=== PATIENT | male | born 1960 | race Hispanic/Latino ===

== ENCOUNTER 2017-10-28 05:05 | Emergency (ER) | payer OTHER ==
--- OUTSIDE RECORDS SUMMARY | 2017-10-28 05:07 | XMS REPORT | Clinical Summary ---
:[address] [facility] Address [address] [place] [address] Phone Care Team Providers Name Role Phone Unavailable Primary Care Provider Unavailable Allergies No Known Allergies Current Medications Prescription Sig. Disp. Refills Start Date End Date Status levothyroxine Take 50 mcg by Active (SYNTHROID, mouth Every LEVOTHROID) 50 MCG morning on an tablet empty stomach. atorvastatin Take 1 tablet (20 30 tablet 0 10/01/2016 10/01/2017 (LIPITOR) 20 MG mg total) by mouth tablet nightly. budesonide Take 2 mLs (0.5 mg 60 mL 0 10/01/2016 10/01/2017 (PULMICORT) 0.5 mg/2 total) by mL nebulizer nebulization 2 solution (two) times daily. bumetanide (BUMEX) 2 Take 1 tablet (2 30 tablet 0 10/01/2016 10/01/2017 MG tablet mg total) by mouth daily. ipratropium-albutero Take 3 mLs by 90 ampule 0 10/01/2016 09/26/2017 l (DUO-NEB) 0.5 mg-3 nebulization 4 mg(2.5 mg base)/3 mL (four) times daily nebulizer solution for 360 days. carvedilol (COREG) Take 1 tablet 60 tablet 0 10/01/2016 10/01/2017 3.125 MG tablet (3.125 mg total) by mouth 2 (two) times daily with breakfast and dinner. Active Problems Problem Noted Date CHF (congestive heart failure), NYHA class III, acute on chronic, 10/03/2016 diastolic (HCC) Hypotension 09/24/2016 Hypovolemia 09/24/2016 TR (tricuspid regurgitation) 09/23/2016 Right ventricular dysfunction 09/23/2016 Acute pulmonary insufficiency following thoracic surgery (HCC) 09/23/2016 Acute blood loss as cause of postoperative anemia 09/23/2016 S/P tricuspid valve replacement 09/23/2016 Pulmonary hyperinflation 09/11/2016 Pulmonary regurgitation 09/11/2016 Tricuspid regurgitation 09/11/2016 Thrombocytopenia (HCC) 09/06/2016 Acute congestive heart failure (HCC) 09/06/2016 Community acquired bacterial pneumonia 09/06/2016 Acute respiratory insufficiency 09/06/2016 Acute kidney injury (HCC) 09/06/2016 Hyperkalemia 09/06/2016 Atrial fibrillation (HCC) 09/06/2016 Macrocytic anemia 09/06/2016 Coronary artery disease involving [place] heart without angina pectoris 2016 Non morbid obesity 09/06/2016 Chest pain, unspecified type 09/05/2016 Social History Tobacco Use Types Packs/Day Years Used Date Unknown If Ever Smoked Alcohol Use Drinks/Week oz/Week Comments Yes Sex Assigned at Date Recorded Not on file Last Filed Vital Signs Not on file Plan of Treatment Not on file Implants Implanted Type Area Senior Materials Scientist Device Expiration Model / Identifier Date Serial / Lot Patch Vasc [place] 1.65mm 1x6in [id number] - [id number] Graft/Patc N/A: [id number] / Implanted: Qty: 1 on 09/23/2016 by Adam Sullivan MD Chest BARD: PERIPHERAL / VASC [id number] Valve Mitrl [place] Ii 33mm - [id number] Valves N/A: [employer]:STRUCT 02/17 [id number] / Implanted: Qty: 1 on 09/23/2016 by Adam Sullivan MD Chest URAL HEART [id number] / Results ARRYTHMIA IMPLANT REPORT - SCAN (03/05/2017 7:40 AM)Only the most recent of2 resultswithin the time period is included.after 10/27/2016
--- OUTSIDE RECORDS SUMMARY | 2017-10-28 05:12 | XMS REPORT ---
:1960 Author Organization [facility] Address [address] [place] [address] Dr. Powers [address] [place] [id number] Care Team Providers Name Role Phone INGAABILIO Unavailable Unavailable Problems This patient has no known problems. Allergies, Adverse Reactions, Alerts This patient has no known allergies or adverse reactions. Medications This patient has no known medications. Results Test Description Test Time Test Comments Text Results Atomic Results Result Comments POCT-GLUCOSE METER 2016-10-03 12:36:00 Test Item Value Reference Range Comments POC-GLUCOSE METER (BEAKER) (test 121 mg/dL 70-110 TESTED AT [address] amik=8627) [facility] [address] POCT-GLUCOSE [id number] 12:00:00 Test Item Value Reference Range Comments POC-GLUCOSE METER (BEAKER) 118 mg/dL 70-110 TESTED AT [address] (test gzfb=1152) [facility] [address] CBC W/PLT COUNT & AUTO [id number] 11:55:00 Test Item Value Reference Range Comments WHITE BLOOD CELL COUNT (BEAKER) (test ijjf=852) 8.9 K/ L 4.0-10.0 RED BLOOD CELL COUNT (BEAKER) (test yvoz=805) 2.79 M/ L 4.20-5.80 HEMOGLOBIN (BEAKER) (test vwjo=123) 9.2 GM/DL 13.0-16.8 HEMATOCRIT (BEAKER) (test ztvw=492) 27.1 % 40.0-50.0 MEAN CORPUSCULAR VOLUME (BEAKER) (test knpi=171) 97.1 fL 82.0-98.0 MEAN CORPUSCULAR HEMOGLOBIN (BEAKER) (test 33.1 pg 27.0-33.0 vodi=609) MEAN CORPUSCULAR HEMOGLOBIN CONC (BEAKER) (test 34.1 GM/DL 32.0-36.0 ddor=022) RED CELL DISTRIBUTION WIDTH (BEAKER) (test 15.5 % 10.3-14.2 ogwe=800) PLATELET COUNT (BEAKER) (test jswl=710) 29 K/CU MM 150-430 MEAN PLATELET VOLUME (BEAKER) (test zhks=027) 9.4 fL 6.5-10.5 NUCLEATED RED BLOOD CELLS (BEAKER) (test 0 /100 WBC 0-0 xspp=677) NEUTROPHILS RELATIVE PERCENT (BEAKER) (test 87 % yglq=944) LYMPHOCYTES RELATIVE PERCENT (BEAKER) (test 5 % mwmp=817) MONOCYTES RELATIVE PERCENT (BEAKER) (test 8 % mbmh=709) EOSINOPHILS RELATIVE PERCENT (BEAKER) (test 1 % drrx=898) BASOPHILS RELATIVE PERCENT (BEAKER) (test 0 % rmlo=930) NEUTROPHILS ABSOLUTE COUNT (BEAKER) (test 7.73 K/ L 1.80-8.00 tjch=319) LYMPHOCYTES ABSOLUTE COUNT (BEAKER) (test 0.42 K/ L 1.48-4.50 vkdo=295) MONOCYTES ABSOLUTE COUNT (BEAKER) (test eovh=406) 0.73 K/ L 0.00-1.30 EOSINOPHILS ABSOLUTE COUNT (BEAKER) (test 0.05 K/ L 0.00-0.50 hhyl=332) BASOPHILS ABSOLUTE COUNT (BEAKER) (test boxp=580) 0.00 K/ L 0.00-0.20 0.00POCT-GLUCOSE [id number] 07:54:00 Test Item Value Reference Range Comments POC-GLUCOSE METER (BEAKER) 94 mg/dL 70-110 TESTED AT [address] (test qyns=6408) [facility] [address] POCT-GLUCOSE [id number] 22:14:00 Test Item Value Reference Range Comments POC-GLUCOSE METER (BEAKER) 221 mg/dL 70-110 TESTED AT [address] (test tuce=1124) [facility] [address] POCT-GLUCOSE [id number] 18:29:00 Test Item Value Reference Range Comments POC-GLUCOSE METER (BEAKER) 144 mg/dL 70-110 TESTED AT [address] (test gvkj=6991) [facility] [address] POCT-GLUCOSE [id number] 12:57:00 Test Item Value Reference Range Comments POC-GLUCOSE METER (BEAKER) 195 mg/dL 70-[address] [facility] [address] [facility] (test euye=7184) [place] [address] CBC W/PLT COUNT & AUTO [id number] 08:36:00 Test Item Value Reference Range Comments WHITE BLOOD CELL COUNT (BEAKER) (test nehv=248) 11.1 K/ L 4.0-10.0 RED BLOOD CELL COUNT (BEAKER) (test ygha=293) 2.68 M/ L 4.20-5.80 HEMOGLOBIN (BEAKER) (test xgse=363) 9.0 GM/DL 13.0-16.8 HEMATOCRIT (BEAKER) (test uszf=588) 26.5 % 40.0-50.0 MEAN CORPUSCULAR VOLUME (BEAKER) (test mdmx=627) 98.7 fL 82.0-98.0 MEAN CORPUSCULAR HEMOGLOBIN (BEAKER) (test 33.5 pg 27.0-33.0 fejd=868) MEAN CORPUSCULAR HEMOGLOBIN CONC (BEAKER) (test 34.0 GM/DL 32.0-36.0 yhkj=054) RED CELL DISTRIBUTION WIDTH (BEAKER) (test 15.3 % 10.3-14.2 qsha=838) PLATELET COUNT (BEAKER) (test ievx=653) 30 K/CU MM 150-430 MEAN PLATELET VOLUME (BEAKER) (test ljlm=614) 8.7 fL 6.5-10.5 NUCLEATED RED BLOOD CELLS (BEAKER) (test 0 /100 WBC 0-0 scfg=146) NEUTROPHILS RELATIVE PERCENT (BEAKER) (test 85 % fgzt=189) LYMPHOCYTES RELATIVE PERCENT (BEAKER) (test 5 % pffn=973) MONOCYTES RELATIVE PERCENT (BEAKER) (test 9 % cvks=376) EOSINOPHILS RELATIVE PERCENT (BEAKER) (test 0 % kjzo=213) BASOPHILS RELATIVE PERCENT (BEAKER) (test 0 % bmjn=727) NEUTROPHILS ABSOLUTE COUNT (BEAKER) (test 9.48 K/ L 1.80-8.00 jqdb=688) LYMPHOCYTES ABSOLUTE COUNT (BEAKER) (test 0.56 K/ L 1.48-4.50 xqnj=554) MONOCYTES ABSOLUTE COUNT (BEAKER) (test kzeh=209) 1.05 K/ L 0.00-1.30 EOSINOPHILS ABSOLUTE COUNT (BEAKER) (test 0.05 K/ L 0.00-0.50 qflq=444) BASOPHILS ABSOLUTE COUNT (BEAKER) (test uegj=779) 0.00 K/ L 0.00-0.20 0.00POCT-GLUCOSE [id number] 08:26:00 Test Item Value Reference Range Comments POC-GLUCOSE METER (BEAKER) 107 mg/dL 70-[address] [facility] [address] [facility] (test hflw=1356) [place] [address] PROTHROMBIN [id number] 05:20:00 Test Item Value Reference Range Comments PROTIME (BEAKER) (test kojy=187) 17.0 seconds 11.7-14.7 INR (BEAKER) (test wgmz=947) 1.4 <=5.9 RECOMMENDED COUMADIN/WARFARIN INR THERAPY RANGESSTANDARD DOSE: 2.0 - 3.0 Includes: PROPHYLAXIS forvenous thrombosis, systemic embolization; TREATMENT for venous thrombosis and/or pulmonary embolus.HIGH RISK: Target INR is 2.5-3.5 for patients with mechanical heart valves.[id number] 05:20:00 Test Item Value Reference Range Comments PARTIAL THROMBOPLASTIN TIME (BEAKER) (test 27.8 seconds 22.5-36.0 jcfb=653) [id number] 05:20:00 Test Item Value Reference Range Comments FIBRINOGEN LEVEL (BEAKER) (test okwg=459) 183 mg/dl 225-434 B-TYPE NATRIURETIC FACTOR (BNP)2016-09-30 05:11:00 Test Item Value Reference Range Comments B-TYPE NATRIURETIC PEPTIDE (BEAKER) (test 256 pg/mL 0-100 pmou=686) BASIC METABOLIC [id number] 05:09:00 Test Item Value Reference Range Comments SODIUM (BEAKER) (test 133 meq/L 136-145 znks=053) POTASSIUM (BEAKER) (test 3.5 meq/L 3.5-5.1 fxtr=556) CHLORIDE (BEAKER) (test 93 meq/L 98-107 dgpt=046) CO2 (BEAKER) (test 30 meq/L 22-29 mefc=126) BLOOD UREA NITROGEN 40 mg/dL 7-21 (BEAKER) (test clfo=559) CREATININE (BEAKER) (test 0.85 mg/dL 0.57-1.25 chah=210) GLUCOSE RANDOM (BEAKER) 143 mg/dL 70-105 (test xpbe=457) CALCIUM (BEAKER) (test 8.5 mg/dL 8.4-10.2 idvg=680) EGFR (BEAKER) (test mL/min/1.73 sq m INSUFFICIENT CLINICAL DATA vweh=6814) TO CALCULATE ESTIMATED GFR. POCT-GLUCOSE [id number] 21:25:00 Test Item Value Reference Range Comments POC-GLUCOSE METER (BEAKER) 139 mg/dL 70-110 TESTED AT [address] (test cyqx=2001) [facility] [address] POCT-GLUCOSE [id number] 17:50:00 Test Item Value Reference Range Comments POC-GLUCOSE METER (BEAKER) 173 mg/dL 70-110 TESTED AT [address] (test nkzc=0233) [facility] [address] POCT-GLUCOSE [id number] 08:56:00 Test Item Value Reference Range Comments POC-GLUCOSE METER (BEAKER) 155 mg/dL 70-110 TESTED AT [address] (test limm=7544) [facility] [address] CBC W/PLT COUNT & AUTO [id number] 04:54:00 Test Item Value Reference Range Comments WHITE BLOOD CELL COUNT (BEAKER) (test wafp=735) 8.7 K/ L 4.0-10.0 RED BLOOD CELL COUNT (BEAKER) (test vypl=979) 2.72 M/ L 4.20-5.80 HEMOGLOBIN (BEAKER) (test anur=622) 9.4 GM/DL 13.0-16.8 HEMATOCRIT (BEAKER) (test kwhw=253) 27.0 % 40.0-50.0 MEAN CORPUSCULAR VOLUME (BEAKER) (test dkyr=171) 99.4 fL 82.0-98.0 MEAN CORPUSCULAR HEMOGLOBIN (BEAKER) (test 34.6 pg 27.0-33.0 ltgi=423) MEAN CORPUSCULAR HEMOGLOBIN CONC (BEAKER) (test 34.8 GM/DL 32.0-36.0 ahqz=711) RED CELL DISTRIBUTION WIDTH (BEAKER) (test 15.3 % 10.3-14.2 gbme=478) PLATELET COUNT (BEAKER) (test kpvg=439) 24 K/CU MM 150-430 MEAN PLATELET VOLUME (BEAKER) (test bpzb=620) 9.9 fL 6.5-10.5 NUCLEATED RED BLOOD CELLS (BEAKER) (test 0 /100 WBC 0-0 jhwr=041) NEUTROPHILS RELATIVE PERCENT (BEAKER) (test 89 % xgfu=813) LYMPHOCYTES RELATIVE PERCENT (BEAKER) (test 4 % xadi=994) MONOCYTES RELATIVE PERCENT (BEAKER) (test 8 % tjep=028) EOSINOPHILS RELATIVE PERCENT (BEAKER) (test 0 % iunt=129) BASOPHILS RELATIVE PERCENT (BEAKER) (test 0 % xpmf=742) NEUTROPHILS ABSOLUTE COUNT (BEAKER) (test 7.72 K/ L 1.80-8.00 nmow=297) LYMPHOCYTES ABSOLUTE COUNT (BEAKER) (test 0.31 K/ L 1.48-4.50 zjqw=282) MONOCYTES ABSOLUTE COUNT (BEAKER) (test wuhd=240) 0.68 K/ L 0.00-1.30 EOSINOPHILS ABSOLUTE COUNT (BEAKER) (test 0.02 K/ L 0.00-0.50 vnbj=290) BASOPHILS ABSOLUTE COUNT (BEAKER) (test zbtn=672) 0.00 K/ L 0.00-0.20 0.00POCT-GLUCOSE [id number] 22:11:00 Test Item Value Reference Range Comments POC-GLUCOSE METER (BEAKER) 295 mg/dL 70-110 TESTED AT [address] (test qfum=8042) [facility] [address] POCT-GLUCOSE [id number] 16:50:00 Test Item Value Reference Range Comments POC-GLUCOSE METER (BEAKER) 149 mg/dL 70-110 TESTED AT [address] (test zhnn=4630) [facility] [address] [id number] 15:04:00 Test Item Value Reference Range Comments POTASSIUM (BEAKER) (test yree=891) 4.0 meq/L 3.5-5.1 [id number] 15:04:00 Test Item Value Reference Range Comments MAGNESIUM (BEAKER) (test xjbm=254) 2.7 mg/dL 1.6-2.6 POCT-GLUCOSE [id number] 12:34:00 Test Item Value Reference Range Comments POC-GLUCOSE METER (BEAKER) 128 mg/dL 70-110 TESTED AT [address] (test iipe=1299) [facility] [address] POCT-GLUCOSE [id number] 11:39:00 Test Item Value Reference Range Comments POC-GLUCOSE METER (BEAKER) 120 mg/dL 70-110 TESTED AT [address] (test zmiq=0473) [place] [id number] POCT-GLUCOSE [id number] 07:51:00 Test Item Value Reference Range Comments POC-GLUCOSE METER (BEAKER) 87 mg/dL 70-110 TESTED AT [address] (test kgep=7504) [facility] [address] BLOOD GAS, [id number] 05:59:00 Test Item Value Reference Range Comments PH ARTERIAL (BEAKER) (test imxu=101) 7.41 7.35-7.45 PCO2 ARTERIAL (BEAKER) (test opvh=383) 60 mmHg 35-45 PO2 ARTERIAL (BEAKER) (test tlmr=881) 179 mmHg 80-90 O2 SATURATION ARTERIAL (BEAKER) (test xppq=145) 99.2 % 96.0-97.0 HCO3 ARTERIAL (BEAKER) (test rowp=243) 38 mmol/L 21-29 BASE EXCESS ARTERIAL (BEAKER) (test auxx=599) 11.6 mmol/L -2.0-3.0 PATIENT TEMPERATURE (BEAKER) (test xhry=4148) 36.5 C FIO2 (BEAKER) (test lydq=1880) 50.0 % CBC W/PLT COUNT & AUTO [id number] 05:40:00 Test Item Value Reference Range Comments WHITE BLOOD CELL COUNT (BEAKER) (test plpv=477) 9.1 K/ L 4.0-10.0 RED BLOOD CELL COUNT (BEAKER) (test nmev=577) 2.62 M/ L 4.20-5.80 HEMOGLOBIN (BEAKER) (test sibe=105) 8.7 GM/DL 13.0-16.8 HEMATOCRIT (BEAKER) (test hsld=041) 25.9 % 40.0-50.0 MEAN CORPUSCULAR VOLUME (BEAKER) (test ntfl=953) 98.8 fL 82.0-98.0 MEAN CORPUSCULAR HEMOGLOBIN (BEAKER) (test 33.0 pg 27.0-33.0 lzlt=773) MEAN CORPUSCULAR HEMOGLOBIN CONC (BEAKER) (test 33.4 GM/DL 32.0-36.0 xmth=676) RED CELL DISTRIBUTION WIDTH (BEAKER) (test 15.9 % 10.3-14.2 jsyw=731) PLATELET COUNT (BEAKER) (test lelk=285) 30 K/CU MM 150-430 MEAN PLATELET VOLUME (BEAKER) (test lnla=890) 9.4 fL 6.5-10.5 NUCLEATED RED BLOOD CELLS (BEAKER) (test 0 /100 WBC 0-0 hwlc=264) NEUTROPHILS RELATIVE PERCENT (BEAKER) (test 87 % ytvs=279) LYMPHOCYTES RELATIVE PERCENT (BEAKER) (test 4 % iekz=532) MONOCYTES RELATIVE PERCENT (BEAKER) (test 9 % krdm=674) EOSINOPHILS RELATIVE PERCENT (BEAKER) (test 0 % ajcv=915) BASOPHILS RELATIVE PERCENT (BEAKER) (test 0 % bbro=429) NEUTROPHILS ABSOLUTE COUNT (BEAKER) (test 7.93 K/ L 1.80-8.00 bcbf=248) LYMPHOCYTES ABSOLUTE COUNT (BEAKER) (test 0.32 K/ L 1.48-4.50 niid=106) MONOCYTES ABSOLUTE COUNT (BEAKER) (test gudj=124) 0.81 K/ L 0.00-1.30 EOSINOPHILS ABSOLUTE COUNT (BEAKER) (test 0.01 K/ L 0.00-0.50 soiv=790) BASOPHILS ABSOLUTE COUNT (BEAKER) (test tyvj=086) 0.01 K/ L 0.00-0.20 0.00BASI METABOLIC [id number] 04:53:00 Test Item Value Reference Range Comments SODIUM (BEAKER) (test 135 meq/L 136-145 zxax=932) POTASSIUM (BEAKER) (test 4.2 meq/L 3.5-5.1 rbds=486) CHLORIDE (BEAKER) (test 92 meq/L 98-107 aytq=749) CO2 (BEAKER) (test 36 meq/L 22-29 xtuq=644) BLOOD UREA NITROGEN 48 mg/dL 7-21 (BEAKER) (test cagk=588) CREATININE (BEAKER) (test 0.89 mg/dL 0.57-1.25 mfst=501) GLUCOSE RANDOM (BEAKER) 105 mg/dL 70-105 (test mifa=275) CALCIUM (BEAKER) (test 8.4 mg/dL 8.4-10.2 haqh=434) EGFR (BEAKER) (test mL/min/1.73 sq m INSUFFICIENT CLINICAL DATA txyc=4322) TO CALCULATE ESTIMATED GFR. Check Serum Magnesium level 2 hours after IV magnesium replacement.[id number] 04:43:00 Test Item Value Reference Range Comments POTASSIUM (BEAKER) (test clgg=085) 4.2 meq/L 3.5-5.1 Check Serum Magnesium level 2 hours after IV magnesium replacement.[id number] -[id number] 04:43:00 Test Item Value Reference Range Comments MAGNESIUM (BEAKER) (test bkom=371) 2.5 mg/dL 1.6-2.6 Check Serum Magnesium level 2 hours after IV magnesium replacement.HEPATIC FUNCTION [id number] 04:43:00 Test Item Value Reference Range Comments TOTAL PROTEIN (BEAKER) (test pvxk=829) 6.4 gm/dL 6.0-8.3 ALBUMIN (BEAKER) (test rlzl=7102) 3.4 g/dL 3.5-5.0 BILIRUBIN TOTAL (BEAKER) (test lncb=658) 1.6 mg/dL 0.2-1.2 BILIRUBIN DIRECT (BEAKER) (test dgqb=224) 0.9 mg/dL 0.1-0.5 ALKALINE PHOSPHATASE (BEAKER) (test ltom=875) 100 U/L 40-150 AST (SGOT) (BEAKER) (test rfna=669) 27 U/L 5-34 ALT (SGPT) (BEAKER) (test lzmg=206) 27 U/L 6-55 Check Serum Magnesium level 2 hours after IV magnesium replacement.PROTHROMBIN [id number] 04:33:00 Test Item Value Reference Range Comments PROTIME (BEAKER) (test crbl=378) 16.6 seconds 11.7-14.7 INR (BEAKER) (test jtvg=089) 1.4 <=5.9 RECOMMENDED COUMADIN/WARFARIN INR THERAPY RANGESSTANDARD DOSE: 2.0 - 3.0 Includes: PROPHYLAXIS forvenous thrombosis, systemic embolization; TREATMENT for venous thrombosis and/or pulmonary embolus.HIGH RISK: Target INR is 2.5-3.5 for patients with mechanical heart valves.[id number] 01:32:00 Test Item Value Reference Range Comments POTASSIUM (BEAKER) (test zdxp=976) 4.0 meq/L 3.5-5.1 Check Serum Magnesium level 2 hours after IV magnesium replacement.[id number] -04-09 01:32:00 Test Item Value Reference Range Comments MAGNESIUM (BEAKER) (test omey=764) 2.6 mg/dL 1.6-2.6 Check Serum Magnesium level 2 hours after IV magnesium replacement.POCT-GLUCOSE [id number] 01:04:00 Test Item Value Reference Range Comments POC-GLUCOSE METER (BEAKER) 142 mg/dL 70-110 TESTED AT [address] (test quev=3349) [place] [address] [id number] 18:48:00 Test Item Value Reference Range Comments POTASSIUM (BEAKER) (test yhqw=478) 4.5 meq/L 3.5-5.1 Check Serum Magnesium level 2 hours after IV magnesium replacement.[id number] -04-08 18:48:00 Test Item Value Reference Range Comments MAGNESIUM (BEAKER) (test vglm=092) 2.5 mg/dL 1.6-2.6 Check Serum Magnesium level 2 hours after IV magnesium replacement.CALCIUM, [id number] 18:33:00 Test Item Value Reference Range Comments CALCIUM IONIZED (BEAKER) (test boyh=815) 1.13 mmol/L 1.12-1.27 PH, BLOOD (BEAKER) (test swba=2113) 7.39 Check serum Ionized Calcium level after 4 hours after IV Calcium replacement.POCT-GLUCOSE [id number] 17:19:00 Test Item Value Reference Range Comments POC-GLUCOSE METER (BEAKER) 169 mg/dL 70-110 TESTED AT [address] (test dnmq=9852) [place] [address] [id number] 13:12:00 Test Item Value Reference Range Comments POTASSIUM (BEAKER) (test kmva=347) 3.6 meq/L 3.5-5.1 Check Serum Magnesium level 2 hours after IV magnesium replacement.[id number] -04-08 13:12:00 Test Item Value Reference Range Comments MAGNESIUM (BEAKER) (test wnxk=825) 2.1 mg/dL 1.6-2.6 Check Serum Magnesium level 2 hours after IV magnesium replacement.POCT-GLUCOSE [id number] 12:25:00 Test Item Value Reference Range Comments POC-GLUCOSE METER (BEAKER) 149 mg/dL 70-110 TESTED AT [address] (test rzfi=8704) [place] [address] CALCIUM, [id number] 12:12:00 Test Item Value Reference Range Comments CALCIUM IONIZED (BEAKER) (test tbbp=309) 1.07 mmol/L 1.12-1.27 PH, BLOOD (BEAKER) (test hqck=5119) 7.40 Check serum Ionized Calcium level after 4 hours after IV Calcium replacement.POCT-GLUCOSE [id number] 07:51:00 Test Item Value Reference Range Comments POC-GLUCOSE METER (BEAKER) 92 mg/dL 70-110 TESTED AT [address] (test uazd=8923) [place] [id number] BLOOD GAS, [id number] 05:03:00 Test Item Value Reference Range Comments PH ARTERIAL (BEAKER) (test hten=075) 7.47 7.35-7.45 PCO2 ARTERIAL (BEAKER) (test wiwc=789) 58 mmHg 35-45 PO2 ARTERIAL (BEAKER) (test wzyk=056) 186 mmHg 80-90 O2 SATURATION ARTERIAL (BEAKER) (test advz=731) 99.3 % 96.0-97.0 HCO3 ARTERIAL (BEAKER) (test ykgc=196) 41 mmol/L 21-29 BASE EXCESS ARTERIAL (BEAKER) (test yyei=268) 15.6 mmol/L -2.0-3.0 PATIENT TEMPERATURE (BEAKER) (test rgmi=4121) 37.0 C FIO2 (BEAKER) (test mhar=3378) 50.0 % CBC W/PLT COUNT & AUTO [id number] 04:18:00 Test Item Value Reference Range Comments WHITE BLOOD CELL COUNT (BEAKER) (test dczr=035) 11.8 K/ L 4.0-10.0 RED BLOOD CELL COUNT (BEAKER) (test oakp=816) 2.65 M/ L 4.20-5.80 HEMOGLOBIN (BEAKER) (test wrui=438) 8.7 GM/DL 13.0-16.8 HEMATOCRIT (BEAKER) (test kivh=203) 26.2 % 40.0-50.0 MEAN CORPUSCULAR VOLUME (BEAKER) (test gnka=887) 98.7 fL 82.0-98.0 MEAN CORPUSCULAR HEMOGLOBIN (BEAKER) (test 32.8 pg 27.0-33.0 ukcc=974) MEAN CORPUSCULAR HEMOGLOBIN CONC (BEAKER) (test 33.2 GM/DL 32.0-36.0 jjqj=197) RED CELL DISTRIBUTION WIDTH (BEAKER) (test 15.7 % 10.3-14.2 tnus=608) PLATELET COUNT (BEAKER) (test czpa=357) 42 K/CU MM 150-430 MEAN PLATELET VOLUME (BEAKER) (test yevj=738) 8.2 fL 6.5-10.5 NUCLEATED RED BLOOD CELLS (BEAKER) (test 0 /100 WBC 0-0 vgga=243) NEUTROPHILS RELATIVE PERCENT (BEAKER) (test 90 % llxu=095) LYMPHOCYTES RELATIVE PERCENT (BEAKER) (test 3 % wfrt=374) MONOCYTES RELATIVE PERCENT (BEAKER) (test 8 % irru=079) EOSINOPHILS RELATIVE PERCENT (BEAKER) (test 0 % cvmd=574) BASOPHILS RELATIVE PERCENT (BEAKER) (test 0 % uhjo=155) NEUTROPHILS ABSOLUTE COUNT (BEAKER) (test 10.60 K/ L 1.80-8.00 utlp=102) LYMPHOCYTES ABSOLUTE COUNT (BEAKER) (test 0.32 K/ L 1.48-4.50 ssbc=725) MONOCYTES ABSOLUTE COUNT (BEAKER) (test rdxd=180) 0.91 K/ L 0.00-1.30 EOSINOPHILS ABSOLUTE COUNT (BEAKER) (test 0.01 K/ L 0.00-0.50 fayi=179) BASOPHILS ABSOLUTE COUNT (BEAKER) (test colg=780) 0.00 K/ L 0.00-0.20 0.00BASI METABOLIC [id number] 04:12:00 Test Item Value Reference Range Comments SODIUM (BEAKER) (test 139 meq/L 136-145 ysmx=010) POTASSIUM (BEAKER) (test 3.9 meq/L 3.5-5.1 dukg=985) CHLORIDE (BEAKER) (test 92 meq/L 98-107 yepv=950) CO2 (BEAKER) (test 39 meq/L 22-29 lxlt=269) BLOOD UREA NITROGEN 44 mg/dL 7-21 (BEAKER) (test outx=617) CREATININE (BEAKER) (test 0.95 mg/dL 0.57-1.25 dbmw=607) GLUCOSE RANDOM (BEAKER) 104 mg/dL 70-105 (test vccm=765) CALCIUM (BEAKER) (test 8.7 mg/dL 8.4-10.2 kesn=575) EGFR (BEAKER) (test mL/min/1.73 sq m INSUFFICIENT CLINICAL DATA klzb=4173) TO CALCULATE ESTIMATED GFR. [id number] 04:04:00 Test Item Value Reference Range Comments POTASSIUM (BEAKER) (test ovwf=539) 3.9 meq/L 3.5-5.1 [id number] 04:04:00 Test Item Value Reference Range Comments MAGNESIUM (BEAKER) (test pzmz=204) 2.4 mg/dL 1.6-2.6 HEPATIC FUNCTION [id number] 04:04:00 Test Item Value Reference Range Comments TOTAL PROTEIN (BEAKER) (test xale=949) 6.6 gm/dL 6.0-8.3 ALBUMIN (BEAKER) (test kzag=4750) 3.5 g/dL 3.5-5.0 BILIRUBIN TOTAL (BEAKER) (test qwqz=262) 1.7 mg/dL 0.2-1.2 BILIRUBIN DIRECT (BEAKER) (test eabh=806) 0.9 mg/dL 0.1-0.5 ALKALINE PHOSPHATASE (BEAKER) (test nfdx=686) 98 U/L 40-150 AST (SGOT) (BEAKER) (test rdrg=571) 33 U/L 5-34 ALT (SGPT) (BEAKER) (test jjgz=882) 26 U/L 6-55 PROTHROMBIN [id number] 03:49:00 Test Item Value Reference Range Comments PROTIME (BEAKER) (test kihi=589) 16.3 seconds 11.7-14.7 INR (BEAKER) (test mbhl=843) 1.3 <=5.9 RECOMMENDED COUMADIN/WARFARIN INR THERAPY RANGESSTANDARD DOSE: 2.0 - 3.0 Includes: PROPHYLAXIS forvenous thrombosis, systemic embolization; TREATMENT for venous thrombosis and/or pulmonary embolus.HIGH RISK: Target INR is 2.5-3.5 for patients with mechanical heart valves.BASIC METABOLIC [id number] 00:47: 00 Test Item Value Reference Range Comments SODIUM (BEAKER) (test 137 meq/L 136-145 dlko=256) POTASSIUM (BEAKER) (test 4.0 meq/L 3.5-5.1 ympj=028) CHLORIDE (BEAKER) (test 93 meq/L 98-107 cmfx=283) CO2 (BEAKER) (test 36 meq/L 22-29 yxjy=569) BLOOD UREA NITROGEN 45 mg/dL 7-21 (BEAKER) (test rjrf=102) CREATININE (BEAKER) (test 1.03 mg/dL 0.57-1.25 omoj=142) GLUCOSE RANDOM (BEAKER) 146 mg/dL 70-105 (test lmct=042) CALCIUM (BEAKER) (test 7.9 mg/dL 8.4-10.2 dymn=371) EGFR (BEAKER) (test mL/min/1.73 sq m INSUFFICIENT CLINICAL DATA mrpj=3205) TO CALCULATE ESTIMATED GFR. Check Serum Magnesium level 2 hours after IV magnesium replacement.CBC W/PLT COUNT & AUTO [id number] 00:10:00 Test Item Value Reference Range Comments WHITE BLOOD CELL COUNT (BEAKER) (test gmko=723) 11.3 K/ L 4.0-10.0 RED BLOOD CELL COUNT (BEAKER) (test lsem=472) 2.58 M/ L 4.20-5.80 HEMOGLOBIN (BEAKER) (test ivnr=707) 8.5 GM/DL 13.0-16.8 HEMATOCRIT (BEAKER) (test mgru=960) 25.5 % 40.0-50.0 MEAN CORPUSCULAR VOLUME (BEAKER) (test lrpe=886) 99.0 fL 82.0-98.0 MEAN CORPUSCULAR HEMOGLOBIN (BEAKER) (test 32.9 pg 27.0-33.0 aatx=040) MEAN CORPUSCULAR HEMOGLOBIN CONC (BEAKER) (test 33.3 GM/DL 32.0-36.0 rcvo=589) RED CELL DISTRIBUTION WIDTH (BEAKER) (test 15.6 % 10.3-14.2 hptn=209) PLATELET COUNT (BEAKER) (test afzp=577) 40 K/CU MM 150-430 MEAN PLATELET VOLUME (BEAKER) (test lqlf=860) 8.4 fL 6.5-10.5 NUCLEATED RED BLOOD CELLS (BEAKER) (test 0 /100 WBC 0-0 aanl=084) NEUTROPHILS RELATIVE PERCENT (BEAKER) (test 90 % cjmh=857) LYMPHOCYTES RELATIVE PERCENT (BEAKER) (test 2 % ftos=755) MONOCYTES RELATIVE PERCENT (BEAKER) (test 7 % uvyf=142) EOSINOPHILS RELATIVE PERCENT (BEAKER) (test 0 % bbaw=904) BASOPHILS RELATIVE PERCENT (BEAKER) (test 1 % zvrh=719) NEUTROPHILS ABSOLUTE COUNT (BEAKER) (test 10.20 K/ L 1.80-8.00 fsky=507) LYMPHOCYTES ABSOLUTE COUNT (BEAKER) (test 0.19 K/ L 1.48-4.50 yntv=781) MONOCYTES ABSOLUTE COUNT (BEAKER) (test ruch=527) 0.83 K/ L 0.00-1.30 EOSINOPHILS ABSOLUTE COUNT (BEAKER) (test 0.01 K/ L 0.00-0.50 biio=766) BASOPHILS ABSOLUTE COUNT (BEAKER) (test vcan=029) 0.07 K/ L 0.00-0.20 0.00CALCIUM, [id number] 00:07:00 Test Item Value Reference Range Comments CALCIUM IONIZED (BEAKER) (test lceo=734) 1.06 mmol/L 1.12-1.27 PH, BLOOD (BEAKER) (test skjc=5445) 7.38 [id number] 23:53:00 Test Item Value Reference Range Comments POTASSIUM (BEAKER) (test kcfp=848) 4.1 meq/L 3.5-5.1 Check Serum Magnesium level 2 hours after IV magnesium replacement.[id number] -[id number] 23:53:00 Test Item Value Reference Range Comments MAGNESIUM (BEAKER) (test ipql=782) 2.0 mg/dL 1.6-2.6 Check Serum Magnesium level 2 hours after IV magnesium replacement.POCT-GLUCOSE [id number] 22:39:00 Test Item Value Reference Range Comments POC-GLUCOSE METER (BEAKER) 209 mg/dL 70-[address] [facility] [address] [facility] (test nfaq=4767) [facility] [address] POCT-GLUCOSE [id number] 20:00:00 Test Item Value Reference Range Comments POC-GLUCOSE METER (BEAKER) 168 mg/dL 70-[address] [facility] [address] (test fclm=4758) [facility] [address] [id number] 18:48:00 Test Item Value Reference Range Comments POTASSIUM (BEAKER) (test lelh=913) 3.9 meq/L 3.5-5.1 Check Serum Magnesium level 2 hours after IV magnesium replacement.[id number] 18:48:00 Test Item Value Reference Range Comments MAGNESIUM (BEAKER) (test aabe=481) 2.2 mg/dL 1.6-2.6 Check Serum Magnesium level 2 hours after IV magnesium replacement.[id number] -04-07 12:21:00 Test Item Value Reference Range Comments POTASSIUM (BEAKER) (test mpwz=784) 3.5 meq/L 3.5-5.1 Check Serum Magnesium level 2 hours after IV magnesium replacement.[id number] -04-07 12:21:00 Test Item Value Reference Range Comments MAGNESIUM (BEAKER) (test chnp=374) 2.2 mg/dL 1.6-2.6 Check Serum Magnesium level 2 hours after IV magnesium replacement.LACTATE DEHYDROGENASE (LDH)2016-09-26 12:08:00 Test Item Value Reference Range Comments LACTATE DEHYDROGENASE (BEAKER) (test sgoq=658) 291 U/L 125-220 [id number] 12:06:00 Test Item Value Reference Range Comments D-DIMER QUANTITATIVE (BEAKER) (test kjvl=531) 9.38 MG/L FEU <0.50 Intended Use: The D-Dimer Assay can be used to aid in the diagnosis of Deep Vein Thrombosis (DVT) and Pulmonary Embolism Disease (PED).In patients with low pre-test probability, various studies concerning STA Liatest D-dimer test have reported that with a cutoff value of 0.50 MG/L FEU, the Negative Predictive Value (NPV) regarding the exclusion of thrombosis is within 95-100% range.[id number] 11:51:00 Test Item Value Reference Range Comments FIBRINOGEN LEVEL (BEAKER) (test geiu=878) 247 mg/dl 225-434 BLOOD GAS, [id number] 11:39:00 Test Item Value Reference Range Comments PH ARTERIAL (BEAKER) (test vwbc=806) 7.44 7.35-7.45 PCO2 ARTERIAL (BEAKER) (test sixz=961) 55 mmHg 35-45 PO2 ARTERIAL (BEAKER) (test qmct=312) 101 mmHg 80-90 O2 SATURATION ARTERIAL (BEAKER) (test coge=960) 97.8 % 96.0-97.0 HCO3 ARTERIAL (BEAKER) (test lrdo=860) 37 mmol/L 21-29 BASE EXCESS ARTERIAL (BEAKER) (test yciv=985) 11.2 mmol/L -2.0-3.0 PATIENT TEMPERATURE (BEAKER) (test cpfc=2435) 36.5 C FIO2 (BEAKER) (test hehf=1554) 36.0 % HEMOGLOBIN [id number] 08:13:00 Test Item Value Reference Range Comments HEMOGLOBIN A1C (BEAKER) (test hwjr=171) 5.5 % 4.3-6.1 BLOOD GAS, [id number] 07:04:00 Test Item Value Reference Range Comments PH ARTERIAL (BEAKER) (test gptn=752) 7.38 7.35-7.45 PCO2 ARTERIAL (BEAKER) (test hhsx=028) 60 mmHg 35-45 PO2 ARTERIAL (BEAKER) (test lycq=626) 293 mmHg 80-90 O2 SATURATION ARTERIAL (BEAKER) (test tyie=776) 99.6 % 96.0-97.0 HCO3 ARTERIAL (BEAKER) (test ivpz=633) 35 mmol/L 21-29 BASE EXCESS ARTERIAL (BEAKER) (test wsrl=298) 7.9 mmol/L -2.0-3.0 PATIENT TEMPERATURE (BEAKER) (test swdu=4224) 36.5 C FIO2 (BEAKER) (test yciw=5931) 60.0 % OXYGEN SATURATION, [id number] 06:13:00 Test Item Value Reference Range Comments O2 SATURATION (MEASURED) (BEAKER) (test uolk=2886) 89.5 % [id number] 05:30:00 Test Item Value Reference Range Comments MAGNESIUM (BEAKER) (test idbi=713) 2.1 mg/dL 1.6-2.6 HEPATIC FUNCTION [id number] 05:30:00 Test Item Value Reference Range Comments TOTAL PROTEIN (BEAKER) (test semf=805) 6.4 gm/dL 6.0-8.3 ALBUMIN (BEAKER) (test dfpg=2512) 3.5 g/dL 3.5-5.0 BILIRUBIN TOTAL (BEAKER) (test jxvm=973) 1.6 mg/dL 0.2-1.2 BILIRUBIN DIRECT (BEAKER) (test agel=749) 0.9 mg/dL 0.1-0.5 ALKALINE PHOSPHATASE (BEAKER) (test nwkz=473) 86 U/L 40-150 AST (SGOT) (BEAKER) (test ddbk=919) 38 U/L 5-34 ALT (SGPT) (BEAKER) (test hoex=359) 29 U/L 6-55 BASIC METABOLIC [id number] 05:30:00 Test Item Value Reference Range Comments SODIUM (BEAKER) (test 138 meq/L 136-145 pwaj=917) POTASSIUM (BEAKER) (test 4.1 meq/L 3.5-5.1 tklp=309) CHLORIDE (BEAKER) (test 98 meq/L 98-107 zado=361) CO2 (BEAKER) (test 31 meq/L 22-29 ffsi=218) BLOOD UREA NITROGEN 46 mg/dL 7-21 (BEAKER) (test fdnf=697) CREATININE (BEAKER) (test 1.06 mg/dL 0.57-1.25 pcrd=486) GLUCOSE RANDOM (BEAKER) 128 mg/dL 70-105 (test pmof=616) CALCIUM (BEAKER) (test 8.1 mg/dL 8.4-10.2 slhy=139) EGFR (BEAKER) (test mL/min/1.73 sq m INSUFFICIENT CLINICAL DATA ionz=4423) TO CALCULATE ESTIMATED GFR. CBC W/PLT COUNT & AUTO [id number] 05:18:00 Test Item Value Reference Range Comments WHITE BLOOD CELL COUNT (BEAKER) (test tkyh=628) 13.3 K/ L 4.0-10.0 RED BLOOD CELL COUNT (BEAKER) (test uvra=949) 2.68 M/ L 4.20-5.80 HEMOGLOBIN (BEAKER) (test gbmm=301) 8.6 GM/DL 13.0-16.8 HEMATOCRIT (BEAKER) (test vkxn=938) 26.3 % 40.0-50.0 MEAN CORPUSCULAR VOLUME (BEAKER) (test lfzv=008) 98.1 fL 82.0-98.0 MEAN CORPUSCULAR HEMOGLOBIN (BEAKER) (test 32.2 pg 27.0-33.0 vnes=305) MEAN CORPUSCULAR HEMOGLOBIN CONC (BEAKER) (test 32.8 GM/DL 32.0-36.0 fjgm=820) RED CELL DISTRIBUTION WIDTH (BEAKER) (test 15.5 % 10.3-14.2 lgpj=202) PLATELET COUNT (BEAKER) (test lxzq=173) 40 K/CU MM 150-430 MEAN PLATELET VOLUME (BEAKER) (test vims=794) 8.7 fL 6.5-10.5 NUCLEATED RED BLOOD CELLS (BEAKER) (test 0 /100 WBC 0-0 fttn=652) NEUTROPHILS RELATIVE PERCENT (BEAKER) (test 91 % dmza=772) LYMPHOCYTES RELATIVE PERCENT (BEAKER) (test 2 % swcn=708) MONOCYTES RELATIVE PERCENT (BEAKER) (test 7 % qbig=855) EOSINOPHILS RELATIVE PERCENT (BEAKER) (test 0 % enfy=655) BASOPHILS RELATIVE PERCENT (BEAKER) (test 0 % iorv=838) NEUTROPHILS ABSOLUTE COUNT (BEAKER) (test 12.10 K/ L 1.80-8.00 fqof=302) LYMPHOCYTES ABSOLUTE COUNT (BEAKER) (test 0.31 K/ L 1.48-4.50 wepm=150) MONOCYTES ABSOLUTE COUNT (BEAKER) (test hrex=254) 0.87 K/ L 0.00-1.30 EOSINOPHILS ABSOLUTE COUNT (BEAKER) (test 0.01 K/ L 0.00-0.50 oder=596) BASOPHILS ABSOLUTE COUNT (BEAKER) (test ciuo=350) 0.00 K/ L 0.00-0.20 0.00PROTHROMBIN [id number] 05:07:00 Test Item Value Reference Range Comments PROTIME (BEAKER) (test vcbh=852) 16.7 seconds 11.7-14.7 INR (BEAKER) (test zvhq=140) 1.4 <=5.9 RECOMMENDED COUMADIN/WARFARIN INR THERAPY RANGESSTANDARD DOSE: 2.0 - 3.0 Includes: PROPHYLAXIS forvenous thrombosis, systemic embolization; TREATMENT for venous thrombosis and/or pulmonary embolus.HIGH RISK: Target INR is 2.5-3.5 for patients with mechanical heart valves.BLOOD GAS, [id number] 23:30:00 Test Item Value Reference Range Comments PH ARTERIAL (BEAKER) (test xqab=554) 7.33 7.35-7.45 PCO2 ARTERIAL (BEAKER) (test asto=898) 60 mmHg 35-45 PO2 ARTERIAL (BEAKER) (test qnqu=662) 169 mmHg 80-90 O2 SATURATION ARTERIAL (BEAKER) (test vyck=478) 99.0 % 96.0-97.0 HCO3 ARTERIAL (BEAKER) (test zkjq=670) 31 mmol/L 21-29 BASE EXCESS ARTERIAL (BEAKER) (test ghcn=025) 4.2 mmol/L -2.0-3.0 PATIENT TEMPERATURE (BEAKER) (test oeqd=7276) 36.5 C FIO2 (BEAKER) (test fmji=8043) 36.0 % POTASSIUM-STAT [id number] 23:07:00 Test Item Value Reference Range Comments POTASSIUM (BEAKER) (test wugp=529) 4.3 meq/L 3.6-5.5 SODIUM NA-STAT [id number] 23:07:00 Test Item Value Reference Range Comments SODIUM (BEAKER) (test maat=007) 134 meq/L 135-148 HGB/HCT (H&H) - STAT [id number] 23:07:00 Test Item Value Reference Range Comments HEMOGLOBIN (BEAKER) (test bhgs=218) 9.5 g/dL 13.0-16.8 HEMATOCRIT (BEAKER) (test qwfa=017) 28.0 % 40.0-50.0 CALCIUM, [id number] 23:06:00 Test Item Value Reference Range Comments CALCIUM IONIZED (BEAKER) (test cghy=501) 1.15 mmol/L 1.12-1.27 PH, BLOOD (BEAKER) (test prvt=1835) 7.28 POCT-GLUCOSE [id number] 21:58:00 Test Item Value Reference Range Comments POC-GLUCOSE METER (BEAKER) 202 mg/dL 70-110 TESTED AT [address] (test fgoq=1043) [facility] [address] POCT-GLUCOSE [id number] 16:44:00 Test Item Value Reference Range Comments POC-GLUCOSE METER (BEAKER) 220 mg/dL 70-110 TESTED AT [address] (test hbkm=6106) [facility] [address] PERIPHERAL BLOOD SMEAR - HOLD [id number] 16:10:00 Test Item Value Reference Range Comments PERIPHERAL SMEAR SAVE (BEAKER) (test lnlq=8130) saved POCT-GLUCOSE [id number] 11:01:00 Test Item Value Reference Range Comments POC-GLUCOSE METER (BEAKER) 152 mg/dL 70-[address] [facility] [address] [facility] (test fcsm=3325) [facility] [address] POCT-GLUCOSE [id number] 07:16:00 Test Item Value Reference Range Comments POC-GLUCOSE METER (BEAKER) 125 mg/dL 70-110 TESTED AT [address] (test ihxw=0939) [facility] [address] BASIC METABOLIC [id number] 03:47:00 Test Item Value Reference Range Comments SODIUM (BEAKER) (test 136 meq/L 136-145 timj=699) POTASSIUM (BEAKER) (test 4.0 meq/L 3.5-5.1 hfbm=353) CHLORIDE (BEAKER) (test 101 meq/L 98-107 pbpd=699) CO2 (BEAKER) (test 27 meq/L 22-29 lnfh=053) BLOOD UREA NITROGEN 46 mg/dL 7-21 (BEAKER) (test ozso=669) CREATININE (BEAKER) (test 1.28 mg/dL 0.57-1.25 rfhc=766) GLUCOSE RANDOM (BEAKER) 133 mg/dL 70-105 (test kasr=318) CALCIUM (BEAKER) (test 8.4 mg/dL 8.4-10.2 trqq=075) EGFR (BEAKER) (test mL/min/1.73 sq m INSUFFICIENT CLINICAL DATA exqb=3919) TO CALCULATE ESTIMATED GFR. [id number] 03:46:00 Test Item Value Reference Range Comments MAGNESIUM (BEAKER) (test bkxs=201) 2.2 mg/dL 1.6-2.6 HEPATIC FUNCTION [id number] 03:46:00 Test Item Value Reference Range Comments TOTAL PROTEIN (BEAKER) (test hpzf=490) 6.0 gm/dL 6.0-8.3 ALBUMIN (BEAKER) (test ljjt=1112) 3.4 g/dL 3.5-5.0 BILIRUBIN TOTAL (BEAKER) (test awgq=747) 1.7 mg/dL 0.2-1.2 BILIRUBIN DIRECT (BEAKER) (test utrl=126) 1.0 mg/dL 0.1-0.5 ALKALINE PHOSPHATASE (BEAKER) (test snmt=244) 72 U/L 40-150 AST (SGOT) (BEAKER) (test wrus=170) 46 U/L 5-34 ALT (SGPT) (BEAKER) (test rify=240) 32 U/L 6-55 [id number] 03:45:00 Test Item Value Reference Range Comments PARTIAL THROMBOPLASTIN TIME (BEAKER) (test 34.2 seconds 22.5-36.0 qccx=091) PROTHROMBIN [id number] 03:44:00 Test Item Value Reference Range Comments PROTIME (BEAKER) (test gfic=046) 18.3 seconds 11.7-14.7 INR (BEAKER) (test hgvs=464) 1.5 <=5.9 RECOMMENDED COUMADIN/WARFARIN INR THERAPY RANGESSTANDARD DOSE: 2.0 - 3.0 Includes: PROPHYLAXIS forvenous thrombosis, systemic embolization; TREATMENT for venous thrombosis and/or pulmonary embolus.HIGH RISK: Target INR is 2.5-3.5 for patients with mechanical heart valves.CBC W/PLT COUNT & AUTO [id number] 03:42:00 Test Item Value Reference Range Comments WHITE BLOOD CELL COUNT (BEAKER) (test srjl=462) 17.8 K/ L 4.0-10.0 RED BLOOD CELL COUNT (BEAKER) (test txok=621) 2.81 M/ L 4.20-5.80 HEMOGLOBIN (BEAKER) (test dmpw=301) 8.9 GM/DL 13.0-16.8 HEMATOCRIT (BEAKER) (test bikf=842) 27.4 % 40.0-50.0 MEAN CORPUSCULAR VOLUME (BEAKER) (test acch=455) 97.5 fL 82.0-98.0 MEAN CORPUSCULAR HEMOGLOBIN (BEAKER) (test 31.7 pg 27.0-33.0 jvjk=480) MEAN CORPUSCULAR HEMOGLOBIN CONC (BEAKER) (test 32.6 GM/DL 32.0-36.0 msbn=408) RED CELL DISTRIBUTION WIDTH (BEAKER) (test 14.8 % 10.3-14.2 roxi=997) PLATELET COUNT (BEAKER) (test raxj=487) 56 K/CU MM 150-430 MEAN PLATELET VOLUME (BEAKER) (test kanq=452) 8.6 fL 6.5-10.5 NUCLEATED RED BLOOD CELLS (BEAKER) (test 0 /100 WBC 0-0 jxno=674) NEUTROPHILS RELATIVE PERCENT (BEAKER) (test 89 % qzqz=718) LYMPHOCYTES RELATIVE PERCENT (BEAKER) (test 3 % jdcj=580) MONOCYTES RELATIVE PERCENT (BEAKER) (test 8 % indj=394) EOSINOPHILS RELATIVE PERCENT (BEAKER) (test 0 % zotc=801) BASOPHILS RELATIVE PERCENT (BEAKER) (test 0 % smxm=402) NEUTROPHILS ABSOLUTE COUNT (BEAKER) (test 15.90 K/ L 1.80-8.00 tlfi=068) LYMPHOCYTES ABSOLUTE COUNT (BEAKER) (test 0.51 K/ L 1.48-4.50 sonb=469) MONOCYTES ABSOLUTE COUNT (BEAKER) (test jocl=951) 1.38 K/ L 0.00-1.30 EOSINOPHILS ABSOLUTE COUNT (BEAKER) (test 0.01 K/ L 0.00-0.50 jhho=688) BASOPHILS ABSOLUTE COUNT (BEAKER) (test kros=040) 0.00 K/ L 0.00-0.20 0.00OXYGEN SATURATION, [id number] 03:33:00 Test Item Value Reference Range Comments O2 SATURATION (MEASURED) (BEAKER) (test gzid=9311) 68.8 % POCT-GLUCOSE [id number] 21:40:00 Test Item Value Reference Range Comments POC-GLUCOSE METER (BEAKER) 181 mg/dL 70-110 TESTED AT [address] (test ypyb=3797) [facility] [address] BASIC METABOLIC [id number] 21:06:00 Test Item Value Reference Range Comments SODIUM (BEAKER) (test 136 meq/L 136-145 hocd=664) POTASSIUM (BEAKER) (test 4.1 meq/L 3.5-5.1 rtpj=265) CHLORIDE (BEAKER) (test 102 meq/L 98-107 yvuw=271) CO2 (BEAKER) (test 22 meq/L 22-29 wtoc=374) BLOOD UREA NITROGEN 40 mg/dL 7-21 (BEAKER) (test wwxq=138) CREATININE (BEAKER) (test 1.38 mg/dL 0.57-1.25 hhgn=457) GLUCOSE RANDOM (BEAKER) 207 mg/dL 70-105 (test lrwc=511) CALCIUM (BEAKER) (test 8.6 mg/dL 8.4-10.2 zxfx=740) EGFR (BEAKER) (test mL/min/1.73 sq m INSUFFICIENT CLINICAL DATA hjuz=3185) TO CALCULATE ESTIMATED GFR. [id number] 21:04:00 Test Item Value Reference Range Comments PHOSPHORUS (BEAKER) (test fjlk=919) 5.4 mg/dL 2.3-4.7 [id number] 21:04:00 Test Item Value Reference Range Comments MAGNESIUM (BEAKER) (test yidr=222) 2.2 mg/dL 1.6-2.6 CALCIUM, [id number] 20:47:00 Test Item Value Reference Range Comments CALCIUM IONIZED (BEAKER) (test btcd=223) 1.13 mmol/L 1.12-1.27 PH, BLOOD (BEAKER) (test wvqq=3122) 7.38 POCT-GLUCOSE [id number] 17:51:00 Test Item Value Reference Range Comments POC-GLUCOSE METER (BEAKER) 173 mg/dL 70-110 TESTED AT [address] (test ytqm=7897) [facility] [address] LACTIC ACID, ARTERIAL, WHOLE [id number] 13:02:00 Test Item Value Reference Range Comments LACTATE BLOOD ARTERIAL (2) 1.4 mmol/L 0.5-2.2 Specimen slightly hemolyzed (BEAKER) (test jgjb=5395) Effective 10/24/2015: Units/Reference Range ChangeNew: 0.5-2.2 mmol/L Previous: 5 -20 mg/dLSpecimen slightly ictericOXYGEN SATURATION, [id number] 07:40:00 Test Item Value Reference Range Comments O2 SATURATION (MEASURED) (BEAKER) (test fopg=1702) 71.2 % BLOOD GAS, [id number] 07:39:00 Test Item Value Reference Range Comments PH ARTERIAL (BEAKER) (test koam=557) 7.42 7.35-7.45 PCO2 ARTERIAL (BEAKER) (test iyzu=410) 42 mmHg 35-45 PO2 ARTERIAL (BEAKER) (test mryb=306) 126 mmHg 80-90 O2 SATURATION ARTERIAL (BEAKER) (test dxey=267) 98.6 % 96.0-97.0 HCO3 ARTERIAL (BEAKER) (test jont=860) 27 mmol/L 21-29 BASE EXCESS ARTERIAL (BEAKER) (test hnfs=720) 1.8 mmol/L -2.0-3.0 PATIENT TEMPERATURE (BEAKER) (test ujcs=1082) 36.3 C FIO2 (BEAKER) (test vpjk=5692) 36.0 % [id number] 05:56:00 Test Item Value Reference Range Comments ACTIVATED CLOTTING TIME 131 sec TESTED AT [address] [facility] (test elcd=231) [place] [id number] 05:56:00 Test Item Value Reference Range Comments ACTIVATED CLOTTING TIME > sec OUTSIDE MEASURING RANGETESTED AT ([facility]) (test opfo=319) [place] [address] [id number] 05:56:00 Test Item Value Reference Range Comments ACTIVATED CLOTTING TIME 441 sec TESTED AT [address] [facility] (test gttl=985) [place] [address] [id number] 05:56:00 Test Item Value Reference Range Comments ACTIVATED CLOTTING TIME 533 sec TESTED AT [address] [facility] (test kxlz=006) [place] [address] [id number] 05:56:00 Test Item Value Reference Range Comments ACTIVATED CLOTTING TIME 528 sec TESTED AT [address] [facility] (test ejmv=368) [place] [address] [id number] 05:56:00 Test Item Value Reference Range Comments ACTIVATED CLOTTING TIME 415 sec TESTED AT [address] [facility] (test mzfe=486) [place] [address] [id number] 05:56:00 Test Item Value Reference Range Comments ACTIVATED CLOTTING TIME 301 sec TESTED AT [address] [facility] (test gatx=358) [place] [address] POCT-GLUCOSE [id number] 05:45:00 Test Item Value Reference Range Comments POC-GLUCOSE METER (BEAKER) 116 mg/dL 70-[address] [facility] [address] [facility] (test gnut=8664) [facility] [address] BASIC METABOLIC [id number] 02:50:00 Test Item Value Reference Range Comments SODIUM (BEAKER) (test 139 meq/L 136-145 cqgd=585) POTASSIUM (BEAKER) (test 4.5 meq/L 3.5-5.1 hiih=732) CHLORIDE (BEAKER) (test 105 meq/L 98-107 jouu=841) CO2 (BEAKER) (test 23 meq/L 22-29 rtob=299) BLOOD UREA NITROGEN 42 mg/dL 7-21 (BEAKER) (test pgdn=994) CREATININE (BEAKER) (test 1.28 mg/dL 0.57-1.25 ozxo=888) GLUCOSE RANDOM (BEAKER) 121 mg/dL 70-105 (test bgpf=298) CALCIUM (BEAKER) (test 9.3 mg/dL 8.4-10.2 uwoy=909) EGFR (BEAKER) (test mL/min/1.73 sq m INSUFFICIENT CLINICAL DATA pejf=4564) TO CALCULATE ESTIMATED GFR. Specimen slightly ictericHEPATIC FUNCTION [id number] 02:42:00 Test Item Value Reference Range Comments TOTAL PROTEIN (BEAKER) (test nqjf=570) 5.8 gm/dL 6.0-8.3 ALBUMIN (BEAKER) (test tile=7025) 3.3 g/dL 3.5-5.0 BILIRUBIN TOTAL (BEAKER) (test helh=238) 2.2 mg/dL 0.2-1.2 BILIRUBIN DIRECT (BEAKER) (test vcim=403) 1.2 mg/dL 0.1-0.5 ALKALINE PHOSPHATASE (BEAKER) (test kwcj=169) 67 U/L 40-150 AST (SGOT) (BEAKER) (test ktgl=911) 49 U/L 5-34 ALT (SGPT) (BEAKER) (test nfcj=208) 30 U/L 6-55 Specimen slightly ictericCBC W/PLT COUNT & AUTO [id number] 02:34 :00 Test Item Value Reference Range Comments WHITE BLOOD CELL COUNT (BEAKER) (test rfyp=767) 23.7 K/ L 4.0-10.0 RED BLOOD CELL COUNT (BEAKER) (test onnz=413) 3.08 M/ L 4.20-5.80 HEMOGLOBIN (BEAKER) (test qfna=199) 9.7 GM/DL 13.0-16.8 HEMATOCRIT (BEAKER) (test huwv=016) 30.0 % 40.0-50.0 MEAN CORPUSCULAR VOLUME (BEAKER) (test tjic=447) 97.4 fL 82.0-98.0 MEAN CORPUSCULAR HEMOGLOBIN (BEAKER) (test 31.4 pg 27.0-33.0 gzym=791) MEAN CORPUSCULAR HEMOGLOBIN CONC (BEAKER) (test 32.2 GM/DL 32.0-36.0 lerd=868) RED CELL DISTRIBUTION WIDTH (BEAKER) (test 15.4 % 10.3-14.2 wlnc=889) PLATELET COUNT (BEAKER) (test bsbh=522) 128 K/CU MM 150-430 MEAN PLATELET VOLUME (BEAKER) (test tigx=600) 7.7 fL 6.5-10.5 NUCLEATED RED BLOOD CELLS (BEAKER) (test 0 /100 WBC 0-0 pnaj=184) NEUTROPHILS RELATIVE PERCENT (BEAKER) (test 87 % ypac=386) LYMPHOCYTES RELATIVE PERCENT (BEAKER) (test 3 % yxtc=684) MONOCYTES RELATIVE PERCENT (BEAKER) (test 9 % wyax=423) EOSINOPHILS RELATIVE PERCENT (BEAKER) (test 0 % nbat=794) BASOPHILS RELATIVE PERCENT (BEAKER) (test 1 % wicm=565) NEUTROPHILS ABSOLUTE COUNT (BEAKER) (test 20.70 K/ L 1.80-8.00 rmtc=805) LYMPHOCYTES ABSOLUTE COUNT (BEAKER) (test 0.71 K/ L 1.48-4.50 xuop=505) MONOCYTES ABSOLUTE COUNT (BEAKER) (test 2.09 K/ L 0.00-1.30 eplv=962) EOSINOPHILS ABSOLUTE COUNT (BEAKER) (test 0.02 K/ L 0.00-0.50 tdgd=457) BASOPHILS ABSOLUTE COUNT (BEAKER) (test 0.12 K/ L 0.00-0.20 xqmf=097) [id number] 02:27:00 Test Item Value Reference Range Comments FIBRINOGEN LEVEL (BEAKER) (test xlda=757) 225 mg/dl 225-434 [id number] 02:27:00 Test Item Value Reference Range Comments PARTIAL THROMBOPLASTIN TIME (BEAKER) (test 33.6 seconds 22.5-36.0 lrii=344) PROTHROMBIN [id number] 02:26:00 Test Item Value Reference Range Comments PROTIME (BEAKER) (test ohuj=904) 18.3 seconds 11.7-14.7 INR (BEAKER) (test xbss=222) 1.5 <=5.9 RECOMMENDED COUMADIN/WARFARIN INR THERAPY RANGESSTANDARD DOSE: 2.0 - 3.0 Includes: PROPHYLAXIS forvenous thrombosis, systemic embolization; TREATMENT for venous thrombosis and/or pulmonary embolus.HIGH RISK: Target INR is 2.5-3.5 for patients with mechanical heart valves.[id number] 00:45:00 Test Item Value Reference Range Comments MAGNESIUM (BEAKER) (test pajz=301) 2.4 mg/dL 1.6-2.6 POCT-GLUCOSE [id number] 00:03:00 Test Item Value Reference Range Comments POC-GLUCOSE METER (BEAKER) 136 mg/dL 70-110 TESTED AT [address] (test bjcc=6021) [place] [id number] POCT-GLUCOSE [id number] 22:33:00 Test Item Value Reference Range Comments POC-GLUCOSE METER (BEAKER) 136 mg/dL 70-110 TESTED AT [address] (test qptl=4726) [place] [id number] (MANUAL DIFFERENTIAL)[id number] 22:03:00 Test Item Value Reference Range Comments NEUTROPHILS - REL (DIFF) (BEAKER) (test 85 % bnit=6727) LYMPHOCYTES - REL (DIFF) (BEAKER) (test 5 % wrtf=9023) MONOCYTES - REL (DIFF) (BEAKER) (test hftt=5637) 7 % BANDS - REL (DIFF) (BEAKER) (test cesz=1050) 3 % 0-10 NEUTROPHILS - ABS (DIFF) (BEAKER) (test 24.06 K/ L 1.80-8.00 bygf=3718) LYMPHOCYTES - ABS (DIFF) (BEAKER) (test 1.42 K/ L 1.48-4.50 tsnz=7316) MONOCYTES - ABS (DIFF) (BEAKER) (test lfuz=1499) 1.98 K/ L 0.00-1.30 BANDS-ABS (DIFF) (BEAKER) (test veoo=8290) 0.8 K/ L 0.0-0.8 TOTAL COUNTED (BEAKER) (test sxpk=8391) 100 BANDS + SEGMENTED NEUTROPHILS (BEAKER) (test 24.90 rszf=3753) WBC MORPHOLOGY (BEAKER) (test vvfg=013) Normal PLT MORPHOLOGY (BEAKER) (test ryhv=122) Normal RBC MORPHOLOGY (BEAKER) (test defb=747) Normal CBC W/PLT COUNT & AUTO [id number] 22:02:00 Test Item Value Reference Range Comments WHITE BLOOD CELL COUNT (BEAKER) (test bair=125) 28.3 K/ L 4.0-10.0 RED BLOOD CELL COUNT (BEAKER) (test kxsg=401) 3.35 M/ L 4.20-5.80 HEMOGLOBIN (BEAKER) (test lfma=709) 10.5 GM/DL 13.0-16.8 HEMATOCRIT (BEAKER) (test tgku=409) 32.3 % 40.0-50.0 MEAN CORPUSCULAR VOLUME (BEAKER) (test lvpq=007) 96.6 fL 82.0-98.0 MEAN CORPUSCULAR HEMOGLOBIN (BEAKER) (test 31.3 pg 27.0-33.0 ifkq=446) MEAN CORPUSCULAR HEMOGLOBIN CONC (BEAKER) (test 32.4 GM/DL 32.0-36.0 ktfz=415) RED CELL DISTRIBUTION WIDTH (BEAKER) (test 14.9 % 10.3-14.2 huhg=324) PLATELET COUNT (BEAKER) (test hdqr=327) 139 K/CU MM 150-430 MEAN PLATELET VOLUME (BEAKER) (test mufp=513) 7.9 fL 6.5-10.5 NUCLEATED RED BLOOD CELLS (BEAKER) (test 0 /100 WBC 0-0 yded=174) 0.000.550.000.000.000.00LACTIC ACID, ARTERIAL, WHOLE [id number] 21:40:00 Test Item Value Reference Range Comments LACTATE BLOOD ARTERIAL (2) (BEAKER) (test 1.3 mmol/L 0.5-2.2 vxcw=4574) Effective 10/24/2015: Units/Reference Range ChangeNew: 0.5-2.2 mmol/L Previous: 5 -20 mg/dLSpecimen slightly ictericPROTHROMBIN TIME/[id number] 21:34:00 Test Item Value Reference Range Comments PROTIME (BEAKER) (test gzbo=893) 18.7 seconds 11.7-14.7 INR (BEAKER) (test uerd=485) 1.6 <=5.9 RECOMMENDED COUMADIN/WARFARIN INR THERAPY RANGESSTANDARD DOSE: 2.0 - 3.0 Includes: PROPHYLAXIS forvenous thrombosis, systemic embolization; TREATMENT for venous thrombosis and/or pulmonary embolus.HIGH RISK: Target INR is 2.5-3.5 for patients with mechanical heart valves.[id number] 21:34:00 Test Item Value Reference Range Comments PARTIAL THROMBOPLASTIN TIME (BEAKER) (test 34.3 seconds 22.5-36.0 qxln=134) [id number] 21:28:00 Test Item Value Reference Range Comments POTASSIUM (BEAKER) (test upzk=362) 4.6 meq/L 3.5-5.1 POCT-GLUCOSE [id number] 21:27:00 Test Item Value Reference Range Comments POC-GLUCOSE METER (BEAKER) 150 mg/dL 70-110 TESTED AT [address] (test hgxt=3211) [facility] [id number] BLOOD GAS, [id number] 21:17:00 Test Item Value Reference Range Comments PH ARTERIAL (BEAKER) (test mcyn=916) 7.38 7.35-7.45 PCO2 ARTERIAL (BEAKER) (test cwss=710) 49 mmHg 35-45 PO2 ARTERIAL (BEAKER) (test mjcu=143) 102 mmHg 80-90 O2 SATURATION ARTERIAL (BEAKER) (test ztax=263) 97.5 % 96.0-97.0 HCO3 ARTERIAL (BEAKER) (test lunt=992) 28 mmol/L 21-29 BASE EXCESS ARTERIAL (BEAKER) (test vnnu=697) 2.5 mmol/L -2.0-3.0 PATIENT TEMPERATURE (BEAKER) (test pssr=2224) 37.1 C FIO2 (BEAKER) (test xgfd=3053) 40.0 % 30 minutes s/p bipap [id number] 20:29:00 Test Item Value Reference Range Comments POTASSIUM (BEAKER) (test yhqe=582) 4.6 meq/L 3.5-5.1 Check Serum Potassium level 2 hours after oral potassium replacement completed or 30 min after intravenous potassium replacement.BLOOD GAS, [id number] 20:06:00 Test Item Value Reference Range Comments PH ARTERIAL (BEAKER) (test rtjc=731) 7.28 7.35-7.45 PCO2 ARTERIAL (BEAKER) (test vphq=556) 67 mmHg 35-45 PO2 ARTERIAL (BEAKER) (test wutt=841) 80 mmHg 80-90 O2 SATURATION ARTERIAL (BEAKER) (test gava=789) 94.0 % 96.0-97.0 HCO3 ARTERIAL (BEAKER) (test zbzs=463) 31 mmol/L 21-29 BASE EXCESS ARTERIAL (BEAKER) (test ovtb=205) 2.8 mmol/L -2.0-3.0 PATIENT TEMPERATURE (BEAKER) (test uuyv=8696) 37.0 C FIO2 (BEAKER) (test ilkh=8409) 36.0 % POTASSIUM-STAT [id number] 17:23:00 Test Item Value Reference Range Comments POTASSIUM (BEAKER) (test rutm=030) 4.2 meq/L 3.6-5.5 GLUCOSE-STAT [id number] 17:23:00 Test Item Value Reference Range Comments GLUCOSE RANDOM (BEAKER) (test gprx=442) 133 mg/dL 70-110 BLOOD GAS, [id number] 17:23:00 Test Item Value Reference Range Comments PH ARTERIAL (BEAKER) (test sxvb=890) 7.44 7.35-7.45 PCO2 ARTERIAL (BEAKER) (test kzoa=730) 42 mmHg 35-45 PO2 ARTERIAL (BEAKER) (test menu=860) 107 mmHg 80-90 O2 SATURATION ARTERIAL (BEAKER) (test vekf=620) 98.1 % 96.0-97.0 HCO3 ARTERIAL (BEAKER) (test ldgh=706) 28 mmol/L 21-29 BASE EXCESS ARTERIAL (BEAKER) (test pcfy=542) 3.3 mmol/L -2.0-3.0 PATIENT TEMPERATURE (BEAKER) (test svpq=0899) 36.4 C FIO2 (BEAKER) (test nsrf=4149) 40.0 % CBC W/PLT COUNT & AUTO [id number] 14:50:00 Test Item Value Reference Range Comments WHITE BLOOD CELL COUNT (BEAKER) (test jjxz=634) 31.6 K/ L 4.0-10.0 RED BLOOD CELL COUNT (BEAKER) (test ypln=101) 3.12 M/ L 4.20-5.80 HEMOGLOBIN (BEAKER) (test ptmk=806) 10.6 GM/DL 13.0-16.8 HEMATOCRIT (BEAKER) (test rxqs=388) 30.0 % 40.0-50.0 MEAN CORPUSCULAR VOLUME (BEAKER) (test uxpc=058) 96.3 fL 82.0-98.0 MEAN CORPUSCULAR HEMOGLOBIN (BEAKER) (test 33.9 pg 27.0-33.0 jfto=285) MEAN CORPUSCULAR HEMOGLOBIN CONC (BEAKER) (test 35.2 GM/DL 32.0-36.0 eggs=891) RED CELL DISTRIBUTION WIDTH (BEAKER) (test 14.6 % 10.3-14.2 shwe=452) PLATELET COUNT (BEAKER) (test zhcx=355) 124 K/CU MM 150-430 MEAN PLATELET VOLUME (BEAKER) (test zzae=385) 7.8 fL 6.5-10.5 NUCLEATED RED BLOOD CELLS (BEAKER) (test 0 /100 WBC 0-0 vyrm=822) 0.000.550.000.000.680.000.000.000.00(MANUAL DIFFERENTIAL)2016-09-23 14:50:00 Test Item Value Reference Range Comments NEUTROPHILS - REL (DIFF) (BEAKER) (test 86 % imay=9440) LYMPHOCYTES - REL (DIFF) (BEAKER) (test 1 % jimi=1942) MONOCYTES - REL (DIFF) (BEAKER) (test qnfx=2334) 1 % BANDS - REL (DIFF) (BEAKER) (test gbwt=0253) 11 % 0-10 ATYPICAL LYMPHOCYTE - REL (DIFF) (BEAKER) (test 1 % 0-0 ezdl=009) NEUTROPHILS - ABS (DIFF) (BEAKER) (test 27.18 K/ L 1.80-8.00 pjvo=6093) LYMPHOCYTES - ABS (DIFF) (BEAKER) (test 0.32 K/ L 1.48-4.50 aies=4947) MONOCYTES - ABS (DIFF) (BEAKER) (test krbg=1399) 0.32 K/ L 0.00-1.30 BANDS-ABS (DIFF) (BEAKER) (test vler=7572) 3.5 K/ L 0.0-0.8 ATYPICAL LYMPHOCYTES - ABS (DIFF) (BEAKER) (test 0.32 K/ L 0.00-0.00 pauu=501) TOTAL COUNTED (BEAKER) (test xqxj=8469) 100 BANDS + SEGMENTED NEUTROPHILS (BEAKER) (test 30.65 yjdy=0095) WBC MORPHOLOGY (BEAKER) (test wgnl=262) Normal PLT MORPHOLOGY (BEAKER) (test nkpp=285) Normal RBC MORPHOLOGY (BEAKER) (test ftam=093) Normal [id number] 13:33:00 Test Item Value Reference Range Comments FIBRINOGEN LEVEL (BEAKER) (test mnql=430) 204 mg/dl 225-434 [id number] 13:33:00 Test Item Value Reference Range Comments PARTIAL THROMBOPLASTIN TIME (BEAKER) (test 37.7 seconds 22.5-36.0 rqeu=108) PROTHROMBIN [id number] 13:32:00 Test Item Value Reference Range Comments PROTIME (BEAKER) (test pajn=946) 20.5 seconds 11.7-14.7 INR (BEAKER) (test ozad=807) 1.8 <=5.9 RECOMMENDED COUMADIN/WARFARIN INR THERAPY RANGESSTANDARD DOSE: 2.0 - 3.0 Includes: PROPHYLAXIS forvenous thrombosis, systemic embolization; TREATMENT for venous thrombosis and/or pulmonary embolus.HIGH RISK: Target INR is 2.5-3.5 for patients with mechanical heart valves.CALCIUM, [id number] 13:15:00 Test Item Value Reference Range Comments CALCIUM IONIZED (BEAKER) (test kone=229) 1.32 mmol/L 1.12-1.27 PH, BLOOD (BEAKER) (test gevu=1412) 7.42 [id number] 13:13:00 Test Item Value Reference Range Comments MAGNESIUM (BEAKER) (test vecu=582) 2.7 mg/dL 1.6-2.6 LACTIC ACID, ARTERIAL, WHOLE [id number] 13:12:00 Test Item Value Reference Range Comments LACTATE BLOOD ARTERIAL (2) (BEAKER) (test 1.7 mmol/L 0.5-2.2 dnwa=3240) Effective 10/24/2015: Units/Reference Range ChangeNew: 0.5-2.2 mmol/L Previous: 5 -20 mg/dLBLOOD GAS, [id number] 13:08:00 Test Item Value Reference Range Comments PH ARTERIAL (BEAKER) (test xrxx=191) 7.45 7.35-7.45 PCO2 ARTERIAL (BEAKER) (test pnkc=457) 42 mmHg 35-45 PO2 ARTERIAL (BEAKER) (test wxdg=477) 97 mmHg 80-90 O2 SATURATION ARTERIAL (BEAKER) (test epez=510) 98.0 % 96.0-97.0 HCO3 ARTERIAL (BEAKER) (test wfbf=945) 29 mmol/L 21-29 BASE EXCESS ARTERIAL (BEAKER) (test umqb=746) 3.6 mmol/L -2.0-3.0 PATIENT TEMPERATURE (BEAKER) (test tsnr=0318) 34.9 C FIO2 (BEAKER) (test lytn=4662) 60.0 % SODIUM NA-STAT [id number] 13:08:00 Test Item Value Reference Range Comments SODIUM (BEAKER) (test fbxf=442) 133 meq/L 135-148 POTASSIUM-STAT [id number] 13:08:00 Test Item Value Reference Range Comments POTASSIUM (BEAKER) (test znvw=709) 3.1 meq/L 3.6-5.5 GLUCOSE-STAT [id number] 13:08:00 Test Item Value Reference Range Comments GLUCOSE RANDOM (BEAKER) (test zomi=010) 139 mg/dL 70-110 OXYGEN SATURATION, [id number] 13:05:00 Test Item Value Reference Range Comments O2 SATURATION (MEASURED) (BEAKER) (test zimi=1193) 76.5 % [id number] 12:00:00 Test Item Value Reference Range Comments FIBRINOGEN LEVEL (BEAKER) (test emlu=076) 118 mg/dl 225-434 PLATELET [id number] 11:59:00 Test Item Value Reference Range Comments PLATELET COUNT (BEAKER) (test nsyy=650) 129 K/CU MM 150-430 [id number] 11:55:00 Test Item Value Reference Range Comments PARTIAL THROMBOPLASTIN TIME (BEAKER) (test 47.7 seconds 22.5-36.0 urcb=297) CALCIUM, [id number] 11:54:00 Test Item Value Reference Range Comments CALCIUM IONIZED (BEAKER) (test pvrf=474) 1.13 mmol/L 1.12-1.27 PH, BLOOD (BEAKER) (test ccgr=6296) 7.44 PROTHROMBIN [id number] 11:54:00 Test Item Value Reference Range Comments PROTIME (BEAKER) (test tmyz=190) 26.0 seconds 11.7-14.7 INR (BEAKER) (test gyvs=479) 2.4 <=5.9 RECOMMENDED COUMADIN/WARFARIN INR THERAPY RANGESSTANDARD DOSE: 2.0 - 3.0 Includes: PROPHYLAXIS forvenous thrombosis, systemic embolization; TREATMENT for venous thrombosis and/or pulmonary embolus.HIGH RISK: Target INR is 2.5-3.5 for patients with mechanical heart valves.BLOOD GAS, [id number] 11:53:00 Test Item Value Reference Range Comments PH ARTERIAL (BEAKER) (test exke=379) 7.45 7.35-7.45 PCO2 ARTERIAL (BEAKER) (test lmvl=097) 40 mmHg 35-45 PO2 ARTERIAL (BEAKER) (test tivq=323) 263 mmHg 80-90 O2 SATURATION ARTERIAL (BEAKER) (test dfzm=195) 99.6 % 96.0-97.0 HCO3 ARTERIAL (BEAKER) (test emxz=730) 28 mmol/L 21-29 BASE EXCESS ARTERIAL (BEAKER) (test kity=965) 3.2 mmol/L -2.0-3.0 PATIENT TEMPERATURE (BEAKER) (test pvgy=3084) 36.0 C FIO2 (BEAKER) (test rlkn=9409) 100.0 % GLUCOSE-STAT [id number] 11:53:00 Test Item Value Reference Range Comments GLUCOSE RANDOM (BEAKER) (test byyc=032) 158 mg/dL 70-110 POTASSIUM-STAT [id number] 11:53:00 Test Item Value Reference Range Comments POTASSIUM (BEAKER) (test vfzc=737) 3.0 meq/L 3.6-5.5 HGB/HCT (H&H) - STAT [id number] 11:53:00 Test Item Value Reference Range Comments HEMOGLOBIN (BEAKER) (test zjwi=396) 8.6 g/dL 13.0-16.8 HEMATOCRIT (BEAKER) (test szje=034) 25.0 % 40.0-50.0 SODIUM NA-STAT [id number] 11:52:00 Test Item Value Reference Range Comments SODIUM (BEAKER) (test epoj=652) 135 meq/L 135-148 BLOOD GAS, [id number] 11:26:00 Test Item Value Reference Range Comments PH ARTERIAL (BEAKER) (test icrc=314) 7.37 7.35-7.45 PCO2 ARTERIAL (BEAKER) (test qblx=392) 48 mmHg 35-45 PO2 ARTERIAL (BEAKER) (test qyir=371) 76 mmHg 80-90 O2 SATURATION ARTERIAL (BEAKER) (test fwbg=064) 95.5 % 96.0-97.0 HCO3 ARTERIAL (BEAKER) (test xwyx=906) 27 mmol/L 21-29 BASE EXCESS ARTERIAL (BEAKER) (test bmnq=255) 0.9 mmol/L -2.0-3.0 PATIENT TEMPERATURE (BEAKER) (test amoz=7061) 35.6 C FIO2 (BEAKER) (test jozx=5355) 100.0 % SODIUM NA-STAT [id number] 11:26:00 Test Item Value Reference Range Comments SODIUM (BEAKER) (test remg=218) 133 meq/L 135-148 POTASSIUM-STAT [id number] 11:26:00 Test Item Value Reference Range Comments POTASSIUM (BEAKER) (test vwmy=732) 3.1 meq/L 3.6-5.5 GLUCOSE-STAT [id number] 11:26:00 Test Item Value Reference Range Comments GLUCOSE RANDOM (BEAKER) (test wgsc=936) 158 mg/dL 70-110 HGB/HCT (H&H) - STAT [id number] 11:26:00 Test Item Value Reference Range Comments HEMOGLOBIN (BEAKER) (test remn=002) 8.3 g/dL 13.0-16.8 HEMATOCRIT (BEAKER) (test kzdj=270) 24.0 % 40.0-50.0 CALCIUM, [id number] 11:26:00 Test Item Value Reference Range Comments CALCIUM IONIZED (BEAKER) (test mixb=801) 0.86 mmol/L 1.12-1.27 PH, BLOOD (BEAKER) (test dlsv=5547) 7.35 [id number] 11:01:00 Test Item Value Reference Range Comments FIBRINOGEN LEVEL (BEAKER) (test ayat=967) 99 mg/dl 225-434 PROTHROMBIN [id number] 10:50:00 Test Item Value Reference Range Comments PROTIME (BEAKER) (test cids=960) 46.0 seconds 11.7-14.7 INR (BEAKER) (test glwq=986) 4.9 <=5.9 RECOMMENDED COUMADIN/WARFARIN INR THERAPY RANGESSTANDARD DOSE: 2.0 - 3.0 Includes: PROPHYLAXIS forvenous thrombosis, systemic embolization; TREATMENT for venous thrombosis and/or pulmonary embolus.HIGH RISK: Target INR is 2.5-3.5 for patients with mechanical heart valves.PLATELET [id number] 10:47:00 Test Item Value Reference Range Comments PLATELET COUNT (BEAKER) (test nxds=062) 104 K/CU MM 150-430 BLOOD GAS, [id number] 10:30:00 Test Item Value Reference Range Comments PH ARTERIAL (BEAKER) (test ttwd=244) 7.53 7.35-7.45 PCO2 ARTERIAL (BEAKER) (test lxgu=202) 37 mmHg 35-45 PO2 ARTERIAL (BEAKER) (test mqyu=489) 256 mmHg 80-90 O2 SATURATION ARTERIAL (BEAKER) (test ouhd=437) 99.7 % 96.0-97.0 HCO3 ARTERIAL (BEAKER) (test lzxy=135) 31 mmol/L 21-29 BASE EXCESS ARTERIAL (BEAKER) (test bvxg=793) 7.0 mmol/L -2.0-3.0 PATIENT TEMPERATURE (BEAKER) (test eiig=1846) 33.4 C FIO2 (BEAKER) (test prcb=5022) 65.0 % SODIUM NA-STAT [id number] 10:30:00 Test Item Value Reference Range Comments SODIUM (BEAKER) (test nvza=147) 131 meq/L 135-148 POTASSIUM-STAT [id number] 10:30:00 Test Item Value Reference Range Comments POTASSIUM (BEAKER) (test rybz=732) 3.3 meq/L 3.6-5.5 GLUCOSE-STAT [id number] 10:30:00 Test Item Value Reference Range Comments GLUCOSE RANDOM (BEAKER) (test cajg=541) 122 mg/dL 70-110 HGB/HCT (H&H) - STAT [id number] 10:30:00 Test Item Value Reference Range Comments HEMOGLOBIN (BEAKER) (test rblr=675) 9.8 g/dL 13.0-16.8 HEMATOCRIT (BEAKER) (test ioae=024) 29.0 % 40.0-50.0 GLUCOSE-STAT [id number] 09:54:00 Test Item Value Reference Range Comments GLUCOSE RANDOM (BEAKER) (test vxuf=434) 114 mg/dL 70-110 SODIUM NA-STAT [id number] 09:54:00 Test Item Value Reference Range Comments SODIUM (BEAKER) (test eegp=909) 134 meq/L 135-148 POTASSIUM-STAT [id number] 09:54:00 Test Item Value Reference Range Comments POTASSIUM (BEAKER) (test fwds=157) 3.2 meq/L 3.6-5.5 HGB/HCT (H&H) - STAT [id number] 09:54:00 Test Item Value Reference Range Comments HEMOGLOBIN (BEAKER) (test adet=461) 10.2 g/dL 13.0-16.8 HEMATOCRIT (BEAKER) (test cfcw=115) 30.0 % 40.0-50.0 BLOOD GAS, [id number] 09:53:00 Test Item Value Reference Range Comments PH ARTERIAL (BEAKER) (test tnmg=996) 7.58 7.35-7.45 PCO2 ARTERIAL (BEAKER) (test dyum=720) 32 mmHg 35-45 PO2 ARTERIAL (BEAKER) (test auvx=253) 306 mmHg 80-90 O2 SATURATION ARTERIAL (BEAKER) (test djfy=768) 99.8 % 96.0-97.0 HCO3 ARTERIAL (BEAKER) (test xfxf=158) 30 mmol/L 21-29 BASE EXCESS ARTERIAL (BEAKER) (test xsbb=991) 6.7 mmol/L -2.0-3.0 PATIENT TEMPERATURE (BEAKER) (test qhla=1251) 33.4 C FIO2 (BEAKER) (test hxwb=5807) 70.0 % BLOOD GAS, [id number] 09:35:00 Test Item Value Reference Range Comments PH ARTERIAL (BEAKER) (test rztp=693) 7.62 7.35-7.45 PCO2 ARTERIAL (BEAKER) (test vlfa=591) 28 mmHg 35-45 PO2 ARTERIAL (BEAKER) (test xulq=296) 345 mmHg 80-90 O2 SATURATION ARTERIAL (BEAKER) (test tepg=908) 99.8 % 96.0-97.0 HCO3 ARTERIAL (BEAKER) (test sccu=911) 29 mmol/L 21-29 BASE EXCESS ARTERIAL (BEAKER) (test qmqn=023) 6.6 mmol/L -2.0-3.0 PATIENT TEMPERATURE (BEAKER) (test bfkg=1099) 34.5 C FIO2 (BEAKER) (test pxso=0538) 80.0 % POTASSIUM-STAT [id number] 09:33:00 Test Item Value Reference Range Comments POTASSIUM (BEAKER) (test raba=220) 3.2 meq/L 3.6-5.5 SODIUM NA-STAT [id number] 09:33:00 Test Item Value Reference Range Comments SODIUM (BEAKER) (test gneh=873) 131 meq/L 135-148 HGB/HCT (H&H) - STAT [id number] 09:33:00 Test Item Value Reference Range Comments HEMOGLOBIN (BEAKER) (test dcko=123) 9.2 g/dL 13.0-16.8 HEMATOCRIT (BEAKER) (test gaml=828) 27.0 % 40.0-50.0 GLUCOSE-STAT [id number] 09:32:00 Test Item Value Reference Range Comments GLUCOSE RANDOM (BEAKER) (test qbcn=670) 92 mg/dL 70-110 CALCIUM, [id number] 08:33:00 Test Item Value Reference Range Comments CALCIUM IONIZED (BEAKER) (test tviu=869) 1.03 mmol/L 1.12-1.27 PH, BLOOD (BEAKER) (test hkts=7719) 7.54 GLUCOSE-STAT [id number] 08:32:00 Test Item Value Reference Range Comments GLUCOSE RANDOM (BEAKER) (test pzlp=545) 81 mg/dL 70-110 BLOOD GAS, [id number] 08:32:00 Test Item Value Reference Range Comments PH ARTERIAL (BEAKER) (test ilws=888) 7.54 7.35-7.45 PCO2 ARTERIAL (BEAKER) (test cbch=946) 39 mmHg 35-45 PO2 ARTERIAL (BEAKER) (test grub=112) 113 mmHg 80-90 O2 SATURATION ARTERIAL (BEAKER) (test dllm=959) 98.6 % 96.0-97.0 HCO3 ARTERIAL (BEAKER) (test pxes=913) 33 mmol/L 21-29 BASE EXCESS ARTERIAL (BEAKER) (test xjwv=758) 9.5 mmol/L -2.0-3.0 PATIENT TEMPERATURE (BEAKER) (test welu=0609) 37.0 C FIO2 (BEAKER) (test xkvn=4840) 28.0 % SODIUM NA-STAT [id number] 08:32:00 Test Item Value Reference Range Comments SODIUM (BEAKER) (test mpqm=596) 133 meq/L 135-148 POTASSIUM-STAT [id number] 08:32:00 Test Item Value Reference Range Comments POTASSIUM (BEAKER) (test mydr=275) 2.9 meq/L 3.6-5.5 HGB/HCT (H&H) - STAT [id number] 08:32:00 Test Item Value Reference Range Comments HEMOGLOBIN (BEAKER) (test gons=405) 10.8 g/dL 13.0-16.8 HEMATOCRIT (BEAKER) (test uptj=411) 32.0 % 40.0-50.0 POCT-GLUCOSE [id number] 06:20:00 Test Item Value Reference Range Comments POC-GLUCOSE METER (BEAKER) 107 mg/dL 70-[address] [facility] [address] [facility] (test aokl=5440) [facility] [address] BASIC METABOLIC [id number] 05:13:00 Test Item Value Reference Range Comments SODIUM (BEAKER) (test 134 meq/L 136-145 jnpu=945) POTASSIUM (BEAKER) (test 3.7 meq/L 3.5-5.1 lere=428) CHLORIDE (BEAKER) (test 95 meq/L 98-107 tvcb=493) CO2 (BEAKER) (test 30 meq/L 22-29 klre=980) BLOOD UREA NITROGEN 45 mg/dL 7-21 (BEAKER) (test ucan=136) CREATININE (BEAKER) (test 0.90 mg/dL 0.57-1.25 atqp=363) GLUCOSE RANDOM (BEAKER) 97 mg/dL 70-105 (test vpus=339) CALCIUM (BEAKER) (test 8.5 mg/dL 8.4-10.2 cymc=826) EGFR (BEAKER) (test mL/min/1.73 sq m INSUFFICIENT CLINICAL DATA uvgk=6197) TO CALCULATE ESTIMATED GFR. [id number] 05:12:00 Test Item Value Reference Range Comments FIBRINOGEN LEVEL (BEAKER) (test lgkc=861) 116 mg/dl 225-434 HEPATIC FUNCTION [id number] 05:12:00 Test Item Value Reference Range Comments TOTAL PROTEIN (BEAKER) (test sfnu=108) 6.7 gm/dL 6.0-8.3 ALBUMIN (BEAKER) (test vdwg=1786) 3.6 g/dL 3.5-5.0 BILIRUBIN TOTAL (BEAKER) (test uivo=341) 1.5 mg/dL 0.2-1.2 BILIRUBIN DIRECT (BEAKER) (test acdf=796) 0.8 mg/dL 0.1-0.5 ALKALINE PHOSPHATASE (BEAKER) (test swlu=989) 85 U/L 40-150 AST (SGOT) (BEAKER) (test dopr=879) 35 U/L 5-34 ALT (SGPT) (BEAKER) (test ioph=186) 28 U/L 6-55 [id number] 05:07:00 Test Item Value Reference Range Comments PARTIAL THROMBOPLASTIN TIME (BEAKER) (test 28.7 seconds 22.5-36.0 wzxz=880) PROTHROMBIN TIME/[id number] 05:06:00 Test Item Value Reference Range Comments PROTIME (BEAKER) (test udfd=683) 19.1 seconds 11.7-14.7 INR (BEAKER) (test rbyy=631) 1.6 <=5.9 RECOMMENDED COUMADIN/WARFARIN INR THERAPY RANGESSTANDARD DOSE: 2.0 - 3.0 Includes: PROPHYLAXIS forvenous thrombosis, systemic embolization; TREATMENT for venous thrombosis and/or pulmonary embolus.HIGH RISK: Target INR is 2.5-3.5 for patients with mechanical heart valves.CBC W/PLT COUNT & AUTO [id number] 04:52:00 Test Item Value Reference Range Comments WHITE BLOOD CELL COUNT (BEAKER) (test vlft=041) 9.7 K/ L 4.0-10.0 RED BLOOD CELL COUNT (BEAKER) (test xyrx=806) 3.27 M/ L 4.20-5.80 HEMOGLOBIN (BEAKER) (test olgp=497) 10.4 GM/DL 13.0-16.8 HEMATOCRIT (BEAKER) (test dgzl=655) 31.5 % 40.0-50.0 MEAN CORPUSCULAR VOLUME (BEAKER) (test kxpo=341) 96.3 fL 82.0-98.0 MEAN CORPUSCULAR HEMOGLOBIN (BEAKER) (test 31.7 pg 27.0-33.0 mcqr=734) MEAN CORPUSCULAR HEMOGLOBIN CONC (BEAKER) (test 32.9 GM/DL 32.0-36.0 vthd=362) RED CELL DISTRIBUTION WIDTH (BEAKER) (test 15.0 % 10.3-14.2 ffrv=530) PLATELET COUNT (BEAKER) (test xyui=446) 74 K/CU MM 150-430 MEAN PLATELET VOLUME (BEAKER) (test nyxb=518) 8.9 fL 6.5-10.5 NUCLEATED RED BLOOD CELLS (BEAKER) (test 0 /100 WBC 0-0 ngar=643) NEUTROPHILS RELATIVE PERCENT (BEAKER) (test 87 % dzss=318) LYMPHOCYTES RELATIVE PERCENT (BEAKER) (test 5 % yhxw=690) MONOCYTES RELATIVE PERCENT (BEAKER) (test 8 % svnv=729) EOSINOPHILS RELATIVE PERCENT (BEAKER) (test 0 % icyb=516) BASOPHILS RELATIVE PERCENT (BEAKER) (test 1 % meji=997) NEUTROPHILS ABSOLUTE COUNT (BEAKER) (test 8.37 K/ L 1.80-8.00 mvjq=668) LYMPHOCYTES ABSOLUTE COUNT (BEAKER) (test 0.44 K/ L 1.48-4.50 jxci=012) MONOCYTES ABSOLUTE COUNT (BEAKER) (test qktj=630) 0.73 K/ L 0.00-1.30 EOSINOPHILS ABSOLUTE COUNT (BEAKER) (test 0.01 K/ L 0.00-0.50 bwxm=429) BASOPHILS ABSOLUTE COUNT (BEAKER) (test mbzs=095) 0.11 K/ L 0.00-0.20 0.00POCT-GLUCOSE [id number] 21:29:00 Test Item Value Reference Range Comments POC-GLUCOSE METER (BEAKER) 202 mg/dL 70-110 TESTED AT [address] (test gfjc=4951) [place] [address] URINALYSIS W/ [id number] 19:29:00 Test Item Value Reference Range Comments COLOR (BEAKER) (test mxor=642) Light Yellow CLARITY (BEAKER) (test plif=763) Clear SPECIFIC GRAVITY UA (BEAKER) (test lpmw=786) 1.006 1.001-1.035 PH UA (BEAKER) (test uvfv=853) 6.5 5.0-8.0 PROTEIN UA (BEAKER) (test hpjr=639) Negative Negative GLUCOSE UA (BEAKER) (test jtwp=624) Negative Negative KETONES UA (BEAKER) (test zwub=199) Negative Negative BILIRUBIN UA (BEAKER) (test ukmz=481) Negative Negative BLOOD UA (BEAKER) (test xqax=851) Negative Negative NITRITE UA (BEAKER) (test ulus=002) Negative Negative LEUKOCYTE ESTERASE UA (BEAKER) (test nyno=039) Negative Negative UROBILINOGEN UA (BEAKER) (test vyna=776) 0.2 mg/dL 0.2-1.0 RBC UA (BEAKER) (test pftb=820) 0 /HPF WBC UA (BEAKER) (test jpmm=956) < /HPF SOURCE(BEAKER) (test bqcg=5709) Urine, Voided POCT-GLUCOSE [id number] 17:33:00 Test Item Value Reference Range Comments POC-GLUCOSE METER (BEAKER) 180 mg/dL 70-110 TESTED AT [address] (test uwwj=1409) [place] [id number] BASIC METABOLIC [id number] 15:09:00 Test Item Value Reference Range Comments SODIUM (BEAKER) (test 137 meq/L 136-145 zmba=972) POTASSIUM (BEAKER) (test 3.7 meq/L 3.5-5.1 Specimen slightly mrwt=147) hemolyzed CHLORIDE (BEAKER) (test 93 meq/L 98-107 hmmg=482) CO2 (BEAKER) (test 34 meq/L 22-29 vbhw=364) BLOOD UREA NITROGEN 45 mg/dL 7-21 (BEAKER) (test ibpn=879) CREATININE (BEAKER) (test 1.10 mg/dL 0.57-1.25 Specimen slightly dbxm=982) hemolyzed GLUCOSE RANDOM (BEAKER) 109 mg/dL 70-105 (test glcu=556) CALCIUM (BEAKER) (test 9.1 mg/dL 8.4-10.2 yetx=766) EGFR (BEAKER) (test mL/min/1.73 sq m INSUFFICIENT CLINICAL DATA ctef=4284) TO CALCULATE ESTIMATED GFR. [id number] 15:07:00 Test Item Value Reference Range Comments MAGNESIUM (BEAKER) (test 2.3 mg/dL 1.6-2.6 Specimen slightly hemolyzed pvni=015) POCT-GLUCOSE [id number] 12:13:00 Test Item Value Reference Range Comments POC-GLUCOSE METER (BEAKER) 116 mg/dL 70-[address] [facility] [address] [place] [address] (test dodp=8051) [facility] [address] BASIC METABOLIC [id number] 05:50:00 Test Item Value Reference Range Comments SODIUM (BEAKER) (test 134 meq/L 136-145 ilbt=698) POTASSIUM (BEAKER) (test 3.8 meq/L 3.5-5.1 opas=913) CHLORIDE (BEAKER) (test 95 meq/L 98-107 jcwg=365) CO2 (BEAKER) (test 29 meq/L 22-29 bqnm=407) BLOOD UREA NITROGEN 48 mg/dL 7-21 (BEAKER) (test szjb=718) CREATININE (BEAKER) (test 1.02 mg/dL 0.57-1.25 mcmw=077) GLUCOSE RANDOM (BEAKER) 99 mg/dL 70-105 (test fqdp=394) CALCIUM (BEAKER) (test 8.4 mg/dL 8.4-10.2 xhgd=371) EGFR (BEAKER) (test mL/min/1.73 sq m INSUFFICIENT CLINICAL DATA cybq=5806) TO CALCULATE ESTIMATED GFR. LACTATE DEHYDROGENASE (LDH)2016-09-22 05:49:00 Test Item Value Reference Range Comments LACTATE DEHYDROGENASE (BEAKER) (test zlrg=030) 220 U/L 125-220 HEPATIC FUNCTION [id number] 05:49:00 Test Item Value Reference Range Comments TOTAL PROTEIN (BEAKER) (test cfko=511) 6.8 gm/dL 6.0-8.3 ALBUMIN (BEAKER) (test atkz=2864) 3.7 g/dL 3.5-5.0 BILIRUBIN TOTAL (BEAKER) (test unwg=366) 1.3 mg/dL 0.2-1.2 BILIRUBIN DIRECT (BEAKER) (test imog=059) 0.7 mg/dL 0.1-0.5 ALKALINE PHOSPHATASE (BEAKER) (test ksai=330) 83 U/L 40-150 AST (SGOT) (BEAKER) (test uctc=782) 30 U/L 5-34 ALT (SGPT) (BEAKER) (test qdhp=021) 25 U/L 6-55 [id number] 05:32:00 Test Item Value Reference Range Comments D-DIMER QUANTITATIVE (BEAKER) (test akql=483) 5.86 MG/L FEU <0.50 Intended Use: The D-Dimer Assay can be used to aid in the diagnosis of Deep Vein Thrombosis (DVT) and Pulmonary Embolism Disease (PED).In patients with low pre-test probability, various studies concerning STA Liatest D-dimer test have reported that with a cutoff value of 0.50 MG/L FEU, the Negative Predictive Value (NPV) regarding the exclusion of thrombosis is within 95-100% range.[id number] 05:27:00 Test Item Value Reference Range Comments FIBRINOGEN LEVEL (BEAKER) (test lsac=940) 117 mg/dl 225-434 CBC W/PLT COUNT & AUTO [id number] 05:23:00 Test Item Value Reference Range Comments WHITE BLOOD CELL COUNT (BEAKER) (test odai=408) 8.9 K/ L 4.0-10.0 RED BLOOD CELL COUNT (BEAKER) (test vhyo=443) 3.34 M/ L 4.20-5.80 HEMOGLOBIN (BEAKER) (test yzmu=954) 10.7 GM/DL 13.0-16.8 HEMATOCRIT (BEAKER) (test erea=927) 32.1 % 40.0-50.0 MEAN CORPUSCULAR VOLUME (BEAKER) (test wtet=728) 96.2 fL 82.0-98.0 MEAN CORPUSCULAR HEMOGLOBIN (BEAKER) (test 32.0 pg 27.0-33.0 aggr=372) MEAN CORPUSCULAR HEMOGLOBIN CONC (BEAKER) (test 33.3 GM/DL 32.0-36.0 uqpd=999) RED CELL DISTRIBUTION WIDTH (BEAKER) (test 15.1 % 10.3-14.2 wrdo=260) PLATELET COUNT (BEAKER) (test sgvh=011) 85 K/CU MM 150-430 MEAN PLATELET VOLUME (BEAKER) (test ayts=758) 8.4 fL 6.5-10.5 NUCLEATED RED BLOOD CELLS (BEAKER) (test 0 /100 WBC 0-0 jbiu=192) NEUTROPHILS RELATIVE PERCENT (BEAKER) (test 86 % gamw=122) LYMPHOCYTES RELATIVE PERCENT (BEAKER) (test 5 % ofqu=723) MONOCYTES RELATIVE PERCENT (BEAKER) (test 8 % rxhg=065) EOSINOPHILS RELATIVE PERCENT (BEAKER) (test 0 % zezm=725) BASOPHILS RELATIVE PERCENT (BEAKER) (test 1 % xxxd=146) NEUTROPHILS ABSOLUTE COUNT (BEAKER) (test 7.64 K/ L 1.80-8.00 bavc=910) LYMPHOCYTES ABSOLUTE COUNT (BEAKER) (test 0.45 K/ L 1.48-4.50 eewc=807) MONOCYTES ABSOLUTE COUNT (BEAKER) (test uyiy=617) 0.70 K/ L 0.00-1.30 EOSINOPHILS ABSOLUTE COUNT (BEAKER) (test 0.01 K/ L 0.00-0.50 xqco=397) BASOPHILS ABSOLUTE COUNT (BEAKER) (test xrzt=691) 0.05 K/ L 0.00-0.20 0.00PT/[id number] 05:22:00 Test Item Value Reference Range Comments PROTIME (BEAKER) (test ffca=450) 18.9 seconds 11.7-14.7 INR (BEAKER) (test dfbs=692) 1.6 <=5.9 PARTIAL THROMBOPLASTIN TIME (BEAKER) (test 29.2 seconds 22.5-36.0 kxqc=033) RECOMMENDED COUMADIN/WARFARIN INR THERAPY RANGESSTANDARD DOSE: 2.0 - 3.0 Includes: PROPHYLAXIS forvenous thrombosis, systemic embolization; TREATMENT for venous thrombosis and/or pulmonary embolus.HIGH RISK: Target INR is 2.5-3.5 for patients with mechanical heart valves.THROMBIN [id number] 05:22:00 Test Item Value Reference Range Comments THROMBIN TIME (BEAKER) (test uscc=774) 18.6 secs 13.8-20.0 PROTHROMBIN [id number] 05:21:00 Test Item Value Reference Range Comments PROTIME (BEAKER) (test nqxd=936) 18.9 seconds 11.7-14.7 INR (BEAKER) (test krkd=074) 1.6 <=5.9 RECOMMENDED COUMADIN/WARFARIN INR THERAPY RANGESSTANDARD DOSE: 2.0 - 3.0 Includes: PROPHYLAXIS forvenous thrombosis, systemic embolization; TREATMENT for venous thrombosis and/or pulmonary embolus.HIGH RISK: Target INR is 2.5-3.5 for patients with mechanical heart valves.POCT-GLUCOSE [id number] 05:20:00 Test Item Value Reference Range Comments POC-GLUCOSE METER (BEAKER) 97 mg/dL 70-110 TESTED AT [address] (test xwcf=9628) [place] [address] POCT-GLUCOSE [id number] 21:11:00 Test Item Value Reference Range Comments POC-GLUCOSE METER (BEAKER) 180 mg/dL 70-110 TESTED AT [address] (test bjho=9041) [place] [address] POCT-GLUCOSE [id number] 17:58:00 Test Item Value Reference Range Comments POC-GLUCOSE METER (BEAKER) 121 mg/dL 70-110 TESTED AT [address] (test myam=0356) [place] [address] POCT-GLUCOSE [id number] 13:45:00 Test Item Value Reference Range Comments POC-GLUCOSE METER (BEAKER) 111 mg/dL 70-110 TESTED AT [address] (test escm=8769) [place] [address] BASIC METABOLIC [id number] 05:37:00 Test Item Value Reference Range Comments SODIUM (BEAKER) (test 137 meq/L 136-145 hvti=890) POTASSIUM (BEAKER) (test 3.7 meq/L 3.5-5.1 bezh=349) CHLORIDE (BEAKER) (test 97 meq/L 98-107 dhjy=339) CO2 (BEAKER) (test 31 meq/L 22-29 uxqk=807) BLOOD UREA NITROGEN 49 mg/dL 7-21 (BEAKER) (test qplj=210) CREATININE (BEAKER) (test 0.92 mg/dL 0.57-1.25 krji=428) GLUCOSE RANDOM (BEAKER) 105 mg/dL 70-105 (test oxyi=839) CALCIUM (BEAKER) (test 8.4 mg/dL 8.4-10.2 txul=683) EGFR (BEAKER) (test mL/min/1.73 sq m INSUFFICIENT CLINICAL DATA ejyr=8942) TO CALCULATE ESTIMATED GFR. BUN AND [id number] 05:37:00 Test Item Value Reference Range Comments BLOOD UREA NITROGEN 49 mg/dL 7-21 (BEAKER) (test mgzy=199) CREATININE (BEAKER) (test 0.92 mg/dL 0.57-1.25 brvs=021) EGFR (BEAKER) (test mL/min/1.73 sq m INSUFFICIENT CLINICAL DATA usii=1022) TO CALCULATE ESTIMATED GFR. [id number] 05:28:00 Test Item Value Reference Range Comments MAGNESIUM (BEAKER) (test qjtj=234) 2.2 mg/dL 1.6-2.6 HEPATIC FUNCTION [id number] 05:28:00 Test Item Value Reference Range Comments TOTAL PROTEIN (BEAKER) (test bmhf=797) 6.6 gm/dL 6.0-8.3 ALBUMIN (BEAKER) (test hqow=1638) 3.5 g/dL 3.5-5.0 BILIRUBIN TOTAL (BEAKER) (test ayfx=796) 1.3 mg/dL 0.2-1.2 BILIRUBIN DIRECT (BEAKER) (test llxd=390) 0.7 mg/dL 0.1-0.5 ALKALINE PHOSPHATASE (BEAKER) (test ithf=019) 82 U/L 40-150 AST (SGOT) (BEAKER) (test kdps=904) 30 U/L 5-34 ALT (SGPT) (BEAKER) (test iqtu=067) 22 U/L 6-55 CBC W/PLT COUNT & AUTO [id number] 05:19:00 Test Item Value Reference Range Comments WHITE BLOOD CELL COUNT (BEAKER) (test bbxa=314) 7.8 K/ L 4.0-10.0 RED BLOOD CELL COUNT (BEAKER) (test zjne=862) 3.35 M/ L 4.20-5.80 HEMOGLOBIN (BEAKER) (test kvdz=600) 10.5 GM/DL 13.0-16.8 HEMATOCRIT (BEAKER) (test ucmn=580) 32.3 % 40.0-50.0 MEAN CORPUSCULAR VOLUME (BEAKER) (test bvcz=938) 96.6 fL 82.0-98.0 MEAN CORPUSCULAR HEMOGLOBIN (BEAKER) (test 31.4 pg 27.0-33.0 rdyx=739) MEAN CORPUSCULAR HEMOGLOBIN CONC (BEAKER) (test 32.6 GM/DL 32.0-36.0 qhty=994) RED CELL DISTRIBUTION WIDTH (BEAKER) (test 14.2 % 10.3-14.2 htud=353) PLATELET COUNT (BEAKER) (test gjig=553) 70 K/CU MM 150-430 MEAN PLATELET VOLUME (BEAKER) (test cikk=247) 9.0 fL 6.5-10.5 NUCLEATED RED BLOOD CELLS (BEAKER) (test 0 /100 WBC 0-0 hizg=780) NEUTROPHILS RELATIVE PERCENT (BEAKER) (test 85 % rupg=043) LYMPHOCYTES RELATIVE PERCENT (BEAKER) (test 6 % vxlr=331) MONOCYTES RELATIVE PERCENT (BEAKER) (test 9 % rjcb=857) EOSINOPHILS RELATIVE PERCENT (BEAKER) (test 0 % yemv=974) BASOPHILS RELATIVE PERCENT (BEAKER) (test 0 % exua=573) NEUTROPHILS ABSOLUTE COUNT (BEAKER) (test 6.62 K/ L 1.80-8.00 efmo=882) LYMPHOCYTES ABSOLUTE COUNT (BEAKER) (test 0.46 K/ L 1.48-4.50 udib=517) MONOCYTES ABSOLUTE COUNT (BEAKER) (test xytg=231) 0.68 K/ L 0.00-1.30 EOSINOPHILS ABSOLUTE COUNT (BEAKER) (test 0.01 K/ L 0.00-0.50 atoe=571) BASOPHILS ABSOLUTE COUNT (BEAKER) (test dhiw=103) 0.03 K/ L 0.00-0.20 [id number] 05:11:00 Test Item Value Reference Range Comments FIBRINOGEN LEVEL (BEAKER) (test ypso=974) 111 mg/dl 225-434 PROTHROMBIN [id number] 05:05:00 Test Item Value Reference Range Comments PROTIME (BEAKER) (test kkcp=439) 18.7 seconds 11.7-14.7 INR (BEAKER) (test bmsd=246) 1.6 <=5.9 RECOMMENDED COUMADIN/WARFARIN INR THERAPY RANGESSTANDARD DOSE: 2.0 - 3.0 Includes: PROPHYLAXIS forvenous thrombosis, systemic embolization; TREATMENT for venous thrombosis and/or pulmonary embolus.HIGH RISK: Target INR is 2.5-3.5 for patients with mechanical heart valves.POCT-GLUCOSE [id number] 23:17:00 Test Item Value Reference Range Comments POC-GLUCOSE METER (BEAKER) 154 mg/dL 70-110 TESTED AT [address] (test jupa=0512) [place] [address] POCT-GLUCOSE [id number] 18:07:00 Test Item Value Reference Range Comments POC-GLUCOSE METER (BEAKER) 172 mg/dL 70-110 TESTED AT [address] (test nzim=6544) [place] [id number] POCT-GLUCOSE [id number] 13:53:00 Test Item Value Reference Range Comments POC-GLUCOSE METER (BEAKER) 106 mg/dL 70-110 TESTED AT [address] (test zxbh=9497) [place] [id number] POCT-GLUCOSE [id number] 10:31:00 Test Item Value Reference Range Comments POC-GLUCOSE METER (BEAKER) 129 mg/dL 70-110 TESTED AT [address] (test hqud=0149) [place] [id number] CBC W/PLT COUNT & AUTO [id number] 07:13:00 Test Item Value Reference Range Comments WHITE BLOOD CELL COUNT (BEAKER) (test acyw=702) 7.3 K/ L 4.0-10.0 RED BLOOD CELL COUNT (BEAKER) (test znao=910) 3.32 M/ L 4.20-5.80 HEMOGLOBIN (BEAKER) (test pzoi=019) 10.8 GM/DL 13.0-16.8 HEMATOCRIT (BEAKER) (test rryq=200) 32.3 % 40.0-50.0 MEAN CORPUSCULAR VOLUME (BEAKER) (test lssu=446) 97.4 fL 82.0-98.0 MEAN CORPUSCULAR HEMOGLOBIN (BEAKER) (test 32.5 pg 27.0-33.0 foot=342) MEAN CORPUSCULAR HEMOGLOBIN CONC (BEAKER) (test 33.4 GM/DL 32.0-36.0 nery=675) RED CELL DISTRIBUTION WIDTH (BEAKER) (test 14.7 % 10.3-14.2 xdra=635) PLATELET COUNT (BEAKER) (test gntq=211) 72 K/CU MM 150-430 MEAN PLATELET VOLUME (BEAKER) (test exww=757) 9.2 fL 6.5-10.5 NUCLEATED RED BLOOD CELLS (BEAKER) (test 0 /100 WBC 0-0 lgum=825) NEUTROPHILS RELATIVE PERCENT (BEAKER) (test 81 % qnqg=506) LYMPHOCYTES RELATIVE PERCENT (BEAKER) (test 8 % srfn=850) MONOCYTES RELATIVE PERCENT (BEAKER) (test 11 % zizh=480) EOSINOPHILS RELATIVE PERCENT (BEAKER) (test 0 % opnb=714) BASOPHILS RELATIVE PERCENT (BEAKER) (test 0 % xvoe=256) NEUTROPHILS ABSOLUTE COUNT (BEAKER) (test 5.91 K/ L 1.80-8.00 nhhx=390) LYMPHOCYTES ABSOLUTE COUNT (BEAKER) (test 0.60 K/ L 1.48-4.50 jbjc=806) MONOCYTES ABSOLUTE COUNT (BEAKER) (test opoh=074) 0.77 K/ L 0.00-1.30 EOSINOPHILS ABSOLUTE COUNT (BEAKER) (test 0.03 K/ L 0.00-0.50 kofj=749) BASOPHILS ABSOLUTE COUNT (BEAKER) (test mvge=650) 0.02 K/ L 0.00-0.20 0.00BASI METABOLIC [id number] 07:10:00 Test Item Value Reference Range Comments SODIUM (BEAKER) (test 136 meq/L 136-145 haty=683) POTASSIUM (BEAKER) (test 3.7 meq/L 3.5-5.1 abaa=058) CHLORIDE (BEAKER) (test 96 meq/L 98-107 rptt=358) CO2 (BEAKER) (test 30 meq/L 22-29 lesq=989) BLOOD UREA NITROGEN 52 mg/dL 7-21 (BEAKER) (test rgiw=015) CREATININE (BEAKER) (test 0.91 mg/dL 0.57-1.25 tccq=967) GLUCOSE RANDOM (BEAKER) 94 mg/dL 70-105 (test jrak=353) CALCIUM (BEAKER) (test 8.6 mg/dL 8.4-10.2 fbui=384) EGFR (BEAKER) (test mL/min/1.73 sq m INSUFFICIENT CLINICAL DATA kpxd=3142) TO CALCULATE ESTIMATED GFR. HEPATIC FUNCTION [id number] 07:09:00 Test Item Value Reference Range Comments TOTAL PROTEIN (BEAKER) (test jdsu=878) 6.8 gm/dL 6.0-8.3 ALBUMIN (BEAKER) (test kkez=3353) 3.5 g/dL 3.5-5.0 BILIRUBIN TOTAL (BEAKER) (test dvln=512) 1.3 mg/dL 0.2-1.2 BILIRUBIN DIRECT (BEAKER) (test yiac=287) 0.7 mg/dL 0.1-0.5 ALKALINE PHOSPHATASE (BEAKER) (test ifmw=009) 84 U/L 40-150 AST (SGOT) (BEAKER) (test cbep=837) 31 U/L 5-34 ALT (SGPT) (BEAKER) (test hflz=022) 23 U/L 6-55 [id number] 06:49:00 Test Item Value Reference Range Comments FIBRINOGEN LEVEL (BEAKER) (test osiw=711) 108 mg/dl 225-434 PROTHROMBIN [id number] 06:43:00 Test Item Value Reference Range Comments PROTIME (BEAKER) (test fpzi=776) 18.5 seconds 11.7-14.7 INR (BEAKER) (test himu=290) 1.5 <=5.9 RECOMMENDED COUMADIN/WARFARIN INR THERAPY RANGESSTANDARD DOSE: 2.0 - 3.0 Includes: PROPHYLAXIS forvenous thrombosis, systemic embolization; TREATMENT for venous thrombosis and/or pulmonary embolus.HIGH RISK: Target INR is 2.5-3.5 for patients with mechanical heart valves.POCT-GLUCOSE [id number] 22:20:00 Test Item Value Reference Range Comments POC-GLUCOSE METER (BEAKER) 188 mg/dL 70-[address] [facility] [address] [facility] (test ngmt=5968) [facility] [address] POCT-GLUCOSE [id number] 17:20:00 Test Item Value Reference Range Comments POC-GLUCOSE METER (BEAKER) 182 mg/dL 70-110 TESTED AT [place] [id number] [facility] (test mgdb=2764) [facility] [address] CBC W/PLT COUNT & AUTO [id number] 14:51:00 Test Item Value Reference Range Comments WHITE BLOOD CELL COUNT (BEAKER) (test vxrc=236) 7.6 K/ L 4.0-10.0 RED BLOOD CELL COUNT (BEAKER) (test azdb=443) 3.30 M/ L 4.20-5.80 HEMOGLOBIN (BEAKER) (test hzus=283) 10.4 GM/DL 13.0-16.8 HEMATOCRIT (BEAKER) (test umwi=893) 31.9 % 40.0-50.0 MEAN CORPUSCULAR VOLUME (BEAKER) (test ylcm=391) 96.9 fL 82.0-98.0 MEAN CORPUSCULAR HEMOGLOBIN (BEAKER) (test 31.5 pg 27.0-33.0 ziwp=367) MEAN CORPUSCULAR HEMOGLOBIN CONC (BEAKER) (test 32.5 GM/DL 32.0-36.0 uxib=099) RED CELL DISTRIBUTION WIDTH (BEAKER) (test 13.9 % 10.3-14.2 rven=678) PLATELET COUNT (BEAKER) (test pkji=286) 56 K/CU MM 150-430 MEAN PLATELET VOLUME (BEAKER) (test linz=050) 9.4 fL 6.5-10.5 NUCLEATED RED BLOOD CELLS (BEAKER) (test 0 /100 WBC 0-0 ceqf=892) NEUTROPHILS RELATIVE PERCENT (BEAKER) (test 83 % tbdj=595) LYMPHOCYTES RELATIVE PERCENT (BEAKER) (test 7 % tdoz=589) MONOCYTES RELATIVE PERCENT (BEAKER) (test 10 % bdwl=662) EOSINOPHILS RELATIVE PERCENT (BEAKER) (test 0 % ozdt=975) BASOPHILS RELATIVE PERCENT (BEAKER) (test 0 % dtdz=535) NEUTROPHILS ABSOLUTE COUNT (BEAKER) (test 6.31 K/ L 1.80-8.00 ezzq=855) LYMPHOCYTES ABSOLUTE COUNT (BEAKER) (test 0.50 K/ L 1.48-4.50 awcx=864) MONOCYTES ABSOLUTE COUNT (BEAKER) (test rbch=521) 0.77 K/ L 0.00-1.30 EOSINOPHILS ABSOLUTE COUNT (BEAKER) (test 0.01 K/ L 0.00-0.50 glxg=683) BASOPHILS ABSOLUTE COUNT (BEAKER) (test gnnj=437) 0.00 K/ L 0.00-0.20 0.00(MANUAL DIFFERENTIAL)[id number] 14:51:00 Test Item Value Reference Range Comments TOTAL COUNTED (BEAKER) (test gmjk=9002) WBC MORPHOLOGY (BEAKER) (test sfwu=885) Normal PLT MORPHOLOGY (BEAKER) (test epki=690) Normal RBC MORPHOLOGY (BEAKER) (test cfyg=557) Normal POCT-GLUCOSE [id number] 12:28:00 Test Item Value Reference Range Comments POC-GLUCOSE METER (BEAKER) 132 mg/dL 70-110 TESTED AT [address] (test bzni=7326) [place] [id number] POCT-GLUCOSE [id number] 08:32:00 Test Item Value Reference Range Comments POC-GLUCOSE METER (BEAKER) 91 mg/dL 70-110 TESTED AT [address] (test mybc=9942) [place] [id number] 07:04:00 Test Item Value Reference Range Comments FIBRINOGEN LEVEL (BEAKER) (test moby=111) 113 mg/dl 225-434 BASIC METABOLIC [id number] 05:26:00 Test Item Value Reference Range Comments SODIUM (BEAKER) (test 137 meq/L 136-145 mbje=533) POTASSIUM (BEAKER) (test 3.4 meq/L 3.5-5.1 myxt=434) CHLORIDE (BEAKER) (test 96 meq/L 98-107 orlw=265) CO2 (BEAKER) (test 31 meq/L 22-29 eoyf=754) BLOOD UREA NITROGEN 54 mg/dL 7-21 (BEAKER) (test pjmd=401) CREATININE (BEAKER) (test 0.98 mg/dL 0.57-1.25 hcmp=021) GLUCOSE RANDOM (BEAKER) 105 mg/dL 70-105 (test ywzg=221) CALCIUM (BEAKER) (test 8.6 mg/dL 8.4-10.2 ccgx=955) EGFR (BEAKER) (test mL/min/1.73 sq m INSUFFICIENT CLINICAL DATA swmc=6315) TO CALCULATE ESTIMATED GFR. PROTHROMBIN [id number] 05:23:00 Test Item Value Reference Range Comments PROTIME (BEAKER) (test wrdn=664) 19.5 seconds 11.7-14.7 INR (BEAKER) (test pggq=855) 1.7 <=5.9 RECOMMENDED COUMADIN/WARFARIN INR THERAPY RANGESSTANDARD DOSE: 2.0 - 3.0 Includes: PROPHYLAXIS forvenous thrombosis, systemic embolization; TREATMENT for venous thrombosis and/or pulmonary embolus.HIGH RISK: Target INR is 2.5-3.5 for patients with mechanical heart valves.HEPATIC FUNCTION [id number] 05:22 :00 Test Item Value Reference Range Comments TOTAL PROTEIN (BEAKER) (test wwme=476) 6.8 gm/dL 6.0-8.3 ALBUMIN (BEAKER) (test bynh=7781) 3.6 g/dL 3.5-5.0 BILIRUBIN TOTAL (BEAKER) (test demx=781) 1.1 mg/dL 0.2-1.2 BILIRUBIN DIRECT (BEAKER) (test cggg=519) 0.7 mg/dL 0.1-0.5 ALKALINE PHOSPHATASE (BEAKER) (test nxzy=430) 87 U/L 40-150 AST (SGOT) (BEAKER) (test gqnt=286) 29 U/L 5-34 ALT (SGPT) (BEAKER) (test jziz=705) 21 U/L 6-55 POCT-GLUCOSE [id number] 22:46:00 Test Item Value Reference Range Comments POC-GLUCOSE METER (BEAKER) 130 mg/dL 70-110 TESTED AT [address] (test pbqd=9138) [facility] [address] POCT-GLUCOSE [id number] 16:56:00 Test Item Value Reference Range Comments POC-GLUCOSE METER (BEAKER) 164 mg/dL 70-110 TESTED AT [address] (test ndqg=2450) [facility] [address] RESPIRATORY PANEL [id number] 15:39:00 Test Item Value Reference Range Comments HUMAN METAPNEUMOVIRUS (BEAKER) (test Not detected Not detected, Inconclusive lhgp=5794) RHINOVIRUS (BEAKER) (test viwi=1654) Not detected Not detected, Inconclusive INFLUENZA A (BEAKER) (test Not detected Not detected, Inconclusive kiry=3618) INFLUENZA A SUBTYPE H1 (BEAKER) Not detected Not detected, Inconclusive (test tcek=8415) INFLUENZA A SUBTYPE H3 (BEAKER) Not detected Not detected, Inconclusive (test smwd=2892) INFLUENZA A SUBTYPE H1-2009 (BEAKER) Not detected Not detected, Inconclusive (test difu=2435) INFLUENZA B (BEAKER) (test Not detected Not detected, Inconclusive asvy=4458) RESPIRATORY SYNCYTIAL VIRUS (BEAKER) Not detected Not detected, Inconclusive (test tpzl=2323) PARAINFLUENZA VIRUS 1 (BEAKER) (test Not detected Not detected, Inconclusive hjmg=8458) PARAINFLUENZA VIRUS 2 (BEAKER) (test Not detected Not detected, Inconclusive gqij=9771) PARAINFLUENZA VIRUS 3 (BEAKER) (test Not detected Not detected, Inconclusive eozu=4500) PARAINFLUENZA VIRUS 4 (BEAKER) (test Not detected Not detected, Inconclusive sfiy=4960) ADENOVIRUS (BEAKER) (test fyxy=1228) Not detected Not detected, Inconclusive CORONAVIRUS 229E (BEAKER) (test Not detected Not detected, Inconclusive mqkz=6450) CORONAVIRUS HKU1 (BEAKER) (test Not detected Not detected, Inconclusive zyfy=6263) CORONAVIRUS NL63 (BEAKER) (test Not detected Not detected, Inconclusive ldwp=3031) CORONAVIRUS OC43 (BEAKER) (test Not detected Not detected, Inconclusive hkha=7720) BORDETELLA PERTUSSIS (BEAKER) (test Not detected Not detected, Inconclusive mazn=5693) CHLAMYDOPHILA PNEUMONIAE (BEAKER) Not detected Not detected, Inconclusive (test upzi=2534) MYCOPLASMA PNEUMONIAE (BEAKER) (test Not detected Not detected, Inconclusive huem=2749) POCT-GLUCOSE [id number] 12:22:00 Test Item Value Reference Range Comments POC-GLUCOSE METER (BEAKER) 113 mg/dL 70-[address] [facility] [address] [place] (test kdaj=4242) [facility] [address] POCT-GLUCOSE [id number] 08:24:00 Test Item Value Reference Range Comments POC-GLUCOSE METER (BEAKER) 96 mg/dL 70-[address] [facility] [address] [place] (test gmuc=6312) [facility] [address] BASIC METABOLIC [id number] 07:27:00 Test Item Value Reference Range Comments SODIUM (BEAKER) (test 140 meq/L 136-145 bsvr=193) POTASSIUM (BEAKER) (test 3.4 meq/L 3.5-5.1 ioqq=830) CHLORIDE (BEAKER) (test 95 meq/L 98-107 maie=055) CO2 (BEAKER) (test 34 meq/L 22-29 ucps=383) BLOOD UREA NITROGEN 54 mg/dL 7-21 (BEAKER) (test eedz=387) CREATININE (BEAKER) (test 1.23 mg/dL 0.57-1.25 hwol=759) GLUCOSE RANDOM (BEAKER) 98 mg/dL 70-105 (test ofra=987) CALCIUM (BEAKER) (test 9.3 mg/dL 8.4-10.2 nswu=662) EGFR (BEAKER) (test mL/min/1.73 sq m INSUFFICIENT CLINICAL DATA mond=6870) TO CALCULATE ESTIMATED GFR. BASIC METABOLIC [id number] 07:21:00 Test Item Value Reference Range Comments SODIUM (BEAKER) (test 139 meq/L 136-145 qhdx=582) POTASSIUM (BEAKER) (test 3.4 meq/L 3.5-5.1 Specimen slightly grxx=003) hemolyzed CHLORIDE (BEAKER) (test 95 meq/L 98-107 agie=259) CO2 (BEAKER) (test 35 meq/L 22-29 vrrm=906) BLOOD UREA NITROGEN 55 mg/dL 7-21 (BEAKER) (test qjxe=559) CREATININE (BEAKER) (test 1.17 mg/dL 0.57-1.25 Specimen slightly ohqp=865) hemolyzed GLUCOSE RANDOM (BEAKER) 97 mg/dL 70-105 (test hybi=949) CALCIUM (BEAKER) (test 9.2 mg/dL 8.4-10.2 yqun=651) EGFR (BEAKER) (test mL/min/1.73 sq m INSUFFICIENT CLINICAL DATA kwux=7143) TO CALCULATE ESTIMATED GFR. HEPATIC FUNCTION [id number] 07:15:00 Test Item Value Reference Range Comments TOTAL PROTEIN (BEAKER) (test 8.0 gm/dL 6.0-8.3 Specimen slightly hemolyzed rrfw=947) ALBUMIN (BEAKER) (test 4.2 g/dL 3.5-5.0 Specimen slightly hemolyzed ewbp=1714) BILIRUBIN TOTAL (BEAKER) (test 1.3 mg/dL 0.2-1.2 Specimen slightly hemolyzed nisq=498) BILIRUBIN DIRECT (BEAKER) (test 0.7 mg/dL 0.1-0.5 Specimen slightly hemolyzed tcwq=790) ALKALINE PHOSPHATASE (BEAKER) 99 U/L 40-150 (test xent=091) AST (SGOT) (BEAKER) (test 35 U/L 5-34 Specimen slightly hemolyzed ofsl=071) ALT (SGPT) (BEAKER) (test 24 U/L 6-55 Specimen slightly hemolyzed pnqe=186) [id number] 07:08:00 Test Item Value Reference Range Comments FIBRINOGEN LEVEL (BEAKER) (test vemh=930) 124 mg/dl 225-434 CBC W/PLT COUNT & AUTO [id number] 07:06:00 Test Item Value Reference Range Comments WHITE BLOOD CELL COUNT (BEAKER) (test aygr=150) 8.4 K/ L 4.0-10.0 RED BLOOD CELL COUNT (BEAKER) (test zgvv=271) 3.60 M/ L 4.20-5.80 HEMOGLOBIN (BEAKER) (test szvz=185) 11.5 GM/DL 13.0-16.8 HEMATOCRIT (BEAKER) (test imqy=962) 35.8 % 40.0-50.0 MEAN CORPUSCULAR VOLUME (BEAKER) (test ywpb=598) 99.4 fL 82.0-98.0 MEAN CORPUSCULAR HEMOGLOBIN (BEAKER) (test 32.0 pg 27.0-33.0 fjau=858) MEAN CORPUSCULAR HEMOGLOBIN CONC (BEAKER) (test 32.2 GM/DL 32.0-36.0 wiit=854) RED CELL DISTRIBUTION WIDTH (BEAKER) (test 14.5 % 10.3-14.2 fxgx=358) PLATELET COUNT (BEAKER) (test ozdv=063) 57 K/CU MM 150-430 MEAN PLATELET VOLUME (BEAKER) (test adqd=687) 10.0 fL 6.5-10.5 NUCLEATED RED BLOOD CELLS (BEAKER) (test 0 /100 WBC 0-0 dswy=082) NEUTROPHILS RELATIVE PERCENT (BEAKER) (test 87 % goqv=581) LYMPHOCYTES RELATIVE PERCENT (BEAKER) (test 4 % fczg=726) MONOCYTES RELATIVE PERCENT (BEAKER) (test 9 % lnzk=506) EOSINOPHILS RELATIVE PERCENT (BEAKER) (test 0 % umyc=850) BASOPHILS RELATIVE PERCENT (BEAKER) (test 0 % wvqp=189) NEUTROPHILS ABSOLUTE COUNT (BEAKER) (test 7.25 K/ L 1.80-8.00 rjia=200) LYMPHOCYTES ABSOLUTE COUNT (BEAKER) (test 0.34 K/ L 1.48-4.50 biyn=381) MONOCYTES ABSOLUTE COUNT (BEAKER) (test xwte=185) 0.77 K/ L 0.00-1.30 EOSINOPHILS ABSOLUTE COUNT (BEAKER) (test 0.01 K/ L 0.00-0.50 zcvh=672) BASOPHILS ABSOLUTE COUNT (BEAKER) (test fpmo=664) 0.00 K/ L 0.00-0.20 PROTHROMBIN [id number] 07:03:00 Test Item Value Reference Range Comments PROTIME (BEAKER) (test pcrf=695) 18.6 seconds 11.7-14.7 INR (BEAKER) (test orzk=258) 1.6 <=5.9 RECOMMENDED COUMADIN/WARFARIN INR THERAPY RANGESSTANDARD DOSE: 2.0 - 3.0 Includes: PROPHYLAXIS forvenous thrombosis, systemic embolization; TREATMENT for venous thrombosis and/or pulmonary embolus.HIGH RISK: Target INR is 2.5-3.5 for patients with mechanical heart valves.POCT-GLUCOSE [id number] 21:23:00 Test Item Value Reference Range Comments POC-GLUCOSE METER (BEAKER) 197 mg/dL 70-110 TESTED AT [address] (test fsbz=3835) [facility] [address] POCT-GLUCOSE [id number] 18:30:00 Test Item Value Reference Range Comments POC-GLUCOSE METER (BEAKER) 147 mg/dL 70-110 TESTED AT [address] (test vlxc=6993) [facility] [address] POCT-GLUCOSE [id number] 13:46:00 Test Item Value Reference Range Comments POC-GLUCOSE METER (BEAKER) 113 mg/dL 70-[address] [facility] [address] [facility] (test yrjj=0915) [facility] [address] POCT-GLUCOSE [id number] 07:49:00 Test Item Value Reference Range Comments POC-GLUCOSE METER (BEAKER) 134 mg/dL 70-[address] [facility] [address] [facility] (test mfvh=1717) [facility] [address] PERIPHERAL BLOOD SMEAR - HOLD [id number] 06:35:00 Test Item Value Reference Range Comments PERIPHERAL SMEAR SAVE (BEAKER) (test lwdb=2311) saved BASIC METABOLIC [id number] 05:44:00 Test Item Value Reference Range Comments SODIUM (BEAKER) (test 141 meq/L 136-145 qyye=856) POTASSIUM (BEAKER) (test 3.6 meq/L 3.5-5.1 foda=205) CHLORIDE (BEAKER) (test 99 meq/L 98-107 vttw=582) CO2 (BEAKER) (test 31 meq/L 22-29 klaj=904) BLOOD UREA NITROGEN 59 mg/dL 7-21 (BEAKER) (test vnas=262) CREATININE (BEAKER) (test 1.09 mg/dL 0.57-1.25 nudy=991) GLUCOSE RANDOM (BEAKER) 133 mg/dL 70-105 (test dgvs=388) CALCIUM (BEAKER) (test 8.6 mg/dL 8.4-10.2 vlct=283) EGFR (BEAKER) (test mL/min/1.73 sq m INSUFFICIENT CLINICAL DATA kuno=6339) TO CALCULATE ESTIMATED GFR. CBC W/PLT COUNT & AUTO [id number] 05:41:00 Test Item Value Reference Range Comments WHITE BLOOD CELL COUNT (BEAKER) (test rkli=595) 5.8 K/ L 4.0-10.0 RED BLOOD CELL COUNT (BEAKER) (test gwmd=390) 3.13 M/ L 4.20-5.80 HEMOGLOBIN (BEAKER) (test vsep=098) 9.8 GM/DL 13.0-16.8 HEMATOCRIT (BEAKER) (test nooi=745) 30.7 % 40.0-50.0 MEAN CORPUSCULAR VOLUME (BEAKER) (test zkjs=739) 98.4 fL 82.0-98.0 MEAN CORPUSCULAR HEMOGLOBIN (BEAKER) (test 31.3 pg 27.0-33.0 apky=868) MEAN CORPUSCULAR HEMOGLOBIN CONC (BEAKER) (test 31.9 GM/DL 32.0-36.0 mcxu=690) RED CELL DISTRIBUTION WIDTH (BEAKER) (test 13.7 % 10.3-14.2 fjfc=224) PLATELET COUNT (BEAKER) (test rlja=013) 52 K/CU MM 150-430 MEAN PLATELET VOLUME (BEAKER) (test fbhd=931) 9.1 fL 6.5-10.5 NUCLEATED RED BLOOD CELLS (BEAKER) (test 0 /100 WBC 0-0 jxsl=921) NEUTROPHILS RELATIVE PERCENT (BEAKER) (test 92 % vaeh=947) LYMPHOCYTES RELATIVE PERCENT (BEAKER) (test 3 % pdaf=913) MONOCYTES RELATIVE PERCENT (BEAKER) (test 4 % ewhm=176) EOSINOPHILS RELATIVE PERCENT (BEAKER) (test 0 % rkxt=466) BASOPHILS RELATIVE PERCENT (BEAKER) (test 0 % ygyf=761) NEUTROPHILS ABSOLUTE COUNT (BEAKER) (test 5.33 K/ L 1.80-8.00 wwpk=629) LYMPHOCYTES ABSOLUTE COUNT (BEAKER) (test 0.19 K/ L 1.48-4.50 yjgm=082) MONOCYTES ABSOLUTE COUNT (BEAKER) (test hhiv=435) 0.24 K/ L 0.00-1.30 EOSINOPHILS ABSOLUTE COUNT (BEAKER) (test 0.01 K/ L 0.00-0.50 jcjg=619) BASOPHILS ABSOLUTE COUNT (BEAKER) (test mmxm=893) 0.03 K/ L 0.00-0.20 [id number] 05:37:00 Test Item Value Reference Range Comments FIBRINOGEN LEVEL (BEAKER) (test uglb=063) 117 mg/dl 225-434 HEPATIC FUNCTION [id number] 05:34:00 Test Item Value Reference Range Comments TOTAL PROTEIN (BEAKER) (test tnwa=609) 6.9 gm/dL 6.0-8.3 ALBUMIN (BEAKER) (test dukx=7364) 3.6 g/dL 3.5-5.0 BILIRUBIN TOTAL (BEAKER) (test fjiv=659) 0.9 mg/dL 0.2-1.2 BILIRUBIN DIRECT (BEAKER) (test ehpb=496) 0.6 mg/dL 0.1-0.5 ALKALINE PHOSPHATASE (BEAKER) (test ufni=852) 86 U/L 40-150 AST (SGOT) (BEAKER) (test jlor=485) 30 U/L 5-34 ALT (SGPT) (BEAKER) (test dlca=601) 20 U/L 6-55 PROTHROMBIN [id number] 05:32:00 Test Item Value Reference Range Comments PROTIME (BEAKER) (test ziow=060) 19.3 seconds 11.7-14.7 INR (BEAKER) (test ovfy=828) 1.6 <=5.9 RECOMMENDED COUMADIN/WARFARIN INR THERAPY RANGESSTANDARD DOSE: 2.0 - 3.0 Includes: PROPHYLAXIS forvenous thrombosis, systemic embolization; TREATMENT for venous thrombosis and/or pulmonary embolus.HIGH RISK: Target INR is 2.5-3.5 for patients with mechanical heart valves.POCT-GLUCOSE [id number] 23:16:00 Test Item Value Reference Range Comments POC-GLUCOSE METER (BEAKER) 221 mg/dL 70-110 TESTED AT [address] (test oohr=9223) [place] [id number] POCT-GLUCOSE [id number] 16:13:00 Test Item Value Reference Range Comments POC-GLUCOSE METER (BEAKER) 117 mg/dL 70-110 TESTED AT [address] (test siba=2765) [place] [id number] POCT-GLUCOSE [id number] 12:52:00 Test Item Value Reference Range Comments POC-GLUCOSE METER ([facility]) 91 mg/dL 70-110 TESTED AT [address] (test twjo=5639) [place] [id number] CBC W/PLT COUNT & AUTO [id number] 06:44:00 Test Item Value Reference Range Comments WHITE BLOOD CELL COUNT (BEAKER) (test mbee=207) 6.9 K/ L 4.0-10.0 RED BLOOD CELL COUNT (BEAKER) (test mdtn=378) 3.13 M/ L 4.20-5.80 HEMOGLOBIN (BEAKER) (test mwus=253) 9.9 GM/DL 13.0-16.8 HEMATOCRIT (BEAKER) (test evnw=821) 30.8 % 40.0-50.0 MEAN CORPUSCULAR VOLUME (BEAKER) (test ofqt=821) 98.6 fL 82.0-98.0 MEAN CORPUSCULAR HEMOGLOBIN (BEAKER) (test 31.7 pg 27.0-33.0 wvzx=676) MEAN CORPUSCULAR HEMOGLOBIN CONC (BEAKER) (test 32.1 GM/DL 32.0-36.0 goyf=014) RED CELL DISTRIBUTION WIDTH (BEAKER) (test 13.8 % 10.3-14.2 gnyj=930) PLATELET COUNT (BEAKER) (test muhc=288) 43 K/CU MM 150-430 MEAN PLATELET VOLUME (BEAKER) (test xlcj=059) 9.5 fL 6.5-10.5 NUCLEATED RED BLOOD CELLS (BEAKER) (test 0 /100 WBC 0-0 bich=691) NEUTROPHILS RELATIVE PERCENT (BEAKER) (test 84 % pzsj=954) LYMPHOCYTES RELATIVE PERCENT (BEAKER) (test 5 % uvwu=248) MONOCYTES RELATIVE PERCENT (BEAKER) (test 11 % ywrm=728) EOSINOPHILS RELATIVE PERCENT (BEAKER) (test 0 % ureg=584) BASOPHILS RELATIVE PERCENT (BEAKER) (test 0 % dmaw=568) NEUTROPHILS ABSOLUTE COUNT (BEAKER) (test 5.73 K/ L 1.80-8.00 ogou=102) LYMPHOCYTES ABSOLUTE COUNT (BEAKER) (test 0.34 K/ L 1.48-4.50 cbci=288) MONOCYTES ABSOLUTE COUNT (BEAKER) (test dlvh=030) 0.77 K/ L 0.00-1.30 EOSINOPHILS ABSOLUTE COUNT (BEAKER) (test 0.01 K/ L 0.00-0.50 jebf=570) BASOPHILS ABSOLUTE COUNT (BEAKER) (test iexi=587) 0.00 K/ L 0.00-0.20 0.00BASI METABOLIC [id number] 06:21:00 Test Item Value Reference Range Comments SODIUM (BEAKER) (test 141 meq/L 136-145 tged=954) POTASSIUM (BEAKER) (test 3.6 meq/L 3.5-5.1 ivwm=556) CHLORIDE (BEAKER) (test 98 meq/L 98-107 veyd=230) CO2 (BEAKER) (test 31 meq/L 22-29 gstp=345) BLOOD UREA NITROGEN 60 mg/dL 7-21 (BEAKER) (test ienh=594) CREATININE (BEAKER) (test 1.06 mg/dL 0.57-1.25 cgkn=160) GLUCOSE RANDOM (BEAKER) 88 mg/dL 70-105 (test rqyv=715) CALCIUM (BEAKER) (test 9.3 mg/dL 8.4-10.2 qhws=654) EGFR (BEAKER) (test mL/min/1.73 sq m INSUFFICIENT CLINICAL DATA vxhc=9520) TO CALCULATE ESTIMATED GFR. [id number] 06:20:00 Test Item Value Reference Range Comments FIBRINOGEN LEVEL (BEAKER) (test uozg=285) 128 mg/dl 225-434 HEPATIC FUNCTION [id number] 06:18:00 Test Item Value Reference Range Comments TOTAL PROTEIN (BEAKER) (test vipt=143) 7.7 gm/dL 6.0-8.3 ALBUMIN (BEAKER) (test oawz=5926) 4.1 g/dL 3.5-5.0 BILIRUBIN TOTAL (BEAKER) (test txez=380) 1.0 mg/dL 0.2-1.2 BILIRUBIN DIRECT (BEAKER) (test jqfw=238) 0.6 mg/dL 0.1-0.5 ALKALINE PHOSPHATASE (BEAKER) (test ysxk=257) 89 U/L 40-150 AST (SGOT) (BEAKER) (test myxb=200) 30 U/L 5-34 ALT (SGPT) (BEAKER) (test nmfq=174) 17 U/L 6-55 PROTHROMBIN [id number] 06:15:00 Test Item Value Reference Range Comments PROTIME (BEAKER) (test labd=920) 19.5 seconds 11.7-14.7 INR (BEAKER) (test uxqp=719) 1.7 <=5.9 RECOMMENDED COUMADIN/WARFARIN INR THERAPY RANGESSTANDARD DOSE: 2.0 - 3.0 Includes: PROPHYLAXIS forvenous thrombosis, systemic embolization; TREATMENT for venous thrombosis and/or pulmonary embolus.HIGH RISK: Target INR is 2.5-3.5 for patients with mechanical heart valves.POCT-GLUCOSE [id number] 21:14:00 Test Item Value Reference Range Comments POC-GLUCOSE METER (BEAKER) 133 mg/dL 70-110 TESTED AT [address] (test fhbl=8418) [facility] [address] POCT-GLUCOSE [id number] 17:48:00 Test Item Value Reference Range Comments POC-GLUCOSE METER (BEAKER) 236 mg/dL 70-[address] [facility] [address] [facility] (test movy=4095) [facility] [address] POCT-GLUCOSE [id number] 08:18:00 Test Item Value Reference Range Comments POC-GLUCOSE METER (BEAKER) 86 mg/dL 70-110 TESTED AT [place] [id number] [facility] (test zhjp=7500) [facility] [address] BASIC METABOLIC [id number] 05:37:00 Test Item Value Reference Range Comments SODIUM (BEAKER) (test 140 meq/L 136-145 pgvb=065) POTASSIUM (BEAKER) (test 3.8 meq/L 3.5-5.1 hpso=310) CHLORIDE (BEAKER) (test 96 meq/L 98-107 esjl=876) CO2 (BEAKER) (test 32 meq/L 22-29 rais=644) BLOOD UREA NITROGEN 64 mg/dL 7-21 (BEAKER) (test rgve=004) CREATININE (BEAKER) (test 1.25 mg/dL 0.57-1.25 rbiz=997) GLUCOSE RANDOM (BEAKER) 129 mg/dL 70-105 (test fbls=978) CALCIUM (BEAKER) (test 9.4 mg/dL 8.4-10.2 fkpq=958) EGFR (BEAKER) (test mL/min/1.73 sq m INSUFFICIENT CLINICAL DATA rtwk=3799) TO CALCULATE ESTIMATED GFR. HEPATIC FUNCTION [id number] 05:30:00 Test Item Value Reference Range Comments TOTAL PROTEIN (BEAKER) (test tezo=448) 8.2 gm/dL 6.0-8.3 ALBUMIN (BEAKER) (test euqi=8314) 4.3 g/dL 3.5-5.0 BILIRUBIN TOTAL (BEAKER) (test tooa=529) 1.0 mg/dL 0.2-1.2 BILIRUBIN DIRECT (BEAKER) (test qhuq=469) 0.6 mg/dL 0.1-0.5 ALKALINE PHOSPHATASE (BEAKER) (test jnla=849) 92 U/L 40-150 AST (SGOT) (BEAKER) (test bsxh=399) 27 U/L 5-34 ALT (SGPT) (BEAKER) (test azby=167) 18 U/L 6-55 [id number] 05:29:00 Test Item Value Reference Range Comments PHOSPHORUS (BEAKER) (test kgdi=041) 4.6 mg/dL 2.3-4.7 [id number] 05:29:00 Test Item Value Reference Range Comments MAGNESIUM (BEAKER) (test napz=667) 2.3 mg/dL 1.6-2.6 [id number] 05:00:00 Test Item Value Reference Range Comments FIBRINOGEN LEVEL (BEAKER) (test rqrz=564) 139 mg/dl 225-434 [id number] 04:55:00 Test Item Value Reference Range Comments PARTIAL THROMBOPLASTIN TIME (BEAKER) (test 29.7 seconds 22.5-36.0 xyjm=223) PROTHROMBIN [id number] 04:54:00 Test Item Value Reference Range Comments PROTIME (BEAKER) (test lhzh=814) 18.8 seconds 11.7-14.7 INR (BEAKER) (test gogz=932) 1.6 <=5.9 RECOMMENDED COUMADIN/WARFARIN INR THERAPY RANGESSTANDARD DOSE: 2.0 - 3.0 Includes: PROPHYLAXIS forvenous thrombosis, systemic embolization; TREATMENT for venous thrombosis and/or pulmonary embolus.HIGH RISK: Target INR is 2.5-3.5 for patients with mechanical heart valves.CBC W/PLT COUNT & AUTO [id number] 04:52:00 Test Item Value Reference Range Comments WHITE BLOOD CELL COUNT (BEAKER) (test nauo=084) 6.9 K/ L 4.0-10.0 RED BLOOD CELL COUNT (BEAKER) (test redp=903) 3.13 M/ L 4.20-5.80 HEMOGLOBIN (BEAKER) (test wbyk=126) 10.1 GM/DL 13.0-16.8 HEMATOCRIT (BEAKER) (test dnlf=351) 30.7 % 40.0-50.0 MEAN CORPUSCULAR VOLUME (BEAKER) (test ytpm=278) 98.1 fL 82.0-98.0 MEAN CORPUSCULAR HEMOGLOBIN (BEAKER) (test 32.2 pg 27.0-33.0 qklu=352) MEAN CORPUSCULAR HEMOGLOBIN CONC (BEAKER) (test 32.8 GM/DL 32.0-36.0 mpxt=271) RED CELL DISTRIBUTION WIDTH (BEAKER) (test 13.8 % 10.3-14.2 fqek=371) PLATELET COUNT (BEAKER) (test yxkv=995) 67 K/CU MM 150-430 MEAN PLATELET VOLUME (BEAKER) (test sgrn=720) 7.6 fL 6.5-10.5 NUCLEATED RED BLOOD CELLS (BEAKER) (test 0 /100 WBC 0-0 xpli=999) NEUTROPHILS RELATIVE PERCENT (BEAKER) (test 87 % rsos=771) LYMPHOCYTES RELATIVE PERCENT (BEAKER) (test 5 % acfz=177) MONOCYTES RELATIVE PERCENT (BEAKER) (test 8 % ffpw=520) EOSINOPHILS RELATIVE PERCENT (BEAKER) (test 0 % jnfr=814) BASOPHILS RELATIVE PERCENT (BEAKER) (test 0 % qkhw=709) NEUTROPHILS ABSOLUTE COUNT (BEAKER) (test 6.02 K/ L 1.80-8.00 jpqd=045) LYMPHOCYTES ABSOLUTE COUNT (BEAKER) (test 0.32 K/ L 1.48-4.50 rsiu=981) MONOCYTES ABSOLUTE COUNT (BEAKER) (test vrmj=468) 0.56 K/ L 0.00-1.30 EOSINOPHILS ABSOLUTE COUNT (BEAKER) (test 0.01 K/ L 0.00-0.50 ilsw=720) BASOPHILS ABSOLUTE COUNT (BEAKER) (test uujd=586) 0.00 K/ L 0.00-0.20 0.00POCT-GLUCOSE [id number] 21:17:00 Test Item Value Reference Range Comments POC-GLUCOSE METER (BEAKER) 191 mg/dL 70-110 TESTED AT [address] (test neii=0007) [facility] [address] POCT-GLUCOSE [id number] 17:29:00 Test Item Value Reference Range Comments POC-GLUCOSE METER (BEAKER) 161 mg/dL 70-110 TESTED AT [address] (test tapv=1329) [facility] [address] POCT-GLUCOSE [id number] 11:48:00 Test Item Value Reference Range Comments POC-GLUCOSE METER (BEAKER) 103 mg/dL 70-110 TESTED AT [address] (test qwkw=3615) [facility] [address] POCT-GLUCOSE [id number] 07:43:00 Test Item Value Reference Range Comments POC-GLUCOSE METER (BEAKER) 100 mg/dL 70-[address] [facility] [address] [facility] (test uoxu=8579) [facility] [address] BASIC METABOLIC [id number] 04:34:00 Test Item Value Reference Range Comments SODIUM (BEAKER) (test 139 meq/L 136-145 wcdt=662) POTASSIUM (BEAKER) (test 3.5 meq/L 3.5-5.1 shkd=696) CHLORIDE (BEAKER) (test 94 meq/L 98-107 huzv=974) CO2 (BEAKER) (test 33 meq/L 22-29 ibnp=794) BLOOD UREA NITROGEN 64 mg/dL 7-21 (BEAKER) (test zumv=079) CREATININE (BEAKER) (test 1.16 mg/dL 0.57-1.25 bcmh=602) GLUCOSE RANDOM (BEAKER) 122 mg/dL 70-105 (test zlbu=223) CALCIUM (BEAKER) (test 9.2 mg/dL 8.4-10.2 zkkf=055) EGFR (BEAKER) (test mL/min/1.73 sq m INSUFFICIENT CLINICAL DATA ikcf=8656) TO CALCULATE ESTIMATED GFR. [id number] 04:33:00 Test Item Value Reference Range Comments MAGNESIUM (BEAKER) (test vnau=316) 2.2 mg/dL 1.6-2.6 [id number] 04:33:00 Test Item Value Reference Range Comments PHOSPHORUS (BEAKER) (test rbts=425) 3.8 mg/dL 2.3-4.7 HEPATIC FUNCTION [id number] 04:33:00 Test Item Value Reference Range Comments TOTAL PROTEIN (BEAKER) (test ruya=805) 7.7 gm/dL 6.0-8.3 ALBUMIN (BEAKER) (test atmz=0526) 4.2 g/dL 3.5-5.0 BILIRUBIN TOTAL (BEAKER) (test rvyg=037) 0.9 mg/dL 0.2-1.2 BILIRUBIN DIRECT (BEAKER) (test qlgy=061) 0.6 mg/dL 0.1-0.5 ALKALINE PHOSPHATASE (BEAKER) (test pxsx=929) 87 U/L 40-150 AST (SGOT) (BEAKER) (test ulsk=395) 26 U/L 5-34 ALT (SGPT) (BEAKER) (test irhv=019) 15 U/L 6-55 [id number] 04:30:00 Test Item Value Reference Range Comments FIBRINOGEN LEVEL (BEAKER) (test qxel=950) 137 mg/dl 225-434 [id number] 04:25:00 Test Item Value Reference Range Comments PARTIAL THROMBOPLASTIN TIME (BEAKER) (test 30.2 seconds 22.5-36.0 qjbz=752) PROTHROMBIN [id number] 04:24:00 Test Item Value Reference Range Comments PROTIME (BEAKER) (test jsyp=791) 19.5 seconds 11.7-14.7 INR (BEAKER) (test ysei=462) 1.7 <=5.9 RECOMMENDED COUMADIN/WARFARIN INR THERAPY RANGESSTANDARD DOSE: 2.0 - 3.0 Includes: PROPHYLAXIS forvenous thrombosis, systemic embolization; TREATMENT for venous thrombosis and/or pulmonary embolus.HIGH RISK: Target INR is 2.5-3.5 for patients with mechanical heart valves.CBC W/PLT COUNT & AUTO [id number] 04:19:00 Test Item Value Reference Range Comments WHITE BLOOD CELL COUNT (BEAKER) (test xsko=954) 6.9 K/ L 4.0-10.0 RED BLOOD CELL COUNT (BEAKER) (test sorw=395) 2.95 M/ L 4.20-5.80 HEMOGLOBIN (BEAKER) (test dvjt=901) 9.7 GM/DL 13.0-16.8 HEMATOCRIT (BEAKER) (test cquj=080) 28.9 % 40.0-50.0 MEAN CORPUSCULAR VOLUME (BEAKER) (test pgyr=479) 98.1 fL 82.0-98.0 MEAN CORPUSCULAR HEMOGLOBIN (BEAKER) (test 32.7 pg 27.0-33.0 yjpp=072) MEAN CORPUSCULAR HEMOGLOBIN CONC (BEAKER) (test 33.4 GM/DL 32.0-36.0 cmjl=218) RED CELL DISTRIBUTION WIDTH (BEAKER) (test 14.4 % 10.3-14.2 brzm=340) PLATELET COUNT (BEAKER) (test lxgv=603) 65 K/CU MM 150-430 MEAN PLATELET VOLUME (BEAKER) (test cdzo=211) 8.4 fL 6.5-10.5 NUCLEATED RED BLOOD CELLS (BEAKER) (test 0 /100 WBC 0-0 bpqm=921) NEUTROPHILS RELATIVE PERCENT (BEAKER) (test 85 % ccqq=715) LYMPHOCYTES RELATIVE PERCENT (BEAKER) (test 6 % pldm=091) MONOCYTES RELATIVE PERCENT (BEAKER) (test 9 % zinw=437) EOSINOPHILS RELATIVE PERCENT (BEAKER) (test 0 % roox=533) BASOPHILS RELATIVE PERCENT (BEAKER) (test 0 % ypfu=254) NEUTROPHILS ABSOLUTE COUNT (BEAKER) (test 5.83 K/ L 1.80-8.00 ibip=654) LYMPHOCYTES ABSOLUTE COUNT (BEAKER) (test 0.38 K/ L 1.48-4.50 lbsj=710) MONOCYTES ABSOLUTE COUNT (BEAKER) (test ryji=518) 0.65 K/ L 0.00-1.30 EOSINOPHILS ABSOLUTE COUNT (BEAKER) (test 0.02 K/ L 0.00-0.50 ncha=349) BASOPHILS ABSOLUTE COUNT (BEAKER) (test uikn=656) 0.02 K/ L 0.00-0.20 0.00POCT-GLUCOSE [id number] 17:17:00 Test Item Value Reference Range Comments POC-GLUCOSE METER (BEAKER) 149 mg/dL 70-110 TESTED AT [address] (test ytrb=3934) [place] [id number] POCT-GLUCOSE [id number] 13:08:00 Test Item Value Reference Range Comments POC-GLUCOSE METER (BEAKER) 106 mg/dL 70-110 TESTED AT [address] (test helu=9103) [place] [id number] CBC W/PLT COUNT & AUTO [id number] 08:13:00 Test Item Value Reference Range Comments WHITE BLOOD CELL COUNT (BEAKER) 5.5 K/ L 4.0-10.0 (test vxfu=163) RED BLOOD CELL COUNT (BEAKER) 2.95 M/ L 4.20-5.80 (test qzzg=268) HEMOGLOBIN (BEAKER) (test 9.5 GM/DL 13.0-16.8 boxr=374) HEMATOCRIT (BEAKER) (test 29.1 % 40.0-50.0 detd=914) MEAN CORPUSCULAR VOLUME 98.4 fL 82.0-98.0 (BEAKER) (test rhnd=722) MEAN CORPUSCULAR HEMOGLOBIN 32.2 pg 27.0-33.0 (BEAKER) (test gveg=664) MEAN CORPUSCULAR HEMOGLOBIN 32.8 GM/DL 32.0-36.0 CONC (BEAKER) (test ctwn=324) RED CELL DISTRIBUTION WIDTH 13.8 % 10.3-14.2 (BEAKER) (test ikyx=323) PLATELET COUNT (BEAKER) (test K/CU MM 150-430 plt clumps, see manual plt owqe=034) count MEAN PLATELET VOLUME (BEAKER) 9.2 fL 6.5-10.5 (test xpzb=126) NUCLEATED RED BLOOD CELLS 0 /100 WBC 0-0 (BEAKER) (test siug=392) NEUTROPHILS RELATIVE PERCENT 85 % (BEAKER) (test bihr=940) LYMPHOCYTES RELATIVE PERCENT 4 % (BEAKER) (test odpr=844) MONOCYTES RELATIVE PERCENT 10 % (BEAKER) (test ytdo=485) EOSINOPHILS RELATIVE PERCENT 0 % (BEAKER) (test yuug=493) BASOPHILS RELATIVE PERCENT 0 % (BEAKER) (test qlsh=685) NEUTROPHILS ABSOLUTE COUNT 4.72 K/ L 1.80-8.00 (BEAKER) (test ioww=439) LYMPHOCYTES ABSOLUTE COUNT 0.23 K/ L 1.48-4.50 (BEAKER) (test jjly=416) MONOCYTES ABSOLUTE COUNT 0.57 K/ L 0.00-1.30 (BEAKER) (test sozl=064) EOSINOPHILS ABSOLUTE COUNT 0.01 K/ L 0.00-0.50 (BEAKER) (test wdqr=515) BASOPHILS ABSOLUTE COUNT 0.01 K/ L 0.00-0.20 (BEAKER) (test obwr=154) 0.00(MANUAL DIFFERENTIAL)2016-09-13 08:13:00 Test Item Value Reference Range Comments TOTAL COUNTED (BEAKER) (test qkol=7277) WBC MORPHOLOGY (BEAKER) (test gthe=243) Normal LARGE PLT(BEAKER) (test beip=6408) Present CLUMPED PLATELETS (BEAKER) (test qtwe=306) Present ANISOCYTOSIS (BEAKER) (test bkqw=977) 1+ few HYPOCHROMIA (BEAKER) (test pfkj=105) 1+ few MACROCYTES (BEAKER) (test kmhr=437) 1+ few OVALOCYTES (BEAKER) (test yjoz=506) 1+ few POIKILOCYTES (BEAKER) (test fmnk=699) 1+ few PLATELET COUNT BY MANUAL [id number] 08:13:00 Test Item Value Reference Range Comments PLATELET COUNT MANUAL (BEAKER) (test jxty=8262) 60 K/CU MM 150-430 POCT-GLUCOSE [id number] 07:37:00 Test Item Value Reference Range Comments POC-GLUCOSE METER (BEAKER) 113 mg/dL 70-[address] [facility] [address] [facility] (test uuvf=0636) [facility] [address] BASIC METABOLIC [id number] 06:17:00 Test Item Value Reference Range Comments SODIUM (BEAKER) (test 141 meq/L 136-145 fqle=490) POTASSIUM (BEAKER) (test 3.7 meq/L 3.5-5.1 xhbr=597) CHLORIDE (BEAKER) (test 98 meq/L 98-107 lhbb=278) CO2 (BEAKER) (test 33 meq/L 22-29 tsva=189) BLOOD UREA NITROGEN 65 mg/dL 7-21 (BEAKER) (test xppg=653) CREATININE (BEAKER) (test 1.15 mg/dL 0.57-1.25 dxpr=851) GLUCOSE RANDOM (BEAKER) 115 mg/dL 70-105 (test ddjl=397) CALCIUM (BEAKER) (test 9.0 mg/dL 8.4-10.2 lfvc=655) EGFR (BEAKER) (test mL/min/1.73 sq m INSUFFICIENT CLINICAL DATA btfy=2150) TO CALCULATE ESTIMATED GFR. [id number] 05:59:00 Test Item Value Reference Range Comments FIBRINOGEN LEVEL (BEAKER) (test udqs=395) 157 mg/dl 225-434 [id number] 05:53:00 Test Item Value Reference Range Comments PARTIAL THROMBOPLASTIN TIME (BEAKER) (test 31.2 seconds 22.5-36.0 conn=131) PROTHROMBIN [id number] 05:52:00 Test Item Value Reference Range Comments PROTIME (BEAKER) (test vzpp=561) 20.3 seconds 11.7-14.7 INR (BEAKER) (test ucmj=428) 1.7 <=5.9 RECOMMENDED COUMADIN/WARFARIN INR THERAPY RANGESSTANDARD DOSE: 2.0 - 3.0 Includes: PROPHYLAXIS forvenous thrombosis, systemic embolization; TREATMENT for venous thrombosis and/or pulmonary embolus.HIGH RISK: Target INR is 2.5-3.5 for patients with mechanical heart valves.POCT-GLUCOSE [id number] 21:09:00 Test Item Value Reference Range Comments POC-GLUCOSE METER (BEAKER) 233 mg/dL 70-110 TESTED AT [address] (test wjmf=8807) [place] [address] POCT-GLUCOSE [id number] 13:03:00 Test Item Value Reference Range Comments POC-GLUCOSE METER (BEAKER) 93 mg/dL 70-110 TESTED AT [address] (test ikpk=0980) [place] [address] BASIC METABOLIC [id number] 07:06:00 Test Item Value Reference Range Comments SODIUM (BEAKER) (test 140 meq/L 136-145 pjpv=644) POTASSIUM (BEAKER) (test 4.0 meq/L 3.5-5.1 mxfw=968) CHLORIDE (BEAKER) (test 99 meq/L 98-107 spcg=980) CO2 (BEAKER) (test 29 meq/L 22-29 shrk=221) BLOOD UREA NITROGEN 66 mg/dL 7-21 (BEAKER) (test eqlc=257) CREATININE (BEAKER) (test 1.28 mg/dL 0.57-1.25 buji=392) GLUCOSE RANDOM (BEAKER) 108 mg/dL 70-105 (test yrgm=712) CALCIUM (BEAKER) (test 8.9 mg/dL 8.4-10.2 bzxa=503) EGFR (BEAKER) (test mL/min/1.73 sq m INSUFFICIENT CLINICAL DATA twyn=7745) TO CALCULATE ESTIMATED GFR. B-TYPE NATRIURETIC FACTOR (BNP)2016-09-12 07:04:00 Test Item Value Reference Range Comments B-TYPE NATRIURETIC PEPTIDE (BEAKER) (test 323 pg/mL 0-100 yoom=770) CBC W/PLT COUNT & AUTO [id number] 07:02:00 Test Item Value Reference Range Comments WHITE BLOOD CELL COUNT (BEAKER) (test ovuf=050) 6.2 K/ L 4.0-10.0 RED BLOOD CELL COUNT (BEAKER) (test stbs=361) 2.82 M/ L 4.20-5.80 HEMOGLOBIN (BEAKER) (test vafi=529) 9.2 GM/DL 13.0-16.8 HEMATOCRIT (BEAKER) (test sunm=274) 27.9 % 40.0-50.0 MEAN CORPUSCULAR VOLUME (BEAKER) (test uwow=043) 98.7 fL 82.0-98.0 MEAN CORPUSCULAR HEMOGLOBIN (BEAKER) (test 32.7 pg 27.0-33.0 jnnd=405) MEAN CORPUSCULAR HEMOGLOBIN CONC (BEAKER) (test 33.2 GM/DL 32.0-36.0 wpnr=393) RED CELL DISTRIBUTION WIDTH (BEAKER) (test 13.8 % 10.3-14.2 udtw=150) PLATELET COUNT (BEAKER) (test njny=422) 52 K/CU MM 150-430 MEAN PLATELET VOLUME (BEAKER) (test iocr=784) 8.6 fL 6.5-10.5 NUCLEATED RED BLOOD CELLS (BEAKER) (test 0 /100 WBC 0-0 iubv=034) NEUTROPHILS RELATIVE PERCENT (BEAKER) (test 85 % ymio=128) LYMPHOCYTES RELATIVE PERCENT (BEAKER) (test 4 % suui=063) MONOCYTES RELATIVE PERCENT (BEAKER) (test 10 % xpre=106) EOSINOPHILS RELATIVE PERCENT (BEAKER) (test 0 % menw=903) BASOPHILS RELATIVE PERCENT (BEAKER) (test 1 % vxkk=753) NEUTROPHILS ABSOLUTE COUNT (BEAKER) (test 5.26 K/ L 1.80-8.00 tdwg=826) LYMPHOCYTES ABSOLUTE COUNT (BEAKER) (test 0.24 K/ L 1.48-4.50 hhve=257) MONOCYTES ABSOLUTE COUNT (BEAKER) (test yyif=191) 0.61 K/ L 0.00-1.30 EOSINOPHILS ABSOLUTE COUNT (BEAKER) (test 0.01 K/ L 0.00-0.50 aezk=204) BASOPHILS ABSOLUTE COUNT (BEAKER) (test nfiu=512) 0.06 K/ L 0.00-0.20 [id number] 06:59:00 Test Item Value Reference Range Comments FIBRINOGEN LEVEL (BEAKER) (test mdzb=101) 150 mg/dl 225-434 [id number] 06:55:00 Test Item Value Reference Range Comments PARTIAL THROMBOPLASTIN TIME (BEAKER) (test 32.2 seconds 22.5-36.0 djzg=852) PROTHROMBIN [id number] 06:52:00 Test Item Value Reference Range Comments PROTIME (BEAKER) (test tqiv=760) 20.2 seconds 11.7-14.7 INR (BEAKER) (test mknk=862) 1.7 <=5.9 RECOMMENDED COUMADIN/WARFARIN INR THERAPY RANGESSTANDARD DOSE: 2.0 - 3.0 Includes: PROPHYLAXIS forvenous thrombosis, systemic embolization; TREATMENT for venous thrombosis and/or pulmonary embolus.HIGH RISK: Target INR is 2.5-3.5 for patients with mechanical heart valves.POCT-GLUCOSE [id number] 21:59:00 Test Item Value Reference Range Comments POC-GLUCOSE METER ([facility]) 168 mg/dL 70-110 TESTED AT [address] (test xlge=8989) [place] [address] BODY FLUID CULTURE + GRAM [id number] 14:32:00 Test Item Value Reference Range Comments CULTURE (BEAKER) (test jpfe=8234) No growth GRAM STAIN RESULT (BEAKER) (test 2+ WBCs ylug=6709) GRAM STAIN RESULT ([facility]) (test No organisms seen omlg=22038) POCT-GLUCOSE [id number] 11:29:00 Test Item Value Reference Range Comments POC-GLUCOSE METER ([facility]) 94 mg/dL 70-110 TESTED AT [address] (test rjnm=0770) [place] [id number] CBC W/PLT COUNT & AUTO [id number] 09:59:00 Test Item Value Reference Range Comments WHITE BLOOD CELL COUNT (BEAKER) (test jsyz=659) 7.6 K/ L 4.0-10.0 RED BLOOD CELL COUNT (BEAKER) (test tpir=207) 3.23 M/ L 4.20-5.80 HEMOGLOBIN (BEAKER) (test hzco=777) 9.5 GM/DL 13.0-16.8 HEMATOCRIT (BEAKER) (test jmbr=151) 31.9 % 40.0-50.0 MEAN CORPUSCULAR VOLUME (BEAKER) (test jbcn=331) 98.6 fL 82.0-98.0 MEAN CORPUSCULAR HEMOGLOBIN (BEAKER) (test 29.5 pg 27.0-33.0 ogrq=635) MEAN CORPUSCULAR HEMOGLOBIN CONC (BEAKER) (test 29.9 GM/DL 32.0-36.0 mezl=131) RED CELL DISTRIBUTION WIDTH (BEAKER) (test 13.8 % 10.3-14.2 knua=833) PLATELET COUNT (BEAKER) (test iwcx=055) 33 K/CU MM 150-430 MEAN PLATELET VOLUME (BEAKER) (test zxxt=408) 9.9 fL 6.5-10.5 NUCLEATED RED BLOOD CELLS (BEAKER) (test 0 /100 WBC 0-0 bktz=717) NEUTROPHILS RELATIVE PERCENT (BEAKER) (test 86 % ozwk=383) LYMPHOCYTES RELATIVE PERCENT (BEAKER) (test 4 % vgts=049) MONOCYTES RELATIVE PERCENT (BEAKER) (test 10 % ndlu=325) EOSINOPHILS RELATIVE PERCENT (BEAKER) (test 0 % jpgk=841) BASOPHILS RELATIVE PERCENT (BEAKER) (test 1 % wvae=042) NEUTROPHILS ABSOLUTE COUNT (BEAKER) (test 6.55 K/ L 1.80-8.00 xjrb=583) LYMPHOCYTES ABSOLUTE COUNT (BEAKER) (test 0.27 K/ L 1.48-4.50 utio=997) MONOCYTES ABSOLUTE COUNT (BEAKER) (test kfye=194) 0.76 K/ L 0.00-1.30 EOSINOPHILS ABSOLUTE COUNT (BEAKER) (test 0.01 K/ L 0.00-0.50 moqu=525) BASOPHILS ABSOLUTE COUNT (BEAKER) (test kltl=455) 0.05 K/ L 0.00-0.20 [id number].00(MANUAL DIFFERENTIAL)2016-09-11 09:59:00 Test Item Value Reference Range Comments TOTAL COUNTED (BEAKER) (test nmzi=6449) POCT-GLUCOSE [id number] 08:02:00 Test Item Value Reference Range Comments POC-GLUCOSE METER (BEAKER) 173 mg/dL 70-[address] [facility] [address] (test sunc=5595) [facility] [address] BLOOD [id number] 06:00:00 Test Item Value Reference Range Comments CULTURE (BEAKER) (test qsmq=3124) No growth in 5 days BLOOD [id number] 06:00:00 Test Item Value Reference Range Comments CULTURE (BEAKER) (test xwwu=8437) No growth in 5 days BASIC METABOLIC [id number] 05:16:00 Test Item Value Reference Range Comments SODIUM (BEAKER) (test 137 meq/L 136-145 eqgf=748) POTASSIUM (BEAKER) (test 4.3 meq/L 3.5-5.1 ggsp=022) CHLORIDE (BEAKER) (test 100 meq/L 98-107 ysrf=734) CO2 (BEAKER) (test 28 meq/L 22-29 ykvs=945) BLOOD UREA NITROGEN 63 mg/dL 7-21 (BEAKER) (test hnwo=643) CREATININE (BEAKER) (test 1.35 mg/dL 0.57-1.25 jmgh=682) GLUCOSE RANDOM (BEAKER) 107 mg/dL 70-105 (test pvxo=643) CALCIUM (BEAKER) (test 8.8 mg/dL 8.4-10.2 jwen=869) EGFR (BEAKER) (test mL/min/1.73 sq m INSUFFICIENT CLINICAL DATA aejk=1330) TO CALCULATE ESTIMATED GFR. [id number] 05:05:00 Test Item Value Reference Range Comments FIBRINOGEN LEVEL (BEAKER) (test icjs=051) 182 mg/dl 225-434 PROTHROMBIN [id number] 05:04:00 Test Item Value Reference Range Comments PROTIME (BEAKER) (test elwv=118) 19.1 seconds 11.7-14.7 INR (BEAKER) (test yqoc=560) 1.6 <=5.9 RECOMMENDED COUMADIN/WARFARIN INR THERAPY RANGESSTANDARD DOSE: 2.0 - 3.0 Includes: PROPHYLAXIS forvenous thrombosis, systemic embolization; TREATMENT for venous thrombosis and/or pulmonary embolus.HIGH RISK: Target INR is 2.5-3.5 for patients with mechanical heart valves.[id number] 05:04:00 Test Item Value Reference Range Comments PARTIAL THROMBOPLASTIN TIME (BEAKER) (test 31.5 seconds 22.5-36.0 odmm=978) POCT-GLUCOSE [id number] 21:44:00 Test Item Value Reference Range Comments POC-GLUCOSE METER (BEAKER) 167 mg/dL 70-110 TESTED AT [address] (test mqbv=3075) [place] [id number] POCT-GLUCOSE [id number] 18:07:00 Test Item Value Reference Range Comments POC-GLUCOSE METER (BEAKER) 159 mg/dL 70-110 TESTED AT [address] (test bmxh=4497) [place] [id number] POCT-GLUCOSE [id number] 11:58:00 Test Item Value Reference Range Comments POC-GLUCOSE METER (BEAKER) 153 mg/dL 70-110 TESTED AT [address] (test srbc=6849) [facility] [address] CBC W/PLT COUNT & AUTO [id number] 09:13:00 Test Item Value Reference Range Comments WHITE BLOOD CELL COUNT (BEAKER) (test lqdz=780) 7.7 K/ L 4.0-10.0 RED BLOOD CELL COUNT (BEAKER) (test twxy=523) 2.97 M/ L 4.20-5.80 HEMOGLOBIN (BEAKER) (test fbqo=582) 9.7 GM/DL 13.0-16.8 HEMATOCRIT (BEAKER) (test qpyc=335) 29.2 % 40.0-50.0 MEAN CORPUSCULAR VOLUME (BEAKER) (test cxgl=122) 98.1 fL 82.0-98.0 MEAN CORPUSCULAR HEMOGLOBIN (BEAKER) (test 32.6 pg 27.0-33.0 mfmn=432) MEAN CORPUSCULAR HEMOGLOBIN CONC (BEAKER) (test 33.2 GM/DL 32.0-36.0 tvcu=418) RED CELL DISTRIBUTION WIDTH (BEAKER) (test 13.7 % 10.3-14.2 qmta=853) PLATELET COUNT (BEAKER) (test vbjy=254) 25 K/CU MM 150-430 MEAN PLATELET VOLUME (BEAKER) (test nlut=211) 10.2 fL 6.5-10.5 NUCLEATED RED BLOOD CELLS (BEAKER) (test 0 /100 WBC 0-0 ovyv=397) NEUTROPHILS RELATIVE PERCENT (BEAKER) (test 86 % dzwe=253) LYMPHOCYTES RELATIVE PERCENT (BEAKER) (test 4 % rzmi=898) MONOCYTES RELATIVE PERCENT (BEAKER) (test 10 % avqd=178) EOSINOPHILS RELATIVE PERCENT (BEAKER) (test 0 % qdiv=842) BASOPHILS RELATIVE PERCENT (BEAKER) (test 0 % yhtj=030) NEUTROPHILS ABSOLUTE COUNT (BEAKER) (test 6.61 K/ L 1.80-8.00 sjzd=239) LYMPHOCYTES ABSOLUTE COUNT (BEAKER) (test 0.29 K/ L 1.48-4.50 mkjx=728) MONOCYTES ABSOLUTE COUNT (BEAKER) (test pats=537) 0.77 K/ L 0.00-1.30 EOSINOPHILS ABSOLUTE COUNT (BEAKER) (test 0.01 K/ L 0.00-0.50 teqr=176) BASOPHILS ABSOLUTE COUNT (BEAKER) (test fzhu=234) 0.00 K/ L 0.00-0.20 0.00POCT-GLUCOSE [id number] 08:17:00 Test Item Value Reference Range Comments POC-GLUCOSE METER (BEAKER) 110 mg/dL 70-[address] [facility] [address] [facility] (test cggf=5553) [facility] [address] BASIC METABOLIC [id number] 07:06:00 Test Item Value Reference Range Comments SODIUM (BEAKER) (test 135 meq/L 136-145 hvok=365) POTASSIUM (BEAKER) (test 4.6 meq/L 3.5-5.1 wrbz=431) CHLORIDE (BEAKER) (test 101 meq/L 98-107 bwce=756) CO2 (BEAKER) (test 26 meq/L 22-29 oggt=527) BLOOD UREA NITROGEN 57 mg/dL 7-21 (BEAKER) (test kqgd=863) CREATININE (BEAKER) (test 1.69 mg/dL 0.57-1.25 uttj=136) GLUCOSE RANDOM (BEAKER) 121 mg/dL 70-105 (test jazm=005) CALCIUM (BEAKER) (test 8.3 mg/dL 8.4-10.2 vpqf=248) EGFR (BEAKER) (test mL/min/1.73 sq m INSUFFICIENT CLINICAL DATA vydo=8786) TO CALCULATE ESTIMATED GFR. [id number] 06:52:00 Test Item Value Reference Range Comments FIBRINOGEN LEVEL (BEAKER) (test fyxi=080) 203 mg/dl 225-434 [id number] 06:52:00 Test Item Value Reference Range Comments PARTIAL THROMBOPLASTIN TIME (BEAKER) (test 32.6 seconds 22.5-36.0 rvup=270) PROTHROMBIN [id number] 06:51:00 Test Item Value Reference Range Comments PROTIME (BEAKER) (test qrip=746) 19.8 seconds 11.7-14.7 INR (BEAKER) (test phym=252) 1.7 <=5.9 RECOMMENDED COUMADIN/WARFARIN INR THERAPY RANGESSTANDARD DOSE: 2.0 - 3.0 Includes: PROPHYLAXIS forvenous thrombosis, systemic embolization; TREATMENT for venous thrombosis and/or pulmonary embolus.HIGH RISK: Target INR is 2.5-3.5 for patients with mechanical heart valves.POCT-GLUCOSE [id number] 21:51:00 Test Item Value Reference Range Comments POC-GLUCOSE METER (BEAKER) 157 mg/dL 70-110 TESTED AT [address] (test qmwa=5556) [place] [address] POCT-GLUCOSE [id number] 16:53:00 Test Item Value Reference Range Comments POC-GLUCOSE METER (BEAKER) 154 mg/dL 70-110 TESTED AT [address] (test ckhx=8490) [place] [address] POCT-GLUCOSE [id number] 12:31:00 Test Item Value Reference Range Comments POC-GLUCOSE METER (BEAKER) 190 mg/dL 70-110 TESTED AT [address] (test ardm=3996) [place] [address] CBC W/PLT COUNT & AUTO [id number] 09:48:00 Test Item Value Reference Range Comments WHITE BLOOD CELL COUNT (BEAKER) (test vcev=198) 4.1 K/ L 4.0-10.0 RED BLOOD CELL COUNT (BEAKER) (test hhxk=810) 3.24 M/ L 4.20-5.80 HEMOGLOBIN (BEAKER) (test gkam=870) 9.8 GM/DL 13.0-16.8 HEMATOCRIT (BEAKER) (test uvge=835) 32.2 % 40.0-50.0 MEAN CORPUSCULAR VOLUME (BEAKER) (test jsnq=310) 99.5 fL 82.0-98.0 MEAN CORPUSCULAR HEMOGLOBIN (BEAKER) (test 30.4 pg 27.0-33.0 ibhn=373) MEAN CORPUSCULAR HEMOGLOBIN CONC (BEAKER) (test 30.5 GM/DL 32.0-36.0 edfw=479) RED CELL DISTRIBUTION WIDTH (BEAKER) (test 13.8 % 10.3-14.2 oyyz=335) PLATELET COUNT (BEAKER) (test dnml=337) 28 K/CU MM 150-430 MEAN PLATELET VOLUME (BEAKER) (test zsqc=822) 9.7 fL 6.5-10.5 NUCLEATED RED BLOOD CELLS (BEAKER) (test 0 /100 WBC 0-0 bzux=223) NEUTROPHILS RELATIVE PERCENT (BEAKER) (test 90 % jytc=178) LYMPHOCYTES RELATIVE PERCENT (BEAKER) (test 6 % uiab=206) MONOCYTES RELATIVE PERCENT (BEAKER) (test 3 % msfb=756) EOSINOPHILS RELATIVE PERCENT (BEAKER) (test 0 % ulxv=610) BASOPHILS RELATIVE PERCENT (BEAKER) (test 0 % xlec=529) NEUTROPHILS ABSOLUTE COUNT (BEAKER) (test 3.64 K/ L 1.80-8.00 pyvm=738) LYMPHOCYTES ABSOLUTE COUNT (BEAKER) (test 0.26 K/ L 1.48-4.50 kryi=368) MONOCYTES ABSOLUTE COUNT (BEAKER) (test edwn=959) 0.14 K/ L 0.00-1.30 EOSINOPHILS ABSOLUTE COUNT (BEAKER) (test 0.01 K/ L 0.00-0.50 tpsb=713) BASOPHILS ABSOLUTE COUNT (BEAKER) (test wcuj=400) 0.01 K/ L 0.00-0.20 0.00POCT-GLUCOSE [id number] 08:39:00 Test Item Value Reference Range Comments POC-GLUCOSE METER (BEAKER) 146 mg/dL 70-[address] [facility] [address] [facility] (test iube=2524) [facility] [address] HEMOGLOBIN AND [id number] 06:53:00 Test Item Value Reference Range Comments HEMOGLOBIN (BEAKER) (test cadm=105) 9.6 GM/DL 13.0-16.8 HEMATOCRIT (BEAKER) (test vifp=402) 30.0 % 40.0-50.0 HEPATITIS PANEL, [id number] 05:20:00 Test Item Value Reference Range Comments HEPATITIS A IGM ANTIBODY (BEAKER) (test Nonreactive Nonreactive omlw=857) HEPATITIS B CORE IGM ANTIBODY (BEAKER) (test Nonreactive Nonreactive dfcl=440) HEPATITIS C ANTIBODY (BEAKER) (test blyw=290) Nonreactive Nonreactive HEPATITIS B SURFACE ANTIGEN (2) (BEAKER) (test Nonreactive Nonreactive oabv=7541) ALPHA FETOPROTEIN (AFP), TUMOR [id number] 05:20:00 Test Item Value Reference Range Comments ALPHA-FETOPROTEIN (BEAKER) (test jooi=3903) < ng/mL <10.0 Effective 05/09/2014: Reference Range ChangeNew: <10.0 Previous: 0.0- [id number] 05:10:00 Test Item Value Reference Range Comments PREALBUMIN (BEAKER) (test 9 mg/dL 14-45 Specimen slightly hemolyzed twni=160) IMMUNOGLOBULIN G (IGG)2016-09-09 05:10:00 Test Item Value Reference Range Comments IMMUNOGLOBULIN G (IGG) (BEAKER) (test idig=835) 2488 mg/dL 540-1822 BASIC METABOLIC [id number] 04:56:00 Test Item Value Reference Range Comments SODIUM (BEAKER) (test 133 meq/L 136-145 naob=477) POTASSIUM (BEAKER) (test 5.2 meq/L 3.5-5.1 jagv=163) CHLORIDE (BEAKER) (test 99 meq/L 98-107 roni=963) CO2 (BEAKER) (test 25 meq/L 22-29 elku=725) BLOOD UREA NITROGEN 47 mg/dL 7-21 (BEAKER) (test wnaj=602) CREATININE (BEAKER) (test 2.09 mg/dL 0.57-1.25 gctj=520) GLUCOSE RANDOM (BEAKER) 128 mg/dL 70-105 (test bmwp=049) CALCIUM (BEAKER) (test 8.3 mg/dL 8.4-10.2 kijf=036) EGFR (BEAKER) (test mL/min/1.73 sq m INSUFFICIENT CLINICAL DATA qvbc=6648) TO CALCULATE ESTIMATED GFR. [id number] 04:50:00 Test Item Value Reference Range Comments PARTIAL THROMBOPLASTIN TIME (BEAKER) (test 34.4 seconds 22.5-36.0 jxoa=485) PROTHROMBIN [id number] 04:49:00 Test Item Value Reference Range Comments PROTIME (BEAKER) (test pmrr=471) 18.4 seconds 11.7-14.7 INR (BEAKER) (test yqmh=635) 1.5 <=5.9 RECOMMENDED COUMADIN/WARFARIN INR THERAPY RANGESSTANDARD DOSE: 2.0 - 3.0 Includes: PROPHYLAXIS forvenous thrombosis, systemic embolization; TREATMENT for venous thrombosis and/or pulmonary embolus.HIGH RISK: Target INR is 2.5-3.5 for patients with mechanical heart valves.[id number] 04:49:00 Test Item Value Reference Range Comments FIBRINOGEN LEVEL (BEAKER) (test lsxo=166) 265 mg/dl 225-434 HEMOGLOBIN AND [id number] 01:12:00 Test Item Value Reference Range Comments HEMOGLOBIN (BEAKER) (test kxpm=289) 9.8 GM/DL 13.0-16.8 HEMATOCRIT (BEAKER) (test tfdm=000) 30.6 % 40.0-50.0 POCT-GLUCOSE [id number] 21:55:00 Test Item Value Reference Range Comments POC-GLUCOSE METER (BEAKER) 108 mg/dL 70-[address] [facility] [address] [facility] (test jibs=5451) [facility] [address] BODY FLUID CELL COUNT WITH [id number] 19:27:00 Test Item Value Reference Range Comments APPEARANCE FLUID (BEAKER) (test wabx=279) Cloudy Clear COLOR FLUID (BEAKER) (test ynbi=613) Niru Colorless, Straw RBC FLUID (BEAKER) (test ocgw=041) 6800 /cu mm <=1 ADJUSTED WBC FLUID (BEAKER) (test qgzx=5282) 283 /cu mm <=5 LINING CELLS (BEAKER) (test vubl=8299) 0 /cu mm <=1 NEUTROPHILS FLUID (BEAKER) (test kvit=2904) 6 % LYMPHS FLUID (BEAKER) (test hjkk=250) 12 % MONO/MACROPHAGE FLUID (BEAKER) (test ekba=213) 82 % EOSINOPHILS FLUID (BEAKER) (test bpnc=980) 0 % BASO FLUID (BEAKER) (test xqeu=332) 0 % CONTAINER BODY FLUID (BEAKER) (test yaox=3363) EDTA Tube LACTATE DEHYDROGENASE (LDH), BODY [id number] 18:24:00 Test Item Value Reference Range Comments LACTATE DEHYDROGENASE FLUID (BEAKER) (test vpnq=618) 118 U/L Absence of reference range indicates that normals have not been defined.Assay performance has not been validated for this type of specimen.POCT-GLUCOSE [id number] 18:18:00 Test Item Value Reference Range Comments POC-GLUCOSE METER (BEAKER) 137 mg/dL 70-[address] [facility] [address] [facility] (test hkbx=2880) [facility] [address] ALBUMIN, BODY [id number] 18:06:00 Test Item Value Reference Range Comments ALBUMIN FLUID (BEAKER) (test yrxx=754) 1.7 gm/dL Reference Range: No Normals Assay performance has not been validated for this type of specimen.DIL[facility] (DRVV)2016-09-08 16:28:00 Test Item Value Reference Range Comments PROTIME (BEAKER) (test dujk=491) 18.3 seconds 11.7-14.7 INR (BEAKER) (test afnv=490) 1.6 <=5.9 PARTIAL THROMBOPLASTIN TIME 36.3 seconds 22.5-36.0 (BEAKER) (test uldb=660) DRVV INTERPRETATION (BEAKER) Normal DRVV Results (test jmhw=0195) [id number] (BEAKER) Carolina Mahan MD (test fayk=4835) (electronic signature) DRVV SCREEN RATIO (BEAKER) (test 1.14 <1.20 oxhf=2870) Effective 10/25/2013: Test Method ChangeDRVV Screen Ratio, DRVV 1/1 Screen Ratio, DRVV Confirm Ratio,DRVV Normalized Ratio Reference Range: <1.2Protime Reference Range ChangeNew: 11.7-14.7 Previous: 9.8-12.0PTT Reference Range ChangeNew: 22.5-36.0 Previous: 25.8-34.5ALPHA FETOPROTEIN (AFP), TUMOR [id number] 16:23:00 Test Item Value Reference Range Comments ALPHA-FETOPROTEIN (BEAKER) (test btku=0388) 2.0 ng/mL <10.0 Effective 05/09/2014: Reference Range ChangeNew: <10.0 Previous: 0.0- 8.0CBC W/PLT COUNT & AUTO [id number] 15:34:00 Test Item Value Reference Range Comments WHITE BLOOD CELL COUNT (BEAKER) (test mjar=008) 5.4 K/ L 4.0-10.0 RED BLOOD CELL COUNT (BEAKER) (test uwhm=533) 3.02 M/ L 4.20-5.80 HEMOGLOBIN (BEAKER) (test ebhd=422) 9.8 GM/DL 13.0-16.8 HEMATOCRIT (BEAKER) (test ydco=933) 30.0 % 40.0-50.0 MEAN CORPUSCULAR VOLUME (BEAKER) (test bwqh=641) 99.4 fL 82.0-98.0 MEAN CORPUSCULAR HEMOGLOBIN (BEAKER) (test 32.4 pg 27.0-33.0 wsmp=696) MEAN CORPUSCULAR HEMOGLOBIN CONC (BEAKER) (test 32.6 GM/DL 32.0-36.0 fqjw=719) RED CELL DISTRIBUTION WIDTH (BEAKER) (test 13.6 % 10.3-14.2 fgbu=542) PLATELET COUNT (BEAKER) (test nldu=253) 46 K/CU MM 150-430 MEAN PLATELET VOLUME (BEAKER) (test qzod=580) 7.7 fL 6.5-10.5 NUCLEATED RED BLOOD CELLS (BEAKER) (test 0 /100 WBC 0-0 kzej=814) NEUTROPHILS RELATIVE PERCENT (BEAKER) (test 78 % akla=285) LYMPHOCYTES RELATIVE PERCENT (BEAKER) (test 6 % vuim=076) MONOCYTES RELATIVE PERCENT (BEAKER) (test 14 % fwlz=056) EOSINOPHILS RELATIVE PERCENT (BEAKER) (test 2 % znno=289) BASOPHILS RELATIVE PERCENT (BEAKER) (test 0 % gcwt=576) NEUTROPHILS ABSOLUTE COUNT (BEAKER) (test 4.20 K/ L 1.80-8.00 lysg=929) LYMPHOCYTES ABSOLUTE COUNT (BEAKER) (test 0.33 K/ L 1.48-4.50 zowj=620) MONOCYTES ABSOLUTE COUNT (BEAKER) (test eool=113) 0.74 K/ L 0.00-1.30 EOSINOPHILS ABSOLUTE COUNT (BEAKER) (test 0.09 K/ L 0.00-0.50 izic=012) BASOPHILS ABSOLUTE COUNT (BEAKER) (test qnui=193) 0.02 K/ L 0.00-0.20 0.00ANTI-NUCLEAR ANTIBODY (ANNEL)2016-09-08 15:18:00 Test Item Value Reference Range Comments ANTI-NUCLEAR ANTIBODY (ANNEL) (BEAKER) (test Negative Negative rwsb=658) EQUAL MIX, NORMAL [id number] 14:55:00 Test Item Value Reference Range Comments PROTIME (BEAKER) (test fwdc=662) 18.3 seconds 11.7-14.7 PARTIAL THROMBOPLASTIN TIME (BEAKER) (test 36.3 seconds 22.5-36.0 scza=080) PT 1/1 MIX (BEAKER) (test knim=2087) 14.6 SECS 11.7-14.7 PTT 1/1 MIX (BEAKER) (test muxo=8091) 33.9 SECS 22.5-36.0 THROMBIN [id number] 14:55:00 Test Item Value Reference Range Comments THROMBIN TIME (BEAKER) (test axvr=765) 17.4 secs 13.8-20.0 IMMUNOFIXATION ELECTROPHORESIS (TEJAL)2016-09-08 13:53:00 Test Item Value Reference Range Comments IMMUNOGLOBULIN G (IGG) (BEAKER) 2100 mg/dL 540-1822 (test oeja=249) IMMUNOGLOBULIN A (IGA) (BEAKER) 450 mg/dL 63-484 (test rqtn=182) IMMUNOGLOBULIN M (IGM) (BEAKER) 126 mg/dL 22-293 (test sggw=499) SERUM TEJAL ID (BEAKER) (test No monoclonal bands detected. wepw=5114) Polyclonal distribution of normal immunoglobulins. [id number] ([facility] Carolina Mahan MD (test ghdo=4016) (electronic signature) PROTEIN ELECTROPHORESIS, [id number] 13:27:00 Test Item Value Reference Range Comments ALBUMIN FRACTION (BEAKER) 3.2 g/dL 3.5-5.5 (test jwxq=712) ALPHA 1 FRACTION (BEAKER) 0.3 g/dL 0.2-0.4 (test ahpy=048) ALPHA 2 FRACTION (BEAKER) 0.5 g/dL 0.5-0.9 (test gccq=956) BETA FRACTION (BEAKER) (test 1.0 g/dL 0.6-1.1 ychp=505) GAMMA GLOBULIN FRACTION 2.0 g/dL 0.7-1.7 (BEAKER) (test czww=090) INTERPRETATION-119 (BEAKER) Slight polyclonal increase in (test lufp=0106) gamma globulins, suggesting chronic inflammatory state. No monoclonal bands detected. [id number] Carolina Mahan MD (BEAKER) (test fxkk=3155) (electronic signature) PROTEIN TOTAL SERUM, SPEP 7.0 gm/dL 6.0-8.3 (BEAKER) (test dftp=1263) POCT-GLUCOSE [id number] 12:17:00 Test Item Value Reference Range Comments POC-GLUCOSE METER (BEAKER) 117 mg/dL 70-[address] [facility] [address] [facility] (test tmoe=1493) [facility] [address] CARDIOLIPIN ANTIBODIES, IGG AND [id number] 12:04:00 Test Item Value Reference Range Comments ANTICARDIOLIPIN IGG ANTIBODY (BEAKER) (test < GPL vytm=661) ANTICARDIOLIPIN IGM ANTIBODY (BEAKER) (test 0.9 MPL feiu=543) Anticardiolipin IgG Result Interpretation: NEG: <20 GPL; U/ml POS: & gt;/=20 GPL; U/mlAnticardiolipin IgM Result Interpretation: NEG: <20 MPL ; U/ml POS: >/=20 MPL; U/mlOSMOLALITY, [id number] 10:20:00 Test Item Value Reference Range Comments OSMOLALITY URINE (BEAKER) (test ktou=153) 313 mOsm/kg 40-1400 EOSINOPHIL SMEAR, [id number] 10:10:00 Test Item Value Reference Range Comments EOSINOPHIL SMEAR, URINE (BEAKER) Rare EOS=less than 5% WBCs No EOS seen (test uyjh=7913) seen are EOS CREATININE, RANDOM [id number] 08:12:00 Test Item Value Reference Range Comments CREATININE URINE (BEAKER) (test rwza=120) 136.1 mg/dL Reference Range: No NormalsPROTEIN, RANDOM [id number] 08:12:00 Test Item Value Reference Range Comments PROTEIN, URINE (BEAKER) (test khfz=6653) 157 mg/dL 0-14 SODIUM, RANDOM [id number] 08:12:00 Test Item Value Reference Range Comments SODIUM URINE (BEAKER) (test jkzu=302) 53 meq/L Reference Range: No NormalsURINALYSIS W/ [id number] 08:12:00 Test Item Value Reference Range Comments COLOR (BEAKER) (test xkbd=536) Light Yellow CLARITY (BEAKER) (test evvo=681) Hazy SPECIFIC GRAVITY UA (BEAKER) (test blog=480) 1.005 1.001-1.035 PH UA (BEAKER) (test aeji=706) 5.0 5.0-8.0 PROTEIN UA (BEAKER) (test zmhu=053) Negative Negative GLUCOSE UA (BEAKER) (test gikt=880) 70 mg/dL Negative KETONES UA (BEAKER) (test ghnv=069) Negative Negative BILIRUBIN UA (BEAKER) (test tpar=912) Negative Negative BLOOD UA (BEAKER) (test cnxo=701) Large Negative NITRITE UA (BEAKER) (test mogq=180) Negative Negative LEUKOCYTE ESTERASE UA (BEAKER) (test lkbu=742) Trace Negative UROBILINOGEN UA (BEAKER) (test lmsd=197) 0.2 mg/dL 0.2-1.0 RBC UA (BEAKER) (test aawg=319) > /HPF WBC UA (BEAKER) (test nzmu=613) 117 /HPF HYALINE CASTS (BEAKER) (test vrpm=758) 32 /LPF YEAST (BEAKER) (test geln=8634) Many SOURCE(BEAKER) (test vpvy=9440) BASIC METABOLIC [id number] 04:45:00 Test Item Value Reference Range Comments SODIUM (BEAKER) (test 133 meq/L 136-145 fvta=215) POTASSIUM (BEAKER) (test 5.0 meq/L 3.5-5.1 pvcf=819) CHLORIDE (BEAKER) (test 99 meq/L 98-107 vawp=871) CO2 (BEAKER) (test 23 meq/L 22-29 kjtt=829) BLOOD UREA NITROGEN 44 mg/dL 7-21 (BEAKER) (test djok=728) CREATININE (BEAKER) (test 2.91 mg/dL 0.57-1.25 hkwn=354) GLUCOSE RANDOM (BEAKER) 98 mg/dL 70-105 (test tqph=176) CALCIUM (BEAKER) (test 8.3 mg/dL 8.4-10.2 xzto=959) EGFR (BEAKER) (test mL/min/1.73 sq m INSUFFICIENT CLINICAL DATA pbtb=9722) TO CALCULATE ESTIMATED GFR. PROTHROMBIN [id number] 04:30:00 Test Item Value Reference Range Comments PROTIME (BEAKER) (test vkww=304) 21.7 seconds 11.7-14.7 INR (BEAKER) (test mjni=839) 1.9 <=5.9 RECOMMENDED COUMADIN/WARFARIN INR THERAPY RANGESSTANDARD DOSE: 2.0 - 3.0 Includes: PROPHYLAXIS forvenous thrombosis, systemic embolization; TREATMENT for venous thrombosis and/or pulmonary embolus.HIGH RISK: Target INR is 2.5-3.5 for patients with mechanical heart valves.[id number] 04:30:00 Test Item Value Reference Range Comments PARTIAL THROMBOPLASTIN TIME (BEAKER) (test 35.9 seconds 22.5-36.0 kpfg=862) [id number] 04:30:00 Test Item Value Reference Range Comments FIBRINOGEN LEVEL (BEAKER) (test nvzu=276) 216 mg/dl 225-434 CBC W/PLT COUNT & AUTO [id number] 04:29:00 Test Item Value Reference Range Comments WHITE BLOOD CELL COUNT (BEAKER) (test kfqs=788) 4.9 K/ L 4.0-10.0 RED BLOOD CELL COUNT (BEAKER) (test scvx=917) 3.05 M/ L 4.20-5.80 HEMOGLOBIN (BEAKER) (test zfvl=182) 10.0 GM/DL 13.0-16.8 HEMATOCRIT (BEAKER) (test devs=171) 30.8 % 40.0-50.0 MEAN CORPUSCULAR VOLUME (BEAKER) (test txij=541) 101.0 fL 82.0-98.0 MEAN CORPUSCULAR HEMOGLOBIN (BEAKER) (test 32.7 pg 27.0-33.0 jbqy=000) MEAN CORPUSCULAR HEMOGLOBIN CONC (BEAKER) (test 32.4 GM/DL 32.0-36.0 vryg=747) RED CELL DISTRIBUTION WIDTH (BEAKER) (test 14.3 % 10.3-14.2 rwis=101) PLATELET COUNT (BEAKER) (test xvwd=247) 13 K/CU MM 150-430 MEAN PLATELET VOLUME (BEAKER) (test zbvc=466) 11.2 fL 6.5-10.5 NUCLEATED RED BLOOD CELLS (BEAKER) (test 0 /100 WBC 0-0 ciho=742) NEUTROPHILS RELATIVE PERCENT (BEAKER) (test 75 % lskh=387) LYMPHOCYTES RELATIVE PERCENT (BEAKER) (test 8 % kbwl=536) MONOCYTES RELATIVE PERCENT (BEAKER) (test 14 % kisj=146) EOSINOPHILS RELATIVE PERCENT (BEAKER) (test 3 % kxiv=290) BASOPHILS RELATIVE PERCENT (BEAKER) (test 0 % cnvy=242) NEUTROPHILS ABSOLUTE COUNT (BEAKER) (test 3.66 K/ L 1.80-8.00 ycsv=803) LYMPHOCYTES ABSOLUTE COUNT (BEAKER) (test 0.41 K/ L 1.48-4.50 nnyn=314) MONOCYTES ABSOLUTE COUNT (BEAKER) (test cydy=990) 0.70 K/ L 0.00-1.30 EOSINOPHILS ABSOLUTE COUNT (BEAKER) (test 0.13 K/ L 0.00-0.50 trhz=035) BASOPHILS ABSOLUTE COUNT (BEAKER) (test ynhb=704) 0.01 K/ L 0.00-0.20 0.00HEPATITIS A ANTIBODY, [id number] 01:44:00 Test Item Value Reference Range Comments HEPATITIS A IGG ANTIBODY (BEAKER) (test mjou=8695) Reactive Nonreactive HEPATITIS B SURFACE [id number] 01:41:00 Test Item Value Reference Range Comments HEPATITIS B SURFACE ANTIGEN (2) (BEAKER) (test Nonreactive Nonreactive xuuu=1902) HEPATITIS B SURFACE [id number] 01:41:00 Test Item Value Reference Range Comments HEPATITIS B SURFACE ANTIBODY (BEAKER) (test 205.5 mIU/mL <8.0 qqkn=343) HEPATITIS C [id number] 01:41:00 Test Item Value Reference Range Comments HEPATITIS C ANTIBODY (BEAKER) (test amgb=617) Nonreactive Nonreactive HIV-1 ANTIGEN WITH HIV-1/2 [id number] 01:41:00 Test Item Value Reference Range Comments HIV-1 ANTIGEN WITH HIV 1\T\2 ANTIBODY (2) Nonreactive Nonreactive (BEAKER) (test pgpd=9107) POCT-GLUCOSE [id number] 22:22:00 Test Item Value Reference Range Comments POC-GLUCOSE METER (BEAKER) 106 mg/dL 70-[address] [facility] [address] [facility] (test nwmo=5667) [place] [address] CBC W/PLT COUNT & AUTO [id number] 18:31:00 Test Item Value Reference Range Comments WHITE BLOOD CELL COUNT (BEAKER) (test edlm=924) 5.4 K/ L 4.0-10.0 RED BLOOD CELL COUNT (BEAKER) (test dlke=623) 3.16 M/ L 4.20-5.80 HEMOGLOBIN (BEAKER) (test lfmd=542) 10.3 GM/DL 13.0-16.8 HEMATOCRIT (BEAKER) (test fpzr=901) 32.1 % 40.0-50.0 MEAN CORPUSCULAR VOLUME (BEAKER) (test dimc=655) 102.0 fL 82.0-98.0 MEAN CORPUSCULAR HEMOGLOBIN (BEAKER) (test 32.5 pg 27.0-33.0 oicq=578) MEAN CORPUSCULAR HEMOGLOBIN CONC (BEAKER) (test 32.0 GM/DL 32.0-36.0 gphh=304) RED CELL DISTRIBUTION WIDTH (BEAKER) (test 14.2 % 10.3-14.2 wzwf=043) PLATELET COUNT (BEAKER) (test wfus=630) 26 K/CU MM 150-430 MEAN PLATELET VOLUME (BEAKER) (test fwhd=965) 8.7 fL 6.5-10.5 NUCLEATED RED BLOOD CELLS (BEAKER) (test 0 /100 WBC 0-0 xbwx=430) NEUTROPHILS RELATIVE PERCENT (BEAKER) (test 81 % ktpm=271) LYMPHOCYTES RELATIVE PERCENT (BEAKER) (test 5 % hzfq=399) MONOCYTES RELATIVE PERCENT (BEAKER) (test 11 % lxex=408) EOSINOPHILS RELATIVE PERCENT (BEAKER) (test 3 % wfnc=883) BASOPHILS RELATIVE PERCENT (BEAKER) (test 0 % pifo=355) NEUTROPHILS ABSOLUTE COUNT (BEAKER) (test 4.37 K/ L 1.80-8.00 nhcb=464) LYMPHOCYTES ABSOLUTE COUNT (BEAKER) (test 0.29 K/ L 1.48-4.50 auuv=562) MONOCYTES ABSOLUTE COUNT (BEAKER) (test twqg=255) 0.60 K/ L 0.00-1.30 EOSINOPHILS ABSOLUTE COUNT (BEAKER) (test 0.15 K/ L 0.00-0.50 kcav=015) BASOPHILS ABSOLUTE COUNT (BEAKER) (test pahs=041) 0.01 K/ L 0.00-0.20 0.00POCT-GLUCOSE [id number] 18:27:00 Test Item Value Reference Range Comments POC-GLUCOSE METER (BEAKER) 112 mg/dL 70-[address] [facility] [address] [facility] (test pnor=2743) [facility] [address] HEPATIC FUNCTION [id number] 16:29:00 Test Item Value Reference Range Comments TOTAL PROTEIN (BEAKER) (test fcpw=727) 7.7 gm/dL 6.0-8.3 ALBUMIN (BEAKER) (test fjuj=8386) 3.2 g/dL 3.5-5.0 BILIRUBIN TOTAL (BEAKER) (test sgzp=908) 1.0 mg/dL 0.2-1.2 BILIRUBIN DIRECT (BEAKER) (test bnbx=281) 0.7 mg/dL 0.1-0.5 ALKALINE PHOSPHATASE (BEAKER) (test fqlw=884) 148 U/L 40-150 AST (SGOT) (BEAKER) (test kbuz=360) 26 U/L 5-34 ALT (SGPT) (BEAKER) (test qutm=189) 12 U/L 6-55 CBC (HEMOGRAM ONLY)2016-09-07 15:34:00 Test Item Value Reference Range Comments WHITE BLOOD CELL COUNT (BEAKER) (test nfwp=308) 4.3 K/ L 4.0-10.0 RED BLOOD CELL COUNT (BEAKER) (test jysr=053) 3.26 M/ L 4.20-5.80 HEMOGLOBIN (BEAKER) (test zruw=501) 10.5 GM/DL 13.0-16.8 HEMATOCRIT (BEAKER) (test xwbd=078) 33.0 % 40.0-50.0 MEAN CORPUSCULAR VOLUME (BEAKER) (test xkjw=085) 102.0 fL 82.0-98.0 MEAN CORPUSCULAR HEMOGLOBIN (BEAKER) (test 32.3 pg 27.0-33.0 qodg=753) MEAN CORPUSCULAR HEMOGLOBIN CONC (BEAKER) (test 31.8 GM/DL 32.0-36.0 xein=227) RED CELL DISTRIBUTION WIDTH (BEAKER) (test 13.7 % 10.3-14.2 ydjc=047) PLATELET COUNT (BEAKER) (test iacb=972) 9 K/CU MM 150-430 MEAN PLATELET VOLUME (BEAKER) (test figt=598) 12.6 fL 6.5-10.5 NUCLEATED RED BLOOD CELLS (BEAKER) (test 0 /100 WBC 0-0 rucn=371) [id number] 14:58:00 Test Item Value Reference Range Comments PROSTATE SPECIFIC ANTIGEN (BEAKER) (test jups=724) 0.2 ng/mL 0.0-4.0 CHLORIDE, RANDOM [id number] 14:10:00 Test Item Value Reference Range Comments CHLORIDE URINE (BEAKER) (test bgqj=091) 27 meq/L Reference Range: No NormalsCREATININE, RANDOM [id number] 14:10:00 Test Item Value Reference Range Comments CREATININE URINE (BEAKER) (test nydg=454) 192.5 mg/dL Reference Range: No NormalsPROTEIN, RANDOM [id number] 14:10:00 Test Item Value Reference Range Comments PROTEIN, URINE (BEAKER) (test wcpw=5773) 72 mg/dL 0-14 SODIUM, RANDOM [id number] 14:10:00 Test Item Value Reference Range Comments SODIUM URINE (BEAKER) (test cfup=867) 28 meq/L Reference Range: No NormalsOSMOLALITY, [id number] 13:51:00 Test Item Value Reference Range Comments OSMOLALITY URINE (BEAKER) (test etyf=150) 307 mOsm/kg 40-1400 [id number] 05:52:00 Test Item Value Reference Range Comments FERRITIN (BEAKER) (test zsht=327) 159 ng/mL 5-275 Effective 05/09/2014: Reference Range ChangeNew: Male 5-275 Previous: Male 22-322 Female 5-275 Female 10-291VITAMIN B12 AND [id number] 05:52:00 Test Item Value Reference Range Comments VITAMIN B12 (BEAKER) (test acsz=172) 1060 pg/mL 213-816 FOLATE (BEAKER) (test bbkt=556) 6.4 ng/mL >=7.0 Effective 05/09/2014: Folate Reference Range ChangeNew: >=7.0 Previous: & gt;=5.4IRON, TIBC, % SAT. (WITHOUT FERRITIN)2016-09-07 05:28:00 Test Item Value Reference Range Comments IRON (BEAKER) (test vcac=411) 48 ug/dL 40-160 TOTAL IRON BINDING CAPACITY (BEAKER) (test 340 ug/dL 250-450 ryxv=485) IRON % SATURATION (2) (BEAKER) (test tste=4837) 14 % 20-55 BASIC METABOLIC [id number] 04:51:00 Test Item Value Reference Range Comments SODIUM (BEAKER) (test 135 meq/L 136-145 uasp=899) POTASSIUM (BEAKER) (test 5.3 meq/L 3.5-5.1 stqu=006) CHLORIDE (BEAKER) (test 101 meq/L 98-107 hcov=085) CO2 (BEAKER) (test 23 meq/L 22-29 zprb=399) BLOOD UREA NITROGEN 38 mg/dL 7-21 (BEAKER) (test tfvw=305) CREATININE (BEAKER) (test 2.76 mg/dL 0.57-1.25 aamr=872) GLUCOSE RANDOM (BEAKER) 109 mg/dL 70-105 (test lmvn=104) CALCIUM (BEAKER) (test 8.2 mg/dL 8.4-10.2 iyeb=465) EGFR (BEAKER) (test mL/min/1.73 sq m INSUFFICIENT CLINICAL DATA ysag=5712) TO CALCULATE ESTIMATED GFR. CBC W/PLT COUNT & AUTO [id number] 04:28:00 Test Item Value Reference Range Comments WHITE BLOOD CELL COUNT (BEAKER) (test lqxr=183) 4.6 K/ L 4.0-10.0 RED BLOOD CELL COUNT (BEAKER) (test oafi=784) 3.08 M/ L 4.20-5.80 HEMOGLOBIN (BEAKER) (test sntp=929) 10.0 GM/DL 13.0-16.8 HEMATOCRIT (BEAKER) (test chtw=478) 31.4 % 40.0-50.0 MEAN CORPUSCULAR VOLUME (BEAKER) (test icig=377) 102.0 fL 82.0-98.0 MEAN CORPUSCULAR HEMOGLOBIN (BEAKER) (test 32.5 pg 27.0-33.0 musx=516) MEAN CORPUSCULAR HEMOGLOBIN CONC (BEAKER) (test 31.9 GM/DL 32.0-36.0 muaj=356) RED CELL DISTRIBUTION WIDTH (BEAKER) (test 13.6 % 10.3-14.2 hxfl=564) PLATELET COUNT (BEAKER) (test fhwb=502) 12 K/CU MM 150-430 MEAN PLATELET VOLUME (BEAKER) (test ehpv=415) 11.8 fL 6.5-10.5 NUCLEATED RED BLOOD CELLS (BEAKER) (test 0 /100 WBC 0-0 uywj=492) NEUTROPHILS RELATIVE PERCENT (BEAKER) (test 70 % fqwy=760) LYMPHOCYTES RELATIVE PERCENT (BEAKER) (test 11 % gdgn=890) MONOCYTES RELATIVE PERCENT (BEAKER) (test 15 % inbr=012) EOSINOPHILS RELATIVE PERCENT (BEAKER) (test 4 % bkob=115) BASOPHILS RELATIVE PERCENT (BEAKER) (test 0 % jazo=664) NEUTROPHILS ABSOLUTE COUNT (BEAKER) (test 3.19 K/ L 1.80-8.00 pnxp=645) LYMPHOCYTES ABSOLUTE COUNT (BEAKER) (test 0.49 K/ L 1.48-4.50 roqx=050) MONOCYTES ABSOLUTE COUNT (BEAKER) (test ssed=517) 0.70 K/ L 0.00-1.30 EOSINOPHILS ABSOLUTE COUNT (BEAKER) (test 0.17 K/ L 0.00-0.50 byym=232) BASOPHILS ABSOLUTE COUNT (BEAKER) (test lzoy=056) 0.00 K/ L 0.00-0.20 0.00PROTHROMBIN TIME/[id number] 04:16:00 Test Item Value Reference Range Comments PROTIME (BEAKER) (test hunw=953) 20.8 seconds 11.7-14.7 INR (BEAKER) (test zrpd=863) 1.8 <=5.9 RECOMMENDED COUMADIN/WARFARIN INR THERAPY RANGESSTANDARD DOSE: 2.0 - 3.0 Includes: PROPHYLAXIS forvenous thrombosis, systemic embolization; TREATMENT for venous thrombosis and/or pulmonary embolus.HIGH RISK: Target INR is 2.5-3.5 for patients with mechanical heart valves.[id number] 04:16:00 Test Item Value Reference Range Comments PARTIAL THROMBOPLASTIN TIME (BEAKER) (test 39.2 seconds 22.5-36.0 qieq=993) VITAMIN B12 AND [id number] 16:41:00 Test Item Value Reference Range Comments VITAMIN B12 (BEAKER) (test uufm=268) 860 pg/mL 213-816 FOLATE (BEAKER) (test hhtw=287) 8.0 ng/mL >=7.0 Effective 05/09/2014: Folate Reference Range ChangeNew: >=7.0 Previous: & gt;=[id number] 15:47:00 Test Item Value Reference Range Comments FERRITIN (BEAKER) (test tmhx=686) 148 ng/mL 5-275 Effective 05/09/2014: Reference Range ChangeNew: Male 5-275 Previous: Male 22-322 Female 5-275 Female 10-291HEPATITIS B [id number] 14:54:00 Test Item Value Reference Range Comments HEPATITIS B CORE TOTAL ANTIBODY (BEAKER) (test Nonreactive Nonreactive feya=421) HEPATITIS B SURFACE ANTIBODY (BEAKER) (test < mIU/mL <8.0 ereq=207) HEPATITIS B SURFACE ANTIGEN (2) (BEAKER) (test Nonreactive Nonreactive toiu=4273) HEPATITIS C [id number] 14:14:00 Test Item Value Reference Range Comments HEPATITIS C ANTIBODY (BEAKER) (test mbzq=110) Nonreactive Nonreactive HIV-1 ANTIGEN WITH HIV-1/2 [id number] 13:54:00 Test Item Value Reference Range Comments HIV-1 ANTIGEN WITH HIV 1\T\2 ANTIBODY (2) Nonreactive Nonreactive (BEAKER) (test rmvd=5840) [id number] 13:39:00 Test Item Value Reference Range Comments D-DIMER QUANTITATIVE (BEAKER) (test aalg=852) 8.70 MG/L FEU <0.50 Intended Use: The D-Dimer Assay can be used to aid in the diagnosis of Deep Vein Thrombosis (DVT) and Pulmonary Embolism Disease (PED).In patients with low pre-test probability, various studies concerning STA Liatest D-dimer test have reported that with a cutoff value of 0.50 MG/L FEU, the Negative Predictive Value (NPV) regarding the exclusion of thrombosis is within 95-100% range.URIC [id number] 13:31:00 Test Item Value Reference Range Comments URIC ACID (BEAKER) (test jjzh=251) 10.2 mg/dL 2.6-7.2 LACTATE DEHYDROGENASE (LDH)2016-09-06 13:31:00 Test Item Value Reference Range Comments LACTATE DEHYDROGENASE (BEAKER) (test mahp=717) 199 U/L 125-220 [id number] 13:30:00 Test Item Value Reference Range Comments FIBRINOGEN LEVEL (BEAKER) (test jszz=046) 281 mg/dl 225-434 RAPID DRUG SCREEN, [id number] 12:15:00 Test Item Value Reference Range Comments BARBITURATE URINE (BEAKER) (test zsew=793) Negative Negative BENZODIAZEPINE SCREEN URINE (BEAKER) (test Negative Negative jpqa=005) COCAINE (METAB.) SCREEN (BEAKER) (test xobj=8072) Negative Negative METHADONE SCREEN (BEAKER) (test avgu=3461) Negative Negative OPIATE SCREEN URINE (BEAKER) (test mrrk=300) Positive Negative CANNABINOID SCREEN URINE (BEAKER) (test tuum=266) Negative Negative AMPH/METHAMPH SCREEN (BEAKER) (test ehuo=3728) Negative Negative PHENCYCLIDINE SCREEN URINE (BEAKER) (test jwvd=300) Negative Negative OXYCODONE SCREEN URINE (BEAKER) (test nmpf=2788) Negative Negative DRUG CUTOFF CONC.Cocaine 300 ng/mL Cannabinoid 50 ng/mL Benzodiazepine 200 ng/mLBarbiturate 200 ng/ mLPhencyclidine 25 ng/mLOpiate 300 ng/mLMethadone 300 ng/mLAmphetamine/ 1000 ng/mL MethamphetamineOxycodone 300 ng/mLURINALYSIS W/ [id number] 11:30:00 Test Item Value Reference Range Comments COLOR (BEAKER) (test cbtr=683) Yellow CLARITY (BEAKER) (test aeze=731) Hazy SPECIFIC GRAVITY UA (BEAKER) (test xgun=256) 1.011 1.001-1.035 PH UA (BEAKER) (test nqro=982) 5.0 5.0-8.0 PROTEIN UA (BEAKER) (test yrlx=077) 70 mg/dL Negative GLUCOSE UA (BEAKER) (test fxbb=901) Negative Negative KETONES UA (BEAKER) (test tmgw=509) Negative Negative BILIRUBIN UA (BEAKER) (test odbo=480) Negative Negative BLOOD UA (BEAKER) (test bpta=240) Negative Negative NITRITE UA (BEAKER) (test mhet=186) Negative Negative LEUKOCYTE ESTERASE UA (BEAKER) (test kiyr=349) Negative Negative UROBILINOGEN UA (BEAKER) (test fwuq=794) 2.0 mg/dL 0.2-1.0 RBC UA (BEAKER) (test zlds=929) < /HPF WBC UA (BEAKER) (test ujht=727) 2 /HPF BACTERIA (BEAKER) (test tntr=457) Occasional MUCUS (BEAKER) (test anyp=4189) Rare SQUAMOUS EPITHELIAL (BEAKER) (test gcdg=346) 1 /HPF HYALINE CASTS (BEAKER) (test ujkg=233) 135 /LPF CASTS (BEAKER) (test edtp=6328) 8 /LPF SOURCE(BEAKER) (test uxaf=4327) Urine, Voided PLATELET [id number] 09:02:00 Test Item Value Reference Range Comments PLATELET COUNT (BEAKER) (test fwat=973) 11 K/CU MM 150-430 POCT-GLUCOSE [id number] 08:00:00 Test Item Value Reference Range Comments POC-GLUCOSE METER (BEAKER) 92 mg/dL 70-110 TESTED AT [address] (test tvcl=4898) [facility] [address] CBC W/PLT COUNT & AUTO [id number] 07:24:00 Test Item Value Reference Range Comments WHITE BLOOD CELL COUNT (BEAKER) (test smyn=052) 5.2 K/ L 4.0-10.0 RED BLOOD CELL COUNT (BEAKER) (test fcik=840) 3.48 M/ L 4.20-5.80 HEMOGLOBIN (BEAKER) (test atgu=120) 10.8 GM/DL 13.0-16.8 HEMATOCRIT (BEAKER) (test qpki=470) 34.6 % 40.0-50.0 MEAN CORPUSCULAR VOLUME (BEAKER) (test exfa=387) 99.4 fL 82.0-98.0 MEAN CORPUSCULAR HEMOGLOBIN (BEAKER) (test 30.9 pg 27.0-33.0 fsbc=832) MEAN CORPUSCULAR HEMOGLOBIN CONC (BEAKER) (test 31.1 GM/DL 32.0-36.0 xdhp=967) RED CELL DISTRIBUTION WIDTH (BEAKER) (test 14.3 % 10.3-14.2 jzwn=965) PLATELET COUNT (BEAKER) (test sdld=093) 9 K/CU MM 150-430 MEAN PLATELET VOLUME (BEAKER) (test eqve=659) 10.7 fL 6.5-10.5 NUCLEATED RED BLOOD CELLS (BEAKER) (test 0 /100 WBC 0-0 wivd=534) NEUTROPHILS RELATIVE PERCENT (BEAKER) (test 76 % lygs=714) LYMPHOCYTES RELATIVE PERCENT (BEAKER) (test 8 % azrd=620) MONOCYTES RELATIVE PERCENT (BEAKER) (test 13 % dxkq=350) EOSINOPHILS RELATIVE PERCENT (BEAKER) (test 3 % ryvn=606) BASOPHILS RELATIVE PERCENT (BEAKER) (test 0 % opah=838) NEUTROPHILS ABSOLUTE COUNT (BEAKER) (test 3.95 K/ L 1.80-8.00 fbzc=004) LYMPHOCYTES ABSOLUTE COUNT (BEAKER) (test 0.42 K/ L 1.48-4.50 sfuw=240) MONOCYTES ABSOLUTE COUNT (BEAKER) (test abwg=164) 0.67 K/ L 0.00-1.30 EOSINOPHILS ABSOLUTE COUNT (BEAKER) (test 0.14 K/ L 0.00-0.50 wumh=382) BASOPHILS ABSOLUTE COUNT (BEAKER) (test xfde=937) 0.00 K/ L 0.00-0.20 0.00BASIC METABOLIC [id number] 06:16:00 Test Item Value Reference Range Comments SODIUM (BEAKER) (test 134 meq/L 136-145 jqkk=723) POTASSIUM (BEAKER) (test 5.2 meq/L 3.5-5.1 qgcz=760) CHLORIDE (BEAKER) (test 100 meq/L 98-107 orrz=575) CO2 (BEAKER) (test 24 meq/L 22-29 aouj=158) BLOOD UREA NITROGEN 31 mg/dL 7-21 (BEAKER) (test yxde=184) CREATININE (BEAKER) (test 1.54 mg/dL 0.57-1.25 lsrq=923) GLUCOSE RANDOM (BEAKER) 99 mg/dL 70-105 (test mhyw=082) CALCIUM (BEAKER) (test 8.7 mg/dL 8.4-10.2 azob=511) EGFR (BEAKER) (test mL/min/1.73 sq m INSUFFICIENT CLINICAL DATA ufqu=5794) TO CALCULATE ESTIMATED GFR. CREATINE KINASE (CK), TOTAL AND [id number] 06:14:00 Test Item Value Reference Range Comments CREATINE KINASE TOTAL (BEAKER) (test uhha=218) 67 U/L 29-200 CREATINE KINASE-MB (BEAKER) (test uhna=519) 1.9 ng/mL 0.0-6.6 CREATINE KINASE-MB INDEX (BEAKER) (test klfj=655) 2.8 % Effective 05/09/2014: CK-MB Reference Range ChangeNew: 0.0-6.6 Previous: 0.0- 4.9CK-MB Reference Range:<6.7 Normal6.7-10.0 Borderline>10.0 AbnormalTROPONIN [id number] 06:14:00 Test Item Value Reference Range Comments TROPONIN I (BEAKER) (test zymj=155) 0.02 ng/mL 0.00-0.03 Effective 05/09/2014: Reference Range ChangeNew: 0.00-0.03 Previous 0.00- 0.15Troponin I (TnI) levels must be interpreted in the context of the presenting symptoms and the clinical findings. Elevated TnI levels indicate myocardial damage, but are not specific for ischemic heart disease. Elevated TnI levels are seen in patients with other cardiac conditions (including myocarditis and congestive heartfailure), and slight TnI elevations occur in patients with other conditions, including sepsis, renalfailure, acidosis, acute neurological disease, and persistent tachyarrhythmia.[id number] 05:40:00 Test Item Value Reference Range Comments PARTIAL THROMBOPLASTIN TIME (BEAKER) (test 35.1 seconds 22.5-36.0 cyox=623) PROTHROMBIN [id number] 05:39:00 Test Item Value Reference Range Comments PROTIME (BEAKER) (test wuto=913) 18.1 seconds 11.7-14.7 INR (BEAKER) (test gbfs=355) 1.5 <=5.9 RECOMMENDED COUMADIN/WARFARIN INR THERAPY RANGESSTANDARD DOSE: 2.0 - 3.0 Includes: PROPHYLAXIS forvenous thrombosis, systemic embolization; TREATMENT for venous thrombosis and/or pulmonary embolus.HIGH RISK: Target INR is 2.5-3.5 for patients with mechanical heart valves.T4, [id number] 03:16:00 Test Item Value Reference Range Comments FREE T4 (BEAKER) (test wgox=926) 1.45 ng/dL 0.70-1.48 TSH/FREE T4 IF [id number] 02:21:00 Test Item Value Reference Range Comments THYROID STIMULATING HORMONE (BEAKER) (test 6.77 uIU/mL 0.35-4.94 xkjn=128) CREATINE KINASE (CK), TOTAL AND [id number] 01:14:00 Test Item Value Reference Range Comments CREATINE KINASE TOTAL (BEAKER) (test kdfd=893) 76 U/L 29-200 CREATINE KINASE-MB (BEAKER) (test vezw=154) 1.7 ng/mL 0.0-6.6 CREATINE KINASE-MB INDEX (BEAKER) (test fyjm=557) 2.2 % Effective 05/09/2014: CK-MB Reference Range ChangeNew: 0.0-6.6 Previous: 0.0- 4.9CK-MB Reference Range:<6.7 Normal6.7-10.0 Borderline>10.0 AbnormalTROPONIN [id number] 01:14:00 Test Item Value Reference Range Comments TROPONIN I (BEAKER) (test bqhj=192) 0.02 ng/mL 0.00-0.03 Effective 05/09/2014: Reference Range ChangeNew: 0.00-0.03 Previous 0.00- 0.15Troponin I (TnI) levels must be interpreted in the context of the presenting symptoms and the clinical findings. Elevated TnI levels indicate myocardial damage, but are not specific for ischemic heart disease. Elevated TnI levels are seen in patients with other cardiac conditions (including myocarditis and congestive heartfailure), and slight TnI elevations occur in patients with other conditions, including sepsis, renalfailure, acidosis, acute neurological disease, and persistent tachyarrhythmia.LIPID [id number] 01:08 :00 Test Item Value Reference Range Comments TRIGLYCERIDES (BEAKER) (test xtjp=144) 82 mg/dL CHOLESTEROL (BEAKER) (test alkl=529) 145 mg/dL HDL CHOLESTEROL (BEAKER) (test dvfb=694) 49 mg/dL LDL CHOLESTEROL CALCULATED (BEAKER) (test 80 mg/dL azai=223) Triglyceride Reference Range: Low Risk <150 Borderline 150- 199 High Risk 200-499 Very High Risk >=500Cholesterol Reference Range: Low Risk <200 Borderline 200-239 High Risk > 240HDL Cholesterol Reference Range: Low Risk >=60 High Risk <40LDL Cholesterol Reference Range: Optimal <100 Near Optimal 100-129 Borderline 130-159 High 160-189 Very High >=190 Specimen slightly ictericDIGOXIN [id number] 18:22:00 Test Item Value Reference Range Comments DIGOXIN LEVEL (BEAKER) (test smll=833) 0.8 ng/mL 0.8-2.0 CREATINE KINASE (CK), TOTAL AND [id number] 17:51:00 Test Item Value Reference Range Comments CREATINE KINASE TOTAL (BEAKER) (test fdwb=693) 78 U/L 29-200 CREATINE KINASE-MB (BEAKER) (test xxmg=916) 1.9 ng/mL 0.0-6.6 CREATINE KINASE-MB INDEX (BEAKER) (test ssgr=037) 2.4 % Effective 05/09/2014: CK-MB Reference Range ChangeNew: 0.0-6.6 Previous: 0.0- 4.9CK-MB Reference Range:<6.7 Normal6.7-10.0 Borderline>10.0 AbnormalTROPONIN [id number] 17:51:00 Test Item Value Reference Range Comments TROPONIN I (BEAKER) (test czmb=312) 0.03 ng/mL 0.00-0.03 Effective 05/09/2014: Reference Range ChangeNew: 0.00-0.03 Previous 0.00- 0.15Troponin I (TnI) levels must be interpreted in the context of the presenting symptoms and the clinical findings. Elevated TnI levels indicate myocardial damage, but are not specific for ischemic heart disease. Elevated TnI levels are seen in patients with other cardiac conditions (including myocarditis and congestive heartfailure), and slight TnI elevations occur in patients with other conditions, including sepsis, renalfailure, acidosis, acute neurological disease, and persistent tachyarrhythmia.B-TYPE NATRIURETIC FACTOR ( BNP)2016-09-05 17:51:00 Test Item Value Reference Range Comments B-TYPE NATRIURETIC PEPTIDE (BEAKER) (test 334 pg/mL 0-100 zckr=330) BASIC METABOLIC [id number] 17:49:00 Test Item Value Reference Range Comments SODIUM (BEAKER) (test 136 meq/L 136-145 fbhz=015) POTASSIUM (BEAKER) (test 5.4 meq/L 3.5-5.1 hail=180) CHLORIDE (BEAKER) (test 101 meq/L 98-107 ovzv=791) CO2 (BEAKER) (test 27 meq/L 22-29 awue=895) BLOOD UREA NITROGEN 26 mg/dL 7-21 (BEAKER) (test khqf=075) CREATININE (BEAKER) (test 1.10 mg/dL 0.57-1.25 xqot=770) GLUCOSE RANDOM (BEAKER) 105 mg/dL 70-105 (test luqm=740) CALCIUM (BEAKER) (test 8.9 mg/dL 8.4-10.2 gkpp=301) EGFR (BEAKER) (test mL/min/1.73 sq m INSUFFICIENT CLINICAL DATA brwa=5483) TO CALCULATE ESTIMATED GFR. [id number] 17:45:00 Test Item Value Reference Range Comments LIPASE (BEAKER) (test qqqv=493) 43 U/L 8-78 ALT (SGPT)2016-09-05 17:45:00 Test Item Value Reference Range Comments ALT (SGPT) (BEAKER) (test vcex=325) 14 U/L 6-55 AST (SGOT)2016-09-05 17:45:00 Test Item Value Reference Range Comments AST (SGOT) (BEAKER) (test ykic=025) 33 U/L 5-34 BILIRUBIN, ADULT [id number] 17:45:00 Test Item Value Reference Range Comments BILIRUBIN TOTAL (BEAKER) (test uhek=989) 2.0 mg/dL 0.2-1.2 PROTHROMBIN TIME/[id number] 17:38:00 Test Item Value Reference Range Comments PROTIME (BEAKER) (test ntae=242) 20.2 seconds 11.7-14.7 INR (BEAKER) (test ykwk=188) 1.7 <=5.9 RECOMMENDED COUMADIN/WARFARIN INR THERAPY RANGESSTANDARD DOSE: 2.0 - 3.0 Includes: PROPHYLAXIS forvenous thrombosis, systemic embolization; TREATMENT for venous thrombosis and/or pulmonary embolus.HIGH RISK: Target INR is 2.5-3.5 for patients with mechanical heart valves.CBC W/PLT COUNT & AUTO [id number] 17:35:00 Test Item Value Reference Range Comments WHITE BLOOD CELL COUNT (BEAKER) (test svjs=362) 5.9 K/ L 4.0-10.0 RED BLOOD CELL COUNT (BEAKER) (test ixzc=423) 3.49 M/ L 4.20-5.80 HEMOGLOBIN (BEAKER) (test fxqc=108) 11.2 GM/DL 13.0-16.8 HEMATOCRIT (BEAKER) (test jtkw=327) 34.4 % 40.0-50.0 MEAN CORPUSCULAR VOLUME (BEAKER) (test taqv=936) 98.8 fL 82.0-98.0 MEAN CORPUSCULAR HEMOGLOBIN (BEAKER) (test 32.2 pg 27.0-33.0 ersh=695) MEAN CORPUSCULAR HEMOGLOBIN CONC (BEAKER) (test 32.6 GM/DL 32.0-36.0 wiou=833) RED CELL DISTRIBUTION WIDTH (BEAKER) (test 13.7 % 10.3-14.2 vkcb=898) PLATELET COUNT (BEAKER) (test nwwi=417) 28 K/CU MM 150-430 MEAN PLATELET VOLUME (BEAKER) (test yfjl=020) 9.0 fL 6.5-10.5 NUCLEATED RED BLOOD CELLS (BEAKER) (test 0 /100 WBC 0-0 krxo=114) NEUTROPHILS RELATIVE PERCENT (BEAKER) (test 78 % ccwc=388) LYMPHOCYTES RELATIVE PERCENT (BEAKER) (test 8 % dhra=047) MONOCYTES RELATIVE PERCENT (BEAKER) (test 10 % welw=285) EOSINOPHILS RELATIVE PERCENT (BEAKER) (test 4 % fsgn=655) BASOPHILS RELATIVE PERCENT (BEAKER) (test 0 % zdar=132) NEUTROPHILS ABSOLUTE COUNT (BEAKER) (test 4.58 K/ L 1.80-8.00 iumt=850) LYMPHOCYTES ABSOLUTE COUNT (BEAKER) (test 0.45 K/ L 1.48-4.50 vruu=231) MONOCYTES ABSOLUTE COUNT (BEAKER) (test fnim=749) 0.61 K/ L 0.00-1.30 EOSINOPHILS ABSOLUTE COUNT (BEAKER) (test 0.23 K/ L 0.00-0.50 xgap=036) BASOPHILS ABSOLUTE COUNT (BEAKER) (test mtsk=725) 0.02 K/ L 0.00-0.20 0.00
[2017-10-28 05:49] LABS: Absolute Lymphocytes (CBC) 0.6 K/uL (0.7-4.9); Absolute Monocytes 0.7 K/uL (0.1-1.3); Absolute Neutrophil 2.7 K/uL (1.8-8.0); Basophils % 0.4 % (0-1.3); Eosinophils % 3.5 % (0-4.4); Lymphocytes % 13.4 % (15.3-44.8); MCH 26.8 pg (27.0-35.0); MPV 8.2 fL (7.6-11.3); Monocytes % 17.1 % (3.3-12.3); RBC Red Blood Cell Count 3.44 M/uL (4.33-5.43)
[2017-10-28 06:04] LABS: Bilirubin Direct 0.4 mg/dL (0-0.2); Bilirubin Total 0.8 mg/dL (0.3-1.2); Magnesium 2.5 mg/dL (1.8-2.5); Protein, Total 8.2 g/dL (6.0-8.3)
[2017-10-28 06:06] LABS: CKMB Creatine Kinase MB 5.1 ng/ml (0.3-4.0)
[2017-10-28 06:10] LABS: Protime INR 5.98
[2017-10-28 06:12] LABS: Potassium 5.6 mEq/L (3.6-5.0)
[2017-10-28 06:20] LABS: Blood Morphology Comment NOT SEEN (NOT SEEN); Platelet Estimate ADEQ; Urine White Blood Cell Casts OK
[2017-10-28] MEDS ORDERED: SOD POLYSTYREN SUL 15 GM/60 ML UCUP ONE (07:02)
[2017-10-28] MEDS ORDERED: DERMABOND SKIN ADHESIVE TOP ONE (07:41)
--- NOTE | 2017-10-28 08:16 | RAD REPORT ---
EXAM DESCRIPTION: Margaret Single View10/28/2017 5:52 am CLINICAL HISTORY: Shortness of breath COMPARISON: July 2017 FINDINGS: The left base is hazy. The right lung appears clear The lungs appear clear of acute infil trate. The heart is normal size The heart is markedly enlarged. Pacemaker leads in place IMPRESSION: The left base is hazy which could be secondary to a small pleural effusion/atelectasis/i nfiltrate
--- NOTE | 2017-10-28 08:39 | EDPHYS ---
Physician Documentation [facility] Name: Gatito Gunn Age: 57 yrs Sex: Male : 1960 Arrival Date: 10/28/2017 Time: 05:07 Bed 8 Private MD: ED Physician Adam Ayala HPI: 10/28 06:30 This 57 yrs old Male presents to ER via EMS with complaints of Wound Check. pm1 06:30 Patient presents to the ER with complaints of laceration to left lower leg. Patient was pm1 sitting in his recliner and had some difficulty getting out. Cut his left lower leg on the edge of the recliner. Patient had a chronic would in the same area and was concerned that he might have injured that same chronic wound. Patient without any other complaints. Historical: - Allergies: 05:15 No Known Allergies; aa1 - Home Meds: 05:16 digoxin 250 mcg Oral tab 1 tab once daily [Active]; warfarin 2.5 mg Oral tab 1 tab once bb daily [Active]; levothyroxine 125 mcg oral tab 1 tab once daily [Active]; trazodone 50 mg Oral tab 1 tab daily [Active]; spironolactone 50 mg Oral tab 1 tab 2 times per day [Active]; erythromycin 5 mg/gram (0.5 %) Opht oint 4 times per day [Active]; furosemide 40 mg Oral tab 1 tab once daily [Active]; atorvastatin 20 mg oral tab 1 tab once daily [Active]; carvedilol 12.5 mg oral tab 1 tab daily [Active]; Santyl 250 unit/gram Topical oint once daily [Active]; lactulose 10 gram/15 mL (15 mL) Oral soln 15 mL once daily [Active]; acetaminophen-codeine 300-30 mg Oral tab 1 tab every 6 hours [Active]; - PMHx: 05:15 Atrial Fib; CHF; Cirrhosis; High Cholesterol; Hypertension; Myocardial infarction; aa1 Pacemaker; Renal Disease; Liver Failure; - PSHx: 05:15 Heart Surgery; aa1 - Immunization history:: Flu vaccine is not up to date. - Social history:: Smoking status: Patient/guardian denies using tobacco. ROS: 06:30 Constitutional: Negative for fever, chills, and weight loss, Eyes: Negative for injury, pm1 pain, redness, and discharge, ENT: Negative for injury, pain, and discharge, Neck: Negative for injury, pain, and swelling, Cardiovascular: Negative for chest pain, palpitations, and edema. 06:30 Abdomen/GI: Negative for abdominal pain, nausea, vomiting, diarrhea, and constipation, Back: Negative for injury and pain, : Negative for injury, bleeding, discharge, and swelling, MS/Extremity: Negative for injury and deformity, Skin: Negative for injury, rash, and discoloration, Neuro: Negative for headache, weakness, numbness, tingling, and seizure. 06:30 Respiratory: Positive for Baseline shortness of breath, Negative for cough, sputum production, wheezing. Exam: 06:30 Constitutional: This is a well developed, well nourished patient who is awake, alert, pm1 and in no acute distress. Head/Face: Normocephalic, atraumatic. Eyes: Pupils equal round and reactive to light, extra-ocular motions intact. Lids and lashes normal. Conjunctiva and sclera are non-icteric and not injected. Cornea within normal limits. Periorbital areas with no swelling, redness, or edema. bilateral exothalmos ENT: Nares patent. No nasal discharge, no septal abnormalities noted. Tympanic membranes are normal and external auditory canals are clear. Oropharynx with no redness, swelling, or masses, exudates, or evidence of obstruction, uvula midline. Mucous membranes moist. Neck: Trachea midline, no thyromegaly or masses palpated, and no cervical lymphadenopathy. Supple, full range of motion without nuchal rigidity, or vertebral point tenderness. No Meningismus. Chest/axilla: Normal chest wall appearance and motion. Nontender with no deformity. No lesions are appreciated. Cardiovascular: Regular rate and rhythm with a normal S1 and S2. No gallops, murmurs, or rubs. No pulse deficits. Respiratory: Lungs have equal breath sounds bilaterally, clear to auscultation and percussion. No rales, rhonchi or wheezes noted. No increased work of breathing, no retractions or nasal flaring. 06:30 Back: No spinal tenderness. No costovertebral tenderness. Full range of motion. 06:30 MS/ Extremity: Pulses equal, no cyanosis. Neurovascular intact. Full, normal range of motion. 06:30 Cardiovascular: Edema: pedal edema, 2+. 06:30 Abdomen/GI: Bowel sounds: normal, Palpation: abdomen is soft and non-tender, mass, is not appreciated, rebound tenderness, is not appreciated. 06:30 Skin: injury, is not appreciated, laceration(s), the wound is approximately 2 cm(s), of the lateral aspect of left calf, that can be described as Skin tear. 06:30 Neuro: Orientation: is normal, Mentation: is normal, Motor: moves all fours. Vital Signs: 05:15 BP 120 / 77; Pulse 65; Resp 20; Temp 97.5; Pulse Ox 99% on 3 lpm NC; Weight 76.66 kg; aa1 Height 5 ft. 3 in. (160.02 cm); Pain 7/10; 06:06 BP 120 / 75; Pulse 64; Resp 18; Pulse Ox 97% ; Pain 7/10; mg2 06:34 BP 111 / 80; Pulse 63; Resp 24; Pulse Ox 98% on R/A; tl2 08:19 BP 116 / 72; Pulse 69 MON; Resp 17 S; Pulse Ox 96% on R/A; sg 05:15 Body Mass Index 29.94 (76.66 kg, 160.02 cm) aa1 Laceration: 08:18 Wound Repair of 2cm ( 0.8in ) subcutaneous laceration to lateral aspect of left calf. pm1 Skin tear. Distal neuro/vascular/tendon intact. Wound prep: Extensive cleansing by nurse, Wound irrigation by nurse, Wound explored extensively, Copious irrigation. Skin closed with 1-0 Adhesive skin closure using simple sutures and sterile technique. Dressed with 4x4's. Patient tolerated well. MDM: 06:04 Patient medically screened. pm1 08:25 ED course: Discussed case with attending physician and patient determined not to not pm1 have conditions that require admission. Patient presented with complaints of skin tear to ER. Patient's hyperkalemia addressed with Kayexalate. Patient's renal function at baseline and warfarin can be held and managed outpatient by hydraulic riveter. Patient with cardiology appointment at 1000 today. 08:30 ED course: patient instructed to hold his Coumadin level and to follow up with his pm1 hydraulic riveter for further management of Coumadin and INR. Patient's wound repaired without any signs of bleeding. Patient has appointment with his hydraulic riveter at 1000 today. 08:36 Data reviewed: vital signs. Data interpreted: Pulse oximetry: on room air is 96 %. pm1 Interpretation: normal. Counseling: I had a detailed discussion with the patient and/or guardian regarding: the historical points, exam findings, and any diagnostic results supporting the discharge/admit diagnosis, lab results, radiology results, the need for outpatient follow up, to return to the emergency department if symptoms worsen or persist or if there are any questions or concerns that arise at home. 10/28 05:32 Order name: Basic Metabolic Panel; Complete Time: 06:17 tl2 10/28 05:32 Order name: BNP; Complete Time: 06:17 tl2 10/28 05:32 Order name: CBC with Diff; Complete Time: 06:34 tl2 10/28 05:32 Order name: Ckmb; Complete Time: 06:17 tl2 10/28 05:32 Order name: CPK; Complete Time: 06:17 tl2 10/28 05:32 Order name: LFT's; Complete Time: 06:17 tl2 10/28 05:32 Order name: Magnesium; Complete Time: 06:17 tl2 10/28 05:32 Order name: PT-INR; Complete Time: 06:17 tl2 10/28 05:32 Order name: Ptt, Activated; Complete Time: 06:17 tl2 10/28 05:32 Order name: Troponin (emerg Dept Use Only); Complete Time: 06:04 tl2 10/28 05:32 Order name: XRAY Chest (1 view); Complete Time: 08:18 tl2 10/28 06:20 Order name: CBC Smear Scan; Complete Time: 06:34 EDMS 10/28 06:44 Order name: Digoxin; Complete Time: 08:19 pm1 10/28 05:32 Order name: EKG; Complete Time: 05:32 tl2 10/28 05:32 Order name: Cardiac monitoring; Complete Time: 05:32 tl2 10/28 05:32 Order name: EKG - Nurse/Tech; Complete Time: 06:24 tl2 10/28 05:32 Order name: IV Saline Lock; Complete Time: 05:32 tl2 10/28 05:32 Order name: Labs collected and sent; Complete Time: 05:32 tl2 10/28 05:32 Order name: O2 Per Protocol; Complete Time: 05:33 tl2 10/28 05:32 Order name: O2 Sat Monitoring; Complete Time: 05:33 tl2 10/28 07:29 Order name: Dermabond; Complete Time: 08:00 pm1 10/28 07:29 Order name: Wound Care; Complete Time: 08:00 pm1 Administered Medications: 07:20 Drug: Kayexalate 30 grams Route: PO; sg Disposition: 10/28/17 08:38 Discharged to Home. Impression: Laceration without foreign body, left lower leg, Abnormal coagulation profile - Elevated INR, Hyperkalemia. - Condition is Stable. - Discharge Instructions: Hyperkalemia, Laceration Care, Adult. - Medication Reconciliation Form, Thank You Letter form. - Follow up: Emergency Department; When: As needed; Reason: Worsening of condition. Follow up: Private Physician; When: 2 - 3 days; Reason: Recheck today's complaints, Continuance of care, Re-evaluation by your physician. - Problem is new. - Symptoms have improved. - Notes: Stop taking your coumadin and follow up with your hydraulic riveter today for plans to repeat labs and reinitiations of your coumadin management Addendum: 11/07/2017 18:58 Co-signature as Attending Physician, Adam Ayala MD. p medhat Signatures: Dispatcher [employer] Jorge Kinsey RN RN sg Lenore Adamson RN RN aa1 Adam Ayala MD MD pkl Marcela Lloyd RN RN bb Pankaj Mcnair, SUPERVISOR [employer] SUPERVISOR [employer] pm1 Meenu Guerra RN RN tl2 Corrections: (The following items were deleted from the chart) 10/28 09:11 08:38 10/28/2017 08:38 Discharged to Home. Impression: Laceration without foreign body, sg left lower leg; Abnormal coagulation profile - Elevated INR; Hyperkalemia. Condition is Stable. Forms are Medication Reconciliation Form, Thank You Letter, Antibiotic Education, Prescription Opioid Use. Follow up: Emergency Department; When: As needed; Reason: Worsening of condition. Follow up: Private Physician; When: 2 - 3 days; Reason: Recheck today's complaints, Continuance of care, Re-evaluation by your physician. Problem is new. Symptoms have improved. pm1
--- NOTE | 2017-10-28 08:39 | ER ---
Nurse's Notes [facility] Name: Gatito Gunn Age: 57 yrs Sex: Male : 1960 Arrival Date: 10/28/2017 Time: 05:07 Bed 8 Private MD: Diagnosis: Laceration without foreign body, left lower leg;Abnormal coagulation profile-Elevated INR;Hyperkalemia Presentation: 10/28 05:11 Presenting complaint: Patient states: he has had swelling in his BLE for several months aa1 and has had a wound on his LLE as a result since April and today he scraped it on a chair and reopened it. BLE markedly swollen with weeping noted. Transition of care: patient was not received from another setting of care. Onset of symptoms was April 2017. Initial Sepsis Screen: Does the patient meet any 2 criteria? No. Patient's initial sepsis screen is negative. Does the patient have a suspected source of infection? Yes: Skin breakdown/wound. Care prior to arrival: None. 05:11 Method Of Arrival: EMS: [facility] aa1 05:11 Acuity: LAURO 2 aa1 Historical: - Allergies: 05:15 No Known Allergies; aa1 - Home Meds: 05:16 digoxin 250 mcg Oral tab 1 tab once daily [Active]; warfarin 2.5 mg Oral tab 1 tab once bb daily [Active]; levothyroxine 125 mcg oral tab 1 tab once daily [Active]; trazodone 50 mg Oral tab 1 tab daily [Active]; spironolactone 50 mg Oral tab 1 tab 2 times per day [Active]; erythromycin 5 mg/gram (0.5 %) Opht oint 4 times per day [Active]; furosemide 40 mg Oral tab 1 tab once daily [Active]; atorvastatin 20 mg oral tab 1 tab once daily [Active]; carvedilol 12.5 mg oral tab 1 tab daily [Active]; Santyl 250 unit/gram Topical oint once daily [Active]; lactulose 10 gram/15 mL (15 mL) Oral soln 15 mL once daily [Active]; acetaminophen-codeine 300-30 mg Oral tab 1 tab every 6 hours [Active]; - PMHx: 05:15 Atrial Fib; CHF; Cirrhosis; High Cholesterol; Hypertension; Myocardial infarction; aa1 Pacemaker; Renal Disease; Liver Failure; - PSHx: 05:15 Heart Surgery; aa1 - Immunization history:: Flu vaccine is not up to date. - Social history:: Smoking status: Patient/guardian denies using tobacco. Screenin:16 Abuse screen: Denies threats or abuse. Denies injuries from another. Nutritional aa1 screening: No deficits noted. Tuberculosis screening: No symptoms or risk factors identified. Fall Risk Gait- Weak (10 pts.). Assessment: 05:16 General: Appears in no apparent distress. comfortable, ill, Behavior is calm, aa1 cooperative, appropriate for age. Pain: Complains of pain in left leg Pain currently is 7 out of 10 on a pain scale. Neuro: Level of Consciousness is awake, alert, obeys commands, Oriented to person, place, time, situation. Cardiovascular: Heart tones S1 S2 present Edema is 4+ to left midcalf, left ankle, right midcalf and right ankle pitting to left midcalf, left ankle, left foot, right midcalf, right ankle and right foot. Respiratory: Airway is patent Respiratory effort is even, unlabored, Respiratory pattern is regular, symmetrical. GI: Abdomen is noted to have ascites. : No signs and/or symptoms were reported regarding the genitourinary system. EENT: No signs and/or symptoms were reported regarding the EENT system. Derm: Skin is thin, Skin is dry, Skin temperature is warm Wound noted left leg. Musculoskeletal: Circulation, motion, and sensation intact. Capillary refill < 3 seconds. 06:10 Reassessment: Critical lab values PT 79.1, INR 5.98, K 5.6. Given to PUBLIC DEFENDER. tl2 07:00 Reassessment: Patient appears in no apparent distress at this time. Patient and/or sg family updated on plan of care and expected duration. Pain level reassessed. Patient is alert, oriented x 3, equal unlabored respirations, skin warm/dry/pink. 08:04 Reassessment: Pankaj HAMILTON at bedside for woundcare and skin tear repair. sg Vital Signs: 05:15 BP 120 / 77; Pulse 65; Resp 20; Temp 97.5; Pulse Ox 99% on 3 lpm NC; Weight 76.66 kg; aa1 Height 5 ft. 3 in. (160.02 cm); Pain 7/10; 06:06 BP 120 / 75; Pulse 64; Resp 18; Pulse Ox 97% ; Pain 7/10; mg2 06:34 BP 111 / 80; Pulse 63; Resp 24; Pulse Ox 98% on R/A; tl2 08:19 BP 116 / 72; Pulse 69 MON; Resp 17 S; Pulse Ox 96% on R/A; sg 05:15 Body Mass Index 29.94 (76.66 kg, 160.02 cm) aa1 ED Course: 05:07 Patient arrived in ED. tl2 05:13 Triage completed. aa1 05:15 Arm band placed on right wrist. Patient placed in an exam room, on a stretcher. aa1 05:16 Patient has correct armband on for positive identification. Placed in gown. Bed in low aa1 position. Call light in reach. Side rails up X2. site monitor on. Pulse ox on. NIBP on. 05:16 Oxygen administration via nasal cannula \T\ 3L/min O2 via pt is on continuous O2 at home. aa1 05:22 Inserted saline lock: 20 gauge in right antecubital area, using aseptic technique. tl2 Blood collected. 05:49 X-ray completed. Portable x-ray completed in exam room. Patient tolerated procedure kw well. 05:50 XRAY Chest (1 view) In Process Unspecified. EDMS 06:01 Pankaj Mcnair NP is PHCP. pm1 06:01 Adam Ayala MD is Attending Physician. pm1 06:24 Dressings: non-adherent dressing x 2 lateral aspect of left calf and left estrella Tegaderm aa1 X 2; lateral aspect of left calf and left estrella THOMAS wrap x 1. 08:00 Jorge Arguelles, FAISAL is Primary Nurse. sg 08:00 Wound care: to thomas wrap removed, dressing bloody, dressing removed, skin tear noted to sg left calf, small amount of bleeding noted located on lateral aspect of left calf was cleaned with with betadine, hibicleanse, NS solution, Patient tolerated well. 08:45 Dressings: non-adherent dressing x 2 left estrella and lateral aspect of left calf Tegaderm sg X 2; lateral aspect of left calf and left estrella. 09:00 No provider procedures requiring assistance completed. IV discontinued, intact, sg bleeding controlled, No redness/swelling at site. Pressure dressing applied. Administered Medications: 07:20 Drug: Kayexalate 30 grams Route: PO; sg Outcome: 08:38 Discharge ordered by . pm1 09:00 Discharged to home via wheelchair, with family. sg 09:00 Condition: stable 09:00 Discharge instructions given to patient, Instructed on discharge instructions, follow up and referral plans. wound care, Demonstrated understanding of instructions, follow-up care, wound care. 09:11 Patient left the ED. sg Signatures: Dispatcher [employer] EDMS Jorge Arguelles RN RN sg Lenore Adamson RN RN aa1 Marcela Lloyd RN RN bb Whitley, Kimberlee kw Marinas, Patrick, NP PUBLIC DEFENDER pm1 Meenu Guerra RN RN tl2 Alex Ibarra RN RN mg2 Corrections: (The following items were deleted from the chart) 06:13 06:10 Reassessment: Critical lab values PT 79.1 INR 5.98. Given to PUBLIC DEFENDER tl2 tl2
[2017-10-28 09:17] VITALS: TEMP 97.5
[2017-10-28 09:20] VITALS: BP 116/72; O2SAT 96
--- NOTE | 2017-10-28 11:59 | EKG ---
Test Date: 2017-10-28 Test Time: 05:38:15 [facility]: DIETER MEASUREMENT RESULTS: Intervals: Rate: 66 [place]: QRSD: 116 QT: 430 QTc: 450 [place]: P: [place]: QRS: 69 T: -41 INTERPRETIVE STATEMENTS: Atrial fibrillation Inferior infarct, age undetermined ST & T wave abnormality, consider anterolateral ischemia Incomplete right bundle branch block Abnormal ECG Compared to ECG 06/07/2017 17:10:42 Myocardial infarct finding still present Electronically Signed On 10-28-17 11:59:46 CDT by Bal Khan
== END 2017-10-28 09:11 | disposition home or self-care (01) ==
LOC: ER 05:05
PROC: 0JQP0ZZ Repair Left Lower Leg Subcutaneous Tissue and Fascia, Open Approach (ICD-10-PCS; principal; 2017-10-28)
PROC: 0JQP0ZZ Repair Left Lower Leg Subcutaneous Tissue and Fascia, Open Approach (ICD-10-PCS; 2017-10-28)
DX: S81.812A Laceration without foreign body, left lower leg, initial encounter (principal); E87.5 Hyperkalemia; R79.1 Abnormal coagulation profile; W26.8XXA Contact with other sharp object(s), not elsewhere classified, initial encounter; Y93.89 Activity, other specified; Y92.009 Unspecified place in unspecified non-institutional (private) residence as the place of occurrence of the external cause; Z79.01 Long term (current) use of anticoagulants; Z95.0 Presence of cardiac pacemaker; I10 Essential (primary) hypertension; I25.2 Old myocardial infarction; E78.00 Pure hypercholesterolemia, unspecified; I50.9 Heart failure, unspecified; I48.91 Unspecified atrial fibrillation
CPT/HCPCS: 36415; 71045; 80048; 80076; 80162; 82550; 82553; 83735; 83880; 84484; 85025; 85610; 85730; 93005; 99285

== ENCOUNTER 2017-10-30 11:20 | Emergency (ER) | payer OTHER ==
--- OUTSIDE RECORDS SUMMARY | 2017-10-30 11:22 | XMS REPORT | Clinical Summary ---
:1960 Author Organization [facility] Address [address] [place] [address] Phone Care Team Providers Name Role Phone [...] Macrocytic anemia 09/06/2016 Coronary artery disease involving [place] heart without angina pectoris 2016 Non morbid obesity 09/06/2016 Chest pain, unspecified type 09/05/2016 Social History Tobacco Use Types Packs/Day Years Used Date Unknown If Ever Smoked Alcohol Use Drinks/Week oz/Week Comments Yes Sex Assigned at Date Recorded Not on file Last Filed Vital Signs Not on file Plan of Treatment Not on file Implants Implanted Type Area Grip Boss Device Expiration Model / Identifier Date Serial / Lot Patch Vasc [place] 1.65mm 1x6in [id number] - [id number] Graft/Patc N/A: [id number] / Implanted: Qty: 1 on 09/23/2016 by Adam Sullivan MD Chest BARD: PERIPHERAL / VASC [id number] Valve Mitrl De Leon Ii 33mm - [id number] Valves N/A: [employer]:STRUCT 02/17 [id number] / Implanted: Qty: 1 on 09/23/2016 by Adam Sullivan MD Chest URAL HEART [id number] / Results ARRYTHMIA IMPLANT REPORT - SCAN (03/05/2017 7:40 AM)Only the most recent of2 resultswithin the time period is included.after 10/29/2016
--- OUTSIDE RECORDS SUMMARY | 2017-10-30 11:28 | XMS REPORT ---
:1960 Author Organization [facility] Address [address] [place] [address] Dr. Powers [address] [place] [id number] Care Team Providers Name Role Phone INGAABILIO [...] (BEAKER) (test 121 mg/dL 70-110 TESTED AT [address] pwxx=1369) [facility] [address] POCT-GLUCOSE [id number] 12:00:00 Test Item Value Reference Range Comments POC-GLUCOSE METER (BEAKER) 118 mg/dL 70-110 TESTED AT [address] (test jmhs=1553) [facility] [address] CBC W/PLT COUNT & AUTO [id number] 11:55:00 Test Item Value Reference Range Comments WHITE BLOOD CELL COUNT (BEAKER) (test bvwy=999) 8.9 K/ L 4.0-10.0 RED BLOOD CELL COUNT (BEAKER) (test qinc=121) 2.79 M/ L 4.20-5.80 HEMOGLOBIN (BEAKER) (test pgtz=015) 9.2 GM/DL 13.0-16.8 HEMATOCRIT (BEAKER) (test ljyu=336) 27.1 % 40.0-50.0 MEAN CORPUSCULAR VOLUME (BEAKER) (test opzk=960) 97.1 fL 82.0-98.0 MEAN CORPUSCULAR HEMOGLOBIN (BEAKER) (test 33.1 pg 27.0-33.0 ryaj=046) MEAN CORPUSCULAR HEMOGLOBIN CONC (BEAKER) (test 34.1 GM/DL 32.0-36.0 ngal=568) RED CELL DISTRIBUTION WIDTH (BEAKER) (test 15.5 % 10.3-14.2 ujbs=773) PLATELET COUNT (BEAKER) (test elzs=256) 29 K/CU MM 150-430 MEAN PLATELET VOLUME (BEAKER) (test kxpa=601) 9.4 fL 6.5-10.5 NUCLEATED RED BLOOD CELLS (BEAKER) (test 0 /100 WBC 0-0 xqdy=833) NEUTROPHILS RELATIVE PERCENT (BEAKER) (test 87 % xixa=371) LYMPHOCYTES RELATIVE PERCENT (BEAKER) (test 5 % hvwj=927) MONOCYTES RELATIVE PERCENT (BEAKER) (test 8 % rflt=903) EOSINOPHILS RELATIVE PERCENT (BEAKER) (test 1 % jpns=184) BASOPHILS RELATIVE PERCENT (BEAKER) (test 0 % ybjt=347) NEUTROPHILS ABSOLUTE COUNT (BEAKER) (test 7.73 K/ L 1.80-8.00 efhe=681) LYMPHOCYTES ABSOLUTE COUNT (BEAKER) (test 0.42 K/ L 1.48-4.50 qewf=149) MONOCYTES ABSOLUTE COUNT (BEAKER) (test nbsx=487) 0.73 K/ L 0.00-1.30 EOSINOPHILS ABSOLUTE COUNT (BEAKER) (test 0.05 K/ L 0.00-0.50 faji=613) BASOPHILS ABSOLUTE COUNT (BEAKER) (test aygj=813) 0.00 K/ L 0.00-0.20 0.00POCT-GLUCOSE [id number] 07:54:00 Test Item Value Reference Range Comments POC-GLUCOSE METER (BEAKER) 94 mg/dL 70-110 TESTED AT [address] (test cinh=9527) [facility] [address] POCT-GLUCOSE [id number] 22:14:00 Test Item Value Reference Range Comments POC-GLUCOSE METER (BEAKER) 221 mg/dL 70-110 TESTED AT [address] (test vnsz=8251) [facility] [address] POCT-GLUCOSE [id number] 18:29:00 Test Item Value Reference Range Comments POC-GLUCOSE METER (BEAKER) 144 mg/dL 70-110 TESTED AT [address] (test kktm=5642) [facility] [address] POCT-GLUCOSE [id number] 12:57:00 Test Item Value Reference Range Comments POC-GLUCOSE METER (BEAKER) 195 mg/dL 70-110 TESTED AT [facility] [address] [facility] (test wgtn=0544) [place] [address] CBC W/PLT COUNT & AUTO [id number] 08:36:00 Test Item Value Reference Range Comments WHITE BLOOD CELL COUNT (BEAKER) (test hzla=532) 11.1 K/ L 4.0-10.0 RED BLOOD CELL COUNT (BEAKER) (test dmes=639) 2.68 M/ L 4.20-5.80 HEMOGLOBIN (BEAKER) (test shtz=740) 9.0 GM/DL 13.0-16.8 HEMATOCRIT (BEAKER) (test kmfh=715) 26.5 % 40.0-50.0 MEAN CORPUSCULAR VOLUME (BEAKER) (test hegt=577) 98.7 fL 82.0-98.0 MEAN CORPUSCULAR HEMOGLOBIN (BEAKER) (test 33.5 pg 27.0-33.0 rdiq=384) MEAN CORPUSCULAR HEMOGLOBIN CONC (BEAKER) (test 34.0 GM/DL 32.0-36.0 lgtx=560) RED CELL DISTRIBUTION WIDTH (BEAKER) (test 15.3 % 10.3-14.2 rhgl=245) PLATELET COUNT (BEAKER) (test hjst=835) 30 K/CU MM 150-430 MEAN PLATELET VOLUME (BEAKER) (test ggqd=726) 8.7 fL 6.5-10.5 NUCLEATED RED BLOOD CELLS (BEAKER) (test 0 /100 WBC 0-0 gwei=798) NEUTROPHILS RELATIVE PERCENT (BEAKER) (test 85 % iduj=461) LYMPHOCYTES RELATIVE PERCENT (BEAKER) (test 5 % kngq=996) MONOCYTES RELATIVE PERCENT (BEAKER) (test 9 % ewan=331) EOSINOPHILS RELATIVE PERCENT (BEAKER) (test 0 % dzcl=426) BASOPHILS RELATIVE PERCENT (BEAKER) (test 0 % fbai=854) NEUTROPHILS ABSOLUTE COUNT (BEAKER) (test 9.48 K/ L 1.80-8.00 hutg=608) LYMPHOCYTES ABSOLUTE COUNT (BEAKER) (test 0.56 K/ L 1.48-4.50 btsm=076) MONOCYTES ABSOLUTE COUNT (BEAKER) (test kwin=797) 1.05 K/ L 0.00-1.30 EOSINOPHILS ABSOLUTE COUNT (BEAKER) (test 0.05 K/ L 0.00-0.50 wnsq=756) BASOPHILS ABSOLUTE COUNT (BEAKER) (test xbku=574) 0.00 K/ L 0.00-0.20 0.00POCT-GLUCOSE [id number] 08:26:00 Test Item Value Reference Range Comments POC-GLUCOSE METER (BEAKER) 107 mg/dL 70-110 TESTED AT [facility] [address] [facility] (test knms=6093) [place] [address] PROTHROMBIN [id number] 05:20:00 Test Item Value Reference Range Comments PROTIME (BEAKER) (test tcxb=997) 17.0 seconds 11.7-14.7 INR (BEAKER) (test pvpp=866) 1.4 <=5.9 RECOMMENDED COUMADIN/WARFARIN INR THERAPY RANGESSTANDARD DOSE: 2.0 - 3.0 Includes: PROPHYLAXIS forvenous thrombosis, systemic embolization; TREATMENT for venous thrombosis and/or pulmonary embolus.HIGH RISK: Target INR is 2.5-3.5 for patients with mechanical heart valves.[id number] 05:20:00 Test Item Value Reference Range Comments PARTIAL THROMBOPLASTIN TIME (BEAKER) (test 27.8 seconds 22.5-36.0 erra=652) [id number] 05:20:00 Test Item Value Reference Range Comments FIBRINOGEN LEVEL (BEAKER) (test xfeg=533) 183 mg/dl 225-434 B-TYPE NATRIURETIC FACTOR (BNP)2016-09-30 05:11:00 Test Item Value Reference Range Comments B-TYPE NATRIURETIC PEPTIDE (BEAKER) (test 256 pg/mL 0-100 jtvy=369) BASIC METABOLIC [id number] 05:09:00 Test Item Value Reference Range Comments SODIUM (BEAKER) (test 133 meq/L 136-145 hpag=861) POTASSIUM (BEAKER) (test 3.5 meq/L 3.5-5.1 pwaw=589) CHLORIDE (BEAKER) (test 93 meq/L 98-107 xbmm=036) CO2 (BEAKER) (test 30 meq/L 22-29 epah=067) BLOOD UREA NITROGEN 40 mg/dL 7-21 (BEAKER) (test piwv=236) CREATININE (BEAKER) (test 0.85 mg/dL 0.57-1.25 yvrv=071) GLUCOSE RANDOM (BEAKER) 143 mg/dL 70-105 (test cbuq=039) CALCIUM (BEAKER) (test 8.5 mg/dL 8.4-10.2 jhbv=540) EGFR (BEAKER) (test mL/min/1.73 sq m INSUFFICIENT CLINICAL DATA arvd=5025) TO CALCULATE ESTIMATED GFR. POCT-GLUCOSE [id number] 21:25:00 Test Item Value Reference Range Comments POC-GLUCOSE METER (BEAKER) 139 mg/dL 70-110 TESTED AT [address] (test jcxi=7964) [facility] [address] POCT-GLUCOSE [id number] 17:50:00 Test Item Value Reference Range Comments POC-GLUCOSE METER (BEAKER) 173 mg/dL 70-110 TESTED AT [address] (test tqwp=8793) [facility] [address] POCT-GLUCOSE [id number] 08:56:00 Test Item Value Reference Range Comments POC-GLUCOSE METER (BEAKER) 155 mg/dL 70-110 TESTED AT [address] (test fzww=5342) [facility] [address] CBC W/PLT COUNT & AUTO [id number] 04:54:00 Test Item Value Reference Range Comments WHITE BLOOD CELL COUNT (BEAKER) (test pgej=850) 8.7 K/ L 4.0-10.0 RED BLOOD CELL COUNT (BEAKER) (test uesi=874) 2.72 M/ L 4.20-5.80 HEMOGLOBIN (BEAKER) (test vgdl=235) 9.4 GM/DL 13.0-16.8 HEMATOCRIT (BEAKER) (test zhac=866) 27.0 % 40.0-50.0 MEAN CORPUSCULAR VOLUME (BEAKER) (test nnxv=400) 99.4 fL 82.0-98.0 MEAN CORPUSCULAR HEMOGLOBIN (BEAKER) (test 34.6 pg 27.0-33.0 fuyi=836) MEAN CORPUSCULAR HEMOGLOBIN CONC (BEAKER) (test 34.8 GM/DL 32.0-36.0 aved=889) RED CELL DISTRIBUTION WIDTH (BEAKER) (test 15.3 % 10.3-14.2 unoj=381) PLATELET COUNT (BEAKER) (test wrxz=301) 24 K/CU MM 150-430 MEAN PLATELET VOLUME (BEAKER) (test sopq=814) 9.9 fL 6.5-10.5 NUCLEATED RED BLOOD CELLS (BEAKER) (test 0 /100 WBC 0-0 bbjt=097) NEUTROPHILS RELATIVE PERCENT (BEAKER) (test 89 % rkrr=083) LYMPHOCYTES RELATIVE PERCENT (BEAKER) (test 4 % unkf=974) MONOCYTES RELATIVE PERCENT (BEAKER) (test 8 % elct=990) EOSINOPHILS RELATIVE PERCENT (BEAKER) (test 0 % avbq=505) BASOPHILS RELATIVE PERCENT (BEAKER) (test 0 % pfjv=504) NEUTROPHILS ABSOLUTE COUNT (BEAKER) (test 7.72 K/ L 1.80-8.00 fmrt=191) LYMPHOCYTES ABSOLUTE COUNT (BEAKER) (test 0.31 K/ L 1.48-4.50 bhkc=376) MONOCYTES ABSOLUTE COUNT (BEAKER) (test hdeb=857) 0.68 K/ L 0.00-1.30 EOSINOPHILS ABSOLUTE COUNT (BEAKER) (test 0.02 K/ L 0.00-0.50 cwfb=094) BASOPHILS ABSOLUTE COUNT (BEAKER) (test uuwq=892) 0.00 K/ L 0.00-0.20 0.00POCT-GLUCOSE [id number] 22:11:00 Test Item Value Reference Range Comments POC-GLUCOSE METER (BEAKER) 295 mg/dL 70-110 TESTED AT [address] (test uqol=8136) [facility] [address] POCT-GLUCOSE [id number] 16:50:00 Test Item Value Reference Range Comments POC-GLUCOSE METER (BEAKER) 149 mg/dL 70-110 TESTED AT [address] (test afmc=6212) [facility] [address] [id number] 15:04:00 Test Item Value Reference Range Comments POTASSIUM (BEAKER) (test lnxq=824) 4.0 meq/L 3.5-5.1 [id number] 15:04:00 Test Item Value Reference Range Comments MAGNESIUM (BEAKER) (test czqv=684) 2.7 mg/dL 1.6-2.6 POCT-GLUCOSE [id number] 12:34:00 Test Item Value Reference Range Comments POC-GLUCOSE METER (BEAKER) 128 mg/dL 70-110 TESTED AT [address] (test jopu=2031) [facility] [address] POCT-GLUCOSE [id number] 11:39:00 Test Item Value Reference Range Comments POC-GLUCOSE METER (BEAKER) 120 mg/dL 70-110 TESTED AT [address] (test xron=6771) [place] [address] POCT-GLUCOSE [id number] 07:51:00 Test Item Value Reference Range Comments POC-GLUCOSE METER (BEAKER) 87 mg/dL 70-110 TESTED AT [address] (test rrcj=3845) [facility] [address] BLOOD GAS, [id number] 05:59:00 Test Item Value Reference Range Comments PH ARTERIAL (BEAKER) (test bauy=446) 7.41 7.35-7.45 PCO2 ARTERIAL (BEAKER) (test kkln=904) 60 mmHg 35-45 PO2 ARTERIAL (BEAKER) (test otvz=349) 179 mmHg 80-90 O2 SATURATION ARTERIAL (BEAKER) (test cxav=768) 99.2 % 96.0-97.0 HCO3 ARTERIAL (BEAKER) (test mkyd=248) 38 mmol/L 21-29 BASE EXCESS ARTERIAL (BEAKER) (test qnhi=044) 11.6 mmol/L -2.0-3.0 PATIENT TEMPERATURE (BEAKER) (test bocy=7840) 36.5 C FIO2 (BEAKER) (test qaxt=2335) 50.0 % CBC W/PLT COUNT & AUTO [id number] 05:40:00 Test Item Value Reference Range Comments WHITE BLOOD CELL COUNT (BEAKER) (test clph=208) 9.1 K/ L 4.0-10.0 RED BLOOD CELL COUNT (BEAKER) (test bbqg=158) 2.62 M/ L 4.20-5.80 HEMOGLOBIN (BEAKER) (test wfif=926) 8.7 GM/DL 13.0-16.8 HEMATOCRIT (BEAKER) (test ctsd=666) 25.9 % 40.0-50.0 MEAN CORPUSCULAR VOLUME (BEAKER) (test kyft=210) 98.8 fL 82.0-98.0 MEAN CORPUSCULAR HEMOGLOBIN (BEAKER) (test 33.0 pg 27.0-33.0 akhe=497) MEAN CORPUSCULAR HEMOGLOBIN CONC (BEAKER) (test 33.4 GM/DL 32.0-36.0 rsjd=367) RED CELL DISTRIBUTION WIDTH (BEAKER) (test 15.9 % 10.3-14.2 vtqc=372) PLATELET COUNT (BEAKER) (test jmnp=214) 30 K/CU MM 150-430 MEAN PLATELET VOLUME (BEAKER) (test zzit=689) 9.4 fL 6.5-10.5 NUCLEATED RED BLOOD CELLS (BEAKER) (test 0 /100 WBC 0-0 vciz=479) NEUTROPHILS RELATIVE PERCENT (BEAKER) (test 87 % ossn=391) LYMPHOCYTES RELATIVE PERCENT (BEAKER) (test 4 % xkft=845) MONOCYTES RELATIVE PERCENT (BEAKER) (test 9 % culg=386) EOSINOPHILS RELATIVE PERCENT (BEAKER) (test 0 % ghug=685) BASOPHILS RELATIVE PERCENT (BEAKER) (test 0 % lgby=116) NEUTROPHILS ABSOLUTE COUNT (BEAKER) (test 7.93 K/ L 1.80-8.00 yuzu=839) LYMPHOCYTES ABSOLUTE COUNT (BEAKER) (test 0.32 K/ L 1.48-4.50 rzoy=126) MONOCYTES ABSOLUTE COUNT (BEAKER) (test iahe=988) 0.81 K/ L 0.00-1.30 EOSINOPHILS ABSOLUTE COUNT (BEAKER) (test 0.01 K/ L 0.00-0.50 vgrc=899) BASOPHILS ABSOLUTE COUNT (BEAKER) (test tmer=216) 0.01 K/ L 0.00-0.20 0.00BASI METABOLIC [id number] 04:53:00 Test Item Value Reference Range Comments SODIUM (BEAKER) (test 135 meq/L 136-145 hcfo=515) POTASSIUM (BEAKER) (test 4.2 meq/L 3.5-5.1 xiws=618) CHLORIDE (BEAKER) (test 92 meq/L 98-107 hsaj=894) CO2 (BEAKER) (test 36 meq/L 22-29 icuj=361) BLOOD UREA NITROGEN 48 mg/dL 7-21 (BEAKER) (test wzem=530) CREATININE (BEAKER) (test 0.89 mg/dL 0.57-1.25 vuak=785) GLUCOSE RANDOM (BEAKER) 105 mg/dL 70-105 (test ditg=890) CALCIUM (BEAKER) (test 8.4 mg/dL 8.4-10.2 gjdk=823) EGFR (BEAKER) (test mL/min/1.73 sq m INSUFFICIENT CLINICAL DATA ciyi=6610) TO CALCULATE ESTIMATED GFR. Check Serum Magnesium level 2 hours after IV magnesium replacement.[id number] 04:43:00 Test Item Value Reference Range Comments POTASSIUM (BEAKER) (test vjko=906) 4.2 meq/L 3.5-5.1 Check Serum Magnesium level 2 hours after IV magnesium replacement.[id number] -[id number] 04:43:00 Test Item Value Reference Range Comments MAGNESIUM (BEAKER) (test zadg=416) 2.5 mg/dL 1.6-2.6 Check Serum Magnesium level 2 hours after IV magnesium replacement.HEPATIC FUNCTION [id number] 04:43:00 Test Item Value Reference Range Comments TOTAL PROTEIN (BEAKER) (test revu=494) 6.4 gm/dL 6.0-8.3 ALBUMIN (BEAKER) (test xpge=6832) 3.4 g/dL 3.5-5.0 BILIRUBIN TOTAL (BEAKER) (test pkvh=154) 1.6 mg/dL 0.2-1.2 BILIRUBIN DIRECT (BEAKER) (test rupp=485) 0.9 mg/dL 0.1-0.5 ALKALINE PHOSPHATASE (BEAKER) (test oadc=716) 100 U/L 40-150 AST (SGOT) (BEAKER) (test skjd=112) 27 U/L 5-34 ALT (SGPT) (BEAKER) (test lvos=544) 27 U/L 6-55 Check Serum Magnesium level 2 hours after IV magnesium replacement.PROTHROMBIN [id number] 04:33:00 Test Item Value Reference Range Comments PROTIME (BEAKER) (test oksp=263) 16.6 seconds 11.7-14.7 INR (BEAKER) (test ftem=437) 1.4 <=5.9 RECOMMENDED COUMADIN/WARFARIN INR THERAPY RANGESSTANDARD DOSE: 2.0 - 3.0 Includes: PROPHYLAXIS forvenous thrombosis, systemic embolization; TREATMENT for venous thrombosis and/or pulmonary embolus.HIGH RISK: Target INR is 2.5-3.5 for patients with mechanical heart valves.[id number] 01:32:00 Test Item Value Reference Range Comments POTASSIUM (BEAKER) (test oops=428) 4.0 meq/L 3.5-5.1 Check Serum Magnesium level 2 hours after IV magnesium replacement.[id number] -[id number] 01:32:00 Test Item Value Reference Range Comments MAGNESIUM (BEAKER) (test zbqs=467) 2.6 mg/dL 1.6-2.6 Check Serum Magnesium level 2 hours after IV magnesium replacement.POCT-GLUCOSE [id number] 01:04:00 Test Item Value Reference Range Comments POC-GLUCOSE METER (BEAKER) 142 mg/dL 70-110 TESTED AT [address] (test kcvg=0330) [place] [address] [id number] 18:48:00 Test Item Value Reference Range Comments POTASSIUM (BEAKER) (test yswd=892) 4.5 meq/L 3.5-5.1 Check Serum Magnesium level 2 hours after IV magnesium replacement.[id number] -[id number] 18:48:00 Test Item Value Reference Range Comments MAGNESIUM (BEAKER) (test ckaj=240) 2.5 mg/dL 1.6-2.6 Check Serum Magnesium level 2 hours after IV magnesium replacement.CALCIUM, [id number] 18:33:00 Test Item Value Reference Range Comments CALCIUM IONIZED (BEAKER) (test uqpm=085) 1.13 mmol/L 1.12-1.27 PH, BLOOD (BEAKER) (test hfpz=7350) 7.39 Check serum Ionized Calcium level after 4 hours after IV Calcium replacement.POCT-GLUCOSE [id number] 17:19:00 Test Item Value Reference Range Comments POC-GLUCOSE METER (BEAKER) 169 mg/dL 70-110 TESTED AT [address] (test bexk=8648) [place] [address] [id number] 13:12:00 Test Item Value Reference Range Comments POTASSIUM (BEAKER) (test olew=199) 3.6 meq/L 3.5-5.1 Check Serum Magnesium level 2 hours after IV magnesium replacement.[id number] -04-08 13:12:00 Test Item Value Reference Range Comments MAGNESIUM (BEAKER) (test jjdf=718) 2.1 mg/dL 1.6-2.6 Check Serum Magnesium level 2 hours after IV magnesium replacement.POCT-GLUCOSE [id number] 12:25:00 Test Item Value Reference Range Comments POC-GLUCOSE METER (BEAKER) 149 mg/dL 70-110 TESTED AT [address] (test xpaf=0448) [place] [address] CALCIUM, [id number] 12:12:00 Test Item Value Reference Range Comments CALCIUM IONIZED (BEAKER) (test fnaj=826) 1.07 mmol/L 1.12-1.27 PH, BLOOD (BEAKER) (test ytyb=1552) 7.40 Check serum Ionized Calcium level after 4 hours after IV Calcium replacement.POCT-GLUCOSE [id number] 07:51:00 Test Item Value Reference Range Comments POC-GLUCOSE METER (BEAKER) 92 mg/dL 70-110 TESTED AT [address] (test qxpf=8333) [place] [id number] BLOOD GAS, [id number] 05:03:00 Test Item Value Reference Range Comments PH ARTERIAL (BEAKER) (test ovkl=764) 7.47 7.35-7.45 PCO2 ARTERIAL (BEAKER) (test rbxc=826) 58 mmHg 35-45 PO2 ARTERIAL (BEAKER) (test uqls=402) 186 mmHg 80-90 O2 SATURATION ARTERIAL (BEAKER) (test dpvt=311) 99.3 % 96.0-97.0 HCO3 ARTERIAL (BEAKER) (test smla=440) 41 mmol/L 21-29 BASE EXCESS ARTERIAL (BEAKER) (test lgqk=080) 15.6 mmol/L -2.0-3.0 PATIENT TEMPERATURE (BEAKER) (test ahpr=2463) 37.0 C FIO2 (BEAKER) (test ijcy=3753) 50.0 % CBC W/PLT COUNT & AUTO [id number] 04:18:00 Test Item Value Reference Range Comments WHITE BLOOD CELL COUNT (BEAKER) (test sgfh=116) 11.8 K/ L 4.0-10.0 RED BLOOD CELL COUNT (BEAKER) (test dtfz=670) 2.65 M/ L 4.20-5.80 HEMOGLOBIN (BEAKER) (test wndu=796) 8.7 GM/DL 13.0-16.8 HEMATOCRIT (BEAKER) (test vfbo=176) 26.2 % 40.0-50.0 MEAN CORPUSCULAR VOLUME (BEAKER) (test nosn=735) 98.7 fL 82.0-98.0 MEAN CORPUSCULAR HEMOGLOBIN (BEAKER) (test 32.8 pg 27.0-33.0 cund=235) MEAN CORPUSCULAR HEMOGLOBIN CONC (BEAKER) (test 33.2 GM/DL 32.0-36.0 vjlg=989) RED CELL DISTRIBUTION WIDTH (BEAKER) (test 15.7 % 10.3-14.2 agwe=923) PLATELET COUNT (BEAKER) (test atkp=123) 42 K/CU MM 150-430 MEAN PLATELET VOLUME (BEAKER) (test yxjg=316) 8.2 fL 6.5-10.5 NUCLEATED RED BLOOD CELLS (BEAKER) (test 0 /100 WBC 0-0 sose=629) NEUTROPHILS RELATIVE PERCENT (BEAKER) (test 90 % cwjo=048) LYMPHOCYTES RELATIVE PERCENT (BEAKER) (test 3 % vota=321) MONOCYTES RELATIVE PERCENT (BEAKER) (test 8 % pxpk=051) EOSINOPHILS RELATIVE PERCENT (BEAKER) (test 0 % akuu=082) BASOPHILS RELATIVE PERCENT (BEAKER) (test 0 % lzih=592) NEUTROPHILS ABSOLUTE COUNT (BEAKER) (test 10.60 K/ L 1.80-8.00 jxuc=246) LYMPHOCYTES ABSOLUTE COUNT (BEAKER) (test 0.32 K/ L 1.48-4.50 bblb=760) MONOCYTES ABSOLUTE COUNT (BEAKER) (test fapo=630) 0.91 K/ L 0.00-1.30 EOSINOPHILS ABSOLUTE COUNT (BEAKER) (test 0.01 K/ L 0.00-0.50 kiuz=445) BASOPHILS ABSOLUTE COUNT (BEAKER) (test lhgc=896) 0.00 K/ L 0.00-0.20 0.00BASI METABOLIC [id number] 04:12:00 Test Item Value Reference Range Comments SODIUM (BEAKER) (test 139 meq/L 136-145 wcqc=617) POTASSIUM (BEAKER) (test 3.9 meq/L 3.5-5.1 xgwr=808) CHLORIDE (BEAKER) (test 92 meq/L 98-107 efsm=405) CO2 (BEAKER) (test 39 meq/L 22-29 hfzw=906) BLOOD UREA NITROGEN 44 mg/dL 7-21 (BEAKER) (test yffq=827) CREATININE (BEAKER) (test 0.95 mg/dL 0.57-1.25 negn=363) GLUCOSE RANDOM (BEAKER) 104 mg/dL 70-105 (test vtxl=091) CALCIUM (BEAKER) (test 8.7 mg/dL 8.4-10.2 hyox=546) EGFR (BEAKER) (test mL/min/1.73 sq m INSUFFICIENT CLINICAL DATA cqox=3272) TO CALCULATE ESTIMATED GFR. [id number] 04:04:00 Test Item Value Reference Range Comments POTASSIUM (BEAKER) (test dyso=579) 3.9 meq/L 3.5-5.1 [id number] 04:04:00 Test Item Value Reference Range Comments MAGNESIUM (BEAKER) (test exzm=048) 2.4 mg/dL 1.6-2.6 HEPATIC FUNCTION [id number] 04:04:00 Test Item Value Reference Range Comments TOTAL PROTEIN (BEAKER) (test fohz=007) 6.6 gm/dL 6.0-8.3 ALBUMIN (BEAKER) (test zyjt=3799) 3.5 g/dL 3.5-5.0 BILIRUBIN TOTAL (BEAKER) (test xubx=176) 1.7 mg/dL 0.2-1.2 BILIRUBIN DIRECT (BEAKER) (test pfvr=842) 0.9 mg/dL 0.1-0.5 ALKALINE PHOSPHATASE (BEAKER) (test lrht=283) 98 U/L 40-150 AST (SGOT) (BEAKER) (test eosf=874) 33 U/L 5-34 ALT (SGPT) (BEAKER) (test yrll=582) 26 U/L 6-55 PROTHROMBIN [id number] 03:49:00 Test Item Value Reference Range Comments PROTIME (BEAKER) (test cyws=086) 16.3 seconds 11.7-14.7 INR (BEAKER) (test ldie=991) 1.3 <=5.9 RECOMMENDED COUMADIN/WARFARIN INR THERAPY RANGESSTANDARD DOSE: 2.0 - 3.0 Includes: PROPHYLAXIS forvenous thrombosis, systemic embolization; TREATMENT for venous thrombosis and/or pulmonary embolus.HIGH RISK: Target INR is 2.5-3.5 for patients with mechanical heart valves.BASIC METABOLIC [id number] 00:47: 00 Test Item Value Reference Range Comments SODIUM (BEAKER) (test 137 meq/L 136-145 xabu=928) POTASSIUM (BEAKER) (test 4.0 meq/L 3.5-5.1 ngei=354) CHLORIDE (BEAKER) (test 93 meq/L 98-107 bgyv=404) CO2 (BEAKER) (test 36 meq/L 22-29 hqbx=226) BLOOD UREA NITROGEN 45 mg/dL 7-21 (BEAKER) (test ysyk=493) CREATININE (BEAKER) (test 1.03 mg/dL 0.57-1.25 lxvb=741) GLUCOSE RANDOM (BEAKER) 146 mg/dL 70-105 (test rqcd=104) CALCIUM (BEAKER) (test 7.9 mg/dL 8.4-10.2 gqkl=362) EGFR (BEAKER) (test mL/min/1.73 sq m INSUFFICIENT CLINICAL DATA ufrt=7857) TO CALCULATE ESTIMATED GFR. Check Serum Magnesium level 2 hours after IV magnesium replacement.CBC W/PLT COUNT & AUTO [id number] 00:10:00 Test Item Value Reference Range Comments WHITE BLOOD CELL COUNT (BEAKER) (test qkpp=106) 11.3 K/ L 4.0-10.0 RED BLOOD CELL COUNT (BEAKER) (test jnux=862) 2.58 M/ L 4.20-5.80 HEMOGLOBIN (BEAKER) (test luxk=749) 8.5 GM/DL 13.0-16.8 HEMATOCRIT (BEAKER) (test jxod=340) 25.5 % 40.0-50.0 MEAN CORPUSCULAR VOLUME (BEAKER) (test onph=289) 99.0 fL 82.0-98.0 MEAN CORPUSCULAR HEMOGLOBIN (BEAKER) (test 32.9 pg 27.0-33.0 ftnl=675) MEAN CORPUSCULAR HEMOGLOBIN CONC (BEAKER) (test 33.3 GM/DL 32.0-36.0 nwmr=294) RED CELL DISTRIBUTION WIDTH (BEAKER) (test 15.6 % 10.3-14.2 zqzu=816) PLATELET COUNT (BEAKER) (test fqff=481) 40 K/CU MM 150-430 MEAN PLATELET VOLUME (BEAKER) (test yklm=328) 8.4 fL 6.5-10.5 NUCLEATED RED BLOOD CELLS (BEAKER) (test 0 /100 WBC 0-0 xtok=536) NEUTROPHILS RELATIVE PERCENT (BEAKER) (test 90 % udye=466) LYMPHOCYTES RELATIVE PERCENT (BEAKER) (test 2 % sufv=438) MONOCYTES RELATIVE PERCENT (BEAKER) (test 7 % gieg=689) EOSINOPHILS RELATIVE PERCENT (BEAKER) (test 0 % juuu=690) BASOPHILS RELATIVE PERCENT (BEAKER) (test 1 % ugah=381) NEUTROPHILS ABSOLUTE COUNT (BEAKER) (test 10.20 K/ L 1.80-8.00 xtum=534) LYMPHOCYTES ABSOLUTE COUNT (BEAKER) (test 0.19 K/ L 1.48-4.50 zjcx=518) MONOCYTES ABSOLUTE COUNT (BEAKER) (test pmfp=356) 0.83 K/ L 0.00-1.30 EOSINOPHILS ABSOLUTE COUNT (BEAKER) (test 0.01 K/ L 0.00-0.50 hqfd=682) BASOPHILS ABSOLUTE COUNT (BEAKER) (test wxny=570) 0.07 K/ L 0.00-0.20 0.00CALCIUM, [id number] 00:07:00 Test Item Value Reference Range Comments CALCIUM IONIZED (BEAKER) (test kysu=878) 1.06 mmol/L 1.12-1.27 PH, BLOOD (BEAKER) (test sosh=8386) 7.38 [id number] 23:53:00 Test Item Value Reference Range Comments POTASSIUM (BEAKER) (test ddts=509) 4.1 meq/L 3.5-5.1 Check Serum Magnesium level 2 hours after IV magnesium replacement.[id number] -04-07 23:53:00 Test Item Value Reference Range Comments MAGNESIUM (BEAKER) (test bcgl=915) 2.0 mg/dL 1.6-2.6 Check Serum Magnesium level 2 hours after IV magnesium replacement.POCT-GLUCOSE [id number] 22:39:00 Test Item Value Reference Range Comments POC-GLUCOSE METER (BEAKER) 209 mg/dL 70-110 TESTED AT [facility] [address] [facility] (test wwte=9219) [facility] [address] POCT-GLUCOSE [id number] 20:00:00 Test Item Value Reference Range Comments POC-GLUCOSE METER (BEAKER) 168 mg/dL 70-110 TESTED AT [facility] [address] (test bpwx=4194) [facility] [address] [id number] 18:48:00 Test Item Value Reference Range Comments POTASSIUM (BEAKER) (test zhbq=119) 3.9 meq/L 3.5-5.1 Check Serum Magnesium level 2 hours after IV magnesium replacement.[id number] 18:48:00 Test Item Value Reference Range Comments MAGNESIUM (BEAKER) (test jyyv=641) 2.2 mg/dL 1.6-2.6 Check Serum Magnesium level 2 hours after IV magnesium replacement.[id number] -[id number] 12:21:00 Test Item Value Reference Range Comments POTASSIUM (BEAKER) (test cmdh=317) 3.5 meq/L 3.5-5.1 Check Serum Magnesium level 2 hours after IV magnesium replacement.[id number] -[id number] 12:21:00 Test Item Value Reference Range Comments MAGNESIUM (BEAKER) (test hrlc=884) 2.2 mg/dL 1.6-2.6 Check Serum Magnesium level 2 hours after IV magnesium replacement.LACTATE DEHYDROGENASE (LDH)2016-09-26 12:08:00 Test Item Value Reference Range Comments LACTATE DEHYDROGENASE (BEAKER) (test xiot=941) 291 U/L 125-220 [id number] 12:06:00 Test Item Value Reference Range Comments D-DIMER QUANTITATIVE (BEAKER) (test ydkm=137) 9.38 MG/L FEU <0.50 Intended Use: The D-Dimer Assay can be used to aid in the diagnosis of Deep Vein Thrombosis (DVT) and Pulmonary Embolism Disease (PED).In patients with low pre-test probability, various studies concerning STA Liatest D-dimer test have reported that with a cutoff value of 0.50 MG/L FEU, the Negative Predictive Value (NPV) regarding the exclusion of thrombosis is within 95-100% range.[id number] 11:51:00 Test Item Value Reference Range Comments FIBRINOGEN LEVEL (BEAKER) (test ojoj=809) 247 mg/dl 225-434 BLOOD GAS, [id number] 11:39:00 Test Item Value Reference Range Comments PH ARTERIAL (BEAKER) (test vgpx=831) 7.44 7.35-7.45 PCO2 ARTERIAL (BEAKER) (test bzik=223) 55 mmHg 35-45 PO2 ARTERIAL (BEAKER) (test wnoc=489) 101 mmHg 80-90 O2 SATURATION ARTERIAL (BEAKER) (test snve=818) 97.8 % 96.0-97.0 HCO3 ARTERIAL (BEAKER) (test nykq=977) 37 mmol/L 21-29 BASE EXCESS ARTERIAL (BEAKER) (test gotx=320) 11.2 mmol/L -2.0-3.0 PATIENT TEMPERATURE (BEAKER) (test qlyo=0840) 36.5 C FIO2 (BEAKER) (test cxba=0149) 36.0 % HEMOGLOBIN [id number] 08:13:00 Test Item Value Reference Range Comments HEMOGLOBIN A1C (BEAKER) (test iiqn=867) 5.5 % 4.3-6.1 BLOOD GAS, [id number] 07:04:00 Test Item Value Reference Range Comments PH ARTERIAL (BEAKER) (test nykj=393) 7.38 7.35-7.45 PCO2 ARTERIAL (BEAKER) (test cgmp=620) 60 mmHg 35-45 PO2 ARTERIAL (BEAKER) (test yrcy=852) 293 mmHg 80-90 O2 SATURATION ARTERIAL (BEAKER) (test xcvl=679) 99.6 % 96.0-97.0 HCO3 ARTERIAL (BEAKER) (test ushy=530) 35 mmol/L 21-29 BASE EXCESS ARTERIAL (BEAKER) (test lhwq=997) 7.9 mmol/L -2.0-3.0 PATIENT TEMPERATURE (BEAKER) (test hxww=4158) 36.5 C FIO2 (BEAKER) (test lpda=4259) 60.0 % OXYGEN SATURATION, [id number] 06:13:00 Test Item Value Reference Range Comments O2 SATURATION (MEASURED) (BEAKER) (test ycfe=9938) 89.5 % [id number] 05:30:00 Test Item Value Reference Range Comments MAGNESIUM (BEAKER) (test nxep=052) 2.1 mg/dL 1.6-2.6 HEPATIC FUNCTION [id number] 05:30:00 Test Item Value Reference Range Comments TOTAL PROTEIN (BEAKER) (test vabj=364) 6.4 gm/dL 6.0-8.3 ALBUMIN (BEAKER) (test vhip=7993) 3.5 g/dL 3.5-5.0 BILIRUBIN TOTAL (BEAKER) (test jznc=434) 1.6 mg/dL 0.2-1.2 BILIRUBIN DIRECT (BEAKER) (test zdxa=295) 0.9 mg/dL 0.1-0.5 ALKALINE PHOSPHATASE (BEAKER) (test jcqg=833) 86 U/L 40-150 AST (SGOT) (BEAKER) (test efpt=657) 38 U/L 5-34 ALT (SGPT) (BEAKER) (test ymxh=008) 29 U/L 6-55 BASIC METABOLIC [id number] 05:30:00 Test Item Value Reference Range Comments SODIUM (BEAKER) (test 138 meq/L 136-145 gviw=650) POTASSIUM (BEAKER) (test 4.1 meq/L 3.5-5.1 zrpe=268) CHLORIDE (BEAKER) (test 98 meq/L 98-107 tkcg=285) CO2 (BEAKER) (test 31 meq/L 22-29 payo=166) BLOOD UREA NITROGEN 46 mg/dL 7-21 (BEAKER) (test zutz=326) CREATININE (BEAKER) (test 1.06 mg/dL 0.57-1.25 exev=809) GLUCOSE RANDOM (BEAKER) 128 mg/dL 70-105 (test qgka=346) CALCIUM (BEAKER) (test 8.1 mg/dL 8.4-10.2 nfcq=911) EGFR (BEAKER) (test mL/min/1.73 sq m INSUFFICIENT CLINICAL DATA avul=2725) TO CALCULATE ESTIMATED GFR. CBC W/PLT COUNT & AUTO [id number] 05:18:00 Test Item Value Reference Range Comments WHITE BLOOD CELL COUNT (BEAKER) (test qobc=540) 13.3 K/ L 4.0-10.0 RED BLOOD CELL COUNT (BEAKER) (test ghlp=498) 2.68 M/ L 4.20-5.80 HEMOGLOBIN (BEAKER) (test cytk=498) 8.6 GM/DL 13.0-16.8 HEMATOCRIT (BEAKER) (test uhgt=275) 26.3 % 40.0-50.0 MEAN CORPUSCULAR VOLUME (BEAKER) (test uglv=819) 98.1 fL 82.0-98.0 MEAN CORPUSCULAR HEMOGLOBIN (BEAKER) (test 32.2 pg 27.0-33.0 nshc=145) MEAN CORPUSCULAR HEMOGLOBIN CONC (BEAKER) (test 32.8 GM/DL 32.0-36.0 hpbl=529) RED CELL DISTRIBUTION WIDTH (BEAKER) (test 15.5 % 10.3-14.2 amzq=984) PLATELET COUNT (BEAKER) (test qjcs=260) 40 K/CU MM 150-430 MEAN PLATELET VOLUME (BEAKER) (test ugec=267) 8.7 fL 6.5-10.5 NUCLEATED RED BLOOD CELLS (BEAKER) (test 0 /100 WBC 0-0 qyma=893) NEUTROPHILS RELATIVE PERCENT (BEAKER) (test 91 % kswg=456) LYMPHOCYTES RELATIVE PERCENT (BEAKER) (test 2 % kyph=771) MONOCYTES RELATIVE PERCENT (BEAKER) (test 7 % hvvs=700) EOSINOPHILS RELATIVE PERCENT (BEAKER) (test 0 % slyo=467) BASOPHILS RELATIVE PERCENT (BEAKER) (test 0 % xizp=090) NEUTROPHILS ABSOLUTE COUNT (BEAKER) (test 12.10 K/ L 1.80-8.00 mots=198) LYMPHOCYTES ABSOLUTE COUNT (BEAKER) (test 0.31 K/ L 1.48-4.50 syue=892) MONOCYTES ABSOLUTE COUNT (BEAKER) (test unfw=957) 0.87 K/ L 0.00-1.30 EOSINOPHILS ABSOLUTE COUNT (BEAKER) (test 0.01 K/ L 0.00-0.50 dpyq=373) BASOPHILS ABSOLUTE COUNT (BEAKER) (test kjzi=153) 0.00 K/ L 0.00-0.20 0.00PROTHROMBIN [id number] 05:07:00 Test Item Value Reference Range Comments PROTIME (BEAKER) (test egsc=718) 16.7 seconds 11.7-14.7 INR (BEAKER) (test wzmd=709) 1.4 <=5.9 RECOMMENDED COUMADIN/WARFARIN INR THERAPY RANGESSTANDARD DOSE: 2.0 - 3.0 Includes: PROPHYLAXIS forvenous thrombosis, systemic embolization; TREATMENT for venous thrombosis and/or pulmonary embolus.HIGH RISK: Target INR is 2.5-3.5 for patients with mechanical heart valves.BLOOD GAS, [id number] 23:30:00 Test Item Value Reference Range Comments PH ARTERIAL (BEAKER) (test xenj=652) 7.33 7.35-7.45 PCO2 ARTERIAL (BEAKER) (test nzyh=164) 60 mmHg 35-45 PO2 ARTERIAL (BEAKER) (test qcud=040) 169 mmHg 80-90 O2 SATURATION ARTERIAL (BEAKER) (test ijgs=191) 99.0 % 96.0-97.0 HCO3 ARTERIAL (BEAKER) (test nklf=625) 31 mmol/L 21-29 BASE EXCESS ARTERIAL (BEAKER) (test pbdi=267) 4.2 mmol/L -2.0-3.0 PATIENT TEMPERATURE (BEAKER) (test epjw=5090) 36.5 C FIO2 (BEAKER) (test ayey=1322) 36.0 % POTASSIUM-STAT [id number] 23:07:00 Test Item Value Reference Range Comments POTASSIUM (BEAKER) (test qoeq=860) 4.3 meq/L 3.6-5.5 SODIUM NA-STAT [id number] 23:07:00 Test Item Value Reference Range Comments SODIUM (BEAKER) (test ynlq=571) 134 meq/L 135-148 HGB/HCT (H&H) - STAT [id number] 23:07:00 Test Item Value Reference Range Comments HEMOGLOBIN (BEAKER) (test sulh=255) 9.5 g/dL 13.0-16.8 HEMATOCRIT (BEAKER) (test dinr=687) 28.0 % 40.0-50.0 CALCIUM, [id number] 23:06:00 Test Item Value Reference Range Comments CALCIUM IONIZED (BEAKER) (test ejll=223) 1.15 mmol/L 1.12-1.27 PH, BLOOD (BEAKER) (test zxzr=4618) 7.28 POCT-GLUCOSE [id number] 21:58:00 Test Item Value Reference Range Comments POC-GLUCOSE METER (BEAKER) 202 mg/dL 70-110 TESTED AT [address] (test kbws=7211) [facility] [address] POCT-GLUCOSE [id number] 16:44:00 Test Item Value Reference Range Comments POC-GLUCOSE METER (BEAKER) 220 mg/dL 70-110 TESTED AT [address] (test arct=0007) [facility] [address] PERIPHERAL BLOOD SMEAR - HOLD [id number] 16:10:00 Test Item Value Reference Range Comments PERIPHERAL SMEAR SAVE (BEAKER) (test haws=0691) saved POCT-GLUCOSE [id number] 11:01:00 Test Item Value Reference Range Comments POC-GLUCOSE METER (BEAKER) 152 mg/dL 70-110 TESTED AT [facility] [address] [facility] (test lhut=1290) [facility] [address] POCT-GLUCOSE [id number] 07:16:00 Test Item Value Reference Range Comments POC-GLUCOSE METER (BEAKER) 125 mg/dL 70-110 TESTED AT [address] (test dvft=4650) [facility] [address] BASIC METABOLIC [id number] 03:47:00 Test Item Value Reference Range Comments SODIUM (BEAKER) (test 136 meq/L 136-145 nmzb=385) POTASSIUM (BEAKER) (test 4.0 meq/L 3.5-5.1 euds=211) CHLORIDE (BEAKER) (test 101 meq/L 98-107 ohrp=218) CO2 (BEAKER) (test 27 meq/L 22-29 wmif=700) BLOOD UREA NITROGEN 46 mg/dL 7-21 (BEAKER) (test lyxo=019) CREATININE (BEAKER) (test 1.28 mg/dL 0.57-1.25 ahji=904) GLUCOSE RANDOM (BEAKER) 133 mg/dL 70-105 (test ehqb=576) CALCIUM (BEAKER) (test 8.4 mg/dL 8.4-10.2 esin=683) EGFR (BEAKER) (test mL/min/1.73 sq m INSUFFICIENT CLINICAL DATA riav=8138) TO CALCULATE ESTIMATED GFR. [id number] 03:46:00 Test Item Value Reference Range Comments MAGNESIUM (BEAKER) (test xeiu=407) 2.2 mg/dL 1.6-2.6 HEPATIC FUNCTION [id number] 03:46:00 Test Item Value Reference Range Comments TOTAL PROTEIN (BEAKER) (test yvvi=696) 6.0 gm/dL 6.0-8.3 ALBUMIN (BEAKER) (test jnei=1275) 3.4 g/dL 3.5-5.0 BILIRUBIN TOTAL (BEAKER) (test owze=523) 1.7 mg/dL 0.2-1.2 BILIRUBIN DIRECT (BEAKER) (test nand=972) 1.0 mg/dL 0.1-0.5 ALKALINE PHOSPHATASE (BEAKER) (test galj=362) 72 U/L 40-150 AST (SGOT) (BEAKER) (test zdcc=924) 46 U/L 5-34 ALT (SGPT) (BEAKER) (test inaz=449) 32 U/L 6-55 [id number] 03:45:00 Test Item Value Reference Range Comments PARTIAL THROMBOPLASTIN TIME (BEAKER) (test 34.2 seconds 22.5-36.0 qjak=345) PROTHROMBIN [id number] 03:44:00 Test Item Value Reference Range Comments PROTIME (BEAKER) (test nlvg=140) 18.3 seconds 11.7-14.7 INR (BEAKER) (test zlqc=860) 1.5 <=5.9 RECOMMENDED COUMADIN/WARFARIN INR THERAPY RANGESSTANDARD DOSE: 2.0 - 3.0 Includes: PROPHYLAXIS forvenous thrombosis, systemic embolization; TREATMENT for venous thrombosis and/or pulmonary embolus.HIGH RISK: Target INR is 2.5-3.5 for patients with mechanical heart valves.CBC W/PLT COUNT & AUTO [id number] 03:42:00 Test Item Value Reference Range Comments WHITE BLOOD CELL COUNT (BEAKER) (test rklp=388) 17.8 K/ L 4.0-10.0 RED BLOOD CELL COUNT (BEAKER) (test pndg=139) 2.81 M/ L 4.20-5.80 HEMOGLOBIN (BEAKER) (test kkei=167) 8.9 GM/DL 13.0-16.8 HEMATOCRIT (BEAKER) (test vmdv=140) 27.4 % 40.0-50.0 MEAN CORPUSCULAR VOLUME (BEAKER) (test brsf=000) 97.5 fL 82.0-98.0 MEAN CORPUSCULAR HEMOGLOBIN (BEAKER) (test 31.7 pg 27.0-33.0 tblc=677) MEAN CORPUSCULAR HEMOGLOBIN CONC (BEAKER) (test 32.6 GM/DL 32.0-36.0 etgg=097) RED CELL DISTRIBUTION WIDTH (BEAKER) (test 14.8 % 10.3-14.2 auyf=552) PLATELET COUNT (BEAKER) (test lcfj=086) 56 K/CU MM 150-430 MEAN PLATELET VOLUME (BEAKER) (test rvjf=730) 8.6 fL 6.5-10.5 NUCLEATED RED BLOOD CELLS (BEAKER) (test 0 /100 WBC 0-0 wwyo=716) NEUTROPHILS RELATIVE PERCENT (BEAKER) (test 89 % dupr=225) LYMPHOCYTES RELATIVE PERCENT (BEAKER) (test 3 % utiw=679) MONOCYTES RELATIVE PERCENT (BEAKER) (test 8 % exaz=270) EOSINOPHILS RELATIVE PERCENT (BEAKER) (test 0 % pxfn=755) BASOPHILS RELATIVE PERCENT (BEAKER) (test 0 % usyi=414) NEUTROPHILS ABSOLUTE COUNT (BEAKER) (test 15.90 K/ L 1.80-8.00 jbac=043) LYMPHOCYTES ABSOLUTE COUNT (BEAKER) (test 0.51 K/ L 1.48-4.50 dqxn=147) MONOCYTES ABSOLUTE COUNT (BEAKER) (test walf=418) 1.38 K/ L 0.00-1.30 EOSINOPHILS ABSOLUTE COUNT (BEAKER) (test 0.01 K/ L 0.00-0.50 mttz=080) BASOPHILS ABSOLUTE COUNT (BEAKER) (test atjj=630) 0.00 K/ L 0.00-0.20 0.00OXYGEN SATURATION, [id number] 03:33:00 Test Item Value Reference Range Comments O2 SATURATION (MEASURED) (BEAKER) (test kugk=0123) 68.8 % POCT-GLUCOSE [id number] 21:40:00 Test Item Value Reference Range Comments POC-GLUCOSE METER (BEAKER) 181 mg/dL 70-110 TESTED AT [address] (test trwp=7150) [facility] [address] BASIC METABOLIC [id number] 21:06:00 Test Item Value Reference Range Comments SODIUM (BEAKER) (test 136 meq/L 136-145 bxzz=921) POTASSIUM (BEAKER) (test 4.1 meq/L 3.5-5.1 sbux=959) CHLORIDE (BEAKER) (test 102 meq/L 98-107 qreb=370) CO2 (BEAKER) (test 22 meq/L 22-29 zukf=192) BLOOD UREA NITROGEN 40 mg/dL 7-21 (BEAKER) (test qpua=435) CREATININE (BEAKER) (test 1.38 mg/dL 0.57-1.25 lsgy=465) GLUCOSE RANDOM (BEAKER) 207 mg/dL 70-105 (test szty=703) CALCIUM (BEAKER) (test 8.6 mg/dL 8.4-10.2 htsh=338) EGFR (BEAKER) (test mL/min/1.73 sq m INSUFFICIENT CLINICAL DATA pidw=8630) TO CALCULATE ESTIMATED GFR. [id number] 21:04:00 Test Item Value Reference Range Comments PHOSPHORUS (BEAKER) (test mjks=309) 5.4 mg/dL 2.3-4.7 [id number] 21:04:00 Test Item Value Reference Range Comments MAGNESIUM (BEAKER) (test sswd=811) 2.2 mg/dL 1.6-2.6 CALCIUM, [id number] 20:47:00 Test Item Value Reference Range Comments CALCIUM IONIZED (BEAKER) (test eqqb=645) 1.13 mmol/L 1.12-1.27 PH, BLOOD (BEAKER) (test ujpx=5343) 7.38 POCT-GLUCOSE [id number] 17:51:00 Test Item Value Reference Range Comments POC-GLUCOSE METER (BEAKER) 173 mg/dL 70-110 TESTED AT [address] (test sssi=0762) [facility] [address] LACTIC ACID, ARTERIAL, WHOLE [id number] 13:02:00 Test Item Value Reference Range Comments LACTATE BLOOD ARTERIAL (2) 1.4 mmol/L 0.5-2.2 Specimen slightly hemolyzed (BEAKER) (test slsw=8658) Effective 10/24/2015: Units/Reference Range ChangeNew: 0.5-2.2 mmol/L Previous: 5 -20 mg/dLSpecimen slightly ictericOXYGEN SATURATION, [id number] 07:40:00 Test Item Value Reference Range Comments O2 SATURATION (MEASURED) (BEAKER) (test tgde=5141) 71.2 % BLOOD GAS, [id number] 07:39:00 Test Item Value Reference Range Comments PH ARTERIAL (BEAKER) (test hrls=223) 7.42 7.35-7.45 PCO2 ARTERIAL (BEAKER) (test ighj=176) 42 mmHg 35-45 PO2 ARTERIAL (BEAKER) (test qdmh=132) 126 mmHg 80-90 O2 SATURATION ARTERIAL (BEAKER) (test jgan=126) 98.6 % 96.0-97.0 HCO3 ARTERIAL (BEAKER) (test egzf=395) 27 mmol/L 21-29 BASE EXCESS ARTERIAL (BEAKER) (test awak=828) 1.8 mmol/L -2.0-3.0 PATIENT TEMPERATURE (BEAKER) (test lypq=0261) 36.3 C FIO2 (BEAKER) (test rzgn=6230) 36.0 % [id number] 05:56:00 Test Item Value Reference Range Comments ACTIVATED CLOTTING TIME 131 sec TESTED AT [address] ([facility]) (test gqnc=241) [place] [id number] 05:56:00 Test Item Value Reference Range Comments ACTIVATED CLOTTING TIME > sec OUTSIDE MEASURING RANGETESTED AT ([facility]) (test mces=450) [place] [address] [id number] 05:56:00 Test Item Value Reference Range Comments ACTIVATED CLOTTING TIME 441 sec TESTED AT [address] ([facility]) (test etam=532) [place] [address] [id number] 05:56:00 Test Item Value Reference Range Comments ACTIVATED CLOTTING TIME 533 sec TESTED AT [address] ([facility]) (test dxjj=182) [place] [address] [id number] 05:56:00 Test Item Value Reference Range Comments ACTIVATED CLOTTING TIME 528 sec TESTED AT [address] ([facility]) (test ebbk=880) [place] [address] [id number] 05:56:00 Test Item Value Reference Range Comments ACTIVATED CLOTTING TIME 415 sec TESTED AT [address] ([facility]) (test jjqb=860) [place] [address] [id number] 05:56:00 Test Item Value Reference Range Comments ACTIVATED CLOTTING TIME 301 sec TESTED AT [address] ([facility]) (test qvbk=915) [place] [address] POCT-GLUCOSE [id number] 05:45:00 Test Item Value Reference Range Comments POC-GLUCOSE METER (BEAKER) 116 mg/dL 70-110 TESTED AT [facility] [address] [facility] (test blse=5333) [facility] [address] BASIC METABOLIC [id number] 02:50:00 Test Item Value Reference Range Comments SODIUM (BEAKER) (test 139 meq/L 136-145 ghlo=032) POTASSIUM (BEAKER) (test 4.5 meq/L 3.5-5.1 uriu=492) CHLORIDE (BEAKER) (test 105 meq/L 98-107 ktgz=409) CO2 (BEAKER) (test 23 meq/L 22-29 xcrk=056) BLOOD UREA NITROGEN 42 mg/dL 7-21 (BEAKER) (test zceq=451) CREATININE (BEAKER) (test 1.28 mg/dL 0.57-1.25 khri=251) GLUCOSE RANDOM (BEAKER) 121 mg/dL 70-105 (test fwei=312) CALCIUM (BEAKER) (test 9.3 mg/dL 8.4-10.2 abwd=643) EGFR (BEAKER) (test mL/min/1.73 sq m INSUFFICIENT CLINICAL DATA jsxk=4695) TO CALCULATE ESTIMATED GFR. Specimen slightly ictericHEPATIC FUNCTION [id number] 02:42:00 Test Item Value Reference Range Comments TOTAL PROTEIN (BEAKER) (test uzmm=957) 5.8 gm/dL 6.0-8.3 ALBUMIN (BEAKER) (test zfth=7845) 3.3 g/dL 3.5-5.0 BILIRUBIN TOTAL (BEAKER) (test jcem=239) 2.2 mg/dL 0.2-1.2 BILIRUBIN DIRECT (BEAKER) (test ufor=724) 1.2 mg/dL 0.1-0.5 ALKALINE PHOSPHATASE (BEAKER) (test iubu=369) 67 U/L 40-150 AST (SGOT) (BEAKER) (test ivpo=014) 49 U/L 5-34 ALT (SGPT) (BEAKER) (test tetd=771) 30 U/L 6-55 Specimen slightly ictericCBC W/PLT COUNT & AUTO [id number] 02:34 :00 Test Item Value Reference Range Comments WHITE BLOOD CELL COUNT (BEAKER) (test hegf=429) 23.7 K/ L 4.0-10.0 RED BLOOD CELL COUNT (BEAKER) (test ctwh=715) 3.08 M/ L 4.20-5.80 HEMOGLOBIN (BEAKER) (test lide=247) 9.7 GM/DL 13.0-16.8 HEMATOCRIT (BEAKER) (test dhyw=296) 30.0 % 40.0-50.0 MEAN CORPUSCULAR VOLUME (BEAKER) (test omww=235) 97.4 fL 82.0-98.0 MEAN CORPUSCULAR HEMOGLOBIN (BEAKER) (test 31.4 pg 27.0-33.0 vces=501) MEAN CORPUSCULAR HEMOGLOBIN CONC (BEAKER) (test 32.2 GM/DL 32.0-36.0 yldj=837) RED CELL DISTRIBUTION WIDTH (BEAKER) (test 15.4 % 10.3-14.2 mdfi=562) PLATELET COUNT (BEAKER) (test fecc=239) 128 K/CU MM 150-430 MEAN PLATELET VOLUME (BEAKER) (test cxmw=186) 7.7 fL 6.5-10.5 NUCLEATED RED BLOOD CELLS (BEAKER) (test 0 /100 WBC 0-0 bpuw=032) NEUTROPHILS RELATIVE PERCENT (BEAKER) (test 87 % aojx=975) LYMPHOCYTES RELATIVE PERCENT (BEAKER) (test 3 % hjzk=292) MONOCYTES RELATIVE PERCENT (BEAKER) (test 9 % dqhn=399) EOSINOPHILS RELATIVE PERCENT (BEAKER) (test 0 % pelb=610) BASOPHILS RELATIVE PERCENT (BEAKER) (test 1 % viud=856) NEUTROPHILS ABSOLUTE COUNT (BEAKER) (test 20.70 K/ L 1.80-8.00 hqhs=645) LYMPHOCYTES ABSOLUTE COUNT (BEAKER) (test 0.71 K/ L 1.48-4.50 weet=908) MONOCYTES ABSOLUTE COUNT (BEAKER) (test 2.09 K/ L 0.00-1.30 miry=641) EOSINOPHILS ABSOLUTE COUNT (BEAKER) (test 0.02 K/ L 0.00-0.50 bgud=873) BASOPHILS ABSOLUTE COUNT (BEAKER) (test 0.12 K/ L 0.00-0.20 wdps=474) [id number] 02:27:00 Test Item Value Reference Range Comments FIBRINOGEN LEVEL (BEAKER) (test raud=368) 225 mg/dl 225-434 [id number] 02:27:00 Test Item Value Reference Range Comments PARTIAL THROMBOPLASTIN TIME (BEAKER) (test 33.6 seconds 22.5-36.0 gpyo=203) PROTHROMBIN [id number] 02:26:00 Test Item Value Reference Range Comments PROTIME (BEAKER) (test ffem=855) 18.3 seconds 11.7-14.7 INR (BEAKER) (test hwse=059) 1.5 <=5.9 RECOMMENDED COUMADIN/WARFARIN INR THERAPY RANGESSTANDARD DOSE: 2.0 - 3.0 Includes: PROPHYLAXIS forvenous thrombosis, systemic embolization; TREATMENT for venous thrombosis and/or pulmonary embolus.HIGH RISK: Target INR is 2.5-3.5 for patients with mechanical heart valves.[id number] 00:45:00 Test Item Value Reference Range Comments MAGNESIUM (BEAKER) (test yigf=465) 2.4 mg/dL 1.6-2.6 POCT-GLUCOSE [id number] 00:03:00 Test Item Value Reference Range Comments POC-GLUCOSE METER (BEAKER) 136 mg/dL 70-110 TESTED AT [address] (test yfha=2360) [place] [id number] POCT-GLUCOSE [id number] 22:33:00 Test Item Value Reference Range Comments POC-GLUCOSE METER (BEAKER) 136 mg/dL 70-110 TESTED AT [address] (test hvvf=8206) [place] [address] (MANUAL DIFFERENTIAL)[id number] 22:03:00 Test Item Value Reference Range Comments NEUTROPHILS - REL (DIFF) (BEAKER) (test 85 % qtsk=2237) LYMPHOCYTES - REL (DIFF) (BEAKER) (test 5 % lvrs=9542) MONOCYTES - REL (DIFF) (BEAKER) (test byfi=4009) 7 % BANDS - REL (DIFF) (BEAKER) (test xwsq=1665) 3 % 0-10 NEUTROPHILS - ABS (DIFF) (BEAKER) (test 24.06 K/ L 1.80-8.00 owcu=9002) LYMPHOCYTES - ABS (DIFF) (BEAKER) (test 1.42 K/ L 1.48-4.50 pooq=9515) MONOCYTES - ABS (DIFF) (BEAKER) (test dtem=3045) 1.98 K/ L 0.00-1.30 BANDS-ABS (DIFF) (BEAKER) (test exay=7930) 0.8 K/ L 0.0-0.8 TOTAL COUNTED (BEAKER) (test xank=4459) 100 BANDS + SEGMENTED NEUTROPHILS (BEAKER) (test 24.90 vowz=2747) WBC MORPHOLOGY (BEAKER) (test shtv=822) Normal PLT MORPHOLOGY (BEAKER) (test iech=216) Normal RBC MORPHOLOGY (BEAKER) (test qczs=540) Normal CBC W/PLT COUNT & AUTO [id number] 22:02:00 Test Item Value Reference Range Comments WHITE BLOOD CELL COUNT (BEAKER) (test yrhg=158) 28.3 K/ L 4.0-10.0 RED BLOOD CELL COUNT (BEAKER) (test eemu=012) 3.35 M/ L 4.20-5.80 HEMOGLOBIN (BEAKER) (test mlam=689) 10.5 GM/DL 13.0-16.8 HEMATOCRIT (BEAKER) (test tysu=113) 32.3 % 40.0-50.0 MEAN CORPUSCULAR VOLUME (BEAKER) (test dagl=991) 96.6 fL 82.0-98.0 MEAN CORPUSCULAR HEMOGLOBIN (BEAKER) (test 31.3 pg 27.0-33.0 umye=329) MEAN CORPUSCULAR HEMOGLOBIN CONC (BEAKER) (test 32.4 GM/DL 32.0-36.0 jmbf=034) RED CELL DISTRIBUTION WIDTH (BEAKER) (test 14.9 % 10.3-14.2 vxqi=292) PLATELET COUNT (BEAKER) (test gzgj=122) 139 K/CU MM 150-430 MEAN PLATELET VOLUME (BEAKER) (test zvif=945) 7.9 fL 6.5-10.5 NUCLEATED RED BLOOD CELLS (BEAKER) (test 0 /100 WBC 0-0 rsms=494) 0.000.550.000.000.000.00LACTIC ACID, ARTERIAL, WHOLE [id number] 21:40:00 Test Item Value Reference Range Comments LACTATE BLOOD ARTERIAL (2) (BEAKER) (test 1.3 mmol/L 0.5-2.2 rsry=8038) Effective 10/24/2015: Units/Reference Range ChangeNew: 0.5-2.2 mmol/L Previous: 5 -20 mg/dLSpecimen slightly ictericPROTHROMBIN TIME/[id number] 21:34:00 Test Item Value Reference Range Comments PROTIME (BEAKER) (test uhnc=325) 18.7 seconds 11.7-14.7 INR (BEAKER) (test zkcm=599) 1.6 <=5.9 RECOMMENDED COUMADIN/WARFARIN INR THERAPY RANGESSTANDARD DOSE: 2.0 - 3.0 Includes: PROPHYLAXIS forvenous thrombosis, systemic embolization; TREATMENT for venous thrombosis and/or pulmonary embolus.HIGH RISK: Target INR is 2.5-3.5 for patients with mechanical heart valves.[id number] 21:34:00 Test Item Value Reference Range Comments PARTIAL THROMBOPLASTIN TIME (BEAKER) (test 34.3 seconds 22.5-36.0 efyc=412) [id number] 21:28:00 Test Item Value Reference Range Comments POTASSIUM (BEAKER) (test vakp=449) 4.6 meq/L 3.5-5.1 POCT-GLUCOSE [id number] 21:27:00 Test Item Value Reference Range Comments POC-GLUCOSE METER (BEAKER) 150 mg/dL 70-110 [address]ED AT [address] (test jqtj=1657) [facility] [address] BLOOD GAS, [id number] 21:17:00 Test Item Value Reference Range Comments PH ARTERIAL (BEAKER) (test pkrs=134) 7.38 7.35-7.45 PCO2 ARTERIAL (BEAKER) (test osrk=835) 49 mmHg 35-45 PO2 ARTERIAL (BEAKER) (test rumm=155) 102 mmHg 80-90 O2 SATURATION ARTERIAL (BEAKER) (test ophp=320) 97.5 % 96.0-97.0 HCO3 ARTERIAL (BEAKER) (test nxwt=036) 28 mmol/L 21-29 BASE EXCESS ARTERIAL (BEAKER) (test yalz=746) 2.5 mmol/L -2.0-3.0 PATIENT TEMPERATURE (BEAKER) (test deso=3845) 37.1 C FIO2 (BEAKER) (test jxmg=2818) 40.0 % 30 minutes s/p bipap [id number] 20:29:00 Test Item Value Reference Range Comments POTASSIUM (BEAKER) (test xeto=167) 4.6 meq/L 3.5-5.1 Check Serum Potassium level 2 hours after oral potassium replacement completed or 30 min after intravenous potassium replacement.BLOOD GAS, [id number] 20:06:00 Test Item Value Reference Range Comments PH ARTERIAL (BEAKER) (test ggik=523) 7.28 7.35-7.45 PCO2 ARTERIAL (BEAKER) (test sbvi=167) 67 mmHg 35-45 PO2 ARTERIAL (BEAKER) (test qeph=448) 80 mmHg 80-90 O2 SATURATION ARTERIAL (BEAKER) (test ktaq=192) 94.0 % 96.0-97.0 HCO3 ARTERIAL (BEAKER) (test qyhg=863) 31 mmol/L 21-29 BASE EXCESS ARTERIAL (BEAKER) (test jubq=584) 2.8 mmol/L -2.0-3.0 PATIENT TEMPERATURE (BEAKER) (test oapv=3135) 37.0 C FIO2 (BEAKER) (test qfvv=1783) 36.0 % POTASSIUM-STAT [id number] 17:23:00 Test Item Value Reference Range Comments POTASSIUM (BEAKER) (test cczy=152) 4.2 meq/L 3.6-5.5 GLUCOSE-STAT [id number] 17:23:00 Test Item Value Reference Range Comments GLUCOSE RANDOM (BEAKER) (test mapj=678) 133 mg/dL 70-110 BLOOD GAS, [id number] 17:23:00 Test Item Value Reference Range Comments PH ARTERIAL (BEAKER) (test ptta=353) 7.44 7.35-7.45 PCO2 ARTERIAL (BEAKER) (test qfhh=407) 42 mmHg 35-45 PO2 ARTERIAL (BEAKER) (test fwwp=704) 107 mmHg 80-90 O2 SATURATION ARTERIAL (BEAKER) (test cizg=991) 98.1 % 96.0-97.0 HCO3 ARTERIAL (BEAKER) (test hoxz=909) 28 mmol/L 21-29 BASE EXCESS ARTERIAL (BEAKER) (test ekvg=632) 3.3 mmol/L -2.0-3.0 PATIENT TEMPERATURE (BEAKER) (test cedm=4472) 36.4 C FIO2 (BEAKER) (test sqeh=0761) 40.0 % CBC W/PLT COUNT & AUTO [id number] 14:50:00 Test Item Value Reference Range Comments WHITE BLOOD CELL COUNT (BEAKER) (test yfyq=477) 31.6 K/ L 4.0-10.0 RED BLOOD CELL COUNT (BEAKER) (test fipw=564) 3.12 M/ L 4.20-5.80 HEMOGLOBIN (BEAKER) (test bdpw=181) 10.6 GM/DL 13.0-16.8 HEMATOCRIT (BEAKER) (test cfpt=308) 30.0 % 40.0-50.0 MEAN CORPUSCULAR VOLUME (BEAKER) (test eocf=712) 96.3 fL 82.0-98.0 MEAN CORPUSCULAR HEMOGLOBIN (BEAKER) (test 33.9 pg 27.0-33.0 jlsy=136) MEAN CORPUSCULAR HEMOGLOBIN CONC (BEAKER) (test 35.2 GM/DL 32.0-36.0 zmpb=908) RED CELL DISTRIBUTION WIDTH (BEAKER) (test 14.6 % 10.3-14.2 kdet=085) PLATELET COUNT (BEAKER) (test lpfg=883) 124 K/CU MM 150-430 MEAN PLATELET VOLUME (BEAKER) (test bwir=770) 7.8 fL 6.5-10.5 NUCLEATED RED BLOOD CELLS (BEAKER) (test 0 /100 WBC 0-0 kcie=133) 0.000.550.000.000.680.000.000.000.00(MANUAL DIFFERENTIAL)2016-09-23 14:50:00 Test Item Value Reference Range Comments NEUTROPHILS - REL (DIFF) (BEAKER) (test 86 % wmxa=0962) LYMPHOCYTES - REL (DIFF) (BEAKER) (test 1 % oess=9213) MONOCYTES - REL (DIFF) (BEAKER) (test iill=0248) 1 % BANDS - REL (DIFF) (BEAKER) (test ojjs=0954) 11 % 0-10 ATYPICAL LYMPHOCYTE - REL (DIFF) (BEAKER) (test 1 % 0-0 dwss=684) NEUTROPHILS - ABS (DIFF) (BEAKER) (test 27.18 K/ L 1.80-8.00 ghpr=2706) LYMPHOCYTES - ABS (DIFF) (BEAKER) (test 0.32 K/ L 1.48-4.50 nfod=7889) MONOCYTES - ABS (DIFF) (BEAKER) (test cuxr=1159) 0.32 K/ L 0.00-1.30 BANDS-ABS (DIFF) (BEAKER) (test vpur=1290) 3.5 K/ L 0.0-0.8 ATYPICAL LYMPHOCYTES - ABS (DIFF) (BEAKER) (test 0.32 K/ L 0.00-0.00 xdkh=173) TOTAL COUNTED (BEAKER) (test ztrj=8248) 100 BANDS + SEGMENTED NEUTROPHILS (BEAKER) (test 30.65 necf=4539) WBC MORPHOLOGY (BEAKER) (test uqwb=131) Normal PLT MORPHOLOGY (BEAKER) (test lzsx=928) Normal RBC MORPHOLOGY (BEAKER) (test npiw=787) Normal [id number] 13:33:00 Test Item Value Reference Range Comments FIBRINOGEN LEVEL (BEAKER) (test qzjc=583) 204 mg/dl 225-434 [id number] 13:33:00 Test Item Value Reference Range Comments PARTIAL THROMBOPLASTIN TIME (BEAKER) (test 37.7 seconds 22.5-36.0 swva=275) PROTHROMBIN [id number] 13:32:00 Test Item Value Reference Range Comments PROTIME (BEAKER) (test xphy=725) 20.5 seconds 11.7-14.7 INR (BEAKER) (test rdjj=440) 1.8 <=5.9 RECOMMENDED COUMADIN/WARFARIN INR THERAPY RANGESSTANDARD DOSE: 2.0 - 3.0 Includes: PROPHYLAXIS forvenous thrombosis, systemic embolization; TREATMENT for venous thrombosis and/or pulmonary embolus.HIGH RISK: Target INR is 2.5-3.5 for patients with mechanical heart valves.CALCIUM, [id number] 13:15:00 Test Item Value Reference Range Comments CALCIUM IONIZED (BEAKER) (test vckl=060) 1.32 mmol/L 1.12-1.27 PH, BLOOD (BEAKER) (test xfiw=8681) 7.42 [id number] 13:13:00 Test Item Value Reference Range Comments MAGNESIUM (BEAKER) (test hrpk=596) 2.7 mg/dL 1.6-2.6 LACTIC ACID, ARTERIAL, WHOLE [id number] 13:12:00 Test Item Value Reference Range Comments LACTATE BLOOD ARTERIAL (2) (BEAKER) (test 1.7 mmol/L 0.5-2.2 hayq=8795) Effective 10/24/2015: Units/Reference Range ChangeNew: 0.5-2.2 mmol/L Previous: 5 -20 mg/dLBLOOD GAS, [id number] 13:08:00 Test Item Value Reference Range Comments PH ARTERIAL (BEAKER) (test gqnl=647) 7.45 7.35-7.45 PCO2 ARTERIAL (BEAKER) (test gaiv=284) 42 mmHg 35-45 PO2 ARTERIAL (BEAKER) (test tdwr=803) 97 mmHg 80-90 O2 SATURATION ARTERIAL (BEAKER) (test gwgf=558) 98.0 % 96.0-97.0 HCO3 ARTERIAL (BEAKER) (test kgek=519) 29 mmol/L 21-29 BASE EXCESS ARTERIAL (BEAKER) (test yxou=326) 3.6 mmol/L -2.0-3.0 PATIENT TEMPERATURE (BEAKER) (test rsba=4736) 34.9 C FIO2 (BEAKER) (test kavd=9355) 60.0 % SODIUM NA-STAT [id number] 13:08:00 Test Item Value Reference Range Comments SODIUM (BEAKER) (test udyu=030) 133 meq/L 135-148 POTASSIUM-STAT [id number] 13:08:00 Test Item Value Reference Range Comments POTASSIUM (BEAKER) (test wbvi=359) 3.1 meq/L 3.6-5.5 GLUCOSE-STAT [id number] 13:08:00 Test Item Value Reference Range Comments GLUCOSE RANDOM (BEAKER) (test asif=067) 139 mg/dL 70-110 OXYGEN SATURATION, [id number] 13:05:00 Test Item Value Reference Range Comments O2 SATURATION (MEASURED) (BEAKER) (test kwur=7299) 76.5 % [id number] 12:00:00 Test Item Value Reference Range Comments FIBRINOGEN LEVEL (BEAKER) (test jkul=262) 118 mg/dl 225-434 PLATELET [id number] 11:59:00 Test Item Value Reference Range Comments PLATELET COUNT (BEAKER) (test vcvb=506) 129 K/CU MM 150-430 [id number] 11:55:00 Test Item Value Reference Range Comments PARTIAL THROMBOPLASTIN TIME (BEAKER) (test 47.7 seconds 22.5-36.0 cgwi=293) CALCIUM, [id number] 11:54:00 Test Item Value Reference Range Comments CALCIUM IONIZED (BEAKER) (test rkum=517) 1.13 mmol/L 1.12-1.27 PH, BLOOD (BEAKER) (test fjwz=4059) 7.44 PROTHROMBIN [id number] 11:54:00 Test Item Value Reference Range Comments PROTIME (BEAKER) (test sdvq=890) 26.0 seconds 11.7-14.7 INR (BEAKER) (test dczw=638) 2.4 <=5.9 RECOMMENDED COUMADIN/WARFARIN INR THERAPY RANGESSTANDARD DOSE: 2.0 - 3.0 Includes: PROPHYLAXIS forvenous thrombosis, systemic embolization; TREATMENT for venous thrombosis and/or pulmonary embolus.HIGH RISK: Target INR is 2.5-3.5 for patients with mechanical heart valves.BLOOD GAS, [id number] 11:53:00 Test Item Value Reference Range Comments PH ARTERIAL (BEAKER) (test jlox=362) 7.45 7.35-7.45 PCO2 ARTERIAL (BEAKER) (test daqn=945) 40 mmHg 35-45 PO2 ARTERIAL (BEAKER) (test ugir=074) 263 mmHg 80-90 O2 SATURATION ARTERIAL (BEAKER) (test ojnf=178) 99.6 % 96.0-97.0 HCO3 ARTERIAL (BEAKER) (test fdkx=232) 28 mmol/L 21-29 BASE EXCESS ARTERIAL (BEAKER) (test rsop=315) 3.2 mmol/L -2.0-3.0 PATIENT TEMPERATURE (BEAKER) (test gobk=2177) 36.0 C FIO2 (BEAKER) (test jwoi=9763) 100.0 % GLUCOSE-STAT [id number] 11:53:00 Test Item Value Reference Range Comments GLUCOSE RANDOM (BEAKER) (test wati=742) 158 mg/dL 70-110 POTASSIUM-STAT [id number] 11:53:00 Test Item Value Reference Range Comments POTASSIUM (BEAKER) (test rwwj=064) 3.0 meq/L 3.6-5.5 HGB/HCT (H&H) - STAT [id number] 11:53:00 Test Item Value Reference Range Comments HEMOGLOBIN (BEAKER) (test rqqp=079) 8.6 g/dL 13.0-16.8 HEMATOCRIT (BEAKER) (test roon=218) 25.0 % 40.0-50.0 SODIUM NA-STAT [id number] 11:52:00 Test Item Value Reference Range Comments SODIUM (BEAKER) (test yzbs=195) 135 meq/L 135-148 BLOOD GAS, [id number] 11:26:00 Test Item Value Reference Range Comments PH ARTERIAL (BEAKER) (test kjas=236) 7.37 7.35-7.45 PCO2 ARTERIAL (BEAKER) (test ccvp=003) 48 mmHg 35-45 PO2 ARTERIAL (BEAKER) (test ypyy=582) 76 mmHg 80-90 O2 SATURATION ARTERIAL (BEAKER) (test evqm=548) 95.5 % 96.0-97.0 HCO3 ARTERIAL (BEAKER) (test mduo=187) 27 mmol/L 21-29 BASE EXCESS ARTERIAL (BEAKER) (test xegi=044) 0.9 mmol/L -2.0-3.0 PATIENT TEMPERATURE (BEAKER) (test hmru=3593) 35.6 C FIO2 (BEAKER) (test kzwj=6861) 100.0 % SODIUM NA-STAT [id number] 11:26:00 Test Item Value Reference Range Comments SODIUM (BEAKER) (test zrgx=449) 133 meq/L 135-148 POTASSIUM-STAT [id number] 11:26:00 Test Item Value Reference Range Comments POTASSIUM (BEAKER) (test yozb=654) 3.1 meq/L 3.6-5.5 GLUCOSE-STAT [id number] 11:26:00 Test Item Value Reference Range Comments GLUCOSE RANDOM (BEAKER) (test gxxo=557) 158 mg/dL 70-110 HGB/HCT (H&H) - STAT [id number] 11:26:00 Test Item Value Reference Range Comments HEMOGLOBIN (BEAKER) (test robn=936) 8.3 g/dL 13.0-16.8 HEMATOCRIT (BEAKER) (test bmiq=294) 24.0 % 40.0-50.0 CALCIUM, [id number] 11:26:00 Test Item Value Reference Range Comments CALCIUM IONIZED (BEAKER) (test lycb=063) 0.86 mmol/L 1.12-1.27 PH, BLOOD (BEAKER) (test avbl=1962) 7.35 [id number] 11:01:00 Test Item Value Reference Range Comments FIBRINOGEN LEVEL (BEAKER) (test pzrv=018) 99 mg/dl 225-434 PROTHROMBIN [id number] 10:50:00 Test Item Value Reference Range Comments PROTIME (BEAKER) (test xtmg=105) 46.0 seconds 11.7-14.7 INR (BEAKER) (test jiun=801) 4.9 <=5.9 RECOMMENDED COUMADIN/WARFARIN INR THERAPY RANGESSTANDARD DOSE: 2.0 - 3.0 Includes: PROPHYLAXIS forvenous thrombosis, systemic embolization; TREATMENT for venous thrombosis and/or pulmonary embolus.HIGH RISK: Target INR is 2.5-3.5 for patients with mechanical heart valves.PLATELET [id number] 10:47:00 Test Item Value Reference Range Comments PLATELET COUNT (BEAKER) (test ytfu=053) 104 K/CU MM 150-430 BLOOD GAS, [id number] 10:30:00 Test Item Value Reference Range Comments PH ARTERIAL (BEAKER) (test qomv=761) 7.53 7.35-7.45 PCO2 ARTERIAL (BEAKER) (test fxgp=563) 37 mmHg 35-45 PO2 ARTERIAL (BEAKER) (test aepj=422) 256 mmHg 80-90 O2 SATURATION ARTERIAL (BEAKER) (test linc=124) 99.7 % 96.0-97.0 HCO3 ARTERIAL (BEAKER) (test eqsi=759) 31 mmol/L 21-29 BASE EXCESS ARTERIAL (BEAKER) (test tovw=428) 7.0 mmol/L -2.0-3.0 PATIENT TEMPERATURE (BEAKER) (test kozw=7636) 33.4 C FIO2 (BEAKER) (test kdrn=0115) 65.0 % SODIUM NA-STAT [id number] 10:30:00 Test Item Value Reference Range Comments SODIUM (BEAKER) (test akub=761) 131 meq/L 135-148 POTASSIUM-STAT [id number] 10:30:00 Test Item Value Reference Range Comments POTASSIUM (BEAKER) (test onem=095) 3.3 meq/L 3.6-5.5 GLUCOSE-STAT [id number] 10:30:00 Test Item Value Reference Range Comments GLUCOSE RANDOM (BEAKER) (test ipqb=717) 122 mg/dL 70-110 HGB/HCT (H&H) - STAT [id number] 10:30:00 Test Item Value Reference Range Comments HEMOGLOBIN (BEAKER) (test ttrx=984) 9.8 g/dL 13.0-16.8 HEMATOCRIT (BEAKER) (test jefz=306) 29.0 % 40.0-50.0 GLUCOSE-STAT [id number] 09:54:00 Test Item Value Reference Range Comments GLUCOSE RANDOM (BEAKER) (test plxf=354) 114 mg/dL 70-110 SODIUM NA-STAT [id number] 09:54:00 Test Item Value Reference Range Comments SODIUM (BEAKER) (test vuqh=208) 134 meq/L 135-148 POTASSIUM-STAT [id number] 09:54:00 Test Item Value Reference Range Comments POTASSIUM (BEAKER) (test jhbw=189) 3.2 meq/L 3.6-5.5 HGB/HCT (H&H) - STAT [id number] 09:54:00 Test Item Value Reference Range Comments HEMOGLOBIN (BEAKER) (test qboz=115) 10.2 g/dL 13.0-16.8 HEMATOCRIT (BEAKER) (test bhhb=492) 30.0 % 40.0-50.0 BLOOD GAS, [id number] 09:53:00 Test Item Value Reference Range Comments PH ARTERIAL (BEAKER) (test ghoh=278) 7.58 7.35-7.45 PCO2 ARTERIAL (BEAKER) (test rlwm=042) 32 mmHg 35-45 PO2 ARTERIAL (BEAKER) (test ktpv=263) 306 mmHg 80-90 O2 SATURATION ARTERIAL (BEAKER) (test qffl=837) 99.8 % 96.0-97.0 HCO3 ARTERIAL (BEAKER) (test inmq=003) 30 mmol/L 21-29 BASE EXCESS ARTERIAL (BEAKER) (test oztw=556) 6.7 mmol/L -2.0-3.0 PATIENT TEMPERATURE (BEAKER) (test dxnm=3356) 33.4 C FIO2 (BEAKER) (test ehww=7172) 70.0 % BLOOD GAS, [id number] 09:35:00 Test Item Value Reference Range Comments PH ARTERIAL (BEAKER) (test thst=365) 7.62 7.35-7.45 PCO2 ARTERIAL (BEAKER) (test judk=969) 28 mmHg 35-45 PO2 ARTERIAL (BEAKER) (test vlim=931) 345 mmHg 80-90 O2 SATURATION ARTERIAL (BEAKER) (test ngod=915) 99.8 % 96.0-97.0 HCO3 ARTERIAL (BEAKER) (test osuv=957) 29 mmol/L 21-29 BASE EXCESS ARTERIAL (BEAKER) (test vlbt=439) 6.6 mmol/L -2.0-3.0 PATIENT TEMPERATURE (BEAKER) (test dcbm=8145) 34.5 C FIO2 (BEAKER) (test rvnj=0518) 80.0 % POTASSIUM-STAT [id number] 09:33:00 Test Item Value Reference Range Comments POTASSIUM (BEAKER) (test uvwn=309) 3.2 meq/L 3.6-5.5 SODIUM NA-STAT [id number] 09:33:00 Test Item Value Reference Range Comments SODIUM (BEAKER) (test unod=066) 131 meq/L 135-148 HGB/HCT (H&H) - STAT [id number] 09:33:00 Test Item Value Reference Range Comments HEMOGLOBIN (BEAKER) (test ukdn=597) 9.2 g/dL 13.0-16.8 HEMATOCRIT (BEAKER) (test fogb=362) 27.0 % 40.0-50.0 GLUCOSE-STAT [id number] 09:32:00 Test Item Value Reference Range Comments GLUCOSE RANDOM (BEAKER) (test mkwe=590) 92 mg/dL 70-110 CALCIUM, [id number] 08:33:00 Test Item Value Reference Range Comments CALCIUM IONIZED (BEAKER) (test zuoe=746) 1.03 mmol/L 1.12-1.27 PH, BLOOD (BEAKER) (test psxq=6074) 7.54 GLUCOSE-STAT [id number] 08:32:00 Test Item Value Reference Range Comments GLUCOSE RANDOM (BEAKER) (test zwiq=383) 81 mg/dL 70-110 BLOOD GAS, [id number] 08:32:00 Test Item Value Reference Range Comments PH ARTERIAL (BEAKER) (test rusa=507) 7.54 7.35-7.45 PCO2 ARTERIAL (BEAKER) (test ujwk=716) 39 mmHg 35-45 PO2 ARTERIAL (BEAKER) (test xclr=853) 113 mmHg 80-90 O2 SATURATION ARTERIAL (BEAKER) (test pojh=320) 98.6 % 96.0-97.0 HCO3 ARTERIAL (BEAKER) (test nvkn=564) 33 mmol/L 21-29 BASE EXCESS ARTERIAL (BEAKER) (test gkvc=291) 9.5 mmol/L -2.0-3.0 PATIENT TEMPERATURE (BEAKER) (test qbec=0749) 37.0 C FIO2 (BEAKER) (test bgcg=5927) 28.0 % SODIUM NA-STAT [id number] 08:32:00 Test Item Value Reference Range Comments SODIUM (BEAKER) (test abwp=506) 133 meq/L 135-148 POTASSIUM-STAT [id number] 08:32:00 Test Item Value Reference Range Comments POTASSIUM (BEAKER) (test hpri=707) 2.9 meq/L 3.6-5.5 HGB/HCT (H&H) - STAT [id number] 08:32:00 Test Item Value Reference Range Comments HEMOGLOBIN (BEAKER) (test lrqq=619) 10.8 g/dL 13.0-16.8 HEMATOCRIT (BEAKER) (test xypk=069) 32.0 % 40.0-50.0 POCT-GLUCOSE [id number] 06:20:00 Test Item Value Reference Range Comments POC-GLUCOSE METER (BEAKER) 107 mg/dL 70-110 TESTED AT [facility] [address] [facility] (test ufru=7367) [facility] [address] BASIC METABOLIC [id number] 05:13:00 Test Item Value Reference Range Comments SODIUM (BEAKER) (test 134 meq/L 136-145 avgh=030) POTASSIUM (BEAKER) (test 3.7 meq/L 3.5-5.1 erpb=200) CHLORIDE (BEAKER) (test 95 meq/L 98-107 jwrb=866) CO2 (BEAKER) (test 30 meq/L 22-29 peil=696) BLOOD UREA NITROGEN 45 mg/dL 7-21 (BEAKER) (test fwrl=396) CREATININE (BEAKER) (test 0.90 mg/dL 0.57-1.25 ngjk=558) GLUCOSE RANDOM (BEAKER) 97 mg/dL 70-105 (test ucww=948) CALCIUM (BEAKER) (test 8.5 mg/dL 8.4-10.2 jghw=716) EGFR (BEAKER) (test mL/min/1.73 sq m INSUFFICIENT CLINICAL DATA jsoh=6912) TO CALCULATE ESTIMATED GFR. [id number] 05:12:00 Test Item Value Reference Range Comments FIBRINOGEN LEVEL (BEAKER) (test uqgg=615) 116 mg/dl 225-434 HEPATIC FUNCTION [id number] 05:12:00 Test Item Value Reference Range Comments TOTAL PROTEIN (BEAKER) (test vnob=573) 6.7 gm/dL 6.0-8.3 ALBUMIN (BEAKER) (test laln=5497) 3.6 g/dL 3.5-5.0 BILIRUBIN TOTAL (BEAKER) (test bghz=189) 1.5 mg/dL 0.2-1.2 BILIRUBIN DIRECT (BEAKER) (test lotv=079) 0.8 mg/dL 0.1-0.5 ALKALINE PHOSPHATASE (BEAKER) (test djxv=991) 85 U/L 40-150 AST (SGOT) (BEAKER) (test oici=192) 35 U/L 5-34 ALT (SGPT) (BEAKER) (test cbok=413) 28 U/L 6-55 [id number] 05:07:00 Test Item Value Reference Range Comments PARTIAL THROMBOPLASTIN TIME (BEAKER) (test 28.7 seconds 22.5-36.0 amly=263) PROTHROMBIN [id number] 05:06:00 Test Item Value Reference Range Comments PROTIME (BEAKER) (test fggi=472) 19.1 seconds 11.7-14.7 INR (BEAKER) (test bxgv=076) 1.6 <=5.9 RECOMMENDED COUMADIN/WARFARIN INR THERAPY RANGESSTANDARD DOSE: 2.0 - 3.0 Includes: PROPHYLAXIS forvenous thrombosis, systemic embolization; TREATMENT for venous thrombosis and/or pulmonary embolus.HIGH RISK: Target INR is 2.5-3.5 for patients with mechanical heart valves.CBC W/PLT COUNT & AUTO [id number] 04:52:00 Test Item Value Reference Range Comments WHITE BLOOD CELL COUNT (BEAKER) (test pydv=203) 9.7 K/ L 4.0-10.0 RED BLOOD CELL COUNT (BEAKER) (test qmby=713) 3.27 M/ L 4.20-5.80 HEMOGLOBIN (BEAKER) (test peuv=506) 10.4 GM/DL 13.0-16.8 HEMATOCRIT (BEAKER) (test vhdm=546) 31.5 % 40.0-50.0 MEAN CORPUSCULAR VOLUME (BEAKER) (test mivi=860) 96.3 fL 82.0-98.0 MEAN CORPUSCULAR HEMOGLOBIN (BEAKER) (test 31.7 pg 27.0-33.0 fzdg=679) MEAN CORPUSCULAR HEMOGLOBIN CONC (BEAKER) (test 32.9 GM/DL 32.0-36.0 tjiu=252) RED CELL DISTRIBUTION WIDTH (BEAKER) (test 15.0 % 10.3-14.2 xrth=780) PLATELET COUNT (BEAKER) (test zicr=718) 74 K/CU MM 150-430 MEAN PLATELET VOLUME (BEAKER) (test iuhh=197) 8.9 fL 6.5-10.5 NUCLEATED RED BLOOD CELLS (BEAKER) (test 0 /100 WBC 0-0 wpdx=296) NEUTROPHILS RELATIVE PERCENT (BEAKER) (test 87 % rrwv=321) LYMPHOCYTES RELATIVE PERCENT (BEAKER) (test 5 % mpge=178) MONOCYTES RELATIVE PERCENT (BEAKER) (test 8 % omep=775) EOSINOPHILS RELATIVE PERCENT (BEAKER) (test 0 % cihg=946) BASOPHILS RELATIVE PERCENT (BEAKER) (test 1 % hxsy=356) NEUTROPHILS ABSOLUTE COUNT (BEAKER) (test 8.37 K/ L 1.80-8.00 qyxp=393) LYMPHOCYTES ABSOLUTE COUNT (BEAKER) (test 0.44 K/ L 1.48-4.50 nppe=847) MONOCYTES ABSOLUTE COUNT (BEAKER) (test ieos=733) 0.73 K/ L 0.00-1.30 EOSINOPHILS ABSOLUTE COUNT (BEAKER) (test 0.01 K/ L 0.00-0.50 qgxo=403) BASOPHILS ABSOLUTE COUNT (BEAKER) (test bqyd=366) 0.11 K/ L 0.00-0.20 0.00POCT-GLUCOSE [id number] 21:29:00 Test Item Value Reference Range Comments POC-GLUCOSE METER (BEAKER) 202 mg/dL 70-110 TESTED AT [address] (test rnyn=1981) [place] [address] URINALYSIS W/ [id number] 19:29:00 Test Item Value Reference Range Comments COLOR (BEAKER) (test oqrd=498) Light Yellow CLARITY (BEAKER) (test lbgg=336) Clear SPECIFIC GRAVITY UA (BEAKER) (test vtel=551) 1.006 1.001-1.035 PH UA (BEAKER) (test lbqf=678) 6.5 5.0-8.0 PROTEIN UA (BEAKER) (test tvco=995) Negative Negative GLUCOSE UA (BEAKER) (test uagk=671) Negative Negative KETONES UA (BEAKER) (test xcll=677) Negative Negative BILIRUBIN UA (BEAKER) (test kycs=691) Negative Negative BLOOD UA (BEAKER) (test plor=247) Negative Negative NITRITE UA (BEAKER) (test kjpq=161) Negative Negative LEUKOCYTE ESTERASE UA (BEAKER) (test nhwl=021) Negative Negative UROBILINOGEN UA (BEAKER) (test qsey=762) 0.2 mg/dL 0.2-1.0 RBC UA (BEAKER) (test cqro=758) 0 /HPF WBC UA (BEAKER) (test chyj=797) < /HPF SOURCE(BEAKER) (test izlj=2978) Urine, Voided POCT-GLUCOSE [id number] 17:33:00 Test Item Value Reference Range Comments POC-GLUCOSE METER (BEAKER) 180 mg/dL 70-110 TESTED AT [address] (test jxer=5050) [place] [id number] BASIC METABOLIC [id number] 15:09:00 Test Item Value Reference Range Comments SODIUM (BEAKER) (test 137 meq/L 136-145 ykfu=252) POTASSIUM (BEAKER) (test 3.7 meq/L 3.5-5.1 Specimen slightly slrg=862) hemolyzed CHLORIDE (BEAKER) (test 93 meq/L 98-107 bvzg=659) CO2 (BEAKER) (test 34 meq/L 22-29 ccne=814) BLOOD UREA NITROGEN 45 mg/dL 7-21 (BEAKER) (test zxlo=598) CREATININE (BEAKER) (test 1.10 mg/dL 0.57-1.25 Specimen slightly xkac=631) hemolyzed GLUCOSE RANDOM (BEAKER) 109 mg/dL 70-105 (test klme=265) CALCIUM (BEAKER) (test 9.1 mg/dL 8.4-10.2 iivq=752) EGFR (BEAKER) (test mL/min/1.73 sq m INSUFFICIENT CLINICAL DATA kopi=9058) TO CALCULATE ESTIMATED GFR. [id number] 15:07:00 Test Item Value Reference Range Comments MAGNESIUM (BEAKER) (test 2.3 mg/dL 1.6-2.6 Specimen slightly hemolyzed xmvp=037) POCT-GLUCOSE [id number] 12:13:00 Test Item Value Reference Range Comments POC-GLUCOSE METER (BEAKER) 116 mg/dL 70-110 TESTED AT [facility] [address] [place] [address] (test okxn=1461) [facility] [address] BASIC METABOLIC [id number] 05:50:00 Test Item Value Reference Range Comments SODIUM (BEAKER) (test 134 meq/L 136-145 qgla=616) POTASSIUM (BEAKER) (test 3.8 meq/L 3.5-5.1 digu=137) CHLORIDE (BEAKER) (test 95 meq/L 98-107 lfcu=558) CO2 (BEAKER) (test 29 meq/L 22-29 kmvt=287) BLOOD UREA NITROGEN 48 mg/dL 7-21 (BEAKER) (test pciv=778) CREATININE (BEAKER) (test 1.02 mg/dL 0.57-1.25 reuz=945) GLUCOSE RANDOM (BEAKER) 99 mg/dL 70-105 (test nreg=307) CALCIUM (BEAKER) (test 8.4 mg/dL 8.4-10.2 cvgk=743) EGFR (BEAKER) (test mL/min/1.73 sq m INSUFFICIENT CLINICAL DATA fkna=3515) TO CALCULATE ESTIMATED GFR. LACTATE DEHYDROGENASE (LDH)2016-09-22 05:49:00 Test Item Value Reference Range Comments LACTATE DEHYDROGENASE (BEAKER) (test vcju=096) 220 U/L 125-220 HEPATIC FUNCTION [id number] 05:49:00 Test Item Value Reference Range Comments TOTAL PROTEIN (BEAKER) (test zqxu=690) 6.8 gm/dL 6.0-8.3 ALBUMIN (BEAKER) (test xgwq=8599) 3.7 g/dL 3.5-5.0 BILIRUBIN TOTAL (BEAKER) (test kiuw=093) 1.3 mg/dL 0.2-1.2 BILIRUBIN DIRECT (BEAKER) (test nogq=656) 0.7 mg/dL 0.1-0.5 ALKALINE PHOSPHATASE (BEAKER) (test xnvr=281) 83 U/L 40-150 AST (SGOT) (BEAKER) (test ldtj=073) 30 U/L 5-34 ALT (SGPT) (BEAKER) (test niih=784) 25 U/L 6-55 [id number] 05:32:00 Test Item Value Reference Range Comments D-DIMER QUANTITATIVE (BEAKER) (test febx=164) 5.86 MG/L FEU <0.50 Intended Use: The D-Dimer Assay can be used to aid in the diagnosis of Deep Vein Thrombosis (DVT) and Pulmonary Embolism Disease (PED).In patients with low pre-test probability, various studies concerning STA Liatest D-dimer test have reported that with a cutoff value of 0.50 MG/L FEU, the Negative Predictive Value (NPV) regarding the exclusion of thrombosis is within 95-100% range.[id number] 05:27:00 Test Item Value Reference Range Comments FIBRINOGEN LEVEL (BEAKER) (test rmln=203) 117 mg/dl 225-434 CBC W/PLT COUNT & AUTO [id number] 05:23:00 Test Item Value Reference Range Comments WHITE BLOOD CELL COUNT (BEAKER) (test kvrt=305) 8.9 K/ L 4.0-10.0 RED BLOOD CELL COUNT (BEAKER) (test oujb=779) 3.34 M/ L 4.20-5.80 HEMOGLOBIN (BEAKER) (test hxzi=089) 10.7 GM/DL 13.0-16.8 HEMATOCRIT (BEAKER) (test sger=461) 32.1 % 40.0-50.0 MEAN CORPUSCULAR VOLUME (BEAKER) (test olxz=808) 96.2 fL 82.0-98.0 MEAN CORPUSCULAR HEMOGLOBIN (BEAKER) (test 32.0 pg 27.0-33.0 avvk=897) MEAN CORPUSCULAR HEMOGLOBIN CONC (BEAKER) (test 33.3 GM/DL 32.0-36.0 zurx=577) RED CELL DISTRIBUTION WIDTH (BEAKER) (test 15.1 % 10.3-14.2 rhku=996) PLATELET COUNT (BEAKER) (test srcn=749) 85 K/CU MM 150-430 MEAN PLATELET VOLUME (BEAKER) (test etym=132) 8.4 fL 6.5-10.5 NUCLEATED RED BLOOD CELLS (BEAKER) (test 0 /100 WBC 0-0 bcnz=636) NEUTROPHILS RELATIVE PERCENT (BEAKER) (test 86 % tufn=791) LYMPHOCYTES RELATIVE PERCENT (BEAKER) (test 5 % njjv=605) MONOCYTES RELATIVE PERCENT (BEAKER) (test 8 % rzej=965) EOSINOPHILS RELATIVE PERCENT (BEAKER) (test 0 % ylfo=222) BASOPHILS RELATIVE PERCENT (BEAKER) (test 1 % hjst=901) NEUTROPHILS ABSOLUTE COUNT (BEAKER) (test 7.64 K/ L 1.80-8.00 zxlb=074) LYMPHOCYTES ABSOLUTE COUNT (BEAKER) (test 0.45 K/ L 1.48-4.50 jxfa=248) MONOCYTES ABSOLUTE COUNT (BEAKER) (test opny=321) 0.70 K/ L 0.00-1.30 EOSINOPHILS ABSOLUTE COUNT (BEAKER) (test 0.01 K/ L 0.00-0.50 nssr=052) BASOPHILS ABSOLUTE COUNT (BEAKER) (test kjja=253) 0.05 K/ L 0.00-0.20 0.00PT/[id number] 05:22:00 Test Item Value Reference Range Comments PROTIME (BEAKER) (test ddyw=600) 18.9 seconds 11.7-14.7 INR (BEAKER) (test hckb=669) 1.6 <=5.9 PARTIAL THROMBOPLASTIN TIME (BEAKER) (test 29.2 seconds 22.5-36.0 zufc=829) RECOMMENDED COUMADIN/WARFARIN INR THERAPY RANGESSTANDARD DOSE: 2.0 - 3.0 Includes: PROPHYLAXIS forvenous thrombosis, systemic embolization; TREATMENT for venous thrombosis and/or pulmonary embolus.HIGH RISK: Target INR is 2.5-3.5 for patients with mechanical heart valves.THROMBIN [id number] 05:22:00 Test Item Value Reference Range Comments THROMBIN TIME (BEAKER) (test yfam=698) 18.6 secs 13.8-20.0 PROTHROMBIN [id number] 05:21:00 Test Item Value Reference Range Comments PROTIME (BEAKER) (test ekow=913) 18.9 seconds 11.7-14.7 INR (BEAKER) (test diyu=602) 1.6 <=5.9 RECOMMENDED COUMADIN/WARFARIN INR THERAPY RANGESSTANDARD DOSE: 2.0 - 3.0 Includes: PROPHYLAXIS forvenous thrombosis, systemic embolization; TREATMENT for venous thrombosis and/or pulmonary embolus.HIGH RISK: Target INR is 2.5-3.5 for patients with mechanical heart valves.POCT-GLUCOSE [id number] 05:20:00 Test Item Value Reference Range Comments POC-GLUCOSE METER (BEAKER) 97 mg/dL 70-110 TESTED AT [address] (test ekgx=8168) [place] [address] POCT-GLUCOSE [id number] 21:11:00 Test Item Value Reference Range Comments POC-GLUCOSE METER (BEAKER) 180 mg/dL 70-110 TESTED AT [address] (test xipa=9571) [place] [address] POCT-GLUCOSE [id number] 17:58:00 Test Item Value Reference Range Comments POC-GLUCOSE METER (BEAKER) 121 mg/dL 70-110 TESTED AT [address] (test hben=9922) [place] [address] POCT-GLUCOSE [id number] 13:45:00 Test Item Value Reference Range Comments POC-GLUCOSE METER (BEAKER) 111 mg/dL 70-110 TESTED AT [address] (test pijr=8435) [place] [address] BASIC METABOLIC [id number] 05:37:00 Test Item Value Reference Range Comments SODIUM (BEAKER) (test 137 meq/L 136-145 rygd=158) POTASSIUM (BEAKER) (test 3.7 meq/L 3.5-5.1 watg=924) CHLORIDE (BEAKER) (test 97 meq/L 98-107 uuao=310) CO2 (BEAKER) (test 31 meq/L 22-29 izri=340) BLOOD UREA NITROGEN 49 mg/dL 7-21 (BEAKER) (test nloa=016) CREATININE (BEAKER) (test 0.92 mg/dL 0.57-1.25 xkdp=321) GLUCOSE RANDOM (BEAKER) 105 mg/dL 70-105 (test duqr=133) CALCIUM (BEAKER) (test 8.4 mg/dL 8.4-10.2 bgdu=505) EGFR (BEAKER) (test mL/min/1.73 sq m INSUFFICIENT CLINICAL DATA qdhd=5913) TO CALCULATE ESTIMATED GFR. BUN AND [id number] 05:37:00 Test Item Value Reference Range Comments BLOOD UREA NITROGEN 49 mg/dL 7-21 (BEAKER) (test rbiz=893) CREATININE (BEAKER) (test 0.92 mg/dL 0.57-1.25 fxmo=692) EGFR (BEAKER) (test mL/min/1.73 sq m INSUFFICIENT CLINICAL DATA fjnr=8228) TO CALCULATE ESTIMATED GFR. [id number] 05:28:00 Test Item Value Reference Range Comments MAGNESIUM (BEAKER) (test xdqf=169) 2.2 mg/dL 1.6-2.6 HEPATIC FUNCTION [id number] 05:28:00 Test Item Value Reference Range Comments TOTAL PROTEIN (BEAKER) (test tgvf=418) 6.6 gm/dL 6.0-8.3 ALBUMIN (BEAKER) (test hbqp=6528) 3.5 g/dL 3.5-5.0 BILIRUBIN TOTAL (BEAKER) (test dsed=424) 1.3 mg/dL 0.2-1.2 BILIRUBIN DIRECT (BEAKER) (test uqxz=155) 0.7 mg/dL 0.1-0.5 ALKALINE PHOSPHATASE (BEAKER) (test scbt=511) 82 U/L 40-150 AST (SGOT) (BEAKER) (test mfcf=120) 30 U/L 5-34 ALT (SGPT) (BEAKER) (test dfwz=270) 22 U/L 6-55 CBC W/PLT COUNT & AUTO [id number] 05:19:00 Test Item Value Reference Range Comments WHITE BLOOD CELL COUNT (BEAKER) (test fcqp=126) 7.8 K/ L 4.0-10.0 RED BLOOD CELL COUNT (BEAKER) (test bufm=487) 3.35 M/ L 4.20-5.80 HEMOGLOBIN (BEAKER) (test feme=241) 10.5 GM/DL 13.0-16.8 HEMATOCRIT (BEAKER) (test yqoi=477) 32.3 % 40.0-50.0 MEAN CORPUSCULAR VOLUME (BEAKER) (test xhws=501) 96.6 fL 82.0-98.0 MEAN CORPUSCULAR HEMOGLOBIN (BEAKER) (test 31.4 pg 27.0-33.0 mgqq=498) MEAN CORPUSCULAR HEMOGLOBIN CONC (BEAKER) (test 32.6 GM/DL 32.0-36.0 savo=179) RED CELL DISTRIBUTION WIDTH (BEAKER) (test 14.2 % 10.3-14.2 vwgf=363) PLATELET COUNT (BEAKER) (test naqe=618) 70 K/CU MM 150-430 MEAN PLATELET VOLUME (BEAKER) (test haui=109) 9.0 fL 6.5-10.5 NUCLEATED RED BLOOD CELLS (BEAKER) (test 0 /100 WBC 0-0 akmh=460) NEUTROPHILS RELATIVE PERCENT (BEAKER) (test 85 % jffn=574) LYMPHOCYTES RELATIVE PERCENT (BEAKER) (test 6 % jrcg=420) MONOCYTES RELATIVE PERCENT (BEAKER) (test 9 % gvww=229) EOSINOPHILS RELATIVE PERCENT (BEAKER) (test 0 % gijh=084) BASOPHILS RELATIVE PERCENT (BEAKER) (test 0 % gwud=680) NEUTROPHILS ABSOLUTE COUNT (BEAKER) (test 6.62 K/ L 1.80-8.00 gnwp=670) LYMPHOCYTES ABSOLUTE COUNT (BEAKER) (test 0.46 K/ L 1.48-4.50 gpdi=553) MONOCYTES ABSOLUTE COUNT (BEAKER) (test ctjk=866) 0.68 K/ L 0.00-1.30 EOSINOPHILS ABSOLUTE COUNT (BEAKER) (test 0.01 K/ L 0.00-0.50 bmdf=659) BASOPHILS ABSOLUTE COUNT (BEAKER) (test expu=127) 0.03 K/ L 0.00-0.20 [id number] 05:11:00 Test Item Value Reference Range Comments FIBRINOGEN LEVEL (BEAKER) (test wnmj=538) 111 mg/dl 225-434 PROTHROMBIN [id number] 05:05:00 Test Item Value Reference Range Comments PROTIME (BEAKER) (test sthj=980) 18.7 seconds 11.7-14.7 INR (BEAKER) (test bawf=703) 1.6 <=5.9 RECOMMENDED COUMADIN/WARFARIN INR THERAPY RANGESSTANDARD DOSE: 2.0 - 3.0 Includes: PROPHYLAXIS forvenous thrombosis, systemic embolization; TREATMENT for venous thrombosis and/or pulmonary embolus.HIGH RISK: Target INR is 2.5-3.5 for patients with mechanical heart valves.POCT-GLUCOSE [id number] 23:17:00 Test Item Value Reference Range Comments POC-GLUCOSE METER (BEAKER) 154 mg/dL 70-110 TESTED AT [address] (test dpew=2422) [place] [address] POCT-GLUCOSE [id number] 18:07:00 Test Item Value Reference Range Comments POC-GLUCOSE METER (BEAKER) 172 mg/dL 70-110 TESTED AT [address] (test tkjh=3324) [place] [id number] POCT-GLUCOSE [id number] 13:53:00 Test Item Value Reference Range Comments POC-GLUCOSE METER (BEAKER) 106 mg/dL 70-110 TESTED AT [address] (test sbwh=9080) [place] [id number] POCT-GLUCOSE [id number] 10:31:00 Test Item Value Reference Range Comments POC-GLUCOSE METER (BEAKER) 129 mg/dL 70-110 TESTED AT [address] (test rlhc=5788) [place] [id number] CBC W/PLT COUNT & AUTO [id number] 07:13:00 Test Item Value Reference Range Comments WHITE BLOOD CELL COUNT (BEAKER) (test fsht=725) 7.3 K/ L 4.0-10.0 RED BLOOD CELL COUNT (BEAKER) (test qhks=809) 3.32 M/ L 4.20-5.80 HEMOGLOBIN (BEAKER) (test kgzq=630) 10.8 GM/DL 13.0-16.8 HEMATOCRIT (BEAKER) (test ityr=375) 32.3 % 40.0-50.0 MEAN CORPUSCULAR VOLUME (BEAKER) (test tfrv=858) 97.4 fL 82.0-98.0 MEAN CORPUSCULAR HEMOGLOBIN (BEAKER) (test 32.5 pg 27.0-33.0 ezdh=916) MEAN CORPUSCULAR HEMOGLOBIN CONC (BEAKER) (test 33.4 GM/DL 32.0-36.0 xcrk=093) RED CELL DISTRIBUTION WIDTH (BEAKER) (test 14.7 % 10.3-14.2 eurf=317) PLATELET COUNT (BEAKER) (test amht=017) 72 K/CU MM 150-430 MEAN PLATELET VOLUME (BEAKER) (test qwjt=876) 9.2 fL 6.5-10.5 NUCLEATED RED BLOOD CELLS (BEAKER) (test 0 /100 WBC 0-0 rjsj=904) NEUTROPHILS RELATIVE PERCENT (BEAKER) (test 81 % ffol=908) LYMPHOCYTES RELATIVE PERCENT (BEAKER) (test 8 % xldd=054) MONOCYTES RELATIVE PERCENT (BEAKER) (test 11 % qmrc=790) EOSINOPHILS RELATIVE PERCENT (BEAKER) (test 0 % seaq=389) BASOPHILS RELATIVE PERCENT (BEAKER) (test 0 % cekb=799) NEUTROPHILS ABSOLUTE COUNT (BEAKER) (test 5.91 K/ L 1.80-8.00 vjwj=187) LYMPHOCYTES ABSOLUTE COUNT (BEAKER) (test 0.60 K/ L 1.48-4.50 egfz=133) MONOCYTES ABSOLUTE COUNT (BEAKER) (test wvnm=095) 0.77 K/ L 0.00-1.30 EOSINOPHILS ABSOLUTE COUNT (BEAKER) (test 0.03 K/ L 0.00-0.50 osda=785) BASOPHILS ABSOLUTE COUNT (BEAKER) (test rbgw=026) 0.02 K/ L 0.00-0.20 0.00BASI METABOLIC [id number] 07:10:00 Test Item Value Reference Range Comments SODIUM (BEAKER) (test 136 meq/L 136-145 djbu=607) POTASSIUM (BEAKER) (test 3.7 meq/L 3.5-5.1 rzhr=342) CHLORIDE (BEAKER) (test 96 meq/L 98-107 hlck=550) CO2 (BEAKER) (test 30 meq/L 22-29 evns=889) BLOOD UREA NITROGEN 52 mg/dL 7-21 (BEAKER) (test ghaw=889) CREATININE (BEAKER) (test 0.91 mg/dL 0.57-1.25 xcsx=065) GLUCOSE RANDOM (BEAKER) 94 mg/dL 70-105 (test tnpa=128) CALCIUM (BEAKER) (test 8.6 mg/dL 8.4-10.2 ojtw=060) EGFR (BEAKER) (test mL/min/1.73 sq m INSUFFICIENT CLINICAL DATA jqdx=2364) TO CALCULATE ESTIMATED GFR. HEPATIC FUNCTION [id number] 07:09:00 Test Item Value Reference Range Comments TOTAL PROTEIN (BEAKER) (test nidg=757) 6.8 gm/dL 6.0-8.3 ALBUMIN (BEAKER) (test uhfh=5073) 3.5 g/dL 3.5-5.0 BILIRUBIN TOTAL (BEAKER) (test tugt=285) 1.3 mg/dL 0.2-1.2 BILIRUBIN DIRECT (BEAKER) (test xlsd=483) 0.7 mg/dL 0.1-0.5 ALKALINE PHOSPHATASE (BEAKER) (test udlp=743) 84 U/L 40-150 AST (SGOT) (BEAKER) (test xxtu=150) 31 U/L 5-34 ALT (SGPT) (BEAKER) (test bqer=667) 23 U/L 6-55 [id number] 06:49:00 Test Item Value Reference Range Comments FIBRINOGEN LEVEL (BEAKER) (test essa=701) 108 mg/dl 225-434 PROTHROMBIN [id number] 06:43:00 Test Item Value Reference Range Comments PROTIME (BEAKER) (test qamu=420) 18.5 seconds 11.7-14.7 INR (BEAKER) (test bwgw=263) 1.5 <=5.9 RECOMMENDED COUMADIN/WARFARIN INR THERAPY RANGESSTANDARD DOSE: 2.0 - 3.0 Includes: PROPHYLAXIS forvenous thrombosis, systemic embolization; TREATMENT for venous thrombosis and/or pulmonary embolus.HIGH RISK: Target INR is 2.5-3.5 for patients with mechanical heart valves.POCT-GLUCOSE [id number] 22:20:00 Test Item Value Reference Range Comments POC-GLUCOSE METER (BEAKER) 188 mg/dL 70-110 TESTED AT [facility] [address] [facility] (test vzar=2888) [facility] [address] POCT-GLUCOSE [id number] 17:20:00 Test Item Value Reference Range Comments POC-GLUCOSE METER (BEAKER) 182 mg/dL 70-110 TESTED AT [place] [id number] [facility] (test brkq=4324) [facility] [address] CBC W/PLT COUNT & AUTO [id number] 14:51:00 Test Item Value Reference Range Comments WHITE BLOOD CELL COUNT (BEAKER) (test uctv=938) 7.6 K/ L 4.0-10.0 RED BLOOD CELL COUNT (BEAKER) (test zehr=599) 3.30 M/ L 4.20-5.80 HEMOGLOBIN (BEAKER) (test hmkq=233) 10.4 GM/DL 13.0-16.8 HEMATOCRIT (BEAKER) (test tadm=107) 31.9 % 40.0-50.0 MEAN CORPUSCULAR VOLUME (BEAKER) (test oocc=987) 96.9 fL 82.0-98.0 MEAN CORPUSCULAR HEMOGLOBIN (BEAKER) (test 31.5 pg 27.0-33.0 bofh=616) MEAN CORPUSCULAR HEMOGLOBIN CONC (BEAKER) (test 32.5 GM/DL 32.0-36.0 gvmt=340) RED CELL DISTRIBUTION WIDTH (BEAKER) (test 13.9 % 10.3-14.2 gobj=516) PLATELET COUNT (BEAKER) (test rlck=758) 56 K/CU MM 150-430 MEAN PLATELET VOLUME (BEAKER) (test htyk=137) 9.4 fL 6.5-10.5 NUCLEATED RED BLOOD CELLS (BEAKER) (test 0 /100 WBC 0-0 ipqv=054) NEUTROPHILS RELATIVE PERCENT (BEAKER) (test 83 % cikn=304) LYMPHOCYTES RELATIVE PERCENT (BEAKER) (test 7 % itcd=434) MONOCYTES RELATIVE PERCENT (BEAKER) (test 10 % lzmd=178) EOSINOPHILS RELATIVE PERCENT (BEAKER) (test 0 % fmbw=750) BASOPHILS RELATIVE PERCENT (BEAKER) (test 0 % keml=015) NEUTROPHILS ABSOLUTE COUNT (BEAKER) (test 6.31 K/ L 1.80-8.00 jjya=207) LYMPHOCYTES ABSOLUTE COUNT (BEAKER) (test 0.50 K/ L 1.48-4.50 cbyw=244) MONOCYTES ABSOLUTE COUNT (BEAKER) (test sfry=255) 0.77 K/ L 0.00-1.30 EOSINOPHILS ABSOLUTE COUNT (BEAKER) (test 0.01 K/ L 0.00-0.50 pvmr=443) BASOPHILS ABSOLUTE COUNT (BEAKER) (test agcy=177) 0.00 K/ L 0.00-0.20 0.00(MANUAL DIFFERENTIAL)2016-09-19 14:51:00 Test Item Value Reference Range Comments TOTAL COUNTED (BEAKER) (test znlq=0815) WBC MORPHOLOGY (BEAKER) (test buwa=310) Normal PLT MORPHOLOGY (BEAKER) (test bbhn=888) Normal RBC MORPHOLOGY (BEAKER) (test xami=563) Normal POCT-GLUCOSE [id number] 12:28:00 Test Item Value Reference Range Comments POC-GLUCOSE METER (BEAKER) 132 mg/dL 70-110 TESTED AT [address] (test ihtb=4111) [place] [id number] POCT-GLUCOSE [id number] 08:32:00 Test Item Value Reference Range Comments POC-GLUCOSE METER (BEAKER) 91 mg/dL 70-110 TESTED AT [address] (test sybt=5208) [place] [address] [id number] 07:04:00 Test Item Value Reference Range Comments FIBRINOGEN LEVEL (BEAKER) (test okwg=020) 113 mg/dl 225-434 BASIC METABOLIC [id number] 05:26:00 Test Item Value Reference Range Comments SODIUM (BEAKER) (test 137 meq/L 136-145 gsdq=150) POTASSIUM (BEAKER) (test 3.4 meq/L 3.5-5.1 qyou=223) CHLORIDE (BEAKER) (test 96 meq/L 98-107 wzum=979) CO2 (BEAKER) (test 31 meq/L 22-29 axpl=092) BLOOD UREA NITROGEN 54 mg/dL 7-21 (BEAKER) (test spjw=862) CREATININE (BEAKER) (test 0.98 mg/dL 0.57-1.25 uqod=411) GLUCOSE RANDOM (BEAKER) 105 mg/dL 70-105 (test xvwd=868) CALCIUM (BEAKER) (test 8.6 mg/dL 8.4-10.2 uqkh=760) EGFR (BEAKER) (test mL/min/1.73 sq m INSUFFICIENT CLINICAL DATA fyca=0056) TO CALCULATE ESTIMATED GFR. PROTHROMBIN [id number] 05:23:00 Test Item Value Reference Range Comments PROTIME (BEAKER) (test idvo=666) 19.5 seconds 11.7-14.7 INR (BEAKER) (test gdvi=325) 1.7 <=5.9 RECOMMENDED COUMADIN/WARFARIN INR THERAPY RANGESSTANDARD DOSE: 2.0 - 3.0 Includes: PROPHYLAXIS forvenous thrombosis, systemic embolization; TREATMENT for venous thrombosis and/or pulmonary embolus.HIGH RISK: Target INR is 2.5-3.5 for patients with mechanical heart valves.HEPATIC FUNCTION [id number] 05:22 :00 Test Item Value Reference Range Comments TOTAL PROTEIN (BEAKER) (test fdms=018) 6.8 gm/dL 6.0-8.3 ALBUMIN (BEAKER) (test lmor=9427) 3.6 g/dL 3.5-5.0 BILIRUBIN TOTAL (BEAKER) (test ofac=751) 1.1 mg/dL 0.2-1.2 BILIRUBIN DIRECT (BEAKER) (test xofo=595) 0.7 mg/dL 0.1-0.5 ALKALINE PHOSPHATASE (BEAKER) (test zstf=235) 87 U/L 40-150 AST (SGOT) (BEAKER) (test pzeh=622) 29 U/L 5-34 ALT (SGPT) (BEAKER) (test imnx=711) 21 U/L 6-55 POCT-GLUCOSE [id number] 22:46:00 Test Item Value Reference Range Comments POC-GLUCOSE METER (BEAKER) 130 mg/dL 70-110 TESTED AT [address] (test ubdt=3535) [facility] [address] POCT-GLUCOSE [id number] 16:56:00 Test Item Value Reference Range Comments POC-GLUCOSE METER (BEAKER) 164 mg/dL 70-110 TESTED AT [address] (test bexi=3649) [facility] [address] RESPIRATORY PANEL [id number] 15:39:00 Test Item Value Reference Range Comments HUMAN METAPNEUMOVIRUS (BEAKER) (test Not detected Not detected, Inconclusive onhj=9501) RHINOVIRUS (BEAKER) (test clhs=3946) Not detected Not detected, Inconclusive INFLUENZA A (BEAKER) (test Not detected Not detected, Inconclusive irqq=3017) INFLUENZA A SUBTYPE H1 (BEAKER) Not detected Not detected, Inconclusive (test qedi=7730) INFLUENZA A SUBTYPE H3 (BEAKER) Not detected Not detected, Inconclusive (test uflp=7282) INFLUENZA A SUBTYPE H1-2009 (BEAKER) Not detected Not detected, Inconclusive (test esiu=7399) INFLUENZA B (BEAKER) (test Not detected Not detected, Inconclusive keqc=7930) RESPIRATORY SYNCYTIAL VIRUS (BEAKER) Not detected Not detected, Inconclusive (test dbxb=3710) PARAINFLUENZA VIRUS 1 (BEAKER) (test Not detected Not detected, Inconclusive ajwf=7882) PARAINFLUENZA VIRUS 2 (BEAKER) (test Not detected Not detected, Inconclusive dnhc=0538) PARAINFLUENZA VIRUS 3 (BEAKER) (test Not detected Not detected, Inconclusive umgu=0193) PARAINFLUENZA VIRUS 4 (BEAKER) (test Not detected Not detected, Inconclusive kujp=3533) ADENOVIRUS (BEAKER) (test tnoq=1084) Not detected Not detected, Inconclusive CORONAVIRUS 229E (BEAKER) (test Not detected Not detected, Inconclusive ouyx=6959) CORONAVIRUS HKU1 (BEAKER) (test Not detected Not detected, Inconclusive yybj=5474) CORONAVIRUS NL63 (BEAKER) (test Not detected Not detected, Inconclusive vzhe=3724) CORONAVIRUS OC43 (BEAKER) (test Not detected Not detected, Inconclusive klvk=9556) BORDETELLA PERTUSSIS (BEAKER) (test Not detected Not detected, Inconclusive rsvz=5415) CHLAMYDOPHILA PNEUMONIAE (BEAKER) Not detected Not detected, Inconclusive (test wmvu=4848) MYCOPLASMA PNEUMONIAE (BEAKER) (test Not detected Not detected, Inconclusive elvc=2840) POCT-GLUCOSE [id number] 12:22:00 Test Item Value Reference Range Comments POC-GLUCOSE METER (BEAKER) 113 mg/dL 70-110 TESTED AT [facility] [address] (test kfqq=0540) [facility] [address] POCT-GLUCOSE [id number] 08:24:00 Test Item Value Reference Range Comments POC-GLUCOSE METER (BEAKER) 96 mg/dL 70-110 TESTED AT [facility] [address] (test qdou=8961) [facility] [address] BASIC METABOLIC [id number] 07:27:00 Test Item Value Reference Range Comments SODIUM (BEAKER) (test 140 meq/L 136-145 kfjb=111) POTASSIUM (BEAKER) (test 3.4 meq/L 3.5-5.1 rzaa=717) CHLORIDE (BEAKER) (test 95 meq/L 98-107 xcgd=615) CO2 (BEAKER) (test 34 meq/L 22-29 jqeb=082) BLOOD UREA NITROGEN 54 mg/dL 7-21 (BEAKER) (test puht=781) CREATININE (BEAKER) (test 1.23 mg/dL 0.57-1.25 jtnl=476) GLUCOSE RANDOM (BEAKER) 98 mg/dL 70-105 (test zqcp=509) CALCIUM (BEAKER) (test 9.3 mg/dL 8.4-10.2 yreu=555) EGFR (BEAKER) (test mL/min/1.73 sq m INSUFFICIENT CLINICAL DATA teft=0271) TO CALCULATE ESTIMATED GFR. BASIC METABOLIC [id number] 07:21:00 Test Item Value Reference Range Comments SODIUM (BEAKER) (test 139 meq/L 136-145 ssxk=444) POTASSIUM (BEAKER) (test 3.4 meq/L 3.5-5.1 Specimen slightly eovm=491) hemolyzed CHLORIDE (BEAKER) (test 95 meq/L 98-107 tlpg=203) CO2 (BEAKER) (test 35 meq/L 22-29 hxla=161) BLOOD UREA NITROGEN 55 mg/dL 7-21 (BEAKER) (test yivi=098) CREATININE (BEAKER) (test 1.17 mg/dL 0.57-1.25 Specimen slightly bmdg=677) hemolyzed GLUCOSE RANDOM (BEAKER) 97 mg/dL 70-105 (test cxmi=935) CALCIUM (BEAKER) (test 9.2 mg/dL 8.4-10.2 wtyj=694) EGFR (BEAKER) (test mL/min/1.73 sq m INSUFFICIENT CLINICAL DATA zbao=6703) TO CALCULATE ESTIMATED GFR. HEPATIC FUNCTION [id number] 07:15:00 Test Item Value Reference Range Comments TOTAL PROTEIN (BEAKER) (test 8.0 gm/dL 6.0-8.3 Specimen slightly hemolyzed aihe=718) ALBUMIN (BEAKER) (test 4.2 g/dL 3.5-5.0 Specimen slightly hemolyzed blns=7513) BILIRUBIN TOTAL (BEAKER) (test 1.3 mg/dL 0.2-1.2 Specimen slightly hemolyzed qvaw=069) BILIRUBIN DIRECT (BEAKER) (test 0.7 mg/dL 0.1-0.5 Specimen slightly hemolyzed vuel=532) ALKALINE PHOSPHATASE (BEAKER) 99 U/L 40-150 (test elrg=963) AST (SGOT) (BEAKER) (test 35 U/L 5-34 Specimen slightly hemolyzed jbsc=999) ALT (SGPT) (BEAKER) (test 24 U/L 6-55 Specimen slightly hemolyzed fccw=669) [id number] 07:08:00 Test Item Value Reference Range Comments FIBRINOGEN LEVEL (BEAKER) (test zjkq=427) 124 mg/dl 225-434 CBC W/PLT COUNT & AUTO [id number] 07:06:00 Test Item Value Reference Range Comments WHITE BLOOD CELL COUNT (BEAKER) (test teig=771) 8.4 K/ L 4.0-10.0 RED BLOOD CELL COUNT (BEAKER) (test yisu=106) 3.60 M/ L 4.20-5.80 HEMOGLOBIN (BEAKER) (test ihap=027) 11.5 GM/DL 13.0-16.8 HEMATOCRIT (BEAKER) (test ygsc=071) 35.8 % 40.0-50.0 MEAN CORPUSCULAR VOLUME (BEAKER) (test jgbf=035) 99.4 fL 82.0-98.0 MEAN CORPUSCULAR HEMOGLOBIN (BEAKER) (test 32.0 pg 27.0-33.0 gwot=266) MEAN CORPUSCULAR HEMOGLOBIN CONC (BEAKER) (test 32.2 GM/DL 32.0-36.0 nzbq=111) RED CELL DISTRIBUTION WIDTH (BEAKER) (test 14.5 % 10.3-14.2 jmqr=684) PLATELET COUNT (BEAKER) (test fhpg=449) 57 K/CU MM 150-430 MEAN PLATELET VOLUME (BEAKER) (test okea=263) 10.0 fL 6.5-10.5 NUCLEATED RED BLOOD CELLS (BEAKER) (test 0 /100 WBC 0-0 uepv=223) NEUTROPHILS RELATIVE PERCENT (BEAKER) (test 87 % skxy=493) LYMPHOCYTES RELATIVE PERCENT (BEAKER) (test 4 % vnal=757) MONOCYTES RELATIVE PERCENT (BEAKER) (test 9 % tmbe=172) EOSINOPHILS RELATIVE PERCENT (BEAKER) (test 0 % ygqk=789) BASOPHILS RELATIVE PERCENT (BEAKER) (test 0 % hzvi=793) NEUTROPHILS ABSOLUTE COUNT (BEAKER) (test 7.25 K/ L 1.80-8.00 bmnc=121) LYMPHOCYTES ABSOLUTE COUNT (BEAKER) (test 0.34 K/ L 1.48-4.50 daxy=242) MONOCYTES ABSOLUTE COUNT (BEAKER) (test lvsn=484) 0.77 K/ L 0.00-1.30 EOSINOPHILS ABSOLUTE COUNT (BEAKER) (test 0.01 K/ L 0.00-0.50 rfeh=984) BASOPHILS ABSOLUTE COUNT (BEAKER) (test vxvm=068) 0.00 K/ L 0.00-0.20 PROTHROMBIN [id number] 07:03:00 Test Item Value Reference Range Comments PROTIME (BEAKER) (test yxvn=068) 18.6 seconds 11.7-14.7 INR (BEAKER) (test htce=226) 1.6 <=5.9 RECOMMENDED COUMADIN/WARFARIN INR THERAPY RANGESSTANDARD DOSE: 2.0 - 3.0 Includes: PROPHYLAXIS forvenous thrombosis, systemic embolization; TREATMENT for venous thrombosis and/or pulmonary embolus.HIGH RISK: Target INR is 2.5-3.5 for patients with mechanical heart valves.POCT-GLUCOSE [id number] 21:23:00 Test Item Value Reference Range Comments POC-GLUCOSE METER (BEAKER) 197 mg/dL 70-110 TESTED AT [address] (test ejav=6969) [facility] [address] POCT-GLUCOSE [id number] 18:30:00 Test Item Value Reference Range Comments POC-GLUCOSE METER (BEAKER) 147 mg/dL 70-110 TESTED AT [address] (test mmpq=6677) [facility] [address] POCT-GLUCOSE [id number] 13:46:00 Test Item Value Reference Range Comments POC-GLUCOSE METER (BEAKER) 113 mg/dL 70-110 TESTED AT [facility] [address] [facility] (test wvfa=7404) [facility] [address] POCT-GLUCOSE [id number] 07:49:00 Test Item Value Reference Range Comments POC-GLUCOSE METER (BEAKER) 134 mg/dL 70-110 TESTED AT [facility] [address] [facility] (test fazj=8123) [facility] [address] PERIPHERAL BLOOD SMEAR - HOLD [id number] 06:35:00 Test Item Value Reference Range Comments PERIPHERAL SMEAR SAVE (BEAKER) (test wpuo=3025) saved BASIC METABOLIC [id number] 05:44:00 Test Item Value Reference Range Comments SODIUM (BEAKER) (test 141 meq/L 136-145 zprr=113) POTASSIUM (BEAKER) (test 3.6 meq/L 3.5-5.1 lyhb=922) CHLORIDE (BEAKER) (test 99 meq/L 98-107 oqda=351) CO2 (BEAKER) (test 31 meq/L 22-29 zccy=153) BLOOD UREA NITROGEN 59 mg/dL 7-21 (BEAKER) (test uewr=129) CREATININE (BEAKER) (test 1.09 mg/dL 0.57-1.25 muyw=130) GLUCOSE RANDOM (BEAKER) 133 mg/dL 70-105 (test hahy=186) CALCIUM (BEAKER) (test 8.6 mg/dL 8.4-10.2 mlng=214) EGFR (BEAKER) (test mL/min/1.73 sq m INSUFFICIENT CLINICAL DATA glbq=4153) TO CALCULATE ESTIMATED GFR. CBC W/PLT COUNT & AUTO [id number] 05:41:00 Test Item Value Reference Range Comments WHITE BLOOD CELL COUNT (BEAKER) (test sqsq=705) 5.8 K/ L 4.0-10.0 RED BLOOD CELL COUNT (BEAKER) (test txnt=259) 3.13 M/ L 4.20-5.80 HEMOGLOBIN (BEAKER) (test ihdz=549) 9.8 GM/DL 13.0-16.8 HEMATOCRIT (BEAKER) (test tmzb=839) 30.7 % 40.0-50.0 MEAN CORPUSCULAR VOLUME (BEAKER) (test umdn=263) 98.4 fL 82.0-98.0 MEAN CORPUSCULAR HEMOGLOBIN (BEAKER) (test 31.3 pg 27.0-33.0 mloa=445) MEAN CORPUSCULAR HEMOGLOBIN CONC (BEAKER) (test 31.9 GM/DL 32.0-36.0 byho=268) RED CELL DISTRIBUTION WIDTH (BEAKER) (test 13.7 % 10.3-14.2 fneq=538) PLATELET COUNT (BEAKER) (test zcyz=328) 52 K/CU MM 150-430 MEAN PLATELET VOLUME (BEAKER) (test lqwm=704) 9.1 fL 6.5-10.5 NUCLEATED RED BLOOD CELLS (BEAKER) (test 0 /100 WBC 0-0 tojj=407) NEUTROPHILS RELATIVE PERCENT (BEAKER) (test 92 % foxk=042) LYMPHOCYTES RELATIVE PERCENT (BEAKER) (test 3 % vhkc=206) MONOCYTES RELATIVE PERCENT (BEAKER) (test 4 % grcd=814) EOSINOPHILS RELATIVE PERCENT (BEAKER) (test 0 % zpuv=100) BASOPHILS RELATIVE PERCENT (BEAKER) (test 0 % ljlm=130) NEUTROPHILS ABSOLUTE COUNT (BEAKER) (test 5.33 K/ L 1.80-8.00 szbq=069) LYMPHOCYTES ABSOLUTE COUNT (BEAKER) (test 0.19 K/ L 1.48-4.50 txmu=006) MONOCYTES ABSOLUTE COUNT (BEAKER) (test qqzh=787) 0.24 K/ L 0.00-1.30 EOSINOPHILS ABSOLUTE COUNT (BEAKER) (test 0.01 K/ L 0.00-0.50 jwrr=362) BASOPHILS ABSOLUTE COUNT (BEAKER) (test cbpb=190) 0.03 K/ L 0.00-0.20 [id number] 05:37:00 Test Item Value Reference Range Comments FIBRINOGEN LEVEL (BEAKER) (test tfzz=796) 117 mg/dl 225-434 HEPATIC FUNCTION [id number] 05:34:00 Test Item Value Reference Range Comments TOTAL PROTEIN (BEAKER) (test qbat=680) 6.9 gm/dL 6.0-8.3 ALBUMIN (BEAKER) (test mahw=4060) 3.6 g/dL 3.5-5.0 BILIRUBIN TOTAL (BEAKER) (test siit=823) 0.9 mg/dL 0.2-1.2 BILIRUBIN DIRECT (BEAKER) (test cxpk=132) 0.6 mg/dL 0.1-0.5 ALKALINE PHOSPHATASE (BEAKER) (test frth=213) 86 U/L 40-150 AST (SGOT) (BEAKER) (test lgdt=963) 30 U/L 5-34 ALT (SGPT) (BEAKER) (test gtfn=824) 20 U/L 6-55 PROTHROMBIN [id number] 05:32:00 Test Item Value Reference Range Comments PROTIME (BEAKER) (test zkqz=225) 19.3 seconds 11.7-14.7 INR (BEAKER) (test ajdl=982) 1.6 <=5.9 RECOMMENDED COUMADIN/WARFARIN INR THERAPY RANGESSTANDARD DOSE: 2.0 - 3.0 Includes: PROPHYLAXIS forvenous thrombosis, systemic embolization; TREATMENT for venous thrombosis and/or pulmonary embolus.HIGH RISK: Target INR is 2.5-3.5 for patients with mechanical heart valves.POCT-GLUCOSE [id number] 23:16:00 Test Item Value Reference Range Comments POC-GLUCOSE METER (BEAKER) 221 mg/dL 70-110 TESTED AT [address] (test fqus=7136) [place] [id number] POCT-GLUCOSE [id number] 16:13:00 Test Item Value Reference Range Comments POC-GLUCOSE METER (BEAKER) 117 mg/dL 70-110 TESTED AT [address] (test mvpu=1374) [place] [id number] POCT-GLUCOSE [id number] 12:52:00 Test Item Value Reference Range Comments POC-GLUCOSE METER ([facility]) 91 mg/dL 70-110 TESTED AT [address] (test hdhc=9149) [place] [id number] CBC W/PLT COUNT & AUTO [id number] 06:44:00 Test Item Value Reference Range Comments WHITE BLOOD CELL COUNT (BEAKER) (test ovfj=129) 6.9 K/ L 4.0-10.0 RED BLOOD CELL COUNT (BEAKER) (test uafz=209) 3.13 M/ L 4.20-5.80 HEMOGLOBIN (BEAKER) (test cklq=405) 9.9 GM/DL 13.0-16.8 HEMATOCRIT (BEAKER) (test tvos=941) 30.8 % 40.0-50.0 MEAN CORPUSCULAR VOLUME (BEAKER) (test tqhc=924) 98.6 fL 82.0-98.0 MEAN CORPUSCULAR HEMOGLOBIN (BEAKER) (test 31.7 pg 27.0-33.0 bzgr=922) MEAN CORPUSCULAR HEMOGLOBIN CONC (BEAKER) (test 32.1 GM/DL 32.0-36.0 hkbr=679) RED CELL DISTRIBUTION WIDTH (BEAKER) (test 13.8 % 10.3-14.2 skgu=063) PLATELET COUNT (BEAKER) (test hoxv=388) 43 K/CU MM 150-430 MEAN PLATELET VOLUME (BEAKER) (test pfhg=577) 9.5 fL 6.5-10.5 NUCLEATED RED BLOOD CELLS (BEAKER) (test 0 /100 WBC 0-0 idgz=904) NEUTROPHILS RELATIVE PERCENT (BEAKER) (test 84 % xttv=382) LYMPHOCYTES RELATIVE PERCENT (BEAKER) (test 5 % xfzb=140) MONOCYTES RELATIVE PERCENT (BEAKER) (test 11 % hciy=298) EOSINOPHILS RELATIVE PERCENT (BEAKER) (test 0 % oklq=336) BASOPHILS RELATIVE PERCENT (BEAKER) (test 0 % wpwk=061) NEUTROPHILS ABSOLUTE COUNT (BEAKER) (test 5.73 K/ L 1.80-8.00 rmvv=166) LYMPHOCYTES ABSOLUTE COUNT (BEAKER) (test 0.34 K/ L 1.48-4.50 rnxp=595) MONOCYTES ABSOLUTE COUNT (BEAKER) (test agzx=659) 0.77 K/ L 0.00-1.30 EOSINOPHILS ABSOLUTE COUNT (BEAKER) (test 0.01 K/ L 0.00-0.50 bwts=418) BASOPHILS ABSOLUTE COUNT (BEAKER) (test iunt=593) 0.00 K/ L 0.00-0.20 0.00BASI METABOLIC [id number] 06:21:00 Test Item Value Reference Range Comments SODIUM (BEAKER) (test 141 meq/L 136-145 tksn=879) POTASSIUM (BEAKER) (test 3.6 meq/L 3.5-5.1 dsdc=677) CHLORIDE (BEAKER) (test 98 meq/L 98-107 qurt=108) CO2 (BEAKER) (test 31 meq/L 22-29 ttad=936) BLOOD UREA NITROGEN 60 mg/dL 7-21 (BEAKER) (test pezy=171) CREATININE (BEAKER) (test 1.06 mg/dL 0.57-1.25 fhax=667) GLUCOSE RANDOM (BEAKER) 88 mg/dL 70-105 (test vglo=788) CALCIUM (BEAKER) (test 9.3 mg/dL 8.4-10.2 alhp=060) EGFR (BEAKER) (test mL/min/1.73 sq m INSUFFICIENT CLINICAL DATA qdev=5846) TO CALCULATE ESTIMATED GFR. [id number] 06:20:00 Test Item Value Reference Range Comments FIBRINOGEN LEVEL (BEAKER) (test tjyd=184) 128 mg/dl 225-434 HEPATIC FUNCTION [id number] 06:18:00 Test Item Value Reference Range Comments TOTAL PROTEIN (BEAKER) (test gfxr=138) 7.7 gm/dL 6.0-8.3 ALBUMIN (BEAKER) (test gxrw=3635) 4.1 g/dL 3.5-5.0 BILIRUBIN TOTAL (BEAKER) (test ehbq=209) 1.0 mg/dL 0.2-1.2 BILIRUBIN DIRECT (BEAKER) (test aclh=945) 0.6 mg/dL 0.1-0.5 ALKALINE PHOSPHATASE (BEAKER) (test uygf=228) 89 U/L 40-150 AST (SGOT) (BEAKER) (test rbxx=380) 30 U/L 5-34 ALT (SGPT) (BEAKER) (test qdby=782) 17 U/L 6-55 PROTHROMBIN [id number] 06:15:00 Test Item Value Reference Range Comments PROTIME (BEAKER) (test cjka=858) 19.5 seconds 11.7-14.7 INR (BEAKER) (test tepz=469) 1.7 <=5.9 RECOMMENDED COUMADIN/WARFARIN INR THERAPY RANGESSTANDARD DOSE: 2.0 - 3.0 Includes: PROPHYLAXIS forvenous thrombosis, systemic embolization; TREATMENT for venous thrombosis and/or pulmonary embolus.HIGH RISK: Target INR is 2.5-3.5 for patients with mechanical heart valves.POCT-GLUCOSE [id number] 21:14:00 Test Item Value Reference Range Comments POC-GLUCOSE METER (BEAKER) 133 mg/dL 70-110 TESTED AT [address] (test lqpc=7436) [facility] [address] POCT-GLUCOSE [id number] 17:48:00 Test Item Value Reference Range Comments POC-GLUCOSE METER (BEAKER) 236 mg/dL 70-110 TESTED AT [facility] [address] [facility] (test vjmj=1456) [facility] [address] POCT-GLUCOSE [id number] 08:18:00 Test Item Value Reference Range Comments POC-GLUCOSE METER (BEAKER) 86 mg/dL 70-110 TESTED AT [place] [id number] [facility] (test uhqg=6735) [facility] [address] BASIC METABOLIC [id number] 05:37:00 Test Item Value Reference Range Comments SODIUM (BEAKER) (test 140 meq/L 136-145 xczu=636) POTASSIUM (BEAKER) (test 3.8 meq/L 3.5-5.1 esoo=797) CHLORIDE (BEAKER) (test 96 meq/L 98-107 chty=947) CO2 (BEAKER) (test 32 meq/L 22-29 jewl=231) BLOOD UREA NITROGEN 64 mg/dL 7-21 (BEAKER) (test spck=886) CREATININE (BEAKER) (test 1.25 mg/dL 0.57-1.25 qrry=384) GLUCOSE RANDOM (BEAKER) 129 mg/dL 70-105 (test lhbf=468) CALCIUM (BEAKER) (test 9.4 mg/dL 8.4-10.2 udyr=436) EGFR (BEAKER) (test mL/min/1.73 sq m INSUFFICIENT CLINICAL DATA inkp=2191) TO CALCULATE ESTIMATED GFR. HEPATIC FUNCTION [id number] 05:30:00 Test Item Value Reference Range Comments TOTAL PROTEIN (BEAKER) (test qmtd=244) 8.2 gm/dL 6.0-8.3 ALBUMIN (BEAKER) (test obug=8637) 4.3 g/dL 3.5-5.0 BILIRUBIN TOTAL (BEAKER) (test ewus=765) 1.0 mg/dL 0.2-1.2 BILIRUBIN DIRECT (BEAKER) (test vzlp=752) 0.6 mg/dL 0.1-0.5 ALKALINE PHOSPHATASE (BEAKER) (test pjex=137) 92 U/L 40-150 AST (SGOT) (BEAKER) (test vwux=166) 27 U/L 5-34 ALT (SGPT) (BEAKER) (test ysmr=008) 18 U/L 6-55 [id number] 05:29:00 Test Item Value Reference Range Comments PHOSPHORUS (BEAKER) (test jbdo=265) 4.6 mg/dL 2.3-4.7 [id number] 05:29:00 Test Item Value Reference Range Comments MAGNESIUM (BEAKER) (test pckj=218) 2.3 mg/dL 1.6-2.6 [id number] 05:00:00 Test Item Value Reference Range Comments FIBRINOGEN LEVEL (BEAKER) (test puyb=455) 139 mg/dl 225-434 [id number] 04:55:00 Test Item Value Reference Range Comments PARTIAL THROMBOPLASTIN TIME (BEAKER) (test 29.7 seconds 22.5-36.0 wxld=688) PROTHROMBIN TIME/[id number] 04:54:00 Test Item Value Reference Range Comments PROTIME (BEAKER) (test wpcz=388) 18.8 seconds 11.7-14.7 INR (BEAKER) (test vdvt=221) 1.6 <=5.9 RECOMMENDED COUMADIN/WARFARIN INR THERAPY RANGESSTANDARD DOSE: 2.0 - 3.0 Includes: PROPHYLAXIS forvenous thrombosis, systemic embolization; TREATMENT for venous thrombosis and/or pulmonary embolus.HIGH RISK: Target INR is 2.5-3.5 for patients with mechanical heart valves.CBC W/PLT COUNT & AUTO [id number] 04:52:00 Test Item Value Reference Range Comments WHITE BLOOD CELL COUNT (BEAKER) (test emws=943) 6.9 K/ L 4.0-10.0 RED BLOOD CELL COUNT (BEAKER) (test lgkz=767) 3.13 M/ L 4.20-5.80 HEMOGLOBIN (BEAKER) (test zeng=813) 10.1 GM/DL 13.0-16.8 HEMATOCRIT (BEAKER) (test qbur=381) 30.7 % 40.0-50.0 MEAN CORPUSCULAR VOLUME (BEAKER) (test iaqc=278) 98.1 fL 82.0-98.0 MEAN CORPUSCULAR HEMOGLOBIN (BEAKER) (test 32.2 pg 27.0-33.0 erxj=659) MEAN CORPUSCULAR HEMOGLOBIN CONC (BEAKER) (test 32.8 GM/DL 32.0-36.0 lbkr=636) RED CELL DISTRIBUTION WIDTH (BEAKER) (test 13.8 % 10.3-14.2 pgdk=320) PLATELET COUNT (BEAKER) (test riub=402) 67 K/CU MM 150-430 MEAN PLATELET VOLUME (BEAKER) (test ngqa=408) 7.6 fL 6.5-10.5 NUCLEATED RED BLOOD CELLS (BEAKER) (test 0 /100 WBC 0-0 lkzo=283) NEUTROPHILS RELATIVE PERCENT (BEAKER) (test 87 % cskq=180) LYMPHOCYTES RELATIVE PERCENT (BEAKER) (test 5 % hqkm=838) MONOCYTES RELATIVE PERCENT (BEAKER) (test 8 % rgjo=517) EOSINOPHILS RELATIVE PERCENT (BEAKER) (test 0 % uqax=382) BASOPHILS RELATIVE PERCENT (BEAKER) (test 0 % krxt=329) NEUTROPHILS ABSOLUTE COUNT (BEAKER) (test 6.02 K/ L 1.80-8.00 kelm=269) LYMPHOCYTES ABSOLUTE COUNT (BEAKER) (test 0.32 K/ L 1.48-4.50 cxzv=307) MONOCYTES ABSOLUTE COUNT (BEAKER) (test srpa=676) 0.56 K/ L 0.00-1.30 EOSINOPHILS ABSOLUTE COUNT (BEAKER) (test 0.01 K/ L 0.00-0.50 gjpe=381) BASOPHILS ABSOLUTE COUNT (BEAKER) (test qqgt=432) 0.00 K/ L 0.00-0.20 0.00POCT-GLUCOSE [id number] 21:17:00 Test Item Value Reference Range Comments POC-GLUCOSE METER (BEAKER) 191 mg/dL 70-110 TESTED AT [address] (test snfa=4257) [facility] [address] POCT-GLUCOSE [id number] 17:29:00 Test Item Value Reference Range Comments POC-GLUCOSE METER (BEAKER) 161 mg/dL 70-110 TESTED AT [address] (test zmef=7518) [facility] [address] POCT-GLUCOSE [id number] 11:48:00 Test Item Value Reference Range Comments POC-GLUCOSE METER (BEAKER) 103 mg/dL 70-110 TESTED AT [address] (test qpfa=5749) [facility] [address] POCT-GLUCOSE [id number] 07:43:00 Test Item Value Reference Range Comments POC-GLUCOSE METER (BEAKER) 100 mg/dL 70-110 TESTED AT [facility] [address] [facility] (test euzp=0878) [facility] [address] BASIC METABOLIC [id number] 04:34:00 Test Item Value Reference Range Comments SODIUM (BEAKER) (test 139 meq/L 136-145 pnur=132) POTASSIUM (BEAKER) (test 3.5 meq/L 3.5-5.1 dtbq=932) CHLORIDE (BEAKER) (test 94 meq/L 98-107 kjnx=542) CO2 (BEAKER) (test 33 meq/L 22-29 zagd=359) BLOOD UREA NITROGEN 64 mg/dL 7-21 (BEAKER) (test wtgy=919) CREATININE (BEAKER) (test 1.16 mg/dL 0.57-1.25 xech=555) GLUCOSE RANDOM (BEAKER) 122 mg/dL 70-105 (test ethp=240) CALCIUM (BEAKER) (test 9.2 mg/dL 8.4-10.2 gluv=390) EGFR (BEAKER) (test mL/min/1.73 sq m INSUFFICIENT CLINICAL DATA gnlq=3121) TO CALCULATE ESTIMATED GFR. [id number] 04:33:00 Test Item Value Reference Range Comments MAGNESIUM (BEAKER) (test tuip=935) 2.2 mg/dL 1.6-2.6 [id number] 04:33:00 Test Item Value Reference Range Comments PHOSPHORUS (BEAKER) (test eizv=048) 3.8 mg/dL 2.3-4.7 HEPATIC FUNCTION [id number] 04:33:00 Test Item Value Reference Range Comments TOTAL PROTEIN (BEAKER) (test aznb=339) 7.7 gm/dL 6.0-8.3 ALBUMIN (BEAKER) (test mqvv=3758) 4.2 g/dL 3.5-5.0 BILIRUBIN TOTAL (BEAKER) (test xcwx=497) 0.9 mg/dL 0.2-1.2 BILIRUBIN DIRECT (BEAKER) (test srtf=644) 0.6 mg/dL 0.1-0.5 ALKALINE PHOSPHATASE (BEAKER) (test ergd=641) 87 U/L 40-150 AST (SGOT) (BEAKER) (test ayxa=469) 26 U/L 5-34 ALT (SGPT) (BEAKER) (test msok=701) 15 U/L 6-55 [id number] 04:30:00 Test Item Value Reference Range Comments FIBRINOGEN LEVEL (BEAKER) (test kpwu=295) 137 mg/dl 225-434 [id number] 04:25:00 Test Item Value Reference Range Comments PARTIAL THROMBOPLASTIN TIME (BEAKER) (test 30.2 seconds 22.5-36.0 wnya=835) PROTHROMBIN [id number] 04:24:00 Test Item Value Reference Range Comments PROTIME (BEAKER) (test kmur=449) 19.5 seconds 11.7-14.7 INR (BEAKER) (test nhbk=803) 1.7 <=5.9 RECOMMENDED COUMADIN/WARFARIN INR THERAPY RANGESSTANDARD DOSE: 2.0 - 3.0 Includes: PROPHYLAXIS forvenous thrombosis, systemic embolization; TREATMENT for venous thrombosis and/or pulmonary embolus.HIGH RISK: Target INR is 2.5-3.5 for patients with mechanical heart valves.CBC W/PLT COUNT & AUTO [id number] 04:19:00 Test Item Value Reference Range Comments WHITE BLOOD CELL COUNT (BEAKER) (test wczc=257) 6.9 K/ L 4.0-10.0 RED BLOOD CELL COUNT (BEAKER) (test myrb=263) 2.95 M/ L 4.20-5.80 HEMOGLOBIN (BEAKER) (test zfgo=659) 9.7 GM/DL 13.0-16.8 HEMATOCRIT (BEAKER) (test vuzk=880) 28.9 % 40.0-50.0 MEAN CORPUSCULAR VOLUME (BEAKER) (test qivs=647) 98.1 fL 82.0-98.0 MEAN CORPUSCULAR HEMOGLOBIN (BEAKER) (test 32.7 pg 27.0-33.0 fokc=553) MEAN CORPUSCULAR HEMOGLOBIN CONC (BEAKER) (test 33.4 GM/DL 32.0-36.0 treb=827) RED CELL DISTRIBUTION WIDTH (BEAKER) (test 14.4 % 10.3-14.2 jrtr=779) PLATELET COUNT (BEAKER) (test dkkx=341) 65 K/CU MM 150-430 MEAN PLATELET VOLUME (BEAKER) (test oyku=784) 8.4 fL 6.5-10.5 NUCLEATED RED BLOOD CELLS (BEAKER) (test 0 /100 WBC 0-0 ofye=094) NEUTROPHILS RELATIVE PERCENT (BEAKER) (test 85 % xhrl=824) LYMPHOCYTES RELATIVE PERCENT (BEAKER) (test 6 % pjir=281) MONOCYTES RELATIVE PERCENT (BEAKER) (test 9 % eprs=415) EOSINOPHILS RELATIVE PERCENT (BEAKER) (test 0 % biom=821) BASOPHILS RELATIVE PERCENT (BEAKER) (test 0 % byon=583) NEUTROPHILS ABSOLUTE COUNT (BEAKER) (test 5.83 K/ L 1.80-8.00 sqqp=833) LYMPHOCYTES ABSOLUTE COUNT (BEAKER) (test 0.38 K/ L 1.48-4.50 oypx=849) MONOCYTES ABSOLUTE COUNT (BEAKER) (test nfal=488) 0.65 K/ L 0.00-1.30 EOSINOPHILS ABSOLUTE COUNT (BEAKER) (test 0.02 K/ L 0.00-0.50 xqlt=552) BASOPHILS ABSOLUTE COUNT (BEAKER) (test wocn=299) 0.02 K/ L 0.00-0.20 0.00POCT-GLUCOSE [id number] 17:17:00 Test Item Value Reference Range Comments POC-GLUCOSE METER (BEAKER) 149 mg/dL 70-110 TESTED AT [address] (test okej=8119) [place] [id number] POCT-GLUCOSE [id number] 13:08:00 Test Item Value Reference Range Comments POC-GLUCOSE METER (BEAKER) 106 mg/dL 70-110 TESTED AT [address] (test cezk=7339) [place] [id number] CBC W/PLT COUNT & AUTO [id number] 08:13:00 Test Item Value Reference Range Comments WHITE BLOOD CELL COUNT (BEAKER) 5.5 K/ L 4.0-10.0 (test dnbi=657) RED BLOOD CELL COUNT (BEAKER) 2.95 M/ L 4.20-5.80 (test jezu=994) HEMOGLOBIN (BEAKER) (test 9.5 GM/DL 13.0-16.8 jvva=525) HEMATOCRIT (BEAKER) (test 29.1 % 40.0-50.0 esnc=392) MEAN CORPUSCULAR VOLUME 98.4 fL 82.0-98.0 (BEAKER) (test adst=998) MEAN CORPUSCULAR HEMOGLOBIN 32.2 pg 27.0-33.0 (BEAKER) (test dffr=045) MEAN CORPUSCULAR HEMOGLOBIN 32.8 GM/DL 32.0-36.0 CONC (BEAKER) (test odle=583) RED CELL DISTRIBUTION WIDTH 13.8 % 10.3-14.2 (BEAKER) (test nfmg=676) PLATELET COUNT (BEAKER) (test K/CU MM 150-430 plt clumps, see manual plt snbo=723) count MEAN PLATELET VOLUME (BEAKER) 9.2 fL 6.5-10.5 (test tyut=462) NUCLEATED RED BLOOD CELLS 0 /100 WBC 0-0 (BEAKER) (test csjr=710) NEUTROPHILS RELATIVE PERCENT 85 % (BEAKER) (test ofbo=503) LYMPHOCYTES RELATIVE PERCENT 4 % (BEAKER) (test mjrt=657) MONOCYTES RELATIVE PERCENT 10 % (BEAKER) (test bjee=651) EOSINOPHILS RELATIVE PERCENT 0 % (BEAKER) (test sdur=106) BASOPHILS RELATIVE PERCENT 0 % (BEAKER) (test nvsz=375) NEUTROPHILS ABSOLUTE COUNT 4.72 K/ L 1.80-8.00 (BEAKER) (test jbao=778) LYMPHOCYTES ABSOLUTE COUNT 0.23 K/ L 1.48-4.50 (BEAKER) (test bwgh=345) MONOCYTES ABSOLUTE COUNT 0.57 K/ L 0.00-1.30 (BEAKER) (test nagk=844) EOSINOPHILS ABSOLUTE COUNT 0.01 K/ L 0.00-0.50 (BEAKER) (test edeu=699) BASOPHILS ABSOLUTE COUNT 0.01 K/ L 0.00-0.20 (BEAKER) (test qtbx=613) 0.00(MANUAL DIFFERENTIAL)2016-09-13 08:13:00 Test Item Value Reference Range Comments TOTAL COUNTED (BEAKER) (test ovvm=8354) WBC MORPHOLOGY (BEAKER) (test nfio=214) Normal LARGE PLT(BEAKER) (test whko=9652) Present CLUMPED PLATELETS (BEAKER) (test gkuc=723) Present ANISOCYTOSIS (BEAKER) (test kkse=098) 1+ few HYPOCHROMIA (BEAKER) (test kqls=068) 1+ few MACROCYTES (BEAKER) (test fedc=008) 1+ few OVALOCYTES (BEAKER) (test kuxg=625) 1+ few POIKILOCYTES (BEAKER) (test oaso=203) 1+ few PLATELET COUNT BY MANUAL [id number] 08:13:00 Test Item Value Reference Range Comments PLATELET COUNT MANUAL (BEAKER) (test hlul=4486) 60 K/CU MM 150-430 POCT-GLUCOSE [id number] 07:37:00 Test Item Value Reference Range Comments POC-GLUCOSE METER (BEAKER) 113 mg/dL 70-110 TESTED AT [facility] [address] [facility] (test rgbh=3741) [facility] [address] BASIC METABOLIC [id number] 06:17:00 Test Item Value Reference Range Comments SODIUM (BEAKER) (test 141 meq/L 136-145 qjet=972) POTASSIUM (BEAKER) (test 3.7 meq/L 3.5-5.1 sokv=668) CHLORIDE (BEAKER) (test 98 meq/L 98-107 vcxk=970) CO2 (BEAKER) (test 33 meq/L 22-29 pjeb=574) BLOOD UREA NITROGEN 65 mg/dL 7-21 (BEAKER) (test xxcy=265) CREATININE (BEAKER) (test 1.15 mg/dL 0.57-1.25 lerx=562) GLUCOSE RANDOM (BEAKER) 115 mg/dL 70-105 (test nhzp=822) CALCIUM (BEAKER) (test 9.0 mg/dL 8.4-10.2 xtwc=635) EGFR (BEAKER) (test mL/min/1.73 sq m INSUFFICIENT CLINICAL DATA bzfv=9011) TO CALCULATE ESTIMATED GFR. [id number] 05:59:00 Test Item Value Reference Range Comments FIBRINOGEN LEVEL (BEAKER) (test yhzd=003) 157 mg/dl 225-434 [id number] 05:53:00 Test Item Value Reference Range Comments PARTIAL THROMBOPLASTIN TIME (BEAKER) (test 31.2 seconds 22.5-36.0 igdt=690) PROTHROMBIN [id number] 05:52:00 Test Item Value Reference Range Comments PROTIME (BEAKER) (test cmuu=647) 20.3 seconds 11.7-14.7 INR (BEAKER) (test cecz=117) 1.7 <=5.9 RECOMMENDED COUMADIN/WARFARIN INR THERAPY RANGESSTANDARD DOSE: 2.0 - 3.0 Includes: PROPHYLAXIS forvenous thrombosis, systemic embolization; TREATMENT for venous thrombosis and/or pulmonary embolus.HIGH RISK: Target INR is 2.5-3.5 for patients with mechanical heart valves.POCT-GLUCOSE [id number] 21:09:00 Test Item Value Reference Range Comments POC-GLUCOSE METER (BEAKER) 233 mg/dL 70-110 TESTED AT [address] (test kpcg=0980) [place] [address] POCT-GLUCOSE [id number] 13:03:00 Test Item Value Reference Range Comments POC-GLUCOSE METER (BEAKER) 93 mg/dL 70-110 TESTED AT [address] (test xfuq=2744) [place] [address] BASIC METABOLIC [id number] 07:06:00 Test Item Value Reference Range Comments SODIUM (BEAKER) (test 140 meq/L 136-145 oood=066) POTASSIUM (BEAKER) (test 4.0 meq/L 3.5-5.1 phhu=233) CHLORIDE (BEAKER) (test 99 meq/L 98-107 rhph=562) CO2 (BEAKER) (test 29 meq/L 22-29 ajrc=639) BLOOD UREA NITROGEN 66 mg/dL 7-21 (BEAKER) (test npjl=958) CREATININE (BEAKER) (test 1.28 mg/dL 0.57-1.25 czhq=979) GLUCOSE RANDOM (BEAKER) 108 mg/dL 70-105 (test xigk=411) CALCIUM (BEAKER) (test 8.9 mg/dL 8.4-10.2 nogt=707) EGFR (BEAKER) (test mL/min/1.73 sq m INSUFFICIENT CLINICAL DATA dcwp=7564) TO CALCULATE ESTIMATED GFR. B-TYPE NATRIURETIC FACTOR (BNP)2016-09-12 07:04:00 Test Item Value Reference Range Comments B-TYPE NATRIURETIC PEPTIDE (BEAKER) (test 323 pg/mL 0-100 ekqi=025) CBC W/PLT COUNT & AUTO [id number] 07:02:00 Test Item Value Reference Range Comments WHITE BLOOD CELL COUNT (BEAKER) (test chbl=926) 6.2 K/ L 4.0-10.0 RED BLOOD CELL COUNT (BEAKER) (test iuvf=220) 2.82 M/ L 4.20-5.80 HEMOGLOBIN (BEAKER) (test htlx=207) 9.2 GM/DL 13.0-16.8 HEMATOCRIT (BEAKER) (test kann=777) 27.9 % 40.0-50.0 MEAN CORPUSCULAR VOLUME (BEAKER) (test lpof=983) 98.7 fL 82.0-98.0 MEAN CORPUSCULAR HEMOGLOBIN (BEAKER) (test 32.7 pg 27.0-33.0 mrtd=965) MEAN CORPUSCULAR HEMOGLOBIN CONC (BEAKER) (test 33.2 GM/DL 32.0-36.0 byyi=683) RED CELL DISTRIBUTION WIDTH (BEAKER) (test 13.8 % 10.3-14.2 dumv=360) PLATELET COUNT (BEAKER) (test thwy=438) 52 K/CU MM 150-430 MEAN PLATELET VOLUME (BEAKER) (test cjof=509) 8.6 fL 6.5-10.5 NUCLEATED RED BLOOD CELLS (BEAKER) (test 0 /100 WBC 0-0 wsye=009) NEUTROPHILS RELATIVE PERCENT (BEAKER) (test 85 % utjl=738) LYMPHOCYTES RELATIVE PERCENT (BEAKER) (test 4 % qxvo=353) MONOCYTES RELATIVE PERCENT (BEAKER) (test 10 % ldua=453) EOSINOPHILS RELATIVE PERCENT (BEAKER) (test 0 % umqo=794) BASOPHILS RELATIVE PERCENT (BEAKER) (test 1 % cbio=433) NEUTROPHILS ABSOLUTE COUNT (BEAKER) (test 5.26 K/ L 1.80-8.00 yrdh=120) LYMPHOCYTES ABSOLUTE COUNT (BEAKER) (test 0.24 K/ L 1.48-4.50 qrvn=179) MONOCYTES ABSOLUTE COUNT (BEAKER) (test vwmc=554) 0.61 K/ L 0.00-1.30 EOSINOPHILS ABSOLUTE COUNT (BEAKER) (test 0.01 K/ L 0.00-0.50 yluu=166) BASOPHILS ABSOLUTE COUNT (BEAKER) (test qbui=145) 0.06 K/ L 0.00-0.20 [id number] 06:59:00 Test Item Value Reference Range Comments FIBRINOGEN LEVEL (BEAKER) (test exor=893) 150 mg/dl 225-434 [id number] 06:55:00 Test Item Value Reference Range Comments PARTIAL THROMBOPLASTIN TIME (BEAKER) (test 32.2 seconds 22.5-36.0 duco=564) PROTHROMBIN [id number] 06:52:00 Test Item Value Reference Range Comments PROTIME (BEAKER) (test imot=746) 20.2 seconds 11.7-14.7 INR (BEAKER) (test ghjp=684) 1.7 <=5.9 RECOMMENDED COUMADIN/WARFARIN INR THERAPY RANGESSTANDARD DOSE: 2.0 - 3.0 Includes: PROPHYLAXIS forvenous thrombosis, systemic embolization; TREATMENT for venous thrombosis and/or pulmonary embolus.HIGH RISK: Target INR is 2.5-3.5 for patients with mechanical heart valves.POCT-GLUCOSE [id number] 21:59:00 Test Item Value Reference Range Comments POC-GLUCOSE METER ([facility]) 168 mg/dL 70-110 TESTED AT [address] (test llbq=9814) [place] [address] BODY FLUID CULTURE + GRAM [id number] 14:32:00 Test Item Value Reference Range Comments CULTURE (BEAKER) (test hfzd=3748) No growth GRAM STAIN RESULT (BEAKER) (test 2+ WBCs ysfu=3146) GRAM STAIN RESULT ([facility]) (test No organisms seen rfxn=67642) POCT-GLUCOSE [id number] 11:29:00 Test Item Value Reference Range Comments POC-GLUCOSE METER ([facility]) 94 mg/dL 70-110 TESTED AT [address] (test shgi=3988) [place] [id number] CBC W/PLT COUNT & AUTO [id number] 09:59:00 Test Item Value Reference Range Comments WHITE BLOOD CELL COUNT (BEAKER) (test kiyv=134) 7.6 K/ L 4.0-10.0 RED BLOOD CELL COUNT (BEAKER) (test kfwv=524) 3.23 M/ L 4.20-5.80 HEMOGLOBIN (BEAKER) (test ikzi=672) 9.5 GM/DL 13.0-16.8 HEMATOCRIT (BEAKER) (test nebu=648) 31.9 % 40.0-50.0 MEAN CORPUSCULAR VOLUME (BEAKER) (test hjod=787) 98.6 fL 82.0-98.0 MEAN CORPUSCULAR HEMOGLOBIN (BEAKER) (test 29.5 pg 27.0-33.0 jzfr=631) MEAN CORPUSCULAR HEMOGLOBIN CONC (BEAKER) (test 29.9 GM/DL 32.0-36.0 dyeo=949) RED CELL DISTRIBUTION WIDTH (BEAKER) (test 13.8 % 10.3-14.2 fmri=080) PLATELET COUNT (BEAKER) (test njll=255) 33 K/CU MM 150-430 MEAN PLATELET VOLUME (BEAKER) (test oehr=157) 9.9 fL 6.5-10.5 NUCLEATED RED BLOOD CELLS (BEAKER) (test 0 /100 WBC 0-0 lkqo=187) NEUTROPHILS RELATIVE PERCENT (BEAKER) (test 86 % cypy=725) LYMPHOCYTES RELATIVE PERCENT (BEAKER) (test 4 % rjxk=121) MONOCYTES RELATIVE PERCENT (BEAKER) (test 10 % avky=494) EOSINOPHILS RELATIVE PERCENT (BEAKER) (test 0 % huxp=865) BASOPHILS RELATIVE PERCENT (BEAKER) (test 1 % tnep=744) NEUTROPHILS ABSOLUTE COUNT (BEAKER) (test 6.55 K/ L 1.80-8.00 mymp=063) LYMPHOCYTES ABSOLUTE COUNT (BEAKER) (test 0.27 K/ L 1.48-4.50 didh=048) MONOCYTES ABSOLUTE COUNT (BEAKER) (test xjfs=287) 0.76 K/ L 0.00-1.30 EOSINOPHILS ABSOLUTE COUNT (BEAKER) (test 0.01 K/ L 0.00-0.50 ydbn=322) BASOPHILS ABSOLUTE COUNT (BEAKER) (test qrmc=755) 0.05 K/ L 0.00-0.20 0.000.730.900.000.000.000.000.000.000.000.000.000.000.000.000.000.000.00(MANUAL DIFFERENTIAL)2016-09-11 09:59:00 Test Item Value Reference Range Comments TOTAL COUNTED (BEAKER) (test eoro=7627) POCT-GLUCOSE [id number] 08:02:00 Test Item Value Reference Range Comments POC-GLUCOSE METER (BEAKER) 173 mg/dL 70-110 TESTED AT [facility] [address] (test xino=9123) [facility] [address] BLOOD [id number] 06:00:00 Test Item Value Reference Range Comments CULTURE (BEAKER) (test dwyk=8401) No growth in 5 days BLOOD [id number] 06:00:00 Test Item Value Reference Range Comments CULTURE (BEAKER) (test tmps=1477) No growth in 5 days BASIC METABOLIC [id number] 05:16:00 Test Item Value Reference Range Comments SODIUM (BEAKER) (test 137 meq/L 136-145 xsgm=732) POTASSIUM (BEAKER) (test 4.3 meq/L 3.5-5.1 hypq=335) CHLORIDE (BEAKER) (test 100 meq/L 98-107 ncvg=121) CO2 (BEAKER) (test 28 meq/L 22-29 insl=770) BLOOD UREA NITROGEN 63 mg/dL 7-21 (BEAKER) (test lidx=014) CREATININE (BEAKER) (test 1.35 mg/dL 0.57-1.25 lwei=313) GLUCOSE RANDOM (BEAKER) 107 mg/dL 70-105 (test fyus=106) CALCIUM (BEAKER) (test 8.8 mg/dL 8.4-10.2 nitd=513) EGFR (BEAKER) (test mL/min/1.73 sq m INSUFFICIENT CLINICAL DATA dvza=3038) TO CALCULATE ESTIMATED GFR. [id number] 05:05:00 Test Item Value Reference Range Comments FIBRINOGEN LEVEL (BEAKER) (test zxqv=440) 182 mg/dl 225-434 PROTHROMBIN [id number] 05:04:00 Test Item Value Reference Range Comments PROTIME (BEAKER) (test qloh=158) 19.1 seconds 11.7-14.7 INR (BEAKER) (test zaew=130) 1.6 <=5.9 RECOMMENDED COUMADIN/WARFARIN INR THERAPY RANGESSTANDARD DOSE: 2.0 - 3.0 Includes: PROPHYLAXIS forvenous thrombosis, systemic embolization; TREATMENT for venous thrombosis and/or pulmonary embolus.HIGH RISK: Target INR is 2.5-3.5 for patients with mechanical heart valves.[id number] 05:04:00 Test Item Value Reference Range Comments PARTIAL THROMBOPLASTIN TIME (BEAKER) (test 31.5 seconds 22.5-36.0 xuni=737) POCT-GLUCOSE [id number] 21:44:00 Test Item Value Reference Range Comments POC-GLUCOSE METER (BEAKER) 167 mg/dL 70-110 TESTED AT [address] (test wgce=7366) [place] [id number] POCT-GLUCOSE [id number] 18:07:00 Test Item Value Reference Range Comments POC-GLUCOSE METER (BEAKER) 159 mg/dL 70-110 TESTED AT [address] (test qouc=1007) [place] [id number] POCT-GLUCOSE [id number] 11:58:00 Test Item Value Reference Range Comments POC-GLUCOSE METER (BEAKER) 153 mg/dL 70-110 TESTED AT [address] (test gpjv=0817) [facility] [address] CBC W/PLT COUNT & AUTO [id number] 09:13:00 Test Item Value Reference Range Comments WHITE BLOOD CELL COUNT (BEAKER) (test acvx=319) 7.7 K/ L 4.0-10.0 RED BLOOD CELL COUNT (BEAKER) (test hrwo=249) 2.97 M/ L 4.20-5.80 HEMOGLOBIN (BEAKER) (test yjye=375) 9.7 GM/DL 13.0-16.8 HEMATOCRIT (BEAKER) (test hpxx=599) 29.2 % 40.0-50.0 MEAN CORPUSCULAR VOLUME (BEAKER) (test bdqz=150) 98.1 fL 82.0-98.0 MEAN CORPUSCULAR HEMOGLOBIN (BEAKER) (test 32.6 pg 27.0-33.0 mfta=295) MEAN CORPUSCULAR HEMOGLOBIN CONC (BEAKER) (test 33.2 GM/DL 32.0-36.0 nbrh=580) RED CELL DISTRIBUTION WIDTH (BEAKER) (test 13.7 % 10.3-14.2 dvll=498) PLATELET COUNT (BEAKER) (test mcto=020) 25 K/CU MM 150-430 MEAN PLATELET VOLUME (BEAKER) (test gnbz=845) 10.2 fL 6.5-10.5 NUCLEATED RED BLOOD CELLS (BEAKER) (test 0 /100 WBC 0-0 myre=263) NEUTROPHILS RELATIVE PERCENT (BEAKER) (test 86 % ykul=020) LYMPHOCYTES RELATIVE PERCENT (BEAKER) (test 4 % eykf=970) MONOCYTES RELATIVE PERCENT (BEAKER) (test 10 % bwph=427) EOSINOPHILS RELATIVE PERCENT (BEAKER) (test 0 % iekj=833) BASOPHILS RELATIVE PERCENT (BEAKER) (test 0 % euzm=217) NEUTROPHILS ABSOLUTE COUNT (BEAKER) (test 6.61 K/ L 1.80-8.00 exlt=798) LYMPHOCYTES ABSOLUTE COUNT (BEAKER) (test 0.29 K/ L 1.48-4.50 hady=516) MONOCYTES ABSOLUTE COUNT (BEAKER) (test pjbp=430) 0.77 K/ L 0.00-1.30 EOSINOPHILS ABSOLUTE COUNT (BEAKER) (test 0.01 K/ L 0.00-0.50 cbwa=663) BASOPHILS ABSOLUTE COUNT (BEAKER) (test uiuo=160) 0.00 K/ L 0.00-0.20 0.00POCT-GLUCOSE [id number] 08:17:00 Test Item Value Reference Range Comments POC-GLUCOSE METER (BEAKER) 110 mg/dL 70-110 TESTED AT [facility] [address] [facility] (test cnky=8152) [facility] [address] BASIC METABOLIC [id number] 07:06:00 Test Item Value Reference Range Comments SODIUM (BEAKER) (test 135 meq/L 136-145 whje=226) POTASSIUM (BEAKER) (test 4.6 meq/L 3.5-5.1 svzg=107) CHLORIDE (BEAKER) (test 101 meq/L 98-107 altu=591) CO2 (BEAKER) (test 26 meq/L 22-29 vsyf=872) BLOOD UREA NITROGEN 57 mg/dL 7-21 (BEAKER) (test wdvx=017) CREATININE (BEAKER) (test 1.69 mg/dL 0.57-1.25 lvzu=748) GLUCOSE RANDOM (BEAKER) 121 mg/dL 70-105 (test gnjc=259) CALCIUM (BEAKER) (test 8.3 mg/dL 8.4-10.2 fhfw=867) EGFR (BEAKER) (test mL/min/1.73 sq m INSUFFICIENT CLINICAL DATA khxd=6119) TO CALCULATE ESTIMATED GFR. [id number] 06:52:00 Test Item Value Reference Range Comments FIBRINOGEN LEVEL (BEAKER) (test wozc=665) 203 mg/dl 225-434 [id number] 06:52:00 Test Item Value Reference Range Comments PARTIAL THROMBOPLASTIN TIME (BEAKER) (test 32.6 seconds 22.5-36.0 afyx=890) PROTHROMBIN [id number] 06:51:00 Test Item Value Reference Range Comments PROTIME (BEAKER) (test digi=382) 19.8 seconds 11.7-14.7 INR (BEAKER) (test tvzv=757) 1.7 <=5.9 RECOMMENDED COUMADIN/WARFARIN INR THERAPY RANGESSTANDARD DOSE: 2.0 - 3.0 Includes: PROPHYLAXIS forvenous thrombosis, systemic embolization; TREATMENT for venous thrombosis and/or pulmonary embolus.HIGH RISK: Target INR is 2.5-3.5 for patients with mechanical heart valves.POCT-GLUCOSE [id number] 21:51:00 Test Item Value Reference Range Comments POC-GLUCOSE METER (BEAKER) 157 mg/dL 70-110 TESTED AT [address] (test ycqo=3668) [place] [address] POCT-GLUCOSE [id number] 16:53:00 Test Item Value Reference Range Comments POC-GLUCOSE METER (BEAKER) 154 mg/dL 70-110 TESTED AT [address] (test sbqs=5123) [place] [address] POCT-GLUCOSE [id number] 12:31:00 Test Item Value Reference Range Comments POC-GLUCOSE METER (BEAKER) 190 mg/dL 70-110 TESTED AT [address] (test kkqm=1823) [place] [address] CBC W/PLT COUNT & AUTO [id number] 09:48:00 Test Item Value Reference Range Comments WHITE BLOOD CELL COUNT (BEAKER) (test fhwk=386) 4.1 K/ L 4.0-10.0 RED BLOOD CELL COUNT (BEAKER) (test qrid=177) 3.24 M/ L 4.20-5.80 HEMOGLOBIN (BEAKER) (test kvlk=640) 9.8 GM/DL 13.0-16.8 HEMATOCRIT (BEAKER) (test urko=804) 32.2 % 40.0-50.0 MEAN CORPUSCULAR VOLUME (BEAKER) (test ggbz=007) 99.5 fL 82.0-98.0 MEAN CORPUSCULAR HEMOGLOBIN (BEAKER) (test 30.4 pg 27.0-33.0 uhqw=497) MEAN CORPUSCULAR HEMOGLOBIN CONC (BEAKER) (test 30.5 GM/DL 32.0-36.0 panl=674) RED CELL DISTRIBUTION WIDTH (BEAKER) (test 13.8 % 10.3-14.2 psoc=963) PLATELET COUNT (BEAKER) (test epxr=655) 28 K/CU MM 150-430 MEAN PLATELET VOLUME (BEAKER) (test nftq=963) 9.7 fL 6.5-10.5 NUCLEATED RED BLOOD CELLS (BEAKER) (test 0 /100 WBC 0-0 iyrn=126) NEUTROPHILS RELATIVE PERCENT (BEAKER) (test 90 % vfsr=679) LYMPHOCYTES RELATIVE PERCENT (BEAKER) (test 6 % obfb=553) MONOCYTES RELATIVE PERCENT (BEAKER) (test 3 % jklo=831) EOSINOPHILS RELATIVE PERCENT (BEAKER) (test 0 % dmmb=311) BASOPHILS RELATIVE PERCENT (BEAKER) (test 0 % bvdf=183) NEUTROPHILS ABSOLUTE COUNT (BEAKER) (test 3.64 K/ L 1.80-8.00 lvhn=082) LYMPHOCYTES ABSOLUTE COUNT (BEAKER) (test 0.26 K/ L 1.48-4.50 qzed=498) MONOCYTES ABSOLUTE COUNT (BEAKER) (test wmxu=539) 0.14 K/ L 0.00-1.30 EOSINOPHILS ABSOLUTE COUNT (BEAKER) (test 0.01 K/ L 0.00-0.50 rbug=481) BASOPHILS ABSOLUTE COUNT (BEAKER) (test ymfo=500) 0.01 K/ L 0.00-0.20 0.00POCT-GLUCOSE [id number] 08:39:00 Test Item Value Reference Range Comments POC-GLUCOSE METER (BEAKER) 146 mg/dL 70-110 TESTED AT [facility] [address] [facility] (test thgm=3874) [facility] [address] HEMOGLOBIN AND [id number] 06:53:00 Test Item Value Reference Range Comments HEMOGLOBIN (BEAKER) (test mtky=693) 9.6 GM/DL 13.0-16.8 HEMATOCRIT (BEAKER) (test xubk=035) 30.0 % 40.0-50.0 HEPATITIS PANEL, [id number] 05:20:00 Test Item Value Reference Range Comments HEPATITIS A IGM ANTIBODY (BEAKER) (test Nonreactive Nonreactive pajl=027) HEPATITIS B CORE IGM ANTIBODY (BEAKER) (test Nonreactive Nonreactive bdaz=983) HEPATITIS C ANTIBODY (BEAKER) (test ycug=104) Nonreactive Nonreactive HEPATITIS B SURFACE ANTIGEN (2) (BEAKER) (test Nonreactive Nonreactive punm=2264) ALPHA FETOPROTEIN (AFP), TUMOR [id number] 05:20:00 Test Item Value Reference Range Comments ALPHA-FETOPROTEIN (BEAKER) (test cykf=5057) < ng/mL <10.0 Effective 05/09/2014: Reference Range ChangeNew: <10.0 Previous: 0.0- [id number] 05:10:00 Test Item Value Reference Range Comments PREALBUMIN (BEAKER) (test 9 mg/dL 14-45 Specimen slightly hemolyzed bqzl=114) IMMUNOGLOBULIN G (IGG)2016-09-09 05:10:00 Test Item Value Reference Range Comments IMMUNOGLOBULIN G (IGG) (BEAKER) (test jlyq=720) 2488 mg/dL 540-1822 BASIC METABOLIC [id number] 04:56:00 Test Item Value Reference Range Comments SODIUM (BEAKER) (test 133 meq/L 136-145 xydw=085) POTASSIUM (BEAKER) (test 5.2 meq/L 3.5-5.1 jhmi=460) CHLORIDE (BEAKER) (test 99 meq/L 98-107 zwef=480) CO2 (BEAKER) (test 25 meq/L 22-29 hulx=078) BLOOD UREA NITROGEN 47 mg/dL 7-21 (BEAKER) (test pvmb=235) CREATININE (BEAKER) (test 2.09 mg/dL 0.57-1.25 qggc=148) GLUCOSE RANDOM (BEAKER) 128 mg/dL 70-105 (test kyqd=067) CALCIUM (BEAKER) (test 8.3 mg/dL 8.4-10.2 emnb=500) EGFR (BEAKER) (test mL/min/1.73 sq m INSUFFICIENT CLINICAL DATA khlx=2047) TO CALCULATE ESTIMATED GFR. [id number] 04:50:00 Test Item Value Reference Range Comments PARTIAL THROMBOPLASTIN TIME (BEAKER) (test 34.4 seconds 22.5-36.0 fefr=763) PROTHROMBIN TIME/[id number] 04:49:00 Test Item Value Reference Range Comments PROTIME (BEAKER) (test dujd=812) 18.4 seconds 11.7-14.7 INR (BEAKER) (test drhu=600) 1.5 <=5.9 RECOMMENDED COUMADIN/WARFARIN INR THERAPY RANGESSTANDARD DOSE: 2.0 - 3.0 Includes: PROPHYLAXIS forvenous thrombosis, systemic embolization; TREATMENT for venous thrombosis and/or pulmonary embolus.HIGH RISK: Target INR is 2.5-3.5 for patients with mechanical heart valves.[id number] 04:49:00 Test Item Value Reference Range Comments FIBRINOGEN LEVEL (BEAKER) (test urng=559) 265 mg/dl 225-434 HEMOGLOBIN AND [id number] 01:12:00 Test Item Value Reference Range Comments HEMOGLOBIN (BEAKER) (test mtwc=014) 9.8 GM/DL 13.0-16.8 HEMATOCRIT (BEAKER) (test fxet=670) 30.6 % 40.0-50.0 POCT-GLUCOSE [id number] 21:55:00 Test Item Value Reference Range Comments POC-GLUCOSE METER (BEAKER) 108 mg/dL 70-110 TESTED AT [facility] [address] [facility] (test ocmy=3956) [facility] [address] BODY FLUID CELL COUNT WITH [id number] 19:27:00 Test Item Value Reference Range Comments APPEARANCE FLUID (BEAKER) (test xxag=289) Cloudy Clear COLOR FLUID (BEAKER) (test hvti=386) Niru Colorless, Straw RBC FLUID (BEAKER) (test ufop=032) 6800 /cu mm <=1 ADJUSTED WBC FLUID (BEAKER) (test vjap=8296) 283 /cu mm <=5 LINING CELLS (BEAKER) (test vvbz=7865) 0 /cu mm <=1 NEUTROPHILS FLUID (BEAKER) (test tkjv=3074) 6 % LYMPHS FLUID (BEAKER) (test kggu=989) 12 % MONO/MACROPHAGE FLUID (BEAKER) (test oikg=546) 82 % EOSINOPHILS FLUID (BEAKER) (test goff=988) 0 % BASO FLUID (BEAKER) (test awbr=579) 0 % CONTAINER BODY FLUID (BEAKER) (test ozsz=6921) EDTA Tube LACTATE DEHYDROGENASE (LDH), BODY [id number] 18:24:00 Test Item Value Reference Range Comments LACTATE DEHYDROGENASE FLUID (BEAKER) (test ltmw=096) 118 U/L Absence of reference range indicates that normals have not been defined.Assay performance has not been validated for this type of specimen.POCT-GLUCOSE [id number] 18:18:00 Test Item Value Reference Range Comments POC-GLUCOSE METER (BEAKER) 137 mg/dL 70-110 TESTED AT [facility] [address] [facility] (test frvd=9587) [facility] [address] ALBUMIN, BODY [id number] 18:06:00 Test Item Value Reference Range Comments ALBUMIN FLUID (BEAKER) (test gjvy=234) 1.7 gm/dL Reference Range: No Normals Assay performance has not been validated for this type of specimen.[facility] (DRVV)2016-09-08 16:28:00 Test Item Value Reference Range Comments PROTIME (BEAKER) (test shav=959) 18.3 seconds 11.7-14.7 INR (BEAKER) (test emol=273) 1.6 <=5.9 PARTIAL THROMBOPLASTIN TIME 36.3 seconds 22.5-36.0 (BEAKER) (test usyz=252) DRVV INTERPRETATION (BEAKER) Normal DRVV Results (test ohsi=9793) FDLE-ZEQUMFXKCCW-786 (BEAKER) Carolina Mahan MD (test cnee=5396) (electronic signature) DRVV SCREEN RATIO (BEAKER) (test 1.14 <1.20 crfg=5292) Effective 10/25/2013: Test Method ChangeDRVV Screen Ratio, DRVV 1/1 Screen Ratio, DRVV Confirm Ratio,DRVV Normalized Ratio Reference Range: <1.2Protime Reference Range ChangeNew: 11.7-14.7 Previous: 9.8-12.0PTT Reference Range ChangeNew: 22.5-36.0 Previous: 25.8-34.5ALPHA FETOPROTEIN (AFP), TUMOR [id number] 16:23:00 Test Item Value Reference Range Comments ALPHA-FETOPROTEIN (BEAKER) (test zstj=8260) 2.0 ng/mL <10.0 Effective 05/09/2014: Reference Range ChangeNew: <10.0 Previous: 0.0- 8.0CBC W/PLT COUNT & AUTO [id number] 15:34:00 Test Item Value Reference Range Comments WHITE BLOOD CELL COUNT (BEAKER) (test hrhf=964) 5.4 K/ L 4.0-10.0 RED BLOOD CELL COUNT (BEAKER) (test npap=343) 3.02 M/ L 4.20-5.80 HEMOGLOBIN (BEAKER) (test rmix=978) 9.8 GM/DL 13.0-16.8 HEMATOCRIT (BEAKER) (test fnrc=506) 30.0 % 40.0-50.0 MEAN CORPUSCULAR VOLUME (BEAKER) (test chev=280) 99.4 fL 82.0-98.0 MEAN CORPUSCULAR HEMOGLOBIN (BEAKER) (test 32.4 pg 27.0-33.0 dfle=970) MEAN CORPUSCULAR HEMOGLOBIN CONC (BEAKER) (test 32.6 GM/DL 32.0-36.0 vmvx=330) RED CELL DISTRIBUTION WIDTH (BEAKER) (test 13.6 % 10.3-14.2 goyi=543) PLATELET COUNT (BEAKER) (test fjdo=199) 46 K/CU MM 150-430 MEAN PLATELET VOLUME (BEAKER) (test sobd=275) 7.7 fL 6.5-10.5 NUCLEATED RED BLOOD CELLS (BEAKER) (test 0 /100 WBC 0-0 ylew=834) NEUTROPHILS RELATIVE PERCENT (BEAKER) (test 78 % ljju=218) LYMPHOCYTES RELATIVE PERCENT (BEAKER) (test 6 % ixhc=871) MONOCYTES RELATIVE PERCENT (BEAKER) (test 14 % vsiv=834) EOSINOPHILS RELATIVE PERCENT (BEAKER) (test 2 % kejt=020) BASOPHILS RELATIVE PERCENT (BEAKER) (test 0 % xhib=854) NEUTROPHILS ABSOLUTE COUNT (BEAKER) (test 4.20 K/ L 1.80-8.00 xxff=681) LYMPHOCYTES ABSOLUTE COUNT (BEAKER) (test 0.33 K/ L 1.48-4.50 kgnl=170) MONOCYTES ABSOLUTE COUNT (BEAKER) (test wsmk=981) 0.74 K/ L 0.00-1.30 EOSINOPHILS ABSOLUTE COUNT (BEAKER) (test 0.09 K/ L 0.00-0.50 azpm=010) BASOPHILS ABSOLUTE COUNT (BEAKER) (test iktk=649) 0.02 K/ L 0.00-0.20 0.00ANTI-NUCLEAR ANTIBODY (ANNEL)2016-09-08 15:18:00 Test Item Value Reference Range Comments ANTI-NUCLEAR ANTIBODY (ANNEL) (BEAKER) (test Negative Negative heli=894) EQUAL MIX, NORMAL [id number] 14:55:00 Test Item Value Reference Range Comments PROTIME (BEAKER) (test xmwf=050) 18.3 seconds 11.7-14.7 PARTIAL THROMBOPLASTIN TIME (BEAKER) (test 36.3 seconds 22.5-36.0 vrai=078) PT 1/1 MIX (BEAKER) (test qnvb=8601) 14.6 SECS 11.7-14.7 PTT 1/1 MIX (BEAKER) (test ewqo=5132) 33.9 SECS 22.5-36.0 THROMBIN [id number] 14:55:00 Test Item Value Reference Range Comments THROMBIN TIME (BEAKER) (test qdry=706) 17.4 secs 13.8-20.0 IMMUNOFIXATION ELECTROPHORESIS (TEJAL)2016-09-08 13:53:00 Test Item Value Reference Range Comments IMMUNOGLOBULIN G (IGG) (BEAKER) 2100 mg/dL 540-1822 (test qkxj=373) IMMUNOGLOBULIN A (IGA) (BEAKER) 450 mg/dL 63-484 (test vvnm=548) IMMUNOGLOBULIN M (IGM) (BEAKER) 126 mg/dL 22-293 (test ahnh=348) SERUM TEJAL ID (BEAKER) (test No monoclonal bands detected. cgxr=7139) Polyclonal distribution of normal immunoglobulins. [id number]-[id number]-[id number] ([facility]) Carolina Mahan MD (test qhyz=2420) (electronic signature) PROTEIN ELECTROPHORESIS, [id number] 13:27:00 Test Item Value Reference Range Comments ALBUMIN FRACTION (BEAKER) 3.2 g/dL 3.5-5.5 (test xnyi=517) ALPHA 1 FRACTION (BEAKER) 0.3 g/dL 0.2-0.4 (test blrh=045) ALPHA 2 FRACTION (BEAKER) 0.5 g/dL 0.5-0.9 (test dyas=233) BETA FRACTION (BEAKER) (test 1.0 g/dL 0.6-1.1 fynk=646) GAMMA GLOBULIN FRACTION 2.0 g/dL 0.7-1.7 (BEAKER) (test xovw=667) INTERPRETATION-119 (BEAKER) Slight polyclonal increase in (test nrtn=8942) gamma globulins, suggesting chronic inflammatory state. No monoclonal bands detected. [id number] Carolina Mahan MD (BEAKER) (test pazy=7047) (electronic signature) PROTEIN TOTAL SERUM, SPEP 7.0 gm/dL 6.0-8.3 (BEAKER) (test wmfn=1668) POCT-GLUCOSE [id number] 12:17:00 Test Item Value Reference Range Comments POC-GLUCOSE METER (BEAKER) 117 mg/dL 70-110 TESTED AT [facility] [address] [facility] (test npko=2596) [facility] [address] CARDIOLIPIN ANTIBODIES, IGG AND [id number] 12:04:00 Test Item Value Reference Range Comments ANTICARDIOLIPIN IGG ANTIBODY (BEAKER) (test < GPL lhgj=062) ANTICARDIOLIPIN IGM ANTIBODY (BEAKER) (test 0.9 MPL zbks=325) Anticardiolipin IgG Result Interpretation: NEG: <20 GPL; U/ml POS: & gt;/=20 GPL; U/mlAnticardiolipin IgM Result Interpretation: NEG: <20 MPL ; U/ml POS: >/=20 MPL; U/mlOSMOLALITY, [id number] 10:20:00 Test Item Value Reference Range Comments OSMOLALITY URINE (BEAKER) (test qzix=468) 313 mOsm/kg 40-1400 EOSINOPHIL SMEAR, [id number] 10:10:00 Test Item Value Reference Range Comments EOSINOPHIL SMEAR, URINE (BEAKER) Rare EOS=less than 5% WBCs No EOS seen (test fahl=4573) seen are EOS CREATININE, RANDOM [id number] 08:12:00 Test Item Value Reference Range Comments CREATININE URINE (BEAKER) (test fwye=002) 136.1 mg/dL Reference Range: No NormalsPROTEIN, RANDOM [id number] 08:12:00 Test Item Value Reference Range Comments PROTEIN, URINE (BEAKER) (test qdvz=2445) 157 mg/dL 0-14 SODIUM, RANDOM [id number] 08:12:00 Test Item Value Reference Range Comments SODIUM URINE (BEAKER) (test mgjg=851) 53 meq/L Reference Range: No NormalsURINALYSIS W/ [id number] 08:12:00 Test Item Value Reference Range Comments COLOR (BEAKER) (test ccfr=539) Light Yellow CLARITY (BEAKER) (test natt=429) Hazy SPECIFIC GRAVITY UA (BEAKER) (test bmyg=827) 1.005 1.001-1.035 PH UA (BEAKER) (test xbir=248) 5.0 5.0-8.0 PROTEIN UA (BEAKER) (test uvby=555) Negative Negative GLUCOSE UA (BEAKER) (test cqme=377) 70 mg/dL Negative KETONES UA (BEAKER) (test xxdy=742) Negative Negative BILIRUBIN UA (BEAKER) (test jykl=753) Negative Negative BLOOD UA (BEAKER) (test zfxw=453) Large Negative NITRITE UA (BEAKER) (test njjp=407) Negative Negative LEUKOCYTE ESTERASE UA (BEAKER) (test kdib=515) Trace Negative UROBILINOGEN UA (BEAKER) (test kuio=124) 0.2 mg/dL 0.2-1.0 RBC UA (BEAKER) (test fhow=828) > /HPF WBC UA (BEAKER) (test yhkd=334) 117 /HPF HYALINE CASTS (BEAKER) (test zdys=494) 32 /LPF YEAST (BEAKER) (test pbbw=8341) Many SOURCE(BEAKER) (test cfic=1921) BASIC METABOLIC [id number] 04:45:00 Test Item Value Reference Range Comments SODIUM (BEAKER) (test 133 meq/L 136-145 xlie=863) POTASSIUM (BEAKER) (test 5.0 meq/L 3.5-5.1 yowd=290) CHLORIDE (BEAKER) (test 99 meq/L 98-107 tvja=258) CO2 (BEAKER) (test 23 meq/L 22-29 rlzp=134) BLOOD UREA NITROGEN 44 mg/dL 7-21 (BEAKER) (test rzdj=089) CREATININE (BEAKER) (test 2.91 mg/dL 0.57-1.25 gymh=995) GLUCOSE RANDOM (BEAKER) 98 mg/dL 70-105 (test djwi=270) CALCIUM (BEAKER) (test 8.3 mg/dL 8.4-10.2 lgtv=319) EGFR (BEAKER) (test mL/min/1.73 sq m INSUFFICIENT CLINICAL DATA zgvu=4524) TO CALCULATE ESTIMATED GFR. PROTHROMBIN [id number] 04:30:00 Test Item Value Reference Range Comments PROTIME (BEAKER) (test uodn=407) 21.7 seconds 11.7-14.7 INR (BEAKER) (test vyjk=646) 1.9 <=5.9 RECOMMENDED COUMADIN/WARFARIN INR THERAPY RANGESSTANDARD DOSE: 2.0 - 3.0 Includes: PROPHYLAXIS forvenous thrombosis, systemic embolization; TREATMENT for venous thrombosis and/or pulmonary embolus.HIGH RISK: Target INR is 2.5-3.5 for patients with mechanical heart valves.[id number] 04:30:00 Test Item Value Reference Range Comments PARTIAL THROMBOPLASTIN TIME (BEAKER) (test 35.9 seconds 22.5-36.0 blfg=939) [id number] 04:30:00 Test Item Value Reference Range Comments FIBRINOGEN LEVEL (BEAKER) (test vojr=101) 216 mg/dl 225-434 CBC W/PLT COUNT & AUTO [id number] 04:29:00 Test Item Value Reference Range Comments WHITE BLOOD CELL COUNT (BEAKER) (test ckrg=298) 4.9 K/ L 4.0-10.0 RED BLOOD CELL COUNT (BEAKER) (test nsjg=105) 3.05 M/ L 4.20-5.80 HEMOGLOBIN (BEAKER) (test akrj=036) 10.0 GM/DL 13.0-16.8 HEMATOCRIT (BEAKER) (test nijf=690) 30.8 % 40.0-50.0 MEAN CORPUSCULAR VOLUME (BEAKER) (test cogl=110) 101.0 fL 82.0-98.0 MEAN CORPUSCULAR HEMOGLOBIN (BEAKER) (test 32.7 pg 27.0-33.0 hzrh=234) MEAN CORPUSCULAR HEMOGLOBIN CONC (BEAKER) (test 32.4 GM/DL 32.0-36.0 euhx=760) RED CELL DISTRIBUTION WIDTH (BEAKER) (test 14.3 % 10.3-14.2 pukt=558) PLATELET COUNT (BEAKER) (test qevk=472) 13 K/CU MM 150-430 MEAN PLATELET VOLUME (BEAKER) (test ntii=790) 11.2 fL 6.5-10.5 NUCLEATED RED BLOOD CELLS (BEAKER) (test 0 /100 WBC 0-0 ftpw=637) NEUTROPHILS RELATIVE PERCENT (BEAKER) (test 75 % voga=245) LYMPHOCYTES RELATIVE PERCENT (BEAKER) (test 8 % pbeh=800) MONOCYTES RELATIVE PERCENT (BEAKER) (test 14 % hasr=305) EOSINOPHILS RELATIVE PERCENT (BEAKER) (test 3 % gcfj=770) BASOPHILS RELATIVE PERCENT (BEAKER) (test 0 % vrxu=697) NEUTROPHILS ABSOLUTE COUNT (BEAKER) (test 3.66 K/ L 1.80-8.00 mydw=674) LYMPHOCYTES ABSOLUTE COUNT (BEAKER) (test 0.41 K/ L 1.48-4.50 ndys=184) MONOCYTES ABSOLUTE COUNT (BEAKER) (test dyka=496) 0.70 K/ L 0.00-1.30 EOSINOPHILS ABSOLUTE COUNT (BEAKER) (test 0.13 K/ L 0.00-0.50 pqyj=234) BASOPHILS ABSOLUTE COUNT (BEAKER) (test hrvp=888) 0.01 K/ L 0.00-0.20 0.00HEPATITIS A ANTIBODY, [id number] 01:44:00 Test Item Value Reference Range Comments HEPATITIS A IGG ANTIBODY (BEAKER) (test vbzu=8947) Reactive Nonreactive HEPATITIS B SURFACE [id number] 01:41:00 Test Item Value Reference Range Comments HEPATITIS B SURFACE ANTIGEN (2) (BEAKER) (test Nonreactive Nonreactive czou=3876) HEPATITIS B SURFACE [id number] 01:41:00 Test Item Value Reference Range Comments HEPATITIS B SURFACE ANTIBODY (BEAKER) (test 205.5 mIU/mL <8.0 qrbq=573) HEPATITIS C [id number] 01:41:00 Test Item Value Reference Range Comments HEPATITIS C ANTIBODY (BEAKER) (test okst=288) Nonreactive Nonreactive HIV-1 ANTIGEN WITH HIV-1/2 [id number] 01:41:00 Test Item Value Reference Range Comments HIV-1 ANTIGEN WITH HIV 1\T\2 ANTIBODY (2) Nonreactive Nonreactive (BEAKER) (test sask=6287) POCT-GLUCOSE [id number] 22:22:00 Test Item Value Reference Range Comments POC-GLUCOSE METER (BEAKER) 106 mg/dL 70-110 TESTED AT [facility] [address] [facility] (test loii=0003) [place] [address] CBC W/PLT COUNT & AUTO [id number] 18:31:00 Test Item Value Reference Range Comments WHITE BLOOD CELL COUNT (BEAKER) (test hjam=474) 5.4 K/ L 4.0-10.0 RED BLOOD CELL COUNT (BEAKER) (test gyrv=840) 3.16 M/ L 4.20-5.80 HEMOGLOBIN (BEAKER) (test iypm=167) 10.3 GM/DL 13.0-16.8 HEMATOCRIT (BEAKER) (test hhbf=919) 32.1 % 40.0-50.0 MEAN CORPUSCULAR VOLUME (BEAKER) (test vwib=142) 102.0 fL 82.0-98.0 MEAN CORPUSCULAR HEMOGLOBIN (BEAKER) (test 32.5 pg 27.0-33.0 yxqy=709) MEAN CORPUSCULAR HEMOGLOBIN CONC (BEAKER) (test 32.0 GM/DL 32.0-36.0 shsb=529) RED CELL DISTRIBUTION WIDTH (BEAKER) (test 14.2 % 10.3-14.2 bivb=216) PLATELET COUNT (BEAKER) (test pphn=475) 26 K/CU MM 150-430 MEAN PLATELET VOLUME (BEAKER) (test vryk=008) 8.7 fL 6.5-10.5 NUCLEATED RED BLOOD CELLS (BEAKER) (test 0 /100 WBC 0-0 iqww=196) NEUTROPHILS RELATIVE PERCENT (BEAKER) (test 81 % evhw=495) LYMPHOCYTES RELATIVE PERCENT (BEAKER) (test 5 % njsv=977) MONOCYTES RELATIVE PERCENT (BEAKER) (test 11 % wcyj=613) EOSINOPHILS RELATIVE PERCENT (BEAKER) (test 3 % zgpe=774) BASOPHILS RELATIVE PERCENT (BEAKER) (test 0 % mdsu=148) NEUTROPHILS ABSOLUTE COUNT (BEAKER) (test 4.37 K/ L 1.80-8.00 owkk=314) LYMPHOCYTES ABSOLUTE COUNT (BEAKER) (test 0.29 K/ L 1.48-4.50 ncni=800) MONOCYTES ABSOLUTE COUNT (BEAKER) (test vcjj=430) 0.60 K/ L 0.00-1.30 EOSINOPHILS ABSOLUTE COUNT (BEAKER) (test 0.15 K/ L 0.00-0.50 cpql=966) BASOPHILS ABSOLUTE COUNT (BEAKER) (test dbyu=600) 0.01 K/ L 0.00-0.20 0.00POCT-GLUCOSE [id number] 18:27:00 Test Item Value Reference Range Comments POC-GLUCOSE METER (BEAKER) 112 mg/dL 70-110 TESTED AT [facility] [address] [facility] (test posh=7785) [facility] [address] HEPATIC FUNCTION [id number] 16:29:00 Test Item Value Reference Range Comments TOTAL PROTEIN (BEAKER) (test zfir=090) 7.7 gm/dL 6.0-8.3 ALBUMIN (BEAKER) (test bpum=8679) 3.2 g/dL 3.5-5.0 BILIRUBIN TOTAL (BEAKER) (test pvti=227) 1.0 mg/dL 0.2-1.2 BILIRUBIN DIRECT (BEAKER) (test ggdf=307) 0.7 mg/dL 0.1-0.5 ALKALINE PHOSPHATASE (BEAKER) (test fghx=893) 148 U/L 40-150 AST (SGOT) (BEAKER) (test zgtm=114) 26 U/L 5-34 ALT (SGPT) (BEAKER) (test rubb=446) 12 U/L 6-55 CBC (HEMOGRAM ONLY)2016-09-07 15:34:00 Test Item Value Reference Range Comments WHITE BLOOD CELL COUNT (BEAKER) (test kzpr=085) 4.3 K/ L 4.0-10.0 RED BLOOD CELL COUNT (BEAKER) (test bfkh=659) 3.26 M/ L 4.20-5.80 HEMOGLOBIN (BEAKER) (test gnnw=376) 10.5 GM/DL 13.0-16.8 HEMATOCRIT (BEAKER) (test gdih=471) 33.0 % 40.0-50.0 MEAN CORPUSCULAR VOLUME (BEAKER) (test awtu=811) 102.0 fL 82.0-98.0 MEAN CORPUSCULAR HEMOGLOBIN (BEAKER) (test 32.3 pg 27.0-33.0 gsez=367) MEAN CORPUSCULAR HEMOGLOBIN CONC (BEAKER) (test 31.8 GM/DL 32.0-36.0 npfg=193) RED CELL DISTRIBUTION WIDTH (BEAKER) (test 13.7 % 10.3-14.2 wrfg=026) PLATELET COUNT (BEAKER) (test cmov=530) 9 K/CU MM 150-430 MEAN PLATELET VOLUME (BEAKER) (test jtby=298) 12.6 fL 6.5-10.5 NUCLEATED RED BLOOD CELLS (BEAKER) (test 0 /100 WBC 0-0 ppni=055) [id number] 14:58:00 Test Item Value Reference Range Comments PROSTATE SPECIFIC ANTIGEN (BEAKER) (test pejj=376) 0.2 ng/mL 0.0-4.0 CHLORIDE, RANDOM [id number] 14:10:00 Test Item Value Reference Range Comments CHLORIDE URINE (BEAKER) (test clek=579) 27 meq/L Reference Range: No NormalsCREATININE, RANDOM [id number] 14:10:00 Test Item Value Reference Range Comments CREATININE URINE (BEAKER) (test pnyq=993) 192.5 mg/dL Reference Range: No NormalsPROTEIN, RANDOM [id number] 14:10:00 Test Item Value Reference Range Comments PROTEIN, URINE (BEAKER) (test jwrt=4990) 72 mg/dL 0-14 SODIUM, RANDOM [id number] 14:10:00 Test Item Value Reference Range Comments SODIUM URINE (BEAKER) (test bylf=627) 28 meq/L Reference Range: No NormalsOSMOLALITY, [id number] 13:51:00 Test Item Value Reference Range Comments OSMOLALITY URINE (BEAKER) (test jcup=757) 307 mOsm/kg 40-1400 [id number] 05:52:00 Test Item Value Reference Range Comments FERRITIN (BEAKER) (test lpqg=639) 159 ng/mL 5-275 Effective 05/09/2014: Reference Range ChangeNew: Male 5-275 Previous: Male 22-322 Female 5-275 Female 10-291VITAMIN B12 AND [id number] 05:52:00 Test Item Value Reference Range Comments VITAMIN B12 (BEAKER) (test adcp=532) 1060 pg/mL 213-816 FOLATE (BEAKER) (test fsas=385) 6.4 ng/mL >=7.0 Effective 05/09/2014: Folate Reference Range ChangeNew: >=7.0 Previous: & gt;=5.4IRON, TIBC, % SAT. (WITHOUT FERRITIN)2016-09-07 05:28:00 Test Item Value Reference Range Comments IRON (BEAKER) (test hzxo=726) 48 ug/dL 40-160 TOTAL IRON BINDING CAPACITY (BEAKER) (test 340 ug/dL 250-450 ovso=532) IRON % SATURATION (2) (BEAKER) (test wdua=5436) 14 % 20-55 BASIC METABOLIC [id number] 04:51:00 Test Item Value Reference Range Comments SODIUM (BEAKER) (test 135 meq/L 136-145 mjyu=923) POTASSIUM (BEAKER) (test 5.3 meq/L 3.5-5.1 pwrz=808) CHLORIDE (BEAKER) (test 101 meq/L 98-107 jgby=103) CO2 (BEAKER) (test 23 meq/L 22-29 pmja=032) BLOOD UREA NITROGEN 38 mg/dL 7-21 (BEAKER) (test qnes=534) CREATININE (BEAKER) (test 2.76 mg/dL 0.57-1.25 btog=158) GLUCOSE RANDOM (BEAKER) 109 mg/dL 70-105 (test awgl=931) CALCIUM (BEAKER) (test 8.2 mg/dL 8.4-10.2 lizj=704) EGFR (BEAKER) (test mL/min/1.73 sq m INSUFFICIENT CLINICAL DATA zuss=9450) TO CALCULATE ESTIMATED GFR. CBC W/PLT COUNT & AUTO [id number] 04:28:00 Test Item Value Reference Range Comments WHITE BLOOD CELL COUNT (BEAKER) (test xugh=945) 4.6 K/ L 4.0-10.0 RED BLOOD CELL COUNT (BEAKER) (test ouge=088) 3.08 M/ L 4.20-5.80 HEMOGLOBIN (BEAKER) (test orem=929) 10.0 GM/DL 13.0-16.8 HEMATOCRIT (BEAKER) (test quhk=982) 31.4 % 40.0-50.0 MEAN CORPUSCULAR VOLUME (BEAKER) (test mfbk=620) 102.0 fL 82.0-98.0 MEAN CORPUSCULAR HEMOGLOBIN (BEAKER) (test 32.5 pg 27.0-33.0 xvea=849) MEAN CORPUSCULAR HEMOGLOBIN CONC (BEAKER) (test 31.9 GM/DL 32.0-36.0 nbsu=832) RED CELL DISTRIBUTION WIDTH (BEAKER) (test 13.6 % 10.3-14.2 ilpf=493) PLATELET COUNT (BEAKER) (test ligu=975) 12 K/CU MM 150-430 MEAN PLATELET VOLUME (BEAKER) (test kwwu=466) 11.8 fL 6.5-10.5 NUCLEATED RED BLOOD CELLS (BEAKER) (test 0 /100 WBC 0-0 eanf=325) NEUTROPHILS RELATIVE PERCENT (BEAKER) (test 70 % oldd=225) LYMPHOCYTES RELATIVE PERCENT (BEAKER) (test 11 % wyom=438) MONOCYTES RELATIVE PERCENT (BEAKER) (test 15 % wfpv=916) EOSINOPHILS RELATIVE PERCENT (BEAKER) (test 4 % zltv=852) BASOPHILS RELATIVE PERCENT (BEAKER) (test 0 % apkz=059) NEUTROPHILS ABSOLUTE COUNT (BEAKER) (test 3.19 K/ L 1.80-8.00 gglw=957) LYMPHOCYTES ABSOLUTE COUNT (BEAKER) (test 0.49 K/ L 1.48-4.50 qavm=361) MONOCYTES ABSOLUTE COUNT (BEAKER) (test awyr=875) 0.70 K/ L 0.00-1.30 EOSINOPHILS ABSOLUTE COUNT (BEAKER) (test 0.17 K/ L 0.00-0.50 tqdr=089) BASOPHILS ABSOLUTE COUNT (BEAKER) (test riet=358) 0.00 K/ L 0.00-0.20 0.00PROTHROMBIN [id number] 04:16:00 Test Item Value Reference Range Comments PROTIME (BEAKER) (test bzce=390) 20.8 seconds 11.7-14.7 INR (BEAKER) (test vboi=438) 1.8 <=5.9 RECOMMENDED COUMADIN/WARFARIN INR THERAPY RANGESSTANDARD DOSE: 2.0 - 3.0 Includes: PROPHYLAXIS forvenous thrombosis, systemic embolization; TREATMENT for venous thrombosis and/or pulmonary embolus.HIGH RISK: Target INR is 2.5-3.5 for patients with mechanical heart valves.[id number] 04:16:00 Test Item Value Reference Range Comments PARTIAL THROMBOPLASTIN TIME (BEAKER) (test 39.2 seconds 22.5-36.0 snev=875) VITAMIN B12 AND [id number] 16:41:00 Test Item Value Reference Range Comments VITAMIN B12 (BEAKER) (test eytw=004) 860 pg/mL 213-816 FOLATE (BEAKER) (test uaxc=776) 8.0 ng/mL >=7.0 Effective 05/09/2014: Folate Reference Range ChangeNew: >=7.0 Previous: & gt;=[id number] 15:47:00 Test Item Value Reference Range Comments FERRITIN (BEAKER) (test ffmd=451) 148 ng/mL 5-275 Effective 05/09/2014: Reference Range ChangeNew: Male 5-275 Previous: Male 22-322 Female 5-275 Female 10-291HEPATITIS B [id number] 14:54:00 Test Item Value Reference Range Comments HEPATITIS B CORE TOTAL ANTIBODY (BEAKER) (test Nonreactive Nonreactive hhrz=438) HEPATITIS B SURFACE ANTIBODY (BEAKER) (test < mIU/mL <8.0 seot=781) HEPATITIS B SURFACE ANTIGEN (2) (BEAKER) (test Nonreactive Nonreactive iyyn=4995) HEPATITIS C [id number] 14:14:00 Test Item Value Reference Range Comments HEPATITIS C ANTIBODY (BEAKER) (test hvjj=904) Nonreactive Nonreactive HIV-1 ANTIGEN WITH HIV-1/2 [id number] 13:54:00 Test Item Value Reference Range Comments HIV-1 ANTIGEN WITH HIV 1\T\2 ANTIBODY (2) Nonreactive Nonreactive (BEAKER) (test zqnn=9176) [id number] 13:39:00 Test Item Value Reference Range Comments D-DIMER QUANTITATIVE (BEAKER) (test gulk=257) 8.70 MG/L FEU <0.50 Intended Use: The [...] exclusion of thrombosis is within 95-100% range.URIC [id number] 13:31:00 Test Item Value Reference Range Comments URIC ACID (BEAKER) (test hspc=282) 10.2 mg/dL 2.6-7.2 LACTATE DEHYDROGENASE (LDH)2016-09-06 13:31:00 Test Item Value Reference Range Comments LACTATE DEHYDROGENASE (BEAKER) (test tspr=499) 199 U/L 125-220 [id number] 13:30:00 Test Item Value Reference Range Comments FIBRINOGEN LEVEL (BEAKER) (test njyy=149) 281 mg/dl 225-434 RAPID DRUG SCREEN, [id number] 12:15:00 Test Item Value Reference Range Comments BARBITURATE URINE (BEAKER) (test tnlr=664) Negative Negative BENZODIAZEPINE SCREEN URINE (BEAKER) (test Negative Negative xnbq=737) COCAINE (METAB.) SCREEN (BEAKER) (test gmwu=2425) Negative Negative METHADONE SCREEN (BEAKER) (test yjaq=4201) Negative Negative OPIATE SCREEN URINE (BEAKER) (test dllj=128) Positive Negative CANNABINOID SCREEN URINE (BEAKER) (test bkgo=871) Negative Negative AMPH/METHAMPH SCREEN (BEAKER) (test cuvx=7573) Negative Negative PHENCYCLIDINE SCREEN URINE (BEAKER) (test uult=159) Negative Negative OXYCODONE SCREEN URINE (BEAKER) (test detj=7259) Negative Negative DRUG CUTOFF CONC.Cocaine 300 ng/mL Cannabinoid 50 ng/mL Benzodiazepine 200 ng/mLBarbiturate 200 ng/ mLPhencyclidine 25 ng/mLOpiate 300 ng/mLMethadone 300 ng/mLAmphetamine/ 1000 ng/mL MethamphetamineOxycodone 300 ng/mLURINALYSIS W/ [id number] 11:30:00 Test Item Value Reference Range Comments COLOR (BEAKER) (test gqxb=262) Yellow CLARITY (BEAKER) (test etnr=362) Hazy SPECIFIC GRAVITY UA (BEAKER) (test skwp=761) 1.011 1.001-1.035 PH UA (BEAKER) (test ytni=058) 5.0 5.0-8.0 PROTEIN UA (BEAKER) (test kxnz=898) 70 mg/dL Negative GLUCOSE UA (BEAKER) (test kqmd=533) Negative Negative KETONES UA (BEAKER) (test zcbo=755) Negative Negative BILIRUBIN UA (BEAKER) (test mfte=768) Negative Negative BLOOD UA (BEAKER) (test qhdb=270) Negative Negative NITRITE UA (BEAKER) (test exfm=857) Negative Negative LEUKOCYTE ESTERASE UA (BEAKER) (test dnpz=139) Negative Negative UROBILINOGEN UA (BEAKER) (test jzzh=363) 2.0 mg/dL 0.2-1.0 RBC UA (BEAKER) (test ffbp=062) < /HPF WBC UA (BEAKER) (test zgrk=981) 2 /HPF BACTERIA (BEAKER) (test ckkj=047) Occasional MUCUS (BEAKER) (test budg=9220) Rare SQUAMOUS EPITHELIAL (BEAKER) (test nrzv=301) 1 /HPF HYALINE CASTS (BEAKER) (test oigh=199) 135 /LPF CASTS (BEAKER) (test bngq=6802) 8 /LPF SOURCE(BEAKER) (test pvsc=9439) Urine, Voided PLATELET [id number] 09:02:00 Test Item Value Reference Range Comments PLATELET COUNT (BEAKER) (test yvqt=265) 11 K/CU MM 150-430 POCT-GLUCOSE [id number] 08:00:00 Test Item Value Reference Range Comments POC-GLUCOSE METER (BEAKER) 92 mg/dL 70-110 TESTED AT [address] (test kpvj=0061) [facility] [address] CBC W/PLT COUNT & AUTO [id number] 07:24:00 Test Item Value Reference Range Comments WHITE BLOOD CELL COUNT (BEAKER) (test feen=425) 5.2 K/ L 4.0-10.0 RED BLOOD CELL COUNT (BEAKER) (test nefk=978) 3.48 M/ L 4.20-5.80 HEMOGLOBIN (BEAKER) (test qprg=433) 10.8 GM/DL 13.0-16.8 HEMATOCRIT (BEAKER) (test qdbq=066) 34.6 % 40.0-50.0 MEAN CORPUSCULAR VOLUME (BEAKER) (test plxi=286) 99.4 fL 82.0-98.0 MEAN CORPUSCULAR HEMOGLOBIN (BEAKER) (test 30.9 pg 27.0-33.0 hhfg=420) MEAN CORPUSCULAR HEMOGLOBIN CONC (BEAKER) (test 31.1 GM/DL 32.0-36.0 qcbn=464) RED CELL DISTRIBUTION WIDTH (BEAKER) (test 14.3 % 10.3-14.2 feta=761) PLATELET COUNT (BEAKER) (test foms=436) 9 K/CU MM 150-430 MEAN PLATELET VOLUME (BEAKER) (test gost=464) 10.7 fL 6.5-10.5 NUCLEATED RED BLOOD CELLS (BEAKER) (test 0 /100 WBC 0-0 akjv=266) NEUTROPHILS RELATIVE PERCENT (BEAKER) (test 76 % mpnu=658) LYMPHOCYTES RELATIVE PERCENT (BEAKER) (test 8 % vnag=814) MONOCYTES RELATIVE PERCENT (BEAKER) (test 13 % bvzh=540) EOSINOPHILS RELATIVE PERCENT (BEAKER) (test 3 % zcmn=976) BASOPHILS RELATIVE PERCENT (BEAKER) (test 0 % wgso=581) NEUTROPHILS ABSOLUTE COUNT (BEAKER) (test 3.95 K/ L 1.80-8.00 ipre=920) LYMPHOCYTES ABSOLUTE COUNT (BEAKER) (test 0.42 K/ L 1.48-4.50 xlcw=032) MONOCYTES ABSOLUTE COUNT (BEAKER) (test ddbk=932) 0.67 K/ L 0.00-1.30 EOSINOPHILS ABSOLUTE COUNT (BEAKER) (test 0.14 K/ L 0.00-0.50 dtwf=989) BASOPHILS ABSOLUTE COUNT (BEAKER) (test hojz=256) 0.00 K/ L 0.00-0.20 0.00BASIC METABOLIC [id number] 06:16:00 Test Item Value Reference Range Comments SODIUM (BEAKER) (test 134 meq/L 136-145 ryex=031) POTASSIUM (BEAKER) (test 5.2 meq/L 3.5-5.1 trec=601) CHLORIDE (BEAKER) (test 100 meq/L 98-107 mfuv=294) CO2 (BEAKER) (test 24 meq/L 22-29 yunc=755) BLOOD UREA NITROGEN 31 mg/dL 7-21 (BEAKER) (test gjio=222) CREATININE (BEAKER) (test 1.54 mg/dL 0.57-1.25 fjdw=938) GLUCOSE RANDOM (BEAKER) 99 mg/dL 70-105 (test uimd=463) CALCIUM (BEAKER) (test 8.7 mg/dL 8.4-10.2 ircw=777) EGFR (BEAKER) (test mL/min/1.73 sq m INSUFFICIENT CLINICAL DATA xkdl=4846) TO CALCULATE ESTIMATED GFR. CREATINE KINASE (CK), TOTAL AND [id number] 06:14:00 Test Item Value Reference Range Comments CREATINE KINASE TOTAL (BEAKER) (test pvzg=662) 67 U/L 29-200 CREATINE KINASE-MB (BEAKER) (test qwuh=174) 1.9 ng/mL 0.0-6.6 CREATINE KINASE-MB INDEX (BEAKER) (test tqht=870) 2.8 % Effective 05/09/2014: CK-MB Reference Range ChangeNew: 0.0-6.6 Previous: 0.0- 4.9CK-MB Reference Range:<6.7 Normal6.7-10.0 Borderline>10.0 AbnormalTROPONIN [id number] 06:14:00 Test Item Value Reference Range Comments TROPONIN I (BEAKER) (test qmgf=436) 0.02 ng/mL 0.00-0.03 Effective 05/09/2014: Reference Range [...] renalfailure, acidosis, acute neurological disease, and persistent tachyarrhythmia.[id number] 05:40:00 Test Item Value Reference Range Comments PARTIAL THROMBOPLASTIN TIME (BEAKER) (test 35.1 seconds 22.5-36.0 zzus=587) PROTHROMBIN TIME/[id number] 05:39:00 Test Item Value Reference Range Comments PROTIME (BEAKER) (test umnl=071) 18.1 seconds 11.7-14.7 INR (BEAKER) (test yoag=654) 1.5 <=5.9 RECOMMENDED COUMADIN/WARFARIN INR THERAPY RANGESSTANDARD DOSE: 2.0 - 3.0 Includes: PROPHYLAXIS forvenous thrombosis, systemic embolization; TREATMENT for venous thrombosis and/or pulmonary embolus.HIGH RISK: Target INR is 2.5-3.5 for patients with mechanical heart valves.T4, [id number] 03:16:00 Test Item Value Reference Range Comments FREE T4 (BEAKER) (test ietr=539) 1.45 ng/dL 0.70-1.48 TSH/FREE T4 IF [id number] 02:21:00 Test Item Value Reference Range Comments THYROID STIMULATING HORMONE (BEAKER) (test 6.77 uIU/mL 0.35-4.94 yyla=698) CREATINE KINASE (CK), TOTAL AND [id number] 01:14:00 Test Item Value Reference Range Comments CREATINE KINASE TOTAL (BEAKER) (test xjsp=519) 76 U/L 29-200 CREATINE KINASE-MB (BEAKER) (test qfbl=727) 1.7 ng/mL 0.0-6.6 CREATINE KINASE-MB INDEX (BEAKER) (test eigl=950) 2.2 % Effective 05/09/2014: CK-MB Reference Range ChangeNew: 0.0-6.6 Previous: 0.0- 4.9CK-MB Reference Range:<6.7 Normal6.7-10.0 Borderline>10.0 AbnormalTROPONIN [id number] 01:14:00 Test Item Value Reference Range Comments TROPONIN I (BEAKER) (test uagn=397) 0.02 ng/mL 0.00-0.03 Effective 05/09/2014: Reference Range [...] acidosis, acute neurological disease, and persistent tachyarrhythmia.LIPID [id number] 01:08 :00 Test Item Value Reference Range Comments TRIGLYCERIDES (BEAKER) (test zvqe=106) 82 mg/dL CHOLESTEROL (BEAKER) (test btbh=097) 145 mg/dL HDL CHOLESTEROL (BEAKER) (test vdlo=591) 49 mg/dL LDL CHOLESTEROL CALCULATED (BEAKER) (test 80 mg/dL fjpu=445) Triglyceride Reference Range: Low Risk <150 Borderline 150- 199 High Risk 200-499 Very High Risk >=500Cholesterol Reference Range: Low Risk <200 Borderline 200-239 High Risk > 240HDL Cholesterol Reference Range: Low Risk >=60 High Risk <40LDL Cholesterol Reference Range: Optimal <100 Near Optimal 100-129 Borderline 130-159 High 160-189 Very High >=190 Specimen slightly ictericDIGOXIN [id number] 18:22:00 Test Item Value Reference Range Comments DIGOXIN LEVEL (BEAKER) (test thji=839) 0.8 ng/mL 0.8-2.0 CREATINE KINASE (CK), TOTAL AND [id number] 17:51:00 Test Item Value Reference Range Comments CREATINE KINASE TOTAL (BEAKER) (test drpd=195) 78 U/L 29-200 CREATINE KINASE-MB (BEAKER) (test flgl=237) 1.9 ng/mL 0.0-6.6 CREATINE KINASE-MB INDEX (BEAKER) (test buwo=369) 2.4 % Effective 05/09/2014: CK-MB Reference Range ChangeNew: 0.0-6.6 Previous: 0.0- 4.9CK-MB Reference Range:<6.7 Normal6.7-10.0 Borderline>10.0 AbnormalTROPONIN [id number] 17:51:00 Test Item Value Reference Range Comments TROPONIN I (BEAKER) (test mofw=233) 0.03 ng/mL 0.00-0.03 Effective 05/09/2014: Reference Range [...] NATRIURETIC PEPTIDE (BEAKER) (test 334 pg/mL 0-100 onzj=153) BASIC METABOLIC [id number] 17:49:00 Test Item Value Reference Range Comments SODIUM (BEAKER) (test 136 meq/L 136-145 eoml=583) POTASSIUM (BEAKER) (test 5.4 meq/L 3.5-5.1 ziil=556) CHLORIDE (BEAKER) (test 101 meq/L 98-107 txgj=666) CO2 (BEAKER) (test 27 meq/L 22-29 irou=855) BLOOD UREA NITROGEN 26 mg/dL 7-21 (BEAKER) (test vwlf=455) CREATININE (BEAKER) (test 1.10 mg/dL 0.57-1.25 otnl=513) GLUCOSE RANDOM (BEAKER) 105 mg/dL 70-105 (test bcrl=749) CALCIUM (BEAKER) (test 8.9 mg/dL 8.4-10.2 retc=666) EGFR (BEAKER) (test mL/min/1.73 sq m INSUFFICIENT CLINICAL DATA hina=3120) TO CALCULATE ESTIMATED GFR. [id number] 17:45:00 Test Item Value Reference Range Comments LIPASE (BEAKER) (test qhxu=890) 43 U/L 8-78 ALT (SGPT)2016-09-05 17:45:00 Test Item Value Reference Range Comments ALT (SGPT) (BEAKER) (test jojh=573) 14 U/L 6-55 AST (SGOT)2016-09-05 17:45:00 Test Item Value Reference Range Comments AST (SGOT) (BEAKER) (test jsse=497) 33 U/L 5-34 BILIRUBIN, ADULT [id number] 17:45:00 Test Item Value Reference Range Comments BILIRUBIN TOTAL (BEAKER) (test iwgs=446) 2.0 mg/dL 0.2-1.2 PROTHROMBIN TIME/[id number] 17:38:00 Test Item Value Reference Range Comments PROTIME (BEAKER) (test zjwx=816) 20.2 seconds 11.7-14.7 INR (BEAKER) (test wavc=778) 1.7 <=5.9 RECOMMENDED COUMADIN/WARFARIN INR THERAPY RANGESSTANDARD DOSE: 2.0 - 3.0 Includes: PROPHYLAXIS forvenous thrombosis, systemic embolization; TREATMENT for venous thrombosis and/or pulmonary embolus.HIGH RISK: Target INR is 2.5-3.5 for patients with mechanical heart valves.CBC W/PLT COUNT & AUTO [id number] 17:35:00 Test Item Value Reference Range Comments WHITE BLOOD CELL COUNT (BEAKER) (test xkyq=541) 5.9 K/ L 4.0-10.0 RED BLOOD CELL COUNT (BEAKER) (test gkvb=951) 3.49 M/ L 4.20-5.80 HEMOGLOBIN (BEAKER) (test yrct=492) 11.2 GM/DL 13.0-16.8 HEMATOCRIT (BEAKER) (test rreb=702) 34.4 % 40.0-50.0 MEAN CORPUSCULAR VOLUME (BEAKER) (test bbmj=002) 98.8 fL 82.0-98.0 MEAN CORPUSCULAR HEMOGLOBIN (BEAKER) (test 32.2 pg 27.0-33.0 ihtv=168) MEAN CORPUSCULAR HEMOGLOBIN CONC (BEAKER) (test 32.6 GM/DL 32.0-36.0 aaix=627) RED CELL DISTRIBUTION WIDTH (BEAKER) (test 13.7 % 10.3-14.2 lman=373) PLATELET COUNT (BEAKER) (test kxux=638) 28 K/CU MM 150-430 MEAN PLATELET VOLUME (BEAKER) (test adlc=573) 9.0 fL 6.5-10.5 NUCLEATED RED BLOOD CELLS (BEAKER) (test 0 /100 WBC 0-0 arhf=295) NEUTROPHILS RELATIVE PERCENT (BEAKER) (test 78 % ebcw=470) LYMPHOCYTES RELATIVE PERCENT (BEAKER) (test 8 % uhxk=856) MONOCYTES RELATIVE PERCENT (BEAKER) (test 10 % wsmh=010) EOSINOPHILS RELATIVE PERCENT (BEAKER) (test 4 % zgmr=055) BASOPHILS RELATIVE PERCENT (BEAKER) (test 0 % lgzm=726) NEUTROPHILS ABSOLUTE COUNT (BEAKER) (test 4.58 K/ L 1.80-8.00 whxw=737) LYMPHOCYTES ABSOLUTE COUNT (BEAKER) (test 0.45 K/ L 1.48-4.50 oyrx=418) MONOCYTES ABSOLUTE COUNT (BEAKER) (test uryf=893) 0.61 K/ L 0.00-1.30 EOSINOPHILS ABSOLUTE COUNT (BEAKER) (test 0.23 K/ L 0.00-0.50 cero=469) BASOPHILS ABSOLUTE COUNT (BEAKER) (test obym=910) 0.02 K/ L 0.00-0.20 0.00
--- NOTE | 2017-10-30 12:57 | EDPHYS ---
Physician Documentation [facility] Name: Gatito Gunn Age: 57 yrs Sex: Male : 1960 Arrival Date: 10/30/2017 Time: 11:27 Bed 17 Private MD: ED Physician Ezekiel Garza HPI: 10/30 12:21 This 57 yrs old Male presents to ER via EMS with complaints of open wound left jr8 leg. 12:21 The patient presents with a laceration. The complaints affect the lateral aspect of jr8 left calf. Onset: The symptoms/episode began/occurred acutely, 2 day(s) ago. Severity of symptoms: At their worst the symptoms were mild, in the emergency department the symptoms are unchanged. The patient has not experienced similar symptoms in the past. The patient has been recently seen by a physician:. Patient cut leg and was seen yesterday for bleeding. History of cirrhosis and was on coumadin. Had dressing done yesterday. Today came back for continued bleeding . Historical: - Allergies: 11:32 No Known Allergies; em - Home Meds: 11:32 acetaminophen-codeine 300-30 mg Oral tab 1 tab every 6 hours [Active]; atorvastatin 20 em mg Oral tab 1 tab once daily [Active]; carvedilol 12.5 mg Oral tab 1 tab daily [Active]; digoxin 250 mcg Oral tab 1 tab once daily [Active]; erythromycin 5 mg/gram (0.5 %) Opht oint 4 times per day [Active]; 11:33 furosemide 40 mg Oral tab 1 tab once daily [Active]; lactulose 10 gram/15 mL (15 mL) em Oral soln 15 mL once daily [Active]; levothyroxine 125 mcg tab 1 tab once daily [Active]; Santyl 250 unit/gram Topical oint once daily [Active]; spironolactone 50 mg Oral tab 1 tab 2 times per day [Active]; trazodone 50 mg Oral tab 1 tab daily [Active]; warfarin 2.5 mg Oral tab 1 tab once daily [Active]; - PMHx: 11:32 liver failure; em - PSHx: 11:32 CABG; em - Immunization history:: Adult Immunizations up to date. - Social history:: Smoking status: Patient/guardian denies using tobacco. ROS: 12:21 Eyes: Negative for injury, pain, redness, and discharge, ENT: Negative for injury, jr8 pain, and discharge, Neck: Negative for injury, pain, and swelling, Cardiovascular: Negative for chest pain, palpitations, and edema, Respiratory: Negative for shortness of breath, cough, wheezing, and pleuritic chest pain, Abdomen/GI: Negative for abdominal pain, nausea, vomiting, diarrhea, and constipation, Back: Negative for injury and pain, MS/Extremity: Negative for injury and deformity, Neuro: Negative for headache, weakness, numbness, tingling, and seizure. 12:21 Skin: Positive for laceration(s), of the left leg. Exam: 12:21 Eyes: Pupils equal round and reactive to light, extra-ocular motions intact. Lids and jr8 lashes normal. Conjunctiva and sclera are non-icteric and not injected. Cornea within normal limits. Periorbital areas with no swelling, redness, or edema. ENT: Nares patent. No nasal discharge, no septal abnormalities noted. Tympanic membranes are normal and external auditory canals are clear. Oropharynx with no redness, swelling, or masses, exudates, or evidence of obstruction, uvula midline. Mucous membranes moist. Neck: Trachea midline, no thyromegaly or masses palpated, and no cervical lymphadenopathy. Supple, full range of motion without nuchal rigidity, or vertebral point tenderness. No Meningismus. Respiratory: Lungs have equal breath sounds bilaterally, clear to auscultation and percussion. No rales, rhonchi or wheezes noted. No increased work of breathing, no retractions or nasal flaring. Abdomen/GI: Soft, non-tender, with normal bowel sounds. No distension or tympany. No guarding or rebound. No evidence of tenderness throughout. Back: No spinal tenderness. No costovertebral tenderness. Full range of motion. MS/ Extremity: Pulses equal, no cyanosis. Neurovascular intact. Full, normal range of motion. Neuro: Awake and alert, GCS 15, oriented to person, place, time, and situation. Cranial nerves II-XII grossly intact. Motor strength 5/5 in all extremities. Sensory grossly intact. Cerebellar exam normal. Normal gait. 12:21 Cardiovascular: Rate: normal, Rhythm: regular, Pulses: Pulses are 2+ in right radial artery and left radial artery. Heart sounds: normal, normal S1and S2, no S3 or S4, no murmur, no rub, no gallop, Edema: 3+ edema to level of left midcalf, left ankle, left foot, right midcalf, right ankle and right foot. 12:21 Skin: Patient has approximately 2 cm laceration irregular shaped note to lateral leg. mild oozing noted. Clot formation around wound intact . Vital Signs: 11:34 BP 107 / 72; Pulse 67; Resp 16; Temp 97.6; Pulse Ox 95% on 2 lpm NC; Weight 80.29 kg; em Height 5 ft. 5 in. (165.10 cm); Pain 7/10; 12:30 BP 104 / 69; Pulse 68; Resp 18; Pulse Ox 97% on 2 lpm NC; em 11:34 Body Mass Index 29.45 (80.29 kg, 165.10 cm) em MDM: 11:39 Patient medically screened. [facility] 12:56 Data reviewed: vital signs, nurses notes, and as a result, I will discharge patient. jr8 Data interpreted: Pulse oximetry: on room air is 95 %. Interpretation: normal. Counseling: I had a detailed discussion with the patient and/or guardian regarding: the historical points, exam findings, and any diagnostic results supporting the discharge/admit diagnosis, the need for outpatient follow up, a family practitioner, to return to the emergency department if symptoms worsen or persist or if there are any questions or concerns that arise at home. ED course: Patient to f/u with home health for dressing changes. To come back if worse . Administered Medications: No medications were administered Disposition: 10/30/17 12:56 Discharged to Home. Impression: Open wound of lower leg. - Condition is Stable. - Discharge Instructions: Wound Care, [id number]. - Medication Reconciliation Form, Thank You Letter, Antibiotic Education, Prescription Opioid Use form. - Follow up: Private Physician; When: 2 - 3 days; Reason: Wound Recheck, Recheck today's complaints, Continuance of care, Re-evaluation by your physician. - Problem is new. - Symptoms have improved. Addendum: 11/02/2017 08:27 Co-signature as Attending Physician, Ezekiel Garza MD I agree with the assessment and c reece plan of care. Signatures: Ezekiel Garza MD MD cha Munoz, Edgar, INDUSTRIAL ENGINEERING MANAGER INDUSTRIAL ENGINEERING MANAGER em Vega Han PA PA jr8 Corrections: (The following items were deleted from the chart) 10/30 14:13 12:56 10/30/2017 12:56 Discharged to Home. Impression: Open wound of lower leg. em Condition is Stable. Forms are Medication Reconciliation Form, Thank You Letter, Antibiotic Education, Prescription Opioid Use. Follow up: Private Physician; When: 2 - 3 days; Reason: Wound Recheck, Recheck today's complaints, Continuance of care, Re-evaluation by your physician. Problem is new. Symptoms have improved. jr8
--- NOTE | 2017-10-30 12:57 | ER ---
Nurse's Notes [facility] Name: Gatito Gunn Age: 57 yrs Sex: Male : 1960 Arrival Date: 10/30/2017 Time: 11:27 Bed 17 Private MD: Diagnosis: Open wound of lower leg Presentation: 10/30 11:28 Presenting complaint: EMS states: called out for LLE wound that was bleeding after em brushing it on the couch, pt reports being here 2 days ago for the same thing and "they didn't do anything," also was to stop taking warfarin. Transition of care: patient was not received from another setting of care. Onset of symptoms was October 28, 2017. Care prior to arrival: None. 11:28 Method Of Arrival: EMS: [facility] em 11:28 Acuity: LAURO 4 iw 14:10 Initial Sepsis Screen: Does the patient meet any 2 criteria? No. Patient's initial em sepsis screen is negative. Does the patient have a suspected source of infection? No. Patient's initial sepsis screen is negative. Historical: - Allergies: 11:32 No Known Allergies; em - Home Meds: 11:32 acetaminophen-codeine 300-30 mg Oral tab 1 tab every 6 hours [Active]; atorvastatin 20 em mg Oral tab 1 tab once daily [Active]; carvedilol 12.5 mg Oral tab 1 tab daily [Active]; digoxin 250 mcg Oral tab 1 tab once daily [Active]; erythromycin 5 mg/gram (0.5 %) Opht oint 4 times per day [Active]; 11:33 furosemide 40 mg Oral tab 1 tab once daily [Active]; lactulose 10 gram/15 mL (15 mL) em Oral soln 15 mL once daily [Active]; levothyroxine 125 mcg tab 1 tab once daily [Active]; Santyl 250 unit/gram Topical oint once daily [Active]; spironolactone 50 mg Oral tab 1 tab 2 times per day [Active]; trazodone 50 mg Oral tab 1 tab daily [Active]; warfarin 2.5 mg Oral tab 1 tab once daily [Active]; - PMHx: 11:32 liver failure; em - PSHx: 11:32 CABG; em - Immunization history:: Adult Immunizations up to date. - Social history:: Smoking status: Patient/guardian denies using tobacco. Screenin:35 Abuse screen: Denies threats or abuse. Nutritional screening: No deficits noted. em Tuberculosis screening: No symptoms or risk factors identified. Fall Risk None identified. Assessment: 11:51 General: Appears in no apparent distress. uncomfortable, Behavior is calm, cooperative. em Pain: Complains of pain in lateral aspect of left calf Pain currently is 7 out of 10 on a pain scale. Neuro: Level of Consciousness is awake, alert, obeys commands, Oriented to person, place, time, situation, Denies dizziness, headache. Cardiovascular: Denies chest pain, shortness of breath, Heart tones S1 S2 present Capillary refill < 3 seconds Patient's skin is warm and dry. Cardiovascular: Edema is 3+ to left midcalf, left ankle, left foot, right midcalf, right ankle and right foot pitting to left midcalf, left ankle, left foot, right midcalf, right ankle and right foot. Respiratory: Airway is patent Respiratory effort is even, unlabored, Respiratory pattern is regular, symmetrical, Breath sounds are clear bilaterally. GI: Abdomen is round distended, Bowel sounds present X 4 quads. Abd is rigid X 4 quads. Patient currently denies nausea, vomiting. : No signs and/or symptoms were reported regarding the genitourinary system. EENT: No signs and/or symptoms were reported regarding the EENT system. Derm: Skin is intact. Musculoskeletal: Capillary refill is > 3 seconds, in bilateral toes. Range of motion: intact in all extremities. 12:05 Reassessment: Patient appears in no apparent distress at this time. I agree with the iw above assessment by Boubacar Barlow LVN. 12:30 Reassessment: Patient appears in no apparent distress at this time. Patient and/or em family updated on plan of care and expected duration. Pain level reassessed. Patient is alert, oriented x 3, equal unlabored respirations, skin warm/dry/pink. placed surgi seal on would with sterile 4 x 4's and wrapped with Kerlix, pt tolerated well Patient states feeling better. 13:15 Reassessment: Patient appears in no apparent distress at this time. pt discharged, em awaiting for pt transport to arrive. Vital Signs: 11:34 BP 107 / 72; Pulse 67; Resp 16; Temp 97.6; Pulse Ox 95% on 2 lpm NC; Weight 80.29 kg; em Height 5 ft. 5 in. (165.10 cm); Pain 7/10; 12:30 BP 104 / 69; Pulse 68; Resp 18; Pulse Ox 97% on 2 lpm NC; em 11:34 Body Mass Index 29.45 (80.29 kg, 165.10 cm) em ED Course: 11:27 Patient arrived in ED. em 11:35 Patient has correct armband on for positive identification. Call light in reach. Side em rails up X2. 11:35 Arm band placed on. em 11:39 Vega Han PA is PHCP. jr8 11:39 Ezekiel Garza MD is Attending Physician. jr8 11:50 Boubacar Barlow LVN is Primary Nurse. em 12:30 No provider procedures requiring assistance completed. em 12:30 Patient did not have IV access during this emergency room visit. em 12:30 Wound care: to laceration located on lateral aspect of left calf was cleaned with em Hibiclens, irrigated with normal saline, dressed with 4X4s, Kerlix, surgi seal. 14:12 Triage completed. iw Administered Medications: No medications were administered Outcome: 12:56 Discharge ordered by . jrGigi 14:10 Discharged to home via wheelchair. em 14:10 Condition: good 14:10 Discharge instructions given to patient, family, Instructed on discharge instructions, follow up and referral plans. Demonstrated understanding of instructions, follow-up care. 14:13 Patient left the ED. em Signatures: Boubacar Barlow LVN LVN em Reyna Wheeler RN RN iw Vega Han PA PA jr8 Corrections: (The following items were deleted from the chart) 11:34 11:28 Presenting complaint: EMS states: called out for LLE wound that was bleeding em after brushing it on the couch, pt reports being here 2 days ago for the same thing and "they didn't do anything" em 14:10 12:46 Reassessment: Patient appears in no apparent distress at this time. pt em discharged, awaiting for pt transport to arrive em
[2017-10-30 14:20] VITALS: TEMP 97.6
[2017-10-30 14:21] VITALS: BP 104/69; O2SAT 97
== END 2017-10-30 14:13 | disposition home or self-care (01) ==
LOC: ER 11:20
DX: S81.812D Laceration without foreign body, left lower leg, subsequent encounter (principal); K72.90 Hepatic failure, unspecified without coma; Z95.1 Presence of aortocoronary bypass graft
CPT/HCPCS: 99283

== ENCOUNTER 2017-11-02 11:26 | Emergency (ER) | payer OTHER ==
[2017-11-02] MEDS ORDERED: ETOMIDATE 20 MG/10 ML VIAL IV ONE (11:27)
--- OUTSIDE RECORDS SUMMARY | 2017-11-02 11:29 | XMS REPORT | Clinical Summary ---
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 2016 Non morbid obesity 09/06/2016 Chest pain, unspecified type 09/05/2016 Social History Tobacco Use Types Packs/Day Years Used Date Unknown If Ever Smoked Alcohol Use Drinks/Week oz/Week Comments Yes Sex Assigned at Date Recorded Not on file Last Filed Vital Signs Not on file Plan of Treatment Not on file Implants Implanted Type Area Cyanide Case Hardener Device Expiration Model / Identifier Date Serial / Lot Patch Vasc [place] 1.65mm 1x6in [id number] - [id number] Graft/Patc N/A: [id number] / Implanted: Qty: 1 on 09/23/2016 by Adam Sullivan MD Chest BARD: PERIPHERAL / VASC [id number] Valve Mitrl De Leon Ii 33mm - [id number] Valves N/A: [employer]:STRUCT 02/17 [id number] / Implanted: Qty: 1 on 09/23/2016 by Adam Sullivan MD Chest URAL HEART [id number] / Results ARRYTHMIA IMPLANT REPORT - SCAN (03/05/2017 7:40 AM)Only the most recent of2 resultswithin the time period is included.after 11/01/2016
--- OUTSIDE RECORDS SUMMARY | 2017-11-02 11:34 | XMS REPORT ---
:1960 Author Organization [facility] Address [address] [place] [address] Dr. Powers [address] [place] [id number] Care Team Providers Name Role Phone INGAABILIO [...] (BEAKER) (test 121 mg/dL 70-110 TESTED AT [address] zjdd=7499) [facility] [address] POCT-GLUCOSE [id number] 12:00:00 Test Item Value Reference Range Comments POC-GLUCOSE METER (BEAKER) 118 mg/dL 70-110 TESTED AT [address] (test tevr=6848) [facility] [address] CBC W/PLT COUNT & AUTO [id number] 11:55:00 Test Item Value Reference Range Comments WHITE BLOOD CELL COUNT (BEAKER) (test lsra=983) 8.9 K/ L 4.0-10.0 RED BLOOD CELL COUNT (BEAKER) (test nonu=189) 2.79 M/ L 4.20-5.80 HEMOGLOBIN (BEAKER) (test jhkz=412) 9.2 GM/DL 13.0-16.8 HEMATOCRIT (BEAKER) (test iolu=125) 27.1 % 40.0-50.0 MEAN CORPUSCULAR VOLUME (BEAKER) (test pacn=262) 97.1 fL 82.0-98.0 MEAN CORPUSCULAR HEMOGLOBIN (BEAKER) (test 33.1 pg 27.0-33.0 xysp=122) MEAN CORPUSCULAR HEMOGLOBIN CONC (BEAKER) (test 34.1 GM/DL 32.0-36.0 djcn=397) RED CELL DISTRIBUTION WIDTH (BEAKER) (test 15.5 % 10.3-14.2 ujps=887) PLATELET COUNT (BEAKER) (test ahuf=737) 29 K/CU MM 150-430 MEAN PLATELET VOLUME (BEAKER) (test znxu=319) 9.4 fL 6.5-10.5 NUCLEATED RED BLOOD CELLS (BEAKER) (test 0 /100 WBC 0-0 lksd=244) NEUTROPHILS RELATIVE PERCENT (BEAKER) (test 87 % wdcr=538) LYMPHOCYTES RELATIVE PERCENT (BEAKER) (test 5 % tjmc=125) MONOCYTES RELATIVE PERCENT (BEAKER) (test 8 % roet=689) EOSINOPHILS RELATIVE PERCENT (BEAKER) (test 1 % xuvv=531) BASOPHILS RELATIVE PERCENT (BEAKER) (test 0 % svxo=137) NEUTROPHILS ABSOLUTE COUNT (BEAKER) (test 7.73 K/ L 1.80-8.00 vnwj=971) LYMPHOCYTES ABSOLUTE COUNT (BEAKER) (test 0.42 K/ L 1.48-4.50 ktcy=004) MONOCYTES ABSOLUTE COUNT (BEAKER) (test uxav=684) 0.73 K/ L 0.00-1.30 EOSINOPHILS ABSOLUTE COUNT (BEAKER) (test 0.05 K/ L 0.00-0.50 mjjf=245) BASOPHILS ABSOLUTE COUNT (BEAKER) (test nmir=641) 0.00 K/ L 0.00-0.20 0.00POCT-GLUCOSE [id number] 07:54:00 Test Item Value Reference Range Comments POC-GLUCOSE METER (BEAKER) 94 mg/dL 70-110 TESTED AT [address] (test sabo=4866) [facility] [address] POCT-GLUCOSE [id number] 22:14:00 Test Item Value Reference Range Comments POC-GLUCOSE METER (BEAKER) 221 mg/dL 70-110 TESTED AT [address] (test idna=9297) [facility] [address] POCT-GLUCOSE [id number] 18:29:00 Test Item Value Reference Range Comments POC-GLUCOSE METER (BEAKER) 144 mg/dL 70-110 TESTED AT [address] (test eewy=5991) [facility] [address] POCT-GLUCOSE [id number] 12:57:00 Test Item Value Reference Range Comments POC-GLUCOSE METER (BEAKER) 195 mg/dL 70-[address] [facility] [address] [facility] (test jurd=7581) [place] [address] CBC W/PLT COUNT & AUTO [id number] 08:36:00 Test Item Value Reference Range Comments WHITE BLOOD CELL COUNT (BEAKER) (test rman=378) 11.1 K/ L 4.0-10.0 RED BLOOD CELL COUNT (BEAKER) (test rgri=810) 2.68 M/ L 4.20-5.80 HEMOGLOBIN (BEAKER) (test sbxg=178) 9.0 GM/DL 13.0-16.8 HEMATOCRIT (BEAKER) (test ywqu=563) 26.5 % 40.0-50.0 MEAN CORPUSCULAR VOLUME (BEAKER) (test ofpp=675) 98.7 fL 82.0-98.0 MEAN CORPUSCULAR HEMOGLOBIN (BEAKER) (test 33.5 pg 27.0-33.0 njnv=992) MEAN CORPUSCULAR HEMOGLOBIN CONC (BEAKER) (test 34.0 GM/DL 32.0-36.0 gxbw=581) RED CELL DISTRIBUTION WIDTH (BEAKER) (test 15.3 % 10.3-14.2 ivrc=507) PLATELET COUNT (BEAKER) (test dxbl=098) 30 K/CU MM 150-430 MEAN PLATELET VOLUME (BEAKER) (test bmcs=400) 8.7 fL 6.5-10.5 NUCLEATED RED BLOOD CELLS (BEAKER) (test 0 /100 WBC 0-0 jqyk=940) NEUTROPHILS RELATIVE PERCENT (BEAKER) (test 85 % ucrb=179) LYMPHOCYTES RELATIVE PERCENT (BEAKER) (test 5 % etmm=374) MONOCYTES RELATIVE PERCENT (BEAKER) (test 9 % scqa=534) EOSINOPHILS RELATIVE PERCENT (BEAKER) (test 0 % cofb=890) BASOPHILS RELATIVE PERCENT (BEAKER) (test 0 % ufhy=635) NEUTROPHILS ABSOLUTE COUNT (BEAKER) (test 9.48 K/ L 1.80-8.00 kxnr=005) LYMPHOCYTES ABSOLUTE COUNT (BEAKER) (test 0.56 K/ L 1.48-4.50 puxh=887) MONOCYTES ABSOLUTE COUNT (BEAKER) (test cjms=419) 1.05 K/ L 0.00-1.30 EOSINOPHILS ABSOLUTE COUNT (BEAKER) (test 0.05 K/ L 0.00-0.50 rsry=001) BASOPHILS ABSOLUTE COUNT (BEAKER) (test jhez=389) 0.00 K/ L 0.00-0.20 0.00POCT-GLUCOSE [id number] 08:26:00 Test Item Value Reference Range Comments POC-GLUCOSE METER (BEAKER) 107 mg/dL 70-[address] [facility] [address] [facility] (test fsfo=6632) [place] [address] PROTHROMBIN [id number] 05:20:00 Test Item Value Reference Range Comments PROTIME (BEAKER) (test ekft=866) 17.0 seconds 11.7-14.7 INR (BEAKER) (test mxqd=318) 1.4 <=5.9 RECOMMENDED COUMADIN/WARFARIN INR THERAPY RANGESSTANDARD DOSE: 2.0 - 3.0 Includes: PROPHYLAXIS forvenous thrombosis, systemic embolization; TREATMENT for venous thrombosis and/or pulmonary embolus.HIGH RISK: Target INR is 2.5-3.5 for patients with mechanical heart valves.[id number] 05:20:00 Test Item Value Reference Range Comments PARTIAL THROMBOPLASTIN TIME (BEAKER) (test 27.8 seconds 22.5-36.0 buhu=916) [id number] 05:20:00 Test Item Value Reference Range Comments FIBRINOGEN LEVEL (BEAKER) (test ckab=700) 183 mg/dl 225-434 B-TYPE NATRIURETIC FACTOR (BNP)2016-09-30 05:11:00 Test Item Value Reference Range Comments B-TYPE NATRIURETIC PEPTIDE (BEAKER) (test 256 pg/mL 0-100 azmg=807) BASIC METABOLIC [id number] 05:09:00 Test Item Value Reference Range Comments SODIUM (BEAKER) (test 133 meq/L 136-145 jiwh=028) POTASSIUM (BEAKER) (test 3.5 meq/L 3.5-5.1 ztxz=767) CHLORIDE (BEAKER) (test 93 meq/L 98-107 xakn=812) CO2 (BEAKER) (test 30 meq/L 22-29 zozw=268) BLOOD UREA NITROGEN 40 mg/dL 7-21 (BEAKER) (test gcvz=670) CREATININE (BEAKER) (test 0.85 mg/dL 0.57-1.25 akdw=703) GLUCOSE RANDOM (BEAKER) 143 mg/dL 70-105 (test hkxs=676) CALCIUM (BEAKER) (test 8.5 mg/dL 8.4-10.2 yvvd=241) EGFR (BEAKER) (test mL/min/1.73 sq m INSUFFICIENT CLINICAL DATA jbpg=4937) TO CALCULATE ESTIMATED GFR. POCT-GLUCOSE [id number] 21:25:00 Test Item Value Reference Range Comments POC-GLUCOSE METER (BEAKER) 139 mg/dL 70-110 TESTED AT [address] (test ckpe=7319) [facility] [address] POCT-GLUCOSE [id number] 17:50:00 Test Item Value Reference Range Comments POC-GLUCOSE METER (BEAKER) 173 mg/dL 70-110 TESTED AT [address] (test fbrv=5387) [facility] [address] POCT-GLUCOSE [id number] 08:56:00 Test Item Value Reference Range Comments POC-GLUCOSE METER (BEAKER) 155 mg/dL 70-110 TESTED AT [address] (test fwhj=0316) [facility] [address] CBC W/PLT COUNT & AUTO [id number] 04:54:00 Test Item Value Reference Range Comments WHITE BLOOD CELL COUNT (BEAKER) (test xgka=047) 8.7 K/ L 4.0-10.0 RED BLOOD CELL COUNT (BEAKER) (test wlfx=989) 2.72 M/ L 4.20-5.80 HEMOGLOBIN (BEAKER) (test jdlx=213) 9.4 GM/DL 13.0-16.8 HEMATOCRIT (BEAKER) (test vgdw=994) 27.0 % 40.0-50.0 MEAN CORPUSCULAR VOLUME (BEAKER) (test cnmh=911) 99.4 fL 82.0-98.0 MEAN CORPUSCULAR HEMOGLOBIN (BEAKER) (test 34.6 pg 27.0-33.0 senv=310) MEAN CORPUSCULAR HEMOGLOBIN CONC (BEAKER) (test 34.8 GM/DL 32.0-36.0 rwhy=577) RED CELL DISTRIBUTION WIDTH (BEAKER) (test 15.3 % 10.3-14.2 gscx=045) PLATELET COUNT (BEAKER) (test wvhl=450) 24 K/CU MM 150-430 MEAN PLATELET VOLUME (BEAKER) (test piyu=546) 9.9 fL 6.5-10.5 NUCLEATED RED BLOOD CELLS (BEAKER) (test 0 /100 WBC 0-0 svaf=701) NEUTROPHILS RELATIVE PERCENT (BEAKER) (test 89 % mzdv=589) LYMPHOCYTES RELATIVE PERCENT (BEAKER) (test 4 % dvca=079) MONOCYTES RELATIVE PERCENT (BEAKER) (test 8 % rvht=167) EOSINOPHILS RELATIVE PERCENT (BEAKER) (test 0 % fetn=939) BASOPHILS RELATIVE PERCENT (BEAKER) (test 0 % jfjv=553) NEUTROPHILS ABSOLUTE COUNT (BEAKER) (test 7.72 K/ L 1.80-8.00 smct=664) LYMPHOCYTES ABSOLUTE COUNT (BEAKER) (test 0.31 K/ L 1.48-4.50 kqfo=139) MONOCYTES ABSOLUTE COUNT (BEAKER) (test sweh=155) 0.68 K/ L 0.00-1.30 EOSINOPHILS ABSOLUTE COUNT (BEAKER) (test 0.02 K/ L 0.00-0.50 yooi=739) BASOPHILS ABSOLUTE COUNT (BEAKER) (test zrca=462) 0.00 K/ L 0.00-0.20 0.00POCT-GLUCOSE [id number] 22:11:00 Test Item Value Reference Range Comments POC-GLUCOSE METER (BEAKER) 295 mg/dL 70-110 TESTED AT [address] (test veld=7053) [facility] [address] POCT-GLUCOSE [id number] 16:50:00 Test Item Value Reference Range Comments POC-GLUCOSE METER (BEAKER) 149 mg/dL 70-110 TESTED AT [address] (test kdyq=2846) [facility] [address] [id number] 15:04:00 Test Item Value Reference Range Comments POTASSIUM (BEAKER) (test cviy=762) 4.0 meq/L 3.5-5.1 [id number] 15:04:00 Test Item Value Reference Range Comments MAGNESIUM (BEAKER) (test iioa=403) 2.7 mg/dL 1.6-2.6 POCT-GLUCOSE [id number] 12:34:00 Test Item Value Reference Range Comments POC-GLUCOSE METER (BEAKER) 128 mg/dL 70-110 TESTED AT [address] (test hwgu=1939) [facility] [address] POCT-GLUCOSE [id number] 11:39:00 Test Item Value Reference Range Comments POC-GLUCOSE METER (BEAKER) 120 mg/dL 70-110 TESTED AT [address] (test qfsr=4577) [place] [id number] POCT-GLUCOSE [id number] 07:51:00 Test Item Value Reference Range Comments POC-GLUCOSE METER (BEAKER) 87 mg/dL 70-110 TESTED AT [address] (test rwoe=0825) [facility] [address] BLOOD GAS, [id number] 05:59:00 Test Item Value Reference Range Comments PH ARTERIAL (BEAKER) (test brrf=841) 7.41 7.35-7.45 PCO2 ARTERIAL (BEAKER) (test gqaq=504) 60 mmHg 35-45 PO2 ARTERIAL (BEAKER) (test mtfn=927) 179 mmHg 80-90 O2 SATURATION ARTERIAL (BEAKER) (test mjmd=840) 99.2 % 96.0-97.0 HCO3 ARTERIAL (BEAKER) (test bvtc=837) 38 mmol/L 21-29 BASE EXCESS ARTERIAL (BEAKER) (test xvsq=065) 11.6 mmol/L -2.0-3.0 PATIENT TEMPERATURE (BEAKER) (test uivi=3941) 36.5 C FIO2 (BEAKER) (test eweb=3243) 50.0 % CBC W/PLT COUNT & AUTO [id number] 05:40:00 Test Item Value Reference Range Comments WHITE BLOOD CELL COUNT (BEAKER) (test gzxt=701) 9.1 K/ L 4.0-10.0 RED BLOOD CELL COUNT (BEAKER) (test njkf=103) 2.62 M/ L 4.20-5.80 HEMOGLOBIN (BEAKER) (test yiar=580) 8.7 GM/DL 13.0-16.8 HEMATOCRIT (BEAKER) (test icav=871) 25.9 % 40.0-50.0 MEAN CORPUSCULAR VOLUME (BEAKER) (test cftz=183) 98.8 fL 82.0-98.0 MEAN CORPUSCULAR HEMOGLOBIN (BEAKER) (test 33.0 pg 27.0-33.0 zvgc=829) MEAN CORPUSCULAR HEMOGLOBIN CONC (BEAKER) (test 33.4 GM/DL 32.0-36.0 wgcc=548) RED CELL DISTRIBUTION WIDTH (BEAKER) (test 15.9 % 10.3-14.2 mgwl=899) PLATELET COUNT (BEAKER) (test vnpc=025) 30 K/CU MM 150-430 MEAN PLATELET VOLUME (BEAKER) (test syhb=463) 9.4 fL 6.5-10.5 NUCLEATED RED BLOOD CELLS (BEAKER) (test 0 /100 WBC 0-0 mkcs=471) NEUTROPHILS RELATIVE PERCENT (BEAKER) (test 87 % pafq=866) LYMPHOCYTES RELATIVE PERCENT (BEAKER) (test 4 % iaba=384) MONOCYTES RELATIVE PERCENT (BEAKER) (test 9 % lzva=241) EOSINOPHILS RELATIVE PERCENT (BEAKER) (test 0 % bbgp=040) BASOPHILS RELATIVE PERCENT (BEAKER) (test 0 % cimv=363) NEUTROPHILS ABSOLUTE COUNT (BEAKER) (test 7.93 K/ L 1.80-8.00 rwfh=553) LYMPHOCYTES ABSOLUTE COUNT (BEAKER) (test 0.32 K/ L 1.48-4.50 iuay=712) MONOCYTES ABSOLUTE COUNT (BEAKER) (test ujjm=073) 0.81 K/ L 0.00-1.30 EOSINOPHILS ABSOLUTE COUNT (BEAKER) (test 0.01 K/ L 0.00-0.50 uiff=255) BASOPHILS ABSOLUTE COUNT (BEAKER) (test lblh=960) 0.01 K/ L 0.00-0.20 0.00BASI METABOLIC [id number] 04:53:00 Test Item Value Reference Range Comments SODIUM (BEAKER) (test 135 meq/L 136-145 ugyh=962) POTASSIUM (BEAKER) (test 4.2 meq/L 3.5-5.1 bmcw=244) CHLORIDE (BEAKER) (test 92 meq/L 98-107 lcth=951) CO2 (BEAKER) (test 36 meq/L 22-29 wege=475) BLOOD UREA NITROGEN 48 mg/dL 7-21 (BEAKER) (test qzqn=097) CREATININE (BEAKER) (test 0.89 mg/dL 0.57-1.25 lbsa=308) GLUCOSE RANDOM (BEAKER) 105 mg/dL 70-105 (test myod=672) CALCIUM (BEAKER) (test 8.4 mg/dL 8.4-10.2 urxb=508) EGFR (BEAKER) (test mL/min/1.73 sq m INSUFFICIENT CLINICAL DATA evne=7084) TO CALCULATE ESTIMATED GFR. Check Serum Magnesium level 2 hours after IV magnesium replacement.[id number] -[id number] 04:43:00 Test Item Value Reference Range Comments POTASSIUM (BEAKER) (test dfuj=721) 4.2 meq/L 3.5-5.1 Check Serum Magnesium level 2 hours after IV magnesium replacement.[id number] -[id number] 04:43:00 Test Item Value Reference Range Comments MAGNESIUM (BEAKER) (test rrkk=838) 2.5 mg/dL 1.6-2.6 Check Serum Magnesium level 2 hours after IV magnesium replacement.HEPATIC FUNCTION [id number] 04:43:00 Test Item Value Reference Range Comments TOTAL PROTEIN (BEAKER) (test dwqb=347) 6.4 gm/dL 6.0-8.3 ALBUMIN (BEAKER) (test rwtb=3894) 3.4 g/dL 3.5-5.0 BILIRUBIN TOTAL (BEAKER) (test slex=686) 1.6 mg/dL 0.2-1.2 BILIRUBIN DIRECT (BEAKER) (test xeeh=316) 0.9 mg/dL 0.1-0.5 ALKALINE PHOSPHATASE (BEAKER) (test snuf=127) 100 U/L 40-150 AST (SGOT) (BEAKER) (test nrfw=656) 27 U/L 5-34 ALT (SGPT) (BEAKER) (test wimw=664) 27 U/L 6-55 Check Serum Magnesium level 2 hours after IV magnesium replacement.PROTHROMBIN [id number] 04:33:00 Test Item Value Reference Range Comments PROTIME (BEAKER) (test aool=417) 16.6 seconds 11.7-14.7 INR (BEAKER) (test jtzy=925) 1.4 <=5.9 RECOMMENDED COUMADIN/WARFARIN INR THERAPY RANGESSTANDARD DOSE: 2.0 - 3.0 Includes: PROPHYLAXIS forvenous thrombosis, systemic embolization; TREATMENT for venous thrombosis and/or pulmonary embolus.HIGH RISK: Target INR is 2.5-3.5 for patients with mechanical heart valves.[id number] 01:32:00 Test Item Value Reference Range Comments POTASSIUM (BEAKER) (test kkgu=931) 4.0 meq/L 3.5-5.1 Check Serum Magnesium level 2 hours after IV magnesium replacement.[id number] -04-09 01:32:00 Test Item Value Reference Range Comments MAGNESIUM (BEAKER) (test cumm=377) 2.6 mg/dL 1.6-2.6 Check Serum Magnesium level 2 hours after IV magnesium replacement.POCT-GLUCOSE [id number] 01:04:00 Test Item Value Reference Range Comments POC-GLUCOSE METER (BEAKER) 142 mg/dL 70-110 TESTED AT [address] (test xyga=1559) [place] [address] [id number] 18:48:00 Test Item Value Reference Range Comments POTASSIUM (BEAKER) (test kuho=870) 4.5 meq/L 3.5-5.1 Check Serum Magnesium level 2 hours after IV magnesium replacement.[id number] -04-08 18:48:00 Test Item Value Reference Range Comments MAGNESIUM (BEAKER) (test vlyb=401) 2.5 mg/dL 1.6-2.6 Check Serum Magnesium level 2 hours after IV magnesium replacement.CALCIUM, [id number] 18:33:00 Test Item Value Reference Range Comments CALCIUM IONIZED (BEAKER) (test etnj=787) 1.13 mmol/L 1.12-1.27 PH, BLOOD (BEAKER) (test zmfk=7175) 7.39 Check serum Ionized Calcium level after 4 hours after IV Calcium replacement.POCT-GLUCOSE [id number] 17:19:00 Test Item Value Reference Range Comments POC-GLUCOSE METER (BEAKER) 169 mg/dL 70-110 TESTED AT [address] (test xtlz=4122) [place] [address] [id number] 13:12:00 Test Item Value Reference Range Comments POTASSIUM (BEAKER) (test olsc=023) 3.6 meq/L 3.5-5.1 Check Serum Magnesium level 2 hours after IV magnesium replacement.[id number] -[id number] 13:12:00 Test Item Value Reference Range Comments MAGNESIUM (BEAKER) (test ufju=742) 2.1 mg/dL 1.6-2.6 Check Serum Magnesium level 2 hours after IV magnesium replacement.POCT-GLUCOSE [id number] 12:25:00 Test Item Value Reference Range Comments POC-GLUCOSE METER (BEAKER) 149 mg/dL 70-110 TESTED AT [address] (test jffk=2800) [place] [address] CALCIUM, [id number] 12:12:00 Test Item Value Reference Range Comments CALCIUM IONIZED (BEAKER) (test koad=152) 1.07 mmol/L 1.12-1.27 PH, BLOOD (BEAKER) (test xeyd=4777) 7.40 Check serum Ionized Calcium level after 4 hours after IV Calcium replacement.POCT-GLUCOSE [id number] 07:51:00 Test Item Value Reference Range Comments POC-GLUCOSE METER (BEAKER) 92 mg/dL 70-110 TESTED AT [address] (test byer=7356) [place] [id number] BLOOD GAS, [id number] 05:03:00 Test Item Value Reference Range Comments PH ARTERIAL (BEAKER) (test jkit=290) 7.47 7.35-7.45 PCO2 ARTERIAL (BEAKER) (test cwkc=725) 58 mmHg 35-45 PO2 ARTERIAL (BEAKER) (test hzcw=662) 186 mmHg 80-90 O2 SATURATION ARTERIAL (BEAKER) (test dbas=598) 99.3 % 96.0-97.0 HCO3 ARTERIAL (BEAKER) (test hwez=093) 41 mmol/L 21-29 BASE EXCESS ARTERIAL (BEAKER) (test nkyv=277) 15.6 mmol/L -2.0-3.0 PATIENT TEMPERATURE (BEAKER) (test dnfd=3012) 37.0 C FIO2 (BEAKER) (test qukv=8810) 50.0 % CBC W/PLT COUNT & AUTO [id number] 04:18:00 Test Item Value Reference Range Comments WHITE BLOOD CELL COUNT (BEAKER) (test lmoq=542) 11.8 K/ L 4.0-10.0 RED BLOOD CELL COUNT (BEAKER) (test cahw=745) 2.65 M/ L 4.20-5.80 HEMOGLOBIN (BEAKER) (test prnb=240) 8.7 GM/DL 13.0-16.8 HEMATOCRIT (BEAKER) (test cafg=858) 26.2 % 40.0-50.0 MEAN CORPUSCULAR VOLUME (BEAKER) (test olpy=529) 98.7 fL 82.0-98.0 MEAN CORPUSCULAR HEMOGLOBIN (BEAKER) (test 32.8 pg 27.0-33.0 xaaw=831) MEAN CORPUSCULAR HEMOGLOBIN CONC (BEAKER) (test 33.2 GM/DL 32.0-36.0 cpnj=183) RED CELL DISTRIBUTION WIDTH (BEAKER) (test 15.7 % 10.3-14.2 zxnk=493) PLATELET COUNT (BEAKER) (test qzfm=934) 42 K/CU MM 150-430 MEAN PLATELET VOLUME (BEAKER) (test mxlk=145) 8.2 fL 6.5-10.5 NUCLEATED RED BLOOD CELLS (BEAKER) (test 0 /100 WBC 0-0 shdp=241) NEUTROPHILS RELATIVE PERCENT (BEAKER) (test 90 % aarm=282) LYMPHOCYTES RELATIVE PERCENT (BEAKER) (test 3 % wwez=942) MONOCYTES RELATIVE PERCENT (BEAKER) (test 8 % fywj=624) EOSINOPHILS RELATIVE PERCENT (BEAKER) (test 0 % pvpj=855) BASOPHILS RELATIVE PERCENT (BEAKER) (test 0 % dtib=186) NEUTROPHILS ABSOLUTE COUNT (BEAKER) (test 10.60 K/ L 1.80-8.00 zewp=433) LYMPHOCYTES ABSOLUTE COUNT (BEAKER) (test 0.32 K/ L 1.48-4.50 vrji=105) MONOCYTES ABSOLUTE COUNT (BEAKER) (test xhpx=521) 0.91 K/ L 0.00-1.30 EOSINOPHILS ABSOLUTE COUNT (BEAKER) (test 0.01 K/ L 0.00-0.50 fwzs=564) BASOPHILS ABSOLUTE COUNT (BEAKER) (test ausl=448) 0.00 K/ L 0.00-0.20 0.00BASI METABOLIC [id number] 04:12:00 Test Item Value Reference Range Comments SODIUM (BEAKER) (test 139 meq/L 136-145 bonu=924) POTASSIUM (BEAKER) (test 3.9 meq/L 3.5-5.1 yopv=695) CHLORIDE (BEAKER) (test 92 meq/L 98-107 ktlk=769) CO2 (BEAKER) (test 39 meq/L 22-29 tktg=159) BLOOD UREA NITROGEN 44 mg/dL 7-21 (BEAKER) (test qtfy=841) CREATININE (BEAKER) (test 0.95 mg/dL 0.57-1.25 yfcs=228) GLUCOSE RANDOM (BEAKER) 104 mg/dL 70-105 (test jjzn=184) CALCIUM (BEAKER) (test 8.7 mg/dL 8.4-10.2 rlmr=401) EGFR (BEAKER) (test mL/min/1.73 sq m INSUFFICIENT CLINICAL DATA rudm=2288) TO CALCULATE ESTIMATED GFR. [id number] 04:04:00 Test Item Value Reference Range Comments POTASSIUM (BEAKER) (test htry=348) 3.9 meq/L 3.5-5.1 [id number] 04:04:00 Test Item Value Reference Range Comments MAGNESIUM (BEAKER) (test eceb=679) 2.4 mg/dL 1.6-2.6 HEPATIC FUNCTION [id number] 04:04:00 Test Item Value Reference Range Comments TOTAL PROTEIN (BEAKER) (test osjf=777) 6.6 gm/dL 6.0-8.3 ALBUMIN (BEAKER) (test sutv=0301) 3.5 g/dL 3.5-5.0 BILIRUBIN TOTAL (BEAKER) (test xdog=919) 1.7 mg/dL 0.2-1.2 BILIRUBIN DIRECT (BEAKER) (test xcvv=995) 0.9 mg/dL 0.1-0.5 ALKALINE PHOSPHATASE (BEAKER) (test bspy=529) 98 U/L 40-150 AST (SGOT) (BEAKER) (test ngbl=330) 33 U/L 5-34 ALT (SGPT) (BEAKER) (test foiu=002) 26 U/L 6-55 PROTHROMBIN [id number] 03:49:00 Test Item Value Reference Range Comments PROTIME (BEAKER) (test ezzi=956) 16.3 seconds 11.7-14.7 INR (BEAKER) (test wogp=826) 1.3 <=5.9 RECOMMENDED COUMADIN/WARFARIN INR THERAPY RANGESSTANDARD DOSE: 2.0 - 3.0 Includes: PROPHYLAXIS forvenous thrombosis, systemic embolization; TREATMENT for venous thrombosis and/or pulmonary embolus.HIGH RISK: Target INR is 2.5-3.5 for patients with mechanical heart valves.BASIC METABOLIC [id number] 00:47: 00 Test Item Value Reference Range Comments SODIUM (BEAKER) (test 137 meq/L 136-145 yorb=947) POTASSIUM (BEAKER) (test 4.0 meq/L 3.5-5.1 ouip=785) CHLORIDE (BEAKER) (test 93 meq/L 98-107 cacc=939) CO2 (BEAKER) (test 36 meq/L 22-29 vlix=798) BLOOD UREA NITROGEN 45 mg/dL 7-21 (BEAKER) (test khgm=593) CREATININE (BEAKER) (test 1.03 mg/dL 0.57-1.25 dqxl=796) GLUCOSE RANDOM (BEAKER) 146 mg/dL 70-105 (test wwpk=726) CALCIUM (BEAKER) (test 7.9 mg/dL 8.4-10.2 vvif=876) EGFR (BEAKER) (test mL/min/1.73 sq m INSUFFICIENT CLINICAL DATA rmwm=4870) TO CALCULATE ESTIMATED GFR. Check Serum Magnesium level 2 hours after IV magnesium replacement.CBC W/PLT COUNT & AUTO [id number] 00:10:00 Test Item Value Reference Range Comments WHITE BLOOD CELL COUNT (BEAKER) (test nioh=554) 11.3 K/ L 4.0-10.0 RED BLOOD CELL COUNT (BEAKER) (test gxsd=297) 2.58 M/ L 4.20-5.80 HEMOGLOBIN (BEAKER) (test dhmn=242) 8.5 GM/DL 13.0-16.8 HEMATOCRIT (BEAKER) (test bycn=466) 25.5 % 40.0-50.0 MEAN CORPUSCULAR VOLUME (BEAKER) (test kjfh=599) 99.0 fL 82.0-98.0 MEAN CORPUSCULAR HEMOGLOBIN (BEAKER) (test 32.9 pg 27.0-33.0 vmsx=579) MEAN CORPUSCULAR HEMOGLOBIN CONC (BEAKER) (test 33.3 GM/DL 32.0-36.0 dsva=039) RED CELL DISTRIBUTION WIDTH (BEAKER) (test 15.6 % 10.3-14.2 maxb=409) PLATELET COUNT (BEAKER) (test qlgv=225) 40 K/CU MM 150-430 MEAN PLATELET VOLUME (BEAKER) (test toug=803) 8.4 fL 6.5-10.5 NUCLEATED RED BLOOD CELLS (BEAKER) (test 0 /100 WBC 0-0 pxtr=798) NEUTROPHILS RELATIVE PERCENT (BEAKER) (test 90 % omur=850) LYMPHOCYTES RELATIVE PERCENT (BEAKER) (test 2 % yeyo=538) MONOCYTES RELATIVE PERCENT (BEAKER) (test 7 % gfjj=620) EOSINOPHILS RELATIVE PERCENT (BEAKER) (test 0 % graw=291) BASOPHILS RELATIVE PERCENT (BEAKER) (test 1 % ugqo=810) NEUTROPHILS ABSOLUTE COUNT (BEAKER) (test 10.20 K/ L 1.80-8.00 ojaa=188) LYMPHOCYTES ABSOLUTE COUNT (BEAKER) (test 0.19 K/ L 1.48-4.50 lihk=801) MONOCYTES ABSOLUTE COUNT (BEAKER) (test kmil=092) 0.83 K/ L 0.00-1.30 EOSINOPHILS ABSOLUTE COUNT (BEAKER) (test 0.01 K/ L 0.00-0.50 etbj=856) BASOPHILS ABSOLUTE COUNT (BEAKER) (test kvtm=661) 0.07 K/ L 0.00-0.20 0.00CALCIUM, [id number] 00:07:00 Test Item Value Reference Range Comments CALCIUM IONIZED (BEAKER) (test frtj=032) 1.06 mmol/L 1.12-1.27 PH, BLOOD (BEAKER) (test sana=7858) 7.38 [id number] 23:53:00 Test Item Value Reference Range Comments POTASSIUM (BEAKER) (test enlg=291) 4.1 meq/L 3.5-5.1 Check Serum Magnesium level 2 hours after IV magnesium replacement.[id number] -[id number] 23:53:00 Test Item Value Reference Range Comments MAGNESIUM (BEAKER) (test cjbf=829) 2.0 mg/dL 1.6-2.6 Check Serum Magnesium level 2 hours after IV magnesium replacement.POCT-GLUCOSE [id number] 22:39:00 Test Item Value Reference Range Comments POC-GLUCOSE METER (BEAKER) 209 mg/dL 70-[address] [facility] [address] (test nvoq=3168) [facility] [address] POCT-GLUCOSE [id number] 20:00:00 Test Item Value Reference Range Comments POC-GLUCOSE METER (BEAKER) 168 mg/dL 70-[address] [facility] [address] (test gpgt=1994) [facility] [address] [id number] 18:48:00 Test Item Value Reference Range Comments POTASSIUM (BEAKER) (test bhzi=952) 3.9 meq/L 3.5-5.1 Check Serum Magnesium level 2 hours after IV magnesium replacement.[id number] 18:48:00 Test Item Value Reference Range Comments MAGNESIUM (BEAKER) (test yksx=670) 2.2 mg/dL 1.6-2.6 Check Serum Magnesium level 2 hours after IV magnesium replacement.[id number] -04-07 12:21:00 Test Item Value Reference Range Comments POTASSIUM (BEAKER) (test sxff=839) 3.5 meq/L 3.5-5.1 Check Serum Magnesium level 2 hours after IV magnesium replacement.[id number] -04-07 12:21:00 Test Item Value Reference Range Comments MAGNESIUM (BEAKER) (test iyyx=838) 2.2 mg/dL 1.6-2.6 Check Serum Magnesium level 2 hours after IV magnesium replacement.LACTATE DEHYDROGENASE (LDH)2016-09-26 12:08:00 Test Item Value Reference Range Comments LACTATE DEHYDROGENASE (BEAKER) (test ectw=920) 291 U/L 125-220 [id number] 12:06:00 Test Item Value Reference Range Comments D-DIMER QUANTITATIVE (BEAKER) (test xsou=947) 9.38 MG/L FEU <0.50 Intended Use: The D-Dimer Assay can be used to aid in the diagnosis of Deep Vein Thrombosis (DVT) and Pulmonary Embolism Disease (PED).In patients with low pre-test probability, various studies concerning STA Liatest D-dimer test have reported that with a cutoff value of 0.50 MG/L FEU, the Negative Predictive Value (NPV) regarding the exclusion of thrombosis is within 95-100% range.[id number] 11:51:00 Test Item Value Reference Range Comments FIBRINOGEN LEVEL (BEAKER) (test ugmw=089) 247 mg/dl 225-434 BLOOD GAS, [id number] 11:39:00 Test Item Value Reference Range Comments PH ARTERIAL (BEAKER) (test kkkj=327) 7.44 7.35-7.45 PCO2 ARTERIAL (BEAKER) (test kkio=722) 55 mmHg 35-45 PO2 ARTERIAL (BEAKER) (test bzkq=470) 101 mmHg 80-90 O2 SATURATION ARTERIAL (BEAKER) (test qdhi=688) 97.8 % 96.0-97.0 HCO3 ARTERIAL (BEAKER) (test xpiq=288) 37 mmol/L 21-29 BASE EXCESS ARTERIAL (BEAKER) (test klhg=758) 11.2 mmol/L -2.0-3.0 PATIENT TEMPERATURE (BEAKER) (test ftfs=7049) 36.5 C FIO2 (BEAKER) (test vkzp=4480) 36.0 % HEMOGLOBIN [id number] 08:13:00 Test Item Value Reference Range Comments HEMOGLOBIN A1C (BEAKER) (test txgd=511) 5.5 % 4.3-6.1 BLOOD GAS, [id number] 07:04:00 Test Item Value Reference Range Comments PH ARTERIAL (BEAKER) (test nkhn=013) 7.38 7.35-7.45 PCO2 ARTERIAL (BEAKER) (test fnxy=555) 60 mmHg 35-45 PO2 ARTERIAL (BEAKER) (test wvwq=057) 293 mmHg 80-90 O2 SATURATION ARTERIAL (BEAKER) (test tifn=325) 99.6 % 96.0-97.0 HCO3 ARTERIAL (BEAKER) (test lqzn=344) 35 mmol/L 21-29 BASE EXCESS ARTERIAL (BEAKER) (test rrgu=549) 7.9 mmol/L -2.0-3.0 PATIENT TEMPERATURE (BEAKER) (test rzfs=6214) 36.5 C FIO2 (BEAKER) (test pcjm=0978) 60.0 % OXYGEN SATURATION, [id number] 06:13:00 Test Item Value Reference Range Comments O2 SATURATION (MEASURED) (BEAKER) (test byrt=8852) 89.5 % [id number] 05:30:00 Test Item Value Reference Range Comments MAGNESIUM (BEAKER) (test yxlm=499) 2.1 mg/dL 1.6-2.6 HEPATIC FUNCTION [id number] 05:30:00 Test Item Value Reference Range Comments TOTAL PROTEIN (BEAKER) (test wlhr=023) 6.4 gm/dL 6.0-8.3 ALBUMIN (BEAKER) (test beyc=3705) 3.5 g/dL 3.5-5.0 BILIRUBIN TOTAL (BEAKER) (test zooq=605) 1.6 mg/dL 0.2-1.2 BILIRUBIN DIRECT (BEAKER) (test uvhf=427) 0.9 mg/dL 0.1-0.5 ALKALINE PHOSPHATASE (BEAKER) (test mtrp=022) 86 U/L 40-150 AST (SGOT) (BEAKER) (test pqhp=806) 38 U/L 5-34 ALT (SGPT) (BEAKER) (test rxeq=111) 29 U/L 6-55 BASIC METABOLIC [id number] 05:30:00 Test Item Value Reference Range Comments SODIUM (BEAKER) (test 138 meq/L 136-145 bshw=915) POTASSIUM (BEAKER) (test 4.1 meq/L 3.5-5.1 aoqh=422) CHLORIDE (BEAKER) (test 98 meq/L 98-107 wyhr=730) CO2 (BEAKER) (test 31 meq/L 22-29 zqir=001) BLOOD UREA NITROGEN 46 mg/dL 7-21 (BEAKER) (test dnjr=063) CREATININE (BEAKER) (test 1.06 mg/dL 0.57-1.25 xewf=543) GLUCOSE RANDOM (BEAKER) 128 mg/dL 70-105 (test nfay=994) CALCIUM (BEAKER) (test 8.1 mg/dL 8.4-10.2 vfiv=488) EGFR (BEAKER) (test mL/min/1.73 sq m INSUFFICIENT CLINICAL DATA rzzf=0195) TO CALCULATE ESTIMATED GFR. CBC W/PLT COUNT & AUTO [id number] 05:18:00 Test Item Value Reference Range Comments WHITE BLOOD CELL COUNT (BEAKER) (test fdxd=653) 13.3 K/ L 4.0-10.0 RED BLOOD CELL COUNT (BEAKER) (test ltsd=995) 2.68 M/ L 4.20-5.80 HEMOGLOBIN (BEAKER) (test vjge=337) 8.6 GM/DL 13.0-16.8 HEMATOCRIT (BEAKER) (test yttc=145) 26.3 % 40.0-50.0 MEAN CORPUSCULAR VOLUME (BEAKER) (test sgrp=978) 98.1 fL 82.0-98.0 MEAN CORPUSCULAR HEMOGLOBIN (BEAKER) (test 32.2 pg 27.0-33.0 zhaf=475) MEAN CORPUSCULAR HEMOGLOBIN CONC (BEAKER) (test 32.8 GM/DL 32.0-36.0 iykw=696) RED CELL DISTRIBUTION WIDTH (BEAKER) (test 15.5 % 10.3-14.2 kpzw=499) PLATELET COUNT (BEAKER) (test tzqx=583) 40 K/CU MM 150-430 MEAN PLATELET VOLUME (BEAKER) (test efiw=465) 8.7 fL 6.5-10.5 NUCLEATED RED BLOOD CELLS (BEAKER) (test 0 /100 WBC 0-0 kgsb=074) NEUTROPHILS RELATIVE PERCENT (BEAKER) (test 91 % boir=830) LYMPHOCYTES RELATIVE PERCENT (BEAKER) (test 2 % fylg=383) MONOCYTES RELATIVE PERCENT (BEAKER) (test 7 % cdkf=454) EOSINOPHILS RELATIVE PERCENT (BEAKER) (test 0 % ppdu=650) BASOPHILS RELATIVE PERCENT (BEAKER) (test 0 % epnk=570) NEUTROPHILS ABSOLUTE COUNT (BEAKER) (test 12.10 K/ L 1.80-8.00 durs=020) LYMPHOCYTES ABSOLUTE COUNT (BEAKER) (test 0.31 K/ L 1.48-4.50 pkky=874) MONOCYTES ABSOLUTE COUNT (BEAKER) (test twvw=801) 0.87 K/ L 0.00-1.30 EOSINOPHILS ABSOLUTE COUNT (BEAKER) (test 0.01 K/ L 0.00-0.50 ktpu=521) BASOPHILS ABSOLUTE COUNT (BEAKER) (test ppbt=950) 0.00 K/ L 0.00-0.20 0.00PROTHROMBIN [id number] 05:07:00 Test Item Value Reference Range Comments PROTIME (BEAKER) (test sktv=204) 16.7 seconds 11.7-14.7 INR (BEAKER) (test nfqa=624) 1.4 <=5.9 RECOMMENDED COUMADIN/WARFARIN INR THERAPY RANGESSTANDARD DOSE: 2.0 - 3.0 Includes: PROPHYLAXIS forvenous thrombosis, systemic embolization; TREATMENT for venous thrombosis and/or pulmonary embolus.HIGH RISK: Target INR is 2.5-3.5 for patients with mechanical heart valves.BLOOD GAS, [id number] 23:30:00 Test Item Value Reference Range Comments PH ARTERIAL (BEAKER) (test rbhl=646) 7.33 7.35-7.45 PCO2 ARTERIAL (BEAKER) (test chio=887) 60 mmHg 35-45 PO2 ARTERIAL (BEAKER) (test mffa=522) 169 mmHg 80-90 O2 SATURATION ARTERIAL (BEAKER) (test dxly=421) 99.0 % 96.0-97.0 HCO3 ARTERIAL (BEAKER) (test pooj=962) 31 mmol/L 21-29 BASE EXCESS ARTERIAL (BEAKER) (test sljm=025) 4.2 mmol/L -2.0-3.0 PATIENT TEMPERATURE (BEAKER) (test bcqh=1515) 36.5 C FIO2 (BEAKER) (test syty=9391) 36.0 % POTASSIUM-STAT [id number] 23:07:00 Test Item Value Reference Range Comments POTASSIUM (BEAKER) (test onif=463) 4.3 meq/L 3.6-5.5 SODIUM NA-STAT [id number] 23:07:00 Test Item Value Reference Range Comments SODIUM (BEAKER) (test kndk=589) 134 meq/L 135-148 HGB/HCT (H&H) - STAT [id number] 23:07:00 Test Item Value Reference Range Comments HEMOGLOBIN (BEAKER) (test rxcg=847) 9.5 g/dL 13.0-16.8 HEMATOCRIT (BEAKER) (test xjth=423) 28.0 % 40.0-50.0 CALCIUM, [id number] 23:06:00 Test Item Value Reference Range Comments CALCIUM IONIZED (BEAKER) (test inuj=472) 1.15 mmol/L 1.12-1.27 PH, BLOOD (BEAKER) (test cbhc=3744) 7.28 POCT-GLUCOSE [id number] 21:58:00 Test Item Value Reference Range Comments POC-GLUCOSE METER (BEAKER) 202 mg/dL 70-110 TESTED AT [address] (test elqk=3262) [facility] [address] POCT-GLUCOSE [id number] 16:44:00 Test Item Value Reference Range Comments POC-GLUCOSE METER (BEAKER) 220 mg/dL 70-110 TESTED AT [address] (test xtya=2227) [facility] [address] PERIPHERAL BLOOD SMEAR - HOLD [id number] 16:10:00 Test Item Value Reference Range Comments PERIPHERAL SMEAR SAVE (BEAKER) (test lzmg=9740) saved POCT-GLUCOSE [id number] 11:01:00 Test Item Value Reference Range Comments POC-GLUCOSE METER (BEAKER) 152 mg/dL 70-[address] [facility] [address] (test yobz=6451) [facility] [address] POCT-GLUCOSE [id number] 07:16:00 Test Item Value Reference Range Comments POC-GLUCOSE METER (BEAKER) 125 mg/dL 70-110 TESTED AT [address] (test djcn=2130) [facility] [address] BASIC METABOLIC [id number] 03:47:00 Test Item Value Reference Range Comments SODIUM (BEAKER) (test 136 meq/L 136-145 zjwa=370) POTASSIUM (BEAKER) (test 4.0 meq/L 3.5-5.1 uvyv=141) CHLORIDE (BEAKER) (test 101 meq/L 98-107 ffzv=995) CO2 (BEAKER) (test 27 meq/L 22-29 fjfj=124) BLOOD UREA NITROGEN 46 mg/dL 7-21 (BEAKER) (test uhpc=140) CREATININE (BEAKER) (test 1.28 mg/dL 0.57-1.25 omti=577) GLUCOSE RANDOM (BEAKER) 133 mg/dL 70-105 (test jayz=994) CALCIUM (BEAKER) (test 8.4 mg/dL 8.4-10.2 hyfa=122) EGFR (BEAKER) (test mL/min/1.73 sq m INSUFFICIENT CLINICAL DATA psyq=1771) TO CALCULATE ESTIMATED GFR. [id number] 03:46:00 Test Item Value Reference Range Comments MAGNESIUM (BEAKER) (test tqhf=095) 2.2 mg/dL 1.6-2.6 HEPATIC FUNCTION [id number] 03:46:00 Test Item Value Reference Range Comments TOTAL PROTEIN (BEAKER) (test hrts=419) 6.0 gm/dL 6.0-8.3 ALBUMIN (BEAKER) (test csvm=2179) 3.4 g/dL 3.5-5.0 BILIRUBIN TOTAL (BEAKER) (test xxnt=575) 1.7 mg/dL 0.2-1.2 BILIRUBIN DIRECT (BEAKER) (test gnpc=412) 1.0 mg/dL 0.1-0.5 ALKALINE PHOSPHATASE (BEAKER) (test mgvd=930) 72 U/L 40-150 AST (SGOT) (BEAKER) (test gwdz=992) 46 U/L 5-34 ALT (SGPT) (BEAKER) (test pkjm=363) 32 U/L 6-55 [id number] 03:45:00 Test Item Value Reference Range Comments PARTIAL THROMBOPLASTIN TIME (BEAKER) (test 34.2 seconds 22.5-36.0 evpw=448) PROTHROMBIN [id number] 03:44:00 Test Item Value Reference Range Comments PROTIME (BEAKER) (test borf=282) 18.3 seconds 11.7-14.7 INR (BEAKER) (test fhzm=785) 1.5 <=5.9 RECOMMENDED COUMADIN/WARFARIN INR THERAPY RANGESSTANDARD DOSE: 2.0 - 3.0 Includes: PROPHYLAXIS forvenous thrombosis, systemic embolization; TREATMENT for venous thrombosis and/or pulmonary embolus.HIGH RISK: Target INR is 2.5-3.5 for patients with mechanical heart valves.CBC W/PLT COUNT & AUTO [id number] 03:42:00 Test Item Value Reference Range Comments WHITE BLOOD CELL COUNT (BEAKER) (test rykf=689) 17.8 K/ L 4.0-10.0 RED BLOOD CELL COUNT (BEAKER) (test xpxf=937) 2.81 M/ L 4.20-5.80 HEMOGLOBIN (BEAKER) (test vjpw=886) 8.9 GM/DL 13.0-16.8 HEMATOCRIT (BEAKER) (test jird=540) 27.4 % 40.0-50.0 MEAN CORPUSCULAR VOLUME (BEAKER) (test ewli=467) 97.5 fL 82.0-98.0 MEAN CORPUSCULAR HEMOGLOBIN (BEAKER) (test 31.7 pg 27.0-33.0 epjv=287) MEAN CORPUSCULAR HEMOGLOBIN CONC (BEAKER) (test 32.6 GM/DL 32.0-36.0 kgga=635) RED CELL DISTRIBUTION WIDTH (BEAKER) (test 14.8 % 10.3-14.2 drfo=893) PLATELET COUNT (BEAKER) (test oxkx=388) 56 K/CU MM 150-430 MEAN PLATELET VOLUME (BEAKER) (test oyqc=265) 8.6 fL 6.5-10.5 NUCLEATED RED BLOOD CELLS (BEAKER) (test 0 /100 WBC 0-0 jolk=520) NEUTROPHILS RELATIVE PERCENT (BEAKER) (test 89 % fufh=340) LYMPHOCYTES RELATIVE PERCENT (BEAKER) (test 3 % vhld=510) MONOCYTES RELATIVE PERCENT (BEAKER) (test 8 % oagh=132) EOSINOPHILS RELATIVE PERCENT (BEAKER) (test 0 % poll=874) BASOPHILS RELATIVE PERCENT (BEAKER) (test 0 % nztc=088) NEUTROPHILS ABSOLUTE COUNT (BEAKER) (test 15.90 K/ L 1.80-8.00 qmmd=845) LYMPHOCYTES ABSOLUTE COUNT (BEAKER) (test 0.51 K/ L 1.48-4.50 pped=931) MONOCYTES ABSOLUTE COUNT (BEAKER) (test pfsx=363) 1.38 K/ L 0.00-1.30 EOSINOPHILS ABSOLUTE COUNT (BEAKER) (test 0.01 K/ L 0.00-0.50 sttr=211) BASOPHILS ABSOLUTE COUNT (BEAKER) (test fogw=951) 0.00 K/ L 0.00-0.20 0.00OXYGEN SATURATION, [id number] 03:33:00 Test Item Value Reference Range Comments O2 SATURATION (MEASURED) (BEAKER) (test fbdm=0200) 68.8 % POCT-GLUCOSE [id number] 21:40:00 Test Item Value Reference Range Comments POC-GLUCOSE METER (BEAKER) 181 mg/dL 70-110 TESTED AT [address] (test pjxd=2706) [facility] [address] BASIC METABOLIC [id number] 21:06:00 Test Item Value Reference Range Comments SODIUM (BEAKER) (test 136 meq/L 136-145 mtbh=133) POTASSIUM (BEAKER) (test 4.1 meq/L 3.5-5.1 sjcz=564) CHLORIDE (BEAKER) (test 102 meq/L 98-107 tsxy=105) CO2 (BEAKER) (test 22 meq/L 22-29 qcgl=061) BLOOD UREA NITROGEN 40 mg/dL 7-21 (BEAKER) (test dvxz=071) CREATININE (BEAKER) (test 1.38 mg/dL 0.57-1.25 cfol=306) GLUCOSE RANDOM (BEAKER) 207 mg/dL 70-105 (test ymbv=601) CALCIUM (BEAKER) (test 8.6 mg/dL 8.4-10.2 xlka=205) EGFR (BEAKER) (test mL/min/1.73 sq m INSUFFICIENT CLINICAL DATA rvof=5587) TO CALCULATE ESTIMATED GFR. [id number] 21:04:00 Test Item Value Reference Range Comments PHOSPHORUS (BEAKER) (test tony=780) 5.4 mg/dL 2.3-4.7 [id number] 21:04:00 Test Item Value Reference Range Comments MAGNESIUM (BEAKER) (test ddzn=276) 2.2 mg/dL 1.6-2.6 CALCIUM, [id number] 20:47:00 Test Item Value Reference Range Comments CALCIUM IONIZED (BEAKER) (test ocsq=372) 1.13 mmol/L 1.12-1.27 PH, BLOOD (BEAKER) (test wgkg=2168) 7.38 POCT-GLUCOSE [id number] 17:51:00 Test Item Value Reference Range Comments POC-GLUCOSE METER (BEAKER) 173 mg/dL 70-110 TESTED AT [address] (test usfr=2097) [facility] [address] LACTIC ACID, ARTERIAL, WHOLE [id number] 13:02:00 Test Item Value Reference Range Comments LACTATE BLOOD ARTERIAL (2) 1.4 mmol/L 0.5-2.2 Specimen slightly hemolyzed (BEAKER) (test bait=0847) Effective 10/24/2015: Units/Reference Range ChangeNew: 0.5-2.2 mmol/L Previous: 5 -20 mg/dLSpecimen slightly ictericOXYGEN SATURATION, [id number] 07:40:00 Test Item Value Reference Range Comments O2 SATURATION (MEASURED) (BEAKER) (test vmbt=9561) 71.2 % BLOOD GAS, [id number] 07:39:00 Test Item Value Reference Range Comments PH ARTERIAL (BEAKER) (test vkbe=878) 7.42 7.35-7.45 PCO2 ARTERIAL (BEAKER) (test ikrn=064) 42 mmHg 35-45 PO2 ARTERIAL (BEAKER) (test npzq=964) 126 mmHg 80-90 O2 SATURATION ARTERIAL (BEAKER) (test hvem=339) 98.6 % 96.0-97.0 HCO3 ARTERIAL (BEAKER) (test glpl=870) 27 mmol/L 21-29 BASE EXCESS ARTERIAL (BEAKER) (test dext=686) 1.8 mmol/L -2.0-3.0 PATIENT TEMPERATURE (BEAKER) (test lfsq=9507) 36.3 C FIO2 (BEAKER) (test zmlz=2274) 36.0 % [id number] 05:56:00 Test Item Value Reference Range Comments ACTIVATED CLOTTING TIME 131 sec TESTED AT [address] [facility] (test tlji=685) [place] [id number] 05:56:00 Test Item Value Reference Range Comments ACTIVATED CLOTTING TIME > sec OUTSIDE MEASURING RANGETESTED AT ([facility]) (test wupj=588) [place] [address] [id number] 05:56:00 Test Item Value Reference Range Comments ACTIVATED CLOTTING TIME 441 sec TESTED AT [address] [facility] (test dsdd=547) [place] [address] [id number] 05:56:00 Test Item Value Reference Range Comments ACTIVATED CLOTTING TIME 533 sec TESTED AT [address] [facility] (test acjr=234) [place] [address] [id number] 05:56:00 Test Item Value Reference Range Comments ACTIVATED CLOTTING TIME 528 sec TESTED AT [address] [facility] (test nubj=855) [place] [address] [id number] 05:56:00 Test Item Value Reference Range Comments ACTIVATED CLOTTING TIME 415 sec TESTED AT [address] [facility] (test noxm=287) [place] [address] [id number] 05:56:00 Test Item Value Reference Range Comments ACTIVATED CLOTTING TIME 301 sec TESTED AT [address] [facility] (test czdh=697) [place] [address] POCT-GLUCOSE [id number] 05:45:00 Test Item Value Reference Range Comments POC-GLUCOSE METER (BEAKER) 116 mg/dL 70-[address] [facility] [address] (test mbqc=5080) [facility] [address] BASIC METABOLIC [id number] 02:50:00 Test Item Value Reference Range Comments SODIUM (BEAKER) (test 139 meq/L 136-145 bnuy=494) POTASSIUM (BEAKER) (test 4.5 meq/L 3.5-5.1 oppc=925) CHLORIDE (BEAKER) (test 105 meq/L 98-107 cobj=628) CO2 (BEAKER) (test 23 meq/L 22-29 bcyd=323) BLOOD UREA NITROGEN 42 mg/dL 7-21 (BEAKER) (test dysh=124) CREATININE (BEAKER) (test 1.28 mg/dL 0.57-1.25 fbvt=954) GLUCOSE RANDOM (BEAKER) 121 mg/dL 70-105 (test jujn=878) CALCIUM (BEAKER) (test 9.3 mg/dL 8.4-10.2 pjcg=958) EGFR (BEAKER) (test mL/min/1.73 sq m INSUFFICIENT CLINICAL DATA shvh=4169) TO CALCULATE ESTIMATED GFR. Specimen slightly ictericHEPATIC FUNCTION [id number] 02:42:00 Test Item Value Reference Range Comments TOTAL PROTEIN (BEAKER) (test ddkc=806) 5.8 gm/dL 6.0-8.3 ALBUMIN (BEAKER) (test qohr=5452) 3.3 g/dL 3.5-5.0 BILIRUBIN TOTAL (BEAKER) (test ifas=557) 2.2 mg/dL 0.2-1.2 BILIRUBIN DIRECT (BEAKER) (test fvgn=638) 1.2 mg/dL 0.1-0.5 ALKALINE PHOSPHATASE (BEAKER) (test vszv=372) 67 U/L 40-150 AST (SGOT) (BEAKER) (test cdlj=092) 49 U/L 5-34 ALT (SGPT) (BEAKER) (test lbda=764) 30 U/L 6-55 Specimen slightly ictericCBC W/PLT COUNT & AUTO [id number] 02:34 :00 Test Item Value Reference Range Comments WHITE BLOOD CELL COUNT (BEAKER) (test erzr=623) 23.7 K/ L 4.0-10.0 RED BLOOD CELL COUNT (BEAKER) (test wtjk=375) 3.08 M/ L 4.20-5.80 HEMOGLOBIN (BEAKER) (test orqr=054) 9.7 GM/DL 13.0-16.8 HEMATOCRIT (BEAKER) (test ceen=204) 30.0 % 40.0-50.0 MEAN CORPUSCULAR VOLUME (BEAKER) (test knfr=665) 97.4 fL 82.0-98.0 MEAN CORPUSCULAR HEMOGLOBIN (BEAKER) (test 31.4 pg 27.0-33.0 cati=827) MEAN CORPUSCULAR HEMOGLOBIN CONC (BEAKER) (test 32.2 GM/DL 32.0-36.0 dorq=127) RED CELL DISTRIBUTION WIDTH (BEAKER) (test 15.4 % 10.3-14.2 xmcx=895) PLATELET COUNT (BEAKER) (test gtki=641) 128 K/CU MM 150-430 MEAN PLATELET VOLUME (BEAKER) (test uumt=650) 7.7 fL 6.5-10.5 NUCLEATED RED BLOOD CELLS (BEAKER) (test 0 /100 WBC 0-0 taxz=833) NEUTROPHILS RELATIVE PERCENT (BEAKER) (test 87 % nnxz=919) LYMPHOCYTES RELATIVE PERCENT (BEAKER) (test 3 % uutt=417) MONOCYTES RELATIVE PERCENT (BEAKER) (test 9 % otkf=281) EOSINOPHILS RELATIVE PERCENT (BEAKER) (test 0 % pidy=485) BASOPHILS RELATIVE PERCENT (BEAKER) (test 1 % tljw=076) NEUTROPHILS ABSOLUTE COUNT (BEAKER) (test 20.70 K/ L 1.80-8.00 nkxg=347) LYMPHOCYTES ABSOLUTE COUNT (BEAKER) (test 0.71 K/ L 1.48-4.50 grer=896) MONOCYTES ABSOLUTE COUNT (BEAKER) (test 2.09 K/ L 0.00-1.30 squs=468) EOSINOPHILS ABSOLUTE COUNT (BEAKER) (test 0.02 K/ L 0.00-0.50 wyfb=924) BASOPHILS ABSOLUTE COUNT (BEAKER) (test 0.12 K/ L 0.00-0.20 erba=073) [id number] 02:27:00 Test Item Value Reference Range Comments FIBRINOGEN LEVEL (BEAKER) (test sjkh=947) 225 mg/dl 225-434 [id number] 02:27:00 Test Item Value Reference Range Comments PARTIAL THROMBOPLASTIN TIME (BEAKER) (test 33.6 seconds 22.5-36.0 pvsh=637) PROTHROMBIN [id number] 02:26:00 Test Item Value Reference Range Comments PROTIME (BEAKER) (test ckdi=334) 18.3 seconds 11.7-14.7 INR (BEAKER) (test cizs=637) 1.5 <=5.9 RECOMMENDED COUMADIN/WARFARIN INR THERAPY RANGESSTANDARD DOSE: 2.0 - 3.0 Includes: PROPHYLAXIS forvenous thrombosis, systemic embolization; TREATMENT for venous thrombosis and/or pulmonary embolus.HIGH RISK: Target INR is 2.5-3.5 for patients with mechanical heart valves.[id number] 00:45:00 Test Item Value Reference Range Comments MAGNESIUM (BEAKER) (test vplp=869) 2.4 mg/dL 1.6-2.6 POCT-GLUCOSE [id number] 00:03:00 Test Item Value Reference Range Comments POC-GLUCOSE METER (BEAKER) 136 mg/dL 70-110 TESTED AT [address] (test llrp=7438) [place] [id number] POCT-GLUCOSE [id number] 22:33:00 Test Item Value Reference Range Comments POC-GLUCOSE METER (BEAKER) 136 mg/dL 70-110 TESTED AT [address] (test jspx=7317) [place] [address] (MANUAL DIFFERENTIAL)[id number] 22:03:00 Test Item Value Reference Range Comments NEUTROPHILS - REL (DIFF) (BEAKER) (test 85 % xwom=0217) LYMPHOCYTES - REL (DIFF) (BEAKER) (test 5 % aaos=2052) MONOCYTES - REL (DIFF) (BEAKER) (test nnfl=1308) 7 % BANDS - REL (DIFF) (BEAKER) (test qeoq=9982) 3 % 0-10 NEUTROPHILS - ABS (DIFF) (BEAKER) (test 24.06 K/ L 1.80-8.00 dnce=3269) LYMPHOCYTES - ABS (DIFF) (BEAKER) (test 1.42 K/ L 1.48-4.50 hwqw=8819) MONOCYTES - ABS (DIFF) (BEAKER) (test lomc=4449) 1.98 K/ L 0.00-1.30 BANDS-ABS (DIFF) (BEAKER) (test lbgl=4131) 0.8 K/ L 0.0-0.8 TOTAL COUNTED (BEAKER) (test shqp=8406) 100 BANDS + SEGMENTED NEUTROPHILS (BEAKER) (test 24.90 kylu=1394) WBC MORPHOLOGY (BEAKER) (test qsds=791) Normal PLT MORPHOLOGY (BEAKER) (test dvtq=064) Normal RBC MORPHOLOGY (BEAKER) (test ddjm=222) Normal CBC W/PLT COUNT & AUTO [id number] 22:02:00 Test Item Value Reference Range Comments WHITE BLOOD CELL COUNT (BEAKER) (test qnmy=639) 28.3 K/ L 4.0-10.0 RED BLOOD CELL COUNT (BEAKER) (test rsaj=618) 3.35 M/ L 4.20-5.80 HEMOGLOBIN (BEAKER) (test qpfa=402) 10.5 GM/DL 13.0-16.8 HEMATOCRIT (BEAKER) (test lrit=243) 32.3 % 40.0-50.0 MEAN CORPUSCULAR VOLUME (BEAKER) (test swip=984) 96.6 fL 82.0-98.0 MEAN CORPUSCULAR HEMOGLOBIN (BEAKER) (test 31.3 pg 27.0-33.0 dgeo=618) MEAN CORPUSCULAR HEMOGLOBIN CONC (BEAKER) (test 32.4 GM/DL 32.0-36.0 odnl=292) RED CELL DISTRIBUTION WIDTH (BEAKER) (test 14.9 % 10.3-14.2 beaf=395) PLATELET COUNT (BEAKER) (test xkpx=938) 139 K/CU MM 150-430 MEAN PLATELET VOLUME (BEAKER) (test uvss=589) 7.9 fL 6.5-10.5 NUCLEATED RED BLOOD CELLS (BEAKER) (test 0 /100 WBC 0-0 hjif=342) 0.000.550.000.000.000.00LACTIC ACID, ARTERIAL, WHOLE [id number] 21:40:00 Test Item Value Reference Range Comments LACTATE BLOOD ARTERIAL (2) (BEAKER) (test 1.3 mmol/L 0.5-2.2 jsml=3762) Effective 10/24/2015: Units/Reference Range ChangeNew: 0.5-2.2 mmol/L Previous: 5 -20 mg/dLSpecimen slightly ictericPROTHROMBIN [id number] 21:34:00 Test Item Value Reference Range Comments PROTIME (BEAKER) (test uanu=052) 18.7 seconds 11.7-14.7 INR (BEAKER) (test vuaz=772) 1.6 <=5.9 RECOMMENDED COUMADIN/WARFARIN INR THERAPY RANGESSTANDARD DOSE: 2.0 - 3.0 Includes: PROPHYLAXIS forvenous thrombosis, systemic embolization; TREATMENT for venous thrombosis and/or pulmonary embolus.HIGH RISK: Target INR is 2.5-3.5 for patients with mechanical heart valves.[id number] 21:34:00 Test Item Value Reference Range Comments PARTIAL THROMBOPLASTIN TIME (BEAKER) (test 34.3 seconds 22.5-36.0 lvdz=170) [id number] 21:28:00 Test Item Value Reference Range Comments POTASSIUM (BEAKER) (test nhkn=123) 4.6 meq/L 3.5-5.1 POCT-GLUCOSE [id number] 21:27:00 Test Item Value Reference Range Comments POC-GLUCOSE METER (BEAKER) 150 mg/dL 70-110 TESTED AT [address] (test jjrw=0279) [facility] [address] BLOOD GAS, [id number] 21:17:00 Test Item Value Reference Range Comments PH ARTERIAL (BEAKER) (test cxpr=902) 7.38 7.35-7.45 PCO2 ARTERIAL (BEAKER) (test bfme=547) 49 mmHg 35-45 PO2 ARTERIAL (BEAKER) (test hiuf=951) 102 mmHg 80-90 O2 SATURATION ARTERIAL (BEAKER) (test ffec=806) 97.5 % 96.0-97.0 HCO3 ARTERIAL (BEAKER) (test mmwg=496) 28 mmol/L 21-29 BASE EXCESS ARTERIAL (BEAKER) (test smyj=019) 2.5 mmol/L -2.0-3.0 PATIENT TEMPERATURE (BEAKER) (test jcpf=9142) 37.1 C FIO2 (BEAKER) (test fmlf=8558) 40.0 % 30 minutes s/p bipap [id number] 20:29:00 Test Item Value Reference Range Comments POTASSIUM (BEAKER) (test ybxs=144) 4.6 meq/L 3.5-5.1 Check Serum Potassium level 2 hours after oral potassium replacement completed or 30 min after intravenous potassium replacement.BLOOD GAS, [id number] 20:06:00 Test Item Value Reference Range Comments PH ARTERIAL (BEAKER) (test pwia=289) 7.28 7.35-7.45 PCO2 ARTERIAL (BEAKER) (test xxvr=371) 67 mmHg 35-45 PO2 ARTERIAL (BEAKER) (test gibx=887) 80 mmHg 80-90 O2 SATURATION ARTERIAL (BEAKER) (test inun=138) 94.0 % 96.0-97.0 HCO3 ARTERIAL (BEAKER) (test ewpf=272) 31 mmol/L 21-29 BASE EXCESS ARTERIAL (BEAKER) (test xyxm=648) 2.8 mmol/L -2.0-3.0 PATIENT TEMPERATURE (BEAKER) (test iwvl=9509) 37.0 C FIO2 (BEAKER) (test frrm=4065) 36.0 % POTASSIUM-STAT [id number] 17:23:00 Test Item Value Reference Range Comments POTASSIUM (BEAKER) (test lrph=108) 4.2 meq/L 3.6-5.5 GLUCOSE-STAT [id number] 17:23:00 Test Item Value Reference Range Comments GLUCOSE RANDOM (BEAKER) (test dsjq=983) 133 mg/dL 70-110 BLOOD GAS, [id number] 17:23:00 Test Item Value Reference Range Comments PH ARTERIAL (BEAKER) (test xupa=902) 7.44 7.35-7.45 PCO2 ARTERIAL (BEAKER) (test lhjy=081) 42 mmHg 35-45 PO2 ARTERIAL (BEAKER) (test oago=063) 107 mmHg 80-90 O2 SATURATION ARTERIAL (BEAKER) (test wioi=972) 98.1 % 96.0-97.0 HCO3 ARTERIAL (BEAKER) (test dnyl=090) 28 mmol/L 21-29 BASE EXCESS ARTERIAL (BEAKER) (test uvdv=912) 3.3 mmol/L -2.0-3.0 PATIENT TEMPERATURE (BEAKER) (test aigv=5830) 36.4 C FIO2 (BEAKER) (test ugnj=1378) 40.0 % CBC W/PLT COUNT & AUTO [id number] 14:50:00 Test Item Value Reference Range Comments WHITE BLOOD CELL COUNT (BEAKER) (test krpx=898) 31.6 K/ L 4.0-10.0 RED BLOOD CELL COUNT (BEAKER) (test mued=560) 3.12 M/ L 4.20-5.80 HEMOGLOBIN (BEAKER) (test aowi=830) 10.6 GM/DL 13.0-16.8 HEMATOCRIT (BEAKER) (test dcro=702) 30.0 % 40.0-50.0 MEAN CORPUSCULAR VOLUME (BEAKER) (test oidk=008) 96.3 fL 82.0-98.0 MEAN CORPUSCULAR HEMOGLOBIN (BEAKER) (test 33.9 pg 27.0-33.0 fuzn=501) MEAN CORPUSCULAR HEMOGLOBIN CONC (BEAKER) (test 35.2 GM/DL 32.0-36.0 tkpx=455) RED CELL DISTRIBUTION WIDTH (BEAKER) (test 14.6 % 10.3-14.2 oyzb=445) PLATELET COUNT (BEAKER) (test qksj=293) 124 K/CU MM 150-430 MEAN PLATELET VOLUME (BEAKER) (test fhqw=107) 7.8 fL 6.5-10.5 NUCLEATED RED BLOOD CELLS (BEAKER) (test 0 /100 WBC 0-0 ebxp=836) 0.000.550.000.000.680.000.000.000.00(MANUAL DIFFERENTIAL)2016-09-23 14:50:00 Test Item Value Reference Range Comments NEUTROPHILS - REL (DIFF) (BEAKER) (test 86 % itpn=7711) LYMPHOCYTES - REL (DIFF) (BEAKER) (test 1 % kdzj=2622) MONOCYTES - REL (DIFF) (BEAKER) (test dzdt=4672) 1 % BANDS - REL (DIFF) (BEAKER) (test xtxc=7536) 11 % 0-10 ATYPICAL LYMPHOCYTE - REL (DIFF) (BEAKER) (test 1 % 0-0 fhoa=322) NEUTROPHILS - ABS (DIFF) (BEAKER) (test 27.18 K/ L 1.80-8.00 jqwg=3627) LYMPHOCYTES - ABS (DIFF) (BEAKER) (test 0.32 K/ L 1.48-4.50 pvwz=5157) MONOCYTES - ABS (DIFF) (BEAKER) (test pgwp=8917) 0.32 K/ L 0.00-1.30 BANDS-ABS (DIFF) (BEAKER) (test ibel=2194) 3.5 K/ L 0.0-0.8 ATYPICAL LYMPHOCYTES - ABS (DIFF) (BEAKER) (test 0.32 K/ L 0.00-0.00 dyac=872) TOTAL COUNTED (BEAKER) (test gbyl=4014) 100 BANDS + SEGMENTED NEUTROPHILS (BEAKER) (test 30.65 yeaw=0321) WBC MORPHOLOGY (BEAKER) (test zqww=796) Normal PLT MORPHOLOGY (BEAKER) (test nvdv=735) Normal RBC MORPHOLOGY (BEAKER) (test hirx=649) Normal [id number] 13:33:00 Test Item Value Reference Range Comments FIBRINOGEN LEVEL (BEAKER) (test acji=228) 204 mg/dl 225-434 [id number] 13:33:00 Test Item Value Reference Range Comments PARTIAL THROMBOPLASTIN TIME (BEAKER) (test 37.7 seconds 22.5-36.0 cvyv=331) PROTHROMBIN [id number] 13:32:00 Test Item Value Reference Range Comments PROTIME (BEAKER) (test nzme=776) 20.5 seconds 11.7-14.7 INR (BEAKER) (test easy=955) 1.8 <=5.9 RECOMMENDED COUMADIN/WARFARIN INR THERAPY RANGESSTANDARD DOSE: 2.0 - 3.0 Includes: PROPHYLAXIS forvenous thrombosis, systemic embolization; TREATMENT for venous thrombosis and/or pulmonary embolus.HIGH RISK: Target INR is 2.5-3.5 for patients with mechanical heart valves.CALCIUM, [id number] 13:15:00 Test Item Value Reference Range Comments CALCIUM IONIZED (BEAKER) (test ornd=188) 1.32 mmol/L 1.12-1.27 PH, BLOOD (BEAKER) (test lwtd=2159) 7.42 [id number] 13:13:00 Test Item Value Reference Range Comments MAGNESIUM (BEAKER) (test kctw=666) 2.7 mg/dL 1.6-2.6 LACTIC ACID, ARTERIAL, WHOLE [id number] 13:12:00 Test Item Value Reference Range Comments LACTATE BLOOD ARTERIAL (2) (BEAKER) (test 1.7 mmol/L 0.5-2.2 dnhy=8461) Effective 10/24/2015: Units/Reference Range ChangeNew: 0.5-2.2 mmol/L Previous: 5 -20 mg/dLBLOOD GAS, [id number] 13:08:00 Test Item Value Reference Range Comments PH ARTERIAL (BEAKER) (test ijle=993) 7.45 7.35-7.45 PCO2 ARTERIAL (BEAKER) (test yeen=636) 42 mmHg 35-45 PO2 ARTERIAL (BEAKER) (test uxjc=161) 97 mmHg 80-90 O2 SATURATION ARTERIAL (BEAKER) (test enwf=442) 98.0 % 96.0-97.0 HCO3 ARTERIAL (BEAKER) (test ypyw=632) 29 mmol/L 21-29 BASE EXCESS ARTERIAL (BEAKER) (test cdll=673) 3.6 mmol/L -2.0-3.0 PATIENT TEMPERATURE (BEAKER) (test xppe=5569) 34.9 C FIO2 (BEAKER) (test tunw=3745) 60.0 % SODIUM NA-STAT [id number] 13:08:00 Test Item Value Reference Range Comments SODIUM (BEAKER) (test ezhp=581) 133 meq/L 135-148 POTASSIUM-STAT [id number] 13:08:00 Test Item Value Reference Range Comments POTASSIUM (BEAKER) (test skuc=992) 3.1 meq/L 3.6-5.5 GLUCOSE-STAT [id number] 13:08:00 Test Item Value Reference Range Comments GLUCOSE RANDOM (BEAKER) (test oqxj=846) 139 mg/dL 70-110 OXYGEN SATURATION, [id number] 13:05:00 Test Item Value Reference Range Comments O2 SATURATION (MEASURED) (BEAKER) (test cphv=1062) 76.5 % [id number] 12:00:00 Test Item Value Reference Range Comments FIBRINOGEN LEVEL (BEAKER) (test dpxk=898) 118 mg/dl 225-434 PLATELET [id number] 11:59:00 Test Item Value Reference Range Comments PLATELET COUNT (BEAKER) (test hhhr=556) 129 K/CU MM 150-430 [id number] 11:55:00 Test Item Value Reference Range Comments PARTIAL THROMBOPLASTIN TIME (BEAKER) (test 47.7 seconds 22.5-36.0 oaad=444) CALCIUM, [id number] 11:54:00 Test Item Value Reference Range Comments CALCIUM IONIZED (BEAKER) (test qwyl=847) 1.13 mmol/L 1.12-1.27 PH, BLOOD (BEAKER) (test kdii=1731) 7.44 PROTHROMBIN [id number] 11:54:00 Test Item Value Reference Range Comments PROTIME (BEAKER) (test nuqb=538) 26.0 seconds 11.7-14.7 INR (BEAKER) (test vmmo=983) 2.4 <=5.9 RECOMMENDED COUMADIN/WARFARIN INR THERAPY RANGESSTANDARD DOSE: 2.0 - 3.0 Includes: PROPHYLAXIS forvenous thrombosis, systemic embolization; TREATMENT for venous thrombosis and/or pulmonary embolus.HIGH RISK: Target INR is 2.5-3.5 for patients with mechanical heart valves.BLOOD GAS, [id number] 11:53:00 Test Item Value Reference Range Comments PH ARTERIAL (BEAKER) (test kkjz=634) 7.45 7.35-7.45 PCO2 ARTERIAL (BEAKER) (test klto=942) 40 mmHg 35-45 PO2 ARTERIAL (BEAKER) (test qeba=015) 263 mmHg 80-90 O2 SATURATION ARTERIAL (BEAKER) (test jtwr=449) 99.6 % 96.0-97.0 HCO3 ARTERIAL (BEAKER) (test jwoe=350) 28 mmol/L 21-29 BASE EXCESS ARTERIAL (BEAKER) (test ghlj=555) 3.2 mmol/L -2.0-3.0 PATIENT TEMPERATURE (BEAKER) (test jqje=8308) 36.0 C FIO2 (BEAKER) (test alsh=6983) 100.0 % GLUCOSE-STAT [id number] 11:53:00 Test Item Value Reference Range Comments GLUCOSE RANDOM (BEAKER) (test edtx=180) 158 mg/dL 70-110 POTASSIUM-STAT [id number] 11:53:00 Test Item Value Reference Range Comments POTASSIUM (BEAKER) (test svrj=094) 3.0 meq/L 3.6-5.5 HGB/HCT (H&H) - STAT [id number] 11:53:00 Test Item Value Reference Range Comments HEMOGLOBIN (BEAKER) (test wuif=731) 8.6 g/dL 13.0-16.8 HEMATOCRIT (BEAKER) (test aida=835) 25.0 % 40.0-50.0 SODIUM NA-STAT [id number] 11:52:00 Test Item Value Reference Range Comments SODIUM (BEAKER) (test upmz=932) 135 meq/L 135-148 BLOOD GAS, [id number] 11:26:00 Test Item Value Reference Range Comments PH ARTERIAL (BEAKER) (test gfbm=354) 7.37 7.35-7.45 PCO2 ARTERIAL (BEAKER) (test aqcq=865) 48 mmHg 35-45 PO2 ARTERIAL (BEAKER) (test iijg=976) 76 mmHg 80-90 O2 SATURATION ARTERIAL (BEAKER) (test bvzf=544) 95.5 % 96.0-97.0 HCO3 ARTERIAL (BEAKER) (test gybt=036) 27 mmol/L 21-29 BASE EXCESS ARTERIAL (BEAKER) (test rlfr=388) 0.9 mmol/L -2.0-3.0 PATIENT TEMPERATURE (BEAKER) (test jhxk=4921) 35.6 C FIO2 (BEAKER) (test ilrf=5134) 100.0 % SODIUM NA-STAT [id number] 11:26:00 Test Item Value Reference Range Comments SODIUM (BEAKER) (test enhr=138) 133 meq/L 135-148 POTASSIUM-STAT [id number] 11:26:00 Test Item Value Reference Range Comments POTASSIUM (BEAKER) (test nvdk=442) 3.1 meq/L 3.6-5.5 GLUCOSE-STAT [id number] 11:26:00 Test Item Value Reference Range Comments GLUCOSE RANDOM (BEAKER) (test inzu=570) 158 mg/dL 70-110 HGB/HCT (H&H) - STAT [id number] 11:26:00 Test Item Value Reference Range Comments HEMOGLOBIN (BEAKER) (test kpyd=984) 8.3 g/dL 13.0-16.8 HEMATOCRIT (BEAKER) (test byzy=544) 24.0 % 40.0-50.0 CALCIUM, [id number] 11:26:00 Test Item Value Reference Range Comments CALCIUM IONIZED (BEAKER) (test qxzi=760) 0.86 mmol/L 1.12-1.27 PH, BLOOD (BEAKER) (test dbfy=6270) 7.35 [id number] 11:01:00 Test Item Value Reference Range Comments FIBRINOGEN LEVEL (BEAKER) (test wmkt=817) 99 mg/dl 225-434 PROTHROMBIN [id number] 10:50:00 Test Item Value Reference Range Comments PROTIME (BEAKER) (test nnsi=241) 46.0 seconds 11.7-14.7 INR (BEAKER) (test tynl=554) 4.9 <=5.9 RECOMMENDED COUMADIN/WARFARIN INR THERAPY RANGESSTANDARD DOSE: 2.0 - 3.0 Includes: PROPHYLAXIS forvenous thrombosis, systemic embolization; TREATMENT for venous thrombosis and/or pulmonary embolus.HIGH RISK: Target INR is 2.5-3.5 for patients with mechanical heart valves.PLATELET [id number] 10:47:00 Test Item Value Reference Range Comments PLATELET COUNT (BEAKER) (test pqab=089) 104 K/CU MM 150-430 BLOOD GAS, [id number] 10:30:00 Test Item Value Reference Range Comments PH ARTERIAL (BEAKER) (test kkmi=515) 7.53 7.35-7.45 PCO2 ARTERIAL (BEAKER) (test ikgp=583) 37 mmHg 35-45 PO2 ARTERIAL (BEAKER) (test cqbd=344) 256 mmHg 80-90 O2 SATURATION ARTERIAL (BEAKER) (test bjqs=300) 99.7 % 96.0-97.0 HCO3 ARTERIAL (BEAKER) (test zjeo=377) 31 mmol/L 21-29 BASE EXCESS ARTERIAL (BEAKER) (test onig=550) 7.0 mmol/L -2.0-3.0 PATIENT TEMPERATURE (BEAKER) (test pads=4466) 33.4 C FIO2 (BEAKER) (test ahph=0094) 65.0 % SODIUM NA-STAT [id number] 10:30:00 Test Item Value Reference Range Comments SODIUM (BEAKER) (test qibk=891) 131 meq/L 135-148 POTASSIUM-STAT [id number] 10:30:00 Test Item Value Reference Range Comments POTASSIUM (BEAKER) (test plcu=056) 3.3 meq/L 3.6-5.5 GLUCOSE-STAT [id number] 10:30:00 Test Item Value Reference Range Comments GLUCOSE RANDOM (BEAKER) (test ksyi=897) 122 mg/dL 70-110 HGB/HCT (H&H) - STAT [id number] 10:30:00 Test Item Value Reference Range Comments HEMOGLOBIN (BEAKER) (test ezbv=810) 9.8 g/dL 13.0-16.8 HEMATOCRIT (BEAKER) (test dyvk=001) 29.0 % 40.0-50.0 GLUCOSE-STAT [id number] 09:54:00 Test Item Value Reference Range Comments GLUCOSE RANDOM (BEAKER) (test epww=928) 114 mg/dL 70-110 SODIUM NA-STAT [id number] 09:54:00 Test Item Value Reference Range Comments SODIUM (BEAKER) (test twmy=090) 134 meq/L 135-148 POTASSIUM-STAT [id number] 09:54:00 Test Item Value Reference Range Comments POTASSIUM (BEAKER) (test jlua=909) 3.2 meq/L 3.6-5.5 HGB/HCT (H&H) - STAT [id number] 09:54:00 Test Item Value Reference Range Comments HEMOGLOBIN (BEAKER) (test bdpk=159) 10.2 g/dL 13.0-16.8 HEMATOCRIT (BEAKER) (test ygcj=034) 30.0 % 40.0-50.0 BLOOD GAS, [id number] 09:53:00 Test Item Value Reference Range Comments PH ARTERIAL (BEAKER) (test vsqc=780) 7.58 7.35-7.45 PCO2 ARTERIAL (BEAKER) (test xcqi=285) 32 mmHg 35-45 PO2 ARTERIAL (BEAKER) (test neqa=696) 306 mmHg 80-90 O2 SATURATION ARTERIAL (BEAKER) (test tkzs=119) 99.8 % 96.0-97.0 HCO3 ARTERIAL (BEAKER) (test xexq=650) 30 mmol/L 21-29 BASE EXCESS ARTERIAL (BEAKER) (test rmcs=792) 6.7 mmol/L -2.0-3.0 PATIENT TEMPERATURE (BEAKER) (test pelo=7125) 33.4 C FIO2 (BEAKER) (test navt=3773) 70.0 % BLOOD GAS, [id number] 09:35:00 Test Item Value Reference Range Comments PH ARTERIAL (BEAKER) (test uzxr=026) 7.62 7.35-7.45 PCO2 ARTERIAL (BEAKER) (test wmsv=188) 28 mmHg 35-45 PO2 ARTERIAL (BEAKER) (test auui=329) 345 mmHg 80-90 O2 SATURATION ARTERIAL (BEAKER) (test cvmo=467) 99.8 % 96.0-97.0 HCO3 ARTERIAL (BEAKER) (test ryaq=776) 29 mmol/L 21-29 BASE EXCESS ARTERIAL (BEAKER) (test guno=346) 6.6 mmol/L -2.0-3.0 PATIENT TEMPERATURE (BEAKER) (test jokj=1635) 34.5 C FIO2 (BEAKER) (test klzp=8204) 80.0 % POTASSIUM-STAT [id number] 09:33:00 Test Item Value Reference Range Comments POTASSIUM (BEAKER) (test ssrc=570) 3.2 meq/L 3.6-5.5 SODIUM NA-STAT [id number] 09:33:00 Test Item Value Reference Range Comments SODIUM (BEAKER) (test onke=577) 131 meq/L 135-148 HGB/HCT (H&H) - STAT [id number] 09:33:00 Test Item Value Reference Range Comments HEMOGLOBIN (BEAKER) (test uuyr=164) 9.2 g/dL 13.0-16.8 HEMATOCRIT (BEAKER) (test adla=872) 27.0 % 40.0-50.0 GLUCOSE-STAT [id number] 09:32:00 Test Item Value Reference Range Comments GLUCOSE RANDOM (BEAKER) (test wqbn=792) 92 mg/dL 70-110 CALCIUM, [id number] 08:33:00 Test Item Value Reference Range Comments CALCIUM IONIZED (BEAKER) (test yvys=120) 1.03 mmol/L 1.12-1.27 PH, BLOOD (BEAKER) (test vntx=4446) 7.54 GLUCOSE-STAT [id number] 08:32:00 Test Item Value Reference Range Comments GLUCOSE RANDOM (BEAKER) (test xftg=537) 81 mg/dL 70-110 BLOOD GAS, [id number] 08:32:00 Test Item Value Reference Range Comments PH ARTERIAL (BEAKER) (test zkdd=781) 7.54 7.35-7.45 PCO2 ARTERIAL (BEAKER) (test qpws=862) 39 mmHg 35-45 PO2 ARTERIAL (BEAKER) (test lhhs=509) 113 mmHg 80-90 O2 SATURATION ARTERIAL (BEAKER) (test casq=906) 98.6 % 96.0-97.0 HCO3 ARTERIAL (BEAKER) (test gycz=670) 33 mmol/L 21-29 BASE EXCESS ARTERIAL (BEAKER) (test bjzh=931) 9.5 mmol/L -2.0-3.0 PATIENT TEMPERATURE (BEAKER) (test fkmk=1059) 37.0 C FIO2 (BEAKER) (test pvkg=9936) 28.0 % SODIUM NA-STAT [id number] 08:32:00 Test Item Value Reference Range Comments SODIUM (BEAKER) (test vqef=792) 133 meq/L 135-148 POTASSIUM-STAT [id number] 08:32:00 Test Item Value Reference Range Comments POTASSIUM (BEAKER) (test kxoz=613) 2.9 meq/L 3.6-5.5 HGB/HCT (H&H) - STAT [id number] 08:32:00 Test Item Value Reference Range Comments HEMOGLOBIN (BEAKER) (test fvud=576) 10.8 g/dL 13.0-16.8 HEMATOCRIT (BEAKER) (test gjkj=962) 32.0 % 40.0-50.0 POCT-GLUCOSE [id number] 06:20:00 Test Item Value Reference Range Comments POC-GLUCOSE METER (BEAKER) 107 mg/dL 70-[address] [facility] [address] (test odwq=8387) [facility] [address] BASIC METABOLIC [id number] 05:13:00 Test Item Value Reference Range Comments SODIUM (BEAKER) (test 134 meq/L 136-145 levi=995) POTASSIUM (BEAKER) (test 3.7 meq/L 3.5-5.1 zluq=654) CHLORIDE (BEAKER) (test 95 meq/L 98-107 ltca=416) CO2 (BEAKER) (test 30 meq/L 22-29 gkqt=919) BLOOD UREA NITROGEN 45 mg/dL 7-21 (BEAKER) (test mbxy=923) CREATININE (BEAKER) (test 0.90 mg/dL 0.57-1.25 lzok=648) GLUCOSE RANDOM (BEAKER) 97 mg/dL 70-105 (test zcle=540) CALCIUM (BEAKER) (test 8.5 mg/dL 8.4-10.2 adrj=732) EGFR (BEAKER) (test mL/min/1.73 sq m INSUFFICIENT CLINICAL DATA zeej=6929) TO CALCULATE ESTIMATED GFR. [id number] 05:12:00 Test Item Value Reference Range Comments FIBRINOGEN LEVEL (BEAKER) (test ustk=283) 116 mg/dl 225-434 HEPATIC FUNCTION [id number] 05:12:00 Test Item Value Reference Range Comments TOTAL PROTEIN (BEAKER) (test wtgm=773) 6.7 gm/dL 6.0-8.3 ALBUMIN (BEAKER) (test nbrp=7805) 3.6 g/dL 3.5-5.0 BILIRUBIN TOTAL (BEAKER) (test rohy=398) 1.5 mg/dL 0.2-1.2 BILIRUBIN DIRECT (BEAKER) (test fpre=898) 0.8 mg/dL 0.1-0.5 ALKALINE PHOSPHATASE (BEAKER) (test josd=877) 85 U/L 40-150 AST (SGOT) (BEAKER) (test lufe=786) 35 U/L 5-34 ALT (SGPT) (BEAKER) (test jorl=714) 28 U/L 6-55 [id number] 05:07:00 Test Item Value Reference Range Comments PARTIAL THROMBOPLASTIN TIME (BEAKER) (test 28.7 seconds 22.5-36.0 mjkg=791) PROTHROMBIN [id number] 05:06:00 Test Item Value Reference Range Comments PROTIME (BEAKER) (test kkyu=121) 19.1 seconds 11.7-14.7 INR (BEAKER) (test dnpl=498) 1.6 <=5.9 RECOMMENDED COUMADIN/WARFARIN INR THERAPY RANGESSTANDARD DOSE: 2.0 - 3.0 Includes: PROPHYLAXIS forvenous thrombosis, systemic embolization; TREATMENT for venous thrombosis and/or pulmonary embolus.HIGH RISK: Target INR is 2.5-3.5 for patients with mechanical heart valves.CBC W/PLT COUNT & AUTO [id number] 04:52:00 Test Item Value Reference Range Comments WHITE BLOOD CELL COUNT (BEAKER) (test gycv=395) 9.7 K/ L 4.0-10.0 RED BLOOD CELL COUNT (BEAKER) (test cnyr=494) 3.27 M/ L 4.20-5.80 HEMOGLOBIN (BEAKER) (test bjca=998) 10.4 GM/DL 13.0-16.8 HEMATOCRIT (BEAKER) (test wdbr=834) 31.5 % 40.0-50.0 MEAN CORPUSCULAR VOLUME (BEAKER) (test iyce=262) 96.3 fL 82.0-98.0 MEAN CORPUSCULAR HEMOGLOBIN (BEAKER) (test 31.7 pg 27.0-33.0 sdqr=255) MEAN CORPUSCULAR HEMOGLOBIN CONC (BEAKER) (test 32.9 GM/DL 32.0-36.0 jdld=779) RED CELL DISTRIBUTION WIDTH (BEAKER) (test 15.0 % 10.3-14.2 pcpj=704) PLATELET COUNT (BEAKER) (test thmw=048) 74 K/CU MM 150-430 MEAN PLATELET VOLUME (BEAKER) (test jctm=201) 8.9 fL 6.5-10.5 NUCLEATED RED BLOOD CELLS (BEAKER) (test 0 /100 WBC 0-0 rhen=427) NEUTROPHILS RELATIVE PERCENT (BEAKER) (test 87 % rsnj=325) LYMPHOCYTES RELATIVE PERCENT (BEAKER) (test 5 % etfe=947) MONOCYTES RELATIVE PERCENT (BEAKER) (test 8 % nwho=548) EOSINOPHILS RELATIVE PERCENT (BEAKER) (test 0 % dvuz=660) BASOPHILS RELATIVE PERCENT (BEAKER) (test 1 % ovnm=486) NEUTROPHILS ABSOLUTE COUNT (BEAKER) (test 8.37 K/ L 1.80-8.00 yyno=440) LYMPHOCYTES ABSOLUTE COUNT (BEAKER) (test 0.44 K/ L 1.48-4.50 ukhe=161) MONOCYTES ABSOLUTE COUNT (BEAKER) (test kqpk=322) 0.73 K/ L 0.00-1.30 EOSINOPHILS ABSOLUTE COUNT (BEAKER) (test 0.01 K/ L 0.00-0.50 jcfs=987) BASOPHILS ABSOLUTE COUNT (BEAKER) (test tvdo=095) 0.11 K/ L 0.00-0.20 0.00POCT-GLUCOSE [id number] 21:29:00 Test Item Value Reference Range Comments POC-GLUCOSE METER (BEAKER) 202 mg/dL 70-110 TESTED AT [address] (test quzf=6374) [place] [address] URINALYSIS W/ [id number] 19:29:00 Test Item Value Reference Range Comments COLOR (BEAKER) (test bzbm=657) Light Yellow CLARITY (BEAKER) (test jhol=895) Clear SPECIFIC GRAVITY UA (BEAKER) (test xoci=633) 1.006 1.001-1.035 PH UA (BEAKER) (test fyhj=634) 6.5 5.0-8.0 PROTEIN UA (BEAKER) (test ruwx=515) Negative Negative GLUCOSE UA (BEAKER) (test zgly=865) Negative Negative KETONES UA (BEAKER) (test nrgp=344) Negative Negative BILIRUBIN UA (BEAKER) (test enlj=385) Negative Negative BLOOD UA (BEAKER) (test urho=520) Negative Negative NITRITE UA (BEAKER) (test rmfs=456) Negative Negative LEUKOCYTE ESTERASE UA (BEAKER) (test amin=066) Negative Negative UROBILINOGEN UA (BEAKER) (test bkow=413) 0.2 mg/dL 0.2-1.0 RBC UA (BEAKER) (test biek=664) 0 /HPF WBC UA (BEAKER) (test unye=171) < /HPF SOURCE(BEAKER) (test fdkt=3191) Urine, Voided POCT-GLUCOSE [id number] 17:33:00 Test Item Value Reference Range Comments POC-GLUCOSE METER (BEAKER) 180 mg/dL 70-110 TESTED AT [address] (test tqqc=1697) [place] [id number] BASIC METABOLIC [id number] 15:09:00 Test Item Value Reference Range Comments SODIUM (BEAKER) (test 137 meq/L 136-145 lejw=343) POTASSIUM (BEAKER) (test 3.7 meq/L 3.5-5.1 Specimen slightly kmyk=133) hemolyzed CHLORIDE (BEAKER) (test 93 meq/L 98-107 gyec=403) CO2 (BEAKER) (test 34 meq/L 22-29 jrrf=993) BLOOD UREA NITROGEN 45 mg/dL 7-21 (BEAKER) (test yngm=409) CREATININE (BEAKER) (test 1.10 mg/dL 0.57-1.25 Specimen slightly syea=021) hemolyzed GLUCOSE RANDOM (BEAKER) 109 mg/dL 70-105 (test szxa=764) CALCIUM (BEAKER) (test 9.1 mg/dL 8.4-10.2 ysvv=328) EGFR (BEAKER) (test mL/min/1.73 sq m INSUFFICIENT CLINICAL DATA kqvc=2524) TO CALCULATE ESTIMATED GFR. [id number] 15:07:00 Test Item Value Reference Range Comments MAGNESIUM (BEAKER) (test 2.3 mg/dL 1.6-2.6 Specimen slightly hemolyzed jwaj=502) POCT-GLUCOSE [id number] 12:13:00 Test Item Value Reference Range Comments POC-GLUCOSE METER (BEAKER) 116 mg/dL 70-[address] [facility] [address] [place] [address] (test nwop=0576) [facility] [address] BASIC METABOLIC [id number] 05:50:00 Test Item Value Reference Range Comments SODIUM (BEAKER) (test 134 meq/L 136-145 cuud=749) POTASSIUM (BEAKER) (test 3.8 meq/L 3.5-5.1 eigk=202) CHLORIDE (BEAKER) (test 95 meq/L 98-107 czgg=382) CO2 (BEAKER) (test 29 meq/L 22-29 gdoi=074) BLOOD UREA NITROGEN 48 mg/dL 7-21 (BEAKER) (test pegu=403) CREATININE (BEAKER) (test 1.02 mg/dL 0.57-1.25 oboe=323) GLUCOSE RANDOM (BEAKER) 99 mg/dL 70-105 (test dhgr=525) CALCIUM (BEAKER) (test 8.4 mg/dL 8.4-10.2 cppg=677) EGFR (BEAKER) (test mL/min/1.73 sq m INSUFFICIENT CLINICAL DATA sbur=0451) TO CALCULATE ESTIMATED GFR. LACTATE DEHYDROGENASE (LDH)2016-09-22 05:49:00 Test Item Value Reference Range Comments LACTATE DEHYDROGENASE (BEAKER) (test jfpn=298) 220 U/L 125-220 HEPATIC FUNCTION [id number] 05:49:00 Test Item Value Reference Range Comments TOTAL PROTEIN (BEAKER) (test weql=440) 6.8 gm/dL 6.0-8.3 ALBUMIN (BEAKER) (test fiaq=8831) 3.7 g/dL 3.5-5.0 BILIRUBIN TOTAL (BEAKER) (test vzfm=362) 1.3 mg/dL 0.2-1.2 BILIRUBIN DIRECT (BEAKER) (test wbwm=491) 0.7 mg/dL 0.1-0.5 ALKALINE PHOSPHATASE (BEAKER) (test sldo=701) 83 U/L 40-150 AST (SGOT) (BEAKER) (test vini=497) 30 U/L 5-34 ALT (SGPT) (BEAKER) (test glwi=734) 25 U/L 6-55 [id number] 05:32:00 Test Item Value Reference Range Comments D-DIMER QUANTITATIVE (BEAKER) (test nqxu=382) 5.86 MG/L FEU <0.50 Intended Use: The D-Dimer Assay can be used to aid in the diagnosis of Deep Vein Thrombosis (DVT) and Pulmonary Embolism Disease (PED).In patients with low pre-test probability, various studies concerning STA Liatest D-dimer test have reported that with a cutoff value of 0.50 MG/L FEU, the Negative Predictive Value (NPV) regarding the exclusion of thrombosis is within 95-100% range.[id number] 05:27:00 Test Item Value Reference Range Comments FIBRINOGEN LEVEL (BEAKER) (test ppyr=318) 117 mg/dl 225-434 CBC W/PLT COUNT & AUTO [id number] 05:23:00 Test Item Value Reference Range Comments WHITE BLOOD CELL COUNT (BEAKER) (test mijn=567) 8.9 K/ L 4.0-10.0 RED BLOOD CELL COUNT (BEAKER) (test lvqc=715) 3.34 M/ L 4.20-5.80 HEMOGLOBIN (BEAKER) (test pscm=238) 10.7 GM/DL 13.0-16.8 HEMATOCRIT (BEAKER) (test wpup=472) 32.1 % 40.0-50.0 MEAN CORPUSCULAR VOLUME (BEAKER) (test zuon=116) 96.2 fL 82.0-98.0 MEAN CORPUSCULAR HEMOGLOBIN (BEAKER) (test 32.0 pg 27.0-33.0 ndvd=128) MEAN CORPUSCULAR HEMOGLOBIN CONC (BEAKER) (test 33.3 GM/DL 32.0-36.0 jfop=751) RED CELL DISTRIBUTION WIDTH (BEAKER) (test 15.1 % 10.3-14.2 srce=359) PLATELET COUNT (BEAKER) (test gbae=568) 85 K/CU MM 150-430 MEAN PLATELET VOLUME (BEAKER) (test lync=549) 8.4 fL 6.5-10.5 NUCLEATED RED BLOOD CELLS (BEAKER) (test 0 /100 WBC 0-0 lfgi=283) NEUTROPHILS RELATIVE PERCENT (BEAKER) (test 86 % bdqo=209) LYMPHOCYTES RELATIVE PERCENT (BEAKER) (test 5 % gjyi=081) MONOCYTES RELATIVE PERCENT (BEAKER) (test 8 % trfr=161) EOSINOPHILS RELATIVE PERCENT (BEAKER) (test 0 % ovxk=289) BASOPHILS RELATIVE PERCENT (BEAKER) (test 1 % zqar=540) NEUTROPHILS ABSOLUTE COUNT (BEAKER) (test 7.64 K/ L 1.80-8.00 ijlc=423) LYMPHOCYTES ABSOLUTE COUNT (BEAKER) (test 0.45 K/ L 1.48-4.50 zcmx=921) MONOCYTES ABSOLUTE COUNT (BEAKER) (test agsz=737) 0.70 K/ L 0.00-1.30 EOSINOPHILS ABSOLUTE COUNT (BEAKER) (test 0.01 K/ L 0.00-0.50 wgnh=087) BASOPHILS ABSOLUTE COUNT (BEAKER) (test egml=989) 0.05 K/ L 0.00-0.20 0.00PT/[id number] 05:22:00 Test Item Value Reference Range Comments PROTIME (BEAKER) (test mzjx=087) 18.9 seconds 11.7-14.7 INR (BEAKER) (test dxis=217) 1.6 <=5.9 PARTIAL THROMBOPLASTIN TIME (BEAKER) (test 29.2 seconds 22.5-36.0 camu=722) RECOMMENDED COUMADIN/WARFARIN INR THERAPY RANGESSTANDARD DOSE: 2.0 - 3.0 Includes: PROPHYLAXIS forvenous thrombosis, systemic embolization; TREATMENT for venous thrombosis and/or pulmonary embolus.HIGH RISK: Target INR is 2.5-3.5 for patients with mechanical heart valves.THROMBIN [id number] 05:22:00 Test Item Value Reference Range Comments THROMBIN TIME (BEAKER) (test lzcj=773) 18.6 secs 13.8-20.0 PROTHROMBIN [id number] 05:21:00 Test Item Value Reference Range Comments PROTIME (BEAKER) (test dftl=052) 18.9 seconds 11.7-14.7 INR (BEAKER) (test wfwq=125) 1.6 <=5.9 RECOMMENDED COUMADIN/WARFARIN INR THERAPY RANGESSTANDARD DOSE: 2.0 - 3.0 Includes: PROPHYLAXIS forvenous thrombosis, systemic embolization; TREATMENT for venous thrombosis and/or pulmonary embolus.HIGH RISK: Target INR is 2.5-3.5 for patients with mechanical heart valves.POCT-GLUCOSE [id number] 05:20:00 Test Item Value Reference Range Comments POC-GLUCOSE METER (BEAKER) 97 mg/dL 70-110 TESTED AT [address] (test hezw=2512) [place] [address] POCT-GLUCOSE [id number] 21:11:00 Test Item Value Reference Range Comments POC-GLUCOSE METER (BEAKER) 180 mg/dL 70-110 TESTED AT [address] (test yhpq=0045) [place] [address] POCT-GLUCOSE [id number] 17:58:00 Test Item Value Reference Range Comments POC-GLUCOSE METER (BEAKER) 121 mg/dL 70-110 TESTED AT [address] (test epjk=4148) [place] [address] POCT-GLUCOSE [id number] 13:45:00 Test Item Value Reference Range Comments POC-GLUCOSE METER (BEAKER) 111 mg/dL 70-110 TESTED AT [address] (test htrz=0474) [place] [address] BASIC METABOLIC [id number] 05:37:00 Test Item Value Reference Range Comments SODIUM (BEAKER) (test 137 meq/L 136-145 lkzr=609) POTASSIUM (BEAKER) (test 3.7 meq/L 3.5-5.1 falf=919) CHLORIDE (BEAKER) (test 97 meq/L 98-107 yddy=181) CO2 (BEAKER) (test 31 meq/L 22-29 jgom=546) BLOOD UREA NITROGEN 49 mg/dL 7-21 (BEAKER) (test hnbt=182) CREATININE (BEAKER) (test 0.92 mg/dL 0.57-1.25 jfrb=159) GLUCOSE RANDOM (BEAKER) 105 mg/dL 70-105 (test elbo=886) CALCIUM (BEAKER) (test 8.4 mg/dL 8.4-10.2 icec=257) EGFR (BEAKER) (test mL/min/1.73 sq m INSUFFICIENT CLINICAL DATA ujgm=2754) TO CALCULATE ESTIMATED GFR. BUN AND [id number] 05:37:00 Test Item Value Reference Range Comments BLOOD UREA NITROGEN 49 mg/dL 7-21 (BEAKER) (test wosl=170) CREATININE (BEAKER) (test 0.92 mg/dL 0.57-1.25 kpom=601) EGFR (BEAKER) (test mL/min/1.73 sq m INSUFFICIENT CLINICAL DATA dftm=1429) TO CALCULATE ESTIMATED GFR. [id number] 05:28:00 Test Item Value Reference Range Comments MAGNESIUM (BEAKER) (test tmfc=774) 2.2 mg/dL 1.6-2.6 HEPATIC FUNCTION [id number] 05:28:00 Test Item Value Reference Range Comments TOTAL PROTEIN (BEAKER) (test ybjh=891) 6.6 gm/dL 6.0-8.3 ALBUMIN (BEAKER) (test qzpy=5581) 3.5 g/dL 3.5-5.0 BILIRUBIN TOTAL (BEAKER) (test ywsk=737) 1.3 mg/dL 0.2-1.2 BILIRUBIN DIRECT (BEAKER) (test jfrf=693) 0.7 mg/dL 0.1-0.5 ALKALINE PHOSPHATASE (BEAKER) (test bzjk=004) 82 U/L 40-150 AST (SGOT) (BEAKER) (test dhuh=234) 30 U/L 5-34 ALT (SGPT) (BEAKER) (test girh=439) 22 U/L 6-55 CBC W/PLT COUNT & AUTO [id number] 05:19:00 Test Item Value Reference Range Comments WHITE BLOOD CELL COUNT (BEAKER) (test ttir=842) 7.8 K/ L 4.0-10.0 RED BLOOD CELL COUNT (BEAKER) (test negq=647) 3.35 M/ L 4.20-5.80 HEMOGLOBIN (BEAKER) (test camr=026) 10.5 GM/DL 13.0-16.8 HEMATOCRIT (BEAKER) (test ldbp=740) 32.3 % 40.0-50.0 MEAN CORPUSCULAR VOLUME (BEAKER) (test qliz=695) 96.6 fL 82.0-98.0 MEAN CORPUSCULAR HEMOGLOBIN (BEAKER) (test 31.4 pg 27.0-33.0 wuvj=088) MEAN CORPUSCULAR HEMOGLOBIN CONC (BEAKER) (test 32.6 GM/DL 32.0-36.0 qwxm=126) RED CELL DISTRIBUTION WIDTH (BEAKER) (test 14.2 % 10.3-14.2 zwuc=107) PLATELET COUNT (BEAKER) (test luqs=021) 70 K/CU MM 150-430 MEAN PLATELET VOLUME (BEAKER) (test ceey=562) 9.0 fL 6.5-10.5 NUCLEATED RED BLOOD CELLS (BEAKER) (test 0 /100 WBC 0-0 cgxk=063) NEUTROPHILS RELATIVE PERCENT (BEAKER) (test 85 % pves=843) LYMPHOCYTES RELATIVE PERCENT (BEAKER) (test 6 % ivdu=828) MONOCYTES RELATIVE PERCENT (BEAKER) (test 9 % jwxx=973) EOSINOPHILS RELATIVE PERCENT (BEAKER) (test 0 % lumb=952) BASOPHILS RELATIVE PERCENT (BEAKER) (test 0 % nlee=469) NEUTROPHILS ABSOLUTE COUNT (BEAKER) (test 6.62 K/ L 1.80-8.00 vobc=538) LYMPHOCYTES ABSOLUTE COUNT (BEAKER) (test 0.46 K/ L 1.48-4.50 vrgk=677) MONOCYTES ABSOLUTE COUNT (BEAKER) (test dzbu=436) 0.68 K/ L 0.00-1.30 EOSINOPHILS ABSOLUTE COUNT (BEAKER) (test 0.01 K/ L 0.00-0.50 eeli=437) BASOPHILS ABSOLUTE COUNT (BEAKER) (test rvym=112) 0.03 K/ L 0.00-0.20 [id number] 05:11:00 Test Item Value Reference Range Comments FIBRINOGEN LEVEL (BEAKER) (test bmjk=288) 111 mg/dl 225-434 PROTHROMBIN [id number] 05:05:00 Test Item Value Reference Range Comments PROTIME (BEAKER) (test iabu=890) 18.7 seconds 11.7-14.7 INR (BEAKER) (test nvcx=884) 1.6 <=5.9 RECOMMENDED COUMADIN/WARFARIN INR THERAPY RANGESSTANDARD DOSE: 2.0 - 3.0 Includes: PROPHYLAXIS forvenous thrombosis, systemic embolization; TREATMENT for venous thrombosis and/or pulmonary embolus.HIGH RISK: Target INR is 2.5-3.5 for patients with mechanical heart valves.POCT-GLUCOSE [id number] 23:17:00 Test Item Value Reference Range Comments POC-GLUCOSE METER (BEAKER) 154 mg/dL 70-110 TESTED AT [address] (test plff=3695) [place] [address] POCT-GLUCOSE [id number] 18:07:00 Test Item Value Reference Range Comments POC-GLUCOSE METER (BEAKER) 172 mg/dL 70-110 TESTED AT [address] (test bahn=3355) [place] [id number] POCT-GLUCOSE [id number] 13:53:00 Test Item Value Reference Range Comments POC-GLUCOSE METER (BEAKER) 106 mg/dL 70-110 TESTED AT [address] (test vzio=3237) [place] [id number] POCT-GLUCOSE [id number] 10:31:00 Test Item Value Reference Range Comments POC-GLUCOSE METER (BEAKER) 129 mg/dL 70-110 TESTED AT [address] (test krzh=0009) [place] [id number] CBC W/PLT COUNT & AUTO [id number] 07:13:00 Test Item Value Reference Range Comments WHITE BLOOD CELL COUNT (BEAKER) (test xivr=879) 7.3 K/ L 4.0-10.0 RED BLOOD CELL COUNT (BEAKER) (test iuch=690) 3.32 M/ L 4.20-5.80 HEMOGLOBIN (BEAKER) (test qgmh=175) 10.8 GM/DL 13.0-16.8 HEMATOCRIT (BEAKER) (test zkbl=436) 32.3 % 40.0-50.0 MEAN CORPUSCULAR VOLUME (BEAKER) (test nerq=071) 97.4 fL 82.0-98.0 MEAN CORPUSCULAR HEMOGLOBIN (BEAKER) (test 32.5 pg 27.0-33.0 itgd=825) MEAN CORPUSCULAR HEMOGLOBIN CONC (BEAKER) (test 33.4 GM/DL 32.0-36.0 lxaz=389) RED CELL DISTRIBUTION WIDTH (BEAKER) (test 14.7 % 10.3-14.2 dvxk=892) PLATELET COUNT (BEAKER) (test lhrh=968) 72 K/CU MM 150-430 MEAN PLATELET VOLUME (BEAKER) (test zzur=045) 9.2 fL 6.5-10.5 NUCLEATED RED BLOOD CELLS (BEAKER) (test 0 /100 WBC 0-0 xhtt=174) NEUTROPHILS RELATIVE PERCENT (BEAKER) (test 81 % xgly=768) LYMPHOCYTES RELATIVE PERCENT (BEAKER) (test 8 % gkxm=996) MONOCYTES RELATIVE PERCENT (BEAKER) (test 11 % bfgu=732) EOSINOPHILS RELATIVE PERCENT (BEAKER) (test 0 % zron=059) BASOPHILS RELATIVE PERCENT (BEAKER) (test 0 % bxsn=784) NEUTROPHILS ABSOLUTE COUNT (BEAKER) (test 5.91 K/ L 1.80-8.00 khnz=691) LYMPHOCYTES ABSOLUTE COUNT (BEAKER) (test 0.60 K/ L 1.48-4.50 pvcz=473) MONOCYTES ABSOLUTE COUNT (BEAKER) (test hsfe=754) 0.77 K/ L 0.00-1.30 EOSINOPHILS ABSOLUTE COUNT (BEAKER) (test 0.03 K/ L 0.00-0.50 iont=655) BASOPHILS ABSOLUTE COUNT (BEAKER) (test ytwr=587) 0.02 K/ L 0.00-0.20 0.00BASI METABOLIC [id number] 07:10:00 Test Item Value Reference Range Comments SODIUM (BEAKER) (test 136 meq/L 136-145 pete=851) POTASSIUM (BEAKER) (test 3.7 meq/L 3.5-5.1 ilft=713) CHLORIDE (BEAKER) (test 96 meq/L 98-107 jubq=365) CO2 (BEAKER) (test 30 meq/L 22-29 viaj=173) BLOOD UREA NITROGEN 52 mg/dL 7-21 (BEAKER) (test ieks=727) CREATININE (BEAKER) (test 0.91 mg/dL 0.57-1.25 qfzr=063) GLUCOSE RANDOM (BEAKER) 94 mg/dL 70-105 (test skis=308) CALCIUM (BEAKER) (test 8.6 mg/dL 8.4-10.2 ovsd=213) EGFR (BEAKER) (test mL/min/1.73 sq m INSUFFICIENT CLINICAL DATA uwyq=1016) TO CALCULATE ESTIMATED GFR. HEPATIC FUNCTION [id number] 07:09:00 Test Item Value Reference Range Comments TOTAL PROTEIN (BEAKER) (test dhpe=737) 6.8 gm/dL 6.0-8.3 ALBUMIN (BEAKER) (test kzdt=4941) 3.5 g/dL 3.5-5.0 BILIRUBIN TOTAL (BEAKER) (test dfqn=345) 1.3 mg/dL 0.2-1.2 BILIRUBIN DIRECT (BEAKER) (test xnqt=256) 0.7 mg/dL 0.1-0.5 ALKALINE PHOSPHATASE (BEAKER) (test suzw=645) 84 U/L 40-150 AST (SGOT) (BEAKER) (test lowt=708) 31 U/L 5-34 ALT (SGPT) (BEAKER) (test qmhg=700) 23 U/L 6-55 [id number] 06:49:00 Test Item Value Reference Range Comments FIBRINOGEN LEVEL (BEAKER) (test xnzd=171) 108 mg/dl 225-434 PROTHROMBIN [id number] 06:43:00 Test Item Value Reference Range Comments PROTIME (BEAKER) (test mtom=425) 18.5 seconds 11.7-14.7 INR (BEAKER) (test kbbi=471) 1.5 <=5.9 RECOMMENDED COUMADIN/WARFARIN INR THERAPY RANGESSTANDARD DOSE: 2.0 - 3.0 Includes: PROPHYLAXIS forvenous thrombosis, systemic embolization; TREATMENT for venous thrombosis and/or pulmonary embolus.HIGH RISK: Target INR is 2.5-3.5 for patients with mechanical heart valves.POCT-GLUCOSE [id number] 22:20:00 Test Item Value Reference Range Comments POC-GLUCOSE METER (BEAKER) 188 mg/dL 70-[address] [facility] [address] (test sqxp=9957) [facility] [address] POCT-GLUCOSE [id number] 17:20:00 Test Item Value Reference Range Comments POC-GLUCOSE METER (BEAKER) 182 mg/dL 70-110 TESTED AT [place] [id number] [facility] (test wehj=9587) [facility] [address] CBC W/PLT COUNT & AUTO [id number] 14:51:00 Test Item Value Reference Range Comments WHITE BLOOD CELL COUNT (BEAKER) (test xjpz=958) 7.6 K/ L 4.0-10.0 RED BLOOD CELL COUNT (BEAKER) (test ebvq=273) 3.30 M/ L 4.20-5.80 HEMOGLOBIN (BEAKER) (test pbrg=847) 10.4 GM/DL 13.0-16.8 HEMATOCRIT (BEAKER) (test tufg=970) 31.9 % 40.0-50.0 MEAN CORPUSCULAR VOLUME (BEAKER) (test jtif=208) 96.9 fL 82.0-98.0 MEAN CORPUSCULAR HEMOGLOBIN (BEAKER) (test 31.5 pg 27.0-33.0 hwxk=015) MEAN CORPUSCULAR HEMOGLOBIN CONC (BEAKER) (test 32.5 GM/DL 32.0-36.0 kphk=963) RED CELL DISTRIBUTION WIDTH (BEAKER) (test 13.9 % 10.3-14.2 zbax=614) PLATELET COUNT (BEAKER) (test oxve=663) 56 K/CU MM 150-430 MEAN PLATELET VOLUME (BEAKER) (test lipj=536) 9.4 fL 6.5-10.5 NUCLEATED RED BLOOD CELLS (BEAKER) (test 0 /100 WBC 0-0 todk=011) NEUTROPHILS RELATIVE PERCENT (BEAKER) (test 83 % orda=002) LYMPHOCYTES RELATIVE PERCENT (BEAKER) (test 7 % dyyq=774) MONOCYTES RELATIVE PERCENT (BEAKER) (test 10 % qpxn=912) EOSINOPHILS RELATIVE PERCENT (BEAKER) (test 0 % lush=354) BASOPHILS RELATIVE PERCENT (BEAKER) (test 0 % bunl=227) NEUTROPHILS ABSOLUTE COUNT (BEAKER) (test 6.31 K/ L 1.80-8.00 cisz=827) LYMPHOCYTES ABSOLUTE COUNT (BEAKER) (test 0.50 K/ L 1.48-4.50 jsyu=187) MONOCYTES ABSOLUTE COUNT (BEAKER) (test dhln=899) 0.77 K/ L 0.00-1.30 EOSINOPHILS ABSOLUTE COUNT (BEAKER) (test 0.01 K/ L 0.00-0.50 jnkk=100) BASOPHILS ABSOLUTE COUNT (BEAKER) (test oddi=929) 0.00 K/ L 0.00-0.20 0.00(MANUAL DIFFERENTIAL)[id number] 14:51:00 Test Item Value Reference Range Comments TOTAL COUNTED (BEAKER) (test xndk=7476) WBC MORPHOLOGY (BEAKER) (test qppx=485) Normal PLT MORPHOLOGY (BEAKER) (test yujz=058) Normal RBC MORPHOLOGY (BEAKER) (test kgks=267) Normal POCT-GLUCOSE [id number] 12:28:00 Test Item Value Reference Range Comments POC-GLUCOSE METER (BEAKER) 132 mg/dL 70-110 TESTED AT [address] (test ijqm=8892) [place] [id number] POCT-GLUCOSE [id number] 08:32:00 Test Item Value Reference Range Comments POC-GLUCOSE METER (BEAKER) 91 mg/dL 70-110 TESTED AT [address] (test kixr=0154) [place] [address] [id number] 07:04:00 Test Item Value Reference Range Comments FIBRINOGEN LEVEL (BEAKER) (test gvdv=696) 113 mg/dl 225-434 BASIC METABOLIC [id number] 05:26:00 Test Item Value Reference Range Comments SODIUM (BEAKER) (test 137 meq/L 136-145 qyit=553) POTASSIUM (BEAKER) (test 3.4 meq/L 3.5-5.1 nzdc=863) CHLORIDE (BEAKER) (test 96 meq/L 98-107 vwta=340) CO2 (BEAKER) (test 31 meq/L 22-29 vptf=112) BLOOD UREA NITROGEN 54 mg/dL 7-21 (BEAKER) (test mdvh=295) CREATININE (BEAKER) (test 0.98 mg/dL 0.57-1.25 cgtl=981) GLUCOSE RANDOM (BEAKER) 105 mg/dL 70-105 (test vohc=355) CALCIUM (BEAKER) (test 8.6 mg/dL 8.4-10.2 olkz=850) EGFR (BEAKER) (test mL/min/1.73 sq m INSUFFICIENT CLINICAL DATA sear=6137) TO CALCULATE ESTIMATED GFR. PROTHROMBIN [id number] 05:23:00 Test Item Value Reference Range Comments PROTIME (BEAKER) (test hiti=565) 19.5 seconds 11.7-14.7 INR (BEAKER) (test ipog=267) 1.7 <=5.9 RECOMMENDED COUMADIN/WARFARIN INR THERAPY RANGESSTANDARD DOSE: 2.0 - 3.0 Includes: PROPHYLAXIS forvenous thrombosis, systemic embolization; TREATMENT for venous thrombosis and/or pulmonary embolus.HIGH RISK: Target INR is 2.5-3.5 for patients with mechanical heart valves.HEPATIC FUNCTION [id number] 05:22 :00 Test Item Value Reference Range Comments TOTAL PROTEIN (BEAKER) (test kbmr=149) 6.8 gm/dL 6.0-8.3 ALBUMIN (BEAKER) (test jirq=7798) 3.6 g/dL 3.5-5.0 BILIRUBIN TOTAL (BEAKER) (test kqdu=810) 1.1 mg/dL 0.2-1.2 BILIRUBIN DIRECT (BEAKER) (test kjfg=110) 0.7 mg/dL 0.1-0.5 ALKALINE PHOSPHATASE (BEAKER) (test ssxz=446) 87 U/L 40-150 AST (SGOT) (BEAKER) (test kxvl=428) 29 U/L 5-34 ALT (SGPT) (BEAKER) (test ctft=503) 21 U/L 6-55 POCT-GLUCOSE [id number] 22:46:00 Test Item Value Reference Range Comments POC-GLUCOSE METER (BEAKER) 130 mg/dL 70-110 TESTED AT [address] (test zulc=2527) [facility] [address] POCT-GLUCOSE [id number] 16:56:00 Test Item Value Reference Range Comments POC-GLUCOSE METER (BEAKER) 164 mg/dL 70-110 TESTED AT [address] (test krob=1285) [facility] [address] RESPIRATORY PANEL [id number] 15:39:00 Test Item Value Reference Range Comments HUMAN METAPNEUMOVIRUS (BEAKER) (test Not detected Not detected, Inconclusive jfut=7223) RHINOVIRUS (BEAKER) (test zazp=0184) Not detected Not detected, Inconclusive INFLUENZA A (BEAKER) (test Not detected Not detected, Inconclusive zxfj=6796) INFLUENZA A SUBTYPE H1 (BEAKER) Not detected Not detected, Inconclusive (test ucnq=0912) INFLUENZA A SUBTYPE H3 (BEAKER) Not detected Not detected, Inconclusive (test tvuz=4474) INFLUENZA A SUBTYPE H1-2009 (BEAKER) Not detected Not detected, Inconclusive (test rnjy=2553) INFLUENZA B (BEAKER) (test Not detected Not detected, Inconclusive doto=9910) RESPIRATORY SYNCYTIAL VIRUS (BEAKER) Not detected Not detected, Inconclusive (test pohn=4728) PARAINFLUENZA VIRUS 1 (BEAKER) (test Not detected Not detected, Inconclusive fsah=3346) PARAINFLUENZA VIRUS 2 (BEAKER) (test Not detected Not detected, Inconclusive lrgr=6690) PARAINFLUENZA VIRUS 3 (BEAKER) (test Not detected Not detected, Inconclusive lngz=6575) PARAINFLUENZA VIRUS 4 (BEAKER) (test Not detected Not detected, Inconclusive sxjw=9498) ADENOVIRUS (BEAKER) (test ngsx=8807) Not detected Not detected, Inconclusive CORONAVIRUS 229E (BEAKER) (test Not detected Not detected, Inconclusive jpid=8042) CORONAVIRUS HKU1 (BEAKER) (test Not detected Not detected, Inconclusive jyfp=4358) CORONAVIRUS NL63 (BEAKER) (test Not detected Not detected, Inconclusive sriw=6228) CORONAVIRUS OC43 (BEAKER) (test Not detected Not detected, Inconclusive vcin=3450) BORDETELLA PERTUSSIS (BEAKER) (test Not detected Not detected, Inconclusive teat=7826) CHLAMYDOPHILA PNEUMONIAE (BEAKER) Not detected Not detected, Inconclusive (test rfre=0578) MYCOPLASMA PNEUMONIAE (BEAKER) (test Not detected Not detected, Inconclusive nfjf=2203) POCT-GLUCOSE [id number] 12:22:00 Test Item Value Reference Range Comments POC-GLUCOSE METER (BEAKER) 113 mg/dL 70-[address] [facility] [address] (test bowk=8400) [facility] [address] POCT-GLUCOSE [id number] 08:24:00 Test Item Value Reference Range Comments POC-GLUCOSE METER (BEAKER) 96 mg/dL 70-[address] [facility] [address] (test wxmi=0740) [facility] [address] BASIC METABOLIC [id number] 07:27:00 Test Item Value Reference Range Comments SODIUM (BEAKER) (test 140 meq/L 136-145 gpxn=491) POTASSIUM (BEAKER) (test 3.4 meq/L 3.5-5.1 gbcx=371) CHLORIDE (BEAKER) (test 95 meq/L 98-107 hghi=257) CO2 (BEAKER) (test 34 meq/L 22-29 wjut=695) BLOOD UREA NITROGEN 54 mg/dL 7-21 (BEAKER) (test czxv=490) CREATININE (BEAKER) (test 1.23 mg/dL 0.57-1.25 gudn=520) GLUCOSE RANDOM (BEAKER) 98 mg/dL 70-105 (test sfai=562) CALCIUM (BEAKER) (test 9.3 mg/dL 8.4-10.2 bkaw=367) EGFR (BEAKER) (test mL/min/1.73 sq m INSUFFICIENT CLINICAL DATA pxvj=3970) TO CALCULATE ESTIMATED GFR. BASIC METABOLIC [id number] 07:21:00 Test Item Value Reference Range Comments SODIUM (BEAKER) (test 139 meq/L 136-145 idar=665) POTASSIUM (BEAKER) (test 3.4 meq/L 3.5-5.1 Specimen slightly yhpp=385) hemolyzed CHLORIDE (BEAKER) (test 95 meq/L 98-107 mpiq=982) CO2 (BEAKER) (test 35 meq/L 22-29 ivwt=591) BLOOD UREA NITROGEN 55 mg/dL 7-21 (BEAKER) (test aklu=065) CREATININE (BEAKER) (test 1.17 mg/dL 0.57-1.25 Specimen slightly thpu=830) hemolyzed GLUCOSE RANDOM (BEAKER) 97 mg/dL 70-105 (test gsmw=784) CALCIUM (BEAKER) (test 9.2 mg/dL 8.4-10.2 rxpa=167) EGFR (BEAKER) (test mL/min/1.73 sq m INSUFFICIENT CLINICAL DATA bnes=3677) TO CALCULATE ESTIMATED GFR. HEPATIC FUNCTION [id number] 07:15:00 Test Item Value Reference Range Comments TOTAL PROTEIN (BEAKER) (test 8.0 gm/dL 6.0-8.3 Specimen slightly hemolyzed kuie=487) ALBUMIN (BEAKER) (test 4.2 g/dL 3.5-5.0 Specimen slightly hemolyzed comh=8525) BILIRUBIN TOTAL (BEAKER) (test 1.3 mg/dL 0.2-1.2 Specimen slightly hemolyzed kzqf=941) BILIRUBIN DIRECT (BEAKER) (test 0.7 mg/dL 0.1-0.5 Specimen slightly hemolyzed lkug=399) ALKALINE PHOSPHATASE (BEAKER) 99 U/L 40-150 (test hsca=047) AST (SGOT) (BEAKER) (test 35 U/L 5-34 Specimen slightly hemolyzed iwfz=528) ALT (SGPT) (BEAKER) (test 24 U/L 6-55 Specimen slightly hemolyzed oyda=472) [id number] 07:08:00 Test Item Value Reference Range Comments FIBRINOGEN LEVEL (BEAKER) (test miuf=594) 124 mg/dl 225-434 CBC W/PLT COUNT & AUTO [id number] 07:06:00 Test Item Value Reference Range Comments WHITE BLOOD CELL COUNT (BEAKER) (test boxo=539) 8.4 K/ L 4.0-10.0 RED BLOOD CELL COUNT (BEAKER) (test cmbv=877) 3.60 M/ L 4.20-5.80 HEMOGLOBIN (BEAKER) (test zbim=120) 11.5 GM/DL 13.0-16.8 HEMATOCRIT (BEAKER) (test jccj=010) 35.8 % 40.0-50.0 MEAN CORPUSCULAR VOLUME (BEAKER) (test dtmb=130) 99.4 fL 82.0-98.0 MEAN CORPUSCULAR HEMOGLOBIN (BEAKER) (test 32.0 pg 27.0-33.0 nphc=069) MEAN CORPUSCULAR HEMOGLOBIN CONC (BEAKER) (test 32.2 GM/DL 32.0-36.0 wfah=872) RED CELL DISTRIBUTION WIDTH (BEAKER) (test 14.5 % 10.3-14.2 nqnd=176) PLATELET COUNT (BEAKER) (test eoww=320) 57 K/CU MM 150-430 MEAN PLATELET VOLUME (BEAKER) (test ejrz=814) 10.0 fL 6.5-10.5 NUCLEATED RED BLOOD CELLS (BEAKER) (test 0 /100 WBC 0-0 bqed=431) NEUTROPHILS RELATIVE PERCENT (BEAKER) (test 87 % brra=297) LYMPHOCYTES RELATIVE PERCENT (BEAKER) (test 4 % glwa=826) MONOCYTES RELATIVE PERCENT (BEAKER) (test 9 % drcf=742) EOSINOPHILS RELATIVE PERCENT (BEAKER) (test 0 % lhnl=902) BASOPHILS RELATIVE PERCENT (BEAKER) (test 0 % ytmi=033) NEUTROPHILS ABSOLUTE COUNT (BEAKER) (test 7.25 K/ L 1.80-8.00 fxyx=222) LYMPHOCYTES ABSOLUTE COUNT (BEAKER) (test 0.34 K/ L 1.48-4.50 uovs=358) MONOCYTES ABSOLUTE COUNT (BEAKER) (test eosr=049) 0.77 K/ L 0.00-1.30 EOSINOPHILS ABSOLUTE COUNT (BEAKER) (test 0.01 K/ L 0.00-0.50 mgah=647) BASOPHILS ABSOLUTE COUNT (BEAKER) (test jysl=031) 0.00 K/ L 0.00-0.20 PROTHROMBIN [id number] 07:03:00 Test Item Value Reference Range Comments PROTIME (BEAKER) (test iefj=074) 18.6 seconds 11.7-14.7 INR (BEAKER) (test eboq=659) 1.6 <=5.9 RECOMMENDED COUMADIN/WARFARIN INR THERAPY RANGESSTANDARD DOSE: 2.0 - 3.0 Includes: PROPHYLAXIS forvenous thrombosis, systemic embolization; TREATMENT for venous thrombosis and/or pulmonary embolus.HIGH RISK: Target INR is 2.5-3.5 for patients with mechanical heart valves.POCT-GLUCOSE [id number] 21:23:00 Test Item Value Reference Range Comments POC-GLUCOSE METER (BEAKER) 197 mg/dL 70-110 TESTED AT [address] (test yyun=4279) [facility] [address] POCT-GLUCOSE [id number] 18:30:00 Test Item Value Reference Range Comments POC-GLUCOSE METER (BEAKER) 147 mg/dL 70-110 TESTED AT [address] (test qayj=9838) [facility] [address] POCT-GLUCOSE [id number] 13:46:00 Test Item Value Reference Range Comments POC-GLUCOSE METER (BEAKER) 113 mg/dL 70-[address] [facility] [address] (test tuyx=7719) [facility] [address] POCT-GLUCOSE [id number] 07:49:00 Test Item Value Reference Range Comments POC-GLUCOSE METER (BEAKER) 134 mg/dL 70-[address] [facility] [address] (test kkzo=4553) [facility] [address] PERIPHERAL BLOOD SMEAR - HOLD [id number] 06:35:00 Test Item Value Reference Range Comments PERIPHERAL SMEAR SAVE (BEAKER) (test mcjh=1777) saved BASIC METABOLIC [id number] 05:44:00 Test Item Value Reference Range Comments SODIUM (BEAKER) (test 141 meq/L 136-145 muww=963) POTASSIUM (BEAKER) (test 3.6 meq/L 3.5-5.1 aodv=395) CHLORIDE (BEAKER) (test 99 meq/L 98-107 claz=760) CO2 (BEAKER) (test 31 meq/L 22-29 yaxn=898) BLOOD UREA NITROGEN 59 mg/dL 7-21 (BEAKER) (test mcsj=671) CREATININE (BEAKER) (test 1.09 mg/dL 0.57-1.25 wuvh=202) GLUCOSE RANDOM (BEAKER) 133 mg/dL 70-105 (test kjrf=022) CALCIUM (BEAKER) (test 8.6 mg/dL 8.4-10.2 mvpm=919) EGFR (BEAKER) (test mL/min/1.73 sq m INSUFFICIENT CLINICAL DATA zvko=5858) TO CALCULATE ESTIMATED GFR. CBC W/PLT COUNT & AUTO [id number] 05:41:00 Test Item Value Reference Range Comments WHITE BLOOD CELL COUNT (BEAKER) (test hnsw=285) 5.8 K/ L 4.0-10.0 RED BLOOD CELL COUNT (BEAKER) (test qpdz=230) 3.13 M/ L 4.20-5.80 HEMOGLOBIN (BEAKER) (test aqay=351) 9.8 GM/DL 13.0-16.8 HEMATOCRIT (BEAKER) (test yixq=520) 30.7 % 40.0-50.0 MEAN CORPUSCULAR VOLUME (BEAKER) (test gshe=887) 98.4 fL 82.0-98.0 MEAN CORPUSCULAR HEMOGLOBIN (BEAKER) (test 31.3 pg 27.0-33.0 lgxm=797) MEAN CORPUSCULAR HEMOGLOBIN CONC (BEAKER) (test 31.9 GM/DL 32.0-36.0 ykbs=923) RED CELL DISTRIBUTION WIDTH (BEAKER) (test 13.7 % 10.3-14.2 zcpe=568) PLATELET COUNT (BEAKER) (test xkzd=848) 52 K/CU MM 150-430 MEAN PLATELET VOLUME (BEAKER) (test jbrm=872) 9.1 fL 6.5-10.5 NUCLEATED RED BLOOD CELLS (BEAKER) (test 0 /100 WBC 0-0 hqbs=093) NEUTROPHILS RELATIVE PERCENT (BEAKER) (test 92 % oytm=952) LYMPHOCYTES RELATIVE PERCENT (BEAKER) (test 3 % uzxz=699) MONOCYTES RELATIVE PERCENT (BEAKER) (test 4 % mqia=167) EOSINOPHILS RELATIVE PERCENT (BEAKER) (test 0 % cfvd=099) BASOPHILS RELATIVE PERCENT (BEAKER) (test 0 % vaqu=031) NEUTROPHILS ABSOLUTE COUNT (BEAKER) (test 5.33 K/ L 1.80-8.00 ozvb=260) LYMPHOCYTES ABSOLUTE COUNT (BEAKER) (test 0.19 K/ L 1.48-4.50 xoir=778) MONOCYTES ABSOLUTE COUNT (BEAKER) (test anji=013) 0.24 K/ L 0.00-1.30 EOSINOPHILS ABSOLUTE COUNT (BEAKER) (test 0.01 K/ L 0.00-0.50 wxxe=353) BASOPHILS ABSOLUTE COUNT (BEAKER) (test mmyl=933) 0.03 K/ L 0.00-0.20 [id number] 05:37:00 Test Item Value Reference Range Comments FIBRINOGEN LEVEL (BEAKER) (test ypia=839) 117 mg/dl 225-434 HEPATIC FUNCTION [id number] 05:34:00 Test Item Value Reference Range Comments TOTAL PROTEIN (BEAKER) (test iaum=217) 6.9 gm/dL 6.0-8.3 ALBUMIN (BEAKER) (test hemy=8709) 3.6 g/dL 3.5-5.0 BILIRUBIN TOTAL (BEAKER) (test slhk=601) 0.9 mg/dL 0.2-1.2 BILIRUBIN DIRECT (BEAKER) (test lnvm=149) 0.6 mg/dL 0.1-0.5 ALKALINE PHOSPHATASE (BEAKER) (test bvsb=810) 86 U/L 40-150 AST (SGOT) (BEAKER) (test rguo=643) 30 U/L 5-34 ALT (SGPT) (BEAKER) (test mjqp=181) 20 U/L 6-55 PROTHROMBIN [id number] 05:32:00 Test Item Value Reference Range Comments PROTIME (BEAKER) (test dcdf=793) 19.3 seconds 11.7-14.7 INR (BEAKER) (test gqqb=781) 1.6 <=5.9 RECOMMENDED COUMADIN/WARFARIN INR THERAPY RANGESSTANDARD DOSE: 2.0 - 3.0 Includes: PROPHYLAXIS forvenous thrombosis, systemic embolization; TREATMENT for venous thrombosis and/or pulmonary embolus.HIGH RISK: Target INR is 2.5-3.5 for patients with mechanical heart valves.POCT-GLUCOSE [id number] 23:16:00 Test Item Value Reference Range Comments POC-GLUCOSE METER (BEAKER) 221 mg/dL 70-110 TESTED AT [address] (test advs=8655) [place] [id number] POCT-GLUCOSE [id number] 16:13:00 Test Item Value Reference Range Comments POC-GLUCOSE METER (BEAKER) 117 mg/dL 70-110 TESTED AT [address] (test fklo=8535) [place] [id number] POCT-GLUCOSE [id number] 12:52:00 Test Item Value Reference Range Comments POC-GLUCOSE METER ([facility]) 91 mg/dL 70-110 TESTED AT [address] (test rdae=3112) [place] [id number] CBC W/PLT COUNT & AUTO [id number] 06:44:00 Test Item Value Reference Range Comments WHITE BLOOD CELL COUNT (BEAKER) (test djxd=111) 6.9 K/ L 4.0-10.0 RED BLOOD CELL COUNT (BEAKER) (test kudx=889) 3.13 M/ L 4.20-5.80 HEMOGLOBIN (BEAKER) (test eotj=325) 9.9 GM/DL 13.0-16.8 HEMATOCRIT (BEAKER) (test ussk=106) 30.8 % 40.0-50.0 MEAN CORPUSCULAR VOLUME (BEAKER) (test khor=055) 98.6 fL 82.0-98.0 MEAN CORPUSCULAR HEMOGLOBIN (BEAKER) (test 31.7 pg 27.0-33.0 avlz=700) MEAN CORPUSCULAR HEMOGLOBIN CONC (BEAKER) (test 32.1 GM/DL 32.0-36.0 bqsa=249) RED CELL DISTRIBUTION WIDTH (BEAKER) (test 13.8 % 10.3-14.2 wkjo=392) PLATELET COUNT (BEAKER) (test yjuq=978) 43 K/CU MM 150-430 MEAN PLATELET VOLUME (BEAKER) (test avve=915) 9.5 fL 6.5-10.5 NUCLEATED RED BLOOD CELLS (BEAKER) (test 0 /100 WBC 0-0 hkwi=786) NEUTROPHILS RELATIVE PERCENT (BEAKER) (test 84 % ljap=406) LYMPHOCYTES RELATIVE PERCENT (BEAKER) (test 5 % eijz=690) MONOCYTES RELATIVE PERCENT (BEAKER) (test 11 % djdd=967) EOSINOPHILS RELATIVE PERCENT (BEAKER) (test 0 % ygcv=716) BASOPHILS RELATIVE PERCENT (BEAKER) (test 0 % ydii=886) NEUTROPHILS ABSOLUTE COUNT (BEAKER) (test 5.73 K/ L 1.80-8.00 muvp=542) LYMPHOCYTES ABSOLUTE COUNT (BEAKER) (test 0.34 K/ L 1.48-4.50 nxal=178) MONOCYTES ABSOLUTE COUNT (BEAKER) (test umqf=793) 0.77 K/ L 0.00-1.30 EOSINOPHILS ABSOLUTE COUNT (BEAKER) (test 0.01 K/ L 0.00-0.50 rkjz=282) BASOPHILS ABSOLUTE COUNT (BEAKER) (test mzhs=209) 0.00 K/ L 0.00-0.20 0.00BASI METABOLIC [id number] 06:21:00 Test Item Value Reference Range Comments SODIUM (BEAKER) (test 141 meq/L 136-145 perl=307) POTASSIUM (BEAKER) (test 3.6 meq/L 3.5-5.1 hdnd=937) CHLORIDE (BEAKER) (test 98 meq/L 98-107 vadr=632) CO2 (BEAKER) (test 31 meq/L 22-29 wiia=432) BLOOD UREA NITROGEN 60 mg/dL 7-21 (BEAKER) (test qmhr=093) CREATININE (BEAKER) (test 1.06 mg/dL 0.57-1.25 tprn=067) GLUCOSE RANDOM (BEAKER) 88 mg/dL 70-105 (test cqby=483) CALCIUM (BEAKER) (test 9.3 mg/dL 8.4-10.2 fjqs=935) EGFR (BEAKER) (test mL/min/1.73 sq m INSUFFICIENT CLINICAL DATA nxig=5804) TO CALCULATE ESTIMATED GFR. [id number] 06:20:00 Test Item Value Reference Range Comments FIBRINOGEN LEVEL (BEAKER) (test tbui=763) 128 mg/dl 225-434 HEPATIC FUNCTION [id number] 06:18:00 Test Item Value Reference Range Comments TOTAL PROTEIN (BEAKER) (test usgy=435) 7.7 gm/dL 6.0-8.3 ALBUMIN (BEAKER) (test hqtf=9139) 4.1 g/dL 3.5-5.0 BILIRUBIN TOTAL (BEAKER) (test zxpb=354) 1.0 mg/dL 0.2-1.2 BILIRUBIN DIRECT (BEAKER) (test lrwv=251) 0.6 mg/dL 0.1-0.5 ALKALINE PHOSPHATASE (BEAKER) (test ujvd=573) 89 U/L 40-150 AST (SGOT) (BEAKER) (test wrhz=299) 30 U/L 5-34 ALT (SGPT) (BEAKER) (test bvrt=301) 17 U/L 6-55 PROTHROMBIN [id number] 06:15:00 Test Item Value Reference Range Comments PROTIME (BEAKER) (test ldkg=414) 19.5 seconds 11.7-14.7 INR (BEAKER) (test mvwa=748) 1.7 <=5.9 RECOMMENDED COUMADIN/WARFARIN INR THERAPY RANGESSTANDARD DOSE: 2.0 - 3.0 Includes: PROPHYLAXIS forvenous thrombosis, systemic embolization; TREATMENT for venous thrombosis and/or pulmonary embolus.HIGH RISK: Target INR is 2.5-3.5 for patients with mechanical heart valves.POCT-GLUCOSE [id number] 21:14:00 Test Item Value Reference Range Comments POC-GLUCOSE METER (BEAKER) 133 mg/dL 70-110 TESTED AT [address] (test hlau=7881) [facility] [address] POCT-GLUCOSE [id number] 17:48:00 Test Item Value Reference Range Comments POC-GLUCOSE METER (BEAKER) 236 mg/dL 70-[address] [facility] [address] (test gtfo=3962) [facility] [address] POCT-GLUCOSE [id number] 08:18:00 Test Item Value Reference Range Comments POC-GLUCOSE METER (BEAKER) 86 mg/dL 70-110 TESTED AT [place] [id number] (test odgs=5547) [facility] [address] BASIC METABOLIC [id number] 05:37:00 Test Item Value Reference Range Comments SODIUM (BEAKER) (test 140 meq/L 136-145 awhk=759) POTASSIUM (BEAKER) (test 3.8 meq/L 3.5-5.1 stzh=105) CHLORIDE (BEAKER) (test 96 meq/L 98-107 vyiq=471) CO2 (BEAKER) (test 32 meq/L 22-29 gbcp=463) BLOOD UREA NITROGEN 64 mg/dL 7-21 (BEAKER) (test nwej=807) CREATININE (BEAKER) (test 1.25 mg/dL 0.57-1.25 aiwk=946) GLUCOSE RANDOM (BEAKER) 129 mg/dL 70-105 (test shhq=333) CALCIUM (BEAKER) (test 9.4 mg/dL 8.4-10.2 iioa=853) EGFR (BEAKER) (test mL/min/1.73 sq m INSUFFICIENT CLINICAL DATA afxx=5068) TO CALCULATE ESTIMATED GFR. HEPATIC FUNCTION [id number] 05:30:00 Test Item Value Reference Range Comments TOTAL PROTEIN (BEAKER) (test wvgk=324) 8.2 gm/dL 6.0-8.3 ALBUMIN (BEAKER) (test ompd=8446) 4.3 g/dL 3.5-5.0 BILIRUBIN TOTAL (BEAKER) (test okuk=950) 1.0 mg/dL 0.2-1.2 BILIRUBIN DIRECT (BEAKER) (test vwzx=558) 0.6 mg/dL 0.1-0.5 ALKALINE PHOSPHATASE (BEAKER) (test yyyw=082) 92 U/L 40-150 AST (SGOT) (BEAKER) (test rulv=138) 27 U/L 5-34 ALT (SGPT) (BEAKER) (test khed=882) 18 U/L 6-55 [id number] 05:29:00 Test Item Value Reference Range Comments PHOSPHORUS (BEAKER) (test ahqw=920) 4.6 mg/dL 2.3-4.7 [id number] 05:29:00 Test Item Value Reference Range Comments MAGNESIUM (BEAKER) (test lwdq=240) 2.3 mg/dL 1.6-2.6 [id number] 05:00:00 Test Item Value Reference Range Comments FIBRINOGEN LEVEL (BEAKER) (test rpzx=064) 139 mg/dl 225-434 [id number] 04:55:00 Test Item Value Reference Range Comments PARTIAL THROMBOPLASTIN TIME (BEAKER) (test 29.7 seconds 22.5-36.0 qrmf=311) PROTHROMBIN [id number] 04:54:00 Test Item Value Reference Range Comments PROTIME (BEAKER) (test sfct=694) 18.8 seconds 11.7-14.7 INR (BEAKER) (test hwux=699) 1.6 <=5.9 RECOMMENDED COUMADIN/WARFARIN INR THERAPY RANGESSTANDARD DOSE: 2.0 - 3.0 Includes: PROPHYLAXIS forvenous thrombosis, systemic embolization; TREATMENT for venous thrombosis and/or pulmonary embolus.HIGH RISK: Target INR is 2.5-3.5 for patients with mechanical heart valves.CBC W/PLT COUNT & AUTO [id number] 04:52:00 Test Item Value Reference Range Comments WHITE BLOOD CELL COUNT (BEAKER) (test jiva=838) 6.9 K/ L 4.0-10.0 RED BLOOD CELL COUNT (BEAKER) (test acap=526) 3.13 M/ L 4.20-5.80 HEMOGLOBIN (BEAKER) (test rdfu=690) 10.1 GM/DL 13.0-16.8 HEMATOCRIT (BEAKER) (test slqh=031) 30.7 % 40.0-50.0 MEAN CORPUSCULAR VOLUME (BEAKER) (test fyvr=381) 98.1 fL 82.0-98.0 MEAN CORPUSCULAR HEMOGLOBIN (BEAKER) (test 32.2 pg 27.0-33.0 vkic=254) MEAN CORPUSCULAR HEMOGLOBIN CONC (BEAKER) (test 32.8 GM/DL 32.0-36.0 irtb=163) RED CELL DISTRIBUTION WIDTH (BEAKER) (test 13.8 % 10.3-14.2 wyps=403) PLATELET COUNT (BEAKER) (test jvkf=039) 67 K/CU MM 150-430 MEAN PLATELET VOLUME (BEAKER) (test msoe=002) 7.6 fL 6.5-10.5 NUCLEATED RED BLOOD CELLS (BEAKER) (test 0 /100 WBC 0-0 cktq=637) NEUTROPHILS RELATIVE PERCENT (BEAKER) (test 87 % uguv=503) LYMPHOCYTES RELATIVE PERCENT (BEAKER) (test 5 % clfr=106) MONOCYTES RELATIVE PERCENT (BEAKER) (test 8 % rhvx=796) EOSINOPHILS RELATIVE PERCENT (BEAKER) (test 0 % cbwb=450) BASOPHILS RELATIVE PERCENT (BEAKER) (test 0 % gokz=041) NEUTROPHILS ABSOLUTE COUNT (BEAKER) (test 6.02 K/ L 1.80-8.00 qdst=437) LYMPHOCYTES ABSOLUTE COUNT (BEAKER) (test 0.32 K/ L 1.48-4.50 fogh=603) MONOCYTES ABSOLUTE COUNT (BEAKER) (test tljx=616) 0.56 K/ L 0.00-1.30 EOSINOPHILS ABSOLUTE COUNT (BEAKER) (test 0.01 K/ L 0.00-0.50 jzbj=921) BASOPHILS ABSOLUTE COUNT (BEAKER) (test hkky=132) 0.00 K/ L 0.00-0.20 0.00POCT-GLUCOSE [id number] 21:17:00 Test Item Value Reference Range Comments POC-GLUCOSE METER (BEAKER) 191 mg/dL 70-110 TESTED AT [address] (test fvri=3186) [facility] [address] POCT-GLUCOSE [id number] 17:29:00 Test Item Value Reference Range Comments POC-GLUCOSE METER (BEAKER) 161 mg/dL 70-110 TESTED AT [address] (test mczs=5442) [facility] [address] POCT-GLUCOSE [id number] 11:48:00 Test Item Value Reference Range Comments POC-GLUCOSE METER (BEAKER) 103 mg/dL 70-110 TESTED AT [address] (test mtta=5233) [facility] [address] POCT-GLUCOSE [id number] 07:43:00 Test Item Value Reference Range Comments POC-GLUCOSE METER (BEAKER) 100 mg/dL 70-[address] [facility] [address] (test balm=6050) [facility] [address] BASIC METABOLIC [id number] 04:34:00 Test Item Value Reference Range Comments SODIUM (BEAKER) (test 139 meq/L 136-145 ftab=871) POTASSIUM (BEAKER) (test 3.5 meq/L 3.5-5.1 ueix=229) CHLORIDE (BEAKER) (test 94 meq/L 98-107 xpbi=292) CO2 (BEAKER) (test 33 meq/L 22-29 pesp=421) BLOOD UREA NITROGEN 64 mg/dL 7-21 (BEAKER) (test jwzu=904) CREATININE (BEAKER) (test 1.16 mg/dL 0.57-1.25 sioh=728) GLUCOSE RANDOM (BEAKER) 122 mg/dL 70-105 (test tdtt=676) CALCIUM (BEAKER) (test 9.2 mg/dL 8.4-10.2 ehsh=268) EGFR (BEAKER) (test mL/min/1.73 sq m INSUFFICIENT CLINICAL DATA txxb=5333) TO CALCULATE ESTIMATED GFR. [id number] 04:33:00 Test Item Value Reference Range Comments MAGNESIUM (BEAKER) (test zrnu=594) 2.2 mg/dL 1.6-2.6 [id number] 04:33:00 Test Item Value Reference Range Comments PHOSPHORUS (BEAKER) (test mixg=850) 3.8 mg/dL 2.3-4.7 HEPATIC FUNCTION [id number] 04:33:00 Test Item Value Reference Range Comments TOTAL PROTEIN (BEAKER) (test jibh=543) 7.7 gm/dL 6.0-8.3 ALBUMIN (BEAKER) (test tvya=6459) 4.2 g/dL 3.5-5.0 BILIRUBIN TOTAL (BEAKER) (test jidh=556) 0.9 mg/dL 0.2-1.2 BILIRUBIN DIRECT (BEAKER) (test bcpu=029) 0.6 mg/dL 0.1-0.5 ALKALINE PHOSPHATASE (BEAKER) (test qokd=113) 87 U/L 40-150 AST (SGOT) (BEAKER) (test blpq=544) 26 U/L 5-34 ALT (SGPT) (BEAKER) (test nftd=601) 15 U/L 6-55 [id number] 04:30:00 Test Item Value Reference Range Comments FIBRINOGEN LEVEL (BEAKER) (test qksl=149) 137 mg/dl 225-434 [id number] 04:25:00 Test Item Value Reference Range Comments PARTIAL THROMBOPLASTIN TIME (BEAKER) (test 30.2 seconds 22.5-36.0 yddm=965) PROTHROMBIN [id number] 04:24:00 Test Item Value Reference Range Comments PROTIME (BEAKER) (test adiu=477) 19.5 seconds 11.7-14.7 INR (BEAKER) (test wubw=563) 1.7 <=5.9 RECOMMENDED COUMADIN/WARFARIN INR THERAPY RANGESSTANDARD DOSE: 2.0 - 3.0 Includes: PROPHYLAXIS forvenous thrombosis, systemic embolization; TREATMENT for venous thrombosis and/or pulmonary embolus.HIGH RISK: Target INR is 2.5-3.5 for patients with mechanical heart valves.CBC W/PLT COUNT & AUTO [id number] 04:19:00 Test Item Value Reference Range Comments WHITE BLOOD CELL COUNT (BEAKER) (test sypw=140) 6.9 K/ L 4.0-10.0 RED BLOOD CELL COUNT (BEAKER) (test bxig=219) 2.95 M/ L 4.20-5.80 HEMOGLOBIN (BEAKER) (test veje=564) 9.7 GM/DL 13.0-16.8 HEMATOCRIT (BEAKER) (test izvh=502) 28.9 % 40.0-50.0 MEAN CORPUSCULAR VOLUME (BEAKER) (test ocwv=277) 98.1 fL 82.0-98.0 MEAN CORPUSCULAR HEMOGLOBIN (BEAKER) (test 32.7 pg 27.0-33.0 ajwk=606) MEAN CORPUSCULAR HEMOGLOBIN CONC (BEAKER) (test 33.4 GM/DL 32.0-36.0 ziog=852) RED CELL DISTRIBUTION WIDTH (BEAKER) (test 14.4 % 10.3-14.2 gzbu=908) PLATELET COUNT (BEAKER) (test ubef=554) 65 K/CU MM 150-430 MEAN PLATELET VOLUME (BEAKER) (test gkmz=305) 8.4 fL 6.5-10.5 NUCLEATED RED BLOOD CELLS (BEAKER) (test 0 /100 WBC 0-0 tdfp=791) NEUTROPHILS RELATIVE PERCENT (BEAKER) (test 85 % qjii=744) LYMPHOCYTES RELATIVE PERCENT (BEAKER) (test 6 % kmyf=856) MONOCYTES RELATIVE PERCENT (BEAKER) (test 9 % zdzf=395) EOSINOPHILS RELATIVE PERCENT (BEAKER) (test 0 % ruan=029) BASOPHILS RELATIVE PERCENT (BEAKER) (test 0 % cbwm=816) NEUTROPHILS ABSOLUTE COUNT (BEAKER) (test 5.83 K/ L 1.80-8.00 peas=799) LYMPHOCYTES ABSOLUTE COUNT (BEAKER) (test 0.38 K/ L 1.48-4.50 xvdn=802) MONOCYTES ABSOLUTE COUNT (BEAKER) (test pdot=341) 0.65 K/ L 0.00-1.30 EOSINOPHILS ABSOLUTE COUNT (BEAKER) (test 0.02 K/ L 0.00-0.50 ostn=857) BASOPHILS ABSOLUTE COUNT (BEAKER) (test ugbl=120) 0.02 K/ L 0.00-0.20 0.00POCT-GLUCOSE [id number] 17:17:00 Test Item Value Reference Range Comments POC-GLUCOSE METER (BEAKER) 149 mg/dL 70-110 TESTED AT [address] (test wpbh=9009) [place] [id number] POCT-GLUCOSE [id number] 13:08:00 Test Item Value Reference Range Comments POC-GLUCOSE METER (BEAKER) 106 mg/dL 70-110 TESTED AT [address] (test zhcv=4563) [place] [id number] CBC W/PLT COUNT & AUTO [id number] 08:13:00 Test Item Value Reference Range Comments WHITE BLOOD CELL COUNT (BEAKER) 5.5 K/ L 4.0-10.0 (test mous=196) RED BLOOD CELL COUNT (BEAKER) 2.95 M/ L 4.20-5.80 (test likk=337) HEMOGLOBIN (BEAKER) (test 9.5 GM/DL 13.0-16.8 fldx=388) HEMATOCRIT (BEAKER) (test 29.1 % 40.0-50.0 lpog=615) MEAN CORPUSCULAR VOLUME 98.4 fL 82.0-98.0 (BEAKER) (test zafg=763) MEAN CORPUSCULAR HEMOGLOBIN 32.2 pg 27.0-33.0 (BEAKER) (test tdhn=935) MEAN CORPUSCULAR HEMOGLOBIN 32.8 GM/DL 32.0-36.0 CONC (BEAKER) (test tfyn=277) RED CELL DISTRIBUTION WIDTH 13.8 % 10.3-14.2 (BEAKER) (test nwav=527) PLATELET COUNT (BEAKER) (test K/CU MM 150-430 plt clumps, see manual plt hthm=670) count MEAN PLATELET VOLUME (BEAKER) 9.2 fL 6.5-10.5 (test bski=000) NUCLEATED RED BLOOD CELLS 0 /100 WBC 0-0 (BEAKER) (test dvqx=750) NEUTROPHILS RELATIVE PERCENT 85 % (BEAKER) (test itmx=848) LYMPHOCYTES RELATIVE PERCENT 4 % (BEAKER) (test jdph=569) MONOCYTES RELATIVE PERCENT 10 % (BEAKER) (test zswl=059) EOSINOPHILS RELATIVE PERCENT 0 % (BEAKER) (test pkbd=037) BASOPHILS RELATIVE PERCENT 0 % (BEAKER) (test wcvi=871) NEUTROPHILS ABSOLUTE COUNT 4.72 K/ L 1.80-8.00 (BEAKER) (test zbqr=937) LYMPHOCYTES ABSOLUTE COUNT 0.23 K/ L 1.48-4.50 (BEAKER) (test lpqi=168) MONOCYTES ABSOLUTE COUNT 0.57 K/ L 0.00-1.30 (BEAKER) (test pkub=589) EOSINOPHILS ABSOLUTE COUNT 0.01 K/ L 0.00-0.50 (BEAKER) (test gwlm=077) BASOPHILS ABSOLUTE COUNT 0.01 K/ L 0.00-0.20 (BEAKER) (test yawi=144) 0.00(MANUAL DIFFERENTIAL)2016-09-13 08:13:00 Test Item Value Reference Range Comments TOTAL COUNTED (BEAKER) (test uuwl=5951) WBC MORPHOLOGY (BEAKER) (test vlfz=706) Normal LARGE PLT(BEAKER) (test wzty=5575) Present CLUMPED PLATELETS (BEAKER) (test cbet=838) Present ANISOCYTOSIS (BEAKER) (test ckyv=136) 1+ few HYPOCHROMIA (BEAKER) (test hfyi=550) 1+ few MACROCYTES (BEAKER) (test rhgs=092) 1+ few OVALOCYTES (BEAKER) (test isij=311) 1+ few POIKILOCYTES (BEAKER) (test ugfu=930) 1+ few PLATELET COUNT BY MANUAL [id number] 08:13:00 Test Item Value Reference Range Comments PLATELET COUNT MANUAL (BEAKER) (test wyqm=8654) 60 K/CU MM 150-430 POCT-GLUCOSE [id number] 07:37:00 Test Item Value Reference Range Comments POC-GLUCOSE METER (BEAKER) 113 mg/dL 70-[address] [facility] [address] (test wlrd=4227) [facility] [address] BASIC METABOLIC [id number] 06:17:00 Test Item Value Reference Range Comments SODIUM (BEAKER) (test 141 meq/L 136-145 hefy=699) POTASSIUM (BEAKER) (test 3.7 meq/L 3.5-5.1 wfcl=146) CHLORIDE (BEAKER) (test 98 meq/L 98-107 xmzx=437) CO2 (BEAKER) (test 33 meq/L 22-29 kpee=203) BLOOD UREA NITROGEN 65 mg/dL 7-21 (BEAKER) (test nxit=669) CREATININE (BEAKER) (test 1.15 mg/dL 0.57-1.25 fomq=335) GLUCOSE RANDOM (BEAKER) 115 mg/dL 70-105 (test wvqs=301) CALCIUM (BEAKER) (test 9.0 mg/dL 8.4-10.2 daoy=836) EGFR (BEAKER) (test mL/min/1.73 sq m INSUFFICIENT CLINICAL DATA fiqt=1142) TO CALCULATE ESTIMATED GFR. [id number] 05:59:00 Test Item Value Reference Range Comments FIBRINOGEN LEVEL (BEAKER) (test jdnf=623) 157 mg/dl 225-434 [id number] 05:53:00 Test Item Value Reference Range Comments PARTIAL THROMBOPLASTIN TIME (BEAKER) (test 31.2 seconds 22.5-36.0 noia=273) PROTHROMBIN [id number] 05:52:00 Test Item Value Reference Range Comments PROTIME (BEAKER) (test dlxe=520) 20.3 seconds 11.7-14.7 INR (BEAKER) (test xlcd=028) 1.7 <=5.9 RECOMMENDED COUMADIN/WARFARIN INR THERAPY RANGESSTANDARD DOSE: 2.0 - 3.0 Includes: PROPHYLAXIS forvenous thrombosis, systemic embolization; TREATMENT for venous thrombosis and/or pulmonary embolus.HIGH RISK: Target INR is 2.5-3.5 for patients with mechanical heart valves.POCT-GLUCOSE [id number] 21:09:00 Test Item Value Reference Range Comments POC-GLUCOSE METER (BEAKER) 233 mg/dL 70-110 TESTED AT [address] (test wisw=9828) [place] [address] POCT-GLUCOSE [id number] 13:03:00 Test Item Value Reference Range Comments POC-GLUCOSE METER (BEAKER) 93 mg/dL 70-110 TESTED AT [address] (test iztb=0038) [place] [address] BASIC METABOLIC [id number] 07:06:00 Test Item Value Reference Range Comments SODIUM (BEAKER) (test 140 meq/L 136-145 vzqu=449) POTASSIUM (BEAKER) (test 4.0 meq/L 3.5-5.1 fsno=758) CHLORIDE (BEAKER) (test 99 meq/L 98-107 tgul=177) CO2 (BEAKER) (test 29 meq/L 22-29 qmtl=864) BLOOD UREA NITROGEN 66 mg/dL 7-21 (BEAKER) (test yiwt=893) CREATININE (BEAKER) (test 1.28 mg/dL 0.57-1.25 xqez=486) GLUCOSE RANDOM (BEAKER) 108 mg/dL 70-105 (test ubyp=198) CALCIUM (BEAKER) (test 8.9 mg/dL 8.4-10.2 elkx=332) EGFR (BEAKER) (test mL/min/1.73 sq m INSUFFICIENT CLINICAL DATA wprh=5171) TO CALCULATE ESTIMATED GFR. B-TYPE NATRIURETIC FACTOR (BNP)2016-09-12 07:04:00 Test Item Value Reference Range Comments B-TYPE NATRIURETIC PEPTIDE (BEAKER) (test 323 pg/mL 0-100 vasx=449) CBC W/PLT COUNT & AUTO [id number] 07:02:00 Test Item Value Reference Range Comments WHITE BLOOD CELL COUNT (BEAKER) (test tsda=267) 6.2 K/ L 4.0-10.0 RED BLOOD CELL COUNT (BEAKER) (test lvuo=644) 2.82 M/ L 4.20-5.80 HEMOGLOBIN (BEAKER) (test nhbh=682) 9.2 GM/DL 13.0-16.8 HEMATOCRIT (BEAKER) (test mgzy=724) 27.9 % 40.0-50.0 MEAN CORPUSCULAR VOLUME (BEAKER) (test bubw=294) 98.7 fL 82.0-98.0 MEAN CORPUSCULAR HEMOGLOBIN (BEAKER) (test 32.7 pg 27.0-33.0 bcam=571) MEAN CORPUSCULAR HEMOGLOBIN CONC (BEAKER) (test 33.2 GM/DL 32.0-36.0 wsoc=818) RED CELL DISTRIBUTION WIDTH (BEAKER) (test 13.8 % 10.3-14.2 ltvb=766) PLATELET COUNT (BEAKER) (test waeg=353) 52 K/CU MM 150-430 MEAN PLATELET VOLUME (BEAKER) (test fspc=282) 8.6 fL 6.5-10.5 NUCLEATED RED BLOOD CELLS (BEAKER) (test 0 /100 WBC 0-0 fjut=083) NEUTROPHILS RELATIVE PERCENT (BEAKER) (test 85 % sqjy=727) LYMPHOCYTES RELATIVE PERCENT (BEAKER) (test 4 % ksgg=654) MONOCYTES RELATIVE PERCENT (BEAKER) (test 10 % maxm=997) EOSINOPHILS RELATIVE PERCENT (BEAKER) (test 0 % lghu=471) BASOPHILS RELATIVE PERCENT (BEAKER) (test 1 % mvct=384) NEUTROPHILS ABSOLUTE COUNT (BEAKER) (test 5.26 K/ L 1.80-8.00 pula=139) LYMPHOCYTES ABSOLUTE COUNT (BEAKER) (test 0.24 K/ L 1.48-4.50 elol=871) MONOCYTES ABSOLUTE COUNT (BEAKER) (test qvuo=190) 0.61 K/ L 0.00-1.30 EOSINOPHILS ABSOLUTE COUNT (BEAKER) (test 0.01 K/ L 0.00-0.50 xyqh=526) BASOPHILS ABSOLUTE COUNT (BEAKER) (test rfkn=303) 0.06 K/ L 0.00-0.20 [id number] 06:59:00 Test Item Value Reference Range Comments FIBRINOGEN LEVEL (BEAKER) (test wrwz=387) 150 mg/dl 225-434 [id number] 06:55:00 Test Item Value Reference Range Comments PARTIAL THROMBOPLASTIN TIME (BEAKER) (test 32.2 seconds 22.5-36.0 mhma=542) PROTHROMBIN [id number] 06:52:00 Test Item Value Reference Range Comments PROTIME (BEAKER) (test chve=416) 20.2 seconds 11.7-14.7 INR (BEAKER) (test ngsd=958) 1.7 <=5.9 RECOMMENDED COUMADIN/WARFARIN INR THERAPY RANGESSTANDARD DOSE: 2.0 - 3.0 Includes: PROPHYLAXIS forvenous thrombosis, systemic embolization; TREATMENT for venous thrombosis and/or pulmonary embolus.HIGH RISK: Target INR is 2.5-3.5 for patients with mechanical heart valves.POCT-GLUCOSE [id number] 21:59:00 Test Item Value Reference Range Comments POC-GLUCOSE METER ([facility]) 168 mg/dL 70-110 TESTED AT [address] (test vxfl=0464) [place] [address] BODY FLUID CULTURE + GRAM [id number] 14:32:00 Test Item Value Reference Range Comments CULTURE (BEAKER) (test aixz=7150) No growth GRAM STAIN RESULT (BEAKER) (test 2+ WBCs argt=7817) GRAM STAIN RESULT ([facility]) (test No organisms seen ikua=47494) POCT-GLUCOSE [id number] 11:29:00 Test Item Value Reference Range Comments POC-GLUCOSE METER ([facility]) 94 mg/dL 70-110 TESTED AT [address] (test lqgj=7574) [place] [id number] CBC W/PLT COUNT & AUTO [id number] 09:59:00 Test Item Value Reference Range Comments WHITE BLOOD CELL COUNT (BEAKER) (test qasc=537) 7.6 K/ L 4.0-10.0 RED BLOOD CELL COUNT (BEAKER) (test aoxj=986) 3.23 M/ L 4.20-5.80 HEMOGLOBIN (BEAKER) (test ftsd=834) 9.5 GM/DL 13.0-16.8 HEMATOCRIT (BEAKER) (test cwhy=141) 31.9 % 40.0-50.0 MEAN CORPUSCULAR VOLUME (BEAKER) (test qjou=244) 98.6 fL 82.0-98.0 MEAN CORPUSCULAR HEMOGLOBIN (BEAKER) (test 29.5 pg 27.0-33.0 tjbg=366) MEAN CORPUSCULAR HEMOGLOBIN CONC (BEAKER) (test 29.9 GM/DL 32.0-36.0 csnk=198) RED CELL DISTRIBUTION WIDTH (BEAKER) (test 13.8 % 10.3-14.2 zyiq=898) PLATELET COUNT (BEAKER) (test fhwf=915) 33 K/CU MM 150-430 MEAN PLATELET VOLUME (BEAKER) (test ewld=126) 9.9 fL 6.5-10.5 NUCLEATED RED BLOOD CELLS (BEAKER) (test 0 /100 WBC 0-0 lago=698) NEUTROPHILS RELATIVE PERCENT (BEAKER) (test 86 % nhjz=693) LYMPHOCYTES RELATIVE PERCENT (BEAKER) (test 4 % hooh=568) MONOCYTES RELATIVE PERCENT (BEAKER) (test 10 % wbmp=833) EOSINOPHILS RELATIVE PERCENT (BEAKER) (test 0 % vncx=536) BASOPHILS RELATIVE PERCENT (BEAKER) (test 1 % rbsr=458) NEUTROPHILS ABSOLUTE COUNT (BEAKER) (test 6.55 K/ L 1.80-8.00 qocq=795) LYMPHOCYTES ABSOLUTE COUNT (BEAKER) (test 0.27 K/ L 1.48-4.50 mykc=267) MONOCYTES ABSOLUTE COUNT (BEAKER) (test vxho=535) 0.76 K/ L 0.00-1.30 EOSINOPHILS ABSOLUTE COUNT (BEAKER) (test 0.01 K/ L 0.00-0.50 vaqp=030) BASOPHILS ABSOLUTE COUNT (BEAKER) (test nzje=256) 0.05 K/ L 0.00-0.20 [id number].000.000.000.000.000.000.000.00(MANUAL DIFFERENTIAL)2016-09-11 09:59:00 Test Item Value Reference Range Comments TOTAL COUNTED (BEAKER) (test szlv=4370) POCT-GLUCOSE [id number] 08:02:00 Test Item Value Reference Range Comments POC-GLUCOSE METER (BEAKER) 173 mg/dL 70-[address] [facility] [address] (test mije=4405) [facility] [address] BLOOD [id number] 06:00:00 Test Item Value Reference Range Comments CULTURE (BEAKER) (test bflh=3677) No growth in 5 days BLOOD [id number] 06:00:00 Test Item Value Reference Range Comments CULTURE (BEAKER) (test htal=7295) No growth in 5 days BASIC METABOLIC [id number] 05:16:00 Test Item Value Reference Range Comments SODIUM (BEAKER) (test 137 meq/L 136-145 xxvg=333) POTASSIUM (BEAKER) (test 4.3 meq/L 3.5-5.1 hijv=279) CHLORIDE (BEAKER) (test 100 meq/L 98-107 kigt=689) CO2 (BEAKER) (test 28 meq/L 22-29 vois=796) BLOOD UREA NITROGEN 63 mg/dL 7-21 (BEAKER) (test qvzw=628) CREATININE (BEAKER) (test 1.35 mg/dL 0.57-1.25 sdtv=382) GLUCOSE RANDOM (BEAKER) 107 mg/dL 70-105 (test pwcf=297) CALCIUM (BEAKER) (test 8.8 mg/dL 8.4-10.2 zxbb=199) EGFR (BEAKER) (test mL/min/1.73 sq m INSUFFICIENT CLINICAL DATA hflz=3529) TO CALCULATE ESTIMATED GFR. [id number] 05:05:00 Test Item Value Reference Range Comments FIBRINOGEN LEVEL (BEAKER) (test tnud=725) 182 mg/dl 225-434 PROTHROMBIN [id number] 05:04:00 Test Item Value Reference Range Comments PROTIME (BEAKER) (test hvav=211) 19.1 seconds 11.7-14.7 INR (BEAKER) (test mgre=376) 1.6 <=5.9 RECOMMENDED COUMADIN/WARFARIN INR THERAPY RANGESSTANDARD DOSE: 2.0 - 3.0 Includes: PROPHYLAXIS forvenous thrombosis, systemic embolization; TREATMENT for venous thrombosis and/or pulmonary embolus.HIGH RISK: Target INR is 2.5-3.5 for patients with mechanical heart valves.[id number] 05:04:00 Test Item Value Reference Range Comments PARTIAL THROMBOPLASTIN TIME (BEAKER) (test 31.5 seconds 22.5-36.0 rkoh=090) POCT-GLUCOSE [id number] 21:44:00 Test Item Value Reference Range Comments POC-GLUCOSE METER (BEAKER) 167 mg/dL 70-110 TESTED AT [address] (test hfmc=8709) [place] [id number] POCT-GLUCOSE [id number] 18:07:00 Test Item Value Reference Range Comments POC-GLUCOSE METER (BEAKER) 159 mg/dL 70-110 TESTED AT [address] (test ufnr=4959) [place] [id number] POCT-GLUCOSE [id number] 11:58:00 Test Item Value Reference Range Comments POC-GLUCOSE METER (BEAKER) 153 mg/dL 70-110 TESTED AT [address] (test eplu=7405) [facility] [address] CBC W/PLT COUNT & AUTO [id number] 09:13:00 Test Item Value Reference Range Comments WHITE BLOOD CELL COUNT (BEAKER) (test fvds=627) 7.7 K/ L 4.0-10.0 RED BLOOD CELL COUNT (BEAKER) (test epfl=253) 2.97 M/ L 4.20-5.80 HEMOGLOBIN (BEAKER) (test bdwv=674) 9.7 GM/DL 13.0-16.8 HEMATOCRIT (BEAKER) (test jstl=001) 29.2 % 40.0-50.0 MEAN CORPUSCULAR VOLUME (BEAKER) (test nrzl=928) 98.1 fL 82.0-98.0 MEAN CORPUSCULAR HEMOGLOBIN (BEAKER) (test 32.6 pg 27.0-33.0 mdol=844) MEAN CORPUSCULAR HEMOGLOBIN CONC (BEAKER) (test 33.2 GM/DL 32.0-36.0 eiur=198) RED CELL DISTRIBUTION WIDTH (BEAKER) (test 13.7 % 10.3-14.2 zvva=552) PLATELET COUNT (BEAKER) (test siwl=150) 25 K/CU MM 150-430 MEAN PLATELET VOLUME (BEAKER) (test chty=000) 10.2 fL 6.5-10.5 NUCLEATED RED BLOOD CELLS (BEAKER) (test 0 /100 WBC 0-0 nmsl=640) NEUTROPHILS RELATIVE PERCENT (BEAKER) (test 86 % qefo=777) LYMPHOCYTES RELATIVE PERCENT (BEAKER) (test 4 % hcea=480) MONOCYTES RELATIVE PERCENT (BEAKER) (test 10 % alog=631) EOSINOPHILS RELATIVE PERCENT (BEAKER) (test 0 % dexa=463) BASOPHILS RELATIVE PERCENT (BEAKER) (test 0 % rswl=662) NEUTROPHILS ABSOLUTE COUNT (BEAKER) (test 6.61 K/ L 1.80-8.00 ittf=369) LYMPHOCYTES ABSOLUTE COUNT (BEAKER) (test 0.29 K/ L 1.48-4.50 zjzt=931) MONOCYTES ABSOLUTE COUNT (BEAKER) (test qrtp=535) 0.77 K/ L 0.00-1.30 EOSINOPHILS ABSOLUTE COUNT (BEAKER) (test 0.01 K/ L 0.00-0.50 yruq=379) BASOPHILS ABSOLUTE COUNT (BEAKER) (test glde=679) 0.00 K/ L 0.00-0.20 0.00POCT-GLUCOSE [id number] 08:17:00 Test Item Value Reference Range Comments POC-GLUCOSE METER (BEAKER) 110 mg/dL 70-[address] [facility] [address] (test svfy=1989) [facility] [address] BASIC METABOLIC [id number] 07:06:00 Test Item Value Reference Range Comments SODIUM (BEAKER) (test 135 meq/L 136-145 ekdu=612) POTASSIUM (BEAKER) (test 4.6 meq/L 3.5-5.1 lczo=451) CHLORIDE (BEAKER) (test 101 meq/L 98-107 hycc=624) CO2 (BEAKER) (test 26 meq/L 22-29 sesl=498) BLOOD UREA NITROGEN 57 mg/dL 7-21 (BEAKER) (test enls=211) CREATININE (BEAKER) (test 1.69 mg/dL 0.57-1.25 duqe=973) GLUCOSE RANDOM (BEAKER) 121 mg/dL 70-105 (test xume=739) CALCIUM (BEAKER) (test 8.3 mg/dL 8.4-10.2 kzmo=818) EGFR (BEAKER) (test mL/min/1.73 sq m INSUFFICIENT CLINICAL DATA sqev=0468) TO CALCULATE ESTIMATED GFR. [id number] 06:52:00 Test Item Value Reference Range Comments FIBRINOGEN LEVEL (BEAKER) (test ktpd=162) 203 mg/dl 225-434 [id number] 06:52:00 Test Item Value Reference Range Comments PARTIAL THROMBOPLASTIN TIME (BEAKER) (test 32.6 seconds 22.5-36.0 etrk=106) PROTHROMBIN [id number] 06:51:00 Test Item Value Reference Range Comments PROTIME (BEAKER) (test rntb=667) 19.8 seconds 11.7-14.7 INR (BEAKER) (test ucox=295) 1.7 <=5.9 RECOMMENDED COUMADIN/WARFARIN INR THERAPY RANGESSTANDARD DOSE: 2.0 - 3.0 Includes: PROPHYLAXIS forvenous thrombosis, systemic embolization; TREATMENT for venous thrombosis and/or pulmonary embolus.HIGH RISK: Target INR is 2.5-3.5 for patients with mechanical heart valves.POCT-GLUCOSE [id number] 21:51:00 Test Item Value Reference Range Comments POC-GLUCOSE METER (BEAKER) 157 mg/dL 70-110 TESTED AT [address] (test uvxu=6782) [place] [address] POCT-GLUCOSE [id number] 16:53:00 Test Item Value Reference Range Comments POC-GLUCOSE METER (BEAKER) 154 mg/dL 70-110 TESTED AT [address] (test bzhk=5850) [place] [address] POCT-GLUCOSE [id number] 12:31:00 Test Item Value Reference Range Comments POC-GLUCOSE METER (BEAKER) 190 mg/dL 70-110 TESTED AT [address] (test fivj=1416) [place] [address] CBC W/PLT COUNT & AUTO [id number] 09:48:00 Test Item Value Reference Range Comments WHITE BLOOD CELL COUNT (BEAKER) (test saau=177) 4.1 K/ L 4.0-10.0 RED BLOOD CELL COUNT (BEAKER) (test udll=722) 3.24 M/ L 4.20-5.80 HEMOGLOBIN (BEAKER) (test iqdd=605) 9.8 GM/DL 13.0-16.8 HEMATOCRIT (BEAKER) (test jxoo=659) 32.2 % 40.0-50.0 MEAN CORPUSCULAR VOLUME (BEAKER) (test qnej=787) 99.5 fL 82.0-98.0 MEAN CORPUSCULAR HEMOGLOBIN (BEAKER) (test 30.4 pg 27.0-33.0 egwx=653) MEAN CORPUSCULAR HEMOGLOBIN CONC (BEAKER) (test 30.5 GM/DL 32.0-36.0 mdhr=747) RED CELL DISTRIBUTION WIDTH (BEAKER) (test 13.8 % 10.3-14.2 lbvk=839) PLATELET COUNT (BEAKER) (test rsyo=250) 28 K/CU MM 150-430 MEAN PLATELET VOLUME (BEAKER) (test zuap=860) 9.7 fL 6.5-10.5 NUCLEATED RED BLOOD CELLS (BEAKER) (test 0 /100 WBC 0-0 bscr=588) NEUTROPHILS RELATIVE PERCENT (BEAKER) (test 90 % oqoh=058) LYMPHOCYTES RELATIVE PERCENT (BEAKER) (test 6 % jvso=902) MONOCYTES RELATIVE PERCENT (BEAKER) (test 3 % xajt=515) EOSINOPHILS RELATIVE PERCENT (BEAKER) (test 0 % dwjp=428) BASOPHILS RELATIVE PERCENT (BEAKER) (test 0 % blpo=285) NEUTROPHILS ABSOLUTE COUNT (BEAKER) (test 3.64 K/ L 1.80-8.00 nkab=716) LYMPHOCYTES ABSOLUTE COUNT (BEAKER) (test 0.26 K/ L 1.48-4.50 bryy=209) MONOCYTES ABSOLUTE COUNT (BEAKER) (test mujc=675) 0.14 K/ L 0.00-1.30 EOSINOPHILS ABSOLUTE COUNT (BEAKER) (test 0.01 K/ L 0.00-0.50 pchf=568) BASOPHILS ABSOLUTE COUNT (BEAKER) (test qgnt=495) 0.01 K/ L 0.00-0.20 0.00POCT-GLUCOSE [id number] 08:39:00 Test Item Value Reference Range Comments POC-GLUCOSE METER (BEAKER) 146 mg/dL 70-[address] [facility] [address] (test scxs=5243) [facility] [address] HEMOGLOBIN AND [id number] 06:53:00 Test Item Value Reference Range Comments HEMOGLOBIN (BEAKER) (test thfe=647) 9.6 GM/DL 13.0-16.8 HEMATOCRIT (BEAKER) (test wnql=352) 30.0 % 40.0-50.0 HEPATITIS PANEL, [id number] 05:20:00 Test Item Value Reference Range Comments HEPATITIS A IGM ANTIBODY (BEAKER) (test Nonreactive Nonreactive lynz=603) HEPATITIS B CORE IGM ANTIBODY (BEAKER) (test Nonreactive Nonreactive gtsh=269) HEPATITIS C ANTIBODY (BEAKER) (test acxq=083) Nonreactive Nonreactive HEPATITIS B SURFACE ANTIGEN (2) (BEAKER) (test Nonreactive Nonreactive uvua=2173) ALPHA FETOPROTEIN (AFP), TUMOR [id number] 05:20:00 Test Item Value Reference Range Comments ALPHA-FETOPROTEIN (BEAKER) (test dpku=9240) < ng/mL <10.0 Effective 05/09/2014: Reference Range ChangeNew: <10.0 Previous: 0.0- [id number] 05:10:00 Test Item Value Reference Range Comments PREALBUMIN (BEAKER) (test 9 mg/dL 14-45 Specimen slightly hemolyzed ketr=574) IMMUNOGLOBULIN G (IGG)2016-09-09 05:10:00 Test Item Value Reference Range Comments IMMUNOGLOBULIN G (IGG) (BEAKER) (test tkfy=887) 2488 mg/dL 540-1822 BASIC METABOLIC [id number] 04:56:00 Test Item Value Reference Range Comments SODIUM (BEAKER) (test 133 meq/L 136-145 vvsj=816) POTASSIUM (BEAKER) (test 5.2 meq/L 3.5-5.1 qewe=196) CHLORIDE (BEAKER) (test 99 meq/L 98-107 gjii=912) CO2 (BEAKER) (test 25 meq/L 22-29 wmpk=455) BLOOD UREA NITROGEN 47 mg/dL 7-21 (BEAKER) (test bpmx=628) CREATININE (BEAKER) (test 2.09 mg/dL 0.57-1.25 ybem=146) GLUCOSE RANDOM (BEAKER) 128 mg/dL 70-105 (test evjr=745) CALCIUM (BEAKER) (test 8.3 mg/dL 8.4-10.2 hche=593) EGFR (BEAKER) (test mL/min/1.73 sq m INSUFFICIENT CLINICAL DATA xrqi=5414) TO CALCULATE ESTIMATED GFR. [id number] 04:50:00 Test Item Value Reference Range Comments PARTIAL THROMBOPLASTIN TIME (BEAKER) (test 34.4 seconds 22.5-36.0 ajjl=118) PROTHROMBIN [id number] 04:49:00 Test Item Value Reference Range Comments PROTIME (BEAKER) (test cecg=389) 18.4 seconds 11.7-14.7 INR (BEAKER) (test wvyp=895) 1.5 <=5.9 RECOMMENDED COUMADIN/WARFARIN INR THERAPY RANGESSTANDARD DOSE: 2.0 - 3.0 Includes: PROPHYLAXIS forvenous thrombosis, systemic embolization; TREATMENT for venous thrombosis and/or pulmonary embolus.HIGH RISK: Target INR is 2.5-3.5 for patients with mechanical heart valves.[id number] 04:49:00 Test Item Value Reference Range Comments FIBRINOGEN LEVEL (BEAKER) (test yned=635) 265 mg/dl 225-434 HEMOGLOBIN AND [id number] 01:12:00 Test Item Value Reference Range Comments HEMOGLOBIN (BEAKER) (test yrhs=708) 9.8 GM/DL 13.0-16.8 HEMATOCRIT (BEAKER) (test hwig=482) 30.6 % 40.0-50.0 POCT-GLUCOSE [id number] 21:55:00 Test Item Value Reference Range Comments POC-GLUCOSE METER (BEAKER) 108 mg/dL 70-[address] [facility] [address] (test eveo=8744) [facility] [address] BODY FLUID CELL COUNT WITH [id number] 19:27:00 Test Item Value Reference Range Comments APPEARANCE FLUID (BEAKER) (test impp=574) Cloudy Clear COLOR FLUID (BEAKER) (test ltah=821) Niru Colorless, Straw RBC FLUID (BEAKER) (test ubym=540) 6800 /cu mm <=1 ADJUSTED WBC FLUID (BEAKER) (test wdse=7219) 283 /cu mm <=5 LINING CELLS (BEAKER) (test jgnu=4348) 0 /cu mm <=1 NEUTROPHILS FLUID (BEAKER) (test oauv=8964) 6 % LYMPHS FLUID (BEAKER) (test jqyh=026) 12 % MONO/MACROPHAGE FLUID (BEAKER) (test kaol=421) 82 % EOSINOPHILS FLUID (BEAKER) (test lgxx=119) 0 % BASO FLUID (BEAKER) (test nbfa=395) 0 % CONTAINER BODY FLUID (BEAKER) (test sdve=5684) EDTA Tube LACTATE DEHYDROGENASE (LDH), BODY [id number] 18:24:00 Test Item Value Reference Range Comments LACTATE DEHYDROGENASE FLUID (BEAKER) (test obhw=480) 118 U/L Absence of reference range indicates that normals have not been defined.Assay performance has not been validated for this type of specimen.POCT-GLUCOSE [id number] 18:18:00 Test Item Value Reference Range Comments POC-GLUCOSE METER (BEAKER) 137 mg/dL 70-[address] [facility] [address] (test dmbh=9942) [facility] [address] ALBUMIN, BODY [id number] 18:06:00 Test Item Value Reference Range Comments ALBUMIN FLUID (BEAKER) (test tlxb=024) 1.7 gm/dL Reference Range: No Normals Assay performance has not been validated for this type of specimen.[facility] (DRVV)2016-09-08 16:28:00 Test Item Value Reference Range Comments PROTIME (BEAKER) (test hjmr=916) 18.3 seconds 11.7-14.7 INR (BEAKER) (test qlgr=955) 1.6 <=5.9 PARTIAL THROMBOPLASTIN TIME 36.3 seconds 22.5-36.0 (BEAKER) (test sahe=370) DRVV INTERPRETATION (BEAKER) Normal DRVV Results (test yuam=3470) [id number] (BEAKER) Carolina Mahan MD (test shlb=7513) (electronic signature) DRVV SCREEN RATIO (BEAKER) (test 1.14 <1.20 zgdx=4749) Effective 10/25/2013: Test Method ChangeDRVV Screen Ratio, DRVV 1/1 Screen Ratio, DRVV Confirm Ratio,DRVV Normalized Ratio Reference Range: <1.2Protime Reference Range ChangeNew: 11.7-14.7 Previous: 9.8-12.0PTT Reference Range ChangeNew: 22.5-36.0 Previous: 25.8-34.5ALPHA FETOPROTEIN (AFP), TUMOR [id number] 16:23:00 Test Item Value Reference Range Comments ALPHA-FETOPROTEIN (BEAKER) (test mclt=3153) 2.0 ng/mL <10.0 Effective 05/09/2014: Reference Range ChangeNew: <10.0 Previous: 0.0- 8.0CBC W/PLT COUNT & AUTO [id number] 15:34:00 Test Item Value Reference Range Comments WHITE BLOOD CELL COUNT (BEAKER) (test pxig=529) 5.4 K/ L 4.0-10.0 RED BLOOD CELL COUNT (BEAKER) (test eorg=086) 3.02 M/ L 4.20-5.80 HEMOGLOBIN (BEAKER) (test mxvd=781) 9.8 GM/DL 13.0-16.8 HEMATOCRIT (BEAKER) (test omom=221) 30.0 % 40.0-50.0 MEAN CORPUSCULAR VOLUME (BEAKER) (test jvwx=619) 99.4 fL 82.0-98.0 MEAN CORPUSCULAR HEMOGLOBIN (BEAKER) (test 32.4 pg 27.0-33.0 ihpn=897) MEAN CORPUSCULAR HEMOGLOBIN CONC (BEAKER) (test 32.6 GM/DL 32.0-36.0 xhzm=135) RED CELL DISTRIBUTION WIDTH (BEAKER) (test 13.6 % 10.3-14.2 fcox=181) PLATELET COUNT (BEAKER) (test htvz=302) 46 K/CU MM 150-430 MEAN PLATELET VOLUME (BEAKER) (test rdgv=514) 7.7 fL 6.5-10.5 NUCLEATED RED BLOOD CELLS (BEAKER) (test 0 /100 WBC 0-0 myib=823) NEUTROPHILS RELATIVE PERCENT (BEAKER) (test 78 % xepa=013) LYMPHOCYTES RELATIVE PERCENT (BEAKER) (test 6 % nmax=230) MONOCYTES RELATIVE PERCENT (BEAKER) (test 14 % hlvc=206) EOSINOPHILS RELATIVE PERCENT (BEAKER) (test 2 % cnye=270) BASOPHILS RELATIVE PERCENT (BEAKER) (test 0 % szgd=830) NEUTROPHILS ABSOLUTE COUNT (BEAKER) (test 4.20 K/ L 1.80-8.00 alku=185) LYMPHOCYTES ABSOLUTE COUNT (BEAKER) (test 0.33 K/ L 1.48-4.50 pmhm=193) MONOCYTES ABSOLUTE COUNT (BEAKER) (test jjkf=939) 0.74 K/ L 0.00-1.30 EOSINOPHILS ABSOLUTE COUNT (BEAKER) (test 0.09 K/ L 0.00-0.50 dgqz=065) BASOPHILS ABSOLUTE COUNT (BEAKER) (test lmcz=404) 0.02 K/ L 0.00-0.20 0.00ANTI-NUCLEAR ANTIBODY (ANNEL)2016-09-08 15:18:00 Test Item Value Reference Range Comments ANTI-NUCLEAR ANTIBODY (ANNEL) (BEAKER) (test Negative Negative utul=538) EQUAL MIX, NORMAL [id number] 14:55:00 Test Item Value Reference Range Comments PROTIME (BEAKER) (test fukz=575) 18.3 seconds 11.7-14.7 PARTIAL THROMBOPLASTIN TIME (BEAKER) (test 36.3 seconds 22.5-36.0 ubnc=517) PT 1/1 MIX (BEAKER) (test vrke=4860) 14.6 SECS 11.7-14.7 PTT 1/1 MIX (BEAKER) (test klsx=1120) 33.9 SECS 22.5-36.0 THROMBIN [id number] 14:55:00 Test Item Value Reference Range Comments THROMBIN TIME (BEAKER) (test xfjb=766) 17.4 secs 13.8-20.0 IMMUNOFIXATION ELECTROPHORESIS (TEJAL)2016-09-08 13:53:00 Test Item Value Reference Range Comments IMMUNOGLOBULIN G (IGG) (BEAKER) 2100 mg/dL 540-1822 (test ubao=812) IMMUNOGLOBULIN A (IGA) (BEAKER) 450 mg/dL 63-484 (test jkvh=516) IMMUNOGLOBULIN M (IGM) (BEAKER) 126 mg/dL 22-293 (test mcce=741) SERUM TEJAL ID (BEAKER) (test No monoclonal bands detected. kmob=7964) Polyclonal distribution of normal immunoglobulins. [id number] ([facility] Carolina Mahan MD (test voij=2530) (electronic signature) PROTEIN ELECTROPHORESIS, [id number] 13:27:00 Test Item Value Reference Range Comments ALBUMIN FRACTION (BEAKER) 3.2 g/dL 3.5-5.5 (test jdyp=999) ALPHA 1 FRACTION (BEAKER) 0.3 g/dL 0.2-0.4 (test fxuk=045) ALPHA 2 FRACTION (BEAKER) 0.5 g/dL 0.5-0.9 (test xmnv=259) BETA FRACTION (BEAKER) (test 1.0 g/dL 0.6-1.1 jnuk=292) GAMMA GLOBULIN FRACTION 2.0 g/dL 0.7-1.7 (BEAKER) (test agzd=954) INTERPRETATION-119 (BEAKER) Slight polyclonal increase in (test uikq=6071) gamma globulins, suggesting chronic inflammatory state. No monoclonal bands detected. [id number] Carolina Mahan MD (BEAKER) (test mdfw=0294) (electronic signature) PROTEIN TOTAL SERUM, SPEP 7.0 gm/dL 6.0-8.3 (BEAKER) (test ctva=7212) POCT-GLUCOSE [id number] 12:17:00 Test Item Value Reference Range Comments POC-GLUCOSE METER (BEAKER) 117 mg/dL 70-[address] [facility] [address] (test hzvk=4256) [facility] [address] CARDIOLIPIN ANTIBODIES, IGG AND [id number] 12:04:00 Test Item Value Reference Range Comments ANTICARDIOLIPIN IGG ANTIBODY (BEAKER) (test < GPL ddsw=157) ANTICARDIOLIPIN IGM ANTIBODY (BEAKER) (test 0.9 MPL emrh=611) Anticardiolipin IgG Result Interpretation: NEG: <20 GPL; U/ml POS: & gt;/=20 GPL; U/mlAnticardiolipin IgM Result Interpretation: NEG: <20 MPL ; U/ml POS: >/=20 MPL; U/mlOSMOLALITY, [id number] 10:20:00 Test Item Value Reference Range Comments OSMOLALITY URINE (BEAKER) (test arcs=734) 313 mOsm/kg 40-1400 EOSINOPHIL SMEAR, [id number] 10:10:00 Test Item Value Reference Range Comments EOSINOPHIL SMEAR, URINE (BEAKER) Rare EOS=less than 5% WBCs No EOS seen (test jrbe=5655) seen are EOS CREATININE, RANDOM [id number] 08:12:00 Test Item Value Reference Range Comments CREATININE URINE (BEAKER) (test dixu=298) 136.1 mg/dL Reference Range: No NormalsPROTEIN, RANDOM [id number] 08:12:00 Test Item Value Reference Range Comments PROTEIN, URINE (BEAKER) (test live=6637) 157 mg/dL 0-14 SODIUM, RANDOM [id number] 08:12:00 Test Item Value Reference Range Comments SODIUM URINE (BEAKER) (test rklo=726) 53 meq/L Reference Range: No NormalsURINALYSIS W/ [id number] 08:12:00 Test Item Value Reference Range Comments COLOR (BEAKER) (test ktbf=723) Light Yellow CLARITY (BEAKER) (test fzxx=699) Hazy SPECIFIC GRAVITY UA (BEAKER) (test xkfu=357) 1.005 1.001-1.035 PH UA (BEAKER) (test lhja=585) 5.0 5.0-8.0 PROTEIN UA (BEAKER) (test azqn=765) Negative Negative GLUCOSE UA (BEAKER) (test fxnc=568) 70 mg/dL Negative KETONES UA (BEAKER) (test ejzl=434) Negative Negative BILIRUBIN UA (BEAKER) (test bbxq=840) Negative Negative BLOOD UA (BEAKER) (test mpfq=362) Large Negative NITRITE UA (BEAKER) (test hsdq=899) Negative Negative LEUKOCYTE ESTERASE UA (BEAKER) (test eqev=722) Trace Negative UROBILINOGEN UA (BEAKER) (test nbli=059) 0.2 mg/dL 0.2-1.0 RBC UA (BEAKER) (test ewaf=276) > /HPF WBC UA (BEAKER) (test dqme=544) 117 /HPF HYALINE CASTS (BEAKER) (test trgr=142) 32 /LPF YEAST (BEAKER) (test yoac=6476) Many SOURCE(BEAKER) (test liaa=5725) BASIC METABOLIC [id number] 04:45:00 Test Item Value Reference Range Comments SODIUM (BEAKER) (test 133 meq/L 136-145 gavv=448) POTASSIUM (BEAKER) (test 5.0 meq/L 3.5-5.1 tpyv=324) CHLORIDE (BEAKER) (test 99 meq/L 98-107 ehxx=992) CO2 (BEAKER) (test 23 meq/L 22-29 hbqt=602) BLOOD UREA NITROGEN 44 mg/dL 7-21 (BEAKER) (test arww=785) CREATININE (BEAKER) (test 2.91 mg/dL 0.57-1.25 pidd=890) GLUCOSE RANDOM (BEAKER) 98 mg/dL 70-105 (test dtpo=297) CALCIUM (BEAKER) (test 8.3 mg/dL 8.4-10.2 oijf=539) EGFR (BEAKER) (test mL/min/1.73 sq m INSUFFICIENT CLINICAL DATA jbsi=4892) TO CALCULATE ESTIMATED GFR. PROTHROMBIN [id number] 04:30:00 Test Item Value Reference Range Comments PROTIME (BEAKER) (test ofkw=920) 21.7 seconds 11.7-14.7 INR (BEAKER) (test zehi=620) 1.9 <=5.9 RECOMMENDED COUMADIN/WARFARIN INR THERAPY RANGESSTANDARD DOSE: 2.0 - 3.0 Includes: PROPHYLAXIS forvenous thrombosis, systemic embolization; TREATMENT for venous thrombosis and/or pulmonary embolus.HIGH RISK: Target INR is 2.5-3.5 for patients with mechanical heart valves.[id number] 04:30:00 Test Item Value Reference Range Comments PARTIAL THROMBOPLASTIN TIME (BEAKER) (test 35.9 seconds 22.5-36.0 urca=791) [id number] 04:30:00 Test Item Value Reference Range Comments FIBRINOGEN LEVEL (BEAKER) (test znlp=680) 216 mg/dl 225-434 CBC W/PLT COUNT & AUTO [id number] 04:29:00 Test Item Value Reference Range Comments WHITE BLOOD CELL COUNT (BEAKER) (test jsuv=937) 4.9 K/ L 4.0-10.0 RED BLOOD CELL COUNT (BEAKER) (test wsik=793) 3.05 M/ L 4.20-5.80 HEMOGLOBIN (BEAKER) (test ravo=743) 10.0 GM/DL 13.0-16.8 HEMATOCRIT (BEAKER) (test nctx=752) 30.8 % 40.0-50.0 MEAN CORPUSCULAR VOLUME (BEAKER) (test ddvh=823) 101.0 fL 82.0-98.0 MEAN CORPUSCULAR HEMOGLOBIN (BEAKER) (test 32.7 pg 27.0-33.0 miug=920) MEAN CORPUSCULAR HEMOGLOBIN CONC (BEAKER) (test 32.4 GM/DL 32.0-36.0 dimz=904) RED CELL DISTRIBUTION WIDTH (BEAKER) (test 14.3 % 10.3-14.2 rzxp=941) PLATELET COUNT (BEAKER) (test rsyf=822) 13 K/CU MM 150-430 MEAN PLATELET VOLUME (BEAKER) (test dspm=947) 11.2 fL 6.5-10.5 NUCLEATED RED BLOOD CELLS (BEAKER) (test 0 /100 WBC 0-0 letl=670) NEUTROPHILS RELATIVE PERCENT (BEAKER) (test 75 % lldq=805) LYMPHOCYTES RELATIVE PERCENT (BEAKER) (test 8 % ubzt=257) MONOCYTES RELATIVE PERCENT (BEAKER) (test 14 % weon=842) EOSINOPHILS RELATIVE PERCENT (BEAKER) (test 3 % ygif=584) BASOPHILS RELATIVE PERCENT (BEAKER) (test 0 % kxpq=544) NEUTROPHILS ABSOLUTE COUNT (BEAKER) (test 3.66 K/ L 1.80-8.00 keue=143) LYMPHOCYTES ABSOLUTE COUNT (BEAKER) (test 0.41 K/ L 1.48-4.50 kqfb=323) MONOCYTES ABSOLUTE COUNT (BEAKER) (test lgue=516) 0.70 K/ L 0.00-1.30 EOSINOPHILS ABSOLUTE COUNT (BEAKER) (test 0.13 K/ L 0.00-0.50 vpgq=595) BASOPHILS ABSOLUTE COUNT (BEAKER) (test gvxb=879) 0.01 K/ L 0.00-0.20 0.00HEPATITIS A ANTIBODY, [id number] 01:44:00 Test Item Value Reference Range Comments HEPATITIS A IGG ANTIBODY (BEAKER) (test obub=5636) Reactive Nonreactive HEPATITIS B SURFACE [id number] 01:41:00 Test Item Value Reference Range Comments HEPATITIS B SURFACE ANTIGEN (2) (BEAKER) (test Nonreactive Nonreactive cvfy=3545) HEPATITIS B SURFACE [id number] 01:41:00 Test Item Value Reference Range Comments HEPATITIS B SURFACE ANTIBODY (BEAKER) (test 205.5 mIU/mL <8.0 lcuy=967) HEPATITIS C [id number] 01:41:00 Test Item Value Reference Range Comments HEPATITIS C ANTIBODY (BEAKER) (test ehcs=232) Nonreactive Nonreactive HIV-1 ANTIGEN WITH HIV-1/2 [id number] 01:41:00 Test Item Value Reference Range Comments HIV-1 ANTIGEN WITH HIV 1\T\2 ANTIBODY (2) Nonreactive Nonreactive (BEAKER) (test hfjz=5763) POCT-GLUCOSE [id number] 22:22:00 Test Item Value Reference Range Comments POC-GLUCOSE METER (BEAKER) 106 mg/dL 70-[address] [facility] [address] (test hyml=9784) [place] [address] CBC W/PLT COUNT & AUTO [id number] 18:31:00 Test Item Value Reference Range Comments WHITE BLOOD CELL COUNT (BEAKER) (test zkli=516) 5.4 K/ L 4.0-10.0 RED BLOOD CELL COUNT (BEAKER) (test kfjn=613) 3.16 M/ L 4.20-5.80 HEMOGLOBIN (BEAKER) (test zklx=818) 10.3 GM/DL 13.0-16.8 HEMATOCRIT (BEAKER) (test pwgu=291) 32.1 % 40.0-50.0 MEAN CORPUSCULAR VOLUME (BEAKER) (test ptno=859) 102.0 fL 82.0-98.0 MEAN CORPUSCULAR HEMOGLOBIN (BEAKER) (test 32.5 pg 27.0-33.0 fwut=737) MEAN CORPUSCULAR HEMOGLOBIN CONC (BEAKER) (test 32.0 GM/DL 32.0-36.0 ouwm=105) RED CELL DISTRIBUTION WIDTH (BEAKER) (test 14.2 % 10.3-14.2 kseu=741) PLATELET COUNT (BEAKER) (test gbyp=433) 26 K/CU MM 150-430 MEAN PLATELET VOLUME (BEAKER) (test glfo=606) 8.7 fL 6.5-10.5 NUCLEATED RED BLOOD CELLS (BEAKER) (test 0 /100 WBC 0-0 mbem=309) NEUTROPHILS RELATIVE PERCENT (BEAKER) (test 81 % aade=118) LYMPHOCYTES RELATIVE PERCENT (BEAKER) (test 5 % dmbo=030) MONOCYTES RELATIVE PERCENT (BEAKER) (test 11 % gwoi=962) EOSINOPHILS RELATIVE PERCENT (BEAKER) (test 3 % pixk=503) BASOPHILS RELATIVE PERCENT (BEAKER) (test 0 % anxp=810) NEUTROPHILS ABSOLUTE COUNT (BEAKER) (test 4.37 K/ L 1.80-8.00 neaj=667) LYMPHOCYTES ABSOLUTE COUNT (BEAKER) (test 0.29 K/ L 1.48-4.50 jebe=276) MONOCYTES ABSOLUTE COUNT (BEAKER) (test pkzo=178) 0.60 K/ L 0.00-1.30 EOSINOPHILS ABSOLUTE COUNT (BEAKER) (test 0.15 K/ L 0.00-0.50 bgvh=131) BASOPHILS ABSOLUTE COUNT (BEAKER) (test fard=943) 0.01 K/ L 0.00-0.20 0.00POCT-GLUCOSE [id number] 18:27:00 Test Item Value Reference Range Comments POC-GLUCOSE METER (BEAKER) 112 mg/dL 70-[address] [facility] [address] (test bqwn=6935) [facility] [id number] HEPATIC FUNCTION [id number] 16:29:00 Test Item Value Reference Range Comments TOTAL PROTEIN (BEAKER) (test gvca=373) 7.7 gm/dL 6.0-8.3 ALBUMIN (BEAKER) (test kbdp=9622) 3.2 g/dL 3.5-5.0 BILIRUBIN TOTAL (BEAKER) (test dzxt=043) 1.0 mg/dL 0.2-1.2 BILIRUBIN DIRECT (BEAKER) (test wdrp=760) 0.7 mg/dL 0.1-0.5 ALKALINE PHOSPHATASE (BEAKER) (test ceyw=460) 148 U/L 40-150 AST (SGOT) (BEAKER) (test abqv=970) 26 U/L 5-34 ALT (SGPT) (BEAKER) (test aeut=655) 12 U/L 6-55 CBC (HEMOGRAM ONLY)2016-09-07 15:34:00 Test Item Value Reference Range Comments WHITE BLOOD CELL COUNT (BEAKER) (test izat=943) 4.3 K/ L 4.0-10.0 RED BLOOD CELL COUNT (BEAKER) (test zzlo=244) 3.26 M/ L 4.20-5.80 HEMOGLOBIN (BEAKER) (test ojlv=532) 10.5 GM/DL 13.0-16.8 HEMATOCRIT (BEAKER) (test ikkw=424) 33.0 % 40.0-50.0 MEAN CORPUSCULAR VOLUME (BEAKER) (test shyu=891) 102.0 fL 82.0-98.0 MEAN CORPUSCULAR HEMOGLOBIN (BEAKER) (test 32.3 pg 27.0-33.0 waye=330) MEAN CORPUSCULAR HEMOGLOBIN CONC (BEAKER) (test 31.8 GM/DL 32.0-36.0 mdzq=191) RED CELL DISTRIBUTION WIDTH (BEAKER) (test 13.7 % 10.3-14.2 zmjg=640) PLATELET COUNT (BEAKER) (test hema=343) 9 K/CU MM 150-430 MEAN PLATELET VOLUME (BEAKER) (test hqvz=427) 12.6 fL 6.5-10.5 NUCLEATED RED BLOOD CELLS (BEAKER) (test 0 /100 WBC 0-0 vutk=194) [id number] 14:58:00 Test Item Value Reference Range Comments PROSTATE SPECIFIC ANTIGEN (BEAKER) (test njym=593) 0.2 ng/mL 0.0-4.0 CHLORIDE, RANDOM [id number] 14:10:00 Test Item Value Reference Range Comments CHLORIDE URINE (BEAKER) (test uzuj=600) 27 meq/L Reference Range: No NormalsCREATININE, RANDOM [id number] 14:10:00 Test Item Value Reference Range Comments CREATININE URINE (BEAKER) (test ompl=905) 192.5 mg/dL Reference Range: No NormalsPROTEIN, RANDOM [id number] 14:10:00 Test Item Value Reference Range Comments PROTEIN, URINE (BEAKER) (test ynoq=5161) 72 mg/dL 0-14 SODIUM, RANDOM [id number] 14:10:00 Test Item Value Reference Range Comments SODIUM URINE (BEAKER) (test cinv=610) 28 meq/L Reference Range: No NormalsOSMOLALITY, [id number] 13:51:00 Test Item Value Reference Range Comments OSMOLALITY URINE (BEAKER) (test bgdf=588) 307 mOsm/kg 40-1400 [id number] 05:52:00 Test Item Value Reference Range Comments FERRITIN (BEAKER) (test fgii=072) 159 ng/mL 5-275 Effective 05/09/2014: Reference Range ChangeNew: Male 5-275 Previous: Male 22-322 Female 5-275 Female 10-291VITAMIN B12 AND [id number] 05:52:00 Test Item Value Reference Range Comments VITAMIN B12 (BEAKER) (test nkku=153) 1060 pg/mL 213-816 FOLATE (BEAKER) (test luhq=107) 6.4 ng/mL >=7.0 Effective 05/09/2014: Folate Reference Range ChangeNew: >=7.0 Previous: & gt;=5.4IRON, TIBC, % SAT. (WITHOUT FERRITIN)2016-09-07 05:28:00 Test Item Value Reference Range Comments IRON (BEAKER) (test blnm=799) 48 ug/dL 40-160 TOTAL IRON BINDING CAPACITY (BEAKER) (test 340 ug/dL 250-450 kadc=242) IRON % SATURATION (2) (BEAKER) (test yodj=7298) 14 % 20-55 BASIC METABOLIC [id number] 04:51:00 Test Item Value Reference Range Comments SODIUM (BEAKER) (test 135 meq/L 136-145 ziwa=250) POTASSIUM (BEAKER) (test 5.3 meq/L 3.5-5.1 xsuo=513) CHLORIDE (BEAKER) (test 101 meq/L 98-107 ygne=456) CO2 (BEAKER) (test 23 meq/L 22-29 lopu=383) BLOOD UREA NITROGEN 38 mg/dL 7-21 (BEAKER) (test raun=016) CREATININE (BEAKER) (test 2.76 mg/dL 0.57-1.25 juox=841) GLUCOSE RANDOM (BEAKER) 109 mg/dL 70-105 (test axql=029) CALCIUM (BEAKER) (test 8.2 mg/dL 8.4-10.2 mhbj=961) EGFR (BEAKER) (test mL/min/1.73 sq m INSUFFICIENT CLINICAL DATA movx=2292) TO CALCULATE ESTIMATED GFR. CBC W/PLT COUNT & AUTO [id number] 04:28:00 Test Item Value Reference Range Comments WHITE BLOOD CELL COUNT (BEAKER) (test sdct=408) 4.6 K/ L 4.0-10.0 RED BLOOD CELL COUNT (BEAKER) (test qkxp=192) 3.08 M/ L 4.20-5.80 HEMOGLOBIN (BEAKER) (test sqbm=504) 10.0 GM/DL 13.0-16.8 HEMATOCRIT (BEAKER) (test ftdn=342) 31.4 % 40.0-50.0 MEAN CORPUSCULAR VOLUME (BEAKER) (test czub=054) 102.0 fL 82.0-98.0 MEAN CORPUSCULAR HEMOGLOBIN (BEAKER) (test 32.5 pg 27.0-33.0 fvcw=187) MEAN CORPUSCULAR HEMOGLOBIN CONC (BEAKER) (test 31.9 GM/DL 32.0-36.0 givc=259) RED CELL DISTRIBUTION WIDTH (BEAKER) (test 13.6 % 10.3-14.2 hftt=640) PLATELET COUNT (BEAKER) (test sxmk=060) 12 K/CU MM 150-430 MEAN PLATELET VOLUME (BEAKER) (test trxt=381) 11.8 fL 6.5-10.5 NUCLEATED RED BLOOD CELLS (BEAKER) (test 0 /100 WBC 0-0 metu=321) NEUTROPHILS RELATIVE PERCENT (BEAKER) (test 70 % rzjc=137) LYMPHOCYTES RELATIVE PERCENT (BEAKER) (test 11 % qzhe=349) MONOCYTES RELATIVE PERCENT (BEAKER) (test 15 % yhzk=582) EOSINOPHILS RELATIVE PERCENT (BEAKER) (test 4 % okcw=095) BASOPHILS RELATIVE PERCENT (BEAKER) (test 0 % farv=438) NEUTROPHILS ABSOLUTE COUNT (BEAKER) (test 3.19 K/ L 1.80-8.00 sfor=650) LYMPHOCYTES ABSOLUTE COUNT (BEAKER) (test 0.49 K/ L 1.48-4.50 yznl=846) MONOCYTES ABSOLUTE COUNT (BEAKER) (test pkib=414) 0.70 K/ L 0.00-1.30 EOSINOPHILS ABSOLUTE COUNT (BEAKER) (test 0.17 K/ L 0.00-0.50 zgoy=237) BASOPHILS ABSOLUTE COUNT (BEAKER) (test wbje=227) 0.00 K/ L 0.00-0.20 0.00PROTHROMBIN TIME/[id number] 04:16:00 Test Item Value Reference Range Comments PROTIME (BEAKER) (test spsz=464) 20.8 seconds 11.7-14.7 INR (BEAKER) (test kvdj=820) 1.8 <=5.9 RECOMMENDED COUMADIN/WARFARIN INR THERAPY RANGESSTANDARD DOSE: 2.0 - 3.0 Includes: PROPHYLAXIS forvenous thrombosis, systemic embolization; TREATMENT for venous thrombosis and/or pulmonary embolus.HIGH RISK: Target INR is 2.5-3.5 for patients with mechanical heart valves.[id number] 04:16:00 Test Item Value Reference Range Comments PARTIAL THROMBOPLASTIN TIME (BEAKER) (test 39.2 seconds 22.5-36.0 zsxy=824) VITAMIN B12 AND [id number] 16:41:00 Test Item Value Reference Range Comments VITAMIN B12 (BEAKER) (test tbiy=893) 860 pg/mL 213-816 FOLATE (BEAKER) (test cszh=135) 8.0 ng/mL >=7.0 Effective 05/09/2014: Folate Reference Range ChangeNew: >=7.0 Previous: & gt;=[id number] 15:47:00 Test Item Value Reference Range Comments FERRITIN (BEAKER) (test sdvj=337) 148 ng/mL 5-275 Effective 05/09/2014: Reference Range ChangeNew: Male 5-275 Previous: Male 22-322 Female 5-275 Female 10-291HEPATITIS B [id number] 14:54:00 Test Item Value Reference Range Comments HEPATITIS B CORE TOTAL ANTIBODY (BEAKER) (test Nonreactive Nonreactive hbcg=385) HEPATITIS B SURFACE ANTIBODY (BEAKER) (test < mIU/mL <8.0 gvtz=577) HEPATITIS B SURFACE ANTIGEN (2) (BEAKER) (test Nonreactive Nonreactive qkjg=4906) HEPATITIS C [id number] 14:14:00 Test Item Value Reference Range Comments HEPATITIS C ANTIBODY (BEAKER) (test yuph=641) Nonreactive Nonreactive HIV-1 ANTIGEN WITH HIV-1/2 [id number] 13:54:00 Test Item Value Reference Range Comments HIV-1 ANTIGEN WITH HIV 1\T\2 ANTIBODY (2) Nonreactive Nonreactive (BEAKER) (test zrzj=7554) [id number] 13:39:00 Test Item Value Reference Range Comments D-DIMER QUANTITATIVE (BEAKER) (test bvai=825) 8.70 MG/L FEU <0.50 Intended Use: The [...] exclusion of thrombosis is within 95-100% range.URIC [id number] 13:31:00 Test Item Value Reference Range Comments URIC ACID (BEAKER) (test cyct=071) 10.2 mg/dL 2.6-7.2 LACTATE DEHYDROGENASE (LDH)2016-09-06 13:31:00 Test Item Value Reference Range Comments LACTATE DEHYDROGENASE (BEAKER) (test qkgz=782) 199 U/L 125-220 [id number] 13:30:00 Test Item Value Reference Range Comments FIBRINOGEN LEVEL (BEAKER) (test edou=236) 281 mg/dl 225-434 RAPID DRUG SCREEN, [id number] 12:15:00 Test Item Value Reference Range Comments BARBITURATE URINE (BEAKER) (test uile=134) Negative Negative BENZODIAZEPINE SCREEN URINE (BEAKER) (test Negative Negative nxao=551) COCAINE (METAB.) SCREEN (BEAKER) (test myli=3976) Negative Negative METHADONE SCREEN (BEAKER) (test rmaf=1043) Negative Negative OPIATE SCREEN URINE (BEAKER) (test anso=307) Positive Negative CANNABINOID SCREEN URINE (BEAKER) (test jacq=040) Negative Negative AMPH/METHAMPH SCREEN (BEAKER) (test kemg=3314) Negative Negative PHENCYCLIDINE SCREEN URINE (BEAKER) (test fmuo=999) Negative Negative OXYCODONE SCREEN URINE (BEAKER) (test zras=1724) Negative Negative DRUG CUTOFF CONC.Cocaine 300 ng/mL Cannabinoid 50 ng/mL Benzodiazepine 200 ng/mLBarbiturate 200 ng/ mLPhencyclidine 25 ng/mLOpiate 300 ng/mLMethadone 300 ng/mLAmphetamine/ 1000 ng/mL MethamphetamineOxycodone 300 ng/mLURINALYSIS W/ [id number] 11:30:00 Test Item Value Reference Range Comments COLOR (BEAKER) (test tbgb=032) Yellow CLARITY (BEAKER) (test nxxe=509) Hazy SPECIFIC GRAVITY UA (BEAKER) (test mnop=981) 1.011 1.001-1.035 PH UA (BEAKER) (test hioc=792) 5.0 5.0-8.0 PROTEIN UA (BEAKER) (test fdln=722) 70 mg/dL Negative GLUCOSE UA (BEAKER) (test mvax=702) Negative Negative KETONES UA (BEAKER) (test ebel=727) Negative Negative BILIRUBIN UA (BEAKER) (test tmyp=133) Negative Negative BLOOD UA (BEAKER) (test fpwd=406) Negative Negative NITRITE UA (BEAKER) (test xxnp=809) Negative Negative LEUKOCYTE ESTERASE UA (BEAKER) (test wbbs=882) Negative Negative UROBILINOGEN UA (BEAKER) (test qyfm=938) 2.0 mg/dL 0.2-1.0 RBC UA (BEAKER) (test lqtd=033) < /HPF WBC UA (BEAKER) (test iqql=851) 2 /HPF BACTERIA (BEAKER) (test suwg=289) Occasional MUCUS (BEAKER) (test bugr=3645) Rare SQUAMOUS EPITHELIAL (BEAKER) (test tnyv=074) 1 /HPF HYALINE CASTS (BEAKER) (test ewzb=475) 135 /LPF CASTS (BEAKER) (test lbkc=8278) 8 /LPF SOURCE(BEAKER) (test gadg=9019) Urine, Voided PLATELET [id number] 09:02:00 Test Item Value Reference Range Comments PLATELET COUNT (BEAKER) (test furg=436) 11 K/CU MM 150-430 POCT-GLUCOSE [id number] 08:00:00 Test Item Value Reference Range Comments POC-GLUCOSE METER (BEAKER) 92 mg/dL 70-110 TESTED AT [address] (test gmss=9532) [facility] [address] CBC W/PLT COUNT & AUTO [id number] 07:24:00 Test Item Value Reference Range Comments WHITE BLOOD CELL COUNT (BEAKER) (test vnof=283) 5.2 K/ L 4.0-10.0 RED BLOOD CELL COUNT (BEAKER) (test unmj=328) 3.48 M/ L 4.20-5.80 HEMOGLOBIN (BEAKER) (test ykwa=026) 10.8 GM/DL 13.0-16.8 HEMATOCRIT (BEAKER) (test yddl=457) 34.6 % 40.0-50.0 MEAN CORPUSCULAR VOLUME (BEAKER) (test emkj=471) 99.4 fL 82.0-98.0 MEAN CORPUSCULAR HEMOGLOBIN (BEAKER) (test 30.9 pg 27.0-33.0 ekaf=129) MEAN CORPUSCULAR HEMOGLOBIN CONC (BEAKER) (test 31.1 GM/DL 32.0-36.0 ojns=591) RED CELL DISTRIBUTION WIDTH (BEAKER) (test 14.3 % 10.3-14.2 udpx=815) PLATELET COUNT (BEAKER) (test ikbq=479) 9 K/CU MM 150-430 MEAN PLATELET VOLUME (BEAKER) (test ygme=293) 10.7 fL 6.5-10.5 NUCLEATED RED BLOOD CELLS (BEAKER) (test 0 /100 WBC 0-0 ahmf=284) NEUTROPHILS RELATIVE PERCENT (BEAKER) (test 76 % kgvh=569) LYMPHOCYTES RELATIVE PERCENT (BEAKER) (test 8 % gzwb=866) MONOCYTES RELATIVE PERCENT (BEAKER) (test 13 % gydv=788) EOSINOPHILS RELATIVE PERCENT (BEAKER) (test 3 % pyhv=138) BASOPHILS RELATIVE PERCENT (BEAKER) (test 0 % zbve=635) NEUTROPHILS ABSOLUTE COUNT (BEAKER) (test 3.95 K/ L 1.80-8.00 dekk=785) LYMPHOCYTES ABSOLUTE COUNT (BEAKER) (test 0.42 K/ L 1.48-4.50 rlde=305) MONOCYTES ABSOLUTE COUNT (BEAKER) (test vlcq=686) 0.67 K/ L 0.00-1.30 EOSINOPHILS ABSOLUTE COUNT (BEAKER) (test 0.14 K/ L 0.00-0.50 egrb=135) BASOPHILS ABSOLUTE COUNT (BEAKER) (test cxcj=026) 0.00 K/ L 0.00-0.20 0.00BASIC METABOLIC [id number] 06:16:00 Test Item Value Reference Range Comments SODIUM (BEAKER) (test 134 meq/L 136-145 rgxg=040) POTASSIUM (BEAKER) (test 5.2 meq/L 3.5-5.1 gqoa=366) CHLORIDE (BEAKER) (test 100 meq/L 98-107 ofge=604) CO2 (BEAKER) (test 24 meq/L 22-29 ydvm=987) BLOOD UREA NITROGEN 31 mg/dL 7-21 (BEAKER) (test qgjl=999) CREATININE (BEAKER) (test 1.54 mg/dL 0.57-1.25 sjsk=592) GLUCOSE RANDOM (BEAKER) 99 mg/dL 70-105 (test xiic=194) CALCIUM (BEAKER) (test 8.7 mg/dL 8.4-10.2 mplj=273) EGFR (BEAKER) (test mL/min/1.73 sq m INSUFFICIENT CLINICAL DATA psws=3202) TO CALCULATE ESTIMATED GFR. CREATINE KINASE (CK), TOTAL AND [id number] 06:14:00 Test Item Value Reference Range Comments CREATINE KINASE TOTAL (BEAKER) (test sjlk=174) 67 U/L 29-200 CREATINE KINASE-MB (BEAKER) (test tykv=911) 1.9 ng/mL 0.0-6.6 CREATINE KINASE-MB INDEX (BEAKER) (test ffev=889) 2.8 % Effective 05/09/2014: CK-MB Reference Range ChangeNew: 0.0-6.6 Previous: 0.0- 4.9CK-MB Reference Range:<6.7 Normal6.7-10.0 Borderline>10.0 AbnormalTROPONIN [id number] 06:14:00 Test Item Value Reference Range Comments TROPONIN I (BEAKER) (test laox=697) 0.02 ng/mL 0.00-0.03 Effective 05/09/2014: Reference Range [...] renalfailure, acidosis, acute neurological disease, and persistent tachyarrhythmia.[id number] 05:40:00 Test Item Value Reference Range Comments PARTIAL THROMBOPLASTIN TIME (BEAKER) (test 35.1 seconds 22.5-36.0 mjvm=195) PROTHROMBIN TIME/[id number] 05:39:00 Test Item Value Reference Range Comments PROTIME (BEAKER) (test lwyj=455) 18.1 seconds 11.7-14.7 INR (BEAKER) (test pdso=292) 1.5 <=5.9 RECOMMENDED COUMADIN/WARFARIN INR THERAPY RANGESSTANDARD DOSE: 2.0 - 3.0 Includes: PROPHYLAXIS forvenous thrombosis, systemic embolization; TREATMENT for venous thrombosis and/or pulmonary embolus.HIGH RISK: Target INR is 2.5-3.5 for patients with mechanical heart valves.T4, [id number] 03:16:00 Test Item Value Reference Range Comments FREE T4 (BEAKER) (test ztbi=880) 1.45 ng/dL 0.70-1.48 TSH/FREE T4 IF [id number] 02:21:00 Test Item Value Reference Range Comments THYROID STIMULATING HORMONE (BEAKER) (test 6.77 uIU/mL 0.35-4.94 npds=197) CREATINE KINASE (CK), TOTAL AND [id number] 01:14:00 Test Item Value Reference Range Comments CREATINE KINASE TOTAL (BEAKER) (test rmqp=468) 76 U/L 29-200 CREATINE KINASE-MB (BEAKER) (test hmlk=708) 1.7 ng/mL 0.0-6.6 CREATINE KINASE-MB INDEX (BEAKER) (test tffu=110) 2.2 % Effective 05/09/2014: CK-MB Reference Range ChangeNew: 0.0-6.6 Previous: 0.0- 4.9CK-MB Reference Range:<6.7 Normal6.7-10.0 Borderline>10.0 AbnormalTROPONIN [id number] 01:14:00 Test Item Value Reference Range Comments TROPONIN I (BEAKER) (test oppk=943) 0.02 ng/mL 0.00-0.03 Effective 05/09/2014: Reference Range [...] acidosis, acute neurological disease, and persistent tachyarrhythmia.LIPID [id number] 01:08 :00 Test Item Value Reference Range Comments TRIGLYCERIDES (BEAKER) (test okdg=396) 82 mg/dL CHOLESTEROL (BEAKER) (test cxct=719) 145 mg/dL HDL CHOLESTEROL (BEAKER) (test gdog=400) 49 mg/dL LDL CHOLESTEROL CALCULATED (BEAKER) (test 80 mg/dL ycxr=965) Triglyceride Reference Range: Low Risk <150 Borderline 150- 199 High Risk 200-499 Very High Risk >=500Cholesterol Reference Range: Low Risk <200 Borderline 200-239 High Risk > 240HDL Cholesterol Reference Range: Low Risk >=60 High Risk <40LDL Cholesterol Reference Range: Optimal <100 Near Optimal 100-129 Borderline 130-159 High 160-189 Very High >=190 Specimen slightly ictericDIGOXIN [id number] 18:22:00 Test Item Value Reference Range Comments DIGOXIN LEVEL (BEAKER) (test ajlt=775) 0.8 ng/mL 0.8-2.0 CREATINE KINASE (CK), TOTAL AND [id number] 17:51:00 Test Item Value Reference Range Comments CREATINE KINASE TOTAL (BEAKER) (test amam=534) 78 U/L 29-200 CREATINE KINASE-MB (BEAKER) (test tkbj=110) 1.9 ng/mL 0.0-6.6 CREATINE KINASE-MB INDEX (BEAKER) (test vgcn=822) 2.4 % Effective 05/09/2014: CK-MB Reference Range ChangeNew: 0.0-6.6 Previous: 0.0- 4.9CK-MB Reference Range:<6.7 Normal6.7-10.0 Borderline>10.0 AbnormalTROPONIN [id number] 17:51:00 Test Item Value Reference Range Comments TROPONIN I (BEAKER) (test unqe=017) 0.03 ng/mL 0.00-0.03 Effective 05/09/2014: Reference Range [...] NATRIURETIC PEPTIDE (BEAKER) (test 334 pg/mL 0-100 tzde=202) BASIC METABOLIC [id number] 17:49:00 Test Item Value Reference Range Comments SODIUM (BEAKER) (test 136 meq/L 136-145 sjhq=405) POTASSIUM (BEAKER) (test 5.4 meq/L 3.5-5.1 kxgx=023) CHLORIDE (BEAKER) (test 101 meq/L 98-107 ghsx=586) CO2 (BEAKER) (test 27 meq/L 22-29 wfrp=540) BLOOD UREA NITROGEN 26 mg/dL 7-21 (BEAKER) (test xhri=566) CREATININE (BEAKER) (test 1.10 mg/dL 0.57-1.25 hxnb=544) GLUCOSE RANDOM (BEAKER) 105 mg/dL 70-105 (test gicw=301) CALCIUM (BEAKER) (test 8.9 mg/dL 8.4-10.2 uhqr=953) EGFR (BEAKER) (test mL/min/1.73 sq m INSUFFICIENT CLINICAL DATA hsvu=5705) TO CALCULATE ESTIMATED GFR. [id number] 17:45:00 Test Item Value Reference Range Comments LIPASE (BEAKER) (test ruuo=805) 43 U/L 8-78 ALT (SGPT)2016-09-05 17:45:00 Test Item Value Reference Range Comments ALT (SGPT) (BEAKER) (test baqn=248) 14 U/L 6-55 AST (SGOT)2016-09-05 17:45:00 Test Item Value Reference Range Comments AST (SGOT) (BEAKER) (test dewp=899) 33 U/L 5-34 BILIRUBIN, ADULT [id number] 17:45:00 Test Item Value Reference Range Comments BILIRUBIN TOTAL (BEAKER) (test uegi=365) 2.0 mg/dL 0.2-1.2 PROTHROMBIN TIME/[id number] 17:38:00 Test Item Value Reference Range Comments PROTIME (BEAKER) (test jpmx=697) 20.2 seconds 11.7-14.7 INR (BEAKER) (test elsp=535) 1.7 <=5.9 RECOMMENDED COUMADIN/WARFARIN INR THERAPY RANGESSTANDARD DOSE: 2.0 - 3.0 Includes: PROPHYLAXIS forvenous thrombosis, systemic embolization; TREATMENT for venous thrombosis and/or pulmonary embolus.HIGH RISK: Target INR is 2.5-3.5 for patients with mechanical heart valves.CBC W/PLT COUNT & AUTO [id number] 17:35:00 Test Item Value Reference Range Comments WHITE BLOOD CELL COUNT (BEAKER) (test bnfw=415) 5.9 K/ L 4.0-10.0 RED BLOOD CELL COUNT (BEAKER) (test alxg=920) 3.49 M/ L 4.20-5.80 HEMOGLOBIN (BEAKER) (test rioe=676) 11.2 GM/DL 13.0-16.8 HEMATOCRIT (BEAKER) (test adem=928) 34.4 % 40.0-50.0 MEAN CORPUSCULAR VOLUME (BEAKER) (test oobw=895) 98.8 fL 82.0-98.0 MEAN CORPUSCULAR HEMOGLOBIN (BEAKER) (test 32.2 pg 27.0-33.0 croy=395) MEAN CORPUSCULAR HEMOGLOBIN CONC (BEAKER) (test 32.6 GM/DL 32.0-36.0 etud=285) RED CELL DISTRIBUTION WIDTH (BEAKER) (test 13.7 % 10.3-14.2 fftv=475) PLATELET COUNT (BEAKER) (test oicb=581) 28 K/CU MM 150-430 MEAN PLATELET VOLUME (BEAKER) (test cdiz=519) 9.0 fL 6.5-10.5 NUCLEATED RED BLOOD CELLS (BEAKER) (test 0 /100 WBC 0-0 vkey=584) NEUTROPHILS RELATIVE PERCENT (BEAKER) (test 78 % nxvs=925) LYMPHOCYTES RELATIVE PERCENT (BEAKER) (test 8 % bulk=665) MONOCYTES RELATIVE PERCENT (BEAKER) (test 10 % spsx=288) EOSINOPHILS RELATIVE PERCENT (BEAKER) (test 4 % uxwz=027) BASOPHILS RELATIVE PERCENT (BEAKER) (test 0 % ybmj=480) NEUTROPHILS ABSOLUTE COUNT (BEAKER) (test 4.58 K/ L 1.80-8.00 uxwm=300) LYMPHOCYTES ABSOLUTE COUNT (BEAKER) (test 0.45 K/ L 1.48-4.50 hdhp=648) MONOCYTES ABSOLUTE COUNT (BEAKER) (test nzlf=595) 0.61 K/ L 0.00-1.30 EOSINOPHILS ABSOLUTE COUNT (BEAKER) (test 0.23 K/ L 0.00-0.50 bxdz=789) BASOPHILS ABSOLUTE COUNT (BEAKER) (test zmzo=156) 0.02 K/ L 0.00-0.20 0.00
[2017-11-02 11:59] LABS: Absolute Lymphocytes (CBC) 0.4 K/uL (0.7-4.9); Absolute Monocytes 0.7 K/uL (0.1-1.3); Absolute Neutrophil 3.2 K/uL (1.8-8.0); Basophils % 0.2 % (0-1.3); Eosinophils % 1.9 % (0-4.4); Hematocrit 30.5 % (39.6-49.0); Lymphocytes % 9.9 % (15.3-44.8); MCH 27.1 pg (27.0-35.0); MCV 87.4 fL (80-100); MPV 8.2 fL (7.6-11.3); Monocytes % 16.2 % (3.3-12.3); RBC Red Blood Cell Count 3.49 M/uL (4.33-5.43)
[2017-11-02 12:04] LABS: Protime INR 2.59
--- NOTE | 2017-11-02 12:53 | RAD REPORT ---
EXAM DESCRIPTION: RAD - Chest Single View - 11/02/2017 12:05 pm CLINICAL HISTORY: Shortness of breath COMPARISON: 10/28/2017 FINDINGS: Portable technique limits examination quality. Lungs are underinflated with vascular crowding. The heart is significantly enlarged in size. Single l ead pacer/defibrillator device is present. No displaced fractures.
[2017-11-02 12:56] LABS: Albumin 3.1 g/dL (3.2-5.5); Bilirubin Direct 0.5 mg/dL (0-0.2); Bilirubin Total 1.4 mg/dL (0.3-1.2); C-Reactive Protein 42.1 mg/L (<10.0); CKMB Creatine Kinase MB 6.1 ng/ml (0.3-4.0); Magnesium 2.7 mg/dL (1.8-2.5); Potassium 5.5 mEq/L (3.6-5.0); Protein, Total 8.3 g/dL (6.0-8.3)
--- NOTE | 2017-11-02 13:41 | EDPHYS ---
Physician Documentation [facility] Name: Gatito Gunn Age: 57 yrs Sex: Male : 1960 Arrival Date: 11/02/2017 Time: 11:29 Bed 3 Private MD: ED Physician Ezekiel Garza HPI: 11/02 12:48 This 57 yrs old Male presents to ER via EMS with complaints of Altered Mental enoch Status, Abdominal Swelling, Leg Pain, Leg Swelling. 12:48 The patient presents with confusion, decreased mental status. enoch Historical: - Allergies: 11:34 No Known Allergies; sg - PMHx: 11:34 liver failure; Renal Disease; sg - PSHx: 11:34 CABG; sg - Immunization history:: Adult Immunizations unknown. - Social history:: Smoking status: Patient/guardian denies using tobacco. ROS: 12:49 Constitutional: Negative for fever, chills, and weight loss, Eyes: Negative for injury, enoch pain, redness, and discharge, ENT: Negative for injury, pain, and discharge, Neck: Negative for injury, pain, and swelling, Cardiovascular: Negative for chest pain, palpitations, and edema, Back: Negative for injury and pain, : Negative for injury, bleeding, discharge, and swelling, Skin: Negative for injury, rash, and discoloration, Psych: Negative for depression, anxiety, suicide ideation, homicidal ideation, and hallucinations, Allergy/Immunology: Negative for hives, rash, and allergies, Endocrine: Negative for neck swelling, polydipsia, polyuria, polyphagia, and marked weight changes, Hematologic/Lymphatic: Negative for swollen nodes, abnormal bleeding, and unusual bruising. 12:49 Respiratory: Positive for cough, shortness of breath. 12:49 Abdomen/GI: Positive for abdominal pain, abdominal cramps, abdominal distension, of the right upper quadrant, left upper quadrant, right lower quadrant and left lower quadrant. 12:49 MS/extremity: Positive for pain, swelling, of the right leg and left leg. Exam: 12:49 Constitutional: This is a well developed, well nourished patient who is awake, alert, enoch and in no acute distress. Head/Face: Normocephalic, atraumatic. ENT: Nares patent. No nasal discharge, no septal abnormalities noted. Tympanic membranes are normal and external auditory canals are clear. Oropharynx with no redness, swelling, or masses, exudates, or evidence of obstruction, uvula midline. Mucous membranes moist. Neck: Trachea midline, no thyromegaly or masses palpated, and no cervical lymphadenopathy. Supple, full range of motion without nuchal rigidity, or vertebral point tenderness. No Meningismus. Chest/axilla: Normal chest wall appearance and motion. Nontender with no deformity. No lesions are appreciated. Back: No spinal tenderness. No costovertebral tenderness. Full range of motion. Male : Normal genitalia with no discharge or lesions. Skin: Warm, dry with normal turgor. Normal color with no rashes, no lesions, and no evidence of cellulitis. Psych: Awake, alert, with orientation to person, place and time. Behavior, mood, and affect are within normal limits. 12:49 Cardiovascular: Rate: normal, Rhythm: regular, Pulses: Pulses are 3+ in bilateral radial, brachial, femoral, popliteal, posterior tibial and and dorsalis pedis arteries.. Edema: 3+ edema to level of left midcalf and right midcalf, JVD: is noted bilaterally, to 2 cm. 12:49 Abdomen/GI: Inspection: distension, Bowel sounds: diminished, Palpation: mild abdominal tenderness, in all quadrants, Liver: no appreciated palpable abnormalities, Hernia: not appreciated. Vital Signs: 11:32 BP 124 / 78 LA Supine (/reg); Pulse 79 MON; Resp 23 S; Temp 98.0(TE); Pulse Ox 100% ; sg Weight 90.72 kg (R); Pain 10/10; 13:00 BP 112 / 70; Pulse 88 MON; Resp 26; Pulse Ox 98% on 40% Venturi mask; sg 15:37 BP 117 / 77; sv 15:39 Pulse 87 MON; Resp 27; Pulse Ox 98% on 40% Venturi mask; sg 15:40 BP 117 / 77; sg 16:00 BP 116 / 75; Pulse 82; Resp 27; Pulse Ox 97% on 40% Venturi mask; sv 16:30 BP 112 / 79; Pulse 82; Resp 23; Pulse Ox 97% on 40% Venturi mask; sv 13:00 A fib sg 15:39 A fib sg Procedures: 17:25 Intubation: Ventilated with 100% NRB prior to procedure. Intubated orally using # 3 enoch Berenice blade with 7.5 mm ETT. was successful on first attempt. Ventilated with Ambu bag. Cricoid pressure applied during procedure. Patient tolerated well. [facility]: 11:56 Patient medically screened. [facility] 12:51 Data reviewed: vital signs, nurses notes, lab test result(s), EKG, radiologic studies, [facility] CT scan, plain films. 11/02 11:35 Order name: Basic Metabolic Panel sv 11/02 11:35 Order name: BNP sv 11/02 11:35 Order name: CBC with Diff 11/02 11:35 Order name: Ckmb sv 11/02 11:35 Order name: CPK; Complete Time: 13: sv 11/02 11:35 Order name: LFT's; Complete Time: 13: sv 11/02 11:35 Order name: Magnesium; Complete Time: 13: sv 11/02 11:35 Order name: PT-INR; Complete Time: 12:44 sv 11/02 11:35 Order name: Ptt, Activated; Complete Time: 12:44 sv 11/02 11:35 Order name: Troponin (emerg Dept Use Only); Complete Time: 12:44 sv 11/02 11:35 Order name: Amylase, Serum; Complete Time: 13: sv 11/02 11:35 Order name: Blood Culture Adult (2) sv 11/02 11:35 Order name: C-Reactive Protein; Complete Time: 13:07 sv 11/02 11:35 Order name: Lactate; Complete Time: 12:44 sv 11/02 11:35 Order name: XRAY Chest (1 view); Complete Time: 13:07 11/02 11:35 Order name: Lipase; Complete Time: 13: sv 11/02 11:35 Order name: Procalcitonin; Complete Time: 13:28 sv 11/02 11:35 Order name: Sed Rate; Complete Time: 12:44 sv 11/02 11:35 Order name: AMMONIA; Complete Time: 12:44 sv 11/02 11:36 Order name: Basic Metabolic Panel; Complete Time: 13:07 EDMS 11/02 11:36 Order name: BNP B-Type Natriuretic Peptide; Complete Time: 12:44 EDMS 11/02 11:36 Order name: CBC with Automated Diff; Complete Time: 12:44 EDMS 11/02 11:36 Order name: CKMB Creatine Kinase MB; Complete Time: 13:07 EDMS 11/02 13:59 Order name: Urine Dipstick--Ancillary (enter results); Complete Time: 15:06 bd 11/02 15:08 Order name: CT Stone Protocol; Complete Time: 16:34 enoch 11/02 17:24 Order name: XRAY Chest (1 view) sv 11/02 11:35 Order name: EKG; Complete Time: 11:36 sv 11/02 11:35 Order name: Cardiac monitoring; Complete Time: 11:36 sv 11/02 11:35 Order name: EKG - Nurse/Tech; Complete Time: 12:53 sv 11/02 11:35 Order name: IV Saline Lock; Complete Time: 11:36 sv 11/02 11:35 Order name: Labs collected and sent; Complete Time: 11:36 sv 11/02 11:35 Order name: O2 Per Protocol; Complete Time: 11:36 sv 11/02 11:35 Order name: O2 Sat Monitoring; Complete Time: 11:36 sv 11/02 11:35 Order name: Urine Dipstick-Ancillary (obtain specimen); Complete Time: 13:52 sv 11/02 11:35 Order name: Accucheck; Complete Time: 12:53 sv 11/02 11:35 Order name: IV Saline Lock - Large Bore; Complete Time: 12:53 sv 11/02 12:48 Order name: Wilkes; Complete Time: 13:44 [facility] Administered Medications: 11:57 CANCELLED (Duplicate Order): NS 0.9% (30 ml/kg) 30 ml/kg IV at bolus once; Sepsis [facility] Protocol 13:54 Drug: Lasix 40 mg Route: IVP; Site: right upper arm; sg 15:00 Drug: Kayexalate 30 grams Route: PO; sg 15:30 Drug: Rocephin - (cefTRIAXone) 1 grams Route: IVPB; Infused Over: 30 mins; Site: right sg upper arm; 16:09 Follow up: Response: No adverse reaction; IV Status: Completed infusion sg 17:10 Drug: fentaNYL (PF) 25 mcg Route: IVP; Site: right upper arm; sv 17:20 Follow up: Response: No adverse reaction sv 17:20 Drug: Versed 2 mg Route: IVP; Site: right upper arm; sv 17:30 Follow up: Response: No adverse reaction sv 17:21 Drug: Versed 2 mg Route: IVP; Site: right upper arm; sv 17:30 Follow up: Response: No adverse reaction sv 17:22 Drug: Etomidate 20 mg Route: IVP; Site: right upper arm; sv 17:30 Follow up: Response: No adverse reaction sv 17:47 CANCELLED (Duplicate Order): Zofran 4 mg IVP once; over 2 minutes sv Point of Care Testing: Blood Glucose: 11:32 Blood Glucose: 86 mg/dL; sg Ranges: Critical Glucose Levels:Adult <50 mg/dl or >400 mg/dl <40 mg/dl or >180 mg/dl Disposition: 11/02/17 13:40 Transfer ordered to [facility]. Diagnosis are Altered mental status, unspecified, Unspecified cirrhosis of liver, Ascites, Unspecified kidney failure, Hyperkalemia, Coagulation defect, unspecified, Respiratory failure, unspecified with hypercapnia, Respiratory failure, unspecified with hypoxia, Respiratory failure, unspecified. - Reason for transfer: Higher level of care. - Accepting physician is to [facility]. - Condition is Stable. - Problem is new. - Symptoms have improved. Signatures: Dispatcher [employer] Liana Azul RN RN sv Gay, Steven, RN RN sg Anderson, Corey, MD MD cha Corrections: (The following items were deleted from the chart) 11:57 11:35 NS 0.9% (30 ml/kg) 30 ml/kg IV at bolus once; Sepsis Protocol ordered. enoch 15:10 13:40 11/02/2017 13:40 Transfer ordered to [facility]. Diagnosis is enoch Altered mental status, unspecified; Unspecified cirrhosis of liver; Ascites; Unspecified kidney failure; Hyperkalemia; Coagulation defect, unspecified. Reason for transfer: Higher level of care. Accepting physician is to [facility]. Condition is Stable. Problem is new. Symptoms have improved. enoch 17:28 15:10 11/02/2017 13:40 Transfer ordered to [facility]. Diagnosis is enoch Altered mental status, unspecified; Unspecified cirrhosis of liver; Ascites; Unspecified kidney failure; Hyperkalemia; Coagulation defect, unspecified. Reason for transfer: Higher level of care. Accepting physician is to [facility]. Condition is Stable. Problem is new. Symptoms have improved. enoch 17:28 17:28 11/02/2017 13:40 Transfer ordered to [facility]. Diagnosis is enoch Altered mental status, unspecified; Unspecified cirrhosis of liver; Ascites; Unspecified kidney failure; Hyperkalemia; Coagulation defect, unspecified; Respiratory failure of ; Respiratory failure, unspecified with hypercapnia; Respiratory failure, unspecified with hypoxia. Reason for transfer: Higher level of care. Accepting physician is to [facility]. Condition is Stable. Problem is new. Symptoms have improved. enoch 17:29 17:27 Chest Single View+[id number].[email or web address] ordered. EDMS EDMS 17:47 17:06 Zofran 4 mg IVP once; over 2 minutes ordered. enoch sv 18:06 17:28 11/02/2017 13:40 Transfer ordered to [facility]. Diagnosis is sg Altered mental status, unspecified; Unspecified cirrhosis of liver; Ascites; Unspecified kidney failure; Hyperkalemia; Coagulation defect, unspecified; Respiratory failure, unspecified with hypercapnia; Respiratory failure, unspecified with hypoxia; Respiratory failure, unspecified. Reason for transfer: Higher level of care. Accepting physician is to [facility]. Condition is Stable. Problem is new. Symptoms have improved. enoch
--- NOTE | 2017-11-02 13:41 | ER ---
Nurse's Notes [facility] Name: Gatito Gunn Age: 57 yrs Sex: Male : 1960 Arrival Date: 11/02/2017 Time: 11:29 Bed 3 Private MD: Diagnosis: Altered mental status, unspecified;Unspecified cirrhosis of liver;Ascites;Unspecified kidney failure;Hyperkalemia;Coagulation defect, unspecified;Respiratory failure, unspecified with hypercapnia;Respiratory failure, unspecified with hypoxia;Respiratory failure, unspecified Presentation: 11/02 11:29 Presenting complaint: EMS states: room air saturation of 76 percent, pt placed to NRB sg mask with o2 improvement to 97 percent, pt reports shortness of breath at rest, abd distention, swelling to BLE, altered mental status per pt family, swelling to BUE, Left leg pain, a dressing that is dry and intact noted to Left estrella, pt aa\\T\\ox2 upon EMS arrival, pt reports not taking his medication. Transition of care: patient was not received from another setting of care. Onset of symptoms was November 02, 2017. Initial Sepsis Screen: Does the patient meet any 2 criteria? RR > 20 per min. Altered Mental Status. Yes Does the patient have a suspected source of infection? Yes: Skin breakdown/wound. Care prior to arrival: Oxygen administered. via a non-rebreather mask. 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 - Social history:: Smoking status: Patient/guardian denies using tobacco. Screenin:00 Abuse screen: Denies threats or abuse. Denies injuries from another. Nutritional sg screening: No deficits noted. Tuberculosis screening: No symptoms or risk factors identified. Never had TB. Fall Risk None identified. Assessment: 12:45 General: Appears in no apparent distress. uncomfortable, ill, obese, unkempt, well sg developed, well nourished, Behavior is drowsy, quiet. Pain: Unable to use pain scale. Patient is disoriented. Neuro: Level of Consciousness is confused, lethargic, Oriented to person, Speech is slurred, Facial symmetry appears normal. Cardiovascular: Heart tones S1 S2 present Capillary refill is sluggish in bilateral fingers toes. Cardiovascular: Edema arms, legs. Respiratory: Airway is patent Respiratory effort is labored, shallow, Respiratory pattern is symmetrical, tachypnea Breath sounds are clear. GI: Abdomen is round distended, noted to have ascites. : No deficits noted. EENT: No deficits noted. Derm: Skin is dusky, Skin temperature is cool Wound noted left estrella Other: is dressed, dressing appears clean and dry. Musculoskeletal: Circulation, motion, and sensation intact. Swelling present in right arm, left arm, right leg and left leg. 13:00 Reassessment: Patient appears in no apparent distress at this time. Patient and/or sg family updated on plan of care and expected duration. Pain level reassessed. no changes from previously documented assessment, pt aa\\T\\ox1-self, pt not able to properly identify where he is at this time. 14:00 Reassessment: Patient appears in no apparent distress at this time. pt reports " i need sg to poop!." pt assisted on Bed pain BM x1 noted, that is brown, hard, and small. pt cleaned and placed into clean brief. awaiting transport to receiving facility, awaiting a number for report, awaiting a number for doc to doc. 15:00 Reassessment: Patient appears in no apparent distress at this time. Patient and/or sg family updated on plan of care and expected duration. Pain level reassessed. 16:00 Reassessment: Patient appears in no apparent distress at this time. Patient and/or sg family updated on plan of care and expected duration. Pain level reassessed. awaiting transport to receiving facility at this time. 17:00 Reassessment: Patient appears in no apparent distress at this time. Neuro: Level of sg Consciousness is awake, confused, lethargic, Oriented to person, Speech is slurred, Facial symmetry appears normal. 17:42 Reassessment:. Neuro: Level of Consciousness is confused, lethargic, unresponsive, sg Oriented to none Speech pt moaning to tactile stimuli. Respiratory: Airway is patent Respiratory effort is labored, weak, Respiratory pattern is agonal hypoventilation notified, pt prepped for oral intubation. 17:55 Reassessment: at [facility] for intubation, [facility] at bedside at this time for pt sg transport to [facility]. Reassessment: pt clothing, black hoody, gonzáles boxerbriefs, black sweatpants, home medications, a brown leather type wallet, a black touchscreen phone device, and a purple color phone lock fitter with red charging port, belongings were given to it security analyst at this facility for safe keeping. EMS notified that pt belongings were left at this facility. Vital Signs: 11:32 BP 124 / 78 LA Supine (/reg); Pulse 79 MON; Resp 23 S; Temp 98.0(TE); Pulse Ox 100% ; sg Weight 90.72 kg (R); Pain 10/10; 13:00 BP 112 / 70; Pulse 88 MON; Resp 26; Pulse Ox 98% on 40% Venturi mask; sg 15:37 BP 117 / 77; sv 15:39 Pulse 87 MON; Resp 27; Pulse Ox 98% on 40% Venturi mask; sg 15:40 BP 117 / 77; sg 16:00 BP 116 / 75; Pulse 82; Resp 27; Pulse Ox 97% on 40% Venturi mask; sv 16:30 BP 112 / 79; Pulse 82; Resp 23; Pulse Ox 97% on 40% Venturi mask; sv 13:00 A fib sg 15:39 A fib sg ED Course: 11:29 Patient arrived in ED. sg 11:30 Initial lab(s) drawn, by me, sent to lab. First set of blood cultures drawn by me. sv Inserted saline lock: 18 gauge in right upper arm, using aseptic technique. Blood collected. Flushed right with 5 ml normal saline upper arm. 11:32 Triage completed. sg 11:34 Arm band placed on. sg 11:45 Second set of blood cultures drawn by me. sv 11:56 Ezekiel Garza MD is Attending Physician. enoch 12:05 X-ray completed. Portable x-ray completed in exam room. Patient tolerated procedure jb2 well. 12:06 XRAY Chest (1 view) In Process Unspecified. EDMS 12:14 Liana Del Rosario, FAISAL is Primary Nurse. sv 12:29 EKG done, by plasma processing technician. reviewed by Ezekiel Garza MD. sm3 12:45 Patient has correct armband on for positive identification. Placed in gown. Bed in low sg position. Side rails up X2. internet marketing manager on. Pulse ox on. NIBP on. Warm blanket given. Head of bed elevated. 12:45 No provider procedures requiring assistance completed. sg 12:53 Primary Nurse role handed off by Liana Del Rosario, RN sv 12:53 Jorge Arguelles, RN is Primary Nurse. sv 13:40 Wilkes cath inserted, using sterile technique, 16 Fr., by glass installer technician, balloon inflated, to sg gravity drainage, urine specimen collected. returned kelli urine. Patient tolerated well. 15:19 CT completed. Patient tolerated procedure well. Patient moved to CT via stretcher. sj Patient moved back from CT. 15:26 CT Stone Protocol In Process Unspecified. EDMS 16:30 Patient transferred, IV remains in place. intact, No redness/swelling at site. Pressure sg dressing applied. 17:15 Inserted saline lock: 18 gauge in left EJ, using aseptic technique. ,using aseptic sv technique. done by Dr Garza. 17:23 Assisted provider with intubation using 7.5 mm ETT via oral route. ET tube secured at sv 23cm at the teeth. Set up intubation tray. Intubated by Ezekiel Garza MD Placement verified by CXR, CO2 detector w/ + color change, auscultating bilateral breath sounds. 17:28 NGT: inserted 16 Fr. other oral Placement verified by X-ray. sv 17:38 XRAY Chest (1 view) In Process Unspecified. EDMS Administered Medications: 11:57 CANCELLED (Duplicate Order): NS 0.9% (30 ml/kg) 30 ml/kg IV at bolus once; Sepsis enoch Protocol 13:54 Drug: Lasix 40 mg Route: IVP; Site: right upper arm; sg 15:00 Drug: Kayexalate 30 grams Route: PO; sg 15:30 Drug: Rocephin - (cefTRIAXone) 1 grams Route: IVPB; Infused Over: 30 mins; Site: right sg upper arm; 16:09 Follow up: Response: No adverse reaction; IV Status: Completed infusion sg 17:10 Drug: fentaNYL (PF) 25 mcg Route: IVP; Site: right upper arm; sv 17:20 Follow up: Response: No adverse reaction sv 17:20 Drug: Versed 2 mg Route: IVP; Site: right upper arm; sv 17:30 Follow up: Response: No adverse reaction sv 17:21 Drug: Versed 2 mg Route: IVP; Site: right upper arm; sv 17:30 Follow up: Response: No adverse reaction sv 17:22 Drug: Etomidate 20 mg Route: IVP; Site: right upper arm; sv 17:30 Follow up: Response: No adverse reaction sv 17:47 CANCELLED (Duplicate Order): Zofran 4 mg IVP once; over 2 minutes sv Point of Care Testing: Blood Glucose: 11:32 Blood Glucose: 86 mg/dL; sg Ranges: Outcome: 13:40 ER care complete, transfer ordered by MD. kendall 16:30 Transferred Note: report called to Cecilia Lee RN at [facility] tower 7 bed 10 16:30 Condition: stable 18:06 Patient left the ED. 18:15 Transferred by ground EMS to [facility], to [facility], Transfer form completed. Note: a follow up report was given to Delilah at [facility], d/t change in pt condition Signatures: Dispatcher [employer] Liana Azul, RN RN Jorge Arguelles RN RN sg Anderson, Corey, MD MD cha Buechter, Tony Rivero, Gracy Pressley, Shira newton3 Corrections: (The following items were deleted from the chart) 13:55 13:54 Lasix 40 mg IVP in right antecubital sg sg
[2017-11-02] MEDS ORDERED: FUROSEMIDE 40 MG/4 ML VIAL ONE (13:46)
[2017-11-02] MEDS ORDERED: SOD POLYSTYREN SUL 15 GM/60 ML UCUP ONE (13:46)
[2017-11-02 14:20] LABS: Urine Blood 3+ (NEG); Urine Glucose NEGATIVE (NEG); Urine Protein 1+ (NEG); Urine Specific Gravity 1.015 (1.005-1.030)
--- NOTE | 2017-11-02 14:40 | EKG ---
Test Date: 2017-11-02 Test Time: 11:34:48 Fire Boss: LOGAN MEASUREMENT RESULTS: Intervals: Rate: 74 FL: QRSD: 114 QT: 418 QTc: 463 [place]: P: FL: QRS: 81 T: -37 INTERPRETIVE STATEMENTS: Atrial fibrillation Inferior-posterior infarct, age undetermined ST & T wave abnormality, consider lateral ischemia or digitalis effect Abnormal ECG Compared to ECG 10/28/2017 05:38:15 Incomplete right bundle-branch block no longer present Myocardial infarct finding still present ST (T wave) deviation still present Possible ischemia still present Electronically Signed On 11-02-17 14:39:19 CDT by Bal Khan
[2017-11-02] MEDS ORDERED: CEFTRIAXONE/SWI 1gm 1 GM/10 ML SYR ONE (15:37)
--- NOTE | 2017-11-02 16:00 | RAD REPORT ---
EXAM DESCRIPTION: CT - Stone Protocol - 11/02/2017 3:26 pm CLINICAL HISTORY: Abdominal pain. Abdominal swelling COMPARISON: None. TECHNIQUE: Computed axial tomography of the abdomen pelvis was obtained without oral or IV contrast. Lack of IV and oral contrast limits evaluation of solid organs, bowel, and vessels. Coronal reformat lauro images were obtained and reviewed. All CT scans are performed using dose optimization technique as appropriate and may include automated exposure control or mA/KV adjustment according to patient size. FINDINGS: A renal calculus is not seen. An ureteral calculus is not noted. A bladder calculus is not present. A Wilkes catheter is present within the bladder. The heart is enlarged. Lower lobe atelectasis is present with small pleural effusions. A cirrhotic liver is suspected. Spleen, pancreas and adrenals appear grossly normal There is no evidence of diverticulitis. The appendix appears normal . A large amount of ascites is present. Diffuse edema is present within the subcutaneous tissues IMPRESSION: Negative for a genitourinary calculus Large amount of ascites with anasarca
[2017-11-02] MEDS ORDERED: FENTANYL CITR 100 MCG/2 ML ONE (17:07)
[2017-11-02] MEDS ORDERED: MIDAZOLAM HCL 2 MG/2 ML INJ ONE (17:18)
[2017-11-02] MEDS ORDERED: RSI MEDICATION KIT IV ONE (17:18)
[2017-11-02] MEDS ORDERED: ROCURONIUM 50 MG/5 ML VIAL IV ONE (17:24)
[2017-11-02] MEDS ORDERED: NA CHLORIDE 0.9% 2,000 ML ONE (17:34)
[2017-11-02 18:10] VITALS: TEMP 98
[2017-11-02 18:16] VITALS: O2SAT 97
[2017-11-02 18:17] VITALS: BP 112/79
--- NOTE | 2017-11-02 18:27 | RAD REPORT ---
EXAM DESCRIPTION: RAD - Chest Single View - 11/02/2017 5:39 pm CLINICAL HISTORY: Intubation COMPARISON: November 02 TECHNIQUE: AP portable chest image was obtained 1728 hours . FINDINGS: Endotracheal tube is in place. Tip is in close proximity to the right mainstem bronchus or igin. Gastric tube extends below the diaphragm into the decompressed stomach. Defibrillator is in fela ce. Marked enlargement of the cardiomediastinal silhouette matches prior imaging. Trachea is midline. Vasculature is mostly obscured by the enlarged cardiac silhouette. Shallow inspiration cardiac enlar gement and portable technique limit lung base assessment. Lung base atelectasis and/ or infiltrate ar e likely. No pneumothorax. No gross bony abnormality seen. No acute aortic findings suspected. IMPRESSION: Endotracheal tube tip is in the trachea but is in close proximity to the right mainstem bronchus. Gastric tube in good positioning. Bilateral lung base infiltrate and/ or atelectasis.
== END 2017-11-02 18:06 | disposition short-term general hospital (02) ==
LOC: ER 11:26
PROC: 0BH17EZ Insertion of Endotracheal Airway into Trachea, Via Natural or Artificial Opening (ICD-10-PCS; principal; 2017-11-02)
PROC: 5A1935Z Respiratory Ventilation, Less than 24 Consecutive Hours (ICD-10-PCS; 2017-11-02)
DX: J96.91 Respiratory failure, unspecified with hypoxia (principal); J96.92 Respiratory failure, unspecified with hypercapnia; N19 Unspecified kidney failure; K74.60 Unspecified cirrhosis of liver; R18.8 Other ascites; E87.5 Hyperkalemia; D68.9 Coagulation defect, unspecified; Z95.1 Presence of aortocoronary bypass graft
CPT/HCPCS: 31500; 36415; 71045 ×2; 74176; 76377; 80048; 80076; 81003; 82140; 82150; 82550; 82553; 83605; 83690; 83735; 83880; 84145; 84484; 85025; 85610; 85652; 85730; 86140; 87040 ×2; 93005; 94002; J0696; J2250; J3010; J7030; 51702; 82962; 96365; 96375; 99285

== ENCOUNTER 2018-01-01 16:15 | Inpatient (IN) | payer OTHER ==
--- OUTSIDE RECORDS SUMMARY | 2018-01-01 16:20 | XMS REPORT | Clinical Summary ---
:1960 Author Organization [facility] Address [address] [place] [address] Phone Care Team Providers Name Role Phone Unavailable Primary Care Provider Unavailable Allergies No Known Allergies Current Medications Prescription Sig. Disp. Refills Start Date End Date Status levothyroxine Take 50 mcg by Active (SYNTHROID, mouth Every LEVOTHROID) 50 MCG morning on an tablet empty stomach. bumetanide (BUMEX) 1 Take 1 tablet (1 180 tablet 3 11/20/2017 Active MG tablet mg total) by mouth 9 daily. digoxin (LANOXIN) Take 1 tablet (125 90 tablet 3 11/21/2017 Active 0.125 MG tablet mcg total) by 9 mouth every other day. folic Take 1 tablet by 90 tablet 0 11/20/2017 Active acid-multivitamins mouth daily. (NEPHRO-COURTNEY) 0.8 mg Tab tablet lactulose Take 30 mLs (20 g 1000 mL 3 11/19/2017 Active (CHRONULAC) 20 total) by mouth 3 gram/30 mL solution (three) times daily. pantoprazole Take 1 tablet (40 90 tablet 3 11/20/2017 Active (PROTONIX) 40 MG mg total) by mouth tablet daily. rifAXIMin 550 mg Tab Take 1 tablet (550 180 tablet 3 11/19/2017 Active mg total) by mouth 2 (two) times daily. spironolactone Take 1 tablet (25 90 tablet 3 11/20/2017 Active (ALDACTONE) 25 MG mg total) by mouth 9 tablet daily. atorvastatin Take 1 tablet (20 30 tablet 0 10/01/2016 (LIPITOR) 20 MG mg total) by mouth 8 tablet nightly. budesonide Take 2 mLs (0.5 mg 60 mL 0 10/01/2016 (PULMICORT) 0.5 mg/2 total) by 8 mL nebulizer nebulization 2 solution (two) times daily. bumetanide (BUMEX) 2 Take 1 tablet (2 30 tablet 0 10/01/2016 MG tablet mg total) by mouth 8 daily. ipratropium-albutero Take 3 mLs by 90 ampule 0 10/01/2016 l (DUO-NEB) 0.5 mg-3 nebulization 4 8 mg(2.5 mg base)/3 mL (four) times daily nebulizer solution for 360 days. carvedilol (COREG) Take 1 tablet 60 tablet 0 10/01/2016 3.125 MG tablet (3.125 mg total) 8 by mouth 2 (two) times daily with breakfast and dinner. midodrine Take 1 tablet (10 90 tablet 3 11/20/2017 (PROAMATINE) 10 MG mg total) by mouth 8 tablet 3 (three) times daily before meals for 30 days. traZODone (DESYREL) Take 1 tablet (50 90 tablet 3 11/19/2017 50 MG tablet mg total) by mouth 8 nightly for 30 days. Active Problems Problem Noted Date Cardiogenic shock ([facility]) 11/03/2017 Septic shock ([facility]) 11/03/2017 Acute metabolic encephalopathy 11/03/2017 Acute hepatic encephalopathy 11/03/2017 Acute renal failure with tubular necrosis (HCC) 11/03/2017 Anemia 11/03/2017 Acute hypoxemic respiratory failure ([facility]) 11/02/2017 Altered mental status 11/02/2017 DEO (acute kidney injury) ([facility]) 11/02/2017 RVF (right ventricular failure) ([facility]) 11/02/2017 Volume overload 11/02/2017 Other cirrhosis of liver ([facility]) 11/02/2017 Other ascites 11/02/2017 Hypothyroid 11/02/2017 Atrial fibrillation (HCC) 11/02/2017 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[facility]) 11/02/2017 CHF (congestive heart failure), NYHA class III, [...] Macrocytic anemia 09/06/2016 Coronary artery disease involving [place] heart without angina pectoris 2016 Non morbid obesity 09/06/2016 Chest pain, unspecified type 09/05/2016 Encounters Date Type Specialty Care Team Description 11/11/2017 Procedure Pass 11/11/2017 Surgery Alex Houser MD 11/05/2017 Procedure Pass 11/02/2017 - Hospital Encounter Cardiology Malena Hernandez Acute blood loss as 11/20/2017 MD Luigi cause of postoperative Oziel Narayanan MD anemia;Acute hypoxemic Dipti Moy, respiratory failure Dylan Eason, ([facility]);Acute metabolic MD encephalopathy;Acute Alex Houser renal failure with MD Kali tubular necrosis ([facility]);Cardiogenic shock (HCC);RVF (right ventricular failure) (HCC);Septic shock (HCC);Respiratory failure requiring intubation (HCC);Acute congestive heart failure, unspecified heart failure type (HCC);Acute kidney injury (HCC);Other cirrhosis of liver (HCC) after 12/31/2016 Social History Tobacco Use Types Packs/Day Years Used Date Unknown If Ever Smoked Alcohol Use Drinks/Week oz/Week Comments Yes Sex Assigned at Date Recorded Not on file Last Filed Vital Signs Vital Sign Reading Time Taken Blood Pressure 115/59 11/20/2017 7:46 AM CDT Pulse 60 11/20/2017 7:55 AM CDT Temperature 36.6 C (97.8 F) 11/20/2017 6:14 AM CDT Respiratory Rate 14 11/20/2017 7:55 AM CDT Oxygen Saturation 93% 11/20/2017 7:55 AM CDT Inhaled Oxygen Concentration - - Weight 66.3 kg (146 lb 3.2 oz) 11/20/2017 6:14 AM CDT Height 162.6 cm (5' 4") 11/14/2017 9:00 PM CDT Body Mass Index 25.1 11/20/2017 6:14 AM CDT Plan of Treatment Not on file Implants Implanted Type Area Electronic Lab Technician Device Expiration Model / Identifier Date Serial / Lot Patch Vasc [place] 1.65mm 1x6in [id number] - [id number] Graft/Patc N/A: CR [id number] / Implanted: Qty: 1 on 09/23/2016 by Adam Sullivan MD Chest BARD: PERIPHERAL / VASC [id number] Valve Mitrl De Leon Ii 33mm - [id number] Valves N/A: [employer]:STRUCT 02/17 [id number] / Implanted: Qty: 1 on 09/23/2016 by Adam Sullivan MD Chest URAL HEART [id number] / Procedures Procedure Name Priority Date/Time Associated Diagnosis Comments R CATH 11/11/2017 3:06 PM CDT Heart failure, unspecified HF chronicity, unspecified heart failure type (HCC) Case Notes (2) 7S2-10 after 12/31/2016 Results RHYTHM STRIP - SCAN (11/23/2017 2:31 PM)TRANSFUSION SERVICE REPORT - SCAN (06/2017 5:43 PM)Only the most recent of7 resultswithin the time period is included.CBC with platelet count + automated diff (11/20/2017 6:06 AM)Only the most recent of20 resultswithin the time period is included. Component Value Ref Range WBC 5.3 3.5 - 10.5 K/L RBC 2.95 (L) 4.63 - 6.08 M/L Hemoglobin 8.2 (L) 13.7 - 17.5 GM/DL Hematocrit 27.5 (L) 40.1 - 51.0 % MCV 93.2 (H) 79.0 - 92.2 fL MCH 27.8 25.7 - 32.2 pg MCHC 29.8 (L) 32.3 - 36.5 GM/DL RDW 19.8 (H) 11.6 - 14.4 % Platelets 85 (L) 150 - 450 K/CU MM MPV 10.2 9.4 - 12.4 fL nRBC 0 0 - 0 /100 WBC % Neutros 69 % % Lymphs 11 % % Monos 16 % % Eos 4 % % Baso 0 % # Neutros 3.65 1.78 - 5.38 K/L # Lymphs 0.60 (L) 1.32 - 3.57 K/L # Monos 0.84 (H) 0.30 - 0.82 K/L # Eos 0.21 0.04 - 0.54 K/L # Baso 0.01 0.01 - 0.08 K/L Immature Granulocytes-Relative 0 0 - 1 % Specimen Performing Laboratory Blood - Arm, [address] [address] Prothrombin time/INR (11/20/2017 6:06 AM)Only the most recent of19 resultswithin the time period is included. Component Value Ref Range Protime 16.8 (H) 11.7 - 14.7 seconds INR 1.4 <=5.9 Specimen Performing Laboratory Blood - Arm, [address] [address] Narrative RECOMMENDED COUMADIN/WARFARIN INR THERAPY RANGES STANDARD DOSE: 2.0 - 3.0 Includes: PROPHYLAXIS for venous thrombosis, systemic embolization; TREATMENT for venous thrombosis and/or pulmonary embolus. HIGH RISK: Target INR is 2.5-3.5 for patients with mechanical heart valves. CBC with platelet count + automated diff (11/20/2017 6:06 AM)Only the most recent of20 resultswithin the time period is included. Specimen Performing Laboratory Blood Narrative The following orders were created for panel order CBC with platelet count + automated diff. Procedure Abnormality Status --------- ------ CBC with platelet count ...[[id number]]AbnormalFinal result Please view results for these tests on the individual orders. Phosphorus (11/20/2017 6:06 AM)Only the most recent of19 resultswithin the time period is included. Component Value Ref Range Phosphorus 4.0 2.3 - 4.7 mg/dL Specimen Performing Laboratory Blood - Arm, [address] [address] Magnesium (11/20/2017 6:06 AM)Only the most recent of27 resultswithin the time period is included. Component Value Ref Range Magnesium 1.8 1.6 - 2.6 mg/dL Specimen Performing Laboratory Blood - Arm, [address] [address] Hepatic function panel (11/20/2017 6:06 AM)Only the most recent of18 resultswithin the time period is included. Component Value Ref Range Protein, Total 7.2 6.0 - 8.3 gm/dL Albumin 3.0 (L) 3.5 - 5.0 g/dL Total Bilirubin 1.3 (H) 0.2 - 1.2 mg/dL Bilirubin, Direct 0.9 (H) 0.1 - 0.5 mg/dL Alkaline Phosphatase 124 40 - 150 U/L AST 25 5 - 34 U/L ALT 11 6 - 55 U/L Specimen Performing Laboratory Blood - Arm, [address] [address] Basic Metabolic Panel (11/20/2017 6:06 AM)Only the most recent of23 resultswithin the time period is included. Component Value Ref Range Sodium 136 136 - 145 meq/L Potassium 4.2 3.5 - 5.1 meq/L Chloride 94 (L) 98 - 107 meq/L CO2 32 (H) 22 - 29 meq/L BUN 53 (H) 7 - 21 mg/dL Creatinine 1.62 (H) 0.57 - 1.25 mg/dL Glucose 78 70 - 105 mg/dL Calcium 8.5 8.4 - 10.2 mg/dL EGFR 44Comment: ESTIMATED GFR IS NOT ACCURATE mL/min/1.73 sq m CREATININE CLEARANCE IN PREDICTING GLOMERULAR FILTRATION RATE. ESTIMATED GFR IS NOT APPLICABLE FOR DIALYSIS PATIENTS. Specimen Performing Laboratory Blood - Arm, [address] [address] Lactic acid, venous, whole blood (11/19/2017 6:19 AM)Only the most recent of3 resultswithin the time period is included. Component Value Ref Range Lactate, Venous 0.8 0.5 - 2.2 mmol/L Specimen Performing Laboratory Blood - Arm, Left [facility] [address] [place] [address] Narrative Effective 10/24/2015: Units/Reference Range Change New: 0.5-2.2 mmol/LPrevious: 5-20 mg/dL Prepare RBC (11/19/2017 5:56 AM)Only the most recent of3 resultswithin the time period is included. Component Value Ref Range Unit ABO A Pos UNIT NUMBER [id number] Status WORK IN PROGRESS Blood Bank Product RED BLOOD CELLS PRODUCT CODE [id number] CROSSMATCH COMPATIBLE Specimen Performing Laboratory SAFETRACE [place] XR abdomen / KUB 1 view (11/17/2017 9:05 PM)Only the most recent of2 resultswithin the time period is included. Specimen Performing Laboratory GE RIS Narrative FINAL REPORT EXAMINATION: SUPINE ABDOMEN CLINICAL INDICATION: Abdominal distention and pain IMPRESSION: Compared with 11/04/2017, abdominal CT 09/07/2016 Increased attenuation is again noted throughout the abdomen and pelvis compatible with ascites. The bowel gas pattern is nonspecific. Evaluation for free air below the diaphragm and air-fluid levels within the bowel is limited by supine patient positioning. Abdominal CT could be performed for further evaluation if clinically warranted. Signed: Brea Larkin MD Report Verified Date/Time:11/17/2017 22:01:55 Reading Location: [address] Reading Room Procedure Note Interface, External Ris In - 11/17/2017 10:03 PM CDT FINAL REPORT EXAMINATION: SUPINE ABDOMEN CLINICAL INDICATION: Abdominal distention and pain IMPRESSION: Compared with 11/04/2017, abdominal CT 09/07/2016 Increased attenuation is again noted throughout the abdomen and pelvis compatible with ascites. The bowel gas pattern is nonspecific. Evaluation for free air below the diaphragm and air-fluid levels within the bowel is limited by supine patient positioning. Abdominal CT could be performed for further evaluation if clinically warranted. Signed: Brea Larkin MD Report Verified Date/Time: 11/17/2017 22:01:55 Reading Location: [address] Reading Room chest 1 view portable / bedside (11/17/2017 9:09 AM)Only the most recent of6 resultswithin the time period is included. Specimen Performing Laboratory GE RIS Narrative FINAL REPORT Chest one view compared to November 07 Discussion: Left chest ICD, cardiac valve replacement, cardiac prominence, pulmonary congestion, bilateral small effusions are noted. No pneumothorax. IMPRESSIONS: Interstitial congestion appears worse. Signed: Mamie Kirby MD Report Verified Date/Time:11/17/2017 11:17:58 Reading Location: [facility] Radiology Reading Room Procedure Note Interface, External Ris In - 11/17/2017 11:20 AM CDT FINAL REPORT Chest one view compared to November 07 Discussion: Left chest ICD, cardiac valve replacement, cardiac prominence, pulmonary congestion, bilateral small effusions are noted. No pneumothorax. IMPRESSIONS: Interstitial congestion appears worse. Signed: Mamie Kirby MD Report Verified Date/Time: 11/17/2017 11:17:58 Reading Location: [facility] Radiology Reading Room Blood gas, arterial (11/17/2017 5:27 AM)Only the most recent of27 resultswithin the time period is included. Component Value Ref Range pH, Arterial 7.41 7.35 - 7.45 pCO2, Arterial 57 (H) 35 - 45 mmHg pO2, Arterial 89 80 - 90 mmHg O2 Sat, Arterial 96.7 96.0 - 97.0 % HCO3, Arterial 36 (H) 21 - 29 mmol/L Base Excess, Arterial 9.7 (H) -2.0 - 3.0 mmol/L Patient Temperature 37.0 C FIO2 36.0 % Specimen Performing Laboratory Blood, Arterial - Arm, Right [facility] [address] [address] Narrative Draw ABG first thing in AM once patient takes off BiPAP to start his day. Prepare Leuko-Red RBC (11/16/2017 11:54 PM) Component Value Ref Range Unit ABO A Pos UNIT NUMBER [id number] Status TRANSFUSED Blood Bank Product RED BLOOD CELLS PRODUCT CODE [id number] CROSSMATCH COMPATIBLE Specimen Performing Laboratory Other [employer] POC-Glucose meter (11/15/2017 10:23 PM)Only the most recent of57 resultswithin the time period is included. Component Value Ref Range POC-Glucose Meter 100Comment: TESTED AT [address] 70 - 110 mg/dL [address] Specimen Performing Laboratory Blood [address] [address] Transfuse Leuko-Red RBC (11/15/2017 8:54 PM)Only the most recent of2 resultswithin the time period is included.Type and screen, automated (2017 2:05 PM)Only the most recent of3 resultswithin the time period is included. Component Value Ref Range ABO/RH AUTOMATED (BEAKER) A POSITIVE Ab Scrn NEGATIVE Specimen Performing Laboratory Blood [address] [address] B-type Natriuretic Factor (BNP) (11/14/2017 9:16 AM)Only the most recent of3 resultswithin the time period is included. Component Value Ref Range BNP 730 (H) 0 - 100 pg/mL Specimen Performing Laboratory Blood [address] [address] aPTT (11/14/2017 4:17 AM)Only the most recent of13 resultswithin the time period is included. Component Value Ref Range PTT 43.5 (H) 22.5 - 36.0 seconds Specimen Performing Laboratory Blood - Line, Arterial [address] [address] CARDIAC CATH REPORT - SCAN (11/12/2017 3:00 PM)Wound culture + gram stain ( 5:27 PM) Component Value Ref Range Result No growth Gram Stain Result 1+ WBCs Gram Stain Result No organisms seen Specimen Performing Laboratory Abscess - Leg, Left [address] [address] [place] Aspiration (11/09/2017 4:11 PM) Specimen Performing Laboratory GE RIS Narrative FINAL REPORT Ultrasound guided fine-needle aspiration dated 11/09/2017 Procedure: Aspiration of subcutaneous collection in the left leg Pre-procedure diagnosis: Subcutaneous collection in the left leg Post-procedure diagnosis: Subcutaneous collection in the left lower Radiologist: Luisito Cohen MD Net Wpf Developer: None Sedation: None. Anesthesia: 1% Xylocaine local anesthesia. Technique/Specimen removed: After obtaining informed consent, ultrasound-guided aspiration of hypoechoic collection in the subcutaneous soft tissue of the left leg was performed. 1 cc of hemorrhagic fluid removed. The specimen was sent to microbiology. Complication: None Estimated Blood Loss: None Graft/Implants: None Impression: Ultrasound-guided fine-needle aspiration of the hypoechoic collection in subcutaneous soft tissue of the left leg. Signed: Luisito Cohen MD Report Verified Date/Time:11/09/2017 16:44:58 Reading Location: [address] Ultrasound Reading Room Procedure Note Interface, External Ris In - 11/09/2017 4:47 PM CDT FINAL REPORT Ultrasound guided fine-needle aspiration dated 11/09/2017 Procedure: Aspiration of subcutaneous collection in the left leg Pre-procedure diagnosis: Subcutaneous collection in the left leg Post-procedure diagnosis: Subcutaneous collection in the left lower Radiologist: Luisito Cohen MD Net Wpf Developer: None Sedation: None. Anesthesia: 1% Xylocaine local anesthesia. Technique/Specimen removed: After obtaining informed consent, ultrasound-guided aspiration of hypoechoic collection in the subcutaneous soft tissue of the left leg was performed. 1 cc of hemorrhagic fluid removed. The specimen was sent to microbiology. Complication: None Estimated Blood Loss: None Graft/Implants: None Impression: Ultrasound-guided fine-needle aspiration of the hypoechoic collection in subcutaneous soft tissue of the left leg. Signed: Luisito Cohen MD Report Verified Date/Time: 11/09/2017 16:44:58 Reading Location: [address] Ultrasound Reading Room Sputum Culture + Gram Stain (11/07/2017 2:43 PM)Only the most recent of2 resultswithin the time period is included. Component Value Ref Range Result 2+ Methicillin resistant Staphylococcus aureus (A) Result 2+ Aeromonas species (A) Gram Stain Result 1+ White blood cells seen Gram Stain Result 5-10 epithelial cells Gram Stain Result 3+ gram negative rods Gram Stain Result <1+ gram positive cocci in clusters Gram Stain Result 1+ yeast Specimen Performing Laboratory Sputum - Expectorated [facility] [address] [place] [address] Narrative 2+ Normal respiratory arsalan present Organism Antibiotic Method Susceptibility Methicillin resistant Clindamycin >=4: Resistant Staphylococcus aureus Methicillin resistant Erythromycin >=8: Resistant Staphylococcus aureus Methicillin resistant Linezolid 2: Susceptible Staphylococcus aureus Methicillin resistant Oxacillin >=4: Resistant Staphylococcus aureus Methicillin resistant Rifampin <=0.5: Susceptible Staphylococcus aureus Methicillin resistant Tetracycline 2: Susceptible Staphylococcus aureus Methicillin resistant Trimethoprim + <=10: Susceptible Staphylococcus aureus Sulfamethoxazole Methicillin resistant Vancomycin <=0.5: Susceptible Staphylococcus aureus Aeromonas species Amikacin <=2: Susceptible Aeromonas species Aztreonam 4: Susceptible Aeromonas species Cefepime <=4: Dose Dependent Susceptible Aeromonas species Ceftazidime 4: Susceptible Aeromonas species Ceftriaxone <=0.5: Susceptible Aeromonas species Ciprofloxacin >2: Resistant Aeromonas species Ertapenem <=0.25: Susceptible Aeromonas species Gentamicin <=2: Susceptible Aeromonas species Imipenem <=0.5: Susceptible Aeromonas species Levofloxacin 4: Resistant Aeromonas species Meropenem <=0.5: Susceptible Aeromonas species Piperacillin + Tazobactam <=8: Susceptible Aeromonas species Tetracycline <=4: Susceptible Aeromonas species Tobramycin <=2: Susceptible Aeromonas species Trimethoprim + <=40: Susceptible Sulfamethoxazole Comment: Higher doses of Cefepime such as 1g every 8 hours are recommended with an interpretation of Dose Dependent Susceptible Lactic acid, arterial, whole blood (11/07/2017 7:00 AM)Only the most recent of2 resultswithin the time period is included. Component Value Ref Range Lactate, Art 0.9 0.5 - 2.2 mmol/L Specimen Performing Laboratory Blood, Arterial [place] [id number] [place] [address] Narrative Effective 10/24/2015: Units/Reference Range Change New: 0.5-2.2 mmol/LPrevious: 5-20 mg/dL Comprehensive metabolic panel (11/07/2017 6:06 AM)Only the most recent of3 resultswithin the time period is included. Component Value Ref Range Protein, Total 6.7 6.0 - 8.3 gm/dL Albumin 2.6 (L) 3.5 - 5.0 g/dL Alkaline Phosphatase 103 40 - 150 U/L Total Bilirubin 1.3 (H) 0.2 - 1.2 mg/dL Sodium 136 136 - 145 meq/L Potassium 4.1 3.5 - 5.1 meq/L Chloride 103 98 - 107 meq/L CO2 29 22 - 29 meq/L BUN 19 7 - 21 mg/dL Creatinine 1.84 (H) 0.57 - 1.25 mg/dL Glucose 93 70 - 105 mg/dL Calcium 8.3 (L) 8.4 - 10.2 mg/dL AST 18 5 - 34 U/L ALT 10 6 - 55 U/L EGFR 38Comment: ESTIMATED GFR IS NOT ACCURATE mL/min/1.73 sq m CREATININE CLEARANCE IN PREDICTING GLOMERULAR FILTRATION RATE. ESTIMATED GFR IS NOT APPLICABLE FOR DIALYSIS PATIENTS. Specimen Performing Laboratory Blood [address] [address] Prepare plasma (11/06/2017 11:55 PM) Component Value Ref Range Unit ABO A Neg UNIT NUMBER [id number] Status CANCELED Blood Bank Product FFP PRODUCT CODE [id number] Unit ABO A Pos UNIT NUMBER [id number] Status TRANSFUSED Blood Bank Product FFP PRODUCT CODE [id number] Specimen Performing Laboratory Blood [employer] Prepare Leuko-Red PLT (11/06/2017 11:54 PM) Component Value Ref Range Unit ABO AB Pos UNIT NUMBER [id number] Status TRANSFUSED Blood Bank Product PLATELETS PRODUCT CODE [id number] Specimen Performing Laboratory Blood [place] Transfuse Leuko-Red PLT (11/05/2017 3:34 PM)Only the most recent of2 resultswithin the time period is included.Glucose, body fluid (11/05/2017 2:55 PM)Only the most recent of2 resultswithin the time period is included. Component Value Ref Range Glucose, Body Fluid 99 mg/dL Specimen Performing Laboratory Body Fluid - Ascites [address] [address] Narrative Absence of reference range indicates that normals have not been defined. Assay performance has not been validated for this type of specimen. Body fluid culture + gram stain (11/05/2017 2:55 PM) Component Value Ref Range Result No growth Gram Stain Result <1+ WBCs Gram Stain Result No organisms seen Specimen Performing Laboratory Body Fluid - Ascites [address] [address] Body fluid cell count with differential (11/05/2017 2:55 PM)Only the most recent of3 resultswithin the time period is included. Component Value Ref Range Appearance Moderately Bloody (A) Clear Color Niru (A) Colorless, Straw RBCs [address] (H) <=1 /cu mm Adjusted WBC Count 115 (H) <=5 /cu mm Lining Cells 0 <=1 /cu mm % Segs 16 % % Lymphs 29 % % Monos 55 % % Eos 0 % % Baso 0 % Container Body Fluid EDTA Tube Specimen Performing Laboratory Body Fluid - Ascites [address] [address] Protein, body fluid (11/05/2017 2:55 PM)Only the most recent of2 resultswithin the time period is included. Component Value Ref Range Protein, Fluid 3.4 g/dL Specimen Performing Laboratory Body Fluid - Ascites [address] [address] Narrative Absence of reference range indicates that normals have not been defined. Assay performance has not been validated for this type of specimen. Albumin, body fluid (11/05/2017 2:55 PM)Only the most recent of2 resultswithin the time period is included. Component Value Ref Range Albumin, Fluid 1.5 gm/dL Specimen Performing Laboratory Body Fluid - Ascites [address] [address] Narrative Reference Range:No Normals Assay performance has not been validated for this type of specimen. Cytology (11/05/2017 2:55 PM)Only the most recent of2 resultswithin the time period is included. Component Value Ref Range Case Report Medical Cytology Report Case: [id number] Authorizing Provider:Tonya Andrews MD Collected: 11/05/2017 0796 Ordering Location: [place] [address] ICUReceived: 11/05/2017 1556 Pathologist: Lonny Barnard MD Specimen:Peritoneal Fluid DIAGNOSIS PERITONEAL FLUID (CYTOSPINS): - NO MALIGNANT CELLS IDENTIFIED Signing Pathologist Direct Phone Line: [phone] CPT Code(s) 98085 CLINICAL DATA Ascites; acute hypoxemic resp failure, DEO with hyperkalemia, acute decompensated RV failure, pulmonary edema, cardiogenic shock, suspected septic shock SPECIMEN SOURCE PERITONEAL FLUID GROSS DESCRIPTION Prepared 4 cytospins from 50 ml dark yellow fluid Collected: [id number] Received: 888805 STATEMENT OF ADEQUACY Satisfactory Gross assessment was performed at [facility], Department of Pathology, [address] [place] [address], Technical component was performed at [facility], Department of Pathology, [address] [place] [address], Professional component was performed [facility], at Department of Pathology, [address] [place] [address], Specimen Performing Laboratory Body [place] [address] Transfuse plasma (11/05/2017 2:45 PM)Transfusion Reaction Investigation (2017 12:12 PM) Component Value Ref Range TRANSFUSION RX INVESTIGATION(BEAKER) SEE COMMENTComment: Possible transfusion related circulatory overload. Cannot rule out underlying disease as cause of presenting symptoms. No evidence to support the presence of TRALI.Electronic Signature: Armando Rodriguez M.D. Specimen [place] [address] Manual Differential (11/05/2017 3:38 AM)Only the most recent of2 resultswithin the time period is included. Component Value Ref Range % Neutros 77 % % Lymphs 1 % % Monos 4 % % Eos 1 % % Baso 1 % % Bands 16 (H) 0 - 10 % # Neutros 8.24 (H) 1.78 - 5.38 K/ul # Lymphs 0.11 (L) 1.32 - 3.57 K/ul # Monos 0.43 0.30 - 0.82 K/uL # Eos 0.11 0.04 - 0.54 K/uL # Baso 0.11 (H) 0.01 - 0.08 K/uL # Bands 1.71 (H) 0.00 - 0.80 K/uL Total Counted 100 WBC Morphology Normal Large Platelet Present Polychromasia 1+ few Basophilic Stippling Present Artifact Present Platelet Conc Decreased Specimen Performing Laboratory Blood - Line, Arterial [facility] [address] [address] Narrative Received comment: User comments: Slide comments: ECG 12 lead (11/04/2017 10:22 PM)Only the most recent of2 resultswithin the time period is included. Specimen Performing Laboratory GE MUSE Narrative Ventricular Rate 97 BPM Atrial Rate 68 BPM QRS Duration 108 ms Q-T Interval 372 ms QTC Calculation(Bazett) 472 ms R [place] 68 degrees T [place] -78 degrees Atrial fibrillation Inferior-posterior infarct , age undetermined ST & T wave abnormality, consider lateral ischemia Abnormal ECG Confirmed by MD Arango Mahboob ([id number]) on 11/05/2017 5:50:03 PM Procedure Note Interface, External Ris In - 11/05/2017 5:50 PM CDT Ventricular Rate 97 BPM Atrial Rate 68 BPM QRS Duration 108 ms Q-T Interval 372 ms QTC Calculation(Bazett) 472 ms R [place] 68 degrees T [place] -78 degrees Atrial fibrillation Inferior-posterior infarct , age undetermined ST & T wave abnormality, consider lateral ischemia Abnormal ECG Confirmed by MD Arango Mahboob ([id number]) on 11/05/2017 5:50:03 PM US abdominal with doppler (11/04/2017 5:15 PM) Specimen Performing Laboratory GE RIS Narrative FINAL REPORT INDICATION: 57-year-old male with cirrhosis. Evaluate for ascites and for liver mass. TECHNIQUE: Ultrasound of the Abdomen and Doppler evaluation. Sonographic evaluation of the abdomen was performed, including color flow and spectral Doppler analysis of the abdominal vasculature. COMPARISON: Abdomen pelvis CT exam September 07, 2016 FINDINGS: Pancreas is not visualized because of bowel gas. Nodular liver contour is in keeping with cirrhosis. No liver mass demonstrated. Main portal vein is at the upper limits of normal in caliber measuring 1.3 cm. Hepatopedal flow is demonstrated in the main portal vein, right portal vein, and left portal vein. Peak velocity in the main portal vein was 41 cm/s. No thrombus in the portal venous system demonstrated. Proper hepatic artery, right hepatic artery, left hepatic artery were visualized and demonstrate elevated resistive indices of 0.9, 0.8, and 0.8 respectively. Hepatic venous confluence, IVC, right, middle, and left hepatic veins visualized and patent. Splenic vein visualized at the level of the pancreatic head and tail and at the hilum and demonstrates hepatopedal flow. Proximal abdominal aorta are unremarkable. Mid and distal abdominal aorta not visualized because of bowel gas. There is diffuse thickening of the gallbladder wall, which may be seen in cirrhosis. Nonspecific small echogenic focus along the gallbladder wall noted. No discrete gallstones. Gallbladder is not distended with a transverse diameter of 1.6 cm. The common bile duct is normal in caliber measuring 0.5 cm in diameter. Both kidneys are normal in size. Right kidney measures 10.9 x 6.2 x 6.0 cm. Left kidney measures 10.0 x 6.0 x 5.7 cm. No renal mass or hydronephrosis demonstrated. Spleen is normal in size measuring 15 cm in length. There is moderate upper abdominal free fluid (ascites). Right pleural effusion also noted. IMPRESSION: Cirrhosis and moderate ascites. No sonographic evidence of hepatocellular carcinoma. Signed: Brandon Amador MD Report Verified Date/Time:11/04/2017 18:29:17 Reading Location: [facility] C013W Consult Reading Room Procedure Note Interface, External Ris In - 11/04/2017 6:31 PM CDT FINAL REPORT INDICATION: 57-year-old male with cirrhosis. Evaluate for ascites and for liver mass. TECHNIQUE: Ultrasound of the Abdomen and Doppler evaluation. Sonographic evaluation of the abdomen was performed, including color flow and spectral Doppler analysis of the abdominal vasculature. COMPARISON: Abdomen pelvis CT exam September 07, 2016 FINDINGS: Pancreas is not visualized because of bowel gas. Nodular liver contour is in keeping with cirrhosis. No liver mass demonstrated. Main portal vein is at the upper limits of normal in caliber measuring 1.3 cm. Hepatopedal flow is demonstrated in the main portal vein, right portal vein, and left portal vein. Peak velocity in the main portal vein was 41 cm/s. No thrombus in the portal venous system demonstrated. Proper hepatic artery, right hepatic artery, left hepatic artery were visualized and demonstrate elevated resistive indices of 0.9, 0.8, and 0.8 respectively. Hepatic venous confluence, IVC, right, middle, and left hepatic veins visualized and patent. Splenic vein visualized at the level of the pancreatic head and tail and at the hilum and demonstrates hepatopedal flow. Proximal abdominal aorta are unremarkable. Mid and distal abdominal aorta not visualized because of bowel gas. There is diffuse thickening of the gallbladder wall, which may be seen in cirrhosis. Nonspecific small echogenic focus along the gallbladder wall noted. No discrete gallstones. Gallbladder is not distended with a transverse diameter of 1.6 cm. The common bile duct is normal in caliber measuring 0.5 cm in diameter. Both kidneys are normal in size. Right kidney measures 10.9 x 6.2 x 6.0 cm. Left kidney measures 10.0 x 6.0 x 5.7 cm. No renal mass or hydronephrosis demonstrated. Spleen is normal in size measuring 15 cm in length. There is moderate upper abdominal free fluid (ascites). Right pleural effusion also noted. IMPRESSION: Cirrhosis and moderate ascites. No sonographic evidence of hepatocellular carcinoma. Signed: Brandon Amador MD Report Verified Date/Time: 11/04/2017 18:29:17 Reading Location: [address] Consult Reading Room extremity non-vascular limited left (11/04/2017 4:35 PM) Specimen Performing Laboratory Exclusively.in RIS Narrative FINAL REPORT INDICATION: Focal swelling of the left lower extremity. Evaluate for abscess. COMPARISON: None. TECHNIQUE: Ultrasound of the left lower extremity, nonvascular. FINDINGS / IMPRESSION: Ultrasound was performed in the area of clinical concern. This was in the left lower leg laterally and posteriorly. Diffuse edema of the subcutaneous fat was demonstrated with a 2.4 x 2.2 x 0.9 cm superficial collection, may represent abscess or seroma. Signed: Brandon Amador MD Report Verified Date/Time:11/04/2017 18:32:04 Reading Location: [facility] C013 Consult Reading Room Procedure Note Interface, External Ris In - 11/04/2017 6:34 PM CDT FINAL REPORT INDICATION: Focal swelling of the left lower extremity. Evaluate for abscess. COMPARISON: None. TECHNIQUE: Ultrasound of the left lower extremity, nonvascular. FINDINGS / IMPRESSION: Ultrasound was performed in the area of clinical concern. This was in the left lower leg laterally and posteriorly. Diffuse edema of the subcutaneous fat was demonstrated with a 2.4 x 2.2 x 0.9 cm superficial collection, may represent abscess or seroma. Signed: Brandon Amador MD Report Verified Date/Time: 11/04/2017 18:32:04 Reading Location: [facility] C013W Consult Reading Room PHERAL VASCULAR REPORT - SCAN (11/04/2017 7:20 AM)[id number] ( 5:11 AM) Component Value Ref Range A-1 Antitrypsin 184.70 90.00 - 200.00 mg/dL Specimen Performing Laboratory Blood [facility] [address] [address] Ceruloplasmin (11/04/2017 5:11 AM) Component Value Ref Range Ceruloplasmin 31 18 - 36 mg/dL Comment: Adults:Males: 18-36 mg/dL Females: 18-53 mg/dL Pediatrics:Males (mg/dL)Females (mg/dL) 0-30 Days 8-25 3-28 31 Days-11 Month [id number] 1-3 [id number] 4-6 [id number] 7-9 [id number] 10-12 [id number] 13-15 [id number] 16-18 [id number] The pediatric ranges are derived from the following criteria: Petey SJ, María JM, Kandy J et al Pediatric reference ranges for Nfaj-6-Ecqzhuvweyzcb and ceruloplasmin. Clin. Chem 1997; 43:S1999 Pediatric Reference Ranges, 2nd., SF Peteyet al. editors. [employer], [place], [place] 1997. Specimen Performing Laboratory Blood [facility] [address] [place] [address] Narrative Performing Lab *S[facility], [address] [place] [address] Mike Leyva MD, PhD ECHOCARDIOGRAM REPORT - SCAN (11/03/2017 2:54 PM)Venous doppler legs bilateral (11/03/2017 1:10 PM) Component Value Ref Range Ejection Fraction Specimen Performing Laboratory [facility] ECHO [facility] MKCKESSON CPACS Impressions Right Impression 1. There is no deep venous obstruction in the common femoral, profunda femoral, femoral, popliteal, posterior tibial or peroneal veins. 2. There is no superficial venous obstruction in the great saphenous vein. Left Impression 1. There is no deep venous obstruction in the common femoral, profunda femoral, femoral, popliteal, posterior tibial or peroneal veins. 2. There is no superficial venous obstruction in the great saphenous vein. Conclusions Summary Venous duplex imaging and compression of the bilateral lower extremities were performed. The veins were adequately visualized. The bilateral venous systems were patent and compressible with no evidence of thrombus. The venous Doppler waveforms were pulsatile indicating possible elevated right heart filling pressure . Signature Velocities are measured in cm/s ; Diameters are measured in cm Narrative [facility] - Lower Extremities DVT Study Demographics Patient NameMARIO CA,Date of Study 11/03/2017 TONYA SALGADO 57 Visit [id number] Male of 1960 Number Referring Malena Benites Number [id number] Physician Perforator Typist Zach Garza. InterpretingJ. MALIK LuceroT, Gloria BULLARD, RPPATRICIO Procedure Type of Study: Veins: Lower Extremities DVT Study, VENOUS DOPPLER LEG, BILATERAL. Indications for Study:Evaluate for DVT. Patient Status:Routine. Study Location:Portable. Technical Quality:Adequate visualization. Procedure Note Interface, External Ris In - 11/03/2017 6:43 PM CDT [facility] LAB - Lower Extremities DVT Study Demographics Patient Name MARIO CA, Date of Study 11/03/2017 TONYA SALGADO Age 57 Visit Number [id number] Gender Male Date of 1960 Number Referring Malena Hernandez Room Number [id number] Physician Perforator Typist Zach Garza. Interpreting MALIK SimmsT, ARDMS Physician , HERACLIO Procedure Type of Study: Veins: Lower Extremities DVT Study, VENOUS DOPPLER LEG, BILATERAL. Indications for Study:Evaluate for DVT. Patient Status:Routine. Study Location:Portable. Technical Quality:Adequate visualization. Impressions Right Impression 1. There is no deep venous obstruction in the common femoral, profunda femoral, femoral, popliteal, posterior tibial or peroneal veins. 2. There is no superficial venous obstruction in the great saphenous vein. Left Impression 1. There is no deep venous obstruction in the common femoral, profunda femoral, femoral, popliteal, posterior tibial or peroneal veins. 2. There is no superficial venous obstruction in the great saphenous vein. Conclusions Summary Venous duplex imaging and compression of the bilateral lower extremities were performed. The veins were adequately visualized. The bilateral venous systems were patent and compressible with no evidence of thrombus. The venous Doppler waveforms were pulsatile indicating possible elevated right heart filling pressure . Signature Velocities are measured in cm/s ; Diameters are measured in cm Procalcitonin (11/03/2017 11:25 AM) Component Value Ref Range Procalcitonin 0.60 (H) <0.05 ng/mL Specimen Performing Laboratory Blood - Line, Arterial [facility] [address] [address] Narrative SEPSIS RISK (ng/mL) Low:0.05-0.50 Intermediate: 0.51-2.00 High: >=2.01 2D Echo W/Doppler(CW/PW/Color) (11/03/2017 7:48 AM) Component Value Ref Range Ejection Fraction Specimen Performing Laboratory [facility] MK[facility] CPA Narrative Transthoracic Echocardiography Report (TTE) Demographics Patient NameMARIO CA, Date of Study11/03/2017 TONYA SALGADO Gender Male Visit [id number] Race Unknown Number [id number] Number Date of 1960 Referring Malena Meyers Physician Mary Age 57 year(s) SonographerCarlitos BECK Interpreting MD Marni Vanessa FEL Procedure Type of Study TTE procedure:2DECHO W DOPPLER(CW/PW/COLOR) (SIERRA) Indications:Known or suspected heart failure. Clinical History Atrial Fibrillation/flutter Congestive Heart Failure Coronary Artery Disease Hypertension Hypothyroidism S/P AICD S/P L Cath/coronary angio 09/17/16 S/P TV replacement (Medtronic De Leon II Tissue valve 33mm) HGB 8.7 HCT 27.8 % Contrast Medium: Definity. Height: 64 inches Weight: 77.56 kg (171 lbs) BSA: 1.83 m^2 BMI: 29.35 kg/m^2 HR: 59 bpm BP: 117/46 mmHg Summary probably large sized left pleural effusion is present. The estimated RA pressure by IVC dynamics >20mmHg . PV is not well visualized. 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 Global RV systolic function is moderately reduced . TV bioprosthesis is present . There is trace TV prosthesis regurgitation. Likely accetable TV prosthesis inflow gradients (DOI=1.89, mean gradient =4.28 mmHg). likely normal TV prosthesis function. Unable to estimate peak systolic PA pressure; inadequate TR velocity signal. No significant pericardial effusion is visualized. RA cavity size is hugely enlarged . Signature Findings Left Ventricle The left ventricle is chamber size (by vol index) is severely enlarged. Eccentric LV hypertrophy. LVEF by Sam's method of disk assessment is normal (>60%) . Grade 1 diastolic dysfunction (impaired relaxation and low-normal LA pressure). Left AtriumLA size is mildly enlarged . Right VentricleRV chamber size is moderately enlarged . Global RV systolic function is moderately reduced . Right Atrium RA cavity size is hugely enlarged . Aortic Valve Mild AoV cusp thickening. No evidence of aortic stenosis. No evidence of aortic regurgitation. Mitral Valve Mild to moderate mitral regurgitation. Mild MV leaflet thickening. MV leaflet mobility is normal . Tricuspid ValveTV bioprosthesis is present . There is trace TV prosthesis regurgitation. Likely accetable TV prosthesis inflow gradients (DOI=1.89, mean gradient=4.28 mmHg). likely normal TV prosthesis function. Unable to estimate peak systolic PA pressure; inadequate TR velocity signal. Pulmonic Valve PV is not well visualized. 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 PericardiumNo significant pericardial effusion is visualized. IVC/SVC/PA/PV/Pleuralprobably large sized left pleural effusion is present. The estimated RA pressure by IVC dynamics >20mmHg . Chambers/Structures Left Atrium LA Dimension: 6.19 cm LA Area: 26.4 cm^2 LA Volume: 67.67 ml LA Vol. Index: 37 ml/m^2 Left Ventricle LVIDd: 5.91 cm LVIDs: 4.27 cm LV Septum Diastolic: 1.22 cm LV PW Diastolic: 1.43 cm LV FS: 27.8 % LVEDV Sam's:191.72 ml LVESV Sam's:67.18 ml LVEDVI: 105 ml/m^ 2 LVEF Sam's: 65 % LVESVI: 37 ml /m^2 LVOT Diameter: 2.03 cm Vena Cava IVC Expirium: 2.9 cm Doppler/Quantitative Measurements Mitral Valve MV Peak E-Wave: 1.15 m/sPeak Gradient: 5.28 mmHg MV Dutch. Peak: Tissue Doppler E' Lateral Velocity: 0.13 m/s E/E': 8.68 Aortic Valve Peak Velocity: 1.88 m/sMean Velocity: 1.16 m/s Peak Gradient: 14.17 mmHgMean Gradient: 6.45 mmHg AV Area (continuity): 2.5 cm^2 AV VTI: 33.29 cm AV DVI: 0.77 LVOT Peak Velocity: 1.43 m/s Peak Gradient: 8.24 mmHg Mean Velocity: 0.92 m/s Mean Gradient: 3.99 mmHg LVOT Diameter: 2.03 cmLVOT VTI: 25.69 cm LVOT Area: 3.24 cm^2LVOT SV:83.1 ml LVOT CO: 4.9 l/minLVOT CI: 2.68 l/min/m^2 RVOT RVOT VTI (PW): 27.57 cm Tricuspid Valve TV Mean Gradient: 4.28 mmHg TR Mean Velocity: 0.92 m/s Procedure Note Interface, External Ris In - 11/03/2017 2:17 PM CDT Transthoracic Echocardiography Report (TTE) Demographics Patient Name MARIO CA, Date of Study 11/03/2017 TONYA SALGADO Gender Male Visit Number [id number] Race Unknown Room Number [id number] Number Date of 1960 Referring Malena Meyers Physician Mary Age 57 year(s) Perforator Typist Carlitos BECK Interpreting Dylan Ortega MD Fellow ANTOINE Marley Procedure Type of Study TTE procedure:2DECHO W DOPPLER(CW/PW/COLOR) ([facility]) Indications:Known or suspected heart failure. Clinical History Atrial Fibrillation/flutter Congestive Heart Failure Coronary Artery Disease Hypertension Hypothyroidism S/P AICD S/P L Cath/coronary angio 09/17/16 S/P TV replacement (Medtronic De Leon II Tissue valve 33mm) HGB 8.7 HCT 27.8 % Contrast Medium: Definity. Height: 64 inches Weight: 77.56 kg (171 lbs) BSA: 1.83 m^2 BMI: 29.35 kg/m^2 HR: 59 bpm BP: 117/46 mmHg Summary probably large sized left pleural effusion is present. The estimated RA pressure by IVC dynamics >20mmHg . PV is not well visualized. 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 Global RV systolic function is moderately reduced . TV bioprosthesis is present . There is trace TV prosthesis regurgitation. Likely accetable TV prosthesis inflow gradients (DOI=1.89, mean gradient =4.28 mmHg). likely normal TV prosthesis function. Unable to estimate peak systolic PA pressure; inadequate TR velocity signal. No significant pericardial effusion is visualized. RA cavity size is hugely enlarged . Signature Findings Left Ventricle The left ventricle is chamber size (by vol index) is severely enlarged. Eccentric LV hypertrophy. LVEF by Sam's method of disk assessment is normal (>60%) . Grade 1 diastolic dysfunction (impaired relaxation and low-normal LA pressure). Left Atrium LA size is mildly enlarged . Right Ventricle RV chamber size is moderately enlarged . Global RV systolic function is moderately reduced . Right Atrium RA cavity size is hugely enlarged . Aortic Valve Mild AoV cusp thickening. No evidence of aortic stenosis. No evidence of aortic regurgitation. Mitral Valve Mild to moderate mitral regurgitation. Mild MV leaflet thickening. MV leaflet mobility is normal . Tricuspid Valve TV bioprosthesis is present . There is trace TV prosthesis regurgitation. Likely accetable TV prosthesis inflow gradients (DOI=1.89, mean gradient=4.28 mmHg). likely normal TV prosthesis function. Unable to estimate peak systolic PA pressure; inadequate TR velocity signal. Pulmonic Valve PV is not well visualized. 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 Pericardium No significant pericardial effusion is visualized. IVC/SVC/PA/PV/Pleural probably large sized left pleural effusion is present. The estimated RA pressure by IVC dynamics >20mmHg . Chambers/Structures Left Atrium LA Dimension: 6.19 cm LA Area: 26.4 cm^2 LA Volume: 67.67 ml LA Vol. Index: 37 ml/m^2 Left Ventricle LVIDd: 5.91 cm LVIDs: 4.27 cm LV Septum Diastolic: 1.22 cm LV PW Diastolic: 1.43 cm LV FS: 27.8 % LVEDV Sam's:191.72 ml LVESV Sam's:67.18 ml LVEDVI: 105 ml/m^2 LVEF Sam's: 65 % LVESVI: 37 ml/m^2 LVOT Diameter: 2.03 cm Vena Cava IVC Expirium: 2.9 cm Doppler/Quantitative Measurements Mitral Valve MV Peak E-Wave: 1.15 m/s Peak Gradient: 5.28 mmHg MV Dutch. Peak: Tissue Doppler E' Lateral Velocity: 0.13 m/s E/E': 8.68 Aortic Valve Peak Velocity: 1.88 m/s Mean Velocity: 1.16 m/s Peak Gradient: 14.17 mmHg Mean Gradient: 6.45 mmHg AV Area (continuity): 2.5 cm^2 AV VTI: 33.29 cm AV DVI: 0.77 LVOT Peak Velocity: 1.43 m/s Peak Gradient: 8.24 mmHg Mean Velocity: 0.92 m/s Mean Gradient: 3.99 mmHg LVOT Diameter: 2.03 cm LVOT VTI: 25.69 cm LVOT Area: 3.24 cm^2 LVOT SV:83.1 ml LVOT CO: 4.9 l/min LVOT CI: 2.68 l/min/m^2 RVOT RVOT VTI (PW): 27.57 cm Tricuspid Valve TV Mean Gradient: 4.28 mmHg TR Mean Velocity: 0.92 m/s Troponin I (11/03/2017 6:32 AM)Only the most recent of3 resultswithin the time period is included. Component Value Ref Range Troponin I 0.05 (H) 0.00 - 0.03 ng/mL Specimen [place] [address] Narrative Troponin I (TnI) levels must be interpreted in the context of the presenting symptoms and the clinical findings. Elevated TnI levels indicate myocardial damage, but are not specific for ischemic heart disease. Elevated TnI levels are seen in patients with other cardiac conditions (including myocarditis and congestive heart failure), and slight TnI elevations occur in patients with other conditions, including sepsis, renal failure, acidosis, acute neurological disease, and persistent tachyarrhythmia. Hemodialysis (11/03/2017 5:46 AM) Osorio Adam RN 11/03/20175:46 AM Patient is intubated and intermittently sedated. Responsive to pain. S/p bronch. With Levophed 6 mcq/ min ongoing. Here to be dialyzed for 3 hours with UF goal of 3 L. The following most updated labs are as follows: Lab Results Component Value Date HEPBSAG Nonreactive 11/02/2017 Lab Results Component Value Date GLUCOSE 82 11/02/2017 CALCIUM 8.8 11/02/2017 NA 130 (L) 11/02/2017 K 5.2 (H) 11/02/2017 CO2 27 11/02/2017 CL 92 (L) 11/02/2017 BUN 81 (H) 11/02/2017 CREATININE 4.00 (H) 11/02/2017 Lab Results Component Value Date WBC 7.3 11/03/2017 HGB 8.7 (L) 11/03/2017 HCT 27.8 (L) 11/03/2017 MCV 86.1 11/03/2017 PLT 61 (L) 11/03/2017 Patient dialyzed for 3 hours with Net UF=3 L using the Right femoralaccess. Vital signs stable and well within the set parameters. Report given to FAISAL Lee. Patient was able to tolerate the treatment well. SPIN/CONCENTRATION CHARGE (11/03/2017 2:58 AM)Only the most recent of2 resultswithin the time period is included. Component Value Ref Range Concentration charged Done Specimen Performing Laboratory [address] [address] AFB culture + smear (11/03/2017 2:58 AM)Only the most recent of3 resultswithin the time period is included. Component Value Ref Range Result No acid-fast bacilli isolated in 42 days AFB Smear No acid fast bacilli seen Specimen Performing Laboratory [address] [address] Legionella culture (11/03/2017 2:58 AM) Component Value Ref Range Result No Legionella species isolated Specimen Performing Laboratory [address] [address] Bronchial culture + gram stain (11/03/2017 2:58 AM)Only the most recent of2 resultswithin the time period is included. Component Value Ref Range Result No growth Gram Stain Result <1+ WBCs Gram Stain Result No organisms seen Specimen Performing Laboratory [address] [address] Virus culture Expected virus: All (11/03/2017 2:58 AM) Component Value Ref Range Result No virus isolated Specimen Performing Laboratory [address] [address] Fungus culture + smear (11/03/2017 2:58 AM)Only the most recent of3 resultswithin the time period is included. Component Value Ref Range Result No fungus isolated in 28 days Fungus Smear No fungi seen Specimen Performing Laboratory [address] [address] Peripheral Blood Smear - Path Review (11/03/2017 1:50 AM) Component Value Ref Range RBC Morphology Hypochromasia Anisocytosis Polychromasia WBC Morphology See comment Platelet Morphology See comment Pathologist Review WBCs normal in number with rare atypical lymphocytes. Platelets decreased in number with increased number of large forms and mild platelet clumping with few small platelet aggregates identified. Numerical value may not reflect true platelet count. Pathologist: Filippo Winter MD (electronic signature) Specimen Performing Laboratory Blood [address] [address] CBC with platelet count + manual diff (11/03/2017 1:50 AM) Component Value Ref Range WBC 7.3 3.5 - 10.5 K/L RBC 3.23 (L) 4.63 - 6.08 M/L Hemoglobin 8.7 (L) 13.7 - 17.5 GM/DL Hematocrit 27.8 (L) 40.1 - 51.0 % MCV 86.1 79.0 - 92.2 fL MCH 26.9 25.7 - 32.2 pg MCHC 31.3 (L) 32.3 - 36.5 GM/DL RDW 17.9 (H) 11.6 - 14.4 % Platelets 61 (L)Comment: This is a corrected result. Previous 150 - 450 K/CU MM result was 28 K/CU MM on 11/03/2017 at 0335 CDT MPV 11.2 9.4 - 12.4 fL Comment: Unable to report due to abnormal Platelet population distribution. This is an appended report.These results have been appended to a previously final verified report. nRBC 0 0 - 0 /100 WBC Specimen Performing Laboratory Blood [address] [address] Iron, TIBC, % sat. (without ferritin) (11/03/2017 1:50 AM) Component Value Ref Range Iron 101 40 - 160 ug/dL TIBC 303 250 - 450 ug/dL Iron % Saturation 33 20 - 55 % Specimen Performing Laboratory Blood [address] [address] CBC with platelet count + manual diff (11/03/2017 1:50 AM) Specimen Performing Laboratory Blood Narrative The following orders were created for panel order CBC with platelet count + manual diff. Procedure Abnormality Status --------- ------ CBC with platelet count ...[[id number]]Abnormal Edited Result - FINAL Please view results for these tests on the individual orders. Rapid drug screen, urine (11/03/2017 1:50 AM) Component Value Ref Range Barbiturate Screen Negative Negative Benzodiazepine Screen Positive (A) Negative Cocaine (Metab.) Screen Negative Negative Methadone Screen Negative Negative Opiate Screen Positive (A) Negative Cannabinoid Screen Negative Negative Amph/Methamph Screen Negative Negative Phencyclidine Screen Negative Negative Oxycodone Screen Negative Negative Specimen Performing Laboratory Urine - Urine, [place] [address] Narrative DRUGCUTOFF CON[facility]. Cocaine 300 ng/mL Oewdefoltrg71 ng/mL Arvxgmeuoypmya243 ng/mL Barbiturate 200 ng/mL Ltkswhxpmptaw62 ng/mL Scpsda374 ng/mL Methadone 300 ng/mL Amphetamine/ 1000 ng/mL Methamphetamine Oxycodone 300 ng/mL This assay provides an unconfirmed qualitative test result for the clinical management of patients in emergency situations. Chain of custody not maintained. Some [id number] medications, as well as adulterants, may cause inaccurate results. Clinical correlation should be applied. A more comprehensive drug screen or confirmation of a detected drug may be performed upon request. Ferritin (11/03/2017 1:50 AM) Component Value Ref Range Ferritin 80 5 - 275 ng/mL Specimen [place] [address] CT brain without IV contrast portable (11/03/2017 1:00 AM) Specimen Performing Laboratory [employer] Narrative FINAL REPORT CT BRAIN WITHOUT IV CONTRAST - PORTABLE INDICATION: AMS TECHNIQUE: Noncontrast portable axial CT imaging was obtained from the vertex to the skull base. Axial images were reconstructed using a bone algorithm. DOSE REDUCTION: Dose modulation, iterative reconstruction, and/or weight-based adjustment of the mA/kV was utilized to reduce the radiation dose to as low as reasonably achievable. COMPARISON: None. FINDINGS: No discernible ischemic injury or parenchymal hemorrhage. Normal midline positioning. Ventricular configuration is unremarkable. No space-occupying lesion is present. There is no abnormal extra-axial fluid. Osseous structures are intact. Scattered paranasal sinus opacification and layering fluid likely secondary to intubation. The globes are proptotic. IMPRESSION: No acute intracranial abnormality. Signed: JR Olivares Robert MD Report Verified Date/Time:11/03/2017 01:03:15 Reading Location: [facility] B1 C013Y CT Body Reading Room Procedure Note Interface, External Ris In - 11/03/2017 1:05 AM CDT FINAL REPORT CT BRAIN WITHOUT IV CONTRAST - PORTABLE INDICATION: AMS TECHNIQUE: Noncontrast portable axial CT imaging was obtained from the vertex to the skull base. Axial images were reconstructed using a bone algorithm. DOSE REDUCTION: Dose modulation, iterative reconstruction, and/or weight-based adjustment of the mA/kV was utilized to reduce the radiation dose to as low as reasonably achievable. COMPARISON: None. FINDINGS: No discernible ischemic injury or parenchymal hemorrhage. Normal midline positioning. Ventricular configuration is unremarkable. No space-occupying lesion is present. There is no abnormal extra-axial fluid. Osseous structures are intact. Scattered paranasal sinus opacification and layering fluid likely secondary to intubation. The globes are proptotic. IMPRESSION: No acute intracranial abnormality. Signed: JR Olivares Robert MD Report Verified Date/Time: 11/03/2017 01:03:15 Reading Location: [facility] B1 C013Y CT Body Reading Room Protein, random urine (11/02/2017 11:36 PM) Component Value Ref Range Protein, Urine 62 (H) 0 - 14 mg/dL Specimen Performing Laboratory Urine - Urine, [address] [address] Eosinophil smear (11/02/2017 11:36 PM) Component Value Ref Range Eosinophil Smear No EOS seen No EOS seen Specimen Performing Laboratory Urine - Urine, [address] [address] Gram stain (11/02/2017 11:04 PM) Component Value Ref Range Gram Stain Result <1+ WBCs Gram Stain Result No organisms seen Specimen Performing Laboratory Body Fluid - Paracentesis [address] [address] Triglycerides, body fluid (11/02/2017 11:02 PM) Component Value Ref Range Triglycerides, Fluid 37 mg/dL Specimen Performing Laboratory Body Fluid - Paracentesis [address] [address] Narrative Reference Range:No Normals Assay performance has not been validated for this type of specimen. Lactate dehydrogenase (LDH), body fluid (11/02/2017 11:02 PM) Component Value Ref Range LDH, Fluid <90 U/L Specimen Performing Laboratory Body Fluid - Paracentesis [address] [address] Narrative Absence of reference range indicates that normals have not been defined. Assay performance has not been validated for this type of specimen. Amylase, body fluid (11/02/2017 11:02 PM) Component Value Ref Range Amylase, Fluid 30 U/L Specimen Performing Laboratory Body Fluid - Paracentesis [address] [address] Narrative Absence of reference range indicates that normals have not been defined. Assay performance has not been validated for this type of specimen. Hepatitis B surface antigen (11/02/2017 9:44 PM) Component Value Ref Range hepatitis B Surface Ag Nonreactive Nonreactive Specimen Performing Laboratory Blood [address] [address] Narrative For chronic HD patients, draw HBsAg with each admission then every 30 days. Hepatitis B core antibody, total (11/02/2017 9:33 PM) Component Value Ref Range Hep B Core Total Ab Nonreactive Nonreactive Specimen Performing Laboratory [address] [address] Hepatitis B surface antibody (11/02/2017 9:33 PM) Component Value Ref Range Hep B S Ab <8.0 <8.0 mIU/mL Specimen Performing Laboratory Blood [address] [address] Fibrinogen (11/02/2017 9:33 PM) Component Value Ref Range Fibrinogen 364 225 - 434 mg/dl Specimen Performing Laboratory [address] [address] Osmolality, urine (11/02/2017 9:28 PM) Component Value Ref Range Osmolality, Ur 316 40 - 1400 mOsm/kg Specimen Performing Laboratory Urine - Urine, [place] [address] [place] [address] TSH (11/02/2017 7:53 PM) Component Value Ref Range TSH 5.14 (H) 0.35 - 4.94 uIU/mL Specimen Performing Laboratory Blood [address] [address] Digoxin level (11/02/2017 7:53 PM) Component Value Ref Range Digoxin Lvl <0.3 (L) 0.8 - 2.0 ng/mL Specimen Performing Laboratory Blood [address] [address] Urea Nitrogen, random urine (11/02/2017 7:52 PM) Component Value Ref Range Urea Nitrogen, Ur 229 mg/dL Specimen Performing Laboratory Urine - Urine, [address] [address] Narrative Reference Range: No Normals Sodium, random urine (11/02/2017 7:52 PM) Component Value Ref Range Sodium Urine 74 meq/L Specimen Performing Laboratory Urine - Urine, [address] [address] Narrative Reference Range: No Normals Creatinine, random urine (11/02/2017 7:52 PM) Component Value Ref Range Creatinine, Ur 44.7 mg/dL Specimen Performing Laboratory Urine - Urine, [address] [address] Narrative Reference Range: No Normals Urinalysis w/Microscopic (11/02/2017 7:52 PM) Component Value Ref Range Color, UA [place] Clarity, UA Hazy Specific [employer], UA 1.009 1.001 - 1.035 pH, UA 5.0 5.0 - 8.0 Protein, UA 30 mg/dL (A) Negative Glucose, UA Negative Negative Ketones, UA Negative Negative Bilirubin, UA Negative Negative Blood, UA Large (A) Negative Nitrite, UA Negative Negative Leukocytes, UA Moderate (A) Negative Urobilinogen, UA 0.2 0.2 - 1.0 mg/dL RBC, UA 705 /HPF WBC, UA 14 /HPF Mucus Rare Squam Epithel, UA 2 /HPF Hyaline Casts, UA 15 /LPF Casts 10 /LPF Specimen Source Urine, [place] Specimen Performing Laboratory Urine - Urine, [address] [address] Urine culture (11/02/2017 7:52 PM) Component Value Ref Range Result No growth Specimen Performing Laboratory Urine - Urine, [address] [address] Ammonia (11/02/2017 7:28 PM) Component Value Ref Range Ammonia 60 18 - 72 mol/L Specimen Performing Laboratory Blood [address] [address] Blood culture (11/02/2017 7:25 PM)Only the most recent of2 resultswithin the time period is included. Component Value Ref Range Result No growth in 5 days Specimen Performing Laboratory Blood - Arm, [address] [address] Creatine Kinase (CK), Total and MB (11/02/2017 7:22 PM) Component Value Ref Range Total CK 41 29 - 200 U/L CK-MB 5.8 0.0 - 6.6 ng/mL MB Relative Index 14.1 % Specimen Performing Laboratory Blood [address] [address] Narrative CK-MB Reference Range: <6.7Normal 6.7-10.0Borderline >10.0 Abnormal RESP PANEL (11/02/2017 7:42 AM) Component Value Ref Range Scan Result Specimen Performing Laboratory Sputum [facility] [id number] [place] [address] ARRYTHMIA IMPLANT REPORT - SCAN (03/05/2017 7:40 AM)Only the most recent of2 resultswithin the time period is included.after 12/31/2016
--- OUTSIDE RECORDS SUMMARY | 2018-01-01 16:31 | XMS REPORT ---
:1960 [facility] Address [address] [place] [address] Dr. Powers [address] [place] [id number] Care Team Providers Name Role Phone MALENA VIERA LIZET Unavailable Unavailable ABILIO XIONG Unavailable Unavailable Problems This patient has no known problems. Allergies, Adverse Reactions, Alerts This patient has no known allergies or adverse reactions. Medications This patient has no known medications. Results Test Description Test Time Test Comments Text Results Atomic Results Result Comments AFB CULTURE + SMEAR 2017-12-16 13:04:00 Test Item Value Reference Range Comments CULTURE (BEAKER) (test nhym=9083) No acid-fast bacilli isolated in 42 days AFB SMEAR (BEAKER) (test pbio=988) No acid fast bacilli seen AFB CULTURE + [id number] 12:58:00 Test Item Value Reference Range Comments CULTURE (BEAKER) (test No acid-fast bacilli isolated ozcj=0074) in 42 days AFB SMEAR (BEAKER) (test No acid fast bacilli seen rwct=152) AFB CULTURE + [id number] 12:58:00 Test Item Value Reference Range Comments CULTURE (BEAKER) (test No acid-fast bacilli isolated ywzm=1377) in 42 days AFB SMEAR (BEAKER) (test No acid fast bacilli seen dztk=774) FUNGUS CULTURE + [id number] 15:41:00 Test Item Value Reference Range Comments CULTURE (BEAKER) (test No fungus isolated in 28 days pqiu=5202) FUNGUS SMEAR (BEAKER) (test No fungi seen xhyo=6521) FUNGUS CULTURE + [id number] 15:31:00 Test Item Value Reference Range Comments CULTURE (BEAKER) (test vuax=1874) <1+ Afsaneh albicans FUNGUS SMEAR (BEAKER) (test No fungi seen yuei=8245) FUNGUS CULTURE + [id number] 15:29:00 Test Item Value Reference Range Comments CULTURE (BEAKER) (test No fungus isolated in 28 days cvuv=5701) FUNGUS SMEAR (BEAKER) (test No fungi seen opdc=2296) VIRUS [id number] 08:45:00 Test Item Value Reference Range Comments CULTURE (BEAKER) (test wdvv=9966) No virus isolated CBC W/PLT COUNT & AUTO [id number] 07:48:00 Test Item Value Reference Range Comments WHITE BLOOD CELL COUNT (BEAKER) (test kjju=096) 5.3 K/ L 3.5-10.5 RED BLOOD CELL COUNT (BEAKER) (test pkyn=316) 2.95 M/ L 4.63-6.08 HEMOGLOBIN (BEAKER) (test mvyn=580) 8.2 GM/DL 13.7-17.5 HEMATOCRIT (BEAKER) (test wxhr=953) 27.5 % 40.1-51.0 MEAN CORPUSCULAR VOLUME (BEAKER) (test mebe=732) 93.2 fL 79.0-92.2 MEAN CORPUSCULAR HEMOGLOBIN (BEAKER) (test 27.8 pg 25.7-32.2 effa=241) MEAN CORPUSCULAR HEMOGLOBIN CONC (BEAKER) (test 29.8 GM/DL 32.3-36.5 aobs=596) RED CELL DISTRIBUTION WIDTH (BEAKER) (test 19.8 % 11.6-14.4 ehru=470) PLATELET COUNT (BEAKER) (test nutz=335) 85 K/CU MM 150-450 MEAN PLATELET VOLUME (BEAKER) (test jwtv=673) 10.2 fL 9.4-12.4 NUCLEATED RED BLOOD CELLS (BEAKER) (test 0 /100 WBC 0-0 dgss=947) NEUTROPHILS RELATIVE PERCENT (BEAKER) (test 69 % fdei=979) LYMPHOCYTES RELATIVE PERCENT (BEAKER) (test 11 % tpqg=065) MONOCYTES RELATIVE PERCENT (BEAKER) (test 16 % avhj=512) EOSINOPHILS RELATIVE PERCENT (BEAKER) (test 4 % wdas=381) BASOPHILS RELATIVE PERCENT (BEAKER) (test 0 % ecia=757) NEUTROPHILS ABSOLUTE COUNT (BEAKER) (test 3.65 K/ L 1.78-5.38 cocz=642) LYMPHOCYTES ABSOLUTE COUNT (BEAKER) (test 0.60 K/ L 1.32-3.57 veiz=541) MONOCYTES ABSOLUTE COUNT (BEAKER) (test emff=358) 0.84 K/ L 0.30-0.82 EOSINOPHILS ABSOLUTE COUNT (BEAKER) (test 0.21 K/ L 0.04-0.54 feks=340) BASOPHILS ABSOLUTE COUNT (BEAKER) (test qrey=444) 0.01 K/ L 0.01-0.08 IMMATURE GRANULOCYTES-RELATIVE PERCENT (BEAKER) 0 % 0-1 (test vpvx=8309) [id number] 07:00:00 Test Item Value Reference Range Comments PHOSPHORUS (BEAKER) (test lbsy=790) 4.0 mg/dL 2.3-4.7 [id number] 07:00:00 Test Item Value Reference Range Comments MAGNESIUM (BEAKER) (test orst=243) 1.8 mg/dL 1.6-2.6 BASIC METABOLIC [id number] 07:00:00 Test Item Value Reference Range Comments SODIUM (BEAKER) (test 136 meq/L 136-145 oytv=806) POTASSIUM (BEAKER) (test 4.2 meq/L 3.5-5.1 jrxk=147) CHLORIDE (BEAKER) (test 94 meq/L 98-107 jqey=361) CO2 (BEAKER) (test 32 meq/L 22-29 qpse=463) BLOOD UREA NITROGEN 53 mg/dL 7-21 (BEAKER) (test plqe=355) CREATININE (BEAKER) (test 1.62 mg/dL 0.57-1.25 takt=888) GLUCOSE RANDOM (BEAKER) 78 mg/dL 70-105 (test ldgv=704) CALCIUM (BEAKER) (test 8.5 mg/dL 8.4-10.2 zsmw=629) EGFR (BEAKER) (test 44 mL/min/1.73 sq m ESTIMATED GFR IS NOT zxni=0335) ACCURATE CREATININE CLEARANCE IN PREDICTING GLOMERULAR FILTRATION RATE. ESTIMATED GFR IS NOT APPLICABLE FOR DIALYSIS PATIENTS. HEPATIC FUNCTION [id number] 07:00:00 Test Item Value Reference Range Comments TOTAL PROTEIN (BEAKER) (test ctua=738) 7.2 gm/dL 6.0-8.3 ALBUMIN (BEAKER) (test fmhu=9527) 3.0 g/dL 3.5-5.0 BILIRUBIN TOTAL (BEAKER) (test legi=820) 1.3 mg/dL 0.2-1.2 BILIRUBIN DIRECT (BEAKER) (test uzep=726) 0.9 mg/dL 0.1-0.5 ALKALINE PHOSPHATASE (BEAKER) (test cdsj=473) 124 U/L 40-150 AST (SGOT) (BEAKER) (test gvmb=520) 25 U/L 5-34 ALT (SGPT) (BEAKER) (test exmg=142) 11 U/L 6-55 PROTHROMBIN [id number] 06:42:00 Test Item Value Reference Range Comments PROTIME (BEAKER) (test kizo=344) 16.8 seconds 11.7-14.7 INR (BEAKER) (test llnc=453) 1.4 <=5.9 RECOMMENDED COUMADIN/WARFARIN INR THERAPY RANGESSTANDARD DOSE: 2.0 - 3.0 Includes: PROPHYLAXIS forvenous thrombosis, systemic embolization; TREATMENT for venous thrombosis and/or pulmonary embolus.HIGH RISK: Target INR is 2.5-3.5 for patients with mechanical heart valves.LACTIC ACID, VENOUS, WHOLE [id number] 07:07:00 Test Item Value Reference Range Comments LACTATE BLOOD VENOUS (2) (BEAKER) (test 0.8 mmol/L 0.5-2.2 pnrr=2968) Effective 10/24/2015: Units/Reference Range ChangeNew: 0.5-2.2 mmol/L Previous: 5 -20 mg/[id number] 05:21:00 Test Item Value Reference Range Comments PHOSPHORUS (BEAKER) (test hmya=873) 3.7 mg/dL 2.3-4.7 [id number] 05:21:00 Test Item Value Reference Range Comments MAGNESIUM (BEAKER) (test pkui=310) 1.8 mg/dL 1.6-2.6 BASIC METABOLIC [id number] 05:21:00 Test Item Value Reference Range Comments SODIUM (BEAKER) (test 135 meq/L 136-145 rkpt=098) POTASSIUM (BEAKER) (test 4.2 meq/L 3.5-5.1 oyeb=306) CHLORIDE (BEAKER) (test 94 meq/L 98-107 twbg=949) CO2 (BEAKER) (test 32 meq/L 22-29 jpry=702) BLOOD UREA NITROGEN 53 mg/dL 7-21 (BEAKER) (test vvtn=370) CREATININE (BEAKER) (test 1.76 mg/dL 0.57-1.25 gqqc=774) GLUCOSE RANDOM (BEAKER) 76 mg/dL 70-105 (test xjez=935) CALCIUM (BEAKER) (test 8.5 mg/dL 8.4-10.2 fnvb=605) EGFR (BEAKER) (test 40 mL/min/1.73 sq m ESTIMATED GFR IS NOT vkpu=2804) ACCURATE CREATININE CLEARANCE IN PREDICTING GLOMERULAR FILTRATION RATE. ESTIMATED GFR IS NOT APPLICABLE FOR DIALYSIS PATIENTS. HEPATIC FUNCTION [id number] 05:21:00 Test Item Value Reference Range Comments TOTAL PROTEIN (BEAKER) (test fxle=062) 7.2 gm/dL 6.0-8.3 ALBUMIN (BEAKER) (test qcyf=8255) 3.0 g/dL 3.5-5.0 BILIRUBIN TOTAL (BEAKER) (test aeyl=469) 1.6 mg/dL 0.2-1.2 BILIRUBIN DIRECT (BEAKER) (test imrv=564) 0.9 mg/dL 0.1-0.5 ALKALINE PHOSPHATASE (BEAKER) (test ndgo=937) 127 U/L 40-150 AST (SGOT) (BEAKER) (test ywaz=754) 26 U/L 5-34 ALT (SGPT) (BEAKER) (test apqf=074) 11 U/L 6-55 CBC W/PLT COUNT & AUTO [id number] 05:04:00 Test Item Value Reference Range Comments WHITE BLOOD CELL COUNT (BEAKER) (test phdv=475) 6.0 K/ L 3.5-10.5 RED BLOOD CELL COUNT (BEAKER) (test rgbt=227) 2.88 M/ L 4.63-6.08 HEMOGLOBIN (BEAKER) (test sksk=112) 8.3 GM/DL 13.7-17.5 HEMATOCRIT (BEAKER) (test mehg=330) 26.9 % 40.1-51.0 MEAN CORPUSCULAR VOLUME (BEAKER) (test xnku=707) 93.4 fL 79.0-92.2 MEAN CORPUSCULAR HEMOGLOBIN (BEAKER) (test 28.8 pg 25.7-32.2 taaf=426) MEAN CORPUSCULAR HEMOGLOBIN CONC (BEAKER) (test 30.9 GM/DL 32.3-36.5 xjvh=432) RED CELL DISTRIBUTION WIDTH (BEAKER) (test 19.9 % 11.6-14.4 oqpd=065) PLATELET COUNT (BEAKER) (test ipuc=722) 85 K/CU MM 150-450 MEAN PLATELET VOLUME (BEAKER) (test arii=063) 11.1 fL 9.4-12.4 NUCLEATED RED BLOOD CELLS (BEAKER) (test 0 /100 WBC 0-0 dkhm=646) NEUTROPHILS RELATIVE PERCENT (BEAKER) (test 69 % aqkd=691) LYMPHOCYTES RELATIVE PERCENT (BEAKER) (test 11 % ifye=911) MONOCYTES RELATIVE PERCENT (BEAKER) (test 16 % hnma=499) EOSINOPHILS RELATIVE PERCENT (BEAKER) (test 4 % towc=986) BASOPHILS RELATIVE PERCENT (BEAKER) (test 0 % wjaa=026) NEUTROPHILS ABSOLUTE COUNT (BEAKER) (test 4.11 K/ L 1.78-5.38 hcgq=333) LYMPHOCYTES ABSOLUTE COUNT (BEAKER) (test 0.63 K/ L 1.32-3.57 rkrh=643) MONOCYTES ABSOLUTE COUNT (BEAKER) (test hyhc=691) 0.97 K/ L 0.30-0.82 EOSINOPHILS ABSOLUTE COUNT (BEAKER) (test 0.22 K/ L 0.04-0.54 vjkn=894) BASOPHILS ABSOLUTE COUNT (BEAKER) (test bdiz=733) 0.01 K/ L 0.01-0.08 IMMATURE GRANULOCYTES-RELATIVE PERCENT (BEAKER) 0 % 0-1 (test iish=5134) PROTHROMBIN [id number] 04:50:00 Test Item Value Reference Range Comments PROTIME (BEAKER) (test skdd=553) 16.9 seconds 11.7-14.7 INR (BEAKER) (test tssz=514) 1.4 <=5.9 RECOMMENDED COUMADIN/WARFARIN INR THERAPY RANGESSTANDARD DOSE: 2.0 - 3.0 Includes: PROPHYLAXIS forvenous thrombosis, systemic embolization; TREATMENT for venous thrombosis and/or pulmonary embolus.HIGH RISK: Target INR is 2.5-3.5 for patients with mechanical heart valves.[id number] 07:40:00 Test Item Value Reference Range Comments PHOSPHORUS (BEAKER) (test gcak=517) 4.1 mg/dL 2.3-4.7 [id number] 07:40:00 Test Item Value Reference Range Comments MAGNESIUM (BEAKER) (test nmoa=223) 2.0 mg/dL 1.6-2.6 BASIC METABOLIC [id number] 07:40:00 Test Item Value Reference Range Comments SODIUM (BEAKER) (test 135 meq/L 136-145 zumz=321) POTASSIUM (BEAKER) (test 4.0 meq/L 3.5-5.1 ppji=254) CHLORIDE (BEAKER) (test 93 meq/L 98-107 lvkp=736) CO2 (BEAKER) (test 32 meq/L 22-29 dsic=470) BLOOD UREA NITROGEN 53 mg/dL 7-21 (BEAKER) (test onwh=445) CREATININE (BEAKER) (test 1.92 mg/dL 0.57-1.25 plpc=428) GLUCOSE RANDOM (BEAKER) 73 mg/dL 70-105 (test vzmc=214) CALCIUM (BEAKER) (test 8.7 mg/dL 8.4-10.2 lefx=571) EGFR (BEAKER) (test 36 mL/min/1.73 sq m ESTIMATED GFR IS NOT cfcq=8327) ACCURATE CREATININE CLEARANCE IN PREDICTING GLOMERULAR FILTRATION RATE. ESTIMATED GFR IS NOT APPLICABLE FOR DIALYSIS PATIENTS. HEPATIC FUNCTION [id number] 07:40:00 Test Item Value Reference Range Comments TOTAL PROTEIN (BEAKER) (test xhdg=839) 7.4 gm/dL 6.0-8.3 ALBUMIN (BEAKER) (test eyha=6044) 3.1 g/dL 3.5-5.0 BILIRUBIN TOTAL (BEAKER) (test jdad=641) 1.3 mg/dL 0.2-1.2 BILIRUBIN DIRECT (BEAKER) (test qcrf=631) 0.9 mg/dL 0.1-0.5 ALKALINE PHOSPHATASE (BEAKER) (test uhic=582) 131 U/L 40-150 AST (SGOT) (BEAKER) (test hvha=373) 27 U/L 5-34 ALT (SGPT) (BEAKER) (test wrwf=297) 12 U/L 6-55 PROTHROMBIN [id number] 07:22:00 Test Item Value Reference Range Comments PROTIME (BEAKER) (test kqzb=306) 16.6 seconds 11.7-14.7 INR (BEAKER) (test wekj=537) 1.3 <=5.9 RECOMMENDED COUMADIN/WARFARIN INR THERAPY RANGESSTANDARD DOSE: 2.0 - 3.0 Includes: PROPHYLAXIS forvenous thrombosis, systemic embolization; TREATMENT for venous thrombosis and/or pulmonary embolus.HIGH RISK: Target INR is 2.5-3.5 for patients with mechanical heart valves.CBC W/PLT COUNT & AUTO [id number] 07:20:00 Test Item Value Reference Range Comments WHITE BLOOD CELL COUNT (BEAKER) (test drbl=370) 6.7 K/ L 3.5-10.5 RED BLOOD CELL COUNT (BEAKER) (test fvtg=092) 2.99 M/ L 4.63-6.08 HEMOGLOBIN (BEAKER) (test ojyz=878) 8.6 GM/DL 13.7-17.5 HEMATOCRIT (BEAKER) (test qvik=922) 28.0 % 40.1-51.0 MEAN CORPUSCULAR VOLUME (BEAKER) (test dnvx=995) 93.6 fL 79.0-92.2 MEAN CORPUSCULAR HEMOGLOBIN (BEAKER) (test 28.8 pg 25.7-32.2 xfkc=784) MEAN CORPUSCULAR HEMOGLOBIN CONC (BEAKER) (test 30.7 GM/DL 32.3-36.5 xmyu=171) RED CELL DISTRIBUTION WIDTH (BEAKER) (test 20.5 % 11.6-14.4 sdlx=969) PLATELET COUNT (BEAKER) (test sedc=049) 89 K/CU MM 150-450 MEAN PLATELET VOLUME (BEAKER) (test ecms=491) 11.9 fL 9.4-12.4 NUCLEATED RED BLOOD CELLS (BEAKER) (test 0 /100 WBC 0-0 lznt=004) NEUTROPHILS RELATIVE PERCENT (BEAKER) (test 76 % bnry=612) LYMPHOCYTES RELATIVE PERCENT (BEAKER) (test 8 % gepw=404) MONOCYTES RELATIVE PERCENT (BEAKER) (test 13 % wjbr=775) EOSINOPHILS RELATIVE PERCENT (BEAKER) (test 3 % gyzs=477) BASOPHILS RELATIVE PERCENT (BEAKER) (test 0 % bhiy=029) NEUTROPHILS ABSOLUTE COUNT (BEAKER) (test 5.07 K/ L 1.78-5.38 ubjz=088) LYMPHOCYTES ABSOLUTE COUNT (BEAKER) (test 0.54 K/ L 1.32-3.57 hwks=773) MONOCYTES ABSOLUTE COUNT (BEAKER) (test dioa=888) 0.90 K/ L 0.30-0.82 EOSINOPHILS ABSOLUTE COUNT (BEAKER) (test 0.19 K/ L 0.04-0.54 osjs=949) BASOPHILS ABSOLUTE COUNT (BEAKER) (test btwg=615) 0.00 K/ L 0.01-0.08 IMMATURE GRANULOCYTES-RELATIVE PERCENT (BEAKER) 0 % 0-1 (test cfkq=0553) RAD, ABDOMEN/KUB, 1 VIEW [id number] 22:01:00Reason for exam:->Abdominal pain, distensionFINAL REPORT EXAMINATION: SUPINE ABDOMEN CLINICAL INDICATION: Abdominal distention and pain IMPRESSION: Compared with , abdominal CT 09/07/2016 Increased attenuation is again noted throughout the abdomen and pelvis compatible with ascites. The bowel gas pattern is nonspecific. Evaluation for free air below the diaphragm and air-fluid levels within the bowel is limited by supine patient positioning. Abdominal CT could be performed for further evaluation if clinically warranted. Signed: Brea Larkin Verified Date/Time: 11/17/2017 22:01:55 Reading Location: [address] Reading Room RAD, CHEST, 1 VIEW, NON [id number] 11:17: 00Reason for exam:->chfShould this be performed at the bedside?->YesFINAL REPORT Chest one view compared to November 07 Discussion: Left chest ICD, cardiac valve replacement, cardiac prominence, pulmonary congestion, bilateral small effusions are noted. No pneumothorax. IMPRESSIONS: Interstitial congestion appears worse. Signed: Mamie KirbyVerified Date/Time: 11/17/2017 11:17:58 Reading Location: [facility] Reading Room CBC W/PLT COUNT & AUTO [id number] 05:57:00 Test Item Value Reference Range Comments WHITE BLOOD CELL COUNT (BEAKER) (test ycqo=539) 7.0 K/ L 3.5-10.5 RED BLOOD CELL COUNT (BEAKER) (test lizu=555) 3.06 M/ L 4.63-6.08 HEMOGLOBIN (BEAKER) (test yuez=092) 8.5 GM/DL 13.7-17.5 HEMATOCRIT (BEAKER) (test hkbn=923) 28.1 % 40.1-51.0 MEAN CORPUSCULAR VOLUME (BEAKER) (test fruw=940) 91.8 fL 79.0-92.2 MEAN CORPUSCULAR HEMOGLOBIN (BEAKER) (test 27.8 pg 25.7-32.2 qmyx=376) MEAN CORPUSCULAR HEMOGLOBIN CONC (BEAKER) (test 30.2 GM/DL 32.3-36.5 kztx=107) RED CELL DISTRIBUTION WIDTH (BEAKER) (test 19.7 % 11.6-14.4 cwfu=554) PLATELET COUNT (BEAKER) (test tmzu=942) 89 K/CU MM 150-450 MEAN PLATELET VOLUME (BEAKER) (test tudm=757) 10.5 fL 9.4-12.4 NUCLEATED RED BLOOD CELLS (BEAKER) (test 0 /100 WBC 0-0 pqfz=907) NEUTROPHILS RELATIVE PERCENT (BEAKER) (test 75 % rhso=297) LYMPHOCYTES RELATIVE PERCENT (BEAKER) (test 9 % ncox=221) MONOCYTES RELATIVE PERCENT (BEAKER) (test 13 % aqpq=175) EOSINOPHILS RELATIVE PERCENT (BEAKER) (test 3 % pxme=553) BASOPHILS RELATIVE PERCENT (BEAKER) (test 0 % mvmd=903) NEUTROPHILS ABSOLUTE COUNT (BEAKER) (test 5.25 K/ L 1.78-5.38 aasr=788) LYMPHOCYTES ABSOLUTE COUNT (BEAKER) (test 0.61 K/ L 1.32-3.57 qvqd=236) MONOCYTES ABSOLUTE COUNT (BEAKER) (test yzmt=705) 0.92 K/ L 0.30-0.82 EOSINOPHILS ABSOLUTE COUNT (BEAKER) (test 0.23 K/ L 0.04-0.54 lvit=299) BASOPHILS ABSOLUTE COUNT (BEAKER) (test znyi=218) 0.01 K/ L 0.01-0.08 IMMATURE GRANULOCYTES-RELATIVE PERCENT (BEAKER) 0 % 0-1 (test ohxy=0618) BLOOD GAS, [id number] 05:56:00 Test Item Value Reference Range Comments PH ARTERIAL (BEAKER) (test fgkn=505) 7.41 7.35-7.45 PCO2 ARTERIAL (BEAKER) (test zguc=993) 57 mmHg 35-45 PO2 ARTERIAL (BEAKER) (test icit=521) 89 mmHg 80-90 O2 SATURATION ARTERIAL (BEAKER) (test dfqs=363) 96.7 % 96.0-97.0 HCO3 ARTERIAL (BEAKER) (test ywgu=276) 36 mmol/L 21-29 BASE EXCESS ARTERIAL (BEAKER) (test rqok=342) 9.7 mmol/L -2.0-3.0 PATIENT TEMPERATURE (BEAKER) (test lslt=5664) 37.0 C FIO2 (BEAKER) (test magw=4868) 36.0 % Draw ABG first thing in AM once patient takes off BiPAP to start his day.[id number] 05:50:00 Test Item Value Reference Range Comments PHOSPHORUS (BEAKER) (test cevs=873) 4.2 mg/dL 2.3-4.7 [id number] 05:50:00 Test Item Value Reference Range Comments MAGNESIUM (BEAKER) (test kjql=802) 2.0 mg/dL 1.6-2.6 BASIC METABOLIC [id number] 05:50:00 Test Item Value Reference Range Comments SODIUM (BEAKER) (test 135 meq/L 136-145 lmkb=324) POTASSIUM (BEAKER) (test 4.1 meq/L 3.5-5.1 xcnh=133) CHLORIDE (BEAKER) (test 94 meq/L 98-107 uujb=590) CO2 (BEAKER) (test 32 meq/L 22-29 dirg=897) BLOOD UREA NITROGEN 51 mg/dL 7-21 (BEAKER) (test mjxy=552) CREATININE (BEAKER) (test 1.79 mg/dL 0.57-1.25 wtvi=282) GLUCOSE RANDOM (BEAKER) 79 mg/dL 70-105 (test mnsz=241) CALCIUM (BEAKER) (test 8.6 mg/dL 8.4-10.2 fldp=374) EGFR (BEAKER) (test 39 mL/min/1.73 sq m ESTIMATED GFR IS NOT tias=6719) ACCURATE CREATININE CLEARANCE IN PREDICTING GLOMERULAR FILTRATION RATE. ESTIMATED GFR IS NOT APPLICABLE FOR DIALYSIS PATIENTS. HEPATIC FUNCTION [id number] 05:50:00 Test Item Value Reference Range Comments TOTAL PROTEIN (BEAKER) (test eaow=610) 7.3 gm/dL 6.0-8.3 ALBUMIN (BEAKER) (test xdps=1460) 3.1 g/dL 3.5-5.0 BILIRUBIN TOTAL (BEAKER) (test rkwo=580) 1.3 mg/dL 0.2-1.2 BILIRUBIN DIRECT (BEAKER) (test bkwg=374) 0.8 mg/dL 0.1-0.5 ALKALINE PHOSPHATASE (BEAKER) (test hayf=309) 135 U/L 40-150 AST (SGOT) (BEAKER) (test cogn=587) 29 U/L 5-34 ALT (SGPT) (BEAKER) (test dtyd=867) 11 U/L 6-55 PROTHROMBIN [id number] 05:35:00 Test Item Value Reference Range Comments PROTIME (BEAKER) (test mndr=947) 16.7 seconds 11.7-14.7 INR (BEAKER) (test jvkn=629) 1.4 <=5.9 RECOMMENDED COUMADIN/WARFARIN INR THERAPY RANGESSTANDARD DOSE: 2.0 - 3.0 Includes: PROPHYLAXIS forvenous thrombosis, systemic embolization; TREATMENT for venous thrombosis and/or pulmonary embolus.HIGH RISK: Target INR is 2.5-3.5 for patients with mechanical heart valves.PROTHROMBIN [id number] 05:38: 00 Test Item Value Reference Range Comments PROTIME (BEAKER) (test mqli=252) 16.9 seconds 11.7-14.7 INR (BEAKER) (test svza=365) 1.4 <=5.9 RECOMMENDED COUMADIN/WARFARIN INR THERAPY RANGESSTANDARD DOSE: 2.0 - 3.0 Includes: PROPHYLAXIS forvenous thrombosis, systemic embolization; TREATMENT for venous thrombosis and/or pulmonary embolus.HIGH RISK: Target INR is 2.5-3.5 for patients with mechanical heart valves.[id number] 05:35:00 Test Item Value Reference Range Comments PHOSPHORUS (BEAKER) (test ivyn=387) 3.8 mg/dL 2.3-4.7 [id number] 05:35:00 Test Item Value Reference Range Comments MAGNESIUM (BEAKER) (test gkxf=740) 2.0 mg/dL 1.6-2.6 BASIC METABOLIC [id number] 05:35:00 Test Item Value Reference Range Comments SODIUM (BEAKER) (test 135 meq/L 136-145 fywo=457) POTASSIUM (BEAKER) (test 4.1 meq/L 3.5-5.1 ofro=053) CHLORIDE (BEAKER) (test 94 meq/L 98-107 fqej=926) CO2 (BEAKER) (test 30 meq/L 22-29 gmcn=357) BLOOD UREA NITROGEN 49 mg/dL 7-21 (BEAKER) (test tfgo=759) CREATININE (BEAKER) (test 1.77 mg/dL 0.57-1.25 fvjy=112) GLUCOSE RANDOM (BEAKER) 80 mg/dL 70-105 (test xxnb=008) CALCIUM (BEAKER) (test 8.6 mg/dL 8.4-10.2 kvea=444) EGFR (BEAKER) (test 40 mL/min/1.73 sq m ESTIMATED GFR IS NOT orqn=6678) ACCURATE CREATININE CLEARANCE IN PREDICTING GLOMERULAR FILTRATION RATE. ESTIMATED GFR IS NOT APPLICABLE FOR DIALYSIS PATIENTS. HEPATIC FUNCTION [id number] 05:35:00 Test Item Value Reference Range Comments TOTAL PROTEIN (BEAKER) (test xius=730) 7.0 gm/dL 6.0-8.3 ALBUMIN (BEAKER) (test hvin=4287) 3.0 g/dL 3.5-5.0 BILIRUBIN TOTAL (BEAKER) (test vgmm=054) 1.7 mg/dL 0.2-1.2 BILIRUBIN DIRECT (BEAKER) (test isit=400) 1.1 mg/dL 0.1-0.5 ALKALINE PHOSPHATASE (BEAKER) (test frbc=657) 127 U/L 40-150 AST (SGOT) (BEAKER) (test vfaw=884) 28 U/L 5-34 ALT (SGPT) (BEAKER) (test gyxy=867) 11 U/L 6-55 CBC W/PLT COUNT & AUTO [id number] 05:16:00 Test Item Value Reference Range Comments WHITE BLOOD CELL COUNT (BEAKER) (test utpf=067) 7.3 K/ L 3.5-10.5 RED BLOOD CELL COUNT (BEAKER) (test luux=383) 3.10 M/ L 4.63-6.08 HEMOGLOBIN (BEAKER) (test bqad=811) 8.6 GM/DL 13.7-17.5 HEMATOCRIT (BEAKER) (test wvum=717) 28.4 % 40.1-51.0 MEAN CORPUSCULAR VOLUME (BEAKER) (test zyfc=594) 91.6 fL 79.0-92.2 MEAN CORPUSCULAR HEMOGLOBIN (BEAKER) (test 27.7 pg 25.7-32.2 qlog=603) MEAN CORPUSCULAR HEMOGLOBIN CONC (BEAKER) (test 30.3 GM/DL 32.3-36.5 iodw=051) RED CELL DISTRIBUTION WIDTH (BEAKER) (test 19.7 % 11.6-14.4 jqba=226) PLATELET COUNT (BEAKER) (test nijg=088) 110 K/CU MM 150-450 MEAN PLATELET VOLUME (BEAKER) (test gyye=478) 10.6 fL 9.4-12.4 NUCLEATED RED BLOOD CELLS (BEAKER) (test 0 /100 WBC 0-0 hsep=733) NEUTROPHILS RELATIVE PERCENT (BEAKER) (test 78 % bxme=527) LYMPHOCYTES RELATIVE PERCENT (BEAKER) (test 9 % xsng=928) MONOCYTES RELATIVE PERCENT (BEAKER) (test 11 % kgam=306) EOSINOPHILS RELATIVE PERCENT (BEAKER) (test 3 % rpln=945) BASOPHILS RELATIVE PERCENT (BEAKER) (test 0 % gmxr=300) NEUTROPHILS ABSOLUTE COUNT (BEAKER) (test 5.68 K/ L 1.78-5.38 dgir=982) LYMPHOCYTES ABSOLUTE COUNT (BEAKER) (test 0.66 K/ L 1.32-3.57 juzf=390) MONOCYTES ABSOLUTE COUNT (BEAKER) (test 0.77 K/ L 0.30-0.82 mhoj=622) EOSINOPHILS ABSOLUTE COUNT (BEAKER) (test 0.18 K/ L 0.04-0.54 chuk=014) BASOPHILS ABSOLUTE COUNT (BEAKER) (test 0.01 K/ L 0.01-0.08 xkso=108) IMMATURE GRANULOCYTES-RELATIVE PERCENT (BEAKER) 0 % 0-1 (test lyia=9340) POCT-GLUCOSE [id number] 22:27:00 Test Item Value Reference Range Comments POC-GLUCOSE METER (VAZATAAKER) 100 mg/dL 70-110 TESTED AT [facility] [address] (test pecd=0702) [facility] [address] SPUTUM CULTURE + GRAM [id number] 15:00:00 Test Item Value Reference Range Comments CULTURE (BEAKER) (test METHICILLIN RESISTANT 2+ Methicillin rity=4234) STAPHYLOCOCCUS AUREUS resistant Staphylococcus aureus Clindamycin (test code=10) Erythromycin (test code=4) Linezolid (test code=40) Nitrofurantoin (test code=23) Oxacillin (test code=14) Rifampin (test code=43) Tetracycline (test code=2) Trimethoprim + Sulfamethoxazole (test code=47) Vancomycin (test code=13) CULTURE (VAZATAAKER) (test AEROMONAS SPECIES 2+ Aeromonas species wsdj=5982) Amikacin (test code=1) Susceptible 0-16 , Resistant <0 or >16 Aztreonam (test code=32) Susceptible 0-4 , Resistant <0 or >4 Cefepime (test code=51) Susceptible <=2 , Dose Dependent Susceptible >2 , Resistant Ceftazidime (test Susceptible 0-4 , code=27) Resistant <0 or >4 Ceftriaxone (test Susceptible 0-1 , code=52) Resistant <0 or >1 Ciprofloxacin (test Susceptible 0-1 , code=7) Resistant <0 or >1 Ertapenem (test code=38) Susceptible 0-0.5 , Resistant <0 or >.5 Gentamicin (test Susceptible 0-4 , code=18) Resistant <0 or >4 Imipenem (test code=19) Susceptible 0-1 , Resistant <0 or >1 Levofloxacin (test Susceptible 0-2 , code=22) Resistant <0 or >2 Meropenem (test code=34) Susceptible 0-4 , Resistant <0 or >4 Piperacillin + Susceptible 0-16 , Tazobactam (test Resistant <0 or code=29) >16 Tetracycline (test Susceptible 0-4 , code=2) Resistant <0 or >4 Tobramycin (test Susceptible 0-4 , code=25) Resistant <0 or >4 Trimethoprim + Susceptible 0-40 , Sulfamethoxazole (test Resistant <0 or code=47) >40 GRAM STAIN RESULT 1+ White blood cells (BEAKER) (test seen gnpz=8935) GRAM STAIN RESULT 5-10 epithelial cells (BEAKER) (test tbpk=401434) GRAM STAIN RESULT 3+ gram negative rods (BEAKER) (test tere=395275) GRAM STAIN RESULT <1+ gram positive (BEAKER) (test cocci in clusters bxnl=975828) GRAM STAIN RESULT 1+ yeast (BEAKER) (test efua=682080) 2+ Normal respiratory arsalan presentLACTIC ACID, VENOUS, WHOLE [id number] 07 :03:00 Test Item Value Reference Range Comments LACTATE BLOOD VENOUS (2) (BEAKER) (test 0.9 mmol/L 0.5-2.2 gash=5724) Effective 10/24/2015: Units/Reference Range ChangeNew: 0.5-2.2 mmol/L Previous: 5 -20 mg/[id number] 06:36:00 Test Item Value Reference Range Comments PHOSPHORUS (BEAKER) (test qmnz=230) 3.7 mg/dL 2.3-4.7 [id number] 06:36:00 Test Item Value Reference Range Comments MAGNESIUM (BEAKER) (test utxi=143) 2.1 mg/dL 1.6-2.6 BASIC METABOLIC [id number] 06:36:00 Test Item Value Reference Range Comments SODIUM (BEAKER) (test 136 meq/L 136-145 eegd=446) POTASSIUM (BEAKER) (test 4.2 meq/L 3.5-5.1 yzja=146) CHLORIDE (BEAKER) (test 94 meq/L 98-107 prgj=382) CO2 (BEAKER) (test 34 meq/L 22-29 aqfa=705) BLOOD UREA NITROGEN 45 mg/dL 7-21 (BEAKER) (test uxbl=496) CREATININE (BEAKER) (test 1.82 mg/dL 0.57-1.25 yayu=753) GLUCOSE RANDOM (BEAKER) 75 mg/dL 70-105 (test qrfn=316) CALCIUM (BEAKER) (test 8.5 mg/dL 8.4-10.2 pibs=163) EGFR (BEAKER) (test 39 mL/min/1.73 sq m ESTIMATED GFR IS NOT agio=7594) ACCURATE CREATININE CLEARANCE IN PREDICTING GLOMERULAR FILTRATION RATE. ESTIMATED GFR IS NOT APPLICABLE FOR DIALYSIS PATIENTS. HEPATIC FUNCTION [id number] 06:36:00 Test Item Value Reference Range Comments TOTAL PROTEIN (BEAKER) (test wsyb=869) 6.9 gm/dL 6.0-8.3 ALBUMIN (BEAKER) (test dwdy=9781) 3.0 g/dL 3.5-5.0 BILIRUBIN TOTAL (BEAKER) (test rccr=480) 1.2 mg/dL 0.2-1.2 BILIRUBIN DIRECT (BEAKER) (test gfdw=139) 0.8 mg/dL 0.1-0.5 ALKALINE PHOSPHATASE (BEAKER) (test pztu=058) 128 U/L 40-150 AST (SGOT) (BEAKER) (test fpnh=262) 29 U/L 5-34 ALT (SGPT) (BEAKER) (test hvif=955) 11 U/L 6-55 PROTHROMBIN TIME/[id number] 06:13:00 Test Item Value Reference Range Comments PROTIME (BEAKER) (test kurr=209) 16.5 seconds 11.7-14.7 INR (BEAKER) (test kdgp=699) 1.3 <=5.9 RECOMMENDED COUMADIN/WARFARIN INR THERAPY RANGESSTANDARD DOSE: 2.0 - 3.0 Includes: PROPHYLAXIS forvenous thrombosis, systemic embolization; TREATMENT for venous thrombosis and/or pulmonary embolus.HIGH RISK: Target INR is 2.5-3.5 for patients with mechanical heart valves.CBC W/PLT COUNT & AUTO [id number] 06:06:00 Test Item Value Reference Range Comments WHITE BLOOD CELL COUNT (BEAKER) (test ojms=647) 5.6 K/ L 3.5-10.5 RED BLOOD CELL COUNT (BEAKER) (test ahxv=188) 2.74 M/ L 4.63-6.08 HEMOGLOBIN (BEAKER) (test rfhd=993) 7.5 GM/DL 13.7-17.5 HEMATOCRIT (BEAKER) (test hvjh=953) 24.8 % 40.1-51.0 MEAN CORPUSCULAR VOLUME (BEAKER) (test alzp=425) 90.5 fL 79.0-92.2 MEAN CORPUSCULAR HEMOGLOBIN (BEAKER) (test 27.4 pg 25.7-32.2 ofph=208) MEAN CORPUSCULAR HEMOGLOBIN CONC (BEAKER) (test 30.2 GM/DL 32.3-36.5 zhpb=328) RED CELL DISTRIBUTION WIDTH (BEAKER) (test 19.6 % 11.6-14.4 krwc=768) PLATELET COUNT (BEAKER) (test twed=324) 89 K/CU MM 150-450 MEAN PLATELET VOLUME (BEAKER) (test jojd=336) 10.6 fL 9.4-12.4 NUCLEATED RED BLOOD CELLS (BEAKER) (test 0 /100 WBC 0-0 vkpg=556) NEUTROPHILS RELATIVE PERCENT (BEAKER) (test 73 % diwb=617) LYMPHOCYTES RELATIVE PERCENT (BEAKER) (test 12 % amvr=270) MONOCYTES RELATIVE PERCENT (BEAKER) (test 11 % ilne=978) EOSINOPHILS RELATIVE PERCENT (BEAKER) (test 3 % izfs=805) BASOPHILS RELATIVE PERCENT (BEAKER) (test 0 % hzjl=113) NEUTROPHILS ABSOLUTE COUNT (BEAKER) (test 4.06 K/ L 1.78-5.38 qtqb=439) LYMPHOCYTES ABSOLUTE COUNT (BEAKER) (test 0.68 K/ L 1.32-3.57 dipk=520) MONOCYTES ABSOLUTE COUNT (BEAKER) (test qymx=118) 0.63 K/ L 0.30-0.82 EOSINOPHILS ABSOLUTE COUNT (BEAKER) (test 0.14 K/ L 0.04-0.54 oslo=601) BASOPHILS ABSOLUTE COUNT (BEAKER) (test usub=700) 0.02 K/ L 0.01-0.08 IMMATURE GRANULOCYTES-RELATIVE PERCENT (BEAKER) 1 % 0-1 (test evwx=0064) POCT-GLUCOSE [id number] 18:08:00 Test Item Value Reference Range Comments POC-GLUCOSE METER (BEAKER) 117 mg/dL 70-110 TESTED AT [facility] [address], [place] (test ykfe=3023) [facility] [id number] B-TYPE NATRIURETIC FACTOR (BNP)2017-11-14 10:59:00 Test Item Value Reference Range Comments B-TYPE NATRIURETIC PEPTIDE (BEAKER) (test 730 pg/mL 0-100 uibd=822) [id number] 05:04:00 Test Item Value Reference Range Comments PHOSPHORUS (BEAKER) (test dejg=958) 2.8 mg/dL 2.3-4.7 [id number] 05:04:00 Test Item Value Reference Range Comments MAGNESIUM (BEAKER) (test palf=509) 2.0 mg/dL 1.6-2.6 BASIC METABOLIC [id number] 05:04:00 Test Item Value Reference Range Comments SODIUM (BEAKER) (test 136 meq/L 136-145 fwod=232) POTASSIUM (BEAKER) (test 4.0 meq/L 3.5-5.1 zrpn=585) CHLORIDE (BEAKER) (test 95 meq/L 98-107 azak=937) CO2 (BEAKER) (test 30 meq/L 22-29 ivef=593) BLOOD UREA NITROGEN 38 mg/dL 7-21 (BEAKER) (test wnpd=428) CREATININE (BEAKER) (test 1.73 mg/dL 0.57-1.25 eavu=509) GLUCOSE RANDOM (BEAKER) 79 mg/dL 70-105 (test yytn=279) CALCIUM (BEAKER) (test 8.2 mg/dL 8.4-10.2 wklz=574) EGFR (BEAKER) (test 41 mL/min/1.73 sq m ESTIMATED GFR IS NOT mcnv=2137) ACCURATE CREATININE CLEARANCE IN PREDICTING GLOMERULAR FILTRATION RATE. ESTIMATED GFR IS NOT APPLICABLE FOR DIALYSIS PATIENTS. HEPATIC FUNCTION [id number] 05:04:00 Test Item Value Reference Range Comments TOTAL PROTEIN (BEAKER) (test enjf=353) 6.3 gm/dL 6.0-8.3 ALBUMIN (BEAKER) (test ibup=4188) 2.8 g/dL 3.5-5.0 BILIRUBIN TOTAL (BEAKER) (test imiu=331) 1.0 mg/dL 0.2-1.2 BILIRUBIN DIRECT (BEAKER) (test chiu=216) 0.6 mg/dL 0.1-0.5 ALKALINE PHOSPHATASE (BEAKER) (test vred=935) 120 U/L 40-150 AST (SGOT) (BEAKER) (test zwcf=724) 27 U/L 5-34 ALT (SGPT) (BEAKER) (test ramb=259) 10 U/L 6-55 [id number] 05:00:00 Test Item Value Reference Range Comments MAGNESIUM (BEAKER) (test gyrn=509) 2.1 mg/dL 1.6-2.6 [id number] 04:44:00 Test Item Value Reference Range Comments PARTIAL THROMBOPLASTIN TIME (BEAKER) (test 43.5 seconds 22.5-36.0 sfuu=108) PROTHROMBIN [id number] 04:43:00 Test Item Value Reference Range Comments PROTIME (BEAKER) (test jske=982) 16.9 seconds 11.7-14.7 INR (BEAKER) (test ymdq=850) 1.4 <=5.9 RECOMMENDED COUMADIN/WARFARIN INR THERAPY RANGESSTANDARD DOSE: 2.0 - 3.0 Includes: PROPHYLAXIS forvenous thrombosis, systemic embolization; TREATMENT for venous thrombosis and/or pulmonary embolus.HIGH RISK: Target INR is 2.5-3.5 for patients with mechanical heart valves.CBC W/PLT COUNT & AUTO [id number] 04:36:00 Test Item Value Reference Range Comments WHITE BLOOD CELL COUNT (BEAKER) (test rbgg=156) 5.3 K/ L 3.5-10.5 RED BLOOD CELL COUNT (BEAKER) (test euyt=166) 2.65 M/ L 4.63-6.08 HEMOGLOBIN (BEAKER) (test gxnc=255) 7.3 GM/DL 13.7-17.5 HEMATOCRIT (BEAKER) (test jlqt=546) 23.8 % 40.1-51.0 MEAN CORPUSCULAR VOLUME (BEAKER) (test kuha=075) 89.8 fL 79.0-92.2 MEAN CORPUSCULAR HEMOGLOBIN (BEAKER) (test 27.5 pg 25.7-32.2 antb=259) MEAN CORPUSCULAR HEMOGLOBIN CONC (BEAKER) (test 30.7 GM/DL 32.3-36.5 spde=799) RED CELL DISTRIBUTION WIDTH (BEAKER) (test 19.2 % 11.6-14.4 wusm=943) PLATELET COUNT (BEAKER) (test gtqq=333) 108 K/CU MM 150-450 MEAN PLATELET VOLUME (BEAKER) (test pguz=688) 10.2 fL 9.4-12.4 NUCLEATED RED BLOOD CELLS (BEAKER) (test 0 /100 WBC 0-0 ksvx=383) NEUTROPHILS RELATIVE PERCENT (BEAKER) (test 68 % vcky=006) LYMPHOCYTES RELATIVE PERCENT (BEAKER) (test 15 % toup=809) MONOCYTES RELATIVE PERCENT (BEAKER) (test 13 % vpxf=474) EOSINOPHILS RELATIVE PERCENT (BEAKER) (test 4 % ryak=774) BASOPHILS RELATIVE PERCENT (BEAKER) (test 0 % wzce=139) NEUTROPHILS ABSOLUTE COUNT (BEAKER) (test 3.61 K/ L 1.78-5.38 njcy=898) LYMPHOCYTES ABSOLUTE COUNT (BEAKER) (test 0.78 K/ L 1.32-3.57 xqgk=915) MONOCYTES ABSOLUTE COUNT (BEAKER) (test 0.69 K/ L 0.30-0.82 layn=819) EOSINOPHILS ABSOLUTE COUNT (BEAKER) (test 0.19 K/ L 0.04-0.54 ibmt=705) BASOPHILS ABSOLUTE COUNT (BEAKER) (test 0.01 K/ L 0.01-0.08 agqb=264) IMMATURE GRANULOCYTES-RELATIVE PERCENT (BEAKER) 1 % 0-1 (test dnpj=7248) POCT-GLUCOSE [id number] 13:32:00 Test Item Value Reference Range Comments POC-GLUCOSE METER (BEAKER) 95 mg/dL 70-110 TESTED AT [address] (test hqum=1908) [place] [address] POCT-GLUCOSE [id number] 12:23:00 Test Item Value Reference Range Comments POC-GLUCOSE METER (BEAKER) 112 mg/dL 70-110 TESTED AT [address] (test ujrp=3286) [place] [address] POCT-GLUCOSE [id number] 08:35:00 Test Item Value Reference Range Comments POC-GLUCOSE METER (BEAKER) 92 mg/dL 70-110 TESTED AT [address] (test pjhq=5201) [place] [address] LEGIONELLA [id number] 07:34:00 Test Item Value Reference Range Comments CULTURE (BEAKER) (test No Legionella species isolated byyw=1689) POCT-GLUCOSE [id number] 05:56:00 Test Item Value Reference Range Comments POC-GLUCOSE METER (BEAKER) 88 mg/dL 70-110 TESTED AT [address] (test lzxj=8456) [place] [id number] 05:21:00 Test Item Value Reference Range Comments PHOSPHORUS (BEAKER) (test xari=180) 2.8 mg/dL 2.3-4.7 [id number] 05:21:00 Test Item Value Reference Range Comments MAGNESIUM (BEAKER) (test fqed=802) 1.4 mg/dL 1.6-2.6 BASIC METABOLIC [id number] 05:21:00 Test Item Value Reference Range Comments SODIUM (BEAKER) (test 136 meq/L 136-145 dbev=299) POTASSIUM (BEAKER) (test 3.6 meq/L 3.5-5.1 cqtq=902) CHLORIDE (BEAKER) (test 94 meq/L 98-107 slbj=080) CO2 (BEAKER) (test 35 meq/L 22-29 ihii=325) BLOOD UREA NITROGEN 32 mg/dL 7-21 (BEAKER) (test ktys=225) CREATININE (BEAKER) (test 1.37 mg/dL 0.57-1.25 akql=461) GLUCOSE RANDOM (BEAKER) 81 mg/dL 70-105 (test wxyj=664) CALCIUM (BEAKER) (test 8.1 mg/dL 8.4-10.2 ygtr=551) EGFR (BEAKER) (test 54 mL/min/1.73 sq m ESTIMATED GFR IS NOT vsks=0401) ACCURATE CREATININE CLEARANCE IN PREDICTING GLOMERULAR FILTRATION RATE. ESTIMATED GFR IS NOT APPLICABLE FOR DIALYSIS PATIENTS. HEPATIC FUNCTION [id number] 05:21:00 Test Item Value Reference Range Comments TOTAL PROTEIN (BEAKER) (test xene=898) 6.3 gm/dL 6.0-8.3 ALBUMIN (BEAKER) (test sgvb=3113) 2.8 g/dL 3.5-5.0 BILIRUBIN TOTAL (BEAKER) (test uqtr=918) 1.0 mg/dL 0.2-1.2 BILIRUBIN DIRECT (BEAKER) (test anic=406) 0.7 mg/dL 0.1-0.5 ALKALINE PHOSPHATASE (BEAKER) (test lhfo=332) 114 U/L 40-150 AST (SGOT) (BEAKER) (test croa=900) 27 U/L 5-34 ALT (SGPT) (BEAKER) (test ssos=651) 10 U/L 6-55 [id number] 04:50:00 Test Item Value Reference Range Comments PARTIAL THROMBOPLASTIN TIME (BEAKER) (test 42.0 seconds 22.5-36.0 ioye=880) PROTHROMBIN [id number] 04:49:00 Test Item Value Reference Range Comments PROTIME (BEAKER) (test ngkf=704) 17.1 seconds 11.7-14.7 INR (BEAKER) (test gnba=462) 1.4 <=5.9 RECOMMENDED COUMADIN/WARFARIN INR THERAPY RANGESSTANDARD DOSE: 2.0 - 3.0 Includes: PROPHYLAXIS forvenous thrombosis, systemic embolization; TREATMENT for venous thrombosis and/or pulmonary embolus.HIGH RISK: Target INR is 2.5-3.5 for patients with mechanical heart valves.CBC W/PLT COUNT & AUTO [id number] 04:45:00 Test Item Value Reference Range Comments WHITE BLOOD CELL COUNT (BEAKER) (test joef=983) 4.2 K/ L 3.5-10.5 RED BLOOD CELL COUNT (BEAKER) (test vnap=043) 2.90 M/ L 4.63-6.08 HEMOGLOBIN (BEAKER) (test daxi=740) 7.9 GM/DL 13.7-17.5 HEMATOCRIT (BEAKER) (test wiyf=156) 25.9 % 40.1-51.0 MEAN CORPUSCULAR VOLUME (BEAKER) (test relh=636) 89.3 fL 79.0-92.2 MEAN CORPUSCULAR HEMOGLOBIN (BEAKER) (test 27.2 pg 25.7-32.2 nezm=757) MEAN CORPUSCULAR HEMOGLOBIN CONC (BEAKER) (test 30.5 GM/DL 32.3-36.5 otkt=898) RED CELL DISTRIBUTION WIDTH (BEAKER) (test 18.7 % 11.6-14.4 rikz=065) PLATELET COUNT (BEAKER) (test rgtt=708) 105 K/CU MM 150-450 MEAN PLATELET VOLUME (BEAKER) (test bxqt=795) 9.9 fL 9.4-12.4 NUCLEATED RED BLOOD CELLS (BEAKER) (test 0 /100 WBC 0-0 npze=408) NEUTROPHILS RELATIVE PERCENT (BEAKER) (test 67 % nyea=880) LYMPHOCYTES RELATIVE PERCENT (BEAKER) (test 15 % lszq=414) MONOCYTES RELATIVE PERCENT (BEAKER) (test 15 % wdav=252) EOSINOPHILS RELATIVE PERCENT (BEAKER) (test 3 % vgsl=748) BASOPHILS RELATIVE PERCENT (BEAKER) (test 0 % sgyv=532) NEUTROPHILS ABSOLUTE COUNT (BEAKER) (test 2.80 K/ L 1.78-5.38 ywzm=560) LYMPHOCYTES ABSOLUTE COUNT (BEAKER) (test 0.62 K/ L 1.32-3.57 ssvt=672) MONOCYTES ABSOLUTE COUNT (BEAKER) (test 0.62 K/ L 0.30-0.82 airl=067) EOSINOPHILS ABSOLUTE COUNT (BEAKER) (test 0.13 K/ L 0.04-0.54 mbln=026) BASOPHILS ABSOLUTE COUNT (BEAKER) (test 0.01 K/ L 0.01-0.08 pdft=477) IMMATURE GRANULOCYTES-RELATIVE PERCENT (BEAKER) 1 % 0-1 (test uzpp=6630) POCT-GLUCOSE [id number] 00:34:00 Test Item Value Reference Range Comments POC-GLUCOSE METER (BEAKER) 91 mg/dL 70-110 TESTED AT [address] (test ogvt=4667) [place] [address] POCT-GLUCOSE [id number] 17:25:00 Test Item Value Reference Range Comments POC-GLUCOSE METER (BEAKER) 113 mg/dL 70-110 TESTED AT [address] (test bzma=3470) [place] [address] POCT-GLUCOSE [id number] 12:10:00 Test Item Value Reference Range Comments POC-GLUCOSE METER (BEAKER) 97 mg/dL 70-110 TESTED AT [address] (test jikj=0728) [place] [address] BASIC METABOLIC [id number] 08:13:00 Test Item Value Reference Range Comments SODIUM (BEAKER) (test 136 meq/L 136-145 imaq=775) POTASSIUM (BEAKER) (test 4.0 meq/L 3.5-5.1 dpwt=055) CHLORIDE (BEAKER) (test 93 meq/L 98-107 wswh=462) CO2 (BEAKER) (test 35 meq/L 22-29 aruq=270) BLOOD UREA NITROGEN 28 mg/dL 7-21 (BEAKER) (test rqpr=194) CREATININE (BEAKER) (test 1.36 mg/dL 0.57-1.25 pgkz=922) GLUCOSE RANDOM (BEAKER) 101 mg/dL 70-105 (test qjms=749) CALCIUM (BEAKER) (test 8.5 mg/dL 8.4-10.2 mzda=277) EGFR (BEAKER) (test 54 mL/min/1.73 sq m ESTIMATED GFR IS NOT pmot=4032) ACCURATE CREATININE CLEARANCE IN PREDICTING GLOMERULAR FILTRATION RATE. ESTIMATED GFR IS NOT APPLICABLE FOR DIALYSIS PATIENTS. POCT-GLUCOSE [id number] 07:36:00 Test Item Value Reference Range Comments POC-GLUCOSE METER (BEAKER) 93 mg/dL 70-110 TESTED AT [address] (test hsxn=3490) [facility] [address] POCT-GLUCOSE [id number] 06:11:00 Test Item Value Reference Range Comments POC-GLUCOSE METER (BEAKER) 97 mg/dL 70-110 TESTED AT [address] (test lxii=8172) [facility] [address] [id number] 04:20:00 Test Item Value Reference Range Comments PHOSPHORUS (BEAKER) (test tbkc=054) 3.2 mg/dL 2.3-4.7 [id number] 04:20:00 Test Item Value Reference Range Comments MAGNESIUM (BEAKER) (test vwwi=268) 1.8 mg/dL 1.6-2.6 HEPATIC FUNCTION [id number] 04:20:00 Test Item Value Reference Range Comments TOTAL PROTEIN (BEAKER) (test ltew=178) 7.0 gm/dL 6.0-8.3 ALBUMIN (BEAKER) (test dfmu=9386) 3.0 g/dL 3.5-5.0 BILIRUBIN TOTAL (BEAKER) (test attl=362) 1.0 mg/dL 0.2-1.2 BILIRUBIN DIRECT (BEAKER) (test obne=898) 0.7 mg/dL 0.1-0.5 ALKALINE PHOSPHATASE (BEAKER) (test etct=144) 115 U/L 40-150 AST (SGOT) (BEAKER) (test wlwg=384) 24 U/L 5-34 ALT (SGPT) (BEAKER) (test vyrp=057) 9 U/L 6-55 [id number] 04:11:00 Test Item Value Reference Range Comments PARTIAL THROMBOPLASTIN TIME (BEAKER) (test 40.9 seconds 22.5-36.0 odld=191) PROTHROMBIN [id number] 04:10:00 Test Item Value Reference Range Comments PROTIME (BEAKER) (test rtvt=287) 16.7 seconds 11.7-14.7 INR (BEAKER) (test mpoo=427) 1.4 <=5.9 RECOMMENDED COUMADIN/WARFARIN INR THERAPY RANGESSTANDARD DOSE: 2.0 - 3.0 Includes: PROPHYLAXIS forvenous thrombosis, systemic embolization; TREATMENT for venous thrombosis and/or pulmonary embolus.HIGH RISK: Target INR is 2.5-3.5 for patients with mechanical heart valves.CBC W/PLT COUNT & AUTO [id number] 03:58:00 Test Item Value Reference Range Comments WHITE BLOOD CELL COUNT (BEAKER) (test fhca=133) 4.6 K/ L 3.5-10.5 RED BLOOD CELL COUNT (BEAKER) (test mlac=083) 3.13 M/ L 4.63-6.08 HEMOGLOBIN (BEAKER) (test oyyi=970) 8.5 GM/DL 13.7-17.5 HEMATOCRIT (BEAKER) (test hajz=966) 28.5 % 40.1-51.0 MEAN CORPUSCULAR VOLUME (BEAKER) (test fymi=673) 91.1 fL 79.0-92.2 MEAN CORPUSCULAR HEMOGLOBIN (BEAKER) (test 27.2 pg 25.7-32.2 qyxf=762) MEAN CORPUSCULAR HEMOGLOBIN CONC (BEAKER) (test 29.8 GM/DL 32.3-36.5 fjhp=546) RED CELL DISTRIBUTION WIDTH (BEAKER) (test 18.7 % 11.6-14.4 qfbs=950) PLATELET COUNT (BEAKER) (test juoj=312) 117 K/CU MM 150-450 MEAN PLATELET VOLUME (BEAKER) (test ujkm=820) 9.3 fL 9.4-12.4 NUCLEATED RED BLOOD CELLS (BEAKER) (test 0 /100 WBC 0-0 jbdx=885) NEUTROPHILS RELATIVE PERCENT (BEAKER) (test 66 % pitc=872) LYMPHOCYTES RELATIVE PERCENT (BEAKER) (test 12 % olhl=412) MONOCYTES RELATIVE PERCENT (BEAKER) (test 18 % hguv=252) EOSINOPHILS RELATIVE PERCENT (BEAKER) (test 3 % rdzq=967) BASOPHILS RELATIVE PERCENT (BEAKER) (test 0 % vtba=857) NEUTROPHILS ABSOLUTE COUNT (BEAKER) (test 3.05 K/ L 1.78-5.38 nvop=772) LYMPHOCYTES ABSOLUTE COUNT (BEAKER) (test 0.54 K/ L 1.32-3.57 taly=452) MONOCYTES ABSOLUTE COUNT (BEAKER) (test 0.83 K/ L 0.30-0.82 qsiq=200) EOSINOPHILS ABSOLUTE COUNT (BEAKER) (test 0.15 K/ L 0.04-0.54 inhf=273) BASOPHILS ABSOLUTE COUNT (BEAKER) (test 0.01 K/ L 0.01-0.08 rwmi=622) IMMATURE GRANULOCYTES-RELATIVE PERCENT (BEAKER) 1 % 0-1 (test phce=4781) POCT-GLUCOSE [id number] 00:38:00 Test Item Value Reference Range Comments POC-GLUCOSE METER (BEAKER) 107 mg/dL 70-110 TESTED AT [address] (test iwym=9602) [place] [address] POCT-GLUCOSE [id number] 18:47:00 Test Item Value Reference Range Comments POC-GLUCOSE METER (BEAKER) 98 mg/dL 70-110 TESTED AT [address] (test ofcj=1330) [place] [address] WOUND CULTURE + GRAM [id number] 13:17:00 Test Item Value Reference Range Comments CULTURE (BEAKER) (test tvry=1036) No growth GRAM STAIN RESULT (BEAKER) (test 1+ WBCs nhmw=8112) GRAM STAIN RESULT (BEAKER) (test No organisms seen ygsj=70498) POCT-GLUCOSE [id number] 12:50:00 Test Item Value Reference Range Comments POC-GLUCOSE METER (BEAKER) 82 mg/dL 70-110 TESTED AT [address] (test nmjr=5299) [place] [address] POCT-GLUCOSE [id number] 08:51:00 Test Item Value Reference Range Comments POC-GLUCOSE METER (BEAKER) 94 mg/dL 70-110 TESTED AT [address] (test sbfm=2719) [place] [address] BASIC METABOLIC [id number] 06:55:00 Test Item Value Reference Range Comments SODIUM (BEAKER) (test 136 meq/L 136-145 mzzt=282) POTASSIUM (BEAKER) (test 3.9 meq/L 3.5-5.1 iruk=480) CHLORIDE (BEAKER) (test 95 meq/L 98-107 firb=506) CO2 (BEAKER) (test 32 meq/L 22-29 rwyf=643) BLOOD UREA NITROGEN 25 mg/dL 7-21 (BEAKER) (test lciq=118) CREATININE (BEAKER) (test 1.26 mg/dL 0.57-1.25 lgfp=363) GLUCOSE RANDOM (BEAKER) 109 mg/dL 70-105 (test cdnb=344) CALCIUM (BEAKER) (test 8.6 mg/dL 8.4-10.2 rjis=726) EGFR (BEAKER) (test 59 mL/min/1.73 sq m ESTIMATED GFR IS NOT xzqx=6757) ACCURATE CREATININE CLEARANCE IN PREDICTING GLOMERULAR FILTRATION RATE. ESTIMATED GFR IS NOT APPLICABLE FOR DIALYSIS PATIENTS. [id number] 05:02:00 Test Item Value Reference Range Comments PHOSPHORUS (BEAKER) (test oeem=564) 2.9 mg/dL 2.3-4.7 [id number] 05:02:00 Test Item Value Reference Range Comments MAGNESIUM (BEAKER) (test nmai=520) 2.1 mg/dL 1.6-2.6 HEPATIC FUNCTION [id number] 05:02:00 Test Item Value Reference Range Comments TOTAL PROTEIN (BEAKER) (test oozr=686) 7.2 gm/dL 6.0-8.3 ALBUMIN (BEAKER) (test xxpg=7691) 3.3 g/dL 3.5-5.0 BILIRUBIN TOTAL (BEAKER) (test wszm=223) 1.1 mg/dL 0.2-1.2 BILIRUBIN DIRECT (BEAKER) (test pbhb=673) 0.7 mg/dL 0.1-0.5 ALKALINE PHOSPHATASE (BEAKER) (test bqra=628) 106 U/L 40-150 AST (SGOT) (BEAKER) (test zebq=711) 25 U/L 5-34 ALT (SGPT) (BEAKER) (test afhc=481) 11 U/L 6-55 CBC W/PLT COUNT & AUTO [id number] 04:53:00 Test Item Value Reference Range Comments WHITE BLOOD CELL COUNT (BEAKER) (test lmcf=430) 4.6 K/ L 3.5-10.5 RED BLOOD CELL COUNT (BEAKER) (test yuby=429) 2.84 M/ L 4.63-6.08 HEMOGLOBIN (BEAKER) (test srkg=862) 7.8 GM/DL 13.7-17.5 HEMATOCRIT (BEAKER) (test yero=695) 25.7 % 40.1-51.0 MEAN CORPUSCULAR VOLUME (BEAKER) (test wkih=196) 90.5 fL 79.0-92.2 MEAN CORPUSCULAR HEMOGLOBIN (BEAKER) (test 27.5 pg 25.7-32.2 ddpy=818) MEAN CORPUSCULAR HEMOGLOBIN CONC (BEAKER) (test 30.4 GM/DL 32.3-36.5 ququ=160) RED CELL DISTRIBUTION WIDTH (BEAKER) (test 18.3 % 11.6-14.4 lhnx=288) PLATELET COUNT (BEAKER) (test vikf=630) 72 K/CU MM 150-450 MEAN PLATELET VOLUME (BEAKER) (test gafw=446) 9.6 fL 9.4-12.4 NUCLEATED RED BLOOD CELLS (BEAKER) (test 0 /100 WBC 0-0 lsjg=148) NEUTROPHILS RELATIVE PERCENT (BEAKER) (test 62 % iutg=575) LYMPHOCYTES RELATIVE PERCENT (BEAKER) (test 14 % bdab=019) MONOCYTES RELATIVE PERCENT (BEAKER) (test 19 % aztr=593) EOSINOPHILS RELATIVE PERCENT (BEAKER) (test 4 % bipj=690) BASOPHILS RELATIVE PERCENT (BEAKER) (test 0 % qtko=252) NEUTROPHILS ABSOLUTE COUNT (BEAKER) (test 2.82 K/ L 1.78-5.38 wiyk=335) LYMPHOCYTES ABSOLUTE COUNT (BEAKER) (test 0.63 K/ L 1.32-3.57 owkd=913) MONOCYTES ABSOLUTE COUNT (BEAKER) (test rjkg=215) 0.88 K/ L 0.30-0.82 EOSINOPHILS ABSOLUTE COUNT (BEAKER) (test 0.19 K/ L 0.04-0.54 hgxq=912) BASOPHILS ABSOLUTE COUNT (BEAKER) (test osjt=740) 0.01 K/ L 0.01-0.08 IMMATURE GRANULOCYTES-RELATIVE PERCENT (BEAKER) 1 % 0-1 (test wxvp=6420) [id number] 04:47:00 Test Item Value Reference Range Comments PARTIAL THROMBOPLASTIN TIME (BEAKER) (test 42.1 seconds 22.5-36.0 yock=144) PROTHROMBIN [id number] 04:46:00 Test Item Value Reference Range Comments PROTIME (BEAKER) (test fxpv=279) 17.0 seconds 11.7-14.7 INR (BEAKER) (test pumb=771) 1.4 <=5.9 RECOMMENDED COUMADIN/WARFARIN INR THERAPY RANGESSTANDARD DOSE: 2.0 - 3.0 Includes: PROPHYLAXIS forvenous thrombosis, systemic embolization; TREATMENT for venous thrombosis and/or pulmonary embolus.HIGH RISK: Target INR is 2.5-3.5 for patients with mechanical heart valves.BLOOD GAS, [id number] 04:44:00 Test Item Value Reference Range Comments PH ARTERIAL (BEAKER) (test gchm=815) 7.40 7.35-7.45 PCO2 ARTERIAL (BEAKER) (test refs=432) 60 mmHg 35-45 PO2 ARTERIAL (BEAKER) (test pgzc=741) 186 mmHg 80-90 O2 SATURATION ARTERIAL (BEAKER) (test sfkn=456) 99.2 % 96.0-97.0 HCO3 ARTERIAL (BEAKER) (test ymcy=869) 36 mmol/L 21-29 BASE EXCESS ARTERIAL (BEAKER) (test niqk=192) 10.1 mmol/L -2.0-3.0 PATIENT TEMPERATURE (BEAKER) (test yjjo=2504) 37.0 C FIO2 (BEAKER) (test ckrr=1047) 30.0 % POCT-GLUCOSE [id number] 04:24:00 Test Item Value Reference Range Comments POC-GLUCOSE METER (BEAKER) 111 mg/dL 70-110 TESTED AT [address] (test ubxf=5160) [place] [address] POCT-GLUCOSE [id number] 20:36:00 Test Item Value Reference Range Comments POC-GLUCOSE METER (BEAKER) 103 mg/dL 70-110 TESTED AT [address] (test yvtc=5949) [place] [address] POCT-GLUCOSE [id number] 17:22:00 Test Item Value Reference Range Comments POC-GLUCOSE METER (BEAKER) 111 mg/dL 70-110 TESTED AT [address] (test ltmv=4545) [facility] [address] BLOOD GAS, [id number] 13:49:00 Test Item Value Reference Range Comments PH ARTERIAL (BEAKER) (test hbwm=275) 7.36 7.35-7.45 PCO2 ARTERIAL (BEAKER) (test vetw=372) 61 mmHg 35-45 PO2 ARTERIAL (BEAKER) (test nvyf=240) 164 mmHg 80-90 O2 SATURATION ARTERIAL (BEAKER) (test vyqe=309) 99.0 % 96.0-97.0 HCO3 ARTERIAL (BEAKER) (test fuzt=176) 34 mmol/L 21-29 BASE EXCESS ARTERIAL (BEAKER) (test svwy=562) 7.3 mmol/L -2.0-3.0 PATIENT TEMPERATURE (BEAKER) (test unox=4984) 37.0 C FIO2 (BEAKER) (test xzvy=6482) 32.0 % POCT-GLUCOSE [id number] 07:39:00 Test Item Value Reference Range Comments POC-GLUCOSE METER (BEAKER) 86 mg/dL 70-110 TESTED AT [address] (test ldhp=6621) [facility] [address] BLOOD GAS, [id number] 04:32:00 Test Item Value Reference Range Comments PH ARTERIAL (BEAKER) (test nhpm=320) 7.40 7.35-7.45 PCO2 ARTERIAL (BEAKER) (test ztom=431) 55 mmHg 35-45 PO2 ARTERIAL (BEAKER) (test odfv=530) 187 mmHg 80-90 O2 SATURATION ARTERIAL (BEAKER) (test sbdv=867) 99.2 % 96.0-97.0 HCO3 ARTERIAL (BEAKER) (test chym=354) 33 mmol/L 21-29 BASE EXCESS ARTERIAL (BEAKER) (test nrgy=840) 7.7 mmol/L -2.0-3.0 PATIENT TEMPERATURE (BEAKER) (test uobm=0535) 37.5 C FIO2 (BEAKER) (test wgnd=0210) 30.0 % CBC W/PLT COUNT & AUTO [id number] 04:13:00 Test Item Value Reference Range Comments WHITE BLOOD CELL COUNT (BEAKER) (test oltj=493) 5.6 K/ L 3.5-10.5 RED BLOOD CELL COUNT (BEAKER) (test odon=585) 3.02 M/ L 4.63-6.08 HEMOGLOBIN (BEAKER) (test ddap=456) 8.1 GM/DL 13.7-17.5 HEMATOCRIT (BEAKER) (test jdzm=646) 26.7 % 40.1-51.0 MEAN CORPUSCULAR VOLUME (BEAKER) (test gbvl=681) 88.4 fL 79.0-92.2 MEAN CORPUSCULAR HEMOGLOBIN (BEAKER) (test 26.8 pg 25.7-32.2 hnzp=468) MEAN CORPUSCULAR HEMOGLOBIN CONC (BEAKER) (test 30.3 GM/DL 32.3-36.5 iqxi=753) RED CELL DISTRIBUTION WIDTH (BEAKER) (test 18.2 % 11.6-14.4 wqdq=532) PLATELET COUNT (BEAKER) (test vhmb=971) 80 K/CU MM 150-450 MEAN PLATELET VOLUME (BEAKER) (test ohci=560) 9.6 fL 9.4-12.4 NUCLEATED RED BLOOD CELLS (BEAKER) (test 0 /100 WBC 0-0 isci=871) NEUTROPHILS RELATIVE PERCENT (BEAKER) (test 60 % vxep=293) LYMPHOCYTES RELATIVE PERCENT (BEAKER) (test 13 % kzdh=396) MONOCYTES RELATIVE PERCENT (BEAKER) (test 21 % nsjv=677) EOSINOPHILS RELATIVE PERCENT (BEAKER) (test 5 % rkfj=288) BASOPHILS RELATIVE PERCENT (BEAKER) (test 0 % jqfq=512) NEUTROPHILS ABSOLUTE COUNT (BEAKER) (test 3.36 K/ L 1.78-5.38 ukjq=206) LYMPHOCYTES ABSOLUTE COUNT (BEAKER) (test 0.74 K/ L 1.32-3.57 hofm=946) MONOCYTES ABSOLUTE COUNT (BEAKER) (test tpse=586) 1.20 K/ L 0.30-0.82 EOSINOPHILS ABSOLUTE COUNT (BEAKER) (test 0.26 K/ L 0.04-0.54 ugtz=529) BASOPHILS ABSOLUTE COUNT (BEAKER) (test aslf=344) 0.01 K/ L 0.01-0.08 IMMATURE GRANULOCYTES-RELATIVE PERCENT (BEAKER) 1 % 0-1 (test wspm=2840) PROTHROMBIN [id number] 04:04:00 Test Item Value Reference Range Comments PROTIME (BEAKER) (test pxrw=125) 19.6 seconds 11.7-14.7 INR (BEAKER) (test noxc=720) 1.7 <=5.9 RECOMMENDED COUMADIN/WARFARIN INR THERAPY RANGESSTANDARD DOSE: 2.0 - 3.0 Includes: PROPHYLAXIS forvenous thrombosis, systemic embolization; TREATMENT for venous thrombosis and/or pulmonary embolus.HIGH RISK: Target INR is 2.5-3.5 for patients with mechanical heart valves.[id number] 04:04:00 Test Item Value Reference Range Comments PARTIAL THROMBOPLASTIN TIME (BEAKER) (test 39.7 seconds 22.5-36.0 uspi=503) POCT-GLUCOSE [id number] 03:56:00 Test Item Value Reference Range Comments POC-GLUCOSE METER (BEAKER) 100 mg/dL 70-110 TESTED AT [address] (test zinf=7890) [facility] [address] [id number] 03:55:00 Test Item Value Reference Range Comments PHOSPHORUS (BEAKER) (test qpzp=346) 2.8 mg/dL 2.3-4.7 [id number] 03:55:00 Test Item Value Reference Range Comments MAGNESIUM (BEAKER) (test eezk=404) 1.9 mg/dL 1.6-2.6 BASIC METABOLIC [id number] 03:55:00 Test Item Value Reference Range Comments SODIUM (BEAKER) (test 133 meq/L 136-145 fibc=184) POTASSIUM (BEAKER) (test 3.7 meq/L 3.5-5.1 qiwe=854) CHLORIDE (BEAKER) (test 96 meq/L 98-107 jxey=303) CO2 (BEAKER) (test 31 meq/L 22-29 vpdy=370) BLOOD UREA NITROGEN 26 mg/dL 7-21 (BEAKER) (test cvmg=014) CREATININE (BEAKER) (test 1.49 mg/dL 0.57-1.25 fwuw=207) GLUCOSE RANDOM (BEAKER) 105 mg/dL 70-105 (test mqcn=847) CALCIUM (BEAKER) (test 8.1 mg/dL 8.4-10.2 cwlh=760) EGFR (BEAKER) (test 49 mL/min/1.73 sq m ESTIMATED GFR IS NOT wnte=6205) ACCURATE CREATININE CLEARANCE IN PREDICTING GLOMERULAR FILTRATION RATE. ESTIMATED GFR IS NOT APPLICABLE FOR DIALYSIS PATIENTS. HEPATIC FUNCTION [id number] 03:55:00 Test Item Value Reference Range Comments TOTAL PROTEIN (BEAKER) (test bcpu=916) 6.6 gm/dL 6.0-8.3 ALBUMIN (BEAKER) (test wstr=5541) 2.8 g/dL 3.5-5.0 BILIRUBIN TOTAL (BEAKER) (test yqai=868) 1.0 mg/dL 0.2-1.2 BILIRUBIN DIRECT (BEAKER) (test euza=031) 0.7 mg/dL 0.1-0.5 ALKALINE PHOSPHATASE (BEAKER) (test fcju=370) 105 U/L 40-150 AST (SGOT) (BEAKER) (test gekd=978) 22 U/L 5-34 ALT (SGPT) (BEAKER) (test qxcl=662) 10 U/L 6-55 POCT-GLUCOSE [id number] 00:35:00 Test Item Value Reference Range Comments POC-GLUCOSE METER (BEAKER) 99 mg/dL 70-110 TESTED AT [address] (test zfil=1829) [place] [id number] POCT-GLUCOSE [id number] 19:57:00 Test Item Value Reference Range Comments POC-GLUCOSE METER (BEAKER) 111 mg/dL 70-110 TESTED AT [address] (test qoqx=0472) [place] [address] [id number] 18:31:00 Test Item Value Reference Range Comments MAGNESIUM (BEAKER) (test mvqc=144) 2.2 mg/dL 1.6-2.6 BASIC METABOLIC [id number] 18:31:00 Test Item Value Reference Range Comments SODIUM (BEAKER) (test 134 meq/L 136-145 vezr=630) POTASSIUM (BEAKER) (test 4.1 meq/L 3.5-5.1 tibt=301) CHLORIDE (BEAKER) (test 98 meq/L 98-107 umpc=591) CO2 (BEAKER) (test 28 meq/L 22-29 oemr=930) BLOOD UREA NITROGEN 25 mg/dL 7-21 (BEAKER) (test qaye=853) CREATININE (BEAKER) (test 1.62 mg/dL 0.57-1.25 okyr=894) GLUCOSE RANDOM (BEAKER) 126 mg/dL 70-105 (test ukno=565) CALCIUM (BEAKER) (test 8.0 mg/dL 8.4-10.2 ovru=212) EGFR (BEAKER) (test 44 mL/min/1.73 sq m ESTIMATED GFR IS NOT toui=6586) ACCURATE CREATININE CLEARANCE IN PREDICTING GLOMERULAR FILTRATION RATE. ESTIMATED GFR IS NOT APPLICABLE FOR DIALYSIS PATIENTS. LACTIC ACID, VENOUS, WHOLE [id number] 18:28:00 Test Item Value Reference Range Comments LACTATE BLOOD VENOUS (2) 1.3 mmol/L 0.5-2.2 Specimen slightly hemolyzed (BEAKER) (test prdg=3026) Effective 10/24/2015: Units/Reference Range ChangeNew: 0.5-2.2 mmol/L Previous: 5 -20 mg/dLPOCT-GLUCOSE [id number] 17:43:00 Test Item Value Reference Range Comments POC-GLUCOSE METER (BEAKER) 113 mg/dL 70-110 TESTED AT [facility] [address] [place] (test nfzk=7576) [facility] [address] U/S, ASPIRATION/[id number] 16:44:00Reason for exam:->drainage of left lower extremity abscessFINAL REPORT Ultrasound guided fine-needle aspiration dated 11/09/2017 Procedure: Aspiration of subcutaneous collection in the left leg Pre-procedure diagnosis: Subcutaneous collection in the left leg Post-procedure diagnosis: Subcutaneous collection in the left lower Radiologist: Luisito Cohen MD Content Strategist: None Sedation: None. Anesthesia: 1% Xylocaine local [...] of the left leg. Signed: Luisito Cohen MDReport Verified Date/Time: 11/09/2017 16:44:58 Reading Location: [place] [id number] Ultrasound Reading Room Electronically signed by: LUISITO COHEN M.D. on 04:44 PMPOCT-GLUCOSE [id number] 11:56:00 Test Item Value Reference Range Comments POC-GLUCOSE METER (BEAKER) 112 mg/dL 70-110 TESTED AT [address] (test toqw=0085) [place] [address] [id number] 10:27:00Medical Cytology Report Case: [id number] Authorizing Provider: Tonya Andrews MD Collected: 11/05/2017 1455 Ordering Location: [place] [address] ICU Received: 11/05/2017 1556 Pathologist: Lonny Barnard MD Specimen: Peritoneal Fluid PERITONEAL FLUID (CYTOSPINS): - NO MALIGNANT CELLS IDENTIFIED Signing Pathologist Direct Phone Line: [phone]; acute hypoxemic resp failure, DEO with hyperkalemia, acute decompensated RV failure, pulmonary edema, cardiogenic shock, suspected septic shockPERITONEAL FLUIDPrepared 4 cytospins from 50 ml dark yellow fluidCollected : [id number]: [id number], Department of [facility]ology, [address] [place] [address], Tel [facility] [place], [facility] of [facility], [address] [place] [address], EeihwqWestside [facility] [place], Department of Pathology, [address] [place] [address], Tel ELOOD GAS, [id number] 05:33:00 Test Item Value Reference Range Comments PH ARTERIAL (BEAKER) (test dqyp=770) 7.40 7.35-7.45 PCO2 ARTERIAL (BEAKER) (test jiyv=266) 53 mmHg 35-45 PO2 ARTERIAL (BEAKER) (test qkta=415) 188 mmHg 80-90 O2 SATURATION ARTERIAL (BEAKER) (test zcqg=943) 99.3 % 96.0-97.0 HCO3 ARTERIAL (BEAKER) (test rnnr=246) 32 mmol/L 21-29 BASE EXCESS ARTERIAL (BEAKER) (test ngra=070) 6.5 mmol/L -2.0-3.0 PATIENT TEMPERATURE (BEAKER) (test utpo=5325) 36.6 C FIO2 (BEAKER) (test ukjr=3306) 30.0 % CBC W/PLT COUNT & AUTO [id number] 04:44:00 Test Item Value Reference Range Comments WHITE BLOOD CELL COUNT (BEAKER) (test jjuw=957) 5.8 K/ L 3.5-10.5 RED BLOOD CELL COUNT (BEAKER) (test sdil=775) 3.21 M/ L 4.63-6.08 HEMOGLOBIN (BEAKER) (test efdt=730) 8.8 GM/DL 13.7-17.5 HEMATOCRIT (BEAKER) (test fhlw=816) 28.8 % 40.1-51.0 MEAN CORPUSCULAR VOLUME (BEAKER) (test mved=103) 89.7 fL 79.0-92.2 MEAN CORPUSCULAR HEMOGLOBIN (BEAKER) (test 27.4 pg 25.7-32.2 bcqo=850) MEAN CORPUSCULAR HEMOGLOBIN CONC (BEAKER) (test 30.6 GM/DL 32.3-36.5 mwja=021) RED CELL DISTRIBUTION WIDTH (BEAKER) (test 18.0 % 11.6-14.4 ipgi=686) PLATELET COUNT (BEAKER) (test ngqv=639) 61 K/CU MM 150-450 MEAN PLATELET VOLUME (BEAKER) (test vhnq=461) 10.0 fL 9.4-12.4 NUCLEATED RED BLOOD CELLS (BEAKER) (test 0 /100 WBC 0-0 kxfk=858) NEUTROPHILS RELATIVE PERCENT (BEAKER) (test 66 % depv=691) LYMPHOCYTES RELATIVE PERCENT (BEAKER) (test 11 % jehb=363) MONOCYTES RELATIVE PERCENT (BEAKER) (test 16 % knhf=754) EOSINOPHILS RELATIVE PERCENT (BEAKER) (test 5 % sndm=476) BASOPHILS RELATIVE PERCENT (BEAKER) (test 0 % jyst=741) NEUTROPHILS ABSOLUTE COUNT (BEAKER) (test 3.86 K/ L 1.78-5.38 zrmx=129) LYMPHOCYTES ABSOLUTE COUNT (BEAKER) (test 0.66 K/ L 1.32-3.57 vuqf=008) MONOCYTES ABSOLUTE COUNT (BEAKER) (test pddu=032) 0.94 K/ L 0.30-0.82 EOSINOPHILS ABSOLUTE COUNT (BEAKER) (test 0.31 K/ L 0.04-0.54 uprp=554) BASOPHILS ABSOLUTE COUNT (BEAKER) (test nrzk=883) 0.01 K/ L 0.01-0.08 IMMATURE GRANULOCYTES-RELATIVE PERCENT (BEAKER) 1 % 0-1 (test cpsj=1291) [id number] 04:40:00 Test Item Value Reference Range Comments PHOSPHORUS (BEAKER) (test tdvw=948) 1.9 mg/dL 2.3-4.7 [id number] 04:40:00 Test Item Value Reference Range Comments MAGNESIUM (BEAKER) (test mxtr=928) 1.4 mg/dL 1.6-2.6 HEPATIC FUNCTION [id number] 04:40:00 Test Item Value Reference Range Comments TOTAL PROTEIN (BEAKER) (test hdlz=325) 6.5 gm/dL 6.0-8.3 ALBUMIN (BEAKER) (test jydq=3504) 2.6 g/dL 3.5-5.0 BILIRUBIN TOTAL (BEAKER) (test yjot=638) 1.1 mg/dL 0.2-1.2 BILIRUBIN DIRECT (BEAKER) (test yyim=507) 0.7 mg/dL 0.1-0.5 ALKALINE PHOSPHATASE (BEAKER) (test mnpf=590) 106 U/L 40-150 AST (SGOT) (BEAKER) (test ajxi=151) 19 U/L 5-34 ALT (SGPT) (BEAKER) (test okqr=514) 8 U/L 6-55 [id number] 04:33:00 Test Item Value Reference Range Comments PARTIAL THROMBOPLASTIN TIME (BEAKER) (test 42.8 seconds 22.5-36.0 aont=653) PROTHROMBIN [id number] 04:32:00 Test Item Value Reference Range Comments PROTIME (BEAKER) (test mkqe=658) 17.9 seconds 11.7-14.7 INR (BEAKER) (test yngn=630) 1.5 <=5.9 RECOMMENDED COUMADIN/WARFARIN INR THERAPY RANGESSTANDARD DOSE: 2.0 - 3.0 Includes: PROPHYLAXIS forvenous thrombosis, systemic embolization; TREATMENT for venous thrombosis and/or pulmonary embolus.HIGH RISK: Target INR is 2.5-3.5 for patients with mechanical heart valves.POCT-GLUCOSE [id number] 04:10:00 Test Item Value Reference Range Comments POC-GLUCOSE METER (BEAKER) 86 mg/dL 70-110 TESTED AT [address] (test jolo=4170) [place] [address] POCT-GLUCOSE [id number] 00:42:00 Test Item Value Reference Range Comments POC-GLUCOSE METER (BEAKER) 98 mg/dL 70-110 TESTED AT [address] (test near=2169) [place] [address] [id number] 18:52:00 Test Item Value Reference Range Comments MAGNESIUM (BEAKER) (test tzxt=591) 1.8 mg/dL 1.6-2.6 BASIC METABOLIC [id number] 18:52:00 Test Item Value Reference Range Comments SODIUM (BEAKER) (test 133 meq/L 136-145 setu=224) POTASSIUM (BEAKER) (test 3.7 meq/L 3.5-5.1 bwbs=719) CHLORIDE (BEAKER) (test 98 meq/L 98-107 gcve=057) CO2 (BEAKER) (test 30 meq/L 22-29 yaru=126) BLOOD UREA NITROGEN 23 mg/dL 7-21 (BEAKER) (test asnl=829) CREATININE (BEAKER) (test 1.92 mg/dL 0.57-1.25 utsd=375) GLUCOSE RANDOM (BEAKER) 119 mg/dL 70-105 (test zexs=642) CALCIUM (BEAKER) (test 8.1 mg/dL 8.4-10.2 jwhv=142) EGFR (BEAKER) (test 36 mL/min/1.73 sq m ESTIMATED GFR IS NOT pvvt=7549) ACCURATE CREATININE CLEARANCE IN PREDICTING GLOMERULAR FILTRATION RATE. ESTIMATED GFR IS NOT APPLICABLE FOR DIALYSIS PATIENTS. POCT-GLUCOSE [id number] 16:53:00 Test Item Value Reference Range Comments POC-GLUCOSE METER (BEAKER) 117 mg/dL 70-110 TESTED AT [address] (test fxrj=0570) [place] [id number] POCT-GLUCOSE [id number] 12:18:00 Test Item Value Reference Range Comments POC-GLUCOSE METER (BEAKER) 116 mg/dL 70-110 TESTED AT [facility] [address] (test zccq=8662) [facility] [address] [id number] 10:46:00 Test Item Value Reference Range Comments MAGNESIUM (BEAKER) (test savu=355) 1.7 mg/dL 1.6-2.6 BASIC METABOLIC [id number] 10:46:00 Test Item Value Reference Range Comments SODIUM (BEAKER) (test 133 meq/L 136-145 anjm=872) POTASSIUM (BEAKER) (test 3.9 meq/L 3.5-5.1 zgsz=339) CHLORIDE (BEAKER) (test 98 meq/L 98-107 xqfd=330) CO2 (BEAKER) (test 29 meq/L 22-29 zjao=467) BLOOD UREA NITROGEN 22 mg/dL 7-21 (BEAKER) (test mvhu=906) CREATININE (BEAKER) (test 1.98 mg/dL 0.57-1.25 pnst=831) GLUCOSE RANDOM (BEAKER) 109 mg/dL 70-105 (test pmhq=846) CALCIUM (BEAKER) (test 8.0 mg/dL 8.4-10.2 xbqs=249) EGFR (BEAKER) (test 35 mL/min/1.73 sq m ESTIMATED GFR IS NOT hoqz=7192) ACCURATE CREATININE CLEARANCE IN PREDICTING GLOMERULAR FILTRATION RATE. ESTIMATED GFR IS NOT APPLICABLE FOR DIALYSIS PATIENTS. BLOOD GAS, [id number] 10:38:00 Test Item Value Reference Range Comments PH ARTERIAL (BEAKER) (test daum=481) 7.31 7.35-7.45 PCO2 ARTERIAL (BEAKER) (test pjfa=306) 63 mmHg 35-45 PO2 ARTERIAL (BEAKER) (test hkub=474) 67 mmHg 80-90 O2 SATURATION ARTERIAL (BEAKER) (test snkj=341) 91.1 % 96.0-97.0 HCO3 ARTERIAL (BEAKER) (test krti=556) 31 mmol/L 21-29 BASE EXCESS ARTERIAL (BEAKER) (test wacm=494) 4.1 mmol/L -2.0-3.0 PATIENT TEMPERATURE (BEAKER) (test bugk=6249) 37.0 C FIO2 (BEAKER) (test cauo=5623) 30.0 % BODY FLUID CULTURE + GRAM [id number] 10:08:00 Test Item Value Reference Range Comments CULTURE (BEAKER) (test duhp=8365) No growth GRAM STAIN RESULT (BEAKER) (test <1+ WBCs hvex=4658) GRAM STAIN RESULT (BEAKER) (test No organisms seen nkan=30967) POCT-GLUCOSE [id number] 07:39:00 Test Item Value Reference Range Comments POC-GLUCOSE METER (BEAKER) 112 mg/dL 70-110 TESTED AT [address] (test ujtn=4249) [facility] [address] BLOOD [id number] 06:00:00 Test Item Value Reference Range Comments CULTURE (BEAKER) (test ljzs=7366) No growth in 5 days BLOOD GAS, [id number] 05:28:00 Test Item Value Reference Range Comments PH ARTERIAL (BEAKER) (test tbut=720) 7.33 7.35-7.45 PCO2 ARTERIAL (BEAKER) (test exni=721) 61 mmHg 35-45 PO2 ARTERIAL (BEAKER) (test iniy=762) 175 mmHg 80-90 O2 SATURATION ARTERIAL (BEAKER) (test qrhi=240) 99.0 % 96.0-97.0 HCO3 ARTERIAL (BEAKER) (test uikg=139) 31 mmol/L 21-29 BASE EXCESS ARTERIAL (BEAKER) (test vxjg=925) 4.2 mmol/L -2.0-3.0 PATIENT TEMPERATURE (BEAKER) (test apea=8375) 36.8 C FIO2 (BEAKER) (test cukn=3727) 30.0 % BASIC METABOLIC [id number] 05:10:00 Test Item Value Reference Range Comments SODIUM (BEAKER) (test 133 meq/L 136-145 pwjc=354) POTASSIUM (BEAKER) (test 3.9 meq/L 3.5-5.1 tjjh=052) CHLORIDE (BEAKER) (test 99 meq/L 98-107 msel=445) CO2 (BEAKER) (test 29 meq/L 22-29 hgci=765) BLOOD UREA NITROGEN 22 mg/dL 7-21 (BEAKER) (test sipm=081) CREATININE (BEAKER) (test 2.00 mg/dL 0.57-1.25 oglp=509) GLUCOSE RANDOM (BEAKER) 93 mg/dL 70-105 (test mvjb=923) CALCIUM (BEAKER) (test 7.9 mg/dL 8.4-10.2 coyv=449) EGFR (BEAKER) (test 35 mL/min/1.73 sq m ESTIMATED GFR IS NOT ksyv=7167) ACCURATE CREATININE CLEARANCE IN PREDICTING GLOMERULAR FILTRATION RATE. ESTIMATED GFR IS NOT APPLICABLE FOR DIALYSIS PATIENTS. [id number] 05:06:00 Test Item Value Reference Range Comments PHOSPHORUS (BEAKER) (test slhg=903) 2.5 mg/dL 2.3-4.7 [id number] 05:06:00 Test Item Value Reference Range Comments MAGNESIUM (BEAKER) (test gnax=775) 1.7 mg/dL 1.6-2.6 HEPATIC FUNCTION [id number] 05:06:00 Test Item Value Reference Range Comments TOTAL PROTEIN (BEAKER) (test vtij=629) 6.4 gm/dL 6.0-8.3 ALBUMIN (BEAKER) (test jmex=1008) 2.5 g/dL 3.5-5.0 BILIRUBIN TOTAL (BEAKER) (test khjm=668) 1.1 mg/dL 0.2-1.2 BILIRUBIN DIRECT (BEAKER) (test pyba=916) 0.8 mg/dL 0.1-0.5 ALKALINE PHOSPHATASE (BEAKER) (test gfxh=913) 101 U/L 40-150 AST (SGOT) (BEAKER) (test wqsc=809) 18 U/L 5-34 ALT (SGPT) (BEAKER) (test gfrz=663) 11 U/L 6-55 [id number] 04:49:00 Test Item Value Reference Range Comments PARTIAL THROMBOPLASTIN TIME (BEAKER) (test 46.2 seconds 22.5-36.0 hrws=073) PROTHROMBIN [id number] 04:48:00 Test Item Value Reference Range Comments PROTIME (BEAKER) (test boqh=678) 18.2 seconds 11.7-14.7 INR (BEAKER) (test mkle=452) 1.5 <=5.9 RECOMMENDED COUMADIN/WARFARIN INR THERAPY RANGESSTANDARD DOSE: 2.0 - 3.0 Includes: PROPHYLAXIS forvenous thrombosis, systemic embolization; TREATMENT for venous thrombosis and/or pulmonary embolus.HIGH RISK: Target INR is 2.5-3.5 for patients with mechanical heart valves.CBC W/PLT COUNT & AUTO [id number] 04:37:00 Test Item Value Reference Range Comments WHITE BLOOD CELL COUNT (BEAKER) (test wztv=576) 5.8 K/ L 3.5-10.5 RED BLOOD CELL COUNT (BEAKER) (test avpk=134) 3.11 M/ L 4.63-6.08 HEMOGLOBIN (BEAKER) (test xfuv=363) 8.4 GM/DL 13.7-17.5 HEMATOCRIT (BEAKER) (test zmba=721) 28.8 % 40.1-51.0 MEAN CORPUSCULAR VOLUME (BEAKER) (test cogz=441) 92.6 fL 79.0-92.2 MEAN CORPUSCULAR HEMOGLOBIN (BEAKER) (test 27.0 pg 25.7-32.2 ycei=076) MEAN CORPUSCULAR HEMOGLOBIN CONC (BEAKER) (test 29.2 GM/DL 32.3-36.5 uwks=486) RED CELL DISTRIBUTION WIDTH (BEAKER) (test 18.3 % 11.6-14.4 bcpz=782) PLATELET COUNT (BEAKER) (test jhak=476) 50 K/CU MM 150-450 MEAN PLATELET VOLUME (BEAKER) (test bomg=834) 9.9 fL 9.4-12.4 NUCLEATED RED BLOOD CELLS (BEAKER) (test 0 /100 WBC 0-0 xxxv=379) NEUTROPHILS RELATIVE PERCENT (BEAKER) (test 71 % wxkz=438) LYMPHOCYTES RELATIVE PERCENT (BEAKER) (test 8 % ntcb=244) MONOCYTES RELATIVE PERCENT (BEAKER) (test 15 % lwem=993) EOSINOPHILS RELATIVE PERCENT (BEAKER) (test 6 % diqd=430) BASOPHILS RELATIVE PERCENT (BEAKER) (test 0 % fhhe=400) NEUTROPHILS ABSOLUTE COUNT (BEAKER) (test 4.06 K/ L 1.78-5.38 tfyd=547) LYMPHOCYTES ABSOLUTE COUNT (BEAKER) (test 0.44 K/ L 1.32-3.57 ntst=704) MONOCYTES ABSOLUTE COUNT (BEAKER) (test iafo=029) 0.86 K/ L 0.30-0.82 EOSINOPHILS ABSOLUTE COUNT (BEAKER) (test 0.36 K/ L 0.04-0.54 pgqn=688) BASOPHILS ABSOLUTE COUNT (BEAKER) (test mnlg=101) 0.01 K/ L 0.01-0.08 IMMATURE GRANULOCYTES-RELATIVE PERCENT (BEAKER) 0 % 0-1 (test gvjj=3400) POCT-GLUCOSE [id number] 04:33:00 Test Item Value Reference Range Comments POC-GLUCOSE METER (BEAKER) 94 mg/dL 70-110 TESTED AT [address] (test wekc=6764) [place] [address] [id number] 00:31:00 Test Item Value Reference Range Comments MAGNESIUM (BEAKER) (test yqki=446) 1.7 mg/dL 1.6-2.6 BASIC METABOLIC [id number] 00:31:00 Test Item Value Reference Range Comments SODIUM (BEAKER) (test 133 meq/L 136-145 vvou=510) POTASSIUM (BEAKER) (test 4.0 meq/L 3.5-5.1 rkdy=088) CHLORIDE (BEAKER) (test 100 meq/L 98-107 uvpd=556) CO2 (BEAKER) (test 29 meq/L 22-29 qquc=721) BLOOD UREA NITROGEN 22 mg/dL 7-21 (BEAKER) (test mana=929) CREATININE (BEAKER) (test 2.05 mg/dL 0.57-1.25 wpeh=744) GLUCOSE RANDOM (BEAKER) 116 mg/dL 70-105 (test zhji=634) CALCIUM (BEAKER) (test 8.0 mg/dL 8.4-10.2 lppu=567) EGFR (BEAKER) (test 34 mL/min/1.73 sq m ESTIMATED GFR IS NOT eaca=9339) ACCURATE CREATININE CLEARANCE IN PREDICTING GLOMERULAR FILTRATION RATE. ESTIMATED GFR IS NOT APPLICABLE FOR DIALYSIS PATIENTS. POCT-GLUCOSE [id number] 00:10:00 Test Item Value Reference Range Comments POC-GLUCOSE METER (BEAKER) 127 mg/dL 70-110 TESTED AT [address] (test kcra=6807) [place] [id number] BLOOD [id number] 00:00:00 Test Item Value Reference Range Comments CULTURE (BEAKER) (test ygyo=6318) No growth in 5 days [id number] 21:16:00 Test Item Value Reference Range Comments MAGNESIUM (BEAKER) (test ojoe=138) 1.7 mg/dL 1.6-2.6 BASIC METABOLIC [id number] 21:16:00 Test Item Value Reference Range Comments SODIUM (BEAKER) (test 134 meq/L 136-145 tnqg=560) POTASSIUM (BEAKER) (test 4.1 meq/L 3.5-5.1 vgnt=305) CHLORIDE (BEAKER) (test 101 meq/L 98-107 huho=681) CO2 (BEAKER) (test 30 meq/L 22-29 fimi=479) BLOOD UREA NITROGEN 21 mg/dL 7-21 (BEAKER) (test bvvl=514) CREATININE (BEAKER) (test 2.00 mg/dL 0.57-1.25 iult=206) GLUCOSE RANDOM (BEAKER) 93 mg/dL 70-105 (test fron=470) CALCIUM (BEAKER) (test 8.2 mg/dL 8.4-10.2 ypbo=770) EGFR (BEAKER) (test 35 mL/min/1.73 sq m ESTIMATED GFR IS NOT mrcd=5916) ACCURATE CREATININE CLEARANCE IN PREDICTING GLOMERULAR FILTRATION RATE. ESTIMATED GFR IS NOT APPLICABLE FOR DIALYSIS PATIENTS. POCT-GLUCOSE [id number] 19:53:00 Test Item Value Reference Range Comments POC-GLUCOSE METER (BEAKER) 125 mg/dL 70-110 TESTED AT [address] (test rjaw=7460) [facility] [address] SPUTUM CULTURE + GRAM [id number] 17:02:00 Test Item Value Reference Range Comments CULTURE (BEAKER) 2+ Capnocytophaga species (test pzwn=6024) GRAM STAIN RESULT 1+ WBCs (BEAKER) (test zepr=7009) GRAM STAIN RESULT 0-5 epithelial cells (BEAKER) (test dmdk=881122) GRAM STAIN RESULT <1+ gram positive cocci (BEAKER) (test in pairs qqud=656956) 2+ Normal respiratory arsalan presentBLOOD GAS, [id number] 15:26:00 Test Item Value Reference Range Comments PH ARTERIAL (BEAKER) (test qcvx=405) 7.29 7.35-7.45 PCO2 ARTERIAL (BEAKER) (test ywxp=274) 61 mmHg 35-45 PO2 ARTERIAL (BEAKER) (test xvmu=752) 69 mmHg 80-90 O2 SATURATION ARTERIAL (BEAKER) (test kaal=250) 91.2 % 96.0-97.0 HCO3 ARTERIAL (BEAKER) (test sold=469) 29 mmol/L 21-29 BASE EXCESS ARTERIAL (BEAKER) (test gihc=644) 1.3 mmol/L -2.0-3.0 PATIENT TEMPERATURE (BEAKER) (test dvth=2643) 37.0 C FIO2 (BEAKER) (test uvas=4342) 30.0 % [id number] 15:16:00 Test Item Value Reference Range Comments MAGNESIUM (BEAKER) (test afoa=942) 1.8 mg/dL 1.6-2.6 BASIC METABOLIC [id number] 15:16:00 Test Item Value Reference Range Comments SODIUM (BEAKER) (test 135 meq/L 136-145 lzog=349) POTASSIUM (BEAKER) (test 4.0 meq/L 3.5-5.1 pxfl=760) CHLORIDE (BEAKER) (test 101 meq/L 98-107 zivy=626) CO2 (BEAKER) (test 30 meq/L 22-29 pltb=901) BLOOD UREA NITROGEN 20 mg/dL 7-21 (BEAKER) (test dcrt=128) CREATININE (BEAKER) (test 1.92 mg/dL 0.57-1.25 njpy=241) GLUCOSE RANDOM (BEAKER) 102 mg/dL 70-105 (test oqnd=438) CALCIUM (BEAKER) (test 8.2 mg/dL 8.4-10.2 avpc=426) EGFR (BEAKER) (test 36 mL/min/1.73 sq m ESTIMATED GFR IS NOT bdji=8512) ACCURATE CREATININE CLEARANCE IN PREDICTING GLOMERULAR FILTRATION RATE. ESTIMATED GFR IS NOT APPLICABLE FOR DIALYSIS PATIENTS. [id number] 11:54:00 Test Item Value Reference Range Comments MAGNESIUM (BEAKER) (test kbag=320) 1.7 mg/dL 1.6-2.6 BASIC METABOLIC [id number] 11:54:00 Test Item Value Reference Range Comments SODIUM (BEAKER) (test 136 meq/L 136-145 onam=788) POTASSIUM (BEAKER) (test 4.1 meq/L 3.5-5.1 kpdb=562) CHLORIDE (BEAKER) (test 102 meq/L 98-107 gsmh=667) CO2 (BEAKER) (test 30 meq/L 22-29 xjog=561) BLOOD UREA NITROGEN 19 mg/dL 7-21 (BEAKER) (test uofo=057) CREATININE (BEAKER) (test 1.80 mg/dL 0.57-1.25 rlgp=674) GLUCOSE RANDOM (BEAKER) 92 mg/dL 70-105 (test pbid=354) CALCIUM (BEAKER) (test 8.3 mg/dL 8.4-10.2 prtu=270) EGFR (BEAKER) (test 39 mL/min/1.73 sq m ESTIMATED GFR IS NOT gprt=9541) ACCURATE CREATININE CLEARANCE IN PREDICTING GLOMERULAR FILTRATION RATE. ESTIMATED GFR IS NOT APPLICABLE FOR DIALYSIS PATIENTS. BLOOD GAS, [id number] 10:31:00 Test Item Value Reference Range Comments PH ARTERIAL (BEAKER) (test xcrc=350) 7.31 7.35-7.45 PCO2 ARTERIAL (BEAKER) (test bzsw=486) 63 mm Hg 35-45 PO2 ARTERIAL (BEAKER) (test korb=047) 52 mm Hg 80-90 O2 SATURATION ARTERIAL (BEAKER) (test fggh=658) 82.6 % 96.0-97.0 HCO3 ARTERIAL (BEAKER) (test xtpa=126) 31 mmol/L 21-29 BASE EXCESS ARTERIAL (BEAKER) (test kkwh=250) 3.5 mmol/L -2.0-3.0 PATIENT TEMPERATURE (BEAKER) (test hjxz=6731) 37.0 FIO2 (BEAKER) (test soos=5501) 24.0 POCT-GLUCOSE [id number] 08:46:00 Test Item Value Reference Range Comments POC-GLUCOSE METER (BEAKER) 100 mg/dL 70-110 TESTED AT [facility] [address], [place] (test tkje=0629) [facility] [address] LACTIC ACID, ARTERIAL, WHOLE [id number] 07:23:00 Test Item Value Reference Range Comments LACTATE BLOOD ARTERIAL (2) (BEAKER) (test 0.9 mmol/L 0.5-2.2 opkb=1737) Effective 10/24/2015: Units/Reference Range ChangeNew: 0.5-2.2 mmol/L Previous: 5 -20 mg/dLBLOOD GAS, [id number] 07:04:00 Test Item Value Reference Range Comments PH ARTERIAL (BEAKER) (test xvnn=138) 7.32 7.35-7.45 PCO2 ARTERIAL (BEAKER) (test rkfg=683) 61 mmHg 35-45 PO2 ARTERIAL (BEAKER) (test kczw=447) 236 mmHg 80-90 O2 SATURATION ARTERIAL (BEAKER) (test nryd=893) 99.4 % 96.0-97.0 HCO3 ARTERIAL (BEAKER) (test xdpq=026) 31 mmol/L 21-29 BASE EXCESS ARTERIAL (BEAKER) (test tkbc=349) 3.8 mmol/L -2.0-3.0 PATIENT TEMPERATURE (BEAKER) (test dqhu=7714) 36.7 C FIO2 (BEAKER) (test yswc=8213) 30.0 % CBC W/PLT COUNT & AUTO [id number] 06:47:00 Test Item Value Reference Range Comments WHITE BLOOD CELL COUNT (BEAKER) (test szkd=138) 6.0 K/ L 3.5-10.5 RED BLOOD CELL COUNT (BEAKER) (test gkmg=982) 3.30 M/ L 4.63-6.08 HEMOGLOBIN (BEAKER) (test nqme=908) 8.9 GM/DL 13.7-17.5 HEMATOCRIT (BEAKER) (test upbw=595) 31.4 % 40.1-51.0 MEAN CORPUSCULAR VOLUME (BEAKER) (test pryl=611) 95.2 fL 79.0-92.2 MEAN CORPUSCULAR HEMOGLOBIN (BEAKER) (test 27.0 pg 25.7-32.2 kubv=735) MEAN CORPUSCULAR HEMOGLOBIN CONC (BEAKER) (test 28.3 GM/DL 32.3-36.5 psch=494) RED CELL DISTRIBUTION WIDTH (BEAKER) (test 18.6 % 11.6-14.4 rwjh=566) PLATELET COUNT (BEAKER) (test rkbp=250) 46 K/CU MM 150-450 MEAN PLATELET VOLUME (BEAKER) (test ykzq=519) 11.7 fL 9.4-12.4 NUCLEATED RED BLOOD CELLS (BEAKER) (test 0 /100 WBC 0-0 okvk=159) NEUTROPHILS RELATIVE PERCENT (BEAKER) (test 76 % hneh=887) LYMPHOCYTES RELATIVE PERCENT (BEAKER) (test 7 % uuxw=382) MONOCYTES RELATIVE PERCENT (BEAKER) (test 11 % ikte=230) EOSINOPHILS RELATIVE PERCENT (BEAKER) (test 6 % tuif=055) BASOPHILS RELATIVE PERCENT (BEAKER) (test 0 % jmqd=196) NEUTROPHILS ABSOLUTE COUNT (BEAKER) (test 4.52 K/ L 1.78-5.38 qmqw=887) LYMPHOCYTES ABSOLUTE COUNT (BEAKER) (test 0.42 K/ L 1.32-3.57 wdoa=803) MONOCYTES ABSOLUTE COUNT (BEAKER) (test ymim=080) 0.66 K/ L 0.30-0.82 EOSINOPHILS ABSOLUTE COUNT (BEAKER) (test 0.35 K/ L 0.04-0.54 cloc=927) BASOPHILS ABSOLUTE COUNT (BEAKER) (test ouci=037) 0.01 K/ L 0.01-0.08 IMMATURE GRANULOCYTES-RELATIVE PERCENT (BEAKER) 0 % 0-1 (test jjhg=9482) COMPREHENSIVE METABOLIC [id number] 06:45:00 Test Item Value Reference Range Comments TOTAL PROTEIN (BEAKER) 6.7 gm/dL 6.0-8.3 (test hihv=858) ALBUMIN (BEAKER) (test 2.6 g/dL 3.5-5.0 uded=2875) ALKALINE PHOSPHATASE 103 U/L 40-150 (BEAKER) (test zqry=824) BILIRUBIN TOTAL (BEAKER) 1.3 mg/dL 0.2-1.2 (test mecw=236) SODIUM (BEAKER) (test 136 meq/L 136-145 gplq=404) POTASSIUM (BEAKER) (test 4.1 meq/L 3.5-5.1 fphc=346) CHLORIDE (BEAKER) (test 103 meq/L 98-107 wvrp=017) CO2 (BEAKER) (test 29 meq/L 22-29 tcgh=594) BLOOD UREA NITROGEN 19 mg/dL 7-21 (BEAKER) (test phvo=835) CREATININE (BEAKER) (test 1.84 mg/dL 0.57-1.25 rqac=523) GLUCOSE RANDOM (BEAKER) 93 mg/dL 70-105 (test vpdx=631) CALCIUM (BEAKER) (test 8.3 mg/dL 8.4-10.2 gwol=910) AST (SGOT) (BEAKER) (test 18 U/L 5-34 mldm=595) ALT (SGPT) (BEAKER) (test 10 U/L 6-55 crad=972) EGFR (BEAKER) (test 38 mL/min/1.73 sq m ESTIMATED GFR IS NOT pcuz=8014) ACCURATE CREATININE CLEARANCE IN PREDICTING GLOMERULAR FILTRATION RATE. ESTIMATED GFR IS NOT APPLICABLE FOR DIALYSIS PATIENTS. CBC W/PLT COUNT & AUTO [id number] 06:44:00 Test Item Value Reference Range Comments WHITE BLOOD CELL COUNT (BEAKER) (test jwmr=838) 6.1 K/ L 3.5-10.5 RED BLOOD CELL COUNT (BEAKER) (test ggig=239) 3.29 M/ L 4.63-6.08 HEMOGLOBIN (BEAKER) (test veqk=639) 8.8 GM/DL 13.7-17.5 HEMATOCRIT (BEAKER) (test cqcr=227) 31.3 % 40.1-51.0 MEAN CORPUSCULAR VOLUME (BEAKER) (test qmiy=546) 95.1 fL 79.0-92.2 MEAN CORPUSCULAR HEMOGLOBIN (BEAKER) (test 26.7 pg 25.7-32.2 rrxw=855) MEAN CORPUSCULAR HEMOGLOBIN CONC (BEAKER) (test 28.1 GM/DL 32.3-36.5 yfkq=569) RED CELL DISTRIBUTION WIDTH (BEAKER) (test 18.7 % 11.6-14.4 iqfb=767) PLATELET COUNT (BEAKER) (test oape=331) 38 K/CU MM 150-450 MEAN PLATELET VOLUME (BEAKER) (test cflr=522) 10.9 fL 9.4-12.4 NUCLEATED RED BLOOD CELLS (BEAKER) (test 0 /100 WBC 0-0 tgjk=564) NEUTROPHILS RELATIVE PERCENT (BEAKER) (test 75 % ujyq=817) LYMPHOCYTES RELATIVE PERCENT (BEAKER) (test 6 % yofd=224) MONOCYTES RELATIVE PERCENT (BEAKER) (test 12 % rkur=448) EOSINOPHILS RELATIVE PERCENT (BEAKER) (test 6 % pfzy=264) BASOPHILS RELATIVE PERCENT (BEAKER) (test 0 % lsdf=331) NEUTROPHILS ABSOLUTE COUNT (BEAKER) (test 4.57 K/ L 1.78-5.38 awja=791) LYMPHOCYTES ABSOLUTE COUNT (BEAKER) (test 0.37 K/ L 1.32-3.57 drnj=701) MONOCYTES ABSOLUTE COUNT (BEAKER) (test ddps=433) 0.75 K/ L 0.30-0.82 EOSINOPHILS ABSOLUTE COUNT (BEAKER) (test 0.34 K/ L 0.04-0.54 ovny=649) BASOPHILS ABSOLUTE COUNT (BEAKER) (test beeg=339) 0.01 K/ L 0.01-0.08 IMMATURE GRANULOCYTES-RELATIVE PERCENT (BEAKER) 0 % 0-1 (test zbqc=5634) [id number] 06:14:00 Test Item Value Reference Range Comments PHOSPHORUS (BEAKER) (test cirg=336) 2.8 mg/dL 2.3-4.7 [id number] 06:14:00 Test Item Value Reference Range Comments MAGNESIUM (BEAKER) (test fvxg=120) 1.9 mg/dL 1.6-2.6 BASIC METABOLIC [id number] 06:14:00 Test Item Value Reference Range Comments SODIUM (BEAKER) (test 136 meq/L 136-145 dnyp=617) POTASSIUM (BEAKER) (test 4.1 meq/L 3.5-5.1 yioj=825) CHLORIDE (BEAKER) (test 103 meq/L 98-107 klsx=751) CO2 (BEAKER) (test 28 meq/L 22-29 mhtb=602) BLOOD UREA NITROGEN 19 mg/dL 7-21 (BEAKER) (test wcxb=255) CREATININE (BEAKER) (test 1.85 mg/dL 0.57-1.25 iyho=506) GLUCOSE RANDOM (BEAKER) 95 mg/dL 70-105 (test vvpp=238) CALCIUM (BEAKER) (test 8.3 mg/dL 8.4-10.2 sheo=000) EGFR (BEAKER) (test 38 mL/min/1.73 sq m ESTIMATED GFR IS NOT ltms=9143) ACCURATE CREATININE CLEARANCE IN PREDICTING GLOMERULAR FILTRATION RATE. ESTIMATED GFR IS NOT APPLICABLE FOR DIALYSIS PATIENTS. HEPATIC FUNCTION [id number] 06:14:00 Test Item Value Reference Range Comments TOTAL PROTEIN (BEAKER) (test uzxa=645) 6.8 gm/dL 6.0-8.3 ALBUMIN (BEAKER) (test uium=4452) 2.7 g/dL 3.5-5.0 BILIRUBIN TOTAL (BEAKER) (test iutj=435) 1.3 mg/dL 0.2-1.2 BILIRUBIN DIRECT (BEAKER) (test rgae=582) 0.9 mg/dL 0.1-0.5 ALKALINE PHOSPHATASE (BEAKER) (test sbcd=199) 103 U/L 40-150 AST (SGOT) (BEAKER) (test yxdj=819) 16 U/L 5-34 ALT (SGPT) (BEAKER) (test nint=033) 10 U/L 6-55 [id number] 06:03:00 Test Item Value Reference Range Comments PARTIAL THROMBOPLASTIN TIME (BEAKER) (test 45.7 seconds 22.5-36.0 qync=299) PROTHROMBIN [id number] 06:02:00 Test Item Value Reference Range Comments PROTIME (BEAKER) (test vvcs=964) 18.4 seconds 11.7-14.7 INR (BEAKER) (test jyfe=198) 1.5 <=5.9 RECOMMENDED COUMADIN/WARFARIN INR THERAPY RANGESSTANDARD DOSE: 2.0 - 3.0 Includes: PROPHYLAXIS forvenous thrombosis, systemic embolization; TREATMENT for venous thrombosis and/or pulmonary embolus.HIGH RISK: Target INR is 2.5-3.5 for patients with mechanical heart valves.BLOOD GAS, [id number] 05:41:00 Test Item Value Reference Range Comments PH ARTERIAL (BEAKER) (test pakf=022) 7.34 7.35-7.45 PCO2 ARTERIAL (BEAKER) (test iytw=032) 54 mmHg 35-45 PO2 ARTERIAL (BEAKER) (test lqkn=392) 109 mmHg 80-90 O2 SATURATION ARTERIAL (BEAKER) (test athi=062) 97.7 % 96.0-97.0 HCO3 ARTERIAL (BEAKER) (test lany=214) 28 mmol/L 21-29 BASE EXCESS ARTERIAL (BEAKER) (test uxoy=812) 1.9 mmol/L -2.0-3.0 PATIENT TEMPERATURE (BEAKER) (test qfwl=1106) 36.7 C FIO2 (BEAKER) (test armd=4566) 30.0 % POCT-GLUCOSE [id number] 05:17:00 Test Item Value Reference Range Comments POC-GLUCOSE METER (BEAKER) 93 mg/dL 70-110 TESTED AT [address] (test iuab=9091) [facility] [address] RAD, CHEST, 1 VIEW, NON [id number] 03:51:00Reason for exam:->hypercapnic respiratory failureShould this be performed at the bedside?->YesFINAL REPORT CLINICAL INDICATION: Respiratory failure Comparison: The cardiomediastinal contours are stable. Bilateral parenchymal and pleural opacities are order previous. There is no pneumothorax. Signed: Britton Esquivel MDReport Verified Date/Time: 11/07/2017 03:51:36 Reading Location: [address] Reading Room BLOOD GAS, [id number] 02:24:00 Test Item Value Reference Range Comments PH ARTERIAL (BEAKER) (test kzos=364) 7.24 7.35-7.45 PCO2 ARTERIAL (BEAKER) (test pvqv=645) 71 mmHg 35-45 PO2 ARTERIAL (BEAKER) (test kfeu=974) 71 mmHg 80-90 O2 SATURATION ARTERIAL (BEAKER) (test iyex=942) 91.2 % 96.0-97.0 HCO3 ARTERIAL (BEAKER) (test prrk=368) 30 mmol/L 21-29 BASE EXCESS ARTERIAL (BEAKER) (test wftt=723) 1.1 mmol/L -2.0-3.0 PATIENT TEMPERATURE (BEAKER) (test emwu=2728) 36.7 C FIO2 (BEAKER) (test bvyk=4541) 30.0 % BLOOD GAS, [id number] 00:03:00 Test Item Value Reference Range Comments PH ARTERIAL (BEAKER) (test vnsa=912) 7.24 7.35-7.45 PCO2 ARTERIAL (BEAKER) (test pbfq=791) 77 mmHg 35-45 PO2 ARTERIAL (BEAKER) (test pvkb=915) 73 mmHg 80-90 O2 SATURATION ARTERIAL (BEAKER) (test tujl=922) 91.8 % 96.0-97.0 HCO3 ARTERIAL (BEAKER) (test gtyu=021) 32 mmol/L 21-29 BASE EXCESS ARTERIAL (BEAKER) (test cdxj=760) 3.3 mmol/L -2.0-3.0 PATIENT TEMPERATURE (BEAKER) (test aykh=2994) 36.6 C FIO2 (BEAKER) (test imft=2542) 35.0 % POCT-GLUCOSE [id number] 23:16:00 Test Item Value Reference Range Comments POC-GLUCOSE METER (BEAKER) 110 mg/dL 70-110 TESTED AT [address] (test zfqt=7927) [facility] [address] BLOOD GAS, [id number] 09:56:00 Test Item Value Reference Range Comments PH ARTERIAL (BEAKER) (test lsxq=863) 7.24 7.35-7.45 PCO2 ARTERIAL (BEAKER) (test mwsi=239) 69 mmHg 35-45 PO2 ARTERIAL (BEAKER) (test updz=337) 227 mmHg 80-90 O2 SATURATION ARTERIAL (BEAKER) (test czdl=872) 99.3 % 96.0-97.0 HCO3 ARTERIAL (BEAKER) (test inxp=024) 29 mmol/L 21-29 BASE EXCESS ARTERIAL (BEAKER) (test oqhd=845) 0.8 mmol/L -2.0-3.0 PATIENT TEMPERATURE (BEAKER) (test adph=8697) 36.5 C FIO2 (BEAKER) (test uzfg=3829) 30.0 % BLOOD GAS, [id number] 09:14:00 Test Item Value Reference Range Comments PH ARTERIAL (BEAKER) (test eekc=100) 7.27 7.35-7.45 PCO2 ARTERIAL (BEAKER) (test hrrp=207) 71 mmHg 35-45 PO2 ARTERIAL (BEAKER) (test mcob=291) 81 mmHg 80-90 O2 SATURATION ARTERIAL (BEAKER) (test mmnf=766) 94.0 % 96.0-97.0 HCO3 ARTERIAL (BEAKER) (test pltk=048) 32 mmol/L 21-29 BASE EXCESS ARTERIAL (BEAKER) (test mvut=782) 4.2 mmol/L -2.0-3.0 PATIENT TEMPERATURE (BEAKER) (test hckk=1663) 37.0 C FIO2 (BEAKER) (test tdix=9454) 35.0 % POCT-GLUCOSE [id number] 04:52:00 Test Item Value Reference Range Comments POC-GLUCOSE METER (BEAKER) 94 mg/dL 70-110 TESTED AT [address] (test dccm=2672) [place] [address] BLOOD GAS, [id number] 04:35:00 Test Item Value Reference Range Comments PH ARTERIAL (BEAKER) (test bfav=666) 7.27 7.35-7.45 PCO2 ARTERIAL (BEAKER) (test dcio=410) 76 mmHg 35-45 PO2 ARTERIAL (BEAKER) (test jdfj=112) 279 mmHg 80-90 O2 SATURATION ARTERIAL (BEAKER) (test rmgv=193) 99.5 % 96.0-97.0 HCO3 ARTERIAL (BEAKER) (test qmdm=082) 34 mmol/L 21-29 BASE EXCESS ARTERIAL (BEAKER) (test poli=051) 4.2 mmol/L -2.0-3.0 PATIENT TEMPERATURE (BEAKER) (test actn=5059) 36.5 C FIO2 (BEAKER) (test lzyr=5174) 60.0 % BASIC METABOLIC [id number] 04:06:00 Test Item Value Reference Range Comments SODIUM (BEAKER) (test 143 meq/L 136-145 tptu=473) POTASSIUM (BEAKER) (test 3.9 meq/L 3.5-5.1 azcn=920) CHLORIDE (BEAKER) (test 108 meq/L 98-107 bewl=373) CO2 (BEAKER) (test 29 meq/L 22-29 ejux=486) BLOOD UREA NITROGEN 11 mg/dL 7-21 (BEAKER) (test dsua=158) CREATININE (BEAKER) (test 1.23 mg/dL 0.57-1.25 tgel=339) GLUCOSE RANDOM (BEAKER) 103 mg/dL 70-105 (test uwpr=447) CALCIUM (BEAKER) (test 8.8 mg/dL 8.4-10.2 etds=890) EGFR (BEAKER) (test mL/min/1.73 sq m INSUFFICIENT CLINICAL DATA dcbl=8580) TO CALCULATE ESTIMATED GFR. [id number] 04:05:00 Test Item Value Reference Range Comments PHOSPHORUS (BEAKER) (test usdu=460) 3.1 mg/dL 2.3-4.7 [id number] 04:05:00 Test Item Value Reference Range Comments MAGNESIUM (BEAKER) (test kgdb=079) 2.0 mg/dL 1.6-2.6 HEPATIC FUNCTION [id number] 04:05:00 Test Item Value Reference Range Comments TOTAL PROTEIN (BEAKER) (test vgdd=009) 7.4 gm/dL 6.0-8.3 ALBUMIN (BEAKER) (test ascj=7834) 3.0 g/dL 3.5-5.0 BILIRUBIN TOTAL (BEAKER) (test wfxx=037) 1.5 mg/dL 0.2-1.2 BILIRUBIN DIRECT (BEAKER) (test tbiy=756) 1.1 mg/dL 0.1-0.5 ALKALINE PHOSPHATASE (BEAKER) (test bnxw=985) 97 U/L 40-150 AST (SGOT) (BEAKER) (test xsxh=612) 24 U/L 5-34 ALT (SGPT) (BEAKER) (test ffcs=658) 11 U/L 6-55 BRONCHIAL CULTURE + GRAM [id number] 03:58:00 Test Item Value Reference Range Comments CULTURE (BEAKER) (test rcsg=9327) No growth GRAM STAIN RESULT (BEAKER) (test 2+ WBCs sfhj=6419) GRAM STAIN RESULT (BEAKER) (test No organisms seen kpgs=78087) [id number] 03:57:00 Test Item Value Reference Range Comments PARTIAL THROMBOPLASTIN TIME (BEAKER) (test 47.1 seconds 22.5-36.0 vdfg=063) PROTHROMBIN [id number] 03:56:00 Test Item Value Reference Range Comments PROTIME (BEAKER) (test vnba=587) 19.8 seconds 11.7-14.7 INR (BEAKER) (test amkw=661) 1.7 <=5.9 RECOMMENDED COUMADIN/WARFARIN INR THERAPY RANGESSTANDARD DOSE: 2.0 - 3.0 Includes: PROPHYLAXIS forvenous thrombosis, systemic embolization; TREATMENT for venous thrombosis and/or pulmonary embolus.HIGH RISK: Target INR is 2.5-3.5 for patients with mechanical heart valves.BRONCHIAL CULTURE + GRAM [id number] 03:53:00 Test Item Value Reference Range Comments CULTURE (BEAKER) (test zcse=2042) No growth GRAM STAIN RESULT (BEAKER) (test <1+ WBCs efwg=0145) GRAM STAIN RESULT (BEAKER) (test No organisms seen dttu=05954) CBC W/PLT COUNT & AUTO [id number] 03:48:00 Test Item Value Reference Range Comments WHITE BLOOD CELL COUNT (BEAKER) (test ldci=011) 8.0 K/ L 3.5-10.5 RED BLOOD CELL COUNT (BEAKER) (test xbnz=480) 3.22 M/ L 4.63-6.08 HEMOGLOBIN (BEAKER) (test dwdm=007) 8.6 GM/DL 13.7-17.5 HEMATOCRIT (BEAKER) (test mikp=217) 29.9 % 40.1-51.0 MEAN CORPUSCULAR VOLUME (BEAKER) (test hwrl=443) 92.9 fL 79.0-92.2 MEAN CORPUSCULAR HEMOGLOBIN (BEAKER) (test 26.7 pg 25.7-32.2 zsny=190) MEAN CORPUSCULAR HEMOGLOBIN CONC (BEAKER) (test 28.8 GM/DL 32.3-36.5 kjdc=217) RED CELL DISTRIBUTION WIDTH (BEAKER) (test 18.8 % 11.6-14.4 evel=850) PLATELET COUNT (BEAKER) (test hfjo=135) 33 K/CU MM 150-450 MEAN PLATELET VOLUME (BEAKER) (test xcrx=792) 9.6 fL 9.4-12.4 NUCLEATED RED BLOOD CELLS (BEAKER) (test 0 /100 WBC 0-0 jgfb=711) NEUTROPHILS RELATIVE PERCENT (BEAKER) (test 81 % cqge=897) LYMPHOCYTES RELATIVE PERCENT (BEAKER) (test 4 % lcyv=032) MONOCYTES RELATIVE PERCENT (BEAKER) (test 11 % rhov=598) EOSINOPHILS RELATIVE PERCENT (BEAKER) (test 4 % njrh=963) BASOPHILS RELATIVE PERCENT (BEAKER) (test 0 % xlbw=314) NEUTROPHILS ABSOLUTE COUNT (BEAKER) (test 6.51 K/ L 1.78-5.38 ghpw=744) LYMPHOCYTES ABSOLUTE COUNT (BEAKER) (test 0.29 K/ L 1.32-3.57 eujv=351) MONOCYTES ABSOLUTE COUNT (BEAKER) (test ojqu=018) 0.88 K/ L 0.30-0.82 EOSINOPHILS ABSOLUTE COUNT (BEAKER) (test 0.29 K/ L 0.04-0.54 ekll=075) BASOPHILS ABSOLUTE COUNT (BEAKER) (test geot=703) 0.01 K/ L 0.01-0.08 IMMATURE GRANULOCYTES-RELATIVE PERCENT (BEAKER) 1 % 0-1 (test vyer=6204) POCT-GLUCOSE [id number] 00:10:00 Test Item Value Reference Range Comments POC-GLUCOSE METER (BEAKER) 110 mg/dL 70-110 TESTED AT [address] (test yzyg=2775) [place] [address] POCT-GLUCOSE [id number] 20:09:00 Test Item Value Reference Range Comments POC-GLUCOSE METER (BEAKER) 90 mg/dL 70-110 TESTED AT [address] (test sprn=3341) [place] [id number] BODY FLUID CELL COUNT WITH [id number] 17:48:00 Test Item Value Reference Range Comments APPEARANCE FLUID (BEAKER) (test hdao=080) Moderately Bloody Clear COLOR FLUID (BEAKER) (test yzwz=533) Niru Colorless, Straw RBC FLUID (BEAKER) (test aeoj=198) [address] /cu mm <=1 ADJUSTED WBC FLUID (BEAKER) (test 115 /cu mm <=5 dwza=6175) LINING CELLS (BEAKER) (test suwy=2589) 0 /cu mm <=1 NEUTROPHILS FLUID (BEAKER) (test 16 % byqx=0983) LYMPHS FLUID (BEAKER) (test pwof=618) 29 % MONO/MACROPHAGE FLUID (BEAKER) (test 55 % faru=102) EOSINOPHILS FLUID (BEAKER) (test 0 % kzev=305) BASO FLUID (BEAKER) (test psqo=883) 0 % CONTAINER BODY FLUID (BEAKER) (test EDTA Tube tari=0532) PROTEIN, BODY [id number] 15:47:00 Test Item Value Reference Range Comments PROTEIN FLUID (BEAKER) (test ivbc=225) 3.4 g/dL Absence of reference range indicates that normals have not been defined.Assay performance has not been validated for this type of specimen.GLUCOSE, BODY [id number] 15:47:00 Test Item Value Reference Range Comments GLUCOSE, BODY FLUID (BEAKER) (test zkgc=7374) 99 mg/dL Absence of reference range indicates that normals have not been defined.Assay performance has not been validated for this type of specimen.ALBUMIN, BODY [id number] 15:47:00 Test Item Value Reference Range Comments ALBUMIN FLUID (BEAKER) (test eeei=063) 1.5 gm/dL Reference Range: No Normals Assay performance has not been validated for this type of specimen.BLOOD GAS, [id number] 15:39:00 Test Item Value Reference Range Comments PH ARTERIAL (BEAKER) (test esxs=898) 7.29 7.35-7.45 PCO2 ARTERIAL (BEAKER) (test xitz=075) 60 mmHg 35-45 PO2 ARTERIAL (BEAKER) (test cdeg=749) 68 mmHg 80-90 O2 SATURATION ARTERIAL (BEAKER) (test bhlg=963) 91.7 % 96.0-97.0 HCO3 ARTERIAL (BEAKER) (test vldw=911) 29 mmol/L 21-29 BASE EXCESS ARTERIAL (BEAKER) (test fmki=342) 1.2 mmol/L -2.0-3.0 PATIENT TEMPERATURE (BEAKER) (test zapo=7270) 36.5 C FIO2 (BEAKER) (test uylw=9938) 28.0 % POCT-GLUCOSE [id number] 15:30:00 Test Item Value Reference Range Comments POC-GLUCOSE METER (BEAKER) 110 mg/dL 70-110 TESTED AT [address] (test yxnm=2239) [facility] [address] BLOOD GAS, [id number] 14:36:00 Test Item Value Reference Range Comments PH ARTERIAL (BEAKER) (test ziyf=491) 7.28 7.35-7.45 PCO2 ARTERIAL (BEAKER) (test fnzt=790) 62 mmHg 35-45 PO2 ARTERIAL (BEAKER) (test yamw=794) 105 mmHg 80-90 O2 SATURATION ARTERIAL (BEAKER) (test amsz=303) 97.3 % 96.0-97.0 HCO3 ARTERIAL (BEAKER) (test spxz=287) 29 mmol/L 21-29 BASE EXCESS ARTERIAL (BEAKER) (test dvzs=500) 0.8 mmol/L -2.0-3.0 PATIENT TEMPERATURE (BEAKER) (test rxuh=1832) 36.0 C FIO2 (BEAKER) (test xrye=1539) 32.0 % B-TYPE NATRIURETIC FACTOR (BNP)[id number] 13:48:00 Test Item Value Reference Range Comments B-TYPE NATRIURETIC PEPTIDE (BEAKER) (test 1010 pg/mL 0-100 httn=985) POCT-GLUCOSE [id number] 11:34:00 Test Item Value Reference Range Comments POC-GLUCOSE METER (BEAKER) 96 mg/dL 70-110 TESTED AT [address] (test ktoz=5582) [place] [id number] BLOOD GAS, [id number] 09:48:00 Test Item Value Reference Range Comments PH ARTERIAL (BEAKER) (test khvl=374) 7.30 7.35-7.45 PCO2 ARTERIAL (BEAKER) (test gxdc=120) 57 mmHg 35-45 PO2 ARTERIAL (BEAKER) (test pyiw=893) 156 mmHg 80-90 O2 SATURATION ARTERIAL (BEAKER) (test tguf=573) 98.8 % 96.0-97.0 HCO3 ARTERIAL (BEAKER) (test bkqh=927) 28 mmol/L 21-29 BASE EXCESS ARTERIAL (BEAKER) (test awxs=823) 0.7 mmol/L -2.0-3.0 PATIENT TEMPERATURE (BEAKER) (test rgmd=0868) 36.5 C FIO2 (BEAKER) (test pamt=2014) 32.0 % URINE [id number] 09:43:00 Test Item Value Reference Range Comments CULTURE (BEAKER) (test znpt=5457) No growth POCT-GLUCOSE [id number] 08:43:00 Test Item Value Reference Range Comments POC-GLUCOSE METER (BEAKER) 89 mg/dL 70-110 TESTED AT [address] (test eypq=5693) [place] [address] CBC W/PLT COUNT & AUTO [id number] 08:04:00 Test Item Value Reference Range Comments WHITE BLOOD CELL COUNT (BEAKER) (test enrm=470) 10.7 K/ L 3.5-10.5 RED BLOOD CELL COUNT (BEAKER) (test nqwn=922) 3.22 M/ L 4.63-6.08 HEMOGLOBIN (BEAKER) (test zsug=327) 8.7 GM/DL 13.7-17.5 HEMATOCRIT (BEAKER) (test ydad=182) 29.3 % 40.1-51.0 MEAN CORPUSCULAR VOLUME (BEAKER) (test trdu=518) 91.0 fL 79.0-92.2 MEAN CORPUSCULAR HEMOGLOBIN (BEAKER) (test 27.0 pg 25.7-32.2 cecc=979) MEAN CORPUSCULAR HEMOGLOBIN CONC (BEAKER) (test 29.7 GM/DL 32.3-36.5 uwlb=361) RED CELL DISTRIBUTION WIDTH (BEAKER) (test 18.6 % 11.6-14.4 qddi=599) PLATELET COUNT (BEAKER) (test rkxq=314) 26 K/CU MM 150-450 MEAN PLATELET VOLUME (BEAKER) (test jzmc=337) 10.3 fL 9.4-12.4 NUCLEATED RED BLOOD CELLS (BEAKER) (test 0 /100 WBC 0-0 tnsb=607) RAD, CHEST, 1 VIEW, NON [id number] 05:05:00Reason for exam:->acute hypoxemic and hypercapnic respiratory failureShould this be performed at the bedside?->YesFINAL REPORT RAD, CHEST, 1 VIEW, NON DEPT INDICATION: acute hypoxemic and hypercapnic respiratory failure COMPARISON : Prior day's exam FINDINGS: Portable frontal view of the chest. IMPRESSION: Support Lines: Endotracheal and enteric tubes have been removed. Lungs and pleura: No significant improvement in bilateral effusions and associated relaxation atelectasis. No pneumothorax.Heart and mediastinum: Stable cardiomegaly. Stable surgical changes.Additional findings: None. Signed: JR Olivares Robert MDReport Verified Date/Time: 11/05/2017 05:05:03 Reading Location: [facility] C013Y CT Body Reading Room BLOOD GAS, [id number] 05: 02:00 Test Item Value Reference Range Comments PH ARTERIAL (BEAKER) (test nvbd=451) 7.27 7.35-7.45 PCO2 ARTERIAL (BEAKER) (test tudq=334) 64 mmHg 35-45 PO2 ARTERIAL (BEAKER) (test xysb=451) 152 mmHg 80-90 O2 SATURATION ARTERIAL (BEAKER) (test sznx=031) 98.7 % 96.0-97.0 HCO3 ARTERIAL (BEAKER) (test wdhk=654) 29 mmol/L 21-29 BASE EXCESS ARTERIAL (BEAKER) (test davk=537) 1.2 mmol/L -2.0-3.0 PATIENT TEMPERATURE (BEAKER) (test bzuj=9505) 36.5 C FIO2 (BEAKER) (test btmu=3175) 32.0 % BASIC METABOLIC [id number] 04:28:00 Test Item Value Reference Range Comments SODIUM (BEAKER) (test 139 meq/L 136-145 jefo=261) POTASSIUM (BEAKER) (test 3.5 meq/L 3.5-5.1 ztng=968) CHLORIDE (BEAKER) (test 104 meq/L 98-107 vqlf=904) CO2 (BEAKER) (test 28 meq/L 22-29 rrkv=251) BLOOD UREA NITROGEN 27 mg/dL 7-21 (BEAKER) (test ynfe=913) CREATININE (BEAKER) (test 2.00 mg/dL 0.57-1.25 pzbw=651) GLUCOSE RANDOM (BEAKER) 98 mg/dL 70-105 (test vcrm=381) CALCIUM (BEAKER) (test 8.2 mg/dL 8.4-10.2 tryw=139) EGFR (BEAKER) (test mL/min/1.73 sq m INSUFFICIENT CLINICAL DATA asiq=8740) TO CALCULATE ESTIMATED GFR. [id number] 04:26:00 Test Item Value Reference Range Comments PHOSPHORUS (BEAKER) (test iznx=934) 5.6 mg/dL 2.3-4.7 [id number] 04:26:00 Test Item Value Reference Range Comments MAGNESIUM (BEAKER) (test qxgv=091) 2.3 mg/dL 1.6-2.6 HEPATIC FUNCTION [id number] 04:26:00 Test Item Value Reference Range Comments TOTAL PROTEIN (BEAKER) (test seqi=134) 7.0 gm/dL 6.0-8.3 ALBUMIN (BEAKER) (test yurk=3853) 2.8 g/dL 3.5-5.0 BILIRUBIN TOTAL (BEAKER) (test pwrr=854) 1.9 mg/dL 0.2-1.2 BILIRUBIN DIRECT (BEAKER) (test plqq=777) 1.3 mg/dL 0.1-0.5 ALKALINE PHOSPHATASE (BEAKER) (test tdlc=756) 90 U/L 40-150 AST (SGOT) (BEAKER) (test shgi=840) 25 U/L 5-34 ALT (SGPT) (BEAKER) (test wjed=758) 8 U/L 6-55 [id number] 04:25:00 Test Item Value Reference Range Comments PARTIAL THROMBOPLASTIN TIME (BEAKER) (test 47.1 seconds 22.5-36.0 nqwt=919) PROTHROMBIN [id number] 04:24:00 Test Item Value Reference Range Comments PROTIME (BEAKER) (test oprl=605) 23.5 seconds 11.7-14.7 INR (BEAKER) (test ukqz=083) 2.1 <=5.9 RECOMMENDED COUMADIN/WARFARIN INR THERAPY RANGESSTANDARD DOSE: 2.0 - 3.0 Includes: PROPHYLAXIS forvenous thrombosis, systemic embolization; TREATMENT for venous thrombosis and/or pulmonary embolus.HIGH RISK: Target INR is 2.5-3.5 for patients with mechanical heart valves.BLOOD GAS, [id number] 02:00:00 Test Item Value Reference Range Comments PH ARTERIAL (BEAKER) (test cjvp=582) 7.26 7.35-7.45 PCO2 ARTERIAL (BEAKER) (test qlkx=057) 69 mmHg 35-45 PO2 ARTERIAL (BEAKER) (test njgl=427) 77 mmHg 80-90 O2 SATURATION ARTERIAL (BEAKER) (test qdqy=829) 93.4 % 96.0-97.0 HCO3 ARTERIAL (BEAKER) (test wogb=320) 30 mmol/L 21-29 BASE EXCESS ARTERIAL (BEAKER) (test ddxd=967) 2.1 mmol/L -2.0-3.0 PATIENT TEMPERATURE (BEAKER) (test yxqq=1702) 36.5 C FIO2 (BEAKER) (test gjvu=3912) 28.0 % BLOOD GAS, [id number] 01:06:00 Test Item Value Reference Range Comments PH ARTERIAL (BEAKER) (test ahui=952) 7.23 7.35-7.45 PCO2 ARTERIAL (BEAKER) (test wohr=743) 73 mmHg 35-45 PO2 ARTERIAL (BEAKER) (test wkuf=376) 132 mmHg 80-90 O2 SATURATION ARTERIAL (BEAKER) (test twro=078) 98.0 % 96.0-97.0 HCO3 ARTERIAL (BEAKER) (test oucs=905) 30 mmol/L 21-29 BASE EXCESS ARTERIAL (BEAKER) (test akpp=288) 1.2 mmol/L -2.0-3.0 PATIENT TEMPERATURE (BEAKER) (test okkv=6105) 36.5 C FIO2 (BEAKER) (test rbnl=7906) 35.0 % BLOOD GAS, [id number] 00:42:00 Test Item Value Reference Range Comments PH ARTERIAL (BEAKER) (test hjqc=595) 7.17 7.35-7.45 PCO2 ARTERIAL (BEAKER) (test gaqw=490) 86 mmHg 35-45 PO2 ARTERIAL (BEAKER) (test mhgh=763) 204 mmHg 80-90 O2 SATURATION ARTERIAL (BEAKER) (test geiu=053) 99.0 % 96.0-97.0 HCO3 ARTERIAL (BEAKER) (test hxct=410) 31 mmol/L 21-29 BASE EXCESS ARTERIAL (BEAKER) (test kfcs=523) 0.7 mmol/L -2.0-3.0 PATIENT TEMPERATURE (BEAKER) (test bcpg=1773) 36.5 C FIO2 (BEAKER) (test bukz=6546) 100.0 % POCT-GLUCOSE [id number] 23:30:00 Test Item Value Reference Range Comments POC-GLUCOSE METER (BEAKER) 96 mg/dL 70-110 TESTED AT [facility] [address], [place] (test rvwi=6998) [facility] [id number] POCT-GLUCOSE [id number] 19:56:00 Test Item Value Reference Range Comments POC-GLUCOSE METER (BEAKER) 113 mg/dL 70-110 TESTED AT [place] [id number], [place] (test blwg=7255) [facility] [address] U/S, EXTREMITY (NON-VASCULAR), LEFT, [id number] 18:32:00Reason for exam:- >LLE, eval for abscessShould this be performed at the bedside?->YesFINAL REPORT INDICATION:Focal swelling of the left lower extremity. Evaluate for abscess. COMPARISON: None. TECHNIQUE: Ultrasound of the left lower extremity, nonvascular. FINDINGS / IMPRESSION:Ultrasound was performed in the area of clinical concern. This was in the left lower leg laterally and posteriorly. Diffuse edema of the subcutaneous fat was demonstrated with a 2.4 x 2.2 x 0.9 cm superficial collection, may represent abscess or seroma. Signed: Brandon Amador MDReportVerified Date/Time: 2017 18:32:04 Reading Location: [facility] C013W Consult Reading Room U/ S, ABDOMINAL, WITH [id number] 18:29:00Reason for exam:->Cirrhosis, rule out ascites and liver lesionsFINAL REPORT INDICATION :57-year-old male with cirrhosis. Evaluate for ascitesand for liver mass. TECHNIQUE:Ultrasound of the Abdomen and Doppler evaluation. Sonographic evaluation of the abdomen was performed, including color flow and spectral Doppler analysis of the abdominal vasculature. COMPARISON:Abdomen pelvis CT exam September 07, 2016 FINDINGS:Pancreas is not visualized because of bowel gas. [...] the portal venous system demonstrated. Proper hepatic artery,right hepatic artery, left hepatic artery were visualized and demonstrate elevated resistive indicesof 0.9, 0.8, and 0.8 respectively. Hepatic venous [...] x 6.0 x 5.7 cm. No renal massor hydronephrosis demonstrated. Spleen is normal in size measuring 15 cm in length. There is moderate upper abdominal free fluid (ascites). Right pleural effusion also noted. IMPRESSION:Cirrhosis and moderate ascites. No sonographic evidence of hepatocellular carcinoma. Signed: Brandon Amador MDReport Verified Date/Time: 11/04/2017 18:29:17 Reading Location: [address] Consult Reading Room POCT-GLUCOSE [id number] 17:27:00 Test Item Value Reference Range Comments POC-GLUCOSE METER (BEAKER) 95 mg/dL 70-110 TESTED AT [address] (test acvt=6559) [place] [address] [id number] 16:02:00Medical Cytology Report Case: [id number] Authorizing Provider: Malena Viera, Collected: 11/03/2017 0302 OrderingLocation: [place] [address] ICU Received: 2017 1220 Pathologist: Lonny Barnard MD Specimen: Lung, Left Upper and Middle Lobes LEFT UPPER AND MIDDLE LOBES LUNG, BAL (CYTOSPINS): - NO MALIGNANT CELLS IDENTIFIED Signing Pathologist Direct Phone Line: [phone] signed by Lonny Barnard MD on 11/04/2017 at 4:02 [id number] of liver; encephalopathy LEFT UPPER AND MIDDLE LOBES LUNG BALPrepared 4 cytospins from 10 ml blood- tinged fluidCollected: [id number]: [id number] [facility], Departmentof Pathology, [address] [place] [address], [facility] [place], [facility], [address] [place] [address], [facility] [place], Department of [facility]ology, [address] [place] [address], Tel [phone]-YVRXGTD [id number] 11:46:00 Test Item Value Reference Range Comments POC-GLUCOSE METER (BEAKER) 96 mg/dL 70-110 TESTED AT [address] (test rbiq=3353) [place] [address] RAD, ABDOMEN/KUB, 1 VIEW [id number] 09:21:00Reason for exam:->abdominal distentionFINAL REPORT History: Abdominal distention. FINDINGS: Abdomen, two views: Twoviews of the abdomen show moderate colonic gas , stool and minimal small bowel gas in a nonspecific pattern without evidence for obstruction. No visible free air or evidence for perforation though if this is a strong clinical concern, additional imaging would be needed to exclude this possibility. A nasogastric tube is present, its tip overlying the expected location of the gastric antrum. A right femoral nontunneled dialysis catheter is present, its tip lying near the junction of the right iliac vein and IVC. No abnormal abdominal or pelvic calcifications are identified. A rectal tube is noted. Small pelvic phleboliths are also seen. Bones are unremarkable. IMPRESSION: 1. Unremarkable abdomen witha nonspecific bowel gas pattern. Signed : Mamie Felixort Verified Date/Time: 11/04/2017 09:21:20 Reading Location: [facility] Radiology Reading Room POCT-GLUCOSE [id number] 08:49:00 Test Item Value Reference Range Comments POC-GLUCOSE METER (BEAKER) 99 mg/dL 70-110 TESTED AT [address] (test wvcj=9418) [facility] [address] BASIC METABOLIC [id number] 06:41:00 Test Item Value Reference Range Comments SODIUM (BEAKER) (test 135 meq/L 136-145 anzs=121) POTASSIUM (BEAKER) (test 3.5 meq/L 3.5-5.1 ohjn=598) CHLORIDE (BEAKER) (test 104 meq/L 98-107 kmht=378) CO2 (BEAKER) (test 25 meq/L 22-29 xcnc=557) BLOOD UREA NITROGEN 23 mg/dL 7-21 (BEAKER) (test ofde=997) CREATININE (BEAKER) (test 1.61 mg/dL 0.57-1.25 fkoh=536) GLUCOSE RANDOM (BEAKER) 101 mg/dL 70-105 (test zatd=362) CALCIUM (BEAKER) (test 8.2 mg/dL 8.4-10.2 rgwd=650) EGFR (BEAKER) (test mL/min/1.73 sq m INSUFFICIENT CLINICAL DATA sjlm=8504) TO CALCULATE ESTIMATED GFR. Specimen slightly [id number] 06:38:00 Test Item Value Reference Range Comments PHOSPHORUS (BEAKER) (test qoqa=813) 1.7 mg/dL 2.3-4.7 [id number] 06:38:00 Test Item Value Reference Range Comments MAGNESIUM (BEAKER) (test jpkn=025) 1.8 mg/dL 1.6-2.6 HEPATIC FUNCTION [id number] 06:38:00 Test Item Value Reference Range Comments TOTAL PROTEIN (BEAKER) (test detr=076) 6.9 gm/dL 6.0-8.3 ALBUMIN (BEAKER) (test gjmg=9233) 2.8 g/dL 3.5-5.0 BILIRUBIN TOTAL (BEAKER) (test mtwg=828) 2.3 mg/dL 0.2-1.2 BILIRUBIN DIRECT (BEAKER) (test mhtn=381) 1.4 mg/dL 0.1-0.5 ALKALINE PHOSPHATASE (BEAKER) (test ojwr=517) 90 U/L 40-150 AST (SGOT) (BEAKER) (test vrfx=074) 21 U/L 5-34 ALT (SGPT) (BEAKER) (test uwjc=304) 8 U/L 6-55 Specimen slightly ictericRAD, CHEST, 1 VIEW, NON [id number] 06:05:00Reason for exam:->RESPIRATORY DISTRESSShould this be performed at the bedside?-> YesFINAL REPORT RAD, CHEST, 1 VIEW, NON DEPT INDICATION: RESPIRATORY DISTRESS COMPARISON: Prior day's exam FINDINGS: Portable frontal view of the chest. IMPRESSION: Support Lines: Stable. Lungs and pleura: Stable moderate pleural effusions. No new consolidation. No pneumothorax.Heart and mediastinum: Stable contours. Stable surgical changes.Additional findings: None. Signed: JR Olivares Robert MDReport Verified Date/Time: 11/04/2017 06:05:11 Reading Location: [facility] C013Y CT Body Reading Room POCT-GLUCOSE [id number] 06:03:00 Test Item Value Reference Range Comments POC-GLUCOSE METER (BEAKER) 109 mg/dL 70-110 TESTED AT [address] (test ruia=3041) [facility] [address] [id number] 05:58:00 Test Item Value Reference Range Comments ALPHA-1 ANTITRYPSIN (BEAKER) (test nati=005) 184.70 mg/dL 90.00-200.00 CBC W/PLT COUNT & AUTO [id number] 05:52:00 Test Item Value Reference Range Comments WHITE BLOOD CELL COUNT (BEAKER) (test okxe=828) 6.4 K/ L 3.5-10.5 RED BLOOD CELL COUNT (BEAKER) (test eawt=209) 3.45 M/ L 4.63-6.08 HEMOGLOBIN (BEAKER) (test fmrw=101) 9.3 GM/DL 13.7-17.5 HEMATOCRIT (BEAKER) (test guxp=047) 29.5 % 40.1-51.0 MEAN CORPUSCULAR VOLUME (BEAKER) (test qevt=791) 85.5 fL 79.0-92.2 MEAN CORPUSCULAR HEMOGLOBIN (BEAKER) (test 27.0 pg 25.7-32.2 wbhl=405) MEAN CORPUSCULAR HEMOGLOBIN CONC (BEAKER) (test 31.5 GM/DL 32.3-36.5 ytpv=526) RED CELL DISTRIBUTION WIDTH (BEAKER) (test 18.4 % 11.6-14.4 uuhd=960) PLATELET COUNT (BEAKER) (test xrgu=856) 25 K/CU MM 150-450 MEAN PLATELET VOLUME (BEAKER) (test shyk=365) 8.5 fL 9.4-12.4 NUCLEATED RED BLOOD CELLS (BEAKER) (test 0 /100 WBC 0-0 upba=306) NEUTROPHILS RELATIVE PERCENT (BEAKER) (test 85 % jokw=230) LYMPHOCYTES RELATIVE PERCENT (BEAKER) (test 6 % bjsf=921) MONOCYTES RELATIVE PERCENT (BEAKER) (test 6 % vbqf=595) EOSINOPHILS RELATIVE PERCENT (BEAKER) (test 2 % lmid=605) BASOPHILS RELATIVE PERCENT (BEAKER) (test 0 % qyee=141) NEUTROPHILS ABSOLUTE COUNT (BEAKER) (test 5.44 K/ L 1.78-5.38 ygus=662) LYMPHOCYTES ABSOLUTE COUNT (BEAKER) (test 0.38 K/ L 1.32-3.57 fyzg=367) MONOCYTES ABSOLUTE COUNT (BEAKER) (test aagb=903) 0.39 K/ L 0.30-0.82 EOSINOPHILS ABSOLUTE COUNT (BEAKER) (test 0.13 K/ L 0.04-0.54 cujx=378) BASOPHILS ABSOLUTE COUNT (BEAKER) (test jbbx=946) 0.01 K/ L 0.01-0.08 IMMATURE GRANULOCYTES-RELATIVE PERCENT (BEAKER) 1 % 0-1 (test znln=7591) PROTHROMBIN [id number] 05:50:00 Test Item Value Reference Range Comments PROTIME (BEAKER) (test tzsc=631) 23.5 seconds 11.7-14.7 INR (BEAKER) (test lcjp=197) 2.1 <=5.9 RECOMMENDED COUMADIN/WARFARIN INR THERAPY RANGESSTANDARD DOSE: 2.0 - 3.0 Includes: PROPHYLAXIS forvenous thrombosis, systemic embolization; TREATMENT for venous thrombosis and/or pulmonary embolus.HIGH RISK: Target INR is 2.5-3.5 for patients with mechanical heart valves.[id number] 05:50:00 Test Item Value Reference Range Comments PARTIAL THROMBOPLASTIN TIME (BEAKER) (test 46.6 seconds 22.5-36.0 ayun=868) BLOOD GAS, [id number] 05:47:00 Test Item Value Reference Range Comments PH ARTERIAL (BEAKER) (test nihb=327) 7.51 7.35-7.45 PCO2 ARTERIAL (BEAKER) (test bmcr=884) 37 mmHg 35-45 PO2 ARTERIAL (BEAKER) (test uebh=166) 66 mmHg 80-90 O2 SATURATION ARTERIAL (BEAKER) (test flik=932) 95.0 % 96.0-97.0 HCO3 ARTERIAL (BEAKER) (test zwav=282) 29 mmol/L 21-29 BASE EXCESS ARTERIAL (BEAKER) (test jqxc=175) 5.2 mmol/L -2.0-3.0 PATIENT TEMPERATURE (BEAKER) (test llxu=1027) 36.7 C FIO2 (BEAKER) (test ovpg=5987) 30.0 % POCT-GLUCOSE [id number] 02:05:00 Test Item Value Reference Range Comments POC-GLUCOSE METER (BEAKER) 90 mg/dL 70-110 TESTED AT [address] (test yoqm=7643) [place] [address] POCT-GLUCOSE [id number] 21:31:00 Test Item Value Reference Range Comments POC-GLUCOSE METER (BEAKER) 91 mg/dL 70-110 TESTED AT [address] (test doem=8042) [place] [address] POCT-GLUCOSE [id number] 15:13:00 Test Item Value Reference Range Comments POC-GLUCOSE METER (BEAKER) 108 mg/dL 70-110 TESTED AT [address] (test hzuq=6820) [place] [address] SPIN/CONCENTRATION [id number] 13:59:00 Test Item Value Reference Range Comments CONCENTRATION CHARGED (BEAKER) (test stoh=0225) Done SPIN/CONCENTRATION [id number] 13:59:00 Test Item Value Reference Range Comments CONCENTRATION CHARGED (BEAKER) (test cdbd=5513) Done [id number] 13:58:00 Test Item Value Reference Range Comments PROCALCITONIN (BEAKER) (test edxa=3957) 0.60 ng/mL <0.05 SEPSIS RISK (ng/mL)Low: 0.05-0.50Intermediate: 0.51-2.00High: & gt;=2.01POCT-GLUCOSE [id number] 11:08:00 Test Item Value Reference Range Comments POC-GLUCOSE METER (BEAKER) 102 mg/dL 70-110 TESTED AT [address] (test grlw=2056) [place] [address] PERIPHERAL BLOOD SMEAR - PATHOLOGIST [id number] 10:26:00 Test Item Value Reference Range Comments RBC MORPHOLOGY (BEAKER) (test Hypochromasia auyv=0846) RBC MORPHOLOGY (BEAKER) (test Anisocytosis fvha=23432) RBC MORPHOLOGY (BEAKER) (test Polychromasia jkno=67445) WBC MORPHOLOGY (BEAKER) (test See comment vsib=0985) PLT MORPHOLOGY (BEAKER) (test See comment vlfz=3223) PERIPHERAL SMR REVIEW WBCs normal in number with rare (BEAKER) (test iuql=6932) atypical lymphocytes. Platelets decreased in number with increased number of large forms and mild platelet clumping with few small platelet aggregates identified. Numerical value may not reflect true platelet count. [id number] Filippo Winter MD (electronic (BEAKER) (test jhjl=5784) signature) POCT-GLUCOSE [id number] 08:12:00 Test Item Value Reference Range Comments POC-GLUCOSE METER (BEAKER) 137 mg/dL 70-110 TESTED AT [facility] [address] [facility] [place] (test slrl=2633) [facility] [address] COMPREHENSIVE METABOLIC [id number] 07:56:00 Test Item Value Reference Range Comments TOTAL PROTEIN (BEAKER) 7.2 gm/dL 6.0-8.3 (test pkeg=208) ALBUMIN (BEAKER) (test 3.1 g/dL 3.5-5.0 ytwy=7217) ALKALINE PHOSPHATASE 95 U/L 40-150 (BEAKER) (test dpqw=828) BILIRUBIN TOTAL (BEAKER) 2.4 mg/dL 0.2-1.2 (test rlxm=080) SODIUM (BEAKER) (test 136 meq/L 136-145 xedy=504) POTASSIUM (BEAKER) (test 3.8 meq/L 3.5-5.1 mpus=877) CHLORIDE (BEAKER) (test 102 meq/L 98-107 btsj=916) CO2 (BEAKER) (test 22 meq/L 22-29 wzqg=874) BLOOD UREA NITROGEN 41 mg/dL 7-21 (BEAKER) (test xrhy=074) CREATININE (BEAKER) (test 2.18 mg/dL 0.57-1.25 tajq=805) GLUCOSE RANDOM (BEAKER) 89 mg/dL 70-105 (test oeze=131) CALCIUM (BEAKER) (test 8.6 mg/dL 8.4-10.2 lzyv=660) AST (SGOT) (BEAKER) (test 18 U/L 5-34 odba=581) ALT (SGPT) (BEAKER) (test 6 U/L 6-55 zpub=669) EGFR (BEAKER) (test mL/min/1.73 sq m INSUFFICIENT CLINICAL DATA mtrm=3651) TO CALCULATE ESTIMATED GFR. Specimen slightly ictericRAD, CHEST, 1 VIEW, NON [id number] 07:56:00Reason for exam:->respiratory failureShould this be performed at the bedside?-> YesFINAL REPORT CLINICAL HISTORY: respiratory failure TECHNIQUE: 1 view of the chest. COMPARISON: 11/02/2017 IMPRESSION: The ETT and NGT appear unchanged. Pulmonary vascular prominence is again seen with bilateral lower lung airspace opacities and moderate pleural effusions. Cardiomegaly is again seen with a pacemaker. Signed: Paco Sneed MDReport Verified Date/Time: 11/03/2017 07:56:58 Reading Location: [facility] Radiology Reading Room Electronically signed by: CARLOS SNEED M.D. on 07:56 [id number] 07:55:00 Test Item Value Reference Range Comments PHOSPHORUS (BEAKER) (test zluc=007) 2.7 mg/dL 2.3-4.7 [id number] 07:55:00 Test Item Value Reference Range Comments MAGNESIUM (BEAKER) (test ygcr=261) 2.0 mg/dL 1.6-2.6 HEPATIC FUNCTION [id number] 07:55:00 Test Item Value Reference Range Comments TOTAL PROTEIN (BEAKER) (test damh=973) 7.2 gm/dL 6.0-8.3 ALBUMIN (BEAKER) (test szhz=9548) 3.1 g/dL 3.5-5.0 BILIRUBIN TOTAL (BEAKER) (test vgqs=861) 2.4 mg/dL 0.2-1.2 BILIRUBIN DIRECT (BEAKER) (test tcpx=389) 1.3 mg/dL 0.1-0.5 ALKALINE PHOSPHATASE (BEAKER) (test pxdi=139) 95 U/L 40-150 AST (SGOT) (BEAKER) (test stja=297) 18 U/L 5-34 ALT (SGPT) (BEAKER) (test unia=733) 6 U/L 6-55 Specimen slightly ictericBLOOD GAS, [id number] 07:38:00 Test Item Value Reference Range Comments PH ARTERIAL (BEAKER) (test aixq=920) 7.46 7.35-7.45 PCO2 ARTERIAL (BEAKER) (test kuis=218) 33 mmHg 35-45 PO2 ARTERIAL (BEAKER) (test twug=272) 120 mmHg 80-90 O2 SATURATION ARTERIAL (BEAKER) (test uuxf=001) 98.6 % 96.0-97.0 HCO3 ARTERIAL (BEAKER) (test rupp=324) 23 mmol/L 21-29 BASE EXCESS ARTERIAL (BEAKER) (test kpxo=626) -0.2 mmol/L -2.0-3.0 PATIENT TEMPERATURE (BEAKER) (test nsfw=7912) 36.6 C FIO2 (BEAKER) (test bcsg=5422) 40.0 % TROPONIN [id number] 07:34:00 Test Item Value Reference Range Comments TROPONIN I (BEAKER) (test cuyw=858) 0.05 ng/mL 0.00-0.03 Troponin I (TnI) levels must be interpreted [...] failure, acidosis, acute neurological disease, and persistent tachyarrhythmia.CBC W/PLT COUNT & AUTO [id number] 07:27:00 Test Item Value Reference Range Comments WHITE BLOOD CELL COUNT (BEAKER) (test motr=922) 8.1 K/ L 3.5-10.5 RED BLOOD CELL COUNT (BEAKER) (test dfwn=925) 3.34 M/ L 4.63-6.08 HEMOGLOBIN (BEAKER) (test xadc=682) 9.0 GM/DL 13.7-17.5 HEMATOCRIT (BEAKER) (test wltc=845) 28.7 % 40.1-51.0 MEAN CORPUSCULAR VOLUME (BEAKER) (test txpb=716) 85.9 fL 79.0-92.2 MEAN CORPUSCULAR HEMOGLOBIN (BEAKER) (test 26.9 pg 25.7-32.2 kyxi=496) MEAN CORPUSCULAR HEMOGLOBIN CONC (BEAKER) (test 31.4 GM/DL 32.3-36.5 ynhr=259) RED CELL DISTRIBUTION WIDTH (BEAKER) (test 18.1 % 11.6-14.4 gjjt=004) PLATELET COUNT (BEAKER) (test hgyr=192) 58 K/CU MM 150-450 MEAN PLATELET VOLUME (BEAKER) (test yzwj=034) 10.4 fL 9.4-12.4 NUCLEATED RED BLOOD CELLS (BEAKER) (test 0 /100 WBC 0-0 dpjb=973) NEUTROPHILS RELATIVE PERCENT (BEAKER) (test 82 % gmdc=294) LYMPHOCYTES RELATIVE PERCENT (BEAKER) (test 4 % htsq=788) MONOCYTES RELATIVE PERCENT (BEAKER) (test 12 % sjef=123) EOSINOPHILS RELATIVE PERCENT (BEAKER) (test 2 % pibg=262) BASOPHILS RELATIVE PERCENT (BEAKER) (test 0 % oygr=333) NEUTROPHILS ABSOLUTE COUNT (BEAKER) (test 6.62 K/ L 1.78-5.38 avrd=304) LYMPHOCYTES ABSOLUTE COUNT (BEAKER) (test 0.31 K/ L 1.32-3.57 cdfv=581) MONOCYTES ABSOLUTE COUNT (BEAKER) (test suin=139) 0.95 K/ L 0.30-0.82 EOSINOPHILS ABSOLUTE COUNT (BEAKER) (test 0.13 K/ L 0.04-0.54 ktcm=698) BASOPHILS ABSOLUTE COUNT (BEAKER) (test lfxq=233) 0.01 K/ L 0.01-0.08 IMMATURE GRANULOCYTES-RELATIVE PERCENT (BEAKER) 1 % 0-1 (test evpx=3808) [id number] 07:21:00 Test Item Value Reference Range Comments PARTIAL THROMBOPLASTIN TIME (BEAKER) (test 44.0 seconds 22.5-36.0 uimk=700) PROTHROMBIN [id number] 07:20:00 Test Item Value Reference Range Comments PROTIME (BEAKER) (test qnoo=734) 25.4 seconds 11.7-14.7 INR (BEAKER) (test ldtm=547) 2.3 <=5.9 RECOMMENDED COUMADIN/WARFARIN INR THERAPY RANGESSTANDARD DOSE: 2.0 - 3.0 Includes: PROPHYLAXIS forvenous thrombosis, systemic embolization; TREATMENT for venous thrombosis and/or pulmonary embolus.HIGH RISK: Target INR is 2.5-3.5 for patients with mechanical heart valves.POCT-GLUCOSE [id number] 07:19:00 Test Item Value Reference Range Comments POC-GLUCOSE METER (BEAKER) 72 mg/dL 70-110 TESTED AT [facility] [address] [facility] (test psct=7998) [facility] [address] BODY FLUID CELL COUNT WITH [id number] 04:25:00 Test Item Value Reference Range Comments APPEARANCE FLUID (BEAKER) (test lhyh=396) Hazy Clear COLOR FLUID (BEAKER) (test cwey=124) Yellow Colorless, Straw RBC FLUID (BEAKER) (test ryzl=073) 3875 /cu mm <=1 ADJUSTED WBC FLUID (BEAKER) (test qqnt=1488) 78 /cu mm <=5 LINING CELLS (BEAKER) (test eviu=1152) 7 /cu mm <=1 NEUTROPHILS FLUID (BEAKER) (test tbov=6658) 9 % LYMPHS FLUID (BEAKER) (test dtfj=908) 6 % MONO/MACROPHAGE FLUID (BEAKER) (test iyuq=147) 85 % EOSINOPHILS FLUID (BEAKER) (test wuqt=444) 0 % BASO FLUID (BEAKER) (test zais=487) 0 % CONTAINER BODY FLUID (BEAKER) (test gtsc=4545) EDTA Tube CBC WITH PLATELET COUNT + MANUAL [id number] 04:09:00 Test Item Value Reference Range Comments WHITE BLOOD CELL COUNT 7.3 K/ L 3.5-10.5 (BEAKER) (test ajco=403) RED BLOOD CELL COUNT (BEAKER) 3.23 M/ L 4.63-6.08 (test vqpw=685) HEMOGLOBIN (BEAKER) (test 8.7 GM/DL 13.7-17.5 acdw=154) HEMATOCRIT (BEAKER) (test 27.8 % 40.1-51.0 fmog=981) MEAN CORPUSCULAR VOLUME 86.1 fL 79.0-92.2 (BEAKER) (test hark=427) MEAN CORPUSCULAR HEMOGLOBIN 26.9 pg 25.7-32.2 (BEAKER) (test zelm=767) MEAN CORPUSCULAR HEMOGLOBIN 31.3 GM/DL 32.3-36.5 CONC (BEAKER) (test yogv=746) RED CELL DISTRIBUTION WIDTH 17.9 % 11.6-14.4 (BEAKER) (test lyff=879) PLATELET COUNT (BEAKER) (test 61 K/CU MM 150-450 This is a corrected result. oggs=556) Previous result was 28 K/CU MM on 11/03/2017 at 0335 CDT MEAN PLATELET VOLUME (BEAKER) 11.2 fL 9.4-12.4 Unable to report due to (test ogvx=041) abnormal Platelet population distribution.This is an appended report. These results have been appended to a previously final verified report. NUCLEATED RED BLOOD CELLS 0 /100 WBC 0-0 (BEAKER) (test iato=445) POCT-GLUCOSE [id number] 04:06:00 Test Item Value Reference Range Comments POC-GLUCOSE METER (BEAKER) 109 mg/dL 70-110 TESTED AT [place] [id number] [facility] [place] (test hrvb=5056) [facility] [address] [id number] 03:14:00 Test Item Value Reference Range Comments FERRITIN (BEAKER) (test qqpx=746) 80 ng/mL 5-275 RAPID DRUG SCREEN, [id number] 03:09:00 Test Item Value Reference Range Comments BARBITURATE URINE (BEAKER) (test pnaa=700) Negative Negative BENZODIAZEPINE SCREEN URINE (BEAKER) (test Positive Negative cgww=861) COCAINE (METAB.) SCREEN (BEAKER) (test gvap=2729) Negative Negative METHADONE SCREEN (BEAKER) (test xrov=2374) Negative Negative OPIATE SCREEN URINE (BEAKER) (test gwzr=047) Positive Negative CANNABINOID SCREEN URINE (BEAKER) (test smae=746) Negative Negative AMPH/METHAMPH SCREEN (BEAKER) (test omzc=5134) Negative Negative PHENCYCLIDINE SCREEN URINE (BEAKER) (test kclb=928) Negative Negative OXYCODONE SCREEN URINE (BEAKER) (test ltuu=4859) Negative Negative DRUG CUTOFF CONC.Cocaine 300 ng/mL Cannabinoid 50 ng/mL Benzodiazepine 200 ng/mLBarbiturate 200 ng/ mLPhencyclidine 25 ng/mLOpiate 300 ng/mLMethadone 300 ng/mLAmphetamine/ 1000 ng/mL MethamphetamineOxycodone 300 ng/mLThis assay provides an unconfirmed qualitative test result for the clinical management of patients in emergency situations. Chain of custody not maintained. Some losl-fmi-cxzpzwu medications, as well as adulterants, may cause inaccurate results. Clinical correlation should be applied. A more comprehensive drug screen or confirmation of a detected drug may be performed upon request.POCT-GLUCOSE [id number] 03:07:00 Test Item Value Reference Range Comments POC-GLUCOSE METER (BEAKER) 142 mg/dL 70-110 TESTED AT [place] [id number] [facility] [place] (test ueky=6067) [place] [address] IRON, TIBC, % SAT. (WITHOUT FERRITIN)2017-11-03 02:53:00 Test Item Value Reference Range Comments IRON (BEAKER) (test rtye=361) 101 ug/dL 40-160 TOTAL IRON BINDING CAPACITY (BEAKER) (test 303 ug/dL 250-450 zszc=692) IRON % SATURATION (2) (BEAKER) (test einp=0275) 33 % 20-55 BLOOD GAS, [id number] 02:49:00 Test Item Value Reference Range Comments PH ARTERIAL (BEAKER) (test qopv=423) 7.51 7.35-7.45 PCO2 ARTERIAL (BEAKER) (test csix=895) 34 mmHg 35-45 PO2 ARTERIAL (BEAKER) (test hxwi=799) 341 mmHg 80-90 O2 SATURATION ARTERIAL (BEAKER) (test kzkc=014) 99.8 % 96.0-97.0 HCO3 ARTERIAL (BEAKER) (test sicl=758) 27 mmol/L 21-29 BASE EXCESS ARTERIAL (BEAKER) (test jufo=574) 3.4 mmol/L -2.0-3.0 PATIENT TEMPERATURE (BEAKER) (test offl=6483) 36.4 C FIO2 (BEAKER) (test rupa=2764) 60.0 % TROPONIN [id number] 02:29:00 Test Item Value Reference Range Comments TROPONIN I (BEAKER) (test aybg=119) 0.04 ng/mL 0.00-0.03 Troponin I (TnI) levels must be interpreted [...] failure, acidosis, acute neurological disease, and persistent tachyarrhythmia.POCT-GLUCOSE [id number] 01:36:00 Test Item Value Reference Range Comments POC-GLUCOSE METER (BEAKER) 85 mg/dL 70-110 TESTED AT [facility] [address] [place] [address] (test ufms=4418) [facility] [address] [address] BRAIN WITHOUT IV CONTRAST - [id number] 01:03:00Reason for exam:-> AMSFINAL REPORT CT BRAIN WITHOUT IV CONTRAST - PORTABLE INDICATION: AMS TECHNIQUE: Noncontrast portable axial CT imaging was obtained from the vertex to the skull base. Axial imageswere reconstructed using a bone algorithm. DOSE REDUCTION: [...] acute intracranial abnormality. Signed: JR Olivares Robert MDReport Verified Date/Time: 01:03:15 Reading Location: [facility] B1 C013Y CT Body Reading Room Electronicallysigned by: TABITHA OLIVARES on 11/03/2017 01:03 AMEOSINOPHIL SMEAR, [id number] 00:38:00 Test Item Value Reference Range Comments EOSINOPHIL SMEAR, URINE (BEAKER) (test No EOS seen No EOS seen efob=3206) ALBUMIN, BODY [id number] 00:16:00 Test Item Value Reference Range Comments ALBUMIN FLUID (BEAKER) (test alwg=146) 1.7 gm/dL Reference Range: No Normals Assay performance has not been validated for this type of specimen.PROTEIN, RANDOM [id number] 00:14:00 Test Item Value Reference Range Comments PROTEIN, URINE (BEAKER) (test vzsk=0897) 62 mg/dL 0-14 BODY FLUID CELL COUNT WITH [id number] 00:13:00 Test Item Value Reference Range Comments APPEARANCE FLUID (BEAKER) (test rkdr=869) Hazy Clear COLOR FLUID (BEAKER) (test wuko=443) Yellow Colorless, Straw RBC FLUID (BEAKER) (test vbfg=705) 1100 /cu mm <=1 ADJUSTED WBC FLUID (BEAKER) (test vbgh=3188) 140 /cu mm <=5 LINING CELLS (BEAKER) (test toql=8794) 0 /cu mm <=1 NEUTROPHILS FLUID (BEAKER) (test scup=2153) 2 % LYMPHS FLUID (BEAKER) (test layd=968) 22 % MONO/MACROPHAGE FLUID (BEAKER) (test qhdw=663) 76 % EOSINOPHILS FLUID (BEAKER) (test mtyp=759) 0 % BASO FLUID (BEAKER) (test uhar=255) 0 % CONTAINER BODY FLUID (BEAKER) (test ltgq=5541) EDTA Tube AMYLASE, BODY [id number] 00:08:00 Test Item Value Reference Range Comments AMYLASE FLUID (BEAKER) (test pjsc=745) 30 U/L Absence of reference range indicates that normals have not been defined.Assay performance has not been validated for this type of specimen.LACTATE DEHYDROGENASE (LDH), BODY [id number] 00:08:00 Test Item Value Reference Range Comments LACTATE DEHYDROGENASE FLUID (BEAKER) (test pvno=448) < U/L Absence of reference range indicates that normals have not been defined.Assay performance has not been validated for this type of specimen.PROTEIN, BODY [id number] 00:08:00 Test Item Value Reference Range Comments PROTEIN FLUID (BEAKER) (test gbeo=767) 4.1 g/dL Absence of reference range indicates that normals have not been defined.Assay performance has not been validated for this type of specimen.TRIGLYCERIDES, BODY [id number] 00:08:00 Test Item Value Reference Range Comments TRIGLYCERIDES FLUID (BEAKER) (test rjue=483) 37 mg/dL Reference Range: No Normals Assay performance has not been validated for this type of specimen.GLUCOSE, BODY [id number] 00:08:00 Test Item Value Reference Range Comments GLUCOSE, BODY FLUID (BEAKER) (test fift=6313) 95 mg/dL Absence of reference range indicates that normals have not been defined.Assay performance has not been validated for this type of specimen.GRAM [id number] 00:03:00 Test Item Value Reference Range Comments GRAM STAIN RESULT (BEAKER) (test <1+ WBCs ekeb=9534) GRAM STAIN RESULT (BEAKER) (test No organisms seen phpn=43896) OSMOLALITY, [id number] 23:51:00 Test Item Value Reference Range Comments OSMOLALITY URINE (BEAKER) (test ttri=102) 316 mOsm/kg 40-1400 HEPATITIS B SURFACE [id number] 22:53:00 Test Item Value Reference Range Comments HEPATITIS B SURFACE ANTIGEN (2) (BEAKER) (test Nonreactive Nonreactive tshn=6996) For chronic HD patients, draw HBsAg with each admission then every 30 days.HEPATITIS B SURFACE [id number] 22:53:00 Test Item Value Reference Range Comments HEPATITIS B SURFACE ANTIBODY (BEAKER) (test < mIU/mL <8.0 qlrp=857) HEPATITIS B CORE ANTIBODY, [id number] 22:44:00 Test Item Value Reference Range Comments HEPATITIS B CORE TOTAL ANTIBODY (BEAKER) (test Nonreactive Nonreactive ewnz=522) [id number] 22:27:00 Test Item Value Reference Range Comments FIBRINOGEN LEVEL (BEAKER) (test ugbi=300) 364 mg/dl 225-434 [id number] 22:19:00 Test Item Value Reference Range Comments MAGNESIUM (BEAKER) (test fdya=895) 2.5 mg/dL 1.6-2.6 [id number] 22:19:00 Test Item Value Reference Range Comments PHOSPHORUS (BEAKER) (test kpux=829) 6.4 mg/dL 2.3-4.7 RAD, CHEST, 1 VIEW, NON [id number] 21:27:00Reason for exam:-> intubationFINAL REPORT Comparison: 10/01/2016 TECHNIQUE: Single view of the chest FINDINGS: Tip of endotracheal tube projects 2.3 cm above the kristal. Nasogastric tube projects below the diaphragm. Small pleural effusions are suspected with nonspecific lower lobe airspace disease. No pneumothorax. Cardiac silhouette is enlarged as before. 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 No acute skeletal abnormality. Signed : Armaan Rodgers MDReport Verified Date/Time: 11/02/2017 21:27:01 Reading Location : [address] Consult Reading Room CREATININE, RANDOM [id number] 21:10:00 Test Item Value Reference Range Comments CREATININE URINE (BEAKER) (test yydg=382) 44.7 mg/dL Reference Range: No NormalsSODIUM, RANDOM [id number] 21:10:00 Test Item Value Reference Range Comments SODIUM URINE (BEAKER) (test ymul=477) 74 meq/L Reference Range: No NormalsUREA NITROGEN, RANDOM [id number] 21:10:00 Test Item Value Reference Range Comments UREA NITROGEN URINE (BEAKER) (test ivno=332) 229 mg/dL Reference Range: No [id number] 21:07:00 Test Item Value Reference Range Comments THYROID STIMULATING HORMONE (BEAKER) (test 5.14 uIU/mL 0.35-4.94 cxek=801) DIGOXIN [id number] 21:07:00 Test Item Value Reference Range Comments DIGOXIN LEVEL (BEAKER) (test lbrn=276) < ng/mL 0.8-2.0 URINALYSIS W/ [id number] 20:44:00 Test Item Value Reference Range Comments COLOR (BEAKER) (test uygw=810) [place] CLARITY (BEAKER) (test ckbl=079) [place]y SPECIFIC GRAVITY UA (BEAKER) (test ueap=707) 1.009 1.001-1.035 PH UA (BEAKER) (test ssec=846) 5.0 5.0-8.0 PROTEIN UA (BEAKER) (test oaqd=704) 30 mg/dL Negative GLUCOSE UA (BEAKER) (test zcjy=264) Negative Negative KETONES UA (BEAKER) (test pbxc=643) Negative Negative BILIRUBIN UA (BEAKER) (test sgzk=909) Negative Negative BLOOD UA (BEAKER) (test lwax=530) Large Negative NITRITE UA (BEAKER) (test qfxv=868) Negative Negative LEUKOCYTE ESTERASE UA (BEAKER) (test lcln=652) Moderate Negative UROBILINOGEN UA (BEAKER) (test zwuy=535) 0.2 mg/dL 0.2-1.0 RBC UA (BEAKER) (test obzf=451) 705 /HPF WBC UA (BEAKER) (test yzaz=663) 14 /HPF MUCUS (BEAKER) (test epui=1264) Rare SQUAMOUS EPITHELIAL (BEAKER) (test depm=600) 2 /HPF HYALINE CASTS (BEAKER) (test sqdg=296) 15 /LPF CASTS (BEAKER) (test duyf=4991) 10 /LPF SOURCE(BEAKER) (test jcji=2403) Urine, [place] BLOOD GAS, [id number] 20:31:00 Test Item Value Reference Range Comments PH ARTERIAL (BEAKER) (test cthr=877) 7.29 7.35-7.45 PCO2 ARTERIAL (BEAKER) (test zsmx=108) 59 mmHg 35-45 PO2 ARTERIAL (BEAKER) (test usvi=502) 168 mmHg 80-90 O2 SATURATION ARTERIAL (BEAKER) (test dmxo=422) 98.9 % 96.0-97.0 HCO3 ARTERIAL (BEAKER) (test qtev=380) 28 mmol/L 21-29 BASE EXCESS ARTERIAL (BEAKER) (test slqk=946) 0.1 mmol/L -2.0-3.0 PATIENT TEMPERATURE (BEAKER) (test mozm=3018) 36.1 C FIO2 (BEAKER) (test nmii=2070) 60.0 % B-TYPE NATRIURETIC FACTOR (BNP)2017-11-02 20:16:00 Test Item Value Reference Range Comments B-TYPE NATRIURETIC PEPTIDE (BEAKER) (test 521 pg/mL 0-100 sbyv=962) COMPREHENSIVE METABOLIC [id number] 20:16:00 Test Item Value Reference Range Comments TOTAL PROTEIN (BEAKER) 8.1 gm/dL 6.0-8.3 (test zdee=038) ALBUMIN (BEAKER) (test 3.1 g/dL 3.5-5.0 tibb=5102) ALKALINE PHOSPHATASE 120 U/L 40-150 (BEAKER) (test yroq=427) BILIRUBIN TOTAL (BEAKER) 1.5 mg/dL 0.2-1.2 (test wvsf=108) SODIUM (BEAKER) (test 130 meq/L 136-145 bisg=010) POTASSIUM (BEAKER) (test 5.2 meq/L 3.5-5.1 idll=046) CHLORIDE (BEAKER) (test 92 meq/L 98-107 nuef=812) CO2 (BEAKER) (test 27 meq/L 22-29 jjey=341) BLOOD UREA NITROGEN 81 mg/dL 7-21 (BEAKER) (test aono=485) CREATININE (BEAKER) (test 4.00 mg/dL 0.57-1.25 mgvk=407) GLUCOSE RANDOM (BEAKER) 82 mg/dL 70-105 (test mfuq=916) CALCIUM (BEAKER) (test 8.8 mg/dL 8.4-10.2 pzjk=207) AST (SGOT) (BEAKER) (test 20 U/L 5-34 hsvj=841) ALT (SGPT) (BEAKER) (test 9 U/L 6-55 breq=197) EGFR (BEAKER) (test mL/min/1.73 sq m INSUFFICIENT CLINICAL DATA fwnj=8804) TO CALCULATE ESTIMATED GFR. POCT-GLUCOSE [id number] 20:13:00 Test Item Value Reference Range Comments POC-GLUCOSE METER (BEAKER) 86 mg/dL 70-110 TESTED AT [facility] [address] [place] (test zyuo=1269) [facility] [address] CREATINE KINASE (CK), TOTAL AND [id number] 20:13:00 Test Item Value Reference Range Comments CREATINE KINASE TOTAL (BEAKER) (test stmk=907) 41 U/L 29-200 CREATINE KINASE-MB (BEAKER) (test eiic=243) 5.8 ng/mL 0.0-6.6 CREATINE KINASE-MB INDEX (BEAKER) (test otvr=739) 14.1 % CK-MB Reference Range:<6.7 Normal6.7-10.0 Borderline>10.0 AbnormalTROPONIN [id number] 20:13:00 Test Item Value Reference Range Comments TROPONIN I (BEAKER) (test dmbu=602) 0.03 ng/mL 0.00-0.03 Troponin I (TnI) levels must be interpreted [...] failure, acidosis, acute neurological disease, and persistent tachyarrhythmia.[id number] 20:10:00 Test Item Value Reference Range Comments PARTIAL THROMBOPLASTIN TIME (BEAKER) (test 49.2 seconds 22.5-36.0 enel=402) PROTHROMBIN [id number] 20:09:00 Test Item Value Reference Range Comments PROTIME (BEAKER) (test yokq=715) 28.4 seconds 11.7-14.7 INR (BEAKER) (test wlqq=740) 2.7 <=5.9 RECOMMENDED COUMADIN/WARFARIN INR THERAPY RANGESSTANDARD DOSE: 2.0 - 3.0 Includes: PROPHYLAXIS forvenous thrombosis, systemic embolization; TREATMENT for venous thrombosis and/or pulmonary embolus.HIGH RISK: Target INR is 2.5-3.5 for patients with mechanical heart valves.CBC W/PLT COUNT & AUTO [id number] 20:08:00 Test Item Value Reference Range Comments WHITE BLOOD CELL COUNT (BEAKER) (test tsyg=390) 4.6 K/ L 3.5-10.5 RED BLOOD CELL COUNT (BEAKER) (test igfm=413) 3.29 M/ L 4.63-6.08 HEMOGLOBIN (BEAKER) (test abis=065) 9.1 GM/DL 13.7-17.5 HEMATOCRIT (BEAKER) (test rzxp=032) 30.0 % 40.1-51.0 MEAN CORPUSCULAR VOLUME (BEAKER) (test qrtx=965) 91.2 fL 79.0-92.2 MEAN CORPUSCULAR HEMOGLOBIN (BEAKER) (test 27.7 pg 25.7-32.2 ffrs=613) MEAN CORPUSCULAR HEMOGLOBIN CONC (BEAKER) (test 30.3 GM/DL 32.3-36.5 sukz=343) RED CELL DISTRIBUTION WIDTH (BEAKER) (test 18.3 % 11.6-14.4 uhkv=396) PLATELET COUNT (BEAKER) (test dklu=603) 45 K/CU MM 150-450 MEAN PLATELET VOLUME (BEAKER) (test khte=122) 10.5 fL 9.4-12.4 NUCLEATED RED BLOOD CELLS (BEAKER) (test 0 /100 WBC 0-0 dxli=464) NEUTROPHILS RELATIVE PERCENT (BEAKER) (test 83 % civh=428) LYMPHOCYTES RELATIVE PERCENT (BEAKER) (test 6 % wopi=272) MONOCYTES RELATIVE PERCENT (BEAKER) (test 10 % vzlu=403) EOSINOPHILS RELATIVE PERCENT (BEAKER) (test 0 % fznj=271) BASOPHILS RELATIVE PERCENT (BEAKER) (test 0 % jvrm=850) NEUTROPHILS ABSOLUTE COUNT (BEAKER) (test 3.82 K/ L 1.78-5.38 jdvy=687) LYMPHOCYTES ABSOLUTE COUNT (BEAKER) (test 0.26 K/ L 1.32-3.57 fzxn=266) MONOCYTES ABSOLUTE COUNT (BEAKER) (test eaye=589) 0.45 K/ L 0.30-0.82 EOSINOPHILS ABSOLUTE COUNT (BEAKER) (test 0.02 K/ L 0.04-0.54 epbv=680) BASOPHILS ABSOLUTE COUNT (BEAKER) (test czvt=455) 0.00 K/ L 0.01-0.08 IMMATURE GRANULOCYTES-RELATIVE PERCENT (BEAKER) 1 % 0-1 (test hmcm=5859) LACTIC ACID, ARTERIAL, WHOLE [id number] 20:02:00 Test Item Value Reference Range Comments LACTATE BLOOD ARTERIAL (2) (BEAKER) (test 1.3 mmol/L 0.5-2.2 tmcj=0326) Effective 10/24/2015: Units/Reference Range ChangeNew: 0.5-2.2 mmol/L Previous: 5 -20 mg/[id number] 20:00:00 Test Item Value Reference Range Comments AMMONIA (BEAKER) (test ypzt=346) 60 mol/L 18-72 POCT-GLUCOSE [id number] 12:36:00 Test Item Value Reference Range Comments POC-GLUCOSE METER (BEAKER) 121 mg/dL 70-110 TESTED AT [address] (test mutw=3277) [facility] [address] POCT-GLUCOSE [id number] 12:00:00 Test Item Value Reference Range Comments POC-GLUCOSE METER (BEAKER) 118 mg/dL 70-110 TESTED AT [address] (test sjgl=2619) [facility] [address] CBC W/PLT COUNT & AUTO [id number] 11:55:00 Test Item Value Reference Range Comments WHITE BLOOD CELL COUNT (BEAKER) (test lnwy=244) 8.9 K/ L 4.0-10.0 RED BLOOD CELL COUNT (BEAKER) (test ubwl=699) 2.79 M/ L 4.20-5.80 HEMOGLOBIN (BEAKER) (test zxuk=441) 9.2 GM/DL 13.0-16.8 HEMATOCRIT (BEAKER) (test mzpu=476) 27.1 % 40.0-50.0 MEAN CORPUSCULAR VOLUME (BEAKER) (test hbhk=746) 97.1 fL 82.0-98.0 MEAN CORPUSCULAR HEMOGLOBIN (BEAKER) (test 33.1 pg 27.0-33.0 omhx=162) MEAN CORPUSCULAR HEMOGLOBIN CONC (BEAKER) (test 34.1 GM/DL 32.0-36.0 lamh=862) RED CELL DISTRIBUTION WIDTH (BEAKER) (test 15.5 % 10.3-14.2 umau=122) PLATELET COUNT (BEAKER) (test qbct=295) 29 K/CU MM 150-430 MEAN PLATELET VOLUME (BEAKER) (test qeug=350) 9.4 fL 6.5-10.5 NUCLEATED RED BLOOD CELLS (BEAKER) (test 0 /100 WBC 0-0 khpx=324) NEUTROPHILS RELATIVE PERCENT (BEAKER) (test 87 % wfdv=337) LYMPHOCYTES RELATIVE PERCENT (BEAKER) (test 5 % kgzi=627) MONOCYTES RELATIVE PERCENT (BEAKER) (test 8 % bvsn=478) EOSINOPHILS RELATIVE PERCENT (BEAKER) (test 1 % fojk=656) BASOPHILS RELATIVE PERCENT (BEAKER) (test 0 % cuff=330) NEUTROPHILS ABSOLUTE COUNT (BEAKER) (test 7.73 K/ L 1.80-8.00 ymvb=220) LYMPHOCYTES ABSOLUTE COUNT (BEAKER) (test 0.42 K/ L 1.48-4.50 yquv=744) MONOCYTES ABSOLUTE COUNT (BEAKER) (test fdaz=245) 0.73 K/ L 0.00-1.30 EOSINOPHILS ABSOLUTE COUNT (BEAKER) (test 0.05 K/ L 0.00-0.50 wras=083) BASOPHILS ABSOLUTE COUNT (BEAKER) (test izol=256) 0.00 K/ L 0.00-0.20 0.00POCT-GLUCOSE [id number] 07:54:00 Test Item Value Reference Range Comments POC-GLUCOSE METER (BEAKER) 94 mg/dL 70-110 TESTED AT [address] (test kvoj=9695) [facility] [address] POCT-GLUCOSE [id number] 22:14:00 Test Item Value Reference Range Comments POC-GLUCOSE METER (BEAKER) 221 mg/dL 70-110 TESTED AT [address] (test suxq=3189) [facility] [address] POCT-GLUCOSE [id number] 18:29:00 Test Item Value Reference Range Comments POC-GLUCOSE METER (BEAKER) 144 mg/dL 70-110 TESTED AT [address] (test bwnd=9950) [facility] [address] POCT-GLUCOSE [id number] 12:57:00 Test Item Value Reference Range Comments POC-GLUCOSE METER (BEAKER) 195 mg/dL 70-110 TESTED AT [place] [id number] [facility] (test pnkx=7066) [facility] [address] CBC W/PLT COUNT & AUTO [id number] 08:36:00 Test Item Value Reference Range Comments WHITE BLOOD CELL COUNT (BEAKER) (test kqtf=185) 11.1 K/ L 4.0-10.0 RED BLOOD CELL COUNT (BEAKER) (test qhdj=022) 2.68 M/ L 4.20-5.80 HEMOGLOBIN (BEAKER) (test vpsm=640) 9.0 GM/DL 13.0-16.8 HEMATOCRIT (BEAKER) (test thjo=103) 26.5 % 40.0-50.0 MEAN CORPUSCULAR VOLUME (BEAKER) (test sxhm=663) 98.7 fL 82.0-98.0 MEAN CORPUSCULAR HEMOGLOBIN (BEAKER) (test 33.5 pg 27.0-33.0 ixqi=735) MEAN CORPUSCULAR HEMOGLOBIN CONC (BEAKER) (test 34.0 GM/DL 32.0-36.0 pavj=876) RED CELL DISTRIBUTION WIDTH (BEAKER) (test 15.3 % 10.3-14.2 oxwt=166) PLATELET COUNT (BEAKER) (test jhve=622) 30 K/CU MM 150-430 MEAN PLATELET VOLUME (BEAKER) (test wsgo=163) 8.7 fL 6.5-10.5 NUCLEATED RED BLOOD CELLS (BEAKER) (test 0 /100 WBC 0-0 wfrg=623) NEUTROPHILS RELATIVE PERCENT (BEAKER) (test 85 % bixw=988) LYMPHOCYTES RELATIVE PERCENT (BEAKER) (test 5 % wusw=192) MONOCYTES RELATIVE PERCENT (BEAKER) (test 9 % lill=552) EOSINOPHILS RELATIVE PERCENT (BEAKER) (test 0 % pobd=024) BASOPHILS RELATIVE PERCENT (BEAKER) (test 0 % eayz=875) NEUTROPHILS ABSOLUTE COUNT (BEAKER) (test 9.48 K/ L 1.80-8.00 ipfn=519) LYMPHOCYTES ABSOLUTE COUNT (BEAKER) (test 0.56 K/ L 1.48-4.50 rejr=915) MONOCYTES ABSOLUTE COUNT (BEAKER) (test doam=970) 1.05 K/ L 0.00-1.30 EOSINOPHILS ABSOLUTE COUNT (BEAKER) (test 0.05 K/ L 0.00-0.50 ypra=226) BASOPHILS ABSOLUTE COUNT (BEAKER) (test cqju=572) 0.00 K/ L 0.00-0.20 0.00POCT-GLUCOSE [id number] 08:26:00 Test Item Value Reference Range Comments POC-GLUCOSE METER (BEAKER) 107 mg/dL 70-110 TESTED AT [facility] [address] [place] (test dfam=9105) [place] [address] PROTHROMBIN TIME/[id number] 05:20:00 Test Item Value Reference Range Comments PROTIME (BEAKER) (test jtew=415) 17.0 seconds 11.7-14.7 INR (BEAKER) (test qerx=355) 1.4 <=5.9 RECOMMENDED COUMADIN/WARFARIN INR THERAPY RANGESSTANDARD DOSE: 2.0 - 3.0 Includes: PROPHYLAXIS forvenous thrombosis, systemic embolization; TREATMENT for venous thrombosis and/or pulmonary embolus.HIGH RISK: Target INR is 2.5-3.5 for patients with mechanical heart valves.[id number] 05:20:00 Test Item Value Reference Range Comments PARTIAL THROMBOPLASTIN TIME (BEAKER) (test 27.8 seconds 22.5-36.0 mweh=635) [id number] 05:20:00 Test Item Value Reference Range Comments FIBRINOGEN LEVEL (BEAKER) (test fnkn=392) 183 mg/dl 225-434 B-TYPE NATRIURETIC FACTOR (BNP)2016-09-30 05:11:00 Test Item Value Reference Range Comments B-TYPE NATRIURETIC PEPTIDE (BEAKER) (test 256 pg/mL 0-100 ppwv=191) BASIC METABOLIC [id number] 05:09:00 Test Item Value Reference Range Comments SODIUM (BEAKER) (test 133 meq/L 136-145 agja=209) POTASSIUM (BEAKER) (test 3.5 meq/L 3.5-5.1 awgk=269) CHLORIDE (BEAKER) (test 93 meq/L 98-107 hrhj=941) CO2 (BEAKER) (test 30 meq/L 22-29 qsxs=924) BLOOD UREA NITROGEN 40 mg/dL 7-21 (BEAKER) (test oiet=484) CREATININE (BEAKER) (test 0.85 mg/dL 0.57-1.25 ouuu=501) GLUCOSE RANDOM (BEAKER) 143 mg/dL 70-105 (test ijec=689) CALCIUM (BEAKER) (test 8.5 mg/dL 8.4-10.2 llef=411) EGFR (BEAKER) (test mL/min/1.73 sq m INSUFFICIENT CLINICAL DATA olqo=1312) TO CALCULATE ESTIMATED GFR. POCT-GLUCOSE [id number] 21:25:00 Test Item Value Reference Range Comments POC-GLUCOSE METER (BEAKER) 139 mg/dL 70-110 TESTED AT [address] (test ohvk=6166) [place] [id number] POCT-GLUCOSE [id number] 17:50:00 Test Item Value Reference Range Comments POC-GLUCOSE METER (BEAKER) 173 mg/dL 70-110 TESTED AT [address] (test trxd=3379) [place] [id number] POCT-GLUCOSE [id number] 08:56:00 Test Item Value Reference Range Comments POC-GLUCOSE METER (BEAKER) 155 mg/dL 70-110 TESTED AT [address] (test vqyp=4084) [facility] [address] CBC W/PLT COUNT & AUTO [id number] 04:54:00 Test Item Value Reference Range Comments WHITE BLOOD CELL COUNT (BEAKER) (test knzl=438) 8.7 K/ L 4.0-10.0 RED BLOOD CELL COUNT (BEAKER) (test xywd=367) 2.72 M/ L 4.20-5.80 HEMOGLOBIN (BEAKER) (test zlkv=934) 9.4 GM/DL 13.0-16.8 HEMATOCRIT (BEAKER) (test jdjs=603) 27.0 % 40.0-50.0 MEAN CORPUSCULAR VOLUME (BEAKER) (test gxpx=379) 99.4 fL 82.0-98.0 MEAN CORPUSCULAR HEMOGLOBIN (BEAKER) (test 34.6 pg 27.0-33.0 aozy=906) MEAN CORPUSCULAR HEMOGLOBIN CONC (BEAKER) (test 34.8 GM/DL 32.0-36.0 qwaw=486) RED CELL DISTRIBUTION WIDTH (BEAKER) (test 15.3 % 10.3-14.2 srep=724) PLATELET COUNT (BEAKER) (test wcxs=157) 24 K/CU MM 150-430 MEAN PLATELET VOLUME (BEAKER) (test nzvv=678) 9.9 fL 6.5-10.5 NUCLEATED RED BLOOD CELLS (BEAKER) (test 0 /100 WBC 0-0 cska=128) NEUTROPHILS RELATIVE PERCENT (BEAKER) (test 89 % brmj=354) LYMPHOCYTES RELATIVE PERCENT (BEAKER) (test 4 % opdq=470) MONOCYTES RELATIVE PERCENT (BEAKER) (test 8 % fluf=842) EOSINOPHILS RELATIVE PERCENT (BEAKER) (test 0 % ikuv=378) BASOPHILS RELATIVE PERCENT (BEAKER) (test 0 % pzdd=317) NEUTROPHILS ABSOLUTE COUNT (BEAKER) (test 7.72 K/ L 1.80-8.00 vvbt=578) LYMPHOCYTES ABSOLUTE COUNT (BEAKER) (test 0.31 K/ L 1.48-4.50 bgkr=816) MONOCYTES ABSOLUTE COUNT (BEAKER) (test dvnw=781) 0.68 K/ L 0.00-1.30 EOSINOPHILS ABSOLUTE COUNT (BEAKER) (test 0.02 K/ L 0.00-0.50 ozkz=594) BASOPHILS ABSOLUTE COUNT (BEAKER) (test rnkh=113) 0.00 K/ L 0.00-0.20 0.00POCT-GLUCOSE [id number] 22:11:00 Test Item Value Reference Range Comments POC-GLUCOSE METER (BEAKER) 295 mg/dL 70-110 TESTED AT [address] (test fmxq=8872) [facility] [address] POCT-GLUCOSE [id number] 16:50:00 Test Item Value Reference Range Comments POC-GLUCOSE METER (BEAKER) 149 mg/dL 70-110 TESTED AT [address] (test ulqx=9604) [facility] [address] [id number] 15:04:00 Test Item Value Reference Range Comments POTASSIUM (BEAKER) (test zdrx=797) 4.0 meq/L 3.5-5.1 [id number] 15:04:00 Test Item Value Reference Range Comments MAGNESIUM (BEAKER) (test ltzf=712) 2.7 mg/dL 1.6-2.6 POCT-GLUCOSE [id number] 12:34:00 Test Item Value Reference Range Comments POC-GLUCOSE METER (BEAKER) 128 mg/dL 70-110 TESTED AT [place] [id number] [facility] [place] (test bzfp=3657) [facility] [address] POCT-GLUCOSE [id number] 11:39:00 Test Item Value Reference Range Comments POC-GLUCOSE METER (BEAKER) 120 mg/dL 70-110 TESTED AT [address] (test lgly=8884) [facility] [address] POCT-GLUCOSE [id number] 07:51:00 Test Item Value Reference Range Comments POC-GLUCOSE METER (BEAKER) 87 mg/dL 70-110 TESTED AT [address] (test fcto=0236) [facility] [id number] BLOOD GAS, [id number] 05:59:00 Test Item Value Reference Range Comments PH ARTERIAL (BEAKER) (test ulhz=201) 7.41 7.35-7.45 PCO2 ARTERIAL (BEAKER) (test cskp=647) 60 mmHg 35-45 PO2 ARTERIAL (BEAKER) (test qlpf=593) 179 mmHg 80-90 O2 SATURATION ARTERIAL (BEAKER) (test grfw=871) 99.2 % 96.0-97.0 HCO3 ARTERIAL (BEAKER) (test siqx=327) 38 mmol/L 21-29 BASE EXCESS ARTERIAL (BEAKER) (test jeou=592) 11.6 mmol/L -2.0-3.0 PATIENT TEMPERATURE (BEAKER) (test wkue=6383) 36.5 C FIO2 (BEAKER) (test hboy=1412) 50.0 % CBC W/PLT COUNT & AUTO [id number] 05:40:00 Test Item Value Reference Range Comments WHITE BLOOD CELL COUNT (BEAKER) (test botc=529) 9.1 K/ L 4.0-10.0 RED BLOOD CELL COUNT (BEAKER) (test agoq=863) 2.62 M/ L 4.20-5.80 HEMOGLOBIN (BEAKER) (test spoo=450) 8.7 GM/DL 13.0-16.8 HEMATOCRIT (BEAKER) (test dlyd=905) 25.9 % 40.0-50.0 MEAN CORPUSCULAR VOLUME (BEAKER) (test yddo=671) 98.8 fL 82.0-98.0 MEAN CORPUSCULAR HEMOGLOBIN (BEAKER) (test 33.0 pg 27.0-33.0 fcfi=469) MEAN CORPUSCULAR HEMOGLOBIN CONC (BEAKER) (test 33.4 GM/DL 32.0-36.0 kfie=435) RED CELL DISTRIBUTION WIDTH (BEAKER) (test 15.9 % 10.3-14.2 ayru=232) PLATELET COUNT (BEAKER) (test sutm=636) 30 K/CU MM 150-430 MEAN PLATELET VOLUME (BEAKER) (test ypgz=268) 9.4 fL 6.5-10.5 NUCLEATED RED BLOOD CELLS (BEAKER) (test 0 /100 WBC 0-0 ciod=896) NEUTROPHILS RELATIVE PERCENT (BEAKER) (test 87 % dxcp=861) LYMPHOCYTES RELATIVE PERCENT (BEAKER) (test 4 % luqp=134) MONOCYTES RELATIVE PERCENT (BEAKER) (test 9 % auci=570) EOSINOPHILS RELATIVE PERCENT (BEAKER) (test 0 % jmhb=707) BASOPHILS RELATIVE PERCENT (BEAKER) (test 0 % tefo=502) NEUTROPHILS ABSOLUTE COUNT (BEAKER) (test 7.93 K/ L 1.80-8.00 bjdk=799) LYMPHOCYTES ABSOLUTE COUNT (BEAKER) (test 0.32 K/ L 1.48-4.50 sriv=210) MONOCYTES ABSOLUTE COUNT (BEAKER) (test msht=189) 0.81 K/ L 0.00-1.30 EOSINOPHILS ABSOLUTE COUNT (BEAKER) (test 0.01 K/ L 0.00-0.50 ggzx=667) BASOPHILS ABSOLUTE COUNT (BEAKER) (test nhav=602) 0.01 K/ L 0.00-0.20 0.00BASI METABOLIC [id number] 04:53:00 Test Item Value Reference Range Comments SODIUM (BEAKER) (test 135 meq/L 136-145 ytcy=498) POTASSIUM (BEAKER) (test 4.2 meq/L 3.5-5.1 ascz=997) CHLORIDE (BEAKER) (test 92 meq/L 98-107 mzur=764) CO2 (BEAKER) (test 36 meq/L 22-29 urzq=742) BLOOD UREA NITROGEN 48 mg/dL 7-21 (BEAKER) (test xqxi=390) CREATININE (BEAKER) (test 0.89 mg/dL 0.57-1.25 snsa=593) GLUCOSE RANDOM (BEAKER) 105 mg/dL 70-105 (test vlty=688) CALCIUM (BEAKER) (test 8.4 mg/dL 8.4-10.2 ybxw=476) EGFR (BEAKER) (test mL/min/1.73 sq m INSUFFICIENT CLINICAL DATA zpdv=1806) TO CALCULATE ESTIMATED GFR. Check Serum Magnesium level 2 hours after IV magnesium replacement.[id number] 04:43:00 Test Item Value Reference Range Comments POTASSIUM (BEAKER) (test xijx=078) 4.2 meq/L 3.5-5.1 Check Serum Magnesium level 2 hours after IV magnesium replacement.[id number] -[id number] 04:43:00 Test Item Value Reference Range Comments MAGNESIUM (BEAKER) (test jsor=758) 2.5 mg/dL 1.6-2.6 Check Serum Magnesium level 2 hours after IV magnesium replacement.HEPATIC FUNCTION [id number] 04:43:00 Test Item Value Reference Range Comments TOTAL PROTEIN (BEAKER) (test yfjw=340) 6.4 gm/dL 6.0-8.3 ALBUMIN (BEAKER) (test yfpp=4365) 3.4 g/dL 3.5-5.0 BILIRUBIN TOTAL (BEAKER) (test fuhj=465) 1.6 mg/dL 0.2-1.2 BILIRUBIN DIRECT (BEAKER) (test erao=055) 0.9 mg/dL 0.1-0.5 ALKALINE PHOSPHATASE (BEAKER) (test tbza=109) 100 U/L 40-150 AST (SGOT) (BEAKER) (test wrpu=512) 27 U/L 5-34 ALT (SGPT) (BEAKER) (test omqm=195) 27 U/L 6-55 Check Serum Magnesium level 2 hours after IV magnesium replacement.PROTHROMBIN [id number] 04:33:00 Test Item Value Reference Range Comments PROTIME (BEAKER) (test hmqb=418) 16.6 seconds 11.7-14.7 INR (BEAKER) (test xben=813) 1.4 <=5.9 RECOMMENDED COUMADIN/WARFARIN INR THERAPY RANGESSTANDARD DOSE: 2.0 - 3.0 Includes: PROPHYLAXIS forvenous thrombosis, systemic embolization; TREATMENT for venous thrombosis and/or pulmonary embolus.HIGH RISK: Target INR is 2.5-3.5 for patients with mechanical heart valves.[id number] 01:32:00 Test Item Value Reference Range Comments POTASSIUM (BEAKER) (test qkom=488) 4.0 meq/L 3.5-5.1 Check Serum Magnesium level 2 hours after IV magnesium replacement.[id number] -04-09 01:32:00 Test Item Value Reference Range Comments MAGNESIUM (BEAKER) (test mdpi=155) 2.6 mg/dL 1.6-2.6 Check Serum Magnesium level 2 hours after IV magnesium replacement.POCT-GLUCOSE [id number] 01:04:00 Test Item Value Reference Range Comments POC-GLUCOSE METER (BEAKER) 142 mg/dL 70-110 TESTED AT [address] (test fymy=5620) [place] [id number] 18:48:00 Test Item Value Reference Range Comments POTASSIUM (BEAKER) (test vcql=379) 4.5 meq/L 3.5-5.1 Check Serum Magnesium level 2 hours after IV magnesium replacement.[id number] 18:48:00 Test Item Value Reference Range Comments MAGNESIUM (BEAKER) (test ombo=794) 2.5 mg/dL 1.6-2.6 Check Serum Magnesium level 2 hours after IV magnesium replacement.CALCIUM, [id number] 18:33:00 Test Item Value Reference Range Comments CALCIUM IONIZED (BEAKER) (test efnm=437) 1.13 mmol/L 1.12-1.27 PH, BLOOD (BEAKER) (test rnvx=0661) 7.39 Check serum Ionized Calcium level after 4 hours after IV Calcium replacement.POCT-GLUCOSE [id number] 17:19:00 Test Item Value Reference Range Comments POC-GLUCOSE METER (BEAKER) 169 mg/dL 70-110 TESTED AT [address] (test jjgi=3606) [place] [address] [id number] 13:12:00 Test Item Value Reference Range Comments POTASSIUM (BEAKER) (test vjpe=587) 3.6 meq/L 3.5-5.1 Check Serum Magnesium level 2 hours after IV magnesium replacement.[id number] -[id number] 13:12:00 Test Item Value Reference Range Comments MAGNESIUM (BEAKER) (test guml=502) 2.1 mg/dL 1.6-2.6 Check Serum Magnesium level 2 hours after IV magnesium replacement.POCT-GLUCOSE [id number] 12:25:00 Test Item Value Reference Range Comments POC-GLUCOSE METER (BEAKER) 149 mg/dL 70-110 TESTED AT [address] (test wkjp=9393) [facility] [address] CALCIUM, [id number] 12:12:00 Test Item Value Reference Range Comments CALCIUM IONIZED (BEAKER) (test eowq=833) 1.07 mmol/L 1.12-1.27 PH, BLOOD (BEAKER) (test yjzq=8678) 7.40 Check serum Ionized Calcium level after 4 hours after IV Calcium replacement.POCT-GLUCOSE [id number] 07:51:00 Test Item Value Reference Range Comments POC-GLUCOSE METER (BEAKER) 92 mg/dL 70-110 TESTED AT [address] (test xcjf=4995) [facility] [address] BLOOD GAS, [id number] 05:03:00 Test Item Value Reference Range Comments PH ARTERIAL (BEAKER) (test lwbx=706) 7.47 7.35-7.45 PCO2 ARTERIAL (BEAKER) (test oofq=028) 58 mmHg 35-45 PO2 ARTERIAL (BEAKER) (test kgej=654) 186 mmHg 80-90 O2 SATURATION ARTERIAL (BEAKER) (test iktb=964) 99.3 % 96.0-97.0 HCO3 ARTERIAL (BEAKER) (test ctds=855) 41 mmol/L 21-29 BASE EXCESS ARTERIAL (BEAKER) (test lvoe=597) 15.6 mmol/L -2.0-3.0 PATIENT TEMPERATURE (BEAKER) (test sxmg=5453) 37.0 C FIO2 (BEAKER) (test kugy=5066) 50.0 % CBC W/PLT COUNT & AUTO [id number] 04:18:00 Test Item Value Reference Range Comments WHITE BLOOD CELL COUNT (BEAKER) (test cghc=842) 11.8 K/ L 4.0-10.0 RED BLOOD CELL COUNT (BEAKER) (test pnxp=625) 2.65 M/ L 4.20-5.80 HEMOGLOBIN (BEAKER) (test xyrz=058) 8.7 GM/DL 13.0-16.8 HEMATOCRIT (BEAKER) (test rvez=104) 26.2 % 40.0-50.0 MEAN CORPUSCULAR VOLUME (BEAKER) (test rxyx=263) 98.7 fL 82.0-98.0 MEAN CORPUSCULAR HEMOGLOBIN (BEAKER) (test 32.8 pg 27.0-33.0 nnek=305) MEAN CORPUSCULAR HEMOGLOBIN CONC (BEAKER) (test 33.2 GM/DL 32.0-36.0 nwld=087) RED CELL DISTRIBUTION WIDTH (BEAKER) (test 15.7 % 10.3-14.2 iwbq=507) PLATELET COUNT (BEAKER) (test tuko=163) 42 K/CU MM 150-430 MEAN PLATELET VOLUME (BEAKER) (test ppjn=049) 8.2 fL 6.5-10.5 NUCLEATED RED BLOOD CELLS (BEAKER) (test 0 /100 WBC 0-0 lhfw=106) NEUTROPHILS RELATIVE PERCENT (BEAKER) (test 90 % emmu=340) LYMPHOCYTES RELATIVE PERCENT (BEAKER) (test 3 % ibvl=139) MONOCYTES RELATIVE PERCENT (BEAKER) (test 8 % ycbn=068) EOSINOPHILS RELATIVE PERCENT (BEAKER) (test 0 % eqhl=896) BASOPHILS RELATIVE PERCENT (BEAKER) (test 0 % bwkn=896) NEUTROPHILS ABSOLUTE COUNT (BEAKER) (test 10.60 K/ L 1.80-8.00 bpul=326) LYMPHOCYTES ABSOLUTE COUNT (BEAKER) (test 0.32 K/ L 1.48-4.50 uoqx=923) MONOCYTES ABSOLUTE COUNT (BEAKER) (test oooc=573) 0.91 K/ L 0.00-1.30 EOSINOPHILS ABSOLUTE COUNT (BEAKER) (test 0.01 K/ L 0.00-0.50 clri=357) BASOPHILS ABSOLUTE COUNT (BEAKER) (test yrtz=344) 0.00 K/ L 0.00-0.20 0.00BASI METABOLIC [id number] 04:12:00 Test Item Value Reference Range Comments SODIUM (BEAKER) (test 139 meq/L 136-145 mfgg=657) POTASSIUM (BEAKER) (test 3.9 meq/L 3.5-5.1 qplt=585) CHLORIDE (BEAKER) (test 92 meq/L 98-107 afei=283) CO2 (BEAKER) (test 39 meq/L 22-29 ebua=491) BLOOD UREA NITROGEN 44 mg/dL 7-21 (BEAKER) (test pwlz=455) CREATININE (BEAKER) (test 0.95 mg/dL 0.57-1.25 kodd=622) GLUCOSE RANDOM (BEAKER) 104 mg/dL 70-105 (test nvks=884) CALCIUM (BEAKER) (test 8.7 mg/dL 8.4-10.2 lwyb=253) EGFR (BEAKER) (test mL/min/1.73 sq m INSUFFICIENT CLINICAL DATA eyfh=9657) TO CALCULATE ESTIMATED GFR. [id number] 04:04:00 Test Item Value Reference Range Comments POTASSIUM (BEAKER) (test bicx=767) 3.9 meq/L 3.5-5.1 [id number] 04:04:00 Test Item Value Reference Range Comments MAGNESIUM (BEAKER) (test sadm=458) 2.4 mg/dL 1.6-2.6 HEPATIC FUNCTION [id number] 04:04:00 Test Item Value Reference Range Comments TOTAL PROTEIN (BEAKER) (test prcy=852) 6.6 gm/dL 6.0-8.3 ALBUMIN (BEAKER) (test hllu=2439) 3.5 g/dL 3.5-5.0 BILIRUBIN TOTAL (BEAKER) (test ctok=504) 1.7 mg/dL 0.2-1.2 BILIRUBIN DIRECT (BEAKER) (test bsaj=063) 0.9 mg/dL 0.1-0.5 ALKALINE PHOSPHATASE (BEAKER) (test mqlh=725) 98 U/L 40-150 AST (SGOT) (BEAKER) (test njwv=837) 33 U/L 5-34 ALT (SGPT) (BEAKER) (test oylt=338) 26 U/L 6-55 PROTHROMBIN [id number] 03:49:00 Test Item Value Reference Range Comments PROTIME (BEAKER) (test ewbc=044) 16.3 seconds 11.7-14.7 INR (BEAKER) (test mnwf=191) 1.3 <=5.9 RECOMMENDED COUMADIN/WARFARIN INR THERAPY RANGESSTANDARD DOSE: 2.0 - 3.0 Includes: PROPHYLAXIS forvenous thrombosis, systemic embolization; TREATMENT for venous thrombosis and/or pulmonary embolus.HIGH RISK: Target INR is 2.5-3.5 for patients with mechanical heart valves.BASIC METABOLIC [id number] 00:47: 00 Test Item Value Reference Range Comments SODIUM (BEAKER) (test 137 meq/L 136-145 arvk=858) POTASSIUM (BEAKER) (test 4.0 meq/L 3.5-5.1 mjaj=195) CHLORIDE (BEAKER) (test 93 meq/L 98-107 ffxr=302) CO2 (BEAKER) (test 36 meq/L 22-29 qwpl=626) BLOOD UREA NITROGEN 45 mg/dL 7-21 (BEAKER) (test yrht=564) CREATININE (BEAKER) (test 1.03 mg/dL 0.57-1.25 jueb=829) GLUCOSE RANDOM (BEAKER) 146 mg/dL 70-105 (test cdju=937) CALCIUM (BEAKER) (test 7.9 mg/dL 8.4-10.2 wptb=175) EGFR (BEAKER) (test mL/min/1.73 sq m INSUFFICIENT CLINICAL DATA galb=1683) TO CALCULATE ESTIMATED GFR. Check Serum Magnesium level 2 hours after IV magnesium replacement.CBC W/PLT COUNT & AUTO [id number] 00:10:00 Test Item Value Reference Range Comments WHITE BLOOD CELL COUNT (BEAKER) (test npxq=963) 11.3 K/ L 4.0-10.0 RED BLOOD CELL COUNT (BEAKER) (test swol=023) 2.58 M/ L 4.20-5.80 HEMOGLOBIN (BEAKER) (test gumv=592) 8.5 GM/DL 13.0-16.8 HEMATOCRIT (BEAKER) (test wnxl=738) 25.5 % 40.0-50.0 MEAN CORPUSCULAR VOLUME (BEAKER) (test qcer=637) 99.0 fL 82.0-98.0 MEAN CORPUSCULAR HEMOGLOBIN (BEAKER) (test 32.9 pg 27.0-33.0 plak=826) MEAN CORPUSCULAR HEMOGLOBIN CONC (BEAKER) (test 33.3 GM/DL 32.0-36.0 hjjk=093) RED CELL DISTRIBUTION WIDTH (BEAKER) (test 15.6 % 10.3-14.2 llcd=171) PLATELET COUNT (BEAKER) (test vsag=169) 40 K/CU MM 150-430 MEAN PLATELET VOLUME (BEAKER) (test hzpy=420) 8.4 fL 6.5-10.5 NUCLEATED RED BLOOD CELLS (BEAKER) (test 0 /100 WBC 0-0 bupx=623) NEUTROPHILS RELATIVE PERCENT (BEAKER) (test 90 % bati=987) LYMPHOCYTES RELATIVE PERCENT (BEAKER) (test 2 % qqxi=765) MONOCYTES RELATIVE PERCENT (BEAKER) (test 7 % negq=593) EOSINOPHILS RELATIVE PERCENT (BEAKER) (test 0 % oumu=351) BASOPHILS RELATIVE PERCENT (BEAKER) (test 1 % tlrk=941) NEUTROPHILS ABSOLUTE COUNT (BEAKER) (test 10.20 K/ L 1.80-8.00 zckt=631) LYMPHOCYTES ABSOLUTE COUNT (BEAKER) (test 0.19 K/ L 1.48-4.50 kdna=270) MONOCYTES ABSOLUTE COUNT (BEAKER) (test jzps=408) 0.83 K/ L 0.00-1.30 EOSINOPHILS ABSOLUTE COUNT (BEAKER) (test 0.01 K/ L 0.00-0.50 xbib=730) BASOPHILS ABSOLUTE COUNT (BEAKER) (test qufg=651) 0.07 K/ L 0.00-0.20 0.00CALCIUM, [id number] 00:07:00 Test Item Value Reference Range Comments CALCIUM IONIZED (BEAKER) (test rnci=608) 1.06 mmol/L 1.12-1.27 PH, BLOOD (BEAKER) (test jktb=7444) 7.38 [id number] 23:53:00 Test Item Value Reference Range Comments POTASSIUM (BEAKER) (test scam=575) 4.1 meq/L 3.5-5.1 Check Serum Magnesium level 2 hours after IV magnesium replacement.[id number] 23:53:00 Test Item Value Reference Range Comments MAGNESIUM (BEAKER) (test gmyb=548) 2.0 mg/dL 1.6-2.6 Check Serum Magnesium level 2 hours after IV magnesium replacement.POCT-GLUCOSE [id number] 22:39:00 Test Item Value Reference Range Comments POC-GLUCOSE METER (BEAKER) 209 mg/dL 70-110 TESTED AT [address] (test isxa=6715) [facility] [address] POCT-GLUCOSE [id number] 20:00:00 Test Item Value Reference Range Comments POC-GLUCOSE METER (BEAKER) 168 mg/dL 70-110 TESTED AT [facility] [address] (test wkxh=9759) [facility] [address] [id number] 18:48:00 Test Item Value Reference Range Comments POTASSIUM (BEAKER) (test khgn=168) 3.9 meq/L 3.5-5.1 Check Serum Magnesium level 2 hours after IV magnesium replacement.[id number] -04-07 18:48:00 Test Item Value Reference Range Comments MAGNESIUM (BEAKER) (test vczj=284) 2.2 mg/dL 1.6-2.6 Check Serum Magnesium level 2 hours after IV magnesium replacement.[id number] -04-07 12:21:00 Test Item Value Reference Range Comments POTASSIUM (BEAKER) (test kxpk=989) 3.5 meq/L 3.5-5.1 Check Serum Magnesium level 2 hours after IV magnesium replacement.[id number] -04-07 12:21:00 Test Item Value Reference Range Comments MAGNESIUM (BEAKER) (test imcz=831) 2.2 mg/dL 1.6-2.6 Check Serum Magnesium level 2 hours after IV magnesium replacement.LACTATE DEHYDROGENASE (LDH)[id number] 12:08:00 Test Item Value Reference Range Comments LACTATE DEHYDROGENASE (BEAKER) (test vrai=385) 291 U/L 125-220 [id number] 12:06:00 Test Item Value Reference Range Comments D-DIMER QUANTITATIVE (BEAKER) (test gaio=156) 9.38 MG/L FEU <0.50 Intended Use: The D-Dimer Assay can be used to aid in the diagnosis of Deep Vein Thrombosis (DVT) and Pulmonary Embolism Disease (PED).In patients with low pre-test probability, various studies concerning STA Liatest D-dimer test have reported that with a cutoff value of 0.50 MG/L FEU, the Negative Predictive Value (NPV) regarding the exclusion of thrombosis is within 95-100% range.[id number] 11:51:00 Test Item Value Reference Range Comments FIBRINOGEN LEVEL (BEAKER) (test teol=124) 247 mg/dl 225-434 BLOOD GAS, [id number] 11:39:00 Test Item Value Reference Range Comments PH ARTERIAL (BEAKER) (test yakg=332) 7.44 7.35-7.45 PCO2 ARTERIAL (BEAKER) (test livz=048) 55 mmHg 35-45 PO2 ARTERIAL (BEAKER) (test oxpj=192) 101 mmHg 80-90 O2 SATURATION ARTERIAL (BEAKER) (test vord=373) 97.8 % 96.0-97.0 HCO3 ARTERIAL (BEAKER) (test xmym=787) 37 mmol/L 21-29 BASE EXCESS ARTERIAL (BEAKER) (test vlvh=546) 11.2 mmol/L -2.0-3.0 PATIENT TEMPERATURE (BEAKER) (test jbmm=8939) 36.5 C FIO2 (BEAKER) (test fjox=9942) 36.0 % HEMOGLOBIN [id number] 08:13:00 Test Item Value Reference Range Comments HEMOGLOBIN A1C (BEAKER) (test qwzj=198) 5.5 % 4.3-6.1 BLOOD GAS, [id number] 07:04:00 Test Item Value Reference Range Comments PH ARTERIAL (BEAKER) (test uzvw=444) 7.38 7.35-7.45 PCO2 ARTERIAL (BEAKER) (test jizb=152) 60 mmHg 35-45 PO2 ARTERIAL (BEAKER) (test goir=714) 293 mmHg 80-90 O2 SATURATION ARTERIAL (BEAKER) (test laeg=204) 99.6 % 96.0-97.0 HCO3 ARTERIAL (BEAKER) (test swxe=230) 35 mmol/L 21-29 BASE EXCESS ARTERIAL (BEAKER) (test qvob=857) 7.9 mmol/L -2.0-3.0 PATIENT TEMPERATURE (BEAKER) (test qgfm=3181) 36.5 C FIO2 (BEAKER) (test sosj=8749) 60.0 % OXYGEN SATURATION, [id number] 06:13:00 Test Item Value Reference Range Comments O2 SATURATION (MEASURED) (BEAKER) (test kmov=9562) 89.5 % [id number] 05:30:00 Test Item Value Reference Range Comments MAGNESIUM (BEAKER) (test kjfr=709) 2.1 mg/dL 1.6-2.6 HEPATIC FUNCTION [id number] 05:30:00 Test Item Value Reference Range Comments TOTAL PROTEIN (BEAKER) (test qedt=929) 6.4 gm/dL 6.0-8.3 ALBUMIN (BEAKER) (test pywl=1091) 3.5 g/dL 3.5-5.0 BILIRUBIN TOTAL (BEAKER) (test sbbo=908) 1.6 mg/dL 0.2-1.2 BILIRUBIN DIRECT (BEAKER) (test qwbs=152) 0.9 mg/dL 0.1-0.5 ALKALINE PHOSPHATASE (BEAKER) (test ypih=688) 86 U/L 40-150 AST (SGOT) (BEAKER) (test jsrt=216) 38 U/L 5-34 ALT (SGPT) (BEAKER) (test ybwj=906) 29 U/L 6-55 BASIC METABOLIC [id number] 05:30:00 Test Item Value Reference Range Comments SODIUM (BEAKER) (test 138 meq/L 136-145 btkm=720) POTASSIUM (BEAKER) (test 4.1 meq/L 3.5-5.1 jrmk=174) CHLORIDE (BEAKER) (test 98 meq/L 98-107 ircd=887) CO2 (BEAKER) (test 31 meq/L 22-29 wewg=686) BLOOD UREA NITROGEN 46 mg/dL 7-21 (BEAKER) (test erox=874) CREATININE (BEAKER) (test 1.06 mg/dL 0.57-1.25 lsub=384) GLUCOSE RANDOM (BEAKER) 128 mg/dL 70-105 (test nbbd=123) CALCIUM (BEAKER) (test 8.1 mg/dL 8.4-10.2 uada=354) EGFR (BEAKER) (test mL/min/1.73 sq m INSUFFICIENT CLINICAL DATA ixgz=3730) TO CALCULATE ESTIMATED GFR. CBC W/PLT COUNT & AUTO [id number] 05:18:00 Test Item Value Reference Range Comments WHITE BLOOD CELL COUNT (BEAKER) (test qyhr=409) 13.3 K/ L 4.0-10.0 RED BLOOD CELL COUNT (BEAKER) (test jcjw=647) 2.68 M/ L 4.20-5.80 HEMOGLOBIN (BEAKER) (test ikkv=631) 8.6 GM/DL 13.0-16.8 HEMATOCRIT (BEAKER) (test kira=668) 26.3 % 40.0-50.0 MEAN CORPUSCULAR VOLUME (BEAKER) (test xscs=129) 98.1 fL 82.0-98.0 MEAN CORPUSCULAR HEMOGLOBIN (BEAKER) (test 32.2 pg 27.0-33.0 udfe=745) MEAN CORPUSCULAR HEMOGLOBIN CONC (BEAKER) (test 32.8 GM/DL 32.0-36.0 vpuh=886) RED CELL DISTRIBUTION WIDTH (BEAKER) (test 15.5 % 10.3-14.2 svey=544) PLATELET COUNT (BEAKER) (test svzb=297) 40 K/CU MM 150-430 MEAN PLATELET VOLUME (BEAKER) (test fhkc=848) 8.7 fL 6.5-10.5 NUCLEATED RED BLOOD CELLS (BEAKER) (test 0 /100 WBC 0-0 hrlk=153) NEUTROPHILS RELATIVE PERCENT (BEAKER) (test 91 % qous=188) LYMPHOCYTES RELATIVE PERCENT (BEAKER) (test 2 % umws=259) MONOCYTES RELATIVE PERCENT (BEAKER) (test 7 % kedv=547) EOSINOPHILS RELATIVE PERCENT (BEAKER) (test 0 % huvo=643) BASOPHILS RELATIVE PERCENT (BEAKER) (test 0 % wxap=325) NEUTROPHILS ABSOLUTE COUNT (BEAKER) (test 12.10 K/ L 1.80-8.00 huvt=057) LYMPHOCYTES ABSOLUTE COUNT (BEAKER) (test 0.31 K/ L 1.48-4.50 yfhj=069) MONOCYTES ABSOLUTE COUNT (BEAKER) (test zjaa=579) 0.87 K/ L 0.00-1.30 EOSINOPHILS ABSOLUTE COUNT (BEAKER) (test 0.01 K/ L 0.00-0.50 xgpg=733) BASOPHILS ABSOLUTE COUNT (BEAKER) (test vgil=053) 0.00 K/ L 0.00-0.20 0.00PROTHROMBIN [id number] 05:07:00 Test Item Value Reference Range Comments PROTIME (BEAKER) (test tdxn=574) 16.7 seconds 11.7-14.7 INR (BEAKER) (test vbpq=014) 1.4 <=5.9 RECOMMENDED COUMADIN/WARFARIN INR THERAPY RANGESSTANDARD DOSE: 2.0 - 3.0 Includes: PROPHYLAXIS forvenous thrombosis, systemic embolization; TREATMENT for venous thrombosis and/or pulmonary embolus.HIGH RISK: Target INR is 2.5-3.5 for patients with mechanical heart valves.BLOOD GAS, [id number] 23:30:00 Test Item Value Reference Range Comments PH ARTERIAL (BEAKER) (test nwzu=111) 7.33 7.35-7.45 PCO2 ARTERIAL (BEAKER) (test smyo=446) 60 mmHg 35-45 PO2 ARTERIAL (BEAKER) (test vfoc=870) 169 mmHg 80-90 O2 SATURATION ARTERIAL (BEAKER) (test fbxi=563) 99.0 % 96.0-97.0 HCO3 ARTERIAL (BEAKER) (test wanm=746) 31 mmol/L 21-29 BASE EXCESS ARTERIAL (BEAKER) (test nusp=087) 4.2 mmol/L -2.0-3.0 PATIENT TEMPERATURE (BEAKER) (test uibz=0727) 36.5 C FIO2 (BEAKER) (test tfhl=3842) 36.0 % POTASSIUM-STAT [id number] 23:07:00 Test Item Value Reference Range Comments POTASSIUM (BEAKER) (test yiee=187) 4.3 meq/L 3.6-5.5 SODIUM NA-STAT [id number] 23:07:00 Test Item Value Reference Range Comments SODIUM (BEAKER) (test oatk=541) 134 meq/L 135-148 HGB/HCT (H&H) - STAT [id number] 23:07:00 Test Item Value Reference Range Comments HEMOGLOBIN (BEAKER) (test xwap=369) 9.5 g/dL 13.0-16.8 HEMATOCRIT (BEAKER) (test hxoc=168) 28.0 % 40.0-50.0 CALCIUM, [id number] 23:06:00 Test Item Value Reference Range Comments CALCIUM IONIZED (BEAKER) (test pdvo=306) 1.15 mmol/L 1.12-1.27 PH, BLOOD (BEAKER) (test cnqn=5869) 7.28 POCT-GLUCOSE [id number] 21:58:00 Test Item Value Reference Range Comments POC-GLUCOSE METER (BEAKER) 202 mg/dL 70-110 TESTED AT [facility] [address] [place] (test vxes=9750) [facility] [address] POCT-GLUCOSE [id number] 16:44:00 Test Item Value Reference Range Comments POC-GLUCOSE METER (BEAKER) 220 mg/dL 70-110 TESTED AT [address] (test llfw=7251) [facility] [address] PERIPHERAL BLOOD SMEAR - HOLD [id number] 16:10:00 Test Item Value Reference Range Comments PERIPHERAL SMEAR SAVE (BEAKER) (test evvn=9560) saved POCT-GLUCOSE [id number] 11:01:00 Test Item Value Reference Range Comments POC-GLUCOSE METER (BEAKER) 152 mg/dL 70-110 TESTED AT [address] (test nxvr=5213) [facility] [address] POCT-GLUCOSE [id number] 07:16:00 Test Item Value Reference Range Comments POC-GLUCOSE METER (BEAKER) 125 mg/dL 70-110 TESTED AT [address] (test rsfy=2156) [facility] [address] BASIC METABOLIC [id number] 03:47:00 Test Item Value Reference Range Comments SODIUM (BEAKER) (test 136 meq/L 136-145 crvx=162) POTASSIUM (BEAKER) (test 4.0 meq/L 3.5-5.1 goai=013) CHLORIDE (BEAKER) (test 101 meq/L 98-107 dnni=939) CO2 (BEAKER) (test 27 meq/L 22-29 skve=033) BLOOD UREA NITROGEN 46 mg/dL 7-21 (BEAKER) (test pyud=620) CREATININE (BEAKER) (test 1.28 mg/dL 0.57-1.25 fzwq=081) GLUCOSE RANDOM (BEAKER) 133 mg/dL 70-105 (test ygrn=044) CALCIUM (BEAKER) (test 8.4 mg/dL 8.4-10.2 hfbw=103) EGFR (BEAKER) (test mL/min/1.73 sq m INSUFFICIENT CLINICAL DATA kglb=3323) TO CALCULATE ESTIMATED GFR. [id number] 03:46:00 Test Item Value Reference Range Comments MAGNESIUM (BEAKER) (test rfvp=958) 2.2 mg/dL 1.6-2.6 HEPATIC FUNCTION [id number] 03:46:00 Test Item Value Reference Range Comments TOTAL PROTEIN (BEAKER) (test gayd=212) 6.0 gm/dL 6.0-8.3 ALBUMIN (BEAKER) (test ygos=3646) 3.4 g/dL 3.5-5.0 BILIRUBIN TOTAL (BEAKER) (test bcpx=295) 1.7 mg/dL 0.2-1.2 BILIRUBIN DIRECT (BEAKER) (test lari=991) 1.0 mg/dL 0.1-0.5 ALKALINE PHOSPHATASE (BEAKER) (test osqa=143) 72 U/L 40-150 AST (SGOT) (BEAKER) (test jqtv=494) 46 U/L 5-34 ALT (SGPT) (BEAKER) (test cpgj=422) 32 U/L 6-55 [id number] 03:45:00 Test Item Value Reference Range Comments PARTIAL THROMBOPLASTIN TIME (BEAKER) (test 34.2 seconds 22.5-36.0 pezw=754) PROTHROMBIN [id number] 03:44:00 Test Item Value Reference Range Comments PROTIME (BEAKER) (test brpr=234) 18.3 seconds 11.7-14.7 INR (BEAKER) (test ngnw=357) 1.5 <=5.9 RECOMMENDED COUMADIN/WARFARIN INR THERAPY RANGESSTANDARD DOSE: 2.0 - 3.0 Includes: PROPHYLAXIS forvenous thrombosis, systemic embolization; TREATMENT for venous thrombosis and/or pulmonary embolus.HIGH RISK: Target INR is 2.5-3.5 for patients with mechanical heart valves.CBC W/PLT COUNT & AUTO [id number] 03:42:00 Test Item Value Reference Range Comments WHITE BLOOD CELL COUNT (BEAKER) (test frpv=109) 17.8 K/ L 4.0-10.0 RED BLOOD CELL COUNT (BEAKER) (test vwqs=011) 2.81 M/ L 4.20-5.80 HEMOGLOBIN (BEAKER) (test ddvt=895) 8.9 GM/DL 13.0-16.8 HEMATOCRIT (BEAKER) (test gzio=269) 27.4 % 40.0-50.0 MEAN CORPUSCULAR VOLUME (BEAKER) (test xfoj=540) 97.5 fL 82.0-98.0 MEAN CORPUSCULAR HEMOGLOBIN (BEAKER) (test 31.7 pg 27.0-33.0 ntbg=722) MEAN CORPUSCULAR HEMOGLOBIN CONC (BEAKER) (test 32.6 GM/DL 32.0-36.0 tpga=006) RED CELL DISTRIBUTION WIDTH (BEAKER) (test 14.8 % 10.3-14.2 ynuy=701) PLATELET COUNT (BEAKER) (test mfkd=623) 56 K/CU MM 150-430 MEAN PLATELET VOLUME (BEAKER) (test rzdy=442) 8.6 fL 6.5-10.5 NUCLEATED RED BLOOD CELLS (BEAKER) (test 0 /100 WBC 0-0 jxbz=991) NEUTROPHILS RELATIVE PERCENT (BEAKER) (test 89 % bwid=849) LYMPHOCYTES RELATIVE PERCENT (BEAKER) (test 3 % pyzk=832) MONOCYTES RELATIVE PERCENT (BEAKER) (test 8 % jbdp=515) EOSINOPHILS RELATIVE PERCENT (BEAKER) (test 0 % arcf=449) BASOPHILS RELATIVE PERCENT (BEAKER) (test 0 % ideb=451) NEUTROPHILS ABSOLUTE COUNT (BEAKER) (test 15.90 K/ L 1.80-8.00 nnhn=031) LYMPHOCYTES ABSOLUTE COUNT (BEAKER) (test 0.51 K/ L 1.48-4.50 rlmd=547) MONOCYTES ABSOLUTE COUNT (BEAKER) (test cswh=752) 1.38 K/ L 0.00-1.30 EOSINOPHILS ABSOLUTE COUNT (BEAKER) (test 0.01 K/ L 0.00-0.50 ehhq=517) BASOPHILS ABSOLUTE COUNT (BEAKER) (test vztb=776) 0.00 K/ L 0.00-0.20 0.00OXYGEN SATURATION, [id number] 03:33:00 Test Item Value Reference Range Comments O2 SATURATION (MEASURED) (BEAKER) (test zroi=7871) 68.8 % POCT-GLUCOSE [id number] 21:40:00 Test Item Value Reference Range Comments POC-GLUCOSE METER (BEAKER) 181 mg/dL 70-110 TESTED AT [facility] [address], [place] (test avxw=1866) [facility] [id number] BASIC METABOLIC [id number] 21:06:00 Test Item Value Reference Range Comments SODIUM (BEAKER) (test 136 meq/L 136-145 qfoa=231) POTASSIUM (BEAKER) (test 4.1 meq/L 3.5-5.1 tyvd=092) CHLORIDE (BEAKER) (test 102 meq/L 98-107 wnhn=741) CO2 (BEAKER) (test 22 meq/L 22-29 riil=858) BLOOD UREA NITROGEN 40 mg/dL 7-21 (BEAKER) (test alrx=037) CREATININE (BEAKER) (test 1.38 mg/dL 0.57-1.25 obcn=139) GLUCOSE RANDOM (BEAKER) 207 mg/dL 70-105 (test fgoj=355) CALCIUM (BEAKER) (test 8.6 mg/dL 8.4-10.2 vnvw=632) EGFR (BEAKER) (test mL/min/1.73 sq m INSUFFICIENT CLINICAL DATA rwhv=5286) TO CALCULATE ESTIMATED GFR. [id number] 21:04:00 Test Item Value Reference Range Comments PHOSPHORUS (BEAKER) (test jyia=232) 5.4 mg/dL 2.3-4.7 [id number] 21:04:00 Test Item Value Reference Range Comments MAGNESIUM (BEAKER) (test pjfr=857) 2.2 mg/dL 1.6-2.6 CALCIUM, [id number] 20:47:00 Test Item Value Reference Range Comments CALCIUM IONIZED (BEAKER) (test jzev=734) 1.13 mmol/L 1.12-1.27 PH, BLOOD (BEAKER) (test vtlx=3435) 7.38 POCT-GLUCOSE [id number] 17:51:00 Test Item Value Reference Range Comments POC-GLUCOSE METER (BEAKER) 173 mg/dL 70-110 TESTED AT [facility] [address], [place] (test ynwk=4514) [facility] [id number] LACTIC ACID, ARTERIAL, WHOLE [id number] 13:02:00 Test Item Value Reference Range Comments LACTATE BLOOD ARTERIAL (2) 1.4 mmol/L 0.5-2.2 Specimen slightly hemolyzed (BEAKER) (test tumd=4497) Effective 10/24/2015: Units/Reference Range ChangeNew: 0.5-2.2 mmol/L Previous: 5 -20 mg/dLSpecimen slightly ictericOXYGEN SATURATION, [id number] 07:40:00 Test Item Value Reference Range Comments O2 SATURATION (MEASURED) (BEAKER) (test vajw=5196) 71.2 % BLOOD GAS, [id number] 07:39:00 Test Item Value Reference Range Comments PH ARTERIAL (BEAKER) (test vfzf=374) 7.42 7.35-7.45 PCO2 ARTERIAL (BEAKER) (test jljx=369) 42 mmHg 35-45 PO2 ARTERIAL (BEAKER) (test fnvu=883) 126 mmHg 80-90 O2 SATURATION ARTERIAL (BEAKER) (test vihb=043) 98.6 % 96.0-97.0 HCO3 ARTERIAL (BEAKER) (test xzod=818) 27 mmol/L 21-29 BASE EXCESS ARTERIAL (BEAKER) (test cmur=048) 1.8 mmol/L -2.0-3.0 PATIENT TEMPERATURE (BEAKER) (test opoy=1174) 36.3 C FIO2 (BEAKER) (test bpjq=6142) 36.0 % [id number] 05:56:00 Test Item Value Reference Range Comments ACTIVATED CLOTTING TIME 131 sec TESTED AT [address] [facility] (test ruru=256) [place] [address] [id number] 05:56:00 Test Item Value Reference Range Comments ACTIVATED CLOTTING TIME > sec OUTSIDE MEASURING RANGETESTED AT [facility]) (test rwed=399) [place] [address] [id number] 05:56:00 Test Item Value Reference Range Comments ACTIVATED CLOTTING TIME 441 sec TESTED AT [address] ([facility]) (test xelc=759) [place] [id number] 05:56:00 Test Item Value Reference Range Comments ACTIVATED CLOTTING TIME 533 sec TESTED AT [address] [facility] (test zavo=699) [place] [address] [id number] 05:56:00 Test Item Value Reference Range Comments ACTIVATED CLOTTING TIME 528 sec TESTED AT [address] ([facility]) (test ojqs=697) [place] [address] [id number] 05:56:00 Test Item Value Reference Range Comments ACTIVATED CLOTTING TIME 415 sec TESTED AT [address] ([facility] (test grwn=927) [place] [id number] 05:56:00 Test Item Value Reference Range Comments ACTIVATED CLOTTING TIME 301 sec TESTED AT [address] ([facility]) (test qvpe=555) [place] [id number] POCT-GLUCOSE [id number] 05:45:00 Test Item Value Reference Range Comments POC-GLUCOSE METER (BEAKER) 116 mg/dL 70-110 TESTED AT [facility] [address], [place] (test gnke=7558) [facility] [address] BASIC METABOLIC [id number] 02:50:00 Test Item Value Reference Range Comments SODIUM (BEAKER) (test 139 meq/L 136-145 pgtg=089) POTASSIUM (BEAKER) (test 4.5 meq/L 3.5-5.1 jzvm=115) CHLORIDE (BEAKER) (test 105 meq/L 98-107 ztdg=610) CO2 (BEAKER) (test 23 meq/L 22-29 nrma=972) BLOOD UREA NITROGEN 42 mg/dL 7-21 (BEAKER) (test nhox=980) CREATININE (BEAKER) (test 1.28 mg/dL 0.57-1.25 hqiu=570) GLUCOSE RANDOM (BEAKER) 121 mg/dL 70-105 (test ffui=458) CALCIUM (BEAKER) (test 9.3 mg/dL 8.4-10.2 mftw=704) EGFR (BEAKER) (test mL/min/1.73 sq m INSUFFICIENT CLINICAL DATA exol=2768) TO CALCULATE ESTIMATED GFR. Specimen slightly ictericHEPATIC FUNCTION [id number] 02:42:00 Test Item Value Reference Range Comments TOTAL PROTEIN (BEAKER) (test lrad=134) 5.8 gm/dL 6.0-8.3 ALBUMIN (BEAKER) (test hyoo=0567) 3.3 g/dL 3.5-5.0 BILIRUBIN TOTAL (BEAKER) (test lycr=507) 2.2 mg/dL 0.2-1.2 BILIRUBIN DIRECT (BEAKER) (test smhd=273) 1.2 mg/dL 0.1-0.5 ALKALINE PHOSPHATASE (BEAKER) (test opov=828) 67 U/L 40-150 AST (SGOT) (BEAKER) (test gcfr=543) 49 U/L 5-34 ALT (SGPT) (BEAKER) (test bitv=157) 30 U/L 6-55 Specimen slightly ictericCBC W/PLT COUNT & AUTO [id number] 02:34 :00 Test Item Value Reference Range Comments WHITE BLOOD CELL COUNT (BEAKER) (test jhqz=576) 23.7 K/ L 4.0-10.0 RED BLOOD CELL COUNT (BEAKER) (test ifbp=789) 3.08 M/ L 4.20-5.80 HEMOGLOBIN (BEAKER) (test bfzk=232) 9.7 GM/DL 13.0-16.8 HEMATOCRIT (BEAKER) (test shch=974) 30.0 % 40.0-50.0 MEAN CORPUSCULAR VOLUME (BEAKER) (test ojlx=252) 97.4 fL 82.0-98.0 MEAN CORPUSCULAR HEMOGLOBIN (BEAKER) (test 31.4 pg 27.0-33.0 zjhh=561) MEAN CORPUSCULAR HEMOGLOBIN CONC (BEAKER) (test 32.2 GM/DL 32.0-36.0 qpql=656) RED CELL DISTRIBUTION WIDTH (BEAKER) (test 15.4 % 10.3-14.2 owpg=616) PLATELET COUNT (BEAKER) (test ynhy=412) 128 K/CU MM 150-430 MEAN PLATELET VOLUME (BEAKER) (test ygub=526) 7.7 fL 6.5-10.5 NUCLEATED RED BLOOD CELLS (BEAKER) (test 0 /100 WBC 0-0 xgkh=304) NEUTROPHILS RELATIVE PERCENT (BEAKER) (test 87 % bhii=094) LYMPHOCYTES RELATIVE PERCENT (BEAKER) (test 3 % ggko=494) MONOCYTES RELATIVE PERCENT (BEAKER) (test 9 % uitu=257) EOSINOPHILS RELATIVE PERCENT (BEAKER) (test 0 % eybp=490) BASOPHILS RELATIVE PERCENT (BEAKER) (test 1 % retj=294) NEUTROPHILS ABSOLUTE COUNT (BEAKER) (test 20.70 K/ L 1.80-8.00 uvpd=928) LYMPHOCYTES ABSOLUTE COUNT (BEAKER) (test 0.71 K/ L 1.48-4.50 kxgf=154) MONOCYTES ABSOLUTE COUNT (BEAKER) (test 2.09 K/ L 0.00-1.30 pvva=095) EOSINOPHILS ABSOLUTE COUNT (BEAKER) (test 0.02 K/ L 0.00-0.50 jzmr=242) BASOPHILS ABSOLUTE COUNT (BEAKER) (test 0.12 K/ L 0.00-0.20 mzbm=635) [id number] 02:27:00 Test Item Value Reference Range Comments FIBRINOGEN LEVEL (BEAKER) (test plit=292) 225 mg/dl 225-434 [id number] 02:27:00 Test Item Value Reference Range Comments PARTIAL THROMBOPLASTIN TIME (BEAKER) (test 33.6 seconds 22.5-36.0 fufm=009) PROTHROMBIN TIME/[id number] 02:26:00 Test Item Value Reference Range Comments PROTIME (BEAKER) (test jfin=218) 18.3 seconds 11.7-14.7 INR (BEAKER) (test uoyu=931) 1.5 <=5.9 RECOMMENDED COUMADIN/WARFARIN INR THERAPY RANGESSTANDARD DOSE: 2.0 - 3.0 Includes: PROPHYLAXIS forvenous thrombosis, systemic embolization; TREATMENT for venous thrombosis and/or pulmonary embolus.HIGH RISK: Target INR is 2.5-3.5 for patients with mechanical heart valves.[id number] 00:45:00 Test Item Value Reference Range Comments MAGNESIUM (BEAKER) (test fgyt=816) 2.4 mg/dL 1.6-2.6 POCT-GLUCOSE [id number] 00:03:00 Test Item Value Reference Range Comments POC-GLUCOSE METER (BEAKER) 136 mg/dL 70-110 TESTED AT [address] (test fdep=4293) [place] [address] POCT-GLUCOSE [id number] 22:33:00 Test Item Value Reference Range Comments POC-GLUCOSE METER (BEAKER) 136 mg/dL 70-110 TESTED AT [address] (test yjhh=3453) [place] [address] (MANUAL DIFFERENTIAL)[id number] 22:03:00 Test Item Value Reference Range Comments NEUTROPHILS - REL (DIFF) (BEAKER) (test 85 % qmsq=8118) LYMPHOCYTES - REL (DIFF) (BEAKER) (test 5 % zxzg=2959) MONOCYTES - REL (DIFF) (BEAKER) (test gksz=8313) 7 % BANDS - REL (DIFF) (BEAKER) (test jcdc=0093) 3 % 0-10 NEUTROPHILS - ABS (DIFF) (BEAKER) (test 24.06 K/ L 1.80-8.00 iifs=3436) LYMPHOCYTES - ABS (DIFF) (BEAKER) (test 1.42 K/ L 1.48-4.50 cjer=4180) MONOCYTES - ABS (DIFF) (BEAKER) (test chcb=5858) 1.98 K/ L 0.00-1.30 BANDS-ABS (DIFF) (BEAKER) (test qevi=8431) 0.8 K/ L 0.0-0.8 TOTAL COUNTED (BEAKER) (test elbn=3145) 100 BANDS + SEGMENTED NEUTROPHILS (BEAKER) (test 24.90 gwyy=0179) WBC MORPHOLOGY (BEAKER) (test xmtc=604) Normal PLT MORPHOLOGY (BEAKER) (test zawj=479) Normal RBC MORPHOLOGY (BEAKER) (test ygzm=502) Normal CBC W/PLT COUNT & AUTO [id number] 22:02:00 Test Item Value Reference Range Comments WHITE BLOOD CELL COUNT (BEAKER) (test gfwk=193) 28.3 K/ L 4.0-10.0 RED BLOOD CELL COUNT (BEAKER) (test gydi=460) 3.35 M/ L 4.20-5.80 HEMOGLOBIN (BEAKER) (test jhwi=620) 10.5 GM/DL 13.0-16.8 HEMATOCRIT (BEAKER) (test llpk=311) 32.3 % 40.0-50.0 MEAN CORPUSCULAR VOLUME (BEAKER) (test yfmg=724) 96.6 fL 82.0-98.0 MEAN CORPUSCULAR HEMOGLOBIN (BEAKER) (test 31.3 pg 27.0-33.0 jkai=377) MEAN CORPUSCULAR HEMOGLOBIN CONC (BEAKER) (test 32.4 GM/DL 32.0-36.0 znli=307) RED CELL DISTRIBUTION WIDTH (BEAKER) (test 14.9 % 10.3-14.2 wbok=901) PLATELET COUNT (BEAKER) (test fmnd=146) 139 K/CU MM 150-430 MEAN PLATELET VOLUME (BEAKER) (test cadi=677) 7.9 fL 6.5-10.5 NUCLEATED RED BLOOD CELLS (BEAKER) (test 0 /100 WBC 0-0 mdjf=263) 0.000.550.000.000.000.00LACTIC ACID, ARTERIAL, WHOLE [id number] 21:40:00 Test Item Value Reference Range Comments LACTATE BLOOD ARTERIAL (2) (BEAKER) (test 1.3 mmol/L 0.5-2.2 qedx=7808) Effective 10/24/2015: Units/Reference Range ChangeNew: 0.5-2.2 mmol/L Previous: 5 -20 mg/dLSpecimen slightly ictericPROTHROMBIN [id number] 21:34:00 Test Item Value Reference Range Comments PROTIME (BEAKER) (test csyr=299) 18.7 seconds 11.7-14.7 INR (BEAKER) (test dxwn=301) 1.6 <=5.9 RECOMMENDED COUMADIN/WARFARIN INR THERAPY RANGESSTANDARD DOSE: 2.0 - 3.0 Includes: PROPHYLAXIS forvenous thrombosis, systemic embolization; TREATMENT for venous thrombosis and/or pulmonary embolus.HIGH RISK: Target INR is 2.5-3.5 for patients with mechanical heart valves.[id number] 21:34:00 Test Item Value Reference Range Comments PARTIAL THROMBOPLASTIN TIME (BEAKER) (test 34.3 seconds 22.5-36.0 ojmq=145) [id number] 21:28:00 Test Item Value Reference Range Comments POTASSIUM (BEAKER) (test xiwy=415) 4.6 meq/L 3.5-5.1 POCT-GLUCOSE [id number] 21:27:00 Test Item Value Reference Range Comments POC-GLUCOSE METER (BEAKER) 150 mg/dL 70-110 TESTED AT [facility] [address], [place] (test cutm=3335) [facility] [address] BLOOD GAS, [id number] 21:17:00 Test Item Value Reference Range Comments PH ARTERIAL (BEAKER) (test gccx=349) 7.38 7.35-7.45 PCO2 ARTERIAL (BEAKER) (test yhmm=981) 49 mmHg 35-45 PO2 ARTERIAL (BEAKER) (test eiwq=222) 102 mmHg 80-90 O2 SATURATION ARTERIAL (BEAKER) (test bkmk=266) 97.5 % 96.0-97.0 HCO3 ARTERIAL (BEAKER) (test dkyk=464) 28 mmol/L 21-29 BASE EXCESS ARTERIAL (BEAKER) (test gsct=375) 2.5 mmol/L -2.0-3.0 PATIENT TEMPERATURE (BEAKER) (test wtzq=8303) 37.1 C FIO2 (BEAKER) (test jlvj=4660) 40.0 % 30 minutes s/p bipap [id number] 20:29:00 Test Item Value Reference Range Comments POTASSIUM (BEAKER) (test eolp=243) 4.6 meq/L 3.5-5.1 Check Serum Potassium level 2 hours after oral potassium replacement completed or 30 min after intravenous potassium replacement.BLOOD GAS, [id number] 20:06:00 Test Item Value Reference Range Comments PH ARTERIAL (BEAKER) (test zuny=601) 7.28 7.35-7.45 PCO2 ARTERIAL (BEAKER) (test iujq=872) 67 mmHg 35-45 PO2 ARTERIAL (BEAKER) (test ktnb=164) 80 mmHg 80-90 O2 SATURATION ARTERIAL (BEAKER) (test vbja=491) 94.0 % 96.0-97.0 HCO3 ARTERIAL (BEAKER) (test froy=590) 31 mmol/L 21-29 BASE EXCESS ARTERIAL (BEAKER) (test wevh=263) 2.8 mmol/L -2.0-3.0 PATIENT TEMPERATURE (BEAKER) (test pyvw=9151) 37.0 C FIO2 (BEAKER) (test phou=8751) 36.0 % POTASSIUM-STAT [id number] 17:23:00 Test Item Value Reference Range Comments POTASSIUM (BEAKER) (test hryh=726) 4.2 meq/L 3.6-5.5 GLUCOSE-STAT [id number] 17:23:00 Test Item Value Reference Range Comments GLUCOSE RANDOM (BEAKER) (test wcpv=353) 133 mg/dL 70-110 BLOOD GAS, [id number] 17:23:00 Test Item Value Reference Range Comments PH ARTERIAL (BEAKER) (test riva=653) 7.44 7.35-7.45 PCO2 ARTERIAL (BEAKER) (test bzhv=195) 42 mmHg 35-45 PO2 ARTERIAL (BEAKER) (test ghns=452) 107 mmHg 80-90 O2 SATURATION ARTERIAL (BEAKER) (test cmdq=383) 98.1 % 96.0-97.0 HCO3 ARTERIAL (BEAKER) (test khqz=507) 28 mmol/L 21-29 BASE EXCESS ARTERIAL (BEAKER) (test dvre=689) 3.3 mmol/L -2.0-3.0 PATIENT TEMPERATURE (BEAKER) (test afee=4483) 36.4 C FIO2 (BEAKER) (test vlfj=3329) 40.0 % CBC W/PLT COUNT & AUTO [id number] 14:50:00 Test Item Value Reference Range Comments WHITE BLOOD CELL COUNT (BEAKER) (test xhje=105) 31.6 K/ L 4.0-10.0 RED BLOOD CELL COUNT (BEAKER) (test hljk=340) 3.12 M/ L 4.20-5.80 HEMOGLOBIN (BEAKER) (test ochy=601) 10.6 GM/DL 13.0-16.8 HEMATOCRIT (BEAKER) (test xdrb=716) 30.0 % 40.0-50.0 MEAN CORPUSCULAR VOLUME (BEAKER) (test wxyk=620) 96.3 fL 82.0-98.0 MEAN CORPUSCULAR HEMOGLOBIN (BEAKER) (test 33.9 pg 27.0-33.0 nfia=921) MEAN CORPUSCULAR HEMOGLOBIN CONC (BEAKER) (test 35.2 GM/DL 32.0-36.0 emzy=543) RED CELL DISTRIBUTION WIDTH (BEAKER) (test 14.6 % 10.3-14.2 nwhr=274) PLATELET COUNT (BEAKER) (test nwcj=359) 124 K/CU MM 150-430 MEAN PLATELET VOLUME (BEAKER) (test oqcj=601) 7.8 fL 6.5-10.5 NUCLEATED RED BLOOD CELLS (BEAKER) (test 0 /100 WBC 0-0 ymrz=406) 0.000.550.000.000.680.000.000.000.00(MANUAL DIFFERENTIAL)2016-09-23 14:50:00 Test Item Value Reference Range Comments NEUTROPHILS - REL (DIFF) (BEAKER) (test 86 % qtwb=7362) LYMPHOCYTES - REL (DIFF) (BEAKER) (test 1 % olwp=0302) MONOCYTES - REL (DIFF) (BEAKER) (test nskz=9240) 1 % BANDS - REL (DIFF) (BEAKER) (test lmow=6461) 11 % 0-10 ATYPICAL LYMPHOCYTE - REL (DIFF) (BEAKER) (test 1 % 0-0 ehlq=124) NEUTROPHILS - ABS (DIFF) (BEAKER) (test 27.18 K/ L 1.80-8.00 zphe=7078) LYMPHOCYTES - ABS (DIFF) (BEAKER) (test 0.32 K/ L 1.48-4.50 vhus=3069) MONOCYTES - ABS (DIFF) (BEAKER) (test lqaw=0764) 0.32 K/ L 0.00-1.30 BANDS-ABS (DIFF) (BEAKER) (test aixf=3323) 3.5 K/ L 0.0-0.8 ATYPICAL LYMPHOCYTES - ABS (DIFF) (BEAKER) (test 0.32 K/ L 0.00-0.00 nqco=216) TOTAL COUNTED (BEAKER) (test djne=1990) 100 BANDS + SEGMENTED NEUTROPHILS (BEAKER) (test 30.65 dpof=2244) WBC MORPHOLOGY (BEAKER) (test pufy=651) Normal PLT MORPHOLOGY (BEAKER) (test umai=809) Normal RBC MORPHOLOGY (BEAKER) (test meqt=721) Normal [id number] 13:33:00 Test Item Value Reference Range Comments FIBRINOGEN LEVEL (BEAKER) (test rtqq=699) 204 mg/dl 225-434 [id number] 13:33:00 Test Item Value Reference Range Comments PARTIAL THROMBOPLASTIN TIME (BEAKER) (test 37.7 seconds 22.5-36.0 ymqa=609) PROTHROMBIN [id number] 13:32:00 Test Item Value Reference Range Comments PROTIME (BEAKER) (test fwig=947) 20.5 seconds 11.7-14.7 INR (BEAKER) (test ghcz=739) 1.8 <=5.9 RECOMMENDED COUMADIN/WARFARIN INR THERAPY RANGESSTANDARD DOSE: 2.0 - 3.0 Includes: PROPHYLAXIS forvenous thrombosis, systemic embolization; TREATMENT for venous thrombosis and/or pulmonary embolus.HIGH RISK: Target INR is 2.5-3.5 for patients with mechanical heart valves.CALCIUM, [id number] 13:15:00 Test Item Value Reference Range Comments CALCIUM IONIZED (BEAKER) (test puva=415) 1.32 mmol/L 1.12-1.27 PH, BLOOD (BEAKER) (test jomj=8641) 7.42 [id number] 13:13:00 Test Item Value Reference Range Comments MAGNESIUM (BEAKER) (test pmal=455) 2.7 mg/dL 1.6-2.6 LACTIC ACID, ARTERIAL, WHOLE [id number] 13:12:00 Test Item Value Reference Range Comments LACTATE BLOOD ARTERIAL (2) (BEAKER) (test 1.7 mmol/L 0.5-2.2 rpkj=2773) Effective 10/24/2015: Units/Reference Range ChangeNew: 0.5-2.2 mmol/L Previous: 5 -20 mg/dLBLOOD GAS, [id number] 13:08:00 Test Item Value Reference Range Comments PH ARTERIAL (BEAKER) (test gacb=660) 7.45 7.35-7.45 PCO2 ARTERIAL (BEAKER) (test uisu=675) 42 mmHg 35-45 PO2 ARTERIAL (BEAKER) (test mszm=629) 97 mmHg 80-90 O2 SATURATION ARTERIAL (BEAKER) (test gjef=987) 98.0 % 96.0-97.0 HCO3 ARTERIAL (BEAKER) (test mufy=369) 29 mmol/L 21-29 BASE EXCESS ARTERIAL (BEAKER) (test jtmp=055) 3.6 mmol/L -2.0-3.0 PATIENT TEMPERATURE (BEAKER) (test yatj=7305) 34.9 C FIO2 (BEAKER) (test mhmz=5022) 60.0 % SODIUM NA-STAT [id number] 13:08:00 Test Item Value Reference Range Comments SODIUM (BEAKER) (test lsel=368) 133 meq/L 135-148 POTASSIUM-STAT [id number] 13:08:00 Test Item Value Reference Range Comments POTASSIUM (BEAKER) (test vgzv=403) 3.1 meq/L 3.6-5.5 GLUCOSE-STAT [id number] 13:08:00 Test Item Value Reference Range Comments GLUCOSE RANDOM (BEAKER) (test oezx=080) 139 mg/dL 70-110 OXYGEN SATURATION, [id number] 13:05:00 Test Item Value Reference Range Comments O2 SATURATION (MEASURED) (BEAKER) (test kmpy=8861) 76.5 % [id number] 12:00:00 Test Item Value Reference Range Comments FIBRINOGEN LEVEL (BEAKER) (test gayx=918) 118 mg/dl 225-434 PLATELET [id number] 11:59:00 Test Item Value Reference Range Comments PLATELET COUNT (BEAKER) (test cvbz=497) 129 K/CU MM 150-430 [id number] 11:55:00 Test Item Value Reference Range Comments PARTIAL THROMBOPLASTIN TIME (BEAKER) (test 47.7 seconds 22.5-36.0 llyd=599) CALCIUM, [id number] 11:54:00 Test Item Value Reference Range Comments CALCIUM IONIZED (BEAKER) (test slyp=389) 1.13 mmol/L 1.12-1.27 PH, BLOOD (BEAKER) (test sdqx=4110) 7.44 PROTHROMBIN [id number] 11:54:00 Test Item Value Reference Range Comments PROTIME (BEAKER) (test stfo=014) 26.0 seconds 11.7-14.7 INR (BEAKER) (test tzgj=819) 2.4 <=5.9 RECOMMENDED COUMADIN/WARFARIN INR THERAPY RANGESSTANDARD DOSE: 2.0 - 3.0 Includes: PROPHYLAXIS forvenous thrombosis, systemic embolization; TREATMENT for venous thrombosis and/or pulmonary embolus.HIGH RISK: Target INR is 2.5-3.5 for patients with mechanical heart valves.BLOOD GAS, [id number] 11:53:00 Test Item Value Reference Range Comments PH ARTERIAL (BEAKER) (test ltqw=090) 7.45 7.35-7.45 PCO2 ARTERIAL (BEAKER) (test dgxt=073) 40 mmHg 35-45 PO2 ARTERIAL (BEAKER) (test yqdf=582) 263 mmHg 80-90 O2 SATURATION ARTERIAL (BEAKER) (test vfho=615) 99.6 % 96.0-97.0 HCO3 ARTERIAL (BEAKER) (test dtvc=891) 28 mmol/L 21-29 BASE EXCESS ARTERIAL (BEAKER) (test cnoo=494) 3.2 mmol/L -2.0-3.0 PATIENT TEMPERATURE (BEAKER) (test cmqx=2769) 36.0 C FIO2 (BEAKER) (test qule=1568) 100.0 % GLUCOSE-STAT [id number] 11:53:00 Test Item Value Reference Range Comments GLUCOSE RANDOM (BEAKER) (test ovvp=656) 158 mg/dL 70-110 POTASSIUM-STAT [id number] 11:53:00 Test Item Value Reference Range Comments POTASSIUM (BEAKER) (test fpwd=490) 3.0 meq/L 3.6-5.5 HGB/HCT (H&H) - STAT [id number] 11:53:00 Test Item Value Reference Range Comments HEMOGLOBIN (BEAKER) (test qvxg=040) 8.6 g/dL 13.0-16.8 HEMATOCRIT (BEAKER) (test ezai=417) 25.0 % 40.0-50.0 SODIUM NA-STAT [id number] 11:52:00 Test Item Value Reference Range Comments SODIUM (BEAKER) (test qram=322) 135 meq/L 135-148 BLOOD GAS, [id number] 11:26:00 Test Item Value Reference Range Comments PH ARTERIAL (BEAKER) (test jrrv=066) 7.37 7.35-7.45 PCO2 ARTERIAL (BEAKER) (test uphy=235) 48 mmHg 35-45 PO2 ARTERIAL (BEAKER) (test czsc=218) 76 mmHg 80-90 O2 SATURATION ARTERIAL (BEAKER) (test cjra=584) 95.5 % 96.0-97.0 HCO3 ARTERIAL (BEAKER) (test wnzx=568) 27 mmol/L 21-29 BASE EXCESS ARTERIAL (BEAKER) (test rxaz=061) 0.9 mmol/L -2.0-3.0 PATIENT TEMPERATURE (BEAKER) (test xymh=1494) 35.6 C FIO2 (BEAKER) (test vccs=8176) 100.0 % SODIUM NA-STAT [id number] 11:26:00 Test Item Value Reference Range Comments SODIUM (BEAKER) (test uvqg=789) 133 meq/L 135-148 POTASSIUM-STAT [id number] 11:26:00 Test Item Value Reference Range Comments POTASSIUM (BEAKER) (test dxjy=872) 3.1 meq/L 3.6-5.5 GLUCOSE-STAT [id number] 11:26:00 Test Item Value Reference Range Comments GLUCOSE RANDOM (BEAKER) (test kevs=964) 158 mg/dL 70-110 HGB/HCT (H&H) - STAT [id number] 11:26:00 Test Item Value Reference Range Comments HEMOGLOBIN (BEAKER) (test oraz=558) 8.3 g/dL 13.0-16.8 HEMATOCRIT (BEAKER) (test keak=762) 24.0 % 40.0-50.0 CALCIUM, [id number] 11:26:00 Test Item Value Reference Range Comments CALCIUM IONIZED (BEAKER) (test mxua=519) 0.86 mmol/L 1.12-1.27 PH, BLOOD (BEAKER) (test stft=9199) 7.35 [id number] 11:01:00 Test Item Value Reference Range Comments FIBRINOGEN LEVEL (BEAKER) (test ueay=599) 99 mg/dl 225-434 PROTHROMBIN TIME/[id number] 10:50:00 Test Item Value Reference Range Comments PROTIME (BEAKER) (test qcuu=996) 46.0 seconds 11.7-14.7 INR (BEAKER) (test arla=437) 4.9 <=5.9 RECOMMENDED COUMADIN/WARFARIN INR THERAPY RANGESSTANDARD DOSE: 2.0 - 3.0 Includes: PROPHYLAXIS forvenous thrombosis, systemic embolization; TREATMENT for venous thrombosis and/or pulmonary embolus.HIGH RISK: Target INR is 2.5-3.5 for patients with mechanical heart valves.PLATELET [id number] 10:47:00 Test Item Value Reference Range Comments PLATELET COUNT (BEAKER) (test wojo=315) 104 K/CU MM 150-430 BLOOD GAS, [id number] 10:30:00 Test Item Value Reference Range Comments PH ARTERIAL (BEAKER) (test ukwz=795) 7.53 7.35-7.45 PCO2 ARTERIAL (BEAKER) (test ldog=613) 37 mmHg 35-45 PO2 ARTERIAL (BEAKER) (test xmoz=206) 256 mmHg 80-90 O2 SATURATION ARTERIAL (BEAKER) (test glvt=115) 99.7 % 96.0-97.0 HCO3 ARTERIAL (BEAKER) (test hccf=085) 31 mmol/L 21-29 BASE EXCESS ARTERIAL (BEAKER) (test qmhc=522) 7.0 mmol/L -2.0-3.0 PATIENT TEMPERATURE (BEAKER) (test jtyj=3935) 33.4 C FIO2 (BEAKER) (test zjrg=9794) 65.0 % SODIUM NA-STAT [id number] 10:30:00 Test Item Value Reference Range Comments SODIUM (BEAKER) (test yhaa=972) 131 meq/L 135-148 POTASSIUM-STAT [id number] 10:30:00 Test Item Value Reference Range Comments POTASSIUM (BEAKER) (test tbnm=657) 3.3 meq/L 3.6-5.5 GLUCOSE-STAT [id number] 10:30:00 Test Item Value Reference Range Comments GLUCOSE RANDOM (BEAKER) (test vvgi=740) 122 mg/dL 70-110 HGB/HCT (H&H) - STAT [id number] 10:30:00 Test Item Value Reference Range Comments HEMOGLOBIN (BEAKER) (test dxfg=712) 9.8 g/dL 13.0-16.8 HEMATOCRIT (BEAKER) (test afpx=418) 29.0 % 40.0-50.0 GLUCOSE-STAT [id number] 09:54:00 Test Item Value Reference Range Comments GLUCOSE RANDOM (BEAKER) (test gsxx=761) 114 mg/dL 70-110 SODIUM NA-STAT [id number] 09:54:00 Test Item Value Reference Range Comments SODIUM (BEAKER) (test lqqa=223) 134 meq/L 135-148 POTASSIUM-STAT [id number] 09:54:00 Test Item Value Reference Range Comments POTASSIUM (BEAKER) (test ewos=387) 3.2 meq/L 3.6-5.5 HGB/HCT (H&H) - STAT [id number] 09:54:00 Test Item Value Reference Range Comments HEMOGLOBIN (BEAKER) (test bfih=525) 10.2 g/dL 13.0-16.8 HEMATOCRIT (BEAKER) (test tbyp=407) 30.0 % 40.0-50.0 BLOOD GAS, [id number] 09:53:00 Test Item Value Reference Range Comments PH ARTERIAL (BEAKER) (test opeq=129) 7.58 7.35-7.45 PCO2 ARTERIAL (BEAKER) (test imcx=246) 32 mmHg 35-45 PO2 ARTERIAL (BEAKER) (test rzni=229) 306 mmHg 80-90 O2 SATURATION ARTERIAL (BEAKER) (test rmgw=735) 99.8 % 96.0-97.0 HCO3 ARTERIAL (BEAKER) (test hvcu=900) 30 mmol/L 21-29 BASE EXCESS ARTERIAL (BEAKER) (test jfyc=969) 6.7 mmol/L -2.0-3.0 PATIENT TEMPERATURE (BEAKER) (test dsfq=9195) 33.4 C FIO2 (BEAKER) (test uunb=3866) 70.0 % BLOOD GAS, [id number] 09:35:00 Test Item Value Reference Range Comments PH ARTERIAL (BEAKER) (test evpj=531) 7.62 7.35-7.45 PCO2 ARTERIAL (BEAKER) (test cjax=533) 28 mmHg 35-45 PO2 ARTERIAL (BEAKER) (test izqt=499) 345 mmHg 80-90 O2 SATURATION ARTERIAL (BEAKER) (test nlvb=908) 99.8 % 96.0-97.0 HCO3 ARTERIAL (BEAKER) (test fqfn=630) 29 mmol/L 21-29 BASE EXCESS ARTERIAL (BEAKER) (test kgak=398) 6.6 mmol/L -2.0-3.0 PATIENT TEMPERATURE (BEAKER) (test ctyv=1384) 34.5 C FIO2 (BEAKER) (test dokq=9477) 80.0 % POTASSIUM-STAT [id number] 09:33:00 Test Item Value Reference Range Comments POTASSIUM (BEAKER) (test ebtw=496) 3.2 meq/L 3.6-5.5 SODIUM NA-STAT [id number] 09:33:00 Test Item Value Reference Range Comments SODIUM (BEAKER) (test juzl=234) 131 meq/L 135-148 HGB/HCT (H&H) - STAT [id number] 09:33:00 Test Item Value Reference Range Comments HEMOGLOBIN (BEAKER) (test jnqn=533) 9.2 g/dL 13.0-16.8 HEMATOCRIT (BEAKER) (test fban=086) 27.0 % 40.0-50.0 GLUCOSE-STAT [id number] 09:32:00 Test Item Value Reference Range Comments GLUCOSE RANDOM (BEAKER) (test jofq=504) 92 mg/dL 70-110 CALCIUM, [id number] 08:33:00 Test Item Value Reference Range Comments CALCIUM IONIZED (BEAKER) (test hmwi=434) 1.03 mmol/L 1.12-1.27 PH, BLOOD (BEAKER) (test zkvm=6279) 7.54 GLUCOSE-STAT [id number] 08:32:00 Test Item Value Reference Range Comments GLUCOSE RANDOM (BEAKER) (test kwhs=849) 81 mg/dL 70-110 BLOOD GAS, [id number] 08:32:00 Test Item Value Reference Range Comments PH ARTERIAL (BEAKER) (test adjz=537) 7.54 7.35-7.45 PCO2 ARTERIAL (BEAKER) (test vlfg=437) 39 mmHg 35-45 PO2 ARTERIAL (BEAKER) (test hgop=790) 113 mmHg 80-90 O2 SATURATION ARTERIAL (BEAKER) (test gopr=527) 98.6 % 96.0-97.0 HCO3 ARTERIAL (BEAKER) (test ywkt=946) 33 mmol/L 21-29 BASE EXCESS ARTERIAL (BEAKER) (test dnfa=221) 9.5 mmol/L -2.0-3.0 PATIENT TEMPERATURE (BEAKER) (test qfee=4201) 37.0 C FIO2 (BEAKER) (test enei=8310) 28.0 % SODIUM NA-STAT [id number] 08:32:00 Test Item Value Reference Range Comments SODIUM (BEAKER) (test gynt=893) 133 meq/L 135-148 POTASSIUM-STAT [id number] 08:32:00 Test Item Value Reference Range Comments POTASSIUM (BEAKER) (test tbat=039) 2.9 meq/L 3.6-5.5 HGB/HCT (H&H) - STAT [id number] 08:32:00 Test Item Value Reference Range Comments HEMOGLOBIN (BEAKER) (test rdnc=960) 10.8 g/dL 13.0-16.8 HEMATOCRIT (BEAKER) (test qnml=512) 32.0 % 40.0-50.0 POCT-GLUCOSE [id number] 06:20:00 Test Item Value Reference Range Comments POC-GLUCOSE METER (BEAKER) 107 mg/dL 70-110 TESTED AT [facility] [address], [place] (test hyno=7919) [facility] [id number] BASIC METABOLIC [id number] 05:13:00 Test Item Value Reference Range Comments SODIUM (BEAKER) (test 134 meq/L 136-145 qasv=063) POTASSIUM (BEAKER) (test 3.7 meq/L 3.5-5.1 pyla=570) CHLORIDE (BEAKER) (test 95 meq/L 98-107 yfhc=254) CO2 (BEAKER) (test 30 meq/L 22-29 tzsb=940) BLOOD UREA NITROGEN 45 mg/dL 7-21 (BEAKER) (test xqkx=389) CREATININE (BEAKER) (test 0.90 mg/dL 0.57-1.25 zolc=717) GLUCOSE RANDOM (BEAKER) 97 mg/dL 70-105 (test nurw=506) CALCIUM (BEAKER) (test 8.5 mg/dL 8.4-10.2 urkd=526) EGFR (BEAKER) (test mL/min/1.73 sq m INSUFFICIENT CLINICAL DATA eyvf=8265) TO CALCULATE ESTIMATED GFR. [id number] 05:12:00 Test Item Value Reference Range Comments FIBRINOGEN LEVEL (BEAKER) (test hdit=535) 116 mg/dl 225-434 HEPATIC FUNCTION [id number] 05:12:00 Test Item Value Reference Range Comments TOTAL PROTEIN (BEAKER) (test wlgl=944) 6.7 gm/dL 6.0-8.3 ALBUMIN (BEAKER) (test nqtz=6735) 3.6 g/dL 3.5-5.0 BILIRUBIN TOTAL (BEAKER) (test dsce=023) 1.5 mg/dL 0.2-1.2 BILIRUBIN DIRECT (BEAKER) (test wlpo=921) 0.8 mg/dL 0.1-0.5 ALKALINE PHOSPHATASE (BEAKER) (test zxjz=407) 85 U/L 40-150 AST (SGOT) (BEAKER) (test domy=946) 35 U/L 5-34 ALT (SGPT) (BEAKER) (test bwbt=878) 28 U/L 6-55 [id number] 05:07:00 Test Item Value Reference Range Comments PARTIAL THROMBOPLASTIN TIME (BEAKER) (test 28.7 seconds 22.5-36.0 rqav=706) PROTHROMBIN [id number] 05:06:00 Test Item Value Reference Range Comments PROTIME (BEAKER) (test sbmb=415) 19.1 seconds 11.7-14.7 INR (BEAKER) (test otyc=880) 1.6 <=5.9 RECOMMENDED COUMADIN/WARFARIN INR THERAPY RANGESSTANDARD DOSE: 2.0 - 3.0 Includes: PROPHYLAXIS forvenous thrombosis, systemic embolization; TREATMENT for venous thrombosis and/or pulmonary embolus.HIGH RISK: Target INR is 2.5-3.5 for patients with mechanical heart valves.CBC W/PLT COUNT & AUTO [id number] 04:52:00 Test Item Value Reference Range Comments WHITE BLOOD CELL COUNT (BEAKER) (test bqjg=872) 9.7 K/ L 4.0-10.0 RED BLOOD CELL COUNT (BEAKER) (test kvyg=775) 3.27 M/ L 4.20-5.80 HEMOGLOBIN (BEAKER) (test wake=307) 10.4 GM/DL 13.0-16.8 HEMATOCRIT (BEAKER) (test wggi=128) 31.5 % 40.0-50.0 MEAN CORPUSCULAR VOLUME (BEAKER) (test szwk=293) 96.3 fL 82.0-98.0 MEAN CORPUSCULAR HEMOGLOBIN (BEAKER) (test 31.7 pg 27.0-33.0 gmwn=866) MEAN CORPUSCULAR HEMOGLOBIN CONC (BEAKER) (test 32.9 GM/DL 32.0-36.0 mqng=899) RED CELL DISTRIBUTION WIDTH (BEAKER) (test 15.0 % 10.3-14.2 sskx=075) PLATELET COUNT (BEAKER) (test zhwv=594) 74 K/CU MM 150-430 MEAN PLATELET VOLUME (BEAKER) (test jrrd=903) 8.9 fL 6.5-10.5 NUCLEATED RED BLOOD CELLS (BEAKER) (test 0 /100 WBC 0-0 omsw=708) NEUTROPHILS RELATIVE PERCENT (BEAKER) (test 87 % sibi=466) LYMPHOCYTES RELATIVE PERCENT (BEAKER) (test 5 % kacr=994) MONOCYTES RELATIVE PERCENT (BEAKER) (test 8 % xpps=110) EOSINOPHILS RELATIVE PERCENT (BEAKER) (test 0 % zhme=767) BASOPHILS RELATIVE PERCENT (BEAKER) (test 1 % ubjq=260) NEUTROPHILS ABSOLUTE COUNT (BEAKER) (test 8.37 K/ L 1.80-8.00 mqbp=058) LYMPHOCYTES ABSOLUTE COUNT (BEAKER) (test 0.44 K/ L 1.48-4.50 krwm=626) MONOCYTES ABSOLUTE COUNT (BEAKER) (test eolp=763) 0.73 K/ L 0.00-1.30 EOSINOPHILS ABSOLUTE COUNT (BEAKER) (test 0.01 K/ L 0.00-0.50 otqh=421) BASOPHILS ABSOLUTE COUNT (BEAKER) (test muqw=887) 0.11 K/ L 0.00-0.20 0.00POCT-GLUCOSE [id number] 21:29:00 Test Item Value Reference Range Comments POC-GLUCOSE METER (BEAKER) 202 mg/dL 70-110 TESTED AT [address] (test wlaq=8439) [place] [address] URINALYSIS W/ [id number] 19:29:00 Test Item Value Reference Range Comments COLOR (BEAKER) (test rvgf=993) Light Yellow CLARITY (BEAKER) (test lino=925) Clear SPECIFIC GRAVITY UA (BEAKER) (test khut=714) 1.006 1.001-1.035 PH UA (BEAKER) (test ufrc=465) 6.5 5.0-8.0 PROTEIN UA (BEAKER) (test aulw=432) Negative Negative GLUCOSE UA (BEAKER) (test qufx=368) Negative Negative KETONES UA (BEAKER) (test xpyc=539) Negative Negative BILIRUBIN UA (BEAKER) (test zwro=799) Negative Negative BLOOD UA (BEAKER) (test oqom=966) Negative Negative NITRITE UA (BEAKER) (test qkgt=274) Negative Negative LEUKOCYTE ESTERASE UA (BEAKER) (test nndp=924) Negative Negative UROBILINOGEN UA (BEAKER) (test xqza=938) 0.2 mg/dL 0.2-1.0 RBC UA (BEAKER) (test npfq=484) 0 /HPF WBC UA (BEAKER) (test sfzf=603) < /HPF SOURCE(BEAKER) (test hasf=0442) Urine, Voided POCT-GLUCOSE [id number] 17:33:00 Test Item Value Reference Range Comments POC-GLUCOSE METER (BEAKER) 180 mg/dL 70-110 TESTED AT [address] (test wrvo=1101) [place] [address] BASIC METABOLIC [id number] 15:09:00 Test Item Value Reference Range Comments SODIUM (BEAKER) (test 137 meq/L 136-145 afix=439) POTASSIUM (BEAKER) (test 3.7 meq/L 3.5-5.1 Specimen slightly nxse=020) hemolyzed CHLORIDE (BEAKER) (test 93 meq/L 98-107 mtzw=073) CO2 (BEAKER) (test 34 meq/L 22-29 pihp=710) BLOOD UREA NITROGEN 45 mg/dL 7-21 (BEAKER) (test hpyc=350) CREATININE (BEAKER) (test 1.10 mg/dL 0.57-1.25 Specimen slightly uvrx=331) hemolyzed GLUCOSE RANDOM (BEAKER) 109 mg/dL 70-105 (test ujcy=687) CALCIUM (BEAKER) (test 9.1 mg/dL 8.4-10.2 aknw=788) EGFR (BEAKER) (test mL/min/1.73 sq m INSUFFICIENT CLINICAL DATA uakm=0987) TO CALCULATE ESTIMATED GFR. [id number] 15:07:00 Test Item Value Reference Range Comments MAGNESIUM (BEAKER) (test 2.3 mg/dL 1.6-2.6 Specimen slightly hemolyzed zooj=960) POCT-GLUCOSE [id number] 12:13:00 Test Item Value Reference Range Comments POC-GLUCOSE METER (BEAKER) 116 mg/dL 70-110 TESTED AT [facility] [address], [place] (test ngfs=7822) [facility] [address] BASIC METABOLIC [id number] 05:50:00 Test Item Value Reference Range Comments SODIUM (BEAKER) (test 134 meq/L 136-145 hecr=184) POTASSIUM (BEAKER) (test 3.8 meq/L 3.5-5.1 yfea=472) CHLORIDE (BEAKER) (test 95 meq/L 98-107 ztss=050) CO2 (BEAKER) (test 29 meq/L 22-29 pppr=129) BLOOD UREA NITROGEN 48 mg/dL 7-21 (BEAKER) (test cbam=226) CREATININE (BEAKER) (test 1.02 mg/dL 0.57-1.25 ozqk=450) GLUCOSE RANDOM (BEAKER) 99 mg/dL 70-105 (test lian=076) CALCIUM (BEAKER) (test 8.4 mg/dL 8.4-10.2 dlfn=994) EGFR (BEAKER) (test mL/min/1.73 sq m INSUFFICIENT CLINICAL DATA vnvs=2814) TO CALCULATE ESTIMATED GFR. LACTATE DEHYDROGENASE (LDH)2016-09-22 05:49:00 Test Item Value Reference Range Comments LACTATE DEHYDROGENASE (BEAKER) (test quhq=019) 220 U/L 125-220 HEPATIC FUNCTION [id number] 05:49:00 Test Item Value Reference Range Comments TOTAL PROTEIN (BEAKER) (test jubh=187) 6.8 gm/dL 6.0-8.3 ALBUMIN (BEAKER) (test jopy=9928) 3.7 g/dL 3.5-5.0 BILIRUBIN TOTAL (BEAKER) (test lhqm=099) 1.3 mg/dL 0.2-1.2 BILIRUBIN DIRECT (BEAKER) (test tlaf=701) 0.7 mg/dL 0.1-0.5 ALKALINE PHOSPHATASE (BEAKER) (test aivc=838) 83 U/L 40-150 AST (SGOT) (BEAKER) (test ftuz=758) 30 U/L 5-34 ALT (SGPT) (BEAKER) (test mlhe=435) 25 U/L 6-55 [id number] 05:32:00 Test Item Value Reference Range Comments D-DIMER QUANTITATIVE (BEAKER) (test dnyj=969) 5.86 MG/L FEU <0.50 Intended Use: The D-Dimer Assay can be used to aid in the diagnosis of Deep Vein Thrombosis (DVT) and Pulmonary Embolism Disease (PED).In patients with low pre-test probability, various studies concerning STA Liatest D-dimer test have reported that with a cutoff value of 0.50 MG/L FEU, the Negative Predictive Value (NPV) regarding the exclusion of thrombosis is within 95-100% range.[id number] 05:27:00 Test Item Value Reference Range Comments FIBRINOGEN LEVEL (BEAKER) (test mawx=926) 117 mg/dl 225-434 CBC W/PLT COUNT & AUTO [id number] 05:23:00 Test Item Value Reference Range Comments WHITE BLOOD CELL COUNT (BEAKER) (test kwck=770) 8.9 K/ L 4.0-10.0 RED BLOOD CELL COUNT (BEAKER) (test lymx=310) 3.34 M/ L 4.20-5.80 HEMOGLOBIN (BEAKER) (test gxzp=050) 10.7 GM/DL 13.0-16.8 HEMATOCRIT (BEAKER) (test fhqw=487) 32.1 % 40.0-50.0 MEAN CORPUSCULAR VOLUME (BEAKER) (test ngbh=713) 96.2 fL 82.0-98.0 MEAN CORPUSCULAR HEMOGLOBIN (BEAKER) (test 32.0 pg 27.0-33.0 ysbg=289) MEAN CORPUSCULAR HEMOGLOBIN CONC (BEAKER) (test 33.3 GM/DL 32.0-36.0 taic=725) RED CELL DISTRIBUTION WIDTH (BEAKER) (test 15.1 % 10.3-14.2 ngxc=459) PLATELET COUNT (BEAKER) (test zdpj=053) 85 K/CU MM 150-430 MEAN PLATELET VOLUME (BEAKER) (test chvu=081) 8.4 fL 6.5-10.5 NUCLEATED RED BLOOD CELLS (BEAKER) (test 0 /100 WBC 0-0 ybmx=470) NEUTROPHILS RELATIVE PERCENT (BEAKER) (test 86 % aume=647) LYMPHOCYTES RELATIVE PERCENT (BEAKER) (test 5 % qquy=115) MONOCYTES RELATIVE PERCENT (BEAKER) (test 8 % guxn=871) EOSINOPHILS RELATIVE PERCENT (BEAKER) (test 0 % pavq=593) BASOPHILS RELATIVE PERCENT (BEAKER) (test 1 % dkpf=523) NEUTROPHILS ABSOLUTE COUNT (BEAKER) (test 7.64 K/ L 1.80-8.00 jsjm=586) LYMPHOCYTES ABSOLUTE COUNT (BEAKER) (test 0.45 K/ L 1.48-4.50 rson=300) MONOCYTES ABSOLUTE COUNT (BEAKER) (test mtxu=511) 0.70 K/ L 0.00-1.30 EOSINOPHILS ABSOLUTE COUNT (BEAKER) (test 0.01 K/ L 0.00-0.50 mkiq=017) BASOPHILS ABSOLUTE COUNT (BEAKER) (test gqsi=061) 0.05 K/ L 0.00-0.20 [id number] 05:22:00 Test Item Value Reference Range Comments PROTIME (BEAKER) (test rqbk=040) 18.9 seconds 11.7-14.7 INR (BEAKER) (test juww=674) 1.6 <=5.9 PARTIAL THROMBOPLASTIN TIME (BEAKER) (test 29.2 seconds 22.5-36.0 tqye=680) RECOMMENDED COUMADIN/WARFARIN INR THERAPY RANGESSTANDARD DOSE: 2.0 - 3.0 Includes: PROPHYLAXIS forvenous thrombosis, systemic embolization; TREATMENT for venous thrombosis and/or pulmonary embolus.HIGH RISK: Target INR is 2.5-3.5 for patients with mechanical heart valves.THROMBIN [id number] 05:22:00 Test Item Value Reference Range Comments THROMBIN TIME (BEAKER) (test pjqk=469) 18.6 secs 13.8-20.0 PROTHROMBIN [id number] 05:21:00 Test Item Value Reference Range Comments PROTIME (BEAKER) (test nofn=408) 18.9 seconds 11.7-14.7 INR (BEAKER) (test jxzg=390) 1.6 <=5.9 RECOMMENDED COUMADIN/WARFARIN INR THERAPY RANGESSTANDARD DOSE: 2.0 - 3.0 Includes: PROPHYLAXIS forvenous thrombosis, systemic embolization; TREATMENT for venous thrombosis and/or pulmonary embolus.HIGH RISK: Target INR is 2.5-3.5 for patients with mechanical heart valves.POCT-GLUCOSE [id number] 05:20:00 Test Item Value Reference Range Comments POC-GLUCOSE METER (BEAKER) 97 mg/dL 70-110 TESTED AT [address] (test gfno=7958) [place] [address] POCT-GLUCOSE [id number] 21:11:00 Test Item Value Reference Range Comments POC-GLUCOSE METER (BEAKER) 180 mg/dL 70-110 TESTED AT [address] (test toka=0322) [place] [id number] POCT-GLUCOSE [id number] 17:58:00 Test Item Value Reference Range Comments POC-GLUCOSE METER (BEAKER) 121 mg/dL 70-110 TESTED AT [address] (test ugga=3359) [place] [address] POCT-GLUCOSE [id number] 13:45:00 Test Item Value Reference Range Comments POC-GLUCOSE METER (BEAKER) 111 mg/dL 70-110 TESTED AT [address] (test wxqn=3092) [facility] [address] BASIC METABOLIC [id number] 05:37:00 Test Item Value Reference Range Comments SODIUM (BEAKER) (test 137 meq/L 136-145 pxda=422) POTASSIUM (BEAKER) (test 3.7 meq/L 3.5-5.1 phmk=276) CHLORIDE (BEAKER) (test 97 meq/L 98-107 xkev=862) CO2 (BEAKER) (test 31 meq/L 22-29 iuyk=424) BLOOD UREA NITROGEN 49 mg/dL 7-21 (BEAKER) (test zoee=503) CREATININE (BEAKER) (test 0.92 mg/dL 0.57-1.25 fkka=730) GLUCOSE RANDOM (BEAKER) 105 mg/dL 70-105 (test ohxc=957) CALCIUM (BEAKER) (test 8.4 mg/dL 8.4-10.2 ucbp=716) EGFR (BEAKER) (test mL/min/1.73 sq m INSUFFICIENT CLINICAL DATA qqad=8307) TO CALCULATE ESTIMATED GFR. BUN AND [id number] 05:37:00 Test Item Value Reference Range Comments BLOOD UREA NITROGEN 49 mg/dL 7-21 (BEAKER) (test ftgh=689) CREATININE (BEAKER) (test 0.92 mg/dL 0.57-1.25 kdyq=369) EGFR (BEAKER) (test mL/min/1.73 sq m INSUFFICIENT CLINICAL DATA lrnz=1843) TO CALCULATE ESTIMATED GFR. [id number] 05:28:00 Test Item Value Reference Range Comments MAGNESIUM (BEAKER) (test mwep=560) 2.2 mg/dL 1.6-2.6 HEPATIC FUNCTION [id number] 05:28:00 Test Item Value Reference Range Comments TOTAL PROTEIN (BEAKER) (test dfkj=703) 6.6 gm/dL 6.0-8.3 ALBUMIN (BEAKER) (test azwi=2790) 3.5 g/dL 3.5-5.0 BILIRUBIN TOTAL (BEAKER) (test ksoe=142) 1.3 mg/dL 0.2-1.2 BILIRUBIN DIRECT (BEAKER) (test syie=844) 0.7 mg/dL 0.1-0.5 ALKALINE PHOSPHATASE (BEAKER) (test jcph=984) 82 U/L 40-150 AST (SGOT) (BEAKER) (test nupn=429) 30 U/L 5-34 ALT (SGPT) (BEAKER) (test ojum=665) 22 U/L 6-55 CBC W/PLT COUNT & AUTO [id number] 05:19:00 Test Item Value Reference Range Comments WHITE BLOOD CELL COUNT (BEAKER) (test qfer=344) 7.8 K/ L 4.0-10.0 RED BLOOD CELL COUNT (BEAKER) (test hqhj=252) 3.35 M/ L 4.20-5.80 HEMOGLOBIN (BEAKER) (test vqsg=225) 10.5 GM/DL 13.0-16.8 HEMATOCRIT (BEAKER) (test rxmj=556) 32.3 % 40.0-50.0 MEAN CORPUSCULAR VOLUME (BEAKER) (test yufz=911) 96.6 fL 82.0-98.0 MEAN CORPUSCULAR HEMOGLOBIN (BEAKER) (test 31.4 pg 27.0-33.0 cgsf=925) MEAN CORPUSCULAR HEMOGLOBIN CONC (BEAKER) (test 32.6 GM/DL 32.0-36.0 jpcl=694) RED CELL DISTRIBUTION WIDTH (BEAKER) (test 14.2 % 10.3-14.2 xfdp=052) PLATELET COUNT (BEAKER) (test opgg=312) 70 K/CU MM 150-430 MEAN PLATELET VOLUME (BEAKER) (test dels=622) 9.0 fL 6.5-10.5 NUCLEATED RED BLOOD CELLS (BEAKER) (test 0 /100 WBC 0-0 xyha=791) NEUTROPHILS RELATIVE PERCENT (BEAKER) (test 85 % uqkk=019) LYMPHOCYTES RELATIVE PERCENT (BEAKER) (test 6 % okky=414) MONOCYTES RELATIVE PERCENT (BEAKER) (test 9 % esdv=738) EOSINOPHILS RELATIVE PERCENT (BEAKER) (test 0 % ephy=990) BASOPHILS RELATIVE PERCENT (BEAKER) (test 0 % moem=620) NEUTROPHILS ABSOLUTE COUNT (BEAKER) (test 6.62 K/ L 1.80-8.00 vtzs=166) LYMPHOCYTES ABSOLUTE COUNT (BEAKER) (test 0.46 K/ L 1.48-4.50 zefk=074) MONOCYTES ABSOLUTE COUNT (BEAKER) (test buoz=730) 0.68 K/ L 0.00-1.30 EOSINOPHILS ABSOLUTE COUNT (BEAKER) (test 0.01 K/ L 0.00-0.50 yyps=148) BASOPHILS ABSOLUTE COUNT (BEAKER) (test gvhh=405) 0.03 K/ L 0.00-0.20 [id number] 05:11:00 Test Item Value Reference Range Comments FIBRINOGEN LEVEL (BEAKER) (test dkno=353) 111 mg/dl 225-434 PROTHROMBIN [id number] 05:05:00 Test Item Value Reference Range Comments PROTIME (BEAKER) (test favf=583) 18.7 seconds 11.7-14.7 INR (BEAKER) (test egif=948) 1.6 <=5.9 RECOMMENDED COUMADIN/WARFARIN INR THERAPY RANGESSTANDARD DOSE: 2.0 - 3.0 Includes: PROPHYLAXIS forvenous thrombosis, systemic embolization; TREATMENT for venous thrombosis and/or pulmonary embolus.HIGH RISK: Target INR is 2.5-3.5 for patients with mechanical heart valves.POCT-GLUCOSE [id number] 23:17:00 Test Item Value Reference Range Comments POC-GLUCOSE METER (BEAKER) 154 mg/dL 70-110 TESTED AT [address] (test ukmm=1986) [place] [address] POCT-GLUCOSE [id number] 18:07:00 Test Item Value Reference Range Comments POC-GLUCOSE METER (BEAKER) 172 mg/dL 70-110 TESTED AT [address] (test mjym=9828) [place] [address] POCT-GLUCOSE [id number] 13:53:00 Test Item Value Reference Range Comments POC-GLUCOSE METER (BEAKER) 106 mg/dL 70-110 TESTED AT [address] (test wlgz=5282) [place] [address] POCT-GLUCOSE [id number] 10:31:00 Test Item Value Reference Range Comments POC-GLUCOSE METER (BEAKER) 129 mg/dL 70-110 TESTED AT [address] (test iayh=4520) [place] [id number] CBC W/PLT COUNT & AUTO [id number] 07:13:00 Test Item Value Reference Range Comments WHITE BLOOD CELL COUNT (BEAKER) (test erxg=669) 7.3 K/ L 4.0-10.0 RED BLOOD CELL COUNT (BEAKER) (test wacl=569) 3.32 M/ L 4.20-5.80 HEMOGLOBIN (BEAKER) (test cwng=744) 10.8 GM/DL 13.0-16.8 HEMATOCRIT (BEAKER) (test jnrh=324) 32.3 % 40.0-50.0 MEAN CORPUSCULAR VOLUME (BEAKER) (test unnl=781) 97.4 fL 82.0-98.0 MEAN CORPUSCULAR HEMOGLOBIN (BEAKER) (test 32.5 pg 27.0-33.0 yxxv=160) MEAN CORPUSCULAR HEMOGLOBIN CONC (BEAKER) (test 33.4 GM/DL 32.0-36.0 jkhf=498) RED CELL DISTRIBUTION WIDTH (BEAKER) (test 14.7 % 10.3-14.2 ccqv=439) PLATELET COUNT (BEAKER) (test dpaf=844) 72 K/CU MM 150-430 MEAN PLATELET VOLUME (BEAKER) (test jwqg=112) 9.2 fL 6.5-10.5 NUCLEATED RED BLOOD CELLS (BEAKER) (test 0 /100 WBC 0-0 vnry=003) NEUTROPHILS RELATIVE PERCENT (BEAKER) (test 81 % ytvj=599) LYMPHOCYTES RELATIVE PERCENT (BEAKER) (test 8 % svqa=131) MONOCYTES RELATIVE PERCENT (BEAKER) (test 11 % bccj=042) EOSINOPHILS RELATIVE PERCENT (BEAKER) (test 0 % zxye=514) BASOPHILS RELATIVE PERCENT (BEAKER) (test 0 % rtpe=858) NEUTROPHILS ABSOLUTE COUNT (BEAKER) (test 5.91 K/ L 1.80-8.00 mewc=360) LYMPHOCYTES ABSOLUTE COUNT (BEAKER) (test 0.60 K/ L 1.48-4.50 krvi=517) MONOCYTES ABSOLUTE COUNT (BEAKER) (test opjo=742) 0.77 K/ L 0.00-1.30 EOSINOPHILS ABSOLUTE COUNT (BEAKER) (test 0.03 K/ L 0.00-0.50 uytr=452) BASOPHILS ABSOLUTE COUNT (BEAKER) (test onxs=490) 0.02 K/ L 0.00-0.20 0.00BASIC METABOLIC [id number] 07:10:00 Test Item Value Reference Range Comments SODIUM (BEAKER) (test 136 meq/L 136-145 dpnj=128) POTASSIUM (BEAKER) (test 3.7 meq/L 3.5-5.1 qdyy=284) CHLORIDE (BEAKER) (test 96 meq/L 98-107 vlug=342) CO2 (BEAKER) (test 30 meq/L 22-29 gnjr=139) BLOOD UREA NITROGEN 52 mg/dL 7-21 (BEAKER) (test lhyz=830) CREATININE (BEAKER) (test 0.91 mg/dL 0.57-1.25 xmjo=699) GLUCOSE RANDOM (BEAKER) 94 mg/dL 70-105 (test oxgh=089) CALCIUM (BEAKER) (test 8.6 mg/dL 8.4-10.2 zicy=981) EGFR (BEAKER) (test mL/min/1.73 sq m INSUFFICIENT CLINICAL DATA xozk=7246) TO CALCULATE ESTIMATED GFR. HEPATIC FUNCTION [id number] 07:09:00 Test Item Value Reference Range Comments TOTAL PROTEIN (BEAKER) (test ydmx=783) 6.8 gm/dL 6.0-8.3 ALBUMIN (BEAKER) (test jzol=0571) 3.5 g/dL 3.5-5.0 BILIRUBIN TOTAL (BEAKER) (test atnm=576) 1.3 mg/dL 0.2-1.2 BILIRUBIN DIRECT (BEAKER) (test lcou=337) 0.7 mg/dL 0.1-0.5 ALKALINE PHOSPHATASE (BEAKER) (test hffu=371) 84 U/L 40-150 AST (SGOT) (BEAKER) (test rlnv=442) 31 U/L 5-34 ALT (SGPT) (BEAKER) (test rojd=526) 23 U/L 6-55 [id number] 06:49:00 Test Item Value Reference Range Comments FIBRINOGEN LEVEL (BEAKER) (test yijl=044) 108 mg/dl 225-434 PROTHROMBIN TIME/[id number] 06:43:00 Test Item Value Reference Range Comments PROTIME (BEAKER) (test vpii=555) 18.5 seconds 11.7-14.7 INR (BEAKER) (test clvg=859) 1.5 <=5.9 RECOMMENDED COUMADIN/WARFARIN INR THERAPY RANGESSTANDARD DOSE: 2.0 - 3.0 Includes: PROPHYLAXIS forvenous thrombosis, systemic embolization; TREATMENT for venous thrombosis and/or pulmonary embolus.HIGH RISK: Target INR is 2.5-3.5 for patients with mechanical heart valves.POCT-GLUCOSE [id number] 22:20:00 Test Item Value Reference Range Comments POC-GLUCOSE METER (BEAKER) 188 mg/dL 70-110 TESTED AT [facility] [address] [place] (test mxgp=0447) [facility] [address] POCT-GLUCOSE [id number] 17:20:00 Test Item Value Reference Range Comments POC-GLUCOSE METER (BEAKER) 182 mg/dL 70-110 TESTED AT [facility] [address] [place] (test fgty=8221) [facility] [address] CBC W/PLT COUNT & AUTO [id number] 14:51:00 Test Item Value Reference Range Comments WHITE BLOOD CELL COUNT (BEAKER) (test pycp=320) 7.6 K/ L 4.0-10.0 RED BLOOD CELL COUNT (BEAKER) (test gbpm=266) 3.30 M/ L 4.20-5.80 HEMOGLOBIN (BEAKER) (test qgim=252) 10.4 GM/DL 13.0-16.8 HEMATOCRIT (BEAKER) (test ytbl=225) 31.9 % 40.0-50.0 MEAN CORPUSCULAR VOLUME (BEAKER) (test nrll=162) 96.9 fL 82.0-98.0 MEAN CORPUSCULAR HEMOGLOBIN (BEAKER) (test 31.5 pg 27.0-33.0 mzuc=522) MEAN CORPUSCULAR HEMOGLOBIN CONC (BEAKER) (test 32.5 GM/DL 32.0-36.0 emrs=651) RED CELL DISTRIBUTION WIDTH (BEAKER) (test 13.9 % 10.3-14.2 jdfn=392) PLATELET COUNT (BEAKER) (test szdh=677) 56 K/CU MM 150-430 MEAN PLATELET VOLUME (BEAKER) (test agsa=694) 9.4 fL 6.5-10.5 NUCLEATED RED BLOOD CELLS (BEAKER) (test 0 /100 WBC 0-0 yxpk=776) NEUTROPHILS RELATIVE PERCENT (BEAKER) (test 83 % uwvv=452) LYMPHOCYTES RELATIVE PERCENT (BEAKER) (test 7 % fqtd=054) MONOCYTES RELATIVE PERCENT (BEAKER) (test 10 % bzxu=249) EOSINOPHILS RELATIVE PERCENT (BEAKER) (test 0 % kvxq=662) BASOPHILS RELATIVE PERCENT (BEAKER) (test 0 % xuel=726) NEUTROPHILS ABSOLUTE COUNT (BEAKER) (test 6.31 K/ L 1.80-8.00 vjpx=785) LYMPHOCYTES ABSOLUTE COUNT (BEAKER) (test 0.50 K/ L 1.48-4.50 kmcb=614) MONOCYTES ABSOLUTE COUNT (BEAKER) (test cxhg=777) 0.77 K/ L 0.00-1.30 EOSINOPHILS ABSOLUTE COUNT (BEAKER) (test 0.01 K/ L 0.00-0.50 vghu=564) BASOPHILS ABSOLUTE COUNT (BEAKER) (test fydi=763) 0.00 K/ L 0.00-0.20 0.00(MANUAL DIFFERENTIAL)2016-09-19 14:51:00 Test Item Value Reference Range Comments TOTAL COUNTED (BEAKER) (test hzkm=8806) WBC MORPHOLOGY (BEAKER) (test mrfp=871) Normal PLT MORPHOLOGY (BEAKER) (test kskw=305) Normal RBC MORPHOLOGY (BEAKER) (test cwck=736) Normal POCT-GLUCOSE [id number] 12:28:00 Test Item Value Reference Range Comments POC-GLUCOSE METER (BEAKER) 132 mg/dL 70-110 TESTED AT [address] (test cszr=0249) [place] [id number] POCT-GLUCOSE [id number] 08:32:00 Test Item Value Reference Range Comments POC-GLUCOSE METER (BEAKER) 91 mg/dL 70-110 TESTED AT [address] (test opic=1467) [place] [address] [id number] 07:04:00 Test Item Value Reference Range Comments FIBRINOGEN LEVEL (BEAKER) (test vxrl=294) 113 mg/dl 225-434 BASIC METABOLIC [id number] 05:26:00 Test Item Value Reference Range Comments SODIUM (BEAKER) (test 137 meq/L 136-145 yfll=567) POTASSIUM (BEAKER) (test 3.4 meq/L 3.5-5.1 wlrc=473) CHLORIDE (BEAKER) (test 96 meq/L 98-107 adas=506) CO2 (BEAKER) (test 31 meq/L 22-29 eshf=593) BLOOD UREA NITROGEN 54 mg/dL 7-21 (BEAKER) (test tsqa=341) CREATININE (BEAKER) (test 0.98 mg/dL 0.57-1.25 ukjn=963) GLUCOSE RANDOM (BEAKER) 105 mg/dL 70-105 (test sfqz=896) CALCIUM (BEAKER) (test 8.6 mg/dL 8.4-10.2 ljpk=906) EGFR (BEAKER) (test mL/min/1.73 sq m INSUFFICIENT CLINICAL DATA iofn=1196) TO CALCULATE ESTIMATED GFR. PROTHROMBIN [id number] 05:23:00 Test Item Value Reference Range Comments PROTIME (BEAKER) (test idix=094) 19.5 seconds 11.7-14.7 INR (BEAKER) (test qfjp=329) 1.7 <=5.9 RECOMMENDED COUMADIN/WARFARIN INR THERAPY RANGESSTANDARD DOSE: 2.0 - 3.0 Includes: PROPHYLAXIS forvenous thrombosis, systemic embolization; TREATMENT for venous thrombosis and/or pulmonary embolus.HIGH RISK: Target INR is 2.5-3.5 for patients with mechanical heart valves.HEPATIC FUNCTION [id number] 05:22 :00 Test Item Value Reference Range Comments TOTAL PROTEIN (BEAKER) (test yucu=773) 6.8 gm/dL 6.0-8.3 ALBUMIN (BEAKER) (test dktv=6045) 3.6 g/dL 3.5-5.0 BILIRUBIN TOTAL (BEAKER) (test flmr=901) 1.1 mg/dL 0.2-1.2 BILIRUBIN DIRECT (BEAKER) (test sido=680) 0.7 mg/dL 0.1-0.5 ALKALINE PHOSPHATASE (BEAKER) (test sunu=868) 87 U/L 40-150 AST (SGOT) (BEAKER) (test eizc=944) 29 U/L 5-34 ALT (SGPT) (BEAKER) (test xbai=726) 21 U/L 6-55 POCT-GLUCOSE [id number] 22:46:00 Test Item Value Reference Range Comments POC-GLUCOSE METER (BEAKER) 130 mg/dL 70-110 TESTED AT [facility] [address], [place] (test eqab=6878) [facility] [address] POCT-GLUCOSE [id number] 16:56:00 Test Item Value Reference Range Comments POC-GLUCOSE METER (BEAKER) 164 mg/dL 70-110 TESTED AT [place] [id number], [place] (test xsib=3077) [facility] [address] RESPIRATORY PANEL [id number] 15:39:00 Test Item Value Reference Range Comments HUMAN METAPNEUMOVIRUS (BEAKER) (test Not detected Not detected, Inconclusive ehxc=7072) RHINOVIRUS (BEAKER) (test dyns=7936) Not detected Not detected, Inconclusive INFLUENZA A (BEAKER) (test Not detected Not detected, Inconclusive vyjg=0225) INFLUENZA A SUBTYPE H1 (BEAKER) Not detected Not detected, Inconclusive (test nwvo=5480) INFLUENZA A SUBTYPE H3 (BEAKER) Not detected Not detected, Inconclusive (test jodn=8817) INFLUENZA A SUBTYPE H1-2009 (BEAKER) Not detected Not detected, Inconclusive (test mpxk=0384) INFLUENZA B (BEAKER) (test Not detected Not detected, Inconclusive xrzz=6747) RESPIRATORY SYNCYTIAL VIRUS (BEAKER) Not detected Not detected, Inconclusive (test omgk=9967) PARAINFLUENZA VIRUS 1 (BEAKER) (test Not detected Not detected, Inconclusive ibpn=9369) PARAINFLUENZA VIRUS 2 (BEAKER) (test Not detected Not detected, Inconclusive swzq=2206) PARAINFLUENZA VIRUS 3 (BEAKER) (test Not detected Not detected, Inconclusive ldjg=7734) PARAINFLUENZA VIRUS 4 (BEAKER) (test Not detected Not detected, Inconclusive zdfy=7883) ADENOVIRUS (BEAKER) (test gimc=4170) Not detected Not detected, Inconclusive CORONAVIRUS 229E (BEAKER) (test Not detected Not detected, Inconclusive txfr=7962) CORONAVIRUS HKU1 (BEAKER) (test Not detected Not detected, Inconclusive azpr=8369) CORONAVIRUS NL63 (BEAKER) (test Not detected Not detected, Inconclusive puis=1318) CORONAVIRUS OC43 (BEAKER) (test Not detected Not detected, Inconclusive jifg=5789) BORDETELLA PERTUSSIS (BEAKER) (test Not detected Not detected, Inconclusive mbxx=3697) CHLAMYDOPHILA PNEUMONIAE (BEAKER) Not detected Not detected, Inconclusive (test psoe=7201) MYCOPLASMA PNEUMONIAE (BEAKER) (test Not detected Not detected, Inconclusive ncjr=3163) POCT-GLUCOSE [id number] 12:22:00 Test Item Value Reference Range Comments POC-GLUCOSE METER (BEAKER) 113 mg/dL 70-110 TESTED AT [facility] [address], [place] (test rpul=7184) [facility] [address] POCT-GLUCOSE [id number] 08:24:00 Test Item Value Reference Range Comments POC-GLUCOSE METER (BEAKER) 96 mg/dL 70-110 TESTED AT [facility] [address], [place] (test wzfk=6192) [facility] [address] BASIC METABOLIC [id number] 07:27:00 Test Item Value Reference Range Comments SODIUM (BEAKER) (test 140 meq/L 136-145 jogg=907) POTASSIUM (BEAKER) (test 3.4 meq/L 3.5-5.1 kswh=764) CHLORIDE (BEAKER) (test 95 meq/L 98-107 fufg=823) CO2 (BEAKER) (test 34 meq/L 22-29 nnlq=674) BLOOD UREA NITROGEN 54 mg/dL 7-21 (BEAKER) (test dyhc=174) CREATININE (BEAKER) (test 1.23 mg/dL 0.57-1.25 pwtm=307) GLUCOSE RANDOM (BEAKER) 98 mg/dL 70-105 (test vzwy=330) CALCIUM (BEAKER) (test 9.3 mg/dL 8.4-10.2 rwad=343) EGFR (BEAKER) (test mL/min/1.73 sq m INSUFFICIENT CLINICAL DATA mnak=7725) TO CALCULATE ESTIMATED GFR. BASIC METABOLIC [id number] 07:21:00 Test Item Value Reference Range Comments SODIUM (BEAKER) (test 139 meq/L 136-145 frkw=950) POTASSIUM (BEAKER) (test 3.4 meq/L 3.5-5.1 Specimen slightly anof=768) hemolyzed CHLORIDE (BEAKER) (test 95 meq/L 98-107 iyit=776) CO2 (BEAKER) (test 35 meq/L 22-29 evif=464) BLOOD UREA NITROGEN 55 mg/dL 7-21 (BEAKER) (test atak=061) CREATININE (BEAKER) (test 1.17 mg/dL 0.57-1.25 Specimen slightly yxux=697) hemolyzed GLUCOSE RANDOM (BEAKER) 97 mg/dL 70-105 (test zvzf=080) CALCIUM (BEAKER) (test 9.2 mg/dL 8.4-10.2 bqmx=046) EGFR (BEAKER) (test mL/min/1.73 sq m INSUFFICIENT CLINICAL DATA xbnx=0437) TO CALCULATE ESTIMATED GFR. HEPATIC FUNCTION [id number] 07:15:00 Test Item Value Reference Range Comments TOTAL PROTEIN (BEAKER) (test 8.0 gm/dL 6.0-8.3 Specimen slightly hemolyzed tset=191) ALBUMIN (BEAKER) (test 4.2 g/dL 3.5-5.0 Specimen slightly hemolyzed edim=5016) BILIRUBIN TOTAL (BEAKER) (test 1.3 mg/dL 0.2-1.2 Specimen slightly hemolyzed jhda=308) BILIRUBIN DIRECT (BEAKER) (test 0.7 mg/dL 0.1-0.5 Specimen slightly hemolyzed deyy=569) ALKALINE PHOSPHATASE (BEAKER) 99 U/L 40-150 (test vbaw=644) AST (SGOT) (BEAKER) (test 35 U/L 5-34 Specimen slightly hemolyzed juqz=596) ALT (SGPT) (BEAKER) (test 24 U/L 6-55 Specimen slightly hemolyzed dzoy=514) [id number] 07:08:00 Test Item Value Reference Range Comments FIBRINOGEN LEVEL (BEAKER) (test weog=124) 124 mg/dl 225-434 CBC W/PLT COUNT & AUTO [id number] 07:06:00 Test Item Value Reference Range Comments WHITE BLOOD CELL COUNT (BEAKER) (test ictm=517) 8.4 K/ L 4.0-10.0 RED BLOOD CELL COUNT (BEAKER) (test ldfd=789) 3.60 M/ L 4.20-5.80 HEMOGLOBIN (BEAKER) (test djaf=086) 11.5 GM/DL 13.0-16.8 HEMATOCRIT (BEAKER) (test tkhi=374) 35.8 % 40.0-50.0 MEAN CORPUSCULAR VOLUME (BEAKER) (test nqpu=169) 99.4 fL 82.0-98.0 MEAN CORPUSCULAR HEMOGLOBIN (BEAKER) (test 32.0 pg 27.0-33.0 cjpt=646) MEAN CORPUSCULAR HEMOGLOBIN CONC (BEAKER) (test 32.2 GM/DL 32.0-36.0 szli=159) RED CELL DISTRIBUTION WIDTH (BEAKER) (test 14.5 % 10.3-14.2 jclx=139) PLATELET COUNT (BEAKER) (test hzbm=794) 57 K/CU MM 150-430 MEAN PLATELET VOLUME (BEAKER) (test ypdq=755) 10.0 fL 6.5-10.5 NUCLEATED RED BLOOD CELLS (BEAKER) (test 0 /100 WBC 0-0 vzyw=951) NEUTROPHILS RELATIVE PERCENT (BEAKER) (test 87 % vguk=026) LYMPHOCYTES RELATIVE PERCENT (BEAKER) (test 4 % kfqy=129) MONOCYTES RELATIVE PERCENT (BEAKER) (test 9 % fxyb=673) EOSINOPHILS RELATIVE PERCENT (BEAKER) (test 0 % ryky=734) BASOPHILS RELATIVE PERCENT (BEAKER) (test 0 % zjyz=572) NEUTROPHILS ABSOLUTE COUNT (BEAKER) (test 7.25 K/ L 1.80-8.00 gncl=581) LYMPHOCYTES ABSOLUTE COUNT (BEAKER) (test 0.34 K/ L 1.48-4.50 eqfz=555) MONOCYTES ABSOLUTE COUNT (BEAKER) (test fbye=727) 0.77 K/ L 0.00-1.30 EOSINOPHILS ABSOLUTE COUNT (BEAKER) (test 0.01 K/ L 0.00-0.50 ezgt=953) BASOPHILS ABSOLUTE COUNT (BEAKER) (test ridu=498) 0.00 K/ L 0.00-0.20 PROTHROMBIN [id number] 07:03:00 Test Item Value Reference Range Comments PROTIME (BEAKER) (test otuc=995) 18.6 seconds 11.7-14.7 INR (BEAKER) (test aabj=793) 1.6 <=5.9 RECOMMENDED COUMADIN/WARFARIN INR THERAPY RANGESSTANDARD DOSE: 2.0 - 3.0 Includes: PROPHYLAXIS forvenous thrombosis, systemic embolization; TREATMENT for venous thrombosis and/or pulmonary embolus.HIGH RISK: Target INR is 2.5-3.5 for patients with mechanical heart valves.POCT-GLUCOSE [id number] 21:23:00 Test Item Value Reference Range Comments POC-GLUCOSE METER (BEAKER) 197 mg/dL 70-110 TESTED AT [address] (test qsci=6689) [facility] [address] POCT-GLUCOSE [id number] 18:30:00 Test Item Value Reference Range Comments POC-GLUCOSE METER (BEAKER) 147 mg/dL 70-110 TESTED AT [address] (test zbxm=5764) [facility] [address] POCT-GLUCOSE [id number] 13:46:00 Test Item Value Reference Range Comments POC-GLUCOSE METER (BEAKER) 113 mg/dL 70-110 TESTED AT [facility] [address], [place] (test exfx=7820) [facility] [address] POCT-GLUCOSE [id number] 07:49:00 Test Item Value Reference Range Comments POC-GLUCOSE METER (BEAKER) 134 mg/dL 70-110 TESTED AT [facility] [address] [place] (test rjdi=5654) [facility] [address] PERIPHERAL BLOOD SMEAR - HOLD [id number] 06:35:00 Test Item Value Reference Range Comments PERIPHERAL SMEAR SAVE (BEAKER) (test tvyc=1193) saved BASIC METABOLIC [id number] 05:44:00 Test Item Value Reference Range Comments SODIUM (BEAKER) (test 141 meq/L 136-145 ghiv=425) POTASSIUM (BEAKER) (test 3.6 meq/L 3.5-5.1 ctro=804) CHLORIDE (BEAKER) (test 99 meq/L 98-107 excq=901) CO2 (BEAKER) (test 31 meq/L 22-29 cupr=528) BLOOD UREA NITROGEN 59 mg/dL 7-21 (BEAKER) (test json=573) CREATININE (BEAKER) (test 1.09 mg/dL 0.57-1.25 lysf=322) GLUCOSE RANDOM (BEAKER) 133 mg/dL 70-105 (test yene=856) CALCIUM (BEAKER) (test 8.6 mg/dL 8.4-10.2 dmyo=032) EGFR (BEAKER) (test mL/min/1.73 sq m INSUFFICIENT CLINICAL DATA fscy=7799) TO CALCULATE ESTIMATED GFR. CBC W/PLT COUNT & AUTO [id number] 05:41:00 Test Item Value Reference Range Comments WHITE BLOOD CELL COUNT (BEAKER) (test dyvz=131) 5.8 K/ L 4.0-10.0 RED BLOOD CELL COUNT (BEAKER) (test zjeb=962) 3.13 M/ L 4.20-5.80 HEMOGLOBIN (BEAKER) (test dmav=786) 9.8 GM/DL 13.0-16.8 HEMATOCRIT (BEAKER) (test affe=482) 30.7 % 40.0-50.0 MEAN CORPUSCULAR VOLUME (BEAKER) (test avpz=224) 98.4 fL 82.0-98.0 MEAN CORPUSCULAR HEMOGLOBIN (BEAKER) (test 31.3 pg 27.0-33.0 rmjx=694) MEAN CORPUSCULAR HEMOGLOBIN CONC (BEAKER) (test 31.9 GM/DL 32.0-36.0 fdnz=484) RED CELL DISTRIBUTION WIDTH (BEAKER) (test 13.7 % 10.3-14.2 gzlz=274) PLATELET COUNT (BEAKER) (test hegy=286) 52 K/CU MM 150-430 MEAN PLATELET VOLUME (BEAKER) (test whio=774) 9.1 fL 6.5-10.5 NUCLEATED RED BLOOD CELLS (BEAKER) (test 0 /100 WBC 0-0 uhng=741) NEUTROPHILS RELATIVE PERCENT (BEAKER) (test 92 % tduz=593) LYMPHOCYTES RELATIVE PERCENT (BEAKER) (test 3 % tlhm=572) MONOCYTES RELATIVE PERCENT (BEAKER) (test 4 % beyh=136) EOSINOPHILS RELATIVE PERCENT (BEAKER) (test 0 % hbem=984) BASOPHILS RELATIVE PERCENT (BEAKER) (test 0 % iudv=445) NEUTROPHILS ABSOLUTE COUNT (BEAKER) (test 5.33 K/ L 1.80-8.00 rjvj=270) LYMPHOCYTES ABSOLUTE COUNT (BEAKER) (test 0.19 K/ L 1.48-4.50 perc=502) MONOCYTES ABSOLUTE COUNT (BEAKER) (test xywy=940) 0.24 K/ L 0.00-1.30 EOSINOPHILS ABSOLUTE COUNT (BEAKER) (test 0.01 K/ L 0.00-0.50 kdjw=944) BASOPHILS ABSOLUTE COUNT (BEAKER) (test wcvm=886) 0.03 K/ L 0.00-0.20 [id number] 05:37:00 Test Item Value Reference Range Comments FIBRINOGEN LEVEL (BEAKER) (test pdgu=553) 117 mg/dl 225-434 HEPATIC FUNCTION [id number] 05:34:00 Test Item Value Reference Range Comments TOTAL PROTEIN (BEAKER) (test zwlm=171) 6.9 gm/dL 6.0-8.3 ALBUMIN (BEAKER) (test zcqp=2832) 3.6 g/dL 3.5-5.0 BILIRUBIN TOTAL (BEAKER) (test ifxm=111) 0.9 mg/dL 0.2-1.2 BILIRUBIN DIRECT (BEAKER) (test ftfc=120) 0.6 mg/dL 0.1-0.5 ALKALINE PHOSPHATASE (BEAKER) (test hwkt=193) 86 U/L 40-150 AST (SGOT) (BEAKER) (test ydyr=313) 30 U/L 5-34 ALT (SGPT) (BEAKER) (test gbdk=243) 20 U/L 6-55 PROTHROMBIN [id number] 05:32:00 Test Item Value Reference Range Comments PROTIME (BEAKER) (test euxe=642) 19.3 seconds 11.7-14.7 INR (BEAKER) (test nzar=339) 1.6 <=5.9 RECOMMENDED COUMADIN/WARFARIN INR THERAPY RANGESSTANDARD DOSE: 2.0 - 3.0 Includes: PROPHYLAXIS forvenous thrombosis, systemic embolization; TREATMENT for venous thrombosis and/or pulmonary embolus.HIGH RISK: Target INR is 2.5-3.5 for patients with mechanical heart valves.POCT-GLUCOSE [id number] 23:16:00 Test Item Value Reference Range Comments POC-GLUCOSE METER (BEAKER) 221 mg/dL 70-110 TESTED AT [address] (test ktec=7999) [place] [address] POCT-GLUCOSE [id number] 16:13:00 Test Item Value Reference Range Comments POC-GLUCOSE METER (BEAKER) 117 mg/dL 70-110 TESTED AT [address] (test odni=7904) [place] [address] POCT-GLUCOSE [id number] 12:52:00 Test Item Value Reference Range Comments POC-GLUCOSE METER (BEAKER) 91 mg/dL 70-110 TESTED AT [address] (test whsa=3833) [place] [address] CBC W/PLT COUNT & AUTO [id number] 06:44:00 Test Item Value Reference Range Comments WHITE BLOOD CELL COUNT (BEAKER) (test yrji=185) 6.9 K/ L 4.0-10.0 RED BLOOD CELL COUNT (BEAKER) (test zidd=552) 3.13 M/ L 4.20-5.80 HEMOGLOBIN (BEAKER) (test uqik=016) 9.9 GM/DL 13.0-16.8 HEMATOCRIT (BEAKER) (test hlbf=574) 30.8 % 40.0-50.0 MEAN CORPUSCULAR VOLUME (BEAKER) (test tegp=772) 98.6 fL 82.0-98.0 MEAN CORPUSCULAR HEMOGLOBIN (BEAKER) (test 31.7 pg 27.0-33.0 mewm=659) MEAN CORPUSCULAR HEMOGLOBIN CONC (BEAKER) (test 32.1 GM/DL 32.0-36.0 prfu=449) RED CELL DISTRIBUTION WIDTH (BEAKER) (test 13.8 % 10.3-14.2 mtcj=525) PLATELET COUNT (BEAKER) (test hriw=814) 43 K/CU MM 150-430 MEAN PLATELET VOLUME (BEAKER) (test ujkg=702) 9.5 fL 6.5-10.5 NUCLEATED RED BLOOD CELLS (BEAKER) (test 0 /100 WBC 0-0 ohez=842) NEUTROPHILS RELATIVE PERCENT (BEAKER) (test 84 % tvaj=899) LYMPHOCYTES RELATIVE PERCENT (BEAKER) (test 5 % vwly=586) MONOCYTES RELATIVE PERCENT (BEAKER) (test 11 % sval=703) EOSINOPHILS RELATIVE PERCENT (BEAKER) (test 0 % jazs=246) BASOPHILS RELATIVE PERCENT (BEAKER) (test 0 % lkav=763) NEUTROPHILS ABSOLUTE COUNT (BEAKER) (test 5.73 K/ L 1.80-8.00 tdzd=020) LYMPHOCYTES ABSOLUTE COUNT (BEAKER) (test 0.34 K/ L 1.48-4.50 bxuc=193) MONOCYTES ABSOLUTE COUNT (BEAKER) (test nied=632) 0.77 K/ L 0.00-1.30 EOSINOPHILS ABSOLUTE COUNT (BEAKER) (test 0.01 K/ L 0.00-0.50 zlxr=985) BASOPHILS ABSOLUTE COUNT (BEAKER) (test yaah=563) 0.00 K/ L 0.00-0.20 0.00BASI METABOLIC [id number] 06:21:00 Test Item Value Reference Range Comments SODIUM (BEAKER) (test 141 meq/L 136-145 ityv=787) POTASSIUM (BEAKER) (test 3.6 meq/L 3.5-5.1 bxfr=140) CHLORIDE (BEAKER) (test 98 meq/L 98-107 cnbg=095) CO2 (BEAKER) (test 31 meq/L 22-29 ealf=524) BLOOD UREA NITROGEN 60 mg/dL 7-21 (BEAKER) (test hgdc=778) CREATININE (BEAKER) (test 1.06 mg/dL 0.57-1.25 dtff=547) GLUCOSE RANDOM (BEAKER) 88 mg/dL 70-105 (test show=845) CALCIUM (BEAKER) (test 9.3 mg/dL 8.4-10.2 dmoj=819) EGFR (BEAKER) (test mL/min/1.73 sq m INSUFFICIENT CLINICAL DATA dbgq=5166) TO CALCULATE ESTIMATED GFR. [id number] 06:20:00 Test Item Value Reference Range Comments FIBRINOGEN LEVEL (BEAKER) (test spzs=465) 128 mg/dl 225-434 HEPATIC FUNCTION [id number] 06:18:00 Test Item Value Reference Range Comments TOTAL PROTEIN (BEAKER) (test zwgh=011) 7.7 gm/dL 6.0-8.3 ALBUMIN (BEAKER) (test ornm=9737) 4.1 g/dL 3.5-5.0 BILIRUBIN TOTAL (BEAKER) (test ouum=728) 1.0 mg/dL 0.2-1.2 BILIRUBIN DIRECT (BEAKER) (test sobv=282) 0.6 mg/dL 0.1-0.5 ALKALINE PHOSPHATASE (BEAKER) (test ksbd=108) 89 U/L 40-150 AST (SGOT) (BEAKER) (test nxfe=581) 30 U/L 5-34 ALT (SGPT) (BEAKER) (test yyqd=919) 17 U/L 6-55 PROTHROMBIN [id number] 06:15:00 Test Item Value Reference Range Comments PROTIME (BEAKER) (test dnuj=021) 19.5 seconds 11.7-14.7 INR (BEAKER) (test tkxs=723) 1.7 <=5.9 RECOMMENDED COUMADIN/WARFARIN INR THERAPY RANGESSTANDARD DOSE: 2.0 - 3.0 Includes: PROPHYLAXIS forvenous thrombosis, systemic embolization; TREATMENT for venous thrombosis and/or pulmonary embolus.HIGH RISK: Target INR is 2.5-3.5 for patients with mechanical heart valves.POCT-GLUCOSE [id number] 21:14:00 Test Item Value Reference Range Comments POC-GLUCOSE METER (BEAKER) 133 mg/dL 70-110 TESTED AT [facility] [address] [place] (test lrin=5412) [facility] [address] POCT-GLUCOSE [id number] 17:48:00 Test Item Value Reference Range Comments POC-GLUCOSE METER (BEAKER) 236 mg/dL 70-110 TESTED AT [address] (test ggxi=5647) [facility] [address] POCT-GLUCOSE [id number] 08:18:00 Test Item Value Reference Range Comments POC-GLUCOSE METER (BEAKER) 86 mg/dL 70-110 TESTED AT [address] (test qyhv=1820) [facility] [address] BASIC METABOLIC [id number] 05:37:00 Test Item Value Reference Range Comments SODIUM (BEAKER) (test 140 meq/L 136-145 bark=415) POTASSIUM (BEAKER) (test 3.8 meq/L 3.5-5.1 drou=749) CHLORIDE (BEAKER) (test 96 meq/L 98-107 eqtn=794) CO2 (BEAKER) (test 32 meq/L 22-29 goyq=059) BLOOD UREA NITROGEN 64 mg/dL 7-21 (BEAKER) (test ynnd=708) CREATININE (BEAKER) (test 1.25 mg/dL 0.57-1.25 kmoi=473) GLUCOSE RANDOM (BEAKER) 129 mg/dL 70-105 (test mcpi=878) CALCIUM (BEAKER) (test 9.4 mg/dL 8.4-10.2 wsnk=176) EGFR (BEAKER) (test mL/min/1.73 sq m INSUFFICIENT CLINICAL DATA fxma=6927) TO CALCULATE ESTIMATED GFR. HEPATIC FUNCTION [id number] 05:30:00 Test Item Value Reference Range Comments TOTAL PROTEIN (BEAKER) (test ezqj=874) 8.2 gm/dL 6.0-8.3 ALBUMIN (BEAKER) (test qxcf=7045) 4.3 g/dL 3.5-5.0 BILIRUBIN TOTAL (BEAKER) (test dqxg=262) 1.0 mg/dL 0.2-1.2 BILIRUBIN DIRECT (BEAKER) (test nnqt=803) 0.6 mg/dL 0.1-0.5 ALKALINE PHOSPHATASE (BEAKER) (test bvan=057) 92 U/L 40-150 AST (SGOT) (BEAKER) (test gfsb=423) 27 U/L 5-34 ALT (SGPT) (BEAKER) (test brfg=010) 18 U/L 6-55 [id number] 05:29:00 Test Item Value Reference Range Comments PHOSPHORUS (BEAKER) (test achy=476) 4.6 mg/dL 2.3-4.7 [id number] 05:29:00 Test Item Value Reference Range Comments MAGNESIUM (BEAKER) (test myag=607) 2.3 mg/dL 1.6-2.6 [id number] 05:00:00 Test Item Value Reference Range Comments FIBRINOGEN LEVEL (BEAKER) (test fbew=311) 139 mg/dl 225-434 [id number] 04:55:00 Test Item Value Reference Range Comments PARTIAL THROMBOPLASTIN TIME (BEAKER) (test 29.7 seconds 22.5-36.0 wfme=403) PROTHROMBIN [id number] 04:54:00 Test Item Value Reference Range Comments PROTIME (BEAKER) (test ulfn=556) 18.8 seconds 11.7-14.7 INR (BEAKER) (test amxz=908) 1.6 <=5.9 RECOMMENDED COUMADIN/WARFARIN INR THERAPY RANGESSTANDARD DOSE: 2.0 - 3.0 Includes: PROPHYLAXIS forvenous thrombosis, systemic embolization; TREATMENT for venous thrombosis and/or pulmonary embolus.HIGH RISK: Target INR is 2.5-3.5 for patients with mechanical heart valves.CBC W/PLT COUNT & AUTO [id number] 04:52:00 Test Item Value Reference Range Comments WHITE BLOOD CELL COUNT (BEAKER) (test bztk=495) 6.9 K/ L 4.0-10.0 RED BLOOD CELL COUNT (BEAKER) (test oryk=186) 3.13 M/ L 4.20-5.80 HEMOGLOBIN (BEAKER) (test gltn=025) 10.1 GM/DL 13.0-16.8 HEMATOCRIT (BEAKER) (test cgah=800) 30.7 % 40.0-50.0 MEAN CORPUSCULAR VOLUME (BEAKER) (test levp=211) 98.1 fL 82.0-98.0 MEAN CORPUSCULAR HEMOGLOBIN (BEAKER) (test 32.2 pg 27.0-33.0 auoh=274) MEAN CORPUSCULAR HEMOGLOBIN CONC (BEAKER) (test 32.8 GM/DL 32.0-36.0 acyk=139) RED CELL DISTRIBUTION WIDTH (BEAKER) (test 13.8 % 10.3-14.2 nglb=251) PLATELET COUNT (BEAKER) (test sjwk=819) 67 K/CU MM 150-430 MEAN PLATELET VOLUME (BEAKER) (test cklc=439) 7.6 fL 6.5-10.5 NUCLEATED RED BLOOD CELLS (BEAKER) (test 0 /100 WBC 0-0 ctik=942) NEUTROPHILS RELATIVE PERCENT (BEAKER) (test 87 % ktzh=228) LYMPHOCYTES RELATIVE PERCENT (BEAKER) (test 5 % yhoa=184) MONOCYTES RELATIVE PERCENT (BEAKER) (test 8 % zxqf=682) EOSINOPHILS RELATIVE PERCENT (BEAKER) (test 0 % bbtz=091) BASOPHILS RELATIVE PERCENT (BEAKER) (test 0 % abel=830) NEUTROPHILS ABSOLUTE COUNT (BEAKER) (test 6.02 K/ L 1.80-8.00 fxvt=618) LYMPHOCYTES ABSOLUTE COUNT (BEAKER) (test 0.32 K/ L 1.48-4.50 lnap=242) MONOCYTES ABSOLUTE COUNT (BEAKER) (test psag=236) 0.56 K/ L 0.00-1.30 EOSINOPHILS ABSOLUTE COUNT (BEAKER) (test 0.01 K/ L 0.00-0.50 mhaa=501) BASOPHILS ABSOLUTE COUNT (BEAKER) (test lhlw=597) 0.00 K/ L 0.00-0.20 0.00POCT-GLUCOSE [id number] 21:17:00 Test Item Value Reference Range Comments POC-GLUCOSE METER (BEAKER) 191 mg/dL 70-110 TESTED AT [address] (test rhkm=5166) [facility] [address] POCT-GLUCOSE [id number] 17:29:00 Test Item Value Reference Range Comments POC-GLUCOSE METER (BEAKER) 161 mg/dL 70-110 TESTED AT [address] (test anyb=0971) [facility] [address] POCT-GLUCOSE [id number] 11:48:00 Test Item Value Reference Range Comments POC-GLUCOSE METER (BEAKER) 103 mg/dL 70-110 TESTED AT [facility] [address] [place] (test jbnb=4665) [facility] [address] POCT-GLUCOSE [id number] 07:43:00 Test Item Value Reference Range Comments POC-GLUCOSE METER (BEAKER) 100 mg/dL 70-110 TESTED AT [facility] [address] [place] (test ulhy=7034) [facility] [address] BASIC METABOLIC [id number] 04:34:00 Test Item Value Reference Range Comments SODIUM (BEAKER) (test 139 meq/L 136-145 zgro=241) POTASSIUM (BEAKER) (test 3.5 meq/L 3.5-5.1 cigr=136) CHLORIDE (BEAKER) (test 94 meq/L 98-107 wilj=646) CO2 (BEAKER) (test 33 meq/L 22-29 lhkf=588) BLOOD UREA NITROGEN 64 mg/dL 7-21 (BEAKER) (test jsxh=279) CREATININE (BEAKER) (test 1.16 mg/dL 0.57-1.25 zbfk=675) GLUCOSE RANDOM (BEAKER) 122 mg/dL 70-105 (test jjag=384) CALCIUM (BEAKER) (test 9.2 mg/dL 8.4-10.2 eotu=497) EGFR (BEAKER) (test mL/min/1.73 sq m INSUFFICIENT CLINICAL DATA wyit=3887) TO CALCULATE ESTIMATED GFR. [id number] 04:33:00 Test Item Value Reference Range Comments MAGNESIUM (BEAKER) (test zqma=987) 2.2 mg/dL 1.6-2.6 [id number] 04:33:00 Test Item Value Reference Range Comments PHOSPHORUS (BEAKER) (test hdiq=334) 3.8 mg/dL 2.3-4.7 HEPATIC FUNCTION [id number] 04:33:00 Test Item Value Reference Range Comments TOTAL PROTEIN (BEAKER) (test frhc=129) 7.7 gm/dL 6.0-8.3 ALBUMIN (BEAKER) (test twqh=6143) 4.2 g/dL 3.5-5.0 BILIRUBIN TOTAL (BEAKER) (test tfth=899) 0.9 mg/dL 0.2-1.2 BILIRUBIN DIRECT (BEAKER) (test hqvm=357) 0.6 mg/dL 0.1-0.5 ALKALINE PHOSPHATASE (BEAKER) (test umom=707) 87 U/L 40-150 AST (SGOT) (BEAKER) (test zafp=943) 26 U/L 5-34 ALT (SGPT) (BEAKER) (test zkiu=729) 15 U/L 6-55 [id number] 04:30:00 Test Item Value Reference Range Comments FIBRINOGEN LEVEL (BEAKER) (test ugbr=356) 137 mg/dl 225-434 [id number] 04:25:00 Test Item Value Reference Range Comments PARTIAL THROMBOPLASTIN TIME (BEAKER) (test 30.2 seconds 22.5-36.0 ovbr=101) PROTHROMBIN [id number] 04:24:00 Test Item Value Reference Range Comments PROTIME (BEAKER) (test psuv=638) 19.5 seconds 11.7-14.7 INR (BEAKER) (test ikge=770) 1.7 <=5.9 RECOMMENDED COUMADIN/WARFARIN INR THERAPY RANGESSTANDARD DOSE: 2.0 - 3.0 Includes: PROPHYLAXIS forvenous thrombosis, systemic embolization; TREATMENT for venous thrombosis and/or pulmonary embolus.HIGH RISK: Target INR is 2.5-3.5 for patients with mechanical heart valves.CBC W/PLT COUNT & AUTO [id number] 04:19:00 Test Item Value Reference Range Comments WHITE BLOOD CELL COUNT (BEAKER) (test fvmp=741) 6.9 K/ L 4.0-10.0 RED BLOOD CELL COUNT (BEAKER) (test qice=946) 2.95 M/ L 4.20-5.80 HEMOGLOBIN (BEAKER) (test apry=600) 9.7 GM/DL 13.0-16.8 HEMATOCRIT (BEAKER) (test bwso=979) 28.9 % 40.0-50.0 MEAN CORPUSCULAR VOLUME (BEAKER) (test sptd=123) 98.1 fL 82.0-98.0 MEAN CORPUSCULAR HEMOGLOBIN (BEAKER) (test 32.7 pg 27.0-33.0 vswd=471) MEAN CORPUSCULAR HEMOGLOBIN CONC (BEAKER) (test 33.4 GM/DL 32.0-36.0 uaam=444) RED CELL DISTRIBUTION WIDTH (BEAKER) (test 14.4 % 10.3-14.2 ygxs=673) PLATELET COUNT (BEAKER) (test zydk=693) 65 K/CU MM 150-430 MEAN PLATELET VOLUME (BEAKER) (test qviv=563) 8.4 fL 6.5-10.5 NUCLEATED RED BLOOD CELLS (BEAKER) (test 0 /100 WBC 0-0 cpar=283) NEUTROPHILS RELATIVE PERCENT (BEAKER) (test 85 % urir=773) LYMPHOCYTES RELATIVE PERCENT (BEAKER) (test 6 % xpkg=266) MONOCYTES RELATIVE PERCENT (BEAKER) (test 9 % ybxc=057) EOSINOPHILS RELATIVE PERCENT (BEAKER) (test 0 % dqmb=752) BASOPHILS RELATIVE PERCENT (BEAKER) (test 0 % olgw=158) NEUTROPHILS ABSOLUTE COUNT (BEAKER) (test 5.83 K/ L 1.80-8.00 wzly=906) LYMPHOCYTES ABSOLUTE COUNT (BEAKER) (test 0.38 K/ L 1.48-4.50 gcfq=264) MONOCYTES ABSOLUTE COUNT (BEAKER) (test cfnp=504) 0.65 K/ L 0.00-1.30 EOSINOPHILS ABSOLUTE COUNT (BEAKER) (test 0.02 K/ L 0.00-0.50 xahv=482) BASOPHILS ABSOLUTE COUNT (BEAKER) (test vinz=896) 0.02 K/ L 0.00-0.20 0.00POCT-GLUCOSE [id number] 17:17:00 Test Item Value Reference Range Comments POC-GLUCOSE METER (BEAKER) 149 mg/dL 70-110 TESTED AT [address] (test ozzt=5133) [facility] [id number] POCT-GLUCOSE [id number] 13:08:00 Test Item Value Reference Range Comments POC-GLUCOSE METER (BEAKER) 106 mg/dL 70-110 TESTED AT [address] (test qmzc=9361) [facility] [address] CBC W/PLT COUNT & AUTO [id number] 08:13:00 Test Item Value Reference Range Comments WHITE BLOOD CELL COUNT (BEAKER) 5.5 K/ L 4.0-10.0 (test bxud=170) RED BLOOD CELL COUNT (BEAKER) 2.95 M/ L 4.20-5.80 (test ynut=877) HEMOGLOBIN (BEAKER) (test 9.5 GM/DL 13.0-16.8 vdzu=759) HEMATOCRIT (BEAKER) (test 29.1 % 40.0-50.0 zzil=496) MEAN CORPUSCULAR VOLUME 98.4 fL 82.0-98.0 (BEAKER) (test llnt=888) MEAN CORPUSCULAR HEMOGLOBIN 32.2 pg 27.0-33.0 (BEAKER) (test cjqv=410) MEAN CORPUSCULAR HEMOGLOBIN 32.8 GM/DL 32.0-36.0 CONC (BEAKER) (test lols=544) RED CELL DISTRIBUTION WIDTH 13.8 % 10.3-14.2 (BEAKER) (test hemj=293) PLATELET COUNT (BEAKER) (test K/CU MM 150-430 plt clumps, see manual plt ubeq=328) count MEAN PLATELET VOLUME (BEAKER) 9.2 fL 6.5-10.5 (test zbeo=790) NUCLEATED RED BLOOD CELLS 0 /100 WBC 0-0 (BEAKER) (test njcz=955) NEUTROPHILS RELATIVE PERCENT 85 % (BEAKER) (test zfyp=317) LYMPHOCYTES RELATIVE PERCENT 4 % (BEAKER) (test xmrs=295) MONOCYTES RELATIVE PERCENT 10 % (BEAKER) (test uelu=575) EOSINOPHILS RELATIVE PERCENT 0 % (BEAKER) (test wdwg=959) BASOPHILS RELATIVE PERCENT 0 % (BEAKER) (test funh=840) NEUTROPHILS ABSOLUTE COUNT 4.72 K/ L 1.80-8.00 (BEAKER) (test tnir=017) LYMPHOCYTES ABSOLUTE COUNT 0.23 K/ L 1.48-4.50 (BEAKER) (test pgph=392) MONOCYTES ABSOLUTE COUNT 0.57 K/ L 0.00-1.30 (BEAKER) (test esia=752) EOSINOPHILS ABSOLUTE COUNT 0.01 K/ L 0.00-0.50 (BEAKER) (test dklp=570) BASOPHILS ABSOLUTE COUNT 0.01 K/ L 0.00-0.20 (BEAKER) (test kbyb=154) 0.00(MANUAL DIFFERENTIAL)2016-09-13 08:13:00 Test Item Value Reference Range Comments TOTAL COUNTED (BEAKER) (test dmmn=7983) WBC MORPHOLOGY (BEAKER) (test qxjb=418) Normal LARGE PLT(BEAKER) (test altk=3417) Present CLUMPED PLATELETS (BEAKER) (test hqnk=963) Present ANISOCYTOSIS (BEAKER) (test btxn=767) 1+ few HYPOCHROMIA (BEAKER) (test nltn=154) 1+ few MACROCYTES (BEAKER) (test lhzh=084) 1+ few OVALOCYTES (BEAKER) (test ctop=277) 1+ few POIKILOCYTES (BEAKER) (test onaw=448) 1+ few PLATELET COUNT BY MANUAL [id number] 08:13:00 Test Item Value Reference Range Comments PLATELET COUNT MANUAL (BEAKER) (test srba=5881) 60 K/CU MM 150-430 POCT-GLUCOSE [id number] 07:37:00 Test Item Value Reference Range Comments POC-GLUCOSE METER (BEAKER) 113 mg/dL 70-110 TESTED AT [facility] [address], [place] (test qccb=9676) [facility] [address] BASIC METABOLIC [id number] 06:17:00 Test Item Value Reference Range Comments SODIUM (BEAKER) (test 141 meq/L 136-145 zsvj=615) POTASSIUM (BEAKER) (test 3.7 meq/L 3.5-5.1 vgqe=624) CHLORIDE (BEAKER) (test 98 meq/L 98-107 euhs=568) CO2 (BEAKER) (test 33 meq/L 22-29 yzpv=303) BLOOD UREA NITROGEN 65 mg/dL 7-21 (BEAKER) (test frli=339) CREATININE (BEAKER) (test 1.15 mg/dL 0.57-1.25 rzea=959) GLUCOSE RANDOM (BEAKER) 115 mg/dL 70-105 (test jebi=343) CALCIUM (BEAKER) (test 9.0 mg/dL 8.4-10.2 cxzs=048) EGFR (BEAKER) (test mL/min/1.73 sq m INSUFFICIENT CLINICAL DATA cqzl=0320) TO CALCULATE ESTIMATED GFR. [id number] 05:59:00 Test Item Value Reference Range Comments FIBRINOGEN LEVEL (BEAKER) (test gcfc=858) 157 mg/dl 225-434 [id number] 05:53:00 Test Item Value Reference Range Comments PARTIAL THROMBOPLASTIN TIME (BEAKER) (test 31.2 seconds 22.5-36.0 msgx=094) PROTHROMBIN TIME/[id number] 05:52:00 Test Item Value Reference Range Comments PROTIME (BEAKER) (test cudp=179) 20.3 seconds 11.7-14.7 INR (BEAKER) (test gmst=170) 1.7 <=5.9 RECOMMENDED COUMADIN/WARFARIN INR THERAPY RANGESSTANDARD DOSE: 2.0 - 3.0 Includes: PROPHYLAXIS forvenous thrombosis, systemic embolization; TREATMENT for venous thrombosis and/or pulmonary embolus.HIGH RISK: Target INR is 2.5-3.5 for patients with mechanical heart valves.POCT-GLUCOSE [id number] 21:09:00 Test Item Value Reference Range Comments POC-GLUCOSE METER (BEAKER) 233 mg/dL 70-110 TESTED AT [address] (test swyi=7476) [place] [address] POCT-GLUCOSE [id number] 13:03:00 Test Item Value Reference Range Comments POC-GLUCOSE METER (BEAKER) 93 mg/dL 70-110 TESTED AT [address] (test pzqj=1324) [place] [address] BASIC METABOLIC [id number] 07:06:00 Test Item Value Reference Range Comments SODIUM (BEAKER) (test 140 meq/L 136-145 tmin=849) POTASSIUM (BEAKER) (test 4.0 meq/L 3.5-5.1 sgxc=382) CHLORIDE (BEAKER) (test 99 meq/L 98-107 euow=366) CO2 (BEAKER) (test 29 meq/L 22-29 adxv=383) BLOOD UREA NITROGEN 66 mg/dL 7-21 (BEAKER) (test gfsy=292) CREATININE (BEAKER) (test 1.28 mg/dL 0.57-1.25 tkut=753) GLUCOSE RANDOM (BEAKER) 108 mg/dL 70-105 (test nmav=922) CALCIUM (BEAKER) (test 8.9 mg/dL 8.4-10.2 jtrj=082) EGFR (BEAKER) (test mL/min/1.73 sq m INSUFFICIENT CLINICAL DATA ifzz=8077) TO CALCULATE ESTIMATED GFR. B-TYPE NATRIURETIC FACTOR (BNP)2016-09-12 07:04:00 Test Item Value Reference Range Comments B-TYPE NATRIURETIC PEPTIDE (BEAKER) (test 323 pg/mL 0-100 tbid=993) CBC W/PLT COUNT & AUTO [id number] 07:02:00 Test Item Value Reference Range Comments WHITE BLOOD CELL COUNT (BEAKER) (test oexb=968) 6.2 K/ L 4.0-10.0 RED BLOOD CELL COUNT (BEAKER) (test xpze=859) 2.82 M/ L 4.20-5.80 HEMOGLOBIN (BEAKER) (test ezry=585) 9.2 GM/DL 13.0-16.8 HEMATOCRIT (BEAKER) (test kfbp=115) 27.9 % 40.0-50.0 MEAN CORPUSCULAR VOLUME (BEAKER) (test taxd=710) 98.7 fL 82.0-98.0 MEAN CORPUSCULAR HEMOGLOBIN (BEAKER) (test 32.7 pg 27.0-33.0 oecd=902) MEAN CORPUSCULAR HEMOGLOBIN CONC (BEAKER) (test 33.2 GM/DL 32.0-36.0 aqkv=604) RED CELL DISTRIBUTION WIDTH (BEAKER) (test 13.8 % 10.3-14.2 bibv=860) PLATELET COUNT (BEAKER) (test yflx=544) 52 K/CU MM 150-430 MEAN PLATELET VOLUME (BEAKER) (test ukqx=053) 8.6 fL 6.5-10.5 NUCLEATED RED BLOOD CELLS (BEAKER) (test 0 /100 WBC 0-0 omnl=141) NEUTROPHILS RELATIVE PERCENT (BEAKER) (test 85 % bkzh=801) LYMPHOCYTES RELATIVE PERCENT (BEAKER) (test 4 % uzkd=409) MONOCYTES RELATIVE PERCENT (BEAKER) (test 10 % xiep=799) EOSINOPHILS RELATIVE PERCENT (BEAKER) (test 0 % pyfu=578) BASOPHILS RELATIVE PERCENT (BEAKER) (test 1 % vyiv=655) NEUTROPHILS ABSOLUTE COUNT (BEAKER) (test 5.26 K/ L 1.80-8.00 zsrh=900) LYMPHOCYTES ABSOLUTE COUNT (BEAKER) (test 0.24 K/ L 1.48-4.50 djrh=030) MONOCYTES ABSOLUTE COUNT (BEAKER) (test djmp=430) 0.61 K/ L 0.00-1.30 EOSINOPHILS ABSOLUTE COUNT (BEAKER) (test 0.01 K/ L 0.00-0.50 pqaf=984) BASOPHILS ABSOLUTE COUNT (BEAKER) (test jgfo=467) 0.06 K/ L 0.00-0.20 [id number] 06:59:00 Test Item Value Reference Range Comments FIBRINOGEN LEVEL (BEAKER) (test ffun=669) 150 mg/dl 225-434 [id number] 06:55:00 Test Item Value Reference Range Comments PARTIAL THROMBOPLASTIN TIME (BEAKER) (test 32.2 seconds 22.5-36.0 znmr=156) PROTHROMBIN [id number] 06:52:00 Test Item Value Reference Range Comments PROTIME (BEAKER) (test hzyq=771) 20.2 seconds 11.7-14.7 INR (BEAKER) (test slrs=762) 1.7 <=5.9 RECOMMENDED COUMADIN/WARFARIN INR THERAPY RANGESSTANDARD DOSE: 2.0 - 3.0 Includes: PROPHYLAXIS forvenous thrombosis, systemic embolization; TREATMENT for venous thrombosis and/or pulmonary embolus.HIGH RISK: Target INR is 2.5-3.5 for patients with mechanical heart valves.POCT-GLUCOSE [id number] 21:59:00 Test Item Value Reference Range Comments POC-GLUCOSE METER (BEAKER) 168 mg/dL 70-110 TESTED AT [address] (test ypdw=0288) [place] [id number] BODY FLUID CULTURE + GRAM [id number] 14:32:00 Test Item Value Reference Range Comments CULTURE (BEAKER) (test whhj=3850) No growth GRAM STAIN RESULT (BEAKER) (test 2+ WBCs mrya=4207) GRAM STAIN RESULT (BEAKER) (test No organisms seen kxom=58781) POCT-GLUCOSE [id number] 11:29:00 Test Item Value Reference Range Comments POC-GLUCOSE METER (BEAKER) 94 mg/dL 70-110 TESTED AT [address] (test mgxd=9487) [place] [id number] CBC W/PLT COUNT & AUTO [id number] 09:59:00 Test Item Value Reference Range Comments WHITE BLOOD CELL COUNT (BEAKER) (test ydkl=723) 7.6 K/ L 4.0-10.0 RED BLOOD CELL COUNT (BEAKER) (test ezch=726) 3.23 M/ L 4.20-5.80 HEMOGLOBIN (BEAKER) (test szsy=198) 9.5 GM/DL 13.0-16.8 HEMATOCRIT (BEAKER) (test wghy=757) 31.9 % 40.0-50.0 MEAN CORPUSCULAR VOLUME (BEAKER) (test jgmq=160) 98.6 fL 82.0-98.0 MEAN CORPUSCULAR HEMOGLOBIN (BEAKER) (test 29.5 pg 27.0-33.0 uymu=540) MEAN CORPUSCULAR HEMOGLOBIN CONC (BEAKER) (test 29.9 GM/DL 32.0-36.0 empr=664) RED CELL DISTRIBUTION WIDTH (BEAKER) (test 13.8 % 10.3-14.2 dabq=712) PLATELET COUNT (BEAKER) (test mdpg=521) 33 K/CU MM 150-430 MEAN PLATELET VOLUME (BEAKER) (test udfv=476) 9.9 fL 6.5-10.5 NUCLEATED RED BLOOD CELLS (BEAKER) (test 0 /100 WBC 0-0 trxh=904) NEUTROPHILS RELATIVE PERCENT (BEAKER) (test 86 % zjrv=818) LYMPHOCYTES RELATIVE PERCENT (BEAKER) (test 4 % xbuh=100) MONOCYTES RELATIVE PERCENT (BEAKER) (test 10 % urfg=649) EOSINOPHILS RELATIVE PERCENT (BEAKER) (test 0 % qovx=486) BASOPHILS RELATIVE PERCENT (BEAKER) (test 1 % sfyo=695) NEUTROPHILS ABSOLUTE COUNT (BEAKER) (test 6.55 K/ L 1.80-8.00 auzw=390) LYMPHOCYTES ABSOLUTE COUNT (BEAKER) (test 0.27 K/ L 1.48-4.50 ikvj=821) MONOCYTES ABSOLUTE COUNT (BEAKER) (test cbwf=149) 0.76 K/ L 0.00-1.30 EOSINOPHILS ABSOLUTE COUNT (BEAKER) (test 0.01 K/ L 0.00-0.50 imxn=881) BASOPHILS ABSOLUTE COUNT (BEAKER) (test rkxi=257) 0.05 K/ L 0.00-0.20 0.000.730.900.000.000.000.000.000.000.000.000.000.000.000.000.000.000.00(MANUAL DIFFERENTIAL)2016-09-11 09:59:00 Test Item Value Reference Range Comments TOTAL COUNTED (BEAKER) (test lzze=2658) POCT-GLUCOSE [id number] 08:02:00 Test Item Value Reference Range Comments POC-GLUCOSE METER (BEAKER) 173 mg/dL 70-110 TESTED AT [facility] [address] [place] (test zdce=0711) [facility] [address] BLOOD [id number] 06:00:00 Test Item Value Reference Range Comments CULTURE (BEAKER) (test dsao=4571) No growth in 5 days BLOOD [id number] 06:00:00 Test Item Value Reference Range Comments CULTURE (BEAKER) (test mufu=3157) No growth in 5 days BASIC METABOLIC [id number] 05:16:00 Test Item Value Reference Range Comments SODIUM (BEAKER) (test 137 meq/L 136-145 mulu=154) POTASSIUM (BEAKER) (test 4.3 meq/L 3.5-5.1 akig=824) CHLORIDE (BEAKER) (test 100 meq/L 98-107 lgyb=889) CO2 (BEAKER) (test 28 meq/L 22-29 ntrz=434) BLOOD UREA NITROGEN 63 mg/dL 7-21 (BEAKER) (test xwpx=339) CREATININE (BEAKER) (test 1.35 mg/dL 0.57-1.25 tyrd=886) GLUCOSE RANDOM (BEAKER) 107 mg/dL 70-105 (test isow=058) CALCIUM (BEAKER) (test 8.8 mg/dL 8.4-10.2 ftxi=669) EGFR (BEAKER) (test mL/min/1.73 sq m INSUFFICIENT CLINICAL DATA tdhe=9989) TO CALCULATE ESTIMATED GFR. [id number] 05:05:00 Test Item Value Reference Range Comments FIBRINOGEN LEVEL (BEAKER) (test vlxg=105) 182 mg/dl 225-434 PROTHROMBIN TIME/[id number] 05:04:00 Test Item Value Reference Range Comments PROTIME (BEAKER) (test etab=866) 19.1 seconds 11.7-14.7 INR (BEAKER) (test mocg=943) 1.6 <=5.9 RECOMMENDED COUMADIN/WARFARIN INR THERAPY RANGESSTANDARD DOSE: 2.0 - 3.0 Includes: PROPHYLAXIS forvenous thrombosis, systemic embolization; TREATMENT for venous thrombosis and/or pulmonary embolus.HIGH RISK: Target INR is 2.5-3.5 for patients with mechanical heart valves.[id number] 05:04:00 Test Item Value Reference Range Comments PARTIAL THROMBOPLASTIN TIME (BEAKER) (test 31.5 seconds 22.5-36.0 wjna=541) POCT-GLUCOSE [id number] 21:44:00 Test Item Value Reference Range Comments POC-GLUCOSE METER (BEAKER) 167 mg/dL 70-110 TESTED AT [address] (test mogx=4747) [facility] [address] POCT-GLUCOSE [id number] 18:07:00 Test Item Value Reference Range Comments POC-GLUCOSE METER (BEAKER) 159 mg/dL 70-110 TESTED AT [address] (test jokt=1782) [facility] [address] POCT-GLUCOSE [id number] 11:58:00 Test Item Value Reference Range Comments POC-GLUCOSE METER (BEAKER) 153 mg/dL 70-110 TESTED AT [address] (test bcjo=7555) [facility] [address] CBC W/PLT COUNT & AUTO [id number] 09:13:00 Test Item Value Reference Range Comments WHITE BLOOD CELL COUNT (BEAKER) (test yekp=899) 7.7 K/ L 4.0-10.0 RED BLOOD CELL COUNT (BEAKER) (test eijq=713) 2.97 M/ L 4.20-5.80 HEMOGLOBIN (BEAKER) (test ekul=999) 9.7 GM/DL 13.0-16.8 HEMATOCRIT (BEAKER) (test uirg=257) 29.2 % 40.0-50.0 MEAN CORPUSCULAR VOLUME (BEAKER) (test fjje=882) 98.1 fL 82.0-98.0 MEAN CORPUSCULAR HEMOGLOBIN (BEAKER) (test 32.6 pg 27.0-33.0 xcws=421) MEAN CORPUSCULAR HEMOGLOBIN CONC (BEAKER) (test 33.2 GM/DL 32.0-36.0 mxhc=685) RED CELL DISTRIBUTION WIDTH (BEAKER) (test 13.7 % 10.3-14.2 nhya=044) PLATELET COUNT (BEAKER) (test onhc=870) 25 K/CU MM 150-430 MEAN PLATELET VOLUME (BEAKER) (test nfze=213) 10.2 fL 6.5-10.5 NUCLEATED RED BLOOD CELLS (BEAKER) (test 0 /100 WBC 0-0 alsk=366) NEUTROPHILS RELATIVE PERCENT (BEAKER) (test 86 % hitx=524) LYMPHOCYTES RELATIVE PERCENT (BEAKER) (test 4 % qyax=976) MONOCYTES RELATIVE PERCENT (BEAKER) (test 10 % ftdl=020) EOSINOPHILS RELATIVE PERCENT (BEAKER) (test 0 % uwub=311) BASOPHILS RELATIVE PERCENT (BEAKER) (test 0 % abck=571) NEUTROPHILS ABSOLUTE COUNT (BEAKER) (test 6.61 K/ L 1.80-8.00 wbht=325) LYMPHOCYTES ABSOLUTE COUNT (BEAKER) (test 0.29 K/ L 1.48-4.50 pwep=282) MONOCYTES ABSOLUTE COUNT (BEAKER) (test lldi=056) 0.77 K/ L 0.00-1.30 EOSINOPHILS ABSOLUTE COUNT (BEAKER) (test 0.01 K/ L 0.00-0.50 pwil=152) BASOPHILS ABSOLUTE COUNT (BEAKER) (test trkv=465) 0.00 K/ L 0.00-0.20 0.00POCT-GLUCOSE [id number] 08:17:00 Test Item Value Reference Range Comments POC-GLUCOSE METER (BEAKER) 110 mg/dL 70-110 TESTED AT [facility] [address] [place] (test qoof=8086) [facility] [address] BASIC METABOLIC [id number] 07:06:00 Test Item Value Reference Range Comments SODIUM (BEAKER) (test 135 meq/L 136-145 yqod=502) POTASSIUM (BEAKER) (test 4.6 meq/L 3.5-5.1 laja=877) CHLORIDE (BEAKER) (test 101 meq/L 98-107 sokr=766) CO2 (BEAKER) (test 26 meq/L 22-29 jfbn=776) BLOOD UREA NITROGEN 57 mg/dL 7-21 (BEAKER) (test ocrs=448) CREATININE (BEAKER) (test 1.69 mg/dL 0.57-1.25 pkdn=870) GLUCOSE RANDOM (BEAKER) 121 mg/dL 70-105 (test qhzk=511) CALCIUM (BEAKER) (test 8.3 mg/dL 8.4-10.2 vgfh=798) EGFR (BEAKER) (test mL/min/1.73 sq m INSUFFICIENT CLINICAL DATA uonj=4006) TO CALCULATE ESTIMATED GFR. [id number] 06:52:00 Test Item Value Reference Range Comments FIBRINOGEN LEVEL (BEAKER) (test npfs=882) 203 mg/dl 225-434 [id number] 06:52:00 Test Item Value Reference Range Comments PARTIAL THROMBOPLASTIN TIME (BEAKER) (test 32.6 seconds 22.5-36.0 zmmp=096) PROTHROMBIN TIME/[id number] 06:51:00 Test Item Value Reference Range Comments PROTIME (BEAKER) (test cxsy=854) 19.8 seconds 11.7-14.7 INR (BEAKER) (test lykx=573) 1.7 <=5.9 RECOMMENDED COUMADIN/WARFARIN INR THERAPY RANGESSTANDARD DOSE: 2.0 - 3.0 Includes: PROPHYLAXIS forvenous thrombosis, systemic embolization; TREATMENT for venous thrombosis and/or pulmonary embolus.HIGH RISK: Target INR is 2.5-3.5 for patients with mechanical heart valves.POCT-GLUCOSE [id number] 21:51:00 Test Item Value Reference Range Comments POC-GLUCOSE METER (BEAKER) 157 mg/dL 70-110 TESTED AT [address] (test gwsd=3961) [place] [address] POCT-GLUCOSE [id number] 16:53:00 Test Item Value Reference Range Comments POC-GLUCOSE METER (BEAKER) 154 mg/dL 70-110 TESTED AT [address] (test xdgf=8401) [place] [address] POCT-GLUCOSE [id number] 12:31:00 Test Item Value Reference Range Comments POC-GLUCOSE METER (BEAKER) 190 mg/dL 70-110 TESTED AT [address] (test kuhx=0937) [place] [address] CBC W/PLT COUNT & AUTO [id number] 09:48:00 Test Item Value Reference Range Comments WHITE BLOOD CELL COUNT (BEAKER) (test hiym=825) 4.1 K/ L 4.0-10.0 RED BLOOD CELL COUNT (BEAKER) (test fpes=367) 3.24 M/ L 4.20-5.80 HEMOGLOBIN (BEAKER) (test xrbo=653) 9.8 GM/DL 13.0-16.8 HEMATOCRIT (BEAKER) (test vnhw=184) 32.2 % 40.0-50.0 MEAN CORPUSCULAR VOLUME (BEAKER) (test cjoj=955) 99.5 fL 82.0-98.0 MEAN CORPUSCULAR HEMOGLOBIN (BEAKER) (test 30.4 pg 27.0-33.0 zbud=660) MEAN CORPUSCULAR HEMOGLOBIN CONC (BEAKER) (test 30.5 GM/DL 32.0-36.0 yujb=720) RED CELL DISTRIBUTION WIDTH (BEAKER) (test 13.8 % 10.3-14.2 ylcn=015) PLATELET COUNT (BEAKER) (test qnfj=516) 28 K/CU MM 150-430 MEAN PLATELET VOLUME (BEAKER) (test gtln=752) 9.7 fL 6.5-10.5 NUCLEATED RED BLOOD CELLS (BEAKER) (test 0 /100 WBC 0-0 jaxc=390) NEUTROPHILS RELATIVE PERCENT (BEAKER) (test 90 % agzs=910) LYMPHOCYTES RELATIVE PERCENT (BEAKER) (test 6 % irwr=248) MONOCYTES RELATIVE PERCENT (BEAKER) (test 3 % ywzl=042) EOSINOPHILS RELATIVE PERCENT (BEAKER) (test 0 % yihl=664) BASOPHILS RELATIVE PERCENT (BEAKER) (test 0 % kdmy=547) NEUTROPHILS ABSOLUTE COUNT (BEAKER) (test 3.64 K/ L 1.80-8.00 ehtd=510) LYMPHOCYTES ABSOLUTE COUNT (BEAKER) (test 0.26 K/ L 1.48-4.50 upep=439) MONOCYTES ABSOLUTE COUNT (BEAKER) (test awip=742) 0.14 K/ L 0.00-1.30 EOSINOPHILS ABSOLUTE COUNT (BEAKER) (test 0.01 K/ L 0.00-0.50 scgm=271) BASOPHILS ABSOLUTE COUNT (BEAKER) (test ubtq=218) 0.01 K/ L 0.00-0.20 0.00POCT-GLUCOSE [id number] 08:39:00 Test Item Value Reference Range Comments POC-GLUCOSE METER (BEAKER) 146 mg/dL 70-110 TESTED AT [facility] [address] [place] (test oepw=1050) [facility] [address] HEMOGLOBIN AND [id number] 06:53:00 Test Item Value Reference Range Comments HEMOGLOBIN (BEAKER) (test pbzx=294) 9.6 GM/DL 13.0-16.8 HEMATOCRIT (BEAKER) (test xubi=746) 30.0 % 40.0-50.0 HEPATITIS PANEL, [id number] 05:20:00 Test Item Value Reference Range Comments HEPATITIS A IGM ANTIBODY (BEAKER) (test Nonreactive Nonreactive zxqx=888) HEPATITIS B CORE IGM ANTIBODY (BEAKER) (test Nonreactive Nonreactive wxlw=845) HEPATITIS C ANTIBODY (BEAKER) (test nlyw=793) Nonreactive Nonreactive HEPATITIS B SURFACE ANTIGEN (2) (BEAKER) (test Nonreactive Nonreactive mvdw=1626) ALPHA FETOPROTEIN (AFP), TUMOR [id number] 05:20:00 Test Item Value Reference Range Comments ALPHA-FETOPROTEIN (BEAKER) (test lwha=0274) < ng/mL <10.0 Effective 05/09/2014: Reference Range ChangeNew: <10.0 Previous: 0.0- [id number] 05:10:00 Test Item Value Reference Range Comments PREALBUMIN (BEAKER) (test 9 mg/dL 14-45 Specimen slightly hemolyzed qwuk=257) IMMUNOGLOBULIN G (IGG)2016-09-09 05:10:00 Test Item Value Reference Range Comments IMMUNOGLOBULIN G (IGG) (BEAKER) (test dlxy=135) 2488 mg/dL 540-1822 BASIC METABOLIC [id number] 04:56:00 Test Item Value Reference Range Comments SODIUM (BEAKER) (test 133 meq/L 136-145 hupt=074) POTASSIUM (BEAKER) (test 5.2 meq/L 3.5-5.1 qzmx=339) CHLORIDE (BEAKER) (test 99 meq/L 98-107 vetg=622) CO2 (BEAKER) (test 25 meq/L 22-29 jjys=905) BLOOD UREA NITROGEN 47 mg/dL 7-21 (BEAKER) (test owgz=107) CREATININE (BEAKER) (test 2.09 mg/dL 0.57-1.25 asqq=930) GLUCOSE RANDOM (BEAKER) 128 mg/dL 70-105 (test rbcl=475) CALCIUM (BEAKER) (test 8.3 mg/dL 8.4-10.2 telo=866) EGFR (BEAKER) (test mL/min/1.73 sq m INSUFFICIENT CLINICAL DATA bjbj=9694) TO CALCULATE ESTIMATED GFR. [id number] 04:50:00 Test Item Value Reference Range Comments PARTIAL THROMBOPLASTIN TIME (BEAKER) (test 34.4 seconds 22.5-36.0 wgqx=151) PROTHROMBIN TIME/[id number] 04:49:00 Test Item Value Reference Range Comments PROTIME (BEAKER) (test rtiz=954) 18.4 seconds 11.7-14.7 INR (BEAKER) (test jwjm=467) 1.5 <=5.9 RECOMMENDED COUMADIN/WARFARIN INR THERAPY RANGESSTANDARD DOSE: 2.0 - 3.0 Includes: PROPHYLAXIS forvenous thrombosis, systemic embolization; TREATMENT for venous thrombosis and/or pulmonary embolus.HIGH RISK: Target INR is 2.5-3.5 for patients with mechanical heart valves.[id number] 04:49:00 Test Item Value Reference Range Comments FIBRINOGEN LEVEL (BEAKER) (test fecy=304) 265 mg/dl 225-434 HEMOGLOBIN AND [id number] 01:12:00 Test Item Value Reference Range Comments HEMOGLOBIN (BEAKER) (test idvu=798) 9.8 GM/DL 13.0-16.8 HEMATOCRIT (BEAKER) (test ijtz=440) 30.6 % 40.0-50.0 POCT-GLUCOSE [id number] 21:55:00 Test Item Value Reference Range Comments POC-GLUCOSE METER (BEAKER) 108 mg/dL 70-110 TESTED AT [facility] [address] [place] (test bmca=7885) [facility] [address] BODY FLUID CELL COUNT WITH [id number] 19:27:00 Test Item Value Reference Range Comments APPEARANCE FLUID (BEAKER) (test vhpq=909) Cloudy Clear COLOR FLUID (BEAKER) (test pjqk=548) Niru Colorless, Straw RBC FLUID (BEAKER) (test zfgx=756) 6800 /cu mm <=1 ADJUSTED WBC FLUID (BEAKER) (test opnf=2432) 283 /cu mm <=5 LINING CELLS (BEAKER) (test kaqd=2015) 0 /cu mm <=1 NEUTROPHILS FLUID (BEAKER) (test kofd=4173) 6 % LYMPHS FLUID (BEAKER) (test zspm=490) 12 % MONO/MACROPHAGE FLUID (BEAKER) (test jumk=153) 82 % EOSINOPHILS FLUID (BEAKER) (test sgmd=682) 0 % BASO FLUID (BEAKER) (test mbzh=888) 0 % CONTAINER BODY FLUID (BEAKER) (test ktcm=9261) EDTA Tube LACTATE DEHYDROGENASE (LDH), BODY [id number] 18:24:00 Test Item Value Reference Range Comments LACTATE DEHYDROGENASE FLUID (BEAKER) (test agjg=397) 118 U/L Absence of reference range indicates that normals have not been defined.Assay performance has not been validated for this type of specimen.POCT-GLUCOSE [id number] 18:18:00 Test Item Value Reference Range Comments POC-GLUCOSE METER (BEAKER) 137 mg/dL 70-110 TESTED AT [facility] [address] [place] (test zoad=0803) [facility] [address] ALBUMIN, BODY [id number] 18:06:00 Test Item Value Reference Range Comments ALBUMIN FLUID (BEAKER) (test jsow=810) 1.7 gm/dL Reference Range: No Normals Assay performance has not been validated for this type of specimen.[facility] (DRVV)2016-09-08 16:28:00 Test Item Value Reference Range Comments PROTIME (BEAKER) (test knlj=769) 18.3 seconds 11.7-14.7 INR (BEAKER) (test vjhy=543) 1.6 <=5.9 PARTIAL THROMBOPLASTIN TIME 36.3 seconds 22.5-36.0 (BEAKER) (test tijx=027) DRVV INTERPRETATION (BEAKER) Normal DRVV Results (test qmzc=0813) HQTO-[id number] (BEAKER) Carolina Mahan MD (test trgb=4239) (electronic signature) DRVV SCREEN RATIO (BEAKER) (test 1.14 <1.20 hulj=6174) Effective 10/25/2013: Test Method ChangeDRVV Screen Ratio, DRVV 1/1 Screen Ratio, DRVV Confirm Ratio,DRVV Normalized Ratio Reference Range: <1.2Protime Reference Range ChangeNew: 11.7-14.7 Previous: 9.8-12.0PTT Reference Range ChangeNew: 22.5-36.0 Previous: 25.8-34.5ALPHA FETOPROTEIN (AFP), TUMOR [id number] 16:23:00 Test Item Value Reference Range Comments ALPHA-FETOPROTEIN (BEAKER) (test blnw=9311) 2.0 ng/mL <10.0 Effective 05/09/2014: Reference Range ChangeNew: <10.0 Previous: 0.0- 8.0CBC W/PLT COUNT & AUTO [id number] 15:34:00 Test Item Value Reference Range Comments WHITE BLOOD CELL COUNT (BEAKER) (test cafk=686) 5.4 K/ L 4.0-10.0 RED BLOOD CELL COUNT (BEAKER) (test drhm=950) 3.02 M/ L 4.20-5.80 HEMOGLOBIN (BEAKER) (test dyyl=773) 9.8 GM/DL 13.0-16.8 HEMATOCRIT (BEAKER) (test cafz=920) 30.0 % 40.0-50.0 MEAN CORPUSCULAR VOLUME (BEAKER) (test oggx=297) 99.4 fL 82.0-98.0 MEAN CORPUSCULAR HEMOGLOBIN (BEAKER) (test 32.4 pg 27.0-33.0 edyq=403) MEAN CORPUSCULAR HEMOGLOBIN CONC (BEAKER) (test 32.6 GM/DL 32.0-36.0 mlwa=560) RED CELL DISTRIBUTION WIDTH (BEAKER) (test 13.6 % 10.3-14.2 fyvc=809) PLATELET COUNT (BEAKER) (test zqcs=658) 46 K/CU MM 150-430 MEAN PLATELET VOLUME (BEAKER) (test xevn=199) 7.7 fL 6.5-10.5 NUCLEATED RED BLOOD CELLS (BEAKER) (test 0 /100 WBC 0-0 eknz=904) NEUTROPHILS RELATIVE PERCENT (BEAKER) (test 78 % ijti=946) LYMPHOCYTES RELATIVE PERCENT (BEAKER) (test 6 % oxlc=746) MONOCYTES RELATIVE PERCENT (BEAKER) (test 14 % pvdx=701) EOSINOPHILS RELATIVE PERCENT (BEAKER) (test 2 % slcj=805) BASOPHILS RELATIVE PERCENT (BEAKER) (test 0 % ecvk=047) NEUTROPHILS ABSOLUTE COUNT (BEAKER) (test 4.20 K/ L 1.80-8.00 qkdc=502) LYMPHOCYTES ABSOLUTE COUNT (BEAKER) (test 0.33 K/ L 1.48-4.50 lvxq=622) MONOCYTES ABSOLUTE COUNT (BEAKER) (test xyys=149) 0.74 K/ L 0.00-1.30 EOSINOPHILS ABSOLUTE COUNT (BEAKER) (test 0.09 K/ L 0.00-0.50 vcqs=977) BASOPHILS ABSOLUTE COUNT (BEAKER) (test aacu=228) 0.02 K/ L 0.00-0.20 0.00ANTI-NUCLEAR ANTIBODY (ANNEL)2016-09-08 15:18:00 Test Item Value Reference Range Comments ANTI-NUCLEAR ANTIBODY (ANNEL) (BEAKER) (test Negative Negative kxuj=788) EQUAL MIX, NORMAL [id number] 14:55:00 Test Item Value Reference Range Comments PROTIME (BEAKER) (test xmfn=838) 18.3 seconds 11.7-14.7 PARTIAL THROMBOPLASTIN TIME (BEAKER) (test 36.3 seconds 22.5-36.0 wvmt=631) PT 1/1 MIX (BEAKER) (test lczj=2084) 14.6 SECS 11.7-14.7 PTT 1/1 MIX (BEAKER) (test ivid=0292) 33.9 SECS 22.5-36.0 THROMBIN [id number] 14:55:00 Test Item Value Reference Range Comments THROMBIN TIME (BEAKER) (test tegz=825) 17.4 secs 13.8-20.0 IMMUNOFIXATION ELECTROPHORESIS (TEJAL)2016-09-08 13:53:00 Test Item Value Reference Range Comments IMMUNOGLOBULIN G (IGG) (BEAKER) 2100 mg/dL 540-1822 (test yuse=177) IMMUNOGLOBULIN A (IGA) (BEAKER) 450 mg/dL 63-484 (test yzyw=941) IMMUNOGLOBULIN M (IGM) (BEAKER) 126 mg/dL 22-293 (test ndyy=383) SERUM TEJAL ID (BEAKER) (test No monoclonal bands detected. mtie=7197) Polyclonal distribution of normal immunoglobulins. [id number] ([facility]) Carolina Mahan MD (test kkng=5465) (electronic signature) PROTEIN ELECTROPHORESIS, [id number] 13:27:00 Test Item Value Reference Range Comments ALBUMIN FRACTION (BEAKER) 3.2 g/dL 3.5-5.5 (test zgmq=420) ALPHA 1 FRACTION (BEAKER) 0.3 g/dL 0.2-0.4 (test vhqs=692) ALPHA 2 FRACTION (BEAKER) 0.5 g/dL 0.5-0.9 (test uvoa=351) BETA FRACTION (BEAKER) (test 1.0 g/dL 0.6-1.1 fena=685) GAMMA GLOBULIN FRACTION 2.0 g/dL 0.7-1.7 (BEAKER) (test qmws=234) INTERPRETATION-119 (BEAKER) Slight polyclonal increase in (test bewa=4921) gamma globulins, suggesting chronic inflammatory state. No monoclonal bands detected. [id number] Carolina Mahan MD (BEAKER) (test esqk=9541) (electronic signature) PROTEIN TOTAL SERUM, SPEP 7.0 gm/dL 6.0-8.3 (BEAKER) (test acmd=5080) POCT-GLUCOSE [id number] 12:17:00 Test Item Value Reference Range Comments POC-GLUCOSE METER (BEAKER) 117 mg/dL 70-110 TESTED AT [facility] [address], [place] (test sjvh=3654) [facility] [address] CARDIOLIPIN ANTIBODIES, IGG AND [id number] 12:04:00 Test Item Value Reference Range Comments ANTICARDIOLIPIN IGG ANTIBODY (BEAKER) (test < GPL xpio=116) ANTICARDIOLIPIN IGM ANTIBODY (BEAKER) (test 0.9 MPL psnw=708) Anticardiolipin IgG Result Interpretation: NEG: <20 GPL; U/ml POS: & gt;/=20 GPL; U/mlAnticardiolipin IgM Result Interpretation: NEG: <20 MPL ; U/ml POS: >/=20 MPL; U/mlOSMOLALITY, [id number] 10:20:00 Test Item Value Reference Range Comments OSMOLALITY URINE (BEAKER) (test osyn=074) 313 mOsm/kg 40-1400 EOSINOPHIL SMEAR, [id number] 10:10:00 Test Item Value Reference Range Comments EOSINOPHIL SMEAR, URINE (BEAKER) Rare EOS=less than 5% WBCs No EOS seen (test eato=5116) seen are EOS CREATININE, RANDOM [id number] 08:12:00 Test Item Value Reference Range Comments CREATININE URINE (BEAKER) (test lzmm=122) 136.1 mg/dL Reference Range: No NormalsPROTEIN, RANDOM [id number] 08:12:00 Test Item Value Reference Range Comments PROTEIN, URINE (BEAKER) (test ezzr=8804) 157 mg/dL 0-14 SODIUM, RANDOM [id number] 08:12:00 Test Item Value Reference Range Comments SODIUM URINE (BEAKER) (test gddo=914) 53 meq/L Reference Range: No NormalsURINALYSIS W/ [id number] 08:12:00 Test Item Value Reference Range Comments COLOR (BEAKER) (test ivkt=564) Light Yellow CLARITY (BEAKER) (test qyje=226) Hazy SPECIFIC GRAVITY UA (BEAKER) (test aeiu=983) 1.005 1.001-1.035 PH UA (BEAKER) (test dpsd=974) 5.0 5.0-8.0 PROTEIN UA (BEAKER) (test flpw=490) Negative Negative GLUCOSE UA (BEAKER) (test oybi=050) 70 mg/dL Negative KETONES UA (BEAKER) (test eoza=402) Negative Negative BILIRUBIN UA (BEAKER) (test sozs=748) Negative Negative BLOOD UA (BEAKER) (test fsko=486) Large Negative NITRITE UA (BEAKER) (test frex=751) Negative Negative LEUKOCYTE ESTERASE UA (BEAKER) (test jhpw=409) Trace Negative UROBILINOGEN UA (BEAKER) (test nufn=882) 0.2 mg/dL 0.2-1.0 RBC UA (BEAKER) (test fdvl=831) > /HPF WBC UA (BEAKER) (test sxaf=520) 117 /HPF HYALINE CASTS (BEAKER) (test onri=207) 32 /LPF YEAST (BEAKER) (test aumw=5298) Many SOURCE(BEAKER) (test lpko=8532) BASIC METABOLIC [id number] 04:45:00 Test Item Value Reference Range Comments SODIUM (BEAKER) (test 133 meq/L 136-145 wgze=545) POTASSIUM (BEAKER) (test 5.0 meq/L 3.5-5.1 mynu=440) CHLORIDE (BEAKER) (test 99 meq/L 98-107 szlb=299) CO2 (BEAKER) (test 23 meq/L 22-29 sbns=391) BLOOD UREA NITROGEN 44 mg/dL 7-21 (BEAKER) (test noth=254) CREATININE (BEAKER) (test 2.91 mg/dL 0.57-1.25 yavz=440) GLUCOSE RANDOM (BEAKER) 98 mg/dL 70-105 (test odpv=218) CALCIUM (BEAKER) (test 8.3 mg/dL 8.4-10.2 fojq=310) EGFR (BEAKER) (test mL/min/1.73 sq m INSUFFICIENT CLINICAL DATA tgio=1748) TO CALCULATE ESTIMATED GFR. PROTHROMBIN [id number] 04:30:00 Test Item Value Reference Range Comments PROTIME (BEAKER) (test grzk=883) 21.7 seconds 11.7-14.7 INR (BEAKER) (test knyw=878) 1.9 <=5.9 RECOMMENDED COUMADIN/WARFARIN INR THERAPY RANGESSTANDARD DOSE: 2.0 - 3.0 Includes: PROPHYLAXIS forvenous thrombosis, systemic embolization; TREATMENT for venous thrombosis and/or pulmonary embolus.HIGH RISK: Target INR is 2.5-3.5 for patients with mechanical heart valves.[id number] 04:30:00 Test Item Value Reference Range Comments PARTIAL THROMBOPLASTIN TIME (BEAKER) (test 35.9 seconds 22.5-36.0 gokw=424) [id number] 04:30:00 Test Item Value Reference Range Comments FIBRINOGEN LEVEL (BEAKER) (test dsnb=515) 216 mg/dl 225-434 CBC W/PLT COUNT & AUTO [id number] 04:29:00 Test Item Value Reference Range Comments WHITE BLOOD CELL COUNT (BEAKER) (test zkmi=671) 4.9 K/ L 4.0-10.0 RED BLOOD CELL COUNT (BEAKER) (test jzuw=856) 3.05 M/ L 4.20-5.80 HEMOGLOBIN (BEAKER) (test rabk=652) 10.0 GM/DL 13.0-16.8 HEMATOCRIT (BEAKER) (test cvqt=807) 30.8 % 40.0-50.0 MEAN CORPUSCULAR VOLUME (BEAKER) (test pgad=325) 101.0 fL 82.0-98.0 MEAN CORPUSCULAR HEMOGLOBIN (BEAKER) (test 32.7 pg 27.0-33.0 pcpm=075) MEAN CORPUSCULAR HEMOGLOBIN CONC (BEAKER) (test 32.4 GM/DL 32.0-36.0 ovax=499) RED CELL DISTRIBUTION WIDTH (BEAKER) (test 14.3 % 10.3-14.2 rpmu=240) PLATELET COUNT (BEAKER) (test rwqo=409) 13 K/CU MM 150-430 MEAN PLATELET VOLUME (BEAKER) (test phdp=307) 11.2 fL 6.5-10.5 NUCLEATED RED BLOOD CELLS (BEAKER) (test 0 /100 WBC 0-0 djql=805) NEUTROPHILS RELATIVE PERCENT (BEAKER) (test 75 % bbrj=024) LYMPHOCYTES RELATIVE PERCENT (BEAKER) (test 8 % criw=145) MONOCYTES RELATIVE PERCENT (BEAKER) (test 14 % tarn=388) EOSINOPHILS RELATIVE PERCENT (BEAKER) (test 3 % ocgh=231) BASOPHILS RELATIVE PERCENT (BEAKER) (test 0 % nbsi=230) NEUTROPHILS ABSOLUTE COUNT (BEAKER) (test 3.66 K/ L 1.80-8.00 fprx=319) LYMPHOCYTES ABSOLUTE COUNT (BEAKER) (test 0.41 K/ L 1.48-4.50 rlxu=034) MONOCYTES ABSOLUTE COUNT (BEAKER) (test glpr=499) 0.70 K/ L 0.00-1.30 EOSINOPHILS ABSOLUTE COUNT (BEAKER) (test 0.13 K/ L 0.00-0.50 cntu=043) BASOPHILS ABSOLUTE COUNT (BEAKER) (test gbza=719) 0.01 K/ L 0.00-0.20 0.00HEPATITIS A ANTIBODY, [id number] 01:44:00 Test Item Value Reference Range Comments HEPATITIS A IGG ANTIBODY (BEAKER) (test cmqr=0343) Reactive Nonreactive HEPATITIS B SURFACE [id number] 01:41:00 Test Item Value Reference Range Comments HEPATITIS B SURFACE ANTIGEN (2) (BEAKER) (test Nonreactive Nonreactive gdim=4072) HEPATITIS B SURFACE [id number] 01:41:00 Test Item Value Reference Range Comments HEPATITIS B SURFACE ANTIBODY (BEAKER) (test 205.5 mIU/mL <8.0 ebyd=194) HEPATITIS C [id number] 01:41:00 Test Item Value Reference Range Comments HEPATITIS C ANTIBODY (BEAKER) (test lsbd=784) Nonreactive Nonreactive HIV-1 ANTIGEN WITH HIV-1/2 [id number] 01:41:00 Test Item Value Reference Range Comments HIV-1 ANTIGEN WITH HIV 1\T\2 ANTIBODY (2) Nonreactive Nonreactive (BEAKER) (test xfni=8897) POCT-GLUCOSE [id number] 22:22:00 Test Item Value Reference Range Comments POC-GLUCOSE METER (BEAKER) 106 mg/dL 70-110 TESTED AT [facility] [address], [place] (test mbjm=7132) [facility] [address] CBC W/PLT COUNT & AUTO [id number] 18:31:00 Test Item Value Reference Range Comments WHITE BLOOD CELL COUNT (BEAKER) (test smco=923) 5.4 K/ L 4.0-10.0 RED BLOOD CELL COUNT (BEAKER) (test qcec=673) 3.16 M/ L 4.20-5.80 HEMOGLOBIN (BEAKER) (test mnpn=015) 10.3 GM/DL 13.0-16.8 HEMATOCRIT (BEAKER) (test ajxi=342) 32.1 % 40.0-50.0 MEAN CORPUSCULAR VOLUME (BEAKER) (test hmee=989) 102.0 fL 82.0-98.0 MEAN CORPUSCULAR HEMOGLOBIN (BEAKER) (test 32.5 pg 27.0-33.0 zfea=569) MEAN CORPUSCULAR HEMOGLOBIN CONC (BEAKER) (test 32.0 GM/DL 32.0-36.0 eqpi=010) RED CELL DISTRIBUTION WIDTH (BEAKER) (test 14.2 % 10.3-14.2 obju=132) PLATELET COUNT (BEAKER) (test abfe=622) 26 K/CU MM 150-430 MEAN PLATELET VOLUME (BEAKER) (test wltc=950) 8.7 fL 6.5-10.5 NUCLEATED RED BLOOD CELLS (BEAKER) (test 0 /100 WBC 0-0 djhx=964) NEUTROPHILS RELATIVE PERCENT (BEAKER) (test 81 % rfyx=472) LYMPHOCYTES RELATIVE PERCENT (BEAKER) (test 5 % dtto=992) MONOCYTES RELATIVE PERCENT (BEAKER) (test 11 % kmyc=833) EOSINOPHILS RELATIVE PERCENT (BEAKER) (test 3 % szhr=736) BASOPHILS RELATIVE PERCENT (BEAKER) (test 0 % vrtu=005) NEUTROPHILS ABSOLUTE COUNT (BEAKER) (test 4.37 K/ L 1.80-8.00 cmcn=769) LYMPHOCYTES ABSOLUTE COUNT (BEAKER) (test 0.29 K/ L 1.48-4.50 uixg=420) MONOCYTES ABSOLUTE COUNT (BEAKER) (test rnmf=427) 0.60 K/ L 0.00-1.30 EOSINOPHILS ABSOLUTE COUNT (BEAKER) (test 0.15 K/ L 0.00-0.50 unmo=448) BASOPHILS ABSOLUTE COUNT (BEAKER) (test ymrf=530) 0.01 K/ L 0.00-0.20 0.00POCT-GLUCOSE [id number] 18:27:00 Test Item Value Reference Range Comments POC-GLUCOSE METER (BEAKER) 112 mg/dL 70-110 TESTED AT [facility] [address], [place] (test pnmj=4174) [facility] [address] HEPATIC FUNCTION [id number] 16:29:00 Test Item Value Reference Range Comments TOTAL PROTEIN (BEAKER) (test irvz=914) 7.7 gm/dL 6.0-8.3 ALBUMIN (BEAKER) (test hiuw=0260) 3.2 g/dL 3.5-5.0 BILIRUBIN TOTAL (BEAKER) (test djzw=666) 1.0 mg/dL 0.2-1.2 BILIRUBIN DIRECT (BEAKER) (test wdri=420) 0.7 mg/dL 0.1-0.5 ALKALINE PHOSPHATASE (BEAKER) (test cvyk=802) 148 U/L 40-150 AST (SGOT) (BEAKER) (test ijrh=476) 26 U/L 5-34 ALT (SGPT) (BEAKER) (test azqn=291) 12 U/L 6-55 CBC (HEMOGRAM ONLY)2016-09-07 15:34:00 Test Item Value Reference Range Comments WHITE BLOOD CELL COUNT (BEAKER) (test cmqb=728) 4.3 K/ L 4.0-10.0 RED BLOOD CELL COUNT (BEAKER) (test quvx=034) 3.26 M/ L 4.20-5.80 HEMOGLOBIN (BEAKER) (test fogz=950) 10.5 GM/DL 13.0-16.8 HEMATOCRIT (BEAKER) (test blnk=961) 33.0 % 40.0-50.0 MEAN CORPUSCULAR VOLUME (BEAKER) (test edpt=119) 102.0 fL 82.0-98.0 MEAN CORPUSCULAR HEMOGLOBIN (BEAKER) (test 32.3 pg 27.0-33.0 eedi=831) MEAN CORPUSCULAR HEMOGLOBIN CONC (BEAKER) (test 31.8 GM/DL 32.0-36.0 szhy=882) RED CELL DISTRIBUTION WIDTH (BEAKER) (test 13.7 % 10.3-14.2 terc=263) PLATELET COUNT (BEAKER) (test smqy=347) 9 K/CU MM 150-430 MEAN PLATELET VOLUME (BEAKER) (test rvws=337) 12.6 fL 6.5-10.5 NUCLEATED RED BLOOD CELLS (BEAKER) (test 0 /100 WBC 0-0 avzi=331) [id number] 14:58:00 Test Item Value Reference Range Comments PROSTATE SPECIFIC ANTIGEN (BEAKER) (test jhja=883) 0.2 ng/mL 0.0-4.0 CHLORIDE, RANDOM [id number] 14:10:00 Test Item Value Reference Range Comments CHLORIDE URINE (BEAKER) (test ihtg=949) 27 meq/L Reference Range: No NormalsCREATININE, RANDOM [id number] 14:10:00 Test Item Value Reference Range Comments CREATININE URINE (BEAKER) (test faqq=730) 192.5 mg/dL Reference Range: No NormalsPROTEIN, RANDOM [id number] 14:10:00 Test Item Value Reference Range Comments PROTEIN, URINE (BEAKER) (test vabk=2031) 72 mg/dL 0-14 SODIUM, RANDOM [id number] 14:10:00 Test Item Value Reference Range Comments SODIUM URINE (BEAKER) (test hlup=101) 28 meq/L Reference Range: No NormalsOSMOLALITY, [id number] 13:51:00 Test Item Value Reference Range Comments OSMOLALITY URINE (BEAKER) (test jtyr=580) 307 mOsm/kg 40-1400 [id number] 05:52:00 Test Item Value Reference Range Comments FERRITIN (BEAKER) (test kaao=350) 159 ng/mL 5-275 Effective 05/09/2014: Reference Range ChangeNew: Male 5-275 Previous: Male 22-322 Female 5-275 Female 10-291VITAMIN B12 AND [id number] 05:52:00 Test Item Value Reference Range Comments VITAMIN B12 (BEAKER) (test fvvx=593) 1060 pg/mL 213-816 FOLATE (BEAKER) (test wgxl=067) 6.4 ng/mL >=7.0 Effective 05/09/2014: Folate Reference Range ChangeNew: >=7.0 Previous: & gt;=5.4IRON, TIBC, % SAT. (WITHOUT FERRITIN)2016-09-07 05:28:00 Test Item Value Reference Range Comments IRON (BEAKER) (test dgzb=344) 48 ug/dL 40-160 TOTAL IRON BINDING CAPACITY (BEAKER) (test 340 ug/dL 250-450 tckl=913) IRON % SATURATION (2) (BEAKER) (test dmbm=6446) 14 % 20-55 BASIC METABOLIC [id number] 04:51:00 Test Item Value Reference Range Comments SODIUM (BEAKER) (test 135 meq/L 136-145 csyq=058) POTASSIUM (BEAKER) (test 5.3 meq/L 3.5-5.1 vwte=765) CHLORIDE (BEAKER) (test 101 meq/L 98-107 kgmi=883) CO2 (BEAKER) (test 23 meq/L 22-29 fdoc=008) BLOOD UREA NITROGEN 38 mg/dL 7-21 (BEAKER) (test crnq=384) CREATININE (BEAKER) (test 2.76 mg/dL 0.57-1.25 ailh=087) GLUCOSE RANDOM (BEAKER) 109 mg/dL 70-105 (test crnz=112) CALCIUM (BEAKER) (test 8.2 mg/dL 8.4-10.2 bhpe=973) EGFR (BEAKER) (test mL/min/1.73 sq m INSUFFICIENT CLINICAL DATA bbmu=2345) TO CALCULATE ESTIMATED GFR. CBC W/PLT COUNT & AUTO [id number] 04:28:00 Test Item Value Reference Range Comments WHITE BLOOD CELL COUNT (BEAKER) (test llpe=930) 4.6 K/ L 4.0-10.0 RED BLOOD CELL COUNT (BEAKER) (test oslt=405) 3.08 M/ L 4.20-5.80 HEMOGLOBIN (BEAKER) (test anxb=926) 10.0 GM/DL 13.0-16.8 HEMATOCRIT (BEAKER) (test ouyz=170) 31.4 % 40.0-50.0 MEAN CORPUSCULAR VOLUME (BEAKER) (test dpkh=705) 102.0 fL 82.0-98.0 MEAN CORPUSCULAR HEMOGLOBIN (BEAKER) (test 32.5 pg 27.0-33.0 kewn=892) MEAN CORPUSCULAR HEMOGLOBIN CONC (BEAKER) (test 31.9 GM/DL 32.0-36.0 bmop=778) RED CELL DISTRIBUTION WIDTH (BEAKER) (test 13.6 % 10.3-14.2 csqc=206) PLATELET COUNT (BEAKER) (test dxxe=249) 12 K/CU MM 150-430 MEAN PLATELET VOLUME (BEAKER) (test qgpc=320) 11.8 fL 6.5-10.5 NUCLEATED RED BLOOD CELLS (BEAKER) (test 0 /100 WBC 0-0 jhpf=175) NEUTROPHILS RELATIVE PERCENT (BEAKER) (test 70 % vzmm=788) LYMPHOCYTES RELATIVE PERCENT (BEAKER) (test 11 % yqgn=406) MONOCYTES RELATIVE PERCENT (BEAKER) (test 15 % dhfa=477) EOSINOPHILS RELATIVE PERCENT (BEAKER) (test 4 % whwi=468) BASOPHILS RELATIVE PERCENT (BEAKER) (test 0 % mokm=775) NEUTROPHILS ABSOLUTE COUNT (BEAKER) (test 3.19 K/ L 1.80-8.00 whej=366) LYMPHOCYTES ABSOLUTE COUNT (BEAKER) (test 0.49 K/ L 1.48-4.50 amtf=925) MONOCYTES ABSOLUTE COUNT (BEAKER) (test vxhp=360) 0.70 K/ L 0.00-1.30 EOSINOPHILS ABSOLUTE COUNT (BEAKER) (test 0.17 K/ L 0.00-0.50 qcox=571) BASOPHILS ABSOLUTE COUNT (BEAKER) (test rwzc=574) 0.00 K/ L 0.00-0.20 0.00PROTHROMBIN [id number] 04:16:00 Test Item Value Reference Range Comments PROTIME (BEAKER) (test dspv=855) 20.8 seconds 11.7-14.7 INR (BEAKER) (test vugf=588) 1.8 <=5.9 RECOMMENDED COUMADIN/WARFARIN INR THERAPY RANGESSTANDARD DOSE: 2.0 - 3.0 Includes: PROPHYLAXIS forvenous thrombosis, systemic embolization; TREATMENT for venous thrombosis and/or pulmonary embolus.HIGH RISK: Target INR is 2.5-3.5 for patients with mechanical heart valves.[id number] 04:16:00 Test Item Value Reference Range Comments PARTIAL THROMBOPLASTIN TIME (BEAKER) (test 39.2 seconds 22.5-36.0 yeaf=377) VITAMIN B12 AND [id number] 16:41:00 Test Item Value Reference Range Comments VITAMIN B12 (BEAKER) (test yyzs=670) 860 pg/mL 213-816 FOLATE (BEAKER) (test sccl=476) 8.0 ng/mL >=7.0 Effective 05/09/2014: Folate Reference Range ChangeNew: >=7.0 Previous: & gt;=[id number] 15:47:00 Test Item Value Reference Range Comments FERRITIN (BEAKER) (test pflt=681) 148 ng/mL 5-275 Effective 05/09/2014: Reference Range ChangeNew: Male 5-275 Previous: Male 22-322 Female 5-275 Female 10-291HEPATITIS B [id number] 14:54:00 Test Item Value Reference Range Comments HEPATITIS B CORE TOTAL ANTIBODY (BEAKER) (test Nonreactive Nonreactive vnuv=947) HEPATITIS B SURFACE ANTIBODY (BEAKER) (test < mIU/mL <8.0 ebdd=182) HEPATITIS B SURFACE ANTIGEN (2) (BEAKER) (test Nonreactive Nonreactive hkbx=4696) HEPATITIS C [id number] 14:14:00 Test Item Value Reference Range Comments HEPATITIS C ANTIBODY (BEAKER) (test klhp=596) Nonreactive Nonreactive HIV-1 ANTIGEN WITH HIV-1/2 [id number] 13:54:00 Test Item Value Reference Range Comments HIV-1 ANTIGEN WITH HIV 1\T\2 ANTIBODY (2) Nonreactive Nonreactive (BEAKER) (test pzgm=5280) [id number] 13:39:00 Test Item Value Reference Range Comments D-DIMER QUANTITATIVE (BEAKER) (test qkqn=300) 8.70 MG/L FEU <0.50 Intended Use: The [...] exclusion of thrombosis is within 95-100% range.URIC [id number] 13:31:00 Test Item Value Reference Range Comments URIC ACID (BEAKER) (test qhtg=254) 10.2 mg/dL 2.6-7.2 LACTATE DEHYDROGENASE (LDH)2016-09-06 13:31:00 Test Item Value Reference Range Comments LACTATE DEHYDROGENASE (BEAKER) (test naco=680) 199 U/L 125-220 [id number] 13:30:00 Test Item Value Reference Range Comments FIBRINOGEN LEVEL (BEAKER) (test vwsi=567) 281 mg/dl 225-434 RAPID DRUG SCREEN, [id number] 12:15:00 Test Item Value Reference Range Comments BARBITURATE URINE (BEAKER) (test jkoq=329) Negative Negative BENZODIAZEPINE SCREEN URINE (BEAKER) (test Negative Negative kgzo=402) COCAINE (METAB.) SCREEN (BEAKER) (test kvvd=2172) Negative Negative METHADONE SCREEN (BEAKER) (test jtkn=0037) Negative Negative OPIATE SCREEN URINE (BEAKER) (test rfuh=138) Positive Negative CANNABINOID SCREEN URINE (BEAKER) (test uwek=002) Negative Negative AMPH/METHAMPH SCREEN (BEAKER) (test gpya=8304) Negative Negative PHENCYCLIDINE SCREEN URINE (BEAKER) (test patm=362) Negative Negative OXYCODONE SCREEN URINE (BEAKER) (test nsje=2152) Negative Negative DRUG CUTOFF CONC.Cocaine 300 ng/mL Cannabinoid 50 ng/mL Benzodiazepine 200 ng/mLBarbiturate 200 ng/ mLPhencyclidine 25 ng/mLOpiate 300 ng/mLMethadone 300 ng/mLAmphetamine/ 1000 ng/mL MethamphetamineOxycodone 300 ng/mLURINALYSIS W/ [id number] 11:30:00 Test Item Value Reference Range Comments COLOR (BEAKER) (test ecxa=798) Yellow CLARITY (BEAKER) (test bcvo=759) Hazy SPECIFIC GRAVITY UA (BEAKER) (test owxa=434) 1.011 1.001-1.035 PH UA (BEAKER) (test arqc=078) 5.0 5.0-8.0 PROTEIN UA (BEAKER) (test rbul=665) 70 mg/dL Negative GLUCOSE UA (BEAKER) (test sgpt=994) Negative Negative KETONES UA (BEAKER) (test zjhq=364) Negative Negative BILIRUBIN UA (BEAKER) (test kgre=592) Negative Negative BLOOD UA (BEAKER) (test ayxs=153) Negative Negative NITRITE UA (BEAKER) (test qvev=473) Negative Negative LEUKOCYTE ESTERASE UA (BEAKER) (test lzhe=373) Negative Negative UROBILINOGEN UA (BEAKER) (test sont=439) 2.0 mg/dL 0.2-1.0 RBC UA (BEAKER) (test gnml=344) < /HPF WBC UA (BEAKER) (test cihg=466) 2 /HPF BACTERIA (BEAKER) (test spsu=980) Occasional MUCUS (BEAKER) (test sgpr=5226) Rare SQUAMOUS EPITHELIAL (BEAKER) (test fdop=912) 1 /HPF HYALINE CASTS (BEAKER) (test izvn=115) 135 /LPF CASTS (BEAKER) (test ptpm=9400) 8 /LPF SOURCE(BEAKER) (test pldv=9280) Urine, Voided PLATELET [id number] 09:02:00 Test Item Value Reference Range Comments PLATELET COUNT (BEAKER) (test bndi=648) 11 K/CU MM 150-430 POCT-GLUCOSE [id number] 08:00:00 Test Item Value Reference Range Comments POC-GLUCOSE METER (BEAKER) 92 mg/dL 70-110 TESTED AT [facility] [address] [place] (test yidg=3057) [facility] [address] CBC W/PLT COUNT & AUTO [id number] 07:24:00 Test Item Value Reference Range Comments WHITE BLOOD CELL COUNT (BEAKER) (test crqf=422) 5.2 K/ L 4.0-10.0 RED BLOOD CELL COUNT (BEAKER) (test gorj=065) 3.48 M/ L 4.20-5.80 HEMOGLOBIN (BEAKER) (test edju=623) 10.8 GM/DL 13.0-16.8 HEMATOCRIT (BEAKER) (test jgwj=095) 34.6 % 40.0-50.0 MEAN CORPUSCULAR VOLUME (BEAKER) (test sdup=163) 99.4 fL 82.0-98.0 MEAN CORPUSCULAR HEMOGLOBIN (BEAKER) (test 30.9 pg 27.0-33.0 prac=087) MEAN CORPUSCULAR HEMOGLOBIN CONC (BEAKER) (test 31.1 GM/DL 32.0-36.0 qghs=750) RED CELL DISTRIBUTION WIDTH (BEAKER) (test 14.3 % 10.3-14.2 urfq=625) PLATELET COUNT (BEAKER) (test lbxy=340) 9 K/CU MM 150-430 MEAN PLATELET VOLUME (BEAKER) (test tyvb=769) 10.7 fL 6.5-10.5 NUCLEATED RED BLOOD CELLS (BEAKER) (test 0 /100 WBC 0-0 batx=669) NEUTROPHILS RELATIVE PERCENT (BEAKER) (test 76 % ubxg=456) LYMPHOCYTES RELATIVE PERCENT (BEAKER) (test 8 % nqxw=587) MONOCYTES RELATIVE PERCENT (BEAKER) (test 13 % nbes=488) EOSINOPHILS RELATIVE PERCENT (BEAKER) (test 3 % yehm=165) BASOPHILS RELATIVE PERCENT (BEAKER) (test 0 % egqw=276) NEUTROPHILS ABSOLUTE COUNT (BEAKER) (test 3.95 K/ L 1.80-8.00 tpxq=269) LYMPHOCYTES ABSOLUTE COUNT (BEAKER) (test 0.42 K/ L 1.48-4.50 ykmr=081) MONOCYTES ABSOLUTE COUNT (BEAKER) (test ging=957) 0.67 K/ L 0.00-1.30 EOSINOPHILS ABSOLUTE COUNT (BEAKER) (test 0.14 K/ L 0.00-0.50 mzlz=049) BASOPHILS ABSOLUTE COUNT (BEAKER) (test qfau=534) 0.00 K/ L 0.00-0.20 0.00BASIC METABOLIC [id number] 06:16:00 Test Item Value Reference Range Comments SODIUM (BEAKER) (test 134 meq/L 136-145 xoec=622) POTASSIUM (BEAKER) (test 5.2 meq/L 3.5-5.1 wicl=716) CHLORIDE (BEAKER) (test 100 meq/L 98-107 uhob=254) CO2 (BEAKER) (test 24 meq/L 22-29 difn=614) BLOOD UREA NITROGEN 31 mg/dL 7-21 (BEAKER) (test jphw=409) CREATININE (BEAKER) (test 1.54 mg/dL 0.57-1.25 pbtu=382) GLUCOSE RANDOM (BEAKER) 99 mg/dL 70-105 (test plkk=030) CALCIUM (BEAKER) (test 8.7 mg/dL 8.4-10.2 vcru=103) EGFR (BEAKER) (test mL/min/1.73 sq m INSUFFICIENT CLINICAL DATA glrq=0733) TO CALCULATE ESTIMATED GFR. CREATINE KINASE (CK), TOTAL AND [id number] 06:14:00 Test Item Value Reference Range Comments CREATINE KINASE TOTAL (BEAKER) (test jfnc=044) 67 U/L 29-200 CREATINE KINASE-MB (BEAKER) (test fxsu=823) 1.9 ng/mL 0.0-6.6 CREATINE KINASE-MB INDEX (BEAKER) (test szut=038) 2.8 % Effective 05/09/2014: CK-MB Reference Range ChangeNew: 0.0-6.6 Previous: 0.0- 4.9CK-MB Reference Range:<6.7 Normal6.7-10.0 Borderline>10.0 AbnormalTROPONIN [id number] 06:14:00 Test Item Value Reference Range Comments TROPONIN I (BEAKER) (test detb=204) 0.02 ng/mL 0.00-0.03 Effective 05/09/2014: Reference Range [...] renalfailure, acidosis, acute neurological disease, and persistent tachyarrhythmia.[id number] 05:40:00 Test Item Value Reference Range Comments PARTIAL THROMBOPLASTIN TIME (BEAKER) (test 35.1 seconds 22.5-36.0 qlkz=975) PROTHROMBIN TIME/[id number] 05:39:00 Test Item Value Reference Range Comments PROTIME (BEAKER) (test fuka=440) 18.1 seconds 11.7-14.7 INR (BEAKER) (test lkwf=300) 1.5 <=5.9 RECOMMENDED COUMADIN/WARFARIN INR THERAPY RANGESSTANDARD DOSE: 2.0 - 3.0 Includes: PROPHYLAXIS forvenous thrombosis, systemic embolization; TREATMENT for venous thrombosis and/or pulmonary embolus.HIGH RISK: Target INR is 2.5-3.5 for patients with mechanical heart valves.T4, [id number] 03:16:00 Test Item Value Reference Range Comments FREE T4 (BEAKER) (test favf=082) 1.45 ng/dL 0.70-1.48 TSH/FREE T4 IF [id number] 02:21:00 Test Item Value Reference Range Comments THYROID STIMULATING HORMONE (BEAKER) (test 6.77 uIU/mL 0.35-4.94 swyi=042) CREATINE KINASE (CK), TOTAL AND [id number] 01:14:00 Test Item Value Reference Range Comments CREATINE KINASE TOTAL (BEAKER) (test gfxa=654) 76 U/L 29-200 CREATINE KINASE-MB (BEAKER) (test vbzo=739) 1.7 ng/mL 0.0-6.6 CREATINE KINASE-MB INDEX (BEAKER) (test lgpd=552) 2.2 % Effective 05/09/2014: CK-MB Reference Range ChangeNew: 0.0-6.6 Previous: 0.0- 4.9CK-MB Reference Range:<6.7 Normal6.7-10.0 Borderline>10.0 AbnormalTROPONIN [id number] 01:14:00 Test Item Value Reference Range Comments TROPONIN I (BEAKER) (test wldi=868) 0.02 ng/mL 0.00-0.03 Effective 05/09/2014: Reference Range [...] acidosis, acute neurological disease, and persistent tachyarrhythmia.LIPID [id number] 01:08 :00 Test Item Value Reference Range Comments TRIGLYCERIDES (BEAKER) (test frfh=585) 82 mg/dL CHOLESTEROL (BEAKER) (test ssou=574) 145 mg/dL HDL CHOLESTEROL (BEAKER) (test lnbq=981) 49 mg/dL LDL CHOLESTEROL CALCULATED (BEAKER) (test 80 mg/dL xngg=392) Triglyceride Reference Range: Low Risk <150 Borderline 150- 199 High Risk 200-499 Very High Risk >=500Cholesterol Reference Range: Low Risk <200 Borderline 200-239 High Risk > 240HDL Cholesterol Reference Range: Low Risk >=60 High Risk <40LDL Cholesterol Reference Range: Optimal <100 Near Optimal 100-129 Borderline 130-159 High 160-189 Very High >=190 Specimen slightly ictericDIGOXIN [id number] 18:22:00 Test Item Value Reference Range Comments DIGOXIN LEVEL (BEAKER) (test jbdx=516) 0.8 ng/mL 0.8-2.0 CREATINE KINASE (CK), TOTAL AND [id number] 17:51:00 Test Item Value Reference Range Comments CREATINE KINASE TOTAL (BEAKER) (test wmsi=995) 78 U/L 29-200 CREATINE KINASE-MB (BEAKER) (test ajue=504) 1.9 ng/mL 0.0-6.6 CREATINE KINASE-MB INDEX (BEAKER) (test chap=911) 2.4 % Effective 05/09/2014: CK-MB Reference Range ChangeNew: 0.0-6.6 Previous: 0.0- 4.9CK-MB Reference Range:<6.7 Normal6.7-10.0 Borderline>10.0 AbnormalTROPONIN [id number] 17:51:00 Test Item Value Reference Range Comments TROPONIN I (BEAKER) (test fmfe=654) 0.03 ng/mL 0.00-0.03 Effective 05/09/2014: Reference Range [...] NATRIURETIC PEPTIDE (BEAKER) (test 334 pg/mL 0-100 thhu=496) BASIC METABOLIC [id number] 17:49:00 Test Item Value Reference Range Comments SODIUM (BEAKER) (test 136 meq/L 136-145 dqvg=961) POTASSIUM (BEAKER) (test 5.4 meq/L 3.5-5.1 uxbn=475) CHLORIDE (BEAKER) (test 101 meq/L 98-107 pcpp=295) CO2 (BEAKER) (test 27 meq/L 22-29 uejb=874) BLOOD UREA NITROGEN 26 mg/dL 7-21 (BEAKER) (test hbdf=239) CREATININE (BEAKER) (test 1.10 mg/dL 0.57-1.25 ujhx=127) GLUCOSE RANDOM (BEAKER) 105 mg/dL 70-105 (test oira=928) CALCIUM (BEAKER) (test 8.9 mg/dL 8.4-10.2 bwcr=456) EGFR (BEAKER) (test mL/min/1.73 sq m INSUFFICIENT CLINICAL DATA bqex=1453) TO CALCULATE ESTIMATED GFR. [id number] 17:45:00 Test Item Value Reference Range Comments LIPASE (BEAKER) (test qojn=494) 43 U/L 8-78 ALT (SGPT)2016-09-05 17:45:00 Test Item Value Reference Range Comments ALT (SGPT) (BEAKER) (test absj=165) 14 U/L 6-55 AST (SGOT)2016-09-05 17:45:00 Test Item Value Reference Range Comments AST (SGOT) (BEAKER) (test gydf=262) 33 U/L 5-34 BILIRUBIN, ADULT [id number] 17:45:00 Test Item Value Reference Range Comments BILIRUBIN TOTAL (BEAKER) (test exil=358) 2.0 mg/dL 0.2-1.2 PROTHROMBIN TIME/[id number] 17:38:00 Test Item Value Reference Range Comments PROTIME (BEAKER) (test rfxt=824) 20.2 seconds 11.7-14.7 INR (BEAKER) (test irpe=822) 1.7 <=5.9 RECOMMENDED COUMADIN/WARFARIN INR THERAPY RANGESSTANDARD DOSE: 2.0 - 3.0 Includes: PROPHYLAXIS forvenous thrombosis, systemic embolization; TREATMENT for venous thrombosis and/or pulmonary embolus.HIGH RISK: Target INR is 2.5-3.5 for patients with mechanical heart valves.CBC W/PLT COUNT & AUTO [id number] 17:35:00 Test Item Value Reference Range Comments WHITE BLOOD CELL COUNT (BEAKER) (test abct=501) 5.9 K/ L 4.0-10.0 RED BLOOD CELL COUNT (BEAKER) (test jlec=149) 3.49 M/ L 4.20-5.80 HEMOGLOBIN (BEAKER) (test swzc=334) 11.2 GM/DL 13.0-16.8 HEMATOCRIT (BEAKER) (test uzrn=361) 34.4 % 40.0-50.0 MEAN CORPUSCULAR VOLUME (BEAKER) (test jutn=006) 98.8 fL 82.0-98.0 MEAN CORPUSCULAR HEMOGLOBIN (BEAKER) (test 32.2 pg 27.0-33.0 wqoi=283) MEAN CORPUSCULAR HEMOGLOBIN CONC (BEAKER) (test 32.6 GM/DL 32.0-36.0 lppu=030) RED CELL DISTRIBUTION WIDTH (BEAKER) (test 13.7 % 10.3-14.2 uren=200) PLATELET COUNT (BEAKER) (test ksek=632) 28 K/CU MM 150-430 MEAN PLATELET VOLUME (BEAKER) (test nslp=030) 9.0 fL 6.5-10.5 NUCLEATED RED BLOOD CELLS (BEAKER) (test 0 /100 WBC 0-0 nism=178) NEUTROPHILS RELATIVE PERCENT (BEAKER) (test 78 % jwyd=170) LYMPHOCYTES RELATIVE PERCENT (BEAKER) (test 8 % rqvl=226) MONOCYTES RELATIVE PERCENT (BEAKER) (test 10 % eulp=292) EOSINOPHILS RELATIVE PERCENT (BEAKER) (test 4 % qieh=153) BASOPHILS RELATIVE PERCENT (BEAKER) (test 0 % adta=065) NEUTROPHILS ABSOLUTE COUNT (BEAKER) (test 4.58 K/ L 1.80-8.00 wtmf=198) LYMPHOCYTES ABSOLUTE COUNT (BEAKER) (test 0.45 K/ L 1.48-4.50 zgpk=433) MONOCYTES ABSOLUTE COUNT (BEAKER) (test tnom=874) 0.61 K/ L 0.00-1.30 EOSINOPHILS ABSOLUTE COUNT (BEAKER) (test 0.23 K/ L 0.00-0.50 ameo=673) BASOPHILS ABSOLUTE COUNT (BEAKER) (test crgs=057) 0.02 K/ L 0.00-0.20 0.00
[2018-01-01 17:10] LABS: Protime INR 1.23
[2018-01-01 17:11] LABS: Absolute Lymphocytes (CBC) 0.3 K/uL (0.7-4.9); Absolute Monocytes 0.7 K/uL (0.1-1.3); Absolute Neutrophil 4.6 K/uL (1.8-8.0); Basophils % 0.2 % (0-1.3); Eosinophils % 1.1 % (0-4.4); Hematocrit 27.2 % (39.6-49.0); MCV 93.6 fL (80-100); MPV 8.5 fL (7.6-11.3); Monocytes % 12.4 % (3.3-12.3); RBC Red Blood Cell Count 2.91 M/uL (4.33-5.43)
[2018-01-01 17:34] LABS: Albumin 3.1 g/dL (3.4-5.0); Bilirubin Direct 0.5 mg/dL (0-0.2); Bilirubin Total 0.9 mg/dL (0.2-1.0); Protein, Total 9.6 g/dL (6.4-8.2)
[2018-01-01 17:36] LABS: Potassium 5.6 mmol/L (3.5-5.1)
--- NOTE | 2018-01-01 18:13 | ER ---
Nurse's Notes [facility] Name: Gatito Gunn Age: 57 yrs Sex: Male : 1960 Arrival Date: 01/01/2018 Time: 16:21 Bed 2 Private MD: None, None Diagnosis: Biliary cirrhosis, unspecified;Ascites;Shortness of breath;Hypoxia Presentation: 01/01 16:22 Presenting complaint: Patient states: SOB x 2 week ago, symptoms became worse over the aa5 last week. Pt denies pain, denies cough, denies chills/fever. Pt reports last paracentesis was approximately 20 days ago. 16:22 Acuity: LAURO 1 aa5 16:25 Transition of care: patient was not received from another setting of care. Onset of aa5 symptoms was 2017. Risk Assessment: Do you want to hurt yourself or someone else? Patient reports no desire to harm self or others. Care prior to arrival: None. 16:25 Method Of Arrival: Wheelchair aa5 19:08 Initial Sepsis Screen: Does the patient meet any 2 criteria? No. Patient's initial ae1 sepsis screen is negative. Does the patient have a suspected source of infection? No. Patient's initial sepsis screen is negative. Triage Assessment: 17:34 General: Appears uncomfortable. Respiratory: Reports shortness of breath air hunger ae1 labored breathing. 19:08 Respiratory: Onset: The symptoms/episode began/occurred gradually, the patient has ae1 moderate shortness of breath. Historical: - Allergies: 16:25 No Known Allergies; aa5 - PMHx: 16:25 liver failure; Renal Disease; aa5 - PSHx: 16:25 CABG; aa5 - Immunization history:: Adult Immunizations up to date. - Social history:: Smoking status: Patient/guardian denies using tobacco. - Ebola Screening: : Patient denies travel to an Ebola-affected area in the 21 days before illness onset No symptoms or risks identified at this time. Screenin:34 Abuse screen: Denies threats or abuse. Nutritional screening: No deficits noted. ae1 Tuberculosis screening: No symptoms or risk factors identified. 19:08 Fall Risk None identified. ae1 Assessment: 17:02 General: Appears uncomfortable, obese, unkempt, Behavior is cooperative, anxious. Pain: ae1 Denies pain. Neuro: Level of Consciousness is awake, alert, obeys commands, Oriented to person, place, time, situation. Cardiovascular: Heart tones S1 S2 present skin is warm. Rhythm is regular. Respiratory: Airway is patent Respiratory effort is labored, with retractions, shallow, Respiratory pattern is regular, tachypnea Breath sounds are diminished bilaterally. Breath sounds with wheezes bilaterally. GI: Abdomen is round distended, obese, Bowel sounds diminished in right upper quadrant, left upper quadrant, right lower quadrant and left lower quadrant. : No signs and/or symptoms were reported regarding the genitourinary system. EENT: No signs and/or symptoms were reported regarding the EENT system. Derm: Various scaly, reddened. dry lesions to ADALI arms, head. Musculoskeletal: No signs and/or symptoms reported regarding the musculoskeletal system. 18:30 Reassessment: Consent signed. ae1 19:23 Reassessment: Patient tolerated procedure well. Abdomen is visibly smaller and softer ae1 upon palpation. 19:24 Reassessment: Patient appears in no apparent distress at this time. Patient and/or aa1 family updated on plan of care and expected duration. Pain level reassessed. Pt reports he is is feeling much better after paracentesis Patient states feeling better. Neuro: Level of Consciousness is awake, alert, obeys commands. Respiratory: Airway is patent Respiratory effort is even, unlabored, shallow, Respiratory pattern is symmetrical, tachypnea. GI: Abdomen is noted to have ascites. Derm: Skin is intact, Skin is dry, Skin temperature is warm. 19:52 Reassessment: Patient appears in no apparent distress at this time. No changes from aa1 previously documented assessment. Patient and/or family updated on plan of care and expected duration. Pain level reassessed. Attempted to call report to 4th floor, was told by charge nurse that he has not informed the nurse that they will be receiving the pt and will have them call back momentarily. 20:03 Reassessment: Report given to Evie on 4th floor. aa1 20:51 Reassessment: Patient appears in no apparent distress at this time. No changes from aa1 previously documented assessment. Total of 7 liters drainage from paracentesis in ED. Vital Signs: 16:22 Pulse Ox 75% on R/A; aa5 16:23 Pulse Ox 92% on Non-rebreather mask; aa5 16:50 BP 132 / 76; Pulse 97; Resp 26; Pulse Ox 76% on R/A; ae1 16:50 Temp 98(A); ae1 17:32 BP 137 / 81; Pulse 96; Resp 22; Pulse Ox 99% on Non-rebreather mask; ae1 19:24 BP 130 / 76; Pulse 92; Resp 20; Temp 97.7; Pulse Ox 93% on Non-rebreather mask; aa1 19:49 BP 121 / 84; Pulse 93; Resp 20; Pulse Ox 96% on Non-rebreather mask; aa1 20:45 BP 113 / 72; Pulse 85; Resp 20; Pulse Ox 96% on Non-rebreather mask; aa1 ED Course: 16:21 Patient arrived in ED. sb2 16:21 None, None is Private Physician. sb2 16:22 Arm band placed on Patient placed in an exam room, on a stretcher. aa5 16:22 Patient has correct armband on for positive identification. Placed in gown. Bed in low aa5 position. Call light in reach. Side rails up X2. teletypesetter monitor on. Pulse ox on. NIBP on. 16:35 Inserted saline lock: 22 gauge in right forearm, using aseptic technique. aa5 16:42 Chaka Crane MD is Attending Physician. kdr 16:49 Nickolas Nguyen RN is Primary Nurse. ae1 17:01 Triage completed. aa5 18:10 Richelle Lockhart MD is Hospitalizing Provider. kdr 19:07 Paracentesis. ae1 19:16 X-ray completed. Portable x-ray completed in exam room. Patient tolerated procedure bb2 well. 20:53 Patient admitted, IV remains in place. aa1 Administered Medications: No medications were administered Intake: 20:54 from paracentesis aa1 Output: 20:54 Drainage: 7000ml; Total: 7000ml. aa1 20:54 from paracentesis aa1 Outcome: 18:12 Decision to Hospitalize by Provider. kdr 20:53 Admitted to Med/surg aa1 20:53 Condition: stable 20:53 Instructed on the need for admit, Demonstrated understanding of instructions. 20:55 Patient left the ED. aa1 Signatures: Lenore Adamson RN RN aa1 Chaka Crane MD MD kdr Grazyna Govea RN RN aa5 Nickolas Nguyen RN RN ae1 Karina Jackson bb2 Fanta Dye sb2 Corrections: (The following items were deleted from the chart) : 16:25 Presenting complaint: Patient states: SOB x 2 week ago, symptoms became worse aa5 over the last week. Pt denies pain, denies cough, denies chills/fever. Pt reports last paracentesis was approximately 20 days ago. aa5 17: 16:25 Acuity: LAURO 1 aa5 aa5
--- NOTE | 2018-01-01 18:13 | EDPHYS ---
Physician Documentation [facility] Name: Gatito Gunn Age: 57 yrs Sex: Male : 1960 Arrival Date: 01/01/2018 Time: 16:21 Bed 2 Private MD: None, None ED Physician Chaka Crane HPI: 01/01 16:47 This 57 yrs old Male presents to ER via Unassigned with complaints of kdr Abdominal pain/swelling \T\ Shortness Of Breath. 16:47 The patient has shortness of breath at rest. Onset: The symptoms/episode began/occurred kdr gradually, 1 week(s) ago. Duration: The symptoms are continuous, and are steadily getting worse. The patient's shortness of breath is aggravated by exertion, light activity, walking. Associated signs and symptoms: Pertinent positives: Pertinent negatives: chest pain, non-productive cough, productive cough, diaphoresis, dizziness, fever, hemoptysis, loss of consciousness, nausea, numbness in extremities, visual changes, vomiting. Severity of symptoms: At their worst the symptoms were moderate severe just prior to arrival, incapacitating in the emergency department the symptoms are unchanged. 20 days ago he had his last paracentesis. The patient has not recently seen a physician. Historical: - Allergies: 16:25 No Known Allergies; aa5 - PMHx: 16:25 liver failure; Renal Disease; aa5 - PSHx: 16:25 CABG; aa5 - Immunization history:: Adult Immunizations up to date. - Social history:: Smoking status: Patient/guardian denies using tobacco. - Ebola Screening: : Patient denies travel to an Ebola-affected area in the 21 days before illness onset No symptoms or risks identified at this time. ROS: 16:47 Constitutional: Negative for fever, chills, and weight loss, Eyes: Negative for injury, kdr pain, redness, and discharge, Neck: Negative for injury, pain, and swelling, Cardiovascular: Negative for chest pain, palpitations, and edema, Back: Negative for injury and pain, : Negative for injury, bleeding, discharge, and swelling, MS/Extremity: Negative for injury and deformity, Skin: Negative for injury, rash, and discoloration, Neuro: Negative for headache, weakness, numbness, tingling, and seizure activity. Psych: Negative for depression, anxiety, suicide ideation, homicidal ideation, and hallucinations, Allergy/Immunology: Negative for hives, rash, and allergies, Endocrine: Negative for neck swelling, polydipsia, polyuria, polyphagia, and marked weight changes, Hematologic/Lymphatic: Negative for swollen nodes, abnormal bleeding, and unusual bruising. 16:47 Respiratory: Positive for dyspnea on exertion, shortness of breath, Negative for hemoptysis, orthopnea, pleurisy, sputum production, wheezing. 16:47 Abdomen/GI: Positive for abdominal pain, abdominal distension, Negative for black/tarry stool, rectal pain, rectal bleeding. Exam: 16:47 Constitutional: This is a well developed, well nourished patient who is awake, alert, kdr and mild to moderate distress. Head/Face: Normocephalic, atraumatic. Eyes: Pupils equal round and reactive to light, extra-ocular motions intact. Lids and lashes normal. Conjunctiva and sclera are non-icteric and not injected. Cornea within normal limits. Periorbital areas with no swelling, redness, or edema. Neck: Trachea midline, no thyromegaly or masses palpated, and no cervical lymphadenopathy. Supple, full range of motion without nuchal rigidity, or vertebral point tenderness. No Meningismus. Chest/axilla: Normal chest wall appearance and motion. Nontender with no deformity. No lesions are appreciated. Cardiovascular: Regular rate and rhythm with a normal S1 and S2. No gallops, murmurs, or rubs. Normal PMI, no JVD. No pulse deficits. Back: No spinal tenderness. No costovertebral tenderness. Full range of motion. Skin: Warm, dry with normal turgor. Normal color with no rashes, no lesions, and no evidence of cellulitis. MS/ Extremity: Pulses equal, no cyanosis. Neurovascular intact. Full, normal range of motion. Neuro: Awake and alert, GCS 15, oriented to person, place, time, and situation. Cranial nerves II-XII grossly intact. Motor strength 5/5 in all extremities. Sensory grossly intact. Cerebellar exam normal. Normal gait. Psych: Awake, alert, with orientation to person, place and time. Behavior, mood, and affect are within normal limits. 16:47 Respiratory: mild respiratory distress is noted, Respirations: labored breathing, Breath sounds: rales, bronchial sounds, that are mild, are scattered, are heard diffusely. 16:47 Abdomen/GI: Inspection: distension, that is severe, Bowel sounds: active, all quadrants, diminished, Palpation: mild abdominal tenderness, involuntary guarding, is elicited in all quadrants. Vital Signs: 16:22 Pulse Ox 75% on R/A; aa5 16:23 Pulse Ox 92% on Non-rebreather mask; aa5 16:50 BP 132 / 76; Pulse 97; Resp 26; Pulse Ox 76% on R/A; ae1 16:50 Temp 98(A); ae1 17:32 BP 137 / 81; Pulse 96; Resp 22; Pulse Ox 99% on Non-rebreather mask; ae1 19:24 BP 130 / 76; Pulse 92; Resp 20; Temp 97.7; Pulse Ox 93% on Non-rebreather mask; aa1 19:49 BP 121 / 84; Pulse 93; Resp 20; Pulse Ox 96% on Non-rebreather mask; aa1 20:45 BP 113 / 72; Pulse 85; Resp 20; Pulse Ox 96% on Non-rebreather mask; aa1 MDM: 16:47 Data reviewed: vital signs, nurses notes, lab test result(s), radiologic studies. kdr 18:12 Patient medically screened. [facility] 01/01 16:43 Order name: Basic Metabolic Panel; Complete Time: 17:49 [facility] 01/01 16:43 Order name: CBC with Diff; Complete Time: 17:49 [facility] 01/01 16:43 Order name: Creatinine for Radiology; Complete Time: 17:49 [facility] 01/01 16:43 Order name: Hepatic Function; Complete Time: 17:49 [facility] 01/01 16:43 Order name: Lipase; Complete Time: 17:49 [facility] 01/01 16:43 Order name: Urine Microscopic Only [facility] 01/01 16:43 Order name: IV Saline Lock; Complete Time: 16:59 [facility] 01/01 16:43 Order name: Labs collected and sent; Complete Time: 16:59 [facility] 01/01 16:43 Order name: Urine Dipstick-Ancillary (obtain specimen); Complete Time: 19:10 [facility] 01/01 16:43 Order name: PT-INR; Complete Time: 17:49 [facility] 01/01 18:18 Order name: Chest Single View [facility]CO 01/01 19:21 Order name: Urine Dipstick--Ancillary (enter results) ms 01/01 20:10 Order name: Urine Dipstick-Ancillary EDMS Administered Medications: No medications were administered Disposition: 01/01/18 18:12 Hospitalization ordered by Richelle Lockhart for Inpatient Admission. Preliminary diagnosis are Biliary cirrhosis, unspecified, Ascites, Shortness of breath, Hypoxia. - Bed requested for Telemetry/MedSurg (Inpatient). - Status is Inpatient Admission. aa1 - Condition is Fair. - Problem is an acute exacerbation. - Symptoms are unchanged. UTI on Admission? No Signatures: Dispatcher [employer] EDMS Alexus Murray RN RN Lenore Bah RN RN aa1 Chaka Crane MD MD kdr Calderon, Audri, RN RN aa5 Nickolas Nguyen RN RN ae1 Carolina Huang Corrections: (The following items were deleted from the chart) 18:36 18:12 Hospitalization Ordered by Richelle Lockhart MD for Inpatient Admission. Preliminary eb diagnosis is Biliary cirrhosis, unspecified; Ascites; Shortness of breath; Hypoxia. Bed requested for Telemetry/MedSurg (Inpatient). Status is Inpatient Admission. Condition is Fair. Problem is an acute exacerbation. Symptoms are unchanged. UTI on Admission? No. kdr 19:18 18:36 01/01/2018 18:12 Hospitalization Ordered by Richelle Lockhart MD for Inpatient kl Admission. Preliminary diagnosis is Biliary cirrhosis, unspecified; Ascites; Shortness of breath; Hypoxia. Bed requested for Telemetry/MedSurg (Inpatient). Status is Inpatient Admission. Condition is Fair. Problem is an acute exacerbation. Symptoms are unchanged. UTI on Admission? No. eb 20:55 19:18 01/01/2018 18:12 Hospitalization Ordered by Richelle Lockhart MD for Inpatient aa1 Admission. Preliminary diagnosis is Biliary cirrhosis, unspecified; Ascites; Shortness of breath; Hypoxia. Bed requested for Telemetry/MedSurg (Inpatient). Status is Inpatient Admission. Condition is Fair. Problem is an acute exacerbation. Symptoms are unchanged. UTI on Admission? No. kl
--- NOTE | 2018-01-01 18:24 | P.HP ---
Certification for Inpatient Patient admitted to: Inpatient With expected LOS: >2 Midnights Patient will require the following post-hospital care: None Practitioner: I am a practitioner with admitting privileges, knowledge of patient current condition, hospital course, and medical plan of care. Services: Services provided to patient in accordance with Admission requirements found in Title 42 Section 412.3 of the Code of Federal Regulations Patient History Date of Service: 01/03/18 Primary Care Provider: OOT Reason for admission: SOB History of Present Illness: 57-year-old male with PMHX of COPD, obstructive sleep apnea, atrial fibrillation on chronic anti coagulation therapy, alcoholic cirrhosis, thrombocytopenia, alcohol abuse, hypertension, CHF and ascites requiring paracentesis who presented to the emergency room with multiple complaints including fatigue, shortness of breath, edema, and ascites that started over the period of 2 weeks. Pt states he was in his general state of health and started noticing that his abdomen was getting big again. Pt states he has not been drinking recently. Patient uses home oxygen at 2L at home. It did not help with SOB and thus he decided to come to the ER. Pt denies having any fever, Nausea, chills or CP at this time. He does however mention that he has been getting chills and more tremors now then usual. He was recently admission at the [facility] and was discharged home after 3 weeks. Pt states he has been compliant with medication however at bedside states he might not be taking all his medication. There is a h/o Noncompliance as well. Pt has multiple hospital visit to [facility] as well. Pt at bedside states she usually bounces back from the acute illness. In the Er pt was found to have large Ascites causing Respiratory distress and thus was referred for admission for further care. Allergies No Known Drug Allergies Allergy (Verified 06/08/17 09:19) Unknown No Known Allergies Allergy (Uncoded 09/05/16 16:15) Unknown Home Medications: Atorvastatin Calcium [Lipitor] 20 mg PO BEDTIME 01/02/18 Bumetanide [Bumex] 1 mg PO DAILY 01/02/18 Carvedilol [Coreg] 12.5 mg PO BID 01/02/18 Lactulose 10 gm PO 01/02/18 Levothyroxine [Synthroid] 125 mcg PO [id number] 01/02/18 Midodrine HCl 10 mg PO TID 01/02/18 Pantoprazole [Protonix Tab] 40 mg PO DAILY 01/02/18 Spironolactone [Aldactone] 25 mg PO DAILY 01/02/18 Trazodone [Desyrel] 50 mg PO BEDTIME 01/02/18 Warfarin Sodium [Coumadin] 3 mg PO DAILY 5 PM 01/02/18 - Past Medical/Surgical History Diabetic: No -: CHF, systolic dysfunction, ejection fraction 41% -: CAD history of CABG -: Atrial fibrillation, chronic anti coagulation therapy-Coumadin -: COPD with home oxygen -: Hypothyroidism -: Hypertension -: Obesity -: Alcohol abuse -: Pacemaker/Defibrillator placement -: Alcoholic cirrhosis -: Anemia of chronic disease -: Obstructive sleep apnea -: CABG -: Pacemaker/Defib Psychosocial/ Personal History: The patient is . He has children. He does not work. - Family History Father -: Diabetes - Social History Alcohol use: Yes CD- Drugs: No Caffeine use: Yes Review of Systems General: As per HPI Physical Examination - Physical Exam General: Alert, Oriented x3, Moderate distress HEENT: Atraumatic, Scleral icterus Neck: Supple, JVD distended Respiratory: Normal air movement, Crackles/rales Cardiovascular: Normal S1 S2, Irregular heart rate/rhythm, Systolic murmur Gastrointestinal: Normal bowel sounds, Distended, Succussion splash, Ascites, Tenderness Musculoskeletal: No tenderness, Swelling Integumentary: Rash(es) Neurological: Normal speech, Normal strength at 5/5 x4 extr, Normal tone Lymphatics: No axilla or inguinal lymphadenopathy - Studies Laboratory Data (last 24 hrs) 01/01/18 16:40: PT 14.5 H, INR 1.23 01/01/18 16:40: Creatinine 1.60 H 01/01/18 16:40: WBC 5.6, Hgb 8.7 L, Hct 27.2 L, Plt Count 104 L 01/01/18 16:40: Sodium 131 L, Potassium 5.6 H*, BUN 45 H, Creatinine 1.60 H, Glucose 109 H, Total Bilirubin 0.9, AST 30, ALT 15, Alkaline Phosphatase 144 H, Lipase 213 Assessment and Plan - Problems (Diagnosis) (1) Dyspnea Onset Date: 09/04/14 Current Visit: No Status: Resolved Plan: Dyspnea worsening since past 2 weeks. Most likely 2.2 to Volume overload and ascites -Paracentesis scheduled with Surgery today -Oxygen. Wean as tolerated. ABG -IV lasix for volume overload. Albumin for pressor support -Repeat Lab in AM Qualifiers: Dyspnea type: acute respiratory distress Qualified Code(s): R06.03 - Acute respiratory distress (2) Ascites Current Visit: Yes Status: Acute Plan: See # 1 Qualifiers: Ascites type: due to alcoholic cirrhosis Qualified Code(s): K70.31 - Alcoholic cirrhosis of liver with ascites (3) Alcoholic cirrhosis Onset Date: 08/17/17 Current Visit: No Status: Chronic Plan: Liver function test WNL -With Ascites. Scheduled for paracentesis for now Qualifiers: Ascites presence: with ascites Qualified Code(s): K70.31 - Alcoholic cirrhosis of liver with ascites (4) Atrial fibrillation Onset Date: 08/17/17 Current Visit: No Status: Chronic Plan: Restart home medication Qualifiers: Atrial fibrillation type: chronic Qualified Code(s): I48.2 - Chronic atrial fibrillation (5) CHF (congestive heart failure) Onset Date: 06/08/17 Current Visit: No Status: Chronic Plan: Restart home medication Qualifiers: Heart failure type: systolic Heart failure chronicity: chronic Qualified Code(s): I50.22 - Chronic systolic (congestive) heart failure (6) Hypothyroid Onset Date: 09/07/14 Current Visit: No Status: Chronic Plan: Restart home medication Qualifiers: Hypothyroidism type: acquired Qualified Code(s): E03.9 - Hypothyroidism, unspecified (7) COPD (chronic obstructive pulmonary disease) Onset Date: 06/08/17 Current Visit: No Status: Chronic Plan: Restart home medication Qualifiers: COPD type: chronic bronchitis Chronic bronchitis type: mixed simple and mucopurulent Qualified Code(s): J41.8 - Mixed simple and mucopurulent chronic bronchitis (8) GERD (gastroesophageal reflux disease) Onset Date: 08/17/17 Current Visit: No Status: Chronic Plan: Restart home medication Qualifiers: Esophagitis presence: without esophagitis Qualified Code(s): K21.9 - Gastro -esophageal reflux disease without esophagitis (9) Hypertension Onset Date: 09/07/14 Current Visit: No Status: Chronic Plan: Restart home medication Qualifiers: Hypertension type: essential hypertension Qualified Code(s): I10 - Essential (primary) hypertension (10) History of automatic internal cardiac defibrillator (AICD) Current Visit: No Status: Chronic Discharge Plan: Other Plan to discharge in: 48 Hours - Advance Directives Does patient have a Living Will: No Does patient have a Durable POA for Healthcare: No - Code Status/Comfort Care Code Status Assessed: Yes Critical Care: No
--- NOTE | 2018-01-01 19:06 | P.OP ---
Preoperative diagnosis: Tense Ascites Postoperative diagnosis: Tense Ascites Primary procedure: Abdominal Paracentesis Anesthesia: Local 1% lidocaine Estimated blood loss: <1cc Specimen: none Findings: yellow non-bloody tap Complications: None Drain(s): Other (paracentesis 8fr catheter used) Transferred to: Other (ER) Condition: Good
[2018-01-01 19:27] LABS: Urine Bacteria <20 /HPF (NONE SEEN)
[2018-01-01 19:28] LABS: Calcium Oxalate Crystals- Ur MANY (NONE SEEN); Urine Culture Reflex Order NOT NEEDED
--- NOTE | 2018-01-01 19:48 | RAD REPORT ---
EXAM DESCRIPTION: Margaret Single View01/01/2018 7:18 pm CLINICAL HISTORY: Shortness of breath COMPARISON: October 2017 FINDINGS: Mild bilateral pulmonary opacities are seen. The heart is markedly enlarged. Post surgical changes involve the chest. Pacemaker lead is in place IMPRESSION: Mild CHF
[2018-01-01 20:10] LABS: Urine Blood 2+ (NEG); Urine Glucose NEGATIVE (NEG); Urine Protein 2+ (NEG); Urine Specific Gravity >1.030 (1.005-1.030)
[2018-01-01] MEDS ORDERED: ACETAMINOPHEN 500 MG TAB PO PRN (20:34)
[2018-01-01] MEDS ORDERED: ALBUMIN HUMAN 25% 200 ML IV ONE (20:34)
--- NOTE | 2018-01-02 05:08 | OP ---
Date of Procedure: 01/01/2018 Surgeon: Stan Foster MD, Preoperative Diagnosis: Tense abdominal ascites. Postoperative Diagnosis: Tense abdominal ascites. Procedure Performed: Abdominal paracentesis. Anesthesia: Local 1% lidocaine used. Estimated Blood Loss: Less than 1 mL. Specimen: None. Findings: Yellow nonbloody tap. Complications: None. Drains: Paracentesis, 8-Guyanese catheter used. Disposition: Patient remained in the ER in good condition throughout the procedure. Procedure In Detail: After informed consent obtained, patient was prepped and draped in the usual st erile fashion. After adequate anesthesia achieved, the area of the right upper quadrant was ultrasou nd assessed and found to have a good open area away from the intestinal structures. I then appropria tely anesthetized the area after cleansing and prepping in the usual sterile manner. I then anesthet ized the entire tract until yellow nonbloody fluid was appreciated. I then made a small incision ove r this area and inserted the 8-Guyanese catheter using the Seldinger technique with the over needle shailesh hnique. The sheath was then introduced through the introducer sheath and the needle was immediately withdrawn. Upon entry into the abdominal compartment, yellow non-bloody fluid was noted to be apprec iated and the catheter was advanced quite easily into the abdominal compartment. The needle out was appreciated at this time and yellow nonbloody fluid was noted to be filling the bag, which was attach ed to the assembly. The catheter was then secured to the abdominal wall using a 2-0 Prolene suture i n a simple fashion. A sterile dressing was placed over the top. The patient tolerated the procedure without evidence of complications and remained in the ER in stable/good condition. All counts were correct at the end of the case. TK/MODL Voice ID: [id number] Report ID: [id number]
[2018-01-02 05:51] LABS: Absolute Lymphocytes (CBC) 0.3 K/uL (0.7-4.9); Absolute Monocytes 1.5 K/uL (0.1-1.3); Absolute Neutrophil 6.7 K/uL (1.8-8.0); Basophils % 0.1 % (0-1.3); Eosinophils % 0.2 % (0-4.4); Hematocrit 28.6 % (39.6-49.0); Lymphocytes % 3.3 % (15.3-44.8); MCH 30.6 pg (27.0-35.0); MCV 93.8 fL (80-100); Monocytes % 17.4 % (3.3-12.3); RBC Red Blood Cell Count 3.05 M/uL (4.33-5.43)
[2018-01-02 06:10] LABS: Bilirubin Total 0.8 mg/dL (0.2-1.0); Magnesium 2.9 mg/dL (1.8-2.4); Phosphorus 6.5 mg/dL (2.5-4.9); Protein, Total 8.8 g/dL (6.4-8.2)
[2018-01-02 06:13] LABS: Potassium 5.8 mmol/L (3.5-5.1)
[2018-01-02 06:17] LABS: Basophilic Stippling 2+; Blood Morphology Comment NOTED (NOT SEEN); Platelet Estimate ADEQ; Polychromasia 3+; Target Cells 1+
[2018-01-02] MEDS ORDERED: SOD POLYSTYREN SUL 15 GM/60 ML UCUP PO ONE (07:00)
[2018-01-02] MEDS ORDERED: NA CHLORIDE 0.9% 250 ML IV ONE ×2 (07:53→11:31)
[2018-01-02] MEDS ORDERED: ALBUMIN HUMAN 25% 100 ML IV ONE ×2 (07:53→11:08)
[2018-01-02] MEDS ORDERED: CEFTRIAXONE/SWI 1gm 1 GM/10 ML SYR IV SCH (09:00)
[2018-01-02] MEDS ORDERED: FUROSEMIDE 20 MG/ 2ML VIAL IV SCH (09:00)
[2018-01-02] MEDS ORDERED: CEFTRIAXONE 1 GM/NS 50 ML 1 GM/50 ML BAG IV SCH (09:00)
--- NOTE | 2018-01-02 09:11 | RAD REPORT ---
EXAM DESCRIPTION: RAD - Abdomen 1 View (KUB) - 01/02/2018 8:49 am CLINICAL HISTORY: Nasogastric tube placement COMPARISON: None. FINDINGS: Single view of the lower chest and upper abdomen shows NG tube is in place. Tip and side p ort are in the body of the stomach. Stomach is filled but not dilated by air. Prominent upper abdomin al bowel gas pattern seen. No free air. Defibrillator wires are in place. Radiopaque tubing in the le ft upper quadrant is only partially imaged. This cannot be further characterized. No suspicious calci fications. IMPRESSION: NG tube has been placed and is in good position.
[2018-01-02] MEDS ORDERED: Meropenem 500 MG in NA CHLORIDE 0.9% 100 ML IV SCH (10:30)
--- NOTE | 2018-01-02 10:44 | RAD REPORT ---
EXAM DESCRIPTION: CT - Head Brain Wo Cont - 01/02/2018 10:34 am CLINICAL HISTORY: Transient alteration of awareness. Loss of consciousness COMPARISON: None. TECHNIQUE: Axial 5 mm thick images of the head were obtained without IV contrast. All CT scans are performed using dose optimization technique as appropriate and may include automated exposure control or mA/KV adjustment according to patient size. FINDINGS: No intracranial hemorrhage, mass, edema or shift of mid-line structures. No acute infarcti on changes seen. No abnormal extra-axial fluid collections. Ventricles are normal. Mastoid air cells and visualized portions of the paranasal sinuses are clear. No acute bony findings. IMPRESSION: Negative non-contrast CT head examination.
[2018-01-02] MEDS: LACTULOSE 20 GM/30 ML UCUP PO PRN ×2 (10:50→20:19)
--- NOTE | 2018-01-02 10:50 | P.PN ---
Subjective Date of Service: 01/02/18 Primary Care Provider: KALBE Chief Complaint: SOB Pt seen and examined at bedside this AM. Pt appear to be more lethargic Today. He has been arousable but slow to respond. Currently had 11L drained from the abdomen Review of Systems General: As per HPI Physical Examination - Vital Signs Temperature: 97.9 F Blood Pressure: 101/56 Pulse: 94 Respirations: 20 Pulse Ox (%): 93 - Physical Exam General: In no apparent distress, Oriented x2, Cachectic, Other (Lethargic) HEENT: Atraumatic Neck: Supple, JVD distended Respiratory: Normal air movement, Crackles/rales Cardiovascular: Regular rate/rhythm, Normal S1 S2 Gastrointestinal: Normal bowel sounds, Soft and benign, Non-distended, No tenderness Musculoskeletal: No tenderness Integumentary: No rashes Neurological: Normal tone, Normal affect, Abnormal speech Lymphatics: No axilla or inguinal lymphadenopathy - Studies Laboratory Data (last 24 hrs) 01/01/18 16:40: PT 14.5 H, INR 1.23 01/01/18 16:40: Creatinine 1.60 H 01/01/18 16:40: WBC 5.6, Hgb 8.7 L, Hct 27.2 L, Plt Count 104 L 01/01/18 16:40: Sodium 131 L, Potassium 5.6 H*, BUN 45 H, Creatinine 1.60 H, Glucose 109 H, Total Bilirubin 0.9, AST 30, ALT 15, Alkaline Phosphatase 144 H, Lipase 213 Medications List Reviewed: Yes Assessment & Plan - Problems (Diagnosis) (1) Hepatic encephalopathy Current Visit: Yes Status: Acute Plan: Hepatic Encephalopathy with Ammonia of 88 and lethargy today -Lactulose scheduled for now -Restart home medication -Head CT and ABG ordered to r.o acute abnormality (2) Dyspnea Onset Date: 09/04/14 Current Visit: No Status: Resolved Plan: Dyspnea worsening since past 2 weeks. Most likely 2.2 to Volume overload and ascites. Still the same today -S/p Paracentesis Removed 11L -On Nonrebreather now. Wean as tolerated -IV lasix for now -Repeat Lab in AM Qualifiers: Dyspnea type: acute respiratory distress Qualified Code(s): R06.03 - Acute respiratory distress (3) Ascites Current Visit: Yes Status: Acute Plan: See # 1 Qualifiers: Ascites type: due to alcoholic cirrhosis Qualified Code(s): K70.31 - Alcoholic cirrhosis of liver with ascites (4) Alcoholic cirrhosis Onset Date: 08/17/17 Current Visit: No Status: Chronic Plan: Liver function test WNL -With Ascites. S/p Paracentesis now Qualifiers: Ascites presence: with ascites (5) Atrial fibrillation Onset Date: 08/17/17 Current Visit: No Status: Chronic Plan: Restart home medication -Coumadin for anticoagulation Qualifiers: Atrial fibrillation type: chronic Qualified Code(s): I48.2 - Chronic atrial fibrillation (6) CHF (congestive heart failure) Onset Date: 06/08/17 Current Visit: No Status: Chronic Plan: Restart home medication -IV lasix and Spironolactone Qualifiers: Heart failure type: systolic Heart failure chronicity: chronic Qualified Code(s): I50.22 - Chronic systolic (congestive) heart failure (7) Hypothyroid Onset Date: 09/07/14 Current Visit: No Status: Chronic Plan: Restart home medication Qualifiers: Hypothyroidism type: acquired Qualified Code(s): E03.9 - Hypothyroidism, unspecified (8) COPD (chronic obstructive pulmonary disease) Onset Date: 06/08/17 Current Visit: No Status: Chronic Plan: Restart home medication Qualifiers: COPD type: chronic bronchitis Chronic bronchitis type: mixed simple and mucopurulent Qualified Code(s): J41.8 - Mixed simple and mucopurulent chronic bronchitis (9) GERD (gastroesophageal reflux disease) Onset Date: 08/17/17 Current Visit: No Status: Chronic Plan: Restart home medication Qualifiers: Esophagitis presence: without esophagitis Qualified Code(s): K21.9 - Gastro -esophageal reflux disease without esophagitis (10) Hypertension Onset Date: 09/07/14 Current Visit: No Status: Chronic Plan: Restart home medication Qualifiers: Hypertension type: essential hypertension (11) History of automatic internal cardiac defibrillator (AICD) Current Visit: No Status: Chronic (12) Electrolyte abnormality Current Visit: Yes Status: Acute Plan: Hyponatermia - Resolved now Hyperkalemia - kaxelyate ordered Discharge Plan: Home Plan to discharge in: 48 Hours - Code Status/Comfort Care Code Status Assessed: Yes Critical Care: No
[2018-01-02] MEDS: MIDODRINE HCL 5 MG TABLET PO SCH ×2 (12:19→20:19)
[2018-01-02] MEDS: Meropenem 500 MG in NA CHLORIDE 0.9% 100 ML IV SCH ×2 (13:30→20:19)
[2018-01-02] MEDS: ONDANSETRON 4 MG/2 ML VIAL IV PRN (13:30)
[2018-01-02 13:38] LABS: Arterial Blood Carboxyhemoglob 2.3 % (0-1.5); Blood O2 Saturation 91.7 % (92-98.5)
[2018-01-02 13:38] LABS: Blood Gas Oxyhemoglobin 95.1 % (94-97); Blood O2 Saturation 97.6 % (92-98.5)
--- NOTE | 2018-01-02 15:24 | P.PN ---
Subjective Date of Service: 01/02/18 Primary Care Provider: KALEB Chief Complaint: SOB Subjective: No new changes (Patient continues to have respiratory comprimise, but has been hemodynamically stable.) Physical Examination - Vital Signs Temperature: 97.9 F Blood Pressure: 101/56 Pulse: 94 Respirations: 20 Pulse Ox (%): 93 - Physical Exam General: Alert, Cooperative Respiratory: Diminished Gastrointestinal: No ascites (Drain in place in abdomen, clamped) - Studies Laboratory Data (last 24 hrs) 01/01/18 16:40: PT 14.5 H, INR 1.23 01/01/18 16:40: Creatinine 1.60 H 01/01/18 16:40: WBC 5.6, Hgb 8.7 L, Hct 27.2 L, Plt Count 104 L 01/01/18 16:40: Sodium 131 L, Potassium 5.6 H*, BUN 45 H, Creatinine 1.60 H, Glucose 109 H, Total Bilirubin 0.9, AST 30, ALT 15, Alkaline Phosphatase 144 H, Lipase 213 Medications List Reviewed: Yes Assessment And Plan - Current Problems (Diagnosis) (1) Ascites Current Visit: Yes Status: Acute Qualifiers: Ascites type: due to alcoholic cirrhosis Qualified Code(s): K70.31 - Alcoholic cirrhosis of liver with ascites - Plan - Remove paracentesis drain today - place dressings over - continue medical management per Dr. Lockhart - call with any future needs
[2018-01-02 16:47] LABS: Arterial Blood Carboxyhemoglob 2.2 % (0-1.5); Blood Gas Oxyhemoglobin 96.1 % (94-97)
[2018-01-02] MEDS ORDERED: Meropenem 500 MG VIAL IV SCH (17:00)
[2018-01-02] MEDS: WARFARIN SODIUM 3 MG TAB PO SCH (18:01)
--- NOTE | 2018-01-02 19:36 | CON ---
Date of Consultation: 01/01/2018 Brief History Of Present Illness: The patient is a 57-year-old male with a history of cirrh osis and multiple paracentesis. His last paracentesis was approximately 9-10 L. He states he has reece d several of these performed up in the medical center as of the last week or two and continues to daniel ccumulate quite rapidly; however, the patient has no knowledge of discussion of TIPS procedure despit e his current medical condition and significant cirrhosis. He presents with large volume ascites and tense abdominal examination with tachypnea and difficulty breathing. He had desaturations to the 70 s after being on nasal cannula alone and as such he was placed on a simple facemask with significant symptomatic improvement. Therefore, I was consulted for placement of a semiemergent paracentesis for removal of fluid and improvement of his overall respiratory function. Past Medical History: Significant for cirrhosis, CHF with systolic dysfunction, ejection fraction of 41%, coronary artery disease, status post CABG, atrial fibrillation, on anticoagulation with Coumadi n, COPD, on home oxygen, hypothyroidism, hypertension, obesity, alcohol abuse. Past Surgical History: Includes pacemaker, defibrillator, CABG. Allergies: NO KNOWN DRUG ALLERGIES. Home Medications: Include levothyroxine, warfarin, Tylenol No. 3, Otezla, atorvastatin, azelastine, Bumex, carvedilol, Breo, Protonix, spironolactone, Zaleplon , Zenapax, Lanoxin, Desyrel, Brovana, [place] tyl, ferrous sulfate, Lasix, Atrovent, lactulose, Synthroid, Protonix, Aldactone, vitamin B1, Desyrel , and Levaquin. Review of Systems: Review of systems other than HPI, the patient denies. Physical Examination: Vital Signs: At the time of examination blood pressure was 113/72, pulse is 85, respiratory rate 20, temperature 96.9. He was on a simple facemask and comfortable and conversive during my examination. General: He is awake, alert, and oriented. Psychiatric: He answers questions appropriately. HEENT: He has increased external veins on his head. No JVD. Chest: He had decreased excursion and was using accessory muscles minimally. Abdomen: Quite distended and tense with positive fluid ascites. I used ultrasound to confirm the pr esence of ascites at the bedside as it was easily available. Laboratory Data: Revealed a white blood cell count of 5.6, hemoglobin is 8.7, hematocrit 27.2, plate let count is 104, neutrophils are 81%. His PT was 14.5, INR 1.2. His sodium 131, potassium 5.6, chl oride 190, carbon dioxide 37, BUN 45, creatinine 1.6, glucose was 109, calcium was 8.5, total bilirub in 0.9, direct component is 0.5, AST 30, ALT 15, alkaline phosphatase 144, lipase is 213. Assessment And Plan: This is a 57-year-old male who comes in with tense ascites and respiratory comp romise. 1.I have explained the risks, benefits, and alternatives of large volume paracentesis, including but not limited to bleeding, infection, damage to surrounding tissues including perforation of intestine s, need for further operations and procedures, hemodynamic instability and decompensation. 2.The patient will need albumin replacement as he will likely require large volume of fluid to be re moved if his history is true that he has had multiple 9+ L paracentesis, last one being approximately a week to week and half ago. 3.I have discussed the patient should be considered for TIPS when he resolves the more acute medical conditions he currently has and as such he will likely need to discuss this with someone in the [facility] to see if he is a good candidate for this particular procedure. I will place the procedur e at the bedside in the emergency room. JANE/MARIOLA Voice ID: [id number] Report ID: [id number]
[2018-01-02] MEDS: ATORVASTATIN 20 MG TAB PO SCH (20:18)
[2018-01-02 20:21] LABS: Urine Appearance CLOUDY; Urine Blood 2+ (NEG); Urine Color DK YELLOW; Urine Glucose NEGATIVE (NEG); Urine Protein 1+ (NEG); Urine Specific Gravity 1.015 (1.005-1.030)
--- NOTE | 2018-01-02 20:28 | RAD REPORT ---
EXAM DESCRIPTION: RAD - Chest Single View - 01/02/2018 7:11 pm CLINICAL HISTORY: Shortness of breath, decreased level of consciousness COMPARISON: January 01 TECHNIQUE: AP portable chest image was obtained 1859 hours . FINDINGS: Lung volumes are low. Patchy lung base opacification remains. Costophrenic angle blunting is still present. Prominent cardiac silhouette enlargement is again noted. Pacemaker in place. NG tub e is in good position in the stomach. Upper abdomen is limited in assessment. Defibrillator is in fela ce. No pneumothorax or enlargement of a pleural fluid collection. Left base remains limited in assess ment. No acute aortic findings suspected. IMPRESSION: Chest is not substantially different from the prior study.
[2018-01-02 21:17] LABS: Urine Bilirubin NEGATIVE (NEG); Urine Microscopic Reflex ORDER UMIC
[2018-01-02 21:23] LABS: Urine Amorphous Sediment TRACE /HPF (NONE SEEN); Urine Bacteria <20 /HPF (NONE SEEN); Urine Culture Reflex Order REFLEXED
[2018-01-02] MEDS: CARVEDILOL 12.5 MG TAB PO SCH (21:24)
[2018-01-02 21:34] LABS: Arterial Blood Carboxyhemoglob 2.5 % (0-1.5); Blood Gas Oxyhemoglobin 92.4 % (94-97); Blood O2 Saturation 95.3 % (92-98.5)
[2018-01-03] MEDS: ONDANSETRON 4 MG/2 ML VIAL IV PRN (03:02)
[2018-01-03] MEDS: LEVOTHYROXINE SOD 0.125 MG TAB PO SCH (05:23)
[2018-01-03 05:31] LABS: Absolute Lymphocytes (CBC) 0.2 K/uL (0.7-4.9); Absolute Neutrophil 8.4 K/uL (1.8-8.0); Basophils % 0.1 % (0-1.3); Eosinophils % 0.5 % (0-4.4); Hematocrit 29.6 % (39.6-49.0); Lymphocytes % 2.2 % (15.3-44.8); MCH 29.9 pg (27.0-35.0); MCV 92.5 fL (80-100); MPV 8.7 fL (7.6-11.3); Monocytes % 10.2 % (3.3-12.3)
[2018-01-03 05:34] LABS: Protime INR 1.29
[2018-01-03 05:53] LABS: Albumin 2.9 g/dL (3.4-5.0); Bilirubin Total 0.9 mg/dL (0.2-1.0); Magnesium 2.8 mg/dL (1.8-2.4); Phosphorus 5.5 mg/dL (2.5-4.9)
[2018-01-03 05:59] LABS: Potassium 5.6 mmol/L (3.5-5.1)
[2018-01-03 06:02] LABS: Arterial Blood Carboxyhemoglob 2.7 % (0-1.5)
[2018-01-03] MEDS ORDERED: PANTOPRAZOLE 40MG TABLET PO SCH (06:30)
[2018-01-03] MEDS: CARVEDILOL 12.5 MG TAB PO SCH (09:00)
[2018-01-03] MEDS ORDERED: BUMETANIDE 1 MG TABLET PO SCH (09:00)
[2018-01-03] MEDS ORDERED: FUROSEMIDE 20 MG/ 2ML VIAL IV SCH (09:00)
[2018-01-03] MEDS ORDERED: SPIRONOLACTONE 25 MG TABLET PO SCH (09:00)
[2018-01-03] MEDS: Meropenem 500 MG in NA CHLORIDE 0.9% 100 ML IV SCH ×2 (09:09→20:08)
[2018-01-03] MEDS: MIDODRINE HCL 5 MG TABLET PO SCH ×3 (09:09→20:08)
--- NOTE | 2018-01-03 13:18 | P.PN ---
Subjective Date of Service: 01/03/18 Primary Care Provider: KALEB Chief Complaint: SOB Pt seen and examined at bedside this AM. Chart reviewed. Currently patient is doing well. He is on BiPAP at this time. Is more alert and oriented this morning than yesterday. Patient's family is considering hospice at this time. Review of Systems General: As per HPI Physical Examination - Vital Signs Temperature: 97.5 F Blood Pressure: 91/76 Pulse: 72 Respirations: 18 Pulse Ox (%): 100 - Physical Exam General: Alert, Oriented x2, Mild distress HEENT: Atraumatic, PERRLA, EOMI Neck: Supple, JVD distended Respiratory: Normal air movement, Crackles/rales Cardiovascular: Regular rate/rhythm, Normal S1 S2 Gastrointestinal: Normal bowel sounds, Soft and benign, Non-distended, No tenderness Musculoskeletal: No tenderness Integumentary: Rash(es) (Porasis rash) Neurological: Normal speech, Normal tone, Normal affect Lymphatics: No axilla or inguinal lymphadenopathy - Studies Medications List Reviewed: Yes Assessment & Plan - Problems (Diagnosis) (1) Dyspnea Onset Date: 09/04/14 Current Visit: No Status: Resolved Plan: Acute hypercapnic Respiratory Failure. Most likely multifactorial -On BIPAP. Wean once CO2 normalized and tolerated -Pulmonology unavailable at this time Qualifiers: Dyspnea type: acute respiratory distress Qualified Code(s): R06.03 - Acute respiratory distress (2) Hepatorenal failure Current Visit: Yes Status: Acute Plan: Worsening BUN/CR. Most likely 2.2 to Hepatorenal vs Cardiorenal failure -Nephrology consulted. Awaiting Reccs -IV NS and Albumin (3) Hepatic encephalopathy Current Visit: Yes Status: Acute Plan: Hepatic Encephalopathy. Improved today -Lactulose scheduled for now -Hypercapnia also noted. BIPAP for now (4) Ascites Current Visit: Yes Status: Acute Plan: -S/p Paracentesis removed total of 11L -No complication noted. Qualifiers: Ascites type: due to alcoholic cirrhosis Qualified Code(s): K70.31 - Alcoholic cirrhosis of liver with ascites (5) Alcoholic cirrhosis Onset Date: 08/17/17 Current Visit: No Status: Chronic Plan: Liver function test WNL -With Ascites. S/p Paracentesis -Hospice Consulted Qualifiers: Ascites presence: with ascites (6) Atrial fibrillation Onset Date: 08/17/17 Current Visit: No Status: Chronic Plan: -Restart home medication -Coumadin for anticoagulation Qualifiers: Atrial fibrillation type: chronic Qualified Code(s): I48.2 - Chronic atrial fibrillation (7) CHF (congestive heart failure) Onset Date: 06/08/17 Current Visit: No Status: Chronic Plan: -Restart home medication -IV lasix and Spironolactone Qualifiers: Heart failure type: systolic Heart failure chronicity: chronic Qualified Code(s): I50.22 - Chronic systolic (congestive) heart failure (8) Hypothyroid Onset Date: 09/07/14 Current Visit: No Status: Chronic Plan: -Restart home medication Qualifiers: Hypothyroidism type: acquired Qualified Code(s): E03.9 - Hypothyroidism, unspecified (9) COPD (chronic obstructive pulmonary disease) Onset Date: 06/08/17 Current Visit: No Status: Chronic Plan: -Restart home medication Qualifiers: COPD type: chronic bronchitis Chronic bronchitis type: mixed simple and mucopurulent Qualified Code(s): J41.8 - Mixed simple and mucopurulent chronic bronchitis (10) GERD (gastroesophageal reflux disease) Onset Date: 08/17/17 Current Visit: No Status: Chronic Plan: -Restart home medication Qualifiers: Esophagitis presence: without esophagitis Qualified Code(s): K21.9 - Gastro -esophageal reflux disease without esophagitis (11) Hypertension Onset Date: 09/07/14 Current Visit: No Status: Chronic Plan: -Restart home medication Qualifiers: Hypertension type: essential hypertension (12) History of automatic internal cardiac defibrillator (AICD) Current Visit: No Status: Chronic (13) Electrolyte abnormality Current Visit: Yes Status: Acute Plan: Hyponatermia - Resolved now Hyperkalemia - kaxelyate ordered Discharge Plan: Home Plan to discharge in: 48 Hours - Code Status/Comfort Care Code Status Assessed: Yes Critical Care: No
[2018-01-03] MEDS ORDERED: SODIUM CHLORIDE 0.9% 10ML INJ IV PRN (13:33)
[2018-01-03] MEDS ORDERED: D50W 25 GM/50 ML SYRINGE IV PRN (13:50)
[2018-01-03] MEDS ORDERED: GLUCAGON 1 MG/VIAL IM PRN (13:50)
[2018-01-03] MEDS ORDERED: ALBUMIN HUMAN 25% 100 ML IV SCH (14:00)
[2018-01-03] MEDS ORDERED: NA CHLORIDE 0.9% 1,000 ML IV SCH (14:00)
[2018-01-03] MEDS ORDERED: INSULIN -REGULAR HUMAN 50 UNIT/0.5 ML ML IV ONE (14:15)
[2018-01-03 14:43] LABS: Urine Appearance CLOUDY; Urine Bilirubin NEGATIVE (NEG); Urine Blood 3+ (NEG); Urine Color YELLOW; Urine Glucose NEGATIVE (NEG); Urine Protein NEGATIVE (NEG)
[2018-01-03 14:45] LABS: Urine Microscopic Reflex ORDER UMIC
[2018-01-03 14:50] LABS: Urine Protein/Creatinine Ratio 0.3 ratio (<0.15)
[2018-01-03 14:51] LABS: Arterial Blood Carboxyhemoglob 2.6 % (0-1.5); Blood Gas Oxyhemoglobin 95.4 % (94-97); Blood O2 Saturation 98.3 % (92-98.5)
[2018-01-03] MEDS ORDERED: ALBUTEROL 2.5 MG/3 ML NEB SOL NEB ONE (15:00)
[2018-01-03] MEDS ORDERED: D50W 25 GM/50 ML SYRINGE IV ONE (15:00)
[2018-01-03] MEDS ORDERED: OCTREOTIDE ACETATE 100 MCG/ML SQ SCH (15:00)
[2018-01-03 15:06] LABS: Urine Culture Reflex Order NOT NEEDED
[2018-01-03 15:12] LABS: Urine Bacteria <20 /HPF (NONE SEEN); Urine Other Components FEW (NONE SEEN); Urine RBC 20-50 /HPF (NONE SEEN)
[2018-01-03] MEDS: FUROSEMIDE 100 MG in NA CHLORIDE 0.9% 90 ML IV SCH (17:04)
[2018-01-03] MEDS: WARFARIN SODIUM 3 MG TAB PO SCH (17:04)
--- NOTE | 2018-01-03 18:34 | CON ---
Date of Consultation: 01/03/2018 Additional Consulting Physician: Dr. Lockhart. Reason For Consultation: Elevated BUN and creatinine, fluid management. History Of Present Illness: This is a 57-year-old gentleman with significant past medical history of coronary artery disease, status post CABG complicated with congestive heart failure, cirrhosis secon viri to alcoholic liver, cirrhosis, congestive heart failure, ejection fraction of 40, alcohol abuse, hypertension, anemia, obstructive sleep apnea, atrial fibrillation status post ICD. The patient was in his regular state of health. Apparently, recently admitted to [facility] with hepatorenal, acute k idney injury, treated, recovered, intubated, extubated. The patient was in his regular state of heal th who was brought to the hospital because of ascites, had paracentesis with 11 L drain, after that t he patient developed low blood pressure and respiratory distress with hypercapnic respiratory failure . The patient was placed on BiPAP, start recovering. Creatinine started rising up for that reason, we have been consulted. The patient apparently been taking ibuprofen on a daily basis 1-2 tablet a d ay. Other than the hospitalization, mostly had some antibiotic at that time. No other incident. Allergies: NO KNOWN DRUG ALLERGIES. Past Medical History: Include: 1.Coronary artery disease status post CABG, complicated with congestive heart failure, systolic dysf unction, ejection fraction of 41. 2.Atrial fibrillation, status post ICD. 3.Hypothyroidism. 4.Obesity. 5.Obstructive sleep apnea. 6.Chronic kidney disease, baseline creatinine 1.7. 7.Cirrhosis secondary to alcohol. Family History: Positive for diabetes. Social History: Denies smoking. Active alcohol. Denies drug abuse. Review of Systems: Not obtainable. Physical Examination: Vital Signs: When I saw the patient, the patient was lying in bed, on BiPAP. Blood pressure of 91/7 6, pulse of 72, afebrile. Chest: Faint crackles bilateral base. Heart: S1, S2. Regular. Systolic murmur. Abdomen: Soft, nontender, ascites. Extremity: Trace edema. Venous stasis, bilateral wrinkling from residual edema. Neuro: Alert. Nonfocal. Has flapping tremor. Laboratory Data: WBC 9.7, H and H 9.5/29.6, platelets of 113. Sodium 134, potassium 5.6, bicarb 36, BUN 61, creatinine of 2, calcium 8.3, phosphor 5.5. On admission, his potassium was up to 5.6. On admission, creatinine was 1.6, currently 2. The patient back in October had acute kidney injury, creatin ine up to 4. Apparently his creatinine range around 1.5 with GFR around 30. TSH back in August,. Imaging: Chest x-ray, cardiomegaly with congestion. Assessment And Plan: Acute kidney injury. Unfortunately with confused the picture between hepatoren al/cardiorenal slightly look to me on the depletional volume side. I again give the patient the bene fit of doubt it. I am going to start the patient on fluid expansion, gentle normal saline at 50 per hour. Discontinue Lasix, start midodrine, simvastatin and albumin and we will follow up the patient. 1.The patient may progress of hepatorenal to require any dialysis. We will follow up depending on t he progress. I going to go ahead and send for full workup including serology, protein, creatinine an d renal ultrasound and we will follow up. 2.Hypertension, currently blood pressure on the lower side secondary to cirrhosis and congestive hea rt failure. Discontinue carvedilol, discontinue Lasix. We will start fluid expansion, and midodrine and we will follow up. 3.Cirrhosis. Status post paracentesis. We will follow up with the primary. 4.Hyperkalemia. Given the history of hypothyroidism, we will send for TSH. We will follow up. The patient already received Kayexalate. We will monitor. No EKG change. We will give him albuterol a nd D50. 5.Anemia. Given the hyperkalemia, we will send for full workup and send for fecal occult. Case discussed with Dr. Lockhart, agreed on the plan. Discussed with staff, agreed. Thank you, Dr. Lockhart for allowing us to participate in the care of your patient. NAVEED/MARIOLA Voice ID: [id number] Report ID: [id number]
[2018-01-03] MEDS: PANTOPRAZOLE 40 MG INJ IVP SCH (20:08)
[2018-01-03] MEDS: ATORVASTATIN 20 MG TAB PO SCH (20:08)
--- NOTE | 2018-01-03 20:42 | RAD REPORT ---
EXAM DESCRIPTION: US - Renal Ultrasound-Complete - 01/03/2018 8:07 pm CLINICAL HISTORY: . A 2 renal insufficiency COMPARISON: None. FINDINGS: The right kidney 11 measures cm with a normal echotexture. The left kidney 10 measures cm with a normal echotexture. Hydronephrosis is not seen. The bladder is decompressed. Ascites is seen IMPRESSION: Unremarkable renal ultrasound.
[2018-01-04] MEDS: FUROSEMIDE 100 MG in NA CHLORIDE 0.9% 90 ML IV SCH (03:45)
[2018-01-04 04:53] LABS: Arterial Blood Carboxyhemoglob 2.5 % (0-1.5); Blood Gas Oxyhemoglobin 92.2 % (94-97); Blood O2 Saturation 95.1 % (92-98.5)
[2018-01-04 05:02] LABS: Absolute Lymphocytes (CBC) 0.4 K/uL (0.7-4.9); Absolute Neutrophil 5.6 K/uL (1.8-8.0); Basophils % 0.3 % (0-1.3); Eosinophils % 1.2 % (0-4.4); Hematocrit 26.3 % (39.6-49.0); Lymphocytes % 5.7 % (15.3-44.8); MCH 29.7 pg (27.0-35.0); MCV 90.2 fL (80-100); MPV 8.1 fL (7.6-11.3); Monocytes % 13.8 % (3.3-12.3); RBC Red Blood Cell Count 2.92 M/uL (4.33-5.43)
[2018-01-04 05:36] LABS: ALT/SGPT 12 U/L (12-78); AST/SGOT 23 U/L (15-37); Albumin 2.5 g/dL (3.4-5.0); Alkaline Phosphatase 103 U/L (45-117); BUN Blood Urea Nitrogen 56 mg/dL (7-18); Bicarbonate 40 mmol/L (21-32); Bilirubin Total 0.7 mg/dL (0.2-1.0); Ferritin 60.6 ng/mL (26-388); Folic Acid, (Folate) > 20.0 ng/mL (3.1-17.5); Glucose Level 108 mg/dL (74-106); Magnesium 2.2 mg/dL (1.8-2.4); Potassium 4.5 mmol/L (3.5-5.1); Sodium Level 135 mmol/L (136-145); Transferrin 193 mg/dL (200-360)
[2018-01-04] MEDS: LEVOTHYROXINE SOD 0.125 MG TAB PO SCH (05:41)
[2018-01-04] MEDS: MIDODRINE HCL 5 MG TABLET PO SCH ×2 (09:20→20:56)
[2018-01-04] MEDS: Meropenem 500 MG in NA CHLORIDE 0.9% 100 ML IV SCH ×2 (09:20→20:56)
[2018-01-04] MEDS: PANTOPRAZOLE 40 MG INJ IVP SCH ×2 (09:21→20:43)
[2018-01-04] MEDS ORDERED: ACETAZOLAMIDE 500 MG IV IV ONE (10:01)
[2018-01-04] MEDS ORDERED: WATER FOR INJ,STERILE 10 ML IV ONE (10:01)
--- NOTE | 2018-01-04 10:31 | P.PN ---
Subjective Date of Service: 01/04/18 Primary Care Provider: KALEB Chief Complaint: SOB Pt seen and examined at bedside this AM. Chart reviewed. Currently patient is doing well. He is on BiPAP at this time. Is more alert and oriented this morning than yesterday. Patient's family is considering hospice at this time. Review of Systems General: As per HPI Physical Examination - Vital Signs Temperature: 98.8 F Blood Pressure: 109/49 Pulse: 68 Respirations: 28 Pulse Ox (%): 99 - Physical Exam General: Alert, Oriented x2, Mild distress HEENT: Atraumatic, PERRLA, EOMI Neck: Supple, JVD distended Respiratory: Normal air movement, Crackles/rales, Expiratory wheezes, Inspiratory wheezes Cardiovascular: Regular rate/rhythm, Normal S1 S2 Gastrointestinal: Normal bowel sounds, Soft and benign, Non-distended, No tenderness Musculoskeletal: No tenderness Integumentary: Rash(es) Neurological: Normal speech, Normal tone, Normal affect Lymphatics: No axilla or inguinal lymphadenopathy - Studies Medications List Reviewed: Yes Assessment & Plan - Problems (Diagnosis) (1) Hepatorenal failure Current Visit: Yes Status: Acute Plan: Worsening BUN/CR. Most likely 2.2 to Hepatorenal vs Cardiorenal failure -Nephrology consulted. Reccs appreciated -IV NS and Albumin (2) Hepatic encephalopathy Current Visit: Yes Status: Acute Plan: Hepatic Encephalopathy. Improved today -Lactulose scheduled for now -Hypercapnia also noted. BIPAP for now (3) Dyspnea Onset Date: 09/04/14 Current Visit: No Status: Resolved Plan: Acute hypercapnic Respiratory Failure. Most likely multifactorial -On BIPAP. Wean once CO2 normalized and tolerated -Pulmonology unavailable at this time Qualifiers: Dyspnea type: acute respiratory distress Qualified Code(s): R06.03 - Acute respiratory distress (4) Ascites Onset Date: 01/04/18 Current Visit: Yes Status: Acute Plan: -S/p Paracentesis removed total of 11L -No complication noted. Qualifiers: Ascites type: due to alcoholic cirrhosis Qualified Code(s): K70.31 - Alcoholic cirrhosis of liver with ascites (5) Alcoholic cirrhosis Onset Date: 01/04/18 Current Visit: Yes Status: Chronic Plan: Liver function test WNL -With Ascites. S/p Paracentesis -Hospice Consulted Qualifiers: Ascites presence: with ascites Qualified Code(s): K70.31 - Alcoholic cirrhosis of liver with ascites (6) Atrial fibrillation Onset Date: 01/04/18 Current Visit: Yes Status: Chronic Plan: Restart home medication Qualifiers: Atrial fibrillation type: chronic Qualified Code(s): I48.2 - Chronic atrial fibrillation (7) CHF (congestive heart failure) Onset Date: 06/08/17 Current Visit: No Status: Chronic Plan: Restart home medication Qualifiers: Heart failure type: systolic Heart failure chronicity: chronic Qualified Code(s): I50.22 - Chronic systolic (congestive) heart failure (8) Hypothyroid Current Visit: No Status: Chronic Plan: Restart home medication Qualifiers: Hypothyroidism type: acquired Qualified Code(s): E03.9 - Hypothyroidism, unspecified (9) COPD (chronic obstructive pulmonary disease) Onset Date: 01/04/18 Current Visit: Yes Status: Chronic Plan: Restart home medication Qualifiers: COPD type: chronic bronchitis Chronic bronchitis type: mixed simple and mucopurulent Qualified Code(s): J41.8 - Mixed simple and mucopurulent chronic bronchitis (10) GERD (gastroesophageal reflux disease) Onset Date: 01/04/18 Current Visit: Yes Status: Chronic Plan: Restart home medication Qualifiers: Esophagitis presence: without esophagitis Qualified Code(s): K21.9 - Gastro -esophageal reflux disease without esophagitis (11) Hypertension Onset Date: 01/04/18 Current Visit: Yes Status: Chronic Plan: Restart home medication Qualifiers: Hypertension type: essential hypertension Qualified Code(s): I10 - Essential (primary) hypertension (12) History of automatic internal cardiac defibrillator (AICD) Onset Date: 01/04/18 Current Visit: Yes Status: Chronic (13) Electrolyte abnormality Current Visit: Yes Status: Acute Plan: Hyponatermia - Resolved now Hyperkalemia - kaxelyate ordered Discharge Plan: Home Plan to discharge in: 48 Hours - Code Status/Comfort Care Code Status Assessed: Yes Critical Care: No
[2018-01-04 12:40] LABS: Protime INR 1.42
[2018-01-04 13:38] LABS: Rheumatoid Factor NEG (NEG)
[2018-01-04] MEDS: FUROSEMIDE 40 MG/4 ML VIAL IV SCH (18:34)
[2018-01-04] MEDS: WARFARIN SODIUM 3 MG TAB PO SCH (18:35)
[2018-01-04] MEDS: LACTULOSE 20 GM/30 ML UCUP PO SCH (20:43)
[2018-01-04] MEDS: ATORVASTATIN 20 MG TAB PO SCH (20:43)
[2018-01-04] MEDS ORDERED: LIDOCAINE 1% MPF 5 ML VIAL ONE (23:16)
[2018-01-05] MEDS: FUROSEMIDE 40 MG/4 ML VIAL IV SCH ×3 (01:00→18:19)
--- NOTE | 2018-01-05 02:53 | PN ---
Date of Progress Note: 01/04/2018 Chief Complaint: Fluid overload, edema, elevated BUN and creatinine. The patient has history of liver cirrhosis. He is ventilated. He is on ventilator for respiratory support and management of respiratory failure. The patient has hypercarbia. He was started on Lasix drip for severe fluid overload, anasarca. He has alcoholic liver cirrhosis; has history of atrial fibrillation, status post AICD. Review of Systems: Unobtainable. Physical Examination: Lungs: Few crackles bilaterally. Heart: S1, S2. Abdomen: Distended. Ascites present. Extremities: Edema present. Laboratory Data: Hemoglobin 8.7, WBC 7.1, platelet count is 119,000. Chemistry showed sodium 135, potassium 4.5, chloride 91, CO2 40, BUN is 56, creatinine 1.8, calcium 7.9, phosphorus 4.0. Impression And Plan: Acute kidney injury, nonoliguric, associated with hepatorenal syndrome, prerenal azotemia. The patient developed hyperkalemia, potassium was 5.6, today is improving to 4.5. Avoid spironolactone. The patient was started on Lasix drip, developed metabolic alkalosis. The plan is to use Diamox. The patient has respiratory acidosis with hypercarbia. Continue respiratory support with ventilator. Monitor ABG. The patient developed acute kidney injury, apparently he was taking ibuprofen. The patient cannot take nonsteroidal anti-inflammatory medication due to acute kidney injury and risk of hyperkalemia. Monitor electrolytes. Adjust diuretic accordingly. I spent total 36 min including 26 min to coordinate care plan. MIGDALIA/MARIOLA Voice ID: [id number] Report ID: [id number] MTDD
[2018-01-05] MEDS: LEVOTHYROXINE SOD 0.125 MG TAB PO SCH (05:06)
[2018-01-05 05:09] LABS: Protime INR 1.49
[2018-01-05 05:16] LABS: Arterial Blood Carboxyhemoglob 2.3 % (0-1.5); Blood Gas Oxyhemoglobin 93.4 % (94-97)
[2018-01-05 05:23] LABS: Albumin 2.4 g/dL (3.4-5.0); Phosphorus 3.3 mg/dL (2.5-4.9); Potassium 3.7 mmol/L (3.5-5.1)
[2018-01-05 05:48] VITALS: BMI 24.9
[2018-01-05] MEDS: LACTULOSE 20 GM/30 ML UCUP PO SCH ×2 (09:39→21:34)
[2018-01-05] MEDS: PANTOPRAZOLE 40 MG INJ IVP SCH (09:40)
[2018-01-05] MEDS: MIDODRINE HCL 5 MG TABLET PO SCH ×2 (09:40→21:34)
[2018-01-05] MEDS: Meropenem 500 MG in NA CHLORIDE 0.9% 100 ML IV SCH (09:42)
--- NOTE | 2018-01-05 14:54 | RAD REPORT ---
EXAM DESCRIPTION: RAD - Chest Single View - 01/05/2018 2:39 pm CLINICAL HISTORY: COPD, shortness of breath COMPARISON: January 02 TECHNIQUE: AP portable chest image was obtained 1426 hours . FINDINGS: Lung volumes are low. Pleural effusion and atelectasis at each base noted not substantiall y different from comparison. Pronounced enlargement of the cardiac silhouette has not changed. Defibr illator remains in place. NG tube has been removed since the prior study. No pneumothorax. No acute a ortic findings suspected. IMPRESSION: Pronounced enlargement of the cardiac silhouette again noted. This is not substantially different. Lung base atelectasis and pleural effusions are present not substantially different from comparison.
--- NOTE | 2018-01-05 16:49 | P.DS ---
Admission Date: 01/01/18 Discharge Date: 01/05/18 Primary Care Provider: KALEB Disposition: HOSPICE-HOME Discharge Condition: FAIR Reason for Admission: SOB Consultations: Gen Surgery - Dr Foster Nephrology - Dr Brewster - Problems (1) Hepatorenal failure Current Visit: Yes Status: Acute (2) Hepatic encephalopathy Current Visit: Yes Status: Acute (3) Dyspnea Onset Date: 09/04/14 Current Visit: No Status: Resolved Qualifiers: Dyspnea type: acute respiratory distress Qualified Code(s): R06.03 - Acute respiratory distress (4) Ascites Onset Date: 01/04/18 Current Visit: Yes Status: Acute Qualifiers: Ascites type: due to alcoholic cirrhosis Qualified Code(s): K70.31 - Alcoholic cirrhosis of liver with ascites (5) Alcoholic cirrhosis Onset Date: 01/04/18 Current Visit: Yes Status: Chronic Qualifiers: Ascites presence: with ascites Qualified Code(s): K70.31 - Alcoholic cirrhosis of liver with ascites (6) Atrial fibrillation Onset Date: 01/04/18 Current Visit: Yes Status: Chronic Qualifiers: Atrial fibrillation type: chronic Qualified Code(s): I48.2 - Chronic atrial fibrillation (7) CHF (congestive heart failure) Onset Date: 06/08/17 Current Visit: No Status: Chronic Qualifiers: Heart failure type: systolic Heart failure chronicity: chronic Qualified Code(s): I50.22 - Chronic systolic (congestive) heart failure (8) Hypothyroid Current Visit: No Status: Chronic Qualifiers: Hypothyroidism type: acquired Qualified Code(s): E03.9 - Hypothyroidism, unspecified (9) COPD (chronic obstructive pulmonary disease) Onset Date: 01/04/18 Current Visit: Yes Status: Chronic Qualifiers: COPD type: chronic bronchitis Chronic bronchitis type: mixed simple and mucopurulent Qualified Code(s): J41.8 - Mixed simple and mucopurulent chronic bronchitis (10) GERD (gastroesophageal reflux disease) Onset Date: 01/04/18 Current Visit: Yes Status: Chronic Qualifiers: Esophagitis presence: without esophagitis Qualified Code(s): K21.9 - Gastro -esophageal reflux disease without esophagitis (11) Hypertension Onset Date: 01/04/18 Current Visit: Yes Status: Chronic Qualifiers: Hypertension type: essential hypertension Qualified Code(s): I10 - Essential (primary) hypertension (12) History of automatic internal cardiac defibrillator (AICD) Onset Date: 01/04/18 Current Visit: Yes Status: Chronic (13) Electrolyte abnormality Current Visit: Yes Status: Acute Brief History of Present Illness: 57-year-old male with PMHX of COPD, obstructive sleep apnea, atrial fibrillation on chronic anti coagulation therapy, alcoholic cirrhosis, thrombocytopenia, alcohol abuse, hypertension, CHF and ascites requiring paracentesis who presented to the emergency room with multiple complaints including fatigue, shortness of breath, edema, and ascites that started over the period of 2 weeks. Pt states he was in his general state of health and started noticing that his abdomen was getting big again. Pt states he has not been drinking recently. Patient uses home oxygen at 2L at home. It did not help with SOB and thus he decided to come to the ER. Pt denies having any fever, Nausea, chills or CP at this time. He does however mention that he has been getting chills and more tremors now then usual. He was recently admission at the [facility] and was discharged home after 3 weeks. Pt states he has been compliant with medication however at bedside states he might not be taking all his medication. There is a h/o Noncompliance as well. Pt has multiple hospital visit to [facility] as well. Pt at bedside states she usually bounces back from the acute illness. In the Er pt was found to have large Ascites causing Respiratory distress and thus was referred for admission for further care. Hospital Course: Overall during the hospital stay patient remained stable Patient was initially admitted to the hospital for dyspnea most likely secondary to volume overload and ascites. Ascites is 2.2 to alcoholic Cirrhosis , Hepatic Encephalopathy and Portal HTN. Patient had a paracentesis done here in the hospital with general surgery. Patient had a 11 L of abdominal fluid removed and received 2 units of Albumin during paracentesis and after. Patient tolerated procedure well and did well overnight in 1st 24hrs. However day 2 of hospitalization patient became very lethargic and hypotensive. Arousable only to Sternal Rub. ABGs and lab work was done which revealed that patient was having acute hypercapnic respiratory failure and elevated levels of Ammonia. Patient then was placed on BiPAP and restarted on Lactulose. Patient at that time was transferred to the ICU. Pt had marked improvement in his symptoms. Patient became more alert and oriented. In acute respiratory failure did resolve. While here in the hospital patient also developed hip at a renal syndrome with acute worsening of his chronic kidney disease. Nephrology was then consulted who recommended the patient be started on Lasix drip along with albumin and octeotide drip. Patient again had improvement in his BUN and creatinine and thus Lasix drip and albumin and octreotide was stopped. Given the high a meld score patient was referred over to hospice. Patient's family chose [facility]. Patient was then discharged home under the care of [facility] who was going to provide BiPAP at home and take over further care. Vital Signs/Physical Exam: Temp Pulse Resp BP Pulse Ox 97.7 F 75 20 106/51 L 98 01/05/18 04:00 01/05/18 15:00 01/05/18 15:00 01/05/18 15:00 01/05/18 15:00 General: Alert, Mild distress, Other (On BIPAP) HEENT: Atraumatic, PERRLA, EOMI Neck: Supple, JVD not distended Respiratory: Clear to auscultation bilaterally, Normal air movement Cardiovascular: Regular rate/rhythm, Normal S1 S2 Gastrointestinal: Normal bowel sounds, No tenderness Musculoskeletal: No tenderness Integumentary: No rashes Neurological: Normal speech, Normal tone, Normal affect Lymphatics: No axilla or inguinal lymphadenopathy Laboratory Data at Discharge: WBC 7.1 K/uL (4.3-10.9) D 01/04/18 04:37 Hgb 8.7 g/dL (13.6-17.9) L 01/04/18 04:37 Hct 26.3 % (39.6-49.0) L 01/04/18 04:37 Plt Count 119 K/uL (152-406) L 01/04/18 04:37 PT 17.6 SECONDS (9.5-12.5) H 01/05/18 04:39 INR 1.49 01/05/18 04:39 Sodium 136 mmol/L (136-145) 01/05/18 04:39 Potassium 3.7 mmol/L (3.5-5.1) 01/05/18 04:39 BUN 52 mg/dL (7-18) H 01/05/18 04:39 Creatinine 1.60 mg/dL (0.55-1.3) H 01/05/18 04:39 Glucose 85 mg/dL (74-106) 01/05/18 04:39 Phosphorus 3.3 mg/dL (2.5-4.9) 01/05/18 04:39 Magnesium 2.2 mg/dL (1.8-2.4) D 01/04/18 04:37 Total Bilirubin 0.7 mg/dL (0.2-1.0) 01/04/18 04:37 AST 23 U/L (15-37) 01/04/18 04:37 ALT 12 U/L (12-78) 01/04/18 04:37 Alkaline Phosphatase 103 U/L (45-117) 01/04/18 04:37 Lipase 213 U/L (73-393) 01/01/18 16:40 Home Medications: Atorvastatin Calcium [Lipitor*] 20 mg PO BEDTIME 01/02/18 Bumetanide [Bumex*] 1 mg PO DAILY 01/02/18 Carvedilol [Coreg*] 12.5 mg PO BID 01/02/18 Lactulose 10 gm PO 01/02/18 Levothyroxine [Synthroid*] 125 mcg PO [id number] 01/02/18 Midodrine HCl 10 mg PO TID 01/02/18 Pantoprazole [Protonix Tab*] 40 mg PO DAILY 01/02/18 Spironolactone [Aldactone*] 25 mg PO DAILY 01/02/18 Trazodone [Desyrel*] 50 mg PO BEDTIME 01/02/18 Warfarin Sodium [Coumadin*] 3 mg PO DAILY 5 PM 01/02/18 Patient Discharge Instructions: You are going to be discharged home on Hospice. You will have an Hospice Nurse visit you at the house. You will be setup for Hospice for End of life care. Followup: Richelle Lockhart MD [ACTIVE - CAN ADMIT] - 1 Week
[2018-01-05] MEDS: WARFARIN SODIUM 3 MG TAB PO SCH (18:21)
[2018-01-05] MEDS ORDERED: ONDANSETRON 4 MG (ODT) TAB PO PRN (19:16)
[2018-01-05] MEDS: FUROSEMIDE 40 MG TABLET PO SCH (21:32)
[2018-01-05] MEDS: PANTOPRAZOLE 40MG TABLET PO SCH (21:32)
[2018-01-05] MEDS: ATORVASTATIN 20 MG TAB PO SCH (21:32)
--- NOTE | 2018-01-06 00:12 | PN ---
Date of Progress Note: 01/05/2018 Subjective: Patient doing better, more awake today. Patient responds to diuresis very well. Was sw itched to Lasix drip. Physical Examination: Vital Signs: When I saw the patient, blood pressure 110/77, pulse of 88. Chest: Clear to auscultation. Heart: S1, S2. Regular. Abdomen: Soft, nontender, ascites. Extremities: Trace edema. Lab: Reviewed. Medication: Reviewed. Patient on Lasix 40 t.i.d. Assessment And Plan: 1.Acute kidney injury secondary to cardiorenal. We will continue diuresis. 2.Hypertension. We will utilize blood pressure for diuresis. 3.Coronary artery disease, congestive heart failure, as by primary. 4.Hepatic encephalopathy. Recovered. 5.Hypercapnic respiratory failure, obstructive sleep apnea. Continue CPAP. DANITZA Voice ID: [id number] Report ID: [id number]
[2018-01-06 05:20] LABS: Protime INR 1.75
[2018-01-06] MEDS: LEVOTHYROXINE SOD 0.125 MG TAB PO SCH (05:31)
[2018-01-06 05:39] LABS: Albumin 2.3 g/dL (3.4-5.0); Phosphorus 3.1 mg/dL (2.5-4.9); Potassium 3.4 mmol/L (3.5-5.1)
[2018-01-06] MEDS: FUROSEMIDE 40 MG TABLET PO SCH (09:29)
[2018-01-06] MEDS: PANTOPRAZOLE 40MG TABLET PO SCH (09:29)
[2018-01-06] MEDS: LACTULOSE 20 GM/30 ML UCUP PO SCH (09:29)
[2018-01-06] MEDS: MIDODRINE HCL 5 MG TABLET PO SCH (09:30)
[2018-01-06 09:31] VITALS: O2SAT 99
[2018-01-06 11:53] LABS: Anti-Cardiolipin IgA Antibody <11 APL (<=11)
[2018-01-06 15:07] LABS: Hepatitis C Virus RNA (PCR)log <1.18 log IU/mL
[2018-01-06 15:50] VITALS: BP 99/46
[2018-01-06 15:51] VITALS: TEMP 97.7
[2018-01-06 17:30] LABS: HIV 1/2 Antibody Diff Not indicated.; HIV AG/AB 4TH GEN Non-reactive (Non-reactive)
--- NOTE | 2018-01-07 02:22 | PN ---
Date of Progress Note: 01/06/2018 Subjective: The patient doing better. No nausea. No vomiting. Apparently, the patient decided to go with hospice. Objective: Vital Signs: Blood pressure 99/46, pulse of 74. Chest: Crackles in the base. Heart: S1, S2. Regular. Abdomen: Soft, nontender. Extremities: Trace edema. Laboratory Data: H and H 8.7/26.3. Sodium 135, potassium 3.4, bicarb 41, BUN 43, creatinine 1.4, ca lcium 7.8, phosphorus 3.1. Medications: Current medications the patient on is include, 1.Tylenol. 2.Lasix 40 b.i.d. 3.Atorvastatin. 4.Levothyroxine. 5.Midodrine. 6.Pantoprazole. 7.Coumadin. Assessment And Plan: 1.Acute kidney injury secondary to cardiorenal, on the recovery phase. Continue diuresis. 2.Hypertension, controlled, optimal. We will utilize the blood pressure for more diuresis. Continu e midodrine. 3.Cirrhosis, advanced hepatic encephalopathy. We will follow up with the primary. We will sign off from the case as the patient is going to be hospice. Call us as needed. DANITZA Voice ID: [id number] Report ID: [id number]
[2018-01-07 19:17] LABS: P-ANCA Anti-Myeloperoxidase Ab <1.0 AI (<1.0)
[2018-01-09 18:49] LABS: Albumin, (SPE) 2.9 g/dL (3.8-4.8); Alpha-1-Globulins 0.4 g/dL (0.2-0.3); Alpha-2-Globulins 0.5 g/dL (0.5-0.9); INTERPRETATION REPORT
== END 2018-01-06 14:50 | disposition hospice, home (50) | DRG 432 ==
LOC: ER 16:15 → ERHOLD 18:19 → 4TH 20:03 → 3RD-ICU 01-02 11:54
PROVIDERS: ADMIT Family Medicine; ATTEND Family Medicine
PROC: 0W9G30Z Drainage of Peritoneal Cavity with Drainage Device, Percutaneous Approach (ICD-10-PCS; principal; 2018-01-01)
PROC: 5A09457 Assistance with Respiratory Ventilation, 24-96 Consecutive Hours, Continuous Positive Airway Pressure (ICD-10-PCS; 2018-01-02)
DX: K70.31 Alcoholic cirrhosis of liver with ascites (principal); K76.7 Hepatorenal syndrome; K72.00 Acute and subacute hepatic failure without coma; J96.02 Acute respiratory failure with hypercapnia; I13.0 Hypertensive heart and chronic kidney disease with heart failure and stage 1 through stage 4 chronic kidney disease, or unspecified chronic kidney disease; I50.22 Chronic systolic (congestive) heart failure; K76.6 Portal hypertension; N17.9 Acute kidney failure, unspecified; N18.9 Chronic kidney disease, unspecified; I25.10 Atherosclerotic heart disease of native coronary artery without angina pectoris; G47.33 Obstructive sleep apnea (adult) (pediatric); I48.2 Chronic atrial fibrillation; E03.9 Hypothyroidism, unspecified; K21.9 Gastro-esophageal reflux disease without esophagitis; J44.9 Chronic obstructive pulmonary disease, unspecified; Z95.810 Presence of automatic (implantable) cardiac defibrillator; E87.8 Other disorders of electrolyte and fluid balance, not elsewhere classified; D69.6 Thrombocytopenia, unspecified; Z99.81 Dependence on supplemental oxygen; Z91.14 Patient's other noncompliance with medication regimen; Z51.5 Encounter for palliative care; Z66 Do not resuscitate; Z79.01 Long term (current) use of anticoagulants; Z95.1 Presence of aortocoronary bypass graft; E87.5 Hyperkalemia; D64.9 Anemia, unspecified; F10.11 Alcohol abuse, in remission
CPT/HCPCS: 36415; 70450; 71045; 74018; 76770; 80048; 80053; 80069; 80076; 81003; 81015; 82140; 82553; 82570; 82607; 82728; 82746; 82805; 83520; 83540; 83690; 83735; 83970; 84100; 84156; 84165; 84300; 84443; 84466; 85025; 85044; 85610; 86021; 86038; 86147; 86160; 86225; 86317; 86430; 86704; 86706; 87040; 87086; 87088; 87389; 87522; 94640; 94660; 94760; 99291; 99292; C9113; J0696; J1120; J1940; J2354; J2405; J7030; P9047

== ENCOUNTER 2018-01-31 21:02 | Inpatient (IN) | payer OTHER ==
--- OUTSIDE RECORDS SUMMARY | 2018-01-31 21:06 | XMS REPORT | Clinical Summary ---
:1960 Author Organization [facility] Address [address] [place] [address] Phone Care Team Providers Name Role Phone [...] Active Problems Problem Noted Date Cardiogenic shock ([facility]) 11/03/2017 Septic shock ([facility]) 11/03/2017 Acute metabolic encephalopathy 11/03/2017 Acute hepatic encephalopathy 11/03/2017 Acute renal failure with tubular necrosis (HCC) 11/03/2017 Anemia 11/03/2017 Acute hypoxemic respiratory failure ([facility]) 11/02/2017 Altered mental status 11/02/2017 DEO (acute kidney injury) ([facility]) 11/02/2017 RVF (right ventricular failure) ([facility]) 11/02/2017 Volume overload 11/02/2017 Other cirrhosis of liver ([facility]) 11/02/2017 Other ascites 11/02/2017 Hypothyroid 11/02/2017 Atrial fibrillation (HCC) 11/02/2017 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[facility]) 11/02/2017 CHF (congestive heart failure), NYHA class [...] Macrocytic anemia 09/06/2016 Coronary artery disease involving chilkoot heart without angina pectoris 2016 Non morbid obesity 09/06/2016 Chest pain, unspecified type 09/05/2016 Encounters Date Type Specialty Care Team Description 11/11/2017 Procedure Pass 11/11/2017 Surgery Alex Houser MD 11/05/2017 Procedure Pass 11/02/2017 - Hospital Encounter Cardiology Malena Hernandez Acute blood loss as 11/20/2017 MD Luigi cause of postoperative Oziel Narayanan MD anemia;Acute hypoxemic Dipti Moy, respiratory failure Dylan Eason, ([facility]);Acute metabolic MD encephalopathy;Acute Alex Houser renal failure with MD Kali tubular necrosis ([facility]);Cardiogenic shock (HCC);RVF (right ventricular failure) (HCC);Septic shock (HCC);Respiratory failure requiring intubation (HCC);Acute congestive heart failure, unspecified heart failure type (HCC);Acute kidney injury (HCC);Other cirrhosis of liver (HCC) after 01/30/2017 Social History Tobacco Use Types Packs/Day Years [...] Not on file Implants Implanted Type Area Porter Baggage Device Expiration Model / Identifier Date Serial / Lot Patch Vasc [place] 1.65mm 1x6in [id number] - [id number] Graft/Patc N/A: [id number] / Implanted: Qty: 1 on 09/23/2016 by Adam Sullivan MD Chest BARD: PERIPHERAL / VASC [id number] Valve Mitrl De Leon Ii 33mm - [id number] Valves N/A: [employer]:STRUCT 02/17 [id number] / Implanted: Qty: 1 on 09/23/2016 by Adam Sullivan MD Chest URAL HEART [id number] / Procedures Procedure Name Priority Date/Time Associated Diagnosis Comments R CATH 11/11/2017 3:06 PM CDT Heart failure, unspecified HF chronicity, unspecified heart failure type (HCC) Case Notes (2) 7S2-10 after 01/30/2017 Results RHYTHM STRIP - SCAN (11/23/2017 2:31 [...] % Specimen Performing Laboratory Blood - Arm, [address] [address] Prothrombin time/INR (11/20/2017 6:06 AM)Only the most recent of19 resultswithin the time period is included. Component Value Ref Range Protime 16.8 (H) 11.7 - 14.7 seconds INR 1.4 <=5.9 Specimen Performing Laboratory Blood - Arm, [address] [address] Narrative RECOMMENDED COUMADIN/WARFARIN INR THERAPY RANGES STANDARD [...] Status --------- ------ CBC with platelet count ...[[id number]]AbnormalFinal result Please view results for these tests on the individual orders. Phosphorus (11/20/2017 6:06 AM)Only the most recent of19 resultswithin the time period is included. Component Value Ref Range Phosphorus 4.0 2.3 - 4.7 mg/dL Specimen Performing Laboratory Blood - Arm, [address] [address] Magnesium (11/20/2017 6:06 AM)Only the most recent of27 resultswithin the time period is included. Component Value Ref Range Magnesium 1.8 1.6 - 2.6 mg/dL Specimen Performing Laboratory Blood - Arm, [address] [address] Hepatic function panel (11/20/2017 6:06 AM)Only the [...] U/L Specimen Performing Laboratory Blood - Arm, [address] [address] Basic Metabolic Panel (11/20/2017 6:06 AM)Only the [...] PATIENTS. Specimen Performing Laboratory Blood - Arm, [address] [address] Lactic acid, venous, whole blood (11/19/2017 6:19 AM)Only the most recent of3 resultswithin the time period is included. Component Value Ref Range Lactate, Venous 0.8 0.5 - 2.2 mmol/L Specimen Performing Laboratory Blood - Arm, Left [facility] [address] [place] [address] Narrative Effective 10/24/2015: Units/Reference Range Change New: 0.5-2.2 mmol/LPrevious: 5-20 mg/dL Prepare RBC (11/19/2017 5:56 AM)Only the most recent of3 resultswithin the time period is included. Component Value Ref Range Unit ABO A Pos UNIT NUMBER [id number] Status WORK IN PROGRESS Blood Bank Product RED BLOOD CELLS PRODUCT CODE [id number] CROSSMATCH COMPATIBLE Specimen Performing Laboratory [place] [...] MD Report Verified Date/Time:11/17/2017 22:01:55 Reading Location: [address] Reading Room Procedure Note Interface, External [...] Report Verified Date/Time: 11/17/2017 22:01:55 Reading Location: [address] Reading Room chest 1 view portable [...] MD Report Verified Date/Time:11/17/2017 11:17:58 Reading Location: [facility] Radiology Reading Room Procedure Note Interface, External Ris In - 11/17/2017 11:20 AM CDT FINAL REPORT Chest one view compared to November 07 Discussion: Left chest ICD, cardiac valve replacement, cardiac prominence, pulmonary congestion, bilateral small effusions are noted. No pneumothorax. IMPRESSIONS: Interstitial congestion appears worse. Signed: Mamie Kirby MD Report Verified Date/Time: 11/17/2017 11:17:58 Reading Location: [facility] Radiology Reading Room Blood gas, arterial (11/17/2017 [...] Laboratory Blood, Arterial - Arm, Right [facility] [address] [address] Narrative Draw ABG first thing in AM once patient takes off BiPAP to start his day. Prepare Leuko-Red RBC (11/16/2017 11:54 PM) Component Value Ref Range Unit ABO A Pos UNIT NUMBER [id number] Status TRANSFUSED Blood Bank Product RED BLOOD CELLS PRODUCT CODE [id number] CROSSMATCH COMPATIBLE Specimen Performing Laboratory Other [place] POC-Glucose meter (11/15/2017 10:23 PM)Only the most recent of57 resultswithin the time period is included. Component Value Ref Range POC-Glucose Meter 100Comment: TESTED AT [address] 70 - 110 mg/dL [address] Specimen Performing Laboratory Blood [address] [address] Transfuse Leuko-Red RBC (11/15/2017 8:54 PM)Only the most recent of2 resultswithin the time period is included.Type and screen, automated (2017 2:05 PM)Only the most recent of3 resultswithin the time period is included. Component Value Ref Range ABO/RH AUTOMATED (BEAKER) A POSITIVE Ab Scrn NEGATIVE Specimen Performing Laboratory Blood [address] [address] B-type Natriuretic Factor (BNP) (11/14/2017 9:16 AM)Only the most recent of3 resultswithin the time period is included. Component Value Ref Range BNP 730 (H) 0 - 100 pg/mL Specimen Performing Laboratory Blood [address] [address] aPTT (11/14/2017 4:17 AM)Only the most recent of13 resultswithin the time period is included. Component Value Ref Range PTT 43.5 (H) 22.5 - 36.0 seconds Specimen Performing Laboratory Blood - Line, Arterial [address] [address] CARDIAC CATH REPORT - SCAN (11/12/2017 3:00 PM)Wound culture + gram stain ( 5:27 PM) Component Value Ref Range Result No growth Gram Stain Result 1+ WBCs Gram Stain Result No organisms seen Specimen Performing Laboratory Abscess - Leg, Left [address] [address] [place] Aspiration (11/09/2017 4:11 PM) Specimen Performing Laboratory GE RIS Narrative FINAL REPORT Ultrasound guided fine-needle aspiration dated 11/09/2017 Procedure: Aspiration of subcutaneous collection in the left leg Pre-procedure diagnosis: Subcutaneous collection in the left leg Post-procedure diagnosis: Subcutaneous collection in the left lower Radiologist: Luisito Cohen MD Retail Receiving Clerk: None Sedation: None. Anesthesia: 1% Xylocaine local [...] MD Report Verified Date/Time:11/09/2017 16:44:58 Reading Location: [address] Ultrasound Reading Room Procedure Note Interface, External Ris In - 11/09/2017 4:47 PM CDT FINAL REPORT Ultrasound guided fine-needle aspiration dated 11/09/2017 Procedure: Aspiration of subcutaneous collection in the left leg Pre-procedure diagnosis: Subcutaneous collection in the left leg Post-procedure diagnosis: Subcutaneous collection in the left lower Radiologist: Luisito Cohen MD Retail Receiving Clerk: None Sedation: None. Anesthesia: 1% Xylocaine local [...] Report Verified Date/Time: 11/09/2017 16:44:58 Reading Location: [address] Ultrasound Reading Room Sputum Culture + [...] yeast Specimen Performing Laboratory Sputum - Expectorated [facility] [address] [place] [address] Narrative 2+ Normal respiratory arsalan present Organism [...] 2.2 mmol/L Specimen Performing Laboratory Blood, Arterial [place] [id number] [place] [address] Narrative Effective 10/24/2015: Units/Reference Range Change New: [...] FOR DIALYSIS PATIENTS. Specimen Performing Laboratory Blood [address] [address] Prepare plasma (11/06/2017 11:55 PM) Component Value Ref Range Unit ABO A Neg UNIT NUMBER [id number] Status CANCELED Blood Bank Product FFP PRODUCT CODE [id number] Unit ABO A Pos UNIT NUMBER [id number] Status TRANSFUSED Blood Bank Product FFP PRODUCT CODE [id number] Specimen Performing Laboratory Blood [place] Prepare Leuko-Red PLT (11/06/2017 11:54 PM) Component Value Ref Range Unit ABO AB Pos UNIT NUMBER [id number] Status TRANSFUSED Blood Bank Product PLATELETS PRODUCT CODE [id number] Specimen Performing Laboratory Blood [place] Transfuse Leuko-Red PLT (11/05/2017 3:34 PM)Only the most recent of2 resultswithin the time period is included.Glucose, body fluid (11/05/2017 2:55 PM)Only the most recent of2 resultswithin the time period is included. Component Value Ref Range Glucose, Body Fluid 99 mg/dL Specimen Performing Laboratory Body Fluid - Ascites [address] [address] Narrative Absence of reference range indicates that normals have not been defined. Assay performance has not been validated for this type of specimen. Body fluid culture + gram stain (11/05/2017 2:55 PM) Component Value Ref Range Result No growth Gram Stain Result <1+ WBCs Gram Stain Result No organisms seen Specimen Performing Laboratory Body Fluid - Ascites [address] [address] Body fluid cell count with differential (11/05/2017 2:55 PM)Only the most recent of3 resultswithin the time period is included. Component Value Ref Range Appearance Moderately Bloody (A) Clear Color Niru (A) Colorless, Straw RBCs [address] (H) <=1 /cu mm Adjusted WBC Count 115 (H) <=5 /cu mm Lining Cells 0 <=1 /cu mm % Segs 16 % % Lymphs 29 % % Monos 55 % % Eos 0 % % Baso 0 % Container Body Fluid EDTA Tube Specimen Performing Laboratory Body Fluid - Ascites [address] [address] Protein, body fluid (11/05/2017 2:55 PM)Only the most recent of2 resultswithin the time period is included. Component Value Ref Range Protein, Fluid 3.4 g/dL Specimen Performing Laboratory Body Fluid - Ascites [address] [address] Narrative Absence of reference range indicates that normals have not been defined. Assay performance has not been validated for this type of specimen. Albumin, body fluid (11/05/2017 2:55 PM)Only the most recent of2 resultswithin the time period is included. Component Value Ref Range Albumin, Fluid 1.5 gm/dL Specimen Performing Laboratory Body Fluid - Ascites [address] [address] Narrative Reference Range:No Normals Assay performance has not been validated for this type of specimen. Cytology (11/05/2017 2:55 PM)Only the most recent of2 resultswithin the time period is included. Component Value Ref Range Case Report Medical Cytology Report Case: [id number] Authorizing Provider:Tonya Andrews MD Collected: 11/05/2017 1253 Ordering Location: [place] [address] ICUReceived: 11/05/2017 1556 Pathologist: Lonny Barnard MD Specimen:Peritoneal Fluid DIAGNOSIS PERITONEAL FLUID (CYTOSPINS): - NO MALIGNANT CELLS IDENTIFIED Signing Pathologist Direct Phone Line: [phone] CPT Code(s) 54240 CLINICAL DATA Ascites; acute hypoxemic resp failure, DEO with hyperkalemia, acute decompensated RV failure, pulmonary edema, cardiogenic shock, suspected septic shock SPECIMEN SOURCE PERITONEAL FLUID GROSS DESCRIPTION Prepared 4 cytospins from 50 ml dark yellow fluid Collected: [id number] Received: [id number] STATEMENT OF ADEQUACY Satisfactory Gross assessment was performed at [facility], Department of Pathology, [address] [place] [address], Technical component was performed at [facility], Department of Pathology, [address] [place] [address], Professional component was performed [facility], at Department of Pathology, [address] [place] [address], Specimen Performing Laboratory Body [place] [address] Transfuse plasma (11/05/2017 2:45 PM)Transfusion Reaction Investigation (2017 12:12 PM) Component Value Ref Range TRANSFUSION RX INVESTIGATION(BEAKER) SEE COMMENTComment: Possible transfusion related circulatory overload. Cannot rule out underlying disease as cause of presenting symptoms. No evidence to support the presence of TRALI.Electronic Signature: Armando Rodriguez M.D. Specimen [place] [address] Manual Differential (11/05/2017 3:38 AM)Only the most [...] Performing Laboratory Blood - Line, Arterial [facility] [address] [address] Narrative Received comment: User comments: Slide comments: ECG 12 lead (11/04/2017 10:22 PM)Only the most recent of2 resultswithin the time period is included. Specimen Performing Laboratory GE MUSE Narrative Ventricular Rate 97 BPM Atrial Rate 68 BPM QRS Duration 108 ms Q-T Interval 372 ms QTC Calculation(Bazett) 472 ms R [place] 68 degrees T [place] -78 degrees Atrial fibrillation Inferior-posterior infarct , age undetermined ST & T wave abnormality, consider lateral ischemia Abnormal ECG Confirmed by MD Arango Mahboob ([id number]) on 11/05/2017 5:50:03 PM Procedure Note Interface, External Ris In - 11/05/2017 5:50 PM CDT Ventricular Rate 97 BPM Atrial Rate 68 BPM QRS Duration 108 ms Q-T Interval 372 ms QTC Calculation(Bazett) 472 ms R [place] 68 degrees T [place] -78 degrees Atrial fibrillation Inferior-posterior infarct , [...] MD Report Verified Date/Time:11/04/2017 18:29:17 Reading Location: [facility] C013W Consult Reading Room Procedure Note Interface, [...] Report Verified Date/Time: 11/04/2017 18:29:17 Reading Location: [address] Consult Reading Room extremity non-vascular limited left (11/04/2017 4:35 PM) Specimen Performing Laboratory [facility] RIS Narrative FINAL REPORT INDICATION: Focal swelling [...] MD Report Verified Date/Time:11/04/2017 18:32:04 Reading Location: [facility] C013 Consult Reading Room Procedure Note Interface, [...] Report Verified Date/Time: 11/04/2017 18:32:04 Reading Location: [facility] C013W Consult Reading Room PHERAL VASCULAR REPORT - SCAN (11/04/2017 7:20 AM)Mfugw-5-grszzrlvgfx ( 5:11 AM) Component Value Ref Range A-1 Antitrypsin 184.70 90.00 - 200.00 mg/dL Specimen Performing Laboratory Blood [facility] [address] [address] Ceruloplasmin (11/04/2017 5:11 AM) Component Value Ref Range Ceruloplasmin 31 18 - 36 mg/dL Comment: Adults:Males: 18-36 mg/dL Females: 18-53 mg/dL Pediatrics:Males (mg/dL)Females (mg/dL) 0-30 Days 8-25 3-28 31 Days-11 Month 15-4815-43 1-3 Kocfr09-7247-47 4-6 Zroqr81-5647-59 7-9 Bzkih49-4151-00 10-12 [id number] 13-15 Bpije70-6294-68 16-18 Rpcjk09-6452-95 The pediatric ranges are derived from the following criteria: Petey SJ, María JM, Kandy J et al Pediatric reference ranges for Xjfs-8-Bcqqfcjasngor and ceruloplasmin. Clin. Chem 1997; 43:S1999 Pediatric Reference Ranges, 2nd., [place] Peteyet al. editors. [employer], [place], [place] 1997. Specimen Performing Laboratory Blood [facility] [address] [place] [address] Narrative Performing Lab *S[facility], [address] [place] [address] Mike Leyva MD, PhD ECHOCARDIOGRAM REPORT - SCAN (11/03/2017 2:54 PM)Venous doppler legs bilateral (11/03/2017 1:10 PM) Component Value Ref Range Ejection Fraction Specimen Performing Laboratory [facility]ART[facility] MKCKESSON CPACS Impressions Right Impression [...] of Study 11/03/2017 TONYA SALGADO 57 Visit [id number] Male of 1960 Number Referring Malena Benites Number [id number] Physician House Wirer Helper Zach Garza. InterpretingJ. MALIK LuceroT, Gloria BULLARD, [...] 11/03/2017 TONYA SALGADO Age 57 Visit Number [id number] Gender Male Date of 1960 Number Referring Malena Hernandez Room Number [id number] Physician House Wirer Helper Zach Garza. Interpreting MALIK SimmsT, ARDMS Physician [...] Performing Laboratory Blood - Line, Arterial [facility] [address] [address] Narrative SEPSIS RISK (ng/mL) Low:0.05-0.50 Intermediate: 0.51-2.00 High: >=2.01 2D Echo W/Doppler(CW/PW/Color) (11/03/2017 7:48 AM) Component Value Ref Range Ejection Fraction Specimen Performing Laboratory [facility] MKCKESSON CPA Narrative Transthoracic Echocardiography Report (TTE) Demographics Patient NameMARIO CA, Date of Study11/03/2017 TONYA SALGADO Gender Male Visit [id number] Race Unknown Number [id number] Number Date of [...] with mild doming - preserved mobility (congenital MS ? prior balloon) Moderate to severe PV [...] with mild doming - preserved mobility (congenital MS ? prior balloon) Moderate to severe PV [...] 11/03/2017 TONYA SALGADO Gender Male Visit Number [id number] Race Unknown Room Number [id number] Number Date of 1960 Referring Malena Meyers Physician Mary Age 57 year(s) House Wirer Helper Carlitos BECK Interpreting Dylan Ortega MD Fellow [...] with mild doming - preserved mobility (congenital MS ? prior balloon) Moderate to severe PV [...] with mild doming - preserved mobility (congenital MS ? prior balloon) Moderate to severe PV [...] 0.03 ng/mL Specimen Performing [place] [address] Narrative Troponin I (TnI) levels must be [...] Range Concentration charged Done Specimen Performing Laboratory [address] [address] AFB culture + smear (11/03/2017 2:58 AM)Only the most recent of3 resultswithin the time period is included. Component Value Ref Range Result No acid-fast bacilli isolated in 42 days AFB Smear No acid fast bacilli seen Specimen Performing Laboratory [address] [address] Legionella culture (11/03/2017 2:58 AM) Component Value Ref Range Result No Legionella species isolated Specimen Performing Laboratory [address] [address] Bronchial culture + gram stain (11/03/2017 2:58 AM)Only the most recent of2 resultswithin the time period is included. Component Value Ref Range Result No growth Gram Stain Result <1+ WBCs Gram Stain Result No organisms seen Specimen Performing Laboratory [address] [address] Virus culture Expected virus: All (11/03/2017 2:58 AM) Component Value Ref Range Result No virus isolated Specimen Performing Laboratory [address] [address] Fungus culture + smear (11/03/2017 2:58 AM)Only the most recent of3 resultswithin the time period is included. Component Value Ref Range Result No fungus isolated in 28 days Fungus Smear No fungi seen Specimen Performing Laboratory [address] [address] Peripheral Blood Smear - Path Review (11/03/2017 [...] MD (electronic signature) Specimen Performing Laboratory Blood [address] [address] CBC with platelet count + manual diff [...] 0 /100 WBC Specimen Performing Laboratory Blood [address] [address] Iron, TIBC, % sat. (without ferritin) (11/03/2017 1:50 AM) Component Value Ref Range Iron 101 40 - 160 ug/dL TIBC 303 250 - 450 ug/dL Iron % Saturation 33 20 - 55 % Specimen Performing Laboratory Blood [address] [address] CBC with platelet count + manual diff (11/03/2017 1:50 AM) Specimen Performing Laboratory Blood Narrative The following orders were created for panel order CBC with platelet count + manual diff. Procedure Abnormality Status --------- ------ CBC with platelet count ...[[id number]]Abnormal Edited Result - FINAL Please view results [...] Specimen Performing Laboratory Urine - Urine, [place] [address] Narrative DRUGCUTOFF CONC. Cocaine 300 ng/mL Bndlpawjeyn75 ng/mL Pzovdfmpzrnihy288 ng/mL Barbiturate 200 ng/mL Iyjywexampcux74 ng/mL Nodwvo810 ng/mL Methadone 300 ng/mL Amphetamine/ 1000 ng/mL Methamphetamine Oxycodone 300 ng/mL This assay provides an unconfirmed qualitative test result for the clinical management of patients in emergency situations. Chain of custody not maintained. Some htpt-gyi-xepivxc medications, as well as adulterants, may cause inaccurate results. Clinical correlation should be applied. A more comprehensive drug screen or confirmation of a detected drug may be performed upon request. Ferritin (11/03/2017 1:50 AM) Component Value Ref Range Ferritin 80 5 - 275 ng/mL Specimen [place] [address] CT brain without IV contrast portable (11/03/2017 1:00 AM) Specimen Performing Laboratory [facility] Narrative FINAL REPORT CT BRAIN WITHOUT IV [...] MD Report Verified Date/Time:11/03/2017 01:03:15 Reading Location: [facility] B1 C013Y CT Body Reading Room [...] Report Verified Date/Time: 11/03/2017 01:03:15 Reading Location: [facility] B1 C013Y CT Body Reading Room Protein, random urine (11/02/2017 11:36 PM) Component Value Ref Range Protein, Urine 62 (H) 0 - 14 mg/dL Specimen Performing Laboratory Urine - Urine, [address] [address] Eosinophil smear (11/02/2017 11:36 PM) Component Value Ref Range Eosinophil Smear No EOS seen No EOS seen Specimen Performing Laboratory Urine - Urine, [address] [address] Gram stain (11/02/2017 11:04 PM) Component Value Ref Range Gram Stain Result <1+ WBCs Gram Stain Result No organisms seen Specimen Performing Laboratory Body Fluid - Paracentesis [address] [address] Triglycerides, body fluid (11/02/2017 11:02 PM) Component Value Ref Range Triglycerides, Fluid 37 mg/dL Specimen Performing Laboratory Body Fluid - Paracentesis [address] [address] Narrative Reference Range:No Normals Assay performance has not been validated for this type of specimen. Lactate dehydrogenase (LDH), body fluid (11/02/2017 11:02 PM) Component Value Ref Range LDH, Fluid <90 U/L Specimen Performing Laboratory Body Fluid - Paracentesis [address] [address] Narrative Absence of reference range indicates that normals have not been defined. Assay performance has not been validated for this type of specimen. Amylase, body fluid (11/02/2017 11:02 PM) Component Value Ref Range Amylase, Fluid 30 U/L Specimen Performing Laboratory Body Fluid - Paracentesis [address] [address] Narrative Absence of reference range indicates that normals have not been defined. Assay performance has not been validated for this type of specimen. Hepatitis B surface antigen (11/02/2017 9:44 PM) Component Value Ref Range hepatitis B Surface Ag Nonreactive Nonreactive Specimen Performing Laboratory Blood [address] [address] Narrative For chronic HD patients, draw HBsAg with each admission then every 30 days. Hepatitis B core antibody, total (11/02/2017 9:33 PM) Component Value Ref Range Hep B Core Total Ab Nonreactive Nonreactive Specimen Performing Laboratory [address] [address] Hepatitis B surface antibody (11/02/2017 9:33 PM) Component Value Ref Range Hep B S Ab <8.0 <8.0 mIU/mL Specimen Performing Laboratory Blood [address] [address] Fibrinogen (11/02/2017 9:33 PM) Component Value Ref Range Fibrinogen 364 225 - 434 mg/dl Specimen Performing Laboratory [address] [address] Osmolality, urine (11/02/2017 9:28 PM) Component Value Ref Range Osmolality, Ur 316 40 - 1400 mOsm/kg Specimen Performing Laboratory Urine - Urine, [place] [address] [place] [address] TSH (11/02/2017 7:53 PM) Component Value Ref Range TSH 5.14 (H) 0.35 - 4.94 uIU/mL Specimen Performing Laboratory Blood [address] [address] Digoxin level (11/02/2017 7:53 PM) Component Value Ref Range Digoxin Lvl <0.3 (L) 0.8 - 2.0 ng/mL Specimen Performing Laboratory Blood [address] [address] Urea Nitrogen, random urine (11/02/2017 7:52 PM) Component Value Ref Range Urea Nitrogen, Ur 229 mg/dL Specimen Performing Laboratory Urine - Urine, [address] [address] Narrative Reference Range: No Normals Sodium, random urine (11/02/2017 7:52 PM) Component Value Ref Range Sodium Urine 74 meq/L Specimen Performing Laboratory Urine - Urine, [address] [address] Narrative Reference Range: No Normals Creatinine, random urine (11/02/2017 7:52 PM) Component Value Ref Range Creatinine, Ur 44.7 mg/dL Specimen Performing Laboratory Urine - Urine, [address] [address] Narrative Reference Range: No Normals Urinalysis w/Microscopic (11/02/2017 7:52 PM) Component Value Ref Range Color, UA [place] Clarity, UA Hazy Specific [place], UA 1.009 1.001 - 1.035 pH, UA [...] /LPF Casts 10 /LPF Specimen Source Urine, [place] Specimen Performing Laboratory Urine - Urine, [address] [address] Urine culture (11/02/2017 7:52 PM) Component Value Ref Range Result No growth Specimen Performing Laboratory Urine - Urine, [address] [address] Ammonia (11/02/2017 7:28 PM) Component Value Ref Range Ammonia 60 18 - 72 mol/L Specimen Performing Laboratory Blood [address] [address] Blood culture (11/02/2017 7:25 PM)Only the most recent of2 resultswithin the time period is included. Component Value Ref Range Result No growth in 5 days Specimen Performing Laboratory Blood - Arm, [address] [address] Creatine Kinase (CK), Total and MB (11/02/2017 7:22 PM) Component Value Ref Range Total CK 41 29 - 200 U/L CK-MB 5.8 0.0 - 6.6 ng/mL MB Relative Index 14.1 % Specimen Performing Laboratory Blood [address] [address] Narrative CK-MB Reference Range: <6.7Normal 6.7-10.0Borderline >10.0 Abnormal RESP PANEL (11/02/2017 7:42 AM) Component Value Ref Range Scan Result Specimen Performing Laboratory Sputum [facility] [id number] [place] [address] ARRYTHMIA IMPLANT REPORT - SCAN (03/05/2017 7:40 AM)after 01/30/2017
--- OUTSIDE RECORDS SUMMARY | 2018-01-31 21:19 | XMS REPORT ---
:1960 [facility] Address [address] [place] [address] Dr. Powers [address] [place] [id number] Care Team Providers Name Role Phone MALENA [...] Value Reference Range Comments CULTURE (BEAKER) (test vydz=5523) No acid-fast bacilli isolated in 42 days AFB SMEAR (BEAKER) (test pkdm=130) No acid fast bacilli seen AFB CULTURE + [id number] 12:58:00 Test Item Value Reference Range Comments CULTURE (BEAKER) (test No acid-fast bacilli isolated sxgp=7434) in 42 days AFB SMEAR (BEAKER) (test No acid fast bacilli seen swjf=203) AFB CULTURE + [id number] 12:58:00 Test Item Value Reference Range Comments CULTURE (BEAKER) (test No acid-fast bacilli isolated bejl=2974) in 42 days AFB SMEAR (BEAKER) (test No acid fast bacilli seen vizl=561) FUNGUS CULTURE + [id number] 15:41:00 Test Item Value Reference Range Comments CULTURE (BEAKER) (test No fungus isolated in 28 days dsay=0409) FUNGUS SMEAR (BEAKER) (test No fungi seen imsz=7497) FUNGUS CULTURE + [id number] 15:31:00 Test Item Value Reference Range Comments CULTURE (BEAKER) (test jlym=7285) <1+ Afsaneh albicans FUNGUS SMEAR (BEAKER) (test No fungi seen iyve=2494) FUNGUS CULTURE + [id number] 15:29:00 Test Item Value Reference Range Comments CULTURE (BEAKER) (test No fungus isolated in 28 days pktm=2776) FUNGUS SMEAR (BEAKER) (test No fungi seen dhsz=2471) VIRUS [id number] 08:45:00 Test Item Value Reference Range Comments CULTURE (BEAKER) (test zjvh=6471) No virus isolated CBC W/PLT COUNT & AUTO [id number] 07:48:00 Test Item Value Reference Range Comments WHITE BLOOD CELL COUNT (BEAKER) (test eihx=210) 5.3 K/ L 3.5-10.5 RED BLOOD CELL COUNT (BEAKER) (test fjka=794) 2.95 M/ L 4.63-6.08 HEMOGLOBIN (BEAKER) (test cynv=846) 8.2 GM/DL 13.7-17.5 HEMATOCRIT (BEAKER) (test qyfv=034) 27.5 % 40.1-51.0 MEAN CORPUSCULAR VOLUME (BEAKER) (test vlfn=206) 93.2 fL 79.0-92.2 MEAN CORPUSCULAR HEMOGLOBIN (BEAKER) (test 27.8 pg 25.7-32.2 rewi=900) MEAN CORPUSCULAR HEMOGLOBIN CONC (BEAKER) (test 29.8 GM/DL 32.3-36.5 nzgt=780) RED CELL DISTRIBUTION WIDTH (BEAKER) (test 19.8 % 11.6-14.4 qolz=352) PLATELET COUNT (BEAKER) (test nfal=646) 85 K/CU MM 150-450 MEAN PLATELET VOLUME (BEAKER) (test auxs=274) 10.2 fL 9.4-12.4 NUCLEATED RED BLOOD CELLS (BEAKER) (test 0 /100 WBC 0-0 rcbv=809) NEUTROPHILS RELATIVE PERCENT (BEAKER) (test 69 % rlpz=203) LYMPHOCYTES RELATIVE PERCENT (BEAKER) (test 11 % gyjb=448) MONOCYTES RELATIVE PERCENT (BEAKER) (test 16 % adun=600) EOSINOPHILS RELATIVE PERCENT (BEAKER) (test 4 % alqh=767) BASOPHILS RELATIVE PERCENT (BEAKER) (test 0 % kroa=831) NEUTROPHILS ABSOLUTE COUNT (BEAKER) (test 3.65 K/ L 1.78-5.38 kwku=557) LYMPHOCYTES ABSOLUTE COUNT (BEAKER) (test 0.60 K/ L 1.32-3.57 fpca=343) MONOCYTES ABSOLUTE COUNT (BEAKER) (test pdpt=051) 0.84 K/ L 0.30-0.82 EOSINOPHILS ABSOLUTE COUNT (BEAKER) (test 0.21 K/ L 0.04-0.54 mvjo=893) BASOPHILS ABSOLUTE COUNT (BEAKER) (test afoz=632) 0.01 K/ L 0.01-0.08 IMMATURE GRANULOCYTES-RELATIVE PERCENT (BEAKER) 0 % 0-1 (test pmdt=6046) [id number] 07:00:00 Test Item Value Reference Range Comments PHOSPHORUS (BEAKER) (test wwww=050) 4.0 mg/dL 2.3-4.7 [id number] 07:00:00 Test Item Value Reference Range Comments MAGNESIUM (BEAKER) (test rjrs=854) 1.8 mg/dL 1.6-2.6 BASIC METABOLIC [id number] 07:00:00 Test Item Value Reference Range Comments SODIUM (BEAKER) (test 136 meq/L 136-145 trln=165) POTASSIUM (BEAKER) (test 4.2 meq/L 3.5-5.1 bbkb=826) CHLORIDE (BEAKER) (test 94 meq/L 98-107 xajl=206) CO2 (BEAKER) (test 32 meq/L 22-29 ydhd=356) BLOOD UREA NITROGEN 53 mg/dL 7-21 (BEAKER) (test prgz=741) CREATININE (BEAKER) (test 1.62 mg/dL 0.57-1.25 bskr=738) GLUCOSE RANDOM (BEAKER) 78 mg/dL 70-105 (test defr=642) CALCIUM (BEAKER) (test 8.5 mg/dL 8.4-10.2 vajs=440) EGFR (BEAKER) (test 44 mL/min/1.73 sq m ESTIMATED GFR IS NOT aihk=7858) ACCURATE CREATININE CLEARANCE IN PREDICTING GLOMERULAR FILTRATION RATE. ESTIMATED GFR IS NOT APPLICABLE FOR DIALYSIS PATIENTS. HEPATIC FUNCTION [id number] 07:00:00 Test Item Value Reference Range Comments TOTAL PROTEIN (BEAKER) (test lntq=086) 7.2 gm/dL 6.0-8.3 ALBUMIN (BEAKER) (test olun=8735) 3.0 g/dL 3.5-5.0 BILIRUBIN TOTAL (BEAKER) (test xuiw=964) 1.3 mg/dL 0.2-1.2 BILIRUBIN DIRECT (BEAKER) (test btyj=594) 0.9 mg/dL 0.1-0.5 ALKALINE PHOSPHATASE (BEAKER) (test sdpv=751) 124 U/L 40-150 AST (SGOT) (BEAKER) (test iqnd=094) 25 U/L 5-34 ALT (SGPT) (BEAKER) (test halb=345) 11 U/L 6-55 PROTHROMBIN [id number] 06:42:00 Test Item Value Reference Range Comments PROTIME (BEAKER) (test vrgn=765) 16.8 seconds 11.7-14.7 INR (BEAKER) (test kezo=739) 1.4 <=5.9 RECOMMENDED COUMADIN/WARFARIN INR THERAPY RANGESSTANDARD DOSE: 2.0 - 3.0 Includes: PROPHYLAXIS forvenous thrombosis, systemic embolization; TREATMENT for venous thrombosis and/or pulmonary embolus.HIGH RISK: Target INR is 2.5-3.5 for patients with mechanical heart valves.LACTIC ACID, VENOUS, WHOLE [id number] 07:07:00 Test Item Value Reference Range Comments LACTATE BLOOD VENOUS (2) (BEAKER) (test 0.8 mmol/L 0.5-2.2 rrth=9771) Effective 10/24/2015: Units/Reference Range ChangeNew: 0.5-2.2 mmol/L Previous: 5 -20 mg/[id number] 05:21:00 Test Item Value Reference Range Comments PHOSPHORUS (BEAKER) (test lyep=853) 3.7 mg/dL 2.3-4.7 [id number] 05:21:00 Test Item Value Reference Range Comments MAGNESIUM (BEAKER) (test twvo=573) 1.8 mg/dL 1.6-2.6 BASIC METABOLIC [id number] 05:21:00 Test Item Value Reference Range Comments SODIUM (BEAKER) (test 135 meq/L 136-145 ebuy=949) POTASSIUM (BEAKER) (test 4.2 meq/L 3.5-5.1 mkrw=993) CHLORIDE (BEAKER) (test 94 meq/L 98-107 jkur=871) CO2 (BEAKER) (test 32 meq/L 22-29 ecfo=343) BLOOD UREA NITROGEN 53 mg/dL 7-21 (BEAKER) (test udst=344) CREATININE (BEAKER) (test 1.76 mg/dL 0.57-1.25 ctev=006) GLUCOSE RANDOM (BEAKER) 76 mg/dL 70-105 (test ybic=374) CALCIUM (BEAKER) (test 8.5 mg/dL 8.4-10.2 ixkb=717) EGFR (BEAKER) (test 40 mL/min/1.73 sq m ESTIMATED GFR IS NOT gowm=5930) ACCURATE CREATININE CLEARANCE IN PREDICTING GLOMERULAR FILTRATION RATE. ESTIMATED GFR IS NOT APPLICABLE FOR DIALYSIS PATIENTS. HEPATIC FUNCTION [id number] 05:21:00 Test Item Value Reference Range Comments TOTAL PROTEIN (BEAKER) (test vzsy=234) 7.2 gm/dL 6.0-8.3 ALBUMIN (BEAKER) (test isev=4385) 3.0 g/dL 3.5-5.0 BILIRUBIN TOTAL (BEAKER) (test dhfx=711) 1.6 mg/dL 0.2-1.2 BILIRUBIN DIRECT (BEAKER) (test wnsb=405) 0.9 mg/dL 0.1-0.5 ALKALINE PHOSPHATASE (BEAKER) (test ddoe=948) 127 U/L 40-150 AST (SGOT) (BEAKER) (test wful=972) 26 U/L 5-34 ALT (SGPT) (BEAKER) (test nbgo=471) 11 U/L 6-55 CBC W/PLT COUNT & AUTO [id number] 05:04:00 Test Item Value Reference Range Comments WHITE BLOOD CELL COUNT (BEAKER) (test vtqn=221) 6.0 K/ L 3.5-10.5 RED BLOOD CELL COUNT (BEAKER) (test yens=740) 2.88 M/ L 4.63-6.08 HEMOGLOBIN (BEAKER) (test feqc=527) 8.3 GM/DL 13.7-17.5 HEMATOCRIT (BEAKER) (test gsjz=215) 26.9 % 40.1-51.0 MEAN CORPUSCULAR VOLUME (BEAKER) (test khui=970) 93.4 fL 79.0-92.2 MEAN CORPUSCULAR HEMOGLOBIN (BEAKER) (test 28.8 pg 25.7-32.2 ehfq=469) MEAN CORPUSCULAR HEMOGLOBIN CONC (BEAKER) (test 30.9 GM/DL 32.3-36.5 dukj=435) RED CELL DISTRIBUTION WIDTH (BEAKER) (test 19.9 % 11.6-14.4 zkzl=352) PLATELET COUNT (BEAKER) (test argj=594) 85 K/CU MM 150-450 MEAN PLATELET VOLUME (BEAKER) (test crxl=627) 11.1 fL 9.4-12.4 NUCLEATED RED BLOOD CELLS (BEAKER) (test 0 /100 WBC 0-0 ytjp=968) NEUTROPHILS RELATIVE PERCENT (BEAKER) (test 69 % zmlm=497) LYMPHOCYTES RELATIVE PERCENT (BEAKER) (test 11 % yhli=617) MONOCYTES RELATIVE PERCENT (BEAKER) (test 16 % kqpo=787) EOSINOPHILS RELATIVE PERCENT (BEAKER) (test 4 % fsuk=992) BASOPHILS RELATIVE PERCENT (BEAKER) (test 0 % sqhf=609) NEUTROPHILS ABSOLUTE COUNT (BEAKER) (test 4.11 K/ L 1.78-5.38 tsre=512) LYMPHOCYTES ABSOLUTE COUNT (BEAKER) (test 0.63 K/ L 1.32-3.57 sjni=102) MONOCYTES ABSOLUTE COUNT (BEAKER) (test fkvw=246) 0.97 K/ L 0.30-0.82 EOSINOPHILS ABSOLUTE COUNT (BEAKER) (test 0.22 K/ L 0.04-0.54 cyqk=999) BASOPHILS ABSOLUTE COUNT (BEAKER) (test mecl=923) 0.01 K/ L 0.01-0.08 IMMATURE GRANULOCYTES-RELATIVE PERCENT (BEAKER) 0 % 0-1 (test ljfg=3026) PROTHROMBIN [id number] 04:50:00 Test Item Value Reference Range Comments PROTIME (BEAKER) (test nkgl=279) 16.9 seconds 11.7-14.7 INR (BEAKER) (test rvkz=533) 1.4 <=5.9 RECOMMENDED COUMADIN/WARFARIN INR THERAPY RANGESSTANDARD DOSE: 2.0 - 3.0 Includes: PROPHYLAXIS forvenous thrombosis, systemic embolization; TREATMENT for venous thrombosis and/or pulmonary embolus.HIGH RISK: Target INR is 2.5-3.5 for patients with mechanical heart valves.[id number] 07:40:00 Test Item Value Reference Range Comments PHOSPHORUS (BEAKER) (test wcrs=180) 4.1 mg/dL 2.3-4.7 [id number] 07:40:00 Test Item Value Reference Range Comments MAGNESIUM (BEAKER) (test gujm=689) 2.0 mg/dL 1.6-2.6 BASIC METABOLIC [id number] 07:40:00 Test Item Value Reference Range Comments SODIUM (BEAKER) (test 135 meq/L 136-145 yedy=055) POTASSIUM (BEAKER) (test 4.0 meq/L 3.5-5.1 rozn=465) CHLORIDE (BEAKER) (test 93 meq/L 98-107 rziu=518) CO2 (BEAKER) (test 32 meq/L 22-29 akkw=613) BLOOD UREA NITROGEN 53 mg/dL 7-21 (BEAKER) (test mxoc=838) CREATININE (BEAKER) (test 1.92 mg/dL 0.57-1.25 gmgb=294) GLUCOSE RANDOM (BEAKER) 73 mg/dL 70-105 (test zmnv=815) CALCIUM (BEAKER) (test 8.7 mg/dL 8.4-10.2 ngaj=076) EGFR (BEAKER) (test 36 mL/min/1.73 sq m ESTIMATED GFR IS NOT etie=5205) ACCURATE CREATININE CLEARANCE IN PREDICTING GLOMERULAR FILTRATION RATE. ESTIMATED GFR IS NOT APPLICABLE FOR DIALYSIS PATIENTS. HEPATIC FUNCTION [id number] 07:40:00 Test Item Value Reference Range Comments TOTAL PROTEIN (BEAKER) (test lomp=348) 7.4 gm/dL 6.0-8.3 ALBUMIN (BEAKER) (test omik=2098) 3.1 g/dL 3.5-5.0 BILIRUBIN TOTAL (BEAKER) (test pfrq=323) 1.3 mg/dL 0.2-1.2 BILIRUBIN DIRECT (BEAKER) (test nkmd=105) 0.9 mg/dL 0.1-0.5 ALKALINE PHOSPHATASE (BEAKER) (test aooy=699) 131 U/L 40-150 AST (SGOT) (BEAKER) (test egfo=460) 27 U/L 5-34 ALT (SGPT) (BEAKER) (test iyeg=835) 12 U/L 6-55 PROTHROMBIN [id number] 07:22:00 Test Item Value Reference Range Comments PROTIME (BEAKER) (test fnnf=011) 16.6 seconds 11.7-14.7 INR (BEAKER) (test bkaf=695) 1.3 <=5.9 RECOMMENDED COUMADIN/WARFARIN INR THERAPY RANGESSTANDARD DOSE: 2.0 - 3.0 Includes: PROPHYLAXIS forvenous thrombosis, systemic embolization; TREATMENT for venous thrombosis and/or pulmonary embolus.HIGH RISK: Target INR is 2.5-3.5 for patients with mechanical heart valves.CBC W/PLT COUNT & AUTO [id number] 07:20:00 Test Item Value Reference Range Comments WHITE BLOOD CELL COUNT (BEAKER) (test flxa=579) 6.7 K/ L 3.5-10.5 RED BLOOD CELL COUNT (BEAKER) (test qpro=501) 2.99 M/ L 4.63-6.08 HEMOGLOBIN (BEAKER) (test wfbx=980) 8.6 GM/DL 13.7-17.5 HEMATOCRIT (BEAKER) (test viib=862) 28.0 % 40.1-51.0 MEAN CORPUSCULAR VOLUME (BEAKER) (test cxpa=986) 93.6 fL 79.0-92.2 MEAN CORPUSCULAR HEMOGLOBIN (BEAKER) (test 28.8 pg 25.7-32.2 nyrt=486) MEAN CORPUSCULAR HEMOGLOBIN CONC (BEAKER) (test 30.7 GM/DL 32.3-36.5 sjmm=497) RED CELL DISTRIBUTION WIDTH (BEAKER) (test 20.5 % 11.6-14.4 ntdu=606) PLATELET COUNT (BEAKER) (test smyx=245) 89 K/CU MM 150-450 MEAN PLATELET VOLUME (BEAKER) (test ppym=245) 11.9 fL 9.4-12.4 NUCLEATED RED BLOOD CELLS (BEAKER) (test 0 /100 WBC 0-0 tzmc=615) NEUTROPHILS RELATIVE PERCENT (BEAKER) (test 76 % mwwf=797) LYMPHOCYTES RELATIVE PERCENT (BEAKER) (test 8 % mmil=182) MONOCYTES RELATIVE PERCENT (BEAKER) (test 13 % efpa=279) EOSINOPHILS RELATIVE PERCENT (BEAKER) (test 3 % pyzm=570) BASOPHILS RELATIVE PERCENT (BEAKER) (test 0 % krke=525) NEUTROPHILS ABSOLUTE COUNT (BEAKER) (test 5.07 K/ L 1.78-5.38 qjyd=511) LYMPHOCYTES ABSOLUTE COUNT (BEAKER) (test 0.54 K/ L 1.32-3.57 fgio=702) MONOCYTES ABSOLUTE COUNT (BEAKER) (test yuyr=312) 0.90 K/ L 0.30-0.82 EOSINOPHILS ABSOLUTE COUNT (BEAKER) (test 0.19 K/ L 0.04-0.54 qpoz=612) BASOPHILS ABSOLUTE COUNT (BEAKER) (test haqz=205) 0.00 K/ L 0.01-0.08 IMMATURE GRANULOCYTES-RELATIVE PERCENT (BEAKER) 0 % 0-1 (test klub=1627) RAD, ABDOMEN/KUB, 1 VIEW [id number] 22:01:00Reason for exam:->Abdominal pain, distensionFINAL REPORT EXAMINATION: [...] Larkin Verified Date/Time: 11/17/2017 22:01:55 Reading Location: [address] Reading Room RAD, CHEST, 1 VIEW, NON [id number] 11:17: 00Reason for exam:->chfShould this be performed at the bedside?->YesFINAL REPORT Chest one view compared to November 07 Discussion: Left chest ICD, cardiac valve replacement, cardiac prominence, pulmonary congestion, bilateral small effusions are noted. No pneumothorax. IMPRESSIONS: Interstitial congestion appears worse. Signed: Mamie KirbyVerified Date/Time: 11/17/2017 11:17:58 Reading Location: [facility] Reading Room CBC W/PLT COUNT & AUTO [id number] 05:57:00 Test Item Value Reference Range Comments WHITE BLOOD CELL COUNT (BEAKER) (test frjm=773) 7.0 K/ L 3.5-10.5 RED BLOOD CELL COUNT (BEAKER) (test khgx=351) 3.06 M/ L 4.63-6.08 HEMOGLOBIN (BEAKER) (test mikh=299) 8.5 GM/DL 13.7-17.5 HEMATOCRIT (BEAKER) (test uuag=472) 28.1 % 40.1-51.0 MEAN CORPUSCULAR VOLUME (BEAKER) (test umqs=697) 91.8 fL 79.0-92.2 MEAN CORPUSCULAR HEMOGLOBIN (BEAKER) (test 27.8 pg 25.7-32.2 azoo=158) MEAN CORPUSCULAR HEMOGLOBIN CONC (BEAKER) (test 30.2 GM/DL 32.3-36.5 swan=263) RED CELL DISTRIBUTION WIDTH (BEAKER) (test 19.7 % 11.6-14.4 kklc=635) PLATELET COUNT (BEAKER) (test dwpt=997) 89 K/CU MM 150-450 MEAN PLATELET VOLUME (BEAKER) (test skqg=622) 10.5 fL 9.4-12.4 NUCLEATED RED BLOOD CELLS (BEAKER) (test 0 /100 WBC 0-0 fbxa=174) NEUTROPHILS RELATIVE PERCENT (BEAKER) (test 75 % bkga=891) LYMPHOCYTES RELATIVE PERCENT (BEAKER) (test 9 % zjgm=507) MONOCYTES RELATIVE PERCENT (BEAKER) (test 13 % dhit=625) EOSINOPHILS RELATIVE PERCENT (BEAKER) (test 3 % xlsm=416) BASOPHILS RELATIVE PERCENT (BEAKER) (test 0 % eakd=708) NEUTROPHILS ABSOLUTE COUNT (BEAKER) (test 5.25 K/ L 1.78-5.38 kmsg=852) LYMPHOCYTES ABSOLUTE COUNT (BEAKER) (test 0.61 K/ L 1.32-3.57 ugtw=401) MONOCYTES ABSOLUTE COUNT (BEAKER) (test rrwx=997) 0.92 K/ L 0.30-0.82 EOSINOPHILS ABSOLUTE COUNT (BEAKER) (test 0.23 K/ L 0.04-0.54 ipxn=468) BASOPHILS ABSOLUTE COUNT (BEAKER) (test vpgw=936) 0.01 K/ L 0.01-0.08 IMMATURE GRANULOCYTES-RELATIVE PERCENT (BEAKER) 0 % 0-1 (test agco=8481) BLOOD GAS, [id number] 05:56:00 Test Item Value Reference Range Comments PH ARTERIAL (BEAKER) (test wvpk=243) 7.41 7.35-7.45 PCO2 ARTERIAL (BEAKER) (test qles=893) 57 mmHg 35-45 PO2 ARTERIAL (BEAKER) (test tacq=642) 89 mmHg 80-90 O2 SATURATION ARTERIAL (BEAKER) (test abas=712) 96.7 % 96.0-97.0 HCO3 ARTERIAL (BEAKER) (test hamf=550) 36 mmol/L 21-29 BASE EXCESS ARTERIAL (BEAKER) (test oxks=527) 9.7 mmol/L -2.0-3.0 PATIENT TEMPERATURE (BEAKER) (test avmx=1953) 37.0 C FIO2 (BEAKER) (test bwji=7512) 36.0 % Draw ABG first thing in AM once patient takes off BiPAP to start his day.[id number] 05:50:00 Test Item Value Reference Range Comments PHOSPHORUS (BEAKER) (test gyxi=533) 4.2 mg/dL 2.3-4.7 [id number] 05:50:00 Test Item Value Reference Range Comments MAGNESIUM (BEAKER) (test loxo=451) 2.0 mg/dL 1.6-2.6 BASIC METABOLIC [id number] 05:50:00 Test Item Value Reference Range Comments SODIUM (BEAKER) (test 135 meq/L 136-145 yzkd=341) POTASSIUM (BEAKER) (test 4.1 meq/L 3.5-5.1 iorh=655) CHLORIDE (BEAKER) (test 94 meq/L 98-107 bfrw=391) CO2 (BEAKER) (test 32 meq/L 22-29 lyoj=174) BLOOD UREA NITROGEN 51 mg/dL 7-21 (BEAKER) (test fxkd=503) CREATININE (BEAKER) (test 1.79 mg/dL 0.57-1.25 yhen=535) GLUCOSE RANDOM (BEAKER) 79 mg/dL 70-105 (test pslz=773) CALCIUM (BEAKER) (test 8.6 mg/dL 8.4-10.2 vkeh=512) EGFR (BEAKER) (test 39 mL/min/1.73 sq m ESTIMATED GFR IS NOT kqxl=3088) ACCURATE CREATININE CLEARANCE IN PREDICTING GLOMERULAR FILTRATION RATE. ESTIMATED GFR IS NOT APPLICABLE FOR DIALYSIS PATIENTS. HEPATIC FUNCTION [id number] 05:50:00 Test Item Value Reference Range Comments TOTAL PROTEIN (BEAKER) (test qpvd=041) 7.3 gm/dL 6.0-8.3 ALBUMIN (BEAKER) (test sdal=8665) 3.1 g/dL 3.5-5.0 BILIRUBIN TOTAL (BEAKER) (test ybwl=942) 1.3 mg/dL 0.2-1.2 BILIRUBIN DIRECT (BEAKER) (test nnlp=665) 0.8 mg/dL 0.1-0.5 ALKALINE PHOSPHATASE (BEAKER) (test soue=474) 135 U/L 40-150 AST (SGOT) (BEAKER) (test xdes=057) 29 U/L 5-34 ALT (SGPT) (BEAKER) (test ubfd=968) 11 U/L 6-55 PROTHROMBIN [id number] 05:35:00 Test Item Value Reference Range Comments PROTIME (BEAKER) (test xzcu=127) 16.7 seconds 11.7-14.7 INR (BEAKER) (test bezg=573) 1.4 <=5.9 RECOMMENDED COUMADIN/WARFARIN INR THERAPY RANGESSTANDARD DOSE: 2.0 - 3.0 Includes: PROPHYLAXIS forvenous thrombosis, systemic embolization; TREATMENT for venous thrombosis and/or pulmonary embolus.HIGH RISK: Target INR is 2.5-3.5 for patients with mechanical heart valves.PROTHROMBIN [id number] 05:38: 00 Test Item Value Reference Range Comments PROTIME (BEAKER) (test iewu=705) 16.9 seconds 11.7-14.7 INR (BEAKER) (test qmxa=967) 1.4 <=5.9 RECOMMENDED COUMADIN/WARFARIN INR THERAPY RANGESSTANDARD DOSE: 2.0 - 3.0 Includes: PROPHYLAXIS forvenous thrombosis, systemic embolization; TREATMENT for venous thrombosis and/or pulmonary embolus.HIGH RISK: Target INR is 2.5-3.5 for patients with mechanical heart valves.[id number] 05:35:00 Test Item Value Reference Range Comments PHOSPHORUS (BEAKER) (test gmzm=074) 3.8 mg/dL 2.3-4.7 [id number] 05:35:00 Test Item Value Reference Range Comments MAGNESIUM (BEAKER) (test pjwi=317) 2.0 mg/dL 1.6-2.6 BASIC METABOLIC [id number] 05:35:00 Test Item Value Reference Range Comments SODIUM (BEAKER) (test 135 meq/L 136-145 ghcl=934) POTASSIUM (BEAKER) (test 4.1 meq/L 3.5-5.1 tijv=115) CHLORIDE (BEAKER) (test 94 meq/L 98-107 lyvz=689) CO2 (BEAKER) (test 30 meq/L 22-29 tsyn=653) BLOOD UREA NITROGEN 49 mg/dL 7-21 (BEAKER) (test gdpg=863) CREATININE (BEAKER) (test 1.77 mg/dL 0.57-1.25 igmi=047) GLUCOSE RANDOM (BEAKER) 80 mg/dL 70-105 (test ekdl=027) CALCIUM (BEAKER) (test 8.6 mg/dL 8.4-10.2 lvpc=532) EGFR (BEAKER) (test 40 mL/min/1.73 sq m ESTIMATED GFR IS NOT qpns=2213) ACCURATE CREATININE CLEARANCE IN PREDICTING GLOMERULAR FILTRATION RATE. ESTIMATED GFR IS NOT APPLICABLE FOR DIALYSIS PATIENTS. HEPATIC FUNCTION [id number] 05:35:00 Test Item Value Reference Range Comments TOTAL PROTEIN (BEAKER) (test ycfm=030) 7.0 gm/dL 6.0-8.3 ALBUMIN (BEAKER) (test gawi=1335) 3.0 g/dL 3.5-5.0 BILIRUBIN TOTAL (BEAKER) (test vozm=604) 1.7 mg/dL 0.2-1.2 BILIRUBIN DIRECT (BEAKER) (test prjw=038) 1.1 mg/dL 0.1-0.5 ALKALINE PHOSPHATASE (BEAKER) (test aoln=689) 127 U/L 40-150 AST (SGOT) (BEAKER) (test dhoe=000) 28 U/L 5-34 ALT (SGPT) (BEAKER) (test gqmb=840) 11 U/L 6-55 CBC W/PLT COUNT & AUTO [id number] 05:16:00 Test Item Value Reference Range Comments WHITE BLOOD CELL COUNT (BEAKER) (test kkfb=647) 7.3 K/ L 3.5-10.5 RED BLOOD CELL COUNT (BEAKER) (test dkga=570) 3.10 M/ L 4.63-6.08 HEMOGLOBIN (BEAKER) (test iamp=882) 8.6 GM/DL 13.7-17.5 HEMATOCRIT (BEAKER) (test hjgr=344) 28.4 % 40.1-51.0 MEAN CORPUSCULAR VOLUME (BEAKER) (test uguk=112) 91.6 fL 79.0-92.2 MEAN CORPUSCULAR HEMOGLOBIN (BEAKER) (test 27.7 pg 25.7-32.2 npwf=359) MEAN CORPUSCULAR HEMOGLOBIN CONC (BEAKER) (test 30.3 GM/DL 32.3-36.5 bnpz=212) RED CELL DISTRIBUTION WIDTH (BEAKER) (test 19.7 % 11.6-14.4 iiix=976) PLATELET COUNT (BEAKER) (test qdei=865) 110 K/CU MM 150-450 MEAN PLATELET VOLUME (BEAKER) (test olcx=147) 10.6 fL 9.4-12.4 NUCLEATED RED BLOOD CELLS (BEAKER) (test 0 /100 WBC 0-0 euvy=346) NEUTROPHILS RELATIVE PERCENT (BEAKER) (test 78 % ucot=431) LYMPHOCYTES RELATIVE PERCENT (BEAKER) (test 9 % qzxy=558) MONOCYTES RELATIVE PERCENT (BEAKER) (test 11 % syvi=074) EOSINOPHILS RELATIVE PERCENT (BEAKER) (test 3 % qgng=095) BASOPHILS RELATIVE PERCENT (BEAKER) (test 0 % bhpm=554) NEUTROPHILS ABSOLUTE COUNT (BEAKER) (test 5.68 K/ L 1.78-5.38 mvsw=728) LYMPHOCYTES ABSOLUTE COUNT (BEAKER) (test 0.66 K/ L 1.32-3.57 uwtx=459) MONOCYTES ABSOLUTE COUNT (BEAKER) (test 0.77 K/ L 0.30-0.82 tsaz=008) EOSINOPHILS ABSOLUTE COUNT (BEAKER) (test 0.18 K/ L 0.04-0.54 bofq=399) BASOPHILS ABSOLUTE COUNT (BEAKER) (test 0.01 K/ L 0.01-0.08 uoiq=857) IMMATURE GRANULOCYTES-RELATIVE PERCENT (BEAKER) 0 % 0-1 (test tkbn=1889) POCT-GLUCOSE [id number] 22:27:00 Test Item Value Reference Range Comments POC-GLUCOSE METER (CamStentAKER) 100 mg/dL 70-110 TESTED AT [facility] [address] (test cpjd=3988) [facility] [address] SPUTUM CULTURE + GRAM [id number] 15:00:00 Test Item Value Reference Range Comments CULTURE (BEAKER) (test METHICILLIN RESISTANT 2+ Methicillin ymwy=8188) STAPHYLOCOCCUS AUREUS resistant Staphylococcus aureus Clindamycin (test code=10) Erythromycin (test code=4) Linezolid (test code=40) Nitrofurantoin (test code=23) Oxacillin (test code=14) Rifampin (test code=43) Tetracycline (test code=2) Trimethoprim + Sulfamethoxazole (test code=47) Vancomycin (test code=13) CULTURE (CamStentAKER) (test AEROMONAS SPECIES 2+ Aeromonas species psln=6517) Amikacin (test code=1) Susceptible 0-16 , Resistant [...] 1+ White blood cells (BEAKER) (test seen bybz=8213) GRAM STAIN RESULT 5-10 epithelial cells (BEAKER) (test npeq=945460) GRAM STAIN RESULT 3+ gram negative rods (BEAKER) (test nqnq=466048) GRAM STAIN RESULT <1+ gram positive (BEAKER) (test cocci in clusters eecc=730561) GRAM STAIN RESULT 1+ yeast (BEAKER) (test iocv=260777) 2+ Normal respiratory arsalan presentLACTIC ACID, VENOUS, WHOLE [id number] 07 :03:00 Test Item Value Reference Range Comments LACTATE BLOOD VENOUS (2) (BEAKER) (test 0.9 mmol/L 0.5-2.2 cixk=0787) Effective 10/24/2015: Units/Reference Range ChangeNew: 0.5-2.2 mmol/L Previous: 5 -20 mg/[id number] 06:36:00 Test Item Value Reference Range Comments PHOSPHORUS (BEAKER) (test wrdm=983) 3.7 mg/dL 2.3-4.7 [id number] 06:36:00 Test Item Value Reference Range Comments MAGNESIUM (BEAKER) (test pjdb=777) 2.1 mg/dL 1.6-2.6 BASIC METABOLIC [id number] 06:36:00 Test Item Value Reference Range Comments SODIUM (BEAKER) (test 136 meq/L 136-145 rxgd=352) POTASSIUM (BEAKER) (test 4.2 meq/L 3.5-5.1 vhvc=178) CHLORIDE (BEAKER) (test 94 meq/L 98-107 bvap=706) CO2 (BEAKER) (test 34 meq/L 22-29 dyun=049) BLOOD UREA NITROGEN 45 mg/dL 7-21 (BEAKER) (test cwmr=984) CREATININE (BEAKER) (test 1.82 mg/dL 0.57-1.25 pyci=219) GLUCOSE RANDOM (BEAKER) 75 mg/dL 70-105 (test wrpf=556) CALCIUM (BEAKER) (test 8.5 mg/dL 8.4-10.2 umbr=566) EGFR (BEAKER) (test 39 mL/min/1.73 sq m ESTIMATED GFR IS NOT mjdq=1164) ACCURATE CREATININE CLEARANCE IN PREDICTING GLOMERULAR FILTRATION RATE. ESTIMATED GFR IS NOT APPLICABLE FOR DIALYSIS PATIENTS. HEPATIC FUNCTION [id number] 06:36:00 Test Item Value Reference Range Comments TOTAL PROTEIN (BEAKER) (test pdgu=733) 6.9 gm/dL 6.0-8.3 ALBUMIN (BEAKER) (test tmlu=9670) 3.0 g/dL 3.5-5.0 BILIRUBIN TOTAL (BEAKER) (test engi=720) 1.2 mg/dL 0.2-1.2 BILIRUBIN DIRECT (BEAKER) (test qgkw=783) 0.8 mg/dL 0.1-0.5 ALKALINE PHOSPHATASE (BEAKER) (test bhql=197) 128 U/L 40-150 AST (SGOT) (BEAKER) (test cxon=920) 29 U/L 5-34 ALT (SGPT) (BEAKER) (test qbkq=502) 11 U/L 6-55 PROTHROMBIN [id number] 06:13:00 Test Item Value Reference Range Comments PROTIME (BEAKER) (test ptcr=857) 16.5 seconds 11.7-14.7 INR (BEAKER) (test fjmv=923) 1.3 <=5.9 RECOMMENDED COUMADIN/WARFARIN INR THERAPY RANGESSTANDARD DOSE: 2.0 - 3.0 Includes: PROPHYLAXIS forvenous thrombosis, systemic embolization; TREATMENT for venous thrombosis and/or pulmonary embolus.HIGH RISK: Target INR is 2.5-3.5 for patients with mechanical heart valves.CBC W/PLT COUNT & AUTO [id number] 06:06:00 Test Item Value Reference Range Comments WHITE BLOOD CELL COUNT (BEAKER) (test vxfu=583) 5.6 K/ L 3.5-10.5 RED BLOOD CELL COUNT (BEAKER) (test pyvg=985) 2.74 M/ L 4.63-6.08 HEMOGLOBIN (BEAKER) (test svby=679) 7.5 GM/DL 13.7-17.5 HEMATOCRIT (BEAKER) (test pdbj=905) 24.8 % 40.1-51.0 MEAN CORPUSCULAR VOLUME (BEAKER) (test svrz=177) 90.5 fL 79.0-92.2 MEAN CORPUSCULAR HEMOGLOBIN (BEAKER) (test 27.4 pg 25.7-32.2 hsqf=725) MEAN CORPUSCULAR HEMOGLOBIN CONC (BEAKER) (test 30.2 GM/DL 32.3-36.5 ohpi=249) RED CELL DISTRIBUTION WIDTH (BEAKER) (test 19.6 % 11.6-14.4 zmsr=193) PLATELET COUNT (BEAKER) (test vggp=290) 89 K/CU MM 150-450 MEAN PLATELET VOLUME (BEAKER) (test towk=554) 10.6 fL 9.4-12.4 NUCLEATED RED BLOOD CELLS (BEAKER) (test 0 /100 WBC 0-0 hair=212) NEUTROPHILS RELATIVE PERCENT (BEAKER) (test 73 % wbzx=976) LYMPHOCYTES RELATIVE PERCENT (BEAKER) (test 12 % wfqs=178) MONOCYTES RELATIVE PERCENT (BEAKER) (test 11 % pjhx=366) EOSINOPHILS RELATIVE PERCENT (BEAKER) (test 3 % zsku=804) BASOPHILS RELATIVE PERCENT (BEAKER) (test 0 % chrx=411) NEUTROPHILS ABSOLUTE COUNT (BEAKER) (test 4.06 K/ L 1.78-5.38 eyur=463) LYMPHOCYTES ABSOLUTE COUNT (BEAKER) (test 0.68 K/ L 1.32-3.57 acvt=960) MONOCYTES ABSOLUTE COUNT (BEAKER) (test xtvx=026) 0.63 K/ L 0.30-0.82 EOSINOPHILS ABSOLUTE COUNT (BEAKER) (test 0.14 K/ L 0.04-0.54 cfji=593) BASOPHILS ABSOLUTE COUNT (BEAKER) (test fayo=776) 0.02 K/ L 0.01-0.08 IMMATURE GRANULOCYTES-RELATIVE PERCENT (BEAKER) 1 % 0-1 (test tpla=9041) POCT-GLUCOSE [id number] 18:08:00 Test Item Value Reference Range Comments POC-GLUCOSE METER (BEAKER) 117 mg/dL 70-110 TESTED AT [facility] [address] [facility] (test wfwg=7981) [facility] [address] B-TYPE NATRIURETIC FACTOR (BNP)2017-11-14 10:59:00 Test Item Value Reference Range Comments B-TYPE NATRIURETIC PEPTIDE (BEAKER) (test 730 pg/mL 0-100 etie=261) [id number] 05:04:00 Test Item Value Reference Range Comments PHOSPHORUS (BEAKER) (test urlr=915) 2.8 mg/dL 2.3-4.7 [id number] 05:04:00 Test Item Value Reference Range Comments MAGNESIUM (BEAKER) (test jedk=874) 2.0 mg/dL 1.6-2.6 BASIC METABOLIC [id number] 05:04:00 Test Item Value Reference Range Comments SODIUM (BEAKER) (test 136 meq/L 136-145 twyg=941) POTASSIUM (BEAKER) (test 4.0 meq/L 3.5-5.1 jbpe=292) CHLORIDE (BEAKER) (test 95 meq/L 98-107 jnvg=942) CO2 (BEAKER) (test 30 meq/L 22-29 vzzr=170) BLOOD UREA NITROGEN 38 mg/dL 7-21 (BEAKER) (test mxfb=087) CREATININE (BEAKER) (test 1.73 mg/dL 0.57-1.25 otvq=645) GLUCOSE RANDOM (BEAKER) 79 mg/dL 70-105 (test mdeq=714) CALCIUM (BEAKER) (test 8.2 mg/dL 8.4-10.2 typt=097) EGFR (BEAKER) (test 41 mL/min/1.73 sq m ESTIMATED GFR IS NOT kddv=1339) ACCURATE CREATININE CLEARANCE IN PREDICTING GLOMERULAR FILTRATION RATE. ESTIMATED GFR IS NOT APPLICABLE FOR DIALYSIS PATIENTS. HEPATIC FUNCTION [id number] 05:04:00 Test Item Value Reference Range Comments TOTAL PROTEIN (BEAKER) (test jjfh=499) 6.3 gm/dL 6.0-8.3 ALBUMIN (BEAKER) (test nnjr=1798) 2.8 g/dL 3.5-5.0 BILIRUBIN TOTAL (BEAKER) (test xgnq=952) 1.0 mg/dL 0.2-1.2 BILIRUBIN DIRECT (BEAKER) (test msie=699) 0.6 mg/dL 0.1-0.5 ALKALINE PHOSPHATASE (BEAKER) (test dxtq=207) 120 U/L 40-150 AST (SGOT) (BEAKER) (test xvlt=163) 27 U/L 5-34 ALT (SGPT) (BEAKER) (test xkev=074) 10 U/L 6-55 [id number] 05:00:00 Test Item Value Reference Range Comments MAGNESIUM (BEAKER) (test jgjm=429) 2.1 mg/dL 1.6-2.6 [id number] 04:44:00 Test Item Value Reference Range Comments PARTIAL THROMBOPLASTIN TIME (BEAKER) (test 43.5 seconds 22.5-36.0 kkgv=704) PROTHROMBIN [id number] 04:43:00 Test Item Value Reference Range Comments PROTIME (BEAKER) (test scvg=428) 16.9 seconds 11.7-14.7 INR (BEAKER) (test rpdm=341) 1.4 <=5.9 RECOMMENDED COUMADIN/WARFARIN INR THERAPY RANGESSTANDARD DOSE: 2.0 - 3.0 Includes: PROPHYLAXIS forvenous thrombosis, systemic embolization; TREATMENT for venous thrombosis and/or pulmonary embolus.HIGH RISK: Target INR is 2.5-3.5 for patients with mechanical heart valves.CBC W/PLT COUNT & AUTO [id number] 04:36:00 Test Item Value Reference Range Comments WHITE BLOOD CELL COUNT (BEAKER) (test yiid=730) 5.3 K/ L 3.5-10.5 RED BLOOD CELL COUNT (BEAKER) (test yakw=729) 2.65 M/ L 4.63-6.08 HEMOGLOBIN (BEAKER) (test hwlc=024) 7.3 GM/DL 13.7-17.5 HEMATOCRIT (BEAKER) (test sfgu=272) 23.8 % 40.1-51.0 MEAN CORPUSCULAR VOLUME (BEAKER) (test fjlr=293) 89.8 fL 79.0-92.2 MEAN CORPUSCULAR HEMOGLOBIN (BEAKER) (test 27.5 pg 25.7-32.2 kukg=925) MEAN CORPUSCULAR HEMOGLOBIN CONC (BEAKER) (test 30.7 GM/DL 32.3-36.5 eecw=282) RED CELL DISTRIBUTION WIDTH (BEAKER) (test 19.2 % 11.6-14.4 ahte=372) PLATELET COUNT (BEAKER) (test ifbd=809) 108 K/CU MM 150-450 MEAN PLATELET VOLUME (BEAKER) (test enlv=112) 10.2 fL 9.4-12.4 NUCLEATED RED BLOOD CELLS (BEAKER) (test 0 /100 WBC 0-0 ierz=994) NEUTROPHILS RELATIVE PERCENT (BEAKER) (test 68 % deer=041) LYMPHOCYTES RELATIVE PERCENT (BEAKER) (test 15 % hpgl=290) MONOCYTES RELATIVE PERCENT (BEAKER) (test 13 % xpuy=362) EOSINOPHILS RELATIVE PERCENT (BEAKER) (test 4 % ixwt=768) BASOPHILS RELATIVE PERCENT (BEAKER) (test 0 % pvdf=155) NEUTROPHILS ABSOLUTE COUNT (BEAKER) (test 3.61 K/ L 1.78-5.38 xhzc=774) LYMPHOCYTES ABSOLUTE COUNT (BEAKER) (test 0.78 K/ L 1.32-3.57 nysg=059) MONOCYTES ABSOLUTE COUNT (BEAKER) (test 0.69 K/ L 0.30-0.82 cfzq=322) EOSINOPHILS ABSOLUTE COUNT (BEAKER) (test 0.19 K/ L 0.04-0.54 dlpl=748) BASOPHILS ABSOLUTE COUNT (BEAKER) (test 0.01 K/ L 0.01-0.08 lwka=957) IMMATURE GRANULOCYTES-RELATIVE PERCENT (BEAKER) 1 % 0-1 (test dppj=2809) POCT-GLUCOSE [id number] 13:32:00 Test Item Value Reference Range Comments POC-GLUCOSE METER (BEAKER) 95 mg/dL 70-110 TESTED AT [address] (test vxed=0823) [place] [address] POCT-GLUCOSE [id number] 12:23:00 Test Item Value Reference Range Comments POC-GLUCOSE METER (BEAKER) 112 mg/dL 70-110 TESTED AT [address] (test pvnm=8985) [place] [address] POCT-GLUCOSE [id number] 08:35:00 Test Item Value Reference Range Comments POC-GLUCOSE METER (BEAKER) 92 mg/dL 70-110 TESTED AT [address] (test askc=8801) [place] [address] LEGIONELLA [id number] 07:34:00 Test Item Value Reference Range Comments CULTURE (BEAKER) (test No Legionella species isolated sgzb=3113) POCT-GLUCOSE [id number] 05:56:00 Test Item Value Reference Range Comments POC-GLUCOSE METER (BEAKER) 88 mg/dL 70-110 TESTED AT [address] (test uleu=4127) [place] [id number] 05:21:00 Test Item Value Reference Range Comments PHOSPHORUS (BEAKER) (test pyvp=516) 2.8 mg/dL 2.3-4.7 [id number] 05:21:00 Test Item Value Reference Range Comments MAGNESIUM (BEAKER) (test xdnd=255) 1.4 mg/dL 1.6-2.6 BASIC METABOLIC [id number] 05:21:00 Test Item Value Reference Range Comments SODIUM (BEAKER) (test 136 meq/L 136-145 pljd=169) POTASSIUM (BEAKER) (test 3.6 meq/L 3.5-5.1 eukf=608) CHLORIDE (BEAKER) (test 94 meq/L 98-107 fbnv=860) CO2 (BEAKER) (test 35 meq/L 22-29 cwtm=026) BLOOD UREA NITROGEN 32 mg/dL 7-21 (BEAKER) (test mxco=517) CREATININE (BEAKER) (test 1.37 mg/dL 0.57-1.25 qauf=908) GLUCOSE RANDOM (BEAKER) 81 mg/dL 70-105 (test nuul=181) CALCIUM (BEAKER) (test 8.1 mg/dL 8.4-10.2 fafa=387) EGFR (BEAKER) (test 54 mL/min/1.73 sq m ESTIMATED GFR IS NOT nqdk=9604) ACCURATE CREATININE CLEARANCE IN PREDICTING GLOMERULAR FILTRATION RATE. ESTIMATED GFR IS NOT APPLICABLE FOR DIALYSIS PATIENTS. HEPATIC FUNCTION [id number] 05:21:00 Test Item Value Reference Range Comments TOTAL PROTEIN (BEAKER) (test omjl=343) 6.3 gm/dL 6.0-8.3 ALBUMIN (BEAKER) (test jedn=1924) 2.8 g/dL 3.5-5.0 BILIRUBIN TOTAL (BEAKER) (test ndbk=298) 1.0 mg/dL 0.2-1.2 BILIRUBIN DIRECT (BEAKER) (test ozon=725) 0.7 mg/dL 0.1-0.5 ALKALINE PHOSPHATASE (BEAKER) (test jowr=266) 114 U/L 40-150 AST (SGOT) (BEAKER) (test zbvh=699) 27 U/L 5-34 ALT (SGPT) (BEAKER) (test bgwg=070) 10 U/L 6-55 [id number] 04:50:00 Test Item Value Reference Range Comments PARTIAL THROMBOPLASTIN TIME (BEAKER) (test 42.0 seconds 22.5-36.0 wfdw=890) PROTHROMBIN [id number] 04:49:00 Test Item Value Reference Range Comments PROTIME (BEAKER) (test smdq=797) 17.1 seconds 11.7-14.7 INR (BEAKER) (test mcbp=317) 1.4 <=5.9 RECOMMENDED COUMADIN/WARFARIN INR THERAPY RANGESSTANDARD DOSE: 2.0 - 3.0 Includes: PROPHYLAXIS forvenous thrombosis, systemic embolization; TREATMENT for venous thrombosis and/or pulmonary embolus.HIGH RISK: Target INR is 2.5-3.5 for patients with mechanical heart valves.CBC W/PLT COUNT & AUTO [id number] 04:45:00 Test Item Value Reference Range Comments WHITE BLOOD CELL COUNT (BEAKER) (test zkfq=432) 4.2 K/ L 3.5-10.5 RED BLOOD CELL COUNT (BEAKER) (test aaao=209) 2.90 M/ L 4.63-6.08 HEMOGLOBIN (BEAKER) (test jtox=867) 7.9 GM/DL 13.7-17.5 HEMATOCRIT (BEAKER) (test dyux=731) 25.9 % 40.1-51.0 MEAN CORPUSCULAR VOLUME (BEAKER) (test lvok=924) 89.3 fL 79.0-92.2 MEAN CORPUSCULAR HEMOGLOBIN (BEAKER) (test 27.2 pg 25.7-32.2 tqrt=585) MEAN CORPUSCULAR HEMOGLOBIN CONC (BEAKER) (test 30.5 GM/DL 32.3-36.5 rppv=320) RED CELL DISTRIBUTION WIDTH (BEAKER) (test 18.7 % 11.6-14.4 ssij=297) PLATELET COUNT (BEAKER) (test nwpm=444) 105 K/CU MM 150-450 MEAN PLATELET VOLUME (BEAKER) (test lhhk=163) 9.9 fL 9.4-12.4 NUCLEATED RED BLOOD CELLS (BEAKER) (test 0 /100 WBC 0-0 lkgx=438) NEUTROPHILS RELATIVE PERCENT (BEAKER) (test 67 % ielb=380) LYMPHOCYTES RELATIVE PERCENT (BEAKER) (test 15 % slhp=912) MONOCYTES RELATIVE PERCENT (BEAKER) (test 15 % zraw=825) EOSINOPHILS RELATIVE PERCENT (BEAKER) (test 3 % jqyw=177) BASOPHILS RELATIVE PERCENT (BEAKER) (test 0 % ntlt=301) NEUTROPHILS ABSOLUTE COUNT (BEAKER) (test 2.80 K/ L 1.78-5.38 modd=263) LYMPHOCYTES ABSOLUTE COUNT (BEAKER) (test 0.62 K/ L 1.32-3.57 ouzd=747) MONOCYTES ABSOLUTE COUNT (BEAKER) (test 0.62 K/ L 0.30-0.82 dsnj=965) EOSINOPHILS ABSOLUTE COUNT (BEAKER) (test 0.13 K/ L 0.04-0.54 prqo=376) BASOPHILS ABSOLUTE COUNT (BEAKER) (test 0.01 K/ L 0.01-0.08 dgmd=662) IMMATURE GRANULOCYTES-RELATIVE PERCENT (BEAKER) 1 % 0-1 (test ntre=7170) POCT-GLUCOSE [id number] 00:34:00 Test Item Value Reference Range Comments POC-GLUCOSE METER (BEAKER) 91 mg/dL 70-110 TESTED AT [address] (test nrrw=4539) [place] [address] POCT-GLUCOSE [id number] 17:25:00 Test Item Value Reference Range Comments POC-GLUCOSE METER (BEAKER) 113 mg/dL 70-110 TESTED AT [address] (test xtkd=7396) [place] [address] POCT-GLUCOSE [id number] 12:10:00 Test Item Value Reference Range Comments POC-GLUCOSE METER (BEAKER) 97 mg/dL 70-110 TESTED AT [address] (test xerb=3527) [place] [address] BASIC METABOLIC [id number] 08:13:00 Test Item Value Reference Range Comments SODIUM (BEAKER) (test 136 meq/L 136-145 fqkq=593) POTASSIUM (BEAKER) (test 4.0 meq/L 3.5-5.1 tsop=127) CHLORIDE (BEAKER) (test 93 meq/L 98-107 tnql=704) CO2 (BEAKER) (test 35 meq/L 22-29 bowo=902) BLOOD UREA NITROGEN 28 mg/dL 7-21 (BEAKER) (test rdpa=151) CREATININE (BEAKER) (test 1.36 mg/dL 0.57-1.25 aupa=509) GLUCOSE RANDOM (BEAKER) 101 mg/dL 70-105 (test osrg=597) CALCIUM (BEAKER) (test 8.5 mg/dL 8.4-10.2 ucyn=116) EGFR (BEAKER) (test 54 mL/min/1.73 sq m ESTIMATED GFR IS NOT giwm=7081) ACCURATE CREATININE CLEARANCE IN PREDICTING GLOMERULAR FILTRATION RATE. ESTIMATED GFR IS NOT APPLICABLE FOR DIALYSIS PATIENTS. POCT-GLUCOSE [id number] 07:36:00 Test Item Value Reference Range Comments POC-GLUCOSE METER (BEAKER) 93 mg/dL 70-110 TESTED AT [address] (test ccdl=5678) [facility] [address] POCT-GLUCOSE [id number] 06:11:00 Test Item Value Reference Range Comments POC-GLUCOSE METER (BEAKER) 97 mg/dL 70-110 TESTED AT [address] (test hcoc=6977) [facility] [address] [id number] 04:20:00 Test Item Value Reference Range Comments PHOSPHORUS (BEAKER) (test lnhf=445) 3.2 mg/dL 2.3-4.7 [id number] 04:20:00 Test Item Value Reference Range Comments MAGNESIUM (BEAKER) (test hbii=354) 1.8 mg/dL 1.6-2.6 HEPATIC FUNCTION [id number] 04:20:00 Test Item Value Reference Range Comments TOTAL PROTEIN (BEAKER) (test snkw=908) 7.0 gm/dL 6.0-8.3 ALBUMIN (BEAKER) (test cywd=7168) 3.0 g/dL 3.5-5.0 BILIRUBIN TOTAL (BEAKER) (test igmh=451) 1.0 mg/dL 0.2-1.2 BILIRUBIN DIRECT (BEAKER) (test nvoy=244) 0.7 mg/dL 0.1-0.5 ALKALINE PHOSPHATASE (BEAKER) (test yedl=579) 115 U/L 40-150 AST (SGOT) (BEAKER) (test fnyd=389) 24 U/L 5-34 ALT (SGPT) (BEAKER) (test nazj=634) 9 U/L 6-55 [id number] 04:11:00 Test Item Value Reference Range Comments PARTIAL THROMBOPLASTIN TIME (BEAKER) (test 40.9 seconds 22.5-36.0 kzrh=155) PROTHROMBIN [id number] 04:10:00 Test Item Value Reference Range Comments PROTIME (BEAKER) (test jlsl=101) 16.7 seconds 11.7-14.7 INR (BEAKER) (test kxxh=280) 1.4 <=5.9 RECOMMENDED COUMADIN/WARFARIN INR THERAPY RANGESSTANDARD DOSE: 2.0 - 3.0 Includes: PROPHYLAXIS forvenous thrombosis, systemic embolization; TREATMENT for venous thrombosis and/or pulmonary embolus.HIGH RISK: Target INR is 2.5-3.5 for patients with mechanical heart valves.CBC W/PLT COUNT & AUTO [id number] 03:58:00 Test Item Value Reference Range Comments WHITE BLOOD CELL COUNT (BEAKER) (test uwcf=206) 4.6 K/ L 3.5-10.5 RED BLOOD CELL COUNT (BEAKER) (test ivqj=737) 3.13 M/ L 4.63-6.08 HEMOGLOBIN (BEAKER) (test utci=320) 8.5 GM/DL 13.7-17.5 HEMATOCRIT (BEAKER) (test yyzr=676) 28.5 % 40.1-51.0 MEAN CORPUSCULAR VOLUME (BEAKER) (test gzto=428) 91.1 fL 79.0-92.2 MEAN CORPUSCULAR HEMOGLOBIN (BEAKER) (test 27.2 pg 25.7-32.2 cvbe=023) MEAN CORPUSCULAR HEMOGLOBIN CONC (BEAKER) (test 29.8 GM/DL 32.3-36.5 oxbl=947) RED CELL DISTRIBUTION WIDTH (BEAKER) (test 18.7 % 11.6-14.4 hsdd=692) PLATELET COUNT (BEAKER) (test zwhh=781) 117 K/CU MM 150-450 MEAN PLATELET VOLUME (BEAKER) (test fvoh=463) 9.3 fL 9.4-12.4 NUCLEATED RED BLOOD CELLS (BEAKER) (test 0 /100 WBC 0-0 ttsd=512) NEUTROPHILS RELATIVE PERCENT (BEAKER) (test 66 % zwrt=885) LYMPHOCYTES RELATIVE PERCENT (BEAKER) (test 12 % xcff=946) MONOCYTES RELATIVE PERCENT (BEAKER) (test 18 % qbal=062) EOSINOPHILS RELATIVE PERCENT (BEAKER) (test 3 % ayhs=389) BASOPHILS RELATIVE PERCENT (BEAKER) (test 0 % mzil=501) NEUTROPHILS ABSOLUTE COUNT (BEAKER) (test 3.05 K/ L 1.78-5.38 yhau=446) LYMPHOCYTES ABSOLUTE COUNT (BEAKER) (test 0.54 K/ L 1.32-3.57 uqkf=010) MONOCYTES ABSOLUTE COUNT (BEAKER) (test 0.83 K/ L 0.30-0.82 thdh=046) EOSINOPHILS ABSOLUTE COUNT (BEAKER) (test 0.15 K/ L 0.04-0.54 vvqq=213) BASOPHILS ABSOLUTE COUNT (BEAKER) (test 0.01 K/ L 0.01-0.08 moys=331) IMMATURE GRANULOCYTES-RELATIVE PERCENT (BEAKER) 1 % 0-1 (test ywkw=7578) POCT-GLUCOSE [id number] 00:38:00 Test Item Value Reference Range Comments POC-GLUCOSE METER (BEAKER) 107 mg/dL 70-110 TESTED AT [address] (test stct=0613) [place] [address] POCT-GLUCOSE [id number] 18:47:00 Test Item Value Reference Range Comments POC-GLUCOSE METER (BEAKER) 98 mg/dL 70-110 TESTED AT [address] (test cpxz=7709) [place] [address] WOUND CULTURE + GRAM [id number] 13:17:00 Test Item Value Reference Range Comments CULTURE (BEAKER) (test asmm=2993) No growth GRAM STAIN RESULT (BEAKER) (test 1+ WBCs pgfk=3036) GRAM STAIN RESULT (BEAKER) (test No organisms seen hbie=98322) POCT-GLUCOSE [id number] 12:50:00 Test Item Value Reference Range Comments POC-GLUCOSE METER (BEAKER) 82 mg/dL 70-110 TESTED AT [address] (test qcaa=0855) [place] [address] POCT-GLUCOSE [id number] 08:51:00 Test Item Value Reference Range Comments POC-GLUCOSE METER (BEAKER) 94 mg/dL 70-110 TESTED AT [address] (test ktxj=2498) [place] [address] BASIC METABOLIC [id number] 06:55:00 Test Item Value Reference Range Comments SODIUM (BEAKER) (test 136 meq/L 136-145 mecz=307) POTASSIUM (BEAKER) (test 3.9 meq/L 3.5-5.1 mesp=924) CHLORIDE (BEAKER) (test 95 meq/L 98-107 gtli=792) CO2 (BEAKER) (test 32 meq/L 22-29 tfzu=992) BLOOD UREA NITROGEN 25 mg/dL 7-21 (BEAKER) (test wcxl=619) CREATININE (BEAKER) (test 1.26 mg/dL 0.57-1.25 ntxr=804) GLUCOSE RANDOM (BEAKER) 109 mg/dL 70-105 (test wtxi=062) CALCIUM (BEAKER) (test 8.6 mg/dL 8.4-10.2 immc=268) EGFR (BEAKER) (test 59 mL/min/1.73 sq m ESTIMATED GFR IS NOT afaq=2233) ACCURATE CREATININE CLEARANCE IN PREDICTING GLOMERULAR FILTRATION RATE. ESTIMATED GFR IS NOT APPLICABLE FOR DIALYSIS PATIENTS. [id number] 05:02:00 Test Item Value Reference Range Comments PHOSPHORUS (BEAKER) (test ephv=873) 2.9 mg/dL 2.3-4.7 [id number] 05:02:00 Test Item Value Reference Range Comments MAGNESIUM (BEAKER) (test dgtk=403) 2.1 mg/dL 1.6-2.6 HEPATIC FUNCTION [id number] 05:02:00 Test Item Value Reference Range Comments TOTAL PROTEIN (BEAKER) (test qyex=802) 7.2 gm/dL 6.0-8.3 ALBUMIN (BEAKER) (test nlbx=4916) 3.3 g/dL 3.5-5.0 BILIRUBIN TOTAL (BEAKER) (test rqtu=009) 1.1 mg/dL 0.2-1.2 BILIRUBIN DIRECT (BEAKER) (test cuhs=826) 0.7 mg/dL 0.1-0.5 ALKALINE PHOSPHATASE (BEAKER) (test edql=375) 106 U/L 40-150 AST (SGOT) (BEAKER) (test ihci=699) 25 U/L 5-34 ALT (SGPT) (BEAKER) (test nziz=629) 11 U/L 6-55 CBC W/PLT COUNT & AUTO [id number] 04:53:00 Test Item Value Reference Range Comments WHITE BLOOD CELL COUNT (BEAKER) (test onlq=190) 4.6 K/ L 3.5-10.5 RED BLOOD CELL COUNT (BEAKER) (test fiaq=049) 2.84 M/ L 4.63-6.08 HEMOGLOBIN (BEAKER) (test mkdh=391) 7.8 GM/DL 13.7-17.5 HEMATOCRIT (BEAKER) (test asme=834) 25.7 % 40.1-51.0 MEAN CORPUSCULAR VOLUME (BEAKER) (test jize=450) 90.5 fL 79.0-92.2 MEAN CORPUSCULAR HEMOGLOBIN (BEAKER) (test 27.5 pg 25.7-32.2 ksbl=887) MEAN CORPUSCULAR HEMOGLOBIN CONC (BEAKER) (test 30.4 GM/DL 32.3-36.5 gyqn=077) RED CELL DISTRIBUTION WIDTH (BEAKER) (test 18.3 % 11.6-14.4 aguy=819) PLATELET COUNT (BEAKER) (test vaxw=442) 72 K/CU MM 150-450 MEAN PLATELET VOLUME (BEAKER) (test zzuf=208) 9.6 fL 9.4-12.4 NUCLEATED RED BLOOD CELLS (BEAKER) (test 0 /100 WBC 0-0 shyd=404) NEUTROPHILS RELATIVE PERCENT (BEAKER) (test 62 % wvpk=008) LYMPHOCYTES RELATIVE PERCENT (BEAKER) (test 14 % vljf=964) MONOCYTES RELATIVE PERCENT (BEAKER) (test 19 % sare=613) EOSINOPHILS RELATIVE PERCENT (BEAKER) (test 4 % knrw=917) BASOPHILS RELATIVE PERCENT (BEAKER) (test 0 % ffgu=095) NEUTROPHILS ABSOLUTE COUNT (BEAKER) (test 2.82 K/ L 1.78-5.38 awwh=284) LYMPHOCYTES ABSOLUTE COUNT (BEAKER) (test 0.63 K/ L 1.32-3.57 npvk=312) MONOCYTES ABSOLUTE COUNT (BEAKER) (test jwlj=109) 0.88 K/ L 0.30-0.82 EOSINOPHILS ABSOLUTE COUNT (BEAKER) (test 0.19 K/ L 0.04-0.54 vcvb=656) BASOPHILS ABSOLUTE COUNT (BEAKER) (test effv=230) 0.01 K/ L 0.01-0.08 IMMATURE GRANULOCYTES-RELATIVE PERCENT (BEAKER) 1 % 0-1 (test tlgo=4579) [id number] 04:47:00 Test Item Value Reference Range Comments PARTIAL THROMBOPLASTIN TIME (BEAKER) (test 42.1 seconds 22.5-36.0 eipl=873) PROTHROMBIN [id number] 04:46:00 Test Item Value Reference Range Comments PROTIME (BEAKER) (test zzbn=739) 17.0 seconds 11.7-14.7 INR (BEAKER) (test ijua=662) 1.4 <=5.9 RECOMMENDED COUMADIN/WARFARIN INR THERAPY RANGESSTANDARD DOSE: 2.0 - 3.0 Includes: PROPHYLAXIS forvenous thrombosis, systemic embolization; TREATMENT for venous thrombosis and/or pulmonary embolus.HIGH RISK: Target INR is 2.5-3.5 for patients with mechanical heart valves.BLOOD GAS, [id number] 04:44:00 Test Item Value Reference Range Comments PH ARTERIAL (BEAKER) (test egro=964) 7.40 7.35-7.45 PCO2 ARTERIAL (BEAKER) (test ezpe=036) 60 mmHg 35-45 PO2 ARTERIAL (BEAKER) (test osws=315) 186 mmHg 80-90 O2 SATURATION ARTERIAL (BEAKER) (test xrgh=641) 99.2 % 96.0-97.0 HCO3 ARTERIAL (BEAKER) (test gqrz=564) 36 mmol/L 21-29 BASE EXCESS ARTERIAL (BEAKER) (test ucyw=801) 10.1 mmol/L -2.0-3.0 PATIENT TEMPERATURE (BEAKER) (test iycu=7167) 37.0 C FIO2 (BEAKER) (test zwah=7283) 30.0 % POCT-GLUCOSE [id number] 04:24:00 Test Item Value Reference Range Comments POC-GLUCOSE METER (BEAKER) 111 mg/dL 70-110 TESTED AT [address] (test cytf=4104) [place] [address] POCT-GLUCOSE [id number] 20:36:00 Test Item Value Reference Range Comments POC-GLUCOSE METER (BEAKER) 103 mg/dL 70-110 TESTED AT [address] (test darl=0767) [place] [address] POCT-GLUCOSE [id number] 17:22:00 Test Item Value Reference Range Comments POC-GLUCOSE METER (BEAKER) 111 mg/dL 70-110 TESTED AT [address] (test xgur=7566) [facility] [address] BLOOD GAS, [id number] 13:49:00 Test Item Value Reference Range Comments PH ARTERIAL (BEAKER) (test znmz=669) 7.36 7.35-7.45 PCO2 ARTERIAL (BEAKER) (test jhvx=170) 61 mmHg 35-45 PO2 ARTERIAL (BEAKER) (test juat=891) 164 mmHg 80-90 O2 SATURATION ARTERIAL (BEAKER) (test phpg=593) 99.0 % 96.0-97.0 HCO3 ARTERIAL (BEAKER) (test lbna=319) 34 mmol/L 21-29 BASE EXCESS ARTERIAL (BEAKER) (test fshu=068) 7.3 mmol/L -2.0-3.0 PATIENT TEMPERATURE (BEAKER) (test tlbh=0917) 37.0 C FIO2 (BEAKER) (test seqp=1420) 32.0 % POCT-GLUCOSE [id number] 07:39:00 Test Item Value Reference Range Comments POC-GLUCOSE METER (BEAKER) 86 mg/dL 70-110 TESTED AT [address] (test xbbs=9723) [facility] [address] BLOOD GAS, [id number] 04:32:00 Test Item Value Reference Range Comments PH ARTERIAL (BEAKER) (test geqo=555) 7.40 7.35-7.45 PCO2 ARTERIAL (BEAKER) (test jiye=427) 55 mmHg 35-45 PO2 ARTERIAL (BEAKER) (test pdfx=088) 187 mmHg 80-90 O2 SATURATION ARTERIAL (BEAKER) (test bnbc=246) 99.2 % 96.0-97.0 HCO3 ARTERIAL (BEAKER) (test zzrh=445) 33 mmol/L 21-29 BASE EXCESS ARTERIAL (BEAKER) (test xcem=414) 7.7 mmol/L -2.0-3.0 PATIENT TEMPERATURE (BEAKER) (test lcgx=9438) 37.5 C FIO2 (BEAKER) (test wthp=9826) 30.0 % CBC W/PLT COUNT & AUTO [id number] 04:13:00 Test Item Value Reference Range Comments WHITE BLOOD CELL COUNT (BEAKER) (test qtgu=987) 5.6 K/ L 3.5-10.5 RED BLOOD CELL COUNT (BEAKER) (test fqlq=907) 3.02 M/ L 4.63-6.08 HEMOGLOBIN (BEAKER) (test jkwg=447) 8.1 GM/DL 13.7-17.5 HEMATOCRIT (BEAKER) (test vjoa=059) 26.7 % 40.1-51.0 MEAN CORPUSCULAR VOLUME (BEAKER) (test zzkc=273) 88.4 fL 79.0-92.2 MEAN CORPUSCULAR HEMOGLOBIN (BEAKER) (test 26.8 pg 25.7-32.2 iruu=386) MEAN CORPUSCULAR HEMOGLOBIN CONC (BEAKER) (test 30.3 GM/DL 32.3-36.5 ujvt=319) RED CELL DISTRIBUTION WIDTH (BEAKER) (test 18.2 % 11.6-14.4 mpug=222) PLATELET COUNT (BEAKER) (test rlwn=569) 80 K/CU MM 150-450 MEAN PLATELET VOLUME (BEAKER) (test cbms=380) 9.6 fL 9.4-12.4 NUCLEATED RED BLOOD CELLS (BEAKER) (test 0 /100 WBC 0-0 jjtz=018) NEUTROPHILS RELATIVE PERCENT (BEAKER) (test 60 % hjzm=687) LYMPHOCYTES RELATIVE PERCENT (BEAKER) (test 13 % pijz=471) MONOCYTES RELATIVE PERCENT (BEAKER) (test 21 % kiyl=340) EOSINOPHILS RELATIVE PERCENT (BEAKER) (test 5 % bblg=258) BASOPHILS RELATIVE PERCENT (BEAKER) (test 0 % yxnk=161) NEUTROPHILS ABSOLUTE COUNT (BEAKER) (test 3.36 K/ L 1.78-5.38 gchj=288) LYMPHOCYTES ABSOLUTE COUNT (BEAKER) (test 0.74 K/ L 1.32-3.57 ikij=105) MONOCYTES ABSOLUTE COUNT (BEAKER) (test whxw=303) 1.20 K/ L 0.30-0.82 EOSINOPHILS ABSOLUTE COUNT (BEAKER) (test 0.26 K/ L 0.04-0.54 qere=278) BASOPHILS ABSOLUTE COUNT (BEAKER) (test ciby=460) 0.01 K/ L 0.01-0.08 IMMATURE GRANULOCYTES-RELATIVE PERCENT (BEAKER) 1 % 0-1 (test nymm=2469) PROTHROMBIN [id number] 04:04:00 Test Item Value Reference Range Comments PROTIME (BEAKER) (test cwwu=769) 19.6 seconds 11.7-14.7 INR (BEAKER) (test bgrg=952) 1.7 <=5.9 RECOMMENDED COUMADIN/WARFARIN INR THERAPY RANGESSTANDARD DOSE: 2.0 - 3.0 Includes: PROPHYLAXIS forvenous thrombosis, systemic embolization; TREATMENT for venous thrombosis and/or pulmonary embolus.HIGH RISK: Target INR is 2.5-3.5 for patients with mechanical heart valves.[id number] 04:04:00 Test Item Value Reference Range Comments PARTIAL THROMBOPLASTIN TIME (BEAKER) (test 39.7 seconds 22.5-36.0 nmkn=196) POCT-GLUCOSE [id number] 03:56:00 Test Item Value Reference Range Comments POC-GLUCOSE METER (BEAKER) 100 mg/dL 70-110 TESTED AT [address] (test weba=6859) [facility] [address] [id number] 03:55:00 Test Item Value Reference Range Comments PHOSPHORUS (BEAKER) (test tszl=090) 2.8 mg/dL 2.3-4.7 [id number] 03:55:00 Test Item Value Reference Range Comments MAGNESIUM (BEAKER) (test crqu=441) 1.9 mg/dL 1.6-2.6 BASIC METABOLIC [id number] 03:55:00 Test Item Value Reference Range Comments SODIUM (BEAKER) (test 133 meq/L 136-145 uhls=821) POTASSIUM (BEAKER) (test 3.7 meq/L 3.5-5.1 iyzf=033) CHLORIDE (BEAKER) (test 96 meq/L 98-107 fnje=185) CO2 (BEAKER) (test 31 meq/L 22-29 tguq=702) BLOOD UREA NITROGEN 26 mg/dL 7-21 (BEAKER) (test qkiq=956) CREATININE (BEAKER) (test 1.49 mg/dL 0.57-1.25 pbur=259) GLUCOSE RANDOM (BEAKER) 105 mg/dL 70-105 (test mdhb=159) CALCIUM (BEAKER) (test 8.1 mg/dL 8.4-10.2 uxqa=289) EGFR (BEAKER) (test 49 mL/min/1.73 sq m ESTIMATED GFR IS NOT mfgi=0852) ACCURATE CREATININE CLEARANCE IN PREDICTING GLOMERULAR FILTRATION RATE. ESTIMATED GFR IS NOT APPLICABLE FOR DIALYSIS PATIENTS. HEPATIC FUNCTION [id number] 03:55:00 Test Item Value Reference Range Comments TOTAL PROTEIN (BEAKER) (test ryvo=229) 6.6 gm/dL 6.0-8.3 ALBUMIN (BEAKER) (test ytor=0971) 2.8 g/dL 3.5-5.0 BILIRUBIN TOTAL (BEAKER) (test niyo=160) 1.0 mg/dL 0.2-1.2 BILIRUBIN DIRECT (BEAKER) (test tujt=949) 0.7 mg/dL 0.1-0.5 ALKALINE PHOSPHATASE (BEAKER) (test oqwb=022) 105 U/L 40-150 AST (SGOT) (BEAKER) (test gqta=191) 22 U/L 5-34 ALT (SGPT) (BEAKER) (test jinp=634) 10 U/L 6-55 POCT-GLUCOSE [id number] 00:35:00 Test Item Value Reference Range Comments POC-GLUCOSE METER (BEAKER) 99 mg/dL 70-110 TESTED AT [address] (test ybku=1982) [place] [id number] POCT-GLUCOSE [id number] 19:57:00 Test Item Value Reference Range Comments POC-GLUCOSE METER (BEAKER) 111 mg/dL 70-110 TESTED AT [address] (test bnts=8566) [place] [address] [id number] 18:31:00 Test Item Value Reference Range Comments MAGNESIUM (BEAKER) (test pmjm=971) 2.2 mg/dL 1.6-2.6 BASIC METABOLIC [id number] 18:31:00 Test Item Value Reference Range Comments SODIUM (BEAKER) (test 134 meq/L 136-145 kkzq=264) POTASSIUM (BEAKER) (test 4.1 meq/L 3.5-5.1 esxm=432) CHLORIDE (BEAKER) (test 98 meq/L 98-107 palk=746) CO2 (BEAKER) (test 28 meq/L 22-29 vdch=833) BLOOD UREA NITROGEN 25 mg/dL 7-21 (BEAKER) (test lpkk=948) CREATININE (BEAKER) (test 1.62 mg/dL 0.57-1.25 yerj=359) GLUCOSE RANDOM (BEAKER) 126 mg/dL 70-105 (test uvby=937) CALCIUM (BEAKER) (test 8.0 mg/dL 8.4-10.2 fmdq=059) EGFR (BEAKER) (test 44 mL/min/1.73 sq m ESTIMATED GFR IS NOT wxww=6042) ACCURATE CREATININE CLEARANCE IN PREDICTING GLOMERULAR FILTRATION RATE. ESTIMATED GFR IS NOT APPLICABLE FOR DIALYSIS PATIENTS. LACTIC ACID, VENOUS, WHOLE [id number] 18:28:00 Test Item Value Reference Range Comments LACTATE BLOOD VENOUS (2) 1.3 mmol/L 0.5-2.2 Specimen slightly hemolyzed (BEAKER) (test byez=8428) Effective 10/24/2015: Units/Reference Range ChangeNew: 0.5-2.2 mmol/L Previous: 5 -20 mg/dLPOCT-GLUCOSE [id number] 17:43:00 Test Item Value Reference Range Comments POC-GLUCOSE METER (BEAKER) 113 mg/dL 70-110 TESTED AT [facility] [address] [facility] (test ohhg=2140) [facility] [address] U/S, ASPIRATION/[id number] 16:44:00Reason for exam:->drainage of left lower extremity abscessFINAL REPORT Ultrasound guided fine-needle aspiration dated 11/09/2017 Procedure: Aspiration of subcutaneous collection in the left leg Pre-procedure diagnosis: Subcutaneous collection in the left leg Post-procedure diagnosis: Subcutaneous collection in the left lower Radiologist: Luisito Cohen MD Lint Cleaner: None Sedation: None. Anesthesia: 1% Xylocaine local [...] MDReport Verified Date/Time: 11/09/2017 16:44:58 Reading Location: [place] [id number] Ultrasound Reading Room Electronically signed by: LUISITO COHEN M.D. on 04:44 PMPOCT-GLUCOSE [id number] 11:56:00 Test Item Value Reference Range Comments POC-GLUCOSE METER (BEAKER) 112 mg/dL 70-110 TESTED AT [address] (test birt=5544) [place] [address] [id number] 10:27:00Medical Cytology Report Case: [id number] Authorizing Provider: Tonya Andrews MD Collected: 11/05/2017 1455 Ordering Location: [place] [address] ICU Received: 11/05/2017 1556 Pathologist: Lonny Barnard MD Specimen: Peritoneal Fluid PERITONEAL FLUID (CYTOSPINS): - NO MALIGNANT CELLS IDENTIFIED Signing Pathologist Direct Phone Line: [phone]; acute hypoxemic resp failure, DEO with hyperkalemia, acute decompensated RV failure, pulmonary edema, cardiogenic shock, suspected septic shockPERITONEAL FLUIDPrepared 4 cytospins from 50 ml dark yellow fluidCollected : [id number]: [id number] [facility], Department of Pathology, [address] [place] [address], Tel [facility], [facility] of [facility], [address] [place] [address], HrrmzhCommunity [facility], Department of Pathology, [address] [place] [address], Tel ULOOD GAS, [id number] 05:33:00 Test Item Value Reference Range Comments PH ARTERIAL (BEAKER) (test mcbj=967) 7.40 7.35-7.45 PCO2 ARTERIAL (BEAKER) (test vbyt=360) 53 mmHg 35-45 PO2 ARTERIAL (BEAKER) (test rvjf=549) 188 mmHg 80-90 O2 SATURATION ARTERIAL (BEAKER) (test goub=421) 99.3 % 96.0-97.0 HCO3 ARTERIAL (BEAKER) (test chks=563) 32 mmol/L 21-29 BASE EXCESS ARTERIAL (BEAKER) (test fctq=962) 6.5 mmol/L -2.0-3.0 PATIENT TEMPERATURE (BEAKER) (test tmpm=9989) 36.6 C FIO2 (BEAKER) (test cpxy=2043) 30.0 % CBC W/PLT COUNT & AUTO [id number] 04:44:00 Test Item Value Reference Range Comments WHITE BLOOD CELL COUNT (BEAKER) (test kjkt=147) 5.8 K/ L 3.5-10.5 RED BLOOD CELL COUNT (BEAKER) (test jklc=425) 3.21 M/ L 4.63-6.08 HEMOGLOBIN (BEAKER) (test lsmm=491) 8.8 GM/DL 13.7-17.5 HEMATOCRIT (BEAKER) (test fvwo=137) 28.8 % 40.1-51.0 MEAN CORPUSCULAR VOLUME (BEAKER) (test eyrc=607) 89.7 fL 79.0-92.2 MEAN CORPUSCULAR HEMOGLOBIN (BEAKER) (test 27.4 pg 25.7-32.2 yega=185) MEAN CORPUSCULAR HEMOGLOBIN CONC (BEAKER) (test 30.6 GM/DL 32.3-36.5 hnkq=254) RED CELL DISTRIBUTION WIDTH (BEAKER) (test 18.0 % 11.6-14.4 fauy=625) PLATELET COUNT (BEAKER) (test dxra=651) 61 K/CU MM 150-450 MEAN PLATELET VOLUME (BEAKER) (test pvpz=467) 10.0 fL 9.4-12.4 NUCLEATED RED BLOOD CELLS (BEAKER) (test 0 /100 WBC 0-0 erkk=132) NEUTROPHILS RELATIVE PERCENT (BEAKER) (test 66 % fhkc=458) LYMPHOCYTES RELATIVE PERCENT (BEAKER) (test 11 % gvli=656) MONOCYTES RELATIVE PERCENT (BEAKER) (test 16 % ytum=861) EOSINOPHILS RELATIVE PERCENT (BEAKER) (test 5 % qpqp=186) BASOPHILS RELATIVE PERCENT (BEAKER) (test 0 % glpo=838) NEUTROPHILS ABSOLUTE COUNT (BEAKER) (test 3.86 K/ L 1.78-5.38 ffcu=072) LYMPHOCYTES ABSOLUTE COUNT (BEAKER) (test 0.66 K/ L 1.32-3.57 ylvr=585) MONOCYTES ABSOLUTE COUNT (BEAKER) (test hjqa=348) 0.94 K/ L 0.30-0.82 EOSINOPHILS ABSOLUTE COUNT (BEAKER) (test 0.31 K/ L 0.04-0.54 uwwo=666) BASOPHILS ABSOLUTE COUNT (BEAKER) (test eciz=284) 0.01 K/ L 0.01-0.08 IMMATURE GRANULOCYTES-RELATIVE PERCENT (BEAKER) 1 % 0-1 (test wzao=7334) [id number] 04:40:00 Test Item Value Reference Range Comments PHOSPHORUS (BEAKER) (test fgrc=275) 1.9 mg/dL 2.3-4.7 [id number] 04:40:00 Test Item Value Reference Range Comments MAGNESIUM (BEAKER) (test ebxt=834) 1.4 mg/dL 1.6-2.6 HEPATIC FUNCTION [id number] 04:40:00 Test Item Value Reference Range Comments TOTAL PROTEIN (BEAKER) (test gyqo=565) 6.5 gm/dL 6.0-8.3 ALBUMIN (BEAKER) (test ggal=2520) 2.6 g/dL 3.5-5.0 BILIRUBIN TOTAL (BEAKER) (test vmzk=339) 1.1 mg/dL 0.2-1.2 BILIRUBIN DIRECT (BEAKER) (test afqd=637) 0.7 mg/dL 0.1-0.5 ALKALINE PHOSPHATASE (BEAKER) (test tdym=094) 106 U/L 40-150 AST (SGOT) (BEAKER) (test vrhs=326) 19 U/L 5-34 ALT (SGPT) (BEAKER) (test klof=882) 8 U/L 6-55 [id number] 04:33:00 Test Item Value Reference Range Comments PARTIAL THROMBOPLASTIN TIME (BEAKER) (test 42.8 seconds 22.5-36.0 hudb=196) PROTHROMBIN [id number] 04:32:00 Test Item Value Reference Range Comments PROTIME (BEAKER) (test eaob=365) 17.9 seconds 11.7-14.7 INR (BEAKER) (test buhh=159) 1.5 <=5.9 RECOMMENDED COUMADIN/WARFARIN INR THERAPY RANGESSTANDARD DOSE: 2.0 - 3.0 Includes: PROPHYLAXIS forvenous thrombosis, systemic embolization; TREATMENT for venous thrombosis and/or pulmonary embolus.HIGH RISK: Target INR is 2.5-3.5 for patients with mechanical heart valves.POCT-GLUCOSE [id number] 04:10:00 Test Item Value Reference Range Comments POC-GLUCOSE METER (BEAKER) 86 mg/dL 70-110 TESTED AT [address] (test vcia=0412) [place] [address] POCT-GLUCOSE [id number] 00:42:00 Test Item Value Reference Range Comments POC-GLUCOSE METER (BEAKER) 98 mg/dL 70-110 TESTED AT [address] (test eilz=5124) [place] [address] [id number] 18:52:00 Test Item Value Reference Range Comments MAGNESIUM (BEAKER) (test hxem=997) 1.8 mg/dL 1.6-2.6 BASIC METABOLIC [id number] 18:52:00 Test Item Value Reference Range Comments SODIUM (BEAKER) (test 133 meq/L 136-145 dkfw=242) POTASSIUM (BEAKER) (test 3.7 meq/L 3.5-5.1 akow=362) CHLORIDE (BEAKER) (test 98 meq/L 98-107 ayqz=795) CO2 (BEAKER) (test 30 meq/L 22-29 kpcf=930) BLOOD UREA NITROGEN 23 mg/dL 7-21 (BEAKER) (test itby=253) CREATININE (BEAKER) (test 1.92 mg/dL 0.57-1.25 rqic=553) GLUCOSE RANDOM (BEAKER) 119 mg/dL 70-105 (test lgfn=486) CALCIUM (BEAKER) (test 8.1 mg/dL 8.4-10.2 gjbe=836) EGFR (BEAKER) (test 36 mL/min/1.73 sq m ESTIMATED GFR IS NOT isrg=0016) ACCURATE CREATININE CLEARANCE IN PREDICTING GLOMERULAR FILTRATION RATE. ESTIMATED GFR IS NOT APPLICABLE FOR DIALYSIS PATIENTS. POCT-GLUCOSE [id number] 16:53:00 Test Item Value Reference Range Comments POC-GLUCOSE METER (BEAKER) 117 mg/dL 70-110 TESTED AT [address] (test uocf=5201) [place] [id number] POCT-GLUCOSE [id number] 12:18:00 Test Item Value Reference Range Comments POC-GLUCOSE METER (BEAKER) 116 mg/dL 70-110 TESTED AT [facility] [address] (test tflm=4037) [facility] [address] [id number] 10:46:00 Test Item Value Reference Range Comments MAGNESIUM (BEAKER) (test cbjj=904) 1.7 mg/dL 1.6-2.6 BASIC METABOLIC [id number] 10:46:00 Test Item Value Reference Range Comments SODIUM (BEAKER) (test 133 meq/L 136-145 dnab=949) POTASSIUM (BEAKER) (test 3.9 meq/L 3.5-5.1 bgts=818) CHLORIDE (BEAKER) (test 98 meq/L 98-107 uhgp=249) CO2 (BEAKER) (test 29 meq/L 22-29 kdyj=843) BLOOD UREA NITROGEN 22 mg/dL 7-21 (BEAKER) (test urwe=288) CREATININE (BEAKER) (test 1.98 mg/dL 0.57-1.25 wvgr=764) GLUCOSE RANDOM (BEAKER) 109 mg/dL 70-105 (test mvcf=726) CALCIUM (BEAKER) (test 8.0 mg/dL 8.4-10.2 tuoq=194) EGFR (BEAKER) (test 35 mL/min/1.73 sq m ESTIMATED GFR IS NOT yfoj=7907) ACCURATE CREATININE CLEARANCE IN PREDICTING GLOMERULAR FILTRATION RATE. ESTIMATED GFR IS NOT APPLICABLE FOR DIALYSIS PATIENTS. BLOOD GAS, [id number] 10:38:00 Test Item Value Reference Range Comments PH ARTERIAL (BEAKER) (test ihux=156) 7.31 7.35-7.45 PCO2 ARTERIAL (BEAKER) (test auud=947) 63 mmHg 35-45 PO2 ARTERIAL (BEAKER) (test plkj=681) 67 mmHg 80-90 O2 SATURATION ARTERIAL (BEAKER) (test oosb=093) 91.1 % 96.0-97.0 HCO3 ARTERIAL (BEAKER) (test cwne=326) 31 mmol/L 21-29 BASE EXCESS ARTERIAL (BEAKER) (test szsh=986) 4.1 mmol/L -2.0-3.0 PATIENT TEMPERATURE (BEAKER) (test dkdn=6550) 37.0 C FIO2 (BEAKER) (test uqlj=3313) 30.0 % BODY FLUID CULTURE + GRAM [id number] 10:08:00 Test Item Value Reference Range Comments CULTURE (BEAKER) (test giku=1398) No growth GRAM STAIN RESULT (BEAKER) (test <1+ WBCs detx=8194) GRAM STAIN RESULT (BEAKER) (test No organisms seen gezj=19956) POCT-GLUCOSE [id number] 07:39:00 Test Item Value Reference Range Comments POC-GLUCOSE METER (BEAKER) 112 mg/dL 70-110 TESTED AT [address] (test lfde=2372) [facility] [address] BLOOD [id number] 06:00:00 Test Item Value Reference Range Comments CULTURE (BEAKER) (test inuc=2968) No growth in 5 days BLOOD GAS, [id number] 05:28:00 Test Item Value Reference Range Comments PH ARTERIAL (BEAKER) (test cuwq=917) 7.33 7.35-7.45 PCO2 ARTERIAL (BEAKER) (test qjxc=030) 61 mmHg 35-45 PO2 ARTERIAL (BEAKER) (test mthh=792) 175 mmHg 80-90 O2 SATURATION ARTERIAL (BEAKER) (test kcfk=345) 99.0 % 96.0-97.0 HCO3 ARTERIAL (BEAKER) (test dxyz=444) 31 mmol/L 21-29 BASE EXCESS ARTERIAL (BEAKER) (test qonz=810) 4.2 mmol/L -2.0-3.0 PATIENT TEMPERATURE (BEAKER) (test zixb=3394) 36.8 C FIO2 (BEAKER) (test kghx=9480) 30.0 % BASIC METABOLIC [id number] 05:10:00 Test Item Value Reference Range Comments SODIUM (BEAKER) (test 133 meq/L 136-145 wzex=572) POTASSIUM (BEAKER) (test 3.9 meq/L 3.5-5.1 awwt=691) CHLORIDE (BEAKER) (test 99 meq/L 98-107 hfqb=784) CO2 (BEAKER) (test 29 meq/L 22-29 qugg=259) BLOOD UREA NITROGEN 22 mg/dL 7-21 (BEAKER) (test clth=611) CREATININE (BEAKER) (test 2.00 mg/dL 0.57-1.25 moia=074) GLUCOSE RANDOM (BEAKER) 93 mg/dL 70-105 (test amlt=280) CALCIUM (BEAKER) (test 7.9 mg/dL 8.4-10.2 scvq=311) EGFR (BEAKER) (test 35 mL/min/1.73 sq m ESTIMATED GFR IS NOT uahr=1945) ACCURATE CREATININE CLEARANCE IN PREDICTING GLOMERULAR FILTRATION RATE. ESTIMATED GFR IS NOT APPLICABLE FOR DIALYSIS PATIENTS. [id number] 05:06:00 Test Item Value Reference Range Comments PHOSPHORUS (BEAKER) (test cxdy=207) 2.5 mg/dL 2.3-4.7 [id number] 05:06:00 Test Item Value Reference Range Comments MAGNESIUM (BEAKER) (test cqcb=123) 1.7 mg/dL 1.6-2.6 HEPATIC FUNCTION [id number] 05:06:00 Test Item Value Reference Range Comments TOTAL PROTEIN (BEAKER) (test tmkr=587) 6.4 gm/dL 6.0-8.3 ALBUMIN (BEAKER) (test hfih=7299) 2.5 g/dL 3.5-5.0 BILIRUBIN TOTAL (BEAKER) (test fpzk=708) 1.1 mg/dL 0.2-1.2 BILIRUBIN DIRECT (BEAKER) (test fues=118) 0.8 mg/dL 0.1-0.5 ALKALINE PHOSPHATASE (BEAKER) (test blkc=912) 101 U/L 40-150 AST (SGOT) (BEAKER) (test tjgp=173) 18 U/L 5-34 ALT (SGPT) (BEAKER) (test dwgz=446) 11 U/L 6-55 [id number] 04:49:00 Test Item Value Reference Range Comments PARTIAL THROMBOPLASTIN TIME (BEAKER) (test 46.2 seconds 22.5-36.0 txsg=254) PROTHROMBIN [id number] 04:48:00 Test Item Value Reference Range Comments PROTIME (BEAKER) (test zgld=236) 18.2 seconds 11.7-14.7 INR (BEAKER) (test kray=670) 1.5 <=5.9 RECOMMENDED COUMADIN/WARFARIN INR THERAPY RANGESSTANDARD DOSE: 2.0 - 3.0 Includes: PROPHYLAXIS forvenous thrombosis, systemic embolization; TREATMENT for venous thrombosis and/or pulmonary embolus.HIGH RISK: Target INR is 2.5-3.5 for patients with mechanical heart valves.CBC W/PLT COUNT & AUTO [id number] 04:37:00 Test Item Value Reference Range Comments WHITE BLOOD CELL COUNT (BEAKER) (test vqcu=824) 5.8 K/ L 3.5-10.5 RED BLOOD CELL COUNT (BEAKER) (test cjkh=066) 3.11 M/ L 4.63-6.08 HEMOGLOBIN (BEAKER) (test jmpw=407) 8.4 GM/DL 13.7-17.5 HEMATOCRIT (BEAKER) (test plpq=842) 28.8 % 40.1-51.0 MEAN CORPUSCULAR VOLUME (BEAKER) (test tpqy=397) 92.6 fL 79.0-92.2 MEAN CORPUSCULAR HEMOGLOBIN (BEAKER) (test 27.0 pg 25.7-32.2 ameg=083) MEAN CORPUSCULAR HEMOGLOBIN CONC (BEAKER) (test 29.2 GM/DL 32.3-36.5 dlot=778) RED CELL DISTRIBUTION WIDTH (BEAKER) (test 18.3 % 11.6-14.4 hsld=143) PLATELET COUNT (BEAKER) (test zdfb=301) 50 K/CU MM 150-450 MEAN PLATELET VOLUME (BEAKER) (test cktu=237) 9.9 fL 9.4-12.4 NUCLEATED RED BLOOD CELLS (BEAKER) (test 0 /100 WBC 0-0 kgnk=805) NEUTROPHILS RELATIVE PERCENT (BEAKER) (test 71 % lvvf=354) LYMPHOCYTES RELATIVE PERCENT (BEAKER) (test 8 % qapb=469) MONOCYTES RELATIVE PERCENT (BEAKER) (test 15 % tizk=652) EOSINOPHILS RELATIVE PERCENT (BEAKER) (test 6 % uzqc=462) BASOPHILS RELATIVE PERCENT (BEAKER) (test 0 % mdlw=740) NEUTROPHILS ABSOLUTE COUNT (BEAKER) (test 4.06 K/ L 1.78-5.38 iegs=095) LYMPHOCYTES ABSOLUTE COUNT (BEAKER) (test 0.44 K/ L 1.32-3.57 rbte=536) MONOCYTES ABSOLUTE COUNT (BEAKER) (test erqw=429) 0.86 K/ L 0.30-0.82 EOSINOPHILS ABSOLUTE COUNT (BEAKER) (test 0.36 K/ L 0.04-0.54 oncu=555) BASOPHILS ABSOLUTE COUNT (BEAKER) (test tngh=259) 0.01 K/ L 0.01-0.08 IMMATURE GRANULOCYTES-RELATIVE PERCENT (BEAKER) 0 % 0-1 (test ydgf=1564) POCT-GLUCOSE [id number] 04:33:00 Test Item Value Reference Range Comments POC-GLUCOSE METER (BEAKER) 94 mg/dL 70-110 TESTED AT [address] (test yxpi=7885) [place] [address] [id number] 00:31:00 Test Item Value Reference Range Comments MAGNESIUM (BEAKER) (test atyz=144) 1.7 mg/dL 1.6-2.6 BASIC METABOLIC [id number] 00:31:00 Test Item Value Reference Range Comments SODIUM (BEAKER) (test 133 meq/L 136-145 svlr=735) POTASSIUM (BEAKER) (test 4.0 meq/L 3.5-5.1 spvq=498) CHLORIDE (BEAKER) (test 100 meq/L 98-107 yvmz=771) CO2 (BEAKER) (test 29 meq/L 22-29 cwfy=587) BLOOD UREA NITROGEN 22 mg/dL 7-21 (BEAKER) (test snhh=830) CREATININE (BEAKER) (test 2.05 mg/dL 0.57-1.25 pzny=346) GLUCOSE RANDOM (BEAKER) 116 mg/dL 70-105 (test zoji=921) CALCIUM (BEAKER) (test 8.0 mg/dL 8.4-10.2 dzwq=395) EGFR (BEAKER) (test 34 mL/min/1.73 sq m ESTIMATED GFR IS NOT mvac=1030) ACCURATE CREATININE CLEARANCE IN PREDICTING GLOMERULAR FILTRATION RATE. ESTIMATED GFR IS NOT APPLICABLE FOR DIALYSIS PATIENTS. POCT-GLUCOSE [id number] 00:10:00 Test Item Value Reference Range Comments POC-GLUCOSE METER (BEAKER) 127 mg/dL 70-110 TESTED AT [address] (test lyfq=0548) [place] [id number] BLOOD [id number] 00:00:00 Test Item Value Reference Range Comments CULTURE (BEAKER) (test njay=5153) No growth in 5 days [id number] 21:16:00 Test Item Value Reference Range Comments MAGNESIUM (BEAKER) (test xckg=114) 1.7 mg/dL 1.6-2.6 BASIC METABOLIC [id number] 21:16:00 Test Item Value Reference Range Comments SODIUM (BEAKER) (test 134 meq/L 136-145 uchg=884) POTASSIUM (BEAKER) (test 4.1 meq/L 3.5-5.1 vjdl=655) CHLORIDE (BEAKER) (test 101 meq/L 98-107 oliq=766) CO2 (BEAKER) (test 30 meq/L 22-29 ycsp=159) BLOOD UREA NITROGEN 21 mg/dL 7-21 (BEAKER) (test zwub=911) CREATININE (BEAKER) (test 2.00 mg/dL 0.57-1.25 ymax=190) GLUCOSE RANDOM (BEAKER) 93 mg/dL 70-105 (test kibp=298) CALCIUM (BEAKER) (test 8.2 mg/dL 8.4-10.2 jiuh=918) EGFR (BEAKER) (test 35 mL/min/1.73 sq m ESTIMATED GFR IS NOT vjgq=3843) ACCURATE CREATININE CLEARANCE IN PREDICTING GLOMERULAR FILTRATION RATE. ESTIMATED GFR IS NOT APPLICABLE FOR DIALYSIS PATIENTS. POCT-GLUCOSE [id number] 19:53:00 Test Item Value Reference Range Comments POC-GLUCOSE METER (BEAKER) 125 mg/dL 70-110 TESTED AT [address] (test iywv=9368) [facility] [address] SPUTUM CULTURE + GRAM [id number] 17:02:00 Test Item Value Reference Range Comments CULTURE (BEAKER) 2+ Capnocytophaga species (test uwns=9477) GRAM STAIN RESULT 1+ WBCs (BEAKER) (test jbxf=6218) GRAM STAIN RESULT 0-5 epithelial cells (BEAKER) (test pxbf=586941) GRAM STAIN RESULT <1+ gram positive cocci (BEAKER) (test in pairs eynw=671218) 2+ Normal respiratory arsalan presentBLOOD GAS, [id number] 15:26:00 Test Item Value Reference Range Comments PH ARTERIAL (BEAKER) (test yghg=166) 7.29 7.35-7.45 PCO2 ARTERIAL (BEAKER) (test bgbz=600) 61 mmHg 35-45 PO2 ARTERIAL (BEAKER) (test sljc=575) 69 mmHg 80-90 O2 SATURATION ARTERIAL (BEAKER) (test sllq=252) 91.2 % 96.0-97.0 HCO3 ARTERIAL (BEAKER) (test agmm=050) 29 mmol/L 21-29 BASE EXCESS ARTERIAL (BEAKER) (test layo=321) 1.3 mmol/L -2.0-3.0 PATIENT TEMPERATURE (BEAKER) (test vxpy=0170) 37.0 C FIO2 (BEAKER) (test rtlx=8685) 30.0 % [id number] 15:16:00 Test Item Value Reference Range Comments MAGNESIUM (BEAKER) (test wxqr=385) 1.8 mg/dL 1.6-2.6 BASIC METABOLIC [id number] 15:16:00 Test Item Value Reference Range Comments SODIUM (BEAKER) (test 135 meq/L 136-145 ldwd=664) POTASSIUM (BEAKER) (test 4.0 meq/L 3.5-5.1 xpxg=341) CHLORIDE (BEAKER) (test 101 meq/L 98-107 hlsm=728) CO2 (BEAKER) (test 30 meq/L 22-29 malk=122) BLOOD UREA NITROGEN 20 mg/dL 7-21 (BEAKER) (test koii=385) CREATININE (BEAKER) (test 1.92 mg/dL 0.57-1.25 itax=463) GLUCOSE RANDOM (BEAKER) 102 mg/dL 70-105 (test nlro=818) CALCIUM (BEAKER) (test 8.2 mg/dL 8.4-10.2 xqmm=434) EGFR (BEAKER) (test 36 mL/min/1.73 sq m ESTIMATED GFR IS NOT ovrl=7596) ACCURATE CREATININE CLEARANCE IN PREDICTING GLOMERULAR FILTRATION RATE. ESTIMATED GFR IS NOT APPLICABLE FOR DIALYSIS PATIENTS. [id number] 11:54:00 Test Item Value Reference Range Comments MAGNESIUM (BEAKER) (test uphc=988) 1.7 mg/dL 1.6-2.6 BASIC METABOLIC [id number] 11:54:00 Test Item Value Reference Range Comments SODIUM (BEAKER) (test 136 meq/L 136-145 oght=212) POTASSIUM (BEAKER) (test 4.1 meq/L 3.5-5.1 jxua=429) CHLORIDE (BEAKER) (test 102 meq/L 98-107 yzjn=287) CO2 (BEAKER) (test 30 meq/L 22-29 nlrk=275) BLOOD UREA NITROGEN 19 mg/dL 7-21 (BEAKER) (test fjbo=920) CREATININE (BEAKER) (test 1.80 mg/dL 0.57-1.25 gfos=666) GLUCOSE RANDOM (BEAKER) 92 mg/dL 70-105 (test dorp=829) CALCIUM (BEAKER) (test 8.3 mg/dL 8.4-10.2 gaua=267) EGFR (BEAKER) (test 39 mL/min/1.73 sq m ESTIMATED GFR IS NOT oqsi=8645) ACCURATE CREATININE CLEARANCE IN PREDICTING GLOMERULAR FILTRATION RATE. ESTIMATED GFR IS NOT APPLICABLE FOR DIALYSIS PATIENTS. BLOOD GAS, [id number] 10:31:00 Test Item Value Reference Range Comments PH ARTERIAL (BEAKER) (test lomo=326) 7.31 7.35-7.45 PCO2 ARTERIAL (BEAKER) (test akuh=835) 63 mm Hg 35-45 PO2 ARTERIAL (BEAKER) (test rhqq=683) 52 mm Hg 80-90 O2 SATURATION ARTERIAL (BEAKER) (test iqbx=740) 82.6 % 96.0-97.0 HCO3 ARTERIAL (BEAKER) (test kgir=588) 31 mmol/L 21-29 BASE EXCESS ARTERIAL (BEAKER) (test dlhf=578) 3.5 mmol/L -2.0-3.0 PATIENT TEMPERATURE (BEAKER) (test gnvv=4701) 37.0 FIO2 (BEAKER) (test fstg=9794) 24.0 POCT-GLUCOSE [id number] 08:46:00 Test Item Value Reference Range Comments POC-GLUCOSE METER (BEAKER) 100 mg/dL 70-110 TESTED AT [facility] [address] [facility] (test mygr=3093) [facility] [id number] LACTIC ACID, ARTERIAL, WHOLE [id number] 07:23:00 Test Item Value Reference Range Comments LACTATE BLOOD ARTERIAL (2) (BEAKER) (test 0.9 mmol/L 0.5-2.2 rtbo=5503) Effective 10/24/2015: Units/Reference Range ChangeNew: 0.5-2.2 mmol/L Previous: 5 -20 mg/dLBLOOD GAS, [id number] 07:04:00 Test Item Value Reference Range Comments PH ARTERIAL (BEAKER) (test drsl=664) 7.32 7.35-7.45 PCO2 ARTERIAL (BEAKER) (test dpyu=801) 61 mmHg 35-45 PO2 ARTERIAL (BEAKER) (test qlyx=254) 236 mmHg 80-90 O2 SATURATION ARTERIAL (BEAKER) (test wphr=235) 99.4 % 96.0-97.0 HCO3 ARTERIAL (BEAKER) (test qxex=001) 31 mmol/L 21-29 BASE EXCESS ARTERIAL (BEAKER) (test jisc=874) 3.8 mmol/L -2.0-3.0 PATIENT TEMPERATURE (BEAKER) (test wulr=9161) 36.7 C FIO2 (BEAKER) (test fkgy=5213) 30.0 % CBC W/PLT COUNT & AUTO [id number] 06:47:00 Test Item Value Reference Range Comments WHITE BLOOD CELL COUNT (BEAKER) (test gace=750) 6.0 K/ L 3.5-10.5 RED BLOOD CELL COUNT (BEAKER) (test wnmr=011) 3.30 M/ L 4.63-6.08 HEMOGLOBIN (BEAKER) (test jdou=186) 8.9 GM/DL 13.7-17.5 HEMATOCRIT (BEAKER) (test rnef=603) 31.4 % 40.1-51.0 MEAN CORPUSCULAR VOLUME (BEAKER) (test qdxh=675) 95.2 fL 79.0-92.2 MEAN CORPUSCULAR HEMOGLOBIN (BEAKER) (test 27.0 pg 25.7-32.2 zdai=910) MEAN CORPUSCULAR HEMOGLOBIN CONC (BEAKER) (test 28.3 GM/DL 32.3-36.5 sdbk=285) RED CELL DISTRIBUTION WIDTH (BEAKER) (test 18.6 % 11.6-14.4 jyot=546) PLATELET COUNT (BEAKER) (test quxt=447) 46 K/CU MM 150-450 MEAN PLATELET VOLUME (BEAKER) (test oyjx=077) 11.7 fL 9.4-12.4 NUCLEATED RED BLOOD CELLS (BEAKER) (test 0 /100 WBC 0-0 krls=643) NEUTROPHILS RELATIVE PERCENT (BEAKER) (test 76 % vvtk=482) LYMPHOCYTES RELATIVE PERCENT (BEAKER) (test 7 % zufz=229) MONOCYTES RELATIVE PERCENT (BEAKER) (test 11 % zkvp=045) EOSINOPHILS RELATIVE PERCENT (BEAKER) (test 6 % exvb=982) BASOPHILS RELATIVE PERCENT (BEAKER) (test 0 % lddf=265) NEUTROPHILS ABSOLUTE COUNT (BEAKER) (test 4.52 K/ L 1.78-5.38 rihk=839) LYMPHOCYTES ABSOLUTE COUNT (BEAKER) (test 0.42 K/ L 1.32-3.57 xvlo=878) MONOCYTES ABSOLUTE COUNT (BEAKER) (test azco=098) 0.66 K/ L 0.30-0.82 EOSINOPHILS ABSOLUTE COUNT (BEAKER) (test 0.35 K/ L 0.04-0.54 kfkg=515) BASOPHILS ABSOLUTE COUNT (BEAKER) (test ofcc=795) 0.01 K/ L 0.01-0.08 IMMATURE GRANULOCYTES-RELATIVE PERCENT (BEAKER) 0 % 0-1 (test catj=1083) COMPREHENSIVE METABOLIC [id number] 06:45:00 Test Item Value Reference Range Comments TOTAL PROTEIN (BEAKER) 6.7 gm/dL 6.0-8.3 (test jcik=856) ALBUMIN (BEAKER) (test 2.6 g/dL 3.5-5.0 slmx=2939) ALKALINE PHOSPHATASE 103 U/L 40-150 (BEAKER) (test uvfd=295) BILIRUBIN TOTAL (BEAKER) 1.3 mg/dL 0.2-1.2 (test qhoi=990) SODIUM (BEAKER) (test 136 meq/L 136-145 gqsg=763) POTASSIUM (BEAKER) (test 4.1 meq/L 3.5-5.1 qdll=058) CHLORIDE (BEAKER) (test 103 meq/L 98-107 obpw=328) CO2 (BEAKER) (test 29 meq/L 22-29 yimo=505) BLOOD UREA NITROGEN 19 mg/dL 7-21 (BEAKER) (test tvkf=331) CREATININE (BEAKER) (test 1.84 mg/dL 0.57-1.25 vizg=228) GLUCOSE RANDOM (BEAKER) 93 mg/dL 70-105 (test cpks=311) CALCIUM (BEAKER) (test 8.3 mg/dL 8.4-10.2 gcar=556) AST (SGOT) (BEAKER) (test 18 U/L 5-34 ltam=454) ALT (SGPT) (BEAKER) (test 10 U/L 6-55 atzc=086) EGFR (BEAKER) (test 38 mL/min/1.73 sq m ESTIMATED GFR IS NOT pmnh=5172) ACCURATE CREATININE CLEARANCE IN PREDICTING GLOMERULAR FILTRATION RATE. ESTIMATED GFR IS NOT APPLICABLE FOR DIALYSIS PATIENTS. CBC W/PLT COUNT & AUTO [id number] 06:44:00 Test Item Value Reference Range Comments WHITE BLOOD CELL COUNT (BEAKER) (test xruo=705) 6.1 K/ L 3.5-10.5 RED BLOOD CELL COUNT (BEAKER) (test yead=841) 3.29 M/ L 4.63-6.08 HEMOGLOBIN (BEAKER) (test xmhd=264) 8.8 GM/DL 13.7-17.5 HEMATOCRIT (BEAKER) (test hvtt=293) 31.3 % 40.1-51.0 MEAN CORPUSCULAR VOLUME (BEAKER) (test wmnn=723) 95.1 fL 79.0-92.2 MEAN CORPUSCULAR HEMOGLOBIN (BEAKER) (test 26.7 pg 25.7-32.2 xmmw=449) MEAN CORPUSCULAR HEMOGLOBIN CONC (BEAKER) (test 28.1 GM/DL 32.3-36.5 tbdd=557) RED CELL DISTRIBUTION WIDTH (BEAKER) (test 18.7 % 11.6-14.4 cihj=909) PLATELET COUNT (BEAKER) (test deol=927) 38 K/CU MM 150-450 MEAN PLATELET VOLUME (BEAKER) (test wtjr=377) 10.9 fL 9.4-12.4 NUCLEATED RED BLOOD CELLS (BEAKER) (test 0 /100 WBC 0-0 sbty=185) NEUTROPHILS RELATIVE PERCENT (BEAKER) (test 75 % tqom=245) LYMPHOCYTES RELATIVE PERCENT (BEAKER) (test 6 % spjg=391) MONOCYTES RELATIVE PERCENT (BEAKER) (test 12 % dane=337) EOSINOPHILS RELATIVE PERCENT (BEAKER) (test 6 % hcyq=904) BASOPHILS RELATIVE PERCENT (BEAKER) (test 0 % nssx=934) NEUTROPHILS ABSOLUTE COUNT (BEAKER) (test 4.57 K/ L 1.78-5.38 utzv=723) LYMPHOCYTES ABSOLUTE COUNT (BEAKER) (test 0.37 K/ L 1.32-3.57 bqbp=686) MONOCYTES ABSOLUTE COUNT (BEAKER) (test gqvm=348) 0.75 K/ L 0.30-0.82 EOSINOPHILS ABSOLUTE COUNT (BEAKER) (test 0.34 K/ L 0.04-0.54 yzld=376) BASOPHILS ABSOLUTE COUNT (BEAKER) (test dtht=591) 0.01 K/ L 0.01-0.08 IMMATURE GRANULOCYTES-RELATIVE PERCENT (BEAKER) 0 % 0-1 (test rxwa=9554) [id number] 06:14:00 Test Item Value Reference Range Comments PHOSPHORUS (BEAKER) (test ycke=015) 2.8 mg/dL 2.3-4.7 [id number] 06:14:00 Test Item Value Reference Range Comments MAGNESIUM (BEAKER) (test suku=789) 1.9 mg/dL 1.6-2.6 BASIC METABOLIC [id number] 06:14:00 Test Item Value Reference Range Comments SODIUM (BEAKER) (test 136 meq/L 136-145 yecz=653) POTASSIUM (BEAKER) (test 4.1 meq/L 3.5-5.1 ticg=765) CHLORIDE (BEAKER) (test 103 meq/L 98-107 lzbx=670) CO2 (BEAKER) (test 28 meq/L 22-29 oqto=284) BLOOD UREA NITROGEN 19 mg/dL 7-21 (BEAKER) (test mdds=858) CREATININE (BEAKER) (test 1.85 mg/dL 0.57-1.25 kjzt=863) GLUCOSE RANDOM (BEAKER) 95 mg/dL 70-105 (test dzgh=046) CALCIUM (BEAKER) (test 8.3 mg/dL 8.4-10.2 iudl=154) EGFR (BEAKER) (test 38 mL/min/1.73 sq m ESTIMATED GFR IS NOT tnih=2829) ACCURATE CREATININE CLEARANCE IN PREDICTING GLOMERULAR FILTRATION RATE. ESTIMATED GFR IS NOT APPLICABLE FOR DIALYSIS PATIENTS. HEPATIC FUNCTION [id number] 06:14:00 Test Item Value Reference Range Comments TOTAL PROTEIN (BEAKER) (test mjbq=818) 6.8 gm/dL 6.0-8.3 ALBUMIN (BEAKER) (test gztr=2337) 2.7 g/dL 3.5-5.0 BILIRUBIN TOTAL (BEAKER) (test puup=107) 1.3 mg/dL 0.2-1.2 BILIRUBIN DIRECT (BEAKER) (test tkou=445) 0.9 mg/dL 0.1-0.5 ALKALINE PHOSPHATASE (BEAKER) (test rosb=291) 103 U/L 40-150 AST (SGOT) (BEAKER) (test bitz=099) 16 U/L 5-34 ALT (SGPT) (BEAKER) (test abim=033) 10 U/L 6-55 [id number] 06:03:00 Test Item Value Reference Range Comments PARTIAL THROMBOPLASTIN TIME (BEAKER) (test 45.7 seconds 22.5-36.0 udpk=565) PROTHROMBIN [id number] 06:02:00 Test Item Value Reference Range Comments PROTIME (BEAKER) (test gpuj=530) 18.4 seconds 11.7-14.7 INR (BEAKER) (test jcmz=231) 1.5 <=5.9 RECOMMENDED COUMADIN/WARFARIN INR THERAPY RANGESSTANDARD DOSE: 2.0 - 3.0 Includes: PROPHYLAXIS forvenous thrombosis, systemic embolization; TREATMENT for venous thrombosis and/or pulmonary embolus.HIGH RISK: Target INR is 2.5-3.5 for patients with mechanical heart valves.BLOOD GAS, [id number] 05:41:00 Test Item Value Reference Range Comments PH ARTERIAL (BEAKER) (test moaw=071) 7.34 7.35-7.45 PCO2 ARTERIAL (BEAKER) (test hvfh=124) 54 mmHg 35-45 PO2 ARTERIAL (BEAKER) (test pofq=943) 109 mmHg 80-90 O2 SATURATION ARTERIAL (BEAKER) (test rlwg=019) 97.7 % 96.0-97.0 HCO3 ARTERIAL (BEAKER) (test ioal=830) 28 mmol/L 21-29 BASE EXCESS ARTERIAL (BEAKER) (test luit=656) 1.9 mmol/L -2.0-3.0 PATIENT TEMPERATURE (BEAKER) (test uffk=2629) 36.7 C FIO2 (BEAKER) (test wjqr=7666) 30.0 % POCT-GLUCOSE [id number] 05:17:00 Test Item Value Reference Range Comments POC-GLUCOSE METER (BEAKER) 93 mg/dL 70-110 TESTED AT [address] (test mdda=9836) [facility] [address] RAD, CHEST, 1 VIEW, NON [id number] 03:51:00Reason for exam:->hypercapnic respiratory failureShould this be performed at the bedside?->YesFINAL REPORT CLINICAL INDICATION: Respiratory failure Comparison: The cardiomediastinal contours are stable. Bilateral parenchymal and pleural opacities are order previous. There is no pneumothorax. Signed: Britton Esquivel MDReport Verified Date/Time: 11/07/2017 03:51:36 Reading Location: [address] Reading Room BLOOD GAS, [id number] 02:24:00 Test Item Value Reference Range Comments PH ARTERIAL (BEAKER) (test gfqi=531) 7.24 7.35-7.45 PCO2 ARTERIAL (BEAKER) (test nzby=660) 71 mmHg 35-45 PO2 ARTERIAL (BEAKER) (test acay=728) 71 mmHg 80-90 O2 SATURATION ARTERIAL (BEAKER) (test mkht=610) 91.2 % 96.0-97.0 HCO3 ARTERIAL (BEAKER) (test pxjv=984) 30 mmol/L 21-29 BASE EXCESS ARTERIAL (BEAKER) (test pcxn=472) 1.1 mmol/L -2.0-3.0 PATIENT TEMPERATURE (BEAKER) (test wwqx=6696) 36.7 C FIO2 (BEAKER) (test arag=9598) 30.0 % BLOOD GAS, [id number] 00:03:00 Test Item Value Reference Range Comments PH ARTERIAL (BEAKER) (test ycwb=841) 7.24 7.35-7.45 PCO2 ARTERIAL (BEAKER) (test lirj=049) 77 mmHg 35-45 PO2 ARTERIAL (BEAKER) (test ylmw=243) 73 mmHg 80-90 O2 SATURATION ARTERIAL (BEAKER) (test xzfz=805) 91.8 % 96.0-97.0 HCO3 ARTERIAL (BEAKER) (test imdn=929) 32 mmol/L 21-29 BASE EXCESS ARTERIAL (BEAKER) (test zzkd=070) 3.3 mmol/L -2.0-3.0 PATIENT TEMPERATURE (BEAKER) (test rfex=4638) 36.6 C FIO2 (BEAKER) (test kbje=5701) 35.0 % POCT-GLUCOSE [id number] 23:16:00 Test Item Value Reference Range Comments POC-GLUCOSE METER (BEAKER) 110 mg/dL 70-110 TESTED AT [address] (test xysw=5748) [facility] [address] BLOOD GAS, [id number] 09:56:00 Test Item Value Reference Range Comments PH ARTERIAL (BEAKER) (test hlkw=230) 7.24 7.35-7.45 PCO2 ARTERIAL (BEAKER) (test jzba=168) 69 mmHg 35-45 PO2 ARTERIAL (BEAKER) (test osnr=956) 227 mmHg 80-90 O2 SATURATION ARTERIAL (BEAKER) (test bkgl=157) 99.3 % 96.0-97.0 HCO3 ARTERIAL (BEAKER) (test jzgy=395) 29 mmol/L 21-29 BASE EXCESS ARTERIAL (BEAKER) (test hgfu=133) 0.8 mmol/L -2.0-3.0 PATIENT TEMPERATURE (BEAKER) (test fjoi=7464) 36.5 C FIO2 (BEAKER) (test jrsc=2282) 30.0 % BLOOD GAS, [id number] 09:14:00 Test Item Value Reference Range Comments PH ARTERIAL (BEAKER) (test aauv=690) 7.27 7.35-7.45 PCO2 ARTERIAL (BEAKER) (test qxaa=638) 71 mmHg 35-45 PO2 ARTERIAL (BEAKER) (test qwcz=100) 81 mmHg 80-90 O2 SATURATION ARTERIAL (BEAKER) (test sjjo=632) 94.0 % 96.0-97.0 HCO3 ARTERIAL (BEAKER) (test coba=595) 32 mmol/L 21-29 BASE EXCESS ARTERIAL (BEAKER) (test zehr=893) 4.2 mmol/L -2.0-3.0 PATIENT TEMPERATURE (BEAKER) (test vwdr=9351) 37.0 C FIO2 (BEAKER) (test xrjq=5834) 35.0 % POCT-GLUCOSE [id number] 04:52:00 Test Item Value Reference Range Comments POC-GLUCOSE METER (BEAKER) 94 mg/dL 70-110 TESTED AT [address] (test umto=8486) [place] [address] BLOOD GAS, [id number] 04:35:00 Test Item Value Reference Range Comments PH ARTERIAL (BEAKER) (test hrpa=351) 7.27 7.35-7.45 PCO2 ARTERIAL (BEAKER) (test zkve=082) 76 mmHg 35-45 PO2 ARTERIAL (BEAKER) (test foak=942) 279 mmHg 80-90 O2 SATURATION ARTERIAL (BEAKER) (test wbgs=024) 99.5 % 96.0-97.0 HCO3 ARTERIAL (BEAKER) (test oyaw=406) 34 mmol/L 21-29 BASE EXCESS ARTERIAL (BEAKER) (test ygpx=403) 4.2 mmol/L -2.0-3.0 PATIENT TEMPERATURE (BEAKER) (test wvod=3692) 36.5 C FIO2 (BEAKER) (test gzpe=2348) 60.0 % BASIC METABOLIC [id number] 04:06:00 Test Item Value Reference Range Comments SODIUM (BEAKER) (test 143 meq/L 136-145 pwzc=805) POTASSIUM (BEAKER) (test 3.9 meq/L 3.5-5.1 soom=441) CHLORIDE (BEAKER) (test 108 meq/L 98-107 utkh=384) CO2 (BEAKER) (test 29 meq/L 22-29 nyhp=129) BLOOD UREA NITROGEN 11 mg/dL 7-21 (BEAKER) (test gvpg=584) CREATININE (BEAKER) (test 1.23 mg/dL 0.57-1.25 csbe=260) GLUCOSE RANDOM (BEAKER) 103 mg/dL 70-105 (test jidq=919) CALCIUM (BEAKER) (test 8.8 mg/dL 8.4-10.2 cfht=220) EGFR (BEAKER) (test mL/min/1.73 sq m INSUFFICIENT CLINICAL DATA rreo=9977) TO CALCULATE ESTIMATED GFR. [id number] 04:05:00 Test Item Value Reference Range Comments PHOSPHORUS (BEAKER) (test ymmc=502) 3.1 mg/dL 2.3-4.7 [id number] 04:05:00 Test Item Value Reference Range Comments MAGNESIUM (BEAKER) (test psor=702) 2.0 mg/dL 1.6-2.6 HEPATIC FUNCTION [id number] 04:05:00 Test Item Value Reference Range Comments TOTAL PROTEIN (BEAKER) (test evsr=349) 7.4 gm/dL 6.0-8.3 ALBUMIN (BEAKER) (test nvmf=3392) 3.0 g/dL 3.5-5.0 BILIRUBIN TOTAL (BEAKER) (test ykhe=728) 1.5 mg/dL 0.2-1.2 BILIRUBIN DIRECT (BEAKER) (test bnxf=689) 1.1 mg/dL 0.1-0.5 ALKALINE PHOSPHATASE (BEAKER) (test gtep=795) 97 U/L 40-150 AST (SGOT) (BEAKER) (test sqfk=274) 24 U/L 5-34 ALT (SGPT) (BEAKER) (test kpwi=587) 11 U/L 6-55 BRONCHIAL CULTURE + GRAM [id number] 03:58:00 Test Item Value Reference Range Comments CULTURE (BEAKER) (test fzng=8957) No growth GRAM STAIN RESULT (BEAKER) (test 2+ WBCs bima=5754) GRAM STAIN RESULT (BEAKER) (test No organisms seen nwxn=74235) [id number] 03:57:00 Test Item Value Reference Range Comments PARTIAL THROMBOPLASTIN TIME (BEAKER) (test 47.1 seconds 22.5-36.0 pcsd=900) PROTHROMBIN [id number] 03:56:00 Test Item Value Reference Range Comments PROTIME (BEAKER) (test zvgo=958) 19.8 seconds 11.7-14.7 INR (BEAKER) (test bycv=203) 1.7 <=5.9 RECOMMENDED COUMADIN/WARFARIN INR THERAPY RANGESSTANDARD DOSE: 2.0 - 3.0 Includes: PROPHYLAXIS forvenous thrombosis, systemic embolization; TREATMENT for venous thrombosis and/or pulmonary embolus.HIGH RISK: Target INR is 2.5-3.5 for patients with mechanical heart valves.BRONCHIAL CULTURE + GRAM [id number] 03:53:00 Test Item Value Reference Range Comments CULTURE (BEAKER) (test uuac=4720) No growth GRAM STAIN RESULT (BEAKER) (test <1+ WBCs nrke=8815) GRAM STAIN RESULT (BEAKER) (test No organisms seen nyaw=78486) CBC W/PLT COUNT & AUTO [id number] 03:48:00 Test Item Value Reference Range Comments WHITE BLOOD CELL COUNT (BEAKER) (test xsjo=644) 8.0 K/ L 3.5-10.5 RED BLOOD CELL COUNT (BEAKER) (test gafx=024) 3.22 M/ L 4.63-6.08 HEMOGLOBIN (BEAKER) (test yqqm=155) 8.6 GM/DL 13.7-17.5 HEMATOCRIT (BEAKER) (test jqyz=434) 29.9 % 40.1-51.0 MEAN CORPUSCULAR VOLUME (BEAKER) (test tner=849) 92.9 fL 79.0-92.2 MEAN CORPUSCULAR HEMOGLOBIN (BEAKER) (test 26.7 pg 25.7-32.2 lqbd=787) MEAN CORPUSCULAR HEMOGLOBIN CONC (BEAKER) (test 28.8 GM/DL 32.3-36.5 rydh=478) RED CELL DISTRIBUTION WIDTH (BEAKER) (test 18.8 % 11.6-14.4 raik=940) PLATELET COUNT (BEAKER) (test ismg=127) 33 K/CU MM 150-450 MEAN PLATELET VOLUME (BEAKER) (test cxuw=367) 9.6 fL 9.4-12.4 NUCLEATED RED BLOOD CELLS (BEAKER) (test 0 /100 WBC 0-0 bazp=332) NEUTROPHILS RELATIVE PERCENT (BEAKER) (test 81 % diju=637) LYMPHOCYTES RELATIVE PERCENT (BEAKER) (test 4 % dllo=597) MONOCYTES RELATIVE PERCENT (BEAKER) (test 11 % okth=452) EOSINOPHILS RELATIVE PERCENT (BEAKER) (test 4 % vtes=150) BASOPHILS RELATIVE PERCENT (BEAKER) (test 0 % hvqi=060) NEUTROPHILS ABSOLUTE COUNT (BEAKER) (test 6.51 K/ L 1.78-5.38 secj=154) LYMPHOCYTES ABSOLUTE COUNT (BEAKER) (test 0.29 K/ L 1.32-3.57 oksv=993) MONOCYTES ABSOLUTE COUNT (BEAKER) (test bdhd=876) 0.88 K/ L 0.30-0.82 EOSINOPHILS ABSOLUTE COUNT (BEAKER) (test 0.29 K/ L 0.04-0.54 fwlh=591) BASOPHILS ABSOLUTE COUNT (BEAKER) (test eent=679) 0.01 K/ L 0.01-0.08 IMMATURE GRANULOCYTES-RELATIVE PERCENT (BEAKER) 1 % 0-1 (test hgds=3493) POCT-GLUCOSE [id number] 00:10:00 Test Item Value Reference Range Comments POC-GLUCOSE METER (BEAKER) 110 mg/dL 70-110 TESTED AT [address] (test rdzi=3787) [place] [address] POCT-GLUCOSE [id number] 20:09:00 Test Item Value Reference Range Comments POC-GLUCOSE METER (BEAKER) 90 mg/dL 70-110 TESTED AT [address] (test xpcf=0788) [place] [id number] BODY FLUID CELL COUNT WITH [id number] 17:48:00 Test Item Value Reference Range Comments APPEARANCE FLUID (BEAKER) (test qlnt=537) Moderately Bloody Clear COLOR FLUID (BEAKER) (test xvkn=672) Niru Colorless, Straw RBC FLUID (BEAKER) (test fvkj=592) [address] /cu mm <=1 ADJUSTED WBC FLUID (BEAKER) (test 115 /cu mm <=5 hmla=7479) LINING CELLS (BEAKER) (test sjeu=8942) 0 /cu mm <=1 NEUTROPHILS FLUID (BEAKER) (test 16 % qmmk=7871) LYMPHS FLUID (BEAKER) (test uzwe=608) 29 % MONO/MACROPHAGE FLUID (BEAKER) (test 55 % xwea=832) EOSINOPHILS FLUID (BEAKER) (test 0 % yymx=355) BASO FLUID (BEAKER) (test iwip=777) 0 % CONTAINER BODY FLUID (BEAKER) (test EDTA Tube mokp=8736) PROTEIN, BODY [id number] 15:47:00 Test Item Value Reference Range Comments PROTEIN FLUID (BEAKER) (test keru=183) 3.4 g/dL Absence of reference range indicates that normals have not been defined.Assay performance has not been validated for this type of specimen.GLUCOSE, BODY [id number] 15:47:00 Test Item Value Reference Range Comments GLUCOSE, BODY FLUID (BEAKER) (test qzyw=6437) 99 mg/dL Absence of reference range indicates that normals have not been defined.Assay performance has not been validated for this type of specimen.ALBUMIN, BODY [id number] 15:47:00 Test Item Value Reference Range Comments ALBUMIN FLUID (BEAKER) (test lmuj=042) 1.5 gm/dL Reference Range: No Normals Assay performance has not been validated for this type of specimen.BLOOD GAS, [id number] 15:39:00 Test Item Value Reference Range Comments PH ARTERIAL (BEAKER) (test oqgt=935) 7.29 7.35-7.45 PCO2 ARTERIAL (BEAKER) (test rpnm=609) 60 mmHg 35-45 PO2 ARTERIAL (BEAKER) (test rjun=171) 68 mmHg 80-90 O2 SATURATION ARTERIAL (BEAKER) (test jkno=809) 91.7 % 96.0-97.0 HCO3 ARTERIAL (BEAKER) (test skbr=217) 29 mmol/L 21-29 BASE EXCESS ARTERIAL (BEAKER) (test krlt=100) 1.2 mmol/L -2.0-3.0 PATIENT TEMPERATURE (BEAKER) (test auuo=8084) 36.5 C FIO2 (BEAKER) (test jdnh=0529) 28.0 % POCT-GLUCOSE [id number] 15:30:00 Test Item Value Reference Range Comments POC-GLUCOSE METER (BEAKER) 110 mg/dL 70-110 TESTED AT [address] (test zakd=6135) [facility] [address] BLOOD GAS, [id number] 14:36:00 Test Item Value Reference Range Comments PH ARTERIAL (BEAKER) (test tlfs=727) 7.28 7.35-7.45 PCO2 ARTERIAL (BEAKER) (test ozit=184) 62 mmHg 35-45 PO2 ARTERIAL (BEAKER) (test cboc=638) 105 mmHg 80-90 O2 SATURATION ARTERIAL (BEAKER) (test otnx=217) 97.3 % 96.0-97.0 HCO3 ARTERIAL (BEAKER) (test vucy=206) 29 mmol/L 21-29 BASE EXCESS ARTERIAL (BEAKER) (test klmz=032) 0.8 mmol/L -2.0-3.0 PATIENT TEMPERATURE (BEAKER) (test ikfh=1475) 36.0 C FIO2 (BEAKER) (test gcou=4646) 32.0 % B-TYPE NATRIURETIC FACTOR (BNP)2017-11-05 13:48:00 Test Item Value Reference Range Comments B-TYPE NATRIURETIC PEPTIDE (BEAKER) (test 1010 pg/mL 0-100 bixc=857) POCT-GLUCOSE [id number] 11:34:00 Test Item Value Reference Range Comments POC-GLUCOSE METER (BEAKER) 96 mg/dL 70-110 TESTED AT [address] (test ulzc=3102) [place] [id number] BLOOD GAS, [id number] 09:48:00 Test Item Value Reference Range Comments PH ARTERIAL (BEAKER) (test joum=697) 7.30 7.35-7.45 PCO2 ARTERIAL (BEAKER) (test hiev=306) 57 mmHg 35-45 PO2 ARTERIAL (BEAKER) (test jqai=776) 156 mmHg 80-90 O2 SATURATION ARTERIAL (BEAKER) (test qxrp=959) 98.8 % 96.0-97.0 HCO3 ARTERIAL (BEAKER) (test epxm=346) 28 mmol/L 21-29 BASE EXCESS ARTERIAL (BEAKER) (test tnts=319) 0.7 mmol/L -2.0-3.0 PATIENT TEMPERATURE (BEAKER) (test nudl=3722) 36.5 C FIO2 (BEAKER) (test sjbe=4022) 32.0 % URINE [id number] 09:43:00 Test Item Value Reference Range Comments CULTURE (BEAKER) (test wiiy=6870) No growth POCT-GLUCOSE [id number] 08:43:00 Test Item Value Reference Range Comments POC-GLUCOSE METER (BEAKER) 89 mg/dL 70-110 TESTED AT [address] (test mjrj=3152) [place] [address] CBC W/PLT COUNT & AUTO [id number] 08:04:00 Test Item Value Reference Range Comments WHITE BLOOD CELL COUNT (BEAKER) (test shpf=206) 10.7 K/ L 3.5-10.5 RED BLOOD CELL COUNT (BEAKER) (test mizd=453) 3.22 M/ L 4.63-6.08 HEMOGLOBIN (BEAKER) (test xddv=473) 8.7 GM/DL 13.7-17.5 HEMATOCRIT (BEAKER) (test kszz=703) 29.3 % 40.1-51.0 MEAN CORPUSCULAR VOLUME (BEAKER) (test nrqd=689) 91.0 fL 79.0-92.2 MEAN CORPUSCULAR HEMOGLOBIN (BEAKER) (test 27.0 pg 25.7-32.2 khbb=526) MEAN CORPUSCULAR HEMOGLOBIN CONC (BEAKER) (test 29.7 GM/DL 32.3-36.5 ngaf=140) RED CELL DISTRIBUTION WIDTH (BEAKER) (test 18.6 % 11.6-14.4 berz=357) PLATELET COUNT (BEAKER) (test trlb=495) 26 K/CU MM 150-450 MEAN PLATELET VOLUME (BEAKER) (test mrei=381) 10.3 fL 9.4-12.4 NUCLEATED RED BLOOD CELLS (BEAKER) (test 0 /100 WBC 0-0 zwab=643) RAD, CHEST, 1 VIEW, NON [id number] 05:05:00Reason for exam:->acute hypoxemic and hypercapnic respiratory [...] MDReport Verified Date/Time: 11/05/2017 05:05:03 Reading Location: [facility] C013Y CT Body Reading Room BLOOD GAS, [id number] 05: 02:00 Test Item Value Reference Range Comments PH ARTERIAL (BEAKER) (test fmbv=658) 7.27 7.35-7.45 PCO2 ARTERIAL (BEAKER) (test dgbe=603) 64 mmHg 35-45 PO2 ARTERIAL (BEAKER) (test ctcn=626) 152 mmHg 80-90 O2 SATURATION ARTERIAL (BEAKER) (test jvcr=022) 98.7 % 96.0-97.0 HCO3 ARTERIAL (BEAKER) (test rehh=702) 29 mmol/L 21-29 BASE EXCESS ARTERIAL (BEAKER) (test pnbf=218) 1.2 mmol/L -2.0-3.0 PATIENT TEMPERATURE (BEAKER) (test tsif=1896) 36.5 C FIO2 (BEAKER) (test qyuf=9360) 32.0 % BASIC METABOLIC [id number] 04:28:00 Test Item Value Reference Range Comments SODIUM (BEAKER) (test 139 meq/L 136-145 gubs=191) POTASSIUM (BEAKER) (test 3.5 meq/L 3.5-5.1 pmum=103) CHLORIDE (BEAKER) (test 104 meq/L 98-107 bvkf=413) CO2 (BEAKER) (test 28 meq/L 22-29 shcb=029) BLOOD UREA NITROGEN 27 mg/dL 7-21 (BEAKER) (test yxep=337) CREATININE (BEAKER) (test 2.00 mg/dL 0.57-1.25 lcsn=659) GLUCOSE RANDOM (BEAKER) 98 mg/dL 70-105 (test bnmv=928) CALCIUM (BEAKER) (test 8.2 mg/dL 8.4-10.2 usbz=768) EGFR (BEAKER) (test mL/min/1.73 sq m INSUFFICIENT CLINICAL DATA prlx=4285) TO CALCULATE ESTIMATED GFR. [id number] 04:26:00 Test Item Value Reference Range Comments PHOSPHORUS (BEAKER) (test nuoq=122) 5.6 mg/dL 2.3-4.7 [id number] 04:26:00 Test Item Value Reference Range Comments MAGNESIUM (BEAKER) (test rdvf=390) 2.3 mg/dL 1.6-2.6 HEPATIC FUNCTION [id number] 04:26:00 Test Item Value Reference Range Comments TOTAL PROTEIN (BEAKER) (test lzzc=440) 7.0 gm/dL 6.0-8.3 ALBUMIN (BEAKER) (test yldh=0454) 2.8 g/dL 3.5-5.0 BILIRUBIN TOTAL (BEAKER) (test nmos=519) 1.9 mg/dL 0.2-1.2 BILIRUBIN DIRECT (BEAKER) (test yqqs=134) 1.3 mg/dL 0.1-0.5 ALKALINE PHOSPHATASE (BEAKER) (test filg=884) 90 U/L 40-150 AST (SGOT) (BEAKER) (test fnhj=875) 25 U/L 5-34 ALT (SGPT) (BEAKER) (test kflu=963) 8 U/L 6-55 [id number] 04:25:00 Test Item Value Reference Range Comments PARTIAL THROMBOPLASTIN TIME (BEAKER) (test 47.1 seconds 22.5-36.0 pcsi=756) PROTHROMBIN [id number] 04:24:00 Test Item Value Reference Range Comments PROTIME (BEAKER) (test tqui=941) 23.5 seconds 11.7-14.7 INR (BEAKER) (test vqgs=626) 2.1 <=5.9 RECOMMENDED COUMADIN/WARFARIN INR THERAPY RANGESSTANDARD DOSE: 2.0 - 3.0 Includes: PROPHYLAXIS forvenous thrombosis, systemic embolization; TREATMENT for venous thrombosis and/or pulmonary embolus.HIGH RISK: Target INR is 2.5-3.5 for patients with mechanical heart valves.BLOOD GAS, [id number] 02:00:00 Test Item Value Reference Range Comments PH ARTERIAL (BEAKER) (test ltfd=694) 7.26 7.35-7.45 PCO2 ARTERIAL (BEAKER) (test nlfl=656) 69 mmHg 35-45 PO2 ARTERIAL (BEAKER) (test imqy=565) 77 mmHg 80-90 O2 SATURATION ARTERIAL (BEAKER) (test obbc=772) 93.4 % 96.0-97.0 HCO3 ARTERIAL (BEAKER) (test vwfu=345) 30 mmol/L 21-29 BASE EXCESS ARTERIAL (BEAKER) (test rjtw=346) 2.1 mmol/L -2.0-3.0 PATIENT TEMPERATURE (BEAKER) (test qvqt=4946) 36.5 C FIO2 (BEAKER) (test qlnn=7280) 28.0 % BLOOD GAS, [id number] 01:06:00 Test Item Value Reference Range Comments PH ARTERIAL (BEAKER) (test ieub=154) 7.23 7.35-7.45 PCO2 ARTERIAL (BEAKER) (test bkcl=005) 73 mmHg 35-45 PO2 ARTERIAL (BEAKER) (test msct=558) 132 mmHg 80-90 O2 SATURATION ARTERIAL (BEAKER) (test dhxv=364) 98.0 % 96.0-97.0 HCO3 ARTERIAL (BEAKER) (test xhbd=531) 30 mmol/L 21-29 BASE EXCESS ARTERIAL (BEAKER) (test lntk=793) 1.2 mmol/L -2.0-3.0 PATIENT TEMPERATURE (BEAKER) (test scqw=2634) 36.5 C FIO2 (BEAKER) (test bket=7360) 35.0 % BLOOD GAS, [id number] 00:42:00 Test Item Value Reference Range Comments PH ARTERIAL (BEAKER) (test drnc=807) 7.17 7.35-7.45 PCO2 ARTERIAL (BEAKER) (test vxqy=558) 86 mmHg 35-45 PO2 ARTERIAL (BEAKER) (test qqpi=096) 204 mmHg 80-90 O2 SATURATION ARTERIAL (BEAKER) (test lcgz=914) 99.0 % 96.0-97.0 HCO3 ARTERIAL (BEAKER) (test vmyb=075) 31 mmol/L 21-29 BASE EXCESS ARTERIAL (BEAKER) (test fczq=947) 0.7 mmol/L -2.0-3.0 PATIENT TEMPERATURE (BEAKER) (test aazy=6443) 36.5 C FIO2 (BEAKER) (test zntn=1604) 100.0 % POCT-GLUCOSE [id number] 23:30:00 Test Item Value Reference Range Comments POC-GLUCOSE METER (BEAKER) 96 mg/dL 70-110 TESTED AT [facility] [address] [facility] (test ilqo=9699) [facility] [address] POCT-GLUCOSE [id number] 19:56:00 Test Item Value Reference Range Comments POC-GLUCOSE METER (BEAKER) 113 mg/dL 70-110 TESTED AT [place] [id number] [facility] (test gxic=2748) [facility] [address] U/S, EXTREMITY (NON-VASCULAR), LEFT, [id number] 18:32:00Reason for exam:- >LLE, eval for abscessShould [...] Amador MDReportVerified Date/Time: 2017 18:32:04 Reading Location: [facility] C013W Consult Reading Room U/ S, ABDOMINAL, WITH [id number] 18:29:00Reason for exam:->Cirrhosis, rule out ascites and [...] MDReport Verified Date/Time: 11/04/2017 18:29:17 Reading Location: [address] Consult Reading Room POCT-GLUCOSE [id number] 17:27:00 Test Item Value Reference Range Comments POC-GLUCOSE METER (BEAKER) 95 mg/dL 70-110 TESTED AT [address] (test fdmv=8395) [place] [address] [id number] 16:02:00Medical Cytology Report Case: [id number] Authorizing Provider: Malena Viera, Collected: 11/03/2017 0302 OrderingLocation: [place] [address] ICU Received: 2017 1220 Pathologist: Lonny Barnard MD Specimen: Lung, Left Upper and Middle Lobes LEFT UPPER AND MIDDLE LOBES LUNG, BAL (CYTOSPINS): - NO MALIGNANT CELLS IDENTIFIED Signing Pathologist Direct Phone Line: [phone] signed by Lonny Barnard MD on 11/04/2017 at 4:02 [id number] of liver; encephalopathy LEFT UPPER AND MIDDLE LOBES LUNG BALPrepared 4 cytospins from 10 ml blood- tinged fluidCollected: [id number]: [id number] [facility], Departmentof Pathology, [address] [place] [address], [facility], [facility] of [facility], [address] [place] [address], [facility], Department of Pathology, [address] [place] [address], Tel [phone] 11:46:00 Test Item Value Reference Range Comments POC-GLUCOSE METER (BEAKER) 96 mg/dL 70-110 TESTED AT [address] (test clqq=1886) [place] [address] RAD, ABDOMEN/KUB, 1 VIEW [id number] 09:21:00Reason for exam:->abdominal distentionFINAL REPORT History: Abdominal [...] Felixort Verified Date/Time: 11/04/2017 09:21:20 Reading Location: [facility] Radiology Reading Room POCT-GLUCOSE [id number] 08:49:00 Test Item Value Reference Range Comments POC-GLUCOSE METER (BEAKER) 99 mg/dL 70-110 TESTED AT [address] (test kdej=7664) [facility] [address] BASIC METABOLIC [id number] 06:41:00 Test Item Value Reference Range Comments SODIUM (BEAKER) (test 135 meq/L 136-145 vscr=104) POTASSIUM (BEAKER) (test 3.5 meq/L 3.5-5.1 ince=280) CHLORIDE (BEAKER) (test 104 meq/L 98-107 wjwx=269) CO2 (BEAKER) (test 25 meq/L 22-29 bsrg=943) BLOOD UREA NITROGEN 23 mg/dL 7-21 (BEAKER) (test hrbl=425) CREATININE (BEAKER) (test 1.61 mg/dL 0.57-1.25 bawh=569) GLUCOSE RANDOM (BEAKER) 101 mg/dL 70-105 (test xowd=121) CALCIUM (BEAKER) (test 8.2 mg/dL 8.4-10.2 ttnl=239) EGFR (BEAKER) (test mL/min/1.73 sq m INSUFFICIENT CLINICAL DATA dnvx=2986) TO CALCULATE ESTIMATED GFR. Specimen slightly [id number] 06:38:00 Test Item Value Reference Range Comments PHOSPHORUS (BEAKER) (test wcbu=385) 1.7 mg/dL 2.3-4.7 [id number] 06:38:00 Test Item Value Reference Range Comments MAGNESIUM (BEAKER) (test mmpk=909) 1.8 mg/dL 1.6-2.6 HEPATIC FUNCTION [id number] 06:38:00 Test Item Value Reference Range Comments TOTAL PROTEIN (BEAKER) (test kcva=360) 6.9 gm/dL 6.0-8.3 ALBUMIN (BEAKER) (test fvbe=6707) 2.8 g/dL 3.5-5.0 BILIRUBIN TOTAL (BEAKER) (test fhlu=160) 2.3 mg/dL 0.2-1.2 BILIRUBIN DIRECT (BEAKER) (test dlwo=003) 1.4 mg/dL 0.1-0.5 ALKALINE PHOSPHATASE (BEAKER) (test eedc=328) 90 U/L 40-150 AST (SGOT) (BEAKER) (test rjqk=440) 21 U/L 5-34 ALT (SGPT) (BEAKER) (test ivpx=223) 8 U/L 6-55 Specimen slightly ictericRAD, CHEST, 1 VIEW, NON [id number] 06:05:00Reason for exam:->RESPIRATORY DISTRESSShould this be performed [...] MDReport Verified Date/Time: 11/04/2017 06:05:11 Reading Location: [facility] C013Y CT Body Reading Room POCT-GLUCOSE [id number] 06:03:00 Test Item Value Reference Range Comments POC-GLUCOSE METER (BEAKER) 109 mg/dL 70-110 TESTED AT [address] (test misf=0147) [facility] [address] [id number] 05:58:00 Test Item Value Reference Range Comments ALPHA-1 ANTITRYPSIN (BEAKER) (test vbjt=372) 184.70 mg/dL 90.00-200.00 CBC W/PLT COUNT & AUTO [id number] 05:52:00 Test Item Value Reference Range Comments WHITE BLOOD CELL COUNT (BEAKER) (test vluf=628) 6.4 K/ L 3.5-10.5 RED BLOOD CELL COUNT (BEAKER) (test fqbk=569) 3.45 M/ L 4.63-6.08 HEMOGLOBIN (BEAKER) (test efaw=053) 9.3 GM/DL 13.7-17.5 HEMATOCRIT (BEAKER) (test ouhy=461) 29.5 % 40.1-51.0 MEAN CORPUSCULAR VOLUME (BEAKER) (test vgoi=978) 85.5 fL 79.0-92.2 MEAN CORPUSCULAR HEMOGLOBIN (BEAKER) (test 27.0 pg 25.7-32.2 lgnj=590) MEAN CORPUSCULAR HEMOGLOBIN CONC (BEAKER) (test 31.5 GM/DL 32.3-36.5 zdzz=924) RED CELL DISTRIBUTION WIDTH (BEAKER) (test 18.4 % 11.6-14.4 xgnp=398) PLATELET COUNT (BEAKER) (test rpid=076) 25 K/CU MM 150-450 MEAN PLATELET VOLUME (BEAKER) (test dtlt=475) 8.5 fL 9.4-12.4 NUCLEATED RED BLOOD CELLS (BEAKER) (test 0 /100 WBC 0-0 xolt=615) NEUTROPHILS RELATIVE PERCENT (BEAKER) (test 85 % lqll=622) LYMPHOCYTES RELATIVE PERCENT (BEAKER) (test 6 % avpb=545) MONOCYTES RELATIVE PERCENT (BEAKER) (test 6 % herq=247) EOSINOPHILS RELATIVE PERCENT (BEAKER) (test 2 % kxbo=325) BASOPHILS RELATIVE PERCENT (BEAKER) (test 0 % rwwm=414) NEUTROPHILS ABSOLUTE COUNT (BEAKER) (test 5.44 K/ L 1.78-5.38 cxmu=041) LYMPHOCYTES ABSOLUTE COUNT (BEAKER) (test 0.38 K/ L 1.32-3.57 jpby=692) MONOCYTES ABSOLUTE COUNT (BEAKER) (test rkca=408) 0.39 K/ L 0.30-0.82 EOSINOPHILS ABSOLUTE COUNT (BEAKER) (test 0.13 K/ L 0.04-0.54 wmmq=039) BASOPHILS ABSOLUTE COUNT (BEAKER) (test szud=612) 0.01 K/ L 0.01-0.08 IMMATURE GRANULOCYTES-RELATIVE PERCENT (BEAKER) 1 % 0-1 (test jiiz=8029) PROTHROMBIN [id number] 05:50:00 Test Item Value Reference Range Comments PROTIME (BEAKER) (test gpjd=253) 23.5 seconds 11.7-14.7 INR (BEAKER) (test ydoy=369) 2.1 <=5.9 RECOMMENDED COUMADIN/WARFARIN INR THERAPY RANGESSTANDARD DOSE: 2.0 - 3.0 Includes: PROPHYLAXIS forvenous thrombosis, systemic embolization; TREATMENT for venous thrombosis and/or pulmonary embolus.HIGH RISK: Target INR is 2.5-3.5 for patients with mechanical heart valves.[id number] 05:50:00 Test Item Value Reference Range Comments PARTIAL THROMBOPLASTIN TIME (BEAKER) (test 46.6 seconds 22.5-36.0 obzm=657) BLOOD GAS, [id number] 05:47:00 Test Item Value Reference Range Comments PH ARTERIAL (BEAKER) (test ngyw=586) 7.51 7.35-7.45 PCO2 ARTERIAL (BEAKER) (test uezb=721) 37 mmHg 35-45 PO2 ARTERIAL (BEAKER) (test ckuu=797) 66 mmHg 80-90 O2 SATURATION ARTERIAL (BEAKER) (test uyfr=420) 95.0 % 96.0-97.0 HCO3 ARTERIAL (BEAKER) (test ohys=358) 29 mmol/L 21-29 BASE EXCESS ARTERIAL (BEAKER) (test wodt=984) 5.2 mmol/L -2.0-3.0 PATIENT TEMPERATURE (BEAKER) (test cfzv=4223) 36.7 C FIO2 (BEAKER) (test xawn=9856) 30.0 % POCT-GLUCOSE [id number] 02:05:00 Test Item Value Reference Range Comments POC-GLUCOSE METER (BEAKER) 90 mg/dL 70-110 TESTED AT [address] (test zexw=8212) [place] [address] POCT-GLUCOSE [id number] 21:31:00 Test Item Value Reference Range Comments POC-GLUCOSE METER (BEAKER) 91 mg/dL 70-110 TESTED AT [address] (test yfpw=5468) [place] [address] POCT-GLUCOSE [id number] 15:13:00 Test Item Value Reference Range Comments POC-GLUCOSE METER (BEAKER) 108 mg/dL 70-110 TESTED AT [address] (test xrye=7803) [place] [address] SPIN/CONCENTRATION [id number] 13:59:00 Test Item Value Reference Range Comments CONCENTRATION CHARGED (BEAKER) (test yvyv=1031) Done SPIN/CONCENTRATION [id number] 13:59:00 Test Item Value Reference Range Comments CONCENTRATION CHARGED (BEAKER) (test cvor=7078) Done [id number] 13:58:00 Test Item Value Reference Range Comments PROCALCITONIN (BEAKER) (test btkg=2405) 0.60 ng/mL <0.05 SEPSIS RISK (ng/mL)Low: 0.05-0.50Intermediate: 0.51-2.00High: & gt;=2.01POCT-GLUCOSE [id number] 11:08:00 Test Item Value Reference Range Comments POC-GLUCOSE METER (BEAKER) 102 mg/dL 70-110 TESTED AT [address] (test skbp=3673) [place] [address] PERIPHERAL BLOOD SMEAR - PATHOLOGIST [id number] 10:26:00 Test Item Value Reference Range Comments RBC MORPHOLOGY (BEAKER) (test Hypochromasia loup=2551) RBC MORPHOLOGY (BEAKER) (test Anisocytosis hqao=24088) RBC MORPHOLOGY (BEAKER) (test Polychromasia mnom=80349) WBC MORPHOLOGY (BEAKER) (test See comment lkcx=0643) PLT MORPHOLOGY (BEAKER) (test See comment ialt=5521) PERIPHERAL SMR REVIEW WBCs normal in number with rare (BEAKER) (test jtvo=1685) atypical lymphocytes. Platelets decreased in number with increased number of large forms and mild platelet clumping with few small platelet aggregates identified. Numerical value may not reflect true platelet count. [id number] Filippo Winter MD (electronic (BEAKER) (test knbh=4194) signature) POCT-GLUCOSE [id number] 08:12:00 Test Item Value Reference Range Comments POC-GLUCOSE METER (BEAKER) 137 mg/dL 70-110 TESTED AT [facility] [address] [facility] (test jmdn=2742) [facility] [address] COMPREHENSIVE METABOLIC [id number] 07:56:00 Test Item Value Reference Range Comments TOTAL PROTEIN (BEAKER) 7.2 gm/dL 6.0-8.3 (test dutk=174) ALBUMIN (BEAKER) (test 3.1 g/dL 3.5-5.0 ztmr=5412) ALKALINE PHOSPHATASE 95 U/L 40-150 (BEAKER) (test vtjt=165) BILIRUBIN TOTAL (BEAKER) 2.4 mg/dL 0.2-1.2 (test nfmr=812) SODIUM (BEAKER) (test 136 meq/L 136-145 owzb=505) POTASSIUM (BEAKER) (test 3.8 meq/L 3.5-5.1 hiov=775) CHLORIDE (BEAKER) (test 102 meq/L 98-107 ysra=242) CO2 (BEAKER) (test 22 meq/L 22-29 mnjb=865) BLOOD UREA NITROGEN 41 mg/dL 7-21 (BEAKER) (test avsq=876) CREATININE (BEAKER) (test 2.18 mg/dL 0.57-1.25 gpsw=686) GLUCOSE RANDOM (BEAKER) 89 mg/dL 70-105 (test miww=020) CALCIUM (BEAKER) (test 8.6 mg/dL 8.4-10.2 aomr=780) AST (SGOT) (BEAKER) (test 18 U/L 5-34 ilvv=552) ALT (SGPT) (BEAKER) (test 6 U/L 6-55 vmzk=280) EGFR (BEAKER) (test mL/min/1.73 sq m INSUFFICIENT CLINICAL DATA dxgd=6230) TO CALCULATE ESTIMATED GFR. Specimen slightly ictericRAD, CHEST, 1 VIEW, NON [id number] 07:56:00Reason for exam:->respiratory failureShould this be performed [...] MDReport Verified Date/Time: 11/03/2017 07:56:58 Reading Location: [facility] Radiology Reading Room Electronically signed by: CARLOS SNEED M.D. on 07:56 [id number] 07:55:00 Test Item Value Reference Range Comments PHOSPHORUS (BEAKER) (test nzyp=363) 2.7 mg/dL 2.3-4.7 [id number] 07:55:00 Test Item Value Reference Range Comments MAGNESIUM (BEAKER) (test jnrn=608) 2.0 mg/dL 1.6-2.6 HEPATIC FUNCTION [id number] 07:55:00 Test Item Value Reference Range Comments TOTAL PROTEIN (BEAKER) (test rltl=648) 7.2 gm/dL 6.0-8.3 ALBUMIN (BEAKER) (test lruh=9303) 3.1 g/dL 3.5-5.0 BILIRUBIN TOTAL (BEAKER) (test tqai=391) 2.4 mg/dL 0.2-1.2 BILIRUBIN DIRECT (BEAKER) (test jngv=530) 1.3 mg/dL 0.1-0.5 ALKALINE PHOSPHATASE (BEAKER) (test qdbn=958) 95 U/L 40-150 AST (SGOT) (BEAKER) (test bcvo=228) 18 U/L 5-34 ALT (SGPT) (BEAKER) (test ieaq=198) 6 U/L 6-55 Specimen slightly ictericBLOOD GAS, [id number] 07:38:00 Test Item Value Reference Range Comments PH ARTERIAL (BEAKER) (test ofsa=861) 7.46 7.35-7.45 PCO2 ARTERIAL (BEAKER) (test bdqq=203) 33 mmHg 35-45 PO2 ARTERIAL (BEAKER) (test owlp=909) 120 mmHg 80-90 O2 SATURATION ARTERIAL (BEAKER) (test gkzo=167) 98.6 % 96.0-97.0 HCO3 ARTERIAL (BEAKER) (test aaiy=604) 23 mmol/L 21-29 BASE EXCESS ARTERIAL (BEAKER) (test lcrz=008) -0.2 mmol/L -2.0-3.0 PATIENT TEMPERATURE (BEAKER) (test vujr=3936) 36.6 C FIO2 (BEAKER) (test bucb=8799) 40.0 % TROPONIN [id number] 07:34:00 Test Item Value Reference Range Comments TROPONIN I (BEAKER) (test zlrh=293) 0.05 ng/mL 0.00-0.03 Troponin I (TnI) levels [...] and persistent tachyarrhythmia.CBC W/PLT COUNT & AUTO [id number] 07:27:00 Test Item Value Reference Range Comments WHITE BLOOD CELL COUNT (BEAKER) (test dnlp=059) 8.1 K/ L 3.5-10.5 RED BLOOD CELL COUNT (BEAKER) (test lvpv=010) 3.34 M/ L 4.63-6.08 HEMOGLOBIN (BEAKER) (test nmfb=210) 9.0 GM/DL 13.7-17.5 HEMATOCRIT (BEAKER) (test obif=173) 28.7 % 40.1-51.0 MEAN CORPUSCULAR VOLUME (BEAKER) (test gtdc=672) 85.9 fL 79.0-92.2 MEAN CORPUSCULAR HEMOGLOBIN (BEAKER) (test 26.9 pg 25.7-32.2 wtia=530) MEAN CORPUSCULAR HEMOGLOBIN CONC (BEAKER) (test 31.4 GM/DL 32.3-36.5 fvuu=411) RED CELL DISTRIBUTION WIDTH (BEAKER) (test 18.1 % 11.6-14.4 uyky=021) PLATELET COUNT (BEAKER) (test eqwp=744) 58 K/CU MM 150-450 MEAN PLATELET VOLUME (BEAKER) (test ylhr=120) 10.4 fL 9.4-12.4 NUCLEATED RED BLOOD CELLS (BEAKER) (test 0 /100 WBC 0-0 juqo=175) NEUTROPHILS RELATIVE PERCENT (BEAKER) (test 82 % aijv=880) LYMPHOCYTES RELATIVE PERCENT (BEAKER) (test 4 % wtib=084) MONOCYTES RELATIVE PERCENT (BEAKER) (test 12 % unsg=877) EOSINOPHILS RELATIVE PERCENT (BEAKER) (test 2 % fkav=891) BASOPHILS RELATIVE PERCENT (BEAKER) (test 0 % mcmd=098) NEUTROPHILS ABSOLUTE COUNT (BEAKER) (test 6.62 K/ L 1.78-5.38 rzvz=909) LYMPHOCYTES ABSOLUTE COUNT (BEAKER) (test 0.31 K/ L 1.32-3.57 gwkj=323) MONOCYTES ABSOLUTE COUNT (BEAKER) (test qzvb=631) 0.95 K/ L 0.30-0.82 EOSINOPHILS ABSOLUTE COUNT (BEAKER) (test 0.13 K/ L 0.04-0.54 ihts=637) BASOPHILS ABSOLUTE COUNT (BEAKER) (test bjgc=602) 0.01 K/ L 0.01-0.08 IMMATURE GRANULOCYTES-RELATIVE PERCENT (BEAKER) 1 % 0-1 (test lygn=2089) [id number] 07:21:00 Test Item Value Reference Range Comments PARTIAL THROMBOPLASTIN TIME (BEAKER) (test 44.0 seconds 22.5-36.0 vaki=464) PROTHROMBIN [id number] 07:20:00 Test Item Value Reference Range Comments PROTIME (BEAKER) (test ymwj=253) 25.4 seconds 11.7-14.7 INR (BEAKER) (test hpde=618) 2.3 <=5.9 RECOMMENDED COUMADIN/WARFARIN INR THERAPY RANGESSTANDARD DOSE: 2.0 - 3.0 Includes: PROPHYLAXIS forvenous thrombosis, systemic embolization; TREATMENT for venous thrombosis and/or pulmonary embolus.HIGH RISK: Target INR is 2.5-3.5 for patients with mechanical heart valves.POCT-GLUCOSE [id number] 07:19:00 Test Item Value Reference Range Comments POC-GLUCOSE METER (BEAKER) 72 mg/dL 70-110 TESTED AT [facility] [address] [facility] (test okai=3177) [facility] [address] BODY FLUID CELL COUNT WITH [id number] 04:25:00 Test Item Value Reference Range Comments APPEARANCE FLUID (BEAKER) (test aggo=723) Hazy Clear COLOR FLUID (BEAKER) (test geib=495) Yellow Colorless, Straw RBC FLUID (BEAKER) (test yxzb=487) 3875 /cu mm <=1 ADJUSTED WBC FLUID (BEAKER) (test ztga=0528) 78 /cu mm <=5 LINING CELLS (BEAKER) (test iprx=6492) 7 /cu mm <=1 NEUTROPHILS FLUID (BEAKER) (test rnfd=8360) 9 % LYMPHS FLUID (BEAKER) (test pzmk=944) 6 % MONO/MACROPHAGE FLUID (BEAKER) (test gefh=055) 85 % EOSINOPHILS FLUID (BEAKER) (test cwph=065) 0 % BASO FLUID (BEAKER) (test gytf=702) 0 % CONTAINER BODY FLUID (BEAKER) (test oogr=8230) EDTA Tube CBC WITH PLATELET COUNT + MANUAL [id number] 04:09:00 Test Item Value Reference Range Comments WHITE BLOOD CELL COUNT 7.3 K/ L 3.5-10.5 (BEAKER) (test jvye=859) RED BLOOD CELL COUNT (BEAKER) 3.23 M/ L 4.63-6.08 (test elkk=023) HEMOGLOBIN (BEAKER) (test 8.7 GM/DL 13.7-17.5 vfjf=085) HEMATOCRIT (BEAKER) (test 27.8 % 40.1-51.0 mmqs=648) MEAN CORPUSCULAR VOLUME 86.1 fL 79.0-92.2 (BEAKER) (test himv=366) MEAN CORPUSCULAR HEMOGLOBIN 26.9 pg 25.7-32.2 (BEAKER) (test ynge=121) MEAN CORPUSCULAR HEMOGLOBIN 31.3 GM/DL 32.3-36.5 CONC (BEAKER) (test rzkh=573) RED CELL DISTRIBUTION WIDTH 17.9 % 11.6-14.4 (BEAKER) (test rkjc=966) PLATELET COUNT (BEAKER) (test 61 K/CU MM 150-450 This is a corrected result. vglv=072) Previous result was 28 K/CU MM on 11/03/2017 at 0335 CDT MEAN PLATELET VOLUME (BEAKER) 11.2 fL 9.4-12.4 Unable to report due to (test qfgx=742) abnormal Platelet population distribution.This is an appended report. These results have been appended to a previously final verified report. NUCLEATED RED BLOOD CELLS 0 /100 WBC 0-0 (BEAKER) (test yqol=525) POCT-GLUCOSE [id number] 04:06:00 Test Item Value Reference Range Comments POC-GLUCOSE METER (BEAKER) 109 mg/dL 70-110 TESTED AT [place] [id number] [facility] (test mkol=5320) [facility] [address] [id number] 03:14:00 Test Item Value Reference Range Comments FERRITIN (BEAKER) (test fnqx=441) 80 ng/mL 5-275 RAPID DRUG SCREEN, [id number] 03:09:00 Test Item Value Reference Range Comments BARBITURATE URINE (BEAKER) (test lfde=306) Negative Negative BENZODIAZEPINE SCREEN URINE (BEAKER) (test Positive Negative pssr=624) COCAINE (METAB.) SCREEN (BEAKER) (test nlqd=7705) Negative Negative METHADONE SCREEN (BEAKER) (test glaz=5240) Negative Negative OPIATE SCREEN URINE (BEAKER) (test fzve=906) Positive Negative CANNABINOID SCREEN URINE (BEAKER) (test vvhj=749) Negative Negative AMPH/METHAMPH SCREEN (BEAKER) (test exhx=3453) Negative Negative PHENCYCLIDINE SCREEN URINE (BEAKER) (test pife=083) Negative Negative OXYCODONE SCREEN URINE (BEAKER) (test ssdc=2047) Negative Negative DRUG CUTOFF CONC.Cocaine 300 ng/mL Cannabinoid 50 ng/mL Benzodiazepine 200 ng/mLBarbiturate 200 ng/ mLPhencyclidine 25 ng/mLOpiate 300 ng/mLMethadone 300 ng/mLAmphetamine/ 1000 ng/mL MethamphetamineOxycodone 300 ng/mLThis assay provides an unconfirmed qualitative test result for the clinical management of patients in emergency situations. Chain of custody not maintained. Some giwb-scp-hikpwfc medications, as well as adulterants, may cause inaccurate results. Clinical correlation should be applied. A more comprehensive drug screen or confirmation of a detected drug may be performed upon request.POCT-GLUCOSE [id number] 03:07:00 Test Item Value Reference Range Comments POC-GLUCOSE METER (BEAKER) 142 mg/dL 70-110 TESTED AT [place] [id number] [facility] (test yvpz=9630) [place] [address] IRON, TIBC, % SAT. (WITHOUT FERRITIN)2017-11-03 02:53:00 Test Item Value Reference Range Comments IRON (BEAKER) (test vhwq=159) 101 ug/dL 40-160 TOTAL IRON BINDING CAPACITY (BEAKER) (test 303 ug/dL 250-450 tgqn=240) IRON % SATURATION (2) (BEAKER) (test zcsf=9143) 33 % 20-55 BLOOD GAS, [id number] 02:49:00 Test Item Value Reference Range Comments PH ARTERIAL (BEAKER) (test rqrj=142) 7.51 7.35-7.45 PCO2 ARTERIAL (BEAKER) (test fsaj=414) 34 mmHg 35-45 PO2 ARTERIAL (BEAKER) (test vzwe=458) 341 mmHg 80-90 O2 SATURATION ARTERIAL (BEAKER) (test razd=855) 99.8 % 96.0-97.0 HCO3 ARTERIAL (BEAKER) (test kumw=897) 27 mmol/L 21-29 BASE EXCESS ARTERIAL (BEAKER) (test vudd=271) 3.4 mmol/L -2.0-3.0 PATIENT TEMPERATURE (BEAKER) (test zkjn=5369) 36.4 C FIO2 (BEAKER) (test mefx=5635) 60.0 % TROPONIN [id number] 02:29:00 Test Item Value Reference Range Comments TROPONIN I (BEAKER) (test kylb=485) 0.04 ng/mL 0.00-0.03 Troponin I (TnI) levels [...] acidosis, acute neurological disease, and persistent tachyarrhythmia.POCT-GLUCOSE [id number] 01:36:00 Test Item Value Reference Range Comments POC-GLUCOSE METER (BEAKER) 85 mg/dL 70-110 TESTED AT [facility] [address] [place] [address] (test oytu=4965) [facility] [address] CT BRAIN WITHOUT IV CONTRAST - [id number] 01:03:00Reason for exam:-> AMSFINAL REPORT CT BRAIN [...] Robert MDReport Verified Date/Time: 01:03:15 Reading Location: [facility] B1 C013Y CT Body Reading Room Electronicallysigned by: TABITHA OLIVARES on 11/03/2017 01:03 AMEOSINOPHIL SMEAR, [id number] 00:38:00 Test Item Value Reference Range Comments EOSINOPHIL SMEAR, URINE (BEAKER) (test No EOS seen No EOS seen wmuc=1042) ALBUMIN, BODY [id number] 00:16:00 Test Item Value Reference Range Comments ALBUMIN FLUID (BEAKER) (test zyuj=447) 1.7 gm/dL Reference Range: No Normals Assay performance has not been validated for this type of specimen.PROTEIN, RANDOM [id number] 00:14:00 Test Item Value Reference Range Comments PROTEIN, URINE (BEAKER) (test pntd=2898) 62 mg/dL 0-14 BODY FLUID CELL COUNT WITH [id number] 00:13:00 Test Item Value Reference Range Comments APPEARANCE FLUID (BEAKER) (test hmuj=601) Hazy Clear COLOR FLUID (BEAKER) (test daif=123) Yellow Colorless, Straw RBC FLUID (BEAKER) (test jslu=658) 1100 /cu mm <=1 ADJUSTED WBC FLUID (BEAKER) (test dyqu=2769) 140 /cu mm <=5 LINING CELLS (BEAKER) (test igtr=4674) 0 /cu mm <=1 NEUTROPHILS FLUID (BEAKER) (test bgxu=0512) 2 % LYMPHS FLUID (BEAKER) (test ntdu=585) 22 % MONO/MACROPHAGE FLUID (BEAKER) (test ftjx=952) 76 % EOSINOPHILS FLUID (BEAKER) (test qddm=645) 0 % BASO FLUID (BEAKER) (test ycah=946) 0 % CONTAINER BODY FLUID (BEAKER) (test zkbu=3348) EDTA Tube AMYLASE, BODY [id number] 00:08:00 Test Item Value Reference Range Comments AMYLASE FLUID (BEAKER) (test jdti=039) 30 U/L Absence of reference range indicates that normals have not been defined.Assay performance has not been validated for this type of specimen.LACTATE DEHYDROGENASE (LDH), BODY [id number] 00:08:00 Test Item Value Reference Range Comments LACTATE DEHYDROGENASE FLUID (BEAKER) (test xqyf=313) < U/L Absence of reference range indicates that normals have not been defined.Assay performance has not been validated for this type of specimen.PROTEIN, BODY [id number] 00:08:00 Test Item Value Reference Range Comments PROTEIN FLUID (BEAKER) (test kgqv=434) 4.1 g/dL Absence of reference range indicates that normals have not been defined.Assay performance has not been validated for this type of specimen.TRIGLYCERIDES, BODY [id number] 00:08:00 Test Item Value Reference Range Comments TRIGLYCERIDES FLUID (BEAKER) (test jcqx=816) 37 mg/dL Reference Range: No Normals Assay performance has not been validated for this type of specimen.GLUCOSE, BODY [id number] 00:08:00 Test Item Value Reference Range Comments GLUCOSE, BODY FLUID (BEAKER) (test qild=4812) 95 mg/dL Absence of reference range indicates that normals have not been defined.Assay performance has not been validated for this type of specimen.GRAM [id number] 00:03:00 Test Item Value Reference Range Comments GRAM STAIN RESULT (BEAKER) (test <1+ WBCs fetf=8631) GRAM STAIN RESULT (BEAKER) (test No organisms seen zqaq=06450) OSMOLALITY, [id number] 23:51:00 Test Item Value Reference Range Comments OSMOLALITY URINE (BEAKER) (test ramg=922) 316 mOsm/kg 40-1400 HEPATITIS B SURFACE [id number] 22:53:00 Test Item Value Reference Range Comments HEPATITIS B SURFACE ANTIGEN (2) (BEAKER) (test Nonreactive Nonreactive wjis=2926) For chronic HD patients, draw HBsAg with each admission then every 30 days.HEPATITIS B SURFACE [id number] 22:53:00 Test Item Value Reference Range Comments HEPATITIS B SURFACE ANTIBODY (BEAKER) (test < mIU/mL <8.0 agak=920) HEPATITIS B CORE ANTIBODY, [id number] 22:44:00 Test Item Value Reference Range Comments HEPATITIS B CORE TOTAL ANTIBODY (BEAKER) (test Nonreactive Nonreactive xshp=420) [id number] 22:27:00 Test Item Value Reference Range Comments FIBRINOGEN LEVEL (BEAKER) (test eeju=301) 364 mg/dl 225-434 [id number] 22:19:00 Test Item Value Reference Range Comments MAGNESIUM (BEAKER) (test cdzg=409) 2.5 mg/dL 1.6-2.6 [id number] 22:19:00 Test Item Value Reference Range Comments PHOSPHORUS (BEAKER) (test togx=252) 6.4 mg/dL 2.3-4.7 RAD, CHEST, 1 VIEW, NON [id number] 21:27:00Reason for exam:-> intubationFINAL REPORT Comparison: 10/01/2016 [...] Verified Date/Time: 11/02/2017 21:27:01 Reading Location : [address] Consult Reading Room CREATININE, RANDOM [id number] 21:10:00 Test Item Value Reference Range Comments CREATININE URINE (BEAKER) (test ekfy=109) 44.7 mg/dL Reference Range: No NormalsSODIUM, RANDOM [id number] 21:10:00 Test Item Value Reference Range Comments SODIUM URINE (BEAKER) (test zcum=578) 74 meq/L Reference Range: No NormalsUREA NITROGEN, RANDOM [id number] 21:10:00 Test Item Value Reference Range Comments UREA NITROGEN URINE (BEAKER) (test lzrp=806) 229 mg/dL Reference Range: No [id number] 21:07:00 Test Item Value Reference Range Comments THYROID STIMULATING HORMONE (BEAKER) (test 5.14 uIU/mL 0.35-4.94 puje=167) DIGOXIN [id number] 21:07:00 Test Item Value Reference Range Comments DIGOXIN LEVEL (BEAKER) (test aphu=025) < ng/mL 0.8-2.0 URINALYSIS W/ [id number] 20:44:00 Test Item Value Reference Range Comments COLOR (BEAKER) (test rvti=316) [place] CLARITY (BEAKER) (test vezm=121) Hazy SPECIFIC GRAVITY UA (BEAKER) (test qiow=056) 1.009 1.001-1.035 PH UA (BEAKER) (test ilcv=351) 5.0 5.0-8.0 PROTEIN UA (BEAKER) (test pjpm=318) 30 mg/dL Negative GLUCOSE UA (BEAKER) (test ured=124) Negative Negative KETONES UA (BEAKER) (test skmd=953) Negative Negative BILIRUBIN UA (BEAKER) (test pfmb=672) Negative Negative BLOOD UA (BEAKER) (test hsww=865) Large Negative NITRITE UA (BEAKER) (test xayu=299) Negative Negative LEUKOCYTE ESTERASE UA (BEAKER) (test xjor=882) Moderate Negative UROBILINOGEN UA (BEAKER) (test gpkp=252) 0.2 mg/dL 0.2-1.0 RBC UA (BEAKER) (test azsd=768) 705 /HPF WBC UA (BEAKER) (test cwcs=908) 14 /HPF MUCUS (BEAKER) (test qevh=0117) Rare SQUAMOUS EPITHELIAL (BEAKER) (test ykoe=807) 2 /HPF HYALINE CASTS (BEAKER) (test zpav=803) 15 /LPF CASTS (BEAKER) (test cyan=3467) 10 /LPF SOURCE(BEAKER) (test zuip=7223) Urine, [place] BLOOD GAS, [id number] 20:31:00 Test Item Value Reference Range Comments PH ARTERIAL (BEAKER) (test inkd=162) 7.29 7.35-7.45 PCO2 ARTERIAL (BEAKER) (test rmrd=995) 59 mmHg 35-45 PO2 ARTERIAL (BEAKER) (test epwi=647) 168 mmHg 80-90 O2 SATURATION ARTERIAL (BEAKER) (test eswk=250) 98.9 % 96.0-97.0 HCO3 ARTERIAL (BEAKER) (test gjai=296) 28 mmol/L 21-29 BASE EXCESS ARTERIAL (BEAKER) (test hfsh=311) 0.1 mmol/L -2.0-3.0 PATIENT TEMPERATURE (BEAKER) (test uonx=3226) 36.1 C FIO2 (BEAKER) (test idnj=8598) 60.0 % B-TYPE NATRIURETIC FACTOR (BNP)2017-11-02 20:16:00 Test Item Value Reference Range Comments B-TYPE NATRIURETIC PEPTIDE (BEAKER) (test 521 pg/mL 0-100 bsvk=494) COMPREHENSIVE METABOLIC [id number] 20:16:00 Test Item Value Reference Range Comments TOTAL PROTEIN (BEAKER) 8.1 gm/dL 6.0-8.3 (test fqye=491) ALBUMIN (BEAKER) (test 3.1 g/dL 3.5-5.0 wwsp=9078) ALKALINE PHOSPHATASE 120 U/L 40-150 (BEAKER) (test qhzs=881) BILIRUBIN TOTAL (BEAKER) 1.5 mg/dL 0.2-1.2 (test sdwu=002) SODIUM (BEAKER) (test 130 meq/L 136-145 noaw=388) POTASSIUM (BEAKER) (test 5.2 meq/L 3.5-5.1 xokx=313) CHLORIDE (BEAKER) (test 92 meq/L 98-107 enbv=347) CO2 (BEAKER) (test 27 meq/L 22-29 jahp=654) BLOOD UREA NITROGEN 81 mg/dL 7-21 (BEAKER) (test oxhm=385) CREATININE (BEAKER) (test 4.00 mg/dL 0.57-1.25 ezzq=757) GLUCOSE RANDOM (BEAKER) 82 mg/dL 70-105 (test xqmc=361) CALCIUM (BEAKER) (test 8.8 mg/dL 8.4-10.2 zvmb=920) AST (SGOT) (BEAKER) (test 20 U/L 5-34 kpep=008) ALT (SGPT) (BEAKER) (test 9 U/L 6-55 hpvw=359) EGFR (BEAKER) (test mL/min/1.73 sq m INSUFFICIENT CLINICAL DATA ehsc=0561) TO CALCULATE ESTIMATED GFR. POCT-GLUCOSE [id number] 20:13:00 Test Item Value Reference Range Comments POC-GLUCOSE METER (BEAKER) 86 mg/dL 70-110 TESTED AT [facility] [facility] [address] [facility] (test oofi=9320) [facility] [address] CREATINE KINASE (CK), TOTAL AND [id number] 20:13:00 Test Item Value Reference Range Comments CREATINE KINASE TOTAL (BEAKER) (test qkhl=182) 41 U/L 29-200 CREATINE KINASE-MB (BEAKER) (test qvdy=059) 5.8 ng/mL 0.0-6.6 CREATINE KINASE-MB INDEX (BEAKER) (test nttm=507) 14.1 % CK-MB Reference Range:<6.7 Normal6.7-10.0 Borderline>10.0 AbnormalTROPONIN [id number] 20:13:00 Test Item Value Reference Range Comments TROPONIN I (BEAKER) (test ckui=424) 0.03 ng/mL 0.00-0.03 Troponin I (TnI) levels [...] failure, acidosis, acute neurological disease, and persistent tachyarrhythmia.[id number] 20:10:00 Test Item Value Reference Range Comments PARTIAL THROMBOPLASTIN TIME (BEAKER) (test 49.2 seconds 22.5-36.0 yduh=376) PROTHROMBIN [id number] 20:09:00 Test Item Value Reference Range Comments PROTIME (BEAKER) (test bote=478) 28.4 seconds 11.7-14.7 INR (BEAKER) (test cwza=098) 2.7 <=5.9 RECOMMENDED COUMADIN/WARFARIN INR THERAPY RANGESSTANDARD DOSE: 2.0 - 3.0 Includes: PROPHYLAXIS forvenous thrombosis, systemic embolization; TREATMENT for venous thrombosis and/or pulmonary embolus.HIGH RISK: Target INR is 2.5-3.5 for patients with mechanical heart valves.CBC W/PLT COUNT & AUTO [id number] 20:08:00 Test Item Value Reference Range Comments WHITE BLOOD CELL COUNT (BEAKER) (test jjlu=325) 4.6 K/ L 3.5-10.5 RED BLOOD CELL COUNT (BEAKER) (test wcqr=632) 3.29 M/ L 4.63-6.08 HEMOGLOBIN (BEAKER) (test qsxx=425) 9.1 GM/DL 13.7-17.5 HEMATOCRIT (BEAKER) (test fivg=601) 30.0 % 40.1-51.0 MEAN CORPUSCULAR VOLUME (BEAKER) (test qast=464) 91.2 fL 79.0-92.2 MEAN CORPUSCULAR HEMOGLOBIN (BEAKER) (test 27.7 pg 25.7-32.2 ffum=387) MEAN CORPUSCULAR HEMOGLOBIN CONC (BEAKER) (test 30.3 GM/DL 32.3-36.5 atjw=208) RED CELL DISTRIBUTION WIDTH (BEAKER) (test 18.3 % 11.6-14.4 unua=693) PLATELET COUNT (BEAKER) (test mxqi=666) 45 K/CU MM 150-450 MEAN PLATELET VOLUME (BEAKER) (test wogb=650) 10.5 fL 9.4-12.4 NUCLEATED RED BLOOD CELLS (BEAKER) (test 0 /100 WBC 0-0 hsvr=095) NEUTROPHILS RELATIVE PERCENT (BEAKER) (test 83 % sity=816) LYMPHOCYTES RELATIVE PERCENT (BEAKER) (test 6 % rwfu=443) MONOCYTES RELATIVE PERCENT (BEAKER) (test 10 % fvxv=150) EOSINOPHILS RELATIVE PERCENT (BEAKER) (test 0 % sntl=621) BASOPHILS RELATIVE PERCENT (BEAKER) (test 0 % igsf=282) NEUTROPHILS ABSOLUTE COUNT (BEAKER) (test 3.82 K/ L 1.78-5.38 qvyw=791) LYMPHOCYTES ABSOLUTE COUNT (BEAKER) (test 0.26 K/ L 1.32-3.57 pvjt=188) MONOCYTES ABSOLUTE COUNT (BEAKER) (test jzsj=090) 0.45 K/ L 0.30-0.82 EOSINOPHILS ABSOLUTE COUNT (BEAKER) (test 0.02 K/ L 0.04-0.54 lous=313) BASOPHILS ABSOLUTE COUNT (BEAKER) (test ptfu=500) 0.00 K/ L 0.01-0.08 IMMATURE GRANULOCYTES-RELATIVE PERCENT (BEAKER) 1 % 0-1 (test wpal=1023) LACTIC ACID, ARTERIAL, WHOLE [id number] 20:02:00 Test Item Value Reference Range Comments LACTATE BLOOD ARTERIAL (2) (BEAKER) (test 1.3 mmol/L 0.5-2.2 oxvp=4846) Effective 10/24/2015: Units/Reference Range ChangeNew: 0.5-2.2 mmol/L Previous: 5 -20 mg/[id number] 20:00:00 Test Item Value Reference Range Comments AMMONIA (BEAKER) (test tbqf=035) 60 mol/L 18-72 POCT-GLUCOSE [id number] 12:36:00 Test Item Value Reference Range Comments POC-GLUCOSE METER (BEAKER) 121 mg/dL 70-110 TESTED AT [address] (test cgua=9901) [facility] [address] POCT-GLUCOSE [id number] 12:00:00 Test Item Value Reference Range Comments POC-GLUCOSE METER (BEAKER) 118 mg/dL 70-110 TESTED AT [address] (test lnkl=6911) [facility] [address] CBC W/PLT COUNT & AUTO [id number] 11:55:00 Test Item Value Reference Range Comments WHITE BLOOD CELL COUNT (BEAKER) (test bcoq=846) 8.9 K/ L 4.0-10.0 RED BLOOD CELL COUNT (BEAKER) (test bonq=024) 2.79 M/ L 4.20-5.80 HEMOGLOBIN (BEAKER) (test nmbi=129) 9.2 GM/DL 13.0-16.8 HEMATOCRIT (BEAKER) (test ytvp=797) 27.1 % 40.0-50.0 MEAN CORPUSCULAR VOLUME (BEAKER) (test ecaq=288) 97.1 fL 82.0-98.0 MEAN CORPUSCULAR HEMOGLOBIN (BEAKER) (test 33.1 pg 27.0-33.0 rkgj=082) MEAN CORPUSCULAR HEMOGLOBIN CONC (BEAKER) (test 34.1 GM/DL 32.0-36.0 esmu=695) RED CELL DISTRIBUTION WIDTH (BEAKER) (test 15.5 % 10.3-14.2 yxwk=656) PLATELET COUNT (BEAKER) (test jjmg=040) 29 K/CU MM 150-430 MEAN PLATELET VOLUME (BEAKER) (test ewqp=753) 9.4 fL 6.5-10.5 NUCLEATED RED BLOOD CELLS (BEAKER) (test 0 /100 WBC 0-0 zikg=109) NEUTROPHILS RELATIVE PERCENT (BEAKER) (test 87 % lmha=812) LYMPHOCYTES RELATIVE PERCENT (BEAKER) (test 5 % tzim=661) MONOCYTES RELATIVE PERCENT (BEAKER) (test 8 % aetp=325) EOSINOPHILS RELATIVE PERCENT (BEAKER) (test 1 % jpgh=454) BASOPHILS RELATIVE PERCENT (BEAKER) (test 0 % mhtx=706) NEUTROPHILS ABSOLUTE COUNT (BEAKER) (test 7.73 K/ L 1.80-8.00 back=435) LYMPHOCYTES ABSOLUTE COUNT (BEAKER) (test 0.42 K/ L 1.48-4.50 ydid=941) MONOCYTES ABSOLUTE COUNT (BEAKER) (test gkmv=759) 0.73 K/ L 0.00-1.30 EOSINOPHILS ABSOLUTE COUNT (BEAKER) (test 0.05 K/ L 0.00-0.50 utqm=270) BASOPHILS ABSOLUTE COUNT (BEAKER) (test hoxb=451) 0.00 K/ L 0.00-0.20 0.00POCT-GLUCOSE [id number] 07:54:00 Test Item Value Reference Range Comments POC-GLUCOSE METER (BEAKER) 94 mg/dL 70-110 TESTED AT [address] (test iczl=5464) [facility] [address] POCT-GLUCOSE [id number] 22:14:00 Test Item Value Reference Range Comments POC-GLUCOSE METER (BEAKER) 221 mg/dL 70-110 TESTED AT [address] (test jqph=1891) [facility] [address] POCT-GLUCOSE [id number] 18:29:00 Test Item Value Reference Range Comments POC-GLUCOSE METER (BEAKER) 144 mg/dL 70-110 TESTED AT [address] (test bbds=4095) [facility] [address] POCT-GLUCOSE [id number] 12:57:00 Test Item Value Reference Range Comments POC-GLUCOSE METER (BEAKER) 195 mg/dL 70-110 TESTED AT [place] [id number] [facility] (test ajcw=9870) [facility] [address] CBC W/PLT COUNT & AUTO [id number] 08:36:00 Test Item Value Reference Range Comments WHITE BLOOD CELL COUNT (BEAKER) (test opbo=757) 11.1 K/ L 4.0-10.0 RED BLOOD CELL COUNT (BEAKER) (test yyek=043) 2.68 M/ L 4.20-5.80 HEMOGLOBIN (BEAKER) (test rfwl=946) 9.0 GM/DL 13.0-16.8 HEMATOCRIT (BEAKER) (test uvbk=791) 26.5 % 40.0-50.0 MEAN CORPUSCULAR VOLUME (BEAKER) (test rvoa=696) 98.7 fL 82.0-98.0 MEAN CORPUSCULAR HEMOGLOBIN (BEAKER) (test 33.5 pg 27.0-33.0 qtwj=280) MEAN CORPUSCULAR HEMOGLOBIN CONC (BEAKER) (test 34.0 GM/DL 32.0-36.0 trby=070) RED CELL DISTRIBUTION WIDTH (BEAKER) (test 15.3 % 10.3-14.2 rkmo=184) PLATELET COUNT (BEAKER) (test tcjw=769) 30 K/CU MM 150-430 MEAN PLATELET VOLUME (BEAKER) (test dapa=404) 8.7 fL 6.5-10.5 NUCLEATED RED BLOOD CELLS (BEAKER) (test 0 /100 WBC 0-0 xfam=375) NEUTROPHILS RELATIVE PERCENT (BEAKER) (test 85 % glwo=368) LYMPHOCYTES RELATIVE PERCENT (BEAKER) (test 5 % gvny=460) MONOCYTES RELATIVE PERCENT (BEAKER) (test 9 % fzzf=847) EOSINOPHILS RELATIVE PERCENT (BEAKER) (test 0 % xxvh=449) BASOPHILS RELATIVE PERCENT (BEAKER) (test 0 % yodg=319) NEUTROPHILS ABSOLUTE COUNT (BEAKER) (test 9.48 K/ L 1.80-8.00 fpkp=365) LYMPHOCYTES ABSOLUTE COUNT (BEAKER) (test 0.56 K/ L 1.48-4.50 oztg=318) MONOCYTES ABSOLUTE COUNT (BEAKER) (test zyno=962) 1.05 K/ L 0.00-1.30 EOSINOPHILS ABSOLUTE COUNT (BEAKER) (test 0.05 K/ L 0.00-0.50 dsoi=006) BASOPHILS ABSOLUTE COUNT (BEAKER) (test itbr=528) 0.00 K/ L 0.00-0.20 0.00POCT-GLUCOSE [id number] 08:26:00 Test Item Value Reference Range Comments POC-GLUCOSE METER (BEAKER) 107 mg/dL 70-110 TESTED AT [facility] [address] [facility] (test dcmi=9579) [place] [address] PROTHROMBIN [id number] 05:20:00 Test Item Value Reference Range Comments PROTIME (BEAKER) (test xiwb=458) 17.0 seconds 11.7-14.7 INR (BEAKER) (test dges=617) 1.4 <=5.9 RECOMMENDED COUMADIN/WARFARIN INR THERAPY RANGESSTANDARD DOSE: 2.0 - 3.0 Includes: PROPHYLAXIS forvenous thrombosis, systemic embolization; TREATMENT for venous thrombosis and/or pulmonary embolus.HIGH RISK: Target INR is 2.5-3.5 for patients with mechanical heart valves.[id number] 05:20:00 Test Item Value Reference Range Comments PARTIAL THROMBOPLASTIN TIME (BEAKER) (test 27.8 seconds 22.5-36.0 iqil=535) [id number] 05:20:00 Test Item Value Reference Range Comments FIBRINOGEN LEVEL (BEAKER) (test dncf=281) 183 mg/dl 225-434 B-TYPE NATRIURETIC FACTOR (BNP)[id number] 05:11:00 Test Item Value Reference Range Comments B-TYPE NATRIURETIC PEPTIDE (BEAKER) (test 256 pg/mL 0-100 zxml=198) BASIC METABOLIC [id number] 05:09:00 Test Item Value Reference Range Comments SODIUM (BEAKER) (test 133 meq/L 136-145 fuun=829) POTASSIUM (BEAKER) (test 3.5 meq/L 3.5-5.1 kmks=314) CHLORIDE (BEAKER) (test 93 meq/L 98-107 flpj=788) CO2 (BEAKER) (test 30 meq/L 22-29 mrpz=396) BLOOD UREA NITROGEN 40 mg/dL 7-21 (BEAKER) (test xoxg=602) CREATININE (BEAKER) (test 0.85 mg/dL 0.57-1.25 sysj=837) GLUCOSE RANDOM (BEAKER) 143 mg/dL 70-105 (test luxd=198) CALCIUM (BEAKER) (test 8.5 mg/dL 8.4-10.2 mlmp=943) EGFR (BEAKER) (test mL/min/1.73 sq m INSUFFICIENT CLINICAL DATA obbh=4255) TO CALCULATE ESTIMATED GFR. POCT-GLUCOSE [id number] 21:25:00 Test Item Value Reference Range Comments POC-GLUCOSE METER (BEAKER) 139 mg/dL 70-110 TESTED AT [address] (test dckt=5137) [place] [id number] POCT-GLUCOSE [id number] 17:50:00 Test Item Value Reference Range Comments POC-GLUCOSE METER (BEAKER) 173 mg/dL 70-110 TESTED AT [address] (test oqkl=6178) [place] [id number] POCT-GLUCOSE [id number] 08:56:00 Test Item Value Reference Range Comments POC-GLUCOSE METER (BEAKER) 155 mg/dL 70-110 TESTED AT [address] (test ckwr=3032) [facility] [address] CBC W/PLT COUNT & AUTO [id number] 04:54:00 Test Item Value Reference Range Comments WHITE BLOOD CELL COUNT (BEAKER) (test lmzd=295) 8.7 K/ L 4.0-10.0 RED BLOOD CELL COUNT (BEAKER) (test dvoh=792) 2.72 M/ L 4.20-5.80 HEMOGLOBIN (BEAKER) (test gxaz=371) 9.4 GM/DL 13.0-16.8 HEMATOCRIT (BEAKER) (test dqia=541) 27.0 % 40.0-50.0 MEAN CORPUSCULAR VOLUME (BEAKER) (test hxfh=914) 99.4 fL 82.0-98.0 MEAN CORPUSCULAR HEMOGLOBIN (BEAKER) (test 34.6 pg 27.0-33.0 szdb=944) MEAN CORPUSCULAR HEMOGLOBIN CONC (BEAKER) (test 34.8 GM/DL 32.0-36.0 ixoh=711) RED CELL DISTRIBUTION WIDTH (BEAKER) (test 15.3 % 10.3-14.2 feuf=842) PLATELET COUNT (BEAKER) (test lgji=065) 24 K/CU MM 150-430 MEAN PLATELET VOLUME (BEAKER) (test jtcj=932) 9.9 fL 6.5-10.5 NUCLEATED RED BLOOD CELLS (BEAKER) (test 0 /100 WBC 0-0 gukz=946) NEUTROPHILS RELATIVE PERCENT (BEAKER) (test 89 % xiay=490) LYMPHOCYTES RELATIVE PERCENT (BEAKER) (test 4 % clfq=388) MONOCYTES RELATIVE PERCENT (BEAKER) (test 8 % aezo=683) EOSINOPHILS RELATIVE PERCENT (BEAKER) (test 0 % majd=915) BASOPHILS RELATIVE PERCENT (BEAKER) (test 0 % amlf=432) NEUTROPHILS ABSOLUTE COUNT (BEAKER) (test 7.72 K/ L 1.80-8.00 pgev=645) LYMPHOCYTES ABSOLUTE COUNT (BEAKER) (test 0.31 K/ L 1.48-4.50 hfya=809) MONOCYTES ABSOLUTE COUNT (BEAKER) (test lhlj=758) 0.68 K/ L 0.00-1.30 EOSINOPHILS ABSOLUTE COUNT (BEAKER) (test 0.02 K/ L 0.00-0.50 hmjt=738) BASOPHILS ABSOLUTE COUNT (BEAKER) (test hdfn=135) 0.00 K/ L 0.00-0.20 0.00POCT-GLUCOSE [id number] 22:11:00 Test Item Value Reference Range Comments POC-GLUCOSE METER (BEAKER) 295 mg/dL 70-110 TESTED AT [address] (test rcut=0702) [facility] [address] POCT-GLUCOSE [id number] 16:50:00 Test Item Value Reference Range Comments POC-GLUCOSE METER (BEAKER) 149 mg/dL 70-110 TESTED AT [address] (test swvf=9125) [facility] [address] [id number] 15:04:00 Test Item Value Reference Range Comments POTASSIUM (BEAKER) (test asyj=151) 4.0 meq/L 3.5-5.1 [id number] 15:04:00 Test Item Value Reference Range Comments MAGNESIUM (BEAKER) (test trqf=755) 2.7 mg/dL 1.6-2.6 POCT-GLUCOSE [id number] 12:34:00 Test Item Value Reference Range Comments POC-GLUCOSE METER (BEAKER) 128 mg/dL 70-110 TESTED AT [place] [id number] [facility] (test kyih=5408) [facility] [address] POCT-GLUCOSE [id number] 11:39:00 Test Item Value Reference Range Comments POC-GLUCOSE METER (BEAKER) 120 mg/dL 70-110 TESTED AT [address] (test sfth=6691) [facility] [address] POCT-GLUCOSE [id number] 07:51:00 Test Item Value Reference Range Comments POC-GLUCOSE METER (BEAKER) 87 mg/dL 70-110 TESTED AT [address] (test ijhv=7774) [facility] [address] BLOOD GAS, [id number] 05:59:00 Test Item Value Reference Range Comments PH ARTERIAL (BEAKER) (test cwws=083) 7.41 7.35-7.45 PCO2 ARTERIAL (BEAKER) (test ksfq=985) 60 mmHg 35-45 PO2 ARTERIAL (BEAKER) (test ydea=492) 179 mmHg 80-90 O2 SATURATION ARTERIAL (BEAKER) (test rxhn=604) 99.2 % 96.0-97.0 HCO3 ARTERIAL (BEAKER) (test uotw=104) 38 mmol/L 21-29 BASE EXCESS ARTERIAL (BEAKER) (test lrel=652) 11.6 mmol/L -2.0-3.0 PATIENT TEMPERATURE (BEAKER) (test oamo=1915) 36.5 C FIO2 (BEAKER) (test idtm=1899) 50.0 % CBC W/PLT COUNT & AUTO [id number] 05:40:00 Test Item Value Reference Range Comments WHITE BLOOD CELL COUNT (BEAKER) (test whxj=533) 9.1 K/ L 4.0-10.0 RED BLOOD CELL COUNT (BEAKER) (test kqkx=154) 2.62 M/ L 4.20-5.80 HEMOGLOBIN (BEAKER) (test jjdh=489) 8.7 GM/DL 13.0-16.8 HEMATOCRIT (BEAKER) (test lkhb=919) 25.9 % 40.0-50.0 MEAN CORPUSCULAR VOLUME (BEAKER) (test wjzi=677) 98.8 fL 82.0-98.0 MEAN CORPUSCULAR HEMOGLOBIN (BEAKER) (test 33.0 pg 27.0-33.0 lrmx=676) MEAN CORPUSCULAR HEMOGLOBIN CONC (BEAKER) (test 33.4 GM/DL 32.0-36.0 fubx=064) RED CELL DISTRIBUTION WIDTH (BEAKER) (test 15.9 % 10.3-14.2 udtz=772) PLATELET COUNT (BEAKER) (test jzcz=088) 30 K/CU MM 150-430 MEAN PLATELET VOLUME (BEAKER) (test eayz=745) 9.4 fL 6.5-10.5 NUCLEATED RED BLOOD CELLS (BEAKER) (test 0 /100 WBC 0-0 kgly=698) NEUTROPHILS RELATIVE PERCENT (BEAKER) (test 87 % cjys=098) LYMPHOCYTES RELATIVE PERCENT (BEAKER) (test 4 % cryb=925) MONOCYTES RELATIVE PERCENT (BEAKER) (test 9 % xzva=797) EOSINOPHILS RELATIVE PERCENT (BEAKER) (test 0 % lotj=301) BASOPHILS RELATIVE PERCENT (BEAKER) (test 0 % onsj=476) NEUTROPHILS ABSOLUTE COUNT (BEAKER) (test 7.93 K/ L 1.80-8.00 mbdq=846) LYMPHOCYTES ABSOLUTE COUNT (BEAKER) (test 0.32 K/ L 1.48-4.50 csnz=154) MONOCYTES ABSOLUTE COUNT (BEAKER) (test vdrb=580) 0.81 K/ L 0.00-1.30 EOSINOPHILS ABSOLUTE COUNT (BEAKER) (test 0.01 K/ L 0.00-0.50 whsy=661) BASOPHILS ABSOLUTE COUNT (BEAKER) (test fayg=130) 0.01 K/ L 0.00-0.20 0.00BASI METABOLIC [id number] 04:53:00 Test Item Value Reference Range Comments SODIUM (BEAKER) (test 135 meq/L 136-145 qpke=396) POTASSIUM (BEAKER) (test 4.2 meq/L 3.5-5.1 aorq=745) CHLORIDE (BEAKER) (test 92 meq/L 98-107 wvui=144) CO2 (BEAKER) (test 36 meq/L 22-29 pnva=174) BLOOD UREA NITROGEN 48 mg/dL 7-21 (BEAKER) (test rrez=546) CREATININE (BEAKER) (test 0.89 mg/dL 0.57-1.25 xuyv=487) GLUCOSE RANDOM (BEAKER) 105 mg/dL 70-105 (test mesd=968) CALCIUM (BEAKER) (test 8.4 mg/dL 8.4-10.2 show=512) EGFR (BEAKER) (test mL/min/1.73 sq m INSUFFICIENT CLINICAL DATA rfsl=5146) TO CALCULATE ESTIMATED GFR. Check Serum Magnesium level 2 hours after IV magnesium replacement.[id number] 04:43:00 Test Item Value Reference Range Comments POTASSIUM (BEAKER) (test efba=466) 4.2 meq/L 3.5-5.1 Check Serum Magnesium level 2 hours after IV magnesium replacement.[id number] -[id number] 04:43:00 Test Item Value Reference Range Comments MAGNESIUM (BEAKER) (test odnu=409) 2.5 mg/dL 1.6-2.6 Check Serum Magnesium level 2 hours after IV magnesium replacement.HEPATIC FUNCTION [id number] 04:43:00 Test Item Value Reference Range Comments TOTAL PROTEIN (BEAKER) (test uuht=329) 6.4 gm/dL 6.0-8.3 ALBUMIN (BEAKER) (test ylxw=2893) 3.4 g/dL 3.5-5.0 BILIRUBIN TOTAL (BEAKER) (test nysy=706) 1.6 mg/dL 0.2-1.2 BILIRUBIN DIRECT (BEAKER) (test psfp=872) 0.9 mg/dL 0.1-0.5 ALKALINE PHOSPHATASE (BEAKER) (test zdvz=072) 100 U/L 40-150 AST (SGOT) (BEAKER) (test ykkp=432) 27 U/L 5-34 ALT (SGPT) (BEAKER) (test lniv=675) 27 U/L 6-55 Check Serum Magnesium level 2 hours after IV magnesium replacement.PROTHROMBIN [id number] 04:33:00 Test Item Value Reference Range Comments PROTIME (BEAKER) (test obkh=121) 16.6 seconds 11.7-14.7 INR (BEAKER) (test iwgh=361) 1.4 <=5.9 RECOMMENDED COUMADIN/WARFARIN INR THERAPY RANGESSTANDARD DOSE: 2.0 - 3.0 Includes: PROPHYLAXIS forvenous thrombosis, systemic embolization; TREATMENT for venous thrombosis and/or pulmonary embolus.HIGH RISK: Target INR is 2.5-3.5 for patients with mechanical heart valves.[id number] 01:32:00 Test Item Value Reference Range Comments POTASSIUM (BEAKER) (test vuov=293) 4.0 meq/L 3.5-5.1 Check Serum Magnesium level 2 hours after IV magnesium replacement.[id number] -[id number] 01:32:00 Test Item Value Reference Range Comments MAGNESIUM (BEAKER) (test ohkt=141) 2.6 mg/dL 1.6-2.6 Check Serum Magnesium level 2 hours after IV magnesium replacement.POCT-GLUCOSE [id number] 01:04:00 Test Item Value Reference Range Comments POC-GLUCOSE METER (BEAKER) 142 mg/dL 70-110 TESTED AT [address] (test sgsp=8076) [place] [address] [id number] 18:48:00 Test Item Value Reference Range Comments POTASSIUM (BEAKER) (test bogd=276) 4.5 meq/L 3.5-5.1 Check Serum Magnesium level 2 hours after IV magnesium replacement.[id number] -[id number] 18:48:00 Test Item Value Reference Range Comments MAGNESIUM (BEAKER) (test orbs=333) 2.5 mg/dL 1.6-2.6 Check Serum Magnesium level 2 hours after IV magnesium replacement.CALCIUM, [id number] 18:33:00 Test Item Value Reference Range Comments CALCIUM IONIZED (BEAKER) (test zoub=754) 1.13 mmol/L 1.12-1.27 PH, BLOOD (BEAKER) (test asrk=0704) 7.39 Check serum Ionized Calcium level after 4 hours after IV Calcium replacement.POCT-GLUCOSE [id number] 17:19:00 Test Item Value Reference Range Comments POC-GLUCOSE METER (BEAKER) 169 mg/dL 70-110 TESTED AT [address] (test nvag=3766) [place] [address] [id number] 13:12:00 Test Item Value Reference Range Comments POTASSIUM (BEAKER) (test uqck=885) 3.6 meq/L 3.5-5.1 Check Serum Magnesium level 2 hours after IV magnesium replacement.[id number] -[id number] 13:12:00 Test Item Value Reference Range Comments MAGNESIUM (BEAKER) (test qmxy=422) 2.1 mg/dL 1.6-2.6 Check Serum Magnesium level 2 hours after IV magnesium replacement.POCT-GLUCOSE [id number] 12:25:00 Test Item Value Reference Range Comments POC-GLUCOSE METER (BEAKER) 149 mg/dL 70-110 TESTED AT [address] (test pthz=0511) [facility] [address] CALCIUM, [id number] 12:12:00 Test Item Value Reference Range Comments CALCIUM IONIZED (BEAKER) (test xyib=862) 1.07 mmol/L 1.12-1.27 PH, BLOOD (BEAKER) (test snsh=5269) 7.40 Check serum Ionized Calcium level after 4 hours after IV Calcium replacement.POCT-GLUCOSE [id number] 07:51:00 Test Item Value Reference Range Comments POC-GLUCOSE METER (BEAKER) 92 mg/dL 70-110 TESTED AT [address] (test gwql=3719) [facility] [address] BLOOD GAS, [id number] 05:03:00 Test Item Value Reference Range Comments PH ARTERIAL (BEAKER) (test qpva=489) 7.47 7.35-7.45 PCO2 ARTERIAL (BEAKER) (test owpy=299) 58 mmHg 35-45 PO2 ARTERIAL (BEAKER) (test cudv=560) 186 mmHg 80-90 O2 SATURATION ARTERIAL (BEAKER) (test kjnz=540) 99.3 % 96.0-97.0 HCO3 ARTERIAL (BEAKER) (test zaqg=000) 41 mmol/L 21-29 BASE EXCESS ARTERIAL (BEAKER) (test woft=650) 15.6 mmol/L -2.0-3.0 PATIENT TEMPERATURE (BEAKER) (test mrpa=1117) 37.0 C FIO2 (BEAKER) (test kxgu=2419) 50.0 % CBC W/PLT COUNT & AUTO [id number] 04:18:00 Test Item Value Reference Range Comments WHITE BLOOD CELL COUNT (BEAKER) (test dsqi=884) 11.8 K/ L 4.0-10.0 RED BLOOD CELL COUNT (BEAKER) (test gbiy=023) 2.65 M/ L 4.20-5.80 HEMOGLOBIN (BEAKER) (test evog=455) 8.7 GM/DL 13.0-16.8 HEMATOCRIT (BEAKER) (test jgvl=998) 26.2 % 40.0-50.0 MEAN CORPUSCULAR VOLUME (BEAKER) (test fqpi=319) 98.7 fL 82.0-98.0 MEAN CORPUSCULAR HEMOGLOBIN (BEAKER) (test 32.8 pg 27.0-33.0 abqo=952) MEAN CORPUSCULAR HEMOGLOBIN CONC (BEAKER) (test 33.2 GM/DL 32.0-36.0 mzck=869) RED CELL DISTRIBUTION WIDTH (BEAKER) (test 15.7 % 10.3-14.2 owbg=038) PLATELET COUNT (BEAKER) (test zcuf=640) 42 K/CU MM 150-430 MEAN PLATELET VOLUME (BEAKER) (test vmfb=084) 8.2 fL 6.5-10.5 NUCLEATED RED BLOOD CELLS (BEAKER) (test 0 /100 WBC 0-0 ynpo=244) NEUTROPHILS RELATIVE PERCENT (BEAKER) (test 90 % havc=131) LYMPHOCYTES RELATIVE PERCENT (BEAKER) (test 3 % ycmq=535) MONOCYTES RELATIVE PERCENT (BEAKER) (test 8 % lqrf=714) EOSINOPHILS RELATIVE PERCENT (BEAKER) (test 0 % drfu=472) BASOPHILS RELATIVE PERCENT (BEAKER) (test 0 % advl=111) NEUTROPHILS ABSOLUTE COUNT (BEAKER) (test 10.60 K/ L 1.80-8.00 kitd=768) LYMPHOCYTES ABSOLUTE COUNT (BEAKER) (test 0.32 K/ L 1.48-4.50 fgrx=568) MONOCYTES ABSOLUTE COUNT (BEAKER) (test ukmg=559) 0.91 K/ L 0.00-1.30 EOSINOPHILS ABSOLUTE COUNT (BEAKER) (test 0.01 K/ L 0.00-0.50 fiud=991) BASOPHILS ABSOLUTE COUNT (BEAKER) (test ivqo=459) 0.00 K/ L 0.00-0.20 0.00BASI METABOLIC [id number] 04:12:00 Test Item Value Reference Range Comments SODIUM (BEAKER) (test 139 meq/L 136-145 nxeh=890) POTASSIUM (BEAKER) (test 3.9 meq/L 3.5-5.1 tdau=677) CHLORIDE (BEAKER) (test 92 meq/L 98-107 beza=214) CO2 (BEAKER) (test 39 meq/L 22-29 ezqe=924) BLOOD UREA NITROGEN 44 mg/dL 7-21 (BEAKER) (test rbef=234) CREATININE (BEAKER) (test 0.95 mg/dL 0.57-1.25 nozc=136) GLUCOSE RANDOM (BEAKER) 104 mg/dL 70-105 (test amfv=803) CALCIUM (BEAKER) (test 8.7 mg/dL 8.4-10.2 ykqv=814) EGFR (BEAKER) (test mL/min/1.73 sq m INSUFFICIENT CLINICAL DATA qdih=9221) TO CALCULATE ESTIMATED GFR. [id number] 04:04:00 Test Item Value Reference Range Comments POTASSIUM (BEAKER) (test dciu=290) 3.9 meq/L 3.5-5.1 [id number] 04:04:00 Test Item Value Reference Range Comments MAGNESIUM (BEAKER) (test dtam=042) 2.4 mg/dL 1.6-2.6 HEPATIC FUNCTION [id number] 04:04:00 Test Item Value Reference Range Comments TOTAL PROTEIN (BEAKER) (test hcxi=102) 6.6 gm/dL 6.0-8.3 ALBUMIN (BEAKER) (test zbmc=1069) 3.5 g/dL 3.5-5.0 BILIRUBIN TOTAL (BEAKER) (test jnql=896) 1.7 mg/dL 0.2-1.2 BILIRUBIN DIRECT (BEAKER) (test tqjv=185) 0.9 mg/dL 0.1-0.5 ALKALINE PHOSPHATASE (BEAKER) (test gnqf=382) 98 U/L 40-150 AST (SGOT) (BEAKER) (test kdvr=268) 33 U/L 5-34 ALT (SGPT) (BEAKER) (test mqze=196) 26 U/L 6-55 PROTHROMBIN [id number] 03:49:00 Test Item Value Reference Range Comments PROTIME (BEAKER) (test ymrm=610) 16.3 seconds 11.7-14.7 INR (BEAKER) (test zqgp=207) 1.3 <=5.9 RECOMMENDED COUMADIN/WARFARIN INR THERAPY RANGESSTANDARD DOSE: 2.0 - 3.0 Includes: PROPHYLAXIS forvenous thrombosis, systemic embolization; TREATMENT for venous thrombosis and/or pulmonary embolus.HIGH RISK: Target INR is 2.5-3.5 for patients with mechanical heart valves.BASIC METABOLIC [id number] 00:47: 00 Test Item Value Reference Range Comments SODIUM (BEAKER) (test 137 meq/L 136-145 flal=863) POTASSIUM (BEAKER) (test 4.0 meq/L 3.5-5.1 lbhg=606) CHLORIDE (BEAKER) (test 93 meq/L 98-107 tgli=840) CO2 (BEAKER) (test 36 meq/L 22-29 wwxs=471) BLOOD UREA NITROGEN 45 mg/dL 7-21 (BEAKER) (test mxzc=914) CREATININE (BEAKER) (test 1.03 mg/dL 0.57-1.25 mvyt=135) GLUCOSE RANDOM (BEAKER) 146 mg/dL 70-105 (test ncza=701) CALCIUM (BEAKER) (test 7.9 mg/dL 8.4-10.2 njef=496) EGFR (BEAKER) (test mL/min/1.73 sq m INSUFFICIENT CLINICAL DATA yfjj=4479) TO CALCULATE ESTIMATED GFR. Check Serum Magnesium level 2 hours after IV magnesium replacement.CBC W/PLT COUNT & AUTO [id number] 00:10:00 Test Item Value Reference Range Comments WHITE BLOOD CELL COUNT (BEAKER) (test yewx=303) 11.3 K/ L 4.0-10.0 RED BLOOD CELL COUNT (BEAKER) (test brie=337) 2.58 M/ L 4.20-5.80 HEMOGLOBIN (BEAKER) (test lswn=245) 8.5 GM/DL 13.0-16.8 HEMATOCRIT (BEAKER) (test fhua=278) 25.5 % 40.0-50.0 MEAN CORPUSCULAR VOLUME (BEAKER) (test garq=564) 99.0 fL 82.0-98.0 MEAN CORPUSCULAR HEMOGLOBIN (BEAKER) (test 32.9 pg 27.0-33.0 sipu=904) MEAN CORPUSCULAR HEMOGLOBIN CONC (BEAKER) (test 33.3 GM/DL 32.0-36.0 txay=524) RED CELL DISTRIBUTION WIDTH (BEAKER) (test 15.6 % 10.3-14.2 ivjw=244) PLATELET COUNT (BEAKER) (test jncm=883) 40 K/CU MM 150-430 MEAN PLATELET VOLUME (BEAKER) (test tczf=665) 8.4 fL 6.5-10.5 NUCLEATED RED BLOOD CELLS (BEAKER) (test 0 /100 WBC 0-0 brag=932) NEUTROPHILS RELATIVE PERCENT (BEAKER) (test 90 % fdqh=644) LYMPHOCYTES RELATIVE PERCENT (BEAKER) (test 2 % quht=360) MONOCYTES RELATIVE PERCENT (BEAKER) (test 7 % flbu=542) EOSINOPHILS RELATIVE PERCENT (BEAKER) (test 0 % ancc=213) BASOPHILS RELATIVE PERCENT (BEAKER) (test 1 % mksa=733) NEUTROPHILS ABSOLUTE COUNT (BEAKER) (test 10.20 K/ L 1.80-8.00 muno=079) LYMPHOCYTES ABSOLUTE COUNT (BEAKER) (test 0.19 K/ L 1.48-4.50 nknp=415) MONOCYTES ABSOLUTE COUNT (BEAKER) (test axwz=793) 0.83 K/ L 0.00-1.30 EOSINOPHILS ABSOLUTE COUNT (BEAKER) (test 0.01 K/ L 0.00-0.50 dqzb=211) BASOPHILS ABSOLUTE COUNT (BEAKER) (test lerh=906) 0.07 K/ L 0.00-0.20 0.00CALCIUM, [id number] 00:07:00 Test Item Value Reference Range Comments CALCIUM IONIZED (BEAKER) (test drse=264) 1.06 mmol/L 1.12-1.27 PH, BLOOD (BEAKER) (test dfog=9886) 7.38 [id number] 23:53:00 Test Item Value Reference Range Comments POTASSIUM (BEAKER) (test khdm=108) 4.1 meq/L 3.5-5.1 Check Serum Magnesium level 2 hours after IV magnesium replacement.[id number] -[id number] 23:53:00 Test Item Value Reference Range Comments MAGNESIUM (BEAKER) (test wycl=500) 2.0 mg/dL 1.6-2.6 Check Serum Magnesium level 2 hours after IV magnesium replacement.POCT-GLUCOSE [id number] 22:39:00 Test Item Value Reference Range Comments POC-GLUCOSE METER (BEAKER) 209 mg/dL 70-110 TESTED AT [address] (test cznj=6651) [facility] [address] POCT-GLUCOSE [id number] 20:00:00 Test Item Value Reference Range Comments POC-GLUCOSE METER (BEAKER) 168 mg/dL 70-110 TESTED AT [facility] [address] (test vsqm=4365) [facility] [address] [id number] 18:48:00 Test Item Value Reference Range Comments POTASSIUM (BEAKER) (test jizn=246) 3.9 meq/L 3.5-5.1 Check Serum Magnesium level 2 hours after IV magnesium replacement.[id number] -04-07 18:48:00 Test Item Value Reference Range Comments MAGNESIUM (BEAKER) (test hfbe=468) 2.2 mg/dL 1.6-2.6 Check Serum Magnesium level 2 hours after IV magnesium replacement.[id number] -[id number] 12:21:00 Test Item Value Reference Range Comments POTASSIUM (BEAKER) (test uwkw=865) 3.5 meq/L 3.5-5.1 Check Serum Magnesium level 2 hours after IV magnesium replacement.[id number] -[id number] 12:21:00 Test Item Value Reference Range Comments MAGNESIUM (BEAKER) (test egec=250) 2.2 mg/dL 1.6-2.6 Check Serum Magnesium level 2 hours after IV magnesium replacement.LACTATE DEHYDROGENASE (LDH)2016-09-26 12:08:00 Test Item Value Reference Range Comments LACTATE DEHYDROGENASE (BEAKER) (test ytfg=723) 291 U/L 125-220 [id number] 12:06:00 Test Item Value Reference Range Comments D-DIMER QUANTITATIVE (BEAKER) (test cnix=710) 9.38 MG/L FEU <0.50 Intended Use: The D-Dimer Assay can be used to aid in the diagnosis of Deep Vein Thrombosis (DVT) and Pulmonary Embolism Disease (PED).In patients with low pre-test probability, various studies concerning STA Liatest D-dimer test have reported that with a cutoff value of 0.50 MG/L FEU, the Negative Predictive Value (NPV) regarding the exclusion of thrombosis is within 95-100% range.[id number] 11:51:00 Test Item Value Reference Range Comments FIBRINOGEN LEVEL (BEAKER) (test aqzb=170) 247 mg/dl 225-434 BLOOD GAS, [id number] 11:39:00 Test Item Value Reference Range Comments PH ARTERIAL (BEAKER) (test hlct=480) 7.44 7.35-7.45 PCO2 ARTERIAL (BEAKER) (test zmmn=322) 55 mmHg 35-45 PO2 ARTERIAL (BEAKER) (test rbsq=299) 101 mmHg 80-90 O2 SATURATION ARTERIAL (BEAKER) (test uhtv=311) 97.8 % 96.0-97.0 HCO3 ARTERIAL (BEAKER) (test onta=715) 37 mmol/L 21-29 BASE EXCESS ARTERIAL (BEAKER) (test uyyn=989) 11.2 mmol/L -2.0-3.0 PATIENT TEMPERATURE (BEAKER) (test ifng=4884) 36.5 C FIO2 (BEAKER) (test oocd=3601) 36.0 % HEMOGLOBIN [id number] 08:13:00 Test Item Value Reference Range Comments HEMOGLOBIN A1C (BEAKER) (test gals=378) 5.5 % 4.3-6.1 BLOOD GAS, [id number] 07:04:00 Test Item Value Reference Range Comments PH ARTERIAL (BEAKER) (test xyec=807) 7.38 7.35-7.45 PCO2 ARTERIAL (BEAKER) (test ktcn=822) 60 mmHg 35-45 PO2 ARTERIAL (BEAKER) (test ddbh=828) 293 mmHg 80-90 O2 SATURATION ARTERIAL (BEAKER) (test bguq=756) 99.6 % 96.0-97.0 HCO3 ARTERIAL (BEAKER) (test hopr=695) 35 mmol/L 21-29 BASE EXCESS ARTERIAL (BEAKER) (test hkzy=311) 7.9 mmol/L -2.0-3.0 PATIENT TEMPERATURE (BEAKER) (test pafl=9501) 36.5 C FIO2 (BEAKER) (test bqtc=6964) 60.0 % OXYGEN SATURATION, [id number] 06:13:00 Test Item Value Reference Range Comments O2 SATURATION (MEASURED) (BEAKER) (test xbdu=0988) 89.5 % [id number] 05:30:00 Test Item Value Reference Range Comments MAGNESIUM (BEAKER) (test pfzv=559) 2.1 mg/dL 1.6-2.6 HEPATIC FUNCTION [id number] 05:30:00 Test Item Value Reference Range Comments TOTAL PROTEIN (BEAKER) (test walb=504) 6.4 gm/dL 6.0-8.3 ALBUMIN (BEAKER) (test fjje=2134) 3.5 g/dL 3.5-5.0 BILIRUBIN TOTAL (BEAKER) (test hcuv=942) 1.6 mg/dL 0.2-1.2 BILIRUBIN DIRECT (BEAKER) (test qkbg=221) 0.9 mg/dL 0.1-0.5 ALKALINE PHOSPHATASE (BEAKER) (test tzyg=427) 86 U/L 40-150 AST (SGOT) (BEAKER) (test gcsb=566) 38 U/L 5-34 ALT (SGPT) (BEAKER) (test ouhi=662) 29 U/L 6-55 BASIC METABOLIC [id number] 05:30:00 Test Item Value Reference Range Comments SODIUM (BEAKER) (test 138 meq/L 136-145 btol=881) POTASSIUM (BEAKER) (test 4.1 meq/L 3.5-5.1 xerg=740) CHLORIDE (BEAKER) (test 98 meq/L 98-107 mlqw=909) CO2 (BEAKER) (test 31 meq/L 22-29 tboj=381) BLOOD UREA NITROGEN 46 mg/dL 7-21 (BEAKER) (test kkms=184) CREATININE (BEAKER) (test 1.06 mg/dL 0.57-1.25 zcrq=089) GLUCOSE RANDOM (BEAKER) 128 mg/dL 70-105 (test rlqs=965) CALCIUM (BEAKER) (test 8.1 mg/dL 8.4-10.2 hnig=308) EGFR (BEAKER) (test mL/min/1.73 sq m INSUFFICIENT CLINICAL DATA qjid=2920) TO CALCULATE ESTIMATED GFR. CBC W/PLT COUNT & AUTO [id number] 05:18:00 Test Item Value Reference Range Comments WHITE BLOOD CELL COUNT (BEAKER) (test fuwd=263) 13.3 K/ L 4.0-10.0 RED BLOOD CELL COUNT (BEAKER) (test boge=601) 2.68 M/ L 4.20-5.80 HEMOGLOBIN (BEAKER) (test gdtq=715) 8.6 GM/DL 13.0-16.8 HEMATOCRIT (BEAKER) (test zmmv=365) 26.3 % 40.0-50.0 MEAN CORPUSCULAR VOLUME (BEAKER) (test bmdr=809) 98.1 fL 82.0-98.0 MEAN CORPUSCULAR HEMOGLOBIN (BEAKER) (test 32.2 pg 27.0-33.0 pidq=736) MEAN CORPUSCULAR HEMOGLOBIN CONC (BEAKER) (test 32.8 GM/DL 32.0-36.0 bomb=722) RED CELL DISTRIBUTION WIDTH (BEAKER) (test 15.5 % 10.3-14.2 lkni=761) PLATELET COUNT (BEAKER) (test afql=008) 40 K/CU MM 150-430 MEAN PLATELET VOLUME (BEAKER) (test wxoo=714) 8.7 fL 6.5-10.5 NUCLEATED RED BLOOD CELLS (BEAKER) (test 0 /100 WBC 0-0 ldrv=324) NEUTROPHILS RELATIVE PERCENT (BEAKER) (test 91 % fvut=186) LYMPHOCYTES RELATIVE PERCENT (BEAKER) (test 2 % aypk=049) MONOCYTES RELATIVE PERCENT (BEAKER) (test 7 % usrn=608) EOSINOPHILS RELATIVE PERCENT (BEAKER) (test 0 % wbtr=185) BASOPHILS RELATIVE PERCENT (BEAKER) (test 0 % sxss=402) NEUTROPHILS ABSOLUTE COUNT (BEAKER) (test 12.10 K/ L 1.80-8.00 osga=680) LYMPHOCYTES ABSOLUTE COUNT (BEAKER) (test 0.31 K/ L 1.48-4.50 hwvn=791) MONOCYTES ABSOLUTE COUNT (BEAKER) (test ibjm=429) 0.87 K/ L 0.00-1.30 EOSINOPHILS ABSOLUTE COUNT (BEAKER) (test 0.01 K/ L 0.00-0.50 lsxu=805) BASOPHILS ABSOLUTE COUNT (BEAKER) (test xnxa=615) 0.00 K/ L 0.00-0.20 0.00PROTHROMBIN [id number] 05:07:00 Test Item Value Reference Range Comments PROTIME (BEAKER) (test uzxv=567) 16.7 seconds 11.7-14.7 INR (BEAKER) (test depz=416) 1.4 <=5.9 RECOMMENDED COUMADIN/WARFARIN INR THERAPY RANGESSTANDARD DOSE: 2.0 - 3.0 Includes: PROPHYLAXIS forvenous thrombosis, systemic embolization; TREATMENT for venous thrombosis and/or pulmonary embolus.HIGH RISK: Target INR is 2.5-3.5 for patients with mechanical heart valves.BLOOD GAS, [id number] 23:30:00 Test Item Value Reference Range Comments PH ARTERIAL (BEAKER) (test tcvr=665) 7.33 7.35-7.45 PCO2 ARTERIAL (BEAKER) (test jbgl=874) 60 mmHg 35-45 PO2 ARTERIAL (BEAKER) (test tvfy=852) 169 mmHg 80-90 O2 SATURATION ARTERIAL (BEAKER) (test xean=025) 99.0 % 96.0-97.0 HCO3 ARTERIAL (BEAKER) (test amhq=452) 31 mmol/L 21-29 BASE EXCESS ARTERIAL (BEAKER) (test mefo=484) 4.2 mmol/L -2.0-3.0 PATIENT TEMPERATURE (BEAKER) (test tfvm=8676) 36.5 C FIO2 (BEAKER) (test loth=6342) 36.0 % POTASSIUM-STAT [id number] 23:07:00 Test Item Value Reference Range Comments POTASSIUM (BEAKER) (test snts=320) 4.3 meq/L 3.6-5.5 SODIUM NA-STAT [id number] 23:07:00 Test Item Value Reference Range Comments SODIUM (BEAKER) (test hlmn=951) 134 meq/L 135-148 HGB/HCT (H&H) - STAT [id number] 23:07:00 Test Item Value Reference Range Comments HEMOGLOBIN (BEAKER) (test wluc=144) 9.5 g/dL 13.0-16.8 HEMATOCRIT (BEAKER) (test fyyd=863) 28.0 % 40.0-50.0 CALCIUM, [id number] 23:06:00 Test Item Value Reference Range Comments CALCIUM IONIZED (BEAKER) (test dcuo=632) 1.15 mmol/L 1.12-1.27 PH, BLOOD (BEAKER) (test nyid=2917) 7.28 POCT-GLUCOSE [id number] 21:58:00 Test Item Value Reference Range Comments POC-GLUCOSE METER (BEAKER) 202 mg/dL 70-110 TESTED AT [facility] [address] [facility] (test hvtk=1380) [facility] [address] POCT-GLUCOSE [id number] 16:44:00 Test Item Value Reference Range Comments POC-GLUCOSE METER (BEAKER) 220 mg/dL 70-110 TESTED AT [address] (test hykw=2842) [facility] [address] PERIPHERAL BLOOD SMEAR - HOLD [id number] 16:10:00 Test Item Value Reference Range Comments PERIPHERAL SMEAR SAVE (BEAKER) (test hfzk=3947) saved POCT-GLUCOSE [id number] 11:01:00 Test Item Value Reference Range Comments POC-GLUCOSE METER (BEAKER) 152 mg/dL 70-110 TESTED AT [address] (test vnnb=6721) [facility] [address] POCT-GLUCOSE [id number] 07:16:00 Test Item Value Reference Range Comments POC-GLUCOSE METER (BEAKER) 125 mg/dL 70-110 TESTED AT [address] (test pcwc=4754) [facility] [address] BASIC METABOLIC [id number] 03:47:00 Test Item Value Reference Range Comments SODIUM (BEAKER) (test 136 meq/L 136-145 snmo=035) POTASSIUM (BEAKER) (test 4.0 meq/L 3.5-5.1 knro=289) CHLORIDE (BEAKER) (test 101 meq/L 98-107 qfeb=398) CO2 (BEAKER) (test 27 meq/L 22-29 hgvy=327) BLOOD UREA NITROGEN 46 mg/dL 7-21 (BEAKER) (test yjcd=219) CREATININE (BEAKER) (test 1.28 mg/dL 0.57-1.25 sbga=472) GLUCOSE RANDOM (BEAKER) 133 mg/dL 70-105 (test ajpc=662) CALCIUM (BEAKER) (test 8.4 mg/dL 8.4-10.2 giep=885) EGFR (BEAKER) (test mL/min/1.73 sq m INSUFFICIENT CLINICAL DATA eraw=3742) TO CALCULATE ESTIMATED GFR. [id number] 03:46:00 Test Item Value Reference Range Comments MAGNESIUM (BEAKER) (test rjsu=321) 2.2 mg/dL 1.6-2.6 HEPATIC FUNCTION [id number] 03:46:00 Test Item Value Reference Range Comments TOTAL PROTEIN (BEAKER) (test weby=257) 6.0 gm/dL 6.0-8.3 ALBUMIN (BEAKER) (test qybq=9572) 3.4 g/dL 3.5-5.0 BILIRUBIN TOTAL (BEAKER) (test juhc=681) 1.7 mg/dL 0.2-1.2 BILIRUBIN DIRECT (BEAKER) (test opbd=996) 1.0 mg/dL 0.1-0.5 ALKALINE PHOSPHATASE (BEAKER) (test visd=790) 72 U/L 40-150 AST (SGOT) (BEAKER) (test rgqg=618) 46 U/L 5-34 ALT (SGPT) (BEAKER) (test hfzd=719) 32 U/L 6-55 [id number] 03:45:00 Test Item Value Reference Range Comments PARTIAL THROMBOPLASTIN TIME (BEAKER) (test 34.2 seconds 22.5-36.0 jnpw=092) PROTHROMBIN [id number] 03:44:00 Test Item Value Reference Range Comments PROTIME (BEAKER) (test aqqq=850) 18.3 seconds 11.7-14.7 INR (BEAKER) (test dmgh=206) 1.5 <=5.9 RECOMMENDED COUMADIN/WARFARIN INR THERAPY RANGESSTANDARD DOSE: 2.0 - 3.0 Includes: PROPHYLAXIS forvenous thrombosis, systemic embolization; TREATMENT for venous thrombosis and/or pulmonary embolus.HIGH RISK: Target INR is 2.5-3.5 for patients with mechanical heart valves.CBC W/PLT COUNT & AUTO [id number] 03:42:00 Test Item Value Reference Range Comments WHITE BLOOD CELL COUNT (BEAKER) (test dcpb=460) 17.8 K/ L 4.0-10.0 RED BLOOD CELL COUNT (BEAKER) (test xnxu=969) 2.81 M/ L 4.20-5.80 HEMOGLOBIN (BEAKER) (test tsjb=325) 8.9 GM/DL 13.0-16.8 HEMATOCRIT (BEAKER) (test rsxr=008) 27.4 % 40.0-50.0 MEAN CORPUSCULAR VOLUME (BEAKER) (test qcnm=823) 97.5 fL 82.0-98.0 MEAN CORPUSCULAR HEMOGLOBIN (BEAKER) (test 31.7 pg 27.0-33.0 ditk=178) MEAN CORPUSCULAR HEMOGLOBIN CONC (BEAKER) (test 32.6 GM/DL 32.0-36.0 clpt=610) RED CELL DISTRIBUTION WIDTH (BEAKER) (test 14.8 % 10.3-14.2 kejt=133) PLATELET COUNT (BEAKER) (test guqa=620) 56 K/CU MM 150-430 MEAN PLATELET VOLUME (BEAKER) (test agmn=169) 8.6 fL 6.5-10.5 NUCLEATED RED BLOOD CELLS (BEAKER) (test 0 /100 WBC 0-0 uaff=157) NEUTROPHILS RELATIVE PERCENT (BEAKER) (test 89 % brvc=978) LYMPHOCYTES RELATIVE PERCENT (BEAKER) (test 3 % vrgb=171) MONOCYTES RELATIVE PERCENT (BEAKER) (test 8 % qrnz=872) EOSINOPHILS RELATIVE PERCENT (BEAKER) (test 0 % oycy=612) BASOPHILS RELATIVE PERCENT (BEAKER) (test 0 % mofb=377) NEUTROPHILS ABSOLUTE COUNT (BEAKER) (test 15.90 K/ L 1.80-8.00 wnuy=566) LYMPHOCYTES ABSOLUTE COUNT (BEAKER) (test 0.51 K/ L 1.48-4.50 gldg=405) MONOCYTES ABSOLUTE COUNT (BEAKER) (test ydhe=487) 1.38 K/ L 0.00-1.30 EOSINOPHILS ABSOLUTE COUNT (BEAKER) (test 0.01 K/ L 0.00-0.50 wilu=853) BASOPHILS ABSOLUTE COUNT (BEAKER) (test rmna=261) 0.00 K/ L 0.00-0.20 0.00OXYGEN SATURATION, [id number] 03:33:00 Test Item Value Reference Range Comments O2 SATURATION (MEASURED) (BEAKER) (test yogi=7346) 68.8 % POCT-GLUCOSE [id number] 21:40:00 Test Item Value Reference Range Comments POC-GLUCOSE METER (BEAKER) 181 mg/dL 70-110 TESTED AT [facility] [address] [facility] (test pdym=5839) [facility] [address] BASIC METABOLIC [id number] 21:06:00 Test Item Value Reference Range Comments SODIUM (BEAKER) (test 136 meq/L 136-145 tyve=093) POTASSIUM (BEAKER) (test 4.1 meq/L 3.5-5.1 vcol=437) CHLORIDE (BEAKER) (test 102 meq/L 98-107 qslt=147) CO2 (BEAKER) (test 22 meq/L 22-29 xtne=735) BLOOD UREA NITROGEN 40 mg/dL 7-21 (BEAKER) (test trdz=834) CREATININE (BEAKER) (test 1.38 mg/dL 0.57-1.25 lbcw=605) GLUCOSE RANDOM (BEAKER) 207 mg/dL 70-105 (test hdol=729) CALCIUM (BEAKER) (test 8.6 mg/dL 8.4-10.2 pqvm=667) EGFR (BEAKER) (test mL/min/1.73 sq m INSUFFICIENT CLINICAL DATA puej=2779) TO CALCULATE ESTIMATED GFR. [id number] 21:04:00 Test Item Value Reference Range Comments PHOSPHORUS (BEAKER) (test lktw=742) 5.4 mg/dL 2.3-4.7 [id number] 21:04:00 Test Item Value Reference Range Comments MAGNESIUM (BEAKER) (test fzqc=190) 2.2 mg/dL 1.6-2.6 CALCIUM, [id number] 20:47:00 Test Item Value Reference Range Comments CALCIUM IONIZED (BEAKER) (test rpfl=047) 1.13 mmol/L 1.12-1.27 PH, BLOOD (BEAKER) (test avnh=6413) 7.38 POCT-GLUCOSE [id number] 17:51:00 Test Item Value Reference Range Comments POC-GLUCOSE METER (BEAKER) 173 mg/dL 70-110 TESTED AT [facility] [address] [facility] (test jzfr=6914) [facility] [address] LACTIC ACID, ARTERIAL, WHOLE [id number] 13:02:00 Test Item Value Reference Range Comments LACTATE BLOOD ARTERIAL (2) 1.4 mmol/L 0.5-2.2 Specimen slightly hemolyzed (BEAKER) (test ozps=4562) Effective 10/24/2015: Units/Reference Range ChangeNew: 0.5-2.2 mmol/L Previous: 5 -20 mg/dLSpecimen slightly ictericOXYGEN SATURATION, [id number] 07:40:00 Test Item Value Reference Range Comments O2 SATURATION (MEASURED) (BEAKER) (test ehae=8482) 71.2 % BLOOD GAS, [id number] 07:39:00 Test Item Value Reference Range Comments PH ARTERIAL (BEAKER) (test yjlm=924) 7.42 7.35-7.45 PCO2 ARTERIAL (BEAKER) (test xjbm=601) 42 mmHg 35-45 PO2 ARTERIAL (BEAKER) (test bxee=657) 126 mmHg 80-90 O2 SATURATION ARTERIAL (BEAKER) (test ghga=706) 98.6 % 96.0-97.0 HCO3 ARTERIAL (BEAKER) (test mafd=139) 27 mmol/L 21-29 BASE EXCESS ARTERIAL (BEAKER) (test ndhe=891) 1.8 mmol/L -2.0-3.0 PATIENT TEMPERATURE (BEAKER) (test iadp=5280) 36.3 C FIO2 (BEAKER) (test qpbe=2168) 36.0 % [id number] 05:56:00 Test Item Value Reference Range Comments ACTIVATED CLOTTING TIME 131 sec TESTED AT [address] [facility] (test pvvb=108) [place] [address] [id number] 05:56:00 Test Item Value Reference Range Comments ACTIVATED CLOTTING TIME > sec OUTSIDE MEASURING RANGETESTED AT ([facility] (test vckz=386) [place] [address] [id number] 05:56:00 Test Item Value Reference Range Comments ACTIVATED CLOTTING TIME 441 sec TESTED AT [address] ([facility]) (test stxe=047) [place] [id number] 05:56:00 Test Item Value Reference Range Comments ACTIVATED CLOTTING TIME 533 sec TESTED AT [address] ([facility] (test mubt=424) [place] [address] [id number] 05:56:00 Test Item Value Reference Range Comments ACTIVATED CLOTTING TIME 528 sec TESTED AT [address] ([facility] (test lgrd=016) [place] [address] [id number] 05:56:00 Test Item Value Reference Range Comments ACTIVATED CLOTTING TIME 415 sec TESTED AT [address] ([facility] (test ksir=389) [place] [id number] 05:56:00 Test Item Value Reference Range Comments ACTIVATED CLOTTING TIME 301 sec TESTED AT [address] ([facility] (test phfk=431) [place] [id number] POCT-GLUCOSE [id number] 05:45:00 Test Item Value Reference Range Comments POC-GLUCOSE METER (BEAKER) 116 mg/dL 70-110 TESTED AT [facility] [address] [facility] (test rrob=0004) [facility] [address] BASIC METABOLIC [id number] 02:50:00 Test Item Value Reference Range Comments SODIUM (BEAKER) (test 139 meq/L 136-145 lieg=596) POTASSIUM (BEAKER) (test 4.5 meq/L 3.5-5.1 xumi=995) CHLORIDE (BEAKER) (test 105 meq/L 98-107 skkx=230) CO2 (BEAKER) (test 23 meq/L 22-29 vihc=513) BLOOD UREA NITROGEN 42 mg/dL 7-21 (BEAKER) (test wfst=200) CREATININE (BEAKER) (test 1.28 mg/dL 0.57-1.25 lxnv=610) GLUCOSE RANDOM (BEAKER) 121 mg/dL 70-105 (test kadx=963) CALCIUM (BEAKER) (test 9.3 mg/dL 8.4-10.2 hxna=001) EGFR (BEAKER) (test mL/min/1.73 sq m INSUFFICIENT CLINICAL DATA bmul=4189) TO CALCULATE ESTIMATED GFR. Specimen slightly ictericHEPATIC FUNCTION [id number] 02:42:00 Test Item Value Reference Range Comments TOTAL PROTEIN (BEAKER) (test yzol=951) 5.8 gm/dL 6.0-8.3 ALBUMIN (BEAKER) (test hmhu=6612) 3.3 g/dL 3.5-5.0 BILIRUBIN TOTAL (BEAKER) (test rigp=043) 2.2 mg/dL 0.2-1.2 BILIRUBIN DIRECT (BEAKER) (test dosj=339) 1.2 mg/dL 0.1-0.5 ALKALINE PHOSPHATASE (BEAKER) (test magc=390) 67 U/L 40-150 AST (SGOT) (BEAKER) (test wxur=684) 49 U/L 5-34 ALT (SGPT) (BEAKER) (test ktsh=036) 30 U/L 6-55 Specimen slightly ictericCBC W/PLT COUNT & AUTO [id number] 02:34 :00 Test Item Value Reference Range Comments WHITE BLOOD CELL COUNT (BEAKER) (test uxcj=792) 23.7 K/ L 4.0-10.0 RED BLOOD CELL COUNT (BEAKER) (test qesp=400) 3.08 M/ L 4.20-5.80 HEMOGLOBIN (BEAKER) (test udve=611) 9.7 GM/DL 13.0-16.8 HEMATOCRIT (BEAKER) (test qkrv=470) 30.0 % 40.0-50.0 MEAN CORPUSCULAR VOLUME (BEAKER) (test eneq=255) 97.4 fL 82.0-98.0 MEAN CORPUSCULAR HEMOGLOBIN (BEAKER) (test 31.4 pg 27.0-33.0 rivt=543) MEAN CORPUSCULAR HEMOGLOBIN CONC (BEAKER) (test 32.2 GM/DL 32.0-36.0 tcci=934) RED CELL DISTRIBUTION WIDTH (BEAKER) (test 15.4 % 10.3-14.2 lyjq=883) PLATELET COUNT (BEAKER) (test xxna=466) 128 K/CU MM 150-430 MEAN PLATELET VOLUME (BEAKER) (test nfss=941) 7.7 fL 6.5-10.5 NUCLEATED RED BLOOD CELLS (BEAKER) (test 0 /100 WBC 0-0 tziv=876) NEUTROPHILS RELATIVE PERCENT (BEAKER) (test 87 % ztmr=029) LYMPHOCYTES RELATIVE PERCENT (BEAKER) (test 3 % urlt=945) MONOCYTES RELATIVE PERCENT (BEAKER) (test 9 % pajs=576) EOSINOPHILS RELATIVE PERCENT (BEAKER) (test 0 % lhdm=879) BASOPHILS RELATIVE PERCENT (BEAKER) (test 1 % cozd=728) NEUTROPHILS ABSOLUTE COUNT (BEAKER) (test 20.70 K/ L 1.80-8.00 nvpg=894) LYMPHOCYTES ABSOLUTE COUNT (BEAKER) (test 0.71 K/ L 1.48-4.50 bdgq=413) MONOCYTES ABSOLUTE COUNT (BEAKER) (test 2.09 K/ L 0.00-1.30 vejg=706) EOSINOPHILS ABSOLUTE COUNT (BEAKER) (test 0.02 K/ L 0.00-0.50 xikz=301) BASOPHILS ABSOLUTE COUNT (BEAKER) (test 0.12 K/ L 0.00-0.20 xcib=821) [id number] 02:27:00 Test Item Value Reference Range Comments FIBRINOGEN LEVEL (BEAKER) (test xpkb=405) 225 mg/dl 225-434 [id number] 02:27:00 Test Item Value Reference Range Comments PARTIAL THROMBOPLASTIN TIME (BEAKER) (test 33.6 seconds 22.5-36.0 fvdd=309) PROTHROMBIN [id number] 02:26:00 Test Item Value Reference Range Comments PROTIME (BEAKER) (test hoez=606) 18.3 seconds 11.7-14.7 INR (BEAKER) (test otze=457) 1.5 <=5.9 RECOMMENDED COUMADIN/WARFARIN INR THERAPY RANGESSTANDARD DOSE: 2.0 - 3.0 Includes: PROPHYLAXIS forvenous thrombosis, systemic embolization; TREATMENT for venous thrombosis and/or pulmonary embolus.HIGH RISK: Target INR is 2.5-3.5 for patients with mechanical heart valves.[id number] 00:45:00 Test Item Value Reference Range Comments MAGNESIUM (BEAKER) (test nyhj=680) 2.4 mg/dL 1.6-2.6 POCT-GLUCOSE [id number] 00:03:00 Test Item Value Reference Range Comments POC-GLUCOSE METER (BEAKER) 136 mg/dL 70-110 TESTED AT [address] (test ipfe=2580) [place] [address] POCT-GLUCOSE [id number] 22:33:00 Test Item Value Reference Range Comments POC-GLUCOSE METER (BEAKER) 136 mg/dL 70-110 TESTED AT [address] (test uxah=2750) [place] [address] (MANUAL DIFFERENTIAL)[id number] 22:03:00 Test Item Value Reference Range Comments NEUTROPHILS - REL (DIFF) (BEAKER) (test 85 % lpja=8095) LYMPHOCYTES - REL (DIFF) (BEAKER) (test 5 % ofnp=6226) MONOCYTES - REL (DIFF) (BEAKER) (test gayp=1343) 7 % BANDS - REL (DIFF) (BEAKER) (test avho=9549) 3 % 0-10 NEUTROPHILS - ABS (DIFF) (BEAKER) (test 24.06 K/ L 1.80-8.00 mohw=2385) LYMPHOCYTES - ABS (DIFF) (BEAKER) (test 1.42 K/ L 1.48-4.50 wnjm=6822) MONOCYTES - ABS (DIFF) (BEAKER) (test ixko=1316) 1.98 K/ L 0.00-1.30 BANDS-ABS (DIFF) (BEAKER) (test qtqq=6572) 0.8 K/ L 0.0-0.8 TOTAL COUNTED (BEAKER) (test gqaw=5543) 100 BANDS + SEGMENTED NEUTROPHILS (BEAKER) (test 24.90 bbkx=8616) WBC MORPHOLOGY (BEAKER) (test buqa=994) Normal PLT MORPHOLOGY (BEAKER) (test wddi=281) Normal RBC MORPHOLOGY (BEAKER) (test xjop=918) Normal CBC W/PLT COUNT & AUTO [id number] 22:02:00 Test Item Value Reference Range Comments WHITE BLOOD CELL COUNT (BEAKER) (test onit=988) 28.3 K/ L 4.0-10.0 RED BLOOD CELL COUNT (BEAKER) (test mpka=866) 3.35 M/ L 4.20-5.80 HEMOGLOBIN (BEAKER) (test unuy=162) 10.5 GM/DL 13.0-16.8 HEMATOCRIT (BEAKER) (test miwh=524) 32.3 % 40.0-50.0 MEAN CORPUSCULAR VOLUME (BEAKER) (test iuci=899) 96.6 fL 82.0-98.0 MEAN CORPUSCULAR HEMOGLOBIN (BEAKER) (test 31.3 pg 27.0-33.0 gvya=018) MEAN CORPUSCULAR HEMOGLOBIN CONC (BEAKER) (test 32.4 GM/DL 32.0-36.0 vzkp=633) RED CELL DISTRIBUTION WIDTH (BEAKER) (test 14.9 % 10.3-14.2 whzc=935) PLATELET COUNT (BEAKER) (test cinw=604) 139 K/CU MM 150-430 MEAN PLATELET VOLUME (BEAKER) (test oglc=216) 7.9 fL 6.5-10.5 NUCLEATED RED BLOOD CELLS (BEAKER) (test 0 /100 WBC 0-0 jxhq=931) 0.000.550.000.000.000.00LACTIC ACID, ARTERIAL, WHOLE [id number] 21:40:00 Test Item Value Reference Range Comments LACTATE BLOOD ARTERIAL (2) (BEAKER) (test 1.3 mmol/L 0.5-2.2 erup=7903) Effective 10/24/2015: Units/Reference Range ChangeNew: 0.5-2.2 mmol/L Previous: 5 -20 mg/dLSpecimen slightly ictericPROTHROMBIN [id number] 21:34:00 Test Item Value Reference Range Comments PROTIME (BEAKER) (test gzwb=210) 18.7 seconds 11.7-14.7 INR (BEAKER) (test aiyk=367) 1.6 <=5.9 RECOMMENDED COUMADIN/WARFARIN INR THERAPY RANGESSTANDARD DOSE: 2.0 - 3.0 Includes: PROPHYLAXIS forvenous thrombosis, systemic embolization; TREATMENT for venous thrombosis and/or pulmonary embolus.HIGH RISK: Target INR is 2.5-3.5 for patients with mechanical heart valves.[id number] 21:34:00 Test Item Value Reference Range Comments PARTIAL THROMBOPLASTIN TIME (BEAKER) (test 34.3 seconds 22.5-36.0 sdcd=200) [id number] 21:28:00 Test Item Value Reference Range Comments POTASSIUM (BEAKER) (test dnsz=544) 4.6 meq/L 3.5-5.1 POCT-GLUCOSE [id number] 21:27:00 Test Item Value Reference Range Comments POC-GLUCOSE METER (BEAKER) 150 mg/dL 70-110 TESTED AT [facility] [address] [facility] (test pfrv=7640) [facility] [address] BLOOD GAS, [id number] 21:17:00 Test Item Value Reference Range Comments PH ARTERIAL (BEAKER) (test ywuv=564) 7.38 7.35-7.45 PCO2 ARTERIAL (BEAKER) (test nbge=424) 49 mmHg 35-45 PO2 ARTERIAL (BEAKER) (test zxtp=363) 102 mmHg 80-90 O2 SATURATION ARTERIAL (BEAKER) (test gkli=103) 97.5 % 96.0-97.0 HCO3 ARTERIAL (BEAKER) (test fdlt=013) 28 mmol/L 21-29 BASE EXCESS ARTERIAL (BEAKER) (test wbcc=530) 2.5 mmol/L -2.0-3.0 PATIENT TEMPERATURE (BEAKER) (test ixxx=1607) 37.1 C FIO2 (BEAKER) (test mlsp=3441) 40.0 % 30 minutes s/p bipap [id number] 20:29:00 Test Item Value Reference Range Comments POTASSIUM (BEAKER) (test pmsu=056) 4.6 meq/L 3.5-5.1 Check Serum Potassium level 2 hours after oral potassium replacement completed or 30 min after intravenous potassium replacement.BLOOD GAS, [id number] 20:06:00 Test Item Value Reference Range Comments PH ARTERIAL (BEAKER) (test bkqq=296) 7.28 7.35-7.45 PCO2 ARTERIAL (BEAKER) (test root=997) 67 mmHg 35-45 PO2 ARTERIAL (BEAKER) (test ansq=039) 80 mmHg 80-90 O2 SATURATION ARTERIAL (BEAKER) (test sncl=109) 94.0 % 96.0-97.0 HCO3 ARTERIAL (BEAKER) (test qacf=882) 31 mmol/L 21-29 BASE EXCESS ARTERIAL (BEAKER) (test mceb=771) 2.8 mmol/L -2.0-3.0 PATIENT TEMPERATURE (BEAKER) (test gzzo=3862) 37.0 C FIO2 (BEAKER) (test vlfj=3277) 36.0 % POTASSIUM-STAT [id number] 17:23:00 Test Item Value Reference Range Comments POTASSIUM (BEAKER) (test ktnr=486) 4.2 meq/L 3.6-5.5 GLUCOSE-STAT [id number] 17:23:00 Test Item Value Reference Range Comments GLUCOSE RANDOM (BEAKER) (test yonj=409) 133 mg/dL 70-110 BLOOD GAS, [id number] 17:23:00 Test Item Value Reference Range Comments PH ARTERIAL (BEAKER) (test ogzs=711) 7.44 7.35-7.45 PCO2 ARTERIAL (BEAKER) (test mvrl=298) 42 mmHg 35-45 PO2 ARTERIAL (BEAKER) (test fqsf=498) 107 mmHg 80-90 O2 SATURATION ARTERIAL (BEAKER) (test dofd=982) 98.1 % 96.0-97.0 HCO3 ARTERIAL (BEAKER) (test oiuy=835) 28 mmol/L 21-29 BASE EXCESS ARTERIAL (BEAKER) (test xzxc=770) 3.3 mmol/L -2.0-3.0 PATIENT TEMPERATURE (BEAKER) (test vyap=1567) 36.4 C FIO2 (BEAKER) (test gqhl=5345) 40.0 % CBC W/PLT COUNT & AUTO [id number] 14:50:00 Test Item Value Reference Range Comments WHITE BLOOD CELL COUNT (BEAKER) (test hfwm=496) 31.6 K/ L 4.0-10.0 RED BLOOD CELL COUNT (BEAKER) (test ynbz=305) 3.12 M/ L 4.20-5.80 HEMOGLOBIN (BEAKER) (test svvu=140) 10.6 GM/DL 13.0-16.8 HEMATOCRIT (BEAKER) (test rmsj=778) 30.0 % 40.0-50.0 MEAN CORPUSCULAR VOLUME (BEAKER) (test xzlc=106) 96.3 fL 82.0-98.0 MEAN CORPUSCULAR HEMOGLOBIN (BEAKER) (test 33.9 pg 27.0-33.0 llbj=068) MEAN CORPUSCULAR HEMOGLOBIN CONC (BEAKER) (test 35.2 GM/DL 32.0-36.0 afrs=523) RED CELL DISTRIBUTION WIDTH (BEAKER) (test 14.6 % 10.3-14.2 jgkn=472) PLATELET COUNT (BEAKER) (test egzv=745) 124 K/CU MM 150-430 MEAN PLATELET VOLUME (BEAKER) (test tqyv=200) 7.8 fL 6.5-10.5 NUCLEATED RED BLOOD CELLS (BEAKER) (test 0 /100 WBC 0-0 sbtp=502) 0.000.550.000.000.680.000.000.000.00(MANUAL DIFFERENTIAL)2016-09-23 14:50:00 Test Item Value Reference Range Comments NEUTROPHILS - REL (DIFF) (BEAKER) (test 86 % txjf=3467) LYMPHOCYTES - REL (DIFF) (BEAKER) (test 1 % kyma=4260) MONOCYTES - REL (DIFF) (BEAKER) (test cvwt=1203) 1 % BANDS - REL (DIFF) (BEAKER) (test woig=6251) 11 % 0-10 ATYPICAL LYMPHOCYTE - REL (DIFF) (BEAKER) (test 1 % 0-0 cydl=698) NEUTROPHILS - ABS (DIFF) (BEAKER) (test 27.18 K/ L 1.80-8.00 nlbl=8810) LYMPHOCYTES - ABS (DIFF) (BEAKER) (test 0.32 K/ L 1.48-4.50 sbwe=5615) MONOCYTES - ABS (DIFF) (BEAKER) (test jsoa=7882) 0.32 K/ L 0.00-1.30 BANDS-ABS (DIFF) (BEAKER) (test mqak=9503) 3.5 K/ L 0.0-0.8 ATYPICAL LYMPHOCYTES - ABS (DIFF) (BEAKER) (test 0.32 K/ L 0.00-0.00 jder=918) TOTAL COUNTED (BEAKER) (test npyh=4282) 100 BANDS + SEGMENTED NEUTROPHILS (BEAKER) (test 30.65 hywj=5783) WBC MORPHOLOGY (BEAKER) (test mxmo=747) Normal PLT MORPHOLOGY (BEAKER) (test gneq=208) Normal RBC MORPHOLOGY (BEAKER) (test jhpe=071) Normal [id number] 13:33:00 Test Item Value Reference Range Comments FIBRINOGEN LEVEL (BEAKER) (test skic=911) 204 mg/dl 225-434 [id number] 13:33:00 Test Item Value Reference Range Comments PARTIAL THROMBOPLASTIN TIME (BEAKER) (test 37.7 seconds 22.5-36.0 lmwp=335) PROTHROMBIN [id number] 13:32:00 Test Item Value Reference Range Comments PROTIME (BEAKER) (test cgks=551) 20.5 seconds 11.7-14.7 INR (BEAKER) (test ynoo=492) 1.8 <=5.9 RECOMMENDED COUMADIN/WARFARIN INR THERAPY RANGESSTANDARD DOSE: 2.0 - 3.0 Includes: PROPHYLAXIS forvenous thrombosis, systemic embolization; TREATMENT for venous thrombosis and/or pulmonary embolus.HIGH RISK: Target INR is 2.5-3.5 for patients with mechanical heart valves.CALCIUM, [id number] 13:15:00 Test Item Value Reference Range Comments CALCIUM IONIZED (BEAKER) (test twpg=433) 1.32 mmol/L 1.12-1.27 PH, BLOOD (BEAKER) (test cele=5439) 7.42 [id number] 13:13:00 Test Item Value Reference Range Comments MAGNESIUM (BEAKER) (test rvbg=375) 2.7 mg/dL 1.6-2.6 LACTIC ACID, ARTERIAL, WHOLE [id number] 13:12:00 Test Item Value Reference Range Comments LACTATE BLOOD ARTERIAL (2) (BEAKER) (test 1.7 mmol/L 0.5-2.2 jvpy=1686) Effective 10/24/2015: Units/Reference Range ChangeNew: 0.5-2.2 mmol/L Previous: 5 -20 mg/dLBLOOD GAS, [id number] 13:08:00 Test Item Value Reference Range Comments PH ARTERIAL (BEAKER) (test upju=891) 7.45 7.35-7.45 PCO2 ARTERIAL (BEAKER) (test upkc=614) 42 mmHg 35-45 PO2 ARTERIAL (BEAKER) (test fyph=249) 97 mmHg 80-90 O2 SATURATION ARTERIAL (BEAKER) (test uylt=326) 98.0 % 96.0-97.0 HCO3 ARTERIAL (BEAKER) (test jfdx=595) 29 mmol/L 21-29 BASE EXCESS ARTERIAL (BEAKER) (test ujsv=645) 3.6 mmol/L -2.0-3.0 PATIENT TEMPERATURE (BEAKER) (test slhm=6350) 34.9 C FIO2 (BEAKER) (test mazs=6194) 60.0 % SODIUM NA-STAT [id number] 13:08:00 Test Item Value Reference Range Comments SODIUM (BEAKER) (test chcl=793) 133 meq/L 135-148 POTASSIUM-STAT [id number] 13:08:00 Test Item Value Reference Range Comments POTASSIUM (BEAKER) (test sbmp=588) 3.1 meq/L 3.6-5.5 GLUCOSE-STAT [id number] 13:08:00 Test Item Value Reference Range Comments GLUCOSE RANDOM (BEAKER) (test wspw=505) 139 mg/dL 70-110 OXYGEN SATURATION, [id number] 13:05:00 Test Item Value Reference Range Comments O2 SATURATION (MEASURED) (BEAKER) (test lpck=0535) 76.5 % [id number] 12:00:00 Test Item Value Reference Range Comments FIBRINOGEN LEVEL (BEAKER) (test sdyi=566) 118 mg/dl 225-434 PLATELET [id number] 11:59:00 Test Item Value Reference Range Comments PLATELET COUNT (BEAKER) (test ddao=432) 129 K/CU MM 150-430 [id number] 11:55:00 Test Item Value Reference Range Comments PARTIAL THROMBOPLASTIN TIME (BEAKER) (test 47.7 seconds 22.5-36.0 jcro=411) CALCIUM, [id number] 11:54:00 Test Item Value Reference Range Comments CALCIUM IONIZED (BEAKER) (test nkrm=473) 1.13 mmol/L 1.12-1.27 PH, BLOOD (BEAKER) (test avsw=9156) 7.44 PROTHROMBIN [id number] 11:54:00 Test Item Value Reference Range Comments PROTIME (BEAKER) (test lfrg=941) 26.0 seconds 11.7-14.7 INR (BEAKER) (test biuo=895) 2.4 <=5.9 RECOMMENDED COUMADIN/WARFARIN INR THERAPY RANGESSTANDARD DOSE: 2.0 - 3.0 Includes: PROPHYLAXIS forvenous thrombosis, systemic embolization; TREATMENT for venous thrombosis and/or pulmonary embolus.HIGH RISK: Target INR is 2.5-3.5 for patients with mechanical heart valves.BLOOD GAS, [id number] 11:53:00 Test Item Value Reference Range Comments PH ARTERIAL (BEAKER) (test mkyg=079) 7.45 7.35-7.45 PCO2 ARTERIAL (BEAKER) (test jrqk=849) 40 mmHg 35-45 PO2 ARTERIAL (BEAKER) (test tnae=358) 263 mmHg 80-90 O2 SATURATION ARTERIAL (BEAKER) (test menw=453) 99.6 % 96.0-97.0 HCO3 ARTERIAL (BEAKER) (test uapk=646) 28 mmol/L 21-29 BASE EXCESS ARTERIAL (BEAKER) (test kquc=435) 3.2 mmol/L -2.0-3.0 PATIENT TEMPERATURE (BEAKER) (test seer=7534) 36.0 C FIO2 (BEAKER) (test okvh=0799) 100.0 % GLUCOSE-STAT [id number] 11:53:00 Test Item Value Reference Range Comments GLUCOSE RANDOM (BEAKER) (test oers=500) 158 mg/dL 70-110 POTASSIUM-STAT [id number] 11:53:00 Test Item Value Reference Range Comments POTASSIUM (BEAKER) (test xcte=900) 3.0 meq/L 3.6-5.5 HGB/HCT (H&H) - STAT [id number] 11:53:00 Test Item Value Reference Range Comments HEMOGLOBIN (BEAKER) (test qwws=322) 8.6 g/dL 13.0-16.8 HEMATOCRIT (BEAKER) (test crbu=278) 25.0 % 40.0-50.0 SODIUM NA-STAT [id number] 11:52:00 Test Item Value Reference Range Comments SODIUM (BEAKER) (test adqt=009) 135 meq/L 135-148 BLOOD GAS, [id number] 11:26:00 Test Item Value Reference Range Comments PH ARTERIAL (BEAKER) (test jxjd=807) 7.37 7.35-7.45 PCO2 ARTERIAL (BEAKER) (test ytor=686) 48 mmHg 35-45 PO2 ARTERIAL (BEAKER) (test dzxo=627) 76 mmHg 80-90 O2 SATURATION ARTERIAL (BEAKER) (test sglt=627) 95.5 % 96.0-97.0 HCO3 ARTERIAL (BEAKER) (test mvjf=874) 27 mmol/L 21-29 BASE EXCESS ARTERIAL (BEAKER) (test xsko=180) 0.9 mmol/L -2.0-3.0 PATIENT TEMPERATURE (BEAKER) (test qpjk=3284) 35.6 C FIO2 (BEAKER) (test nxze=6659) 100.0 % SODIUM NA-STAT [id number] 11:26:00 Test Item Value Reference Range Comments SODIUM (BEAKER) (test pvvp=759) 133 meq/L 135-148 POTASSIUM-STAT [id number] 11:26:00 Test Item Value Reference Range Comments POTASSIUM (BEAKER) (test nqlf=027) 3.1 meq/L 3.6-5.5 GLUCOSE-STAT [id number] 11:26:00 Test Item Value Reference Range Comments GLUCOSE RANDOM (BEAKER) (test lpxp=111) 158 mg/dL 70-110 HGB/HCT (H&H) - STAT [id number] 11:26:00 Test Item Value Reference Range Comments HEMOGLOBIN (BEAKER) (test sjes=676) 8.3 g/dL 13.0-16.8 HEMATOCRIT (BEAKER) (test fyeh=684) 24.0 % 40.0-50.0 CALCIUM, [id number] 11:26:00 Test Item Value Reference Range Comments CALCIUM IONIZED (BEAKER) (test jnhm=674) 0.86 mmol/L 1.12-1.27 PH, BLOOD (BEAKER) (test swtp=2533) 7.35 [id number] 11:01:00 Test Item Value Reference Range Comments FIBRINOGEN LEVEL (BEAKER) (test wizr=516) 99 mg/dl 225-434 PROTHROMBIN [id number] 10:50:00 Test Item Value Reference Range Comments PROTIME (BEAKER) (test getq=900) 46.0 seconds 11.7-14.7 INR (BEAKER) (test yklq=530) 4.9 <=5.9 RECOMMENDED COUMADIN/WARFARIN INR THERAPY RANGESSTANDARD DOSE: 2.0 - 3.0 Includes: PROPHYLAXIS forvenous thrombosis, systemic embolization; TREATMENT for venous thrombosis and/or pulmonary embolus.HIGH RISK: Target INR is 2.5-3.5 for patients with mechanical heart valves.PLATELET [id number] 10:47:00 Test Item Value Reference Range Comments PLATELET COUNT (BEAKER) (test vbst=320) 104 K/CU MM 150-430 BLOOD GAS, [id number] 10:30:00 Test Item Value Reference Range Comments PH ARTERIAL (BEAKER) (test bntc=715) 7.53 7.35-7.45 PCO2 ARTERIAL (BEAKER) (test mkyd=058) 37 mmHg 35-45 PO2 ARTERIAL (BEAKER) (test uhqw=546) 256 mmHg 80-90 O2 SATURATION ARTERIAL (BEAKER) (test hdha=641) 99.7 % 96.0-97.0 HCO3 ARTERIAL (BEAKER) (test icit=344) 31 mmol/L 21-29 BASE EXCESS ARTERIAL (BEAKER) (test pram=582) 7.0 mmol/L -2.0-3.0 PATIENT TEMPERATURE (BEAKER) (test nyrn=0993) 33.4 C FIO2 (BEAKER) (test yyum=8310) 65.0 % SODIUM NA-STAT [id number] 10:30:00 Test Item Value Reference Range Comments SODIUM (BEAKER) (test ffjx=573) 131 meq/L 135-148 POTASSIUM-STAT [id number] 10:30:00 Test Item Value Reference Range Comments POTASSIUM (BEAKER) (test ylcz=686) 3.3 meq/L 3.6-5.5 GLUCOSE-STAT [id number] 10:30:00 Test Item Value Reference Range Comments GLUCOSE RANDOM (BEAKER) (test zhcw=214) 122 mg/dL 70-110 HGB/HCT (H&H) - STAT [id number] 10:30:00 Test Item Value Reference Range Comments HEMOGLOBIN (BEAKER) (test alxb=302) 9.8 g/dL 13.0-16.8 HEMATOCRIT (BEAKER) (test yocd=352) 29.0 % 40.0-50.0 GLUCOSE-STAT [id number] 09:54:00 Test Item Value Reference Range Comments GLUCOSE RANDOM (BEAKER) (test rchr=570) 114 mg/dL 70-110 SODIUM NA-STAT [id number] 09:54:00 Test Item Value Reference Range Comments SODIUM (BEAKER) (test mdxg=977) 134 meq/L 135-148 POTASSIUM-STAT [id number] 09:54:00 Test Item Value Reference Range Comments POTASSIUM (BEAKER) (test urlq=263) 3.2 meq/L 3.6-5.5 HGB/HCT (H&H) - STAT [id number] 09:54:00 Test Item Value Reference Range Comments HEMOGLOBIN (BEAKER) (test cifw=431) 10.2 g/dL 13.0-16.8 HEMATOCRIT (BEAKER) (test obok=471) 30.0 % 40.0-50.0 BLOOD GAS, [id number] 09:53:00 Test Item Value Reference Range Comments PH ARTERIAL (BEAKER) (test ewqx=367) 7.58 7.35-7.45 PCO2 ARTERIAL (BEAKER) (test zyue=779) 32 mmHg 35-45 PO2 ARTERIAL (BEAKER) (test oeus=051) 306 mmHg 80-90 O2 SATURATION ARTERIAL (BEAKER) (test rqbw=907) 99.8 % 96.0-97.0 HCO3 ARTERIAL (BEAKER) (test lmtl=115) 30 mmol/L 21-29 BASE EXCESS ARTERIAL (BEAKER) (test vkmx=531) 6.7 mmol/L -2.0-3.0 PATIENT TEMPERATURE (BEAKER) (test abds=0820) 33.4 C FIO2 (BEAKER) (test fbhg=1521) 70.0 % BLOOD GAS, [id number] 09:35:00 Test Item Value Reference Range Comments PH ARTERIAL (BEAKER) (test flot=913) 7.62 7.35-7.45 PCO2 ARTERIAL (BEAKER) (test xfse=396) 28 mmHg 35-45 PO2 ARTERIAL (BEAKER) (test zkki=429) 345 mmHg 80-90 O2 SATURATION ARTERIAL (BEAKER) (test ytzw=473) 99.8 % 96.0-97.0 HCO3 ARTERIAL (BEAKER) (test djlw=877) 29 mmol/L 21-29 BASE EXCESS ARTERIAL (BEAKER) (test sbnk=932) 6.6 mmol/L -2.0-3.0 PATIENT TEMPERATURE (BEAKER) (test nrgd=6344) 34.5 C FIO2 (BEAKER) (test fxml=0491) 80.0 % POTASSIUM-STAT [id number] 09:33:00 Test Item Value Reference Range Comments POTASSIUM (BEAKER) (test apsg=761) 3.2 meq/L 3.6-5.5 SODIUM NA-STAT [id number] 09:33:00 Test Item Value Reference Range Comments SODIUM (BEAKER) (test txwj=424) 131 meq/L 135-148 HGB/HCT (H&H) - STAT [id number] 09:33:00 Test Item Value Reference Range Comments HEMOGLOBIN (BEAKER) (test tzwe=074) 9.2 g/dL 13.0-16.8 HEMATOCRIT (BEAKER) (test dspz=524) 27.0 % 40.0-50.0 GLUCOSE-STAT [id number] 09:32:00 Test Item Value Reference Range Comments GLUCOSE RANDOM (BEAKER) (test wdrl=982) 92 mg/dL 70-110 CALCIUM, [id number] 08:33:00 Test Item Value Reference Range Comments CALCIUM IONIZED (BEAKER) (test hszg=650) 1.03 mmol/L 1.12-1.27 PH, BLOOD (BEAKER) (test tjts=1189) 7.54 GLUCOSE-STAT [id number] 08:32:00 Test Item Value Reference Range Comments GLUCOSE RANDOM (BEAKER) (test zlcj=487) 81 mg/dL 70-110 BLOOD GAS, [id number] 08:32:00 Test Item Value Reference Range Comments PH ARTERIAL (BEAKER) (test wqdf=069) 7.54 7.35-7.45 PCO2 ARTERIAL (BEAKER) (test dxcy=722) 39 mmHg 35-45 PO2 ARTERIAL (BEAKER) (test apzi=139) 113 mmHg 80-90 O2 SATURATION ARTERIAL (BEAKER) (test sbhj=154) 98.6 % 96.0-97.0 HCO3 ARTERIAL (BEAKER) (test qraw=827) 33 mmol/L 21-29 BASE EXCESS ARTERIAL (BEAKER) (test bvqi=541) 9.5 mmol/L -2.0-3.0 PATIENT TEMPERATURE (BEAKER) (test zzrk=9178) 37.0 C FIO2 (BEAKER) (test inhx=0407) 28.0 % SODIUM NA-STAT [id number] 08:32:00 Test Item Value Reference Range Comments SODIUM (BEAKER) (test ivjm=262) 133 meq/L 135-148 POTASSIUM-STAT [id number] 08:32:00 Test Item Value Reference Range Comments POTASSIUM (BEAKER) (test jipa=005) 2.9 meq/L 3.6-5.5 HGB/HCT (H&H) - STAT [id number] 08:32:00 Test Item Value Reference Range Comments HEMOGLOBIN (BEAKER) (test wcmk=182) 10.8 g/dL 13.0-16.8 HEMATOCRIT (BEAKER) (test thaq=175) 32.0 % 40.0-50.0 POCT-GLUCOSE [id number] 06:20:00 Test Item Value Reference Range Comments POC-GLUCOSE METER (BEAKER) 107 mg/dL 70-110 TESTED AT [facility] [address] [facility] (test ityy=5581) [facility] [address] BASIC METABOLIC [id number] 05:13:00 Test Item Value Reference Range Comments SODIUM (BEAKER) (test 134 meq/L 136-145 lxcd=504) POTASSIUM (BEAKER) (test 3.7 meq/L 3.5-5.1 vptg=468) CHLORIDE (BEAKER) (test 95 meq/L 98-107 fzns=561) CO2 (BEAKER) (test 30 meq/L 22-29 rgon=744) BLOOD UREA NITROGEN 45 mg/dL 7-21 (BEAKER) (test nbhy=476) CREATININE (BEAKER) (test 0.90 mg/dL 0.57-1.25 mvwk=433) GLUCOSE RANDOM (BEAKER) 97 mg/dL 70-105 (test kfdo=781) CALCIUM (BEAKER) (test 8.5 mg/dL 8.4-10.2 qnsb=628) EGFR (BEAKER) (test mL/min/1.73 sq m INSUFFICIENT CLINICAL DATA fwqg=3999) TO CALCULATE ESTIMATED GFR. [id number] 05:12:00 Test Item Value Reference Range Comments FIBRINOGEN LEVEL (BEAKER) (test vxcp=846) 116 mg/dl 225-434 HEPATIC FUNCTION [id number] 05:12:00 Test Item Value Reference Range Comments TOTAL PROTEIN (BEAKER) (test hyed=804) 6.7 gm/dL 6.0-8.3 ALBUMIN (BEAKER) (test eunr=3999) 3.6 g/dL 3.5-5.0 BILIRUBIN TOTAL (BEAKER) (test renk=750) 1.5 mg/dL 0.2-1.2 BILIRUBIN DIRECT (BEAKER) (test nnez=107) 0.8 mg/dL 0.1-0.5 ALKALINE PHOSPHATASE (BEAKER) (test jhsg=184) 85 U/L 40-150 AST (SGOT) (BEAKER) (test hfhk=183) 35 U/L 5-34 ALT (SGPT) (BEAKER) (test rknp=120) 28 U/L 6-55 [id number] 05:07:00 Test Item Value Reference Range Comments PARTIAL THROMBOPLASTIN TIME (BEAKER) (test 28.7 seconds 22.5-36.0 radp=661) PROTHROMBIN [id number] 05:06:00 Test Item Value Reference Range Comments PROTIME (BEAKER) (test kfss=301) 19.1 seconds 11.7-14.7 INR (BEAKER) (test kohm=102) 1.6 <=5.9 RECOMMENDED COUMADIN/WARFARIN INR THERAPY RANGESSTANDARD DOSE: 2.0 - 3.0 Includes: PROPHYLAXIS forvenous thrombosis, systemic embolization; TREATMENT for venous thrombosis and/or pulmonary embolus.HIGH RISK: Target INR is 2.5-3.5 for patients with mechanical heart valves.CBC W/PLT COUNT & AUTO [id number] 04:52:00 Test Item Value Reference Range Comments WHITE BLOOD CELL COUNT (BEAKER) (test ouea=739) 9.7 K/ L 4.0-10.0 RED BLOOD CELL COUNT (BEAKER) (test zkmm=049) 3.27 M/ L 4.20-5.80 HEMOGLOBIN (BEAKER) (test nbzk=024) 10.4 GM/DL 13.0-16.8 HEMATOCRIT (BEAKER) (test vugq=715) 31.5 % 40.0-50.0 MEAN CORPUSCULAR VOLUME (BEAKER) (test guyz=532) 96.3 fL 82.0-98.0 MEAN CORPUSCULAR HEMOGLOBIN (BEAKER) (test 31.7 pg 27.0-33.0 myei=523) MEAN CORPUSCULAR HEMOGLOBIN CONC (BEAKER) (test 32.9 GM/DL 32.0-36.0 wvds=239) RED CELL DISTRIBUTION WIDTH (BEAKER) (test 15.0 % 10.3-14.2 djuz=890) PLATELET COUNT (BEAKER) (test ypdf=307) 74 K/CU MM 150-430 MEAN PLATELET VOLUME (BEAKER) (test lnde=002) 8.9 fL 6.5-10.5 NUCLEATED RED BLOOD CELLS (BEAKER) (test 0 /100 WBC 0-0 dlpt=024) NEUTROPHILS RELATIVE PERCENT (BEAKER) (test 87 % anuj=443) LYMPHOCYTES RELATIVE PERCENT (BEAKER) (test 5 % qjmo=384) MONOCYTES RELATIVE PERCENT (BEAKER) (test 8 % vkwh=163) EOSINOPHILS RELATIVE PERCENT (BEAKER) (test 0 % myqv=606) BASOPHILS RELATIVE PERCENT (BEAKER) (test 1 % lilx=753) NEUTROPHILS ABSOLUTE COUNT (BEAKER) (test 8.37 K/ L 1.80-8.00 pqzt=140) LYMPHOCYTES ABSOLUTE COUNT (BEAKER) (test 0.44 K/ L 1.48-4.50 bxhb=988) MONOCYTES ABSOLUTE COUNT (BEAKER) (test dlhz=240) 0.73 K/ L 0.00-1.30 EOSINOPHILS ABSOLUTE COUNT (BEAKER) (test 0.01 K/ L 0.00-0.50 swks=719) BASOPHILS ABSOLUTE COUNT (BEAKER) (test rwdp=626) 0.11 K/ L 0.00-0.20 0.00POCT-GLUCOSE [id number] 21:29:00 Test Item Value Reference Range Comments POC-GLUCOSE METER (BEAKER) 202 mg/dL 70-110 TESTED AT [address] (test aaek=7079) [place] [address] URINALYSIS W/ [id number] 19:29:00 Test Item Value Reference Range Comments COLOR (BEAKER) (test byxm=338) Light Yellow CLARITY (BEAKER) (test ccon=507) Clear SPECIFIC GRAVITY UA (BEAKER) (test mzbb=502) 1.006 1.001-1.035 PH UA (BEAKER) (test amut=482) 6.5 5.0-8.0 PROTEIN UA (BEAKER) (test agbm=499) Negative Negative GLUCOSE UA (BEAKER) (test riqh=565) Negative Negative KETONES UA (BEAKER) (test fpor=748) Negative Negative BILIRUBIN UA (BEAKER) (test fuir=608) Negative Negative BLOOD UA (BEAKER) (test bmvs=201) Negative Negative NITRITE UA (BEAKER) (test lpao=866) Negative Negative LEUKOCYTE ESTERASE UA (BEAKER) (test xswr=134) Negative Negative UROBILINOGEN UA (BEAKER) (test euax=442) 0.2 mg/dL 0.2-1.0 RBC UA (BEAKER) (test vnbw=312) 0 /HPF WBC UA (BEAKER) (test ljxa=234) < /HPF SOURCE(BEAKER) (test ihqs=1310) Urine, Voided POCT-GLUCOSE [id number] 17:33:00 Test Item Value Reference Range Comments POC-GLUCOSE METER (BEAKER) 180 mg/dL 70-110 TESTED AT [address] (test ebxp=6548) [place] [address] BASIC METABOLIC [id number] 15:09:00 Test Item Value Reference Range Comments SODIUM (BEAKER) (test 137 meq/L 136-145 fmze=402) POTASSIUM (BEAKER) (test 3.7 meq/L 3.5-5.1 Specimen slightly kzlt=207) hemolyzed CHLORIDE (BEAKER) (test 93 meq/L 98-107 zufv=380) CO2 (BEAKER) (test 34 meq/L 22-29 fjnj=755) BLOOD UREA NITROGEN 45 mg/dL 7-21 (BEAKER) (test xveh=511) CREATININE (BEAKER) (test 1.10 mg/dL 0.57-1.25 Specimen slightly ckcg=978) hemolyzed GLUCOSE RANDOM (BEAKER) 109 mg/dL 70-105 (test dqdt=108) CALCIUM (BEAKER) (test 9.1 mg/dL 8.4-10.2 brpi=339) EGFR (BEAKER) (test mL/min/1.73 sq m INSUFFICIENT CLINICAL DATA cmgq=4747) TO CALCULATE ESTIMATED GFR. [id number] 15:07:00 Test Item Value Reference Range Comments MAGNESIUM (BEAKER) (test 2.3 mg/dL 1.6-2.6 Specimen slightly hemolyzed tcpr=827) POCT-GLUCOSE [id number] 12:13:00 Test Item Value Reference Range Comments POC-GLUCOSE METER (BEAKER) 116 mg/dL 70-110 TESTED AT [facility] [address] [facility] (test qtlg=1937) [facility] [address] BASIC METABOLIC [id number] 05:50:00 Test Item Value Reference Range Comments SODIUM (BEAKER) (test 134 meq/L 136-145 sqwp=463) POTASSIUM (BEAKER) (test 3.8 meq/L 3.5-5.1 manj=942) CHLORIDE (BEAKER) (test 95 meq/L 98-107 csuk=763) CO2 (BEAKER) (test 29 meq/L 22-29 svfw=967) BLOOD UREA NITROGEN 48 mg/dL 7-21 (BEAKER) (test tpkl=572) CREATININE (BEAKER) (test 1.02 mg/dL 0.57-1.25 jgqf=317) GLUCOSE RANDOM (BEAKER) 99 mg/dL 70-105 (test zwwe=514) CALCIUM (BEAKER) (test 8.4 mg/dL 8.4-10.2 gzkc=678) EGFR (BEAKER) (test mL/min/1.73 sq m INSUFFICIENT CLINICAL DATA cnok=2436) TO CALCULATE ESTIMATED GFR. LACTATE DEHYDROGENASE (LDH)2016-09-22 05:49:00 Test Item Value Reference Range Comments LACTATE DEHYDROGENASE (BEAKER) (test yirm=419) 220 U/L 125-220 HEPATIC FUNCTION [id number] 05:49:00 Test Item Value Reference Range Comments TOTAL PROTEIN (BEAKER) (test toyk=355) 6.8 gm/dL 6.0-8.3 ALBUMIN (BEAKER) (test zyou=0225) 3.7 g/dL 3.5-5.0 BILIRUBIN TOTAL (BEAKER) (test yeve=366) 1.3 mg/dL 0.2-1.2 BILIRUBIN DIRECT (BEAKER) (test glzy=824) 0.7 mg/dL 0.1-0.5 ALKALINE PHOSPHATASE (BEAKER) (test uoiq=109) 83 U/L 40-150 AST (SGOT) (BEAKER) (test byxf=553) 30 U/L 5-34 ALT (SGPT) (BEAKER) (test cbli=334) 25 U/L 6-55 [id number] 05:32:00 Test Item Value Reference Range Comments D-DIMER QUANTITATIVE (BEAKER) (test gshw=582) 5.86 MG/L FEU <0.50 Intended Use: The D-Dimer Assay can be used to aid in the diagnosis of Deep Vein Thrombosis (DVT) and Pulmonary Embolism Disease (PED).In patients with low pre-test probability, various studies concerning STA Liatest D-dimer test have reported that with a cutoff value of 0.50 MG/L FEU, the Negative Predictive Value (NPV) regarding the exclusion of thrombosis is within 95-100% range.[id number] 05:27:00 Test Item Value Reference Range Comments FIBRINOGEN LEVEL (BEAKER) (test hodb=263) 117 mg/dl 225-434 CBC W/PLT COUNT & AUTO [id number] 05:23:00 Test Item Value Reference Range Comments WHITE BLOOD CELL COUNT (BEAKER) (test dpmj=497) 8.9 K/ L 4.0-10.0 RED BLOOD CELL COUNT (BEAKER) (test rotz=261) 3.34 M/ L 4.20-5.80 HEMOGLOBIN (BEAKER) (test lwqo=744) 10.7 GM/DL 13.0-16.8 HEMATOCRIT (BEAKER) (test xcpj=497) 32.1 % 40.0-50.0 MEAN CORPUSCULAR VOLUME (BEAKER) (test nsxe=135) 96.2 fL 82.0-98.0 MEAN CORPUSCULAR HEMOGLOBIN (BEAKER) (test 32.0 pg 27.0-33.0 fgbk=437) MEAN CORPUSCULAR HEMOGLOBIN CONC (BEAKER) (test 33.3 GM/DL 32.0-36.0 ibmu=136) RED CELL DISTRIBUTION WIDTH (BEAKER) (test 15.1 % 10.3-14.2 dvay=131) PLATELET COUNT (BEAKER) (test fvxb=956) 85 K/CU MM 150-430 MEAN PLATELET VOLUME (BEAKER) (test kmhj=901) 8.4 fL 6.5-10.5 NUCLEATED RED BLOOD CELLS (BEAKER) (test 0 /100 WBC 0-0 cbqq=455) NEUTROPHILS RELATIVE PERCENT (BEAKER) (test 86 % vbut=620) LYMPHOCYTES RELATIVE PERCENT (BEAKER) (test 5 % owjd=404) MONOCYTES RELATIVE PERCENT (BEAKER) (test 8 % hyzm=617) EOSINOPHILS RELATIVE PERCENT (BEAKER) (test 0 % yvge=030) BASOPHILS RELATIVE PERCENT (BEAKER) (test 1 % rtly=268) NEUTROPHILS ABSOLUTE COUNT (BEAKER) (test 7.64 K/ L 1.80-8.00 fphq=458) LYMPHOCYTES ABSOLUTE COUNT (BEAKER) (test 0.45 K/ L 1.48-4.50 ypvk=459) MONOCYTES ABSOLUTE COUNT (BEAKER) (test frti=215) 0.70 K/ L 0.00-1.30 EOSINOPHILS ABSOLUTE COUNT (BEAKER) (test 0.01 K/ L 0.00-0.50 drku=465) BASOPHILS ABSOLUTE COUNT (BEAKER) (test lkir=474) 0.05 K/ L 0.00-0.20 0.00PT/[id number] 05:22:00 Test Item Value Reference Range Comments PROTIME (BEAKER) (test owep=292) 18.9 seconds 11.7-14.7 INR (BEAKER) (test pfow=954) 1.6 <=5.9 PARTIAL THROMBOPLASTIN TIME (BEAKER) (test 29.2 seconds 22.5-36.0 hvlc=964) RECOMMENDED COUMADIN/WARFARIN INR THERAPY RANGESSTANDARD DOSE: 2.0 - 3.0 Includes: PROPHYLAXIS forvenous thrombosis, systemic embolization; TREATMENT for venous thrombosis and/or pulmonary embolus.HIGH RISK: Target INR is 2.5-3.5 for patients with mechanical heart valves.THROMBIN [id number] 05:22:00 Test Item Value Reference Range Comments THROMBIN TIME (BEAKER) (test jcwo=110) 18.6 secs 13.8-20.0 PROTHROMBIN [id number] 05:21:00 Test Item Value Reference Range Comments PROTIME (BEAKER) (test pnjn=182) 18.9 seconds 11.7-14.7 INR (BEAKER) (test nuld=568) 1.6 <=5.9 RECOMMENDED COUMADIN/WARFARIN INR THERAPY RANGESSTANDARD DOSE: 2.0 - 3.0 Includes: PROPHYLAXIS forvenous thrombosis, systemic embolization; TREATMENT for venous thrombosis and/or pulmonary embolus.HIGH RISK: Target INR is 2.5-3.5 for patients with mechanical heart valves.POCT-GLUCOSE [id number] 05:20:00 Test Item Value Reference Range Comments POC-GLUCOSE METER (BEAKER) 97 mg/dL 70-110 TESTED AT [address] (test ejrj=1414) [place] [address] POCT-GLUCOSE [id number] 21:11:00 Test Item Value Reference Range Comments POC-GLUCOSE METER (BEAKER) 180 mg/dL 70-110 TESTED AT [address] (test andr=9568) [place] [id number] POCT-GLUCOSE [id number] 17:58:00 Test Item Value Reference Range Comments POC-GLUCOSE METER (BEAKER) 121 mg/dL 70-110 TESTED AT [address] (test bpjh=0969) [place] [address] POCT-GLUCOSE [id number] 13:45:00 Test Item Value Reference Range Comments POC-GLUCOSE METER (BEAKER) 111 mg/dL 70-110 TESTED AT [address] (test gpgx=8604) [facility] [address] BASIC METABOLIC [id number] 05:37:00 Test Item Value Reference Range Comments SODIUM (BEAKER) (test 137 meq/L 136-145 wdgq=227) POTASSIUM (BEAKER) (test 3.7 meq/L 3.5-5.1 nsnc=091) CHLORIDE (BEAKER) (test 97 meq/L 98-107 pnbg=858) CO2 (BEAKER) (test 31 meq/L 22-29 fwnp=061) BLOOD UREA NITROGEN 49 mg/dL 7-21 (BEAKER) (test hfyn=172) CREATININE (BEAKER) (test 0.92 mg/dL 0.57-1.25 axbe=580) GLUCOSE RANDOM (BEAKER) 105 mg/dL 70-105 (test jaql=852) CALCIUM (BEAKER) (test 8.4 mg/dL 8.4-10.2 eaec=147) EGFR (BEAKER) (test mL/min/1.73 sq m INSUFFICIENT CLINICAL DATA ocrl=9658) TO CALCULATE ESTIMATED GFR. BUN AND [id number] 05:37:00 Test Item Value Reference Range Comments BLOOD UREA NITROGEN 49 mg/dL 7-21 (BEAKER) (test ruvr=933) CREATININE (BEAKER) (test 0.92 mg/dL 0.57-1.25 udpg=882) EGFR (BEAKER) (test mL/min/1.73 sq m INSUFFICIENT CLINICAL DATA coqh=2419) TO CALCULATE ESTIMATED GFR. [id number] 05:28:00 Test Item Value Reference Range Comments MAGNESIUM (BEAKER) (test jywl=850) 2.2 mg/dL 1.6-2.6 HEPATIC FUNCTION [id number] 05:28:00 Test Item Value Reference Range Comments TOTAL PROTEIN (BEAKER) (test kzqi=095) 6.6 gm/dL 6.0-8.3 ALBUMIN (BEAKER) (test ncug=6138) 3.5 g/dL 3.5-5.0 BILIRUBIN TOTAL (BEAKER) (test sjdg=119) 1.3 mg/dL 0.2-1.2 BILIRUBIN DIRECT (BEAKER) (test kwar=311) 0.7 mg/dL 0.1-0.5 ALKALINE PHOSPHATASE (BEAKER) (test gsef=604) 82 U/L 40-150 AST (SGOT) (BEAKER) (test yrup=089) 30 U/L 5-34 ALT (SGPT) (BEAKER) (test kpim=991) 22 U/L 6-55 CBC W/PLT COUNT & AUTO [id number] 05:19:00 Test Item Value Reference Range Comments WHITE BLOOD CELL COUNT (BEAKER) (test nwbb=588) 7.8 K/ L 4.0-10.0 RED BLOOD CELL COUNT (BEAKER) (test lfxq=840) 3.35 M/ L 4.20-5.80 HEMOGLOBIN (BEAKER) (test ujbh=548) 10.5 GM/DL 13.0-16.8 HEMATOCRIT (BEAKER) (test uskg=828) 32.3 % 40.0-50.0 MEAN CORPUSCULAR VOLUME (BEAKER) (test yhgj=090) 96.6 fL 82.0-98.0 MEAN CORPUSCULAR HEMOGLOBIN (BEAKER) (test 31.4 pg 27.0-33.0 xhyi=056) MEAN CORPUSCULAR HEMOGLOBIN CONC (BEAKER) (test 32.6 GM/DL 32.0-36.0 wjbu=894) RED CELL DISTRIBUTION WIDTH (BEAKER) (test 14.2 % 10.3-14.2 hqab=769) PLATELET COUNT (BEAKER) (test bffx=811) 70 K/CU MM 150-430 MEAN PLATELET VOLUME (BEAKER) (test pdzi=659) 9.0 fL 6.5-10.5 NUCLEATED RED BLOOD CELLS (BEAKER) (test 0 /100 WBC 0-0 rtpp=722) NEUTROPHILS RELATIVE PERCENT (BEAKER) (test 85 % qcsr=432) LYMPHOCYTES RELATIVE PERCENT (BEAKER) (test 6 % jlzc=753) MONOCYTES RELATIVE PERCENT (BEAKER) (test 9 % tlqk=258) EOSINOPHILS RELATIVE PERCENT (BEAKER) (test 0 % ifer=290) BASOPHILS RELATIVE PERCENT (BEAKER) (test 0 % ytix=961) NEUTROPHILS ABSOLUTE COUNT (BEAKER) (test 6.62 K/ L 1.80-8.00 nluh=994) LYMPHOCYTES ABSOLUTE COUNT (BEAKER) (test 0.46 K/ L 1.48-4.50 mnmi=869) MONOCYTES ABSOLUTE COUNT (BEAKER) (test cufj=244) 0.68 K/ L 0.00-1.30 EOSINOPHILS ABSOLUTE COUNT (BEAKER) (test 0.01 K/ L 0.00-0.50 mhhd=619) BASOPHILS ABSOLUTE COUNT (BEAKER) (test mwaa=099) 0.03 K/ L 0.00-0.20 [id number] 05:11:00 Test Item Value Reference Range Comments FIBRINOGEN LEVEL (BEAKER) (test mgao=147) 111 mg/dl 225-434 PROTHROMBIN [id number] 05:05:00 Test Item Value Reference Range Comments PROTIME (BEAKER) (test sndv=586) 18.7 seconds 11.7-14.7 INR (BEAKER) (test npsy=811) 1.6 <=5.9 RECOMMENDED COUMADIN/WARFARIN INR THERAPY RANGESSTANDARD DOSE: 2.0 - 3.0 Includes: PROPHYLAXIS forvenous thrombosis, systemic embolization; TREATMENT for venous thrombosis and/or pulmonary embolus.HIGH RISK: Target INR is 2.5-3.5 for patients with mechanical heart valves.POCT-GLUCOSE [id number] 23:17:00 Test Item Value Reference Range Comments POC-GLUCOSE METER (BEAKER) 154 mg/dL 70-110 TESTED AT [address] (test wmvj=1110) [place] [address] POCT-GLUCOSE [id number] 18:07:00 Test Item Value Reference Range Comments POC-GLUCOSE METER (BEAKER) 172 mg/dL 70-110 TESTED AT [address] (test qoyd=5029) [place] [address] POCT-GLUCOSE [id number] 13:53:00 Test Item Value Reference Range Comments POC-GLUCOSE METER (BEAKER) 106 mg/dL 70-110 TESTED AT [address] (test rxcl=6035) [place] [address] POCT-GLUCOSE [id number] 10:31:00 Test Item Value Reference Range Comments POC-GLUCOSE METER (BEAKER) 129 mg/dL 70-110 TESTED AT [address] (test cuce=7179) [place] [id number] CBC W/PLT COUNT & AUTO [id number] 07:13:00 Test Item Value Reference Range Comments WHITE BLOOD CELL COUNT (BEAKER) (test wfpy=772) 7.3 K/ L 4.0-10.0 RED BLOOD CELL COUNT (BEAKER) (test cfnh=418) 3.32 M/ L 4.20-5.80 HEMOGLOBIN (BEAKER) (test jjih=082) 10.8 GM/DL 13.0-16.8 HEMATOCRIT (BEAKER) (test nsho=407) 32.3 % 40.0-50.0 MEAN CORPUSCULAR VOLUME (BEAKER) (test svjr=362) 97.4 fL 82.0-98.0 MEAN CORPUSCULAR HEMOGLOBIN (BEAKER) (test 32.5 pg 27.0-33.0 dqek=859) MEAN CORPUSCULAR HEMOGLOBIN CONC (BEAKER) (test 33.4 GM/DL 32.0-36.0 ejdm=355) RED CELL DISTRIBUTION WIDTH (BEAKER) (test 14.7 % 10.3-14.2 sycq=647) PLATELET COUNT (BEAKER) (test uqsv=266) 72 K/CU MM 150-430 MEAN PLATELET VOLUME (BEAKER) (test hzxe=658) 9.2 fL 6.5-10.5 NUCLEATED RED BLOOD CELLS (BEAKER) (test 0 /100 WBC 0-0 dzjw=451) NEUTROPHILS RELATIVE PERCENT (BEAKER) (test 81 % kcgl=184) LYMPHOCYTES RELATIVE PERCENT (BEAKER) (test 8 % tmhu=776) MONOCYTES RELATIVE PERCENT (BEAKER) (test 11 % rczs=593) EOSINOPHILS RELATIVE PERCENT (BEAKER) (test 0 % sxrp=826) BASOPHILS RELATIVE PERCENT (BEAKER) (test 0 % jgtv=434) NEUTROPHILS ABSOLUTE COUNT (BEAKER) (test 5.91 K/ L 1.80-8.00 vqjc=869) LYMPHOCYTES ABSOLUTE COUNT (BEAKER) (test 0.60 K/ L 1.48-4.50 cvxf=209) MONOCYTES ABSOLUTE COUNT (BEAKER) (test rsnt=732) 0.77 K/ L 0.00-1.30 EOSINOPHILS ABSOLUTE COUNT (BEAKER) (test 0.03 K/ L 0.00-0.50 mfbh=953) BASOPHILS ABSOLUTE COUNT (BEAKER) (test ntju=507) 0.02 K/ L 0.00-0.20 0.00BASIC METABOLIC [id number] 07:10:00 Test Item Value Reference Range Comments SODIUM (BEAKER) (test 136 meq/L 136-145 cklm=689) POTASSIUM (BEAKER) (test 3.7 meq/L 3.5-5.1 upqf=967) CHLORIDE (BEAKER) (test 96 meq/L 98-107 mqbx=010) CO2 (BEAKER) (test 30 meq/L 22-29 wivu=975) BLOOD UREA NITROGEN 52 mg/dL 7-21 (BEAKER) (test kyuo=020) CREATININE (BEAKER) (test 0.91 mg/dL 0.57-1.25 yxat=402) GLUCOSE RANDOM (BEAKER) 94 mg/dL 70-105 (test qtpb=835) CALCIUM (BEAKER) (test 8.6 mg/dL 8.4-10.2 ouiq=300) EGFR (BEAKER) (test mL/min/1.73 sq m INSUFFICIENT CLINICAL DATA pron=6541) TO CALCULATE ESTIMATED GFR. HEPATIC FUNCTION [id number] 07:09:00 Test Item Value Reference Range Comments TOTAL PROTEIN (BEAKER) (test naqm=279) 6.8 gm/dL 6.0-8.3 ALBUMIN (BEAKER) (test hikk=7337) 3.5 g/dL 3.5-5.0 BILIRUBIN TOTAL (BEAKER) (test kdnp=033) 1.3 mg/dL 0.2-1.2 BILIRUBIN DIRECT (BEAKER) (test isdz=248) 0.7 mg/dL 0.1-0.5 ALKALINE PHOSPHATASE (BEAKER) (test mzfc=953) 84 U/L 40-150 AST (SGOT) (BEAKER) (test syif=995) 31 U/L 5-34 ALT (SGPT) (BEAKER) (test vhbl=633) 23 U/L 6-55 [id number] 06:49:00 Test Item Value Reference Range Comments FIBRINOGEN LEVEL (BEAKER) (test iaqp=224) 108 mg/dl 225-434 PROTHROMBIN [id number] 06:43:00 Test Item Value Reference Range Comments PROTIME (BEAKER) (test nqgg=045) 18.5 seconds 11.7-14.7 INR (BEAKER) (test dhfl=558) 1.5 <=5.9 RECOMMENDED COUMADIN/WARFARIN INR THERAPY RANGESSTANDARD DOSE: 2.0 - 3.0 Includes: PROPHYLAXIS forvenous thrombosis, systemic embolization; TREATMENT for venous thrombosis and/or pulmonary embolus.HIGH RISK: Target INR is 2.5-3.5 for patients with mechanical heart valves.POCT-GLUCOSE [id number] 22:20:00 Test Item Value Reference Range Comments POC-GLUCOSE METER (BEAKER) 188 mg/dL 70-110 TESTED AT [facility] [address] [facility] (test iqaj=5559) [facility] [address] POCT-GLUCOSE [id number] 17:20:00 Test Item Value Reference Range Comments POC-GLUCOSE METER (BEAKER) 182 mg/dL 70-110 TESTED AT [facility] [address] [facility] (test jcij=0767) [facility] [address] CBC W/PLT COUNT & AUTO [id number] 14:51:00 Test Item Value Reference Range Comments WHITE BLOOD CELL COUNT (BEAKER) (test udzk=989) 7.6 K/ L 4.0-10.0 RED BLOOD CELL COUNT (BEAKER) (test satx=239) 3.30 M/ L 4.20-5.80 HEMOGLOBIN (BEAKER) (test pzwu=124) 10.4 GM/DL 13.0-16.8 HEMATOCRIT (BEAKER) (test ruou=422) 31.9 % 40.0-50.0 MEAN CORPUSCULAR VOLUME (BEAKER) (test nzri=416) 96.9 fL 82.0-98.0 MEAN CORPUSCULAR HEMOGLOBIN (BEAKER) (test 31.5 pg 27.0-33.0 ndxv=221) MEAN CORPUSCULAR HEMOGLOBIN CONC (BEAKER) (test 32.5 GM/DL 32.0-36.0 nggk=161) RED CELL DISTRIBUTION WIDTH (BEAKER) (test 13.9 % 10.3-14.2 nfja=369) PLATELET COUNT (BEAKER) (test qcby=184) 56 K/CU MM 150-430 MEAN PLATELET VOLUME (BEAKER) (test wmfi=582) 9.4 fL 6.5-10.5 NUCLEATED RED BLOOD CELLS (BEAKER) (test 0 /100 WBC 0-0 cvzb=850) NEUTROPHILS RELATIVE PERCENT (BEAKER) (test 83 % uxne=314) LYMPHOCYTES RELATIVE PERCENT (BEAKER) (test 7 % yhwj=737) MONOCYTES RELATIVE PERCENT (BEAKER) (test 10 % fzzx=831) EOSINOPHILS RELATIVE PERCENT (BEAKER) (test 0 % iokw=618) BASOPHILS RELATIVE PERCENT (BEAKER) (test 0 % dpwj=144) NEUTROPHILS ABSOLUTE COUNT (BEAKER) (test 6.31 K/ L 1.80-8.00 itkj=536) LYMPHOCYTES ABSOLUTE COUNT (BEAKER) (test 0.50 K/ L 1.48-4.50 mojo=488) MONOCYTES ABSOLUTE COUNT (BEAKER) (test iuqd=309) 0.77 K/ L 0.00-1.30 EOSINOPHILS ABSOLUTE COUNT (BEAKER) (test 0.01 K/ L 0.00-0.50 jbog=742) BASOPHILS ABSOLUTE COUNT (BEAKER) (test ufba=608) 0.00 K/ L 0.00-0.20 0.00(MANUAL DIFFERENTIAL)[id number] 14:51:00 Test Item Value Reference Range Comments TOTAL COUNTED (BEAKER) (test mnmf=9328) WBC MORPHOLOGY (BEAKER) (test mqyp=376) Normal PLT MORPHOLOGY (BEAKER) (test rwij=724) Normal RBC MORPHOLOGY (BEAKER) (test bami=572) Normal POCT-GLUCOSE [id number] 12:28:00 Test Item Value Reference Range Comments POC-GLUCOSE METER (BEAKER) 132 mg/dL 70-110 TESTED AT [address] (test qwmv=6593) [place] [id number] POCT-GLUCOSE [id number] 08:32:00 Test Item Value Reference Range Comments POC-GLUCOSE METER (BEAKER) 91 mg/dL 70-110 TESTED AT [address] (test njom=0951) [place] [address] [id number] 07:04:00 Test Item Value Reference Range Comments FIBRINOGEN LEVEL (BEAKER) (test enum=908) 113 mg/dl 225-434 BASIC METABOLIC [id number] 05:26:00 Test Item Value Reference Range Comments SODIUM (BEAKER) (test 137 meq/L 136-145 apvx=953) POTASSIUM (BEAKER) (test 3.4 meq/L 3.5-5.1 raej=524) CHLORIDE (BEAKER) (test 96 meq/L 98-107 zbnj=946) CO2 (BEAKER) (test 31 meq/L 22-29 jldn=704) BLOOD UREA NITROGEN 54 mg/dL 7-21 (BEAKER) (test itbj=471) CREATININE (BEAKER) (test 0.98 mg/dL 0.57-1.25 fqhb=271) GLUCOSE RANDOM (BEAKER) 105 mg/dL 70-105 (test pgau=481) CALCIUM (BEAKER) (test 8.6 mg/dL 8.4-10.2 rvkh=278) EGFR (BEAKER) (test mL/min/1.73 sq m INSUFFICIENT CLINICAL DATA yguc=0772) TO CALCULATE ESTIMATED GFR. PROTHROMBIN [id number] 05:23:00 Test Item Value Reference Range Comments PROTIME (BEAKER) (test zawr=966) 19.5 seconds 11.7-14.7 INR (BEAKER) (test xtzd=731) 1.7 <=5.9 RECOMMENDED COUMADIN/WARFARIN INR THERAPY RANGESSTANDARD DOSE: 2.0 - 3.0 Includes: PROPHYLAXIS forvenous thrombosis, systemic embolization; TREATMENT for venous thrombosis and/or pulmonary embolus.HIGH RISK: Target INR is 2.5-3.5 for patients with mechanical heart valves.HEPATIC FUNCTION [id number] 05:22 :00 Test Item Value Reference Range Comments TOTAL PROTEIN (BEAKER) (test uotg=467) 6.8 gm/dL 6.0-8.3 ALBUMIN (BEAKER) (test ixqr=6666) 3.6 g/dL 3.5-5.0 BILIRUBIN TOTAL (BEAKER) (test yhix=571) 1.1 mg/dL 0.2-1.2 BILIRUBIN DIRECT (BEAKER) (test hbsg=147) 0.7 mg/dL 0.1-0.5 ALKALINE PHOSPHATASE (BEAKER) (test yawq=852) 87 U/L 40-150 AST (SGOT) (BEAKER) (test npne=826) 29 U/L 5-34 ALT (SGPT) (BEAKER) (test evfv=943) 21 U/L 6-55 POCT-GLUCOSE [id number] 22:46:00 Test Item Value Reference Range Comments POC-GLUCOSE METER (BEAKER) 130 mg/dL 70-110 TESTED AT [facility] [address] [facility] (test jpny=7609) [facility] [address] POCT-GLUCOSE [id number] 16:56:00 Test Item Value Reference Range Comments POC-GLUCOSE METER (BEAKER) 164 mg/dL 70-110 TESTED AT [place] [id number] [facility] (test uxln=4448) [facility] [address] RESPIRATORY PANEL [id number] 15:39:00 Test Item Value Reference Range Comments HUMAN METAPNEUMOVIRUS (BEAKER) (test Not detected Not detected, Inconclusive rstd=8502) RHINOVIRUS (BEAKER) (test uste=9350) Not detected Not detected, Inconclusive INFLUENZA A (BEAKER) (test Not detected Not detected, Inconclusive blsc=0273) INFLUENZA A SUBTYPE H1 (BEAKER) Not detected Not detected, Inconclusive (test yuqi=7726) INFLUENZA A SUBTYPE H3 (BEAKER) Not detected Not detected, Inconclusive (test jvzw=0455) INFLUENZA A SUBTYPE H1-2009 (BEAKER) Not detected Not detected, Inconclusive (test qnuj=9563) INFLUENZA B (BEAKER) (test Not detected Not detected, Inconclusive dfal=7611) RESPIRATORY SYNCYTIAL VIRUS (BEAKER) Not detected Not detected, Inconclusive (test vrve=7745) PARAINFLUENZA VIRUS 1 (BEAKER) (test Not detected Not detected, Inconclusive mqsm=5972) PARAINFLUENZA VIRUS 2 (BEAKER) (test Not detected Not detected, Inconclusive evig=2173) PARAINFLUENZA VIRUS 3 (BEAKER) (test Not detected Not detected, Inconclusive rkda=4837) PARAINFLUENZA VIRUS 4 (BEAKER) (test Not detected Not detected, Inconclusive tfpu=9571) ADENOVIRUS (BEAKER) (test nfhp=8324) Not detected Not detected, Inconclusive CORONAVIRUS 229E (BEAKER) (test Not detected Not detected, Inconclusive geei=1263) CORONAVIRUS HKU1 (BEAKER) (test Not detected Not detected, Inconclusive ksga=2145) CORONAVIRUS NL63 (BEAKER) (test Not detected Not detected, Inconclusive eext=7522) CORONAVIRUS OC43 (BEAKER) (test Not detected Not detected, Inconclusive xbrq=3531) BORDETELLA PERTUSSIS (BEAKER) (test Not detected Not detected, Inconclusive uotl=0651) CHLAMYDOPHILA PNEUMONIAE (BEAKER) Not detected Not detected, Inconclusive (test lzgl=2265) MYCOPLASMA PNEUMONIAE (BEAKER) (test Not detected Not detected, Inconclusive gxuf=5619) POCT-GLUCOSE [id number] 12:22:00 Test Item Value Reference Range Comments POC-GLUCOSE METER (BEAKER) 113 mg/dL 70-110 TESTED AT [facility] [address] [facility] (test khra=9850) [facility] [address] POCT-GLUCOSE [id number] 08:24:00 Test Item Value Reference Range Comments POC-GLUCOSE METER (BEAKER) 96 mg/dL 70-110 TESTED AT [facility] [address] [facility] (test qdqa=1005) [facility] [address] BASIC METABOLIC [id number] 07:27:00 Test Item Value Reference Range Comments SODIUM (BEAKER) (test 140 meq/L 136-145 rqtx=419) POTASSIUM (BEAKER) (test 3.4 meq/L 3.5-5.1 jeli=286) CHLORIDE (BEAKER) (test 95 meq/L 98-107 fsmy=982) CO2 (BEAKER) (test 34 meq/L 22-29 szhu=224) BLOOD UREA NITROGEN 54 mg/dL 7-21 (BEAKER) (test xuxk=832) CREATININE (BEAKER) (test 1.23 mg/dL 0.57-1.25 puin=469) GLUCOSE RANDOM (BEAKER) 98 mg/dL 70-105 (test axly=458) CALCIUM (BEAKER) (test 9.3 mg/dL 8.4-10.2 tmgn=688) EGFR (BEAKER) (test mL/min/1.73 sq m INSUFFICIENT CLINICAL DATA hzze=5314) TO CALCULATE ESTIMATED GFR. BASIC METABOLIC [id number] 07:21:00 Test Item Value Reference Range Comments SODIUM (BEAKER) (test 139 meq/L 136-145 fvln=482) POTASSIUM (BEAKER) (test 3.4 meq/L 3.5-5.1 Specimen slightly ioke=185) hemolyzed CHLORIDE (BEAKER) (test 95 meq/L 98-107 lndo=132) CO2 (BEAKER) (test 35 meq/L 22-29 kleg=715) BLOOD UREA NITROGEN 55 mg/dL 7-21 (BEAKER) (test stxv=730) CREATININE (BEAKER) (test 1.17 mg/dL 0.57-1.25 Specimen slightly dufq=939) hemolyzed GLUCOSE RANDOM (BEAKER) 97 mg/dL 70-105 (test jvmo=439) CALCIUM (BEAKER) (test 9.2 mg/dL 8.4-10.2 tujl=701) EGFR (BEAKER) (test mL/min/1.73 sq m INSUFFICIENT CLINICAL DATA exsm=0000) TO CALCULATE ESTIMATED GFR. HEPATIC FUNCTION [id number] 07:15:00 Test Item Value Reference Range Comments TOTAL PROTEIN (BEAKER) (test 8.0 gm/dL 6.0-8.3 Specimen slightly hemolyzed odmk=351) ALBUMIN (BEAKER) (test 4.2 g/dL 3.5-5.0 Specimen slightly hemolyzed wyjv=4665) BILIRUBIN TOTAL (BEAKER) (test 1.3 mg/dL 0.2-1.2 Specimen slightly hemolyzed dpth=807) BILIRUBIN DIRECT (BEAKER) (test 0.7 mg/dL 0.1-0.5 Specimen slightly hemolyzed bbwx=229) ALKALINE PHOSPHATASE (BEAKER) 99 U/L 40-150 (test vmfb=088) AST (SGOT) (BEAKER) (test 35 U/L 5-34 Specimen slightly hemolyzed fbwg=824) ALT (SGPT) (BEAKER) (test 24 U/L 6-55 Specimen slightly hemolyzed prys=850) [id number] 07:08:00 Test Item Value Reference Range Comments FIBRINOGEN LEVEL (BEAKER) (test abmk=939) 124 mg/dl 225-434 CBC W/PLT COUNT & AUTO [id number] 07:06:00 Test Item Value Reference Range Comments WHITE BLOOD CELL COUNT (BEAKER) (test gotx=233) 8.4 K/ L 4.0-10.0 RED BLOOD CELL COUNT (BEAKER) (test ongw=405) 3.60 M/ L 4.20-5.80 HEMOGLOBIN (BEAKER) (test sqye=546) 11.5 GM/DL 13.0-16.8 HEMATOCRIT (BEAKER) (test cmau=015) 35.8 % 40.0-50.0 MEAN CORPUSCULAR VOLUME (BEAKER) (test ixzk=677) 99.4 fL 82.0-98.0 MEAN CORPUSCULAR HEMOGLOBIN (BEAKER) (test 32.0 pg 27.0-33.0 nnco=620) MEAN CORPUSCULAR HEMOGLOBIN CONC (BEAKER) (test 32.2 GM/DL 32.0-36.0 pmbz=620) RED CELL DISTRIBUTION WIDTH (BEAKER) (test 14.5 % 10.3-14.2 hnck=165) PLATELET COUNT (BEAKER) (test jecc=041) 57 K/CU MM 150-430 MEAN PLATELET VOLUME (BEAKER) (test qnrs=547) 10.0 fL 6.5-10.5 NUCLEATED RED BLOOD CELLS (BEAKER) (test 0 /100 WBC 0-0 wpvr=844) NEUTROPHILS RELATIVE PERCENT (BEAKER) (test 87 % jwhc=311) LYMPHOCYTES RELATIVE PERCENT (BEAKER) (test 4 % dnff=037) MONOCYTES RELATIVE PERCENT (BEAKER) (test 9 % eabn=405) EOSINOPHILS RELATIVE PERCENT (BEAKER) (test 0 % ddlz=511) BASOPHILS RELATIVE PERCENT (BEAKER) (test 0 % axcm=259) NEUTROPHILS ABSOLUTE COUNT (BEAKER) (test 7.25 K/ L 1.80-8.00 eznt=743) LYMPHOCYTES ABSOLUTE COUNT (BEAKER) (test 0.34 K/ L 1.48-4.50 zcvk=729) MONOCYTES ABSOLUTE COUNT (BEAKER) (test mgxt=597) 0.77 K/ L 0.00-1.30 EOSINOPHILS ABSOLUTE COUNT (BEAKER) (test 0.01 K/ L 0.00-0.50 axso=499) BASOPHILS ABSOLUTE COUNT (BEAKER) (test cwnx=874) 0.00 K/ L 0.00-0.20 PROTHROMBIN [id number] 07:03:00 Test Item Value Reference Range Comments PROTIME (BEAKER) (test jtlg=996) 18.6 seconds 11.7-14.7 INR (BEAKER) (test speo=972) 1.6 <=5.9 RECOMMENDED COUMADIN/WARFARIN INR THERAPY RANGESSTANDARD DOSE: 2.0 - 3.0 Includes: PROPHYLAXIS forvenous thrombosis, systemic embolization; TREATMENT for venous thrombosis and/or pulmonary embolus.HIGH RISK: Target INR is 2.5-3.5 for patients with mechanical heart valves.POCT-GLUCOSE [id number] 21:23:00 Test Item Value Reference Range Comments POC-GLUCOSE METER (BEAKER) 197 mg/dL 70-110 TESTED AT [address] (test pvkp=3524) [facility] [address] POCT-GLUCOSE [id number] 18:30:00 Test Item Value Reference Range Comments POC-GLUCOSE METER (BEAKER) 147 mg/dL 70-110 TESTED AT [address] (test szjg=4965) [facility] [address] POCT-GLUCOSE [id number] 13:46:00 Test Item Value Reference Range Comments POC-GLUCOSE METER (BEAKER) 113 mg/dL 70-110 TESTED AT [facility] [address] [facility] (test aujc=5357) [facility] [address] POCT-GLUCOSE [id number] 07:49:00 Test Item Value Reference Range Comments POC-GLUCOSE METER (BEAKER) 134 mg/dL 70-110 TESTED AT [facility] [address] [facility] (test oycg=0719) [facility] [address] PERIPHERAL BLOOD SMEAR - HOLD [id number] 06:35:00 Test Item Value Reference Range Comments PERIPHERAL SMEAR SAVE (BEAKER) (test imvv=5030) saved BASIC METABOLIC [id number] 05:44:00 Test Item Value Reference Range Comments SODIUM (BEAKER) (test 141 meq/L 136-145 jyfq=084) POTASSIUM (BEAKER) (test 3.6 meq/L 3.5-5.1 xuvq=929) CHLORIDE (BEAKER) (test 99 meq/L 98-107 defd=644) CO2 (BEAKER) (test 31 meq/L 22-29 sdmh=349) BLOOD UREA NITROGEN 59 mg/dL 7-21 (BEAKER) (test dogw=076) CREATININE (BEAKER) (test 1.09 mg/dL 0.57-1.25 pvck=722) GLUCOSE RANDOM (BEAKER) 133 mg/dL 70-105 (test tiys=031) CALCIUM (BEAKER) (test 8.6 mg/dL 8.4-10.2 ehjp=104) EGFR (BEAKER) (test mL/min/1.73 sq m INSUFFICIENT CLINICAL DATA vdlg=5225) TO CALCULATE ESTIMATED GFR. CBC W/PLT COUNT & AUTO [id number] 05:41:00 Test Item Value Reference Range Comments WHITE BLOOD CELL COUNT (BEAKER) (test egcc=710) 5.8 K/ L 4.0-10.0 RED BLOOD CELL COUNT (BEAKER) (test yafn=726) 3.13 M/ L 4.20-5.80 HEMOGLOBIN (BEAKER) (test ksgu=049) 9.8 GM/DL 13.0-16.8 HEMATOCRIT (BEAKER) (test iocs=257) 30.7 % 40.0-50.0 MEAN CORPUSCULAR VOLUME (BEAKER) (test ljjw=387) 98.4 fL 82.0-98.0 MEAN CORPUSCULAR HEMOGLOBIN (BEAKER) (test 31.3 pg 27.0-33.0 mjvl=384) MEAN CORPUSCULAR HEMOGLOBIN CONC (BEAKER) (test 31.9 GM/DL 32.0-36.0 oicz=975) RED CELL DISTRIBUTION WIDTH (BEAKER) (test 13.7 % 10.3-14.2 amlv=906) PLATELET COUNT (BEAKER) (test wawd=212) 52 K/CU MM 150-430 MEAN PLATELET VOLUME (BEAKER) (test mpux=806) 9.1 fL 6.5-10.5 NUCLEATED RED BLOOD CELLS (BEAKER) (test 0 /100 WBC 0-0 odav=608) NEUTROPHILS RELATIVE PERCENT (BEAKER) (test 92 % dzqf=801) LYMPHOCYTES RELATIVE PERCENT (BEAKER) (test 3 % vwsm=241) MONOCYTES RELATIVE PERCENT (BEAKER) (test 4 % kdax=344) EOSINOPHILS RELATIVE PERCENT (BEAKER) (test 0 % bcfd=392) BASOPHILS RELATIVE PERCENT (BEAKER) (test 0 % sulx=430) NEUTROPHILS ABSOLUTE COUNT (BEAKER) (test 5.33 K/ L 1.80-8.00 ssbq=208) LYMPHOCYTES ABSOLUTE COUNT (BEAKER) (test 0.19 K/ L 1.48-4.50 oggw=053) MONOCYTES ABSOLUTE COUNT (BEAKER) (test qbfj=626) 0.24 K/ L 0.00-1.30 EOSINOPHILS ABSOLUTE COUNT (BEAKER) (test 0.01 K/ L 0.00-0.50 czyz=581) BASOPHILS ABSOLUTE COUNT (BEAKER) (test wpzj=801) 0.03 K/ L 0.00-0.20 [id number] 05:37:00 Test Item Value Reference Range Comments FIBRINOGEN LEVEL (BEAKER) (test scns=377) 117 mg/dl 225-434 HEPATIC FUNCTION [id number] 05:34:00 Test Item Value Reference Range Comments TOTAL PROTEIN (BEAKER) (test hcyx=593) 6.9 gm/dL 6.0-8.3 ALBUMIN (BEAKER) (test sevh=9852) 3.6 g/dL 3.5-5.0 BILIRUBIN TOTAL (BEAKER) (test aorm=499) 0.9 mg/dL 0.2-1.2 BILIRUBIN DIRECT (BEAKER) (test drko=893) 0.6 mg/dL 0.1-0.5 ALKALINE PHOSPHATASE (BEAKER) (test ghzx=514) 86 U/L 40-150 AST (SGOT) (BEAKER) (test sigq=878) 30 U/L 5-34 ALT (SGPT) (BEAKER) (test gmpt=246) 20 U/L 6-55 PROTHROMBIN [id number] 05:32:00 Test Item Value Reference Range Comments PROTIME (BEAKER) (test elgf=669) 19.3 seconds 11.7-14.7 INR (BEAKER) (test ayex=574) 1.6 <=5.9 RECOMMENDED COUMADIN/WARFARIN INR THERAPY RANGESSTANDARD DOSE: 2.0 - 3.0 Includes: PROPHYLAXIS forvenous thrombosis, systemic embolization; TREATMENT for venous thrombosis and/or pulmonary embolus.HIGH RISK: Target INR is 2.5-3.5 for patients with mechanical heart valves.POCT-GLUCOSE [id number] 23:16:00 Test Item Value Reference Range Comments POC-GLUCOSE METER (BEAKER) 221 mg/dL 70-110 TESTED AT [address] (test cdui=6923) [place] [address] POCT-GLUCOSE [id number] 16:13:00 Test Item Value Reference Range Comments POC-GLUCOSE METER (BEAKER) 117 mg/dL 70-110 TESTED AT [address] (test lmyw=5835) [place] [address] POCT-GLUCOSE [id number] 12:52:00 Test Item Value Reference Range Comments POC-GLUCOSE METER (BEAKER) 91 mg/dL 70-110 TESTED AT [address] (test zgpw=3511) [place] [address] CBC W/PLT COUNT & AUTO [id number] 06:44:00 Test Item Value Reference Range Comments WHITE BLOOD CELL COUNT (BEAKER) (test nhzk=356) 6.9 K/ L 4.0-10.0 RED BLOOD CELL COUNT (BEAKER) (test nzre=550) 3.13 M/ L 4.20-5.80 HEMOGLOBIN (BEAKER) (test wofb=282) 9.9 GM/DL 13.0-16.8 HEMATOCRIT (BEAKER) (test oqka=533) 30.8 % 40.0-50.0 MEAN CORPUSCULAR VOLUME (BEAKER) (test inyl=724) 98.6 fL 82.0-98.0 MEAN CORPUSCULAR HEMOGLOBIN (BEAKER) (test 31.7 pg 27.0-33.0 etve=385) MEAN CORPUSCULAR HEMOGLOBIN CONC (BEAKER) (test 32.1 GM/DL 32.0-36.0 ierj=686) RED CELL DISTRIBUTION WIDTH (BEAKER) (test 13.8 % 10.3-14.2 fcjc=781) PLATELET COUNT (BEAKER) (test mglk=679) 43 K/CU MM 150-430 MEAN PLATELET VOLUME (BEAKER) (test xibn=011) 9.5 fL 6.5-10.5 NUCLEATED RED BLOOD CELLS (BEAKER) (test 0 /100 WBC 0-0 lesu=063) NEUTROPHILS RELATIVE PERCENT (BEAKER) (test 84 % jjav=024) LYMPHOCYTES RELATIVE PERCENT (BEAKER) (test 5 % ebav=078) MONOCYTES RELATIVE PERCENT (BEAKER) (test 11 % npkh=611) EOSINOPHILS RELATIVE PERCENT (BEAKER) (test 0 % wsdj=375) BASOPHILS RELATIVE PERCENT (BEAKER) (test 0 % fojh=962) NEUTROPHILS ABSOLUTE COUNT (BEAKER) (test 5.73 K/ L 1.80-8.00 pffy=250) LYMPHOCYTES ABSOLUTE COUNT (BEAKER) (test 0.34 K/ L 1.48-4.50 kact=401) MONOCYTES ABSOLUTE COUNT (BEAKER) (test doow=629) 0.77 K/ L 0.00-1.30 EOSINOPHILS ABSOLUTE COUNT (BEAKER) (test 0.01 K/ L 0.00-0.50 bysf=027) BASOPHILS ABSOLUTE COUNT (BEAKER) (test rmli=997) 0.00 K/ L 0.00-0.20 0.00BASI METABOLIC [id number] 06:21:00 Test Item Value Reference Range Comments SODIUM (BEAKER) (test 141 meq/L 136-145 fpyy=324) POTASSIUM (BEAKER) (test 3.6 meq/L 3.5-5.1 hsiv=951) CHLORIDE (BEAKER) (test 98 meq/L 98-107 jlhh=431) CO2 (BEAKER) (test 31 meq/L 22-29 sxrj=822) BLOOD UREA NITROGEN 60 mg/dL 7-21 (BEAKER) (test vgel=341) CREATININE (BEAKER) (test 1.06 mg/dL 0.57-1.25 nuji=723) GLUCOSE RANDOM (BEAKER) 88 mg/dL 70-105 (test amqu=412) CALCIUM (BEAKER) (test 9.3 mg/dL 8.4-10.2 wumb=110) EGFR (BEAKER) (test mL/min/1.73 sq m INSUFFICIENT CLINICAL DATA guey=3349) TO CALCULATE ESTIMATED GFR. [id number] 06:20:00 Test Item Value Reference Range Comments FIBRINOGEN LEVEL (BEAKER) (test kwzu=333) 128 mg/dl 225-434 HEPATIC FUNCTION [id number] 06:18:00 Test Item Value Reference Range Comments TOTAL PROTEIN (BEAKER) (test voib=896) 7.7 gm/dL 6.0-8.3 ALBUMIN (BEAKER) (test pecv=5832) 4.1 g/dL 3.5-5.0 BILIRUBIN TOTAL (BEAKER) (test cuwb=356) 1.0 mg/dL 0.2-1.2 BILIRUBIN DIRECT (BEAKER) (test xymr=690) 0.6 mg/dL 0.1-0.5 ALKALINE PHOSPHATASE (BEAKER) (test qkoz=916) 89 U/L 40-150 AST (SGOT) (BEAKER) (test hvyj=871) 30 U/L 5-34 ALT (SGPT) (BEAKER) (test vpxp=925) 17 U/L 6-55 PROTHROMBIN [id number] 06:15:00 Test Item Value Reference Range Comments PROTIME (BEAKER) (test blgn=115) 19.5 seconds 11.7-14.7 INR (BEAKER) (test bimn=736) 1.7 <=5.9 RECOMMENDED COUMADIN/WARFARIN INR THERAPY RANGESSTANDARD DOSE: 2.0 - 3.0 Includes: PROPHYLAXIS forvenous thrombosis, systemic embolization; TREATMENT for venous thrombosis and/or pulmonary embolus.HIGH RISK: Target INR is 2.5-3.5 for patients with mechanical heart valves.POCT-GLUCOSE [id number] 21:14:00 Test Item Value Reference Range Comments POC-GLUCOSE METER (BEAKER) 133 mg/dL 70-110 TESTED AT [facility] [address] [facility] (test srqw=8688) [facility] [address] POCT-GLUCOSE [id number] 17:48:00 Test Item Value Reference Range Comments POC-GLUCOSE METER (BEAKER) 236 mg/dL 70-110 TESTED AT [address] (test wnbm=7502) [facility] [address] POCT-GLUCOSE [id number] 08:18:00 Test Item Value Reference Range Comments POC-GLUCOSE METER (BEAKER) 86 mg/dL 70-110 TESTED AT [address] (test cmru=0471) [facility] [address] BASIC METABOLIC [id number] 05:37:00 Test Item Value Reference Range Comments SODIUM (BEAKER) (test 140 meq/L 136-145 kuns=138) POTASSIUM (BEAKER) (test 3.8 meq/L 3.5-5.1 ttkg=959) CHLORIDE (BEAKER) (test 96 meq/L 98-107 cosu=044) CO2 (BEAKER) (test 32 meq/L 22-29 zayx=185) BLOOD UREA NITROGEN 64 mg/dL 7-21 (BEAKER) (test lqgp=264) CREATININE (BEAKER) (test 1.25 mg/dL 0.57-1.25 bsip=094) GLUCOSE RANDOM (BEAKER) 129 mg/dL 70-105 (test dxgh=086) CALCIUM (BEAKER) (test 9.4 mg/dL 8.4-10.2 urkp=666) EGFR (BEAKER) (test mL/min/1.73 sq m INSUFFICIENT CLINICAL DATA kptg=0665) TO CALCULATE ESTIMATED GFR. HEPATIC FUNCTION [id number] 05:30:00 Test Item Value Reference Range Comments TOTAL PROTEIN (BEAKER) (test npjo=185) 8.2 gm/dL 6.0-8.3 ALBUMIN (BEAKER) (test lyql=2980) 4.3 g/dL 3.5-5.0 BILIRUBIN TOTAL (BEAKER) (test noiq=371) 1.0 mg/dL 0.2-1.2 BILIRUBIN DIRECT (BEAKER) (test bmit=432) 0.6 mg/dL 0.1-0.5 ALKALINE PHOSPHATASE (BEAKER) (test wkxv=304) 92 U/L 40-150 AST (SGOT) (BEAKER) (test kmbi=386) 27 U/L 5-34 ALT (SGPT) (BEAKER) (test pfag=067) 18 U/L 6-55 [id number] 05:29:00 Test Item Value Reference Range Comments PHOSPHORUS (BEAKER) (test xvpe=972) 4.6 mg/dL 2.3-4.7 [id number] 05:29:00 Test Item Value Reference Range Comments MAGNESIUM (BEAKER) (test ksko=632) 2.3 mg/dL 1.6-2.6 [id number] 05:00:00 Test Item Value Reference Range Comments FIBRINOGEN LEVEL (BEAKER) (test ftpt=698) 139 mg/dl 225-434 [id number] 04:55:00 Test Item Value Reference Range Comments PARTIAL THROMBOPLASTIN TIME (BEAKER) (test 29.7 seconds 22.5-36.0 pzvh=778) PROTHROMBIN [id number] 04:54:00 Test Item Value Reference Range Comments PROTIME (BEAKER) (test inzm=068) 18.8 seconds 11.7-14.7 INR (BEAKER) (test eavq=057) 1.6 <=5.9 RECOMMENDED COUMADIN/WARFARIN INR THERAPY RANGESSTANDARD DOSE: 2.0 - 3.0 Includes: PROPHYLAXIS forvenous thrombosis, systemic embolization; TREATMENT for venous thrombosis and/or pulmonary embolus.HIGH RISK: Target INR is 2.5-3.5 for patients with mechanical heart valves.CBC W/PLT COUNT & AUTO [id number] 04:52:00 Test Item Value Reference Range Comments WHITE BLOOD CELL COUNT (BEAKER) (test klgo=400) 6.9 K/ L 4.0-10.0 RED BLOOD CELL COUNT (BEAKER) (test xykc=260) 3.13 M/ L 4.20-5.80 HEMOGLOBIN (BEAKER) (test jwkk=578) 10.1 GM/DL 13.0-16.8 HEMATOCRIT (BEAKER) (test vdvu=860) 30.7 % 40.0-50.0 MEAN CORPUSCULAR VOLUME (BEAKER) (test bqwc=769) 98.1 fL 82.0-98.0 MEAN CORPUSCULAR HEMOGLOBIN (BEAKER) (test 32.2 pg 27.0-33.0 ufwm=724) MEAN CORPUSCULAR HEMOGLOBIN CONC (BEAKER) (test 32.8 GM/DL 32.0-36.0 zayr=064) RED CELL DISTRIBUTION WIDTH (BEAKER) (test 13.8 % 10.3-14.2 obos=895) PLATELET COUNT (BEAKER) (test opsi=104) 67 K/CU MM 150-430 MEAN PLATELET VOLUME (BEAKER) (test brkw=681) 7.6 fL 6.5-10.5 NUCLEATED RED BLOOD CELLS (BEAKER) (test 0 /100 WBC 0-0 swoc=009) NEUTROPHILS RELATIVE PERCENT (BEAKER) (test 87 % wtqm=829) LYMPHOCYTES RELATIVE PERCENT (BEAKER) (test 5 % xnyt=892) MONOCYTES RELATIVE PERCENT (BEAKER) (test 8 % gpbg=584) EOSINOPHILS RELATIVE PERCENT (BEAKER) (test 0 % czqf=396) BASOPHILS RELATIVE PERCENT (BEAKER) (test 0 % nypq=420) NEUTROPHILS ABSOLUTE COUNT (BEAKER) (test 6.02 K/ L 1.80-8.00 hfwx=038) LYMPHOCYTES ABSOLUTE COUNT (BEAKER) (test 0.32 K/ L 1.48-4.50 xauy=206) MONOCYTES ABSOLUTE COUNT (BEAKER) (test ekmj=465) 0.56 K/ L 0.00-1.30 EOSINOPHILS ABSOLUTE COUNT (BEAKER) (test 0.01 K/ L 0.00-0.50 qwbu=270) BASOPHILS ABSOLUTE COUNT (BEAKER) (test bhdm=592) 0.00 K/ L 0.00-0.20 0.00POCT-GLUCOSE [id number] 21:17:00 Test Item Value Reference Range Comments POC-GLUCOSE METER (BEAKER) 191 mg/dL 70-110 TESTED AT [address] (test poda=9147) [facility] [address] POCT-GLUCOSE [id number] 17:29:00 Test Item Value Reference Range Comments POC-GLUCOSE METER (BEAKER) 161 mg/dL 70-110 TESTED AT [address] (test hrxq=4648) [facility] [address] POCT-GLUCOSE [id number] 11:48:00 Test Item Value Reference Range Comments POC-GLUCOSE METER (BEAKER) 103 mg/dL 70-110 TESTED AT [facility] [address] [facility] (test zxaa=7884) [facility] [address] POCT-GLUCOSE [id number] 07:43:00 Test Item Value Reference Range Comments POC-GLUCOSE METER (BEAKER) 100 mg/dL 70-110 TESTED AT [facility] [address] [facility] (test zmzc=4435) [facility] [address] BASIC METABOLIC [id number] 04:34:00 Test Item Value Reference Range Comments SODIUM (BEAKER) (test 139 meq/L 136-145 wpnr=687) POTASSIUM (BEAKER) (test 3.5 meq/L 3.5-5.1 chjq=477) CHLORIDE (BEAKER) (test 94 meq/L 98-107 olbi=631) CO2 (BEAKER) (test 33 meq/L 22-29 llku=313) BLOOD UREA NITROGEN 64 mg/dL 7-21 (BEAKER) (test jbyw=685) CREATININE (BEAKER) (test 1.16 mg/dL 0.57-1.25 eqgn=694) GLUCOSE RANDOM (BEAKER) 122 mg/dL 70-105 (test fkfw=511) CALCIUM (BEAKER) (test 9.2 mg/dL 8.4-10.2 idvg=335) EGFR (BEAKER) (test mL/min/1.73 sq m INSUFFICIENT CLINICAL DATA ndek=7714) TO CALCULATE ESTIMATED GFR. [id number] 04:33:00 Test Item Value Reference Range Comments MAGNESIUM (BEAKER) (test xgkp=561) 2.2 mg/dL 1.6-2.6 [id number] 04:33:00 Test Item Value Reference Range Comments PHOSPHORUS (BEAKER) (test xwwa=559) 3.8 mg/dL 2.3-4.7 HEPATIC FUNCTION [id number] 04:33:00 Test Item Value Reference Range Comments TOTAL PROTEIN (BEAKER) (test doru=490) 7.7 gm/dL 6.0-8.3 ALBUMIN (BEAKER) (test giba=7640) 4.2 g/dL 3.5-5.0 BILIRUBIN TOTAL (BEAKER) (test bafb=127) 0.9 mg/dL 0.2-1.2 BILIRUBIN DIRECT (BEAKER) (test rola=850) 0.6 mg/dL 0.1-0.5 ALKALINE PHOSPHATASE (BEAKER) (test famw=207) 87 U/L 40-150 AST (SGOT) (BEAKER) (test kxvi=104) 26 U/L 5-34 ALT (SGPT) (BEAKER) (test qgmn=967) 15 U/L 6-55 [id number] 04:30:00 Test Item Value Reference Range Comments FIBRINOGEN LEVEL (BEAKER) (test uxai=564) 137 mg/dl 225-434 [id number] 04:25:00 Test Item Value Reference Range Comments PARTIAL THROMBOPLASTIN TIME (BEAKER) (test 30.2 seconds 22.5-36.0 tqun=082) PROTHROMBIN [id number] 04:24:00 Test Item Value Reference Range Comments PROTIME (BEAKER) (test guvu=527) 19.5 seconds 11.7-14.7 INR (BEAKER) (test eill=775) 1.7 <=5.9 RECOMMENDED COUMADIN/WARFARIN INR THERAPY RANGESSTANDARD DOSE: 2.0 - 3.0 Includes: PROPHYLAXIS forvenous thrombosis, systemic embolization; TREATMENT for venous thrombosis and/or pulmonary embolus.HIGH RISK: Target INR is 2.5-3.5 for patients with mechanical heart valves.CBC W/PLT COUNT & AUTO [id number] 04:19:00 Test Item Value Reference Range Comments WHITE BLOOD CELL COUNT (BEAKER) (test gijr=427) 6.9 K/ L 4.0-10.0 RED BLOOD CELL COUNT (BEAKER) (test foav=884) 2.95 M/ L 4.20-5.80 HEMOGLOBIN (BEAKER) (test lezk=320) 9.7 GM/DL 13.0-16.8 HEMATOCRIT (BEAKER) (test mwdt=207) 28.9 % 40.0-50.0 MEAN CORPUSCULAR VOLUME (BEAKER) (test mvcz=443) 98.1 fL 82.0-98.0 MEAN CORPUSCULAR HEMOGLOBIN (BEAKER) (test 32.7 pg 27.0-33.0 zskz=434) MEAN CORPUSCULAR HEMOGLOBIN CONC (BEAKER) (test 33.4 GM/DL 32.0-36.0 rpve=260) RED CELL DISTRIBUTION WIDTH (BEAKER) (test 14.4 % 10.3-14.2 rfrg=468) PLATELET COUNT (BEAKER) (test zskr=101) 65 K/CU MM 150-430 MEAN PLATELET VOLUME (BEAKER) (test qhuc=297) 8.4 fL 6.5-10.5 NUCLEATED RED BLOOD CELLS (BEAKER) (test 0 /100 WBC 0-0 zlyb=972) NEUTROPHILS RELATIVE PERCENT (BEAKER) (test 85 % hifq=895) LYMPHOCYTES RELATIVE PERCENT (BEAKER) (test 6 % juuk=524) MONOCYTES RELATIVE PERCENT (BEAKER) (test 9 % qaih=083) EOSINOPHILS RELATIVE PERCENT (BEAKER) (test 0 % fzan=954) BASOPHILS RELATIVE PERCENT (BEAKER) (test 0 % aluy=165) NEUTROPHILS ABSOLUTE COUNT (BEAKER) (test 5.83 K/ L 1.80-8.00 veis=922) LYMPHOCYTES ABSOLUTE COUNT (BEAKER) (test 0.38 K/ L 1.48-4.50 kuyc=840) MONOCYTES ABSOLUTE COUNT (BEAKER) (test rimj=169) 0.65 K/ L 0.00-1.30 EOSINOPHILS ABSOLUTE COUNT (BEAKER) (test 0.02 K/ L 0.00-0.50 pexy=640) BASOPHILS ABSOLUTE COUNT (BEAKER) (test hdwq=630) 0.02 K/ L 0.00-0.20 0.00POCT-GLUCOSE [id number] 17:17:00 Test Item Value Reference Range Comments POC-GLUCOSE METER (BEAKER) 149 mg/dL 70-110 TESTED AT [address] (test hxqw=8079) [facility] [address] POCT-GLUCOSE [id number] 13:08:00 Test Item Value Reference Range Comments POC-GLUCOSE METER (BEAKER) 106 mg/dL 70-110 TESTED AT [address] (test mdni=2497) [facility] [address] CBC W/PLT COUNT & AUTO [id number] 08:13:00 Test Item Value Reference Range Comments WHITE BLOOD CELL COUNT (BEAKER) 5.5 K/ L 4.0-10.0 (test lwvt=755) RED BLOOD CELL COUNT (BEAKER) 2.95 M/ L 4.20-5.80 (test taon=286) HEMOGLOBIN (BEAKER) (test 9.5 GM/DL 13.0-16.8 ijuz=899) HEMATOCRIT (BEAKER) (test 29.1 % 40.0-50.0 rxrp=058) MEAN CORPUSCULAR VOLUME 98.4 fL 82.0-98.0 (BEAKER) (test csve=304) MEAN CORPUSCULAR HEMOGLOBIN 32.2 pg 27.0-33.0 (BEAKER) (test utwq=690) MEAN CORPUSCULAR HEMOGLOBIN 32.8 GM/DL 32.0-36.0 CONC (BEAKER) (test gqct=415) RED CELL DISTRIBUTION WIDTH 13.8 % 10.3-14.2 (BEAKER) (test hsoe=479) PLATELET COUNT (BEAKER) (test K/CU MM 150-430 plt clumps, see manual plt bbzg=505) count MEAN PLATELET VOLUME (BEAKER) 9.2 fL 6.5-10.5 (test ujrp=164) NUCLEATED RED BLOOD CELLS 0 /100 WBC 0-0 (BEAKER) (test miuu=500) NEUTROPHILS RELATIVE PERCENT 85 % (BEAKER) (test ktnr=062) LYMPHOCYTES RELATIVE PERCENT 4 % (BEAKER) (test lpop=074) MONOCYTES RELATIVE PERCENT 10 % (BEAKER) (test lslr=730) EOSINOPHILS RELATIVE PERCENT 0 % (BEAKER) (test mmxs=077) BASOPHILS RELATIVE PERCENT 0 % (BEAKER) (test tmly=242) NEUTROPHILS ABSOLUTE COUNT 4.72 K/ L 1.80-8.00 (BEAKER) (test rzld=752) LYMPHOCYTES ABSOLUTE COUNT 0.23 K/ L 1.48-4.50 (BEAKER) (test krgb=414) MONOCYTES ABSOLUTE COUNT 0.57 K/ L 0.00-1.30 (BEAKER) (test glyn=013) EOSINOPHILS ABSOLUTE COUNT 0.01 K/ L 0.00-0.50 (BEAKER) (test lydd=948) BASOPHILS ABSOLUTE COUNT 0.01 K/ L 0.00-0.20 (BEAKER) (test jbzk=986) 0.00(MANUAL DIFFERENTIAL)2016-09-13 08:13:00 Test Item Value Reference Range Comments TOTAL COUNTED (BEAKER) (test makz=8563) WBC MORPHOLOGY (BEAKER) (test btcq=775) Normal LARGE PLT(BEAKER) (test ubew=4455) Present CLUMPED PLATELETS (BEAKER) (test bohi=657) Present ANISOCYTOSIS (BEAKER) (test ghcs=819) 1+ few HYPOCHROMIA (BEAKER) (test hobs=848) 1+ few MACROCYTES (BEAKER) (test tgxt=894) 1+ few OVALOCYTES (BEAKER) (test vrkr=819) 1+ few POIKILOCYTES (BEAKER) (test fhph=300) 1+ few PLATELET COUNT BY MANUAL [id number] 08:13:00 Test Item Value Reference Range Comments PLATELET COUNT MANUAL (BEAKER) (test frnx=5796) 60 K/CU MM 150-430 POCT-GLUCOSE [id number] 07:37:00 Test Item Value Reference Range Comments POC-GLUCOSE METER (BEAKER) 113 mg/dL 70-110 TESTED AT [facility] [address] [facility] (test oevf=8877) [facility] [address] BASIC METABOLIC [id number] 06:17:00 Test Item Value Reference Range Comments SODIUM (BEAKER) (test 141 meq/L 136-145 esel=946) POTASSIUM (BEAKER) (test 3.7 meq/L 3.5-5.1 jrgq=594) CHLORIDE (BEAKER) (test 98 meq/L 98-107 repr=093) CO2 (BEAKER) (test 33 meq/L 22-29 sezt=984) BLOOD UREA NITROGEN 65 mg/dL 7-21 (BEAKER) (test vial=399) CREATININE (BEAKER) (test 1.15 mg/dL 0.57-1.25 jcnf=982) GLUCOSE RANDOM (BEAKER) 115 mg/dL 70-105 (test umro=120) CALCIUM (BEAKER) (test 9.0 mg/dL 8.4-10.2 aubu=436) EGFR (BEAKER) (test mL/min/1.73 sq m INSUFFICIENT CLINICAL DATA chzw=6053) TO CALCULATE ESTIMATED GFR. [id number] 05:59:00 Test Item Value Reference Range Comments FIBRINOGEN LEVEL (BEAKER) (test pfni=617) 157 mg/dl 225-434 [id number] 05:53:00 Test Item Value Reference Range Comments PARTIAL THROMBOPLASTIN TIME (BEAKER) (test 31.2 seconds 22.5-36.0 eezs=045) PROTHROMBIN [id number] 05:52:00 Test Item Value Reference Range Comments PROTIME (BEAKER) (test bija=130) 20.3 seconds 11.7-14.7 INR (BEAKER) (test rpzj=902) 1.7 <=5.9 RECOMMENDED COUMADIN/WARFARIN INR THERAPY RANGESSTANDARD DOSE: 2.0 - 3.0 Includes: PROPHYLAXIS forvenous thrombosis, systemic embolization; TREATMENT for venous thrombosis and/or pulmonary embolus.HIGH RISK: Target INR is 2.5-3.5 for patients with mechanical heart valves.POCT-GLUCOSE [id number] 21:09:00 Test Item Value Reference Range Comments POC-GLUCOSE METER (BEAKER) 233 mg/dL 70-110 TESTED AT [address] (test bezr=3789) [place] [address] POCT-GLUCOSE [id number] 13:03:00 Test Item Value Reference Range Comments POC-GLUCOSE METER (BEAKER) 93 mg/dL 70-110 TESTED AT [address] (test zhmw=4695) [place] [address] BASIC METABOLIC [id number] 07:06:00 Test Item Value Reference Range Comments SODIUM (BEAKER) (test 140 meq/L 136-145 eudf=189) POTASSIUM (BEAKER) (test 4.0 meq/L 3.5-5.1 kcwj=375) CHLORIDE (BEAKER) (test 99 meq/L 98-107 elwi=689) CO2 (BEAKER) (test 29 meq/L 22-29 cwlp=549) BLOOD UREA NITROGEN 66 mg/dL 7-21 (BEAKER) (test kyxk=835) CREATININE (BEAKER) (test 1.28 mg/dL 0.57-1.25 lpeq=758) GLUCOSE RANDOM (BEAKER) 108 mg/dL 70-105 (test osda=470) CALCIUM (BEAKER) (test 8.9 mg/dL 8.4-10.2 snsx=805) EGFR (BEAKER) (test mL/min/1.73 sq m INSUFFICIENT CLINICAL DATA mxqb=9054) TO CALCULATE ESTIMATED GFR. B-TYPE NATRIURETIC FACTOR (BNP)2016-09-12 07:04:00 Test Item Value Reference Range Comments B-TYPE NATRIURETIC PEPTIDE (BEAKER) (test 323 pg/mL 0-100 nnat=039) CBC W/PLT COUNT & AUTO [id number] 07:02:00 Test Item Value Reference Range Comments WHITE BLOOD CELL COUNT (BEAKER) (test opow=949) 6.2 K/ L 4.0-10.0 RED BLOOD CELL COUNT (BEAKER) (test tnug=934) 2.82 M/ L 4.20-5.80 HEMOGLOBIN (BEAKER) (test szve=041) 9.2 GM/DL 13.0-16.8 HEMATOCRIT (BEAKER) (test jxan=855) 27.9 % 40.0-50.0 MEAN CORPUSCULAR VOLUME (BEAKER) (test qrqe=979) 98.7 fL 82.0-98.0 MEAN CORPUSCULAR HEMOGLOBIN (BEAKER) (test 32.7 pg 27.0-33.0 lqkb=181) MEAN CORPUSCULAR HEMOGLOBIN CONC (BEAKER) (test 33.2 GM/DL 32.0-36.0 ecco=178) RED CELL DISTRIBUTION WIDTH (BEAKER) (test 13.8 % 10.3-14.2 silg=136) PLATELET COUNT (BEAKER) (test ggox=705) 52 K/CU MM 150-430 MEAN PLATELET VOLUME (BEAKER) (test zvkx=767) 8.6 fL 6.5-10.5 NUCLEATED RED BLOOD CELLS (BEAKER) (test 0 /100 WBC 0-0 sftc=127) NEUTROPHILS RELATIVE PERCENT (BEAKER) (test 85 % ghaw=624) LYMPHOCYTES RELATIVE PERCENT (BEAKER) (test 4 % qmre=345) MONOCYTES RELATIVE PERCENT (BEAKER) (test 10 % wtdk=422) EOSINOPHILS RELATIVE PERCENT (BEAKER) (test 0 % jwfw=957) BASOPHILS RELATIVE PERCENT (BEAKER) (test 1 % ewui=421) NEUTROPHILS ABSOLUTE COUNT (BEAKER) (test 5.26 K/ L 1.80-8.00 wbth=225) LYMPHOCYTES ABSOLUTE COUNT (BEAKER) (test 0.24 K/ L 1.48-4.50 kwim=076) MONOCYTES ABSOLUTE COUNT (BEAKER) (test bqmy=050) 0.61 K/ L 0.00-1.30 EOSINOPHILS ABSOLUTE COUNT (BEAKER) (test 0.01 K/ L 0.00-0.50 xezj=568) BASOPHILS ABSOLUTE COUNT (BEAKER) (test arwo=163) 0.06 K/ L 0.00-0.20 [id number] 06:59:00 Test Item Value Reference Range Comments FIBRINOGEN LEVEL (BEAKER) (test rlxn=871) 150 mg/dl 225-434 [id number] 06:55:00 Test Item Value Reference Range Comments PARTIAL THROMBOPLASTIN TIME (BEAKER) (test 32.2 seconds 22.5-36.0 mpze=990) PROTHROMBIN [id number] 06:52:00 Test Item Value Reference Range Comments PROTIME (BEAKER) (test licf=703) 20.2 seconds 11.7-14.7 INR (BEAKER) (test swtg=635) 1.7 <=5.9 RECOMMENDED COUMADIN/WARFARIN INR THERAPY RANGESSTANDARD DOSE: 2.0 - 3.0 Includes: PROPHYLAXIS forvenous thrombosis, systemic embolization; TREATMENT for venous thrombosis and/or pulmonary embolus.HIGH RISK: Target INR is 2.5-3.5 for patients with mechanical heart valves.POCT-GLUCOSE [id number] 21:59:00 Test Item Value Reference Range Comments POC-GLUCOSE METER (BEAKER) 168 mg/dL 70-110 TESTED AT [address] (test vqvm=4649) [place] [id number] BODY FLUID CULTURE + GRAM [id number] 14:32:00 Test Item Value Reference Range Comments CULTURE (BEAKER) (test nwsl=8607) No growth GRAM STAIN RESULT (BEAKER) (test 2+ WBCs eced=3068) GRAM STAIN RESULT (BEAKER) (test No organisms seen fxip=63252) POCT-GLUCOSE [id number] 11:29:00 Test Item Value Reference Range Comments POC-GLUCOSE METER (BEAKER) 94 mg/dL 70-110 TESTED AT [address] (test pqjl=1625) [place] [id number] CBC W/PLT COUNT & AUTO [id number] 09:59:00 Test Item Value Reference Range Comments WHITE BLOOD CELL COUNT (BEAKER) (test jafw=922) 7.6 K/ L 4.0-10.0 RED BLOOD CELL COUNT (BEAKER) (test ruun=240) 3.23 M/ L 4.20-5.80 HEMOGLOBIN (BEAKER) (test amko=257) 9.5 GM/DL 13.0-16.8 HEMATOCRIT (BEAKER) (test ftfi=177) 31.9 % 40.0-50.0 MEAN CORPUSCULAR VOLUME (BEAKER) (test rnuo=809) 98.6 fL 82.0-98.0 MEAN CORPUSCULAR HEMOGLOBIN (BEAKER) (test 29.5 pg 27.0-33.0 remk=376) MEAN CORPUSCULAR HEMOGLOBIN CONC (BEAKER) (test 29.9 GM/DL 32.0-36.0 fcol=382) RED CELL DISTRIBUTION WIDTH (BEAKER) (test 13.8 % 10.3-14.2 pxms=278) PLATELET COUNT (BEAKER) (test lwao=744) 33 K/CU MM 150-430 MEAN PLATELET VOLUME (BEAKER) (test acve=025) 9.9 fL 6.5-10.5 NUCLEATED RED BLOOD CELLS (BEAKER) (test 0 /100 WBC 0-0 erjt=341) NEUTROPHILS RELATIVE PERCENT (BEAKER) (test 86 % pwrw=754) LYMPHOCYTES RELATIVE PERCENT (BEAKER) (test 4 % reij=719) MONOCYTES RELATIVE PERCENT (BEAKER) (test 10 % xbic=950) EOSINOPHILS RELATIVE PERCENT (BEAKER) (test 0 % hmsb=745) BASOPHILS RELATIVE PERCENT (BEAKER) (test 1 % suri=341) NEUTROPHILS ABSOLUTE COUNT (BEAKER) (test 6.55 K/ L 1.80-8.00 xbcl=661) LYMPHOCYTES ABSOLUTE COUNT (BEAKER) (test 0.27 K/ L 1.48-4.50 njcz=012) MONOCYTES ABSOLUTE COUNT (BEAKER) (test potj=825) 0.76 K/ L 0.00-1.30 EOSINOPHILS ABSOLUTE COUNT (BEAKER) (test 0.01 K/ L 0.00-0.50 xmtd=311) BASOPHILS ABSOLUTE COUNT (BEAKER) (test fdqr=163) 0.05 K/ L 0.00-0.20 0.000.730.900.000.000.000.000.000.000.000.000.000.000.000.000.000.000.00(MANUAL DIFFERENTIAL)2016-09-11 09:59:00 Test Item Value Reference Range Comments TOTAL COUNTED (BEAKER) (test dmmt=5889) POCT-GLUCOSE [id number] 08:02:00 Test Item Value Reference Range Comments POC-GLUCOSE METER (BEAKER) 173 mg/dL 70-110 TESTED AT [facility] [address] [facility] (test dggc=0286) [facility] [address] BLOOD [id number] 06:00:00 Test Item Value Reference Range Comments CULTURE (BEAKER) (test mqca=0774) No growth in 5 days BLOOD [id number] 06:00:00 Test Item Value Reference Range Comments CULTURE (BEAKER) (test exjl=6264) No growth in 5 days BASIC METABOLIC [id number] 05:16:00 Test Item Value Reference Range Comments SODIUM (BEAKER) (test 137 meq/L 136-145 pbst=185) POTASSIUM (BEAKER) (test 4.3 meq/L 3.5-5.1 wawd=291) CHLORIDE (BEAKER) (test 100 meq/L 98-107 foqk=988) CO2 (BEAKER) (test 28 meq/L 22-29 zarw=176) BLOOD UREA NITROGEN 63 mg/dL 7-21 (BEAKER) (test lwrr=850) CREATININE (BEAKER) (test 1.35 mg/dL 0.57-1.25 epxy=045) GLUCOSE RANDOM (BEAKER) 107 mg/dL 70-105 (test ctww=927) CALCIUM (BEAKER) (test 8.8 mg/dL 8.4-10.2 lanc=156) EGFR (BEAKER) (test mL/min/1.73 sq m INSUFFICIENT CLINICAL DATA dydu=8166) TO CALCULATE ESTIMATED GFR. [id number] 05:05:00 Test Item Value Reference Range Comments FIBRINOGEN LEVEL (BEAKER) (test azjo=883) 182 mg/dl 225-434 PROTHROMBIN [id number] 05:04:00 Test Item Value Reference Range Comments PROTIME (BEAKER) (test txux=632) 19.1 seconds 11.7-14.7 INR (BEAKER) (test txxt=004) 1.6 <=5.9 RECOMMENDED COUMADIN/WARFARIN INR THERAPY RANGESSTANDARD DOSE: 2.0 - 3.0 Includes: PROPHYLAXIS forvenous thrombosis, systemic embolization; TREATMENT for venous thrombosis and/or pulmonary embolus.HIGH RISK: Target INR is 2.5-3.5 for patients with mechanical heart valves.[id number] 05:04:00 Test Item Value Reference Range Comments PARTIAL THROMBOPLASTIN TIME (BEAKER) (test 31.5 seconds 22.5-36.0 teev=083) POCT-GLUCOSE [id number] 21:44:00 Test Item Value Reference Range Comments POC-GLUCOSE METER (BEAKER) 167 mg/dL 70-110 TESTED AT [address] (test naog=9095) [facility] [address] POCT-GLUCOSE [id number] 18:07:00 Test Item Value Reference Range Comments POC-GLUCOSE METER (BEAKER) 159 mg/dL 70-110 TESTED AT [address] (test qwgo=2874) [facility] [address] POCT-GLUCOSE [id number] 11:58:00 Test Item Value Reference Range Comments POC-GLUCOSE METER (BEAKER) 153 mg/dL 70-110 TESTED AT [address] (test azqu=6441) [facility] [address] CBC W/PLT COUNT & AUTO [id number] 09:13:00 Test Item Value Reference Range Comments WHITE BLOOD CELL COUNT (BEAKER) (test tcrq=630) 7.7 K/ L 4.0-10.0 RED BLOOD CELL COUNT (BEAKER) (test hfym=646) 2.97 M/ L 4.20-5.80 HEMOGLOBIN (BEAKER) (test zulf=107) 9.7 GM/DL 13.0-16.8 HEMATOCRIT (BEAKER) (test wvgo=840) 29.2 % 40.0-50.0 MEAN CORPUSCULAR VOLUME (BEAKER) (test rcur=906) 98.1 fL 82.0-98.0 MEAN CORPUSCULAR HEMOGLOBIN (BEAKER) (test 32.6 pg 27.0-33.0 lzss=322) MEAN CORPUSCULAR HEMOGLOBIN CONC (BEAKER) (test 33.2 GM/DL 32.0-36.0 qffb=709) RED CELL DISTRIBUTION WIDTH (BEAKER) (test 13.7 % 10.3-14.2 vgxy=419) PLATELET COUNT (BEAKER) (test nqws=363) 25 K/CU MM 150-430 MEAN PLATELET VOLUME (BEAKER) (test gdmc=437) 10.2 fL 6.5-10.5 NUCLEATED RED BLOOD CELLS (BEAKER) (test 0 /100 WBC 0-0 qeuu=190) NEUTROPHILS RELATIVE PERCENT (BEAKER) (test 86 % zntz=844) LYMPHOCYTES RELATIVE PERCENT (BEAKER) (test 4 % bnmt=943) MONOCYTES RELATIVE PERCENT (BEAKER) (test 10 % wguv=697) EOSINOPHILS RELATIVE PERCENT (BEAKER) (test 0 % fjxr=081) BASOPHILS RELATIVE PERCENT (BEAKER) (test 0 % cyvy=136) NEUTROPHILS ABSOLUTE COUNT (BEAKER) (test 6.61 K/ L 1.80-8.00 exuq=147) LYMPHOCYTES ABSOLUTE COUNT (BEAKER) (test 0.29 K/ L 1.48-4.50 adcc=688) MONOCYTES ABSOLUTE COUNT (BEAKER) (test sdwc=087) 0.77 K/ L 0.00-1.30 EOSINOPHILS ABSOLUTE COUNT (BEAKER) (test 0.01 K/ L 0.00-0.50 vdrg=639) BASOPHILS ABSOLUTE COUNT (BEAKER) (test ywnt=474) 0.00 K/ L 0.00-0.20 0.00POCT-GLUCOSE [id number] 08:17:00 Test Item Value Reference Range Comments POC-GLUCOSE METER (BEAKER) 110 mg/dL 70-110 TESTED AT [facility] [address] [facility] (test tlmd=6732) [facility] [address] BASIC METABOLIC [id number] 07:06:00 Test Item Value Reference Range Comments SODIUM (BEAKER) (test 135 meq/L 136-145 llyy=154) POTASSIUM (BEAKER) (test 4.6 meq/L 3.5-5.1 bzpf=095) CHLORIDE (BEAKER) (test 101 meq/L 98-107 xbnl=870) CO2 (BEAKER) (test 26 meq/L 22-29 tzck=879) BLOOD UREA NITROGEN 57 mg/dL 7-21 (BEAKER) (test xilp=434) CREATININE (BEAKER) (test 1.69 mg/dL 0.57-1.25 yimy=924) GLUCOSE RANDOM (BEAKER) 121 mg/dL 70-105 (test iqar=205) CALCIUM (BEAKER) (test 8.3 mg/dL 8.4-10.2 smmc=493) EGFR (BEAKER) (test mL/min/1.73 sq m INSUFFICIENT CLINICAL DATA lrzn=3497) TO CALCULATE ESTIMATED GFR. [id number] 06:52:00 Test Item Value Reference Range Comments FIBRINOGEN LEVEL (BEAKER) (test izkv=749) 203 mg/dl 225-434 [id number] 06:52:00 Test Item Value Reference Range Comments PARTIAL THROMBOPLASTIN TIME (BEAKER) (test 32.6 seconds 22.5-36.0 hxmr=507) PROTHROMBIN [id number] 06:51:00 Test Item Value Reference Range Comments PROTIME (BEAKER) (test cfpr=804) 19.8 seconds 11.7-14.7 INR (BEAKER) (test bkdu=587) 1.7 <=5.9 RECOMMENDED COUMADIN/WARFARIN INR THERAPY RANGESSTANDARD DOSE: 2.0 - 3.0 Includes: PROPHYLAXIS forvenous thrombosis, systemic embolization; TREATMENT for venous thrombosis and/or pulmonary embolus.HIGH RISK: Target INR is 2.5-3.5 for patients with mechanical heart valves.POCT-GLUCOSE [id number] 21:51:00 Test Item Value Reference Range Comments POC-GLUCOSE METER (BEAKER) 157 mg/dL 70-110 TESTED AT [address] (test wxhp=8753) [place] [address] POCT-GLUCOSE [id number] 16:53:00 Test Item Value Reference Range Comments POC-GLUCOSE METER (BEAKER) 154 mg/dL 70-110 TESTED AT [address] (test pvqh=8316) [place] [address] POCT-GLUCOSE [id number] 12:31:00 Test Item Value Reference Range Comments POC-GLUCOSE METER (BEAKER) 190 mg/dL 70-110 TESTED AT [address] (test gnch=9025) [place] [address] CBC W/PLT COUNT & AUTO [id number] 09:48:00 Test Item Value Reference Range Comments WHITE BLOOD CELL COUNT (BEAKER) (test huno=107) 4.1 K/ L 4.0-10.0 RED BLOOD CELL COUNT (BEAKER) (test wugs=310) 3.24 M/ L 4.20-5.80 HEMOGLOBIN (BEAKER) (test xafj=476) 9.8 GM/DL 13.0-16.8 HEMATOCRIT (BEAKER) (test hcjy=609) 32.2 % 40.0-50.0 MEAN CORPUSCULAR VOLUME (BEAKER) (test rtcr=251) 99.5 fL 82.0-98.0 MEAN CORPUSCULAR HEMOGLOBIN (BEAKER) (test 30.4 pg 27.0-33.0 ynuh=566) MEAN CORPUSCULAR HEMOGLOBIN CONC (BEAKER) (test 30.5 GM/DL 32.0-36.0 sjdf=019) RED CELL DISTRIBUTION WIDTH (BEAKER) (test 13.8 % 10.3-14.2 xnqk=023) PLATELET COUNT (BEAKER) (test omug=387) 28 K/CU MM 150-430 MEAN PLATELET VOLUME (BEAKER) (test muaa=533) 9.7 fL 6.5-10.5 NUCLEATED RED BLOOD CELLS (BEAKER) (test 0 /100 WBC 0-0 lvvx=216) NEUTROPHILS RELATIVE PERCENT (BEAKER) (test 90 % psxp=607) LYMPHOCYTES RELATIVE PERCENT (BEAKER) (test 6 % ggfw=363) MONOCYTES RELATIVE PERCENT (BEAKER) (test 3 % jqey=504) EOSINOPHILS RELATIVE PERCENT (BEAKER) (test 0 % gtta=441) BASOPHILS RELATIVE PERCENT (BEAKER) (test 0 % qwnu=054) NEUTROPHILS ABSOLUTE COUNT (BEAKER) (test 3.64 K/ L 1.80-8.00 nxtd=281) LYMPHOCYTES ABSOLUTE COUNT (BEAKER) (test 0.26 K/ L 1.48-4.50 hkib=621) MONOCYTES ABSOLUTE COUNT (BEAKER) (test wkzd=329) 0.14 K/ L 0.00-1.30 EOSINOPHILS ABSOLUTE COUNT (BEAKER) (test 0.01 K/ L 0.00-0.50 rnby=164) BASOPHILS ABSOLUTE COUNT (BEAKER) (test piko=980) 0.01 K/ L 0.00-0.20 0.00POCT-GLUCOSE [id number] 08:39:00 Test Item Value Reference Range Comments POC-GLUCOSE METER (BEAKER) 146 mg/dL 70-110 TESTED AT [facility] [address] [facility] (test zmqo=7041) [facility] [address] HEMOGLOBIN AND [id number] 06:53:00 Test Item Value Reference Range Comments HEMOGLOBIN (BEAKER) (test yahu=928) 9.6 GM/DL 13.0-16.8 HEMATOCRIT (BEAKER) (test zjyp=229) 30.0 % 40.0-50.0 HEPATITIS PANEL, [id number] 05:20:00 Test Item Value Reference Range Comments HEPATITIS A IGM ANTIBODY (BEAKER) (test Nonreactive Nonreactive favc=489) HEPATITIS B CORE IGM ANTIBODY (BEAKER) (test Nonreactive Nonreactive whlq=712) HEPATITIS C ANTIBODY (BEAKER) (test wpak=806) Nonreactive Nonreactive HEPATITIS B SURFACE ANTIGEN (2) (BEAKER) (test Nonreactive Nonreactive kxha=1294) ALPHA FETOPROTEIN (AFP), TUMOR [id number] 05:20:00 Test Item Value Reference Range Comments ALPHA-FETOPROTEIN (BEAKER) (test cowl=8885) < ng/mL <10.0 Effective 05/09/2014: Reference Range ChangeNew: <10.0 Previous: 0.0- [id number] 05:10:00 Test Item Value Reference Range Comments PREALBUMIN (BEAKER) (test 9 mg/dL 14-45 Specimen slightly hemolyzed jede=114) IMMUNOGLOBULIN G (IGG)2016-09-09 05:10:00 Test Item Value Reference Range Comments IMMUNOGLOBULIN G (IGG) (BEAKER) (test ugqv=202) 2488 mg/dL 540-1822 BASIC METABOLIC [id number] 04:56:00 Test Item Value Reference Range Comments SODIUM (BEAKER) (test 133 meq/L 136-145 dtrw=426) POTASSIUM (BEAKER) (test 5.2 meq/L 3.5-5.1 xehd=212) CHLORIDE (BEAKER) (test 99 meq/L 98-107 yeqv=228) CO2 (BEAKER) (test 25 meq/L 22-29 waqz=972) BLOOD UREA NITROGEN 47 mg/dL 7-21 (BEAKER) (test gdgz=382) CREATININE (BEAKER) (test 2.09 mg/dL 0.57-1.25 lvih=049) GLUCOSE RANDOM (BEAKER) 128 mg/dL 70-105 (test xqxz=849) CALCIUM (BEAKER) (test 8.3 mg/dL 8.4-10.2 srgd=344) EGFR (BEAKER) (test mL/min/1.73 sq m INSUFFICIENT CLINICAL DATA xwnc=3440) TO CALCULATE ESTIMATED GFR. [id number] 04:50:00 Test Item Value Reference Range Comments PARTIAL THROMBOPLASTIN TIME (BEAKER) (test 34.4 seconds 22.5-36.0 aegs=947) PROTHROMBIN TIME/[id number] 04:49:00 Test Item Value Reference Range Comments PROTIME (BEAKER) (test bfbt=491) 18.4 seconds 11.7-14.7 INR (BEAKER) (test izfl=630) 1.5 <=5.9 RECOMMENDED COUMADIN/WARFARIN INR THERAPY RANGESSTANDARD DOSE: 2.0 - 3.0 Includes: PROPHYLAXIS forvenous thrombosis, systemic embolization; TREATMENT for venous thrombosis and/or pulmonary embolus.HIGH RISK: Target INR is 2.5-3.5 for patients with mechanical heart valves.[id number] 04:49:00 Test Item Value Reference Range Comments FIBRINOGEN LEVEL (BEAKER) (test koqx=203) 265 mg/dl 225-434 HEMOGLOBIN AND [id number] 01:12:00 Test Item Value Reference Range Comments HEMOGLOBIN (BEAKER) (test ytdk=584) 9.8 GM/DL 13.0-16.8 HEMATOCRIT (BEAKER) (test ubah=127) 30.6 % 40.0-50.0 POCT-GLUCOSE [id number] 21:55:00 Test Item Value Reference Range Comments POC-GLUCOSE METER (BEAKER) 108 mg/dL 70-110 TESTED AT [facility] [address] [facility] (test ffjn=5930) [facility] [address] BODY FLUID CELL COUNT WITH [id number] 19:27:00 Test Item Value Reference Range Comments APPEARANCE FLUID (BEAKER) (test qgqc=444) Cloudy Clear COLOR FLUID (BEAKER) (test frtp=676) Niru Colorless, Straw RBC FLUID (BEAKER) (test waja=755) 6800 /cu mm <=1 ADJUSTED WBC FLUID (BEAKER) (test nxxs=1211) 283 /cu mm <=5 LINING CELLS (BEAKER) (test ytdp=9588) 0 /cu mm <=1 NEUTROPHILS FLUID (BEAKER) (test esri=5643) 6 % LYMPHS FLUID (BEAKER) (test mgki=308) 12 % MONO/MACROPHAGE FLUID (BEAKER) (test sehb=592) 82 % EOSINOPHILS FLUID (BEAKER) (test svzu=222) 0 % BASO FLUID (BEAKER) (test cjkq=525) 0 % CONTAINER BODY FLUID (BEAKER) (test dsax=7758) EDTA Tube LACTATE DEHYDROGENASE (LDH), BODY [id number] 18:24:00 Test Item Value Reference Range Comments LACTATE DEHYDROGENASE FLUID (BEAKER) (test mdpo=247) 118 U/L Absence of reference range indicates that normals have not been defined.Assay performance has not been validated for this type of specimen.POCT-GLUCOSE [id number] 18:18:00 Test Item Value Reference Range Comments POC-GLUCOSE METER (BEAKER) 137 mg/dL 70-110 TESTED AT [facility] [address] [facility] (test xpiq=5904) [facility] [address] ALBUMIN, BODY [id number] 18:06:00 Test Item Value Reference Range Comments ALBUMIN FLUID (BEAKER) (test wtpx=733) 1.7 gm/dL Reference Range: No Normals Assay performance has not been validated for this type of specimen.[facility] (DRVV)2016-09-08 16:28:00 Test Item Value Reference Range Comments PROTIME (BEAKER) (test lbfi=747) 18.3 seconds 11.7-14.7 INR (BEAKER) (test asfy=020) 1.6 <=5.9 PARTIAL THROMBOPLASTIN TIME 36.3 seconds 22.5-36.0 (BEAKER) (test bsnr=777) DRVV INTERPRETATION (BEAKER) Normal DRVV Results (test ibva=3674) [id number] (BEAKER) Carolina Mahan MD (test mcpf=0756) (electronic signature) DRVV SCREEN RATIO (BEAKER) (test 1.14 <1.20 twbd=5700) Effective 10/25/2013: Test Method ChangeDRVV Screen Ratio, DRVV 1/1 Screen Ratio, DRVV Confirm Ratio,DRVV Normalized Ratio Reference Range: <1.2Protime Reference Range ChangeNew: 11.7-14.7 Previous: 9.8-12.0PTT Reference Range ChangeNew: 22.5-36.0 Previous: 25.8-34.5ALPHA FETOPROTEIN (AFP), TUMOR [id number] 16:23:00 Test Item Value Reference Range Comments ALPHA-FETOPROTEIN (BEAKER) (test nguj=9316) 2.0 ng/mL <10.0 Effective 05/09/2014: Reference Range ChangeNew: <10.0 Previous: 0.0- 8.0CBC W/PLT COUNT & AUTO [id number] 15:34:00 Test Item Value Reference Range Comments WHITE BLOOD CELL COUNT (BEAKER) (test nihr=356) 5.4 K/ L 4.0-10.0 RED BLOOD CELL COUNT (BEAKER) (test cxde=050) 3.02 M/ L 4.20-5.80 HEMOGLOBIN (BEAKER) (test oloj=374) 9.8 GM/DL 13.0-16.8 HEMATOCRIT (BEAKER) (test gpfp=121) 30.0 % 40.0-50.0 MEAN CORPUSCULAR VOLUME (BEAKER) (test pfyd=881) 99.4 fL 82.0-98.0 MEAN CORPUSCULAR HEMOGLOBIN (BEAKER) (test 32.4 pg 27.0-33.0 dirl=803) MEAN CORPUSCULAR HEMOGLOBIN CONC (BEAKER) (test 32.6 GM/DL 32.0-36.0 juyl=872) RED CELL DISTRIBUTION WIDTH (BEAKER) (test 13.6 % 10.3-14.2 zjju=834) PLATELET COUNT (BEAKER) (test zhqv=902) 46 K/CU MM 150-430 MEAN PLATELET VOLUME (BEAKER) (test vywy=819) 7.7 fL 6.5-10.5 NUCLEATED RED BLOOD CELLS (BEAKER) (test 0 /100 WBC 0-0 mkld=368) NEUTROPHILS RELATIVE PERCENT (BEAKER) (test 78 % soux=431) LYMPHOCYTES RELATIVE PERCENT (BEAKER) (test 6 % dgcj=345) MONOCYTES RELATIVE PERCENT (BEAKER) (test 14 % xdcc=607) EOSINOPHILS RELATIVE PERCENT (BEAKER) (test 2 % iecb=909) BASOPHILS RELATIVE PERCENT (BEAKER) (test 0 % xiiw=553) NEUTROPHILS ABSOLUTE COUNT (BEAKER) (test 4.20 K/ L 1.80-8.00 upbc=773) LYMPHOCYTES ABSOLUTE COUNT (BEAKER) (test 0.33 K/ L 1.48-4.50 rbsx=528) MONOCYTES ABSOLUTE COUNT (BEAKER) (test ihri=724) 0.74 K/ L 0.00-1.30 EOSINOPHILS ABSOLUTE COUNT (BEAKER) (test 0.09 K/ L 0.00-0.50 dyan=466) BASOPHILS ABSOLUTE COUNT (BEAKER) (test yqzn=389) 0.02 K/ L 0.00-0.20 0.00ANTI-NUCLEAR ANTIBODY (ANNEL)2016-09-08 15:18:00 Test Item Value Reference Range Comments ANTI-NUCLEAR ANTIBODY (ANNEL) (BEAKER) (test Negative Negative tbcr=317) EQUAL MIX, NORMAL [id number] 14:55:00 Test Item Value Reference Range Comments PROTIME (BEAKER) (test uilt=034) 18.3 seconds 11.7-14.7 PARTIAL THROMBOPLASTIN TIME (BEAKER) (test 36.3 seconds 22.5-36.0 ocmk=571) PT 1/1 MIX (BEAKER) (test rxkg=3295) 14.6 SECS 11.7-14.7 PTT 1/1 MIX (BEAKER) (test lonn=0809) 33.9 SECS 22.5-36.0 THROMBIN [id number] 14:55:00 Test Item Value Reference Range Comments THROMBIN TIME (BEAKER) (test bpnk=222) 17.4 secs 13.8-20.0 IMMUNOFIXATION ELECTROPHORESIS (TEJAL)2016-09-08 13:53:00 Test Item Value Reference Range Comments IMMUNOGLOBULIN G (IGG) (BEAKER) 2100 mg/dL 540-1822 (test geyb=862) IMMUNOGLOBULIN A (IGA) (BEAKER) 450 mg/dL 63-484 (test otmj=951) IMMUNOGLOBULIN M (IGM) (BEAKER) 126 mg/dL 22-293 (test kbhj=706) SERUM TEJAL ID (BEAKER) (test No monoclonal bands detected. ondk=6993) Polyclonal distribution of normal immunoglobulins. [id number] ([facility]) Carolina Mahan MD (test xscs=6070) (electronic signature) PROTEIN ELECTROPHORESIS, [id number] 13:27:00 Test Item Value Reference Range Comments ALBUMIN FRACTION (BEAKER) 3.2 g/dL 3.5-5.5 (test pqim=062) ALPHA 1 FRACTION (BEAKER) 0.3 g/dL 0.2-0.4 (test vtqz=961) ALPHA 2 FRACTION (BEAKER) 0.5 g/dL 0.5-0.9 (test kwkg=082) BETA FRACTION (BEAKER) (test 1.0 g/dL 0.6-1.1 demt=043) GAMMA GLOBULIN FRACTION 2.0 g/dL 0.7-1.7 (BEAKER) (test noib=178) INTERPRETATION-119 (BEAKER) Slight polyclonal increase in (test gmuh=5599) gamma globulins, suggesting chronic inflammatory state. No monoclonal bands detected. [id number] Carolina Mahan MD (BEAKER) (test aoet=1782) (electronic signature) PROTEIN TOTAL SERUM, SPEP 7.0 gm/dL 6.0-8.3 (BEAKER) (test vjyb=9512) POCT-GLUCOSE [id number] 12:17:00 Test Item Value Reference Range Comments POC-GLUCOSE METER (BEAKER) 117 mg/dL 70-110 TESTED AT [facility] [address] [facility] (test rsht=8099) [facility] [address] CARDIOLIPIN ANTIBODIES, IGG AND [id number] 12:04:00 Test Item Value Reference Range Comments ANTICARDIOLIPIN IGG ANTIBODY (BEAKER) (test < GPL gsvk=120) ANTICARDIOLIPIN IGM ANTIBODY (BEAKER) (test 0.9 MPL rjyq=866) Anticardiolipin IgG Result Interpretation: NEG: <20 GPL; U/ml POS: & gt;/=20 GPL; U/mlAnticardiolipin IgM Result Interpretation: NEG: <20 MPL ; U/ml POS: >/=20 MPL; U/mlOSMOLALITY, [id number] 10:20:00 Test Item Value Reference Range Comments OSMOLALITY URINE (BEAKER) (test xemt=452) 313 mOsm/kg 40-1400 EOSINOPHIL SMEAR, [id number] 10:10:00 Test Item Value Reference Range Comments EOSINOPHIL SMEAR, URINE (BEAKER) Rare EOS=less than 5% WBCs No EOS seen (test ilzt=6226) seen are EOS CREATININE, RANDOM [id number] 08:12:00 Test Item Value Reference Range Comments CREATININE URINE (BEAKER) (test bbvw=664) 136.1 mg/dL Reference Range: No NormalsPROTEIN, RANDOM [id number] 08:12:00 Test Item Value Reference Range Comments PROTEIN, URINE (BEAKER) (test hhlh=9121) 157 mg/dL 0-14 SODIUM, RANDOM [id number] 08:12:00 Test Item Value Reference Range Comments SODIUM URINE (BEAKER) (test sqgu=444) 53 meq/L Reference Range: No NormalsURINALYSIS W/ [id number] 08:12:00 Test Item Value Reference Range Comments COLOR (BEAKER) (test jbum=102) Light Yellow CLARITY (BEAKER) (test loct=164) Hazy SPECIFIC GRAVITY UA (BEAKER) (test kefz=263) 1.005 1.001-1.035 PH UA (BEAKER) (test fzfc=556) 5.0 5.0-8.0 PROTEIN UA (BEAKER) (test ukyy=711) Negative Negative GLUCOSE UA (BEAKER) (test cdxd=400) 70 mg/dL Negative KETONES UA (BEAKER) (test ujzo=313) Negative Negative BILIRUBIN UA (BEAKER) (test ered=398) Negative Negative BLOOD UA (BEAKER) (test rvij=302) Large Negative NITRITE UA (BEAKER) (test mauk=888) Negative Negative LEUKOCYTE ESTERASE UA (BEAKER) (test wers=305) Trace Negative UROBILINOGEN UA (BEAKER) (test nsaa=946) 0.2 mg/dL 0.2-1.0 RBC UA (BEAKER) (test tyzk=179) > /HPF WBC UA (BEAKER) (test zjdb=308) 117 /HPF HYALINE CASTS (BEAKER) (test avry=916) 32 /LPF YEAST (BEAKER) (test vibk=8811) Many SOURCE(BEAKER) (test dhxl=5567) BASIC METABOLIC [id number] 04:45:00 Test Item Value Reference Range Comments SODIUM (BEAKER) (test 133 meq/L 136-145 zaio=665) POTASSIUM (BEAKER) (test 5.0 meq/L 3.5-5.1 itrg=614) CHLORIDE (BEAKER) (test 99 meq/L 98-107 hwir=271) CO2 (BEAKER) (test 23 meq/L 22-29 nuys=603) BLOOD UREA NITROGEN 44 mg/dL 7-21 (BEAKER) (test amdb=016) CREATININE (BEAKER) (test 2.91 mg/dL 0.57-1.25 qeay=917) GLUCOSE RANDOM (BEAKER) 98 mg/dL 70-105 (test ivre=278) CALCIUM (BEAKER) (test 8.3 mg/dL 8.4-10.2 azav=814) EGFR (BEAKER) (test mL/min/1.73 sq m INSUFFICIENT CLINICAL DATA zzno=5231) TO CALCULATE ESTIMATED GFR. PROTHROMBIN [id number] 04:30:00 Test Item Value Reference Range Comments PROTIME (BEAKER) (test eive=378) 21.7 seconds 11.7-14.7 INR (BEAKER) (test xuft=204) 1.9 <=5.9 RECOMMENDED COUMADIN/WARFARIN INR THERAPY RANGESSTANDARD DOSE: 2.0 - 3.0 Includes: PROPHYLAXIS forvenous thrombosis, systemic embolization; TREATMENT for venous thrombosis and/or pulmonary embolus.HIGH RISK: Target INR is 2.5-3.5 for patients with mechanical heart valves.[id number] 04:30:00 Test Item Value Reference Range Comments PARTIAL THROMBOPLASTIN TIME (BEAKER) (test 35.9 seconds 22.5-36.0 qsbt=135) [id number] 04:30:00 Test Item Value Reference Range Comments FIBRINOGEN LEVEL (BEAKER) (test sxec=702) 216 mg/dl 225-434 CBC W/PLT COUNT & AUTO [id number] 04:29:00 Test Item Value Reference Range Comments WHITE BLOOD CELL COUNT (BEAKER) (test apek=979) 4.9 K/ L 4.0-10.0 RED BLOOD CELL COUNT (BEAKER) (test pdpx=831) 3.05 M/ L 4.20-5.80 HEMOGLOBIN (BEAKER) (test vbeo=960) 10.0 GM/DL 13.0-16.8 HEMATOCRIT (BEAKER) (test eczh=153) 30.8 % 40.0-50.0 MEAN CORPUSCULAR VOLUME (BEAKER) (test ktgg=553) 101.0 fL 82.0-98.0 MEAN CORPUSCULAR HEMOGLOBIN (BEAKER) (test 32.7 pg 27.0-33.0 dmie=569) MEAN CORPUSCULAR HEMOGLOBIN CONC (BEAKER) (test 32.4 GM/DL 32.0-36.0 fywa=394) RED CELL DISTRIBUTION WIDTH (BEAKER) (test 14.3 % 10.3-14.2 hddn=903) PLATELET COUNT (BEAKER) (test dvuk=560) 13 K/CU MM 150-430 MEAN PLATELET VOLUME (BEAKER) (test tfty=683) 11.2 fL 6.5-10.5 NUCLEATED RED BLOOD CELLS (BEAKER) (test 0 /100 WBC 0-0 hfdm=996) NEUTROPHILS RELATIVE PERCENT (BEAKER) (test 75 % sifk=780) LYMPHOCYTES RELATIVE PERCENT (BEAKER) (test 8 % wlqm=635) MONOCYTES RELATIVE PERCENT (BEAKER) (test 14 % intc=888) EOSINOPHILS RELATIVE PERCENT (BEAKER) (test 3 % dfbh=020) BASOPHILS RELATIVE PERCENT (BEAKER) (test 0 % fbed=011) NEUTROPHILS ABSOLUTE COUNT (BEAKER) (test 3.66 K/ L 1.80-8.00 douz=363) LYMPHOCYTES ABSOLUTE COUNT (BEAKER) (test 0.41 K/ L 1.48-4.50 qmwt=285) MONOCYTES ABSOLUTE COUNT (BEAKER) (test hxfv=776) 0.70 K/ L 0.00-1.30 EOSINOPHILS ABSOLUTE COUNT (BEAKER) (test 0.13 K/ L 0.00-0.50 nukp=285) BASOPHILS ABSOLUTE COUNT (BEAKER) (test byas=543) 0.01 K/ L 0.00-0.20 0.00HEPATITIS A ANTIBODY, [id number] 01:44:00 Test Item Value Reference Range Comments HEPATITIS A IGG ANTIBODY (BEAKER) (test mfau=2302) Reactive Nonreactive HEPATITIS B SURFACE [id number] 01:41:00 Test Item Value Reference Range Comments HEPATITIS B SURFACE ANTIGEN (2) (BEAKER) (test Nonreactive Nonreactive atxc=8566) HEPATITIS B SURFACE [id number] 01:41:00 Test Item Value Reference Range Comments HEPATITIS B SURFACE ANTIBODY (BEAKER) (test 205.5 mIU/mL <8.0 ibcx=150) HEPATITIS C [id number] 01:41:00 Test Item Value Reference Range Comments HEPATITIS C ANTIBODY (BEAKER) (test rljb=962) Nonreactive Nonreactive HIV-1 ANTIGEN WITH HIV-1/2 [id number] 01:41:00 Test Item Value Reference Range Comments HIV-1 ANTIGEN WITH HIV 1\T\2 ANTIBODY (2) Nonreactive Nonreactive (BEAKER) (test ajhm=4558) POCT-GLUCOSE [id number] 22:22:00 Test Item Value Reference Range Comments POC-GLUCOSE METER (BEAKER) 106 mg/dL 70-110 TESTED AT [facility] [address] [facility] (test vrzc=1224) [facility] [address] CBC W/PLT COUNT & AUTO [id number] 18:31:00 Test Item Value Reference Range Comments WHITE BLOOD CELL COUNT (BEAKER) (test jyaf=416) 5.4 K/ L 4.0-10.0 RED BLOOD CELL COUNT (BEAKER) (test oiyg=294) 3.16 M/ L 4.20-5.80 HEMOGLOBIN (BEAKER) (test ckup=791) 10.3 GM/DL 13.0-16.8 HEMATOCRIT (BEAKER) (test brqb=653) 32.1 % 40.0-50.0 MEAN CORPUSCULAR VOLUME (BEAKER) (test gfkl=753) 102.0 fL 82.0-98.0 MEAN CORPUSCULAR HEMOGLOBIN (BEAKER) (test 32.5 pg 27.0-33.0 yqdi=829) MEAN CORPUSCULAR HEMOGLOBIN CONC (BEAKER) (test 32.0 GM/DL 32.0-36.0 anwt=013) RED CELL DISTRIBUTION WIDTH (BEAKER) (test 14.2 % 10.3-14.2 krdr=403) PLATELET COUNT (BEAKER) (test funh=580) 26 K/CU MM 150-430 MEAN PLATELET VOLUME (BEAKER) (test xvfl=167) 8.7 fL 6.5-10.5 NUCLEATED RED BLOOD CELLS (BEAKER) (test 0 /100 WBC 0-0 jogu=420) NEUTROPHILS RELATIVE PERCENT (BEAKER) (test 81 % oibn=829) LYMPHOCYTES RELATIVE PERCENT (BEAKER) (test 5 % uksi=649) MONOCYTES RELATIVE PERCENT (BEAKER) (test 11 % rbfi=536) EOSINOPHILS RELATIVE PERCENT (BEAKER) (test 3 % zzbv=490) BASOPHILS RELATIVE PERCENT (BEAKER) (test 0 % dwdq=209) NEUTROPHILS ABSOLUTE COUNT (BEAKER) (test 4.37 K/ L 1.80-8.00 boqz=637) LYMPHOCYTES ABSOLUTE COUNT (BEAKER) (test 0.29 K/ L 1.48-4.50 qvhd=329) MONOCYTES ABSOLUTE COUNT (BEAKER) (test ewtq=454) 0.60 K/ L 0.00-1.30 EOSINOPHILS ABSOLUTE COUNT (BEAKER) (test 0.15 K/ L 0.00-0.50 xelz=822) BASOPHILS ABSOLUTE COUNT (BEAKER) (test zkxf=225) 0.01 K/ L 0.00-0.20 0.00POCT-GLUCOSE [id number] 18:27:00 Test Item Value Reference Range Comments POC-GLUCOSE METER (BEAKER) 112 mg/dL 70-110 TESTED AT [facility] [address] [facility] (test zhuy=3035) [facility] [address] HEPATIC FUNCTION [id number] 16:29:00 Test Item Value Reference Range Comments TOTAL PROTEIN (BEAKER) (test gweu=578) 7.7 gm/dL 6.0-8.3 ALBUMIN (BEAKER) (test wmhh=7840) 3.2 g/dL 3.5-5.0 BILIRUBIN TOTAL (BEAKER) (test qjua=108) 1.0 mg/dL 0.2-1.2 BILIRUBIN DIRECT (BEAKER) (test eelm=629) 0.7 mg/dL 0.1-0.5 ALKALINE PHOSPHATASE (BEAKER) (test zizj=196) 148 U/L 40-150 AST (SGOT) (BEAKER) (test cwdq=680) 26 U/L 5-34 ALT (SGPT) (BEAKER) (test vwbh=382) 12 U/L 6-55 CBC (HEMOGRAM ONLY)[id number] 15:34:00 Test Item Value Reference Range Comments WHITE BLOOD CELL COUNT (BEAKER) (test nzsq=895) 4.3 K/ L 4.0-10.0 RED BLOOD CELL COUNT (BEAKER) (test hnkl=592) 3.26 M/ L 4.20-5.80 HEMOGLOBIN (BEAKER) (test wnbo=383) 10.5 GM/DL 13.0-16.8 HEMATOCRIT (BEAKER) (test quhn=892) 33.0 % 40.0-50.0 MEAN CORPUSCULAR VOLUME (BEAKER) (test wade=094) 102.0 fL 82.0-98.0 MEAN CORPUSCULAR HEMOGLOBIN (BEAKER) (test 32.3 pg 27.0-33.0 wupe=465) MEAN CORPUSCULAR HEMOGLOBIN CONC (BEAKER) (test 31.8 GM/DL 32.0-36.0 ljlt=415) RED CELL DISTRIBUTION WIDTH (BEAKER) (test 13.7 % 10.3-14.2 qtqy=142) PLATELET COUNT (BEAKER) (test ryay=811) 9 K/CU MM 150-430 MEAN PLATELET VOLUME (BEAKER) (test yglg=566) 12.6 fL 6.5-10.5 NUCLEATED RED BLOOD CELLS (BEAKER) (test 0 /100 WBC 0-0 ciqv=879) [id number] 14:58:00 Test Item Value Reference Range Comments PROSTATE SPECIFIC ANTIGEN (BEAKER) (test gflf=362) 0.2 ng/mL 0.0-4.0 CHLORIDE, RANDOM [id number] 14:10:00 Test Item Value Reference Range Comments CHLORIDE URINE (BEAKER) (test hedl=642) 27 meq/L Reference Range: No NormalsCREATININE, RANDOM [id number] 14:10:00 Test Item Value Reference Range Comments CREATININE URINE (BEAKER) (test yhqa=506) 192.5 mg/dL Reference Range: No NormalsPROTEIN, RANDOM [id number] 14:10:00 Test Item Value Reference Range Comments PROTEIN, URINE (BEAKER) (test szbv=9661) 72 mg/dL 0-14 SODIUM, RANDOM [id number] 14:10:00 Test Item Value Reference Range Comments SODIUM URINE (BEAKER) (test ienw=803) 28 meq/L Reference Range: No NormalsOSMOLALITY, [id number] 13:51:00 Test Item Value Reference Range Comments OSMOLALITY URINE (BEAKER) (test tqms=970) 307 mOsm/kg 40-1400 [id number] 05:52:00 Test Item Value Reference Range Comments FERRITIN (BEAKER) (test aasm=092) 159 ng/mL 5-275 Effective 05/09/2014: Reference Range ChangeNew: Male 5-275 Previous: Male 22-322 Female 5-275 Female 10-291VITAMIN B12 AND [id number] 05:52:00 Test Item Value Reference Range Comments VITAMIN B12 (BEAKER) (test jvwb=360) 1060 pg/mL 213-816 FOLATE (BEAKER) (test zjdc=265) 6.4 ng/mL >=7.0 Effective 05/09/2014: Folate Reference Range ChangeNew: >=7.0 Previous: & gt;=5.4IRON, TIBC, % SAT. (WITHOUT FERRITIN)2016-09-07 05:28:00 Test Item Value Reference Range Comments IRON (BEAKER) (test otuu=951) 48 ug/dL 40-160 TOTAL IRON BINDING CAPACITY (BEAKER) (test 340 ug/dL 250-450 enll=091) IRON % SATURATION (2) (BEAKER) (test usqn=0100) 14 % 20-55 BASIC METABOLIC [id number] 04:51:00 Test Item Value Reference Range Comments SODIUM (BEAKER) (test 135 meq/L 136-145 qtav=461) POTASSIUM (BEAKER) (test 5.3 meq/L 3.5-5.1 xwfg=740) CHLORIDE (BEAKER) (test 101 meq/L 98-107 ngoz=078) CO2 (BEAKER) (test 23 meq/L 22-29 eaot=616) BLOOD UREA NITROGEN 38 mg/dL 7-21 (BEAKER) (test rltc=363) CREATININE (BEAKER) (test 2.76 mg/dL 0.57-1.25 lyjo=668) GLUCOSE RANDOM (BEAKER) 109 mg/dL 70-105 (test wiev=014) CALCIUM (BEAKER) (test 8.2 mg/dL 8.4-10.2 jplw=647) EGFR (BEAKER) (test mL/min/1.73 sq m INSUFFICIENT CLINICAL DATA xzqp=1525) TO CALCULATE ESTIMATED GFR. CBC W/PLT COUNT & AUTO [id number] 04:28:00 Test Item Value Reference Range Comments WHITE BLOOD CELL COUNT (BEAKER) (test vlcs=856) 4.6 K/ L 4.0-10.0 RED BLOOD CELL COUNT (BEAKER) (test berj=763) 3.08 M/ L 4.20-5.80 HEMOGLOBIN (BEAKER) (test lset=985) 10.0 GM/DL 13.0-16.8 HEMATOCRIT (BEAKER) (test mshv=125) 31.4 % 40.0-50.0 MEAN CORPUSCULAR VOLUME (BEAKER) (test kiye=865) 102.0 fL 82.0-98.0 MEAN CORPUSCULAR HEMOGLOBIN (BEAKER) (test 32.5 pg 27.0-33.0 fgwu=164) MEAN CORPUSCULAR HEMOGLOBIN CONC (BEAKER) (test 31.9 GM/DL 32.0-36.0 chfg=949) RED CELL DISTRIBUTION WIDTH (BEAKER) (test 13.6 % 10.3-14.2 nggs=304) PLATELET COUNT (BEAKER) (test ljny=722) 12 K/CU MM 150-430 MEAN PLATELET VOLUME (BEAKER) (test ojvm=998) 11.8 fL 6.5-10.5 NUCLEATED RED BLOOD CELLS (BEAKER) (test 0 /100 WBC 0-0 uxpa=205) NEUTROPHILS RELATIVE PERCENT (BEAKER) (test 70 % uyxb=889) LYMPHOCYTES RELATIVE PERCENT (BEAKER) (test 11 % uwpn=886) MONOCYTES RELATIVE PERCENT (BEAKER) (test 15 % wasd=537) EOSINOPHILS RELATIVE PERCENT (BEAKER) (test 4 % tiac=528) BASOPHILS RELATIVE PERCENT (BEAKER) (test 0 % uafn=737) NEUTROPHILS ABSOLUTE COUNT (BEAKER) (test 3.19 K/ L 1.80-8.00 migf=276) LYMPHOCYTES ABSOLUTE COUNT (BEAKER) (test 0.49 K/ L 1.48-4.50 hzrs=707) MONOCYTES ABSOLUTE COUNT (BEAKER) (test gakj=135) 0.70 K/ L 0.00-1.30 EOSINOPHILS ABSOLUTE COUNT (BEAKER) (test 0.17 K/ L 0.00-0.50 uvss=870) BASOPHILS ABSOLUTE COUNT (BEAKER) (test czxl=982) 0.00 K/ L 0.00-0.20 0.00PROTHROMBIN TIME/[id number] 04:16:00 Test Item Value Reference Range Comments PROTIME (BEAKER) (test dkds=980) 20.8 seconds 11.7-14.7 INR (BEAKER) (test cofr=833) 1.8 <=5.9 RECOMMENDED COUMADIN/WARFARIN INR THERAPY RANGESSTANDARD DOSE: 2.0 - 3.0 Includes: PROPHYLAXIS forvenous thrombosis, systemic embolization; TREATMENT for venous thrombosis and/or pulmonary embolus.HIGH RISK: Target INR is 2.5-3.5 for patients with mechanical heart valves.[id number] 04:16:00 Test Item Value Reference Range Comments PARTIAL THROMBOPLASTIN TIME (BEAKER) (test 39.2 seconds 22.5-36.0 jkka=638) VITAMIN B12 AND [id number] 16:41:00 Test Item Value Reference Range Comments VITAMIN B12 (BEAKER) (test ewub=228) 860 pg/mL 213-816 FOLATE (BEAKER) (test vofz=120) 8.0 ng/mL >=7.0 Effective 05/09/2014: Folate Reference Range ChangeNew: >=7.0 Previous: & gt;=[id number] 15:47:00 Test Item Value Reference Range Comments FERRITIN (BEAKER) (test onai=862) 148 ng/mL 5-275 Effective 05/09/2014: Reference Range ChangeNew: Male 5-275 Previous: Male 22-322 Female 5-275 Female 10-291HEPATITIS B [id number] 14:54:00 Test Item Value Reference Range Comments HEPATITIS B CORE TOTAL ANTIBODY (BEAKER) (test Nonreactive Nonreactive gkve=174) HEPATITIS B SURFACE ANTIBODY (BEAKER) (test < mIU/mL <8.0 tfsu=736) HEPATITIS B SURFACE ANTIGEN (2) (BEAKER) (test Nonreactive Nonreactive faej=4414) HEPATITIS C [id number] 14:14:00 Test Item Value Reference Range Comments HEPATITIS C ANTIBODY (BEAKER) (test bfjq=194) Nonreactive Nonreactive HIV-1 ANTIGEN WITH HIV-1/2 [id number] 13:54:00 Test Item Value Reference Range Comments HIV-1 ANTIGEN WITH HIV 1\T\2 ANTIBODY (2) Nonreactive Nonreactive (BEAKER) (test effs=1790) [id number] 13:39:00 Test Item Value Reference Range Comments D-DIMER QUANTITATIVE (BEAKER) (test fnjz=898) 8.70 MG/L FEU <0.50 Intended Use: The [...] exclusion of thrombosis is within 95-100% range.URIC [id number] 13:31:00 Test Item Value Reference Range Comments URIC ACID (BEAKER) (test xhtm=632) 10.2 mg/dL 2.6-7.2 LACTATE DEHYDROGENASE (LDH)2016-09-06 13:31:00 Test Item Value Reference Range Comments LACTATE DEHYDROGENASE (BEAKER) (test bsvp=000) 199 U/L 125-220 [id number] 13:30:00 Test Item Value Reference Range Comments FIBRINOGEN LEVEL (BEAKER) (test rivf=940) 281 mg/dl 225-434 RAPID DRUG SCREEN, [id number] 12:15:00 Test Item Value Reference Range Comments BARBITURATE URINE (BEAKER) (test cgmi=832) Negative Negative BENZODIAZEPINE SCREEN URINE (BEAKER) (test Negative Negative cwoq=381) COCAINE (METAB.) SCREEN (BEAKER) (test vzif=1992) Negative Negative METHADONE SCREEN (BEAKER) (test aqha=3134) Negative Negative OPIATE SCREEN URINE (BEAKER) (test ciwm=243) Positive Negative CANNABINOID SCREEN URINE (BEAKER) (test wcet=445) Negative Negative AMPH/METHAMPH SCREEN (BEAKER) (test wzsw=4557) Negative Negative PHENCYCLIDINE SCREEN URINE (BEAKER) (test nxio=334) Negative Negative OXYCODONE SCREEN URINE (BEAKER) (test tdfr=5685) Negative Negative DRUG CUTOFF CONC.Cocaine 300 ng/mL Cannabinoid 50 ng/mL Benzodiazepine 200 ng/mLBarbiturate 200 ng/ mLPhencyclidine 25 ng/mLOpiate 300 ng/mLMethadone 300 ng/mLAmphetamine/ 1000 ng/mL MethamphetamineOxycodone 300 ng/mLURINALYSIS W/ [id number] 11:30:00 Test Item Value Reference Range Comments COLOR (BEAKER) (test uoaj=706) Yellow CLARITY (BEAKER) (test rgjo=247) Hazy SPECIFIC GRAVITY UA (BEAKER) (test ugao=389) 1.011 1.001-1.035 PH UA (BEAKER) (test cdqj=867) 5.0 5.0-8.0 PROTEIN UA (BEAKER) (test zgdi=022) 70 mg/dL Negative GLUCOSE UA (BEAKER) (test lirq=136) Negative Negative KETONES UA (BEAKER) (test slos=082) Negative Negative BILIRUBIN UA (BEAKER) (test jknd=104) Negative Negative BLOOD UA (BEAKER) (test udit=376) Negative Negative NITRITE UA (BEAKER) (test roax=576) Negative Negative LEUKOCYTE ESTERASE UA (BEAKER) (test khcg=578) Negative Negative UROBILINOGEN UA (BEAKER) (test bpel=358) 2.0 mg/dL 0.2-1.0 RBC UA (BEAKER) (test akam=814) < /HPF WBC UA (BEAKER) (test rosq=210) 2 /HPF BACTERIA (BEAKER) (test gftq=084) Occasional MUCUS (BEAKER) (test gpqa=0772) Rare SQUAMOUS EPITHELIAL (BEAKER) (test ajwg=117) 1 /HPF HYALINE CASTS (BEAKER) (test figi=859) 135 /LPF CASTS (BEAKER) (test yyxc=7634) 8 /LPF SOURCE(BEAKER) (test ncqj=6321) Urine, Voided PLATELET [id number] 09:02:00 Test Item Value Reference Range Comments PLATELET COUNT (BEAKER) (test lnfh=185) 11 K/CU MM 150-430 POCT-GLUCOSE [id number] 08:00:00 Test Item Value Reference Range Comments POC-GLUCOSE METER (BEAKER) 92 mg/dL 70-110 TESTED AT [facility] [address] [facility] (test rwpm=0280) [facility] [address] CBC W/PLT COUNT & AUTO [id number] 07:24:00 Test Item Value Reference Range Comments WHITE BLOOD CELL COUNT (BEAKER) (test lrjd=609) 5.2 K/ L 4.0-10.0 RED BLOOD CELL COUNT (BEAKER) (test axqk=794) 3.48 M/ L 4.20-5.80 HEMOGLOBIN (BEAKER) (test exmt=541) 10.8 GM/DL 13.0-16.8 HEMATOCRIT (BEAKER) (test qdrb=442) 34.6 % 40.0-50.0 MEAN CORPUSCULAR VOLUME (BEAKER) (test upmz=124) 99.4 fL 82.0-98.0 MEAN CORPUSCULAR HEMOGLOBIN (BEAKER) (test 30.9 pg 27.0-33.0 deav=538) MEAN CORPUSCULAR HEMOGLOBIN CONC (BEAKER) (test 31.1 GM/DL 32.0-36.0 mxog=789) RED CELL DISTRIBUTION WIDTH (BEAKER) (test 14.3 % 10.3-14.2 sdku=733) PLATELET COUNT (BEAKER) (test kmmj=450) 9 K/CU MM 150-430 MEAN PLATELET VOLUME (BEAKER) (test ezlm=206) 10.7 fL 6.5-10.5 NUCLEATED RED BLOOD CELLS (BEAKER) (test 0 /100 WBC 0-0 ukdu=640) NEUTROPHILS RELATIVE PERCENT (BEAKER) (test 76 % wlbp=259) LYMPHOCYTES RELATIVE PERCENT (BEAKER) (test 8 % qwqu=317) MONOCYTES RELATIVE PERCENT (BEAKER) (test 13 % cqeq=841) EOSINOPHILS RELATIVE PERCENT (BEAKER) (test 3 % bhan=932) BASOPHILS RELATIVE PERCENT (BEAKER) (test 0 % srwk=678) NEUTROPHILS ABSOLUTE COUNT (BEAKER) (test 3.95 K/ L 1.80-8.00 eczt=968) LYMPHOCYTES ABSOLUTE COUNT (BEAKER) (test 0.42 K/ L 1.48-4.50 lhcl=062) MONOCYTES ABSOLUTE COUNT (BEAKER) (test mlek=933) 0.67 K/ L 0.00-1.30 EOSINOPHILS ABSOLUTE COUNT (BEAKER) (test 0.14 K/ L 0.00-0.50 zvfo=190) BASOPHILS ABSOLUTE COUNT (BEAKER) (test aqxz=851) 0.00 K/ L 0.00-0.20 0.00BASIC METABOLIC [id number] 06:16:00 Test Item Value Reference Range Comments SODIUM (BEAKER) (test 134 meq/L 136-145 oqhk=202) POTASSIUM (BEAKER) (test 5.2 meq/L 3.5-5.1 hken=402) CHLORIDE (BEAKER) (test 100 meq/L 98-107 vzrf=703) CO2 (BEAKER) (test 24 meq/L 22-29 vcad=397) BLOOD UREA NITROGEN 31 mg/dL 7-21 (BEAKER) (test hxau=587) CREATININE (BEAKER) (test 1.54 mg/dL 0.57-1.25 jbym=937) GLUCOSE RANDOM (BEAKER) 99 mg/dL 70-105 (test qwal=893) CALCIUM (BEAKER) (test 8.7 mg/dL 8.4-10.2 fvrf=741) EGFR (BEAKER) (test mL/min/1.73 sq m INSUFFICIENT CLINICAL DATA sgua=4461) TO CALCULATE ESTIMATED GFR. CREATINE KINASE (CK), TOTAL AND [id number] 06:14:00 Test Item Value Reference Range Comments CREATINE KINASE TOTAL (BEAKER) (test tngp=633) 67 U/L 29-200 CREATINE KINASE-MB (BEAKER) (test cutp=487) 1.9 ng/mL 0.0-6.6 CREATINE KINASE-MB INDEX (BEAKER) (test ktxd=998) 2.8 % Effective 05/09/2014: CK-MB Reference Range ChangeNew: 0.0-6.6 Previous: 0.0- 4.9CK-MB Reference Range:<6.7 Normal6.7-10.0 Borderline>10.0 AbnormalTROPONIN [id number] 06:14:00 Test Item Value Reference Range Comments TROPONIN I (BEAKER) (test oweg=312) 0.02 ng/mL 0.00-0.03 Effective 05/09/2014: Reference Range [...] renalfailure, acidosis, acute neurological disease, and persistent tachyarrhythmia.[id number] 05:40:00 Test Item Value Reference Range Comments PARTIAL THROMBOPLASTIN TIME (BEAKER) (test 35.1 seconds 22.5-36.0 klvo=108) PROTHROMBIN [id number] 05:39:00 Test Item Value Reference Range Comments PROTIME (BEAKER) (test pmzd=461) 18.1 seconds 11.7-14.7 INR (BEAKER) (test gahh=346) 1.5 <=5.9 RECOMMENDED COUMADIN/WARFARIN INR THERAPY RANGESSTANDARD DOSE: 2.0 - 3.0 Includes: PROPHYLAXIS forvenous thrombosis, systemic embolization; TREATMENT for venous thrombosis and/or pulmonary embolus.HIGH RISK: Target INR is 2.5-3.5 for patients with mechanical heart valves.T4, [id number] 03:16:00 Test Item Value Reference Range Comments FREE T4 (BEAKER) (test gpqe=808) 1.45 ng/dL 0.70-1.48 TSH/FREE T4 IF [id number] 02:21:00 Test Item Value Reference Range Comments THYROID STIMULATING HORMONE (BEAKER) (test 6.77 uIU/mL 0.35-4.94 jhal=571) CREATINE KINASE (CK), TOTAL AND [id number] 01:14:00 Test Item Value Reference Range Comments CREATINE KINASE TOTAL (BEAKER) (test xxji=549) 76 U/L 29-200 CREATINE KINASE-MB (BEAKER) (test vqxf=673) 1.7 ng/mL 0.0-6.6 CREATINE KINASE-MB INDEX (BEAKER) (test oevw=412) 2.2 % Effective 05/09/2014: CK-MB Reference Range ChangeNew: 0.0-6.6 Previous: 0.0- 4.9CK-MB Reference Range:<6.7 Normal6.7-10.0 Borderline>10.0 AbnormalTROPONIN [id number] 01:14:00 Test Item Value Reference Range Comments TROPONIN I (BEAKER) (test puxz=188) 0.02 ng/mL 0.00-0.03 Effective 05/09/2014: Reference Range [...] acidosis, acute neurological disease, and persistent tachyarrhythmia.LIPID [id number] 01:08 :00 Test Item Value Reference Range Comments TRIGLYCERIDES (BEAKER) (test ipse=079) 82 mg/dL CHOLESTEROL (BEAKER) (test lkxo=784) 145 mg/dL HDL CHOLESTEROL (BEAKER) (test oqot=975) 49 mg/dL LDL CHOLESTEROL CALCULATED (BEAKER) (test 80 mg/dL xtcu=759) Triglyceride Reference Range: Low Risk <150 Borderline 150- 199 High Risk 200-499 Very High Risk >=500Cholesterol Reference Range: Low Risk <200 Borderline 200-239 High Risk > 240HDL Cholesterol Reference Range: Low Risk >=60 High Risk <40LDL Cholesterol Reference Range: Optimal <100 Near Optimal 100-129 Borderline 130-159 High 160-189 Very High >=190 Specimen slightly ictericDIGOXIN [id number] 18:22:00 Test Item Value Reference Range Comments DIGOXIN LEVEL (BEAKER) (test fxcx=624) 0.8 ng/mL 0.8-2.0 CREATINE KINASE (CK), TOTAL AND [id number] 17:51:00 Test Item Value Reference Range Comments CREATINE KINASE TOTAL (BEAKER) (test bsgf=419) 78 U/L 29-200 CREATINE KINASE-MB (BEAKER) (test xfay=436) 1.9 ng/mL 0.0-6.6 CREATINE KINASE-MB INDEX (BEAKER) (test iift=732) 2.4 % Effective 05/09/2014: CK-MB Reference Range ChangeNew: 0.0-6.6 Previous: 0.0- 4.9CK-MB Reference Range:<6.7 Normal6.7-10.0 Borderline>10.0 AbnormalTROPONIN [id number] 17:51:00 Test Item Value Reference Range Comments TROPONIN I (BEAKER) (test lpfj=149) 0.03 ng/mL 0.00-0.03 Effective 05/09/2014: Reference Range [...] NATRIURETIC PEPTIDE (BEAKER) (test 334 pg/mL 0-100 xlev=648) BASIC METABOLIC [id number] 17:49:00 Test Item Value Reference Range Comments SODIUM (BEAKER) (test 136 meq/L 136-145 wlbu=797) POTASSIUM (BEAKER) (test 5.4 meq/L 3.5-5.1 fieb=127) CHLORIDE (BEAKER) (test 101 meq/L 98-107 rihf=611) CO2 (BEAKER) (test 27 meq/L 22-29 bfyi=808) BLOOD UREA NITROGEN 26 mg/dL 7-21 (BEAKER) (test elnl=956) CREATININE (BEAKER) (test 1.10 mg/dL 0.57-1.25 uzjp=897) GLUCOSE RANDOM (BEAKER) 105 mg/dL 70-105 (test pewf=302) CALCIUM (BEAKER) (test 8.9 mg/dL 8.4-10.2 lkts=266) EGFR (BEAKER) (test mL/min/1.73 sq m INSUFFICIENT CLINICAL DATA uhiw=7622) TO CALCULATE ESTIMATED GFR. [id number] 17:45:00 Test Item Value Reference Range Comments LIPASE (BEAKER) (test uoeu=252) 43 U/L 8-78 ALT (SGPT)2016-09-05 17:45:00 Test Item Value Reference Range Comments ALT (SGPT) (BEAKER) (test vcvo=938) 14 U/L 6-55 AST (SGOT)2016-09-05 17:45:00 Test Item Value Reference Range Comments AST (SGOT) (BEAKER) (test urdx=832) 33 U/L 5-34 BILIRUBIN, ADULT [id number] 17:45:00 Test Item Value Reference Range Comments BILIRUBIN TOTAL (BEAKER) (test qyxc=179) 2.0 mg/dL 0.2-1.2 PROTHROMBIN [id number] 17:38:00 Test Item Value Reference Range Comments PROTIME (BEAKER) (test dyfl=778) 20.2 seconds 11.7-14.7 INR (BEAKER) (test godt=414) 1.7 <=5.9 RECOMMENDED COUMADIN/WARFARIN INR THERAPY RANGESSTANDARD DOSE: 2.0 - 3.0 Includes: PROPHYLAXIS forvenous thrombosis, systemic embolization; TREATMENT for venous thrombosis and/or pulmonary embolus.HIGH RISK: Target INR is 2.5-3.5 for patients with mechanical heart valves.CBC W/PLT COUNT & AUTO [id number] 17:35:00 Test Item Value Reference Range Comments WHITE BLOOD CELL COUNT (BEAKER) (test tzmy=731) 5.9 K/ L 4.0-10.0 RED BLOOD CELL COUNT (BEAKER) (test zmqn=830) 3.49 M/ L 4.20-5.80 HEMOGLOBIN (BEAKER) (test fzjb=567) 11.2 GM/DL 13.0-16.8 HEMATOCRIT (BEAKER) (test bzer=184) 34.4 % 40.0-50.0 MEAN CORPUSCULAR VOLUME (BEAKER) (test cwdw=188) 98.8 fL 82.0-98.0 MEAN CORPUSCULAR HEMOGLOBIN (BEAKER) (test 32.2 pg 27.0-33.0 meef=606) MEAN CORPUSCULAR HEMOGLOBIN CONC (BEAKER) (test 32.6 GM/DL 32.0-36.0 awhv=001) RED CELL DISTRIBUTION WIDTH (BEAKER) (test 13.7 % 10.3-14.2 fpcn=487) PLATELET COUNT (BEAKER) (test mnxt=809) 28 K/CU MM 150-430 MEAN PLATELET VOLUME (BEAKER) (test file=264) 9.0 fL 6.5-10.5 NUCLEATED RED BLOOD CELLS (BEAKER) (test 0 /100 WBC 0-0 dfmt=044) NEUTROPHILS RELATIVE PERCENT (BEAKER) (test 78 % qndf=962) LYMPHOCYTES RELATIVE PERCENT (BEAKER) (test 8 % mbzv=821) MONOCYTES RELATIVE PERCENT (BEAKER) (test 10 % gtgm=290) EOSINOPHILS RELATIVE PERCENT (BEAKER) (test 4 % cayc=256) BASOPHILS RELATIVE PERCENT (BEAKER) (test 0 % vdse=536) NEUTROPHILS ABSOLUTE COUNT (BEAKER) (test 4.58 K/ L 1.80-8.00 mcvm=337) LYMPHOCYTES ABSOLUTE COUNT (BEAKER) (test 0.45 K/ L 1.48-4.50 rwzt=209) MONOCYTES ABSOLUTE COUNT (BEAKER) (test sfjd=849) 0.61 K/ L 0.00-1.30 EOSINOPHILS ABSOLUTE COUNT (BEAKER) (test 0.23 K/ L 0.00-0.50 ciau=530) BASOPHILS ABSOLUTE COUNT (BEAKER) (test hhra=538) 0.02 K/ L 0.00-0.20 0.00
[2018-01-31] MEDS ORDERED: NA CHLORIDE 0.9% 500 ML ONE (22:12)
[2018-01-31] MEDS ORDERED: VANCOMYCIN 1 GM/250 ML BAG ONE (22:12)
[2018-01-31] MEDS ORDERED: CEFTRIAXONE/SWI 1gm 1 GM/10 ML SYR ONE (22:13)
[2018-01-31 22:20] LABS: Absolute Lymphocytes (CBC) 0.4 K/uL (0.7-4.9); Absolute Monocytes 0.6 K/uL (0.1-1.3); Basophils % 0.3 % (0-1.3); Eosinophils % 7.5 % (0-4.4); Hematocrit 25.5 % (39.6-49.0); Lymphocytes % 8.7 % (15.3-44.8); MCH 29.5 pg (27.0-35.0); MCV 90.6 fL (80-100); MPV 8.3 fL (7.6-11.3); RBC Red Blood Cell Count 2.81 M/uL (4.33-5.43)
[2018-01-31 22:26] LABS: Protime INR 1.69
[2018-01-31 22:45] LABS: Albumin 2.5 g/dL (3.4-5.0); Bilirubin Direct 0.3 mg/dL (0-0.2); Bilirubin Total 0.4 mg/dL (0.2-1.0); Potassium 5.4 mmol/L (3.5-5.1); Protein, Total 7.9 g/dL (6.4-8.2)
[2018-01-31 23:59] LABS: Urine Blood NEGATIVE (NEG); Urine Glucose NEGATIVE (NEG); Urine Protein 2+ (NEG); Urine Specific Gravity >1.030 (1.005-1.030); Urine pH 5.5 (5.0-7.0)
--- NOTE | 2018-02-01 00:39 | ER ---
Nurse's Notes [facility] Name: Gatito Gunn Age: 57 yrs Sex: Male : 1960 Arrival Date: 01/31/2018 Time: 21:05 Bed 4 Private MD: Diagnosis: Fever, unspecified;Cellulitis of abdominal wall Presentation: 01/31 21:07 Presenting complaint: Patient states: Abdominal swelling for the past 4 days. Patient aj1 has cirrhosis, and states his past paracentesis was one month ago. Reports abdominal pain, vomiting, and shortness of breath. Denies dizziness, syncope. 4+ edema noted to bilateral lower legs. JVD distension noted. Transition of care: patient was not received from another setting of care. Onset of symptoms was January 27, 2018. Risk Assessment: Do you want to hurt yourself or someone else? Patient reports no desire to harm self or others. Initial Sepsis Screen: Does the patient meet any 2 criteria? No. Patient's initial sepsis screen is negative. Does the patient have a suspected source of infection? No. Patient's initial sepsis screen is negative. Care prior to arrival: None. 21:07 Method Of Arrival: Wheelchair aj1 21:07 Acuity: LAURO 3 aj1 21:[address] Lockhart in [place]. ak1 Triage Assessment: 21:15 General: Appears in no apparent distress. uncomfortable, Behavior is calm, cooperative, aj1 appropriate for age. Pain: Complains of pain in abdomen Pain currently is 10 out of 10 on a pain scale. Neuro: Level of Consciousness is awake, alert, obeys commands. Cardiovascular: Patient's skin is warm and dry. Respiratory: Airway is patent Respiratory effort is even, unlabored, Respiratory pattern is regular, symmetrical. GI: Abdomen is distended, Reports nausea, vomiting. Historical: - Allergies: 21:15 No Known Allergies; aj1 - Home Meds: 21:15 acetaminophen-codeine 300-30 mg Oral tab 1 tab every 6 hours [Active]; atorvastatin 20 aj1 mg Oral tab 1 tab once daily [Active]; carvedilol 12.5 mg Oral tab 1 tab daily [Active]; digoxin 250 mcg Oral tab 1 tab once daily [Active]; erythromycin 5 mg/gram (0.5 %) Opht oint 4 times per day [Active]; furosemide 40 mg Oral tab 1 tab once daily [Active]; lactulose 10 gram/15 mL (15 mL) Oral soln 15 mL once daily [Active]; levothyroxine 125 mcg tab 1 tab once daily [Active]; Santyl 250 unit/gram Topical oint once daily [Active]; spironolactone 50 mg Oral tab 1 tab 2 times per day [Active]; trazodone 50 mg Oral tab 1 tab daily [Active]; warfarin 2.5 mg Oral tab 1 tab once daily [Active]; - PMHx: 21:15 liver failure; Renal Disease; aj1 - Immunization history:: Flu vaccine status is unknown. - Social history:: Smoking status: Patient/guardian denies using tobacco. - Ebola Screening: : No symptoms or risks identified at this time. Screenin:29 Abuse screen: Denies threats or abuse. Denies injuries from another. Nutritional ak1 screening: No deficits noted. Tuberculosis screening: No symptoms or risk factors identified. Fall Risk Gait- Weak (10 pts.). Assessment: 21:40 General: Appears in no apparent distress. uncomfortable, Behavior is calm, cooperative, ao appropriate for age. Pain: Complains of pain in abdomen Pain currently is 8 out of 10 on a pain scale. Neuro: Level of Consciousness is awake, alert, obeys commands, Oriented to person, place, time, situation, Appropriate for age Moves all extremities. Full function Speech is normal, Facial symmetry appears normal. Cardiovascular: Capillary refill < 3 seconds Patient's skin is warm and dry. Respiratory: Airway is patent Respiratory effort is even, unlabored, Respiratory pattern is regular, symmetrical. GI: Abdomen is round noted to have ascites, Bowel sounds present X 4 quads. Abdomen is tender to palpation X 4 quads. : No signs and/or symptoms were reported regarding the genitourinary system. EENT: No signs and/or symptoms were reported regarding the EENT system. Derm: Skin is intact, Skin is pink, warm \T\ dry. normal, Skin temperature is warm. Musculoskeletal: Circulation, motion, and sensation intact. Range of motion: intact in all extremities. 22:55 Reassessment: Patient appears in no apparent distress at this time. Patient and/or ao family updated on plan of care and expected duration. Pain level reassessed. Patient is alert, oriented x 3, equal unlabored respirations, skin warm/dry/pink. 02/01 00:01 Reassessment: Patient and/or family updated on plan of care and expected duration. Pain ao level reassessed. Patient is alert, oriented x 3, equal unlabored respirations, skin warm/dry/pink. Patient to stay in the hospital per Dr Tracey. Patient and had been notified and agree with POC. 01:05 Reassessment: Patient appears in no apparent distress at this time. Patient and/or ao family updated on plan of care and expected duration. Pain level reassessed. Patient is alert, oriented x 3, equal unlabored respirations, skin warm/dry/pink. Waiting on room assignment. 02:27 Reassessment: Called report to FAISAL Rodríguez. Patient to be taken to his room. ao Vital Signs: 01/31 21:15 BP 92 / 55; Pulse 68; Resp 20; Temp 99.4(O); Pulse Ox 95% on 3 lpm NC; Pain 10/10; aj1 22:55 BP 100 / 63; Pulse 75; Resp 24; Pulse Ox 98% ; ao 02/01 00:02 BP 94 / 66; Pulse 75; Resp 14; Pulse Ox 96% on 2 lpm NC; ao 01:05 BP 102 / 62; Pulse 72; Resp 14; Pulse Ox 99% on 2 lpm NC; ao 02:00 BP 117 / 82; Pulse 76; Resp 14; Pulse Ox 98% on 2 lpm NC; ao ED Course: 01/31 21:05 Patient arrived in ED. es 21:13 Triage completed. aj1 21:15 Arm band placed on. aj1 21:28 Andriy Tracey MD is Attending Physician. gs 21:29 Patient has correct armband on for positive identification. Bed in low position. Call ak1 light in reach. Side rails up X2. Adult w/ patient. Pulse ox on. NIBP on. Warm blanket given. 21:29 Oxygen administration via nasal cannula pt uses home oxygen at 3L. ak1 21:43 Theo Fofana, FAISAL is Primary Nurse. ao 22:23 Inserted saline lock: 20 gauge in left antecubital area, using aseptic technique. Blood ao collected. 22:27 Chest Single View XRAY In Process Unspecified. EDMS 22:31 X-ray completed. Portable x-ray completed in exam room. Patient tolerated procedure kp1 well. 02/01 00:20 Radiology exam delayed due to Patient on commode. kw1 00:34 Radiology exam delayed due to Patient still on commode. ED nurse to call when patient pearl is ready to go for CT exam. 00:37 Heike Parra MD is Hospitalizing Provider. gs 00:53 Assisted to bedside commode. ak1 01:[address] via stretcher. kw1 01:36 CT completed. Patient tolerated procedure well. Patient moved back from CT. kw1 02:25 No provider procedures requiring assistance completed. Patient admitted, IV remains in ao place. Administered Medications: 01/31 22:22 Drug: Rocephin - (cefTRIAXone) 1 grams Route: IVPB; Infused Over: 30 mins; Site: left ao antecubital; 22:45 Follow up: IV Status: Completed infusion; IV Intake: 10ml ao 22:22 Drug: vancoMYCIN 1 grams Route: IVPB; Infused Over: 2 hrs; Site: left antecubital; ao 02/01 01:20 Follow up: IV Status: Completed infusion; IV Intake: 250ml ao 01/31 22:22 Drug: NS 0.9% 500 ml Route: IV; Rate: bolus; Site: left antecubital; ao 23:30 Follow up: IV Status: Completed infusion; IV Intake: 500ml ao Point of Care Testing: Blood Glucose: 22:02 Blood Glucose: 82 mg/dL; ak1 Ranges: Intake: 22:45 IV: 10ml; Total: 10ml. ao 23:30 IV: 500ml; Total: 510ml. ao 02/01 01:20 IV: 250ml; Total: 760ml. ao Outcome: 00:38 Decision to Hospitalize by Provider. gs 02:25 Admitted to Tele accompanied by nurse, accompanied by tech, via stretcher, room 416, ao with chart. 02:25 Condition: stable 02:25 Instructed on the need for admit. 02:27 Patient left the ED. ao Signatures: Dispatcher [employer] Senia Antony RN RN [email or web address] Vinita Sol Amber, RN RN ak1 Theo Fofana RN RN ao Poole, Kathy 1 Andriy Tracey MD MD Alexus Montes kw1 Corrections: (The following items were deleted from the chart) 01/31 21:24 21:07 Presenting complaint: Patient states: Abdominal swelling for the past 4 days. aj1 Patient has cirrhosis, and states his past paracentesis was one month ago. Reports abdominal pain, vomiting, and shortness of breath. Denies dizziness, syncope aj1 21: 21:15 BP 92 / 55; Pulse 68bpm; Resp 20bpm; Pulse Ox 95% RA; Temp 99.4F Oral; Pain aj1 03/31; aj1 : 21:07 Presenting complaint: Patient states: Abdominal swelling for the past 4 days. aj1 Patient has cirrhosis, and states his past paracentesis was one month ago. Reports abdominal pain, vomiting, and shortness of breath. Denies dizziness, syncope aj1
--- NOTE | 2018-02-01 00:39 | EDPHYS ---
Physician Documentation [facility] Name: Gatito Gunn Age: 57 yrs Sex: Male : 1960 Arrival Date: 01/31/2018 Time: 21:05 Bed 4 Private MD: ED Physician Andriy Tracey HPI: 02/01 00:31 This 57 yrs old Male presents to ER via Wheelchair with complaints of gs Abdominal Pain. 00:31 The patient presents with abdominal pain abdominal distention. Onset: The gs symptoms/episode began/occurred 2 day(s) ago. The symptoms do not radiate. Associated signs and symptoms: Pertinent positives: fever. The symptoms are described as crampy. Modifying factors: The symptoms are alleviated by nothing, the symptoms are aggravated by nothing. Severity of pain: At its worst the pain was moderate in the emergency department the pain is unchanged. The patient has experienced similar episodes in the past, multiple times. Historical: - Allergies: 01/31 21:15 No Known Allergies; aj1 - Home Meds: 21:15 acetaminophen-codeine 300-30 mg Oral tab 1 tab every 6 hours [Active]; atorvastatin 20 aj1 mg Oral tab 1 tab once daily [Active]; carvedilol 12.5 mg Oral tab 1 tab daily [Active]; digoxin 250 mcg Oral tab 1 tab once daily [Active]; erythromycin 5 mg/gram (0.5 %) Opht oint 4 times per day [Active]; furosemide 40 mg Oral tab 1 tab once daily [Active]; lactulose 10 gram/15 mL (15 mL) Oral soln 15 mL once daily [Active]; levothyroxine 125 mcg tab 1 tab once daily [Active]; Santyl 250 unit/gram Topical oint once daily [Active]; spironolactone 50 mg Oral tab 1 tab 2 times per day [Active]; trazodone 50 mg Oral tab 1 tab daily [Active]; warfarin 2.5 mg Oral tab 1 tab once daily [Active]; - PMHx: 21:15 liver failure; Renal Disease; aj1 - Immunization history:: Flu vaccine status is unknown. - Social history:: Smoking status: Patient/guardian denies using tobacco. - Ebola Screening: : No symptoms or risks identified at this time. ROS: 02/01 00:31 All other systems are negative. gs Exam: 00:31 Head/Face: Normocephalic, atraumatic. ENT: Nares patent. No nasal discharge, no gs septal abnormalities noted. Tympanic membranes are normal and external auditory canals are clear. Oropharynx with no redness, swelling, or masses, exudates, or evidence of obstruction, uvula midline. Mucous membranes moist. Neck: Trachea midline, no thyromegaly or masses palpated, and no cervical lymphadenopathy. Supple, full range of motion without nuchal rigidity, or vertebral point tenderness. No Meningismus. Chest/axilla: Normal chest wall appearance and motion. Nontender with no deformity. No lesions are appreciated. 00:31 Cardiovascular: Regular rate and rhythm with a normal S1 and S2. No gallops, murmurs, or rubs. Normal PMI, no JVD. No pulse deficits. Respiratory: Lungs have equal breath sounds bilaterally, clear to auscultation and percussion. No rales, rhonchi or wheezes noted. No increased work of breathing, no retractions or nasal flaring. Back: No spinal tenderness. No costovertebral tenderness. Full range of motion. MS/ Extremity: Pulses equal, no cyanosis. Neurovascular intact. Full, normal range of motion. Neuro: Awake and alert, GCS 15, oriented to person, place, time, and situation. Cranial nerves II-XII grossly intact. Motor strength 5/5 in all extremities. Sensory grossly intact. Cerebellar exam normal. Normal gait. 00:31 Constitutional: The patient appears alert, awake. 00:31 Eyes: Periorbital structures: are sunken, Sclera: icterus. 00:31 Abdomen/GI: Inspection: distension, that is severe, Palpation: mild abdominal tenderness, cellulitis lower abdomen. 00:31 Skin: Appearance: Color: jaundiced. Vital Signs: 01/31 21:15 BP 92 / 55; Pulse 68; Resp 20; Temp 99.4(O); Pulse Ox 95% on 3 lpm NC; Pain 10/10; aj1 22:55 BP 100 / 63; Pulse 75; Resp 24; Pulse Ox 98% ; ao 02/01 00:02 BP 94 / 66; Pulse 75; Resp 14; Pulse Ox 96% on 2 lpm NC; ao 01:05 BP 102 / 62; Pulse 72; Resp 14; Pulse Ox 99% on 2 lpm NC; ao 02:00 BP 117 / 82; Pulse 76; Resp 14; Pulse Ox 98% on 2 lpm NC; ao MDM: 01/31 21:36 Patient medically screened. 02/01 00:31 Differential diagnosis: pancreatitis, Peptic Ulcer Disease, pneumonia, sepsis, gs abdominal wall cellulitis. Data reviewed: vital signs, nurses notes. Response to treatment: the patient's symptoms have mildly improved after treatment, and as a result, I will admit patient. 01/31 21:39 Order name: Basic Metabolic Panel 01/31 21:39 Order name: Blood Culture Adult (2) 01/31 21:39 Order name: CBC with Diff; Complete Time: 23:43 01/31 21:39 Order name: Lactate; Complete Time: 23:43 01/31 21:39 Order name: LFT's; Complete Time: 23:43 01/31 21:39 Order name: Lipase; Complete Time: 23:43 01/31 21:39 Order name: Procalcitonin; Complete Time: 23:43 01/31 21:39 Order name: Protime (+inr); Complete Time: 23:43 01/31 21:39 Order name: Troponin (emerg Dept Use Only); Complete Time: 23:43 01/31 21:39 Order name: Chest Single View XRAY 01/31 21:39 Order name: AMMONIA; Complete Time: 23:43 01/31 21:40 Order name: Basic Metabolic Panel; Complete Time: 23:43 EDMS 01/31 23:54 Order name: Urine Dipstick--Ancillary (enter results); Complete Time: 00:39 01/31 23:57 Order name: CT Abd/Pelvis - Without Cont 01/31 21:39 Order name: Accucheck; Complete Time: 22:01 01/31 21:39 Order name: Cardiac monitoring; Complete Time: 22:01 01/31 21:39 Order name: EKG - Nurse/Tech; Complete Time: 22:01 01/31 21:39 Order name: IV Saline Lock - Large Bore; Complete Time: 22:22 01/31 21:39 Order name: Labs collected and sent; Complete Time: 22:23 01/31 21:39 Order name: O2 Per Protocol; Complete Time: 22:05 01/31 21:39 Order name: O2 Sat Monitoring; Complete Time: 22:05 gs 01/31 21:39 Order name: Urine Dipstick-Ancillary (obtain specimen); Complete Time: 23:51 gs Administered Medications: 01/31 22:22 Drug: Rocephin - (cefTRIAXone) 1 grams Route: IVPB; Infused Over: 30 mins; Site: left ao antecubital; 22:45 Follow up: IV Status: Completed infusion; IV Intake: 10ml ao 22:22 Drug: vancoMYCIN 1 grams Route: IVPB; Infused Over: 2 hrs; Site: left antecubital; ao 02/01 01:20 Follow up: IV Status: Completed infusion; IV Intake: 250ml ao 01/31 22:22 Drug: NS 0.9% 500 ml Route: IV; Rate: bolus; Site: left antecubital; ao 23:30 Follow up: IV Status: Completed infusion; IV Intake: 500ml ao Point of Care Testing: Blood Glucose: 22:02 Blood Glucose: 82 mg/dL; ak1 Ranges: Critical Glucose Levels:Adult <50 mg/dl or >400 mg/dl <40 mg/dl or >180 mg/dl Disposition: 02/01/18 00:38 Hospitalization ordered by Heike Parar for Inpatient Admission. Preliminary diagnosis are Fever, unspecified, Cellulitis of abdominal wall. - Bed requested for Telemetry/MedSurg (Inpatient). - Status is Inpatient Admission. ao - Condition is Stable. - Problem is an acute exacerbation. - Symptoms have improved. UTI on Admission? No Critical care time excluding procedures: 02/01 00:31 Critical care time: Bedside Care: 10 minutes, Consultation: 10 minutes, Family gs Intervention: 10 minutes. Total time: 30 minutes Signatures: Dispatcher [employer] EDMS Senia Kimble RN RN ajAlexus Escobedo RN RN kl Ortiz, Alex, RN RN ao Starr, Gregory, MD MD gs Corrections: (The following items were deleted from the chart) 01:20 00:38 Hospitalization Ordered by Heike Parra MD for Inpatient Admission. Preliminary kl diagnosis is Fever, unspecified; Cellulitis of abdominal wall. Bed requested for Telemetry/MedSurg (Inpatient). Status is Inpatient Admission. Condition is Stable. Problem is an acute exacerbation. Symptoms have improved. UTI on Admission? No. gs 02:27 01:20 02/01/2018 00:38 Hospitalization Ordered by Heike Parra MD for Inpatient ao Admission. Preliminary diagnosis is Fever, unspecified; Cellulitis of abdominal wall. Bed requested for Telemetry/MedSurg (Inpatient). Status is Inpatient Admission. Condition is Stable. Problem is an acute exacerbation. Symptoms have improved. UTI on Admission? No. kl
[2018-02-01] MEDS ORDERED: ONDANSETRON 4 MG/2 ML VIAL IV PRN (02:26)
[2018-02-01] MEDS ORDERED: ACETAMINOPHEN 500 MG TAB PO PRN (02:26)
--- NOTE | 2018-02-01 02:40 | P.HP ---
Certification for Inpatient Patient admitted to: Inpatient With expected LOS: >2 Midnights Practitioner: I am a practitioner with admitting privileges, knowledge of patient current condition, hospital course, and medical plan of care. Services: Services provided to patient in accordance with Admission requirements found in Title 42 Section 412.3 of the Code of Federal Regulations Patient History Date of Service: 02/01/18 Reason for admission: ascites, cellulitis History of Present Illness: Mr Gaines is a 57-year-old male with multiple medical problems, including alcoholic liver cirrhosis with requiring paracentesis, a fib status post pacemaker placement, anticoagulated with warfarin, who start about 4 days ago with increasing abdominal girth, lower extremity edema, lower abdominal pain. He also has had low-grade fever at home. Last paracentesis done about 1 month ago. He has mild redness and tender to palpation area in the lower abdomen. In ED the patient was alert and oriented, temperature was 99.4F, BP 94/66 laboratory work remarkable for normal WBC count, ammonia level 97, creatinine is 2.6 (more elevated than his baseline) lactate and procalcitonin within normal limits. CT abdomen and pelvis with obvious ascites. Awaiting formal radiology report. Allergies No Known Drug Allergies Allergy (Verified 06/08/17 09:19) Unknown No Known Allergies Allergy (Uncoded 09/05/16 16:15) Unknown Home medications list reviewed: Yes Home Medications: Atorvastatin Calcium [Lipitor*] 20 mg PO BEDTIME 01/02/18 Bumetanide [Bumex*] 1 mg PO DAILY 01/02/18 Carvedilol [Coreg*] 12.5 mg PO BID 01/02/18 Lactulose 10 gm PO 01/02/18 Levothyroxine [Synthroid*] 125 mcg PO [id number] 01/02/18 Midodrine HCl 10 mg PO TID 01/02/18 Pantoprazole [Protonix Tab*] 40 mg PO DAILY 01/02/18 Spironolactone [Aldactone*] 25 mg PO DAILY 01/02/18 Trazodone [Desyrel*] 50 mg PO BEDTIME 01/02/18 Warfarin Sodium [Coumadin*] 3 mg PO DAILY 5 PM 01/02/18 - Past Medical/Surgical History Diabetic: No -: CHF, systolic dysfunction, ejection fraction 41% -: CAD history of CABG -: Atrial fibrillation, chronic anti coagulation therapy-Coumadin -: COPD with home oxygen -: Hypothyroidism -: Hypertension -: Obesity -: Alcohol abuse -: Pacemaker/Defibrillator placement -: Alcoholic cirrhosis -: Anemia of chronic disease -: Obstructive sleep apnea -: CABG -: Pacemaker/Defib Psychosocial/ Personal History: The patient is . He has children. He does not work. - Family History Father -: Diabetes - Social History Smoking Status: Former smoker Alcohol use: No CD- Drugs: No Caffeine use: Yes Place of Residence: Home Review of Systems 10-point ROS is otherwise unremarkable Physical Examination - Physical Exam General: Alert, In no apparent distress, Oriented x3 HEENT: Atraumatic, PERRLA, Mucous membr. moist/pink, EOMI, Sclerae nonicteric Neck: Supple, 2+ carotid pulse no bruit, No LAD, Without JVD or thyroid abnormality Respiratory: Clear to auscultation bilaterally, Normal air movement Cardiovascular: Normal S1 S2, No gallops Gastrointestinal: Hyperactive, Distended, Ascites, Tenderness Musculoskeletal: No tenderness Integumentary: Skin lesion (desquemative skin lesion disseminated) Neurological: Normal speech, Normal strength at 5/5 x4 extr, Normal tone, Normal affect Lymphatics: No axilla or inguinal lymphadenopathy - Studies Laboratory Data (last 24 hrs) 01/31/18 22:00: PT 20.0 H, INR 1.69 01/31/18 22:00: WBC 4.3, Hgb 8.3 L, Hct 25.5 L, Plt Count 100 L 01/31/18 22:00: Sodium 132 L, Potassium 5.4 H, BUN 58 H, Creatinine 2.60 H, Glucose 80, Total Bilirubin 0.4, AST 23, ALT 13, Alkaline Phosphatase 120 H, Lipase 277 Assessment and Plan - Problems (Diagnosis) (1) Acute renal injury Onset Date: 08/17/17 Current Visit: No Status: Acute (2) Ascites Onset Date: 01/04/18 Current Visit: No Status: Acute Qualifiers: Ascites type: due to alcoholic cirrhosis Qualified Code(s): K70.31 - Alcoholic cirrhosis of liver with ascites (3) Hepatorenal failure Current Visit: No Status: Acute (4) Pacemaker Onset Date: 09/07/14 Current Visit: No Status: Acute (5) Alcoholic cirrhosis Onset Date: 01/04/18 Current Visit: No Status: Chronic Qualifiers: Ascites presence: with ascites Qualified Code(s): K70.31 - Alcoholic cirrhosis of liver with ascites (6) Atrial fibrillation Onset Date: 01/04/18 Current Visit: No Status: Chronic Qualifiers: Atrial fibrillation type: chronic Qualified Code(s): I48.2 - Chronic atrial fibrillation (7) Cellulitis Current Visit: Yes Status: Acute Qualifiers: Site of cellulitis: trunk Site of cellulitis of trunk: abdominal wall Qualified Code(s): L03.311 - Cellulitis of abdominal wall - Plan The patient will be admitted to the hospital due to severe ascites, abdominal wall cellulitis acute renal injury secondary to hepatorenal syndrome. Will order ultrasound-guided are paracentesis, start empiric antibiotic for a cellulitis and possible SBP. Consult Nephrology due to worsening hepatorenal syndrome. - Advance Directives Does patient have a Living Will: No Does patient have a Durable POA for Healthcare: No - Code Status/Comfort Care Code Status Assessed: Yes Code Status: Full Code
[2018-02-01 02:48] VITALS: BMI 30.6
[2018-02-01] MEDS ORDERED: VANCOMYCIN 1.5 GM in NA CHLORIDE 0.9% 500 ML IVPB SCH (06:00)
[2018-02-01 06:14] LABS: Absolute Lymphocytes (CBC) 0.3 K/uL (0.7-4.9); Absolute Monocytes 0.6 K/uL (0.1-1.3); Absolute Neutrophil 3.4 K/uL (1.8-8.0); Basophils % 0.3 % (0-1.3); Eosinophils % 5.9 % (0-4.4); Hematocrit 27.9 % (39.6-49.0); Lymphocytes % 6.5 % (15.3-44.8); MCH 29.8 pg (27.0-35.0); MCV 92.8 fL (80-100); Monocytes % 13.2 % (3.3-12.3)
[2018-02-01 06:27] LABS: Potassium 5.4 mmol/L (3.5-5.1)
[2018-02-01 08:04] LABS: Urine White Blood Cell Casts OK
[2018-02-01 08:05] LABS: Anisocytosis 2+; Basophilic Stippling 2+; Blood Morphology Comment NOTED (NOT SEEN); Platelet Estimate DECR; Poikilocytosis 1+
--- NOTE | 2018-02-01 08:30 | EKG ---
Test Date: 2018-01-31 Test Time: 21:50:59 Dealer Support Technician: KENYATTA MEASUREMENT RESULTS: Intervals: Rate: 71 VA: QRSD: 108 QT: 404 QTc: 439 [place]: P: VA: QRS: 79 T: -43 INTERPRETIVE STATEMENTS: Atrial fibrillation with occasional ventricular-paced complexes Inferior-posterior infarct, age undetermined ST & T wave abnormality, consider lateral ischemia Abnormal ECG Compared to ECG 11/02/2017 11:34:48 No significant changes Electronically Signed On 02-01-18 08:29:51 CDT by Bal Khan
--- NOTE | 2018-02-01 08:32 | RAD REPORT ---
EXAM DESCRIPTION: CT - Abdomen Pelvis Wo Contrast - 02/01/2018 3:43 am CLINICAL HISTORY: Abdominal pain /abdominal swelling for 4 days. COMPARISON: October 2017 TECHNIQUE: Computed axial tomography of the abdomen and pelvis was obtained. IV and oral contrast we re not requested. A preliminary report was generated by [employer] and reviewed prior to this dictation All CT scans are performed using dose optimization technique as appropriate and may include automated exposure control or mA/KV adjustment according to patient size. FINDINGS: The evaluation of solid organs, vessels and bowel is limited secondary to the lack of con trast administration. A cirrhotic liver is is again demonstrated. The heart is enlarged with dilatation of the hepatic veins and IVC. Bilateral gynecomastia is noted. The spleen, pancreas, adrenals and kidneys appear grossly normal. There is no evidence of diverticulitis. A large amount ascites is present. Diffuse edema is present within the subcutaneous tissues IMPRESSION: Cirrhosis with large amount of ascites Anasarca Marked cardiomegaly
[2018-02-01] MEDS ORDERED: CEFOTAXIME SODIUM 2 GM VIAL IV SCH (09:00)
[2018-02-01] MEDS: CEFTRIAXONE/SWI 1gm 1 GM/10 ML SYR IV SCH (09:03)
[2018-02-01] MEDS: LACTULOSE 20 GM/30 ML UCUP PO SCH ×3 (09:04→20:33)
--- NOTE | 2018-02-01 09:18 | RAD REPORT ---
EXAM DESCRIPTION: Margaret Single View01/31/2018 10:32 pm CLINICAL HISTORY: Shortness of breath COMPARISON: December 2017 FINDINGS: The heart is markedly enlarged. Mild bibasilar atelectasis is present. Pacemaker lead is in place IMPRESSION: Marked cardiomegaly
--- NOTE | 2018-02-01 13:41 | RAD REPORT ---
EXAM DESCRIPTION: US - Paracentesis Proc Guidance - 02/01/2018 12:49 pm CLINICAL HISTORY: Ascites COMPARISON: July 2017 TECHNIQUE: The patient presents for ultrasound-guided paracentesis. The procedure, risks and altern atives were discussed with the patient in detail. Oral and written consent were obtained. Time out p rocedure was performed. The patient had no contraindicated allergy or medication history. Preliminary sonographic evaluation identified right lower quadrantaccess site. The skin and deeper t issues were anesthetized with 1 percent lidocaine. Under direct sonographic visualization, a paracen tesis catheter was advanced into the peritoneal cavity. Approximately 15 mL of ascites was removed fo r requested laboratory studies.Drainage was initiated. At the conclusion of the procedure, catheter w as withdrawn and a bandage placed at the puncture site. Patient was transferred back to the floor for continued care and albumin infusion. IMPRESSION: Ultrasound-guided paracentesis was performed. Approximately 11 liters of ascites removed . Approximately 15 mL of ascites retained for requested laboratory studies.
--- NOTE | 2018-02-01 13:42 | PN ---
Date of Progress Note: 02/01/2018 Subjective: The patient seen and examined. Chart reviewed and case discussed with RN. The patient is scheduled for paracentesis, complaining of significant abdominal distention. No family at the bed side. Review of Systems: Negative except as above. Medications: List reviewed. Physical Examination: Vital Signs: Temperature 96.1, heart rate 71, blood pressure 117/74, respirations 30, O2 of 90% on 2 L via nasal cannula. General: Awake, alert, oriented x3, in some mild distress, ill-appearing male, appears older than st ated age. Obese, BMI 30. CV: S1, S2. No murmurs. Peripheral pulses present. Respiratory: Diminished breath sounds bilateral bases. No wheezing. No use of accessory muscles. Gastrointestinal: Abdomen is distended. Large ascites. Positive fluid wave. Bowel sounds positive . Extremities: No clubbing, cyanosis. The patient has lower extremity edema bilaterally. Neurologic: Nonfocal. Laboratory Data: Sodium 130, potassium 5.4, chloride 96, CO2 of 30, BUN 57, creatinine 2.6, glucose 118, calcium 8.5, ammonia 97. WBC 4.6, H and H of 9 and 27.9, platelets 96, neutrophils 74%. Blood cultures pending. Assessment And Plan: A 57-year-old male with: 1.Acute kidney injury, likely better renal syndrome. 2.Ascites due to alcoholic cirrhosis. 3.Hepatic renal syndrome. 4.Status post pacemaker. 5.Alcoholic liver cirrhosis. 6.Atrial fibrillation chronic on anticoagulation with Coumadin. Last dose according to the patient was several days ago. INR is as subtherapeutic. 7.Cellulitis of the abdominal wall. 8.Psoriasis, on immune modulating drugs. We will hold for now due to acute infection. 9.Congestive heart failure, systolic dysfunction, ejection fraction of 40%, chronic. 10.Coronary artery disease, status post coronary artery bypass grafting. [place] artery, [place] hear t without angina. 11.Chronic obstructive pulmonary disease, oxygen dependent, chronic respiratory failure. 12.Hypothyroidism. Continue levothyroxine. 13.Essential hypertension. The patient currently is normotensive. 14.Obesity, BMI of 30.6. 15.Obstructive sleep apnea. Plan: I discussed paracentesis. I will confirm with family regarding last dose of Coumadin. SA/MODL Voice ID: [id number] Report ID: [id number]
[2018-02-01] MEDS: ALBUMIN HUMAN 25% 50 ML IV SCH ×2 (14:21→20:32)
[2018-02-01] MEDS: MIDODRINE HCL 5 MG TABLET PO SCH ×2 (14:21→20:33)
[2018-02-01] MEDS ORDERED: NA CHLORIDE 0.9% 250 ML IV ONE (15:40)
[2018-02-01 16:17] LABS: Body Fluid WBC 146 /mm^3
[2018-02-01 16:34] LABS: Appearance SLT. TURBID (CLEAR); Body Fluid Source PERITONEAL; Color of fluid Yellow (COLORLESS)
[2018-02-01] MEDS: FUROSEMIDE 40 MG/4 ML VIAL IV SCH (17:00)
[2018-02-01] MEDS ORDERED: MIDODRINE HCL PO SCH (17:00)
[2018-02-01] MEDS: ATORVASTATIN 20 MG TAB PO SCH (20:33)
[2018-02-01] MEDS: CARVEDILOL 12.5 MG TAB PO SCH (20:34)
[2018-02-01] MEDS ORDERED: SOD POLYSTYREN SUL 15 GM/60 ML UCUP PO ONE (22:33)
[2018-02-01 23:50] LABS: Potassium 5.6 mmol/L (3.5-5.1)
[2018-02-02] MEDS: FUROSEMIDE 40 MG/4 ML VIAL IV SCH ×2 (00:46→09:00)
--- NOTE | 2018-02-02 02:49 | CON ---
Date of Consultation: 02/01/2018 Chief Complaint: Acute kidney injury. History Of Present Illness: Acute kidney injury, severe, associated with hyperkalemia, decreased urine output. The patient was found to have severe tense ascites. He has a history of liver cirrhosis. He presented to the hospital because of abdominal discomfort. Lab work showed sodium 132, potassium 5.4, chloride 97, CO2 31, BUN 58, creatinine 2.60, glucose 80. Renal function has not improved over last 24 hours. Potassium level remains elevated up to 5.4. The patient was taken off spironolactone. The patient was taking spironolactone for volume control and sodium balance control. The patient has severe comorbidities including liver cirrhosis. The patient presented to the hospital and was admitted for cellulitis and ascites. The patient is a 57-year-old man with multiple medical problems including alcoholic liver cirrhosis requiring paracentesis, has history of atrial fibrillation and pacemaker placement. He is on anticoagulation with Coumadin. He came to the hospital because of progressively worse abdominal distention, increasing abdominal girth, and lower extremity edema. He had some dyspnea on exertion and was complaining of palpitation as well as tenderness in the abdomen. On arrival to the hospital blood pressure was 94/66. The patient had some fatigue over last several days. He is bed bound. Creatinine was elevated up to 2.6 and ammonia level was 97. Review of Systems: Constitutional: The patient is complaining of fatigue. Denies syncope. Eyes: Denies vision changes. Ears, Nose, Mouth, and Throat: Denies sore throat or earache. Respiratory: Has dyspnea on exertion. GI: Has abdominal distention. Denies melena or hematemesis. : Denies dysuria or hematuria. Denies incomplete voiding. Extremities: Has leg edema. Denies gout. All other systems are reviewed and all are negative. Past Medical History: Congestive heart failure, systolic dysfunction, ejection fraction 41%, coronary artery disease status post CABG; atrial fibrillation, chronic; on anticoagulation with Coumadin, COPD, on home oxygen, hypothyroidism , hypertension, obesity, alcohol abuse, alcoholic liver cirrhosis, anemia of chronic disease, chronic kidney disease, cardiorenal syndrome, hepatorenal syndrome, pacemaker, defibrillator. Family History: Diabetes. Social History: Former smoker. Denies recent alcohol. Denies caffeine or IV drugs. Physical Examination: General: The patient is alert and oriented. Eyes: No hemorrhagic changes. EOMI. Neck: Supple. No JVD. No bruits. Lungs: Clear to auscultation bilaterally. Abdomen: Tense ascites. No rebound. No guarding. No flank tenderness. Extremities: Edema present in both legs. Skin: Chronic dermatitis in both legs. Palmar erythema present. Neurological: Moving extremities. No tremor. Psychiatric: The patient is lethargic. Follows command. Laboratory Data: WBC 4.3, hemoglobin 8.3, hematocrit 25.5, platelet count is 100. Sodium 132, potassium 5.4, BUN 50, creatinine 2.6, glucose 80, bilirubin 0.4, lipase 277. Assessment And Plan: 1. Liver cirrhosis, severe fluid overload, ascites. The patient will require paracentesis. 2. Hyperkalemia. The patient is taken off spironolactone. Start Lasix to control potassium level and induce diuresis to control fluid overload. The patient will have IV albumin for blood pressure support. Continue midodrine. 3. Hepatorenal syndrome. Continue midodrine, albumin, and Lasix for volemia control. 4. Cellulitis. The patient will have antibiotics. He was found cellulitis of abdominal wall. 5. Alcoholic liver cirrhosis, liver failure, hepatorenal syndrome. The patient may be a candidate for dialysis if blood pressure stable, the patient will continue midodrine for blood pressure control. MIGDALIA/MARIOLA Voice ID: [id number] Report ID: [id number] OSKAR
[2018-02-02 05:59] LABS: Absolute Lymphocytes (CBC) 0.2 K/uL (0.7-4.9); Absolute Monocytes 0.7 K/uL (0.1-1.3); Absolute Neutrophil 3.6 K/uL (1.8-8.0); Basophils % 0.4 % (0-1.3); Eosinophils % 7.7 % (0-4.4); Hematocrit 28.6 % (39.6-49.0); Lymphocytes % 3.9 % (15.3-44.8); MCH 29.8 pg (27.0-35.0); MCV 93.8 fL (80-100); MPV 8.8 fL (7.6-11.3); Monocytes % 14.2 % (3.3-12.3); RBC Red Blood Cell Count 3.05 M/uL (4.33-5.43)
[2018-02-02] MEDS ORDERED: VANCOMYCIN 1.5 GM in NA CHLORIDE 0.9% 500 ML IVPB SCH (06:00)
[2018-02-02] MEDS ORDERED: PANTOPRAZOLE 40MG TABLET PO SCH (08:00)
[2018-02-02] MEDS ORDERED: SOD POLYSTYREN SUL 15 GM/60 ML UCUP PO ONE (08:01)
[2018-02-02] MEDS: CARVEDILOL 12.5 MG TAB PO SCH (09:00)
[2018-02-02] MEDS ORDERED: BUMETANIDE 1 MG TABLET PO SCH (09:00)
[2018-02-02] MEDS ORDERED: TAMSULOSIN 0.4 MG SR CAP PO SCH (09:00)
[2018-02-02] MEDS: CEFTRIAXONE/SWI 1gm 1 GM/10 ML SYR IV SCH (09:00)
[2018-02-02] MEDS ORDERED: SPIRONOLACTONE 25 MG TABLET PO SCH (09:00)
--- NOTE | 2018-02-02 09:58 | RAD REPORT ---
EXAM DESCRIPTION: US - Urinary Bladder - 02/02/2018 9:49 am FINDINGS: Bladder is contracted. This accentuates bladder wall thickness. Volume was 4 milliliters. Accurate assessment of bladder wall cannot be made in the contracted state. No bladder calculus seen.
[2018-02-02] MEDS ORDERED: NA CHLORIDE 0.9% 1,000 ML IV SCH (10:00)
[2018-02-02] MEDS: LACTULOSE 20 GM/30 ML UCUP PO SCH ×3 (10:10→21:00)
[2018-02-02] MEDS: ALBUMIN HUMAN 25% 50 ML IV SCH ×2 (10:11→14:41)
[2018-02-02] MEDS: MIDODRINE HCL 5 MG TABLET PO SCH ×3 (10:42→20:59)
--- NOTE | 2018-02-02 14:24 | P.DS ---
Admission Date: 02/01/18 Discharge Date: 02/02/18 Disposition: HOSPICE-HOME Discharge Condition: FAIR Reason for Admission: ascites, cellulitis - Problems (1) Cellulitis Onset Date: 02/02/18 Current Visit: Yes Status: Acute Qualifiers: Site of cellulitis: trunk Site of cellulitis of trunk: abdominal wall Qualified Code(s): L03.311 - Cellulitis of abdominal wall (2) Hepatorenal failure Onset Date: 02/02/18 Current Visit: Yes Status: Acute (3) Ascites Onset Date: 01/04/18 Current Visit: No Status: Acute Qualifiers: Ascites type: due to alcoholic cirrhosis Qualified Code(s): K70.31 - Alcoholic cirrhosis of liver with ascites (4) Dyspnea Onset Date: 01/04/18 Current Visit: No Status: Acute (5) Edema Onset Date: 06/08/17 Current Visit: No Status: Acute Qualifiers: Edema type: unspecified Qualified Code(s): R60.9 - Edema, unspecified (6) Pacemaker Onset Date: 09/07/14 Current Visit: No Status: Acute (7) Renal insufficiency Onset Date: 06/08/17 Current Visit: No Status: Acute (8) Alcoholic cirrhosis Onset Date: 01/04/18 Current Visit: No Status: Chronic Qualifiers: Ascites presence: with ascites Qualified Code(s): K70.31 - Alcoholic cirrhosis of liver with ascites (9) CHF (congestive heart failure) Onset Date: 06/08/17 Current Visit: No Status: Chronic Qualifiers: Heart failure type: systolic Heart failure chronicity: chronic Qualified Code(s): I50.22 - Chronic systolic (congestive) heart failure (10) COPD (chronic obstructive pulmonary disease) Onset Date: 01/04/18 Current Visit: No Status: Chronic Qualifiers: COPD type: chronic bronchitis Chronic bronchitis type: mixed simple and mucopurulent Qualified Code(s): J41.8 - Mixed simple and mucopurulent chronic bronchitis Brief History of Present Illness: Mr Gaines is a 57-year-old male with multiple medical problems, including alcoholic liver cirrhosis with requiring paracentesis, a fib status post pacemaker placement, anticoagulated with warfarin, who start about 4 days ago with increasing abdominal girth, lower extremity edema, lower abdominal pain. He also has had low-grade fever at home. Last paracentesis done about 1 month ago. He has mild redness and tender to palpation area in the lower abdomen. In ED the patient was alert and oriented, temperature was 99.4F, BP 94/66 laboratory work remarkable for normal WBC count, ammonia level 97, creatinine is 2.6 (more elevated than his baseline) lactate and procalcitonin within normal limits. CT abdomen and pelvis with obvious ascites. Awaiting formal radiology report. Hospital Course: He underwent therapeutic paracentesis with remvoing 11L clear fluid. He feels much better after paracentesis. His K was corrected. He is discahrged home with continuing hospice. He may need a pleurax cath next time. Vital Signs/Physical Exam: Temp Pulse Resp BP Pulse Ox 96.9 F 62 24 H 83/46 L 100 02/02/18 12:00 02/02/18 12:00 02/02/18 12:00 02/02/18 12:00 02/02/18 12:00 General: Alert, In no apparent distress HEENT: Atraumatic, PERRLA, EOMI Neck: Supple, JVD not distended Respiratory: Clear to auscultation bilaterally, Normal air movement Cardiovascular: Regular rate/rhythm, Normal S1 S2 Gastrointestinal: Normal bowel sounds, No tenderness, Ascites Musculoskeletal: No tenderness Integumentary: No rashes Neurological: Normal speech, Normal tone, Normal affect Lymphatics: No axilla or inguinal lymphadenopathy Laboratory Data at Discharge: WBC 4.9 K/uL (4.3-10.9) 02/02/18 05:30 Hgb 9.1 g/dL (13.6-17.9) L 02/02/18 05:30 Hct 28.6 % (39.6-49.0) L 02/02/18 05:30 Plt Count 94 K/uL (152-406) L 02/02/18 05:30 PT 20.0 SECONDS (9.5-12.5) H 01/31/18 22:00 INR 1.69 01/31/18 22:00 Sodium 133 mmol/L (136-145) L 02/02/18 05:30 Potassium 5.0 mmol/L (3.5-5.1) 02/02/18 05:30 BUN 61 mg/dL (7-18) H 02/02/18 05:30 Creatinine 3.10 mg/dL (0.55-1.3) H 02/02/18 05:30 Glucose 102 mg/dL (74-106) 02/02/18 05:30 Total Bilirubin 0.4 mg/dL (0.2-1.0) 01/31/18 22:00 AST 23 U/L (15-37) 01/31/18 22:00 ALT 13 U/L (12-78) 01/31/18 22:00 Alkaline Phosphatase 120 U/L (45-117) H 01/31/18 22:00 Lipase 277 U/L (73-393) 01/31/18 22:00 Home Medications: Apremilast [Otezla] 1 tab PO BID 02/01/18 Bumetanide 1 tab PO DAILY 02/01/18 Carvedilol 1 tab PO BID 02/01/18 Midodrine HCl 1 tab PO TIDWM 02/01/18 Pantoprazole Sodium 1 tab PO DAILY WITH BREAKFAST 02/01/18 Spironolactone 1 tab PO DAILY 02/01/18 Tamsulosin [Flomax*] 1 cap PO DAILY 02/01/18 Warfarin Sodium 3 mg PO 1700 02/01/18 Midodrine HCl [Proamatine*] 10 mg PO TID tab 02/02/18 Diet: Low sodium Time spent managing pt's care (in minutes): 35
[2018-02-02 20:09] VITALS: TEMP 96
[2018-02-02] MEDS: ATORVASTATIN 20 MG TAB PO SCH (21:00)
[2018-02-02] MEDS ORDERED: CARVEDILOL 3.125 MG TAB PO SCH (21:00)
[2018-02-02 23:18] VITALS: BP 86/49
[2018-02-02 23:27] VITALS: O2SAT 94
--- NOTE | 2018-02-03 02:56 | PN ---
Date of Progress Note: 02/02/2018 Subjective: The patient is doing better. No nausea. No vomiting. Physical Examination: Vital Signs: Blood pressure 186/45, pulse of 70. Chest: Faint crackles in the base. Heart: S1, S2. Regular. Abdomen: Soft, ascites. Extremities: A +1 edema. Laboratory Data: H and H 9.1/28.6, sodium 133, potassium 5, bicarb 29, BUN 61, creatinine 3.1, and c alcium 8.2. Assessment And Plan: 1.Acute kidney injury secondary to hepatorenal and cardiorenal, looked to me on the dry side. I am going to discontinue Lasix. We will start the patient on gentle hydration and we will monitor. 2.Hyperkalemia secondary to renal failure. We will give cocktail and we will start hydrating. 3.Ascites, status post paracentesis by primary. 4.Cirrhosis and congestive heart failure. We will try to establish better volume control. The [place] ent is planned for hospice. We will sign off. Call us as needed. DANITZA Voice ID: [id number] Report ID: [id number]
== END 2018-02-02 21:15 | disposition hospice, home (50) | DRG 432 ==
LOC: ER 21:02 → ERHOLD 02-01 00:38 → 4TH 02-01 02:05
PROVIDERS: ADMIT Internal Medicine; ATTEND Internal Medicine Hematology & Oncology
PROC: 0W9G3ZX Drainage of Peritoneal Cavity, Percutaneous Approach, Diagnostic (ICD-10-PCS; principal; 2018-02-01)
DX: K70.31 Alcoholic cirrhosis of liver with ascites (principal); K76.7 Hepatorenal syndrome; N17.9 Acute kidney failure, unspecified; L03.311 Cellulitis of abdominal wall; I50.22 Chronic systolic (congestive) heart failure; J96.10 Chronic respiratory failure, unspecified whether with hypoxia or hypercapnia; I13.0 Hypertensive heart and chronic kidney disease with heart failure and stage 1 through stage 4 chronic kidney disease, or unspecified chronic kidney disease; I48.2 Chronic atrial fibrillation; E66.9 Obesity, unspecified; L40.9 Psoriasis, unspecified; I25.10 Atherosclerotic heart disease of native coronary artery without angina pectoris; E03.9 Hypothyroidism, unspecified; G47.33 Obstructive sleep apnea (adult) (pediatric); E87.5 Hyperkalemia; D63.8 Anemia in other chronic diseases classified elsewhere; N18.9 Chronic kidney disease, unspecified; J44.9 Chronic obstructive pulmonary disease, unspecified; Z99.81 Dependence on supplemental oxygen; Z68.30 Body mass index [BMI] 30.0-30.9, adult; Z79.01 Long term (current) use of anticoagulants; Z95.1 Presence of aortocoronary bypass graft; Z74.01 Bed confinement status; Z95.810 Presence of automatic (implantable) cardiac defibrillator; Z87.891 Personal history of nicotine dependence
CPT/HCPCS: 36415; 49083; 71045; 74176; 76857; 80048; 80076; 80202; 81003; 82140; 82962; 83605; 83690; 84145; 84484; 85025; 85610; 87040; 87070; 89050; 93005; 96365; 96366; 96368; 99285; J0696; J0698; J3370; J7030; P9047